=== PATIENT | female | born 1955 | race Caucasian/White ===

== ENCOUNTER 2017-01-24 05:42 | Outpatient (CLI) | payer MEDICARE ==
[~2017-01-24] VITALS: Ht 165.1 cm; Wt 94.8 kg
[~2017-01-24 05:42] MED LIST: ADAL40PE INJ; ALPR1TAB7 PO; ALPR2TAB2 PO; AMOX500C2 PO; AMOX500T2 PO; AMPH30TA2 PO; ATOR20TA66 PO; Acetaminophen PO; BUPR150T7 PO; BUPR150T9 PO; CANA100T PO; CEPH500C PO; DEXT30TA12 PO; DICL75TA2 PO; HCT25T PO; HYDR-3812 PO; HYDR-3874 PO; HYDR1CAP2 PO; INSU100I14 SQ; INSU100I16 SQ; INSU100I29 SQ; LISI10TA2 PO; LISINOPRIL; MELO-195 PO; MULT-974 PO; NEOM10DR20 EACH EAR; NOVLOG; NS.65NA45; OXYC-197 PO; POTA99TA15 PO; SULF1TAB38 PO; TRAM50TA2 PO; TRM50T PO; VENL75TA6 PO; [UNRECOGNIZED DRUG - OTHER]
[2017-01-24] MEDS ORDERED: AMPH20TA2 PO (12:55)
[2017-01-24] MEDS ORDERED: ASCO1CAP4 PO (13:02)
[2017-01-24] MEDS ORDERED: GLUC-144 PO (13:02)
[2017-01-24] MEDS ORDERED: ESCI10TA PO (13:02)
[2017-01-24] MEDS ORDERED: LACT1CAP62 PO (13:02)
[2017-01-24] MEDS ORDERED: VIT1CAPS44 PO (13:02)
== END 2017-01-24 13:04 ==
LOC: PREOP 05:42
PROVIDERS: ATTEND Surgery Pediatric Surgery
DX: Z01.818 Encounter for other preprocedural examination (principal); K21.9 Gastro-esophageal reflux disease without esophagitis; R19.5 Other fecal abnormalities

== ENCOUNTER 2017-01-26 10:28 | Day surgery (SDC) | payer MEDICARE ==
[~2017-01-26] VITALS: Ht 165.1 cm; Wt 94.8 kg
[~2017-01-26 10:28] MED LIST changes: +AMPH20TA2 PO; +ASCO1CAP4 PO; +ESCI10TA PO; +GLUC-144 PO; +LACT1CAP62 PO; +VIT1CAPS44 PO
[2017-01-26 10:35] VITALS: BP 135/68
[2017-01-26] MEDS ORDERED: FLUMAZENIL (ROMAZICON) 0.1 MG/ML 5 ML VIAL INJ PRN (10:45)
[2017-01-26] MEDS ORDERED: HURRICAINE EXT TUBE (BENZOCAINE) XX PRN (10:45)
[2017-01-26] MEDS ORDERED: LIDOCAINE JELLY 2% (XYLOCAINE) 5 ML TUBE MM PRN (10:45)
[2017-01-26] MEDS ORDERED: NALOXONE 0.4 MG/ML 1 ML (NARCAN) VIAL IVP PRN (10:45)
[2017-01-26] MEDS ORDERED: NS IV 500 ML 500 ML IV PRN (10:50)
--- NOTE | 2017-01-26 11:18 | Conscious Sedation/ASA ---
Conscious Sedation Pre-Proced Time Reviewed: 11:00 ASA Class: 3 Airway Mallampati Classification: (big sandy appropriate class) I. II. III, IV Lungs Heart ASA score ASA 1: a normal healthy patient ASA 2: a patient with a mild systemic disease (mid diabetes, controlled hypertension, obesity ASA 3: a patient with a severe systemic disease that limits activity (angina , COPD, prior Myocardial infarction) ASA 4: a patient with an incapacitating disease that is a constant threat to life (CHF, renal failure) ASA 5: a moribund patient not expected to survive 24 hrs. (ruptured aneurysm) ASA 6: a declared brain patient whose organs are being harvested. For emergent operations, add the letter E after the classification Grade 3 Sedation Plan: Analgesia, Amnesia, Plan communicated to team members, Discussed options with patient/fam, Discussed risks with patient/fam Note The patient is an appropriate candidate to undergo the planned procedure, sedation, and anesthesia. The patient immediately re-assessed prior to indication. PATRICA LARSON MD Jan 26, 2017 11:18 am
--- NOTE | 2017-01-26 11:18 | Progress Note-Pre Operative ---
Pre-Operative Progress Note H&P Reviewed The H&P was reviewed, patient examined and no changes noted. Date H&P Reviewed: Jan 26, 2017 Time H&P Reviewed: 11:00 Pre-Operative Diagnosis: dysphagia, dark tarry stools PATRICA LARSON MD Jan 26, 2017 11:18 am
[2017-01-26] MEDS ORDERED: fentaNYL INJECTION 100 MCG/2 ML AMP ONE ×2 (11:28→11:29)
[2017-01-26] MEDS ORDERED: LIDOCAINE JELLY 2% (XYLOCAINE) 5 ML TUBE ONE (11:28)
[2017-01-26] MEDS ORDERED: MIDAZOLAM 2 MG/2 ML (VERSED) VIAL ONE ×5 (11:29)
[2017-01-26] MEDS ORDERED: HURRICAINE EXT TUBE (BENZOCAINE) ONE (11:29)
[2017-01-26] MEDS ORDERED: HYDROcodone/APAP 5 MG/325 MG (LORTAB) TAB PO PRN (11:30)
[2017-01-26] MEDS ORDERED: ONDANSETRON 4 MG/2 ML (SDV) Z0FRAN IV PRN (11:30)
[2017-01-26] MEDS ORDERED: ACETAMINOPHEN 325 MG TABLET/CAPLET (TYLENOL) PO PRN (11:30)
[2017-01-26] MEDS ORDERED: morphine INJ 10 MG/ML 1ML (SYR OR VIAL) IV PRN (11:30)
[2017-01-26] MEDS: MIDAZOLAM 2 MG/2 ML (VERSED) VIAL IVP PRN ×5 (12:16→12:40)
[2017-01-26] MEDS: fentaNYL INJECTION 100 MCG/2 ML AMP IVP PRN ×4 (12:17→12:39)
--- NOTE | 2017-01-26 13:16 | Progress Note-Post Operative ---
Post-Operative Progess Note Surgeon (s)/Promotions Intern (s) Surgeon PATRICA LARSON MD Promotions Intern: none Pre-Operative Diagnosis dysphagia, dark tarry stools Post-Operative Diagnosis reflux esophagitis(class B-C), normal gastrogastric anastomosis, moderate gastritis. chronic stage 2 ext and int hemorrhoids. Post-Op Procedure Note Date of Procedure: Jan 26, 2017 Name of Procedure Performed: EGD with bx. Colonoscopy. Description of the Procedure: EGD with bx. Colonoscopy. Findings of the Procedure . Anesthesia Type CS Estimated blood loss (mL): minimal Specimen(s) collected/removed GE jxn, antrum PATRICA LARSON MD Jan 26, 2017 1:16 pm
[2017-01-26] MEDS ORDERED: PANT40TA2 PO (13:17)
--- NOTE | 2017-01-26 13:17 | Discharge Inst-Surgical ---
D/C Lap Instructions-KIDO New, Converted, or Re-Newed RX: RX on Chart Follow Up PRN Activity as tolerated High Fiber Diet 25g or more per day Avoid Alcohol, Caffeine, Spicy [place] and Acid foods. Drink 64 fluid oz or more of fluids per day. Symptoms to Report: Fever over 101 degree F, Nausea/Vomiting If any problems/questions: Contact your physician or go to Emergency Room PATRICA LARSON MD Jan 26, 2017 1:17 pm
[2017-01-26 13:25] VITALS: BP 125/73
[2017-01-26 13:55] VITALS: BP 139/79
[2017-01-26 13:57] VITALS: BP 139/79
--- NOTE | 2017-01-27 06:47 | OPERATIVE REPORT ---
PROCEDURE PHYSICIAN: PATRICA LARSON DATE OF PROCEDURE: 01/26/2017 ATTENDING PRIMARY CARE PHYSICIAN: Dr. Bruce Carcamo. PREOPERATIVE DIAGNOSES: 1. Gastroesophageal reflux disease. 2. Dysphagia. 3. Dark tarry stools. POSTOPERATIVE DIAGNOSES: EGD: 1. Chronic between class B and C reflux esophagitis. 2. Normal-appearing gastrogastric anastomosis with no marginal ulcers. 3. Moderate severity gastritis at the antrum of the stomach, no active bleeding. COLONOSCOPY: 1. Chronic, stage II external and internal hemorrhoids. 2. The remainder of the rectum and colon were normal. PROCEDURES: 1. EGD with biopsy. 2. Colonoscopy. SURGEON: Dr. Larson. ANESTHESIA: Conscious sedation. ESTIMATED BLOOD LOSS: Minimal. FINDINGS: EGD: 1. Reflux esophagitis, between class B and C. 2. Normal gastrogastric anastomosis with no marginal ulcerations, as well as no active bleeding. 3. There was a moderate severity gastritis at the antrum. 4. No formal ulcers or any active bleeding. 5. Biopsy was taken of the stomach antrum, with forceps with visualization of good hemostasis. EGD: The endoscope was then advanced through the pylorus and first and second portions of duodenum which appeared normal with no distal obstructions. The endoscope was then slowly withdrawn while taking second look and suctioning residual air with no additional findings. The patient tolerated this portion the procedure well. The EGD did not show any marginal ulcerations or any strictures and we feel that her dysphagia and symptoms are likely secondary to lifestyle and she needs to proceed with the necessary changes including smaller, more frequent meals, avoidance of eating at night, as well as head elevation while laying supine. Also weight management strategies would also help her symptoms. We will also start her on Protonix 40 mg daily. COLONOSCOPY: Under the same conscious sedation anesthesia, we then proceeded with the colonoscopy portion the procedure. A digital rectal examination was performed, which revealed chronic, stage II external and internal hemorrhoids, not actively edematous or inflamed and no bleeding. Normal sphincter tone was felt and there were no palpable masses. The endoscope was then intubated into the anus and the rectum gently insufflated. The endoscope was then advanced through the valves of Cordero the rectum with no polyps or any neoplasms identified. We then proceeded through the sigmoid colon where no diverticulosis identified. The endoscope was advanced through the remainder of the descending, transverse, and ascending colon to the cecum. These segments were normal as well. There were no polyps or any neoplasms identified, as well as no bleeding sources or any inflammation. The endoscope was then slowly withdrawn while taking a second look and suctioning residual air with no additional findings. The patient tolerated this portion the procedure well. We will have her continue with medical management with a high fiber diet with at least 25 to 30 grams of fiber per day, as well as a minimum was 64 fluid ounces of water daily to promote soft stools on a daily basis. Job ID: [id number] Dictated Date: 01/26/2017 13:09:07 Machine Stone Polisher Date: 01/27/2017 06:39:27 / darien
--- OUTSIDE RECORDS SUMMARY | 2017-02-20 04:18 | XMS REPORT ---
Author CAROLINA Berumen [facility] eClinicalWorks Address Unknown Phone Unavailable Care Team Providers Care Hydro Excavation Operator Name Role Phone CAROLINA BEAVER CP Unavailable Allergies, Adverse Reactions, Alerts Substance Reaction Event Type Methylphenidate twitching Drug Allergy Byetta 5 MCG Pen stomach upset Drug Allergy Bactrim hallucinations Drug Allergy Problems Problem Type Condition ICD-9 Code Onset Dates Condition Status Problem Ulcer of other part of foot 707.15 Active Problem Need for prophylactic vaccination and inoculation, Influenza V04.81 Active Problem Essential hypertension, benign 401.1 Active Problem DM w/o complication type II 250.00 Active Problem Encounter for long-term (current) use of other medications V58.69 Active Problem PAD (peripheral artery disease) 443.9 Active Problem Acute sinusitis, unspecified 461.9 Active Problem Adjustment disorder with depressed mood 309.0 Active Problem DTAP TEST V06.1 Active Problem Impacted cerumen 380.4 Active Assessment PAD (peripheral artery disease) 443.9 Active Assessment Dyspepsia 536.8 Active Problem Unspecified conductive hearing loss 389.00 Active Problem Pain in or around eye 379.91 Active Assessment DM w/o complication type II 250.00 Active Problem Major depressive disorder, recurrent episode, in partial or unspecified remission 296.35 Active Problem Other psoriasis 696.1 Active Problem Major depressive disorder, recurrent episode, severe, without mention of psychotic behavior 296.33 Active Medications Medication Code System Code Instructions Start Date End Date Status Dosage Sklice [facility] [address]-44 0.5 % Externally May 13, 2015 as directed Invokana [facility] [address]-99 100 mg December 30, 2014 1 Tablet by Oral route 1 time per day Wellbutrin XL [facility] [address]-39 150 MG Orally Once a day take one tab daily X one week, then 2 tabs daily May 13, 2015 2 tablet in the morning NovoLog Flexpen [facility] [address]-52 100 unit/mL Oct 29, 2014 inject 10 Units by Subcutaneous route before meals 3 times per day Adderall [facility] [address]-28 30 MG Orally 2 times a day for ADHD January 13, 2015 1 tablet Lipitor [facility] [address]-82 20 mg March 14, 2014 1 tablet by Oral route 1 time per day Metformin HCl [facility] 73520613182 500 MG TAKE ONE TABLET BY MOUTH TWICE DAILY WITH FOOD Levsin/SL [facility] [address]-27 0.125 MG Sublingual 3 times a day March 17, 2015 1 tablet under the tongue and allow to dissolve before meals as needed Zantac 150 Maximum Strength [facility] [address]-47 150 MG Orally Twice a day Jun 23, 2015 1 tablet Levemir Flexpen [facility] 0 100 unit/mL (3 mL) Oct 29, 2014 33 Unit by Subcutaneous route 1 time per day Xanax [facility] [address]-28 1 MG Orally Twice a day March 17, 2015 1 tablet Tramadol HCl [facility] [address]-56 50 MG Orally every 6 hrs TAKE ONE TABLET BY MOUTH EVERY 6 HOURS NEEDED FOR PAIN Lisinopril [facility] 42383640317 10 MG TAKE ONE TABLET BY MOUTH ONCE DAILY (MUST HAVE APPOINTMENT FOR ADDITIONAL REFILLS) Procedures Procedure Coding System Code Date [facility] VISIT ESTABLISHED PATIENT CPT-4 G0467 Jun 23, 2015 Office Visit, Est Pt., Level 4 CPT-4 87661 Jun 23, 2015 GLYCATED HEMOGLOBIN TEST CPT-4 88109 Jun 23, 2015 Vital Signs Date/Time: Jun 23, 2015 Temperature 97.9 F Weight 226.8 lbs Height 65 in BMI 37.74 Index Blood Pressure Diastolic 76 mmHg Blood Pressure Systolic 124 mmHg Cardiac Monitoring Heart Rate 100 bpm Results Name Result Date Reference Range Unit Abnormality Flag A1C (IN HOUSE) Summary Purpose eClinicalWorks Submission
--- OUTSIDE RECORDS SUMMARY | 2017-02-20 04:19 | XMS REPORT ---
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
--- OUTSIDE RECORDS SUMMARY | 2017-02-20 04:19 | XMS REPORT ---
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
--- OUTSIDE RECORDS SUMMARY | 2017-02-20 04:19 | XMS REPORT ---
Author Author WELLINGTON CLINE Organization eClinicalWorks Address Unknown Phone Unavailable Care Team Providers Care Power Distributor Name Role Phone WELLINGTON CLINE Unavailable Allergies No Known Allergies Problems Problem Type Condition Code Onset Dates Condition Status Problem Impacted cerumen 380.4 Active Problem Encounter for long-term (current) use of other medications V58.69 Active Problem DTAP TEST V06.1 Active Problem Tobacco abuse Z72.0 Active Problem Major depressive disorder, recurrent episode, unspecified severity F33.9 Active Problem Psoriasis L40.9 Active Problem PAD (peripheral artery disease) 443.9 Active Problem DM w/o complication type II 250.00 Active Problem Generalized anxiety disorder F41.1 Active Problem Diabetes E11.9 Active Problem Other psoriasis 696.1 Active Problem Unspecified conductive hearing loss 389.00 Active Problem Essential hypertension, benign 401.1 Active Problem Need for prophylactic vaccination and inoculation, Influenza V04.81 Active Problem Pain in or around eye 379.91 Active Problem Adjustment disorder with depressed mood 309.0 Active Problem Ulcer of other part of foot 707.15 Active Problem Acute sinusitis, unspecified 461.9 Active Medications Medication Code System Code Instructions Start Date End Date Status Dosage Adderall [facility] [address]-13 30 MG Orally 2 times a day for ADHD 1 tablet Xanax [facility] [address]-48 1 MG Orally Twice a day 1 tablet Results No Known Results Summary Purpose eClinicalWorks Submission
--- OUTSIDE RECORDS SUMMARY | 2017-02-20 04:19 | XMS REPORT ---
Author Author LAURA MOSHER Organization eClinicalWorks Address Unknown Phone Unavailable Care Team Providers Care Machinist 2Nd Shift Name Role Phone LAURA MOSHER CP Unavailable Allergies No Known Allergies Problems Problem Type Condition Code Onset Dates Condition Status Problem Diabetes E11.9 Active Problem Major depressive disorder, recurrent episode, unspecified severity F33.9 Active Problem Generalized anxiety disorder F41.1 Active Problem long-term 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 Active Problem Arthritis M19.90 Active Problem Type 2 diabetes mellitus with hyperglycemia E11.65 Active Problem Psoriasis L40.9 Active Problem Tobacco abuse Z72.0 Active Problem Back pain M54.9 Active Problem 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 I10 Active Medications Medication Code System Code Instructions Start Date End Date Status Dosage Alprazolam [facility] [address]-55 1 MG Orally 4 times daily as needed March 11, 2016 1 tablet Results No Known Results Summary Purpose eClinicalWorks Submission
--- OUTSIDE RECORDS SUMMARY | 2017-02-20 04:19 | XMS REPORT ---
Author Author LAURA MOSHER [facility] eClinicalWorks Address Unknown Phone Unavailable Care Team Providers Care Plastic Welding Machine Operator Name Role Phone LAURA MOSHER CP Unavailable Allergies No Known Allergies Problems Problem Type Condition Code Onset Dates Condition Status Problem Diabetes E11.9 Active Problem Major depressive disorder, recurrent episode, unspecified severity F33.9 Active Problem Generalized anxiety disorder F41.1 Active Problem [facility] 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 Active Problem Arthritis M19.90 Active Problem Type 2 diabetes mellitus with hyperglycemia E11.65 Active Problem Psoriasis L40.9 Active Problem Tobacco abuse Z72.0 Active Problem Back pain M54.9 Active Problem 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 I10 Active Medications Medication Code System Code Instructions Start Date End Date Status Dosage Adderall [facility] 82463764554 30 MG Orally Once a day 1 tablet Results No Known Results Summary Purpose eClinicalWorks Submission
--- OUTSIDE RECORDS SUMMARY | 2017-02-20 04:19 | XMS REPORT ---
Author Author LAURA MOSHER [facility] Address [address] [place] [address] Care Team Providers Care Supply Requirements Officer Name Role Phone LAURA MOSHER Unavailable PROBLEMS Type Condition ICD9-CM Code TLT61-MI Code Onset Dates Condition Status SNOMED Code Problem Diabetes E11.9 Active 40422535 Problem Major depressive disorder, recurrent episode, unspecified severity F33.9 Active 80610931 Problem Generalized anxiety disorder F41.1 Active 22708531 Problem termite control representative 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 Active 880259572 Problem Arthritis M19.90 Active 4472136 Problem Psoriasis L40.9 Active 2146719 Problem Tobacco abuse Z72.0 Active 13305178 Problem Back pain M54.9 Active 232739943 Problem 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 I10 Active 84305145 ALLERGIES Unknown Allergies SOCIAL HISTORY No smoking Hx information available PLAN OF CARE VITAL SIGNS MEDICATIONS Medication Instructions Dosage Frequency Start Date End Date Duration Status Adderall 30 MG Orally. will refill after appt 07/22/2016 Once a day 1 tablet 24h Active RESULTS No Results PROCEDURES No Known procedures IMMUNIZATIONS No Known Immunizations
--- OUTSIDE RECORDS SUMMARY | 2017-02-20 04:19 | XMS REPORT ---
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 Active Problem Arthritis M19.90 Active Problem Type 2 diabetes mellitus with hyperglycemia E11.65 Active Problem Psoriasis L40.9 Active Problem Tobacco abuse Z72.0 Active Problem Back pain M54.9 Active Problem 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 I10 Active Medications Medication Code System Code Instructions Start Date End Date Status Dosage Alprazolam [facility] [address]-25 1 MG Orally 4 times daily as needed March 11, 2016 1 tablet Tramadol HCl [facility] [address]-93 50 mg Orally, bubble pack for long term every 6 hrs 1 tablet Percocet [facility] [address]-25 5-325 MG Orally, long term pt every 4 April 1 tablet Results No Known Results Summary Purpose eClinicalWorks Submission
--- OUTSIDE RECORDS SUMMARY | 2017-02-20 04:19 | XMS REPORT ---
Author Author WELLINGTON CLINE [facility] eClinicalWorks Address Unknown Phone Unavailable Care Team Providers Care Helicopter Dispatcher Name Role Phone WELLINGTON CLINE CP Unavailable Allergies, Adverse Reactions, Alerts Substance Reaction Event Type Methylphenidate twitching Drug Allergy Byetta 5 MCG Pen stomach upset Drug Allergy Bactrim hallucinations Drug Allergy Problems Problem Type Condition Code Onset Dates Condition Status Problem Adjustment disorder with depressed mood 309.0 Active Problem Impacted cerumen 380.4 Active Problem Acute sinusitis, unspecified 461.9 Active Problem Generalized anxiety disorder F41.1 Active Problem Diabetes E11.9 Active Problem Major depressive disorder, recurrent episode, unspecified severity F33.9 Active Problem Encounter for long-term (current) use of other medications V58.69 Active Problem DTAP TEST V06.1 Active Problem PAD (peripheral artery disease) 443.9 Active Problem DM w/o complication type II 250.00 Active Assessment Generalized anxiety disorder F41.1 Active Assessment Major depressive disorder, recurrent, moderate F33.1 Active Assessment Attention-deficit hyperactivity disorder, combined type F90.2 Active Problem Pain in or around eye 379.91 Active Problem Ulcer of other part of foot 707.15 Active Problem Other psoriasis 696.1 Active Problem Essential hypertension, benign 401.1 Active Problem Unspecified conductive hearing loss 389.00 Active Problem Need for prophylactic vaccination and inoculation, Influenza V04.81 Active Medications Medication Code System Code Instructions Start Date End Date Status Dosage Xanax [facility] [address]-63 1 MG Orally 4 times a day 1 tablet Rexulti [facility] [address]-84 0.5 MG Orally Once a day Oct 14, 2015 1 tablet Lisinopril [facility] 01729669038 10 MG TAKE ONE TABLET BY MOUTH ONCE DAILY (MUST HAVE APPOINTMENT FOR ADDITIONAL REFILLS) Levsin/SL [facility] 79265356486 0.125 MG Sublingual 3 times a day 1 tablet under the tongue and allow to dissolve before meals as needed Zantac 150 Maximum Strength [facility] [address]-92 150 MG Orally Twice a day Jun 23, 2015 1 tablet Adderall [facility] [address]-45 30 MG Orally 2 times a day for ADHD Dr Carcamo to sign for Samantha 1 tablet Wellbutrin XL [facility] [address]-29 150 MG Orally Once a day take one tab daily X one week, then 2 tabs daily 2 tablet in the morning Tramadol HCl [facility] [address]-66 50 MG Orally every 6 hrs TAKE ONE TABLET BY MOUTH EVERY 6 HOURS NEEDED FOR PAIN NovoLog Flexpen [facility] [address]-78 100 UNIT/ML Oct 29, 2014 inject 10 Units by Subcutaneous route before meals 3 times per day Procedures Procedure Coding System Code Date Psych diagnostic evaluation w/medical services, established patient CPT-4 69690 Oct 14, 2015 [facility] VISIT MENTAL HEALTH ESTAB PT CPT-4 G0470 Oct 14, 2015 Vital Signs Date/Time: Oct 14, 2015 Cardiac Monitoring Heart Rate 80 bpm Weight 226.0 lbs Height 65 in BMI 37.60 Index Blood Pressure Diastolic 74 mmHg Blood Pressure Systolic 126 mmHg Results No Known Results Summary Purpose eClinicalWorks Submission
--- OUTSIDE RECORDS SUMMARY | 2017-02-20 04:19 | XMS REPORT ---
Author Author LAURA MOSHER Organization eClinicalWorks Address Unknown Phone Unavailable Care Team Providers Care Resin Painter Name Role Phone LAURA MOSHER Unavailable Allergies No Known Allergies Problems Problem Type Condition Code Onset Dates Condition Status Problem Diabetes E11.9 Active Problem Major depressive disorder, recurrent episode, unspecified severity F33.9 Active Problem Generalized anxiety disorder F41.1 Active Problem occupational health manager 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 Active Problem Arthritis M19.90 Active Problem Type 2 diabetes mellitus with hyperglycemia E11.65 Active Problem Psoriasis L40.9 Active Problem Tobacco abuse Z72.0 Active Problem Back pain M54.9 Active Problem 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 I10 Active Medications Medication Code System Code Instructions Start Date End Date Status Dosage Adderall [facility] [address]-38 20 mg Orally Once a day Aug 26, 2016 1 tablet in the morning Results No Known Results Summary Purpose eClinicalWorks Submission
--- OUTSIDE RECORDS SUMMARY | 2017-02-20 04:19 | XMS REPORT ---
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 Active 920178643 Problem Arthritis M19.90 Active 9019838 Problem Psoriasis L40.9 Active 8769966 Problem Tobacco abuse Z72.0 Active 56463348 Problem Back pain M54.9 Active 185052487 Problem 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 I10 Active 60763235 ALLERGIES Substance Reaction Event Type Date Status Methylphenidate twitching Drug Allergy Jul, Active Byetta 5 MCG Pen stomach upset Drug Allergy Jul, Active SOCIAL HISTORY No smoking Hx information available PLAN OF CARE VITAL SIGNS Height 65 in 2016-07-12 Weight 223.4 lbs 2016-07-12 Heart Rate 84 bpm 2016-07-12 Respiratory Rate 20 2016-07-12 BMI 37.17 kg/m2 2016-07-12 Blood pressure systolic 131 mmHg 2016-07-12 Blood pressure diastolic 80 mmHg 2016-07-12 MEDICATIONS Medication Instructions Dosage Frequency Start Date End Date Duration Status Adderall 30 MG Orally Once a day 1 tablet 24h Active Alprazolam 1 MG Orally 4 times daily as needed 1 tablet February, Active Escitalopram Oxalate 10 MG Orally Once a day 1 tablet 24h May, 30 day(s) Active Wellbutrin XL 150 MG Orally, bubble pack for residential Once a day 2 tablets in the morning and 1 tablet early afternoon 24h 30 days Active Nystatin 738539 UNIT/ML Mouth/Throat 4 times a day 5 ml 6h Dec, Active BD Insulin Syringe 30G X 1/2 subcutaneously 4 times a day use with insulin 6h May, Active NovoLog 100 UNIT/ML Subcutaneous 3 times a day 8 units 8h Apr, Active Levemir 100 UNIT/ML Subcutaneous Once a day 38 units 24h Apr, Active Invokana 100 MG Orally, bubble pack for residential Once a day 1 tablet 24h Active Lisinopril 10 MG TAKE ONE TABLET BY MOUTH ONCE DAILY (MUST HAVE APPOINTMENT FOR ADDITIONAL REFILLS) 30 Active Multivitamin Adult - Orally, bubble pack for residential Once a day 1 tablet 24h Active Tramadol HCl 50 mg Orally every 6 hrs 1 tablet as needed 6h Jul, Active RESULTS Name Result Date Reference Range A1C (IN HOUSE) 2016-07-12 A1C IN HOUSE 8.3 4.3 - 5.6 % Previous A1c 9.1 Lot 0620 Exp date PROCEDURES Procedure Date Ordered Related Diagnosis Body Site GLYCATED HEMOGLOBIN TEST Jul 12, 2016 [facility] VISIT ESTABLISHED PATIENT Jul 12, 2016 Office Visit, Est Pt., Level 3 Jul 12, 2016 IMMUNIZATIONS No Known Immunizations
--- OUTSIDE RECORDS SUMMARY | 2017-02-20 04:20 | XMS REPORT ---
Author CAROLINA Berumen [facility] eClinicalWorks Address Unknown Phone Unavailable Care Team Providers Care Geek Squad Agent Name Role Phone CAROLINA BEAVER Unavailable Allergies No Known Allergies Problems Problem Type Condition Code Onset Dates Condition Status Problem Diabetes E11.9 Active Problem Major depressive disorder, recurrent episode, unspecified severity F33.9 Active Problem Generalized anxiety disorder F41.1 Active Problem intermission coordinator 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 Active Problem Arthritis M19.90 Active Problem Type 2 diabetes mellitus with hyperglycemia E11.65 Active Problem Psoriasis L40.9 Active Problem Tobacco abuse Z72.0 Active Problem Back pain M54.9 Active Problem 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 I10 Active Assessment Nausea R11.0 Active Assessment Generalized anxiety disorder F41.1 Active Assessment Diabetes E11.9 Active Medications Medication Code System Code Instructions Start Date End Date Status Dosage NovoLog [facility][NOTE 3] [address]-52 100 UNIT/ML Subcutaneous 3 times a day May 28, 2016 8 units Invokana [facility][NOTE 3] 62413228615 100 MG Orally, bubble pack for senior care Once a day 1 tablet Nystatin [facility][NOTE 3] [address]-28 490393 UNIT/ML Mouth/Throat 4 times a day Dec 5 ml Alprazolam [facility][NOTE 3] [address]-40 1 MG Orally 4 times daily as needed March 11, 2016 1 tablet Wellbutrin XL [facility][NOTE 3] [address]-81 150 MG Orally, bubble pack for senior care Once a day 2 tablets in the morning and 1 tablet early afternoon Levemir [facility][NOTE 3] [address]-92 100 UNIT/ML Subcutaneous Once a day May 28, 2016 33 units Multivitamin Adult [facility][NOTE 3] [address] - Orally, bubble pack for senior care Once a day 1 tablet Diflucan [facility][NOTE 3] [address]-94 150 MG Orally Once a day, repeat in 4-5 days if sx persist Jun 08, 2016 Jun 10, 2016 1 tablet Promethazine HCl [facility][NOTE 3] [address]-31 25 MG Orally every 4-6 hours as needed Jun 10, 2016 1 tablet as needed Percocet [facility][NOTE 3] [address]-62 5-325 MG Orally, senior care pt every 4 April 1 tablet Lisinopril [facility][NOTE 3] [address]-34 20 mg Orally, bubble pack for senior care Once a day 1 tablet Procedures Procedure Coding System Code Date Minor complication (15 mins) CPT-4 75961 Jun 10, 2016 Results No Known Results Summary Purpose eClinicalWorks Submission
--- OUTSIDE RECORDS SUMMARY | 2017-02-20 04:20 | XMS REPORT ---
Author Author VASILE PORTILLO [facility] eClinicalWorks Address Unknown Phone Unavailable Care Team Providers Care Tubular Riveter Name Role Phone VASILE PORTILLO CP Unavailable Allergies No Known Allergies Problems Problem Type Condition ICD-9 Code Onset Dates Condition Status Problem Major depressive disorder, recurrent episode, severe, without mention of psychotic behavior 296.33 Active Problem Essential hypertension, benign 401.1 Active Problem Ulcer of other part of foot 707.15 Active Problem Encounter for long-term (current) use of other medications V58.69 Active Problem DTAP TEST V06.1 Active Problem DM w/o complication type II 250.00 Active Problem Adjustment disorder with depressed mood 309.0 Active Problem Need for prophylactic vaccination and inoculation, Influenza V04.81 Active Problem Impacted cerumen 380.4 Active Problem Acute sinusitis, unspecified 461.9 Active Problem Other psoriasis 696.1 Active Problem Unspecified conductive hearing loss 389.00 Active Assessment Generalized anxiety disorder 300.02 Active Problem Pain in or around eye 379.91 Active Assessment Major depressive disorder, recurrent episode, moderate 296.32 Active Problem Major depressive disorder, recurrent episode, in partial or unspecified remission 296.35 Active Medications No Known Medications Procedures Procedure Coding System Code Date Psychotherapy, patient &/family, 45 minutes, established patient CPT-4 22961 Jun 19, 2015 Results No Known Results Summary Purpose eClinicalWorks Submission
--- OUTSIDE RECORDS SUMMARY | 2017-02-20 04:20 | XMS REPORT ---
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 Active Problem Arthritis M19.90 Active Problem Type 2 diabetes mellitus with hyperglycemia E11.65 Active Problem Psoriasis L40.9 Active Problem Tobacco abuse Z72.0 Active Problem Back pain M54.9 Active Problem 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 I10 Active Medications Medication Code System Code Instructions Start Date End Date Status Dosage Tramadol HCl [facility] [address]-90 50 MG Orally every 6 hrs 1 tablet as needed Percocet [facility] [address]-02 5-325 MG Orally every 4 hrs (#60) May 22, 2016 1 tablet as needed Levemir Flexpen [facility] 69254100403 100 UNIT/ML INJECT 33 UNITS SUBCUTANEOUSLY DAILY Wellbutrin XL [facility] [address]-19 150 MG Orally Once a day 2 tablets in the morning and 1 tablet early afternoon Alprazolam [facility] [address]-28 1 MG Orally 4 times daily as needed March 11, 2016 1 tablet Adderall [facility] 86873567346 30 MG Orally Once a day 1 tablet Multivitamin Adult [facility] [address] - Orally Once a day 1 tablet Humira Pen [facility] [address]-16 40 MG/0.8ML Subcutaneous every 2 weeks February 25, 2016 Nov 21, 2016 0.8 ml NovoLog [facility] [address]-01 100 UNIT/ML Subcutaneous 3 times a day 8 units Lipitor [facility] 13858359896 20 MG TAKE ONE TABLET BY MOUTH ONCE DAILY Invokana [facility] 98858893382 100 MG TAKE ONE TABLET BY MOUTH DAILY Results No Known Results Summary Purpose eClinicalWorks Submission
--- OUTSIDE RECORDS SUMMARY | 2017-02-20 04:20 | XMS REPORT ---
Author Author LARISA JAVED Organization eClinicalWorks Address Unknown Phone Unavailable Care Team Providers Care Powerhouse Mechanic Name Role Phone LARISA JAVED CP Unavailable Allergies, Adverse Reactions, Alerts Substance Reaction Event Type Methylphenidate twitching Drug Allergy Byetta 5 MCG Pen stomach upset Drug Allergy Bactrim hallucinations Drug Allergy Problems Problem Type Condition Code Onset Dates Condition Status Problem Diabetes E11.9 Active Assessment Right otitis externa H60.91 Active Problem Back pain M54.9 Active Problem 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 I10 Active Problem Arthritis M19.90 Active Problem Major depressive disorder, recurrent episode, unspecified severity F33.9 Active Problem Generalized anxiety disorder F41.1 Active Problem Psoriasis L40.9 Active Problem Tobacco abuse Z72.0 Active Medications Medication Code System Code Instructions Start Date End Date Status Dosage ALPRAZolam ER [facility] [address]-81 3 MG Orally at 8PM every lencho. February 19, 2016 1 tablet Invokana [facility] [address]-41 100 MG Orally Once a day 1 tablet Amoxicillin [facility] [address]-52 500 MG Orally every 12 hrs 1 tablet Wellbutrin XL [facility] [address]-92 150 MG Orally Once a day 2 tablets in the morning and 1 tablet early afternoon Lipitor [facility] 25761793021 20 MG TAKE ONE TABLET BY MOUTH ONCE DAILY Levemir Flexpen [facility] 37059145220 100 UNIT/ML INJECT 33 UNITS SUBCUTANEOUSLY DAILY NovoLog [facility] [address]-02 100 UNIT/ML Subcutaneous 3 times a day 8 -10 units Percocet [facility] [address]-30 5-325 MG Orally every 6 hrs 1 tablet as needed Cortisporin-TC [facility] [address]-46 3.3-3-10-0.5 MG/ML Otic Three times a day March 02, 2016 5 drops into affected ear Adderall [facility] [address]-88 30 MG Orally 2 times a day for ADHD 1 tablet Procedures Procedure Coding System Code Date Office Visit, Est Pt., Level 3 CPT-4 70467 March 02, 2016 Vital Signs Date/Time: March 02, 2016 Temperature 99.4 F Weight 226.6 lbs Height 65 in BMI 37.70 Index Blood Pressure Diastolic 90 mmHg Blood Pressure Systolic 128 mmHg Cardiac Monitoring Heart Rate 96 bpm Results No Known Results Summary Purpose eClinicalWorks Submission
--- OUTSIDE RECORDS SUMMARY | 2017-02-20 04:20 | XMS REPORT ---
Author Author CAROLINA BEAVER [facility] eClinicalWorks Address Unknown Phone Unavailable Care Team Providers Care Master Carpenter Name Role Phone CAROLINA BEAVER CP Unavailable Allergies No Known Allergies Problems [...] V06.1 Active Problem Impacted cerumen 380.4 Active Problem Unspecified conductive hearing loss 389.00 Active Problem Pain in or around eye 379.91 Active Problem Major depressive disorder, recurrent episode, in partial or unspecified remission 296.35 Active Problem Other psoriasis 696.1 Active Problem Major depressive disorder, recurrent episode, severe, without mention of psychotic behavior 296.33 Active Medications Medication Code System Code Instructions Start Date End Date Status Dosage NovoLog Flexpen NDC [address]-29 100 UNIT/ML Oct 29, 2014 inject 10 Units by Subcutaneous route before meals 3 times per day Levemir Flexpen NDC 0 100 unit/mL (3 mL) Oct 29, 2014 33 Unit by Subcutaneous route 1 time per day Results No Known Results Summary Purpose eClinicalWorks Submission
--- OUTSIDE RECORDS SUMMARY | 2017-02-20 04:20 | XMS REPORT ---
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 Active Problem Arthritis M19.90 Active Problem Type 2 diabetes mellitus with hyperglycemia E11.65 Active Problem Psoriasis L40.9 Active Problem Tobacco abuse Z72.0 Active Problem Back pain M54.9 Active Problem 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 I10 Active Assessment Generalized anxiety disorder F41.1 Active Assessment Attention-deficit hyperactivity disorder, predominantly hyperactive type F90.1 Active Assessment Major depressive disorder, recurrent episode, unspecified severity F33.9 Active Medications Medication Code System Code Instructions Start Date End Date Status Dosage Multivitamin Adult [facility] [address] - Orally, bubble pack for FDC Once a day 1 tablet NovoLog [facility] [address]-23 100 UNIT/ML Subcutaneous 3 times a day May 28, 2016 8 units Escitalopram Oxalate [facility] [address]-46 10 MG Orally Once a day Jun 24, 2016 1 tablet BD Insulin Syringe [facility] 8290-880778 30G X 1/2 subcutaneously 4 times a day Jun 21, 2016 use with insulin Alprazolam [facility] [address]-16 1 MG Orally 4 times daily as needed March 11, 2016 1 tablet Invokana [facility] 67413343315 100 MG Orally, bubble pack for FDC Once a day 1 tablet Adderall [facility] [address]-86 20 MG Orally Once a day Aug 26, 2016 1 tablet in the morning Lisinopril [facility] 30457265990 10 MG TAKE ONE TABLET BY MOUTH ONCE DAILY (MUST HAVE APPOINTMENT FOR ADDITIONAL REFILLS) Tramadol HCl [facility] [address]-99 50 mg Orally every 6 hrs Jul 12, 2016 1 tablet as needed Wellbutrin XL [facility] [address]-70 150 MG Orally 2 tabs every morning Levemir [facility] [address]-15 100 UNIT/ML Subcutaneous Once a day May 28, 2016 38 units Nystatin [facility] [address]-12 181844 UNIT/ML Mouth/Throat 4 times a day Dec 5 ml Procedures Procedure Coding System Code Date Office Visit, Est Pt., Level 3 CPT-4 79580 Aug 26, 2016 [facility] VISIT ESTABLISHED PATIENT CPT-4 G0467 Aug 26, 2016 Vital Signs Date/Time: Aug 26, 2016 Cardiac Monitoring Heart Rate 88 bpm Weight 234.8 lbs Height 65 in BMI 39.07 Index Blood Pressure Diastolic 80 mmHg Blood Pressure Systolic 138 mmHg Results No Known Results Summary Purpose eClinicalWorks Submission
--- OUTSIDE RECORDS SUMMARY | 2017-02-20 04:20 | XMS REPORT ---
Author Author CAROLINA BEAVER [facility] eClinicalWorks Address Unknown Phone Unavailable Care Team Providers Care Florist Name Role Phone CAROLINA BEAVER Unavailable Allergies No Known Allergies Problems Problem Type Condition Code Onset Dates Condition Status Problem Diabetes E11.9 Active Problem Major depressive disorder, recurrent episode, unspecified severity F33.9 Active Problem Generalized anxiety disorder F41.1 Active Problem assistant terminal manager 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 Active Problem Arthritis M19.90 Active Problem Type 2 diabetes mellitus with hyperglycemia E11.65 Active Problem Psoriasis L40.9 Active Problem Tobacco abuse Z72.0 Active Problem Back pain M54.9 Active Problem 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 I10 Active Medications No Known Medications Results No Known Results Summary Purpose eClinicalWorks Submission
--- OUTSIDE RECORDS SUMMARY | 2017-02-20 04:20 | XMS REPORT ---
Author Author VASILE PORITLLO [facility] eClinicalWorks Address Unknown Phone Unavailable Care Team Providers Care Poured Wall Foreman Name Role Phone VASILE PORTILLO CP Unavailable Allergies No Known Allergies Problems Problem Type Condition Code Onset Dates Condition Status Problem Encounter for long-term (current) use of other medications V58.69 Active Problem PAD (peripheral artery disease) 443.9 Active Problem DM w/o complication type II 250.00 Active Problem Tobacco abuse Z72.0 Active Assessment Major depressive disorder, recurrent episode, in partial or unspecified remission 296.35 Active Problem Major depressive disorder, recurrent episode, in partial or unspecified remission 296.35 Active Assessment Major depressive disorder, recurrent episode, unspecified severity F33.9 Active Assessment Generalized anxiety disorder 300.02 Active Problem Psoriasis L40.9 Active Problem Generalized anxiety disorder F41.1 Active Problem Diabetes E11.9 Active Problem Generalized anxiety disorder 300.02 Active Problem Major depressive disorder, recurrent episode, unspecified severity F33.9 Active Problem Pain in or around eye 379.91 Active Problem Ulcer of other part of foot 707.15 Active Problem Other psoriasis 696.1 Active Problem Unspecified conductive hearing loss 389.00 Active Problem Adjustment disorder with depressed mood 309.0 Active Problem Acute sinusitis, unspecified 461.9 Active Problem Essential hypertension, benign 401.1 Active Problem Impacted cerumen 380.4 Active Problem Need for prophylactic vaccination and inoculation, Influenza V04.81 Active Problem DTAP TEST V06.1 Active Medications Medication Code System Code Instructions Start Date End Date Status Dosage Wellbutrin XL [facility] [address]-55 150 MG Orally Once a day take one tab daily X one week, then 2 tabs daily 2 tablet in the morning Xanax [facility] [address]-58 1 MG Orally Twice a day 1 tablet Procedures Procedure Coding System Code Date Psychotherapy, patient &/family, 45 minutes, established patient CPT-4 16954 Dec 04, 2015 [facility] VISIT MENTAL HEALTH ESTAB PT CPT-4 G0470 Dec 04, 2015 Results No Known Results Summary Purpose eClinicalWorks Submission
--- OUTSIDE RECORDS SUMMARY | 2017-02-20 04:20 | XMS REPORT ---
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
--- OUTSIDE RECORDS SUMMARY | 2017-02-20 04:20 | XMS REPORT ---
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 [address]-40 30 MG Orally 2 times a day for ADHD [address] [facility] [address]-47 1 MG Orally Twice a day 1 tablet Wellbutrin XL [facility] [address]-65 150 MG Orally Once a day take one tab daily X one week, then 2 tabs daily 2 tablet in the morning Procedures Procedure Coding System Code Date Psychotherapy, patient &/family, 45 minutes, established patient CPT-4 65023 Oct 17, 2015 [facility] M[facility] HE[facility] ESTAB PT CPT-4 G0470 Oct 17, 2015 Results No Known Results Summary Purpose eClinicalWorks Submission
--- OUTSIDE RECORDS SUMMARY | 2017-02-20 04:20 | XMS REPORT ---
Author Author CAROLINA BEAVER [facility] eClinicalWorks Address Unknown Phone Unavailable Care Team Providers Care An/Sqq 89([id number] Sonar System Journeyman Name Role Phone CAROLINA BEAVER CP Unavailable Allergies No Known Allergies Problems Problem Type Condition Code Onset Dates Condition Status Problem Ulcer [...] Date End Date Status Dosage Tramadol HCl [facility] [address]-66 50 MG Orally every 6 hrs TAKE ONE TABLET BY MOUTH EVERY 6 HOURS NEEDED FOR PAIN Results No Known Results Summary Purpose eClinicalWorks Submission
--- OUTSIDE RECORDS SUMMARY | 2017-02-20 04:20 | XMS REPORT ---
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
--- OUTSIDE RECORDS SUMMARY | 2017-02-20 04:21 | XMS REPORT ---
Author Author KAYLA MCLEOD Organization [employer] Address Unknown Phone Unavailable Care Team Providers Care Tool Lapper Hand Name Role Phone KAYLA MCLEOD Unavailable Allergies No Known Allergies Problems Problem Type Condition Code Onset Dates Condition Status Problem Diabetes E11.9 Active Problem Back pain M54.9 Active Problem 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 I10 Active Problem Arthritis M19.90 Active Problem Major depressive disorder, recurrent episode, unspecified severity F33.9 Active Problem Generalized anxiety disorder F41.1 Active Problem Psoriasis L40.9 Active Problem Tobacco abuse Z72.0 Active Medications No Known Medications Results No Known Results Summary Purpose [employer] Submission
--- OUTSIDE RECORDS SUMMARY | 2017-02-20 04:21 | XMS REPORT ---
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 Active Problem Arthritis M19.90 Active Problem Type 2 diabetes mellitus with hyperglycemia E11.65 Active Problem Psoriasis L40.9 Active Problem Tobacco abuse Z72.0 Active Problem Back pain M54.9 Active Problem 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 I10 Active Assessment Attention-deficit hyperactivity disorder, predominantly hyperactive type F90.1 Active Assessment Major depressive disorder, recurrent episode, unspecified severity F33.9 Active Assessment Generalized anxiety disorder F41.1 Active Medications Medication Code System Code Instructions Start Date End Date Status Dosage Invokana [facility] 49663737322 100 MG Orally, bubble pack for intermediate Once a day 1 tablet Lisinopril [facility] [address]-15 20 mg Orally, bubble pack for intermediate Once a day 1 tablet Tramadol HCl [facility] [address]-98 50 mg Orally, bubble pack for intermediate every 6 hrs 1 tablet Lipitor [facility] [address]-17 20 mg Orally, bubble pack for intermediate Once a day 1 tablet Multivitamin Adult [facility] [address]-83183 - Orally, bubble pack for intermediate Once a day 1 tablet NovoLog [facility] [address]-84 100 UNIT/ML Subcutaneous 3 times a day May 28, 2016 8 units Levemir [facility] [address]-99 100 UNIT/ML Subcutaneous Once a day May 28, 2016 33 units Wellbutrin XL [facility] [address]-92 150 MG Orally, bubble pack for intermediate Once a day 2 tablets in the morning and 1 tablet early afternoon Results No Known Results Summary Purpose [employer]ClinicalWorks Submission
--- OUTSIDE RECORDS SUMMARY | 2017-02-20 04:21 | XMS REPORT ---
Author Author ARUNA COFFEY [employer] Address Unknown Phone Unavailable Care Team Providers Care Dispersion Mixer Name Role Phone ARUNA COFFEY CP Unavailable Allergies, Adverse Reactions, Alerts Substance Reaction Event Type Methylphenidate twitching Drug Allergy Byetta 5 MCG Pen stomach upset Drug Allergy Bactrim hallucinations Drug Allergy Problems Problem Type Condition Code Onset Dates Condition Status Problem Impacted cerumen 380.4 Active Problem Encounter for long-term (current) use of other medications V58.69 Active Problem DTAP TEST V06.1 Active Problem Tobacco abuse Z72.0 Active Assessment Cough R05 Active Problem Major depressive disorder, recurrent episode, unspecified severity F33.9 Active Assessment Tobacco abuse Z72.0 Active Problem Psoriasis L40.9 Active Problem PAD (peripheral artery disease) 443.9 Active Problem DM w/o complication type II 250.00 Active Problem Generalized anxiety disorder F41.1 Active Problem Diabetes E11.9 Active Problem Other psoriasis 696.1 Active Problem Unspecified conductive hearing loss 389.00 Active Assessment Psoriasis L40.9 Active Assessment URI (upper respiratory infection) J06.9 Active Problem Essential hypertension, benign 401.1 Active Problem Need for prophylactic vaccination and inoculation, Influenza V04.81 Active Problem Pain in or around eye 379.91 Active Problem Adjustment disorder with depressed mood 309.0 Active Problem Ulcer of other part of foot 707.15 Active Problem Acute sinusitis, unspecified 461.9 Active Medications Medication Code System Code Instructions Start Date End Date Status Dosage Azithromycin [facility] [address]-61 250 MG Orally Once a day Oct 22, 2015 Oct 27, 2015 2 tablets on the first day, then 1 tablet daily for 4 days Xanax [facility] [address]-93 1 MG Orally Twice a day 1 tablet Adderall [facility] [address]-30 30 MG Orally 2 times a day for ADHD 1 tablet Tessalon Perles [facility] [address]-30 100 MG Orally 2 times a day Oct 22, 2015 Nov 05, 2015 1 capsule as needed Wellbutrin XL [facility] [address]-92 150 MG Orally Once a day take one tab daily X one week, then 2 tabs daily 2 tablet in the morning Triamcinolone Acetonide [facility] [address]-18 0.025 % Externally Twice a day Oct 22, 2015 1 application to affected area Flonase ND 0 not defined Procedures Procedure Coding System Code Date Office Visit, Est Pt., Level 3 CPT-4 20567 Oct 22, 2015 DEPO MEDROL 40 MG/ML CPT-4 J1030 Oct 22, 2015 [facility] VISIT ESTABLISHED PATIENT CPT-4 G0467 Oct 22, 2015 DEXAMETHASONE 4MG/ML (PER 1 MG) CPT-4 J1100 Oct 22, 2015 THER/PROPH/DIAG INJ, SC/IM CPT-4 71035 Oct 22, 2015 Vital Signs Date/Time: Oct 22, 2015 Temperature 97.6 F Weight 229.2 lbs Height 65 in BMI 38.14 Index Blood Pressure Diastolic 70 mmHg Blood Pressure Systolic 122 mmHg Cardiac Monitoring Heart Rate 86 bpm Results No Known Results Summary Purpose [employer]ClinicalWorks Submission
--- OUTSIDE RECORDS SUMMARY | 2017-02-20 04:21 | XMS REPORT ---
Author ALBERTINA Quintero Organization [employer] Address Unknown Phone Unavailable Care Team Providers Care Csr Technician Name Role Phone ALBERTINA MOSHER CP Unavailable Allergies No Known Allergies [...] disorder F41.1 Active Assessment Major depressive disorder, recurrent episode, unspecified severity F33.9 Active Problem Pain in or around eye 379.91 Active Problem Ulcer of other part of foot 707.15 Active Problem Other psoriasis 696.1 Active Problem Essential hypertension, benign 401.1 Active Problem Unspecified conductive hearing loss 389.00 Active Problem Need for prophylactic vaccination and inoculation, Influenza V04.81 Active Medications No Known Medications Procedures Procedure Coding System Code Date Psychotherapy, patient &/family, 30 minutes, established patient CPT-4 50657 Sep 19, 2015 [facility] VISIT MENTAL HEALTH ESTAB PT CPT-4 G0470 Sep 19, 2015 Results No Known Results Summary Purpose [employer]ClinicalWorks Submission
--- OUTSIDE RECORDS SUMMARY | 2017-02-20 04:21 | XMS REPORT ---
Author Author WELLINGTON CLINE Organization [employer] Address Unknown Phone Unavailable Care Team Providers Care Echocardiograph Technician Name Role Phone WELLINGTON CLINE Unavailable Allergies [...] Problem Acute sinusitis, unspecified 461.9 Active Medications No Known Medications Results No Known Results Summary Purpose [employer]ClinicalWorks Submission
--- OUTSIDE RECORDS SUMMARY | 2017-02-20 04:24 | XMS REPORT | Continuity of Care Document ---
Author Author [facility]tr [facility] Address Unknown Phone Unavailable Allergies Active Description Code Type Severity Reaction Onset Reported/Identified Relationship to Patient Clinical Status Yes Byetta Prefilled Pen Drug Allergy 10/09/2010 Yes methylphenidate 20 mg tablet Drug Allergy 09/08/2012 Yes methylphenidate 20 mg tablet Drug Allergy N/A N/A 09/08/2012 Yes Sulfa (Sulfonamide Antibiotics) [id number] Drug Allergy Unknown N/A 08/26/2014 Yes morphine [id number] Drug Allergy Unknown NAUSEA 05/13/2016 Yes morphine [id number] Drug Allergy Mild NAUSEA 05/19/2016 Medications Problems Date Dx Coded Attending Type Code Diagnosis Diagnosed By 10/09/2010 CAROLINA BEAVER MD 250.02 DIABETES II UNCONTROLLED 10/09/2010 CAROLINA BEAVER MD 782.3 EDEMA 10/09/2010 EVERARDO CROWELL APRN 250.02 DIABETES II UNCONTROLLED 10/09/2010 EVERARDO CROWELL APRN 782.3 EDEMA 10/09/2010 250.02 DIABETES II UNCONTROLLED 10/09/2010 782.3 EDEMA 10/09/2010 CAROLINA BEAVER MD 250.02 DIABETES II UNCONTROLLED 10/09/2010 CAROLINA BEAVER MD 782.3 EDEMA 10/09/2010 CAROLINA BEAVER MD 250.02 DIABETES II UNCONTROLLED 10/09/2010 CAROLINA BEAVER MD 782.3 EDEMA 10/09/2010 250.02 DIABETES II UNCONTROLLED 10/09/2010 782.3 EDEMA 10/09/2010 250.02 DIABETES II UNCONTROLLED 10/09/2010 782.3 EDEMA 10/09/2010 EVERARDO CROWELL APRN 250.02 DIABETES II UNCONTROLLED 10/09/2010 EVERARDO CROWELL APRN 782.3 EDEMA 10/09/2010 CAROLINA BEAVER MD 250.02 DIABETES II UNCONTROLLED 10/09/2010 CAROLINA BEAVER MD 782.3 EDEMA 10/09/2010 SOCRATES CHRISTOPHER, EVERARDO KENNEDY 250.02 DIABETES II UNCONTROLLED 10/09/2010 CROWELL FIELD REVIEWER, EVERARDO KENNEDY 782.3 EDEMA 10/09/2010 REINA FIELD REVIEWER, DILAN R 250.02 DIABETES II UNCONTROLLED 10/09/2010 LATOSHA CHRISTOPHER, DILAN R 782.3 EDEMA 10/09/2010 CROWELL APRN, EVERARDO KENNEDY 250.02 DIABETES II UNCONTROLLED 10/09/2010 CROWELL APRN, EVERARDO KENNEDY 782.3 EDEMA 10/09/2010 CAROLINA BEAVER MD 250.02 DIABETES II UNCONTROLLED 10/09/2010 CAROLINA BEAVER MD 782.3 EDEMA 10/09/2010 LINDSEY BENOIT, KASI L 250.02 DIABETES II UNCONTROLLED 10/09/2010 LINDSEY BENOIT, KASI L 782.3 EDEMA 10/09/2010 LINDSEY BENOIT, KASI L 250.02 DIABETES II UNCONTROLLED 10/09/2010 LINDSEY BENOIT, KASI L 782.3 EDEMA 10/09/2010 LINDSEY BENOIT, KASI L 250.02 DIABETES II UNCONTROLLED 10/09/2010 LINDSEY BENOIT, KASI L 782.3 EDEMA 10/09/2010 LINDSEY BENOIT, KASI L 250.02 DIABETES II UNCONTROLLED 10/09/2010 LINDSEY BENOIT, KASI L 782.3 EDEMA 10/09/2010 CAROLINA BEAVER MD 250.02 DIABETES II UNCONTROLLED 10/09/2010 CAROLINA BEAVER MD 782.3 EDEMA 10/09/2010 CAROLINA BEAVER MD 250.02 DIABETES II UNCONTROLLED 10/09/2010 CAROLINA BEAVER MD 782.3 EDEMA 10/09/2010 LINDSEY BENOIT KASI L 250.02 DIABETES II UNCONTROLLED 10/09/2010 LINDSEY BENOIT KASI L 782.3 EDEMA 10/09/2010 SOCRATES CHRISTOPHER, EVERARDO LUCIOH 250.02 DIABETES II UNCONTROLLED 10/09/2010 SOCRATES CHRISTOPHER, EVERARDO KENNEDY 782.3 EDEMA 10/09/2010 SOCRATES CHRISTOPHER, EVERARDO KENNEDY 250.02 DIABETES II UNCONTROLLED 10/09/2010 SOCRATES CHRISTOPHER, EVERARDO KENNEDY 782.3 EDEMA 10/09/2010 CAROLINA BEAVER MD 250.02 DIABETES II UNCONTROLLED 10/09/2010 CAROLINA BEAVER MD 782.3 EDEMA 10/09/2010 LINDSEY BENOIT, KASI L 250.02 DIABETES II UNCONTROLLED 10/09/2010 LINDSEY BENOIT, KASI L 782.3 EDEMA 10/09/2010 LINDSEY BENOIT, KASI L 250.02 DIABETES II UNCONTROLLED 10/09/2010 LINDSEY BENOIT, KASI L 782.3 EDEMA 10/09/2010 CROWELL FIELD REVIEWER, EVERARDO KENNEDY 250.02 DIABETES II UNCONTROLLED 10/09/2010 CROWELL FIELD REVIEWER, EVERARDO KENNEDY 782.3 EDEMA 10/09/2010 LINDSEY BENOIT, KASI L 250.02 DIABETES II UNCONTROLLED 10/09/2010 LINDSEY BENOIT, KASI L 782.3 EDEMA 10/09/2010 CAROLINA BEAVER MD 250.02 DIABETES II UNCONTROLLED 10/09/2010 CAROLINA BEAVER MD 782.3 EDEMA 10/09/2010 VASILE PORTILLO PSYD ANN L 250.02 DIABETES II UNCONTROLLED 10/09/2010 LINDSEY BENOIT, KASI L 782.3 EDEMA 10/09/2010 LINDSEY BENOIT, KASI L 250.02 DIABETES II UNCONTROLLED 10/09/2010 VASILE PORTILLO PSYD ANN L 782.3 EDEMA 10/09/2010 CAROLINA BEAVER MD 250.02 DIABETES II UNCONTROLLED 10/09/2010 CAROLINA BEAVER MD 782.3 EDEMA 10/09/2010 BALWINDER DPM, MATTY 250.02 DIABETES II UNCONTROLLED 10/09/2010 BALWINDER DPM, MATTY 782.3 EDEMA 10/09/2010 SANDY FIELD REVIEWER, MELISSA 250.02 DIABETES II UNCONTROLLED 10/09/2010 SANDY FIELD REVIEWER, MELISSA 782.3 EDEMA 10/09/2010 LINDSEY BENOIT, KASI L 250.02 DIABETES II UNCONTROLLED 10/09/2010 LINDSEY BENOIT KASI L 782.3 EDEMA 10/09/2010 LINDSEY BENOIT, KASI L 250.02 DIABETES II UNCONTROLLED 10/09/2010 LINDSEY BENOIT KASI L 782.3 EDEMA 10/09/2010 CAROLINA BEAVER MD 250.02 DIABETES II UNCONTROLLED 10/09/2010 CAROLINA BEAVER MD 782.3 EDEMA 10/09/2010 VASILE PORTILLO PSYD L 250.02 DIABETES II UNCONTROLLED 10/09/2010 VASILE PORTILLO PSYD L 782.3 EDEMA 10/09/2010 SANDY FIELD REVIEWER, MELISSA 250.02 DIABETES II UNCONTROLLED 10/09/2010 SANDY FIELD REVIEWER, MELISSA 782.3 EDEMA 10/09/2010 CAROLINA BEAVER MD 250.02 DIABETES II UNCONTROLLED 10/09/2010 CAROLINA BEAVER MD 782.3 EDEMA 10/09/2010 SANDY FIELD REVIEWER, MELISSA 250.02 DIABETES II UNCONTROLLED 10/09/2010 SANDY FIELD REVIEWER, MELISSA 782.3 EDEMA 10/09/2010 CAROLINA BEAVER MD 250.02 DIABETES II UNCONTROLLED 10/09/2010 CAROLINA BEAVER MD 782.3 EDEMA 10/09/2010 SANDY FIELD REVIEWER, MELISSA 250.02 DIABETES II UNCONTROLLED 10/09/2010 SANDY FIELD REVIEWER, MELISSA 782.3 EDEMA 10/09/2010 VASILE PORTILLO PSYD ANN L 250.02 DIABETES II UNCONTROLLED 10/09/2010 VASILE PORTILLO PSYD L 782.3 EDEMA 11/19/2010 CAROLINA BEAVER MD 300.01 PANIC DISORDER WITHOUT AGORAPHOBIA 11/19/2010 CAROLINA BEAVER MD 847.0 SPRAIN OF NECK 11/19/2010 SOCRATES CHRISTOPHER EVERARDO KENNEDY 300.01 PANIC DISORDER WITHOUT AGORAPHOBIA 11/19/2010 SOCRATES CHRISTOPHER EVERARDO BRENT 847.0 SPRAIN OF NECK 11/19/2010 300.01 PANIC DISORDER WITHOUT AGORAPHOBIA 11/19/2010 847.0 SPRAIN OF NECK 11/19/2010 CAROLINA BEAVER MD 300.01 PANIC DISORDER WITHOUT AGORAPHOBIA 11/19/2010 CAROLINA BEAVER MD 847.0 SPRAIN OF NECK 11/19/2010 CAROLINA BEAVER MD 300.01 PANIC DISORDER WITHOUT AGORAPHOBIA 11/19/2010 CAROLINA BEAVER MD 847.0 SPRAIN OF NECK 11/19/2010 300.01 PANIC DISORDER WITHOUT AGORAPHOBIA 11/19/2010 847.0 SPRAIN OF NECK 11/19/2010 300.01 PANIC DISORDER WITHOUT AGORAPHOBIA 11/19/2010 847.0 SPRAIN OF NECK 11/19/2010 CROWELLDELANEY BECKHAMNEVERARDOH 300.01 PANIC DISORDER WITHOUT AGORAPHOBIA 11/19/2010 CROWELLDELANEY BECKHAMNEVERARDO 847.0 SPRAIN OF NECK 11/19/2010 CAROLINA BEAVER MD 300.01 PANIC DISORDER WITHOUT AGORAPHOBIA 11/19/2010 CAROLINA BEAVER MD 847.0 SPRAIN OF NECK 11/19/2010 CROWELLDELANEY BECKHAMKarel EVERARDO LUCIOH 300.01 PANIC DISORDER WITHOUT AGORAPHOBIA 11/19/2010 SOCRATES BECKHAMNEVERARDO 847.0 SPRAIN OF NECK 11/19/2010 LATOSHA CHRISTOPHER DILAN R 300.01 PANIC DISORDER WITHOUT AGORAPHOBIA 11/19/2010 LUCIA REINA APRNIA R 847.0 SPRAIN OF NECK 11/19/2010 SOCRATES FIELD REVIEWER, EVERARDO LUCIOH 300.01 PANIC DISORDER WITHOUT AGORAPHOBIA 11/19/2010 SOCRATES FIELD REVIEWER, EVERARDO KENNEDY 847.0 SPRAIN OF NECK 11/19/2010 CAROLINA BEAVER MD 300.01 PANIC DISORDER WITHOUT AGORAPHOBIA 11/19/2010 CAROLINA BEAVER MD 847.0 SPRAIN OF NECK 11/19/2010 VASILE PORTILLO PSYD ANN L 300.01 PANIC DISORDER WITHOUT AGORAPHOBIA 11/19/2010 VASILE PORTILLO PSYD ANN L 847.0 SPRAIN OF NECK 11/19/2010 VASILE PORTILLO PSYD ANN L 300.01 PANIC DISORDER WITHOUT AGORAPHOBIA 11/19/2010 VASILE PORTILLO PSYD ANN L 847.0 SPRAIN OF NECK 11/19/2010 VASILE PORTILLO PSYD ANN L 300.01 PANIC DISORDER WITHOUT AGORAPHOBIA 11/19/2010 VASILE PORTILLO PSYD ANN L 847.0 SPRAIN OF NECK 11/19/2010 VASILE PORTILLO PSYD ANN L 300.01 PANIC DISORDER WITHOUT AGORAPHOBIA 11/19/2010 VASILE PORTILLO PSYD ANN L 847.0 SPRAIN OF NECK 11/19/2010 CAROLINA BEAVER MD 300.01 PANIC DISORDER WITHOUT AGORAPHOBIA 11/19/2010 CAROLINA BEAVER MD 847.0 SPRAIN OF NECK 11/19/2010 CAROLINA BEAVER MD 300.01 PANIC DISORDER WITHOUT AGORAPHOBIA 11/19/2010 CAROLINA BEAVER MD 847.0 SPRAIN OF NECK 11/19/2010 VASILE PORTILLO PSYD ANN L 300.01 PANIC DISORDER WITHOUT AGORAPHOBIA 11/19/2010 VASILE PORTILLO PSYD ANN L 847.0 SPRAIN OF NECK 11/19/2010 CROWELL FIELD REVIEWER, EVERARDO KENNEDY 300.01 PANIC DISORDER WITHOUT AGORAPHOBIA 11/19/2010 CROWELL FIELD REVIEWER, EVERARDO LUCIOH 847.0 SPRAIN OF NECK 11/19/2010 CROWELL FIELD REVIEWER, EVERARDO LUCIOH 300.01 PANIC DISORDER WITHOUT AGORAPHOBIA 11/19/2010 CROWELL FIELD REVIEWER, EVERARDO LUCIOH 847.0 SPRAIN OF NECK 11/19/2010 CAROLINA BEAVER MD 300.01 PANIC DISORDER WITHOUT AGORAPHOBIA 11/19/2010 CAROLINA BAEVER MD 847.0 SPRAIN OF NECK 11/19/2010 VASILE PORTILLO PSYD ANN L 300.01 PANIC DISORDER WITHOUT AGORAPHOBIA 11/19/2010 LINDSEY BENOIT KASI L 847.0 SPRAIN OF NECK 11/19/2010 LINDSEY BENOIT, KASI L 300.01 PANIC DISORDER WITHOUT AGORAPHOBIA 11/19/2010 LINDSEY BENOIT KASI L 847.0 SPRAIN OF NECK 11/19/2010 CROWELL FIELD REVIEWER, EVERARDO BRENT 300.01 PANIC DISORDER WITHOUT AGORAPHOBIA 11/19/2010 CROWELL FIELD REVIEWER, EVERARDO LUCIOH 847.0 SPRAIN OF NECK 11/19/2010 LINDSEY BENOIT, KASI L 300.01 PANIC DISORDER WITHOUT AGORAPHOBIA 11/19/2010 LINDSEY BENOIT KASI L 847.0 SPRAIN OF NECK 11/19/2010 CAROLINA BEAVER MD 300.01 PANIC DISORDER WITHOUT AGORAPHOBIA 11/19/2010 CAROLINA BEAVER MD 847.0 SPRAIN OF NECK 11/19/2010 LINDSEY BENOIT KASI L 300.01 PANIC DISORDER WITHOUT AGORAPHOBIA 11/19/2010 VASILE PORTILLO PSYD ANN L 847.0 SPRAIN OF NECK 11/19/2010 VASILE PORTILLO PSYD ANN L 300.01 PANIC DISORDER WITHOUT AGORAPHOBIA 11/19/2010 VASILE PORTILLO PSYD ANN L 847.0 SPRAIN OF NECK 11/19/2010 CAROLINA BEAVER MD 300.01 PANIC DISORDER WITHOUT AGORAPHOBIA 11/19/2010 CAROLINA BEAVER MD 847.0 SPRAIN OF NECK 11/19/2010 BALWINDER DPM, MATTY 300.01 PANIC DISORDER WITHOUT AGORAPHOBIA 11/19/2010 BALWINDER DPM, MATTY 847.0 SPRAIN OF NECK 11/19/2010 SANDY FIELD REVIEWER, MELISSA 300.01 PANIC DISORDER WITHOUT AGORAPHOBIA 11/19/2010 SANDY FIELD REVIEWER, MELISSA 847.0 SPRAIN OF NECK 11/19/2010 VASILE PORTILLO PSYD ANN L 300.01 PANIC DISORDER WITHOUT AGORAPHOBIA 11/19/2010 VASILE PORTILLO PSYD ANN L 847.0 SPRAIN OF NECK 11/19/2010 VASILE PORTILLO PSYD ANN L 300.01 PANIC DISORDER WITHOUT AGORAPHOBIA 11/19/2010 VASILE PORTILLO PSYD ANN L 847.0 SPRAIN OF NECK 11/19/2010 CAROLINA BEAVER MD 300.01 PANIC DISORDER WITHOUT AGORAPHOBIA 11/19/2010 CAROLINA BEAVER MD 847.0 SPRAIN OF NECK 11/19/2010 VASILE PORTILLO PSYD ANN L 300.01 PANIC DISORDER WITHOUT AGORAPHOBIA 11/19/2010 VASILE PORTILLO PSYD ANN L 847.0 SPRAIN OF NECK 11/19/2010 SANDY FIELD REVIEWER, MELISSA 300.01 PANIC DISORDER WITHOUT AGORAPHOBIA 11/19/2010 SANDY FIELD REVIEWER, MELISSA 847.0 SPRAIN OF NECK 11/19/2010 CAROLINA BEAVER MD 300.01 PANIC DISORDER WITHOUT AGORAPHOBIA 11/19/2010 CAROLINA BEAVER MD 847.0 SPRAIN OF NECK 11/19/2010 SANDY FIELD REVIEWER, MELISSA 300.01 PANIC DISORDER WITHOUT AGORAPHOBIA 11/19/2010 SANDY FIELD REVIEWER, MELISSA 847.0 SPRAIN OF NECK 11/19/2010 CAROLINA BEAVER MD 300.01 PANIC DISORDER WITHOUT AGORAPHOBIA 11/19/2010 CAROLINA BEAVER MD 847.0 SPRAIN OF NECK 11/19/2010 MELISSA DELGADO APRN 300.01 PANIC DISORDER WITHOUT AGORAPHOBIA 11/19/2010 MELISSA DELGADO APRN 847.0 SPRAIN OF NECK 11/19/2010 VASILE PORTILLO PSYD L 300.01 PANIC DISORDER WITHOUT AGORAPHOBIA 11/19/2010 VASILE PORTILLO PSYD L 847.0 SPRAIN OF NECK 12/19/2010 SARANYA SWAN, CAR[place] 535.50 Gastritis Unspec 12/19/2010 EVERARDO CROWELL APRN 535.50 Gastritis Unspec 12/19/2010 535.50 Gastritis Unspec 12/19/2010 CAROLINA BEAVER MD 535.50 Gastritis Unspec 12/19/2010 CAROLINA BEAVER MD 535.50 Gastritis Unspec 12/19/2010 535.50 Gastritis Unspec 12/19/2010 535.50 Gastritis Unspec 12/19/2010 EVERARDO CROWELL APRN 535.50 Gastritis Unspec 12/19/2010 CAROLINA BEAVER MD 535.50 Gastritis Unspec 12/19/2010 EVERARDO CROWELL APRN 535.50 Gastritis Unspec 12/19/2010 DILAN REINA APRN 535.50 Gastritis Unspec 12/19/2010 SOCRATES CHRISTOPHER EVERARDO BRENT 535.50 Gastritis Unspec 12/19/2010 CAROLINA BEAVER MD 535.50 Gastritis Unspec 12/19/2010 VASILE PORTILLO PSYD L 535.50 Gastritis Unspec 12/19/2010 VASILE PORTILLO PSYD ANN L 535.50 Gastritis Unspec 12/19/2010 VASILE PORTILLO PSYD L 535.50 Gastritis Unspec 12/19/2010 VAISLE PORTILLO PSYD L 535.50 Gastritis Unspec 12/19/2010 CAROLINA BEAVER MD 535.50 Gastritis Unspec 12/19/2010 CAROLINA BEAVER MD 535.50 Gastritis Unspec 12/19/2010 VASILE PORTILLO PSYD L 535.50 Gastritis Unspec 12/19/2010 EVERARDO CROWELL APRN 535.50 Gastritis Unspec 12/19/2010 EVERARDO CROWELL APRN 535.50 GASTRITIS UNSPEC 12/19/2010 CAROLINA BEAVER MD 535.50 Gastritis Unspec 12/19/2010 VASILE PORTILLO PSYD L 535.50 Gastritis Unspec 12/19/2010 VASILE PORTILLO PSYD L 535.50 Gastritis Unspec 12/19/2010 SOCRATES CHRISTOPHER EVERARDO LUCIOH 535.50 Gastritis Unspec 12/19/2010 VASILE PORTILLO PSYD L 535.50 Gastritis Unspec 12/19/2010 CAROLINA BEAVER MD 535.50 Gastritis Unspec 12/19/2010 VASILE PORTILLO PSYD L 535.50 Gastritis Unspec 12/19/2010 VASILE PORTILLO PSYD L 535.50 Gastritis Unspec 12/19/2010 CAROLINA BEAVER MD 535.50 Gastritis Unspec 12/19/2010 BALWINDER HOBSON, MATTY 535.50 Gastritis Unspec 12/19/2010 MELISSA DELGADO APRN 535.50 Gastritis Unspec 12/19/2010 VASILE PORTILLO PSYD L 535.50 Gastritis Unspec 12/19/2010 VASILE PORTILLO PSYD L 535.50 Gastritis Unspec 12/19/2010 CAROLINA BEAVER MD 535.50 Gastritis Unspec 12/19/2010 VASILE PORTILLO PSYD L 535.50 Gastritis Unspec 12/19/2010 SANDY CHRISTOPHER, MELISSA 535.50 Gastritis Unspec 12/19/2010 CAROLINA BEAVER MD 535.50 Gastritis Unspec 12/19/2010 TED DELGADO APRNETTE 535.50 Gastritis Unspec 12/19/2010 CAROLINA BEAVER MD 535.50 Gastritis Unspec 12/19/2010 TED DELGADO APRNETTE 535.50 Gastritis Unspec 12/19/2010 VASILE PORTILLO PSYD ANN L 535.50 Gastritis Unspec 12/25/2010 CAROLINA BEAVER MD 296.32 MO DEPRESSIVE RECURRENT MODERATE 12/25/2010 CAROLINA BEAVER MD 300.02 AN GEN ANXIETY 12/25/2010 CAROLINA BEAVER MD 314.00 ADHD INATTENTIVE 12/25/2010 EVERARDO CROWELL APRN 296.32 MO DEPRESSIVE RECURRENT MODERATE 12/25/2010 EVERARDO CROWELL APRN 300.02 AN GEN ANXIETY 12/25/2010 EVERARDO CROWELL APRN 314.00 ADHD INATTENTIVE 12/25/2010 296.32 MO DEPRESSIVE RECURRENT MODERATE 12/25/2010 300.02 AN GEN ANXIETY 12/25/2010 314.00 ADHD INATTENTIVE 12/25/2010 CAROLINA BEAVER MD 296.32 MO DEPRESSIVE RECURRENT MODERATE 12/25/2010 CAROLINA BEAVER MD 300.02 AN GEN ANXIETY 12/25/2010 CAROLINA BEAVER MD 314.00 ADHD INATTENTIVE 12/25/2010 CAROLINA BEAVER MD 296.32 MO DEPRESSIVE RECURRENT MODERATE 12/25/2010 CAROLINA BEAVER MD 300.02 AN GEN ANXIETY 12/25/2010 CAROLINA BEAVER MD 314.00 ADHD INATTENTIVE 12/25/2010 296.32 MO DEPRESSIVE RECURRENT MODERATE 12/25/2010 300.02 AN GEN ANXIETY 12/25/2010 314.00 ADHD INATTENTIVE 12/25/2010 296.32 MO DEPRESSIVE RECURRENT MODERATE 12/25/2010 300.02 AN GEN ANXIETY 12/25/2010 314.00 ADHD INATTENTIVE 12/25/2010 EVERARDO CROWELL APRN 296.32 MO DEPRESSIVE RECURRENT MODERATE 12/25/2010 EVERARDO CROWELL APRN 300.02 AN GEN ANXIETY 12/25/2010 SOCRATES CHRSITOPHER EVERARDO BRENT 314.00 ADHD INATTENTIVE 12/25/2010 CAROLINA BEAVER MD 296.32 MO DEPRESSIVE RECURRENT MODERATE 12/25/2010 CAROLINA BEAVER MD 300.02 AN GEN ANXIETY 12/25/2010 CAROLINA BEAVER MD 314.00 ADHD INATTENTIVE 12/25/2010 SOCRATES CHRISTOPHER EVERARDO BRENT 296.32 MO DEPRESSIVE RECURRENT MODERATE 12/25/2010 EVERARDO CROWELL APRN 300.02 AN GEN ANXIETY 12/25/2010 SOCRATES CHRISTOPHER EVERARDO BRENT 314.00 ADHD INATTENTIVE 12/25/2010 JUAN REINA APRNRICIA R 296.32 MO DEPRESSIVE RECURRENT MODERATE 12/25/2010 LATOSHA CHRISTOPHER DILAN R 300.02 AN GEN ANXIETY 12/25/2010 LATOSHA CHRISTOPHER DILAN R 314.00 ADHD INATTENTIVE 12/25/2010 SOCRATES CHRISTOPHER EVERARDO BRENT 296.32 MO DEPRESSIVE RECURRENT MODERATE 12/25/2010 EVERARDO CROWELL APRN 300.02 AN GEN ANXIETY 12/25/2010 SOCRATES CHRISTOPHER EVERARDO BRENT 314.00 ADHD INATTENTIVE 12/25/2010 CAROLINA BEAVER MD 296.32 MO DEPRESSIVE RECURRENT MODERATE 12/25/2010 CAROLINA BEAVER MD 300.02 AN GEN ANXIETY 12/25/2010 CAROLINA BEAVER MD 314.00 ADHD INATTENTIVE 12/25/2010 VASILE PORTILLO PSYD ANN L 296.32 MO DEPRESSIVE RECURRENT MODERATE 12/25/2010 VASILE PORTILLO PSYD ANN L 300.02 AN GEN ANXIETY 12/25/2010 VASILE PORTILLO PSYD ANN L 314.00 ADHD INATTENTIVE 12/25/2010 LINDSEY BENOIT, KASI L 296.32 MO DEPRESSIVE RECURRENT MODERATE 12/25/2010 VASILE PORTILLO PSYD ANN L 300.02 AN GEN ANXIETY 12/25/2010 VASILE PORTILLO PSYD ANN L 314.00 ADHD INATTENTIVE 12/25/2010 VASILE PORTILLO PSYD ANN L 296.32 MO DEPRESSIVE RECURRENT MODERATE 12/25/2010 VASILE PORTILLO PSYD ANN L 300.02 AN GEN ANXIETY 12/25/2010 VASILE PORTILLO PSYD ANN L 314.00 ADHD INATTENTIVE 12/25/2010 VASILE PORTILLO PSYD ANN L 296.32 MO DEPRESSIVE RECURRENT MODERATE 12/25/2010 VASILE PORTILLO PSYD ANN L 300.02 AN GEN ANXIETY 12/25/2010 VASILE PORTILLO PSYD ANN L 314.00 ADHD INATTENTIVE 12/25/2010 CAROLINA BEAVER MD 296.32 MO DEPRESSIVE RECURRENT MODERATE 12/25/2010 CAROLINA BEAVER MD 300.02 AN GEN ANXIETY 12/25/2010 CAROLINA BEAVER MD 314.00 ADHD INATTENTIVE 12/25/2010 CAROLINA BEAVER MD 296.32 MO DEPRESSIVE RECURRENT MODERATE 12/25/2010 CAROLINA BEAVER MD 300.02 AN GEN ANXIETY 12/25/2010 CAROLINA BEAVER MD 314.00 ADHD INATTENTIVE 12/25/2010 VASILE PORTILLO PSYD ANN L 296.32 MO DEPRESSIVE RECURRENT MODERATE 12/25/2010 VASILE PORTILLO PSYD ANN L 300.02 AN GEN ANXIETY 12/25/2010 VASILE PORTILLO PSYD ANN L 314.00 ADHD INATTENTIVE 12/25/2010 EVERARDO CROWELL APRN 296.32 MO DEPRESSIVE RECURRENT MODERATE 12/25/2010 EVERARDO CROWELL APRN 300.02 AN GEN ANXIETY 12/25/2010 EVERARDO CROWELL APRN 314.00 ADHD INATTENTIVE 12/25/2010 EVERARDO CROWELL APRN 296.32 MO DEPRESSIVE RECURRENT MODERATE 12/25/2010 EVERARDO CROWELL APRN 300.02 AN GEN ANXIETY 12/25/2010 EVERARDO CROWELL APRN 314.00 ADHD INATTENTIVE 12/25/2010 CAROL[place] BEAVER MD 296.32 MO DEPRESSIVE RECURRENT MODERATE 12/25/2010 CAROL[place] BEAVER MD 300.02 AN GEN ANXIETY 12/25/2010 CAR[place] BEAVER MD 314.00 ADHD INATTENTIVE 12/25/2010 VASILE PORTILLO PSYD ANN L 296.32 MO DEPRESSIVE RECURRENT MODERATE 12/25/2010 VASILE PORTILLO PSYD ANN L 300.02 AN GEN ANXIETY 12/25/2010 VASILE PORTILLO PSYD ANN L 314.00 ADHD INATTENTIVE 12/25/2010 VASILE PORTILLO PSYD ANN L 296.32 MO DEPRESSIVE RECURRENT MODERATE 12/25/2010 LINDSEY BENOIT KASI L 300.02 AN GEN ANXIETY 12/25/2010 LINDSEY BENOIT KASI L 314.00 ADHD INATTENTIVE 12/25/2010 EVERARDO CROWELL APRN 296.32 MO DEPRESSIVE RECURRENT MODERATE 12/25/2010 EVERARDO CROWELL APRN 300.02 AN GEN ANXIETY 12/25/2010 EVERARDO CROWELL APRN 314.00 ADHD INATTENTIVE 12/25/2010 VASILE PORTILLO PSYD ANN L 296.32 MO DEPRESSIVE RECURRENT MODERATE 12/25/2010 VASILE PORTILLO PSYD ANN L 300.02 AN GEN ANXIETY 12/25/2010 VASILE PORTILLO PSYD ANN L 314.00 ADHD INATTENTIVE 12/25/2010 CAROLINA BEAVER MD 296.32 MO DEPRESSIVE RECURRENT MODERATE 12/25/2010 CAR[place] BEAVER MD 300.02 AN GEN ANXIETY 12/25/2010 CAR[place] BEAVER MD 314.00 ADHD INATTENTIVE 12/25/2010 LINDSEY BENOIT KASI L 296.32 MO DEPRESSIVE RECURRENT MODERATE 12/25/2010 VASILE PORTILLO PSYD ANN L 300.02 AN GEN ANXIETY 12/25/2010 VASILE PORTILLO PSYD L 314.00 ADHD INATTENTIVE 12/25/2010 VASILE PORTILLO PSYD ANN L 296.32 MO DEPRESSIVE RECURRENT MODERATE 12/25/2010 VASILE PORTILLO PSYD ANN L 300.02 AN GEN ANXIETY 12/25/2010 VASILE PORTILLO PSYD L 314.00 ADHD INATTENTIVE 12/25/2010 CAROLINA BEAVER MD 296.32 MO DEPRESSIVE RECURRENT MODERATE 12/25/2010 CAR[place] BEAVER MD 300.02 AN GEN ANXIETY 12/25/2010 CAROLINA BEAVER MD 314.00 ADHD INATTENTIVE 12/25/2010 BALWINDER DPM, MATTY 296.32 MO DEPRESSIVE RECURRENT MODERATE 12/25/2010 BALWINDER DPM, MATTY 300.02 AN GEN ANXIETY 12/25/2010 BALWINDER DPM, MATTY 314.00 ADHD INATTENTIVE 12/25/2010 SANDY FIELD REVIEWER, MELISSA 296.32 MO DEPRESSIVE RECURRENT MODERATE 12/25/2010 SANDY FIELD REVIEWER, MELISSA 300.02 AN GEN ANXIETY 12/25/2010 SANDY FIELD REVIEWER, MELISSA 314.00 ADHD INATTENTIVE 12/25/2010 VASILE PORTILLO PSYD ANN L 296.32 MO DEPRESSIVE RECURRENT MODERATE 12/25/2010 VASILE PORTILLO PSYD L 300.02 AN GEN ANXIETY 12/25/2010 VASILE PORTILLO PSYD L 314.00 ADHD INATTENTIVE 12/25/2010 VASILE PORTILLO PSYD ANN L 296.32 MO DEPRESSIVE RECURRENT MODERATE 12/25/2010 VASILE PORTILLO PSYD L 300.02 AN GEN ANXIETY 12/25/2010 VASILE PORTILLO PSYD ANN L 314.00 ADHD INATTENTIVE 12/25/2010 CAROLINA BEAVER MD 296.32 MO DEPRESSIVE RECURRENT MODERATE 12/25/2010 CAROLINA BEAVER MD 300.02 AN GEN ANXIETY 12/25/2010 CAROLINA BEAVER MD 314.00 ADHD INATTENTIVE 12/25/2010 VASILE PORTILLO PSYD ANN L 296.32 MO DEPRESSIVE RECURRENT MODERATE 12/25/2010 VASILE PORTILLO PSYD ANN L 300.02 AN GEN ANXIETY 12/25/2010 VASILE PORTILLO PSYD ANN L 314.00 ADHD INATTENTIVE 12/25/2010 SANDY FIELD REVIEWER, MELISSA 296.32 MO DEPRESSIVE RECURRENT MODERATE 12/25/2010 SANDY FIELD REVIEWER, MELISSA 300.02 AN GEN ANXIETY 12/25/2010 SANDY FIELD REVIEWER, MELISSA 314.00 ADHD INATTENTIVE 12/25/2010 CAROLINA BEAVER MD 296.32 MO DEPRESSIVE RECURRENT MODERATE 12/25/2010 CAROLINA BEAVER MD 300.02 AN GEN ANXIETY 12/25/2010 CAROLINA BEAVER MD 314.00 ADHD INATTENTIVE 12/25/2010 SANDY FIELD REVIEWER, MELISSA 296.32 MO DEPRESSIVE RECURRENT MODERATE 12/25/2010 SANDY FIELD REVIEWER, MELISSA 300.02 AN GEN ANXIETY 12/25/2010 SANDY FIELD REVIEWER, MELISSA 314.00 ADHD INATTENTIVE 12/25/2010 CAROLINA BEAVER MD 296.32 MO DEPRESSIVE RECURRENT MODERATE 12/25/2010 CAROLINA BEAVER MD 300.02 AN GEN ANXIETY 12/25/2010 CAROLINA BEAVER MD 314.00 ADHD INATTENTIVE 12/25/2010 SANDY FIELD REVIEWER, MELISSA 296.32 MO DEPRESSIVE RECURRENT MODERATE 12/25/2010 SANDY FIELD REVIEWER, MELISSA 300.02 AN GEN ANXIETY 12/25/2010 SANDY FIELD REVIEWER, MELISSA 314.00 ADHD INATTENTIVE 12/25/2010 VASILE PORTILLO PSYD ANN L 296.32 MO DEPRESSIVE RECURRENT MODERATE 12/25/2010 VASILE PORTILLO PSYD L 300.02 AN GEN ANXIETY 12/25/2010 VASILE PORTILLO PSYD L 314.00 ADHD INATTENTIVE 02/01/2011 CAROLINA BEAVER MD 278.02 OVERWEIGHT 02/01/2011 CAROLINA BEAVER MD 787.01 Nausea With Vomiting 02/01/2011 CAROLINA BEAVER MD 790.29 OTHER ABNORMAL GLUCOSE 02/01/2011 CAROLINA BEAVER MD 924.10 CONTUSION OF LOWER LEG 02/01/2011 EVERARDO CROWELL APRN 278.02 OVERWEIGHT 02/01/2011 EVERARDO CROWELL APRN 787.01 Nausea With Vomiting 02/01/2011 EVERARDO CROWELL APRN 790.29 OTHER ABNORMAL GLUCOSE 02/01/2011 EVERARDO CROWELL APRN 924.10 CONTUSION OF LOWER LEG 02/01/2011 278.02 OVERWEIGHT 02/01/2011 787.01 Nausea With Vomiting 02/01/2011 790.29 OTHER ABNORMAL GLUCOSE 02/01/2011 924.10 CONTUSION OF LOWER LEG 02/01/2011 CAROLINA BEAVER MD 278.02 OVERWEIGHT 02/01/2011 CAROLINA BEAVER MD 787.01 Nausea With Vomiting 02/01/2011 CAROLINA BEAVER MD 790.29 OTHER ABNORMAL GLUCOSE 02/01/2011 CAROLINA BEAVER MD 924.10 CONTUSION OF LOWER LEG 02/01/2011 CAROLINA BEAVER MD 278.02 OVERWEIGHT 02/01/2011 CAROLINA BEAVER MD 787.01 Nausea With Vomiting 02/01/2011 CAROLINA BEAVER MD 790.29 OTHER ABNORMAL GLUCOSE 02/01/2011 CAROLINA BEAVER MD 924.10 CONTUSION OF LOWER LEG 02/01/2011 278.02 OVERWEIGHT 02/01/2011 787.01 Nausea With Vomiting 02/01/2011 790.29 OTHER ABNORMAL GLUCOSE 02/01/2011 924.10 CONTUSION OF LOWER LEG 02/01/2011 278.02 OVERWEIGHT 02/01/2011 787.01 Nausea With Vomiting 02/01/2011 790.29 OTHER ABNORMAL GLUCOSE 02/01/2011 924.10 CONTUSION OF LOWER LEG 02/01/2011 SOCRATES CHRISTOPHER EVERARDO BRENT 278.02 OVERWEIGHT 02/01/2011 EVERARDO CROWELL APRNH 787.01 Nausea With Vomiting 02/01/2011 EVERARDO CROWELL APRNH 790.29 OTHER ABNORMAL GLUCOSE 02/01/2011 EVERARDO CROWELL APRNH 924.10 CONTUSION OF LOWER LEG 02/01/2011 CAROLINA BEAVER MD 278.02 OVERWEIGHT 02/01/2011 CAROLINA BEAVER MD 787.01 Nausea With Vomiting 02/01/2011 CAROLINA BEAVER MD 790.29 OTHER ABNORMAL GLUCOSE 02/01/2011 CAROLINA BEAVER MD 924.10 CONTUSION OF LOWER LEG 02/01/2011 EVERARDO CROWELL APRN 278.02 OVERWEIGHT 02/01/2011 EVERARDO CROWELL APRNH 787.01 Nausea With Vomiting 02/01/2011 EVERARDO CROWELL APRN 790.29 OTHER ABNORMAL GLUCOSE 02/01/2011 EVERARDO CROWELL APRNH 924.10 CONTUSION OF LOWER LEG 02/01/2011 DILAN REINA APRN 278.02 OVERWEIGHT 02/01/2011 DILAN REINA APRN R 787.01 Nausea With Vomiting 02/01/2011 DILAN REINA APRN R 790.29 OTHER ABNORMAL GLUCOSE 02/01/2011 DILAN REINA APRN R 924.10 CONTUSION OF LOWER LEG 02/01/2011 EVERARDO CROWELL APRN 278.02 OVERWEIGHT 02/01/2011 EVERARDO CROWELL APRN 787.01 Nausea With Vomiting 02/01/2011 SOCRATES CHRISTOPHER, EVERARDO KENNEDY 790.29 OTHER ABNORMAL GLUCOSE 02/01/2011 EVERARDO CROWELL APRN 924.10 CONTUSION OF LOWER LEG 02/01/2011 CAROLINA BEAVER MD 278.02 OVERWEIGHT 02/01/2011 CAROLINA BEAVER MD 787.01 Nausea With Vomiting 02/01/2011 CAROLINA BEAVER MD 790.29 OTHER ABNORMAL GLUCOSE 02/01/2011 CAROLINA BEAVER MD 924.10 CONTUSION OF LOWER LEG 02/01/2011 VASILE PORTILLO PSYD ANN L 278.02 OVERWEIGHT 02/01/2011 VASILE PORTILLO PSYD ANN L 787.01 Nausea With Vomiting 02/01/2011 VASILE PORTILLO PSYD ANN L 790.29 OTHER ABNORMAL GLUCOSE 02/01/2011 VASILE PORTILLO PSYD ANN L 924.10 CONTUSION OF LOWER LEG 02/01/2011 VASILE PORTILLO PSYD ANN L 278.02 OVERWEIGHT 02/01/2011 VASILE PORTILLO PSYD ANN L 787.01 Nausea With Vomiting 02/01/2011 VASILE PORTILLO PSYD ANN L 790.29 OTHER ABNORMAL GLUCOSE 02/01/2011 VASILE PORTILLO PSYD ANN L 924.10 CONTUSION OF LOWER LEG 02/01/2011 VASILE PORTILLO PSYD ANN L 278.02 OVERWEIGHT 02/01/2011 VASILE PORTILLO PSYD ANN L 787.01 Nausea With Vomiting 02/01/2011 VASILE PORTILLO PSYD ANN L 790.29 OTHER ABNORMAL GLUCOSE 02/01/2011 VASILE PORTILLO PSYD ANN L 924.10 CONTUSION OF LOWER LEG 02/01/2011 VASILE PORTILLO PSYD ANN L 278.02 OVERWEIGHT 02/01/2011 VASILE PORTILLO PSYD L 787.01 Nausea With Vomiting 02/01/2011 VASILE PORTILLO PSYD L 790.29 OTHER ABNORMAL GLUCOSE 02/01/2011 VASILE PORTILLO PSYD L 924.10 CONTUSION OF LOWER LEG 02/01/2011 CAROLINA BEAVER MD 278.02 OVERWEIGHT 02/01/2011 CAROLINA BEAVER MD 787.01 Nausea With Vomiting 02/01/2011 CAROLINA BEAVER MD 790.29 OTHER ABNORMAL GLUCOSE 02/01/2011 CAROLINA BEAVER MD 924.10 CONTUSION OF LOWER LEG 02/01/2011 CAROLINA BEAVER MD 278.02 OVERWEIGHT 02/01/2011 CAROLINA BEAVER MD 787.01 Nausea With Vomiting 02/01/2011 CAROLINA BEAVER MD 790.29 OTHER ABNORMAL GLUCOSE 02/01/2011 CAROLINA BEAVER MD 924.10 CONTUSION OF LOWER LEG 02/01/2011 VASILE PORTILLO PSYD L 278.02 OVERWEIGHT 02/01/2011 VASILE PORTILLO PSYD L 787.01 Nausea With Vomiting 02/01/2011 VASILE PORTILLO PSYD ANN L 790.29 OTHER ABNORMAL GLUCOSE 02/01/2011 VASILE PORTILLO PSYD L 924.10 CONTUSION OF LOWER LEG 02/01/2011 CROWELL FIELD REVIEWER, EVERARDO KENNEDY 278.02 OVERWEIGHT 02/01/2011 CROWELL FIELD REVIEWER, EVERARDO KENNEDY 787.01 Nausea With Vomiting 02/01/2011 CROWELL ASHWIN EVERARDO LUCIOH 790.29 OTHER ABNORMAL GLUCOSE 02/01/2011 CROWELL FIELD REVIEWER, EVERARDO BRENT 924.10 CONTUSION OF LOWER LEG 02/01/2011 CROWELL FIELD REVIEWER, EVERARDO LUCIOH 278.02 OVERWEIGHT 02/01/2011 CROWELL FIELD REVIEWER, EVERARDO LUCIOH 787.01 NAUSEA WITH VOMITING 02/01/2011 CROWELL FIELD REVIEWER, EVERARDO LUCIOH 790.29 OTHER ABNORMAL GLUCOSE 02/01/2011 CROWELL FIELD REVIEWER, EVERARDO LUCIOH 924.10 CONTUSION OF LOWER LEG 02/01/2011 CAROLINA BEAVER MD 278.02 OVERWEIGHT 02/01/2011 CAROLINA BEAVER MD 787.01 Nausea With Vomiting 02/01/2011 CAROLINA BEAVER MD 790.29 OTHER ABNORMAL GLUCOSE 02/01/2011 CAROLINA BEAVER MD 924.10 CONTUSION OF LOWER LEG 02/01/2011 VASILE PORTILLO PSYD ANN L 278.02 OVERWEIGHT 02/01/2011 VASILE PORTILLO PSYD ANN L 787.01 Nausea With Vomiting 02/01/2011 VASILE PORTILLO PSYD ANN L 790.29 OTHER ABNORMAL GLUCOSE 02/01/2011 LINDSEY PSBARRINGTON KASI L 924.10 CONTUSION OF LOWER LEG 02/01/2011 LINDSEY PSYD KASI L 278.02 OVERWEIGHT 02/01/2011 VASILE PORTILLO PSYD ANN L 787.01 Nausea With Vomiting 02/01/2011 VASILE PORTILLO PSYD ANN L 790.29 OTHER ABNORMAL GLUCOSE 02/01/2011 VASILE PORTILLO PSYD ANN L 924.10 CONTUSION OF LOWER LEG 02/01/2011 EVERARDO CROWELL APRN 278.02 OVERWEIGHT 02/01/2011 CROWELL FIELD REVIEWEREVERARDO 787.01 Nausea With Vomiting 02/01/2011 CROWELL FIELD REVIEWEREVERARDO 790.29 OTHER ABNORMAL GLUCOSE 02/01/2011 EVERARDO CROWELL APRN 924.10 CONTUSION OF LOWER LEG 02/01/2011 VASILE PORTILLO PSYD ANN L 278.02 OVERWEIGHT 02/01/2011 VASILE PORTILLO PSYD ANN L 787.01 Nausea With Vomiting 02/01/2011 VASILE PORTILLO PSYD ANN L 790.29 OTHER ABNORMAL GLUCOSE 02/01/2011 VASILE PORTILLO PSYD ANN L 924.10 CONTUSION OF LOWER LEG 02/01/2011 CAROLINA BEAVER MD 278.02 OVERWEIGHT 02/01/2011 CAROLINA BEAVER MD 787.01 Nausea With Vomiting 02/01/2011 CAROLINA BEAVER MD 790.29 OTHER ABNORMAL GLUCOSE 02/01/2011 CAROLINA BEAVER MD 924.10 CONTUSION OF LOWER LEG 02/01/2011 VASILE PORTILLO PSYD ANN L 278.02 OVERWEIGHT 02/01/2011 VASILE PORTILLO PSYD ANN L 787.01 Nausea With Vomiting 02/01/2011 VASILE PORTILLO PSYD ANN L 790.29 OTHER ABNORMAL GLUCOSE 02/01/2011 VASILE PORTILLO PSYD ANN L 924.10 CONTUSION OF LOWER LEG 02/01/2011 VASILE PORTILLO PSYD ANN L 278.02 OVERWEIGHT 02/01/2011 VASILE PORTILLO PSYD ANN L 787.01 Nausea With Vomiting 02/01/2011 VASILE PORTILLO PSYD ANN L 790.29 OTHER ABNORMAL GLUCOSE 02/01/2011 VASILE PORTILLO PSYD ANN L 924.10 CONTUSION OF LOWER LEG 02/01/2011 CAROLINA BEAVER MD 278.02 OVERWEIGHT 02/01/2011 CAROLINA BEAVER MD 787.01 Nausea With Vomiting 02/01/2011 CAROLINA BEAVER MD 790.29 OTHER ABNORMAL GLUCOSE 02/01/2011 CAROLINA BEAVER MD 924.10 CONTUSION OF LOWER LEG 02/01/2011 BALWINDER DPM, MATTY 278.02 OVERWEIGHT 02/01/2011 BALWINDER DPM, MATTY 787.01 Nausea With Vomiting 02/01/2011 BALWINDER DPM, MATTY 790.29 OTHER ABNORMAL GLUCOSE 02/01/2011 BALWINDER DPM, MATTY 924.10 CONTUSION OF LOWER LEG 02/01/2011 SANDY FIELD REVIEWER, MELISSA 278.02 OVERWEIGHT 02/01/2011 SANDY FIELD REVIEWER, MELISSA 787.01 Nausea With Vomiting 02/01/2011 SANDY FIELD REVIEWER, MELISSA 790.29 OTHER ABNORMAL GLUCOSE 02/01/2011 SANDY FIELD REVIEWER, MELISSA 924.10 CONTUSION OF LOWER LEG 02/01/2011 VASILE PORTILLO PSYD ANN L 278.02 OVERWEIGHT 02/01/2011 VASILE PORTILLO PSYD ANN L 787.01 Nausea With Vomiting 02/01/2011 VASILE PORTILLO PSYD ANN L 790.29 OTHER ABNORMAL GLUCOSE 02/01/2011 VASILE PORTILLO PSYD ANN L 924.10 CONTUSION OF LOWER LEG 02/01/2011 VASILE PORTILLO PSYD ANN L 278.02 OVERWEIGHT 02/01/2011 VASILE PORTILLO PSYD ANN L 787.01 Nausea With Vomiting 02/01/2011 VASILE PORTILLO PSYD ANN L 790.29 OTHER ABNORMAL GLUCOSE 02/01/2011 VASILE PORTILLO PSYD ANN L 924.10 CONTUSION OF LOWER LEG 02/01/2011 CAROLINA BEAVER MD 278.02 OVERWEIGHT 02/01/2011 CAROLINA BEAVER MD 787.01 Nausea With Vomiting 02/01/2011 CAROLINA BEAVER MD 790.29 OTHER ABNORMAL GLUCOSE 02/01/2011 CAROLINA BEAVER MD 924.10 CONTUSION OF LOWER LEG 02/01/2011 VASILE PORTILLO PSYD ANN L 278.02 OVERWEIGHT 02/01/2011 VASILE PORTILLO PSYD ANN L 787.01 Nausea With Vomiting 02/01/2011 VASILE PORTILLO PSYD ANN L 790.29 OTHER ABNORMAL GLUCOSE 02/01/2011 VASILE PORTILLO PSYD ANN L 924.10 CONTUSION OF LOWER LEG 02/01/2011 SANDY FIELD REVIEWER, MELISSA 278.02 OVERWEIGHT 02/01/2011 SANDY FIELD REVIEWER, MELISSA 787.01 Nausea With Vomiting 02/01/2011 SANDY CHRISTOPHER MELISSA 790.29 OTHER ABNORMAL GLUCOSE 02/01/2011 SANYD FIELD REVIEWER, MELISSA 924.10 CONTUSION OF LOWER LEG 02/01/2011 CAROLINA BEAVER MD 278.02 OVERWEIGHT 02/01/2011 CAROLINA BEAVER MD 787.01 Nausea With Vomiting 02/01/2011 CAROLINA BEAVER MD 790.29 OTHER ABNORMAL GLUCOSE 02/01/2011 CAROLINA BEAVER MD 924.10 CONTUSION OF LOWER LEG 02/01/2011 SANDY FIELD REVIEWER, MELISSA 278.02 OVERWEIGHT 02/01/2011 SANDY FIELD REVIEWER, MELISSA 787.01 Nausea With Vomiting 02/01/2011 SANDY FIELD REVIEWER, MELISSA 790.29 OTHER ABNORMAL GLUCOSE 02/01/2011 SANDY FIELD REVIEWER, MELISSA 924.10 CONTUSION OF LOWER LEG 02/01/2011 CAROLINA BEAVER MD 278.02 OVERWEIGHT 02/01/2011 CAROLINA BEAVRE MD 787.01 Nausea With Vomiting 02/01/2011 CAROLINA BEAVER MD 790.29 OTHER ABNORMAL GLUCOSE 02/01/2011 CAROLINA BEAVER MD 924.10 CONTUSION OF LOWER LEG 02/01/2011 SANDY FIELD REVIEWER, MELISSA 278.02 OVERWEIGHT 02/01/2011 SANDY FIELD REVIEWER, MELISSA 787.01 Nausea With Vomiting 02/01/2011 SANDY FIELD REVIEWER, MELISSA 790.29 OTHER ABNORMAL GLUCOSE 02/01/2011 SANDY FIELD REVIEWER, MELISSA 924.10 CONTUSION OF LOWER LEG 02/01/2011 VASILE PORTILLO PSYD ANN L 278.02 OVERWEIGHT 02/01/2011 VASILE PORTILLO PSYD ANN L 787.01 Nausea With Vomiting 02/01/2011 VASILE PORTILLO PSYD ANN L 790.29 OTHER ABNORMAL GLUCOSE 02/01/2011 VASILE PORTILLO PSYD ANN L 924.10 CONTUSION OF LOWER LEG 05/27/2011 CAROLINA BEAVER MD 314.01 ADHD COMBINED 05/27/2011 EVERARDO CROWELL APRN 314.01 ADHD COMBINED 05/27/2011 314.01 ADHD COMBINED 05/27/2011 CAROLINA BEAVER MD 314.01 ADHD COMBINED 05/27/2011 CAROLINA BEAVER MD 314.01 ADHD COMBINED 05/27/2011 314.01 ADHD COMBINED 05/27/2011 314.01 ADHD COMBINED 05/27/2011 EVERARDO CROWELL APRN 314.01 ADHD COMBINED 05/27/2011 CAROLINA BEAVER MD 314.01 ADHD COMBINED 05/27/2011 EVERARDO CROWELL APRN 314.01 ADHD COMBINED 05/27/2011 DILAN REINA APRN 314.01 ADHD COMBINED 05/27/2011 EVERARDO CROWELL APRN 314.01 ADHD COMBINED 05/27/2011 CAROLINA BEAVER MD 314.01 ADHD COMBINED 05/27/2011 VASILE PORTILLO PSYD ANN L 314.01 ADHD COMBINED 05/27/2011 VASILE PORTILLO PSYD ANN L 314.01 ADHD COMBINED 05/27/2011 VASILE PORTILLO PSYD ANN L 314.01 ADHD COMBINED 05/27/2011 VASILE PORTILLO PSYD ANN L 314.01 ADHD COMBINED 05/27/2011 CAROLINA BEAVER MD 314.01 ADHD COMBINED 05/27/2011 CAROLINA BEAVER MD 314.01 ADHD COMBINED 05/27/2011 VASILE PORTILLO PSYD ANN L 314.01 ADHD COMBINED 05/27/2011 EVERARDO CROWELL APRN 314.01 ADHD COMBINED 05/27/2011 EVERARDO CROWELL APRN 314.01 ADHD COMBINED 05/27/2011 SARANYA SWAN, [place] 314.01 ADHD COMBINED 05/27/2011 LINDSEY BENOIT, KASI L 314.01 ADHD COMBINED 05/27/2011 LINDSEY BENOIT, KASI L 314.01 ADHD COMBINED 05/27/2011 SOCRATES CHRISTOPHER, EVERARDO KENNEDY 314.01 ADHD COMBINED 05/27/2011 LINDSEY BENOIT, KASI L 314.01 ADHD COMBINED 05/27/2011 SARANYA SWAN, [place] 314.01 ADHD COMBINED 05/27/2011 LINDSEY BENOIT, KASI L 314.01 ADHD COMBINED 05/27/2011 LINDSEY BENOIT, KASI L 314.01 ADHD COMBINED 05/27/2011 SARANYA SWAN, [place] 314.01 ADHD COMBINED 05/27/2011 BALWINDER DPM, MATTY 314.01 ADHD COMBINED 05/27/2011 SANDY FIELD REVIEWER, MELISSA 314.01 ADHD COMBINED 05/27/2011 LINDSEY BENOIT, KASI L 314.01 ADHD COMBINED 05/27/2011 LINDSEY BENOIT, KASI L 314.01 ADHD COMBINED 05/27/2011 SARANYA SWAN, [place] 314.01 ADHD COMBINED 05/27/2011 LINDSEY BENOIT, KASI L 314.01 ADHD COMBINED 05/27/2011 SANDY FIELD REVIEWER, MELISSA 314.01 ADHD COMBINED 05/27/2011 SARANYA SWAN, [place] 314.01 ADHD COMBINED 05/27/2011 SANDY FIELD REVIEWER, MELISSA 314.01 ADHD COMBINED 05/27/2011 SARANYA SWAN, [place] 314.01 ADHD COMBINED 05/27/2011 SANDY FIELD REVIEWER, MELISSA 314.01 ADHD COMBINED 05/27/2011 LINDSEY BENOIT, KASI L 314.01 ADHD COMBINED 06/25/2011 CAROLINA BEAVER MD 716.90 UNSPECIFIED ARTHROPATHY SITE UNSPECIFIED 06/25/2011 SOCRATES CHRISTOPHER, EVERARDO KENNEDY 716.90 UNSPECIFIED ARTHROPATHY SITE UNSPECIFIED 06/25/2011 716.90 UNSPECIFIED ARTHROPATHY SITE UNSPECIFIED 06/25/2011 CAROLINA BEAVER MD 716.90 UNSPECIFIED ARTHROPATHY SITE UNSPECIFIED 06/25/2011 CAROLINA BEAVER MD 716.90 UNSPECIFIED ARTHROPATHY SITE UNSPECIFIED 06/25/2011 716.90 UNSPECIFIED ARTHROPATHY SITE UNSPECIFIED 06/25/2011 716.90 UNSPECIFIED ARTHROPATHY SITE UNSPECIFIED 06/25/2011 SOCRATES BECKHAMNEVERARDO 716.90 UNSPECIFIED ARTHROPATHY SITE UNSPECIFIED 06/25/2011 CAROLINA BEAVER MD 716.90 UNSPECIFIED ARTHROPATHY SITE UNSPECIFIED 06/25/2011 EVERARDO CROWELL APRN 716.90 UNSPECIFIED ARTHROPATHY SITE UNSPECIFIED 06/25/2011 LATOSHA CHRISTOPHERJUANDILAN R 716.90 UNSPECIFIED ARTHROPATHY SITE UNSPECIFIED 06/25/2011 CROWELL FIELD REVIEWEREVERARDO 716.90 UNSPECIFIED ARTHROPATHY SITE UNSPECIFIED 06/25/2011 CAROLINA BEAVER MD 716.90 UNSPECIFIED ARTHROPATHY SITE UNSPECIFIED 06/25/2011 VASILE PORTILLO PSYD ANN L 716.90 UNSPECIFIED ARTHROPATHY SITE UNSPECIFIED 06/25/2011 VASILE PORTILLO PSYD ANN L 716.90 UNSPECIFIED ARTHROPATHY SITE UNSPECIFIED 06/25/2011 VASILE PORTILLO PSYD ANN L 716.90 UNSPECIFIED ARTHROPATHY SITE UNSPECIFIED 06/25/2011 VASILE PORTILLO PSYD ANN L 716.90 UNSPECIFIED ARTHROPATHY SITE UNSPECIFIED 06/25/2011 CAROLINA BEAVER MD 716. UNSPECIFIED ARTHROPATHY SITE UNSPECIFIED 06/25/2011 CAROLINA BEAVER MD 716. UNSPECIFIED ARTHROPATHY SITE UNSPECIFIED 06/25/2011 VASILE PORTILLO PSYD ANN L 716.90 UNSPECIFIED ARTHROPATHY SITE UNSPECIFIED 06/25/2011 SOCRATES ASHWIN EVERARDO KENNEDY 716.90 UNSPECIFIED ARTHROPATHY SITE UNSPECIFIED 06/25/2011 CROWELL ASHWIN EVERARDO KENNEDY 716.90 UNSPECIFIED ARTHROPATHY SITE UNSPECIFIED 06/25/2011 CAROLINA BEAVER MD 716.90 UNSPECIFIED ARTHROPATHY SITE UNSPECIFIED 06/25/2011 VASILE PORTILLO PSYD ANN L 716.90 UNSPECIFIED ARTHROPATHY SITE UNSPECIFIED 06/25/2011 VASILE PORTILLO PSYD ANN L 716.90 UNSPECIFIED ARTHROPATHY SITE UNSPECIFIED 06/25/2011 CROWELL FIELD REVIEWER, EVERARDO KENNEDY 716.90 UNSPECIFIED ARTHROPATHY SITE UNSPECIFIED 06/25/2011 VASILE PORTILLO PSYD ANN L 716.90 UNSPECIFIED ARTHROPATHY SITE UNSPECIFIED 06/25/2011 CAROLINA BEAVER MD 716.90 UNSPECIFIED ARTHROPATHY SITE UNSPECIFIED 06/25/2011 VASILE PORTILLO PSYD ANN L 716.90 UNSPECIFIED ARTHROPATHY SITE UNSPECIFIED 06/25/2011 VASILE PORTILLO PSYD ANN L 716.90 UNSPECIFIED ARTHROPATHY SITE UNSPECIFIED 06/25/2011 CAROLINA BEAVER MD 716.90 UNSPECIFIED ARTHROPATHY SITE UNSPECIFIED 06/25/2011 BALWINDER HOBSON, MATTY 716.90 UNSPECIFIED ARTHROPATHY SITE UNSPECIFIED 06/25/2011 SANDY FIELD REVIEWER, MELISSA 716.90 UNSPECIFIED ARTHROPATHY SITE UNSPECIFIED 06/25/2011 VASILE PORTILLO PSYD ANN L 716.90 UNSPECIFIED ARTHROPATHY SITE UNSPECIFIED 06/25/2011 VASILE PORTILLO PSYD ANN L 716.90 UNSPECIFIED ARTHROPATHY SITE UNSPECIFIED 06/25/2011 CAROLINA BEAVER MD 716.90 UNSPECIFIED ARTHROPATHY SITE UNSPECIFIED 06/25/2011 VASILE PORTILLO PSYD ANN L 716.90 UNSPECIFIED ARTHROPATHY SITE UNSPECIFIED 06/25/2011 SANDY FIELD REVIEWER, MELISSA 716.90 UNSPECIFIED ARTHROPATHY SITE UNSPECIFIED 06/25/2011 CAROLINA BEAVER MD 716.90 UNSPECIFIED ARTHROPATHY SITE UNSPECIFIED 06/25/2011 SANDY FIELD REVIEWER, MELISSA 716.90 UNSPECIFIED ARTHROPATHY SITE UNSPECIFIED 06/25/2011 CAROLINA BEAVER MD 716.90 UNSPECIFIED ARTHROPATHY SITE UNSPECIFIED 06/25/2011 SANDY FIELD REVIEWER, MELISSA 716.90 UNSPECIFIED ARTHROPATHY SITE UNSPECIFIED 06/25/2011 VASILE PORTILLO PSYD ANN L 716.90 UNSPECIFIED ARTHROPATHY SITE UNSPECIFIED 07/13/2011 CAROLINA BEAVER MD 300.00 AN ANXIETY UNSPEC 07/13/2011 EVERARDO CROWELL APRN 300.00 AN ANXIETY UNSPEC 07/13/2011 300.00 AN ANXIETY UNSPEC 07/13/2011 CAROLINA BEAVER MD 300.00 AN ANXIETY UNSPEC 07/13/2011 CAROLINA BEAVER MD 300.00 AN ANXIETY UNSPEC 07/13/2011 300.00 AN ANXIETY UNSPEC 07/13/2011 300.00 AN ANXIETY UNSPEC 07/13/2011 EVERARDO CROWELL APRN 300.00 AN ANXIETY UNSPEC 07/13/2011 CAROLINA BEAVER MD 300.00 AN ANXIETY UNSPEC 07/13/2011 EVERARDO CROWELL APRN 300.00 AN ANXIETY UNSPEC 07/13/2011 DILAN REINA APRN 300.00 AN ANXIETY UNSPEC 07/13/2011 EVERARDO CROWELL APRN 300.00 AN ANXIETY UNSPEC 07/13/2011 CAROL[place] BEAVER MD 300.00 AN ANXIETY UNSPEC 07/13/2011 VASILE PORTILLO PSYD ANN L 300.00 AN ANXIETY UNSPEC 07/13/2011 VASILE PORTILLO PSYD ANN L 300.00 AN ANXIETY UNSPEC 07/13/2011 VASILE PORTILLO PSYD ANN L 300.00 AN ANXIETY UNSPEC 07/13/2011 VASILE PORTILLO PSYD L 300.00 AN ANXIETY UNSPEC 07/13/2011 CAROLINA BEAVER MD 300.00 AN ANXIETY UNSPEC 07/13/2011 CAROLINA BEAVER MD 300.00 AN ANXIETY UNSPEC 07/13/2011 VASILE PORTILLO PSYD ANN L 300.00 AN ANXIETY UNSPEC 07/13/2011 EVERARDO CROWELL APRN 300.00 AN ANXIETY UNSPEC 07/13/2011 EVERARDO CROWELL APRN 300.00 AN ANXIETY UNSPEC 07/13/2011 CAROLINA BEAVER MD 300.00 AN ANXIETY UNSPEC 07/13/2011 VASILE PORTILLO PSYD ANN L 300.00 AN ANXIETY UNSPEC 07/13/2011 VASILE PORTILLO PSYD L 300.00 AN ANXIETY UNSPEC 07/13/2011 EVERARDO CROWELL APRN 300.00 AN ANXIETY UNSPEC 07/13/2011 VASILE PORTILLO PSYD ANN L 300.00 AN ANXIETY UNSPEC 07/13/2011 CAROLINA BEAVER MD 300.00 AN ANXIETY UNSPEC 07/13/2011 VASILE PORTILLO PSYD L 300.00 AN ANXIETY UNSPEC 07/13/2011 VASILE PORTILLO PSYD ANN L 300.00 AN ANXIETY UNSPEC 07/13/2011 CAROL[place] BEAVER MD 300.00 AN ANXIETY UNSPEC 07/13/2011 MATTY BRITT DPM 300.00 AN ANXIETY UNSPEC 07/13/2011 SANDY FIELD REVIEWER, MELISSA 300.00 AN ANXIETY UNSPEC 07/13/2011 VASILE PORTILLO PSYD ANN L 300.00 AN ANXIETY UNSPEC 07/13/2011 VASILE PORTILLO PSYD ANN L 300.00 AN ANXIETY UNSPEC 07/13/2011 CAROL[place] BEAVER MD 300.00 AN ANXIETY UNSPEC 07/13/2011 VASILE PORTILLO PSYD ANN L 300.00 AN ANXIETY UNSPEC 07/13/2011 TED DELGADO APRNETTE 300.00 AN ANXIETY UNSPEC 07/13/2011 CAR[place] BEAVER MD 300.00 AN ANXIETY UNSPEC 07/13/2011 MELISSA DELGADO APRN 300.00 AN ANXIETY UNSPEC 07/13/2011 [place] BEAVER MD 300.00 AN ANXIETY UNSPEC 07/13/2011 TED DELGADO APRNETTE 300.00 AN ANXIETY UNSPEC 07/13/2011 VASILE PORTILLO PSYD ANN L 300.00 AN ANXIETY UNSPEC 09/24/2011 [place] BEAVER MD 380.10 Infective Otitis Externa Unspecified 09/24/2011 EVERARDO CROWELL APRN 380.10 Infective Otitis Externa Unspecified 09/24/2011 380.10 Infective Otitis Externa Unspecified 09/24/2011 CAROL[place] BEAVER MD 380.10 Infective Otitis Externa Unspecified 09/24/2011 CAROL[place] BEAVER MD 380.10 Infective Otitis Externa Unspecified 09/24/2011 380.10 Infective Otitis Externa Unspecified 09/24/2011 380.10 Infective Otitis Externa Unspecified 09/24/2011 EVERARDO CROWELL APRN 380.10 Infective Otitis Externa Unspecified 09/24/2011 CAR[place] BEAVER MD 380.10 Infective Otitis Externa Unspecified 09/24/2011 EVERARDO CROWELL APRN 380.10 Infective Otitis Externa Unspecified 09/24/2011 DILAN REINA APRN 380.10 Infective Otitis Externa Unspecified 09/24/2011 EVERARDO CROWELL APRN 380.10 Infective Otitis Externa Unspecified 09/24/2011 [place] BEAVER MD 380.10 Infective Otitis Externa Unspecified 09/24/2011 VASILE PORTILLO PSYD ANN L 380.10 Infective Otitis Externa Unspecified 09/24/2011 VASILE PORTILLO PSYD ANN L 380.10 Infective Otitis Externa Unspecified 09/24/2011 VASILE PORTILLO PSYD ANN L 380.10 Infective Otitis Externa Unspecified 09/24/2011 VASILE PORTILLO PSYD ANN L 380.10 Infective Otitis Externa Unspecified 09/24/2011 CAROLINA BEAVER MD 380.10 Infective Otitis Externa Unspecified 09/24/2011 CAR[place] BEAVER MD 380.10 Infective Otitis Externa Unspecified 09/24/2011 VASILE PORTILLO PSYD ANN L 380.10 Infective Otitis Externa Unspecified 09/24/2011 CROWELL FIELD REVIEWER EVERARDO LUCIOH 380.10 Infective Otitis Externa Unspecified 09/24/2011 CROWELL FIELD REVIEWER, EVERARDO BRENT 380.10 Infective Otitis Externa Unspecified 09/24/2011 CAROL[place] BEAVER MD 380.10 Infective Otitis Externa Unspecified 09/24/2011 VASILE PORTILLO PSYD ANN L 380.10 Infective Otitis Externa Unspecified 09/24/2011 VASILE PORTILLO PSYD ANN L 380.10 Infective Otitis Externa Unspecified 09/24/2011 CROWELL FIELD REVIEWER EVERARDO BRENT 380.10 Infective Otitis Externa Unspecified 09/24/2011 VASILE PORTILLO PSYD ANN L 380.10 Infective Otitis Externa Unspecified 09/24/2011 CAROL[place] BEAVER MD 380.10 Infective Otitis Externa Unspecified 09/24/2011 VASILE PORTILLO PSYD ANN L 380.10 Infective Otitis Externa Unspecified 09/24/2011 VASILE PORTILLO PSYD ANN L 380.10 Infective Otitis Externa Unspecified 09/24/2011 CAROLINA BEAVER MD 380.10 Infective Otitis Externa Unspecified 09/24/2011 BALWINDER HOBSON, MATTY 380.10 Infective Otitis Externa Unspecified 09/24/2011 SANDY FIELD REVIEWER, MELISSA 380.10 Infective Otitis Externa Unspecified 09/24/2011 VASILE PORTILLO PSYD ANN L 380.10 Infective Otitis Externa Unspecified 09/24/2011 VASILE PORTILLO PSYD ANN L 380.10 Infective Otitis Externa Unspecified 09/24/2011 CAROLINA BEAVER MD 380.10 Infective Otitis Externa Unspecified 09/24/2011 VASILE PORTILLO PSYD ANN L 380.10 Infective Otitis Externa Unspecified 09/24/2011 MELISSA DELGADO APRN 380.10 Infective Otitis Externa Unspecified 09/24/2011 [place]OL[place] BEAVER MD 380.10 Infective Otitis Externa Unspecified 09/24/2011 MELISSA DELGADO APRN 380.10 Infective Otitis Externa Unspecified 09/24/2011 [place] BEAVER MD 380.10 Infective Otitis Externa Unspecified 09/24/2011 MELISSA DELGADO APRN 380.10 Infective Otitis Externa Unspecified 09/24/2011 VASILE PORTILLO PSYD 380.10 Infective Otitis Externa Unspecified 12/07/2011 [place] BEAVER MD 380.4 Impacted Cerumen 12/07/2011 [place] BEAVER MD 461.9 Sinusitis Acute 12/07/2011 EVERARDO CROWELL APRN 380.4 Impacted Cerumen 12/07/2011 EVERARDO CROWELL APRN 461.9 Sinusitis Acute 12/07/2011 380.4 Impacted Cerumen 12/07/2011 461.9 Sinusitis Acute 12/07/2011 CAROL[place] BEAVER MD 380.4 Impacted Cerumen 12/07/2011 CAROLINA BEAVER MD 461.9 Sinusitis Acute 12/07/2011 CAROLINA BEAVER MD 380.4 Impacted Cerumen 12/07/2011 CAROLINA BEAVER MD 461.9 Sinusitis Acute 12/07/2011 380.4 Impacted Cerumen 12/07/2011 461.9 Sinusitis Acute 12/07/2011 380.4 Impacted Cerumen 12/07/2011 461.9 Sinusitis Acute 12/07/2011 EVERARDO CROWELL APRN 380.4 Impacted Cerumen 12/07/2011 EVERARDO CROWELL APRN 461.9 Sinusitis Acute 12/07/2011 CAROLINA BEAVER MD 380.4 Impacted Cerumen 12/07/2011 CAROLINA BEAVER MD 461.9 Sinusitis Acute 12/07/2011 EVERARDO CROWELL APRN 380.4 Impacted Cerumen 12/07/2011 EVERARDO CROWELL APRN 461.9 Sinusitis Acute 12/07/2011 LUCIA REINA APRNIA R 380.4 Impacted Cerumen 12/07/2011 REINA FIELD REVIEWER, DILAN R 461.9 Sinusitis Acute 12/07/2011 CROWELL FIELD REVIEWER, EVERARDO LUCIOH 380.4 Impacted Cerumen 12/07/2011 CROWELL FIELD REVIEWER, EVERARDO BRENT 461.9 Sinusitis Acute 12/07/2011 CAROLINA BEAVER MD 380.4 Impacted Cerumen 12/07/2011 CAROLINA BEAVER MD 461.9 Sinusitis Acute 12/07/2011 VASILE PORTILLO PSYD ANN L 380.4 Impacted Cerumen 12/07/2011 MCCLEADRIENNE BENOIT, KASI L 461.9 Sinusitis Acute 12/07/2011 MCCLEEARY PSYD, KASI L 380.4 Impacted Cerumen 12/07/2011 LINDSEY BENOIT, KASI L 461.9 Sinusitis Acute 12/07/2011 LINDSEY BENOIT, KASI L 380.4 Impacted Cerumen 12/07/2011 LINDSEY BENOIT, KASI L 461.9 Sinusitis Acute 12/07/2011 VASILE PORTILLO PSYD ANN L 380.4 Impacted Cerumen 12/07/2011 LINDSEY BENOIT, KASI L 461.9 Sinusitis Acute 12/07/2011 SARANYA SWAN, CAR[place] 380.4 Impacted Cerumen 12/07/2011 CAROLINA BEAVER MD 461.9 Sinusitis Acute 12/07/2011 CAROLINA BEAVER MD 380.4 Impacted Cerumen 12/07/2011 CAROLINA BEAVER MD 461.9 Sinusitis Acute 12/07/2011 VASILE PORTILLO PSYD ANN L 380.4 Impacted Cerumen 12/07/2011 VASILE PORTILLO PSYD ANN L 461.9 Sinusitis Acute 12/07/2011 CROWELL FIELD REVIEWER, EVERARDO LUCIOH 380.4 Impacted Cerumen 12/07/2011 CROWELL FIELD REVIEWER, EVERARDO BRENT 461.9 Sinusitis Acute 12/07/2011 CROWELL FIELD REVIEWER, EVERARDO BRENT 380.4 Impacted Cerumen 12/07/2011 CROWELL FIELD REVIEWER, EVERARDO LUCIOH 461.9 Sinusitis Acute 12/07/2011 CAROLINA BEAVER MD 380.4 Impacted Cerumen 12/07/2011 CAROLINA BEAVER MD 461.9 Sinusitis Acute 12/07/2011 VASILE PORTILLO PSYD ANN L 380.4 Impacted Cerumen 12/07/2011 VASILE PORTILLO PSYD ANN L 461.9 Sinusitis Acute 12/07/2011 VASILE PORTILLO PSYD ANN L 380.4 Impacted Cerumen 12/07/2011 VASILE PORTILLO PSYD ANN L 461.9 Sinusitis Acute 12/07/2011 CROWELL FIELD REVIEWEREVERARDO 380.4 Impacted Cerumen 12/07/2011 CROWELL FIELD REVIEWER, EVERARDO KENNEDY 461.9 Sinusitis Acute 12/07/2011 VASILE PORTILLO PSYD ANN L 380.4 Impacted Cerumen 12/07/2011 VASILE PORTILLO PSYD ANN L 461.9 Sinusitis Acute 12/07/2011 CAROLINA BEAVER MD 380.4 Impacted Cerumen 12/07/2011 CAROLINA BEAVER MD 461.9 Sinusitis Acute 12/07/2011 VASILE PORTILLO PSYD ANN L 380.4 Impacted Cerumen 12/07/2011 VASILE PORTILLO PSYD ANN L 461.9 Sinusitis Acute 12/07/2011 VASILE PORTILLO PSYD ANN L 380.4 Impacted Cerumen 12/07/2011 VASILE PORTILLO PSYD ANN L 461.9 Sinusitis Acute 12/07/2011 CAROLINA BEAVER MD 380.4 Impacted Cerumen 12/07/2011 CAROLINA BEAVER MD 461.9 Sinusitis Acute 12/07/2011 BALWINDER DPM, MATTY 380.4 Impacted Cerumen 12/07/2011 BALWINDER DPM, MATTY 461.9 Sinusitis Acute 12/07/2011 SANDY FIELD REVIEWER, MELISSA 380.4 Impacted Cerumen 12/07/2011 SNADY FIELD REVIEWER, MELISSA 461.9 Sinusitis Acute 12/07/2011 VASILE PORTILLO PSYD ANN L 380.4 Impacted Cerumen 12/07/2011 VASILE PORTILLO PSYD ANN L 461.9 Sinusitis Acute 12/07/2011 VASILE PORTILLO PSYD ANN L 380.4 Impacted Cerumen 12/07/2011 VASILE PORTILLO PSYD ANN L 461.9 Sinusitis Acute 12/07/2011 CAROLINA BEAVER MD 380.4 Impacted Cerumen 12/07/2011 CAROLINA BEAVER MD 461.9 Sinusitis Acute 12/07/2011 VASILE PORTILLO PSYD L 380.4 Impacted Cerumen 12/07/2011 VASILE PORTILLO PSYD 461.9 Sinusitis Acute 12/07/2011 SANDY FIELD REVIEWER, MELISSA 380.4 Impacted Cerumen 12/07/2011 SANDY FIELD REVIEWER, MELISSA 461.9 Sinusitis Acute 12/07/2011 CAROLINA BEAVER MD 380.4 Impacted Cerumen 12/07/2011 CAROLINA BEAVER MD 461.9 Sinusitis Acute 12/07/2011 SANDY FIELD REVIEWER, MELISSA 380.4 Impacted Cerumen 12/07/2011 SANDY FIELD REVIEWER, MELISSA 461.9 Sinusitis Acute 12/07/2011 CAROLINA BEAVER MD 380.4 Impacted Cerumen 12/07/2011 CAROLINA BEAVER MD 461.9 Sinusitis Acute 12/07/2011 SANDY FIELD REVIEWER, MELISSA 380.4 Impacted Cerumen 12/07/2011 SANDY FIELD REVIEWER, MELISSA 461.9 Sinusitis Acute 12/07/2011 VASILE PORTILLO PSYD 380.4 Impacted Cerumen 12/07/2011 VASILE PORTILLO PSYD 461.9 Sinusitis Acute 12/27/2011 CAROLINA BEAVER MD 696.1 Other Psoriasis And Similar Disorders 12/27/2011 EVERARDO CROWELL APRN 696.1 Other Psoriasis And Similar Disorders 12/27/2011 696.1 Other Psoriasis And Similar Disorders 12/27/2011 CAROLINA BEAVER MD 696.1 Other Psoriasis And Similar Disorders 12/27/2011 CAROLINA BEAVER MD 696.1 Other Psoriasis And Similar Disorders 12/27/2011 696.1 Other Psoriasis And Similar Disorders 12/27/2011 696.1 Other Psoriasis And Similar Disorders 12/27/2011 EVERARDO CROWELL APRN 696.1 Other Psoriasis And Similar Disorders 12/27/2011 CAROLINA BEAVER MD 696.1 Other Psoriasis And Similar Disorders 12/27/2011 EVERARDO CROWELL APRN 696.1 Other Psoriasis And Similar Disorders 12/27/2011 DILAN REINA APRN 696.1 Other Psoriasis And Similar Disorders 12/27/2011 SOCRATES CHRISTOPHER EVERARDO BRENT 696.1 Other Psoriasis And Similar Disorders 12/27/2011 CAROLINA BEAVER MD 696.1 Other Psoriasis And Similar Disorders 12/27/2011 VASILE PORTILLO PSYD ANN L 696.1 Other Psoriasis And Similar Disorders 12/27/2011 VASILE PORTILLO PSYD ANN L 696.1 Other Psoriasis And Similar Disorders 12/27/2011 VASILE PORTILLO PSYD ANN L 696.1 Other Psoriasis And Similar Disorders 12/27/2011 VASILE PORTILLO PSYD ANN L 696.1 Other Psoriasis And Similar Disorders 12/27/2011 CAROLINA BEAVER MD 696.1 Other Psoriasis And Similar Disorders 12/27/2011 CAROLINA BEAVER MD 696.1 Other Psoriasis And Similar Disorders 12/27/2011 VASILE PORTILLO PSYD ANN L 696.1 Other Psoriasis And Similar Disorders 12/27/2011 SOCRATES CHRISTOPHER EVERARDO BRENT 696.1 Other Psoriasis And Similar Disorders 12/27/2011 SOCRATES CHRISTOPHER EVERARDO BRENT 696.1 Other Psoriasis And Similar Disorders 12/27/2011 CAROLINA BEAVER MD 696.1 Other Psoriasis And Similar Disorders 12/27/2011 VASILE PORTILLO PSYD ANN L 696.1 Other Psoriasis And Similar Disorders 12/27/2011 VASILE PORTILLO PSYD ANN L 696.1 Other Psoriasis And Similar Disorders 12/27/2011 SOCRATES CHRISTOPHER EVERARDO BRENT 696.1 Other Psoriasis And Similar Disorders 12/27/2011 VASILE PORTILLO PSYD ANN L 696.1 Other Psoriasis And Similar Disorders 12/27/2011 CAROLINA BEAVER MD 696.1 Other Psoriasis And Similar Disorders 12/27/2011 VASILE PORTILLO PSYD ANN L 696.1 Other Psoriasis And Similar Disorders 12/27/2011 VASLIE PORTILLO PSYD ANN L 696.1 Other Psoriasis And Similar Disorders 12/27/2011 CAROLINA BEAVER MD 696.1 Other Psoriasis And Similar Disorders 12/27/2011 MATTY BRITT DPM 696.1 Other Psoriasis And Similar Disorders 12/27/2011 MELISSA DELGADO APRN 696.1 Other Psoriasis And Similar Disorders 12/27/2011 VASILE PORTILLO PSYD ANN L 696.1 Other Psoriasis And Similar Disorders 12/27/2011 VASILE PORTILLO PSYD ANN L 696.1 Other Psoriasis And Similar Disorders 12/27/2011 CAROLINA BEAVER MD 696.1 Other Psoriasis And Similar Disorders 12/27/2011 VASILE PORTILLO PSYD ANN L 696.1 Other Psoriasis And Similar Disorders 12/27/2011 MELISSA DELGADO APRN 696.1 Other Psoriasis And Similar Disorders 12/27/2011 CAROLINA BEAVER MD 696.1 Other Psoriasis And Similar Disorders 12/27/2011 MELISSA DELGADO APRN 696.1 Other Psoriasis And Similar Disorders 12/27/2011 CAROLINA BEAVER MD 696.1 Other Psoriasis And Similar Disorders 12/27/2011 MELISSA DELGADO APRN 696.1 Other Psoriasis And Similar Disorders 12/27/2011 VASILE PORTILLO PSYD L 696.1 Other Psoriasis And Similar Disorders 07/01/2012 CAROLINA BEAVER MD 528.2 Oral Aphthae 07/01/2012 CAROLINA BEAVER MD 599.0 Urinary Tract Infection 07/01/2012 CAROLINA BEAVER MD V58.69 LONG-TERM (CURRENT) USE OF OTHER MEDICATIONS 07/01/2012 SOCRATES CHRISTOPHER EVERARDO BRENT 528.2 Oral Aphthae 07/01/2012 EVERARDO CROWELL APRN 599.0 Urinary Tract Infection 07/01/2012 EVERARDO CROWELL APRN V58.69 LONG-TERM (CURRENT) USE OF OTHER MEDICATIONS 07/01/2012 528.2 Oral Aphthae 07/01/2012 599.0 Urinary Tract Infection 07/01/2012 V58.69 LONG-TERM (CURRENT) USE OF OTHER MEDICATIONS 07/01/2012 CAROLINA BEAVER MD 528.2 Oral Aphthae 07/01/2012 CAROLINA BEAVER MD 599.0 Urinary Tract Infection 07/01/2012 CAROLINA BEAVER MD V58.69 LONG-TERM (CURRENT) USE OF OTHER MEDICATIONS 07/01/2012 CAROLINA BEAVER MD 528.2 Oral Aphthae 07/01/2012 CAROLINA BEAVER MD 599.0 Urinary Tract Infection 07/01/2012 CAROLINA BEAVER MD V58.69 LONG-TERM (CURRENT) USE OF OTHER MEDICATIONS 07/01/2012 528.2 Oral Aphthae 07/01/2012 599.0 Urinary Tract Infection 07/01/2012 V58.69 LONG-TERM (CURRENT) USE OF OTHER MEDICATIONS 07/01/2012 528.2 Oral Aphthae 07/01/2012 599.0 Urinary Tract Infection 07/01/2012 V58.69 LONG-TERM (CURRENT) USE OF OTHER MEDICATIONS 07/01/2012 EVERARDO CROWELL APRN 528.2 Oral Aphthae 07/01/2012 EVERARDO CROWELL APRN 599.0 Urinary Tract Infection 07/01/2012 EVERARDO CROWELL APRN V58.69 LONG-TERM (CURRENT) USE OF OTHER MEDICATIONS 07/01/2012 CAROLINA BEAVER MD 528.2 Oral Aphthae 07/01/2012 CAROLINA BEAVER MD 599.0 Urinary Tract Infection 07/01/2012 CAROLINA BEAVER MD V58.69 LONG-TERM (CURRENT) USE OF OTHER MEDICATIONS 07/01/2012 SOCRATES CHRISTOPHER EVERARDO BRENT 528.2 Oral Aphthae 07/01/2012 EVERARDO CROWELL APRN 599.0 Urinary Tract Infection 07/01/2012 SOCRATES CHRISTOPHER EVERARDO BRENT V58.69 LONG-TERM (CURRENT) USE OF OTHER MEDICATIONS 07/01/2012 DILAN REINA APRN R 528.2 Oral Aphthae 07/01/2012 DILAN REINA APRN R 599.0 Urinary Tract Infection 07/01/2012 DILAN REINA APRN R V58.69 LONG-TERM (CURRENT) USE OF OTHER MEDICATIONS 07/01/2012 SOCRATES CHRISTOPHER EVERARDO BRENT 528.2 Oral Aphthae 07/01/2012 EVERARDO CROWELL APRN 599.0 Urinary Tract Infection 07/01/2012 SOCRATES CHRISTOPHER EVERARDO BRENT V58.69 LONG-TERM (CURRENT) USE OF OTHER MEDICATIONS 07/01/2012 CAROLINA BEAVER MD 528.2 Oral Aphthae 07/01/2012 CAROLINA BEAVER MD 599.0 Urinary Tract Infection 07/01/2012 CAROLINA BEAVER MD V58.69 LONG-TERM (CURRENT) USE OF OTHER MEDICATIONS 07/01/2012 VASILE PORTILLO PSYD L 528.2 Oral Aphthae 07/01/2012 MCCJUSTYNA BENOIT, KASI L 599.0 Urinary Tract Infection 07/01/2012 VASILE PORTILLO PSYD ANN L V58.69 LONG-TERM (CURRENT) USE OF OTHER MEDICATIONS 07/01/2012 VASILE PORTILLO PSYD ANN L 528.2 Oral Aphthae 07/01/2012 MCCJUSTYNA BENOIT, KASI L 599.0 Urinary Tract Infection 07/01/2012 VASILE PORTILLO PSYD ANN L V58.69 LONG-TERM (CURRENT) USE OF OTHER MEDICATIONS 07/01/2012 VASILE PORTILLO PSYD ANN L 528.2 Oral Aphthae 07/01/2012 VASILE PORTILLO PSYD ANN L 599.0 Urinary Tract Infection 07/01/2012 VASILE PORTILLO PSYD ANN L V58.69 LONG-TERM (CURRENT) USE OF OTHER MEDICATIONS 07/01/2012 VASILE PORTILLO PSYD ANN L 528.2 Oral Aphthae 07/01/2012 VASILE PORTILLO PSYD ANN L 599.0 Urinary Tract Infection 07/01/2012 VASILE PORTILLO PSYD ANN L V58.69 LONG-TERM (CURRENT) USE OF OTHER MEDICATIONS 07/01/2012 CAROLINA BEAVER MD 528.2 Oral Aphthae 07/01/2012 CAROLINA BEAVER MD 599.0 Urinary Tract Infection 07/01/2012 CAROLINA BEAVER MD V58.69 LONG-TERM (CURRENT) USE OF OTHER MEDICATIONS 07/01/2012 CAROLINA BEAVER MD.2 Oral Aphthae 07/01/2012 CAROLINA BEAVER MD9.0 Urinary Tract Infection 07/01/2012 CAROLINA BEAVER MD V58.69 LONG-TERM (CURRENT) USE OF OTHER MEDICATIONS 07/01/2012 VASILE PORTILLO PSYD L 528.2 Oral Aphthae 07/01/2012 VASILE PORTILLO PSYD ANN L 599.0 Urinary Tract Infection 07/01/2012 VASILE PORTILLO PSYD ANN L V58.69 LONG-TERM (CURRENT) USE OF OTHER MEDICATIONS 07/01/2012 EVERARDO CROWELL APRN 528.2 Oral Aphthae 07/01/2012 EVERARDO CROWELL APRN 599.0 Urinary Tract Infection 07/01/2012 EVERARDO CROWELL APRN V58.69 LONG-TERM (CURRENT) USE OF OTHER MEDICATIONS 07/01/2012 SOCRATES FIELD REVIEWEREVERARDO Vinson 528.2 Oral Aphthae 07/01/2012 CROWELL FIELD REVIEWER, EVERARDO KENNEDY 599.0 URINARY TRACT INFECTION 07/01/2012 CROWELL FIELD REVIEWEREVERARDO Vinson V58.69 LONG-TERM (CURRENT) USE OF OTHER MEDICATIONS 07/01/2012 CAROLINA BEAVER MD 528.2 Oral Aphthae 07/01/2012 CAROLINA BEAVER MD 599.0 Urinary Tract Infection 07/01/2012 CAROLINA BEAVER MD V58.69 LONG-TERM (CURRENT) USE OF OTHER MEDICATIONS 07/01/2012 VASILE PORTILLO PSYD L 528.2 Oral Aphthae 07/01/2012 VASILE PORTILLO PSYD ANN L 599.0 Urinary Tract Infection 07/01/2012 VASILE PORTILLO PSYD ANN L V58.69 LONG-TERM (CURRENT) USE OF OTHER MEDICATIONS 07/01/2012 VASILE PORTILLO PSYD ANN L 528.2 Oral Aphthae 07/01/2012 VASILE PORTILLO PSYD ANN L 599.0 Urinary Tract Infection 07/01/2012 VASILE PORTILLO PSYD ANN L V58.69 LONG-TERM (CURRENT) USE OF OTHER MEDICATIONS 07/01/2012 CROWELL FIELD REVIEWEREVERARDO 528.2 Oral Aphthae 07/01/2012 CROWELL FIELD REVIEWEREVERARDO Vinson 599.0 Urinary Tract Infection 07/01/2012 CROWELL EVERARDO CHRISTOPHER V58.69 LONG-TERM (CURRENT) USE OF OTHER MEDICATIONS 07/01/2012 VASILE PORTILLO PSYD ANN L 528.2 Oral Aphthae 07/01/2012 VASILE PORTILLO PSYD ANN L 599.0 Urinary Tract Infection 07/01/2012 VASILE PORTILLO PSYD ANN L V58.69 LONG-TERM (CURRENT) USE OF OTHER MEDICATIONS 07/01/2012 CAROLINA BEAVER MD 528.2 Oral Aphthae 07/01/2012 CAROLINA BEAVER MD 599.0 Urinary Tract Infection 07/01/2012 CAROLINA BEAVER MD V58.69 LONG-TERM (CURRENT) USE OF OTHER MEDICATIONS 07/01/2012 VASILE PORTILLO PSYD L 528.2 Oral Aphthae 07/01/2012 VASILE PORTILLO PSYD L 599.0 Urinary Tract Infection 07/01/2012 VASILE PORTILLO PSYD L V58.69 LONG-TERM (CURRENT) USE OF OTHER MEDICATIONS 07/01/2012 VASILE PORTILLO PSYD L 528.2 Oral Aphthae 07/01/2012 VASILE PORTILLO PSYD L 599.0 Urinary Tract Infection 07/01/2012 VASILE PORTILLO PSYD V58.69 LONG-TERM (CURRENT) USE OF OTHER MEDICATIONS 07/01/2012 CAROLINA BEAVER MD 528.2 Oral Aphthae 07/01/2012 CAROLINA BEAVER MD 599.0 Urinary Tract Infection 07/01/2012 CAROLINA BEAVER MD V58.69 LONG-TERM (CURRENT) USE OF OTHER MEDICATIONS 07/01/2012 BALWINDER DPM, MATTY 528.2 Oral Aphthae 07/01/2012 BALWINDER DPM, MATTY 599.0 Urinary Tract Infection 07/01/2012 BALWINDER DPM, MATTY V58.69 LONG-TERM (CURRENT) USE OF OTHER MEDICATIONS 07/01/2012 SANDY FIELD REVIEWER MELISSA 528.2 Oral Aphthae 07/01/2012 SANDY FIELD REVIEWER, MELISSA 599.0 Urinary Tract Infection 07/01/2012 SANDY FIELD REVIEWER, MELISSA V58.69 LONG-TERM (CURRENT) USE OF OTHER MEDICATIONS 07/01/2012 VASILE PORTILLO PSYD L 528.2 Oral Aphthae 07/01/2012 VASILE PORTILLO PSYD L 599.0 Urinary Tract Infection 07/01/2012 VASILE PORTILLO PSYD V58.69 LONG-TERM (CURRENT) USE OF OTHER MEDICATIONS 07/01/2012 VASILE PORTILLO PSYD L 528.2 Oral Aphthae 07/01/2012 VASILE PORTILLO PSYD L 599.0 Urinary Tract Infection 07/01/2012 VASILE PORTILLO PSYD L V58.69 LONG-TERM (CURRENT) USE OF OTHER MEDICATIONS 07/01/2012 CAROLINA BEAVER MD 528.2 Oral Aphthae 07/01/2012 CAROLINA BEAVER MD 599.0 Urinary Tract Infection 07/01/2012 CAROLINA BEAVER MD V58.69 LONG-TERM (CURRENT) USE OF OTHER MEDICATIONS 07/01/2012 VASILE PORTILLO PSYD L 528.2 Oral Aphthae 07/01/2012 VASILE PORTILLO PSYD 599.0 Urinary Tract Infection 07/01/2012 VASILE PORTILLO PSYD V58.69 LONG-TERM (CURRENT) USE OF OTHER MEDICATIONS 07/01/2012 MELISSA DELGADO APRN 528.2 Oral Aphthae 07/01/2012 MELISSA DELGADO APRN 599.0 Urinary Tract Infection 07/01/2012 MELISSA DELGADO APRN V58.69 LONG-TERM (CURRENT) USE OF OTHER MEDICATIONS 07/01/2012 CAROLINA BEAVER MD 528.2 Oral Aphthae 07/01/2012 CAROLINA BEAVER MD 599.0 Urinary Tract Infection 07/01/2012 CAROLINA BEAVER MD V58.69 LONG-TERM (CURRENT) USE OF OTHER MEDICATIONS 07/01/2012 SANDY FIELD REVIEWERMELISSA Vinson 528.2 Oral Aphthae 07/01/2012 SANDY FIELD REVIEWERMELISSA Vinson 599.0 Urinary Tract Infection 07/01/2012 MELISSA DELGADO APRN V58.69 LONG-TERM (CURRENT) USE OF OTHER MEDICATIONS 07/01/2012 CAROLINA BEAVER MD.2 Oral Aphthae 07/01/2012 CAROLINA BEAVER MD 599.0 Urinary Tract Infection 07/01/2012 CAROLINA BEAVER MD V58.69 LONG-TERM (CURRENT) USE OF OTHER MEDICATIONS 07/01/2012 SANDY FIELD REVIEWER, MELISSA 528.2 Oral Aphthae 07/01/2012 SANDY FIELD REVIEWERMELISSA Vinson 599.0 Urinary Tract Infection 07/01/2012 MELISSA DELGADO APRN V58.69 LONG-TERM (CURRENT) USE OF OTHER MEDICATIONS 07/01/2012 VASILE PORTILLO PSYD L 528.2 Oral Aphthae 07/01/2012 VASILE PORTILLO PSYD L 599.0 Urinary Tract Infection 07/01/2012 VASILE PORTILLO PSYD V58.69 LONG-TERM (CURRENT) USE OF OTHER MEDICATIONS 07/11/2012 CAROLINA BEAVER MD V04.81 Flu Dx (3 Yrs And Above, Im) 07/11/2012 SOCRATES CHRISTOPHER EVREARDO BRENT V04.81 Flu Dx (3 Yrs And Above, Im) 07/11/2012 V04.81 Flu Dx (3 Yrs And Above, Im) 07/11/2012 CAROLINA BEAVER MD V04.81 Flu Dx (3 Yrs And Above, Im) 07/11/2012 CAROLINA BEAVER MD V04.81 Flu Dx (3 Yrs And Above, Im) 07/11/2012 V04.81 Flu Dx (3 Yrs And Above, Im) 07/11/2012 V04.81 Flu Dx (3 Yrs And Above, Im) 07/11/2012 SOCRATES CHRISTOPHER EVERARDO BRENT V04.81 Flu Dx (3 Yrs And Above, Im) 07/11/2012 CAROLINA BEAVER MD V04.81 Flu Dx (3 Yrs And Above, Im) 07/11/2012 SOCRATES CHRISTOPHER EVERARDO BRENT V04.81 Flu Dx (3 Yrs And Above, Im) 07/11/2012 DILAN REINA APRN V04.81 Flu Dx (3 Yrs And Above, Im) 07/11/2012 SOCRATES CHRISTOPHER EVERARDO BRENT V04.81 Flu Dx (3 Yrs And Above, Im) 07/11/2012 CAROLINA BEAVER MD V04.81 Flu Dx (3 Yrs And Above, Im) 07/11/2012 VASILE PORTILLO PSYD L V04.81 Flu Dx (3 Yrs And Above, Im) 07/11/2012 VASILE PORTILLO PSYD L V04.81 Flu Dx (3 Yrs And Above, Im) 07/11/2012 VASILE PORTILLO PSYD L V04.81 Flu Dx (3 Yrs And Above, Im) 07/11/2012 VASILE PORTILLO PSYD L V04.81 Flu Dx (3 Yrs And Above, Im) 07/11/2012 CAROLINA BEAVER MD V04.81 Flu Dx (3 Yrs And Above, Im) 07/11/2012 CAROLINA BEAVER MD V04.81 Flu Dx (3 Yrs And Above, Im) 07/11/2012 VASILE PORTILLO PSYD V04.81 Flu Dx (3 Yrs And Above, Im) 07/11/2012 SOCRATES CHRISTOPHER EVERARDO BRENT V04.81 Flu Dx (3 Yrs And Above, Im) 07/11/2012 SOCRATES CHRISTOPHER EVERRADO BRENT V04.81 FLU DX (3 YRS AND ABOVE, IM) 07/11/2012 CAROLINA BEAVER MD V04.81 Flu Dx (3 Yrs And Above, Im) 07/11/2012 VASILE PORTILLO PSYD L V04.81 Flu Dx (3 Yrs And Above, Im) 07/11/2012 VASILE PORTILLO PSYD L V04.81 Flu Dx (3 Yrs And Above, Im) 07/11/2012 SOCRATES CHRISTOPHER EVERARDO BRENT V04.81 Flu Dx (3 Yrs And Above, Im) 07/11/2012 VASILE PORTILLO PSYD L V04.81 Flu Dx (3 Yrs And Above, Im) 07/11/2012 CAROLINA BEAVER MD V04.81 Flu Dx (3 Yrs And Above, Im) 07/11/2012 VASILE PORTILLO PSYD L V04.81 Flu Dx (3 Yrs And Above, Im) 07/11/2012 VASILE PORTILLO PSYD V04.81 Flu Dx (3 Yrs And Above, Im) 07/11/2012 CAROLINA BEAVER MD V04.81 Flu Dx (3 Yrs And Above, Im) 07/11/2012 MATTY BRITT DPM V04.81 Flu Dx (3 Yrs And Above, Im) 07/11/2012 MELISSA DELGADO APRN V04.81 Flu Dx (3 Yrs And Above, Im) 07/11/2012 VASILE PORTILLO PSYD V04.81 Flu Dx (3 Yrs And Above, Im) 07/11/2012 VASILE PORTILLO PSYD L V04.81 Flu Dx (3 Yrs And Above, Im) 07/11/2012 CAROLINA BEAVER MD V04.81 Flu Dx (3 Yrs And Above, Im) 07/11/2012 VASILE PORTILLO PSYD L V04.81 Flu Dx (3 Yrs And Above, Im) 07/11/2012 SANDY CHRISTOPHER MELISSA V04.81 Flu Dx (3 Yrs And Above, Im) 07/11/2012 CAROLINA BEAVER MD V04.81 Flu Dx (3 Yrs And Above, Im) 07/11/2012 SANDY CHRISTOPHER MELISSA V04.81 Flu Dx (3 Yrs And Above, Im) 07/11/2012 CAROLINA BEAVER MD V04.81 Flu Dx (3 Yrs And Above, Im) 07/11/2012 SANDY CHRISTOPHER, MELISSA V04.81 Flu Dx (3 Yrs And Above, Im) 07/11/2012 VASILE PORTILLO PSYD L V04.81 Flu Dx (3 Yrs And Above, Im) 12/26/2012 379.91 PAIN IN OR AROUND EYE 12/26/2012 CAROLINA BEAVER MD 379.91 Pain In Or Around Eye 12/26/2012 CAROLINA BEAVER MD 379.91 Pain In Or Around Eye 12/26/2012 379.91 Pain In Or Around Eye 12/26/2012 379.91 Pain In Or Around Eye 12/26/2012 EVERARDO CROWELL APRN 379.91 Pain In Or Around Eye 12/26/2012 CAROLINA BEAVER MD 379.91 Pain In Or Around Eye 12/26/2012 EVERARDO CROWELL APRN 379.91 Pain In Or Around Eye 12/26/2012 DILAN REINA APRN 379.91 Pain In Or Around Eye 12/26/2012 EVERARDO CROWELL APRN 379.91 Pain In Or Around Eye 12/26/2012 CAROLINA BEAVER MD 379.91 Pain In Or Around Eye 12/26/2012 VASILE PORTILLO PSYD 379.91 Pain In Or Around Eye 12/26/2012 VASILE PORTILLO PSYD L 379.91 Pain In Or Around Eye 12/26/2012 MCCLEEARY PSYD, KASI L 379.91 Pain In Or Around Eye 12/26/2012 VASILE PORTILLO PSYD ANN L 379.91 Pain In Or Around Eye 12/26/2012 CAROLINA BEAVER MD 379.91 Pain In Or Around Eye 12/26/2012 CAROLINA BEAVER MD 379.91 Pain In Or Around Eye 12/26/2012 VASILE PORTILLO PSYD ANN L 379.91 Pain In Or Around Eye 12/26/2012 SOCRATES CHRISTOPHEREVERARDO 379.91 Pain In Or Around Eye 12/26/2012 CAROLINA BEAVER MD 379.91 Pain In Or Around Eye 12/26/2012 VASILE PORTILLO PSYD ANN L 379.91 Pain In Or Around Eye 12/26/2012 VASILE PORTILLO PSYD ANN L 379.91 Pain In Or Around Eye 12/26/2012 SOCRATES CHRISTOPHER EVERARDO KENNEDY 379.91 Pain In Or Around Eye 12/26/2012 VASILE PORTILLO PSYD ANN L 379.91 Pain In Or Around Eye 12/26/2012 CAROLINA BEAVER MD 379.91 Pain In Or Around Eye 12/26/2012 VASILE PORTILLO PSYD ANN L 379.91 Pain In Or Around Eye 12/26/2012 VASILE PORTILLO PSYD ANN L 379.91 Pain In Or Around Eye 12/26/2012 CAROLINA BEAVER MD 379.91 Pain In Or Around Eye 12/26/2012 MATTY BRITT DPM 379.91 Pain In Or Around Eye 12/26/2012 MELISSA DELGADO APRN 379.91 Pain In Or Around Eye 12/26/2012 VASILE PORTILLO PSYD ANN L 379.91 Pain In Or Around Eye 12/26/2012 VASILE PORTILLO PSYD ANN L 379.91 Pain In Or Around Eye 12/26/2012 CAROLINA BEAVER MD 379.91 Pain In Or Around Eye 12/26/2012 VASILE PORTILLO PSYD ANN L 379.91 Pain In Or Around Eye 12/26/2012 TED DELGADO APRNETTE 379.91 Pain In Or Around Eye 12/26/2012 CAROLINA BEAVER MD 379.91 Pain In Or Around Eye 12/26/2012 MELISSA DELGADO APRN 379.91 Pain In Or Around Eye 12/26/2012 CAROLINA BEAVER MD 379.91 Pain In Or Around Eye 12/26/2012 MELISSA DELGADO APRN 379.91 Pain In Or Around Eye 12/26/2012 VASILE PORTILLO PSYD ANN L 379.91 Pain In Or Around Eye 07/06/2013 SOCRATES CHRISTOPHER EVERARDO KENNEDY 788.1 DYSURIA 08/07/2013 CAROLINA BEAVER MD 309.0 ADJUSTMENT DISORDER WITH DEPRESSED MOOD 08/07/2013 SOCRATES CHRISTOPHER EVERARDO BRENT 309.0 ADJUSTMENT DISORDER WITH DEPRESSED MOOD 08/07/2013 LATOSHA CHRISTOPHER, DILAN R 309.0 ADJUSTMENT DISORDER WITH DEPRESSED MOOD 08/07/2013 SOCRATES CHRISTOPHER EVERARDO BRENT 309.0 ADJUSTMENT DISORDER WITH DEPRESSED MOOD 08/07/2013 CAROLINA BEAVER MD 309.0 ADJUSTMENT DISORDER WITH DEPRESSED MOOD 08/07/2013 VASILE PORTILLO PSYD ANN L 309.0 ADJUSTMENT DISORDER WITH DEPRESSED MOOD 08/07/2013 VASILE PORTILLO PSYD ANN L 309.0 ADJUSTMENT DISORDER WITH DEPRESSED MOOD 08/07/2013 VASILE PORTILLO PSYD ANN L 309.0 ADJUSTMENT DISORDER WITH DEPRESSED MOOD 08/07/2013 LINDSEY BENOIT KASI L 309.0 ADJUSTMENT DISORDER WITH DEPRESSED MOOD 08/07/2013 CAROLINA BEAVER MD 309.0 ADJUSTMENT DISORDER WITH DEPRESSED MOOD 08/07/2013 CAROL[place] BEAVER MD 309.0 ADJUSTMENT DISORDER WITH DEPRESSED MOOD 08/07/2013 VASILE PORTILLO PSYD ANN L 309.0 ADJUSTMENT DISORDER WITH DEPRESSED MOOD 08/07/2013 SOCRATES CHRISTOPHER EVERARDO BRENT 309.0 ADJUSTMENT DISORDER WITH DEPRESSED MOOD 08/07/2013 CAROL[place] BEAVER MD 309.0 ADJUSTMENT DISORDER WITH DEPRESSED MOOD 08/07/2013 VASILE PORTILLO PSYD ANN L 309.0 ADJUSTMENT DISORDER WITH DEPRESSED MOOD 08/07/2013 VASILE PORTILLO PSYD ANN L 309.0 ADJUSTMENT DISORDER WITH DEPRESSED MOOD 08/07/2013 EVERARDO CROWELL APRN 309.0 ADJUSTMENT DISORDER WITH DEPRESSED MOOD 08/07/2013 VASILE PORTLILO PSYD ANN L 309.0 ADJUSTMENT DISORDER WITH DEPRESSED MOOD 08/07/2013 CAROLINA BEAVER MD 309.0 ADJUSTMENT DISORDER WITH DEPRESSED MOOD 08/07/2013 VASILE PORTILLO PSYD ANN L 309.0 ADJUSTMENT DISORDER WITH DEPRESSED MOOD 08/07/2013 VASILE PORTILLO PSYD ANN L 309.0 ADJUSTMENT DISORDER WITH DEPRESSED MOOD 08/07/2013 CAROLINA BEVAER MD 309.0 ADJUSTMENT DISORDER WITH DEPRESSED MOOD 08/07/2013 BALWINDER JASPREETPaola, MATTY 309.0 ADJUSTMENT DISORDER WITH DEPRESSED MOOD 08/07/2013 SANDY FIELD REVIEWER, MELISSA 309.0 ADJUSTMENT DISORDER WITH DEPRESSED MOOD 08/07/2013 VASILE PORTILLO PSYD ANN L 309.0 ADJUSTMENT DISORDER WITH DEPRESSED MOOD 08/07/2013 VASILE PORTILLO PSYD ANN L 309.0 ADJUSTMENT DISORDER WITH DEPRESSED MOOD 08/07/2013 CAROLINA BEAVER MD 309.0 ADJUSTMENT DISORDER WITH DEPRESSED MOOD 08/07/2013 VASILE PORTILLO PSYD ANN L 309.0 ADJUSTMENT DISORDER WITH DEPRESSED MOOD 08/07/2013 SANDY FIELD REVIEWER, MELISSA 309.0 ADJUSTMENT DISORDER WITH DEPRESSED MOOD 08/07/2013 CAROLINA BEAVER MD 309.0 ADJUSTMENT DISORDER WITH DEPRESSED MOOD 08/07/2013 SANDY FIELD REVIEWER, MELISSA 309.0 ADJUSTMENT DISORDER WITH DEPRESSED MOOD 08/07/2013 CAROLINA BEAVER MD 309.0 ADJUSTMENT DISORDER WITH DEPRESSED MOOD 08/07/2013 SANDY FIELD REVIEWER, MELISSA 309.0 ADJUSTMENT DISORDER WITH DEPRESSED MOOD 08/07/2013 VASILE PORTILLO PSYD ANN L 309.0 ADJUSTMENT DISORDER WITH DEPRESSED MOOD 10/26/2013 DILAN REINA APRN 389.00 CONDUCTIVE HEARING LOSS UNSPECIFIED 10/26/2013 SOCRATES CHRISTOPHER EVERARDO KENNEDY 389.00 CONDUCTIVE HEARING LOSS UNSPECIFIED 10/26/2013 CAROLINA BEAVER MD 389.00 CONDUCTIVE HEARING LOSS UNSPECIFIED 10/26/2013 VASILE PORTILLO PSYD ANN L 389.00 CONDUCTIVE HEARING LOSS UNSPECIFIED 10/26/2013 VASIEL PORTILLO PSYD ANN L 389.00 CONDUCTIVE HEARING LOSS UNSPECIFIED 10/26/2013 VASILE PORTILLO PSYD ANN L 389.00 CONDUCTIVE HEARING LOSS UNSPECIFIED 10/26/2013 VASILE PORTILLO PSYD ANN L 389.00 CONDUCTIVE HEARING LOSS UNSPECIFIED 10/26/2013 CAROLINA BEAVER MD 389.00 CONDUCTIVE HEARING LOSS UNSPECIFIED 10/26/2013 CAROLINA BEAVER MD 389.00 CONDUCTIVE HEARING LOSS UNSPECIFIED 10/26/2013 VASILE PORTILLO PSYD ANN L 389.00 CONDUCTIVE HEARING LOSS UNSPECIFIED 10/26/2013 SOCRATES CHRISTOPHER EVERARDO KENNEDY 389.00 CONDUCTIVE HEARING LOSS UNSPECIFIED 10/26/2013 CAROLINA BEAVER MD 389.00 CONDUCTIVE HEARING LOSS UNSPECIFIED 10/26/2013 VASILE PORTILLO PSYD ANN L 389.00 CONDUCTIVE HEARING LOSS UNSPECIFIED 10/26/2013 VASILE PORTILLO PSYD ANN L 389.00 CONDUCTIVE HEARING LOSS UNSPECIFIED 10/26/2013 SOCRATES CHRISTOPHER EVERARDO KENNEDY 389.00 CONDUCTIVE HEARING LOSS UNSPECIFIED 10/26/2013 VASILE PORTILLO PSYD ANN L 389.00 CONDUCTIVE HEARING LOSS UNSPECIFIED 10/26/2013 CAROLINA BEAVER MD 389.00 CONDUCTIVE HEARING LOSS UNSPECIFIED 10/26/2013 VASILE PORTILLO PSYD ANN L 389.00 CONDUCTIVE HEARING LOSS UNSPECIFIED 10/26/2013 VASILE PORTILLO PSYD ANN L 389.00 CONDUCTIVE HEARING LOSS UNSPECIFIED 10/26/2013 CAROLINA BEAVER MD 389.00 CONDUCTIVE HEARING LOSS UNSPECIFIED 10/26/2013 BALWINDER VOGELM, MATTY 389.00 CONDUCTIVE HEARING LOSS UNSPECIFIED 10/26/2013 SANDY FIELD REVIEWER, MELISSA 389.00 CONDUCTIVE HEARING LOSS UNSPECIFIED 10/26/2013 VASILE PORTILLO PSYD ANN L 389.00 CONDUCTIVE HEARING LOSS UNSPECIFIED 10/26/2013 VASILE PORTILLO PSYD ANN L 389.00 CONDUCTIVE HEARING LOSS UNSPECIFIED 10/26/2013 CAROLINA BEAVER MD 389.00 CONDUCTIVE HEARING LOSS UNSPECIFIED 10/26/2013 VASILE PORTILLO PSYD ANN L 389.00 CONDUCTIVE HEARING LOSS UNSPECIFIED 10/26/2013 SANDY FIELD REVIEWER, MELISSA 389.00 CONDUCTIVE HEARING LOSS UNSPECIFIED 10/26/2013 CAROLINA BEAVER MD 389.00 CONDUCTIVE HEARING LOSS UNSPECIFIED 10/26/2013 SANDY FIELD REVIEWER, MELISSA 389.00 CONDUCTIVE HEARING LOSS UNSPECIFIED 10/26/2013 CAROLINA BEAVER MD 389.00 CONDUCTIVE HEARING LOSS UNSPECIFIED 10/26/2013 SANDY FIELD REVIEWER, MELISSA 389.00 CONDUCTIVE HEARING LOSS UNSPECIFIED 10/26/2013 VASILE PORTILLO PSYD ANN L 389.00 CONDUCTIVE HEARING LOSS UNSPECIFIED 01/22/2014 VASILE PORTILLO PSYD ANN L 296.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/O PSYCHOTIC BEHAVIOR 01/22/2014 VASILE PORTILLO PSYD L 296.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/O PSYCHOTIC BEHAVIOR 01/22/2014 CAROLINA BEAVER MD 296.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/O PSYCHOTIC BEHAVIOR 01/22/2014 CAROLINA BEAVER MD 296.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/O PSYCHOTIC BEHAVIOR 01/22/2014 VASILE PORTILLO PSYD ANN L 296.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/O PSYCHOTIC BEHAVIOR 01/22/2014 SOCRATES CHRISTPOHER EVERARDO KENNEDY 296.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/O PSYCHOTIC BEHAVIOR 01/22/2014 CAROLINA BEAVER MD 296.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/O PSYCHOTIC BEHAVIOR 01/22/2014 VASILE PORTILLO PSYD ANN L 296.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/O PSYCHOTIC BEHAVIOR 01/22/2014 VASILE PORTILLO PSYD ANN L 296.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/O PSYCHOTIC BEHAVIOR 01/22/2014 SOCRATES CHRISTOPHER EVERARDO KENNEDY 296.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/O PSYCHOTIC BEHAVIOR 01/22/2014 VASILE PORTILLO PSYD ANN L 296.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/O PSYCHOTIC BEHAVIOR 01/22/2014 CAROLINA BEAVER MD 296.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/O PSYCHOTIC BEHAVIOR 01/22/2014 VASILE PORTILLO PSYD ANN L 296.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/O PSYCHOTIC BEHAVIOR 01/22/2014 VASILE PORTILLO PSYD ANN L 296.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/O PSYCHOTIC BEHAVIOR 01/22/2014 CAROLINA BEAVER MD 296.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/O PSYCHOTIC BEHAVIOR 01/22/2014 BALWINDER HOBSON, MATTY 296.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/O PSYCHOTIC BEHAVIOR 01/22/2014 MELISSA DELGADO APRN 296.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/O PSYCHOTIC BEHAVIOR 01/22/2014 VASILE PORTILLO PSYD ANN L 296.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/O PSYCHOTIC BEHAVIOR 01/22/2014 VASILE PORTILLO PSYD ANN L 296.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/O PSYCHOTIC BEHAVIOR 01/22/2014 CAROLINA BEAVER MD 296.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/O PSYCHOTIC BEHAVIOR 01/22/2014 VASILE PORTILLO PSYD ANN L 296.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/O PSYCHOTIC BEHAVIOR 01/22/2014 TED DELGADO APRNETTE 296.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/O PSYCHOTIC BEHAVIOR 01/22/2014 CAROLINA BEAVER MD 296.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/O PSYCHOTIC BEHAVIOR 01/22/2014 TED DELGADO APRNETTE 296.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/O PSYCHOTIC BEHAVIOR 01/22/2014 CAROLINA BEAVER MD 296.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/O PSYCHOTIC BEHAVIOR 01/22/2014 TED DELGADO APRNETTE 296.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/O PSYCHOTIC BEHAVIOR 01/22/2014 VASILE PORTILLO PSYD ANN L 296.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/O PSYCHOTIC BEHAVIOR 01/23/2014 VASILE PORTILLO PSYD ANN L 296.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/O PSYCHOTIC BEHAVIOR 01/23/2014 VASILE PORTILLO PSYD ANN L 296.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/O PSYCHOTIC BEHAVIOR 01/23/2014 CAROLINA BEAVER MD 296.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/O PSYCHOTIC BEHAVIOR 01/23/2014 CAROLINA BEAVER MD 296.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/O PSYCHOTIC BEHAVIOR 01/23/2014 VASILE PORTILLO PSYD ANN L 296.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/O PSYCHOTIC BEHAVIOR 01/23/2014 SOCRATES CHRISTOPHER EVERARDO BRENT 296.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/O PSYCHOTIC BEHAVIOR 01/23/2014 CAROLINA BEAVER MD 296.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/O PSYCHOTIC BEHAVIOR 01/23/2014 VASILE PORTILLO PSYD ANN L 296.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/O PSYCHOTIC BEHAVIOR 01/23/2014 VASILE PORTILLO PSYD ANN L 296.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/O PSYCHOTIC BEHAVIOR 01/23/2014 SOCRATES CHRISTOPHER EVERARDO BRENT 296.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/O PSYCHOTIC BEHAVIOR 01/23/2014 VASILE PORTILLO PSYD ANN L 296.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/O PSYCHOTIC BEHAVIOR 01/23/2014 CAROLINA BEAVER MD 296.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/O PSYCHOTIC BEHAVIOR 01/23/2014 VASILE PORTILLO PSYD ANN L 296.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/O PSYCHOTIC BEHAVIOR 01/23/2014 VASILE PORTILLO PSYD ANN L 296.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/O PSYCHOTIC BEHAVIOR 01/23/2014 CAROLINA BEAVER MD 296.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/O PSYCHOTIC BEHAVIOR 01/23/2014 BALWINDER HOBSON, MATTY 296.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/O PSYCHOTIC BEHAVIOR 01/23/2014 SANDY FIELD REVIEWER, MELISSA 296.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/O PSYCHOTIC BEHAVIOR 01/23/2014 VASILE PORTILLO PSYD ANN L 296.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/O PSYCHOTIC BEHAVIOR 01/23/2014 VASILE PORTILLO PSYD ANN L 296.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/O PSYCHOTIC BEHAVIOR 01/23/2014 CAROLINA BEAVER MD 296.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/O PSYCHOTIC BEHAVIOR 01/23/2014 VASILE PORTILLO PSYD ANN L 296.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/O PSYCHOTIC BEHAVIOR 01/23/2014 SANDY FIELD REVIEWER, MELISSA 296.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/O PSYCHOTIC BEHAVIOR 01/23/2014 CAROLINA BEAVER MD 296.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/O PSYCHOTIC BEHAVIOR 01/23/2014 SANDY FIELD REVIEWER, MLEISSA 296.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/O PSYCHOTIC BEHAVIOR 01/23/2014 CAROLINA BEAVER MD 296.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/O PSYCHOTIC BEHAVIOR 01/23/2014 SANDY CHRISTOPHER, MELISSA 296.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/O PSYCHOTIC BEHAVIOR 01/23/2014 VASILE PORTILLO PSYD ANN L 296.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/O PSYCHOTIC BEHAVIOR 04/04/2014 CAROLINA BEAVER MD 892.0 OPEN WOUND OF FOOT EXCEPT TOE(S) ALONE WITHOUT COMPLICATION 04/04/2014 CAROLINA BEAVER MD V06.1 TDAP DX 04/04/2014 VASILE PORTILLO PSYD L 892.0 OPEN WOUND OF FOOT EXCEPT TOE(S) ALONE WITHOUT COMPLICATION 04/04/2014 VASILE PORTILLO PSYD L V06.1 TDAP DX 04/04/2014 VASILE PORTILLO PSYD L 892.0 OPEN WOUND OF FOOT EXCEPT TOE(S) ALONE WITHOUT COMPLICATION 04/04/2014 VASILE PORTILLO PSYD V06.1 TDAP DX 04/04/2014 EVERARDO CROWELL APRN 892.0 OPEN WOUND OF FOOT EXCEPT TOE(S) ALONE WITHOUT COMPLICATION 04/04/2014 EVERARDO CROWELL APRN V06.1 TDAP DX 04/04/2014 LINDSEY BENOIT, VASILE JEAN L 892.0 OPEN WOUND OF FOOT EXCEPT TOE(S) ALONE WITHOUT COMPLICATION 04/04/2014 LINDSEY BENOIT, VASILE JEAN L V06.1 TDAP DX 04/04/2014 CAROLINA BEAVER MD 892.0 OPEN WOUND OF FOOT EXCEPT TOE(S) ALONE WITHOUT COMPLICATION 04/04/2014 CAROLINA BEAVER MD V06.1 TDAP DX 04/04/2014 LINDSEY BENOIT, VASILE JEAN L 892.0 OPEN WOUND OF FOOT EXCEPT TOE(S) ALONE WITHOUT COMPLICATION 04/04/2014 VASILE PORTILLO PSYD L V06.1 TDAP DX 04/04/2014 LINDSEY BENOIT, KASI L 892.0 OPEN WOUND OF FOOT EXCEPT TOE(S) ALONE WITHOUT COMPLICATION 04/04/2014 LINDSEY BENOIT, VASILE JEAN L V06.1 TDAP DX 04/04/2014 CAROLINA BEAVER MD 892.0 OPEN WOUND OF FOOT EXCEPT TOE(S) ALONE WITHOUT COMPLICATION 04/04/2014 CAROLINA BEAVER MD V06.1 TDAP DX 04/04/2014 MATTY BRITT DPM 892.0 OPEN WOUND OF FOOT EXCEPT TOE(S) ALONE WITHOUT COMPLICATION 04/04/2014 BALWINDER HOBSON MATTY V06.1 TDAP DX 04/04/2014 SANDYMELISSA QUACH APRN 892.0 OPEN WOUND OF FOOT EXCEPT TOE(S) ALONE WITHOUT COMPLICATION 04/04/2014 SANYD CHRISTOPHER MELISSA V06.1 TDAP DX 04/04/2014 LINDSEY BNEOIT, KASI L 892.0 OPEN WOUND OF FOOT EXCEPT TOE(S) ALONE WITHOUT COMPLICATION 04/04/2014 VASILE PORTILLO PSYD L V06.1 TDAP DX 04/04/2014 LINDSEY BENOIT, KASI L 892.0 OPEN WOUND OF FOOT EXCEPT TOE(S) ALONE WITHOUT COMPLICATION 04/04/2014 VASILE PORTILLO PSYD L V06.1 TDAP DX 04/04/2014 CAROLINA BEAVER MD 892.0 OPEN WOUND OF FOOT EXCEPT TOE(S) ALONE WITHOUT COMPLICATION 04/04/2014 CAROLINA BEAVER MD V06.1 TDAP DX 04/04/2014 VASILE PORTILLO PSYD 892.0 OPEN WOUND OF FOOT EXCEPT TOE(S) ALONE WITHOUT COMPLICATION 04/04/2014 VASILE PORTILLO PSYD V06.1 TDAP DX 04/04/2014 SANDY FIELD REVIEWER, MELISSA 892.0 OPEN WOUND OF FOOT EXCEPT TOE(S) ALONE WITHOUT COMPLICATION 04/04/2014 SANDY FIELD REVIEWER, MELISSA V06.1 TDAP DX 04/04/2014 CAROLINA BEAVER MD 892.0 OPEN WOUND OF FOOT EXCEPT TOE(S) ALONE WITHOUT COMPLICATION 04/04/2014 CAROLINA BEAVER MD V06.1 TDAP DX 04/04/2014 SANDY FIELD REVIEWER, MELISSA 892.0 OPEN WOUND OF FOOT EXCEPT TOE(S) ALONE WITHOUT COMPLICATION 04/04/2014 SANDY FIELD REVIEWER, MELISSA V06.1 TDAP DX 04/04/2014 CAROLINA BEAVER MD 892.0 OPEN WOUND OF FOOT EXCEPT TOE(S) ALONE WITHOUT COMPLICATION 04/04/2014 CAROLINA BEAVER MD V06.1 TDAP DX 04/04/2014 SANDY FIELD REVIEWER, MELISSA 892.0 OPEN WOUND OF FOOT EXCEPT TOE(S) ALONE WITHOUT COMPLICATION 04/04/2014 SANDY FIELD REVIEWER, MELISSA V06.1 TDAP DX 04/04/2014 VASILE PORTILLO PSYD 892.0 OPEN WOUND OF FOOT EXCEPT TOE(S) ALONE WITHOUT COMPLICATION 04/04/2014 VASILE PORTILLO PSYD V06.1 TDAP DX 08/28/2014 JUAN CARLOS NAGY DO Ot 205.00 ACUTE MYELOID LEUKEMIA, W/O MENTION ACHI 08/28/2014 JUAN CARLOS NAGY DO Ot 272.4 HYPERLIPIDEMIA NEC/NOS 08/28/2014 JUAN CARLOS NAGY DO Ot 300.00 ANXIETY STATE NOS 08/28/2014 JUAN CARLOS NAGY DO Ot 305.00 ALCOHOL ABUSE-UNSPEC 08/28/2014 JUAN CARLOS NAGY DO Ot 305.1 TOBACCO USE DISORDER 08/28/2014 JUAN CARLOS NAGY DO Ot 311 DEPRESSIVE DISORDER NEC 08/28/2014 JUAN CARLOS NAGY DO Ot 401.9 HYPERTENSION NOS 08/28/2014 JUAN CARLOS NAGY DO Ot 850.0 CONCUSSION W/O COMA 08/28/2014 JUAN CARLOS NAGY DO Ot 920 CONTUSION FACE/SCALP/NCK 08/28/2014 JUAN CARLOS NAGY DO Ot E816.0 LOSS CONTROL MV ACC-DRIV 08/28/2014 JUAN CARLOS NAGY DO Ot V03.82 PROPHYLACTIC VACC AGAINST STREPTOCOCCUS 08/28/2014 JUAN CARLOS NAGY DO Ot V58.67 LONG-TERM (CURRENT) USE OF INSULIN 09/20/2014 MATTY BRITT DPM 401.1 BENIGN ESSENTIAL HYPERTENSION 09/20/2014 MATTY RBITT DPM 707.15 ULCER-FOOT/TOES 09/20/2014 MELISSA DELGADO APRN 401.1 BENIGN ESSENTIAL HYPERTENSION 09/20/2014 MELISSA DELGADO APRN 707.15 ULCER-FOOT/TOES 09/20/2014 VASILE PORTILLO PSYD L 401.1 BENIGN ESSENTIAL HYPERTENSION 09/20/2014 VASILE PORTILLO PSYD L 707.15 ULCER-FOOT/TOES 09/20/2014 VASILE PORTILLO PSYD L 401.1 BENIGN ESSENTIAL HYPERTENSION 09/20/2014 VASILE PORTILLO PSYD L 707.15 ULCER-FOOT/TOES 09/20/2014 CAROLINA BEAVER MD 401.1 BENIGN ESSENTIAL HYPERTENSION 09/20/2014 CAROLINA BEAVER MD 707.15 ULCER-FOOT/TOES 09/20/2014 VASILE PORTILLO PSYD L 401.1 BENIGN ESSENTIAL HYPERTENSION 09/20/2014 VASILE PORTILLO PSYD 707.15 ULCER-FOOT/TOES 09/20/2014 MELISSA DELGADO APRN 401.1 BENIGN ESSENTIAL HYPERTENSION 09/20/2014 MELISSA DELGADO APRN 707.15 ULCER-FOOT/TOES 09/20/2014 CAROLINA BEAVER MD 401.1 BENIGN ESSENTIAL HYPERTENSION 09/20/2014 CAROLINA BEAVER MD7.15 ULCER-FOOT/TOES 09/20/2014 MELISSA DELGADO APRN 401.1 BENIGN ESSENTIAL HYPERTENSION 09/20/2014 MELISSA DELGADO APRN 707.15 ULCER-FOOT/TOES 09/20/2014 CAROLINA BEAVER MD 401.1 BENIGN ESSENTIAL HYPERTENSION 09/20/2014 CAROLINA BEAVER MD 707.15 ULCER-FOOT/TOES 09/20/2014 MELISSA DELGADO APRN 401.1 BENIGN ESSENTIAL HYPERTENSION 09/20/2014 TED DELGADO APRNETTE 707.15 ULCER-FOOT/TOES 09/20/2014 VASILE PORTILLO PSYD 401.1 BENIGN ESSENTIAL HYPERTENSION 09/20/2014 VASILE PORTILLO PSYD L 707.15 ULCER-FOOT/TOES 09/24/2014 MELISSA DELGADO APRN 296.35 MO DEPRESSIVE RECURRENT IN PART OR UNSPECIFIED REMISSION 09/24/2014 VASILE PORTILLO PSYD 296.35 MO DEPRESSIVE RECURRENT IN PART OR UNSPECIFIED REMISSION 09/24/2014 VASILE PORTILLO PSYD L 296.35 MO DEPRESSIVE RECURRENT IN PART OR UNSPECIFIED REMISSION 09/24/2014 CAROLINA BEAVER MD 296.35 MO DEPRESSIVE RECURRENT IN PART OR UNSPECIFIED REMISSION 09/24/2014 VASILE PORTILLO PSYD 296.35 MO DEPRESSIVE RECURRENT IN PART OR UNSPECIFIED REMISSION 09/24/2014 MELISSA DELGADO APRN 296.35 MO DEPRESSIVE RECURRENT IN PART OR UNSPECIFIED REMISSION 09/24/2014 CAROLINA BEAVER MD 296.35 MO DEPRESSIVE RECURRENT IN PART OR UNSPECIFIED REMISSION 09/24/2014 MELISSA DELGADO APRN 296.35 MO DEPRESSIVE RECURRENT IN PART OR UNSPECIFIED REMISSION 09/24/2014 CAROLINA BEAVER MD 296.35 MO DEPRESSIVE RECURRENT IN PART OR UNSPECIFIED REMISSION 09/24/2014 MELISSA DELGADO APRN 296.35 MO DEPRESSIVE RECURRENT IN PART OR UNSPECIFIED REMISSION 09/24/2014 VASILE PORTILLO PSYD 296.35 MO DEPRESSIVE RECURRENT IN PART OR UNSPECIFIED REMISSION 10/08/2014 BALWINDER DPM, MATTY Q Ot 681.10 07/09/2015 CLARISSA MOORE Ot 250.00 DIAB VINICIO WO COMPL, TYPE II OR UNSPEC TY 07/09/2015 CLARISSA MOORE Ot 719.46 JOINT PAIN-L/LEG 07/09/2015 CLARISSA MOORE Ot 919.0 ABRASION NEC 07/09/2015 CLARISSA MOORE Ot 924.11 CONTUSION OF KNEE 07/09/2015 CLARISSA MOORE Ot E000.8 OTHER EXTERNAL CAUSE STATUS 07/09/2015 CLARISSA MOORE Ot E888.9 FALL NOS 07/09/2015 CLARISSA MOORE Ot V58.67 LONG-TERM (CURRENT) USE OF INSULIN 02/29/2016 SUKUMAR SWAN, MICHELLE A Ot F17.210 NICOTINE DEPENDENCE, CIGARETTES, UNCOMPL 02/29/2016 SUKUMAR WSAN, MICHELLE A Ot H66.91 OTITIS MEDIA, UNSPECIFIED, RIGHT EAR 03/02/2016 MICHELLE PATINO MD A Ot F17.210 NICOTINE DEPENDENCE, CIGARETTES, UNCOMPL 03/02/2016 MICHELLE PATINO MD A Ot H66.91 OTITIS MEDIA, UNSPECIFIED, RIGHT EAR 03/06/2016 SUKUMAR SWAN, MICHELLE A Ot F17.210 NICOTINE DEPENDENCE, CIGARETTES, UNCOMPL 03/06/2016 JAROD PATINO MDNT A Ot H66.91 OTITIS MEDIA, UNSPECIFIED, RIGHT EAR 03/22/2016 JORDANA MEADE CABLE MOCK UP ASSEMBLER Ot M17.12 UNILATERAL PRIMARY OSTEOARTHRITIS, LEFT 04/05/2016 BALWINDER DPM, MATTY Q Ot 681.10 CELLULITIS, TOE NOS 04/05/2016 JORDANA MEADE CABLE MOCK UP ASSEMBLER Ot M17.12 UNILATERAL PRIMARY OSTEOARTHRITIS, LEFT 04/05/2016 RAN SWAN FACC, LINDSEY FACP CCDS Ot E11.9 TYPE 2 DIABETES MELLITUS WITHOUT COMPLIC 04/06/2016 RAN SWAN FACC, LINDSEY FACP CCDS Ot E11.9 TYPE 2 DIABETES MELLITUS WITHOUT COMPLIC 04/06/2016 RAN SWAN FACC, LINDSEY FACP CCDS Ot E11.9 TYPE 2 DIABETES MELLITUS WITHOUT COMPLIC 04/06/2016 RAN SWAN FACC, LINDSEY FACP CCDS Ot E66.09 OTHER OBESITY DUE TO EXCESS CALORIES 04/06/2016 RAN SWAN FACC, LINDSEY FACP CCDS Ot E78.0 PURE HYPERCHOLESTEROLEMIA 04/06/2016 RAN SWAN FACC, LINDSEY FACP CCDS Ot I10 ESSENTIAL (PRIMARY) HYPERTENSION 04/06/2016 RAN SWAN FACC, LINDSEY FACP CCDS Ot R06.02 SHORTNESS OF BREATH 04/07/2016 RAN SWAN FACC, LINDSEY FACP CCDS Ot E11.9 TYPE 2 DIABETES MELLITUS WITHOUT COMPLIC 04/07/2016 RAN MONSALVE, ALI FACP CCDS Ot E66.09 OTHER OBESITY DUE TO EXCESS CALORIES 04/07/2016 RAN SWAN FACC, ALI FACP CCDS Ot E78.0 PURE HYPERCHOLESTEROLEMIA 04/07/2016 RAN SWAN FAC, ALI FACP CCDS Ot I10 ESSENTIAL (PRIMARY) HYPERTENSION 04/07/2016 RAN SWAN FACC, ALI FACP CCDS Ot R06.02 SHORTNESS OF BREATH 04/27/2016 RAN SWAN FAC, ALI FACP CCDS Ot E11.9 TYPE 2 DIABETES MELLITUS WITHOUT COMPLIC 04/27/2016 RAN SWAN [facility], ALI FACP CCDS Ot E66.09 OTHER OBESITY DUE TO EXCESS CALORIES 04/27/2016 RAN SWAN FACC, ALI FACP CCDS Ot E78.0 PURE HYPERCHOLESTEROLEMIA 04/27/2016 RAN SWAN FAC, ALI FACP CCDS Ot I10 ESSENTIAL (PRIMARY) HYPERTENSION 04/27/2016 RAN SWAN [facility], ALI FACP CCDS Ot R06.02 SHORTNESS OF BREATH 04/27/2016 RAN SWAN [facility], ALI FACP CCDS Ot E11.9 TYPE 2 DIABETES MELLITUS WITHOUT COMPLIC 04/27/2016 RAN SWAN [facility], ALI FACP CCDS Ot E66.09 OTHER OBESITY DUE TO EXCESS CALORIES 04/27/2016 RAN SWAN [facility], ALI FACP CCDS Ot E78.0 PURE HYPERCHOLESTEROLEMIA 04/27/2016 RAN SWAN [facility], ALI FACP CCDS Ot I10 ESSENTIAL (PRIMARY) HYPERTENSION 04/27/2016 RAN SWAN [facility], ALI FACP CCDS Ot R06.02 SHORTNESS OF BREATH 04/28/2016 JORDANA MEADE Ot M17.12 UNILATERAL PRIMARY OSTEOARTHRITIS, LEFT 05/13/2016 NHUNG ISABEL MD, Ot M17.12 UNILATERAL PRIMARY OSTEOARTHRITIS, LEFT 05/13/2016 NHUNG ISABEL MD Ot R53.83 OTHER FATIGUE 05/13/2016 NHUNG ISABEL MD Ot Z01.812 ENCOUNTER FOR PREPROCEDURAL LABORATORY E 05/13/2016 NHUNG ISABEL MD, Ot Z01.818 ENCOUNTER FOR OTHER PREPROCEDURAL EXAMIN 05/13/2016 NHUNG ISABEL MD Ot Z11.2 ENCOUNTER FOR SCREENING FOR OTHER BACTER 05/14/2016 NHUNG ISABEL MD Ot M17.12 UNILATERAL PRIMARY OSTEOARTHRITIS, LEFT 05/14/2016 NHUNG ISABEL MD Ot Z01.812 ENCOUNTER FOR PREPROCEDURAL LABORATORY E 05/14/2016 NHUNG ISABEL MD Ot Z01.818 ENCOUNTER FOR OTHER PREPROCEDURAL EXAMIN 05/14/2016 NHUNG ISABEL MD Ot Z11.2 ENCOUNTER FOR SCREENING FOR OTHER BACTER 05/21/2016 NHUNG ISABEL MD Ot E11.9 TYPE 2 DIABETES MELLITUS WITHOUT COMPLIC 05/21/2016 NHUNG ISABEL MD Ot I10 ESSENTIAL (PRIMARY) HYPERTENSION 05/21/2016 NHUNG ISABEL MD Ot M17.12 UNILATERAL PRIMARY OSTEOARTHRITIS, LEFT 05/22/2016 NHUNG ISABEL MD Ot E11.9 TYPE 2 DIABETES MELLITUS WITHOUT COMPLIC 05/22/2016 NHUNG ISABEL MD Ot F32.9 MAJOR DEPRESSIVE DISORDER, SINGLE EPISOD 05/22/2016 NHUNG ISABEL MD Ot F41.9 ANXIETY DISORDER, UNSPECIFIED 05/22/2016 NHUNG ISABEL MD Ot F43.10 POST-TRAUMATIC STRESS DISORDER, UNSPECIF 05/22/2016 NHUNG ISABEL MD Ot F50.9 EATING DISORDER, UNSPECIFIED 05/22/2016 NHUNG ISABEL MD Ot F90.9 ATTENTION-DEFICIT HYPERACTIVITY DISORDER 05/22/2016 NHUNG ISABEL MD Ot I10 ESSENTIAL (PRIMARY) HYPERTENSION 05/22/2016 NHUNG ISABEL MD Ot L40.50 ARTHROPATHIC PSORIASIS, UNSPECIFIED 05/22/2016 NHUNG ISABEL MD Ot M17.12 UNILATERAL PRIMARY OSTEOARTHRITIS, LEFT 05/22/2016 NHUNG ISABEL MD Ot Z87.891 PERSONAL HISTORY OF NICOTINE DEPENDENCE 01/24/2017 PATRICA LARSON MD, Ot K21.9 GASTRO-ESOPHAGEAL REFLUX DISEASE WITHOUT 01/24/2017 PATRICA LARSON MD, Ot R19.5 OTHER FECAL ABNORMALITIES 01/24/2017 PATRICA LARSON MD, Ot Z01.818 ENCOUNTER FOR OTHER PREPROCEDURAL EXAMIN 01/25/2017 PATRICA LARSON MD, Ot K21.9 GASTRO-ESOPHAGEAL REFLUX DISEASE WITHOUT 01/25/2017 PATRICA LARSON MD, Ot R19.5 OTHER FECAL ABNORMALITIES 01/25/2017 PATRICA LARSON MD, Ot Z01.818 ENCOUNTER FOR OTHER PREPROCEDURAL EXAMIN 01/26/2017 BALWINDER DPM, MATTY Q Ot 681.10 CELLULITIS, TOE NOS 01/26/2017 RAN SWAN FAC, ALI FACP CCDS Ot E11.9 TYPE 2 DIABETES MELLITUS WITHOUT COMPLIC 01/26/2017 RAN SWAN FACC, ALI FACP CCDS Ot E66.09 OTHER OBESITY DUE TO EXCESS CALORIES 01/26/2017 RAN SWAN FACC, ALI FACP CCDS Ot E78.0 PURE HYPERCHOLESTEROLEMIA 01/26/2017 RAN SWAN FACC, ALI FACP CCDS Ot I10 ESSENTIAL (PRIMARY) HYPERTENSION 01/26/2017 RAN SWAN FACC, ALI FACP CCDS Ot R06.02 SHORTNESS OF BREATH 01/26/2017 RAN SWAN FACC, ALI FACP CCDS Ot E11.9 TYPE 2 DIABETES MELLITUS WITHOUT COMPLIC 01/26/2017 RAN SWAN FACC, ALI FACP CCDS Ot E66.09 OTHER OBESITY DUE TO EXCESS CALORIES 01/26/2017 RAN SWAN FACC, ALI FACP CCDS Ot E78.0 PURE HYPERCHOLESTEROLEMIA 01/26/2017 RAN SWAN FACC, ALI FACP CCDS Ot I10 ESSENTIAL (PRIMARY) HYPERTENSION 01/26/2017 RAN SWAN FAC, ALI FACP CCDS Ot R06.02 SHORTNESS OF BREATH 01/27/2017 PATRICA LARSON MD Ot K21.0 GASTRO-ESOPHAGEAL REFLUX DISEASE WITH ES 01/27/2017 PATRICA LARSON MD Ot K29.70 GASTRITIS, UNSPECIFIED, WITHOUT BLEEDING 01/27/2017 PATRICA LARSON MD Ot K64.1 SECOND DEGREE HEMORRHOIDS 01/27/2017 PATRICA LARSON MD, Ot Z79.899 OTHER EMBROIDERY OPERATOR (CURRENT) DRUG THERAPY 02/02/2017 PATRICA LARSON MD, Ot K21.0 GASTRO-ESOPHAGEAL REFLUX DISEASE WITH ES 02/02/2017 PATRICA LARSON MD, Ot K29.70 GASTRITIS, UNSPECIFIED, WITHOUT BLEEDING 02/02/2017 PATRICA LARSON MD, Ot K64.1 SECOND DEGREE HEMORRHOIDS 02/02/2017 PATRICA LARSON MD, Ot Z79.899 OTHER JAIL (CURRENT) DRUG THERAPY 02/05/2017 PATRICA LARSON MD Ot K21.0 GASTRO-ESOPHAGEAL REFLUX DISEASE WITH ES 02/05/2017 NEO SWAN, PATRICA Rojas K29.70 GASTRITIS, UNSPECIFIED, WITHOUT BLEEDING 02/05/2017 PATRICA LARSON MD, Ot K64.1 SECOND DEGREE HEMORRHOIDS 02/05/2017 PATRICA LARSON MD, Ot Z79.899 OTHER EMBROIDERY OPERATOR (CURRENT) DRUG THERAPY Procedures Code [place] [address] A1C (IN-HOUSE) 33963 URINE DRUG SCREEN (IN-HOUSE) 01/23/2013 22601 A1C (IN-HOUSE) 81136 ROUTINE VENIPUNCTURE 07/06/2013 39495 UA W/ CULTURE IF INDICATED 07/06/2013 71739 MICRO ALBUMIN-IN HOUSE 07/06/2013 07255 MICROALBUMIN 03/2013 06648 CULTURE URINE 05/2013 66863 A1C (IN-HOUSE) Nhung Castano 10/14/2013 25904 ROUTINE VENIPUNCTURE 11/20/2013 00318 A1C (IN-HOUSE) [id number] GFR CALC (RESULT ONLY) 11/20/2013 21163 CMP 11/20/2013 88513 PSYCH DIAGNOSTIC EVALUATION 12/06/2013 36025 PSYTX PT&/FAMILY 45 MINUTES 01/10/2014 77716 PSYTX PT&/FAMILY 45 MINUTES 01/23/2014 56922 PSYTX PT&/FAMILY 45 MINUTES 02/18/2014 66927 A1C (IN-HOUSE) 36475 UA LONG DIP 03/12 22557 ROUTINE VENIPUNCTURE 03/13/2014 79318 LIPID PANEL 03/13 35794 PSYTX PT&/FAMILY 45 MINUTES 03/18/2014 38090 PSYTX PT&/FAMILY 45 MINUTES 03/27/2014 78106 XRAY FOOT RIGHT 2 VIEWS 04/04/2014 95209 PSYTX PT&/FAMILY 45 MINUTES 05/23/2014 00227 PSYTX PT&/FAMILY 45 MINUTES 06/06/2014 51238 PSYTX PT&/FAMILY 45 MINUTES 06/24/2014 96411 A1C (IN-HOUSE) 34363 PSYTX PT&/FAMILY 45 MINUTES 07/23/2014 51713 PSYTX PT&/FAMILY 30 MINUTES 08/06/2014 26651 PSYTX PT&/FAMILY 45 MINUTES 10/02/2014 90907 PSYTX PT&/FAMILY 45 MINUTES 10/18/2014 07628 A1C (IN-HOUSE) 87917 PSYTX PT&/FAMILY 45 MINUTES 11/05/2014 31927 PSYTX PT&/FAMILY 45 MINUTES 01/28/2015 23344 A1C (IN-HOUSE) 20993 PSYTX PT&/FAMILY 45 MINUTES 02/26/2015 [id number] REPLACE OF L KNEE JT WITH SYNTH SUB, MAKI 05/19/2016 Results Encounters ACCT No. Visit Date/Time Discharge Status Pt. Type Provider Facility Loc./Unit Complaint [id number] 02/26/2015 13:53:00 02/26/2015 23: 59:59 CLS Outpatient VASILE PORTILLO PSYD [id number] 01/28/2015 10:46:00 01/28/2015 23: 59:59 CLS Outpatient CAROLINA BEAVER MD [id number] 2015 10:57:00 2015 23: 59:59 CLS Outpatient MELISSA DELGADO APRN [id number] 12/02/2014 12:49:00 12/02/2014 23: 59:59 CLS Outpatient VASILE PORTILLO PSYD [id number] 11/12/2014 09:29:00 11/12/2014 23: 59:59 CLS Outpatient MELISSA DELGADO APRN [id number] 11/12/2014 09:29:00 11/12/2014 23: 59:59 CLS Outpatient MELISSA DELGADO APRN [id number] 11/05/2014 08:10:00 11/05/2014 23: 59:59 CLS Outpatient VASILE PORTILLO PSYD [id number] 10/29/2014 13:02:00 10/29/2014 23: 59:59 CLS Outpatient CAROLINA BEAVER MD [id number] 10/29/2014 13:02:00 10/29/2014 23: 59:59 CLS Outpatient CAROLINA BEAVER MD [id number] 10/18/2014 10:11:00 10/18/2014 23: 59:59 CLS Outpatient VASILE PORTILLO PSYD [id number] 10/02/2014 10:26:00 10/02/2014 23: 59:59 CLS Outpatient VASILE PORTILLO PSYD [id number] 09/24/2014 10:25:00 09/24/2014 23: 59:59 CLS Outpatient SANDY ASHWINTEDMELISSA [id number] 09/20/2014 10:29:00 09/20/2014 23: 59:59 CLS Outpatient MATTY BRITT DPM [id number] 08/06/2014 11:36:00 08/06/2014 23: 59:59 CLS Outpatient VASILE PORTILLO PSYD [id number] 07/23/2014 10:12:00 07/23/2014 23: 59:59 CLS Outpatient VASILE PORTILLO PSYD [id number] 07/22/2014 10:40:00 07/22/2014 23: 59:59 CLS Outpatient CAROLINA BEAVER MD [id number] 07/22/2014 10:40:00 07/22/2014 23: 59:59 CLS Outpatient CAROLINA BEAVER MD [id number] 06/24/2014 10:06:00 06/24/2014 23: 59:59 CLS Outpatient VASILE PORTILLO PSYD [id number] 06/17/2014 12:45:00 06/17/2014 23: 59:59 CLS Outpatient SOCRATES FIELD REVIEWEREVERARDO Vinson [id number] 06/06/2014 09:55:00 06/06/2014 23: 59:59 CLS Outpatient VASILE PORTILLO PSYD [id number] 05/23/2014 13:04:00 05/23/2014 23: 59:59 CLS Outpatient VASILE PORTILLO PSYD [id number] 04/04/2014 15:04:00 04/04/2014 23: 59:59 CLS Outpatient ACROLINA BEAVER MD [id number] 03/26/2014 12:44:00 03/26/2014 23: 59:59 CLS Outpatient SOCRATES FIELD REVIEWEREVERARDO Vinson [id number] 03/18/2014 13:04:00 03/18/2014 23: 59:59 CLS Outpatient VASILE PORTILLO PSYD [id number] 03/13/2014 10:08:00 03/13/2014 23: 59:59 CLS Outpatient CAROLINA BEAVER MD [id number] 02/25/2014 11:12:00 02/25/2014 23: 59:59 CLS Outpatient CAROLINA BEAVER MD [id number] 02/18/2014 13:10:00 02/18/2014 23: 59:59 CLS Outpatient LINDSEY SANDERSBARRINGTONVASILE [id number] 01/23/2014 10:54:00 01/23/2014 23: 59:59 CLS Outpatient VASILE PORTILLO PSYD L [id number] 01/09/2014 08:09:00 01/09/2014 23: 59:59 CLS Outpatient MICAHArlene BENOITVASILE L [id number] 12/06/2013 10:00:00 12/06/2013 23: 59:59 CLS Outpatient VASILE PORTILLO PSYD [id number] 11/12/2013 16:35:00 11/12/2013 23: 59:59 CLS Outpatient SOCRATES CHRISTOPHER EVERARDO LUCIOH [id number] 10/26/2013 15:16:00 10/26/2013 23: 59:59 CLS Outpatient DILAN REINA APRN [id number] 10/15/2013 14:07:00 10/15/2013 23: 59:59 CLS Outpatient SOCRATES CHRISTOPHER EVERARDO LUCIOH [id number] 10/14/2013 00:00:00 10/14/2013 23: 59:59 CLS Outpatient CAROLINA BEAVER MD [id number] 08/07/2013 16:22:00 08/07/2013 23: 59:59 CLS Outpatient CAROLINA BEAVER MD [id number] 07/06/2013 13:01:00 07/06/2013 23: 59:59 CLS Outpatient SOCRATES CHRISTOPHER EVERARDO BRENT [id number] 01/23/2013 17:27:00 01/23/2013 23: 59:59 CLS Outpatient CAROLINA BEAVER MD [id number] 01/02/2013 14:36:00 01/02/2013 23: 59:59 CLS Outpatient CAROLINA BEAVER MD [id number] 12/26/2012 15:27:00 12/26/2012 23: 59:59 CLS Outpatient [id number] 11/30/2012 14:45:00 11/30/2012 23: 59:59 CLS Outpatient SOCRATES CHRISTOPHER EVERARDO BRENT [id number] 10/02/2012 14:00:00 10/02/2012 23: 59:59 CLS [place] [id number] 08/15/2012 13:19:00 08/15/2012 23: 59:59 CLS Outpatient EVERARDO CROWELL APRN [id number] 05/08/2013 10:58:00 Document Registration [id number] 03/16/2013 11:44:00 Document Registration
--- OUTSIDE RECORDS SUMMARY | 2017-02-20 04:25 | XMS REPORT ---
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 Assessment Generalized anxiety disorder 300.02 Active Problem Unspecified conductive hearing loss 389.00 [...] Date End Date Status Dosage Wellbutrin XL [facility] [address]-34 150 MG Orally Once a day take one tab daily X one week, then 2 tabs daily May 13, 2015 2 tablet in the morning NovoLog Flexpen [facility] [address]-29 100 UNIT/ML Oct 29, 2014 inject 10 Units by Subcutaneous route before meals 3 times per day Adderall [facility] [address]-53 30 MG Orally 2 times a day for ADHD January 13, 2015 1 tablet Hydrocodone-Acetaminophen [facility] [address]-94 5-325 MG Orally every 6 hrs 1 tablet as needed Levemir Flexpen [facility] 0 100 unit/mL (3 mL) Oct 29, 2014 33 Unit by Subcutaneous route 1 time per day Metformin HCl [facility] 47810973305 500 MG TAKE ONE TABLET BY MOUTH TWICE DAILY WITH FOOD Lisinopril [facility] 81877935346 10 MG TAKE ONE TABLET BY MOUTH ONCE DAILY (MUST HAVE APPOINTMENT FOR ADDITIONAL REFILLS) Xanax [facility] [address]-97 1 MG Orally Twice a day March 17, 2015 1 tablet Tramadol HCl [facility] [address]-76 50 MG Orally every 6 hrs TAKE ONE TABLET BY MOUTH EVERY 6 HOURS NEEDED FOR PAIN Lipitor [facility] [address]-03 20 mg March 14, 2014 1 tablet by Oral route 1 time per day Invokana [facility] 68359822599 100 MG TAKE ONE TABLET BY MOUTH DAILY Zantac 150 Maximum Strength [facility] [address]-72 150 MG Orally Twice a day Jun 23, 2015 1 tablet Levsin/SL [facility] [address]-87 0.125 MG Sublingual 3 times a day March 17, 2015 1 tablet under the tongue and allow to dissolve before meals as needed Procedures Procedure Coding System Code Date Office Visit, Est Pt., Level 3 CPT-4 42321 Jul 10, 2015 [facility] VISIT ESTABLISHED PATIENT CPT-4 G0467 Jul 10, 2015 Vital Signs Date/Time: Jul 10, 2015 Temperature 98.0 F Weight 226.0 lbs Height 65 in BMI 37.60 Index Blood Pressure Diastolic 80 mmHg Blood Pressure Systolic 140 mmHg Cardiac Monitoring Heart Rate 124 bpm Results No Known Results Summary Purpose eClinicalWorks Submission
--- OUTSIDE RECORDS SUMMARY | 2017-02-20 04:25 | XMS REPORT ---
Author Author WELLINGTON CLINE Organization eClinicalWorks Address Unknown Phone Unavailable Care Team Providers Care Glove Turner Name Role Phone WELLINGTON CLINE Unavailable Allergies [...]
--- OUTSIDE RECORDS SUMMARY | 2017-02-20 04:25 | XMS REPORT ---
Author Author MELISSA DELGADO [facility] eClinicalWorks Address Unknown Phone Unavailable Care Team Providers Care Nutrition Consultant Name Role Phone MELISSA DELGADO Unavailable Allergies No Known Allergies Problems Problem [...] w/o complication type II 250.00 Active Problem Pain in or around eye 379.91 Active Problem Ulcer of other part of foot 707.15 Active Problem Other psoriasis 696.1 Active Problem Essential hypertension, benign 401.1 Active Problem Unspecified conductive hearing loss 389.00 Active Problem Need for prophylactic vaccination and inoculation, Influenza V04.81 Active Medications Medication Code System Code Instructions Start Date End Date Status Dosage [facility] [address]-22 30 MG Orally 2 times a day for ADHD Dr Carcamo to sign for Samantha 1 tablet Results No Known Results Summary Purpose eClinicalWorks Submission
--- OUTSIDE RECORDS SUMMARY | 2017-02-20 04:25 | XMS REPORT ---
Author CAROLINA Berumen [facility] eClinicalWorks Address Unknown Phone Unavailable Care Team Providers Care Mail Handlers Supervisor Name Role Phone CAROLINA BEAVER CP Unavailable [...] w/o complication type II 250.00 Active Assessment Anxiety F41.9 Active Assessment Diabetes E11.9 Active Problem Pain in or around eye 379.91 Active Problem Ulcer of other part of foot 707.15 Active Problem Other psoriasis 696.1 Active Problem Essential hypertension, benign 401.1 Active Problem Unspecified conductive hearing loss 389.00 Active Problem Need for prophylactic vaccination and inoculation, Influenza V04.81 Active Medications Medication Code System Code Instructions Start Date End Date Status Dosage Lisinopril [facility] 43539847058 10 MG TAKE ONE TABLET BY MOUTH ONCE DAILY (MUST HAVE APPOINTMENT FOR ADDITIONAL REFILLS) Adderall [facility] [address]-90 30 MG Orally 2 times a day for ADHD Trev to sign for Samantha 1 tablet Xanax [facility] [address]-49 1 MG Orally Once a day 1 tablet Wellbutrin XL [facility] [address]-73 150 MG Orally Once a day take one tab daily X one week, then 2 tabs daily 2 tablet in the morning Tramadol HCl [facility] [address]-74 50 MG Orally every 6 hrs TAKE ONE TABLET BY MOUTH EVERY 6 HOURS NEEDED FOR PAIN NovoLog Flexpen [facility] [address]-61 100 UNIT/ML Oct 29, 2014 inject 10 Units by Subcutaneous route before meals 3 times per day Procedures Procedure Coding System Code Date Office Visit, Diane Pt., Level 3 CPT-4 99681 Sep 19, 2015 [facility] VISIT ESTABLISHED PATIENT CPT-4 G0467 Sep 19, 2015 Vital Signs Date/Time: Sep 19, 2015 Temperature 98.1 F Weight 226.1 lbs Height 65 in BMI 37.62 Index Blood Pressure Diastolic 88 mmHg Blood Pressure Systolic 158 mmHg Cardiac Monitoring Heart Rate 88 bpm Results No Known Results Summary Purpose eClinicalWorks Submission
--- OUTSIDE RECORDS SUMMARY | 2017-02-20 04:25 | XMS REPORT ---
Author Author VASILE PORTILLO [facility] eClinicalWorks Address Unknown Phone Unavailable Care Team Providers Care Briar Cutter Name Role Phone VASILE PORTILLO CP Unavailable Allergies No Known Allergies Problems Problem Type Condition Code Onset Dates Condition Status Assessment Generalized anxiety disorder F41.1 Active Problem Diabetes E11.9 Active Assessment Major depressive disorder, recurrent episode, unspecified severity F33.9 Active Problem Back pain M54.9 Active Problem 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 I10 Active Problem Arthritis M19.90 Active Problem Major depressive disorder, recurrent episode, unspecified severity F33.9 Active Problem Generalized anxiety disorder F41.1 Active Problem Psoriasis L40.9 Active Problem Tobacco abuse Z72.0 Active Medications No Known Medications Procedures Procedure Coding System Code Date Psychotherapy, patient &/family, 45 minutes, established patient CPT-4 54067 February 06, 2016 [facility] VISIT MENTAL HEALTH ESTAB PT CPT-4 G0470 February 06, 2016 Results No Known Results Summary Purpose eClinicalWorks Submission
--- OUTSIDE RECORDS SUMMARY | 2017-02-20 04:25 | XMS REPORT ---
Author Author WELLINGTON CLINE Organization eClinicalWorks Address Unknown Phone Unavailable Care Team Providers Care Lamp Replacer Name Role Phone WELLINGTON CLINE Unavailable Allergies [...]
--- OUTSIDE RECORDS SUMMARY | 2017-02-20 04:25 | XMS REPORT ---
Author Author WELLINGTON CLINE Organization eClinicalWorks Address Unknown Phone Unavailable Care Team Providers Care Marina Dry Dock Manager Name Role Phone WELLINGTON CLINE Unavailable Allergies [...] Instructions Start Date End Date Status Dosage Rexulti [facility] [address]-86 0.5 MG Orally Once a day Oct 20, 2015 1 tablet Results No Known Results Summary Purpose eClinicalWorks Submission
--- OUTSIDE RECORDS SUMMARY | 2017-02-20 04:25 | XMS REPORT ---
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
--- OUTSIDE RECORDS SUMMARY | 2017-02-20 04:25 | XMS REPORT ---
Author Author CAROLINA BEAVER [facility] eClinicalWorks Address Unknown Phone Unavailable Care Team Providers Care Quality Improvement Analyst Name Role Phone CAROLINA BEAVER Unavailable Allergies [...] Start Date End Date Status Dosage Xanax [facility] [address]-10 1 MG Orally. 4 times a day 1 tablet Results No Known Results Summary Purpose eClinicalWorks Submission
--- OUTSIDE RECORDS SUMMARY | 2017-02-20 04:25 | XMS REPORT ---
Author Author CAROLINA BEAVER [facility] eClinicalWorks Address Unknown Phone Unavailable Care Team Providers Care Sanitation Engineer Name Role Phone CAROLINA BEAVER Unavailable Allergies No Known Allergies Problems Problem Type Condition Code Onset Dates Condition Status Problem Diabetes E11.9 Active Problem Major depressive disorder, recurrent episode, unspecified severity F33.9 Active Problem Generalized anxiety disorder F41.1 Active Problem technician terminal and repeater 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 Active Problem Arthritis M19.90 Active Problem Type 2 diabetes mellitus with hyperglycemia E11.65 Active Problem Psoriasis L40.9 Active Problem Tobacco abuse Z72.0 Active Problem Back pain M54.9 Active Problem 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 I10 Active Medications No Known Medications Results No Known Results Summary Purpose eClinicalWorks Submission
--- OUTSIDE RECORDS SUMMARY | 2017-02-20 04:25 | XMS REPORT ---
Author Author WELLINGTON CLINE Organization eClinicalWorks Address Unknown Phone Unavailable Care Team Providers Care Mold Stripper Name Role Phone WELLINGTON CLINE Unavailable Allergies [...] Instructions Start Date End Date Status Dosage Abilify [facility] [address]-00 5 MG Orally Once a day Nov 06, 2015 1 tablet Results No Known Results Summary Purpose eClinicalWorks Submission
--- OUTSIDE RECORDS SUMMARY | 2017-02-20 04:26 | XMS REPORT ---
Author Author VASILE PORTILLO Organization eClinicalWorks Address Unknown Phone Unavailable Care Team Providers Care Social Media Job Titles Name Role Phone VASILE PORTILLO CP Unavailable [...] Start Date End Date Status Dosage Xanax [facility] [address]-61 1 MG Orally Twice a day 1 tablet Wellbutrin XL [facility] [address]-83 150 MG Orally Once a day take one tab daily X one week, then 2 tabs daily 2 tablet in the morning Adderall [facility] [address]-03 30 MG Orally 2 times a day for ADHD 1 tablet Procedures Procedure Coding System Code Date Psychotherapy, patient &/family, 45 minutes, established patient CPT-4 49191 Jul 21, 2015 [facility] VISIT MENTAL HEALTH ESTAB PT CPT-4 G0470 Jul 21, 2015 Results No Known Results Summary Purpose eClinicalWorks Submission
--- OUTSIDE RECORDS SUMMARY | 2017-02-20 04:26 | XMS REPORT ---
Author Author CAROLINA BEAVER [facility] eClinicalWorks Address Unknown Phone Unavailable Care Team Providers Care Meat Cutter Apprentice Name Role Phone CAROLINA BEAVER Unavailable Allergies No Known Allergies Problems Problem Type Condition Code Onset Dates Condition Status Problem Diabetes E11.9 Active Problem Major depressive disorder, recurrent episode, unspecified severity F33.9 Active Problem Generalized anxiety disorder F41.1 Active Problem computer 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 Active Problem Arthritis M19.90 Active Problem Type 2 diabetes mellitus with hyperglycemia E11.65 Active Problem Psoriasis L40.9 Active Problem Tobacco abuse Z72.0 Active Problem Back pain M54.9 Active Problem 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 I10 Active Medications No Known Medications Results No Known Results Summary Purpose eClinicalWorks Submission
--- OUTSIDE RECORDS SUMMARY | 2017-02-20 04:26 | XMS REPORT ---
Author LARISA Dent [facility] eClinicalWorks Address Unknown Phone Unavailable Care Team Providers Care Rod Welder Name Role Phone LARISA JAVED CP Unavailable [...] w/o complication type II 250.00 Active Assessment Acute sinusitis, unspecified J01.90 Active Problem Pain in or around eye 379.91 Active Problem Ulcer of other part of foot 707.15 Active Problem Other psoriasis 696.1 Active Problem Essential hypertension, benign 401.1 Active Problem Unspecified conductive hearing loss 389.00 Active Problem Need for prophylactic vaccination and inoculation, Influenza V04.81 Active Medications Medication Code System Code Instructions Start Date End Date Status Dosage Wellbutrin XL [facility] [address]-80 150 MG Orally Once a day take one tab daily X one week, then 2 tabs daily 2 tablet in the morning Ibuprofen [facility] [address]-36 800 MG Orally BID PRN 1 tablet Levsin/SL [facility] 14997374051 0.125 MG Sublingual 3 times a day 1 tablet under the tongue and allow to dissolve before meals as needed Amoxicillin [facility] [address]-59 500 MG Orally every 12 hrs Oct 14, 2015 Oct 24, 2015 2 tablets Rexulti [facility] [address]-43 0.5 MG Orally Once a day Oct 14, 2015 1 tablet Fluticasone Propionate [facility] [address]-55 50 MCG/ACT Nasally 2 times a day Oct 14, 2015 1 spray in each nostril Robitussin Cough+Chest Liu DM [facility] [address]-39 10-200 MG Orally every 4 hrs 1 capsule as needed NovoLog Flexpen [facility] [address]-34 100 UNIT/ML Oct 29, 2014 inject 10 Units by Subcutaneous route before meals 3 times per day Adderall [facility] [address]-77 30 MG Orally 2 times a day for ADHD Dr Carcamo to sign for Samantha 1 tablet Zantac 150 Maximum Strength [facility] [address]-31 150 MG Orally Twice a day Jun 23, 2015 1 tablet Tramadol HCl [facility] [address]-25 50 MG Orally every 6 hrs TAKE ONE TABLET BY MOUTH EVERY 6 HOURS NEEDED FOR PAIN Xanax [facility] [address]-92 1 MG Orally 4 times a day 1 tablet Lisinopril [facility] 01724156743 10 MG TAKE ONE TABLET BY MOUTH ONCE DAILY (MUST HAVE APPOINTMENT FOR ADDITIONAL REFILLS) Procedures Procedure Coding System Code Date Office Visit, Est Pt., Level 3 CPT-4 97920 Oct 14, 2015 Vital Signs Date/Time: Oct 14, 2015 Temperature 97.9 F Weight 229.0 lbs Height 65 in BMI 38.10 Index Blood Pressure Diastolic 64 mmHg Blood Pressure Systolic 132 mmHg Cardiac Monitoring Heart Rate 72 bpm Results No Known Results Summary Purpose eClinicalWorks Submission
--- OUTSIDE RECORDS SUMMARY | 2017-02-20 04:26 | XMS REPORT ---
Author Author CAROLINA BEAVER [facility] Address [address] [place] [address] Care Team Providers Care Purchasing Internship Name Role Phone CAROLINA BEAVER Unavailable PROBLEMS Type Condition ICD9-CM Code [id number] Code Onset Dates Condition Status SNOMED Code Problem Diabetes E11.9 Active 32119238 Problem Major depressive disorder, recurrent episode, unspecified severity F33.9 Active 63085971 Problem Generalized anxiety disorder F41.1 Active 38723924 Assessment Encounter for immunization Z23 Sep, Active 821825076 Assessment Diabetes E11.9 Sep, Active 355957068 Problem termite control technician 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 Active 576662872 Problem Arthritis M19.90 Active 2331967 Problem Psoriasis L40.9 Active 5096149 Problem Tobacco abuse Z72.0 Active 91132506 Problem Back pain M54.9 Active 969341323 Problem 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 I10 Active 39369653 ALLERGIES Substance Reaction Event Type Date Status Methylphenidate twitching Drug Allergy Sep, Active Byetta 5 MCG Pen stomach upset Drug Allergy Sep, Active SOCIAL HISTORY No smoking Hx information available PLAN OF CARE VITAL SIGNS Height 65 in 2016-10-01 Weight 229.5 lbs 2016-10-01 Heart Rate 88 bpm 2016-10-01 Respiratory Rate 22 2016-10-01 BMI 38.19 kg/m2 2016-10-01 Blood pressure systolic 140 mmHg 2016-10-01 Blood pressure diastolic 78 mmHg 2016-10-01 MEDICATIONS Medication Instructions Dosage Frequency Start Date End Date Duration Status Nystatin 851402 UNIT/ML Mouth/Throat 4 times a day 5 ml 6h Dec, Active BD Insulin Syringe 30G X 1/2 subcutaneously 4 times a day use with insulin 6h May, Active Multivitamin Adult - Orally, bubble pack for USP Once a day 1 tablet 24h Active NovoLog Flexpen 100 UNIT/ML Subcutaneous 3 times a day 12 u 8h Sep, Active Adderall 20 mg Orally Once a day 1 tablet in the morning 24h Jul, Active Humira Pen 40 MG/0.8ML Subcutaneous every 2 weeks 0.8 ml Jan, 90 days Active Insulin Detemir 100 UNIT/ML Subcutaneous Once a day 38 u 24h Sep, Active Alprazolam 1 MG Orally 4 times daily as needed 1 tablet February, Active Escitalopram Oxalate 10 MG Orally Once a day 1 tablet 24h May, Active Tramadol HCl 50 mg Orally every 6 hrs 1 tablet as needed 6h Jul, Active Lisinopril 10 MG TAKE ONE TABLET BY MOUTH ONCE DAILY (MUST HAVE APPOINTMENT FOR ADDITIONAL REFILLS) 30 Active Wellbutrin XL 150 MG 2 tabs every morning Active Invokana 100 MG TAKE ONE TABLET BY MOUTH DAILY 30 Active RESULTS No Results PROCEDURES Procedure Date Ordered Related Diagnosis Body Site [facility] VISIT ESTABLISHED PATIENT Oct 01, 2016 Office Visit, Est Pt., Level 3 Oct 01, 2016 IMMUNIZATION ADMIN, EACH ADD (please include units) Oct 01, 2016 FLUARIX QUAD P-FREE 3 AND UP .50 2015Oct 01, 2016 PCV 13 Oct 01, 2016 SINGLE IMMUNIZATION ADMIN Oct 01, 2016 ZOSTER (ZOSTAVAX) Oct 01, 2016 IMMUNIZATIONS Vaccine Route Administration Date Status FLUARIX QUAD P-FREE 3 AND UP .50 2015 IM Intramuscular Oct 01, 2016 Administered ZOSTER (ZOSTAVAX) SC Subcutaneous Oct 01, 2016 Administered PCV 13 IM Intramuscular Oct 01, 2016 Administered
--- OUTSIDE RECORDS SUMMARY | 2017-02-20 04:26 | XMS REPORT ---
Author Author LAURA MOSHER Organization eClinicalWorks Address Unknown Phone Unavailable Care Team Providers Care Rollout Manager Name Role Phone LAURA MOSHER CP Unavailable Allergies No Known Allergies Problems Problem Type Condition Code Onset Dates Condition Status Problem Diabetes E11.9 Active Problem Major depressive disorder, recurrent episode, unspecified severity F33.9 Active Problem Generalized anxiety disorder F41.1 Active Problem care home 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 Active Problem Arthritis M19.90 Active Problem Type 2 diabetes mellitus with hyperglycemia E11.65 Active Problem Psoriasis L40.9 Active Problem Tobacco abuse Z72.0 Active Problem Back pain M54.9 Active Problem 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 I10 Active Medications No Known Medications Results No Known Results Summary Purpose eClinicalWorks Submission
--- OUTSIDE RECORDS SUMMARY | 2017-02-20 04:26 | XMS REPORT ---
Author KAYLA Yun Organization eClinicalWorks Address Unknown Phone Unavailable Care Team Providers Care Second Language Tutor Name Role Phone KAYLA GUTIERREZ Unavailable Allergies No Known Allergies Problems Problem Type Condition Code Onset Dates Condition Status Problem Diabetes E11.9 Active Problem Major depressive disorder, recurrent episode, unspecified severity F33.9 Active Problem Generalized anxiety disorder F41.1 Active Problem meterman 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 Active Problem Arthritis M19.90 Active Problem Type 2 diabetes mellitus with hyperglycemia E11.65 Active Problem Psoriasis L40.9 Active Problem Tobacco abuse Z72.0 Active Problem Back pain M54.9 Active Problem 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 I10 Active Medications Medication Code System Code Instructions Start Date End Date Status Dosage Humira Pen [facility] [address]-27 40 MG/0.8ML Subcutaneous every 2 weeks February 25, 2016 0.8 ml Results No Known Results Summary Purpose eClinicalWorks Submission
--- OUTSIDE RECORDS SUMMARY | 2017-02-20 04:26 | XMS REPORT ---
Author Author LAURA MOSHER Organization eClinicalWorks Address Unknown Phone Unavailable Care Team Providers Care Hazard Waste Handler Name Role Phone LAURA MOSHER CP Unavailable Allergies No Known Allergies Problems Problem Type Condition Code Onset Dates Condition Status Problem Diabetes E11.9 Active Problem Major depressive disorder, recurrent episode, unspecified severity F33.9 Active Problem Generalized anxiety disorder F41.1 Active Problem custodial 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 Active Problem Arthritis M19.90 Active Problem Type 2 diabetes mellitus with hyperglycemia E11.65 Active Problem Psoriasis L40.9 Active Problem Tobacco abuse Z72.0 Active Problem Back pain M54.9 Active Problem 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 I10 Active Medications Medication Code System Code Instructions Start Date End Date Status Dosage Alprazolam [facility] [address]-89 1 MG Orally 4 times daily as needed March 11, 2016 1 tablet Results No Known Results Summary Purpose eClinicalWorks Submission
--- OUTSIDE RECORDS SUMMARY | 2017-02-20 04:26 | XMS REPORT ---
Author Author KAYLA GUTIERREZ [facility] eClinicalWorks Address Unknown Phone Unavailable Care Team Providers Care Polymerization Helper Name Role Phone KAYLA GUTIERREZ CP Unavailable Allergies, Adverse Reactions, Alerts Substance Reaction Event Type Methylphenidate twitching Drug Allergy Byetta 5 MCG Pen stomach upset Drug Allergy Problems Problem Type Condition Code Onset Dates Condition Status Problem Diabetes E11.9 Active Problem Major depressive disorder, recurrent episode, unspecified severity F33.9 Active Problem Generalized anxiety disorder F41.1 Active Assessment Candidiasis of female genitalia B37.3 Active Assessment Psoriatic arthritis L40.50 Active Problem penitentiary 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 Active Problem Arthritis M19.90 Active Problem Type 2 diabetes mellitus with hyperglycemia E11.65 Active Problem Psoriasis L40.9 Active Problem Tobacco abuse Z72.0 Active Problem Back pain M54.9 Active Problem 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 I10 Active Medications Medication Code System Code Instructions Start Date End Date Status Dosage Invokana [facility] 65333414981 100 MG Orally, bubble pack for alf Once a day 1 tablet Multivitamin Adult [facility] [address]64-[address]26 - Orally, bubble pack for alf Once a day 1 tablet Percocet [facility] [address]-31 5-325 MG Orally, alf pt every 4 April 1 tablet Alprazolam [facility] [address]-06 1 MG Orally 4 times daily as needed March 11, 2016 1 tablet Wellbutrin XL [facility] [address]-01 150 MG Orally, bubble pack for alf Once a day 2 tablets in the morning and 1 tablet early afternoon Levemir [facility] [address]-09 100 UNIT/ML Subcutaneous Once a day May 28, 2016 33 units NovoLog [facility] [address]-34 100 UNIT/ML Subcutaneous 3 times a day May 28, 2016 8 units Lisinopril [facility] [address]-63 20 mg Orally, bubble pack for alf Once a day 1 tablet Diflucan [facility] [address]-77 150 MG Orally Once a day, repeat in 4-5 days if sx persist Jun 08, 2016 Jun 10, 2016 1 tablet Nystatin [facility] [address]-57 323364 UNIT/ML Mouth/Throat 4 times a day Dec 5 ml Procedures Procedure Coding System Code Date [facility] VISIT ESTABLISHED PATIENT CPT-4 G0467 Jun 08, 2016 Office Visit, Est Pt., Level 4 CPT-4 88608 Jun 08, 2016 [facility] NOBLL Jun 08, 2016 VENIPUNCT, ROUTINE* CPT-4 90272 Jun 08, 2016 Vital Signs Date/Time: Jun 08, 2016 Cardiac Monitoring Heart Rate 88 bpm Weight 227.5 lbs Height 65 in BMI 37.85 Index Blood Pressure Diastolic 60 mmHg Blood Pressure Systolic 118 mmHg Results No Known Results Summary Purpose eClinicalWorks Submission
--- OUTSIDE RECORDS SUMMARY | 2017-02-20 04:26 | XMS REPORT ---
Author Author MELISSA DELGADO [facility] eClinicalWorks Address Unknown Phone Unavailable Care Team Providers Care Leather Coater Name Role Phone MELISSA DELGADO Unavailable Allergies [...] Status Dosage Adderall [facility] [address]-83 30 MG Orally 2 times a day for ADHD Dr Carcamo to sign for Samantha 1 tablet Results No Known Results Summary Purpose eClinicalWorks Submission
--- OUTSIDE RECORDS SUMMARY | 2017-02-20 04:26 | XMS REPORT ---
Author Author CAROLINA BEAVER [facility] eClinicalWorks Address Unknown Phone Unavailable Care Team Providers Care Manager Provider Relations Name Role Phone CAROLINA BEAVER CP Unavailable [...] Unspecified conductive hearing loss 389.00 Active Assessment [facility] (current) use of opiate analgesic Z79.891 Active Problem Essential hypertension, benign 401.1 Active Problem Need for prophylactic vaccination and inoculation, Influenza V04.81 Active Problem Pain in or around eye 379.91 Active Problem Adjustment disorder with depressed mood 309.0 Active Problem Ulcer of other part of foot 707.15 Active Problem Acute sinusitis, unspecified 461.9 Active Medications Medication Code System Code Instructions Start Date End Date Status Dosage Tramadol HCl [facility] [address]-05 50 MG Orally every 6 hrs TAKE ONE TABLET BY MOUTH EVERY 6 HOURS NEEDED FOR PAIN Results No Known Results Summary Purpose eClinicalWorks Submission
--- OUTSIDE RECORDS SUMMARY | 2017-02-20 04:26 | XMS REPORT ---
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
--- OUTSIDE RECORDS SUMMARY | 2017-02-20 04:27 | XMS REPORT ---
Author Author CAROLINA BEAVER [facility] eClinicalWorks Address Unknown Phone Unavailable Care Team Providers Care Legal Activity Adjudicator Name Role Phone CAROLINA BEAVER CP Unavailable [...] Instructions Start Date End Date Status Dosage Zantac 150 Maximum Strength [facility] [address]-63 150 MG Orally Twice a day Jun 23, 2015 1 tablet Results No Known Results Summary Purpose eClinicalWorks Submission
--- OUTSIDE RECORDS SUMMARY | 2017-02-20 04:27 | XMS REPORT ---
Author Author LAURA MOSHER Organization [facility] Address [address] [place] [address] Care Team Providers Care Administrative And Program Specialist Name Role Phone LAURA MOSHER Unavailable PROBLEMS Type Condition ICD9-CM Code NFR19-OU Code Onset Dates Condition Status SNOMED Code Problem Diabetes E11.9 Active 27525431 Problem Major depressive disorder, recurrent episode, unspecified severity F33.9 Active 65287454 Problem Generalized anxiety disorder F41.1 Active 05495069 Assessment Major depressive disorder, recurrent, in partial remission F33.41 Jul, Active 91066718 Problem retirement 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 Active 738401998 Problem Arthritis M19.90 Active 1633643 Problem Psoriasis L40.9 Active 6397409 Problem Tobacco abuse Z72.0 Active 08766188 Problem Back pain M54.9 Active 884942556 Problem 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 I10 Active 42213168 ALLERGIES Unknown Allergies SOCIAL HISTORY No smoking Hx information available PLAN OF CARE VITAL SIGNS Height 65 in 2016-07-22 Weight 224.1 lbs 2016-07-22 Heart Rate 80 bpm 2016-07-22 Respiratory Rate 20 2016-07-22 BMI 37.29 kg/m2 2016-07-22 Blood pressure systolic 132 mmHg 2016-07-22 Blood pressure diastolic 78 mmHg 2016-07-22 MEDICATIONS Medication Instructions Dosage Frequency Start Date End Date Duration Status Escitalopram Oxalate 10 MG Orally Once a day 1 tablet 24h May, Active Nystatin 762628 UNIT/ML Mouth/Throat 4 times a day 5 ml 6h Dec, Active NovoLog 100 UNIT/ML Subcutaneous 3 times a day 8 units 8h Apr, Active Multivitamin Adult - Orally, bubble pack for assisted Once a day 1 tablet 24h Active Wellbutrin XL 150 MG 2 tabs every morning 30 days Active Tramadol HCl 50 mg Orally every 6 hrs 1 tablet as needed 6h Jul, Active BD Insulin Syringe 30G X 1/2 subcutaneously 4 times a day use with insulin 6h May, Active Levemir 100 UNIT/ML Subcutaneous Once a day 38 units 24h Apr, Active Adderall XR 15 MG Orally Once a day 1 capsule in the morning 24h Jul, 28 days Active Lisinopril 10 MG TAKE ONE TABLET BY MOUTH ONCE DAILY (MUST HAVE APPOINTMENT FOR ADDITIONAL REFILLS) 30 Active Invokana 100 MG Orally, bubble pack for assisted Once a day 1 tablet 24h Active Alprazolam 1 MG Orally 4 times daily as needed 1 tablet February, Active RESULTS No Results PROCEDURES Procedure Date Ordered Related Diagnosis Body Site [facility] VISIT ESTABLISHED PATIENT Jul 22, 2016 Office Visit, Est Pt., Level 3 Jul 22, 2016 IMMUNIZATIONS No Known Immunizations
--- OUTSIDE RECORDS SUMMARY | 2017-02-20 04:27 | XMS REPORT ---
Author Author WELLINGTON CLINE Organization eClinicalWorks Address Unknown Phone Unavailable Care Team Providers Care Headlight Assembler Name Role Phone WELLINGTON CLINE Unavailable Allergies [...] Start Date End Date Status Dosage Xanax [facility] [address]-25 1 MG Orally 4 times a day 1 tablet Results No Known Results Summary Purpose eClinicalWorks Submission
--- OUTSIDE RECORDS SUMMARY | 2017-02-20 04:27 | XMS REPORT ---
Author Author WELLINGTON CLINE [facility] eClinicalWorks Address Unknown Phone Unavailable Care Team Providers Care Batch Tank Controller Name Role Phone WELLINGTON CLINE CP Unavailable [...] Unspecified conductive hearing loss 389.00 Active Assessment Attention-deficit hyperactivity disorder, unspecified type F90.9 Active Assessment Major depressive disorder, recurrent, moderate F33.1 Active Problem Essential hypertension, benign 401.1 Active Problem Need for prophylactic vaccination and inoculation, Influenza V04.81 Active Problem Pain in or around eye 379.91 Active Problem Adjustment disorder with depressed mood 309.0 Active Problem Ulcer of other part of foot 707.15 Active Problem Acute sinusitis, unspecified 461.9 Active Medications Medication Code System Code Instructions Start Date End Date Status Dosage Rexulti [facility] [address]-52 1 MG Orally Once a day Nov 17, 2015 1 tablet Invokana [facility] 88833573053 100 MG TAKE ONE TABLET BY MOUTH DAILY Tramadol HCl [facility] [address]-75 50 MG Orally every 6 hrs TAKE ONE TABLET BY MOUTH EVERY 6 HOURS NEEDED FOR PAIN Adderall [facility] [address]-35 30 MG Orally 2 times a day for ADHD 1 tablet Wellbutrin XL [facility] [address]-11 150 MG Orally Once a day take one tab daily X one week, then 2 tabs daily 2 tablet in the morning Xanax [facility] [address]-48 1 MG Orally Twice a day 1 tablet Triamcinolone Acetonide [facility] [address]-05 0.025 % Externally Twice a day Oct 22, 2015 1 application to affected area Lisinopril [facility] 86337579488 10 MG TAKE ONE TABLET BY MOUTH ONCE DAILY (MUST HAVE APPOINTMENT FOR ADDITIONAL REFILLS) Flonase [facility] 0 not defined Procedures Procedure Coding System Code Date Office Visit, Est Pt., Level 5 CPT-4 90713 Nov 17, 2015 [facility] VISIT ESTABLISHED PATIENT CPT-4 G0467 Nov 17, 2015 Vital Signs Date/Time: Nov 17, 2015 Cardiac Monitoring Heart Rate 80 bpm Weight 225 lbs Height 65 in BMI 37.44 Index Blood Pressure Diastolic 80 mmHg Blood Pressure Systolic 140 mmHg Results No Known Results Summary Purpose eClinicalWorks Submission
--- OUTSIDE RECORDS SUMMARY | 2017-02-20 04:27 | XMS REPORT ---
Author Author LAURA MOSHER [facility] eClinicalWorks Address Unknown Phone Unavailable Care Team Providers Care Disease Intervention Specialist Name Role Phone LAURA MOSHER CP Unavailable Allergies No Known Allergies Problems Problem Type Condition Code Onset Dates Condition Status Assessment Generalized anxiety disorder F41.1 Active Problem Diabetes E11.9 Active Assessment Major depressive disorder, recurrent episode, unspecified severity F33.9 Active Assessment Attention-deficit hyperactivity disorder, unspecified type F90.9 Active Problem Back pain M54.9 Active Problem 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 I10 Active Problem Arthritis M19.90 Active Problem Major depressive disorder, recurrent episode, unspecified severity F33.9 Active Problem Generalized anxiety disorder F41.1 Active Problem Psoriasis L40.9 Active Problem Tobacco abuse Z72.0 Active Medications Medication Code System Code Instructions Start Date End Date Status Dosage Wellbutrin XL [facility] [address]-74 150 MG Orally Once a day 2 tablets in the morning and 1 tablet early afternoon Invokana [facility] [address]-63 100 MG Orally Once a day 1 tablet Nystatin [facility] [address]-96 706719 UNIT/ML Mouth/Throat 4 times a day Dec 5 ml Lisinopril [facility] [address]-26 20 MG Orally Once a day 1 tablet Lipitor [facility] 13561972341 20 MG TAKE ONE TABLET BY MOUTH ONCE DAILY Adderall [facility] [address]-54 30 MG Orally 2 times a day for ADHD 1 tablet ALPRAZolam ER [facility] [address]-20 3 MG Orally at 8PM every lencho. February 19, 2016 1 tablet NovoLog [facility] [address]-17 100 UNIT/ML Subcutaneous 3 times a day 8 -10 units Tramadol HCl [facility] [address]-46 50 MG Orally every 6 hrs 1 tablet as needed Levemir Flexpen [facility] 89019193794 100 UNIT/ML INJECT 33 UNITS SUBCUTANEOUSLY DAILY Procedures Procedure Coding System Code Date Office Visit, Est Pt., Level 5 CPT-4 87642 February 19, 2016 [facility] VISIT ESTABLISHED PATIENT CPT-4 G0467 February 19, 2016 Vital Signs Date/Time: February 19, 2016 Cardiac Monitoring Heart Rate 84 bpm Weight 228.8 lbs Height 65 in BMI 38.07 Index Blood Pressure Diastolic 76 mmHg Blood Pressure Systolic 138 mmHg Results No Known Results Summary Purpose eClinicalWorks Submission
--- OUTSIDE RECORDS SUMMARY | 2017-02-20 04:27 | XMS REPORT ---
Author Author MELISSA DELGADO [facility] eClinicalWorks Address Unknown Phone Unavailable Care Team Providers Care Crib Pad Maker Name Role Phone MELISSA DELGADO Unavailable Allergies [...] Start Date End Date Status Dosage Adderall [facility] [address]-97 30 MG Orally 2 times a day for ADHD Dr Carcamo to sign for Samantha 1 tablet Results No Known Results Summary Purpose eClinicalWorks Submission
--- OUTSIDE RECORDS SUMMARY | 2017-02-20 04:27 | XMS REPORT ---
Author Author MELISSA DELGADO [facility] eClinicalWorks Address Unknown Phone Unavailable Care Team Providers Care Wood Car Builder Name Role Phone MELISSA DELGADO Unavailable Allergies [...] Start Date End Date Status Dosage Xanax [facility] [address]-06 1 MG Orally Twice a day March 17, 2015 1 tablet Results No Known Results Summary Purpose eClinicalWorks Submission
--- OUTSIDE RECORDS SUMMARY | 2017-02-20 04:27 | XMS REPORT ---
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 will refill after appt 07/22/2016 Once a day 1 tablet 24h Active RESULTS No Results PROCEDURES No Known procedures IMMUNIZATIONS No Known Immunizations
--- OUTSIDE RECORDS SUMMARY | 2017-02-20 04:28 | XMS REPORT ---
Author Author MELISSA DELGADO [facility] eClinicalWorks Address Unknown Phone Unavailable Care Team Providers Care Clinical Quality Assurance Specialist Name Role Phone MELISSA DELGADO Unavailable Allergies [...] Start Date End Date Status Dosage Adderall [facility] [address]-85 30 MG Orally 2 times a day for ADHD [place]v to sign for Samantha 1 tablet Results No Known Results Summary Purpose eClinicalWorks Submission
--- OUTSIDE RECORDS SUMMARY | 2017-02-20 04:28 | XMS REPORT ---
Author Author MELISSA DELGADO [facility] eClinicalWorks Address Unknown Phone Unavailable Care Team Providers Care Ticket Worker Name Role Phone MELISSA DELGADO Unavailable Allergies [...] Dosage Adderall [facility] [address]-54 30 MG Orally 2 times a day for ADHD [place] to sign for Samantha 1 tablet Results No Known Results Summary Purpose eClinicalWorks Submission
--- OUTSIDE RECORDS SUMMARY | 2017-02-20 04:28 | XMS REPORT ---
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
--- OUTSIDE RECORDS SUMMARY | 2017-02-20 04:28 | XMS REPORT ---
Author KAYLA Archer [facility] eClinicalWorks Address Unknown Phone Unavailable Care Team Providers Care Test Engineering Technician Name Role Phone KAYLA MCLEOD CP Unavailable Allergies, Adverse Reactions, Alerts Substance Reaction Event Type Methylphenidate twitching Drug Allergy Byetta 5 MCG Pen stomach upset Drug Allergy Bactrim hallucinations Drug Allergy Problems Problem Type Condition Code Onset Dates Condition Status Assessment Arthralgia, unspecified joint M25.50 Active Problem Diabetes E11.9 Active Assessment Psoriatic arthritis L40.50 Active Problem Back pain M54.9 Active Problem 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 I10 Active Problem Arthritis M19.90 Active Problem Major depressive disorder, recurrent episode, unspecified severity F33.9 Active Problem Generalized anxiety disorder F41.1 Active Problem Psoriasis L40.9 Active Problem Tobacco abuse Z72.0 Active Medications Medication Code System Code Instructions Start Date End Date Status Dosage ALPRAZolam ER [facility] [address]-65 3 MG Orally at 8PM every lencho. February 19, 2016 1 tablet Tramadol HCl [facility] [address]-47 50 MG Orally every 6 hrs 1 tablet as needed Invokana [facility] [address]-66 100 MG Orally Once a day 1 tablet Levemir Flexpen [facility] 67612283084 100 UNIT/ML INJECT 33 UNITS SUBCUTANEOUSLY DAILY Lipitor [facility] 14601630223 20 MG TAKE ONE TABLET BY MOUTH ONCE DAILY Wellbutrin XL [facility] [address]-80 150 MG Orally Once a day 2 tablets in the morning and 1 tablet early afternoon Lisinopril [facility] [address]-20 20 MG Orally Once a day 1 tablet NovoLog [facility] [address]-94 100 UNIT/ML Subcutaneous 3 times a day 8 -10 units Humira Pen [facility] [address]-58 40 MG/0.8ML Subcutaneous every 2 weeks February 25, 2016 Nov 21, 2016 0.8 ml Adderall [facility] [address]-68 30 MG Orally 2 times a day for ADHD 1 tablet Procedures Procedure Coding System Code Date ON LICENSE OF [facility] VISIT ESTABLISHED PATIENT CPT-4 G0467 February 25, 2016 Office Visit, Est Pt., Level 4 CPT-4 18872 February 25, 2016 [facility] NOBLL February 25, 2016 VENIPUNCT, ROUTINE* CPT-4 69978 February 25, 2016 Vital Signs Date/Time: February 25, 2016 Temperature 98.1 F Weight 230.1 lbs Height 65 in BMI 38.29 Index Blood Pressure Diastolic 88 mmHg Blood Pressure Systolic 144 mmHg Cardiac Monitoring Heart Rate 84 bpm Results No Known Results Summary Purpose eClinicalWorks Submission
--- OUTSIDE RECORDS SUMMARY | 2017-02-20 04:28 | XMS REPORT ---
Author Author CAROLINA BEAVER [facility] eClinicalWorks Address Unknown Phone Unavailable Care Team Providers Care Hardwood Finisher Name Role Phone CAROLINA BEAVER CP Unavailable [...] Date End Date Status Dosage NovoLog Flexpen [facility] [address]-18 100 UNIT/ML Oct 29, 2014 inject 10 Units by Subcutaneous route before meals 3 times per day Tramadol HCl [facility] [address]-71 50 MG Orally every 6 hrs TAKE ONE TABLET BY MOUTH EVERY 6 HOURS NEEDED FOR PAIN Results No Known Results Summary Purpose eClinicalWorks Submission
--- OUTSIDE RECORDS SUMMARY | 2017-02-20 04:28 | XMS REPORT ---
Author Author LAURA MOSHER [facility] eClinicalWorks Address Unknown Phone Unavailable Care Team Providers Care Medical Detail Representative Name Role Phone LAURA MOSHER CP Unavailable Allergies, Adverse Reactions, Alerts Substance Reaction Event Type Methylphenidate twitching Drug Allergy Byetta 5 MCG Pen stomach upset Drug Allergy Problems Problem Type Condition Code Onset Dates Condition Status Problem Diabetes E11.9 Active Problem Major depressive disorder, recurrent episode, unspecified severity F33.9 Active Problem Generalized anxiety disorder F41.1 Active Problem alf 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 Active Problem Arthritis M19.90 Active Problem Type 2 diabetes mellitus with hyperglycemia E11.65 Active Problem Psoriasis L40.9 Active Problem Tobacco abuse Z72.0 Active Problem Back pain M54.9 Active Problem 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 I10 Active Assessment Attention-deficit hyperactivity disorder, predominantly hyperactive type F90.1 Active Assessment Generalized anxiety disorder F41.1 Active Assessment Major depressive disorder, recurrent episode, unspecified severity F33.9 Active Medications Medication Code System Code Instructions Start Date End Date Status Dosage Alprazolam [facility] [address]-24 1 MG Orally 4 times daily as needed March 11, 2016 1 tablet Escitalopram Oxalate [facility] [address]-30 10 MG Orally Once a day Jun 24, 2016 1 tablet Nystatin [facility] [address]-10 891833 UNIT/ML Mouth/Throat 4 times a day Dec 5 ml BD Insulin Syringe [facility] 8290-739805 30G X 1/2 subcutaneously 4 times a day Jun 21, 2016 use with insulin Adderall [facility] 50420099826 30 MG Orally Once a day 1 tablet Multivitamin Adult [facility] 39653-[address]45 - Orally, bubble pack for penitentiary Once a day 1 tablet Levemir [facility] [address]-72 100 UNIT/ML Subcutaneous Once a day May 28, 2016 33 units Lisinopril [facility] 13993189120 10 MG TAKE ONE TABLET BY MOUTH ONCE DAILY (MUST HAVE APPOINTMENT FOR ADDITIONAL REFILLS) Wellbutrin XL [facility] [address]-47 150 MG Orally, bubble pack for penitentiary Once a day 2 tablets in the morning and 1 tablet early afternoon NovoLog [facility] [address]-41 100 UNIT/ML Subcutaneous 3 times a day May 28, 2016 8 units Invokana [facility] 00727982770 100 MG Orally, bubble pack for penitentiary Once a day 1 tablet Procedures Procedure Coding System Code Date Office Visit, Est Pt., Level 4 CPT-4 29826 Jun 24, 2016 [facility] VISIT ESTABLISHED PATIENT CPT-4 G0467 Jun 24, 2016 Vital Signs Date/Time: Jun 24, 2016 Cardiac Monitoring Heart Rate 88 bpm Weight 224.0 lbs Height 65 in BMI 37.27 Index Blood Pressure Diastolic 86 mmHg Blood Pressure Systolic 145 mmHg Results No Known Results Summary Purpose eClinicalWorks Submission
== END 2017-01-26 13:58 | disposition home or self-care (01) ==
LOC: DELPENDDIS → ENDO 10:28
PROVIDERS: ATTEND Surgery Pediatric Surgery
DX: K21.0 Gastro-esophageal reflux disease with esophagitis (principal); K64.1 Second degree hemorrhoids; K29.70 Gastritis, unspecified, without bleeding; Z79.899 Other long term (current) drug therapy; R19.5 Other fecal abnormalities
CPT/HCPCS: 82962; 88305; 88342

== ENCOUNTER → 2017-02-22 | Outpatient (CLI) | payer MEDICARE ==
[~2017-02-22] MED LIST changes: +PANT40TA2 PO
--- NOTE | 2017-02-25 08:34 | Diagnostic Imaging Report ---
EXAMINATION: Bilateral screening mammogram with a Computer Aided Detection (CAD) system. INDICATION: Screening. PERSONAL HISTORY: No current complaints stated on the questionnaire. COMPARISON: 01/23/2001. FINDINGS: The breasts are composed of scattered fibroglandular densities. There are asymmetries seen in the upper and outer aspect of the right breast, both less than 1 cm in size, which were not clearly present on the 2000 exam. The left breast demonstrates no suspicious mass or cluster of calcifications. Benign-appearing calcifications are seen. IMPRESSION: Focal compression views and an ultrasound evaluation for upper and outer right breast asymmetries would be recommended. ACR BI-RADS Category 0: Incomplete. (Needs additional imaging evaluation). Result letter will be mailed to the patient. Note: At least 10% of breast cancer is not imaged by mammography. Dictated by: Dictated on workstation # [id number]
== END ==
LOC: RAD 10:23
PROVIDERS: ATTEND Obstetrics & Gynecology
DX: Z12.31 Encounter for screening mammogram for malignant neoplasm of breast (principal)
CPT/HCPCS: 77067

== ENCOUNTER → 2017-04-05 | Outpatient (CLI) | payer MEDICARE ==
--- NOTE | 2017-04-05 11:56 | Diagnostic Imaging Report ---
EXAMINATION: Right breast diagnostic mammogram with a Computer Aided Detection (CAD) system. COMPARISON: 02/22/2017 screening. INDICATION: Outer and upper right breast asymmetries. FINDINGS: Focal compression in the CC projection demonstrates no definite underlying lesion. The true lateral view and focal compression in the lateral projection, however, demonstrate a persistent lobulated nodule measuring 6 mm in size. It has circumscribed margins, in favor of a benign etiology. IMPRESSION: There is a central slightly superior right breast persistent asymmetry with circumscribed margins measuring 6 mm in size, suggestive of an underlying nodule. An ultrasound evaluation is pending. ACR BI-RADS Category 0: Incomplete. (Needs additional imaging evaluation). Result letter will be mailed to the patient. Note: At least 10% of breast cancer is not imaged by mammography. Dictated by: Dictated on workstation # [id number]
--- NOTE | 2017-04-05 11:59 | Diagnostic Imaging Report ---
EXAMINATION: Right breast ultrasound. INDICATION: Asymmetry along the central superior aspect of the right breast. FINDINGS: The upper aspect of the right breast was scanned in the retroareolar region with no underlying lesion seen. IMPRESSION: Negative study. The asymmetry seen on mammography has features suggestive of a benign nodule. A 6 month followup mammogram to ensure stability is recommended. ACR BI-RADS Category 3: Probably benign findings. Result letter will be mailed to the patient. Note: At least 10% of breast cancer is not imaged by mammography. Dictated by: Dictated on workstation # [id number]
== END ==
LOC: RAD 08:22
PROVIDERS: ATTEND Obstetrics & Gynecology
DX: R92.8 Other abnormal and inconclusive findings on diagnostic imaging of breast (principal)

== ENCOUNTER 2017-07-27 18:44 | Inpatient (IN) | payer MEDICARE ==
[~2017-07-27] VITALS: Ht 165.1 cm; Wt 120.7 kg
--- OUTSIDE RECORDS SUMMARY | 2017-07-27 18:49 | XMS REPORT ---
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 Active 358679418 Problem Attention-deficit hyperactivity disorder, predominantly hyperactive type F90.1 Active 282858868 Problem PTSD (post-traumatic stress disorder) F43.10 Active 12707393 Problem Major depressive disorder, recurrent, moderate F33.1 Active 41627406 Problem Other specified 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 Active 305271888 Problem Eating disorder F50.9 Active 14925290 Problem Attention-deficit hyperactivity disorder, combined type F90.2 Active 56990076 Problem Diabetes E11.9 Active 85868051 Problem Psoriasis L40.9 Active 8933138 Problem Tobacco abuse Z72.0 Active 10277686 Problem Generalized anxiety disorder F41.1 Active 45812868 Problem 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 I10 Active 95618973 Problem Major depressive disorder, recurrent episode, unspecified severity F33.9 Active 59930921 Problem Back pain M54.9 Active 472040975 ALLERGIES Unknown Allergies SOCIAL HISTORY No smoking Hx information available PLAN OF CARE VITAL SIGNS MEDICATIONS Medication Instructions Dosage Frequency Start Date End Date Duration Status Adderall 20 mg Orally Once a day 1 tablet in the morning 24h Oct, 28 days Active RESULTS No Results PROCEDURES No Known procedures IMMUNIZATIONS No Known Immunizations
--- OUTSIDE RECORDS SUMMARY | 2017-07-27 18:51 | XMS REPORT ---
Author Author Janina LAURA Organization [facility] Address [address] [place] [address] Care Team Providers Care Collection Systems Worker Name Role Phone carmencitaLAURA Hollingsworth Unavailable PROBLEMS Type Condition ICD9-CM Code [id number] Code Onset Dates Condition Status SNOMED Code Problem Arthritis M19.90 Active 4479866 Problem Psoriatic arthritis L40.50 Active 631873162 Problem bed bug exterminator 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 Active 216922989 Problem PTSD (post-traumatic stress disorder) F43.10 Active 75835281 Problem Eating disorder F50.9 Active 14436016 Problem Attention-deficit hyperactivity disorder, combined type F90.2 Active 82692711 Problem Other specified 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 Active 535168998 Problem Attention-deficit hyperactivity disorder, predominantly hyperactive type F90.1 Active 661879646 Problem Major depressive disorder, recurrent, moderate F33.1 Active 31110363 Problem Diabetes E11.9 Active 20238294 Problem Tobacco abuse Z72.0 Active 97779299 Problem Psoriasis L40.9 Active 0321888 Problem Generalized anxiety disorder F41.1 Active 28425116 Problem 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 I10 Active 19030730 Problem Major depressive disorder, recurrent episode, unspecified severity F33.9 Active 05981999 Problem Back pain M54.9 Active 533972700 ALLERGIES Unknown Allergies SOCIAL HISTORY No smoking Hx information available PLAN OF CARE VITAL SIGNS MEDICATIONS Medication Instructions Dosage Frequency Start Date End Date Duration Status Alprazolam 1 MG Orally 4 times daily as needed 1 tablet February, Active RESULTS No Results PROCEDURES No Known procedures IMMUNIZATIONS No Known Immunizations
--- OUTSIDE RECORDS SUMMARY | 2017-07-27 18:51 | XMS REPORT ---
Author Author KAYLA GUTIERREZ [facility] Address [address] [place] [address] Care Team Providers Care Stone Lathe Operator Name Role Phone KAYLA GUTIERREZ Unavailable PROBLEMS Type Condition ICD9-CM Code [id number] Code Onset Dates Condition Status SNOMED Code Problem Arthritis M19.90 Active 9140965 Problem Psoriatic arthritis L40.50 Active 496455188 Problem long-term 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 Active 430367516 Problem Attention-deficit hyperactivity disorder, predominantly hyperactive type F90.1 Active 650802630 Problem PTSD (post-traumatic stress disorder) F43.10 Active 23389205 Problem Major depressive disorder, recurrent, moderate F33.1 Active 68568812 Problem Other specified 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 Active 458964921 Problem Eating disorder F50.9 Active 31325360 Problem Attention-deficit hyperactivity disorder, combined type F90.2 Active 95223721 Problem Diabetes E11.9 Active 48355795 Problem Psoriasis L40.9 Active 8195845 Problem Tobacco abuse Z72.0 Active 65262769 Problem Generalized anxiety disorder F41.1 Active 51957331 Problem 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 I10 Active 75157816 Problem Major depressive disorder, recurrent episode, unspecified severity F33.9 Active 68691284 Problem Back pain M54.9 Active 148440254 ALLERGIES Substance Reaction Event Type Date Status Methylphenidate twitching Drug Allergy Sep, Active Byetta 5 MCG Pen stomach upset Drug Allergy Sep, Active SOCIAL HISTORY No smoking Hx information available PLAN OF CARE Activity Details Follow Up 4 Weeks Reason: VITAL SIGNS Height 65 in 2016-10-06 Weight 227 lbs 2016-10-06 Temperature 98.4 degrees Fahrenheit 2016-10-06 Heart Rate 82 bpm 2016-10-06 Respiratory Rate 20 2016-10-06 BMI 37.77 kg/m2 2016-10-06 Blood pressure systolic 140 mmHg 2016-10-06 Blood pressure diastolic 70 mmHg 2016-10-06 MEDICATIONS Medication Instructions Dosage Frequency Start Date End Date Duration Status Invokana 100 MG TAKE ONE TABLET BY MOUTH DAILY 30 Active Humira Pen 40 MG/0.8ML Subcutaneous every 2 weeks 0.8 ml Jan, 90 days Active Escitalopram Oxalate 10 MG Orally Once a day 1 tablet 24h May, Active Wellbutrin XL 150 MG 2 tabs every morning Active NovoLog Flexpen 100 UNIT/ML Subcutaneous 3 times a day 12 u 8h Sep, Active Multivitamin Adult - Orally, bubble pack for [facility] Once a day 1 tablet 24h Active Promethazine HCl 25 MG Orally every 4-6 hours as needed 1 tablet as needed May, Active Tramadol HCl 50 mg Orally every 6 hrs 1 tablet as needed 6h Jul, Active Insulin Detemir 100 UNIT/ML Subcutaneous Once a day 38 u 24h Sep, Active Adderall 20 mg Orally Once a day 1 tablet in the morning 24h Jul, Active Lisinopril 10 MG TAKE ONE TABLET BY MOUTH ONCE DAILY (MUST HAVE APPOINTMENT FOR ADDITIONAL REFILLS) 30 Active Nystatin 099554 UNIT/ML Mouth/Throat 4 times a day 5 ml 6h Dec, Active Alprazolam 1 MG Orally 4 times daily as needed 1 tablet February, Active Triamcinolone Acetonide 0.1 % Externally to ears Twice a day 1 application to affected area 12h Sep, Active BD Insulin Syringe 30G X 1/2 subcutaneously 4 times a day use with insulin 6h May, Active RESULTS Name Result Date Reference Range ESR/SED RATE 2016-10-06 Sedimentation Rate-Westergren 3 0-40 CRP 2016-10-06 C-Reactive Protein, Quant 15.4 0.0-4.9 PROCEDURES Procedure Date Ordered Related Diagnosis [facility] VENIPUNCT, ROUTINE* Oct 06, 2016 Office Visit, Est Pt., Level 4 Oct 06, 2016 [facility] VISIT ESTABLISHED PATIENT Oct 06, 2016 IMMUNIZATIONS No Known Immunizations
--- OUTSIDE RECORDS SUMMARY | 2017-07-27 18:52 | XMS REPORT ---
Author Author LAURA Roa Organization [facility] Address [address] [place] [address] Care Team Providers Care Family And Consumer Sciences Professor Name Role Phone JaninaMARCINY Unavailable PROBLEMS Type Condition ICD9-CM Code [id number] Code Onset Dates Condition Status SNOMED Code Problem Arthritis M19.90 Active 0035452 Problem Psoriatic arthritis L40.50 Active 881377072 Problem extermination inspector 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 Active 592385266 Problem Attention-deficit hyperactivity disorder, predominantly hyperactive type F90.1 Active 598835653 Problem PTSD (post-traumatic stress disorder) F43.10 Active 90962257 Problem Major depressive disorder, recurrent, moderate F33.1 Active 42926258 Problem Other specified 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 Active 151707076 Problem Eating disorder F50.9 Active 28084769 Problem Attention-deficit hyperactivity disorder, combined type F90.2 Active 71679446 Problem Diabetes E11.9 Active 49515237 Problem Psoriasis L40.9 Active 1483062 Problem Tobacco abuse Z72.0 Active 90526132 Problem Generalized anxiety disorder F41.1 Active 70251069 Problem 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 I10 Active 97884157 Problem Major depressive disorder, recurrent episode, unspecified severity F33.9 Active 58724880 Problem Back pain M54.9 Active 602223028 ALLERGIES No Information SOCIAL HISTORY Never Assessed PLAN OF CARE VITAL SIGNS MEDICATIONS Unknown Medications RESULTS No Results PROCEDURES No Known procedures IMMUNIZATIONS No Known Immunizations MEDICAL (GENERAL) HISTORY Type Description Date Medical History type II diabetes Medical History hernia (incisional and abdominal) Medical History psoriatic arthritis Medical History eating disorder (food addiction) Medical History depression Medical History hypertension Medical History anxiety w/ panic disorder Medical History attention deficit hyperactivity disorder Surgical History gastroplasty-vertical banded Surgical History hysterectomy Surgical History section Surgical History veinous reflux Surgical History Left Knee SOA-Dr. Melendrez-[facility] 05/19/16 Hospitalization History surgeries Hospitalization History Left Knee BALAJIA--[facility]. Melendrez--[facility]
--- OUTSIDE RECORDS SUMMARY | 2017-07-27 18:52 | XMS REPORT ---
Author Author LAURA Roa Organization [facility] Address [address] [place] [address] Care Team Providers Care Vice President Of Talent Acquisition Name Role Phone carmencitaMARCIN HollingsworthY Unavailable PROBLEMS Type Condition ICD9-CM Code [id number] Code Onset Dates Condition Status SNOMED Code Problem Arthritis M19.90 Active 2633514 Problem Psoriatic arthritis L40.50 Active 140597946 Problem intermodal dispatcher 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 Active 243263386 Problem Attention-deficit hyperactivity disorder, predominantly hyperactive type F90.1 Active 638399539 Problem PTSD (post-traumatic stress disorder) F43.10 Active 92510034 Problem Major depressive disorder, recurrent, moderate F33.1 Active 59879586 Problem Other specified 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 Active 979563593 Problem Eating disorder F50.9 Active 03700598 Problem Attention-deficit hyperactivity disorder, combined type F90.2 Active 17646853 Problem Diabetes E11.9 Active 58734668 Problem Psoriasis L40.9 Active 3381310 Problem Tobacco abuse Z72.0 Active 46682139 Problem Generalized anxiety disorder F41.1 Active 47876655 Problem 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 I10 Active 71784627 Problem Major depressive disorder, recurrent episode, unspecified severity F33.9 Active 77524719 Problem Back pain M54.9 Active 731639114 ALLERGIES Unknown Allergies SOCIAL HISTORY No smoking Hx information available PLAN OF CARE VITAL SIGNS MEDICATIONS Medication Instructions Dosage Frequency Start Date End Date Duration Status Alprazolam 1 MG Orally Three times a day as needed 1 tablet February, 30 days Active RESULTS No Results PROCEDURES No Known procedures IMMUNIZATIONS No Known Immunizations
--- OUTSIDE RECORDS SUMMARY | 2017-07-27 18:53 | XMS REPORT ---
Author Author VASILE PORTILLO Organization [facility] Address [address] [place] [address] Care Team Providers Care Combatant Diver Officer Name Role Phone VASILE PORTILLO Unavailable PROBLEMS Type Condition ICD9-CM Code MWM78-SE Code Onset Dates Condition Status SNOMED Code Problem Arthritis M19.90 Active 3104555 Problem Psoriatic arthritis L40.50 Active 867536018 Problem intermodal dispatcher 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 Active 302141010 Problem Attention-deficit hyperactivity disorder, predominantly hyperactive type F90.1 Active 241058284 Problem PTSD (post-traumatic stress disorder) F43.10 Active 07590851 Problem Major depressive disorder, recurrent, moderate F33.1 Active 57935268 Problem Other specified 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 Active 405335163 Problem Eating disorder F50.9 Active 05400973 Problem Attention-deficit hyperactivity disorder, combined type F90.2 Active 73825223 Problem Diabetes E11.9 Active 68807289 Problem Psoriasis L40.9 Active 5106370 Problem Tobacco abuse Z72.0 Active 70551756 Problem Generalized anxiety disorder F41.1 Active 99367874 Problem 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 I10 Active 15230956 Problem Major depressive disorder, recurrent episode, unspecified severity F33.9 Active 92372143 Problem Back pain M54.9 Active 966422639 ALLERGIES Unknown Allergies SOCIAL HISTORY No smoking Hx information available PLAN OF CARE Activity Details Follow Up 2 Weeks Reason: VITAL SIGNS MEDICATIONS Unknown Medications RESULTS No Results PROCEDURES Procedure Date Ordered Related Diagnosis Body Site [facility] VISIT MENTAL HEALTH ESTAB PT Nov 04, 2016 Psychotherapy, patient &/family, 45 minutes, established patient Nov 04, 2016 IMMUNIZATIONS No Known Immunizations
--- OUTSIDE RECORDS SUMMARY | 2017-07-27 18:53 | XMS REPORT ---
Author Author LAURA Roa Organization [facility] Address [address] [place] [address] Care Team Providers Care Registered Diet Technician Name Role Phone carmencitaLAURA Hollingsworth Unavailable PROBLEMS Type Condition ICD9-CM Code [id number] Code Onset Dates Condition Status SNOMED Code Problem Arthritis M19.90 Active 0727412 Problem Psoriatic arthritis L40.50 Active 844382108 Problem termite control technician 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 Active 545823733 Problem PTSD (post-traumatic stress disorder) F43.10 Active 22745731 Problem Eating disorder F50.9 Active 56250588 Problem Attention-deficit hyperactivity disorder, combined type F90.2 Active 40906087 Problem Other specified 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 Active 343729197 Problem Attention-deficit hyperactivity disorder, predominantly hyperactive type F90.1 Active 478046735 Problem Major depressive disorder, recurrent, moderate F33.1 Active 11406669 Problem Diabetes E11.9 Active 08408344 Problem Tobacco abuse Z72.0 Active 01436203 Problem Psoriasis L40.9 Active 9945050 Problem Generalized anxiety disorder F41.1 Active 00822733 Problem 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 I10 Active 60032742 Problem Major depressive disorder, recurrent episode, unspecified severity F33.9 Active 47943857 Problem Back pain M54.9 Active 654956492 ALLERGIES Unknown Allergies SOCIAL HISTORY No smoking Hx information available PLAN OF CARE VITAL SIGNS MEDICATIONS Medication Instructions Dosage Frequency Start Date End Date Duration Status Adderall 20 mg Orally Once a day 1 tablet in the morning 24h Sep, Active RESULTS No Results PROCEDURES No Known procedures IMMUNIZATIONS No Known Immunizations
--- OUTSIDE RECORDS SUMMARY | 2017-07-27 18:53 | XMS REPORT ---
Author Author Janina LAURA Organization [facility] Address [address] [place] [address] Care Team Providers Care Blender / Cook Name Role Phone carmencitaLAURA Hollingsworth Unavailable PROBLEMS Type Condition ICD9-CM Code [id number] Code Onset Dates Condition Status SNOMED Code Problem Arthritis M19.90 Active 7031969 Problem Psoriatic arthritis L40.50 Active 730209832 Problem regional intermodal truck driver 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 Active 878871951 Problem PTSD (post-traumatic stress disorder) F43.10 Active 23065635 Problem Eating disorder F50.9 Active 87059476 Problem Attention-deficit hyperactivity disorder, combined type F90.2 Active 92783045 Problem Other specified 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 Active 083532754 Problem Attention-deficit hyperactivity disorder, predominantly hyperactive type F90.1 Active 394031019 Problem Major depressive disorder, recurrent, moderate F33.1 Active 86333897 Problem Diabetes E11.9 Active 79745825 Problem Tobacco abuse Z72.0 Active 40224014 Problem Psoriasis L40.9 Active 8096129 Problem Generalized anxiety disorder F41.1 Active 58827114 Problem 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 I10 Active 97538123 Problem Major depressive disorder, recurrent episode, unspecified severity F33.9 Active 92143110 Problem Back pain M54.9 Active 317363165 ALLERGIES Unknown Allergies SOCIAL HISTORY No smoking Hx information available PLAN OF CARE VITAL SIGNS MEDICATIONS Medication Instructions Dosage Frequency Start Date End Date Duration Status Alprazolam 1 MG Orally 4 times daily as needed 1 tablet February, Active RESULTS No Results PROCEDURES No Known procedures IMMUNIZATIONS No Known Immunizations
--- OUTSIDE RECORDS SUMMARY | 2017-07-27 18:54 | XMS REPORT ---
Author Author Janina LAURA Organization [facility] Address [address] [place] [address] Care Team Providers Care Paint Spray Tender Name Role Phone carmencitaLAURA Hollingsworth Unavailable PROBLEMS Type Condition ICD9-CM Code [id number] Code Onset Dates Condition Status SNOMED Code Problem Arthritis M19.90 Active 6185531 Problem Psoriatic arthritis L40.50 Active 871890603 Problem penitentiary 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 Active 829317229 Problem PTSD (post-traumatic stress disorder) F43.10 Active 17130601 Problem Eating disorder F50.9 Active 37177322 Problem Attention-deficit hyperactivity disorder, combined type F90.2 Active 09269827 Problem Other specified 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 Active 807531293 Problem Attention-deficit hyperactivity disorder, predominantly hyperactive type F90.1 Active 583964687 Problem Major depressive disorder, recurrent, moderate F33.1 Active 44712031 Problem Diabetes E11.9 Active 27574029 Problem Tobacco abuse Z72.0 Active 43951599 Problem Psoriasis L40.9 Active 4699022 Problem Generalized anxiety disorder F41.1 Active 42748577 Problem 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 I10 Active 46061864 Problem Major depressive disorder, recurrent episode, unspecified severity F33.9 Active 36997914 Problem Back pain M54.9 Active 731381392 ALLERGIES Substance Reaction Event Type Date Status Methylphenidate twitching Drug Allergy Sep, Active Byetta 5 MCG Pen stomach upset Drug Allergy Sep, Active SOCIAL HISTORY No smoking Hx information available PLAN OF CARE Activity Details Follow Up 3 Months Reason: VITAL SIGNS Height 65 in 2016-10-14 Weight 234.4 lbs 2016-10-14 Heart Rate 96 bpm 2016-10-14 Respiratory Rate 20 2016-10-14 BMI 39.00 kg/m2 2016-10-14 Blood pressure systolic 140 mmHg 2016-10-14 Blood pressure diastolic 81 mmHg 2016-10-14 MEDICATIONS Medication Instructions Dosage Frequency Start Date End Date Duration Status Promethazine HCl 25 MG Orally every 4-6 hours as needed 1 tablet as needed 5 Active BD Insulin Syringe 30G X 1/2 subcutaneously 4 times a day use with insulin 6h May, Active Escitalopram Oxalate 10 MG Orally Once a day 1 tablet 24h May, Active Triamcinolone Acetonide 0.1 % Externally to ears Twice a day 1 application to affected area 12h Sep, Active Lisinopril 10 MG TAKE ONE TABLET BY MOUTH ONCE DAILY (MUST HAVE APPOINTMENT FOR ADDITIONAL REFILLS) 30 Active NovoLog Flexpen 100 UNIT/ML Subcutaneous 3 times a day 12 u 8h Sep, Active Adderall 20 mg Orally Once a day 1 tablet in the morning 24h Jul, Active Alprazolam 1 MG Orally 4 times daily as needed 1 tablet February, Active Invokana 100 MG TAKE ONE TABLET BY MOUTH DAILY 30 Active Nystatin 933225 UNIT/ML Mouth/Throat 4 times a day 5 ml 6h Dec, Active Humira Pen 40 MG/0.8ML Subcutaneous every 2 weeks 0.8 ml Jan, 90 days Active Wellbutrin XL 150 MG 2 tabs every morning Active Multivitamin Adult - Orally, bubble pack for skilled nursing Once a day 1 tablet 24h Active Tramadol HCl 50 mg Orally every 6 hrs 1 tablet as needed 6h Jul, Active Insulin Detemir 100 UNIT/ML Subcutaneous Once a day 38 u 24h Sep, Active RESULTS Name Result Date Reference Range URINE DRUG SCREEN (IN HOUSE) 2016-10-14 Lot # [id number] Exp date 04/2018 Control + COCAINE NEGATIVE AMPH POSITIVE MTD NEGATIVE THC NEGATIVE OPIATE NEGATIVE BENZO POSITIVE PCP NEGATIVE BAR NEGATIVE OXY NEGATIVE MAMP NEGATIVE TCA BUP NEGATIVE MDMA NEGATIVE PROCEDURES Procedure Date Ordered Related Diagnosis Body Site DRUG SCREEN NON TLC DEVICES Oct 14, 2016 [facility] VISIT ESTABLISHED PATIENT Oct 14, 2016 Office Visit, Est Pt., Level 3 Oct 14, 2016 IMMUNIZATIONS No Known Immunizations
--- OUTSIDE RECORDS SUMMARY | 2017-07-27 18:54 | XMS REPORT ---
Author Author VASILE PORTILLO Organization [facility] Address [address] [place] [address] Care Team Providers Care Electromechanical Equipment Assembler Name Role Phone VASILE PORTILLO Unavailable PROBLEMS Type Condition ICD9-CM Code [id number] Code Onset Dates Condition Status SNOMED Code Problem Arthritis M19.90 Active 2536867 Problem Psoriatic arthritis L40.50 Active 236715587 Problem termite renewal inspector 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 Active 169377663 Problem PTSD (post-traumatic stress disorder) F43.10 Active 32208052 Problem Eating disorder F50.9 Active 43198517 Problem Attention-deficit hyperactivity disorder, combined type F90.2 Active 05810490 Problem Other specified 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 Active 505761802 Problem Attention-deficit hyperactivity disorder, predominantly hyperactive type F90.1 Active 137870271 Problem Major depressive disorder, recurrent, moderate F33.1 Active 92451038 Problem Diabetes E11.9 Active 86823495 Problem Tobacco abuse Z72.0 Active 80259384 Problem Psoriasis L40.9 Active 0183996 Problem Generalized anxiety disorder F41.1 Active 57011040 Problem 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 I10 Active 34772738 Problem Major depressive disorder, recurrent episode, unspecified severity F33.9 Active 54824077 Problem Back pain M54.9 Active 580383247 ALLERGIES Unknown Allergies SOCIAL HISTORY No smoking Hx information available PLAN OF CARE Activity Details Follow Up 2 Weeks Reason: VITAL SIGNS MEDICATIONS Unknown Medications RESULTS No Results PROCEDURES Procedure Date Ordered Related Diagnosis Body Site [facility] VISIT MENTAL HEALTH ESTAB PT Oct 07, 2016 Psychotherapy, patient &/family, 30 minutes, established patient Oct 07, 2016 IMMUNIZATIONS No Known Immunizations
--- OUTSIDE RECORDS SUMMARY | 2017-07-27 18:54 | XMS REPORT ---
Author Author LAURA Roa Organization [facility] Address [address] [place] [address] Care Team Providers Care Cathode Washer Name Role Phone carmencitaMARCIN HollingsworthY Unavailable PROBLEMS Type Condition ICD9-CM Code [id number] Code Onset Dates Condition Status SNOMED Code Problem Arthritis M19.90 Active 2560443 Problem Psoriatic arthritis L40.50 Active 567834778 Problem host coordinator 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 Active 993359633 Problem Attention-deficit hyperactivity disorder, predominantly hyperactive type F90.1 Active 165466652 Problem PTSD (post-traumatic stress disorder) F43.10 Active 78490623 Problem Major depressive disorder, recurrent, moderate F33.1 Active 38407253 Problem Other specified 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 Active 684830963 Problem Eating disorder F50.9 Active 57307356 Problem Attention-deficit hyperactivity disorder, combined type F90.2 Active 92629496 Problem Diabetes E11.9 Active 51848576 Problem Psoriasis L40.9 Active 8103136 Problem Tobacco abuse Z72.0 Active 62773269 Problem Generalized anxiety disorder F41.1 Active 98939782 Problem 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 I10 Active 58276505 Problem Major depressive disorder, recurrent episode, unspecified severity F33.9 Active 62052299 Problem Back pain M54.9 Active 306752360 ALLERGIES Unknown Allergies SOCIAL HISTORY No smoking Hx information available PLAN OF CARE VITAL SIGNS MEDICATIONS Medication Instructions Dosage Frequency Start Date End Date Duration Status Alprazolam 1 MG Orally Three times a day as needed 1 tablet February, 30 days Active RESULTS No Results PROCEDURES No Known procedures IMMUNIZATIONS No Known Immunizations
--- OUTSIDE RECORDS SUMMARY | 2017-07-27 18:55 | XMS REPORT ---
Author Author Janina LAURA Organization [facility] Address [address] [place] [address] Care Team Providers Care Assistant Restaurant General Manager Name Role Phone carmencitaLAURA Hollingsworth Unavailable PROBLEMS Type Condition ICD9-CM Code [id number] Code Onset Dates Condition Status SNOMED Code Problem Arthritis M19.90 Active 4121821 Problem Psoriatic arthritis L40.50 Active 699284931 Problem rat exterminator 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 Active 280843408 Problem Attention-deficit hyperactivity disorder, predominantly hyperactive type F90.1 Active 844441667 Problem PTSD (post-traumatic stress disorder) F43.10 Active 73923238 Problem Major depressive disorder, recurrent, moderate F33.1 Active 35530118 Problem Other specified 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 Active 674576437 Problem Eating disorder F50.9 Active 80096329 Problem Attention-deficit hyperactivity disorder, combined type F90.2 Active 55105822 Problem Diabetes E11.9 Active 49442259 Problem Psoriasis L40.9 Active 7505144 Problem Tobacco abuse Z72.0 Active 73732075 Problem Generalized anxiety disorder F41.1 Active 42662197 Problem 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 I10 Active 88392792 Problem Major depressive disorder, recurrent episode, unspecified severity F33.9 Active 93408237 Problem Back pain M54.9 Active 439270686 ALLERGIES No Information SOCIAL HISTORY Never Assessed PLAN OF CARE VITAL SIGNS MEDICATIONS Medication [...] veinous reflux Surgical History Left Knee SOA-Dr. Melendrez-[facility] 05/19/16 Hospitalization History surgeries Hospitalization History Left Knee DAX--Dr. Melendrez--[facility]
[2017-07-27] MEDS ORDERED: NS IV 1000 ML 1,000 ML IV ONE (18:58)
--- OUTSIDE RECORDS SUMMARY | 2017-07-27 18:59 | XMS REPORT | Continuity of Care Document ---
Author Author [facility] Address Unknown Phone Unavailable Allergies Active Description Code Type Severity Reaction Onset Reported/Identified Relationship to Patient Clinical Status Yes Byetta Prefilled Pen Drug Allergy 10/09/2010 Yes methylphenidate 20 mg tablet Drug Allergy 09/08/2012 Yes methylphenidate 20 mg tablet Drug Allergy N/A N/A 09/08/2012 Yes Sulfa (Sulfonamide Antibiotics) [id number] Drug Allergy Unknown N/A 08/26/2014 Yes morphine [id number] Drug Allergy Unknown NAUSEA 05/13/2016 Yes morphine [id number] Drug Allergy Mild NAUSEA 05/19/2016 Medications Problems [...] KENNEDY 250.02 DIABETES II UNCONTROLLED 10/09/2010 CROWELL SUPERVISOR CEREAL, EVERARDO KENNEDY 782.3 EDEMA 10/09/2010 LATOSHA CHRISTOPHER, DILAN R 250.02 DIABETES II UNCONTROLLED 10/09/2010 LATOSHA CHRISTOPHER, DILAN R 782.3 EDEMA 10/09/2010 SOCRATES CHRISTOPHER, EVERARDO KENNEDY [...] PORTILLO PSYD ANN L 782.3 EDEMA 10/09/2010 SOCRATES CHRISTOPHER, EVERARDO [...] BENOIT, KASI L 782.3 EDEMA 10/09/2010 CROWELL SUPERVISOR CEREAL, EVERARDO KENNEDY 250.02 DIABETES II UNCONTROLLED 10/09/2010 CROWELL SUPERVISOR CEREAL, EVERARDO KENNEDY 782.3 EDEMA 10/09/2010 LINDSEY BENOIT, [...] BALWINDER DPM, MATTY 782.3 EDEMA 10/09/2010 SANDY SUPERVISOR CEREAL, MELISSA 250.02 DIABETES II UNCONTROLLED 10/09/2010 SANDY SUPERVISOR CEREAL, MELISSA 782.3 EDEMA 10/09/2010 LINDSEY BENOIT, KASI L 250.02 DIABETES II UNCONTROLLED 10/09/2010 LINDSEY BENOIT, KASI L 782.3 EDEMA 10/09/2010 LINDSEY BENOIT, KASI L 250.02 DIABETES II UNCONTROLLED 10/09/2010 LINDSEY BENOIT KASI L 782.3 EDEMA 10/09/2010 HUERTER MD, CAROLINA 250.02 DIABETES II UNCONTROLLED 10/09/2010 CAROLINA BEAVER MD 782.3 EDEMA 10/09/2010 VASILE PORTILLO PSYD L 250.02 DIABETES II UNCONTROLLED 10/09/2010 VASILE PORTILLO PSYD L 782.3 EDEMA 10/09/2010 SANDY SUPERVISOR CEREAL, MELISSA 250.02 DIABETES II UNCONTROLLED 10/09/2010 SANDY SUPERVISOR CEREAL, MELISSA 782.3 EDEMA 10/09/2010 CAROLINA BEAVER MD 250.02 DIABETES II UNCONTROLLED 10/09/2010 CAROLINA BEAVER MD 782.3 EDEMA 10/09/2010 SANDY SUPERVISOR CEREAL, MELISSA 250.02 DIABETES II UNCONTROLLED 10/09/2010 SANDY SUPERVISOR CEREAL, MELISSA 782.3 EDEMA 10/09/2010 CAROLINA BEAVER MD 250.02 DIABETES II UNCONTROLLED 10/09/2010 CAROLINA BEAVER MD 782.3 EDEMA 10/09/2010 SANDY SUPERVISOR CEREAL, MELISSA 250.02 DIABETES II UNCONTROLLED 10/09/2010 SANDY SUPERVISOR CEREAL, MELISSA 782.3 EDEMA 10/09/2010 VASILE PORTILLO PSYD L 250.02 DIABETES II UNCONTROLLED 10/09/2010 VASILE PORTILLO PSYD L 782.3 EDEMA 11/19/2010 CAROLINA BEAVER MD 300.01 PANIC DISORDER WITHOUT AGORAPHOBIA 11/19/2010 CAROLINA BEAVER MD 847.0 SPRAIN OF NECK 11/19/2010 SOCRATES CHRISTOPHER EVERARDO BRENT 300.01 PANIC DISORDER WITHOUT AGORAPHOBIA 11/19/2010 EVERARDO CROWELL APRN 847.0 SPRAIN OF NECK 11/19/2010 300.01 PANIC [...] AGORAPHOBIA 11/19/2010 847.0 SPRAIN OF NECK 11/19/2010 SOCRATES SUPERVISOR CEREAL, EVERARDO LUCIOH 300.01 PANIC DISORDER WITHOUT AGORAPHOBIA 11/19/2010 SOCRATES SUPERVISOR CEREALEVERARDO 847.0 SPRAIN OF NECK 11/19/2010 CAROLINA BEAVER MD 300.01 PANIC DISORDER WITHOUT AGORAPHOBIA 11/19/2010 CAROLINA BEAVER MD 847.0 SPRAIN OF NECK 11/19/2010 CROWELL SUPERVISOR CEREAL, EVERARDO LUCIOH 300.01 PANIC DISORDER WITHOUT AGORAPHOBIA 11/19/2010 CROWELL SUPERVISOR CEREAL, EVERARDO KENNEDY 847.0 SPRAIN OF NECK 11/19/2010 LATOSHA CHRISTOPHER DILAN R 300.01 PANIC DISORDER WITHOUT AGORAPHOBIA 11/19/2010 DILAN REINA APRN R 847.0 SPRAIN OF NECK 11/19/2010 SOCRATES SUPERVISOR CEREAL, EVERARDO LUCIOH 300.01 PANIC DISORDER WITHOUT AGORAPHOBIA 11/19/2010 SOCRATES SUPERVISOR CEREAL, EVERARDO KENNEDY 847.0 SPRAIN OF NECK 11/19/2010 [...] 300.01 PANIC DISORDER WITHOUT AGORAPHOBIA 11/19/2010 LINDSEY BENOIT, KASI L 847.0 SPRAIN OF NECK 11/19/2010 CROWELL SUPERVISOR CEREAL, EVERARDO KENNEDY 300.01 PANIC DISORDER WITHOUT AGORAPHOBIA 11/19/2010 CROWELL SUPERVISOR CEREAL, EVERARDO LUCIOH 847.0 SPRAIN OF NECK 11/19/2010 CROWELL SUPERVISOR CEREAL, EVERARDO LUCIOH 300.01 PANIC DISORDER WITHOUT AGORAPHOBIA 11/19/2010 CROWELL SUPERVISOR CEREAL, EVERARDO LUCIOH 847.0 SPRAIN OF NECK 11/19/2010 CAROLINA BEAVER MD 300.01 PANIC DISORDER WITHOUT AGORAPHOBIA 11/19/2010 CAROLINA BEAVER MD 847.0 SPRAIN OF NECK 11/19/2010 LINDSEY BENOIT KASI L 300.01 PANIC DISORDER WITHOUT AGORAPHOBIA 11/19/2010 LINDSEY BENOIT, KASI L 847.0 SPRAIN OF NECK 11/19/2010 LINDSEY BENOIT, KASI L 300.01 PANIC DISORDER WITHOUT AGORAPHOBIA 11/19/2010 LINDSEY BENOIT, KASI L 847.0 SPRAIN OF NECK 11/19/2010 CROWELL SUPERVISOR CEREAL, EVERARDO BRENT 300.01 PANIC DISORDER WITHOUT AGORAPHOBIA 11/19/2010 CROWELL SUPERVISOR CEREAL, EVERARDO LUCIOH 847.0 SPRAIN OF NECK 11/19/2010 LINDSEY BENOIT, KASI L 300.01 PANIC DISORDER WITHOUT AGORAPHOBIA 11/19/2010 LINDSEY BENOIT, KASI L 847.0 SPRAIN OF NECK 11/19/2010 [...] MATTY 847.0 SPRAIN OF NECK 11/19/2010 SANDY SUPERVISOR CEREAL, MELISSA 300.01 PANIC DISORDER WITHOUT AGORAPHOBIA 11/19/2010 SANDY SUPERVISOR CEREAL, MELISSA 847.0 SPRAIN OF NECK 11/19/2010 VASILE [...] L 847.0 SPRAIN OF NECK 11/19/2010 SANDY SUPERVISOR CEREAL, MELISSA 300.01 PANIC DISORDER WITHOUT AGORAPHOBIA 11/19/2010 SANDY SUPERVISOR CEREAL, MELISSA 847.0 SPRAIN OF NECK 11/19/2010 CAROLINA BEAVER MD 300.01 PANIC DISORDER WITHOUT AGORAPHOBIA 11/19/2010 CAROLINA BEAVER MD 847.0 SPRAIN OF NECK 11/19/2010 SANDY SUPERVISOR CEREAL, MELISSA 300.01 PANIC DISORDER WITHOUT AGORAPHOBIA 11/19/2010 SANDY SUPERVISOR CEREAL, MELISSA 847.0 SPRAIN OF NECK 11/19/2010 CAROLINA BEAVER MD 300.01 PANIC DISORDER WITHOUT AGORAPHOBIA 11/19/2010 CAROLINA BEAVER MD 847.0 SPRAIN OF NECK 11/19/2010 MELISSA DELGADO APRN 300.01 PANIC DISORDER WITHOUT AGORAPHOBIA 11/19/2010 MELISSA DELGADO APRN 847.0 SPRAIN OF NECK 11/19/2010 VASILE PORTILLO PSYD L 300.01 PANIC DISORDER WITHOUT AGORAPHOBIA 11/19/2010 VASILE PORTILLO PSYD L 847.0 SPRAIN OF NECK 12/19/2010 CAROLINA BEAVER MD 535.50 Gastritis Unspec [...] EVERARDO CROWELL APRN 535.50 Gastritis Unspec 12/19/2010 VASILE PORTILLO PSYD L 535.50 Gastritis Unspec 12/19/2010 CAROLINA BEAVER MD 535.50 Gastritis Unspec 12/19/2010 VASILE PORTILLO PSYD L 535.50 Gastritis Unspec 12/19/2010 VASILE PORTILLO PSYD L 535.50 Gastritis Unspec 12/19/2010 CAROLINA BEAVER MD 535.50 Gastritis Unspec 12/19/2010 BALWINDER HOBSON, MATTY 535.50 Gastritis Unspec 12/19/2010 TED DELGADO APRNETTE 535.50 Gastritis Unspec 12/19/2010 VASILE PORTILLO PSYD L 535.50 Gastritis Unspec 12/19/2010 VASILE PORTILLO PSYD ANN L 535.50 Gastritis Unspec 12/19/2010 CAROLINA BEAVER MD 535.50 Gastritis Unspec 12/19/2010 VASILE PORTILLO PSYD L 535.50 Gastritis Unspec 12/19/2010 SANDY CHRISTOPHER, MELISSA 535.50 Gastritis Unspec 12/19/2010 CAROLINA BEAVER MD 535.50 Gastritis Unspec 12/19/2010 SANDY CHRISTOPHER, MELISSA 535.50 Gastritis Unspec 12/19/2010 CAROLINA BEAVER MD 535.50 Gastritis Unspec 12/19/2010 TED DELGADO APRNETTE 535.50 Gastritis Unspec 12/19/2010 VASILE PORTILLO PSYD L 535.50 Gastritis Unspec 12/25/2010 CAROLINA BEAVER [...] CHRISTOPHER EVERARDO BRENT 314.00 ADHD INATTENTIVE 12/25/2010 LUCIA REINA APRNIA R 296.32 MO DEPRESSIVE RECURRENT MODERATE 12/25/2010 JUAN REINA APRNRICIA R 300.02 AN GEN ANXIETY 12/25/2010 LATOSHA CHRISTOPHER DILAN R 314.00 ADHD INATTENTIVE 12/25/2010 EVERARDO CROWELL APRN [...] ANN L 314.00 ADHD INATTENTIVE 12/25/2010 LINDSEY BENOIT KASI [...] DPM, MATTY 314.00 ADHD INATTENTIVE 12/25/2010 SANDY SUPERVISOR CEREAL, MELISSA 296.32 MO DEPRESSIVE RECURRENT MODERATE 12/25/2010 SANDY SUPERVISOR CEREAL, MELISSA 300.02 AN GEN ANXIETY 12/25/2010 SANDY SUPERVISOR CEREAL, MELISSA 314.00 ADHD INATTENTIVE 12/25/2010 VASILE PORTILLO [...] ANN L 314.00 ADHD INATTENTIVE 12/25/2010 SANDY SUPERVISOR CEREAL, MELISSA 296.32 MO DEPRESSIVE RECURRENT MODERATE 12/25/2010 SANDY SUPERVISOR CEREAL, MELISSA 300.02 AN GEN ANXIETY 12/25/2010 SANDY SUPERVISOR CEREAL, MELISSA 314.00 ADHD INATTENTIVE 12/25/2010 CAROLINA EBAVER MD 296.32 MO DEPRESSIVE RECURRENT MODERATE 12/25/2010 CAROLINA BEAVER MD 300.02 AN GEN ANXIETY 12/25/2010 CAROLINA BEAVER MD 314.00 ADHD INATTENTIVE 12/25/2010 SANDY SUPERVISOR CEREAL, MELISSA 296.32 MO DEPRESSIVE RECURRENT MODERATE 12/25/2010 SANDY SUPERVISOR CEREAL, MELISSA 300.02 AN GEN ANXIETY 12/25/2010 SANDY SUPERVISOR CEREAL, MELISSA 314.00 ADHD INATTENTIVE 12/25/2010 CAROLINA BEAVER MD 296.32 MO DEPRESSIVE RECURRENT MODERATE 12/25/2010 CAROLINA BEAVER MD 300.02 AN GEN ANXIETY 12/25/2010 CAROLINA BEAVER MD 314.00 ADHD INATTENTIVE 12/25/2010 SANDY SUPERVISOR CEREAL, MELISSA 296.32 MO DEPRESSIVE RECURRENT MODERATE 12/25/2010 SANDY SUPERVISOR CEREAL, MELISSA 300.02 AN GEN ANXIETY 12/25/2010 SANDY SUPERVISOR CEREAL, MELISSA 314.00 ADHD INATTENTIVE 12/25/2010 VASILE PORTILLO PSYD L 296.32 MO DEPRESSIVE RECURRENT MODERATE 12/25/2010 VASILE PORTILLO PSYD L 300.02 AN GEN ANXIETY 12/25/2010 VASILE PORTILLO PSYD 314.00 ADHD INATTENTIVE 02/01/2011 CAROLINA BEAVER MD [...] 02/01/2011 DILAN REINA APRN 278.02 OVERWEIGHT 02/01/2011 LUCIA REINA APRNIA R 787.01 Nausea With Vomiting 02/01/2011 LUCIA REINA APRNIA R 790.29 OTHER ABNORMAL GLUCOSE 02/01/2011 LUCIA REINA APRNIA R 924.10 CONTUSION OF LOWER LEG 02/01/2011 EVERARDO CROWELL APRN 278.02 OVERWEIGHT 02/01/2011 EVERARDO CROWELL APRN 787.01 Nausea With Vomiting 02/01/2011 SOCRATES CHRISTOPHER, EVERARDO KENNEDY 790.29 OTHER ABNORMAL GLUCOSE 02/01/2011 SOCRATES CHRISTOPHER, EVERARDO KENNEDY 924.10 CONTUSION OF LOWER LEG 02/01/2011 CAROLINA BEAVER MD 278.02 OVERWEIGHT 02/01/2011 CAROLINA BEAVER MD 787.01 Nausea With Vomiting 02/01/2011 CAROLINA BEAVER MD 790.29 OTHER ABNORMAL GLUCOSE 02/01/2011 CAROLINA BEAVER MD 924.10 CONTUSION OF LOWER LEG 02/01/2011 VASILE POTRILLO PSYD ANN L 278.02 OVERWEIGHT 02/01/2011 VASILE [...] 924.10 CONTUSION OF LOWER LEG 02/01/2011 CROWELL SUPERVISOR CEREAL, EVERARDO KENNEDY 278.02 OVERWEIGHT 02/01/2011 CROWELL ASHWIN EVERARDO LUCIOH 787.01 Nausea With Vomiting 02/01/2011 CROWELL SUPERVISOR CEREAL, EVERARDO LUCIOH 790.29 OTHER ABNORMAL GLUCOSE 02/01/2011 CROWELL SUPERVISOR CEREAL, EVERARDO BRENT 924.10 CONTUSION OF LOWER LEG 02/01/2011 CROWELL SUPERVISOR CEREAL, EVERARDO LUCIOH 278.02 OVERWEIGHT 02/01/2011 CROWELL SUPERVISOR CEREAL, EVERARDO LUCIOH 787.01 NAUSEA WITH VOMITING 02/01/2011 CROWELL SUPERVISOR CEREAL, EVERARDO LUCIOH 790.29 OTHER ABNORMAL GLUCOSE 02/01/2011 CROWELL SUPERVISOR CEREAL, EVERARDO LUCIOH 924.10 CONTUSION OF LOWER LEG [...] EVERARDO CROWELL APRN 278.02 OVERWEIGHT 02/01/2011 CROWELL SUPERVISOR CEREALEVERARDO 787.01 Nausea With Vomiting 02/01/2011 EVERARDO CROWELL [...] DPM, MATTY 278.02 OVERWEIGHT 02/01/2011 BALWINDER DPM, MTATY 787.01 Nausea With Vomiting 02/01/2011 BALWINDER DPM, MATTY 790.29 OTHER ABNORMAL GLUCOSE 02/01/2011 BALWINDER DPM, MATTY 924.10 CONTUSION OF LOWER LEG 02/01/2011 SANDY SUPERVISOR CEREAL, MELISSA 278.02 OVERWEIGHT 02/01/2011 SANDY SUPERVISOR CEREAL, MELISSA 787.01 Nausea With Vomiting 02/01/2011 SANDY SUPERVISOR CEREAL, MELISSA 790.29 OTHER ABNORMAL GLUCOSE 02/01/2011 SANDY SUPERVISOR CEREAL MELISSA 924.10 CONTUSION OF LOWER LEG 02/01/2011 [...] 924.10 CONTUSION OF LOWER LEG 02/01/2011 SANDY SUPERVISOR CEREAL, MELISSA 278.02 OVERWEIGHT 02/01/2011 SANDY SUPERVISOR CEREAL, MELISSA 787.01 Nausea With Vomiting 02/01/2011 SANDY SUPERVISOR CEREAL, MELISSA 790.29 OTHER ABNORMAL GLUCOSE 02/01/2011 SANDY SUPERVISOR CEREAL, MELISSA 924.10 CONTUSION OF LOWER LEG 02/01/2011 CAROLINA BEAVER MD 278.02 OVERWEIGHT 02/01/2011 CAROLINA BEAVER MD 787.01 Nausea With Vomiting 02/01/2011 CAROLINA BEAVER MD 790.29 OTHER ABNORMAL GLUCOSE 02/01/2011 CAROLINA BEAVER MD 924.10 CONTUSION OF LOWER LEG 02/01/2011 SANDY SUPERVISOR CEREAL, MELISSA 278.02 OVERWEIGHT 02/01/2011 SANDY SUPERVISOR CEREAL, MELISSA 787.01 Nausea With Vomiting 02/01/2011 SANDY SUPERVISOR CEREAL, MELISSA 790.29 OTHER ABNORMAL GLUCOSE 02/01/2011 SANDY SUPERVISOR CEREAL, MELISSA 924.10 CONTUSION OF LOWER LEG 02/01/2011 CAROLINA BEAVER MD 278.02 OVERWEIGHT 02/01/2011 CAROLINA BEAVER MD 787.01 Nausea With Vomiting 02/01/2011 CAROLINA BEAVER MD 790.29 OTHER ABNORMAL GLUCOSE 02/01/2011 CAROLINA BEAVER MD 924.10 CONTUSION OF LOWER LEG 02/01/2011 SANDY SUPERVISOR CEREAL, MELISSA 278.02 OVERWEIGHT 02/01/2011 SANDY SUPERVISOR CEREAL, MELISSA 787.01 Nausea With Vomiting 02/01/2011 SANDY SUPERVISOR CEREAL, MELISSA 790.29 OTHER ABNORMAL GLUCOSE 02/01/2011 SANDY SUPERVISOR CEREAL, MELISSA 924.10 CONTUSION OF LOWER LEG 02/01/2011 [...] DPM, MATTY 314.01 ADHD COMBINED 05/27/2011 SANDY SUPERVISOR CEREAL, MELISSA 314.01 ADHD COMBINED 05/27/2011 LINDSEY BENOIT, KASI L 314.01 ADHD COMBINED 05/27/2011 LINDSEY BENOIT, KASI L 314.01 ADHD COMBINED 05/27/2011 SARANYA SWAN, CAROLINA 314.01 ADHD COMBINED 05/27/2011 LINDSEY BENOIT, KASI L 314.01 ADHD COMBINED 05/27/2011 SANDY SUPERVISOR CEREAL, MELISSA 314.01 ADHD COMBINED 05/27/2011 SARANYA SWAN, [place] 314.01 ADHD COMBINED 05/27/2011 SANDY SUPERVISOR CEREAL, MELISSA 314.01 ADHD COMBINED 05/27/2011 SARANYA SWAN, [place] 314.01 ADHD COMBINED 05/27/2011 SANDY SUPERVISOR CEREAL, MELISSA 314.01 ADHD COMBINED 05/27/2011 LINDSEY BENOIT, KASI L 314.01 ADHD COMBINED 06/25/2011 CAROLINA BEAVER MD 716.90 UNSPECIFIED ARTHROPATHY SITE UNSPECIFIED 06/25/2011 SOCRATES CHRISTOPHER, EVERARDO BRENT 716.90 UNSPECIFIED ARTHROPATHY SITE UNSPECIFIED 06/25/2011 716.90 [...] R 716.90 UNSPECIFIED ARTHROPATHY SITE UNSPECIFIED 06/25/2011 SOCRATES [...] ARTHROPATHY SITE UNSPECIFIED 06/25/2011 CAROLINA BEAVER MD 6.90 UNSPECIFIED ARTHROPATHY SITE UNSPECIFIED 06/25/2011 VASILE PORTILLO [...] 716.90 UNSPECIFIED ARTHROPATHY SITE UNSPECIFIED 06/25/2011 CROWELL APRN, EVERARDO KENNEDY 716.90 UNSPECIFIED ARTHROPATHY SITE UNSPECIFIED [...] 716.90 UNSPECIFIED ARTHROPATHY SITE UNSPECIFIED 06/25/2011 SANDY SUPERVISOR CEREAL, MELISSA 716.90 UNSPECIFIED ARTHROPATHY SITE UNSPECIFIED 06/25/2011 VASILE PORTILLO PSYD ANN L 716.90 UNSPECIFIED ARTHROPATHY SITE UNSPECIFIED 06/25/2011 VASILE PORTILLO PSYD ANN L 716.90 UNSPECIFIED ARTHROPATHY SITE UNSPECIFIED 06/25/2011 CAROLINA BEAVER MD 716.90 UNSPECIFIED ARTHROPATHY SITE UNSPECIFIED 06/25/2011 VASILE PORTILLO PSYD ANN L 716.90 UNSPECIFIED ARTHROPATHY SITE UNSPECIFIED 06/25/2011 SANDY SUPERVISOR CEREAL, MELISSA 716.90 UNSPECIFIED ARTHROPATHY SITE UNSPECIFIED 06/25/2011 CAROLINA BEAVER MD 716.90 UNSPECIFIED ARTHROPATHY SITE UNSPECIFIED 06/25/2011 SANDY SUPERVISOR CEREAL, MELISSA 716.90 UNSPECIFIED ARTHROPATHY SITE UNSPECIFIED 06/25/2011 CAROLINA BEAVER MD 716.90 UNSPECIFIED ARTHROPATHY SITE UNSPECIFIED 06/25/2011 SANDY SUPERVISOR CEREAL, MELISSA 716.90 UNSPECIFIED ARTHROPATHY SITE UNSPECIFIED 06/25/2011 [...] DPM 300.00 AN ANXIETY UNSPEC 07/13/2011 SANDY SUPERVISOR CEREAL, MELISSA 300.00 AN ANXIETY UNSPEC 07/13/2011 VASILE PORTILLO PSYD ANN L 300.00 AN ANXIETY UNSPEC 07/13/2011 VASILE PORTILLO PSYD ANN L 300.00 AN ANXIETY UNSPEC 07/13/2011 CAROLINA BEAVER MD 300.00 AN ANXIETY UNSPEC 07/13/2011 VASILE PORTILLO PSYD ANN L 300.00 AN ANXIETY UNSPEC 07/13/2011 SANDY SUPERVISOR CEREAL, MELISSA 300.00 AN ANXIETY UNSPEC 07/13/2011 CAROLINA BEAVER MD 300.00 AN ANXIETY UNSPEC 07/13/2011 TED DELGADO APRNETTE 300.00 AN ANXIETY UNSPEC 07/13/2011 CAROLINA BEAVER MD 300.00 AN ANXIETY UNSPEC 07/13/2011 SANDY CHRISTOPHER, MELISSA 300.00 AN ANXIETY UNSPEC 07/13/2011 VASILE [...] 380.10 Infective Otitis Externa Unspecified 09/24/2011 CROWELL SUPERVISOR CEREAL, EVERARDO LUCIOH 380.10 Infective Otitis Externa Unspecified 09/24/2011 CROWELL SUPERVISOR CEREAL EVERARDO BRENT 380.10 Infective Otitis Externa Unspecified 09/24/2011 CAROLINA BEAVER MD 380.10 Infective Otitis Externa Unspecified 09/24/2011 VASILE PORTILLO PSYD ANN L 380.10 Infective Otitis Externa Unspecified 09/24/2011 VASILE PORTILLO PSYD ANN L 380.10 Infective Otitis Externa Unspecified 09/24/2011 CROWELL SUPERVISOR CEREAL, EVERARDO BRENT 380.10 Infective Otitis Externa Unspecified [...] 380.10 Infective Otitis Externa Unspecified 09/24/2011 SANDY SUPERVISOR CEREAL, MELISSA 380.10 Infective Otitis Externa Unspecified 09/24/2011 [...] REINA APRNIA R 380.4 Impacted Cerumen 12/07/2011 LUCIA REINA APRNIA R 461.9 Sinusitis Acute 12/07/2011 CROWELL SUPERVISOR CEREAL, EVERARDO LUCIOH 380.4 Impacted Cerumen 12/07/2011 CROWELL SUPERVISOR CEREAL, EVERARDO BRENT 461.9 Sinusitis Acute 12/07/2011 CAROLINA BEAVER MD 380.4 Impacted Cerumen 12/07/2011 SARANYA SWAN, CAR[place] 461.9 Sinusitis Acute 12/07/2011 VASILE PORTILLO PSYD [...] ANN L 461.9 Sinusitis Acute 12/07/2011 CROWELL SUPERVISOR CEREAL, EVERARDO LUCIOH 380.4 Impacted Cerumen 12/07/2011 CROWELL SUPERVISOR CEREAL, EVERARDO BRENT 461.9 Sinusitis Acute 12/07/2011 CROWELL SUPERVISOR CEREAL, EVERARDO BRENT 380.4 Impacted Cerumen 12/07/2011 CROWELL SUPERVISOR CEREAL, EVERARDO BRENT 461.9 Sinusitis Acute 12/07/2011 CAROLINA BEAVER MD 380.4 Impacted Cerumen 12/07/2011 CAROLINA BEAVER MD 461.9 Sinusitis Acute 12/07/2011 VASILE PORTILLO PSYD ANN L 380.4 Impacted Cerumen 12/07/2011 VASILE PORTILLO PSYD ANN L 461.9 Sinusitis Acute 12/07/2011 VASILE PORTILLO PSYD ANN L 380.4 Impacted Cerumen 12/07/2011 VASILE PORTILLO PSYD ANN L 461.9 Sinusitis Acute 12/07/2011 CROWELL SUPERVISOR CEREAL, EVERARDO KENNEDY 380.4 Impacted Cerumen 12/07/2011 CROWELL SUPERVISOR CEREAL, EVERARDO KENNEDY 461.9 Sinusitis Acute 12/07/2011 VASILE [...] DPM, MATTY 461.9 Sinusitis Acute 12/07/2011 SANDY SUPERVISOR CEREAL, MELISSA 380.4 Impacted Cerumen 12/07/2011 SANDY SUPERVISOR CEREAL, MELISSA 461.9 Sinusitis Acute 12/07/2011 VASILE PORTILLO [...] PORTILLO PSYD 461.9 Sinusitis Acute 12/07/2011 SANDY SUPERVISOR CEREAL, MELISSA 380.4 Impacted Cerumen 12/07/2011 SANDY SUPERVISOR CEREAL, MELISSA 461.9 Sinusitis Acute 12/07/2011 CAROLINA BEAVER MD 380.4 Impacted Cerumen 12/07/2011 CAROLINA BEAVER MD 461.9 Sinusitis Acute 12/07/2011 SANDY SUPERVISOR CEREAL, MELISSA 380.4 Impacted Cerumen 12/07/2011 SANDY SUPERVISOR CEREAL, MELISSA 461.9 Sinusitis Acute 12/07/2011 CAROLINA BEAVER MD 380.4 Impacted Cerumen 12/07/2011 CAROLINA BEAVER MD 461.9 Sinusitis Acute 12/07/2011 SANDY SUPERVISOR CEREAL, MELISSA 380.4 Impacted Cerumen 12/07/2011 SANDY SUPERVISOR CEREAL, MELISSA 461.9 Sinusitis Acute 12/07/2011 VASILE PORTILLO [...] CHRISTOPHER EVERARDO BRENT 528.2 Oral Aphthae 07/01/2012 SOCRATES CHRISTOPHER EVERARDO BRENT 599.0 Urinary Tract Infection 07/01/2012 SOCRATES CHRISTOPHER [...] R 599.0 Urinary Tract Infection 07/01/2012 DILAN RIENA APRN R V58.69 LONG-TERM (CURRENT) USE OF [...] KASI L 599.0 Urinary Tract Infection 07/01/2012 MCCJUSTYNA BENOIT, KASI L V58.69 LONG-TERM (CURRENT) USE OF OTHER MEDICATIONS 07/01/2012 LINDSEY BENOIT, KASI L 528.2 Oral Aphthae 07/01/2012 MCCLEEARY PSBARRINGTON, KASI L 599.0 Urinary Tract Infection 07/01/2012 [...] OF OTHER MEDICATIONS 07/01/2012 CAROLINA BEAVER MD 52Ok.2 Oral Aphthae 07/01/2012 CAROLINA BEAVER MD 599.0 [...] (CURRENT) USE OF OTHER MEDICATIONS 07/01/2012 CROWELL SUPERVISOR CEREALEVERARDO Vinson 528.2 Oral Aphthae 07/01/2012 CROWELL SUPERVISOR CEREAL, EVERARDO KENNEDY 599.0 URINARY TRACT INFECTION 07/01/2012 CROWELL EVERARDO CHRISTOPHER V58.69 LONG-TERM (CURRENT) [...] (CURRENT) USE OF OTHER MEDICATIONS 07/01/2012 CROWELL SUPERVISOR CEREALEVERARDO 528.2 Oral Aphthae 07/01/2012 CROWELL SUPERVISOR CEREAL, EVERARDO KENNEDY 599.0 Urinary Tract Infection 07/01/2012 CROWELL SUPERVISOR CEREALEVERARDO Vinson V58.69 LONG-TERM (CURRENT) USE OF OTHER [...] (CURRENT) USE OF OTHER MEDICATIONS 07/01/2012 SANDY SUPERVISOR CEREAL MELISSA 528.2 Oral Aphthae 07/01/2012 SANDY SUPERVISOR CEREAL, MELISSA 599.0 Urinary Tract Infection 07/01/2012 SANDY SUPERVISOR CEREAL, MELISSA V58.69 LONG-TERM (CURRENT) USE OF OTHER [...] (CURRENT) USE OF OTHER MEDICATIONS 07/01/2012 SANDY SUPERVISOR CEREALMELISSA Vinson 528.2 Oral Aphthae 07/01/2012 MELISSA DELGADO APRN 599.0 Urinary Tract Infection 07/01/2012 SANDY CHRISTOPHER MELISSA V58.69 LONG-TERM (CURRENT) USE OF OTHER MEDICATIONS 07/01/2012 CAROL[place] BEAVER MD8.2 Oral Aphthae 07/01/2012 CAROLINA BEAVER MD 599.0 Urinary Tract Infection 07/01/2012 CAR[place] BEAVER MD V58.69 LONG-TERM (CURRENT) USE OF OTHER MEDICATIONS 07/01/2012 SANDY SUPERVISOR CEREALTED VinsonMELISSA 528.2 Oral Aphthae 07/01/2012 SANDY SUPERVISOR CEREALMELISSA Vinson 599.0 Urinary Tract Infection 07/01/2012 SANDY CHRISTOPHER MELISSA V58.69 LONG-TERM (CURRENT) USE OF OTHER MEDICATIONS 07/01/2012 CAR[place] BEAVER MD.2 Oral Aphthae 07/01/2012 [place] BEAVER MD 599.0 Urinary Tract Infection 07/01/2012 [place] BEAVER MD V58.69 LONG-TERM (CURRENT) USE OF OTHER MEDICATIONS 07/01/2012 SANDY SUPERVISOR CEREAL, MELISSA 528.2 Oral Aphthae 07/01/2012 SANDY SUPERVISOR CEREAL, MELISSA 599.0 Urinary Tract Infection 07/01/2012 MELISSA DELGADO [...] Dx (3 Yrs And Above, Im) 07/11/2012 EVERARDO CROWELL APRN V04.81 Flu Dx (3 Yrs And Above, Im) 07/11/2012 DILAN REINA APRN V04.81 Flu Dx (3 Yrs And Above, Im) 07/11/2012 EVERARDO CROWELL APRN V04.81 Flu Dx (3 Yrs And [...] Im) 07/11/2012 SOCRATES CHRISTOPHER EVERARDO BRENT V04.81 FLU DX (3 YRS AND [...] (3 Yrs And Above, Im) 07/11/2012 SANDY SUPERVISOR CEREAL, MELISSA V04.81 Flu Dx (3 Yrs And Above, Im) 07/11/2012 CAROLINA BEAVER MD V04.81 Flu Dx (3 Yrs And Above, Im) 07/11/2012 SANDY SUPERVISOR CEREAL, MELISSA V04.81 Flu Dx (3 Yrs And [...] Or Around Eye 07/06/2013 SOCRATES CHRISTOPHER EVERARDO BRENT 788.1 DYSURIA 08/07/2013 CAROLINA BEAVER MD 309.0 ADJUSTMENT DISORDER WITH DEPRESSED MOOD 08/07/2013 SOCRATES CHRISTOPHER EVERARDO BRENT 309.0 ADJUSTMENT DISORDER WITH DEPRESSED MOOD 08/07/2013 DILAN REINA APRN R 309.0 ADJUSTMENT DISORDER WITH DEPRESSED MOOD [...] ADJUSTMENT DISORDER WITH DEPRESSED MOOD 08/07/2013 BALWINDER VOGELPaola, MATTY 309.0 ADJUSTMENT DISORDER WITH DEPRESSED MOOD 08/07/2013 SANDY SUPERVISOR CEREAL, MELISSA 309.0 ADJUSTMENT DISORDER WITH DEPRESSED MOOD 08/07/2013 VASILE PORTILLO PSYD ANN L 309.0 ADJUSTMENT DISORDER WITH DEPRESSED MOOD 08/07/2013 VASILE PORTILLO PSYD ANN L 309.0 ADJUSTMENT DISORDER WITH DEPRESSED MOOD 08/07/2013 CAROLINA BEAVER MD 309.0 ADJUSTMENT DISORDER WITH DEPRESSED MOOD 08/07/2013 VASILE PORTILLO PSYD ANN L 309.0 ADJUSTMENT DISORDER WITH DEPRESSED MOOD 08/07/2013 SANDY SUPERVISOR CEREAL, MELISSA 309.0 ADJUSTMENT DISORDER WITH DEPRESSED MOOD 08/07/2013 CAROLINA BEAVER MD 309.0 ADJUSTMENT DISORDER WITH DEPRESSED MOOD 08/07/2013 SANDY SUPERVISOR CEREAL, MELISSA 309.0 ADJUSTMENT DISORDER WITH DEPRESSED MOOD 08/07/2013 CAROLINA BEAVER MD 309.0 ADJUSTMENT DISORDER WITH DEPRESSED MOOD 08/07/2013 SANDY SUPERVISOR CEREAL, MELISSA 309.0 ADJUSTMENT DISORDER WITH DEPRESSED MOOD [...] 389.00 CONDUCTIVE HEARING LOSS UNSPECIFIED 10/26/2013 BALWINDER DPM, MATTY 389.00 CONDUCTIVE HEARING LOSS UNSPECIFIED 10/26/2013 SANDY SUPERVISOR CEREAL, MELISSA 389.00 CONDUCTIVE HEARING LOSS UNSPECIFIED 10/26/2013 VASILE PORTILLO PSYD ANN L 389.00 CONDUCTIVE HEARING LOSS UNSPECIFIED 10/26/2013 VASILE PORTILLO PSYD ANN L 389.00 CONDUCTIVE HEARING LOSS UNSPECIFIED 10/26/2013 CAROLINA BEAVER MD 389.00 CONDUCTIVE HEARING LOSS UNSPECIFIED 10/26/2013 VASILE PORTILLO PSYD ANN L 389.00 CONDUCTIVE HEARING LOSS UNSPECIFIED 10/26/2013 SANDY SUPERVISOR CEREAL, MELISSA 389.00 CONDUCTIVE HEARING LOSS UNSPECIFIED 10/26/2013 CAROLINA BEAVER MD 389.00 CONDUCTIVE HEARING LOSS UNSPECIFIED 10/26/2013 SANDY SUPERVISOR CEREAL, MELISSA 389.00 CONDUCTIVE HEARING LOSS UNSPECIFIED 10/26/2013 CAROLINA BEAVER MD 389.00 CONDUCTIVE HEARING LOSS UNSPECIFIED 10/26/2013 SANDY SUPERVISOR CEREAL, MELISSA 389.00 CONDUCTIVE HEARING LOSS UNSPECIFIED 10/26/2013 [...] W/O PSYCHOTIC BEHAVIOR 01/23/2014 SOCRATES CHRISTOPHER EVERARDO LUCIOH 296.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/O PSYCHOTIC [...] RECURRENT SEVERE W/O PSYCHOTIC BEHAVIOR 01/23/2014 SANDY SUPERVISOR CEREAL, MELISSA 296.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/O [...] RECURRENT SEVERE W/O PSYCHOTIC BEHAVIOR 01/23/2014 SANDY SUPERVISOR CEREAL, MELISSA 296.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/O PSYCHOTIC BEHAVIOR 01/23/2014 CAROLINA BEAVER MD 296.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/O PSYCHOTIC BEHAVIOR 01/23/2014 SANDY SUPERVISOR CEREAL, MELISSA 296.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/O PSYCHOTIC BEHAVIOR 01/23/2014 CAROLINA BEAVER MD 296.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/O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
--- NOTE | 2017-07-27 19:10 | ED General ---
General Stated Complaint: FALL;HEAD INJ Source of Information: Patient Exam Limitations: No Limitations History of Present Illness Time Seen by Provider: 18:45 Initial Comments Here with family who reports that she hasn't fallen was found on the floor. The story is very confusing the patient is a very poor historian. She may have been seen at [facility] today but the story is not clear. Apparently she has had several episodes of falling and confusion. Arrives confused and needing assistance to get out of the truck and her family member. Patient is weak with confusing story. She denies any significant pain but does admit to falling. She is unsure of when that occurred. This is apparently living going on over the last couple of days. Timing/Duration: 2-3 Days, Changing Over Time, Getting Worse Severity: Moderate Associated Systoms: No Chest Pain, No Cough, No Fever/Chills, No Headaches, No Nausea/Vomiting, No Shortness of Air, Weakness Allergies and Home Medications Allergies Coded Allergies: Sulfa (Sulfonamide Antibiotics) (Verified Allergy, Unknown, 08/26/14) morphine (Verified Adverse Reaction, Mild, NAUSEA, 05/19/16) Home Medications Alprazolam 1 Mg Tablet, 1 MG PO BID PRN for ANXIETY, (Reported) Ascorbic Acid/Collagen Hydr 1 Each Capsule, 1 EACH PO DAILY, (Reported) Bupropion HCl 150 Mg Tab.er.24h, 300 MG PO DAILY, (Reported) take 2 (150mg) tabs Canagliflozin 100 Mg Tablet, 100 MG PO DAILY, (Reported) Dextroamphetamine/Amphetamine 20 Mg Tablet, 20 MG PO DAILY, (Reported) Escitalopram Oxalate 10 Mg Tablet, 10 MG PO DAILY@1200, (Reported) Glucosamine HCl/Chondr Bentley A Na 1 Each Tablet, 1 EACH PO BID, (Reported) Insulin Aspart 300 Units/3 Ml Solution, 10 UNITS SQ AC, (Reported) Insulin Detemir 100 Unit/1 Ml Insuln.pen, 38 UNITS SQ HS, (Reported) Lactobacillus Acidophilus 1 Each Capsule, 1 EACH PO DAILY, (Reported) Lisinopril 10 Mg Tablet, 10 MG PO DAILY, (Reported) Multivitamin 1 Each Tablet, 1 TAB PO DAILY, (Reported) Pantoprazole Sodium 40 Mg Tablet.dr, 40 MG PO DAILY, #90 Prescribed by: PATRICA LARSON on 01/26/17 1317 Vit C/E/Zn/Coppr/Lutein/Zeaxan 1 Each Capsule, 1 TAB PO BID, (Reported) Constitutional: see HPI, No chills, No fever EENTM: no symptoms reported Respiratory: no symptoms reported, No short of breath, No wheezing Cardiovascular: no symptoms reported, No chest pain, No edema Gastrointestinal: No abdominal pain, No nausea, No vomiting Genitourinary: No dysuria, No pain (Bonde As Directed K and a 88 7TIA the Day and a She's July 2016 of That She Is Just.) Musculoskeletal: no symptoms reported Skin: no symptoms reported All Other Systems Reviewed Negative Unless Noted: Yes Past Kbczuyb-Pdjcqm-Notjed Hx Patient Social History Alcohol Use: Denies Use Recreational Drug Use: No (Stability right.) Smoking Status: Current Everyday Smoker Type Used: Cigarettes Former Smoker, Quit: Feb 18, 2016 Recent Hopitalizations: No Immunizations Up To Date Tetanus Booster (TDap): Less than 5yrs PED Vaccines UTD: No Date of Pneumonia Vaccine: Aug 13, 2015 Date of Influenza Vaccine: Jul 31, 2016 Seasonal Allergies Seasonal Allergies: Yes Surgeries Surgeries: Abdominal, Section, Hysterectomy Respiratory History of Respiratory Disorde: No Cardiovascular History of Cardiac Disorders: Yes Cardiac Disorders: 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 Neurological History of Neurological Disord: No 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 System Hx 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 Disorders: No Sexually Transmitted Disease: No Genitourinary History of Genitourinary Disor: No Gastrointestinal History of Gastrointestinal Di: Yes Gastrointestinal Disorders: Gastroesophageal Reflux Musculoskeletal History of Musculoskeletal Dis: Yes Musculoskeletal Disorders: Arthritis Endocrine History of Endocrine Disorders: Yes Endocrine Disorders: Diabetes, Insulin dep HEENT History of HEENT Disorders: Yes HEENT Disorders: Cataract Cancer History of Cancer: No Psychosocial History of Psychiatric Problem: Yes Behavioral Health Disorders: Anxiety Integumentary Skin/Integumentary Disorders: Psoriasis Reviewed Nursing Assessment Reviewed/Agree w Nursing PMH: Yes Family Medical History Significant Family History: No Pertinent Family Hx Family Medial History: AIDS Alcoholism Arthritis Asthma Cataracts Coronary thrombosis Diabetes mellitus Drug abuse Glaucoma Psychosocial problem Respiratory disorder No Family History of: [place]'s disease Alzheimer's disease Aphasia Cancer of mouth Cardiovascular disease Colon cancer Completed stroke Congenital disease Congenital heart disease Cystic fibrosis Deafness or hearing loss Dementia Dysphasia Fibrocystic disease of breast Gastroenteritis Headache disorder Hypercholesterolemia 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 Infertility Kidney disease Myocardial infarction Neoplasm Not obtainable due to adoption Osteoporosis Parkinson's disease Prostate cancer Seizure disorder Severe allergy Thyroid disease Tuberculosis Visual disorder Physical Exam-Suspected Sepsis Physical Exam Vital Signs Vital Sign - Last 12Hours 07/27/17 18:45 Temp 96.9 Pulse 95 Resp 21 B/P (MAP) 106/64 Pulse Ox 95 O2 Delivery Room Air Capillary Refill : General Appearance: Mild Distress, Other (ill appearing her) HEENT: PERRL/EOMI, Pharynx Normal Neck: Non Tender, Supple Respiratory: Lungs Clear, Normal Breath Sounds Cardiovascular: Regular Rate, Rhythm, No Murmur Gastrointestinal: Non Tender, Soft Back: Normal Inspection, No CVA Tenderness, No Vertebral Tenderness Extremity: Pedal Edema (bilateral lower extremities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: tenter feeder II-XII Norm as Tested, Other (awake and confused) Skin: normal color, cool, No rash, No ulcerations Focused Exam Evaluation Lactate Level Laboratory Tests 07/27/17 19:05: Lactic Acid Level 4.08*H 07/27/17 21:05: Lactic Acid Level 1.51 Lactic Acid Level Laboratory Tests Test 07/27/17 19:05 07/27/17 21:05 Lactic Acid Level 4.08 MMOL/L (0.50-2.00) *H 1.51 MMOL/L (0.50-2.00) Lumen: triple Central Line Procedure: betadine prep, sterile drapes applied, sterile dressing applied Position: internal jugular (R) Anesthesia: Lidocaine Volume Anesthetic (ccs): 3 Complications: none Post Position: sutured, good blood return, position confirmed w/ CXR Progress Placed via ultrasound guidance due to persistent hypotension and the requirement potentially for blood pressure agents. Consents signed and on chart. One stick. Tolerated procedure well. occasions. Verified by chest x- ray after. Progress/Results/Core Measures Suspected Sepsis SIRS Temperature: Pulse: Respiratory Rate: Laboratory Tests 07/27/17 19:05: White Blood Count 11.2H Blood Pressure / Mean: Laboratory Tests 07/27/17 19:05: Lactic Acid Level 4.08*H 07/27/17 21:05: Lactic Acid Level 1.51 Laboratory Tests 07/27/17 19:05: Creatinine 1.95H, INR Comment 1.0, Platelet Count 235, Total Bilirubin 0.4 Results/Orders Lab Results Laboratory Tests Test 07/27/17 18:50 07/27/17 19:05 07/27/17 21:05 Range/Units Glucometer 243 H 70-110 MG/DL White Blood Count 11.2 H 4.3-11.0 10^3/uL Red Blood Count 5.03 4.35-5.85 10^6/uL Hemoglobin 15.1 11.5-16.0 G/DL Hematocrit 44 35-52 % Mean Corpuscular Volume 87 80-99 FL Mean Corpuscular Hemoglobin 30 25-34 PG Mean Corpuscular Hemoglobin Concent 35 32-36 G/DL Red Cell Distribution Width 13.6 10.0-14.5 % Platelet Count 235 130-400 10^3/uL Mean Platelet Volume 9.7 7.4-10.4 FL Neutrophils (%) (Auto) 82 H 42-75 % Lymphocytes (%) (Auto) 11 L 12-44 % Monocytes (%) (Auto) 6 0-12 % Eosinophils (%) (Auto) 1 0-10 % Basophils (%) (Auto) 0 0-10 % Neutrophils # (Auto) 9.2 H 1.8-7.8 X 10^3 Lymphocytes # (Auto) 1.2 1.0-4.0 X 10^3 Monocytes # (Auto) 0.7 0.0-1.0 X 10^3 Eosinophils # (Auto) 0.1 0.0-0.3 10^3/uL Basophils # (Auto) 0.0 0.0-0.1 10^3/uL Prothrombin Time 12.9 12.2-14.7 SEC INR Comment 1.0 0.8-1.4 Activated Partial Thromboplast Time 24 24-35 SEC Urine Color DAISY H Urine Clarity CLEAR Urine pH 5 5-9 Urine Specific [place] 1.015 L 1.016-1.022 Urine Protein 1+ H NEGATIVE Urine Glucose (UA) 4+ H NEGATIVE Urine Ketones NEGATIVE NEGATIVE Urine Nitrite POSITIVE H NEGATIVE Urine Bilirubin NEGATIVE NEGATIVE Urine Urobilinogen NORMAL NORMAL MG/DL Urine Leukocyte Esterase NEGATIVE NEGATIVE Urine RBC (Auto) NEGATIVE NEGATIVE Urine RBC NONE /HPF Urine WBC NONE /HPF Urine Squamous Epithelial Cells 0-2 /HPF Urine Crystals NONE /LPF Urine Bacteria TRACE /HPF Urine Casts NONE /LPF Urine Mucus NEGATIVE /LPF Urine Culture Indicated YES Sodium Level 132 L 135-145 MMOL/L Potassium Level 3.9 3.6-5.0 MMOL/L Chloride Level 99 98-107 MMOL/L Carbon Dioxide Level 20 L 21-32 MMOL/L Anion Gap 13 5-14 MMOL/L Blood Urea Nitrogen 33 H 7-18 MG/DL Creatinine 1.95 H 0.60-1.30 MG/DL Estimat Glomerular Filtration Rate 26 BUN/Creatinine Ratio 17 Glucose Level 244 H 70-105 MG/DL Lactic Acid Level 4.08 *H 1.51 0.50-2.00 MMOL/L Calcium Level 9.2 8.5-10.1 MG/DL Total Bilirubin 0.4 0.1-1.0 MG/DL Aspartate Amino Transf (AST/SGOT) 27 5-34 U/L Alanine Aminotransferase (ALT/SGPT) 18 0-55 U/L Alkaline Phosphatase 143 H 40-136 U/L Troponin I < 0.30 <0.30 NG/ML Total Protein 7.0 6.4-8.2 GM/DL Albumin 3.9 3.2-4.5 GM/DL My Orders Orders - PAUL LIRA MD Cbc With Automated Diff (07/27/17 18:58) Comprehensive Metabolic Panel (07/27/17 18:58) Lactic Acid Analyzer (07/27/17 18:58) Blood Culture (07/27/17 18:58) Sputum Culture (07/27/17 18:58) Ua Culture If Indicated (07/27/17 18:58) Protime With Inr (07/27/17 18:58) Partial Thromboplastin Time (07/27/17 18:58) Chest 1 View, Ap/Pa Only (07/27/17 18:58) O2 (07/27/17 18:58) Saline Lock/Iv-Start (07/27/17 18:58) Saline Lock/Iv-Start (07/27/17 18:58) Ekg Tracing (07/27/17 18:58) Troponin I (07/27/17 18:58) Vital Signs Adult Sepsis Patie Q1HR (07/27/17 18:58) Remove Rings In Anticipation O (07/27/17 18:58) Ct Head Wo (07/27/17 18:58) Ns Iv 1000 Ml (Sodium Chloride 0.9%) (07/27/17 18:58) Catheter(Urinary) Insert & Ass 03,15 (07/27/17 18:59) Ns Iv 1000 Ml (Sodium Chloride 0.9%) (07/27/17 19:30) Urine Culture (07/27/17 19:05) Accucheck Stat ONCE (07/27/17 19:55) Ceftriaxone Injection (Rocephin Injectio (07/27/17 20:30) Chest 1 View, Ap/Pa Only (07/27/17 21:01) Medications Given in ED Current Medications Medications Dose Ordered Sig/Minal Route Start Time Stop Time Status Last Admin Dose Admin Ceftriaxone Sodium 1000 mg/ Sodium Chloride 50 ml @ 100 mls/hr ONCE ONCE IV 07/27/17 20:30 07/27/17 20:59 DC 07/27/17 21:00 100 MLS/HR Sodium Chloride 3,000 ml @ 1,500 mls/hr PRN PRN IV 07/27/17 19:30 07/27/17 19:34 1,500 MLS/HR Vital Signs/I&O Vital Sign - Last 12Hours 07/27/17 18:45 Temp 96.9 Pulse 95 Resp 21 B/P (MAP) 106/64 Pulse Ox 95 O2 Delivery Room Air Capillary Refill : Progress Note : Progress Note Seen and evaluated on arrival. Patient had to be assisted from car onto a cot and brought directly to her room. Challenging exam due to confused history. Essentially workup will follow along sepsis and/or stroke. Last known well time appears to be 1 week ago. The ex- arrived and reports that she's been stumbling and confused over the last week. Patient is not a candidate for TPA due to unknown last known well time and certainly greater than 3 hours. Stroke scale is 1 and that is only for confusion. Patient's blood pressure is labile and she is hypotensive. Initiated normal saline at 30 mL/kg IV due to to concerns of about possibility of sepsis. Ex- reports that she had vomiting and diarrheal illness 3 days ago and was unsure when that cleared. She is diabetic. She reports taking her insulin today but being unable to eat. Fingerstick blood sugar was in the mid 200s. Labs, chest x-ray, EKG, blood cultures, UA, Hopper catheter and CT head ordered. Monitor patient. Blood pressure remains but improving with fluids. Central line placed due to concerns for possible need for pressor agents. I did discuss the case with Dr. Awad at 2028. She accepts patient for admission, inpatient status to the ICU. 2054: Central line placed via ultrasound guidance due to persistent lower blood pressures although improving. 2145: Pending ICU placement awaiting staffing. Current blood pressure 112/97 with heart rate of 83. I attest a focused exam at this time. Diagnostic Imaging Diagonstic Imaging: CT Plain Films/CT/US/NM/MRI: head Comments VIA [facility]. [place], [place] NAME: JANEEN [facility] REC#: [id number] PT STATUS: REG ER : 1955 PHYSICIAN: PAUL LIRA MD ADMIT DATE: 07/27/17/ER Draft Date of Exam:07/27/17 CT HEAD WO PROCEDURE: CT head without contrast. TECHNIQUE: Multiple contiguous axial images were obtained through the brain without the use of intravenous contrast. INDICATION: Confusion. COMPARISON: 08/26/2014. FINDINGS: No acute intracranial hemorrhage, mass effect or edema is seen. The cedeno-white junction is preserved and the ventricles appear normal. There are a few scattered areas of hypodensity in the periventricular white matter which are nonspecific but likely related to chronic microvascular ischemic change. No acute focal lesion is suspected. Paranasal sinuses appear clear. There is some opacification of the right mastoid air cells. IMPRESSION: No evidence of an acute intracranial abnormality. Incidental right mastoiditis is noted. Dictated on workstation # [id number] Dict: 07/27/171954 Trans: 07/27/172002 [id number] Interpreted by: ARUN PATINO DO Electronically signed by: Diagonstic Imaging: Xray Plain Films/CT/US/NM/MRI: chest Comments NAME: JANEEN [facility] REC#: [id number] PT STATUS: REG ER : 1955 PHYSICIAN: PAUL LIRA MD ADMIT DATE: 07/27/17/ER Signed Date of Exam: 07/27/17 CHEST 1 VIEW, AP/PA ONLY EXAMINATION: Chest radiograph, portable AP view. DATE: July 27, 2017 at 1940 hours. INDICATION: 62-year-old female, fall. COMPARISON: May 13, 2016. FINDINGS: Stable overall appearance of the cardiomediastinal silhouette. There is no identified pneumothorax. There is no large pleural effusion. Lung volumes are somewhat low with associated central bronchovascular crowding. There is no identified focal airspace consolidation. There are left upper quadrant surgical clips. There is no visualized significantly displaced rib fracture. IMPRESSION: Low lung volumes without identified acute cardiopulmonary abnormality. Dictated by: Dictated on workstation # [id number] Dict: 07/27/171954 Trans: 07/27/172005 Interpreted by: PEPPER LOONEY MD Electronically signed by: PEPPER LOONEY MD 07/27/172005 Diagonstic Imaging: Xray Plain Films/CT/US/NM/MRI: chest Comments Central line in good position. No obvious pneumothorax. Reviewed: Reviewed by Me Departure Communication (Admissions) Time/Spoke to Admitting Phy: 20:28 Impression Impression: Primary Impression: Septic shock Disposition: ADMITTED INPATIENT Condition: Critical Admissions Decision to Admit Reason: Admit from ER (General) Decision to Admit/Date: Jul 27, 2017 Time/Decision to Admit Time: 21:49 Departure-Patient Inst. Referrals: REJI ROY MD (PCP/Family) Primary Care Physician PAUL LIRA MD Jul 27, 2017 19:10
[2017-07-27 19:19] LABS: BASOPHILS % (AUTO) 0 % (0-10); BILIRUBIN,URINE NEGATIVE (NEGATIVE); EOSINOPHILS # (AUTO) 0.1 10^3/uL (0.0-0.3); EOSINOPHILS % (AUTO) 1 % (0-10); KETONES,URINE NEGATIVE (NEGATIVE); LEUKOCYTE ESTERASE ,URINE NEGATIVE (NEGATIVE); LYMPHOCYTES # (AUTO) 1.2 X 10^3 (1.0-4.0); LYMPHOCYTES % (AUTO) 11 % (12-44); MEAN CORPUSCULAR HEMOGLOBIN 30 PG (25-34); MEAN CORPUSCULAR HGB CONC 35 G/DL (32-36); MEAN CORPUSCULAR VOLUME 87 FL (80-99); MEAN PLATELET VOLUME 9.7 FL (7.4-10.4); MONOCYTES # (AUTO) 0.7 X 10^3 (0.0-1.0); MONOCYTES % (AUTO) 6 % (0-12); NEUTROPHILS # (AUTO) 9.2 X 10^3 (1.8-7.8); NEUTROPHILS % (AUTO) 82 % (42-75); NITRITE,URINE POSITIVE (NEGATIVE); PH,URINE 5 (5-9); PLATELET COUNT 235 10^3/uL (130-400); PROTEIN,URINE 1+ (NEGATIVE); RED BLOOD COUNT 5.03 10^6/uL (4.35-5.85); RED CELL DISTRIBUTION WIDTH 13.6 % (10.0-14.5); UROBILINOGEN,URINE NORMAL (NORMAL); WHITE BLOOD COUNT 11.2 10^3/uL (4.3-11.0)
[2017-07-27 19:28] LABS: PROTHROMBIN TIME PATIENT 12.9 SEC (12.2-14.7)
[2017-07-27 19:29] LABS: SQUAMOUS EPITHELIAL CELL,UR 0-2 /HPF
[2017-07-27] MEDS ORDERED: NS IV 1000 ML 3,000 ML IV PRN (19:30)
[2017-07-27 19:37] LABS: ALANINE AMINOTRANSFERASE 18 U/L (0-55); ALBUMIN 3.9 GM/DL (3.2-4.5); ANION GAP 13 MMOL/L (5-14); ASPARTATE AMINO TRANSFERASE 27 U/L (5-34); BILIRUBIN,TOTAL 0.4 MG/DL (0.1-1.0); BLOOD UREA NITROGEN 33 MG/DL (7-18); CALCIUM 9.2 MG/DL (8.5-10.1); CARBON DIOXIDE 20 MMOL/L (21-32); CHLORIDE 99 MMOL/L (98-107); GLUCOSE 244 MG/DL (70-105); POTASSIUM 3.9 MMOL/L (3.6-5.0); SODIUM 132 MMOL/L (135-145)
[2017-07-27 19:43] LABS: TROPONIN I < 0.30 NG/ML (<0.30)
[2017-07-27 19:57] LABS: BUN/CREATININE RATIO 17; CREATININE SERUM 1.95 MG/DL (0.60-1.30); GFR ESTIMATED 26
--- NOTE | 2017-07-27 20:01 | Diagnostic Imaging Report ---
EXAMINATION: Chest radiograph, portable AP view. DATE: July 27, 2017 at 1940 hours. INDICATION: 62-year-old female, fall. COMPARISON: May 13, 2016. FINDINGS: Stable overall appearance of the cardiomediastinal silhouette. There is no identified pneumothorax. There is no large pleural effusion. Lung volumes are somewhat low with associated central bronchovascular crowding. There is no identified focal airspace consolidation. There are left upper quadrant surgical clips. There is no visualized significantly displaced rib fracture. IMPRESSION: Low lung volumes without identified acute cardiopulmonary abnormality. Dictated by: Dictated on workstation # [id number]
--- NOTE | 2017-07-27 20:04 | Diagnostic Imaging Report ---
PROCEDURE: CT head without contrast. TECHNIQUE: Multiple contiguous axial images were obtained through the brain without the use of intravenous contrast. INDICATION: Confusion. COMPARISON: 08/26/2014. FINDINGS: No acute intracranial hemorrhage, mass effect or edema is seen. The cedeno-white junction is preserved and the ventricles appear normal. There are a few scattered areas of hypodensity in the periventricular white matter which are nonspecific but likely related to chronic microvascular ischemic change. No acute focal lesion is suspected. Paranasal sinuses appear clear. There is some opacification of the right mastoid air cells. IMPRESSION: No evidence of an acute intracranial abnormality. Incidental right mastoiditis is noted. Dictated by: Dictated on workstation # [id number]
[2017-07-27] MEDS ORDERED: cefTRIAXone INJECTION 1,000 MG in NS (IVPB) 50 ML IV ONE (20:30)
--- NOTE | 2017-07-27 21:51 | Diagnostic Imaging Report ---
EXAMINATION: Chest radiograph, portable AP view. DATE: July 27, 2017 at 2105 hours. INDICATION: 62-year-old female, central line placement. COMPARISON: July 27, 2017 at 1940 hrs. FINDINGS: The right internal jugular central venous line overlies the mid SVC. Stable overall appearance of the cardiomediastinal silhouette. There is no identified pneumothorax. There is no identified large pleural effusion. There are very low lung volumes with associated central bronchovascular crowding. There are technical limitations of the exam relating to exposure and patient body habitus. There is no definite interval focal airspace consolidation. IMPRESSION: 1. Newly placed right internal jugular central venous line overlying the mid SVC. 2. Very low lung volumes without definite interval acute cardiopulmonary abnormality. Dictated by: Dictated on workstation # [id number]
--- OUTSIDE RECORDS SUMMARY | 2017-07-27 22:29 | XMS REPORT | Continuity of Care Document ---
Author Author [facility] Address Unknown Phone Unavailable Allergies Active Description Code Type Severity Reaction Onset Reported/Identified Relationship to Patient Clinical Status Yes Byetta Prefilled Pen Drug Allergy 10/09/2010 Yes methylphenidate 20 mg tablet Drug Allergy 09/08/2012 Yes methylphenidate 20 mg tablet Drug Allergy N/A N/A 09/08/2012 Yes Sulfa (Sulfonamide Antibiotics) [id number] Drug Allergy Unknown N/A 08/26/2014 Yes morphine [id number] Drug Allergy Unknown NAUSEA 05/13/2016 Yes morphine [id number] Drug Allergy Mild NAUSEA 05/19/2016 Medications Problems [...] KENNEDY 250.02 DIABETES II UNCONTROLLED 10/09/2010 CROWELL CIRCUIT RECORDER, EVERARDO KENNEDY 782.3 EDEMA 10/09/2010 LATOSHA CHRISTOPHER, [...] BENOIT, KASI L 782.3 EDEMA 10/09/2010 CROWELL CIRCUIT RECORDER, EVERARDO KENNEDY 250.02 DIABETES II UNCONTROLLED 10/09/2010 CROWELL CIRCUIT RECORDER, EVERARDO KENNEDY 782.3 EDEMA 10/09/2010 LINDSEY BENOIT, [...] BALWINDER DPM, MATTY 782.3 EDEMA 10/09/2010 SANDY CIRCUIT RECORDER, MELISSA 250.02 DIABETES II UNCONTROLLED 10/09/2010 SANDY CIRCUIT RECORDER, MELISSA 782.3 EDEMA 10/09/2010 LINDSEY BENOIT, KASI [...] PORTILLO PSYD L 782.3 EDEMA 10/09/2010 SANDY CIRCUIT RECORDER, MELISSA 250.02 DIABETES II UNCONTROLLED 10/09/2010 SANDY CIRCUIT RECORDER, MELISSA 782.3 EDEMA 10/09/2010 [place] BEAVER MD 250.02 DIABETES II UNCONTROLLED 10/09/2010 [place] BEAVER MD 782.3 EDEMA 10/09/2010 SANDY CIRCUIT RECORDER, MELISSA 250.02 DIABETES II UNCONTROLLED 10/09/2010 SANDY CIRCUIT RECORDER, MELISSA 782.3 EDEMA 10/09/2010 [place] BEAVER MD 250.02 DIABETES II UNCONTROLLED 10/09/2010 [place] BEAVER MD 782.3 EDEMA 10/09/2010 SANDY CIRCUIT RECORDER, MELISSA 250.02 DIABETES II UNCONTROLLED 10/09/2010 SANDY CIRCUIT RECORDER, MELISSA 782.3 EDEMA 10/09/2010 VASILE PORTILLO PSYD [...] MD 847.0 SPRAIN OF NECK 11/19/2010 [place] BEVAER MD 300.01 PANIC DISORDER WITHOUT AGORAPHOBIA 11/19/2010 [place] BEAVER MD 847.0 SPRAIN OF NECK 11/19/2010 300.01 PANIC DISORDER WITHOUT AGORAPHOBIA 11/19/2010 847.0 SPRAIN OF NECK 11/19/2010 300.01 PANIC DISORDER WITHOUT AGORAPHOBIA 11/19/2010 847.0 SPRAIN OF NECK 11/19/2010 SOCRATES CIRCUIT RECORDER, EVERARDO LUCIOH 300.01 PANIC DISORDER WITHOUT AGORAPHOBIA 11/19/2010 SOCRATES CIRCUIT RECORDEREVERARDO 847.0 SPRAIN OF NECK 11/19/2010 [place] BEAVER MD 300.01 PANIC DISORDER WITHOUT AGORAPHOBIA 11/19/2010 [place] BEAVER MD 847.0 SPRAIN OF NECK 11/19/2010 CROWELL CIRCUIT RECORDER, EVERARDO LUCIOH 300.01 PANIC DISORDER WITHOUT AGORAPHOBIA 11/19/2010 CROWELL CIRCUIT RECORDER, EVERARDO KENNEDY 847.0 SPRAIN OF NECK 11/19/2010 LATOSHA CHRISTOPHER DILAN R 300.01 PANIC DISORDER WITHOUT AGORAPHOBIA 11/19/2010 DILAN REINA APRN R 847.0 SPRAIN OF NECK 11/19/2010 SOCRATES CIRCUIT RECORDER, EVERARDO LUCIOH 300.01 PANIC DISORDER WITHOUT AGORAPHOBIA 11/19/2010 SOCRATES CIRCUIT RECORDER, EVERARDO KENNEDY 847.0 SPRAIN OF NECK 11/19/2010 [...] L 847.0 SPRAIN OF NECK 11/19/2010 CROWELL CIRCUIT RECORDER, EVERARDO KENNEDY 300.01 PANIC DISORDER WITHOUT AGORAPHOBIA 11/19/2010 CROWELL CIRCUIT RECORDER, EVERARDO LUCIOH 847.0 SPRAIN OF NECK 11/19/2010 CROWELL CIRCUIT RECORDER, EVERARDO LUCIOH 300.01 PANIC DISORDER WITHOUT AGORAPHOBIA 11/19/2010 CROWELL CIRCUIT RECORDER, EVERARDO LUCIOH 847.0 SPRAIN OF NECK 11/19/2010 CAR[place] BEAVER MD 300.01 PANIC DISORDER WITHOUT AGORAPHOBIA 11/19/2010 [place] BEAVER MD 847.0 SPRAIN OF NECK 11/19/2010 LINDSEY BENOIT KASI L 300.01 PANIC DISORDER WITHOUT AGORAPHOBIA 11/19/2010 LINDSEY BENOIT, KASI L 847.0 SPRAIN OF NECK 11/19/2010 LINDSEY BENOIT, KASI L 300.01 PANIC DISORDER WITHOUT AGORAPHOBIA 11/19/2010 LINDSEY BENOIT, KASI L 847.0 SPRAIN OF NECK 11/19/2010 CROWELL CIRCUIT RECORDER, EVERARDO BRENT 300.01 PANIC DISORDER WITHOUT AGORAPHOBIA 11/19/2010 CROWELL CIRCUIT RECORDER, EVERARDO LUCIOH 847.0 SPRAIN OF NECK 11/19/2010 [...] MATTY 847.0 SPRAIN OF NECK 11/19/2010 SANDY CIRCUIT RECORDER, MELISSA 300.01 PANIC DISORDER WITHOUT AGORAPHOBIA 11/19/2010 SANDY CIRCUIT RECORDER, MELISSA 847.0 SPRAIN OF NECK 11/19/2010 VASILE [...] L 847.0 SPRAIN OF NECK 11/19/2010 SANDY CIRCUIT RECORDER, MELISSA 300.01 PANIC DISORDER WITHOUT AGORAPHOBIA 11/19/2010 SANDY CIRCUIT RECORDER, MELISSA 847.0 SPRAIN OF NECK 11/19/2010 CAR[place] BEAVER MD 300.01 PANIC DISORDER WITHOUT AGORAPHOBIA 11/19/2010 [place] BEAVER MD 847.0 SPRAIN OF NECK 11/19/2010 SANDY CIRCUIT RECORDER, MELISSA 300.01 PANIC DISORDER WITHOUT AGORAPHOBIA 11/19/2010 SANDY CIRCUIT RECORDER, MELISSA 847.0 SPRAIN OF NECK 11/19/2010 [place]INA [...] ANN L 314.00 ADHD INATTENTIVE 12/25/2010 [place] BEVAER MD 296.32 MO DEPRESSIVE RECURRENT MODERATE 12/25/2010 [...] DPM, MATTY 314.00 ADHD INATTENTIVE 12/25/2010 SANDY CIRCUIT RECORDER, MELISSA 296.32 MO DEPRESSIVE RECURRENT MODERATE 12/25/2010 SANDY CIRCUIT RECORDER, MELISSA 300.02 AN GEN ANXIETY 12/25/2010 SANDY CIRCUIT RECORDER, MELISSA 314.00 ADHD INATTENTIVE 12/25/2010 VASILE PORTILLO PSYD ANN L 296.32 MO DEPRESSIVE RECURRENT MODERATE 12/25/2010 VASIEL PORTILLO PSYD L 300.02 AN GEN ANXIETY 12/25/2010 VASILE PORTILLO PSYD L 314.00 ADHD INATTENTIVE 12/25/2010 VASILE PORTILLO PSYD ANN L 296.32 MO DEPRESSIVE RECURRENT MODERATE 12/25/2010 VASILE PORTILLO PSYD L 300.02 AN GEN ANXIETY 12/25/2010 VASILE PORTILLO PSYD ANN L 314.00 ADHD INATTENTIVE 12/25/2010 CAROL[place] BEAVER MD 296.32 MO DEPRESSIVE RECURRENT MODERATE 12/25/2010 CRAOLINA BEAVER MD 300.02 AN GEN ANXIETY 12/25/2010 [place] BEAVER MD 314.00 ADHD INATTENTIVE 12/25/2010 VASILE PORTILLO PSYD ANN L 296.32 MO DEPRESSIVE RECURRENT MODERATE 12/25/2010 VASILE PORTILLO PSYD ANN L 300.02 AN GEN ANXIETY 12/25/2010 VASILE PORTILLO PSYD ANN L 314.00 ADHD INATTENTIVE 12/25/2010 SANDY CIRCUIT RECORDER, MELISSA 296.32 MO DEPRESSIVE RECURRENT MODERATE 12/25/2010 SANDY CIRCUIT RECORDER, MELISSA 300.02 AN GEN ANXIETY 12/25/2010 SANDY CIRCUIT RECORDER, MELISSA 314.00 ADHD INATTENTIVE 12/25/2010 [place] BEAVER MD 296.32 MO DEPRESSIVE RECURRENT MODERATE 12/25/2010 [place] BEAVER MD 300.02 AN GEN ANXIETY 12/25/2010 [place] BEAVER MD 314.00 ADHD INATTENTIVE 12/25/2010 SANDY CIRCUIT RECORDER, MELISSA 296.32 MO DEPRESSIVE RECURRENT MODERATE 12/25/2010 SANDY CIRCUIT RECORDER, MELISSA 300.02 AN GEN ANXIETY 12/25/2010 SANDY CIRCUIT RECORDER, MELISSA 314.00 ADHD INATTENTIVE 12/25/2010 [place] BEVAER MD 296.32 MO DEPRESSIVE RECURRENT MODERATE 12/25/2010 CAR[place] BEAVER MD 300.02 AN GEN ANXIETY 12/25/2010 CAR[place] BEAVER MD 314.00 ADHD INATTENTIVE 12/25/2010 SANDY CIRCUIT RECORDER, MELISSA 296.32 MO DEPRESSIVE RECURRENT MODERATE 12/25/2010 SANDY CIRCUIT RECORDER, MELISSA 300.02 AN GEN ANXIETY 12/25/2010 SANDY CIRCUIT RECORDER, MELISSA 314.00 ADHD INATTENTIVE 12/25/2010 VASILE PORTILLO [...] 924.10 CONTUSION OF LOWER LEG 02/01/2011 CAROLINA EBAVER MD 278.02 OVERWEIGHT 02/01/2011 CAR[place]INA BEAVER MD [...] 924.10 CONTUSION OF LOWER LEG 02/01/2011 CROWELL CIRCUIT RECORDER, EVERARDO KENNEDY 278.02 OVERWEIGHT 02/01/2011 CROWELL ASHWIN EVERARDO LUCIOH 787.01 Nausea With Vomiting 02/01/2011 CROWELL CIRCUIT RECORDER, EVERARDO LUCIOH 790.29 OTHER ABNORMAL GLUCOSE 02/01/2011 CROWELL CIRCUIT RECORDER, EVERARDO BRENT 924.10 CONTUSION OF LOWER LEG 02/01/2011 CROWELL CIRCUIT RECORDER, EVERARDO LUCIOH 278.02 OVERWEIGHT 02/01/2011 CROWELL CIRCUIT RECORDER, EVERARDO LUCIOH 787.01 NAUSEA WITH VOMITING 02/01/2011 CROWELL CIRCUIT RECORDER, EVERARDO LUCIOH 790.29 OTHER ABNORMAL GLUCOSE 02/01/2011 CROWELL CIRCUIT RECORDER, EVERARDO LUCIOH 924.10 CONTUSION OF LOWER LEG [...] EVERARDO CROWELL APRN 278.02 OVERWEIGHT 02/01/2011 CROWELL CIRCUIT RECORDEREVERARDO 787.01 Nausea With Vomiting 02/01/2011 EVERARDO CROWELL [...] 924.10 CONTUSION OF LOWER LEG 02/01/2011 SANDY CIRCUIT RECORDER, MELISSA 278.02 OVERWEIGHT 02/01/2011 SANDY CIRCUIT RECORDER, MELISSA 787.01 Nausea With Vomiting 02/01/2011 SANDY CIRCUIT RECORDER, MELISSA 790.29 OTHER ABNORMAL GLUCOSE 02/01/2011 SANDY CIRCUIT RECORDER MELISSA 924.10 CONTUSION OF LOWER LEG 02/01/2011 [...] 924.10 CONTUSION OF LOWER LEG 02/01/2011 SANDY CIRCUIT RECORDER, MELISSA 278.02 OVERWEIGHT 02/01/2011 SANDY CIRCUIT RECORDER, MELISSA 787.01 Nausea With Vomiting 02/01/2011 SANDY CIRCUIT RECORDER, MELISSA 790.29 OTHER ABNORMAL GLUCOSE 02/01/2011 SANDY CIRCUIT RECORDER, MELISSA 924.10 CONTUSION OF LOWER LEG 02/01/2011 CAR[place] BEAVER MD 278.02 OVERWEIGHT 02/01/2011 [place] BEAVER MD 787.01 Nausea With Vomiting 02/01/2011 [place] BEAVER MD 790.29 OTHER ABNORMAL GLUCOSE 02/01/2011 [place] BEAVER MD 924.10 CONTUSION OF LOWER LEG 02/01/2011 SANDY CIRCUIT RECORDER, MELISSA 278.02 OVERWEIGHT 02/01/2011 SANDY CIRCUIT RECORDER, MELISSA 787.01 Nausea With Vomiting 02/01/2011 SANDY CIRCUIT RECORDER, MELISSA 790.29 OTHER ABNORMAL GLUCOSE 02/01/2011 SANDY CIRCUIT RECORDER, MELISSA 924.10 CONTUSION OF LOWER LEG 02/01/2011 CAR[place] BEAVER MD 278.02 OVERWEIGHT 02/01/2011 [place] BEAVER MD 787.01 Nausea With Vomiting 02/01/2011 [place] BEAVER MD 790.29 OTHER ABNORMAL GLUCOSE 02/01/2011 [place] BEAVER MD 924.10 CONTUSION OF LOWER LEG 02/01/2011 SANDY CIRCUIT RECORDER, MELISSA 278.02 OVERWEIGHT 02/01/2011 SANDY CIRCUIT RECORDER, MELISSA 787.01 Nausea With Vomiting 02/01/2011 SANDY CIRCUIT RECORDER, MELISSA 790.29 OTHER ABNORMAL GLUCOSE 02/01/2011 SANDY CIRCUIT RECORDER, MELISSA 924.10 CONTUSION OF LOWER LEG 02/01/2011 [...] SARANYA SWAN, [place] 314.01 ADHD COMBINED 05/27/2011 BALWINDRE DPM, MATTY 314.01 ADHD COMBINED 05/27/2011 SANDY CIRCUIT RECORDER, MELISSA 314.01 ADHD COMBINED 05/27/2011 LINDSEY BENOIT, KSAI L 314.01 ADHD COMBINED 05/27/2011 LINDSEY BENOIT, KASI L 314.01 ADHD COMBINED 05/27/2011 SARANYA SWAN, [place] 314.01 ADHD COMBINED 05/27/2011 LINDSEY BENOIT, KASI L 314.01 ADHD COMBINED 05/27/2011 SANDY CIRCUIT RECORDER, MELISSA 314.01 ADHD COMBINED 05/27/2011 SARANYA SWAN, [place] 314.01 ADHD COMBINED 05/27/2011 SANDY CIRCUIT RECORDER, MELISSA 314.01 ADHD COMBINED 05/27/2011 SARANYA SWAN, [place] 314.01 ADHD COMBINED 05/27/2011 SANDY CIRCUIT RECORDER, MELISSA 314.01 ADHD COMBINED 05/27/2011 LINDSEY BENOIT, [...] UNSPECIFIED ARTHROPATHY SITE UNSPECIFIED 06/25/2011 CROWELL APRN, VEERARDO KENNEDY 716.90 UNSPECIFIED ARTHROPATHY SITE UNSPECIFIED 06/25/2011 [...] 716.90 UNSPECIFIED ARTHROPATHY SITE UNSPECIFIED 06/25/2011 SANDY CIRCUIT RECORDER, MELISSA 716.90 UNSPECIFIED ARTHROPATHY SITE UNSPECIFIED 06/25/2011 VASILE PORTILLO PSYD ANN L 716.90 UNSPECIFIED ARTHROPATHY SITE UNSPECIFIED 06/25/2011 VASILE PORTILLO PSYD ANN L 716.90 UNSPECIFIED ARTHROPATHY SITE UNSPECIFIED 06/25/2011 CAROLINA BEAVER MD 716.90 UNSPECIFIED ARTHROPATHY SITE UNSPECIFIED 06/25/2011 VASILE PORTILLO PSYD ANN L 716.90 UNSPECIFIED ARTHROPATHY SITE UNSPECIFIED 06/25/2011 SANDY CIRCUIT RECORDER, MELISSA 716.90 UNSPECIFIED ARTHROPATHY SITE UNSPECIFIED 06/25/2011 CAR[place] BEAVER MD 716.90 UNSPECIFIED ARTHROPATHY SITE UNSPECIFIED 06/25/2011 SANDY CIRCUIT RECORDER, MELISSA 716.90 UNSPECIFIED ARTHROPATHY SITE UNSPECIFIED 06/25/2011 CAROL[place] BEAVER MD 716.90 UNSPECIFIED ARTHROPATHY SITE UNSPECIFIED 06/25/2011 SANDY CIRCUIT RECORDER, MELISSA 716.90 UNSPECIFIED ARTHROPATHY SITE UNSPECIFIED 06/25/2011 VASILE PORTILLO PSYD ANN L 716.90 UNSPECIFIED ARTHROPATHY SITE UNSPECIFIED 07/13/2011 [place] BEAVER MD 300.00 AN ANXIETY UNSPEC 07/13/2011 VEERARDO CROWELL APRN 300.00 AN ANXIETY UNSPEC 07/13/2011 [...] DPM 300.00 AN ANXIETY UNSPEC 07/13/2011 SANDY CIRCUIT RECORDER, MELISSA 300.00 AN ANXIETY UNSPEC 07/13/2011 VASILE PORTILLO PSYD ANN L 300.00 AN ANXIETY UNSPEC 07/13/2011 VASILE PORTILLO PSYD ANN L 300.00 AN ANXIETY UNSPEC 07/13/2011 [place] BEAVER MD 300.00 AN ANXIETY UNSPEC 07/13/2011 VASILE PORTILLO PSYD ANN L 300.00 AN ANXIETY UNSPEC 07/13/2011 SANDY CIRCUIT RECORDER, MELISSA 300.00 AN ANXIETY UNSPEC 07/13/2011 [place]INA [...] 380.10 Infective Otitis Externa Unspecified 09/24/2011 CROWELL CIRCUIT RECORDER, EVERARDO LUCIOH 380.10 Infective Otitis Externa Unspecified 09/24/2011 CROWELL CIRCUIT RECORDER EVERARDO BRENT 380.10 Infective Otitis Externa Unspecified 09/24/2011 [place] BEAVER MD 380.10 Infective Otitis Externa Unspecified 09/24/2011 VASILE PORTILLO PSYD ANN L 380.10 Infective Otitis Externa Unspecified 09/24/2011 VASILE PORTILLO PSYD ANN L 380.10 Infective Otitis Externa Unspecified 09/24/2011 CROWELL CIRCUIT RECORDER, EVERARDO BRENT 380.10 Infective Otitis Externa Unspecified 09/24/2011 VASILE PORTILLO PSYD ANN L 380.10 Infective Otitis Externa Unspecified 09/24/2011 [place] BEAVER MD 380.10 Infective Otitis Externa Unspecified 09/24/2011 VASILE PORTILLO PSYD ANN L 380.10 Infective Otitis Externa Unspecified 09/24/2011 VASILE PORTILLO PSYD ANN L 380.10 Infective Otitis Externa Unspecified 09/24/2011 [place] BEAVER MD 380.10 Infective Otitis Externa Unspecified 09/24/2011 BALWINDER HOBSON, MTATY 380.10 Infective Otitis Externa Unspecified 09/24/2011 SANDY CIRCUIT RECORDER, MELISSA 380.10 Infective Otitis Externa Unspecified 09/24/2011 [...] APRNIA R 461.9 Sinusitis Acute 12/07/2011 CROWELL CIRCUIT RECORDER, EVERARDO LUCIOH 380.4 Impacted Cerumen 12/07/2011 CROWELL CIRCUIT RECORDER, EVERARDO BRENT 461.9 Sinusitis Acute 12/07/2011 [place]INA [...] ANN L 461.9 Sinusitis Acute 12/07/2011 CROWELL CIRCUIT RECORDER, EVERARDO LUCIOH 380.4 Impacted Cerumen 12/07/2011 CROWELL CIRCUIT RECORDER, EVERARDO BRENT 461.9 Sinusitis Acute 12/07/2011 CROWELL CIRCUIT RECORDER, EVERARDO BRENT 380.4 Impacted Cerumen 12/07/2011 CROWELL CIRCUIT RECORDER, EVERARDO BRENT 461.9 Sinusitis Acute 12/07/2011 CAR[place] BEAVER MD 380.4 Impacted Cerumen 12/07/2011 [place] BEAVER MD 461.9 Sinusitis Acute 12/07/2011 VASILE PORTILLO PSYD ANN L 380.4 Impacted Cerumen 12/07/2011 VASILE PORTILLO PSYD ANN L 461.9 Sinusitis Acute 12/07/2011 VASILE PORTILLO PSYD ANN L 380.4 Impacted Cerumen 12/07/2011 VASILE PORTILLO PSYD ANN L 461.9 Sinusitis Acute 12/07/2011 CROWELL CIRCUIT RECORDER, EVERARDO KENNEDY 380.4 Impacted Cerumen 12/07/2011 CROWELL CIRCUIT RECORDER, EVERARDO KENNEDY 461.9 Sinusitis Acute 12/07/2011 VASILE [...] DPM, MATTY 461.9 Sinusitis Acute 12/07/2011 SANDY CIRCUIT RECORDER, MELISSA 380.4 Impacted Cerumen 12/07/2011 SANDY CIRCUIT RECORDER, MELISSA 461.9 Sinusitis Acute 12/07/2011 VASILE PORTILLO [...] PORTILLO PSYD 461.9 Sinusitis Acute 12/07/2011 SANDY CIRCUIT RECORDER, MELISSA 380.4 Impacted Cerumen 12/07/2011 SANDY CIRCUIT RECORDER, MELISSA 461.9 Sinusitis Acute 12/07/2011 [place] BEAVER MD 380.4 Impacted Cerumen 12/07/2011 [place] BEAVER MD 461.9 Sinusitis Acute 12/07/2011 SANDY CIRCUIT RECORDER, MELISSA 380.4 Impacted Cerumen 12/07/2011 SANDY CIRCUIT RECORDER, MELISSA 461.9 Sinusitis Acute 12/07/2011 [place] BEAVER MD 380.4 Impacted Cerumen 12/07/2011 [place] BEAVER MD 461.9 Sinusitis Acute 12/07/2011 SANDY CIRCUIT RECORDER, MELISSA 380.4 Impacted Cerumen 12/07/2011 SANDY CIRCUIT RECORDER, MELISSA 461.9 Sinusitis Acute 12/07/2011 VASILE PORTILLO [...] 696.1 Other Psoriasis And Similar Disorders 12/27/2011 ACROLINA BEAVER MD 696.1 Other Psoriasis And Similar [...] (CURRENT) USE OF OTHER MEDICATIONS 07/01/2012 CROWELL CIRCUIT RECORDEREVERARDO Vinson 528.2 Oral Aphthae 07/01/2012 CROWELL CIRCUIT RECORDER, EVERARDO KENNEDY 599.0 URINARY TRACT INFECTION 07/01/2012 CROWELL EVERARDO CHRISTOPHER V58.69 LONG-TERM (CURRENT) USE OF OTHER MEDICATIONS 07/01/2012 [place] BEAVER MD 528.2 Oral Aphthae 07/01/2012 [place] BEAVER MD 599.0 Urinary Tract Infection 07/01/2012 [place] BEAVER MD V58.69 LONG-TERM (CURRENT) USE OF OTHER MEDICATIONS 07/01/2012 VASILE PORTILLO PSYD L 528.2 Oral Aphthae 07/01/2012 VASILE PORTILLO PSYD ANN L 599.0 Urinary Tract Infection 07/01/2012 VASILE POTRILLO PSYD ANN L V58.69 LONG-TERM (CURRENT) USE OF OTHER MEDICATIONS 07/01/2012 VASILE PORTILLO PSYD ANN L 528.2 Oral Aphthae 07/01/2012 VASILE PORTILLO PSYD ANN L 599.0 Urinary Tract Infection 07/01/2012 VASILE PORTILLO PSYD ANN L V58.69 LONG-TERM (CURRENT) USE OF OTHER MEDICATIONS 07/01/2012 CROWELL CIRCUIT RECORDEREVERARDO 528.2 Oral Aphthae 07/01/2012 CROWELL CIRCUIT RECORDER, EVERARDO KENNEDY 599.0 Urinary Tract Infection 07/01/2012 CROWELL CIRCUIT RECORDEREVERARDO Vinson V58.69 LONG-TERM (CURRENT) USE OF OTHER [...] (CURRENT) USE OF OTHER MEDICATIONS 07/01/2012 SANDY CIRCUIT RECORDER MELISSA 528.2 Oral Aphthae 07/01/2012 SANDY CIRCUIT RECORDER, MELISSA 599.0 Urinary Tract Infection 07/01/2012 SANDY CIRCUIT RECORDER, MELISSA V58.69 LONG-TERM (CURRENT) USE OF OTHER [...] (CURRENT) USE OF OTHER MEDICATIONS 07/01/2012 SANDY CIRCUIT RECORDERMELISSA Vinson 528.2 Oral Aphthae 07/01/2012 MELISSA DELGADO APRN 599.0 Urinary Tract Infection 07/01/2012 SANDY CHRISTOPHER MELISSA V58.69 LONG-TERM (CURRENT) USE OF OTHER MEDICATIONS 07/01/2012 [place] BEAVER MD8.2 Oral Aphthae 07/01/2012 [place] BEAVER MD 599.0 Urinary Tract Infection 07/01/2012 [place] BEAVER MD V58.69 LONG-TERM (CURRENT) USE OF OTHER MEDICATIONS 07/01/2012 SANDY CIRCUIT RECORDERTED VinsonMELISSA 528.2 Oral Aphthae 07/01/2012 SANDY CIRCUIT RECORDERMELISSA Vinson 599.0 Urinary Tract Infection 07/01/2012 SANDY CHRISTOPHER MELISSA V58.69 LONG-TERM (CURRENT) USE OF OTHER MEDICATIONS 07/01/2012 [place] BEAVER MD.2 Oral Aphthae 07/01/2012 [place] BEAVER MD 599.0 Urinary Tract Infection 07/01/2012 [place] BEAVER MD V58.69 LONG-TERM (CURRENT) USE OF OTHER MEDICATIONS 07/01/2012 SANDY CIRCUIT RECORDER, MELISSA 528.2 Oral Aphthae 07/01/2012 SANDY CIRCUIT RECORDER, MELISSA 599.0 Urinary Tract Infection 07/01/2012 MELISSA [...] (3 Yrs And Above, Im) 07/11/2012 SANDY CIRCUIT RECORDER, MELISSA V04.81 Flu Dx (3 Yrs And Above, Im) 07/11/2012 [place] BEAVER MD V04.81 Flu Dx (3 Yrs And Above, Im) 07/11/2012 SANDY CIRCUIT RECORDER, MELISSA V04.81 Flu Dx (3 Yrs And [...] ADJUSTMENT DISORDER WITH DEPRESSED MOOD 08/07/2013 SANDY CIRCUIT RECORDER, MELISSA 309.0 ADJUSTMENT DISORDER WITH DEPRESSED MOOD 08/07/2013 VASILE PORTILLO PSYD ANN L 309.0 ADJUSTMENT DISORDER WITH DEPRESSED MOOD 08/07/2013 VASILE PORTILLO PSYD ANN L 309.0 ADJUSTMENT DISORDER WITH DEPRESSED MOOD 08/07/2013 [place] BEAVER MD 309.0 ADJUSTMENT DISORDER WITH DEPRESSED MOOD 08/07/2013 VASILE PORTILLO PSYD ANN L 309.0 ADJUSTMENT DISORDER WITH DEPRESSED MOOD 08/07/2013 SANDY CIRCUIT RECORDER, MELISSA 309.0 ADJUSTMENT DISORDER WITH DEPRESSED MOOD 08/07/2013 [place] BEAVER MD 309.0 ADJUSTMENT DISORDER WITH DEPRESSED MOOD 08/07/2013 SANDY CIRCUIT RECORDER, MELISSA 309.0 ADJUSTMENT DISORDER WITH DEPRESSED MOOD 08/07/2013 [place] BEAVER MD 309.0 ADJUSTMENT DISORDER WITH DEPRESSED MOOD 08/07/2013 SANDY CIRCUIT RECORDER, MELISSA 309.0 ADJUSTMENT DISORDER WITH DEPRESSED MOOD [...] 389.00 CONDUCTIVE HEARING LOSS UNSPECIFIED 10/26/2013 SANDY CIRCUIT RECORDER, MELISSA 389.00 CONDUCTIVE HEARING LOSS UNSPECIFIED 10/26/2013 VASILE PORTILLO PSYD ANN L 389.00 CONDUCTIVE HEARING LOSS UNSPECIFIED 10/26/2013 VASILE PORTILLO PSYD ANN L 389.00 CONDUCTIVE HEARING LOSS UNSPECIFIED 10/26/2013 [place] BEAVER MD 389.00 CONDUCTIVE HEARING LOSS UNSPECIFIED 10/26/2013 VASILE PORTILLO PSYD ANN L 389.00 CONDUCTIVE HEARING LOSS UNSPECIFIED 10/26/2013 SANDY CIRCUIT RECORDER, MELISSA 389.00 CONDUCTIVE HEARING LOSS UNSPECIFIED 10/26/2013 [place] BEAVER MD 389.00 CONDUCTIVE HEARING LOSS UNSPECIFIED 10/26/2013 SANDY CIRCUIT RECORDER, MELISSA 389.00 CONDUCTIVE HEARING LOSS UNSPECIFIED 10/26/2013 [place] BEAVER MD 389.00 CONDUCTIVE HEARING LOSS UNSPECIFIED 10/26/2013 SANDY CIRCUIT RECORDER, MELISSA 389.00 CONDUCTIVE HEARING LOSS UNSPECIFIED 10/26/2013 [...] RECURRENT SEVERE W/O PSYCHOTIC BEHAVIOR 01/23/2014 SANDY CIRCUIT RECORDER, MLEISSA 296.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/O [...] RECURRENT SEVERE W/O PSYCHOTIC BEHAVIOR 01/23/2014 SANDY CIRCUIT RECORDER, MELISSA 296.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/O PSYCHOTIC BEHAVIOR 01/23/2014 [place] BEAVER MD 296.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/O PSYCHOTIC BEHAVIOR 01/23/2014 SANDY CIRCUIT RECORDER, MELISSA 296.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/O PSYCHOTIC BEHAVIOR 01/23/2014 [place] BEAVER MD 296.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/O PSYCHOTIC BEHAVIOR 01/23/2014 SANDY CIRCUIT RECORDER, MELISSA 296.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/O [...] BEAVER MD V06.1 TDAP DX 04/04/2014 MATTY BIRTT DPM 892.0 OPEN WOUND OF FOOT EXCEPT [...] PORTILLO PSYD V06.1 TDAP DX 04/04/2014 SANDY CIRCUIT RECORDER, MELISSA 892.0 OPEN WOUND OF FOOT EXCEPT TOE(S) ALONE WITHOUT COMPLICATION 04/04/2014 SANDY CIRCUIT RECORDER, MELISSA V06.1 TDAP DX 04/04/2014 [place] BEAVER MD 892.0 OPEN WOUND OF FOOT EXCEPT TOE(S) ALONE WITHOUT COMPLICATION 04/04/2014 [place] BEAVER MD V06.1 TDAP DX 04/04/2014 SANDY CIRCUIT RECORDER, MELISSA 892.0 OPEN WOUND OF FOOT EXCEPT TOE(S) ALONE WITHOUT COMPLICATION 04/04/2014 SANDY CIRCUIT RECORDER, MELISSA V06.1 TDAP DX 04/04/2014 [place] BEAVER MD 892.0 OPEN WOUND OF FOOT EXCEPT TOE(S) ALONE WITHOUT COMPLICATION 04/04/2014 [place] BEAVER MD V06.1 TDAP DX 04/04/2014 SANDY CIRCUIT RECORDER, MELISSA 892.0 OPEN WOUND OF FOOT EXCEPT TOE(S) ALONE WITHOUT COMPLICATION 04/04/2014 SANDY CIRCUIT RECORDER, MELISSA V06.1 TDAP DX 04/04/2014 VASILE PORTILLO [...] L 401.1 BENIGN ESSENTIAL HYPERTENSION 09/20/2014 VASILE OPRTILLO PSYD 707.15 ULCER-FOOT/TOES 09/20/2014 MELISSA DELGADO APRN 401.1 BENIGN ESSENTIAL HYPERTENSION 09/20/2014 MELISSA DELGDAO APRN 707.15 ULCER-FOOT/TOES 09/20/2014 [place] BEAVER MD [...] MEDIA, UNSPECIFIED, RIGHT EAR 03/22/2016 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 Ot M17.12 UNILATERAL PRIMARY OSTEOARTHRITIS, LEFT 04/05/2016 BALWINDER DPM, MATTY Q Ot 681.10 CELLULITIS, TOE NOS 04/05/2016 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 Ot M17.12 UNILATERAL PRIMARY OSTEOARTHRITIS, LEFT 04/05/2016 [...] R06.02 SHORTNESS OF BREATH 04/27/2016 RAN SWAN [facility], ALI FACP CCDS Ot E11.9 TYPE 2 DIABETES MELLITUS WITHOUT COMPLIC 04/27/2016 RAN SWAN [facility], ALI FACP CCDS Ot E66.09 OTHER OBESITY DUE TO EXCESS CALORIES 04/27/2016 RAN SWAN FAC, ALI FACP CCDS Ot E78.0 PURE HYPERCHOLESTEROLEMIA 04/27/2016 RAN SWAN FAC, ALI FACP CCDS Ot I10 ESSENTIAL (PRIMARY) HYPERTENSION 04/27/2016 RAN SWAN [facility], ALI FACP CCDS Ot R06.02 SHORTNESS OF BREATH 04/27/2016 RAN SWAN [facility], ALI FACP CCDS Ot E11.9 TYPE 2 DIABETES MELLITUS WITHOUT COMPLIC 04/27/2016 RAN SWAN [facility], ALI FACP CCDS Ot E66.09 OTHER OBESITY DUE TO EXCESS CALORIES 04/27/2016 RAN SWAN [facility], ALI FACP CCDS Ot E78.0 PURE HYPERCHOLESTEROLEMIA 04/27/2016 RAN SWAN [facility], ALI FACP CCDS Ot I10 ESSENTIAL (PRIMARY) HYPERTENSION 04/27/2016 RAN SWAN [facility], ALI FACP CCDS Ot R06.02 SHORTNESS OF [...] ENCOUNTER FOR OTHER PREPROCEDURAL EXAMIN 01/25/2017 PATRICA LARSNO MD, Ot K21.9 GASTRO-ESOPHAGEAL REFLUX DISEASE WITHOUT [...] 01/26/2017 PATRICA LARSON MD, Ot Z79.899 OTHER HELPER ELECTRICAL (CURRENT) DRUG THERAPY 01/27/2017 PATRICA LARSON MD Ot K21.0 GASTRO-ESOPHAGEAL REFLUX DISEASE WITH ES 01/27/2017 PATRICA LARSON MD, Ot K29.70 GASTRITIS, UNSPECIFIED, WITHOUT BLEEDING 01/27/2017 PATRICA LARSON MD Ot K64.1 SECOND DEGREE HEMORRHOIDS 01/27/2017 PATRICA LARSON MD, Ot Z79.899 OTHER HELPER ELECTRICAL (CURRENT) DRUG THERAPY 02/02/2017 PATRICA LARSON MD Ot K21.0 GASTRO-ESOPHAGEAL REFLUX DISEASE WITH ES 02/02/2017 PATRICA LARSON MD, Ot K29.70 GASTRITIS, UNSPECIFIED, WITHOUT BLEEDING 02/02/2017 PATRICA LARSON MD, Ot K64.1 SECOND DEGREE HEMORRHOIDS 02/02/2017 PATRICA LARSON MD, Ot Z79.899 OTHER HELPER ELECTRICAL (CURRENT) DRUG THERAPY 02/05/2017 PATRICA LARSON MD, Ot K21.0 GASTRO-ESOPHAGEAL REFLUX DISEASE WITH ES 02/05/2017 PATRICA LARSON MD, Ot K29.70 GASTRITIS, UNSPECIFIED, WITHOUT BLEEDING 02/05/2017 PATRICA LARSON MD, Ot K64.1 SECOND DEGREE HEMORRHOIDS 02/05/2017 PATRICA LARSON MD, Ot Z79.899 OTHER LONGTERM (CURRENT) DRUG THERAPY 02/22/2017 FENECH DO NHUNG [...] 02/24/2017 PATRICA LARSON MD, Ot Z79.899 OTHER HELPER ELECTRICAL (CURRENT) DRUG THERAPY 03/16/2017 FENECH DO, NHUNG [...] Procedures Code Description [place] [address] A1C (IN-HOUSE) 85907 URINE DRUG SCREEN (IN-HOUSE) 01/23/2013 96721 A1C (IN-HOUSE) 17127 ROUTINE VENIPUNCTURE 07/06/2013 03850 UA W/ CULTURE IF INDICATED 07/06/2013 08913 MICRO ALBUMIN-IN HOUSE 07/06/2013 82502 MICROALBUMIN 03/2013 95125 CULTURE URINE 05/2013 66653 A1C (IN-HOUSE) Nhung Castano 10/14/2013 09777 ROUTINE VENIPUNCTURE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
[2017-07-27 23:45] VITALS: BP 115/74
[2017-07-27] MEDS ORDERED: ONDANSETRON 4 MG/2 ML (SDV) Z0FRAN IV PRN (23:45)
[2017-07-27] MEDS ORDERED: NOREPINEPHRINE 4 MG in D5W 250 ML (IVPB) 250 ML IV SCH (23:50)
[2017-07-27] MEDS ORDERED: VASOPRESSIN INJECTION 20 UNIT in NS (IVPB) 100 ML IV SCH (23:50)
[2017-07-28] VITALS (16 sets, daily range): BP systolic 94–175; BP diastolic 61–119
[2017-07-28] MEDS ORDERED: NS IV 1000 ML 1,000 ML IV SCH
[2017-07-28] MEDS ORDERED: NS IV 1000 ML 3,000 ML IV PRN
[2017-07-28] MEDS: NS IV 1000 ML 1,000 ML IV SCH ×5 (00:03→23:30)
[2017-07-28] MEDS ORDERED: RT-ALBUTEROL/IPRATROPIUM 3 ML (DUONEB) VIAL INH PRN (00:30)
[2017-07-28 05:01] LABS: BASOPHILS % (AUTO) 0 % (0-10); EOSINOPHILS # (AUTO) 0.2 10^3/uL (0.0-0.3); EOSINOPHILS % (AUTO) 3 % (0-10); LYMPHOCYTES # (AUTO) 1.7 X 10^3 (1.0-4.0); LYMPHOCYTES % (AUTO) 21 % (12-44); MEAN CORPUSCULAR HEMOGLOBIN 30 PG (25-34); MEAN CORPUSCULAR HGB CONC 34 G/DL (32-36); MEAN CORPUSCULAR VOLUME 88 FL (80-99); MEAN PLATELET VOLUME 9.5 FL (7.4-10.4); MONOCYTES # (AUTO) 0.7 X 10^3 (0.0-1.0); MONOCYTES % (AUTO) 8 % (0-12); NEUTROPHILS # (AUTO) 5.5 X 10^3 (1.8-7.8); NEUTROPHILS % (AUTO) 68 % (42-75); PLATELET COUNT 178 10^3/uL (130-400); RED BLOOD COUNT 4.47 10^6/uL (4.35-5.85); RED CELL DISTRIBUTION WIDTH 13.6 % (10.0-14.5); WHITE BLOOD COUNT 8.1 10^3/uL (4.3-11.0)
[2017-07-28 05:20] LABS: ALBUMIN 3.2 GM/DL (3.2-4.5); BILIRUBIN,TOTAL 0.3 MG/DL (0.1-1.0); CALCIUM 7.8 MG/DL (8.5-10.1); CREATININE SERUM 1.03 MG/DL (0.60-1.30); MAGNESIUM 2.4 MG/DL (1.8-2.4); PHOSPHORUS 3.6 MG/DL (2.3-4.7); POTASSIUM 3.8 MMOL/L (3.6-5.0); TOTAL PROTEIN 5.7 GM/DL (6.4-8.2)
[2017-07-28] MEDS ORDERED: MAGNESIUM 1 GM/100 ML IVPB 100 ML IV SCH (06:00)
[2017-07-28] MEDS ORDERED: POTASSIUM CL 10MEQ/50ML IVPB 50 ML IV SCH (06:00)
[2017-07-28] MEDS ORDERED: KCL 20 MEQ TAB (K-DUR) PO SCH (06:00)
[2017-07-28] MEDS: inSUlin (REGULAR) HUMAN 1 UNIT/0.01 ML (CHARGE PER UNIT) SC SCH ×4 (06:10→20:59)
[2017-07-28] MEDS ORDERED: NOREPINEPHRINE 4 MG in D5W IV SOLUTION (EXCEL) 250 ML IV SCH (07:00)
[2017-07-28] MEDS ORDERED: RT-ALBUTEROL/IPRATROPIUM 3 ML (DUONEB) VIAL INH SCH (08:00)
--- NOTE | 2017-07-28 08:59 | History & Physicial (CHS) ---
HPI History of Present Illness: Last night in the ed, per their report: Here with family who reports that she had fallen and was found on the floor. The story is very confusing the patient is a very poor historian. She may have been seen at [facility] today but the story is not clear. Apparently she has had several episodes of falling and confusion. Arrives confused and needing assistance to get out of the truck and her family member. Patient is weak with confusing story. She denies any significant pain but does admit to falling. She is unsure of when that occurred. This is apparently living going on over the last couple of days. When spoken to in the morning, the patient reports that she has no idea what happened and that she doesn't remember feeling that badly prior to coming to the ED. She reports that she had knee surgery in March, but has been recovering from that. This morning she reports that she feels well and is very hungry and wanting to eat. Source: patient, RN/MD, RN notes reviewed, old records Exam Limitations: no limitations Date seen by provider: Jul 28, 2017 Time Seen by Provider: 08:45 Attending Physician Blanca Epps Holly R MD Consult Date of Admission Jul 27, 2017 at 21:08 Home Medications Home Medications Reviewed patient Home Medication Reconciliation Form Allergies Coded Allergies: Sulfa (Sulfonamide Antibiotics) (Verified Allergy, Unknown, 08/26/14) morphine (Verified Adverse Reaction, Mild, NAUSEA, 05/19/16) VES-Debuxa-Eyrxvh Hx Patient Social History Marrital Status: Living Status: lives at home Employed/Student: retired Alcohol Use: Denies Use Recreational Drug Use: No Smoking Status: Former Smoker Type Used: Cigarettes 2nd Hand Smoke Exposure: Yes Recent Foreign Travel: No Contact w/other who traveled: No Recent Hopitalizations: No Recent Infectious Disease Expo: No Physical Abuse Screen: No Sexual Abuse: No Immunizations Up To Date Tetanus Booster (TDap): Less than 5yrs Date of Pneumonia Vaccine: Aug 13, 2015 Date of Influenza Vaccine: Jul 31, 2016 Past Medical History PSORIATIC ARTHRITIS ON IMMUNOSUPPRESSANT THERAPY DIABETES MELLITUS TYPE 2 MAJOR DEPRESSIVE DISORDER 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 Arthritis Obesity, BMI 44 Family Medical History Family History: AIDS Alcoholism Arthritis Asthma Cataracts Coronary thrombosis Diabetes mellitus Drug abuse Glaucoma Psychosocial problem Respiratory disorder No Family History of: Sadiq's disease Alzheimer's disease Aphasia Cancer of mouth Cardiovascular disease Colon cancer Completed stroke Congenital disease Congenital heart disease Cystic fibrosis Deafness or hearing loss Dementia Dysphasia Fibrocystic disease of breast Gastroenteritis Headache disorder Hypercholesterolemia 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 Infertility Kidney disease Myocardial infarction Neoplasm Not obtainable due to adoption Osteoporosis Parkinson's disease Prostate cancer Seizure disorder Severe allergy Thyroid disease Tuberculosis Visual disorder Review of Systems (CHC) Constitutional: chills, malaise, weakness EENTM: No ear pain, No eye pain, No mouth pain, No epistaxis Respiratory: cough, No dyspnea on exertion, No short of breath Gastrointestinal: no symptoms reported Genitourinary: see HPI : No Musculoskeletal: back pain, joint pain Skin: no symptoms reported Psychiatric/Neurological: Anxiety Reviewed Test Results Reviewed Test Results Lab Laboratory Tests 07/27/17 19:05: Lactic Acid Level 4.08*H 07/27/17 21:05: Lactic Acid Level 1.51 Laboratory Tests Test 07/27/17 18:50 07/27/17 19:05 07/27/17 21:05 07/27/17 23:59 Range/Units Glucometer 243 H 114 H 70-110 MG/DL White Blood Count 11.2 H 4.3-11.0 10^3/uL Red Blood Count 5.03 4.35-5.85 10^6/uL Hemoglobin 15.1 11.5-16.0 G/DL Hematocrit 44 35-52 % Mean Corpuscular Volume 87 80-99 FL Mean Corpuscular Hemoglobin 30 25-34 PG Mean Corpuscular Hemoglobin Concent 35 32-36 G/DL Red Cell Distribution Width 13.6 10.0-14.5 % Platelet Count 235 130-400 10^3/uL Mean Platelet Volume 9.7 7.4-10.4 FL Neutrophils (%) (Auto) 82 H 42-75 % Lymphocytes (%) (Auto) 11 L 12-44 % Monocytes (%) (Auto) 6 0-12 % Eosinophils (%) (Auto) 1 0-10 % Basophils (%) (Auto) 0 0-10 % Neutrophils # (Auto) 9.2 H 1.8-7.8 X 10^3 Lymphocytes # (Auto) 1.2 1.0-4.0 X 10^3 Monocytes # (Auto) 0.7 0.0-1.0 X 10^3 Eosinophils # (Auto) 0.1 0.0-0.3 10^3/uL Basophils # (Auto) 0.0 0.0-0.1 10^3/uL Prothrombin Time 12.9 12.2-14.7 SEC INR Comment 1.0 0.8-1.4 Activated Partial Thromboplast Time 24 24-35 SEC Urine Color DAISY H Urine Clarity CLEAR Urine pH 5 5-9 Urine Specific Calera 1.015 L 1.016-1.022 Urine Protein 1+ H NEGATIVE Urine Glucose (UA) 4+ H NEGATIVE Urine Ketones NEGATIVE NEGATIVE Urine Nitrite POSITIVE H NEGATIVE Urine Bilirubin NEGATIVE NEGATIVE Urine Urobilinogen NORMAL NORMAL MG/DL Urine Leukocyte Esterase NEGATIVE NEGATIVE Urine RBC (Auto) NEGATIVE NEGATIVE Urine RBC NONE /HPF Urine WBC NONE /HPF Urine Squamous Epithelial Cells 0-2 /HPF Urine Crystals NONE /LPF Urine Bacteria TRACE /HPF Urine Casts NONE /LPF Urine Mucus NEGATIVE /LPF Urine Culture Indicated YES Sodium Level 132 L 135-145 MMOL/L Potassium Level 3.9 3.6-5.0 MMOL/L Chloride Level 99 98-107 MMOL/L Carbon Dioxide Level 20 L 21-32 MMOL/L Anion Gap 13 5-14 MMOL/L Blood Urea Nitrogen 33 H 7-18 MG/DL Creatinine 1.95 H 0.60-1.30 MG/DL Estimat Glomerular Filtration Rate 26 BUN/Creatinine Ratio 17 Glucose Level 244 H 70-105 MG/DL Lactic Acid Level 4.08 *H 1.51 0.50-2.00 MMOL/L Calcium Level 9.2 8.5-10.1 MG/DL Total Bilirubin 0.4 0.1-1.0 MG/DL Aspartate Amino Transf (AST/SGOT) 27 5-34 U/L Alanine Aminotransferase (ALT/SGPT) 18 0-55 U/L Alkaline Phosphatase 143 H 40-136 U/L Troponin I < 0.30 <0.30 NG/ML Total Protein 7.0 6.4-8.2 GM/DL Albumin 3.9 3.2-4.5 GM/DL Test 07/28/17 04:25 07/28/17 10:20 07/28/17 16:28 07/28/17 20:39 Range/Units White Blood Count 8.1 4.3-11.0 10^3/uL Red Blood Count 4.47 4.35-5.85 10^6/uL Hemoglobin 13.5 11.5-16.0 G/DL Hematocrit 40 35-52 % Mean Corpuscular Volume 88 80-99 FL Mean Corpuscular Hemoglobin 30 25-34 PG Mean Corpuscular Hemoglobin Concent 34 32-36 G/DL Red Cell Distribution Width 13.6 10.0-14.5 % Platelet Count 178 130-400 10^3/uL Mean Platelet Volume 9.5 7.4-10.4 FL Neutrophils (%) (Auto) 68 42-75 % Lymphocytes (%) (Auto) 21 12-44 % Monocytes (%) (Auto) 8 0-12 % Eosinophils (%) (Auto) 3 0-10 % Basophils (%) (Auto) 0 0-10 % Neutrophils # (Auto) 5.5 1.8-7.8 X 10^3 Lymphocytes # (Auto) 1.7 1.0-4.0 X 10^3 Monocytes # (Auto) 0.7 0.0-1.0 X 10^3 Eosinophils # (Auto) 0.2 0.0-0.3 10^3/uL Basophils # (Auto) 0.0 0.0-0.1 10^3/uL Sodium Level 137 135-145 MMOL/L Potassium Level 3.8 3.6-5.0 MMOL/L Chloride Level 109 H 98-107 MMOL/L Carbon Dioxide Level 18 L 21-32 MMOL/L Anion Gap 10 5-14 MMOL/L Blood Urea Nitrogen 23 H 7-18 MG/DL Creatinine 1.03 0.60-1.30 MG/DL Estimat Glomerular Filtration Rate 54 BUN/Creatinine Ratio 22 Glucose Level 202 H 70-105 MG/DL Calcium Level 7.8 L 8.5-10.1 MG/DL Phosphorus Level 3.6 2.3-4.7 MG/DL Magnesium Level 2.4 1.8-2.4 MG/DL Total Bilirubin 0.3 0.1-1.0 MG/DL Aspartate Amino Transf (AST/SGOT) 24 5-34 U/L Alanine Aminotransferase (ALT/SGPT) 16 0-55 U/L Alkaline Phosphatase 116 40-136 U/L Total Protein 5.7 L 6.4-8.2 GM/DL Albumin 3.2 3.2-4.5 GM/DL Glucometer 208 H 284 H 147 H 70-110 MG/DL Test 07/29/17 04:40 07/29/17 04:51 07/29/17 10:45 Range/Units White Blood Count 6.9 4.3-11.0 10^3/uL Red Blood Count 4.21 L 4.35-5.85 10^6/uL Hemoglobin 12.8 11.5-16.0 G/DL Hematocrit 38 35-52 % Mean Corpuscular Volume 90 80-99 FL Mean Corpuscular Hemoglobin 30 25-34 PG Mean Corpuscular Hemoglobin Concent 34 32-36 G/DL Red Cell Distribution Width 13.7 10.0-14.5 % Platelet Count 161 130-400 10^3/uL Mean Platelet Volume 9.2 7.4-10.4 FL Neutrophils (%) (Auto) 65 42-75 % Lymphocytes (%) (Auto) 23 12-44 % Monocytes (%) (Auto) 8 0-12 % Eosinophils (%) (Auto) 4 0-10 % Basophils (%) (Auto) 0 0-10 % Neutrophils # (Auto) 4.5 1.8-7.8 X 10^3 Lymphocytes # (Auto) 1.6 1.0-4.0 X 10^3 Monocytes # (Auto) 0.6 0.0-1.0 X 10^3 Eosinophils # (Auto) 0.3 0.0-0.3 10^3/uL Basophils # (Auto) 0.0 0.0-0.1 10^3/uL Prothrombin Time 13.0 12.2-14.7 SEC INR Comment 1.0 0.8-1.4 Activated Partial Thromboplast Time 27 24-35 SEC Sodium Level 137 135-145 MMOL/L Potassium Level 3.9 3.6-5.0 MMOL/L Chloride Level 109 H 98-107 MMOL/L Carbon Dioxide Level 21 21-32 MMOL/L Anion Gap 7 5-14 MMOL/L Blood Urea Nitrogen 10 7-18 MG/DL Creatinine 0.90 0.60-1.30 MG/DL Estimat Glomerular Filtration Rate > 60 BUN/Creatinine Ratio 11 Glucose Level 259 H 70-105 MG/DL Calcium Level 8.0 L 8.5-10.1 MG/DL Phosphorus Level 2.8 2.3-4.7 MG/DL Magnesium Level 2.0 1.8-2.4 MG/DL Total Bilirubin 0.3 0.1-1.0 MG/DL Aspartate Amino Transf (AST/SGOT) 20 5-34 U/L Alanine Aminotransferase (ALT/SGPT) 15 0-55 U/L Alkaline Phosphatase 135 40-136 U/L Total Protein 5.4 L 6.4-8.2 GM/DL Albumin 3.0 L 3.2-4.5 GM/DL Glucometer 255 H 218 H 70-110 MG/DL Physical Exam-(CHC) Physical Exam Vital Signs VS - Last 72 Hours, by Label 07/27/17 07/27/17 07/27/17 07/27/17 11:29 18:45 23:25 23:45 Temp 96.9 97.7 Pulse 82 95 88 84 Resp 21 23 B/P (MAP) 106/64 115/74 Pulse Ox 95 95 97 O2 Delivery Room Air Room Air 07/28/17 07/28/17 07/28/17 07/28/17 00:00 00:00 00:30 01:00 Pulse 82 85 Resp 37 26 B/P (MAP) 117/73 124/68 Pulse Ox 96 97 97 94 O2 Delivery Room Air Room Air Room Air Room Air 07/28/17 07/28/17 07/28/17 07/28/17 01:00 02:00 03:00 04:00 Temp 96.9 Pulse 85 87 86 Resp 14 13 B/P (MAP) 94/61 130/68 Pulse Ox 91 93 O2 Delivery Room Air Room Air 07/28/17 07/28/17 07/28/17 07/28/17 04:00 04:00 05:00 06:00 Pulse 83 75 72 Resp 13 19 13 B/P (MAP) 119/71 141/80 157/88 Pulse Ox 97 94 96 97 O2 Delivery Room Air Room Air Room Air Room Air 07/28/17 07/28/17 07/28/17 07/28/17 07:00 07:33 07:50 07:59 Pulse 74 74 77 Resp 16 B/P (MAP) 175/119 Pulse Ox 98 96 95 O2 Delivery Room Air Room Air 07/28/17 07/28/17 07/28/17 07/28/17 08:00 08:00 09:00 10:00 Pulse 79 80 78 Resp 15 17 14 B/P (MAP) 144/64 147/97 140/78 Pulse Ox 97 96 97 98 O2 Delivery Room Air Room Air Room Air Room Air 07/28/17 07/28/17 07/28/17 07/28/17 11:00 12:00 12:00 12:00 Temp 97.9 98.0 Pulse 82 93 Resp 16 18 B/P (MAP) 140/78 143/98 Pulse Ox 98 96 98 O2 Delivery Room Air Room Air Room Air Room Air 07/28/17 07/28/17 07/28/17 07/28/17 12:00 13:00 16:00 19:00 Temp 98.6 98.0 98.7 Pulse 93 93 82 85 Resp 18 18 17 B/P (MAP) 143/98 143/98 153/65 Pulse Ox 96 96 95 O2 Delivery Room Air Room Air Room Air 07/28/17 07/28/17 07/28/17 07/29/17 19:05 19:55 21:00 00:28 Temp 97.3 97.8 Pulse 81 87 Resp 20 20 B/P (MAP) 147/81 132/82 Pulse Ox 96 97 O2 Delivery Room Air Room Air Room Air Room Air 07/29/17 07/29/17 07/29/17 07/29/17 01:00 04:22 07:02 08:31 Temp 97.9 98.5 Pulse 86 89 93 84 Resp 18 20 B/P (MAP) 143/87 138/64 Pulse Ox 96 95 O2 Delivery Room Air Room Air Capillary Refill : Less Than 3 Seconds General Appearance: no apparent distress Eyes: Bilateral Eye Normal Inspection HEENT: PERRL/EOMI, normal ENT inspection, pharynx normal, No scleral icterus (R ), No scleral icterus (L), No photophobia Neck: non-tender, full range of motion, supple, normal inspection Respiratory: chest non-tender, lungs clear, normal breath sounds, no respiratory distress, no accessory muscle use, No crackles, No rales, No rhonchi , No wheezing Cardiovascular: normal peripheral pulses, regular rate, rhythm, no gallop, no JVD, no murmur Gastrointestinal: normal bowel sounds, non tender, soft, no organomegaly, no pulsatile mass Back: normal inspection, no CVA tenderness, no vertebral tenderness Extremities: non-tender, normal inspection, normal capillary refill, pedal edema Neurologic/Psychiatric: weight yardage checker II-XII nml as tested, alert, normal mood/affect, oriented x 3, No abnormal gait Skin: normal color, warm/dry Lymphatic: no adenopathy Assessment/Plan Assessment/Plan Admission Dx Septic Shock, manifested by low blood pressure and acute renal failure Acute Kindey Injury UTI Type II DM, 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 The patient responded well to fluid boluses and did not need any pressors for support. This morning she is awake and alert and asking to eat. She improved much more rapidly than expected with fluid resuscitation. Her renal function is improved as well and she has had good output from her esteban catheter. We will advance her diet from clears to a full diabetic diet and have her ambulate with PT to assess her gait and overall strength. We will transfer her down to the fourth floor with telemetry this afternoon. With her much improved condition, we expect that her total hospital stay will likely be 3-4 days. CONDITION: STABLE CODE STATUS: FULL CODE PROGNOSIS: GOOD Diagnosis/Problems: Clinical Quality Measures DVT/VTE Risk/Contraindication: Risk Factor Score Per Nursin RFS Level Per Nursing on Admit: 3=High BLANCA EPPS DO Jul 28, 2017 08:59
--- NOTE | 2017-07-28 09:31 | Diagnostic Imaging Report ---
INDICATION: Septic shock. 0433 hours Portable upright view of the chest is obtained. FINDINGS: Since examination one day earlier, there has been increase in basilar atelectasis. There is elevation of both hemidiaphragms. No pneumothorax is seen. Pulmonary vascularity is at the upper limits of normal with no change in right jugular venous catheter. IMPRESSION: Further volume loss with increasing basilar atelectasis. No other definite acute abnormality is appreciated. Dictated by: Dictated on workstation # [id number]
[2017-07-28] MEDS ORDERED: NS IV 500 ML 500 ML ONE (09:39)
[2017-07-28] MEDS ORDERED: NOREPINEPHRINE 4 MG in D5W 250 ML (IVPB) 250 ML IV SCH (09:45)
[2017-07-28] MEDS ORDERED: VASOPRESSIN INJECTION 20 UNIT in NS (IVPB) 100 ML IV SCH (09:45)
[2017-07-28] MEDS ORDERED: TRAM50TA2 PO (10:18)
[2017-07-28] MEDS ORDERED: GABA-486 PO (10:18)
[2017-07-28] MEDS ORDERED: ALPR0.5T7 PO (10:18)
[2017-07-28] MEDS ORDERED: DEXT30TA12 PO (10:18)
[2017-07-28] MEDS ORDERED: IBUP-30 PO (10:18)
[2017-07-28] MEDS ORDERED: ESCI20TA45 PO (10:18)
[2017-07-28] MEDS ORDERED: MULT-35 PO (10:18)
[2017-07-28] MEDS ORDERED: PANT40TA3 PO (10:18)
[2017-07-28] MEDS ORDERED: ESTR0.5T PO (10:18)
[2017-07-28] MEDS ORDERED: PROM25TA14 PO (10:18)
[2017-07-28] MEDS ORDERED: IBUPROFEN TABLET 200 MG TAB PO PRN (11:30)
[2017-07-28] MEDS ORDERED: ALPRAZolam 0.5 MG (XANAX) TAB PO PRN (11:30)
[2017-07-28] MEDS ORDERED: PROMETHAZINE 25 MG (PHENERGAN) TAB PO PRN (11:30)
[2017-07-28] MEDS: inSUlin ASPART (NovoLOG) 1 UNIT/0.01 ML (CHARGE PER UNIT) SC SCH ×2 (13:02→17:11)
[2017-07-28] MEDS: LACTOBACILLUS Acidoph/Bulgar (LACTINEX/FLORANEX) TAB PO SCH (13:02)
--- NOTE | 2017-07-28 13:36 | Physical Therapy Evaluation ---
PT Evaluation-General Medical Diagnosis Admission Date Jul 27, 2017 at 21:08 Medical Diagnosis: septic shock Onset Date: Jul 27, 2017 Therapy Diagnosis Therapy Diagnosis: weakness/debility Height/Weight Height (Feet): 5 Height (Inches): 5.00 Weight (Pounds): 266 Weight (Ounces): 0.0 Precautions Precautions/Isolations: Fall Prevention, Standard Precautions Referral Physician: Delmi Reason for Referral: Evaluation/Treatment Medical History Pertinent Medical History: DM, HTN, Smoking Additional Medical History left TKR 2016 Current History family to ED secondary patient increase in confusion, fall with head injury Reviewed History: Yes Social History Home: Single Level Current Living Status: Alone Prior/Core FIM Prior Level of Function Functional [place] Measure 0=Not Assessed/NA 4=Minimal Assistance 1=Total Assistance 5=Supervision or Setup 2=Maximal Assistance 6=Modified [place] 3=Moderate Assistance 7=Complete [place] Bed Mobility: 7 Transfers (B,C,W/C) (FIM): 7 Gait: 7 PT Evaluation-Current Subjective Patient agrees to PT. She states, "I remember you from my knee surgery." Pain Numeric Pain Scale: 0-No Pain Location: No Pain Reported Objective Patient Orientation: Normal For Age Problem Solving: Fair Attachments: Hopper Catheter, IV ROM/Strength ROM Lower Extremities bilateral LE WNL Strenght Lower Extremities right knee flexion/extension 4/5; hip flexion 4/5; ankle dorsi/plantarflexion 4/ 5 left knee flexion/extension 4/5; hip flexion 4/5; ankle dorsi/plantarflexion 4/5 Integumentary/Posture Integumentary refer to nursing notes Bowel Incontinence: No Bladder Incontinence: Hopper Cath Posture WNL Neuromuscular (Tone, Coordination, Reflexes) grossly intact Sensory Vision: Functional Hearing: Functional Sensation Right Lower Extremit: Impaired Sensation Left Lower Extremity: Impaired Transfers Functional [place] Measure 0=Not Assessed/NA 4=Minimal Assistance 1=Total Assistance 5=Supervision or Setup 2=Maximal Assistance 6=Modified [place] 3=Moderate Assistance 7=Complete [place] Transfers (B, C, W/C) (FIM): 5 Scootin Rollin Supine to/from Sit: 5 Sit to/from Stand: 5 Gait Mode of Locomotion: Walk Anticipated Mode of Locomotion: Walk Gait (FIM): 5 Distance (FIM): 3=150 ft Distance: 150' Gait Level of Assist: 5 Gait Persons Needed: 1 Gait Assistive Device: FWW Comments/Gait Description steady gait sequence with FWW; diminished safety awareness Balance Sitting Static: Normal Sitting Dynamic: Normal Standing Static: Normal Standing Dynamic: Normal Assessment/Needs 62 y.o. female, will benefit from skilled PT to address functional strength and mobility to improve current LOF and to safely return to home at independent PLOF. 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 [employer] Director Goals [employer] Director Goals PT High [employer] Director Goals Time Frame: Aug 05, 2017 Transfers (B,C,W/C) (FIM): 7 Gait (FIM): 7 Gait distance (FIM): 3=150 ft Gait Level of Assist: 7 Gait Assistive Device: None PT Plan Problem List Problem List: Activity Tolerance, Gait Treatment/Plan Treatment Plan: Continue Plan of Care Treatment Plan: Bed Mobility, Education, Functional Activity [place], Functional Strength, Gait, Safety, Therapeutic Exercise, Transfers Treatment Duration: Aug 05, 2017 Frequency: 6 times per week Estimated Hrs Per Day: .25 hour per day Patient and/or Family Agrees t: Yes Safety Risks/Education Patient Education: Safety Issues Teaching Recipient: Patient Teaching Methods: Discussion Response to Teaching: Verbalize Understanding Discharge Recommendations Therapy D/C Recommendations: Home w/ Family Support, Home Independently Time/GCodes Time In: 1300 Time Out: 1325 Total Billed Treatment Time: 25 Total Billed Treatment 1 visit EVMod 25 min G Codes Necessary: CAILIN Younger PT Jul 28, 2017 13:36
[2017-07-28] MEDS: buPROPion SR 150 MG (WELLBUTRIN SR) TAB PO SCH ×2 (14:06→19:49)
[2017-07-28] MEDS: GABAPENTIN 100 MG (NEURONTIN) CAP PO SCH (19:48)
[2017-07-28] MEDS ORDERED: cefTRIAXone INJECTION 1,000 MG in NS (IVPB) 50 ML IV SCH (20:30)
[2017-07-28] MEDS: inSUlin DETERMIR 1 UNIT/0.01 ML (LEVEMIR) CHARGE PER UNIT SQ SCH (20:59)
[2017-07-28] MEDS ORDERED: NON-FORMULARY MEDICATION 1 EA EA (Vit C/E/Zn/Coppr/Lutein/Zeaxan (Preservision Areds 2 Sof PO SCH (21:00)
[2017-07-29 00:28] VITALS: BP 132/82
[2017-07-29 04:22] VITALS: BP 143/87
[2017-07-29 04:47] LABS: BASOPHILS % (AUTO) 0 % (0-10); EOSINOPHILS # (AUTO) 0.3 10^3/uL (0.0-0.3); EOSINOPHILS % (AUTO) 4 % (0-10); LYMPHOCYTES # (AUTO) 1.6 X 10^3 (1.0-4.0); LYMPHOCYTES % (AUTO) 23 % (12-44); MEAN CORPUSCULAR HEMOGLOBIN 30 PG (25-34); MEAN CORPUSCULAR HGB CONC 34 G/DL (32-36); MEAN CORPUSCULAR VOLUME 90 FL (80-99); MEAN PLATELET VOLUME 9.2 FL (7.4-10.4); MONOCYTES # (AUTO) 0.6 X 10^3 (0.0-1.0); MONOCYTES % (AUTO) 8 % (0-12); NEUTROPHILS # (AUTO) 4.5 X 10^3 (1.8-7.8); NEUTROPHILS % (AUTO) 65 % (42-75); PLATELET COUNT 161 10^3/uL (130-400); RED BLOOD COUNT 4.21 10^6/uL (4.35-5.85); RED CELL DISTRIBUTION WIDTH 13.7 % (10.0-14.5); WHITE BLOOD COUNT 6.9 10^3/uL (4.3-11.0)
[2017-07-29 05:07] LABS: ALANINE AMINOTRANSFERASE 15 U/L (0-55); ANION GAP 7 MMOL/L (5-14); ASPARTATE AMINO TRANSFERASE 20 U/L (5-34); BILIRUBIN,TOTAL 0.3 MG/DL (0.1-1.0); BLOOD UREA NITROGEN 10 MG/DL (7-18); BUN/CREATININE RATIO 11; CARBON DIOXIDE 21 MMOL/L (21-32); CHLORIDE 109 MMOL/L (98-107); GFR ESTIMATED > 60; GLUCOSE 259 MG/DL (70-105); PHOSPHORUS 2.8 MG/DL (2.3-4.7); POTASSIUM 3.9 MMOL/L (3.6-5.0); SODIUM 137 MMOL/L (135-145); TOTAL PROTEIN 5.4 GM/DL (6.4-8.2)
[2017-07-29] MEDS: inSUlin (REGULAR) HUMAN 1 UNIT/0.01 ML (CHARGE PER UNIT) SC SCH ×2 (05:57→11:53)
[2017-07-29] MEDS: inSUlin ASPART (NovoLOG) 1 UNIT/0.01 ML (CHARGE PER UNIT) SC SCH ×2 (05:57→11:54)
[2017-07-29] MEDS ORDERED: MULTIVIT W/MINERALS TAB (THERAGRAN M) PO SCH (07:00)
[2017-07-29] MEDS ORDERED: PANTOPRAZOLE 40 MG (PROTONIX) TAB PO SCH (07:00)
[2017-07-29] MEDS: LACTOBACILLUS Acidoph/Bulgar (LACTINEX/FLORANEX) TAB PO SCH (08:09)
[2017-07-29] MEDS: GABAPENTIN 100 MG (NEURONTIN) CAP PO SCH (08:09)
[2017-07-29] MEDS: buPROPion SR 150 MG (WELLBUTRIN SR) TAB PO SCH (08:09)
[2017-07-29] MEDS: NS IV 1000 ML 1,000 ML IV SCH (08:09)
[2017-07-29] MEDS: inSUlin DETERMIR 1 UNIT/0.01 ML (LEVEMIR) CHARGE PER UNIT SQ SCH (08:11)
[2017-07-29 08:31] VITALS: BP 138/64
[2017-07-29] MEDS ORDERED: AMPHETAMINE PO SCH (09:00)
[2017-07-29] MEDS ORDERED: DEXTROAMPHETAMINE PO SCH (09:00)
[2017-07-29] MEDS ORDERED: ESTRADIOL 1 MG TAB (ESTRACE) PO SCH (09:00)
[2017-07-29] MEDS ORDERED: [UNRECOGNIZED DRUG - OTHER] PO SCH (09:00)
--- NOTE | 2017-07-29 10:15 | Physical Therapy Daily Note ---
PT Daily Note-Current Subjective Patient is very agreeable for OOB activity. Pain Numeric Pain Scale: 0-No Pain Location: No Pain Reported Mental Status Patient Orientation: Person, Time, Situation Attachments: Hopper Catheter, IV Transfers Functional [place] Measure 0=Not Assessed/NA 4=Minimal Assistance 1=Total Assistance 5=Supervision or Setup 2=Maximal Assistance 6=Modified [place] 3=Moderate Assistance 7=Complete IndependenceIRFPAI Quality Coding Scale 6 Independent with activity with or without an assistive device 5 Patient requires set up or clean up by helper. Patient completes activity by themselves 4 Supervision or touching assist (CGA). [place] provide cues , steadying assist 3 The helper provides less than half the effort to complete the activity 2 The helper provides more than half the effort to complete the activity 1 Dependent. The helper does all the effort to complete an activity 7 Patient refused to complete or attempt activity 9 The patient did not perform the activity before the current illness or injury 88 Not attempted due to Medical conditions or safety concerns Transfers (B, C, W/C) (FIM): 5 Scootin Rollin Supine to/from Sit: 5 Sit to/from Stand: 5 Gait Training Gait (FIM): 5 Distance (FIM): 3=150 ft Distance: 350' Gait Level of Assist: 5 Gait Assistive Device: FWW safe and functional with FWW Exercises Seated Therapy Exercises: Ankle pumps, Long arc quads Seated Reps: 25 Assessment Patient returned to room and up in recliner with needs met. Patient voices she desires to return to home on this date. PT Correction Goals Window Glazier Goals PT Window Glazier Goals Time Frame: Aug 05, 2017 Transfers (B,C,W/C) (FIM): 7 Gait (FIM): 7 Gait distance (FIM): 3=150 ft Gait Level of Assist: 7 Gait Assistive Device: None PT Plan Treatment/Plan Treatment Plan: Continue Plan of Care Treatment Plan: Bed Mobility, Education, Functional Activity [place]rick, Functional Strength, Gait, Safety, Therapeutic Exercise, Transfers Treatment Duration: Aug 05, 2017 Frequency: 6 times per week Estimated Hrs Per Day: .25 hour per day Patient and/or Family Agrees t: Yes Time/GCodes Time In: 930 Time Out: 940 Total Billed Treatment Time: 10 Total Billed Treatment 1 visit FA 10 min CAILIN COLYE PT Jul 29, 2017 10:15
[2017-07-29] MEDS ORDERED: FLUC150T PO (10:59)
[2017-07-29] MEDS ORDERED: CEPH500C PO (10:59)
--- NOTE | 2017-07-29 11:02 | Discharge Instructions ---
Discharge [facility] Discharge Medications New, Converted or Re-Newed RX: Transmitted to Pharmacy New Medications: Cephalexin (Cephalexin) 500 Mg Capsule 500 MG PO TID for 7 Days, #30 CAP 0 Refills Fluconazole (Diflucan) 150 Mg Tablet 150 MG PO Q72H for 7 Days, #3 TAB Continued Medications: Alprazolam (Alprazolam) 0.5 Mg Tablet 0.5 MG PO DAILY PRN for ANXIETY, TAB Bupropion HCl (Bupropion Xl) 150 Mg Tab.er.24h 450 MG PO DAILY, TAB TAKES 3 (150MG) TABLETS Canagliflozin (Invokana) 100 Mg Tablet 100 MG PO DAILY, TAB Dextroamphetamine/Amphetamine (Amphetamine Salts 30 mg Tablet) 30 Mg Tablet 30 MG PO DAILY, TAB Escitalopram Oxalate (Escitalopram Oxalate) 20 Mg Tablet 20 MG PO DAILY, TAB Estradiol (Estradiol Tablet) 0.5 Mg Tablet 0.5 MG PO DAILY, TAB Gabapentin (Gabapentin) 100 Mg Capsule 100 MG PO BID, CAP Glucosamine HCl/Chondr Bentley A Na (Osteo Bi-Flex Caplet) 1 Each Tablet 1 TAB PO DAILY, TAB Ibuprofen (Advil) 200 Mg Tablet 400 MG PO TID PRN for PAIN-MILD, TAB TAKES 2 (200MG) TABLETS Insulin Aspart (Novolog Flexpen) 300 Units/3 Ml Solution 10-12 UNITS SQ TIDAC, EA Insulin Detemir (Levemir Flextouch) 100 Unit/1 Ml Insuln.pen 30 UNITS SQ BID, EA Lactobacillus Acidophilus (Probiotic) 1 Each Capsule 1 CAP PO DAILY, CAP Lisinopril (Lisinopril) 10 Mg Tablet 10 MG PO DAILY, TAB Multivitamin (Daily Multiple Vitamin) 1 Each Tablet 1 TAB PO DAILY, TAB Pantoprazole Sodium (Pantoprazole Sodium) 40 Mg Tablet.dr 40 MG PO DAILY, TAB Promethazine HCl (Promethazine Tablet) 25 Mg Tablet 25 MG PO Q4H PRN for NAUSEA/VOMITING-2ND LINE, TAB Tramadol HCl (Tramadol HCl) 50 Mg Tablet 50 MG PO Q6H PRN for PAIN-MODERATE, TAB Vit C/E/Zn/Coppr/Lutein/Zeaxan (Preservision Areds 2 Softgel) 1 Each Capsule 1 TAB PO BID, CAP Patient Instructions Patient Instructions Keep follow up appts as scheduled Goal/Follow Up Appt: Dr. Mendes, 08/02/17 at 10:40 am Return to The Hospital For: Fever >101 that does not decrease with tylenol, inability to void, severe pain not controlled by current medications, or contact employee relations representative provider with any questions or concerns Activity & Diet Discharge Diet: ADA Diet Activity as Tolerated: Yes Orders-Post D/C & Referrals Refer to outpatient PT for strength building PHUONG EPPS DO Jul 29, 2017 11:02
--- NOTE | 2017-07-29 11:05 | Discharge Summary ---
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 Anxiety Depression Obesity Discharge Summary-Simple/Stand Consultations Discharge Physical Examination Allergies: Coded Allergies: Sulfa (Sulfonamide Antibiotics) (Verified Allergy, Unknown, 08/26/14) morphine (Verified Adverse Reaction, Mild, NAUSEA, 05/19/16) Vitals & I&Os Vital Sign - Last 12Hours Date Time Temp Pulse Resp B/P (MAP) Pulse Ox O2 Delivery O2 Flow Rate FiO2 07/29/17 08:31 98.5 84 20 138/64 95 Room Air General Appearance: Alert, Oriented X3, Cooperative, No Acute Distress HEENT: Atraumatic, PERRLA, EOMI, Mucous Memb Moist/[place] Respiratory: Clear to Auscultation, Normal Air Movement Cardiovascular: Regular Rate, Normal S1, Normal S2, No Murmurs Abdominal: Normal Bowel Sounds, Soft, No Tenderness, No Hepatosplenomegaly, No Masses Extremities: No Clubbing, No Cyanosis, Normal Pulses Skin: No Rashes, No Significant Lesion Neuro: Normal Speech, Normal Tone, Cranial Nerves 3-12 NL Psych/Mental Status: Mental Status NL, Mood NL Hospital Course See final discharge diagnosis. Labs Microbiology 07/27/17 Blood Culture - Preliminary, Resulted No growth 07/27/17 Blood Culture - Preliminary, Resulted No growth 07/27/17 Urine Culture - Preliminary, Resulted NO GROWTH Laboratory Tests Test 07/27/17 18:50 07/27/17 19:05 07/27/17 21:05 07/27/17 23:59 Range/Units Glucometer 243 H 114 H 70-110 MG/DL White Blood Count 11.2 H 4.3-11.0 10^3/uL Red Blood Count 5.03 4.35-5.85 10^6/uL Hemoglobin 15.1 11.5-16.0 G/DL Hematocrit 44 35-52 % Mean Corpuscular Volume 87 80-99 FL Mean Corpuscular Hemoglobin 30 25-34 PG Mean Corpuscular Hemoglobin Concent 35 32-36 G/DL Red Cell Distribution Width 13.6 10.0-14.5 % Platelet Count 235 130-400 10^3/uL Mean Platelet Volume 9.7 7.4-10.4 FL Neutrophils (%) (Auto) 82 H 42-75 % Lymphocytes (%) (Auto) 11 L 12-44 % Monocytes (%) (Auto) 6 0-12 % Eosinophils (%) (Auto) 1 0-10 % Basophils (%) (Auto) 0 0-10 % Neutrophils # (Auto) 9.2 H 1.8-7.8 X 10^3 Lymphocytes # (Auto) 1.2 1.0-4.0 X 10^3 Monocytes # (Auto) 0.7 0.0-1.0 X 10^3 Eosinophils # (Auto) 0.1 0.0-0.3 10^3/uL Basophils # (Auto) 0.0 0.0-0.1 10^3/uL Prothrombin Time 12.9 12.2-14.7 SEC INR Comment 1.0 0.8-1.4 Activated Partial Thromboplast Time 24 24-35 SEC Urine Color DAISY H Urine Clarity CLEAR Urine pH 5 5-9 Urine Specific [place] 1.015 L 1.016-1.022 Urine Protein 1+ H NEGATIVE Urine Glucose (UA) 4+ H NEGATIVE Urine Ketones NEGATIVE NEGATIVE Urine Nitrite POSITIVE H NEGATIVE Urine Bilirubin NEGATIVE NEGATIVE Urine Urobilinogen NORMAL NORMAL MG/DL Urine Leukocyte Esterase NEGATIVE NEGATIVE Urine RBC (Auto) NEGATIVE NEGATIVE Urine RBC NONE /HPF Urine WBC NONE /HPF Urine Squamous Epithelial Cells 0-2 /HPF Urine Crystals NONE /LPF Urine Bacteria TRACE /HPF Urine Casts NONE /LPF Urine Mucus NEGATIVE /LPF Urine Culture Indicated YES Sodium Level 132 L 135-145 MMOL/L Potassium Level 3.9 3.6-5.0 MMOL/L Chloride Level 99 98-107 MMOL/L Carbon Dioxide Level 20 L 21-32 MMOL/L Anion Gap 13 5-14 MMOL/L Blood Urea Nitrogen 33 H 7-18 MG/DL Creatinine 1.95 H 0.60-1.30 MG/DL Estimat Glomerular Filtration Rate 26 BUN/Creatinine Ratio 17 Glucose Level 244 H 70-105 MG/DL Lactic Acid Level 4.08 *H 1.51 0.50-2.00 MMOL/L Calcium Level 9.2 8.5-10.1 MG/DL Total Bilirubin 0.4 0.1-1.0 MG/DL Aspartate Amino Transf (AST/SGOT) 27 5-34 U/L Alanine Aminotransferase (ALT/SGPT) 18 0-55 U/L Alkaline Phosphatase 143 H 40-136 U/L Troponin I < 0.30 <0.30 NG/ML Total Protein 7.0 6.4-8.2 GM/DL Albumin 3.9 3.2-4.5 GM/DL Test 07/28/17 04:25 07/28/17 10:20 07/28/17 16:28 07/28/17 20:39 Range/Units White Blood Count 8.1 4.3-11.0 10^3/uL Red Blood Count 4.47 4.35-5.85 10^6/uL Hemoglobin 13.5 11.5-16.0 G/DL Hematocrit 40 35-52 % Mean Corpuscular Volume 88 80-99 FL Mean Corpuscular Hemoglobin 30 25-34 PG Mean Corpuscular Hemoglobin Concent 34 32-36 G/DL Red Cell Distribution Width 13.6 10.0-14.5 % Platelet Count 178 130-400 10^3/uL Mean Platelet Volume 9.5 7.4-10.4 FL Neutrophils (%) (Auto) 68 42-75 % Lymphocytes (%) (Auto) 21 12-44 % Monocytes (%) (Auto) 8 0-12 % Eosinophils (%) (Auto) 3 0-10 % Basophils (%) (Auto) 0 0-10 % Neutrophils # (Auto) 5.5 1.8-7.8 X 10^3 Lymphocytes # (Auto) 1.7 1.0-4.0 X 10^3 Monocytes # (Auto) 0.7 0.0-1.0 X 10^3 Eosinophils # (Auto) 0.2 0.0-0.3 10^3/uL Basophils # (Auto) 0.0 0.0-0.1 10^3/uL Sodium Level 137 135-145 MMOL/L Potassium Level 3.8 3.6-5.0 MMOL/L Chloride Level 109 H 98-107 MMOL/L Carbon Dioxide Level 18 L 21-32 MMOL/L Anion Gap 10 5-14 MMOL/L Blood Urea Nitrogen 23 H 7-18 MG/DL Creatinine 1.03 0.60-1.30 MG/DL Estimat Glomerular Filtration Rate 54 BUN/Creatinine Ratio 22 Glucose Level 202 H 70-105 MG/DL Calcium Level 7.8 L 8.5-10.1 MG/DL Phosphorus Level 3.6 2.3-4.7 MG/DL Magnesium Level 2.4 1.8-2.4 MG/DL Total Bilirubin 0.3 0.1-1.0 MG/DL Aspartate Amino Transf (AST/SGOT) 24 5-34 U/L Alanine Aminotransferase (ALT/SGPT) 16 0-55 U/L Alkaline Phosphatase 116 40-136 U/L Total Protein 5.7 L 6.4-8.2 GM/DL Albumin 3.2 3.2-4.5 GM/DL Glucometer 208 H 284 H 147 H 70-110 MG/DL Test 07/29/17 04:40 07/29/17 04:51 07/29/17 10:45 Range/Units White Blood Count 6.9 4.3-11.0 10^3/uL Red Blood Count 4.21 L 4.35-5.85 10^6/uL Hemoglobin 12.8 11.5-16.0 G/DL Hematocrit 38 35-52 % Mean Corpuscular Volume 90 80-99 FL Mean Corpuscular Hemoglobin 30 25-34 PG Mean Corpuscular Hemoglobin Concent 34 32-36 G/DL Red Cell Distribution Width 13.7 10.0-14.5 % Platelet Count 161 130-400 10^3/uL Mean Platelet Volume 9.2 7.4-10.4 FL Neutrophils (%) (Auto) 65 42-75 % Lymphocytes (%) (Auto) 23 12-44 % Monocytes (%) (Auto) 8 0-12 % Eosinophils (%) (Auto) 4 0-10 % Basophils (%) (Auto) 0 0-10 % Neutrophils # (Auto) 4.5 1.8-7.8 X 10^3 Lymphocytes # (Auto) 1.6 1.0-4.0 X 10^3 Monocytes # (Auto) 0.6 0.0-1.0 X 10^3 Eosinophils # (Auto) 0.3 0.0-0.3 10^3/uL Basophils # (Auto) 0.0 0.0-0.1 10^3/uL Prothrombin Time 13.0 12.2-14.7 SEC INR Comment 1.0 0.8-1.4 Activated Partial Thromboplast Time 27 24-35 SEC Sodium Level 137 135-145 MMOL/L Potassium Level 3.9 3.6-5.0 MMOL/L Chloride Level 109 H 98-107 MMOL/L Carbon Dioxide Level 21 21-32 MMOL/L Anion Gap 7 5-14 MMOL/L Blood Urea Nitrogen 10 7-18 MG/DL Creatinine 0.90 0.60-1.30 MG/DL Estimat Glomerular Filtration Rate > 60 BUN/Creatinine Ratio 11 Glucose Level 259 H 70-105 MG/DL Calcium Level 8.0 L 8.5-10.1 MG/DL Phosphorus Level 2.8 2.3-4.7 MG/DL Magnesium Level 2.0 1.8-2.4 MG/DL Total Bilirubin 0.3 0.1-1.0 MG/DL Aspartate Amino Transf (AST/SGOT) 20 5-34 U/L Alanine Aminotransferase (ALT/SGPT) 15 0-55 U/L Alkaline Phosphatase 135 40-136 U/L Total Protein 5.4 L 6.4-8.2 GM/DL Albumin 3.0 L 3.2-4.5 GM/DL Glucometer 255 H 218 H 70-110 MG/DL Discharge Instructions to patient/family Please see electronic discharge instructions given to patient. Discharge Medications Reviewed and agree with Discharge Medication list on patient's Discharge Instruction sheet Clinical Quality Measures DVT/VTE Risk/Contraindication: Risk Factor Score Per Nursin RFS Level Per Nursing on Admit: 3=High PHUONG EPPS DO Jul 29, 2017 11:05
[2017-07-29 13:00] VITALS: BP 138/64
[2017-07-31] MEDS ORDERED: INFLUENZA TRIvalent 2017-2018 0.5 ML/45 MCG SYR IM ONE (07:15)
== END 2017-07-29 13:50 | disposition home or self-care (01) | DRG 871 ==
LOC: EDUNIT# 18:44 → ER 18:45 → ICU 21:08 → 4TH 07-28 12:00
PROVIDERS: ADMIT Family Medicine; ATTEND Family Medicine
PROC: 02HV33Z Insertion of Infusion Device into Superior Vena Cava, Percutaneous Approach (ICD-10-PCS; principal; 2017-07-27)
DX: A41.9 Sepsis, unspecified organism (principal); R65.21 Severe sepsis with septic shock; N39.0 Urinary tract infection, site not specified; N17.9 Acute kidney failure, unspecified; E86.0 Dehydration; E11.9 Type 2 diabetes mellitus without complications; I10 Essential (primary) hypertension; E66.9 Obesity, unspecified; Z68.41 Body mass index [BMI] 40.0-44.9, adult; L40.50 Arthropathic psoriasis, unspecified; F32.9 Major depressive disorder, single episode, unspecified; F41.9 Anxiety disorder, unspecified; K21.9 Gastro-esophageal reflux disease without esophagitis; J30.2 Other seasonal allergic rhinitis; H26.9 Unspecified cataract; Z79.4 Long term (current) use of insulin; Z79.899 Other long term (current) drug therapy; Z87.891 Personal history of nicotine dependence; Z91.81 History of falling
CPT/HCPCS: 36415; 51702; 70450; 71010; 80053; 81000; 82962; 83605; 83735; 84100; 84484; 85025; 85610; 85730; 87040; 87088; 93005; 96361; 96365

== ENCOUNTER 2017-08-15 18:15 | Emergency (ER) | payer MEDICARE ==
[~2017-08-15] VITALS: Ht 165.1 cm; Wt 120.7 kg
[~2017-08-15 18:15] MED LIST changes: +ALPR0.5T7 PO; +ESCI20TA45 PO; +ESTR0.5T PO; +FLUC150T PO; +GABA-486 PO; +IBUP-30 PO; +MULT-35 PO; +PANT40TA3 PO; +PROM25TA14 PO
[2017-08-15] MEDS ORDERED: NS IV 1000 ML 1,000 ML IV ONE (19:12)
--- NOTE | 2017-08-15 19:19 | ED Fall/Injury ---
General Chief Complaint: Trauma-Non Activation Stated Complaint: FALL Nursing Triage Note: TO ED PER W/C WITH WHO REPORTS HAS BEEN FALLING MORE. ABRASION TO R KNEE AND R ELBOW. VALENTINO REPORTS FELL AROUND 230PM TODAY. Source: patient, family (ex-) Exam Limitations: no limitations History of Present Illness Time seen by provider: 19:05 Initial Comments Patient is brought to the ER by Hitesh conveyance with her ex- by chief complaint of having 2 falls today. She was in the hospital approximately week ago for septic UTI. She says she was feeling better until about 2 days ago which progressively started feeling weak again specially on standing. She says she feels dizzy and lightheaded and then doesn't quite fall unconscious but does fall to her knees like a sack of potatoes she says. Denies striking her head nor being on blood thinners. She does take blood pressure medicine lisinopril. She says she's been taking her medications as prescribed. She also is on insulin for her diabetes. She says her blood sugars been pretty good last week. She does not check her blood pressure. She denies any chest pain shortness of breath cough dysuria, nausea, vomiting, diarrhea. She was discharged home on Keflex. Urine culture shows mixed gram-positive beatriz and yeast. Allergies and Home Medications Allergies Coded Allergies: Sulfa (Sulfonamide Antibiotics) (Verified Allergy, Unknown, 08/26/14) morphine (Verified Adverse Reaction, Mild, NAUSEA, 05/19/16) Home Medications Alprazolam 0.5 Mg Tablet, 0.5 MG PO DAILY PRN for ANXIETY, (Reported) Bupropion HCl 150 Mg Tab.er.24h, 450 MG PO DAILY, (Reported) TAKES 3 (150MG) TABLETS Canagliflozin 100 Mg Tablet, 100 MG PO DAILY, (Reported) Dextroamphetamine/Amphetamine 30 Mg Tablet, 30 MG PO DAILY, (Reported) Escitalopram Oxalate 20 Mg Tablet, 20 MG PO DAILY, (Reported) Estradiol 0.5 Mg Tablet, 0.5 MG PO DAILY, (Reported) Fluconazole 150 Mg Tablet, 150 MG PO Q72H for 7 Days, #3 Prescribed by: PHUONG EPPS on 07/29/17 1059 Gabapentin 100 Mg Capsule, 100 MG PO BID, (Reported) Glucosamine HCl/Chondr Bentley A Na 1 Each Tablet, 1 TAB PO DAILY, (Reported) Ibuprofen 200 Mg Tablet, 400 MG PO TID PRN for PAIN-MILD, (Reported) TAKES 2 (200MG) TABLETS Insulin Aspart 300 Units/3 Ml Solution, 10-12 UNITS SQ TIDAC, (Reported) Insulin Detemir 100 Unit/1 Ml Insuln.pen, 30 UNITS SQ BID, (Reported) Lactobacillus Acidophilus 1 Each Capsule, 1 CAP PO DAILY, (Reported) Lisinopril 10 Mg Tablet, 10 MG PO DAILY, (Reported) Multivitamin 1 Each Tablet, 1 TAB PO DAILY, (Reported) Pantoprazole Sodium 40 Mg Tablet.dr, 40 MG PO DAILY, (Reported) Promethazine HCl 25 Mg Tablet, 25 MG PO Q4H PRN for NAUSEA/VOMITING-2ND LINE, ( Reported) Tramadol HCl 50 Mg Tablet, 50 MG PO Q6H PRN for PAIN-MODERATE, (Reported) Vit C/E/Zn/Coppr/Lutein/Zeaxan 1 Each Capsule, 1 TAB PO BID, (Reported) Constitutional: No chills, No diaphoresis, No fever, No malaise Eyes: Denies Blindness, Denies Blurred Vision Ears, Nose, Mouth, Throat: denies ear pain, denies ear discharge Respiratory: No cough, No short of breath Cardiovascular: No chest pain, No palpitations Gastrointestinal: No abdominal pain, No constipation, No diarrhea Genitourinary: No see HPI, No discharge, No dysuria Musculoskeletal: No back pain, No joint pain Skin: No pruritus, No rash Past [id number]-[id number]-[id number] Hx Patient Social History Alcohol Use: Denies Use Recreational Drug Use: No Smoking Status: Current Someday Smoker Type Used: Cigarettes Former Smoker, Quit: Feb 18, 2016 2nd Hand Smoke Exposure: Yes Recent Foreign Travel: No Contact w/Someone Who Travel: No Recent Infectious Disease Expo: No Recent Hopitalizations: No Immunizations Up To Date Tetanus Booster (TDap): Less than 5yrs PED Vaccines UTD: No Date of Pneumonia Vaccine: Aug 13, 2015 Date of Influenza Vaccine: Jul 31, 2016 Seasonal Allergies Seasonal Allergies: Yes Surgeries History of Surgeries: Yes (incisional hernia repair x2, gastric bypass then reversed, bilat knee scope) Surgeries: Abdominal, Section, Hysterectomy Respiratory History of Respiratory Disorde: No Cardiovascular History of Cardiac Disorders: Yes Cardiac Disorders: 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 Neurological History of Neurological Disord: No 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 System Hx 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 Disorders: No Sexually Transmitted Disease: No Genitourinary History of Genitourinary Disor: No Gastrointestinal History of Gastrointestinal Di: Yes Gastrointestinal Disorders: Gastroesophageal Reflux Musculoskeletal History of Musculoskeletal Dis: Yes Musculoskeletal Disorders: Arthritis Endocrine History of Endocrine Disorders: Yes Endocrine Disorders: Diabetes, Insulin dep HEENT History of HEENT Disorders: Yes HEENT Disorders: Cataract Cancer History of Cancer: No Psychosocial History of Psychiatric Problem: Yes Behavioral Health Disorders: Anxiety Integumentary History of Skin or Integumenta: Yes Skin/Integumentary Disorders: Psoriasis Blood Transfusions History of Blood Disorders: No Family Medical History Family Medial History: AIDS Alcoholism Arthritis Asthma Cataracts Coronary thrombosis Diabetes mellitus Drug abuse Glaucoma Psychosocial problem Respiratory disorder No Family History of: Trinity's disease Alzheimer's disease Aphasia Cancer of mouth Cardiovascular disease Colon cancer Completed stroke Congenital disease Congenital heart disease Cystic fibrosis Deafness or hearing loss Dementia Dysphasia Fibrocystic disease of breast Gastroenteritis Headache disorder Hypercholesterolemia 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 Infertility Kidney disease Myocardial infarction Neoplasm Not obtainable due to adoption Osteoporosis Parkinson's disease Prostate cancer Seizure disorder Severe allergy Thyroid disease Tuberculosis Visual disorder Physical Exam Vital Signs Vital Sign - Last 12Hours 08/15/17 18:26 Temp 98.3 Pulse 99 Resp 18 B/P (MAP) 133/74 Capillary Refill : Less Than 3 Seconds General Appearance: WD/WN, mild distress HEENT: PERRL/EOMI, pharynx normal Neck: non-tender, normal inspection Cardiovascular: normal peripheral pulses, regular rate, rhythm, no edema Respiratory: chest non-tender, lungs clear, normal breath sounds Peripheral Pulses: 2+ Dorsalis Pedis (R), 2+ Left Dors-Pedis (L) Gastrointestinal: normal bowel sounds, non tender, soft Extremities: normal range of motion, non-tender, no pedal edema, no calf tenderness, normal capillary refill, other (abrasion and tenderness over right knee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: alert, normal mood/affect, oriented x 3 Skin: normal color, warm/dry, other (abrasion right elbow and right knee) Amanda Coma Score Best Eye Response: (4) Open Spontaneously Best Verbal Response: (5) Oriented Best Motor Response: (6) Obeys Commands Amanda Total: 15 Progress/Results/Core Measures Results/Orders Lab Results Laboratory Tests Test 08/15/17 19:25 08/15/17 20:00 08/15/17 20:50 Range/Units White Blood Count 10.7 4.3-11.0 10^3/uL Red Blood Count 4.80 4.35-5.85 10^6/uL Hemoglobin 14.4 11.5-16.0 G/DL Hematocrit 42 35-52 % Mean Corpuscular Volume 88 80-99 FL Mean Corpuscular Hemoglobin 30 25-34 PG Mean Corpuscular Hemoglobin Concent 34 32-36 G/DL Red Cell Distribution Width 13.9 10.0-14.5 % Platelet Count 192 130-400 10^3/uL Mean Platelet Volume 8.8 7.4-10.4 FL Neutrophils (%) (Auto) 83 H 42-75 % Lymphocytes (%) (Auto) 9 L 12-44 % Monocytes (%) (Auto) 6 0-12 % Eosinophils (%) (Auto) 1 0-10 % Basophils (%) (Auto) 0 0-10 % Neutrophils # (Auto) 8.9 H 1.8-7.8 X 10^3 Lymphocytes # (Auto) 0.9 L 1.0-4.0 X 10^3 Monocytes # (Auto) 0.7 0.0-1.0 X 10^3 Eosinophils # (Auto) 0.2 0.0-0.3 10^3/uL Basophils # (Auto) 0.0 0.0-0.1 10^3/uL Prothrombin Time 13.0 12.2-14.7 SEC INR Comment 1.0 0.8-1.4 Activated Partial Thromboplast Time 25 24-35 SEC Sodium Level 127 L 135-145 MMOL/L Potassium Level 4.2 3.6-5.0 MMOL/L Chloride Level 93 L 98-107 MMOL/L Carbon Dioxide Level 23 21-32 MMOL/L Anion Gap 11 5-14 MMOL/L Blood Urea Nitrogen 20 H 7-18 MG/DL Creatinine 0.99 0.60-1.30 MG/DL Estimat Glomerular Filtration Rate 56 BUN/Creatinine Ratio 20 Glucose Level 419 *H 70-105 MG/DL Calcium Level 9.5 8.5-10.1 MG/DL Magnesium Level 1.7 L 1.8-2.4 MG/DL Total Bilirubin 0.4 0.1-1.0 MG/DL Aspartate Amino Transf (AST/SGOT) 14 5-34 U/L Alanine Aminotransferase (ALT/SGPT) 16 0-55 U/L Alkaline Phosphatase 131 40-136 U/L Troponin I < 0.30 <0.30 NG/ML Total Protein 6.7 6.4-8.2 GM/DL Albumin 3.7 3.2-4.5 GM/DL Lactic Acid Level 1.66 0.50-2.00 MMOL/L Urine Color YELLOW Urine Clarity CLEAR Urine pH 5 5-9 Urine Specific Norton 1.010 L 1.016-1.022 Urine Protein NEGATIVE NEGATIVE Urine Glucose (UA) 4+ H NEGATIVE Urine Ketones 1+ H NEGATIVE Urine Nitrite NEGATIVE NEGATIVE Urine Bilirubin NEGATIVE NEGATIVE Urine Urobilinogen NORMAL NORMAL MG/DL Urine Leukocyte Esterase NEGATIVE NEGATIVE Urine RBC (Auto) NEGATIVE NEGATIVE Urine RBC NONE /HPF Urine WBC 0-2 /HPF Urine Squamous Epithelial Cells 10-25 H /HPF Urine Crystals NONE /LPF Urine Bacteria TRACE /HPF Urine Casts NONE /LPF Urine Mucus NEGATIVE /LPF Urine Culture Indicated NO My Orders Orders - MARIO GARCIA Cbc With Automated Diff (08/15/17 19:12) Comprehensive Metabolic Panel (08/15/17 19:12) Magnesium (08/15/17 19:12) Protime With Inr (08/15/17 19:12) Partial Thromboplastin Time (08/15/17 19:12) Troponin I (08/15/17 19:12) Ua Culture If Indicated (08/15/17 19:12) Chest Pa/Lat (2 View) (08/15/17 19:12) Knee, Right, 3 Views (08/15/17 19:12) Saline Lock/Iv-Start (08/15/17 19:12) Ns Iv 1000 Ml (Sodium Chloride 0.9%) (08/15/17 19:12) Orthostatic Vital Signs (08/15/17 19:12) Ekg Tracing (08/15/17 19:12) Continuous Ekg Monitoring (08/15/17 19:12) Lactic Acid Analyzer (08/15/17 19:19) Insulin (Regular) Human (Humulin R (Per (08/15/17 20:15) Magnesium Oxide Tablet (Mag Ox Tablet) (08/15/17 20:15) Medications Given in ED Current Medications Medications Dose Ordered Sig/Minal Route Start Time Stop Time Status Last Admin Dose Admin Insulin Human Regular 10 unit ONCE ONCE SC 10/16/17 20:15 08/15/17 20:16 DC 08/15/17 21:05 10 UNIT Magnesium Oxide 400 mg ONCE ONCE PO 08/15/17 20:15 08/15/17 20:16 DC 08/15/17 21:05 400 MG Sodium Chloride 1,000 ml @ 0 mls/hr Q0M ONCE IV 08/15/17 19:12 08/15/17 19:16 DC 08/15/17 20:07 1,000 MLS/HR Vital Signs/I&O Vital Sign - Last 12Hours 08/15/17 08/15/17 18:26 19:50 Temp 98.3 Pulse 99 97 99 101 Resp 18 B/P (MAP) 133/74 Intake and Output 08/16/17 00:00 Intake Total 1000 ml Balance 1000 ml Blood Pressure Mean: 93 ECG Initial ECG Impression Date: Aug 15, 2017 Initial ECG Impression Time: 19:19 Initial ECG Rate: 91 Initial ECG Rhythm: Normal Sinus Initial ECG Impression: Normal, Nonspecific Changes Initial ECG Comparisson: No Previous ECG Available Comment No T-wave elevation or depression. Diagnostic Imaging Diagonstic Imaging: Xray Plain Films/CT/US/NM/MRI: chest Comments VIA [facility]. [place], [place] NAME: JANEEN MAC [facility] REC#: [id number] PT STATUS: REG ER : 1955 PHYSICIAN: MARIO GARCIA MD ADMIT DATE: 08/15/17/ER Draft Date of Exam:08/15/17 CHEST PA/LAT (2 VIEW) Clinical indication: Patient with shortness of breath for a couple of days. Exam: Chest x-ray PA and lateral views. Comparison: Portable chest x-ray dated 07/28/2017. Findings: Again seen low lung volumes with slight improved aeration of both lungs. There is right discoid basilar atelectasis. There is minimal atelectasis left lung base. There is no interval lung infiltrate seen. There is no pleural effusion or pneumothorax. Stable slight elevation of the right hemidiaphragm. Pulmonary vasculature and cardiac silhouettes within normal limits. Again seen surgical clips overlying left upper quadrant. There are hypertrophic spurs involving the thoracic spine. Impression: 1: There is slight improved aeration of both lungs with continued mild bibasilar atelectasis (right side more than the left). 2: Otherwise, there is no definite radiographic evidence of acute cardiopulmonary process. Dictated on workstation # [id number] Dict: 08/15/172017 Trans: 08/15/172021 [facility] [id number] Interpreted by: BALTA BARBOSA MD Electronically signed by: Reviewed: Reviewed by Me Diagonstic Imaging: Xray Plain Films/CT/US/NM/MRI: knee (r) Comments No acute osseous abnormalities. VIA [facility], [facility]. [place], [place] NAME: JANEEN MAC [facility] REC#: [id number] PT STATUS: REG ER : 1955 PHYSICIAN: MARIO GARCIA MD ADMIT DATE: 08/15/17/ER Draft Date of Exam:08/15/17 KNEE, RIGHT, 3 VIEWS Clinical indication: Patient status post fall. Exam: X-ray of the right knee, 3 views. Comparison: None. Findings: There is no evidence of acute fracture or dislocation. There is no knee effusion. There is moderately hypertrophic spurs involving the medial compartment and minimal spurring of the patellofemoral compartment. There is moderate medial compartment narrowing on these nonweightbearing views. Impression: 1: There is no acute fracture or dislocation. 2: Degenerative disease of the right knee. Dictated on workstation # [id number] Dict: 08/15/172036 Trans: 08/15/172040 [facility] [id number] Interpreted by: BALTA BARBOSA MD Electronically signed by: Reviewed: Reviewed by Me Departure Impression Impression: Primary Impression: Fall Qualified Codes: W19.XXXA - Unspecified fall, initial encounter Disposition: 01 HOME, SELF-CARE Condition: Stable Departure-Patient Inst. Decision time for Depature: 22:47 Referrals: REJI ROY MD (PCP/Family) Primary Care Physician Patient Instructions: Preventing Falls in the Older Adult Add. Discharge Instructions: Take your time when changing positions from sitting to standing. Standstill for 5-10 seconds before starting walking first thing in the morning. Follow up with your primary care physician within the next 2 weeks. Return to the ER. Have nausea, weakness fever or chills. All discharge instructions reviewed with patient and/or family. Voiced understanding. Copy Copies To 1: AHMET CHRIS TITUS J Aug 15, 2017 19:19
[2017-08-15 19:35] LABS: BASOPHILS % (AUTO) 0 % (0-10); EOSINOPHILS # (AUTO) 0.2 10^3/uL (0.0-0.3); EOSINOPHILS % (AUTO) 1 % (0-10); LYMPHOCYTES # (AUTO) 0.9 X 10^3 (1.0-4.0); LYMPHOCYTES % (AUTO) 9 % (12-44); MEAN CORPUSCULAR HEMOGLOBIN 30 PG (25-34); MEAN CORPUSCULAR HGB CONC 34 G/DL (32-36); MEAN CORPUSCULAR VOLUME 88 FL (80-99); MEAN PLATELET VOLUME 8.8 FL (7.4-10.4); MONOCYTES # (AUTO) 0.7 X 10^3 (0.0-1.0); MONOCYTES % (AUTO) 6 % (0-12); NEUTROPHILS # (AUTO) 8.9 X 10^3 (1.8-7.8); NEUTROPHILS % (AUTO) 83 % (42-75); PLATELET COUNT 192 10^3/uL (130-400); RED CELL DISTRIBUTION WIDTH 13.9 % (10.0-14.5); WHITE BLOOD COUNT 10.7 10^3/uL (4.3-11.0)
[2017-08-15 19:55] LABS: ALANINE AMINOTRANSFERASE 16 U/L (0-55); ALBUMIN 3.7 GM/DL (3.2-4.5); ANION GAP 11 MMOL/L (5-14); ASPARTATE AMINO TRANSFERASE 14 U/L (5-34); BILIRUBIN,TOTAL 0.4 MG/DL (0.1-1.0); BLOOD UREA NITROGEN 20 MG/DL (7-18); BUN/CREATININE RATIO 20; CALCIUM 9.5 MG/DL (8.5-10.1); CARBON DIOXIDE 23 MMOL/L (21-32); CHLORIDE 93 MMOL/L (98-107); CREATININE SERUM 0.99 MG/DL (0.60-1.30); GFR ESTIMATED 56; MAGNESIUM 1.7 MG/DL (1.8-2.4); POTASSIUM 4.2 MMOL/L (3.6-5.0); SODIUM 127 MMOL/L (135-145); TOTAL PROTEIN 6.7 GM/DL (6.4-8.2)
[2017-08-15 19:56] LABS: GLUCOSE 419 MG/DL (70-105)
[2017-08-15 20:01] LABS: TROPONIN I < 0.30 NG/ML (<0.30)
[2017-08-15] MEDS ORDERED: inSUlin (REGULAR) HUMAN 1 UNIT/0.01 ML (CHARGE PER UNIT) SC ONE (20:15)
[2017-08-15] MEDS ORDERED: MAGNESIUM OXIDE (MAG-OX)400 MG TAB PO ONE (20:15)
--- NOTE | 2017-08-15 20:22 | Diagnostic Imaging Report ---
Clinical indication: Patient with shortness of breath for a couple of days. Exam: Chest x-ray PA and lateral views. Comparison: Portable chest x-ray dated 07/28/2017. Findings: Again seen low lung volumes with slight improved aeration of both lungs. There is right discoid basilar atelectasis. There is minimal atelectasis left lung base. There is no interval lung infiltrate seen. There is no pleural effusion or pneumothorax. Stable slight elevation of the right hemidiaphragm. Pulmonary vasculature and cardiac silhouettes within normal limits. Again seen surgical clips overlying left upper quadrant. There are hypertrophic spurs involving the thoracic spine. Impression: 1: There is slight improved aeration of both lungs with continued mild bibasilar atelectasis (right side more than the left). 2: Otherwise, there is no definite radiographic evidence of acute cardiopulmonary process. Dictated by: Dictated on workstation # [id number]
--- NOTE | 2017-08-15 20:41 | Diagnostic Imaging Report ---
Clinical indication: Patient status post fall. Exam: X-ray of the right knee, 3 views. Comparison: None. Findings: There is no evidence of acute fracture or dislocation. There is no knee effusion. There is moderately hypertrophic spurs involving the medial compartment and minimal spurring of the patellofemoral compartment. There is moderate medial compartment narrowing on these nonweightbearing views. Impression: 1: There is no acute fracture or dislocation. 2: Degenerative disease of the right knee. Dictated by: Dictated on workstation # [id number]
[2017-08-15 20:58] LABS: BILIRUBIN,URINE NEGATIVE (NEGATIVE); KETONES,URINE 1+ (NEGATIVE); LEUKOCYTE ESTERASE ,URINE NEGATIVE (NEGATIVE); NITRITE,URINE NEGATIVE (NEGATIVE); PH,URINE 5 (5-9); PROTEIN,URINE NEGATIVE (NEGATIVE); UROBILINOGEN,URINE NORMAL (NORMAL)
[2017-08-15 21:04] LABS: WBC,URINE 0-2 /HPF
[2017-08-15 22:57] VITALS: BP 126/76
--- OUTSIDE RECORDS SUMMARY | 2017-08-16 06:21 | XMS REPORT ---
Author Author VASILE PORTILLO Organization [facility] Address [address] [place] [address] Care Team Providers Care Facsimile Operator Name Role Phone VASILE PORTILLO Unavailable PROBLEMS Type Condition ICD9-CM Code [id number] Code Onset Dates Condition Status SNOMED Code Problem Arthritis M19.90 Active 4599768 Problem Psoriatic arthritis L40.50 Active 473389294 Problem terminal manager 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 Active 098245130 Problem Attention-deficit hyperactivity disorder, predominantly hyperactive type F90.1 Active 475315449 Problem PTSD (post-traumatic stress disorder) F43.10 Active 80991871 Problem Major depressive disorder, recurrent, moderate F33.1 Active 59494768 Problem Other specified 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 Active 968956705 Problem Eating disorder F50.9 Active 76599670 Problem Attention-deficit hyperactivity disorder, combined type F90.2 Active 26951390 Problem Diabetes E11.9 Active 04256912 Problem Psoriasis L40.9 Active 9481023 Problem Tobacco abuse Z72.0 Active 72665119 Problem Generalized anxiety disorder F41.1 Active 62749617 Problem 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 I10 Active 64143803 Problem Major depressive disorder, recurrent episode, unspecified severity F33.9 Active 57660675 Problem Back pain M54.9 Active 045728940 ALLERGIES No Information SOCIAL HISTORY Never Assessed PLAN OF CARE Activity Details Follow Up 2 Weeks Reason: VITAL SIGNS MEDICATIONS Unknown Medications RESULTS No Results PROCEDURES Procedure Date Ordered Result Body Site [facility] VISIT MENTAL HEALTH ESTAB PT January 04, 2017 Psychotherapy, patient &/family, 30 minutes, established patient January 04, 2017 IMMUNIZATIONS No Known Immunizations MEDICAL (GENERAL) HISTORY [...] veinous reflux Surgical History Left Knee SOA-Dr. Melendrez-[facility] 05/19/16 Hospitalization History surgeries Hospitalization History Left Knee DAX--Dr. Melendrez--[facility] Hospitalization History Septic shock, UTI-[facility] 07/27/17
--- OUTSIDE RECORDS SUMMARY | 2017-08-16 06:22 | XMS REPORT ---
Author Author LAURA Roa Organization [facility] Address [address] [place] [address] Care Team Providers Care Merchandise Executive Name Role Phone Janina LAURA Unavailable PROBLEMS Type Condition ICD9-CM Code PFL22-GD Code Onset Dates Condition Status SNOMED Code Problem Psoriatic arthritis L40.50 Active 742119636 Problem Major depressive disorder, recurrent, moderate F33.1 Active 53860388 Problem Other specified 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 Active 439537982 Problem Type 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 Active 20787115 Problem Essential hypertension I10 Active 54345238 Problem Attention-deficit hyperactivity disorder, predominantly hyperactive type F90.1 Active 063584618 Problem Attention-deficit hyperactivity disorder, combined type F90.2 Active 25432029 Problem PTSD (post-traumatic stress disorder) F43.10 Active 01537458 Problem Eating disorder F50.9 Active 99887461 Problem Generalized anxiety disorder F41.1 Active 16618012 Problem Major depressive disorder, recurrent episode, unspecified severity F33.9 Active 21816731 Problem Diabetes E11.9 Active 30925698 Problem 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 I10 Active 95277221 Problem Back pain M54.9 Active 526920115 Problem Psoriasis L40.9 Active 0641709 Problem Arthritis M19.90 Active 4963127 Problem Tobacco abuse Z72.0 Active 54614239 Problem intermediate 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 Active 406495893 ALLERGIES No Information SOCIAL HISTORY Never Assessed [...] veinous reflux Surgical History Left Knee SOA-Dr. Melendrez-[facility] 05/19/16 Hospitalization History surgeries Hospitalization History Left Knee BALAJIA--Dr. Melendrez--[facility] Hospitalization History Septic shock, UTI-[facility] 07/27/17
--- OUTSIDE RECORDS SUMMARY | 2017-08-16 06:23 | XMS REPORT ---
Author Author Janina LAURA Organization [facility] Address [address] [place] [address] Care Team Providers Care Immigration Guard Name Role Phone carmencitaLAURA [place] Unavailable PROBLEMS Type Condition ICD9-CM Code [id number] Code Onset Dates Condition Status SNOMED Code Problem Psoriatic arthritis L40.50 Active 428946904 Problem Major depressive disorder, recurrent, moderate F33.1 Active 06673070 Problem Other specified 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 Active 033033710 Problem Type 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 Active 16403580 Problem Essential hypertension I10 Active 19878787 Problem Attention-deficit hyperactivity disorder, predominantly hyperactive type F90.1 Active 789511298 Problem Attention-deficit hyperactivity disorder, combined type F90.2 Active 08728142 Problem PTSD (post-traumatic stress disorder) F43.10 Active 08068067 Problem Eating disorder F50.9 Active 03480136 Problem Generalized anxiety disorder F41.1 Active 43476394 Problem Major depressive disorder, recurrent episode, unspecified severity F33.9 Active 29195919 Problem Diabetes E11.9 Active 79383019 Problem 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 I10 Active 20326470 Problem Back pain M54.9 Active 770223074 Problem Psoriasis L40.9 Active 5006159 Problem Arthritis M19.90 Active 9652510 Problem Tobacco abuse Z72.0 Active 18083012 Problem [facility] 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 Active 375028250 ALLERGIES No Information SOCIAL HISTORY Never Assessed [...] reflux Surgical History Left Knee SOA-Dr. Melendrez-[facility] 05/19/16 Hospitalization History surgeries Hospitalization History Left Knee SOA--Dr. Melendrez--[facility] Hospitalization History Septic shock, UTI-[facility] 07/27/17
--- OUTSIDE RECORDS SUMMARY | 2017-08-16 06:24 | XMS REPORT ---
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 Active 964456253 Problem Attention-deficit hyperactivity disorder, predominantly hyperactive type F90.1 Active 165720184 Problem PTSD (post-traumatic stress disorder) F43.10 Active 94845873 Problem Major depressive disorder, recurrent, moderate F33.1 Active 57310848 Problem Other specified 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 Active 078914099 Problem Eating disorder F50.9 Active 68419666 Problem Attention-deficit hyperactivity disorder, combined type F90.2 Active 40407959 Problem Diabetes E11.9 Active 19296936 Problem Psoriasis L40.9 Active 9140100 Problem Tobacco abuse Z72.0 Active 83015518 Problem Generalized anxiety disorder F41.1 Active 02032003 Problem 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 I10 Active 26742590 Problem Major depressive disorder, recurrent episode, unspecified severity F33.9 Active 81223011 Problem Back pain M54.9 Active 419332878 ALLERGIES No Information SOCIAL HISTORY Never Assessed PLAN OF CARE VITAL SIGNS MEDICATIONS Medication Instructions Dosage Frequency Start Date End Date Duration Status Promethazine HCl 25 MG Orally every 4-6 hours as needed 1 tablet as needed 5 Active Tramadol HCl 50 mg Orally every 6 hrs 1 tablet as needed 6h 12 Jul, 2016 Active RESULTS No Results PROCEDURES No Known [...] veinous reflux Surgical History Left Knee SOA-Dr. Melendrez-[facility] 05/19/16 Hospitalization History surgeries Hospitalization History Left Knee SOA--Dr. Melendrez--[facility] Hospitalization History Septic shock, UTI-[facility] 07/27/17
--- OUTSIDE RECORDS SUMMARY | 2017-08-16 06:25 | XMS REPORT ---
Author Author CAROLINA BEAVER [facility] Address [address] [place] [address] Care Team Providers Care Information Technology Technician Name Role Phone CAROLINA BEAVER Unavailable PROBLEMS Type Condition ICD9-CM Code XMX46-LY Code Onset Dates Condition Status SNOMED Code Problem Arthritis M19.90 Active 5931701 Problem Psoriatic arthritis L40.50 Active 171669391 Problem FDC 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 Active 734809133 Problem Attention-deficit hyperactivity disorder, predominantly hyperactive type F90.1 Active 031760096 Problem PTSD (post-traumatic stress disorder) F43.10 Active 88782574 Problem Major depressive disorder, recurrent, moderate F33.1 Active 74376929 Problem Other specified 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 Active 764967840 Problem Eating disorder F50.9 Active 80406831 Problem Attention-deficit hyperactivity disorder, combined type F90.2 Active 16603687 Problem Diabetes E11.9 Active 17556220 Problem Psoriasis L40.9 Active 8957975 Problem Tobacco abuse Z72.0 Active 76147303 Problem Generalized anxiety disorder F41.1 Active 13356798 Problem 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 I10 Active 37318677 Problem Major depressive disorder, recurrent episode, unspecified severity F33.9 Active 22274023 Problem Back pain M54.9 Active 847622156 ALLERGIES Substance Reaction Event Type Date Status Methylphenidate twitching Drug Allergy Dec, Active Byetta 5 MCG Pen stomach upset Drug Allergy Dec, Active SOCIAL HISTORY Never Assessed PLAN OF CARE Activity Details Follow Up 4 Weeks Reason: VITAL SIGNS Height 65 in 2016-12-17 Weight 241.9 lbs 2016-12-17 Temperature 98.0 degrees Fahrenheit 2016-12-17 Heart Rate 82 bpm 2016-12-17 Respiratory Rate 20 2016-12-17 BMI 40.25 kg/m2 2016-12-17 Blood pressure systolic 120 mmHg 2016-12-17 Blood pressure diastolic 68 mmHg 2016-12-17 MEDICATIONS Medication Instructions Dosage Frequency Start Date End Date Duration Status BD Insulin Syringe 30G X 1/2 subcutaneously 4 times a day use with insulin 6h May, Active Insulin Detemir 100 UNIT/ML Subcutaneous Once a day 38 u 24h Sep, Active Adderall 20 mg Orally Once a day 1 tablet in the morning 24h Oct, 28 days Active Multivitamin Adult - Orally, bubble pack for detention Once a day 1 tablet 24h Active Invokana 100 MG TAKE ONE TABLET BY MOUTH DAILY 30 Active Diflucan 150 MG Orally Once a day 1 tablet 24h Sep, 1 dose Active Escitalopram Oxalate 10 MG Orally Once a day 1 tablet 24h 30 Active Humira Pen 40 MG/0.8ML Subcutaneous every 2 weeks 0.8 ml Jan, 90 days Active NovoLog Flexpen 100 UNIT/ML Subcutaneous 3 times a day 12 u 8h Sep, Active Tramadol HCl 50 mg Orally every 6 hrs 1 tablet as needed 6h Jul, Active Lisinopril 10 MG TAKE ONE TABLET BY MOUTH ONCE DAILY (MUST HAVE APPOINTMENT FOR ADDITIONAL REFILLS) 30 Active Triamcinolone Acetonide 0.1 % Externally to ears Twice a day 1 application to affected area 12h Sep, Active Alprazolam 1 MG Orally Three times a day as needed 1 tablet February, 30 days Active Pseudoephedrine HCl 60 mg Orally every 6 hrs 1 tablet as needed 6h Dec, 05 days Active Wellbutrin XL 150 MG TAKE TWO TABLETS BY MOUTH IN THE MORNING AND ONE TABLET EARLY AFTERNOON 30 Active Promethazine HCl 25 MG Orally every 4-6 hours as needed 1 tablet as needed 5 Active Nystatin 317657 UNIT/ML Mouth/Throat 4 times a day 5 ml 6h Dec, Active RESULTS No Results PROCEDURES Procedure Date Ordered Result Body Site [facility] VISIT ESTABLISHED PATIENT Dec 17, 2016 IMMUNIZATIONS No Known Immunizations MEDICAL (GENERAL) HISTORY [...] veinous reflux Surgical History Left Knee SOA-Dr. Melendrez-[facility] 05/19/16 Hospitalization History surgeries Hospitalization History Left Knee SOA--Dr. Melendrez--[facility]
== END 2017-08-15 22:52 | disposition home or self-care (01) ==
LOC: EDUNIT# 18:15 → ER 18:18
DX: I10 Essential (primary) hypertension (principal); K21.9 Gastro-esophageal reflux disease without esophagitis; S80.211A Abrasion, right knee, initial encounter; S50.311A Abrasion of right elbow, initial encounter; E11.9 Type 2 diabetes mellitus without complications; F41.9 Anxiety disorder, unspecified; F17.210 Nicotine dependence, cigarettes, uncomplicated; Z90.710 Acquired absence of both cervix and uterus; Z87.59 Personal history of other complications of pregnancy, childbirth and the puerperium; Z82.49 Family history of ischemic heart disease and other diseases of the circulatory system; Z79.4 Long term (current) use of insulin; Z91.81 History of falling; W19.XXXA Unspecified fall, initial encounter
CPT/HCPCS: 36415; 71020; 73562; 80053; 81000; 83605; 83735; 84484; 85025; 85610; 85730; 93005

== ENCOUNTER 2017-08-17 20:26 | Observation (INO) | payer MEDICARE ==
[~2017-08-17] VITALS: Ht 165.1 cm; Wt 116.6 kg
[2017-08-17] MEDS ORDERED: NS IV 1000 ML 1,000 ML IV ONE ×2 (20:54→21:28)
[2017-08-17] MEDS ORDERED: ONDANSETRON 4 MG/2 ML (SDV) Z0FRAN IVP ONE (21:00)
[2017-08-17 21:01] LABS: BASOPHILS % (AUTO) 0 % (0-10); EOSINOPHILS # (AUTO) 0.3 10^3/uL (0.0-0.3); EOSINOPHILS % (AUTO) 3 % (0-10); LYMPHOCYTES # (AUTO) 1.3 X 10^3 (1.0-4.0); LYMPHOCYTES % (AUTO) 14 % (12-44); MEAN CORPUSCULAR HEMOGLOBIN 30 PG (25-34); MEAN CORPUSCULAR HGB CONC 35 G/DL (32-36); MEAN CORPUSCULAR VOLUME 88 FL (80-99); MEAN PLATELET VOLUME 9.3 FL (7.4-10.4); MONOCYTES # (AUTO) 0.7 X 10^3 (0.0-1.0); MONOCYTES % (AUTO) 8 % (0-12); NEUTROPHILS % (AUTO) 75 % (42-75); PLATELET COUNT 198 10^3/uL (130-400); RED BLOOD COUNT 4.73 10^6/uL (4.35-5.85); RED CELL DISTRIBUTION WIDTH 13.7 % (10.0-14.5); WHITE BLOOD COUNT 9.2 10^3/uL (4.3-11.0)
--- NOTE | 2017-08-17 21:04 | ED Fall/Injury ---
General Chief Complaint: Trauma-Non Activation Stated Complaint: FALL Nursing Triage Note: patient slide out of bed. Source: patient Exam Limitations: other (poor historian) History of Present Illness Time seen by provider: 20:35 Initial Comments 62-year-old female patient presents to the emergency Department with reports of sliding out of bed at 1600 today. States her ex called EMS because "he must have thought I was acting funny." Patient reports hitting her right knee Tuesday and today. Patient was seen on 08/15/17 in the emergency department by Jose Jane after falling 2 times. Patient denies having loss of consciousness , confusion, headache, neck pain, back pain. Denies using blood thinners or aspirin. Patient states she has had numerous falls recently. States her blood sugars have been "through the roof." Location Injury Occurred: home Occurred: this afternoon (1600 today) Injuries/Pain Location: lower extremity (right knee) Context: slipped Loss of Consciousness: no loss of consciousness Modifying Factors: Worse With Other (worse with palpation of the right knee.) Allergies and Home Medications Allergies Coded Allergies: Sulfa (Sulfonamide Antibiotics) (Verified Allergy, Unknown, 08/26/14) morphine (Verified Adverse Reaction, Mild, NAUSEA, 05/19/16) Home Medications Alprazolam 0.5 Mg Tablet, 0.5 MG PO DAILY PRN for ANXIETY, (Reported) Bupropion HCl 150 Mg Tab.er.24h, 450 MG PO DAILY, (Reported) TAKES 3 (150MG) TABLETS Canagliflozin 100 Mg Tablet, 100 MG PO DAILY, (Reported) Dextroamphetamine/Amphetamine 30 Mg Tablet, 30 MG PO DAILY, (Reported) Escitalopram Oxalate 20 Mg Tablet, 20 MG PO DAILY, (Reported) Estradiol 0.5 Mg Tablet, 0.5 MG PO DAILY, (Reported) Fluconazole 150 Mg Tablet, 150 MG PO Q72H for 7 Days, #3 Prescribed by: PHUONG EPPS on 07/29/17 1059 Gabapentin 100 Mg Capsule, 100 MG PO BID, (Reported) Glucosamine HCl/Chondr Bentley A Na 1 Each Tablet, 1 TAB PO DAILY, (Reported) Ibuprofen 200 Mg Tablet, 400 MG PO TID PRN for PAIN-MILD, (Reported) TAKES 2 (200MG) TABLETS Insulin Aspart 300 Units/3 Ml Solution, 10-12 UNITS SQ TIDAC, (Reported) Insulin Detemir 100 Unit/1 Ml Insuln.pen, 30 UNITS SQ BID, (Reported) Lactobacillus Acidophilus 1 Each Capsule, 1 CAP PO DAILY, (Reported) Lisinopril 10 Mg Tablet, 10 MG PO DAILY, (Reported) Multivitamin 1 Each Tablet, 1 TAB PO DAILY, (Reported) Pantoprazole Sodium 40 Mg Tablet.dr, 40 MG PO DAILY, (Reported) Promethazine HCl 25 Mg Tablet, 25 MG PO Q4H PRN for NAUSEA/VOMITING-2ND LINE, ( Reported) Tramadol HCl 50 Mg Tablet, 50 MG PO Q6H PRN for PAIN-MODERATE, (Reported) Vit C/E/Zn/Coppr/Lutein/Zeaxan 1 Each Capsule, 1 TAB PO BID, (Reported) Constitutional: No chills, No diaphoresis, No dizziness, No fever, No malaise, other (fatigue) Eyes: No Symptoms Reported Ears, Nose, Mouth, Throat: no symptoms reported Respiratory: No cough, No phlegm, No short of breath Cardiovascular: No chest pain, No palpitations, No syncope Gastrointestinal: No abdominal pain, No constipation, No diarrhea, loss of appetite, nausea, No vomiting Genitourinary: No decreased output, No dysuria, No frequency, No hematuria Musculoskeletal: No back pain, joint pain (rt knee), No joint swelling, No neck pain Skin: change in color (abrasion to the rt knee on Tuesday.) Psychiatric/Neurological: Denies Headache, Denies Numbness, Denies Paresthesia , Denies Seizure, Denies Tingling, Denies Weakness All Other Systems Reviewed Negative Unless Noted: Yes (Negative excepted noted.) Past Orkypok-Rypvel-Efuagu Hx Patient Social History Alcohol Use: Denies Use Recreational Drug Use: No Smoking Status: Former Smoker Type Used: Cigarettes Former Smoker, Quit: Feb 18, 2016 2nd Hand Smoke Exposure: Yes Recent Foreign Travel: No Contact w/Someone Who Travel: No Recent Infectious Disease Expo: No Recent Hopitalizations: No Immunizations Up To Date Tetanus Booster (TDap): Less than 5yrs PED Vaccines UTD: No Date of Pneumonia Vaccine: Aug 13, 2015 Date of Influenza Vaccine: Jul 31, 2016 Seasonal Allergies Seasonal Allergies: Yes Surgeries History of Surgeries: Yes (incisional hernia repair x2, gastric bypass then reversed, bilat knee scope) Surgeries: Abdominal, Section, Hysterectomy Respiratory History of Respiratory Disorde: No Cardiovascular History of Cardiac Disorders: Yes Cardiac Disorders: 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 Neurological History of Neurological Disord: No 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 System Hx 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 Disorders: No Sexually Transmitted Disease: No Genitourinary History of Genitourinary Disor: No Gastrointestinal History of Gastrointestinal Di: Yes Gastrointestinal Disorders: Gastroesophageal Reflux Musculoskeletal History of Musculoskeletal Dis: Yes Musculoskeletal Disorders: Arthritis Endocrine History of Endocrine Disorders: Yes Endocrine Disorders: Diabetes, Insulin dep HEENT History of HEENT Disorders: Yes HEENT Disorders: Cataract Cancer History of Cancer: No Psychosocial History of Psychiatric Problem: Yes Behavioral Health Disorders: Anxiety Integumentary History of Skin or Integumenta: Yes Skin/Integumentary Disorders: Psoriasis Blood Transfusions History of Blood Disorders: No Reviewed Nursing Assessment Reviewed/Agree w Nursing PMH: Yes Family Medical History Significant Family History: No Pertinent Family Hx Family Medial History: AIDS Alcoholism Arthritis Asthma Cataracts Coronary thrombosis Diabetes mellitus Drug abuse Glaucoma Psychosocial problem Respiratory disorder No Family History of: Davie's disease Alzheimer's disease Aphasia Cancer of mouth Cardiovascular disease Colon cancer Completed stroke Congenital disease Congenital heart disease Cystic fibrosis Deafness or hearing loss Dementia Dysphasia Fibrocystic disease of breast Gastroenteritis Headache disorder Hypercholesterolemia 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 Infertility Kidney disease Myocardial infarction Neoplasm Not obtainable due to adoption Osteoporosis Parkinson's disease Prostate cancer Seizure disorder Severe allergy Thyroid disease Tuberculosis Visual disorder Physical Exam Vital Signs Vital Sign - Last 12Hours 08/17/17 20:33 Temp 98.7 Pulse 106 Resp 18 B/P (MAP) 134/79 Pulse Ox 90 O2 Delivery Room Air Capillary Refill : Less Than 3 Seconds General Appearance: WD/WN, no apparent distress HEENT: PERRL/EOMI, normal ENT inspection, TMs normal, pharynx normal Neck: non-tender, full range of motion, supple, normal inspection Cardiovascular: normal peripheral pulses, regular rate, rhythm, no murmur Respiratory: chest non-tender, no respiratory distress, no accessory muscle use , decreased breath sounds (bilateral bases.), crackles (bilaterally.), No rales , No rhonchi, No stridor, No wheezing Peripheral Pulses: 2+ Dorsalis Pedis (R), 2+ Left Dors-Pedis (L), 2+ Radial Pulses (R), 2+ Radial Pulses (L) Gastrointestinal: normal bowel sounds, non tender, soft, no organomegaly Back: normal inspection, no vertebral tenderness Extremities: normal range of motion, no calf tenderness, normal capillary refill, pelvis stable, pedal edema (2+ bilat pedal edema.), other (scabbed abrasion, swelling, and tenderness to the right anterior knee. full ROM noted. 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, no motor/sensory deficits, alert, oriented x 3, depressed affect (flat, depressed affect.) Skin: normal color, warm/dry, other (scabbed abrasion noted to the right anterior knee) Progress/Results/Core Measures Results/Orders Lab Results Laboratory Tests Test 08/17/17 20:50 08/17/17 22:55 08/17/17 23:22 Range/Units White Blood Count 9.2 4.3-11.0 10^3/uL Red Blood Count 4.73 4.35-5.85 10^6/uL Hemoglobin 14.3 11.5-16.0 G/DL Hematocrit 41 35-52 % Mean Corpuscular Volume 88 80-99 FL Mean Corpuscular Hemoglobin 30 25-34 PG Mean Corpuscular Hemoglobin Concent 35 32-36 G/DL Red Cell Distribution Width 13.7 10.0-14.5 % Platelet Count 198 130-400 10^3/uL Mean Platelet Volume 9.3 7.4-10.4 FL Neutrophils (%) (Auto) 75 42-75 % Lymphocytes (%) (Auto) 14 12-44 % Monocytes (%) (Auto) 8 0-12 % Eosinophils (%) (Auto) 3 0-10 % Basophils (%) (Auto) 0 0-10 % Neutrophils # (Auto) 7.0 1.8-7.8 X 10^3 Lymphocytes # (Auto) 1.3 1.0-4.0 X 10^3 Monocytes # (Auto) 0.7 0.0-1.0 X 10^3 Eosinophils # (Auto) 0.3 0.0-0.3 10^3/uL Basophils # (Auto) 0.0 0.0-0.1 10^3/uL D-Dimer 0.71 H 0.00-0.49 UG/ML Sodium Level 129 L 135-145 MMOL/L Potassium Level 3.8 3.6-5.0 MMOL/L Chloride Level 96 L 98-107 MMOL/L Carbon Dioxide Level 17 L 21-32 MMOL/L Anion Gap 16 H 5-14 MMOL/L Blood Urea Nitrogen 14 7-18 MG/DL Creatinine 0.91 0.60-1.30 MG/DL Estimat Glomerular Filtration Rate > 60 BUN/Creatinine Ratio 15 Glucose Level 460 *H 70-105 MG/DL Lactic Acid Level 3.85 *H 1.65 0.50-2.00 MMOL/L Calcium Level 8.7 8.5-10.1 MG/DL Magnesium Level 1.9 1.8-2.4 MG/DL Total Bilirubin 0.3 0.1-1.0 MG/DL Aspartate Amino Transf (AST/SGOT) 11 5-34 U/L Alanine Aminotransferase (ALT/SGPT) 13 0-55 U/L Alkaline Phosphatase 139 H 40-136 U/L Troponin I < 0.30 <0.30 NG/ML Total Protein 6.8 6.4-8.2 GM/DL Albumin 3.7 3.2-4.5 GM/DL TSH Destrehan Testing 2.72 0.35-4.94 UIU/ML Serum Alcohol 24 H <10 MG/DL Glucometer 261 H 70-110 MG/DL My Orders Orders - CLARISSA SCHROEDER Ct Head/Cervical Spine Wo (08/17/17 20:54) Alcohol (08/17/17 20:54) Cbc With Automated Diff (08/17/17 20:54) Comprehensive Metabolic Panel (08/17/17 20:54) Fibrin Degradation Products (08/17/17 20:54) Drug Screen Stat (Urine) (08/17/17 20:54) Lactic Acid Analyzer (08/17/17 20:54) Magnesium (08/17/17 20:54) Thyroid Analyzer (08/17/17 20:54) Troponin I (08/17/17 20:54) Ua Culture If Indicated (08/17/17 20:54) Chest 1 View, Ap/Pa Only (08/17/17 20:54) Knee, Right, 3 Views (08/17/17 20:54) Ns Iv 1000 Ml (Sodium Chloride 0.9%) (08/17/17 20:54) Ondansetron Injection (Zofran Injectio (08/17/17 21:00) Blood Culture (08/17/17 21:23) Ns Iv 500 Ml (Sodium Chloride 0.9%) (08/17/17 21:23) Ns Iv 1000 Ml (Sodium Chloride 0.9%) (08/17/17 21:23) Insulin (Regular) Human (Humulin R (Per (08/17/17 21:23) Ceftriaxone Injection (Rocephin Injectio (08/17/17 21:30) Ns Iv 1000 Ml (Sodium Chloride 0.9%) (08/17/17 21:28) Ct Angio Chest W (08/17/17 21:44) Ns Iv 1000 Ml (Sodium Chloride 0.9%) (08/17/17 22:15) Iohexol Injection (Omnipaque 350 Mg/Ml 1 (08/17/17 22:45) Ns (Ivpb) (Sodium Chloride 0.9% Ivpb Bag (08/17/17 22:45) Medications Given in ED Current Medications Medications Dose Ordered Sig/Minal Route Start Time Stop Time Status Last Admin Dose Admin Ceftriaxone Sodium 1000 mg/ Sodium Chloride 50 ml @ 100 mls/hr ONCE ONCE IV 08/17/17 21:30 08/17/17 21:59 DC 08/17/17 21:42 100 MLS/HR Iohexol 150 ml ONCE ONCE IV 08/17/17 22:45 08/17/17 22:46 DC 08/17/17 22:46 125 ML Ondansetron HCl 4 mg ONCE ONCE IVP 08/17/17 21:00 08/17/17 21:01 DC 08/17/17 21:42 4 MG Sodium Chloride 100 ml ONCE ONCE IV 08/17/17 22:45 08/17/17 22:46 DC 08/17/17 22:46 80 ML Sodium Chloride 500 ml @ 0 mls/hr Q0M ONCE IV 08/17/17 21:23 08/17/17 21:26 DC 08/17/17 22:11 0 MLS/HR Sodium Chloride 1,000 ml @ 0 mls/hr Q0M ONCE IV 08/17/17 21:28 08/17/17 21:29 DC 08/17/17 21:42 0 MLS/HR Vital Signs/I&O Vital Sign - Last 12Hours 08/17/17 20:33 Temp 98.7 Pulse 106 Resp 18 B/P (MAP) 134/79 Pulse Ox 90 O2 Delivery Room Air Intake and Output 08/18/17 00:00 Intake Total 50 ml Balance 50 ml Blood Pressure Mean: 97 Diagnostic Imaging Diagonstic Imaging: CT Plain Films/CT/US/NM/MRI: c-spine, head Comments Findings: Head CT: There is no evidence of acute cerebral infarct, intracranial hemorrhage, or gross mass effect. There are subtle focal and patchy areas of low -attenuation white matter changes in both cerebral hemispheres likely representing chronic small vessel ischemic disease. There is normal cedeno-white matter distinction. The brain parenchymal volume appears appropriate for patient 's age. There is no significant midline shift or herniation. There is no evidence of hydrocephalus. The basal cisterns are unremarkable. The skull, extracranial soft tissue, and orbits are unremarkable. The paranasal sinuses are unremarkable. There is consolidation of the right mastoid air cells and sclerosis likely from chronic mastoiditis changes. Cervical spine CT: There is no acute cervical spine fracture or dislocation. There is straightening of the cervical spine posture. There is cervical spine degenerative disease with vertebral body spurs and facet arthropathy. There is no significant bony central spinal canal and bony neural foraminal narrowing. There is no significant neck soft tissue abnormality. Visualized lung apices are clear. Impression: 1: Age-related brain parenchymal changes with no evidence of acute intracranial process. There is no intracranial hemorrhage. 2: Cervical spine degenerative disease with no acute fracture or dislocation. Dictated on workstation # [id number] Reviewed: Reviewed by Me (radiology report reviewed by me) Diagonstic Imaging: Xray Plain Films/CT/US/NM/MRI: chest Comments FINDINGS: There is interval progression of low lung volume seen (right side more than the left), with development of right lung base atelectasis. Otherwise , lungs are clear. There is no pleural effusion or pneumothorax. Pulmonary vasculature and cardiac silhouette is within normal limits. Wide appearing upper mediastinum is seen likely from portable projection. There are hypertrophic spurs seen throughout the spine. There is no gross acute bony fracture seen on this exam. Multiple surgical clips overlying the upper abdomen and sutures are again seen. IMPRESSION: 1: Interval development of bibasilar atelectasis (right side more than the left). 2: Otherwise stable chest x-ray exam with no interval acute process. Dictated on workstation # [id number] Reviewed: Reviewed by Me (radiology report reviewed by me) Diagonstic Imaging: Xray Plain Films/CT/US/NM/MRI: knee Comments FINDINGS: There is no evidence of acute fracture or dislocation. There are stable moderately hypertrophic spurs involving the patellofemoral compartment and medial compartment. There is minimal spurring involving the lateral compartment. There is no significant knee effusion. IMPRESSION: Stable degenerative disease to the right knee with no acute fracture or dislocation. Dictated on workstation # [id number] Reviewed: Reviewed by Me (radiology report reviewed by me) Diagonstic Imaging: CT Plain Films/CT/US/NM/MRI: chest (angio chest) Reviewed: Other ([employer] report reviewed by me) Departure Communication (Admissions) Time/Spoke to Admitting Phy: 22:[address] Roy graciously accepts patient to her medical service for IVF, IV antibiotics, and further management. Progress Notes Laboratory findings discussed with the patient, daughter is present in the room , and ex- who is also present in the room with the patient. Patient now states she drinks approximately 2 to 3 shooters/jiggers every other day. States she has done this for years., but states "I can quit! I swear I can, its not a problem!" Family reports patient is not able to care for herself at home. Daughter states she does not want the patient to go to a skilled nursing because she gets paid to take care of her mother and is trained to do so. I have discussed plan for admission, all verbalize understanding and agree with the treatment plan. 2320 Patient states she thinks she can give a urine specimen, but is demanding a esteban. Patient states she is able to tell when she has to go and can get to the toilet at home without difficulty to pee. States she is "not in a good mood and will not sit on the camode." demands a esteban be placed for UA. I have advised the patient that we will get her up to the camode and being in a bad mood does not affect her being able to give a urine sample. Patient states "BRINA! Whatever you say! Apparently I don't have a choice!" Impression Impression: Primary Impression: Sepsis Qualified Codes: A41.9 - Sepsis, unspecified organism Additional Impressions: Hyperglycemia due to type 2 diabetes mellitus Qualified Codes: E11.65 - Type 2 diabetes mellitus with hyperglycemia; Z79.4 - senior care (current) use of insulin Hyponatremia EtOH dependence Qualified Codes: F10.29 - Alcohol dependence with unspecified alcohol-induced disorder Debility, unspecified Disposition: 09 ADMITTED INPATIENT Condition: Stable Admissions Decision to Admit Reason: Admit from ER (General) Decision to Admit/Date: Aug 17, 2017 Time/Decision to Admit Time: 22:00 Departure-Patient Inst. Referrals: REJI ROY MD (PCP/Family) Primary Care Physician CLARISSA SCHROEDER Aug 17, 2017 21:04
[2017-08-17 21:19] LABS: ALANINE AMINOTRANSFERASE 13 U/L (0-55); ALBUMIN 3.7 GM/DL (3.2-4.5); ALCOHOL 24 MG/DL (<10); ANION GAP 16 MMOL/L (5-14); ASPARTATE AMINO TRANSFERASE 11 U/L (5-34); BILIRUBIN,TOTAL 0.3 MG/DL (0.1-1.0); BLOOD UREA NITROGEN 14 MG/DL (7-18); BUN/CREATININE RATIO 15; CALCIUM 8.7 MG/DL (8.5-10.1); CARBON DIOXIDE 17 MMOL/L (21-32); CHLORIDE 96 MMOL/L (98-107); CREATININE SERUM 0.91 MG/DL (0.60-1.30); GFR ESTIMATED > 60; MAGNESIUM 1.9 MG/DL (1.8-2.4); POTASSIUM 3.8 MMOL/L (3.6-5.0); SODIUM 129 MMOL/L (135-145); TOTAL PROTEIN 6.8 GM/DL (6.4-8.2)
[2017-08-17 21:20] LABS: GLUCOSE 460 MG/DL (70-105)
[2017-08-17] MEDS ORDERED: NS IV 500 ML 500 ML IV ONE (21:23)
[2017-08-17] MEDS ORDERED: inSUlin (REGULAR) HUMAN 1 UNIT/0.01 ML (CHARGE PER UNIT) IV STA (21:23)
[2017-08-17] MEDS ORDERED: NS IV 1000 ML 2,000 ML IV ONE (21:23)
[2017-08-17] MEDS ORDERED: cefTRIAXone INJECTION 1,000 MG in NS (IVPB) 50 ML IV ONE (21:30)
--- NOTE | 2017-08-17 21:31 | Diagnostic Imaging Report ---
CLINICAL INDICATION: Patient fell out of bed having pain in knee. Patient has history of fall on Tuesday. EXAM: X-ray of the right knee, 3 views. COMPARISON: X-ray of the right knee dated 08/15/2017. FINDINGS: There is no evidence of acute fracture or dislocation. There are stable moderately hypertrophic spurs involving the patellofemoral compartment and medial compartment. There is minimal spurring involving the lateral compartment. There is no significant knee effusion. IMPRESSION: Stable degenerative disease to the right knee with no acute fracture or dislocation. Dictated by: Dictated on workstation # [id number]
--- NOTE | 2017-08-17 21:34 | Diagnostic Imaging Report ---
CLINICAL INDICATION: Patient fell out of bed now having pain in knee. Patient has history of fall on Tuesday. EXAM: Portable chest x-ray supine view. COMPARISON: Chest x-ray dated 08/15/2017. FINDINGS: There is interval progression of low lung volume seen (right side more than the left), with development of right lung base atelectasis. Otherwise, lungs are clear. There is no pleural effusion or pneumothorax. Pulmonary vasculature and cardiac silhouette is within normal limits. Wide appearing upper mediastinum is seen likely from portable projection. There are hypertrophic spurs seen throughout the spine. There is no gross acute bony fracture seen on this exam. Multiple surgical clips overlying the upper abdomen and sutures are again seen. IMPRESSION: 1: Interval development of bibasilar atelectasis (right side more than the left). 2: Otherwise stable chest x-ray exam with no interval acute process. Dictated by: Dictated on workstation # [id number]
[2017-08-17 21:39] LABS: TROPONIN I < 0.30 NG/ML (<0.30)
--- NOTE | 2017-08-17 21:56 | Diagnostic Imaging Report ---
Clinical indication: Patient status post fall. Exam: Head CT without IV contrast. Axial CT scan of the cervical spine with sagittal and coronal reformations. Comparison: Head CT without contrast dated 07/27/2017. Findings: Head CT: There is no evidence of acute cerebral infarct, intracranial hemorrhage, or gross mass effect. There are subtle focal and patchy areas of low-attenuation white matter changes in both cerebral hemispheres likely representing chronic small vessel ischemic disease. There is normal cedeno-white matter distinction. The brain parenchymal volume appears appropriate for patient's age. There is no significant midline shift or herniation. There is no evidence of hydrocephalus. The basal cisterns are unremarkable. The skull, extracranial soft tissue, and orbits are unremarkable. The paranasal sinuses are unremarkable. There is consolidation of the right mastoid air cells and sclerosis likely from chronic mastoiditis changes. Cervical spine CT: There is no acute cervical spine fracture or dislocation. There is straightening of the cervical spine posture. There is cervical spine degenerative disease with vertebral body spurs and facet arthropathy. There is no significant bony central spinal canal and bony neural foraminal narrowing. There is no significant neck soft tissue abnormality. Visualized lung apices are clear. Impression: 1: Age-related brain parenchymal changes with no evidence of acute intracranial process. There is no intracranial hemorrhage. 2: Cervical spine degenerative disease with no acute fracture or dislocation. Dictated by: Dictated on workstation # [id number]
[2017-08-17] MEDS ORDERED: NS IV 1000 ML 1,000 ML IV SCH (22:15)
[2017-08-17] MEDS ORDERED: IOHEXOL 350 MG/ML 150 ML (OMNIPAQUE 350) VIAL IV ONE (22:45)
[2017-08-17] MEDS ORDERED: NS 100 ML (IVPB) BAG IV ONE (22:45)
[2017-08-18 00:01] LABS: BILIRUBIN,URINE NEGATIVE (NEGATIVE); KETONES,URINE NEGATIVE (NEGATIVE); LEUKOCYTE ESTERASE ,URINE NEGATIVE (NEGATIVE); NITRITE,URINE NEGATIVE (NEGATIVE); PH,URINE 5 (5-9); PROTEIN,URINE 1+ (NEGATIVE); UROBILINOGEN,URINE NORMAL (NORMAL)
[2017-08-18 01:16] VITALS: BP 105/81
[2017-08-18] MEDS: NS IV 1000 ML 1,000 ML IV SCH ×3 (01:50→09:00)
[2017-08-18] MEDS ORDERED: ACETAMINOPHEN 500 MG TAB (TYLENOL) PO PRN (02:00)
[2017-08-18] MEDS ORDERED: ONDANSETRON 4 MG/2 ML (SDV) Z0FRAN IV PRN (02:00)
[2017-08-18] MEDS ORDERED: CATHETER FLUSH 10 ML SYR IV PRN (02:00)
[2017-08-18] MEDS ORDERED: VANCOMYCIN 1 GM/NS 250 ML IVPB IV SCH ×2 (03:15)
[2017-08-18 04:00] VITALS: BP 141/77
[2017-08-18 04:43] LABS: BASOPHILS % (AUTO) 0 % (0-10); EOSINOPHILS # (AUTO) 0.2 10^3/uL (0.0-0.3); EOSINOPHILS % (AUTO) 3 % (0-10); LYMPHOCYTES # (AUTO) 1.7 X 10^3 (1.0-4.0); LYMPHOCYTES % (AUTO) 24 % (12-44); MEAN CORPUSCULAR HEMOGLOBIN 30 PG (25-34); MEAN CORPUSCULAR HGB CONC 34 G/DL (32-36); MEAN CORPUSCULAR VOLUME 89 FL (80-99); MEAN PLATELET VOLUME 9.2 FL (7.4-10.4); MONOCYTES # (AUTO) 0.4 X 10^3 (0.0-1.0); MONOCYTES % (AUTO) 6 % (0-12); NEUTROPHILS % (AUTO) 67 % (42-75); PLATELET COUNT 162 10^3/uL (130-400); RED CELL DISTRIBUTION WIDTH 13.9 % (10.0-14.5); WHITE BLOOD COUNT 7.4 10^3/uL (4.3-11.0)
[2017-08-18] MEDS ORDERED: metroNIDAZOLE 500 MG/100 ML IVPB (PRE-MIX) IV SCH (05:00)
[2017-08-18 05:15] LABS: ALANINE AMINOTRANSFERASE 13 U/L (0-55); ALBUMIN 3.2 GM/DL (3.2-4.5); ANION GAP 9 MMOL/L (5-14); ASPARTATE AMINO TRANSFERASE 13 U/L (5-34); BILIRUBIN,TOTAL 0.3 MG/DL (0.1-1.0); BLOOD UREA NITROGEN 10 MG/DL (7-18); BUN/CREATININE RATIO 14; CALCIUM 7.7 MG/DL (8.5-10.1); CARBON DIOXIDE 20 MMOL/L (21-32); CHLORIDE 105 MMOL/L (98-107); CREATININE SERUM 0.74 MG/DL (0.60-1.30); GFR ESTIMATED > 60; GLUCOSE 339 MG/DL (70-105); POTASSIUM 4.4 MMOL/L (3.6-5.0); SODIUM 134 MMOL/L (135-145); TOTAL PROTEIN 5.8 GM/DL (6.4-8.2)
[2017-08-18] MEDS: CATHETER FLUSH 10 ML SYR IV SCH ×3 (06:03→21:30)
[2017-08-18] MEDS: inSUlin (REGULAR) HUMAN 1 UNIT/0.01 ML (CHARGE PER UNIT) SC SCH ×4 (06:06→21:30)
[2017-08-18] MEDS ORDERED: INFLUENZA TRIvalent 2017-2018 0.5 ML/45 MCG SYR IM ONE (07:00)
--- NOTE | 2017-08-18 07:23 | Diagnostic Imaging Report ---
PROCEDURE: CT angiography of the chest with contrast. TECHNIQUE: Multiple contiguous axial images were obtained through the chest after uneventful bolus administration of intravenous contrast. Reconstructed CTA MIP acquisitions were also performed. INDICATION: Multiple recent falls. Chest pain. COMPARISON: 08/26/2014. FINDINGS: There is no evidence of acute pulmonary embolus to the first subsegmental division of the pulmonary arteries. Heart size is within normal limits. There is no large pericardial effusion. No pathologically enlarged or morphologically abnormal adenopathy is seen within the mediastinum, laxmi, nor axilla. There is calcified aortic and coronary atherosclerosis. Evaluation lung windows demonstrates mild atelectasis in the right base. There is juxtapleural nodular density involving the lateral margins of the right lower lobe that measures 1.4 cm (image 71, series 4). Rounded atelectasis is favored. There is also punctate micronodule within the base to the right upper lobe that measures approximately 2 mm (image 59, series 4). There is no pleural effusion or pneumothorax. Osseous structures show age-related degenerative changes. No acute abnormalities are seen. Included portions of the upper abdomen show no additional acute abnormalities. IMPRESSION: 1. No evidence of acute pulmonary embolus. 2. Nodular opacity in the right lower lobe. Appearance is suggestive of rounded atelectasis. However, a short interval three-month followup is recommended. 3. Additional punctate 2 mm micronodule within the base of the right upper lobe. Dictated by: Dictated on workstation # [id number]
[2017-08-18] MEDS ORDERED: VANCOMYCIN 1 GM/NS 250 ML IVPB IV NR ×2 (08:00)
[2017-08-18] MEDS: FAMOTIDINE 20 MG (PEPCID) TABLET PO SCH ×2 (08:25→21:29)
[2017-08-18 08:26] VITALS: BP 142/67
--- NOTE | 2017-08-18 10:06 | Diagnostic Imaging Report ---
INDICATION: Sepsis EXAMINATION: PA and lateral chest. Heart size and pulmonary vascularity are normal. Lungs are clear. There are no effusions or pneumothoraces. IMPRESSION: Negative chest. Dictated by: Dictated on workstation # [id number]
--- NOTE | 2017-08-18 10:56 | History & Physicial ([facility]) ---
TANIA ROSE MED STUDENT 08/18/17 1056: HPI History of Present Illness: Patient presented to the ER via EMS. Around 1600 yesterday she slid out of bed and fell and her ex- called EMS. She states for the past week she has been falling more and doesn't know why. States that she has hit her head and her knee a couple of times but has never lost consciousness. Patient says that she feel just generally weak and her legs feel especially weak. Denies any motor or sensory loss. She thinks that she feels more unsteady when she is walking and thinks that is when she falls. She states that occasionally when she stands up she gets light headed. Denies fever, denies SOB, denies dizziness, denies any change in vision. She says that she feels a lot better today and would like to go home. Source: patient Exam Limitations: no limitations Date seen by provider: Aug 18, 2017 Time Seen by Provider: 10:00 Attending Physician Reji Mendes MD PCP Reji Mendes MD Consult Date of Admission Aug 17, 2017 at 22:00 Home Medications Home Medications Reviewed patient Home Medication Reconciliation Form Allergies Coded Allergies: Sulfa (Sulfonamide Antibiotics) (Verified Allergy, Unknown, 08/26/14) morphine (Verified Adverse Reaction, Mild, NAUSEA, 05/19/16) NXS-Bsmbrz-Abninn Hx Patient Social History Marrital Status: Alcohol Use: Occasionally Uses Recreational Drug Use: No Smoking Status: Former Smoker Type Used: Cigarettes 2nd Hand Smoke Exposure: Yes Recent Foreign Travel: No Contact w/other who traveled: No Recent Hopitalizations: No Recent Infectious Disease Expo: No Physical Abuse Screen: No Sexual Abuse: No Immunizations Up To Date Tetanus Booster (TDap): Less than 5yrs Date of Pneumonia Vaccine: Aug 13, 2015 Date of Influenza Vaccine: Jul 31, 2016 Past Medical History PSORIATIC ARTHRITIS ON IMMUNOSUPPRESSANT THERAPY DIABETES MELLITUS TYPE 2 MAJOR DEPRESSIVE DISORDER 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 Arthritis Obesity, BMI 44 Family Medical History Significant Family History: No Pertinent Family Hx Family History: AIDS Alcoholism Arthritis Asthma Cataracts Coronary thrombosis Diabetes mellitus Drug abuse Glaucoma Psychosocial problem Respiratory disorder No Family History of: [place]'s disease Alzheimer's disease Aphasia Cancer of mouth Cardiovascular disease Colon cancer Completed stroke Congenital disease Congenital heart disease Cystic fibrosis Deafness or hearing loss Dementia Dysphasia Fibrocystic disease of breast Gastroenteritis Headache disorder Hypercholesterolemia 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 Infertility Kidney disease Myocardial infarction Neoplasm Not obtainable due to adoption Osteoporosis Parkinson's disease Prostate cancer Seizure disorder Severe allergy Thyroid disease Tuberculosis Visual disorder Review of Systems ([facility]) Constitutional: No chills, No dizziness, No fever, malaise, weakness EENTM: No blurred vision, No double vision, No vision loss Respiratory: No short of breath Cardiovascular: No chest pain, No syncope Gastrointestinal: no symptoms reported Genitourinary: No dysuria, No incontinence : No Musculoskeletal: muscle weakness Skin: no symptoms reported Psychiatric/Neurological: Denies Headache, Denies Numbness, Denies Tingling, Weakness Physical Exam-([facility]) Physical Exam Vital Signs VS - Last 72 Hours, by Label 08/17/17 08/18/17 08/18/17 08/18/17 20:33 00:45 01:16 01:16 Temp 98.7 98.9 Pulse 106 84 91 85 Resp 18 19 B/P (MAP) 134/79 105/81 Pulse Ox 90 99 93 O2 Delivery Room Air Nasal Cannula O2 Flow Rate 2.00 08/18/17 08/18/17 08/18/17 08/18/17 01:30 04:00 07:00 08:26 Temp 97.3 97.6 96.0 Pulse 81 81 96 Resp 18 B/P (MAP) 141/77 142/67 Pulse Ox 98 95 O2 Delivery Room Air Capillary Refill : Less Than 3 Seconds General Appearance: no apparent distress HEENT: normal ENT inspection Neck: non-tender, supple Respiratory: normal breath sounds, no respiratory distress, no accessory muscle use Cardiovascular: regular rate, rhythm, no JVD, no murmur Gastrointestinal: normal bowel sounds, non tender, soft Rectal: deferred Extremities: normal inspection Neurologic/Psychiatric: no motor/sensory deficits, alert, No sensory deficit Skin: normal color, warm/dry Lymphatic: no adenopathy Clinical Quality Measures DVT/VTE Risk/Contraindication: Risk Factor Score Per Nursin RFS Level Per Nursing on Admit: 4+=Very High Copy Copies To 1: REJI MENDES MD Assessment/Plan Assessment/Plan Admission Dx Sepsis, hyperglycemia, Hypernatremia, Debility Plan Sepsis vs. DKA Increased Falls Debility Diabetes 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 EtOH dependence Physical therapy will see patient. Wait on fall risk assessment before further action. REJI MENDES MD 08/21/17 2239: HPI History of Present Illness: Reviewed student's HPI with patient Home Medications Allergies Coded Allergies: Sulfa (Sulfonamide Antibiotics) (Verified Allergy, Unknown, 08/26/14) morphine (Verified Adverse Reaction, Mild, NAUSEA, 05/19/16) HGK-Qgplys-Pdgjrv Hx Patient Social History Living Status: Lives home alone Past Medical History IDDM HTN Tobacco USE Family Medical History Family History: AIDS Alcoholism Arthritis Asthma Cataracts Coronary thrombosis Diabetes mellitus Drug abuse Glaucoma Psychosocial problem Respiratory disorder No Family History of: Sadiq's disease Alzheimer's disease Aphasia Cancer of mouth Cardiovascular disease Colon cancer Completed stroke Congenital disease Congenital heart disease Cystic fibrosis Deafness or hearing loss Dementia Dysphasia Fibrocystic disease of breast Gastroenteritis Headache disorder Hypercholesterolemia 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 Infertility Kidney disease Myocardial infarction Neoplasm Not obtainable due to adoption Osteoporosis Parkinson's disease Prostate cancer Seizure disorder Severe allergy Thyroid disease Tuberculosis Visual disorder Review of Systems ([facility]) Respiratory: no symptoms reported, No cough, No dyspnea on exertion Cardiovascular: no symptoms reported, No edema, No palpitations Gastrointestinal: no symptoms reported, No constipation, No diarrhea, No nausea , No vomiting Genitourinary: frequency : No Reviewed Test Results Reviewed Test Results Lab Laboratory Tests Test 08/19/17 05:09 08/19/17 07:14 08/19/17 10:57 Range/Units Glucometer 209 H 329 H 70-110 MG/DL White Blood Count 6.3 4.3-11.0 10^3/uL Red Blood Count 4.25 L 4.35-5.85 10^6/uL Hemoglobin 12.8 11.5-16.0 G/DL Hematocrit 38 35-52 % Mean Corpuscular Volume 90 80-99 FL Mean Corpuscular Hemoglobin 30 25-34 PG Mean Corpuscular Hemoglobin Concent 34 32-36 G/DL Red Cell Distribution Width 14.0 10.0-14.5 % Platelet Count 178 130-400 10^3/uL Mean Platelet Volume 9.0 7.4-10.4 FL Neutrophils (%) (Auto) 61 42-75 % Lymphocytes (%) (Auto) 24 12-44 % Monocytes (%) (Auto) 9 0-12 % Eosinophils (%) (Auto) 6 0-10 % Basophils (%) (Auto) 1 0-10 % Neutrophils # (Auto) 3.8 1.8-7.8 X 10^3 Lymphocytes # (Auto) 1.5 1.0-4.0 X 10^3 Monocytes # (Auto) 0.5 0.0-1.0 X 10^3 Eosinophils # (Auto) 0.4 H 0.0-0.3 10^3/uL Basophils # (Auto) 0.0 0.0-0.1 10^3/uL Phosphorus Level 2.9 2.3-4.7 MG/DL Magnesium Level 2.0 1.8-2.4 MG/DL Vancomycin Level Trough 5.0 L 10.0-20.0 UG/ML Radiology Date of Exam: 08/17/17 CT HEAD/CERVICAL SPINE WO Clinical indication: Patient status post fall. Exam: Head CT without IV contrast. Axial CT scan of the cervical spine with sagittal and coronal reformations. Comparison: Head CT without contrast dated 07/27/2017. Findings: Head CT: There is no evidence of acute cerebral infarct, intracranial hemorrhage, or gross mass effect. There are subtle focal and patchy areas of low-attenuation white matter changes in both cerebral hemispheres likely representing chronic small vessel ischemic disease. There is normal cedeno-white matter distinction. The brain parenchymal volume appears appropriate for patient's age. There is no significant midline shift or herniation. There is no evidence of hydrocephalus. The basal cisterns are unremarkable. The skull, extracranial soft tissue, and orbits are unremarkable. The paranasal sinuses are unremarkable. There is consolidation of the right mastoid air cells and sclerosis likely from chronic mastoiditis changes. Cervical spine CT: There is no acute cervical spine fracture or dislocation. There is straightening of the cervical spine posture. There is cervical spine degenerative disease with vertebral body spurs and facet arthropathy. There is no significant bony central spinal canal and bony neural foraminal narrowing. There is no significant neck soft tissue abnormality. Visualized lung apices are clear. Impression: 1: Age-related brain parenchymal changes with no evidence of acute intracranial process. There is no intracranial hemorrhage. 2: Cervical spine degenerative disease with no acute fracture or dislocation. of Exam: 08/17/17 CT ANGIO CHEST W PROCEDURE: CT angiography of the chest with contrast. TECHNIQUE: Multiple contiguous axial images were obtained through the chest after uneventful bolus administration of intravenous contrast. Reconstructed CTA MIP acquisitions were also performed. INDICATION: Multiple recent falls. Chest pain. COMPARISON: 08/26/2014. FINDINGS: There is no evidence of acute pulmonary embolus to the first subsegmental division of the pulmonary arteries. Heart size is within normal limits. There is no large pericardial effusion. No pathologically enlarged or morphologically abnormal adenopathy is seen within the mediastinum, laxmi, nor axilla. There is calcified aortic and coronary atherosclerosis. Evaluation lung windows demonstrates mild atelectasis in the right base. There is juxtapleural nodular density involving the lateral margins of the right lower lobe that measures 1.4 cm (image 71, series 4). Rounded atelectasis is favored. There is also punctate micronodule within the base to the right upper lobe that measures approximately 2 mm (image 59, series 4). There is no pleural effusion or pneumothorax. Osseous structures show age-related degenerative changes. No acute abnormalities are seen. Included portions of the upper abdomen show no additional acute abnormalities. IMPRESSION: 1. No evidence of acute pulmonary embolus. 2. Nodular opacity in the right lower lobe. Appearance is suggestive of rounded atelectasis. However, a short interval three-month followup is recommended. 3. Additional punctate 2 mm micronodule within the base of the right upper lobe. Physical Exam-([facility]) Physical Exam Vital Signs VS - Last 72 Hours, by Label 08/19/17 08/19/17 08/19/17 08/19/17 00:58 01:00 04:00 07:34 Temp 98.5 97.9 Pulse 96 90 96 88 Resp 18 18 B/P (MAP) 141/70 145/80 Pulse Ox 90 95 O2 Delivery Room Air Room Air 08/19/17 08/19/17 08:00 12:00 Temp 99.1 98.7 Pulse 87 89 Resp 18 20 B/P (MAP) 133/61 142/72 Pulse Ox 92 96 O2 Delivery Room Air Room Air General Appearance: WD/WN, no apparent distress HEENT: PERRL/EOMI Neck: non-tender, supple Respiratory: chest non-tender, lungs clear, normal breath sounds, no respiratory distress, no accessory muscle use Cardiovascular: normal peripheral pulses, regular rate, rhythm, no JVD, no murmur Gastrointestinal: normal bowel sounds, non tender, soft, no organomegaly Extremities: normal range of motion, non-tender, normal inspection, no pedal edema, no calf tenderness Neurologic/Psychiatric: vrt mechanic II-XII nml as tested, no motor/sensory deficits, alert, normal mood/affect, oriented x 3 Skin: normal color, warm/dry Lymphatic: no adenopathy Copy Copies To 1: REJI MENDES MD Assessment/Plan Assessment/Plan Plan 62 yo F admitted for Sepsis vs DKA Plan Elevated Lactic Acid: Sepsis vs DKA - Treated as Sepsis: fluids, antibiotics, and cultures in ED - Bolus of insulin to treat blood sugars 400s - Repeat lactic pending Fall - CT head and neck neg - At baseline - PT to evaluate patient - Discussed alcohol cessation due to increasing falls - Discussed with patient the possible need for SNF vs NH if patient continues to have falls at home IDDM - A1c pending - Restart home insulin, also has SSI HTN -Holding BP meds due to possible sepsis FEN: Diabetic Diet DVT PPX: Lovenox Dispo: Admit to Med/Surg TANIA ROSE MED STUDENT Aug 18, 2017 10:56 REJI MENDES MD Aug 21, 2017 22:39
[2017-08-18] MEDS ORDERED: ALPRAZolam 0.5 MG (XANAX) TAB PO PRN (11:45)
[2017-08-18] MEDS ORDERED: RX-TRAMADOL 50 MG (ULTRAM) TAB PPK#4 PO PRN (11:45)
[2017-08-18] MEDS ORDERED: inSUlin ASPART (NovoLOG) 1 UNIT/0.01 ML (CHARGE PER UNIT) SC SCH (12:00)
[2017-08-18] MEDS: lisINopril 10 MG (PRINIVIL) TAB PO SCH (14:13)
--- NOTE | 2017-08-18 14:50 | Physical Therapy Evaluation ---
PT Evaluation-General Medical Diagnosis Admission Date Aug 17, 2017 at 22:00 Medical Diagnosis: sepsis/hyperglycemia Onset Date: Aug 17, 2017 Therapy Diagnosis Therapy Diagnosis: generalized weakness/debility Height/Weight Height (Feet): 5 Height (Inches): 5.00 Weight (Pounds): 257 Weight (Ounces): 0.0 Precautions Precautions/Isolations: Fall Prevention, Standard Precautions Weight Bear Status Right Lower Extremity: Right Weight Bearing/Tolerated Left Lower Extremity: Left Weight Bearing/Tolerated Referral Physician: Vaughn Reason for Referral: Evaluation/Treatment Medical History Pertinent Medical History: Alcoholism, DM, GERD, HTN, Smoking Additional Medical History multiple hospital admits the past year Current History slid OOB at home and her ex called EMS; elevated blood sugars; (+) alcohol Reviewed History: Yes Social History Home: Single Level Current Living Status: Other Family Prior/[facility] Prior Level of Function Functional [place] Measure 0=Not Assessed/NA 4=Minimal Assistance 1=Total Assistance 5=Supervision or Setup 2=Maximal Assistance 6=Modified [place] 3=Moderate Assistance 7=Complete [place] Bed Mobility: 6 Transfers (B,C,W/C) (FIM): 6 Gait: 6 PT Evaluation-Current Subjective Patient states she is very tired but agrees to PT. Pain Numeric Pain Scale: 0-No Pain Location: No Pain Reported Objective Patient Orientation: Normal For Age Problem Solving: Fair ROM/Strength ROM Lower Extremities bilateral LE WNL Strength Lower Extremities left knee flexion/extension 4/5; hip flexion 4/5; DF/PF 4/5 right knee flexion/extension 4/5; hip flexion 4/5; DF/PF 4/5 Integumentary/Posture Integumentary refer to nursing notes Bowel Incontinence: No Bladder Incontinence: No Posture trunk flexed posture Neuromuscular (Tone, Coordination, Reflexes) slightly diminished coordination due to inactivity Sensory Vision: Functional Hearing: Functional Sensation Right Lower Extremit: Intact Sensation Left Lower Extremity: Intact Transfers Functional [place] Measure 0=Not Assessed/NA 4=Minimal Assistance 1=Total Assistance 5=Supervision or Setup 2=Maximal Assistance 6=Modified [place] 3=Moderate Assistance 7=Complete [place] Transfers (B, C, W/C) (FIM): 5 Scootin Rollin Supine to/from Sit: 5 Sit to/from Stand: 5 Gait Mode of Locomotion: Walk Anticipated Mode of Locomotion: Walk Gait (FIM): 5 Distance (FIM): 3=150 ft Distance: 225' Gait Level of Assist: 5 Gait Persons Needed: 1 Gait Assistive Device: FWW Comments/Gait Description functional gait sequence Balance Sitting Static: Normal Sitting Dynamic: Normal Standing Static: Normal Standing Dynamic: Normal Assessment/Needs 62 y.o. female, will benefit from short term skilled PT to address functional mobility to improve current LOF and to safely return to home with family at maximum LOF. Rehab Potential: Good PT Shelter Goals Resp Therapist Goals PT Resp Therapist Goals Time Frame: Aug 22, 2017 Transfers (B,C,W/C) (FIM): 6 Gait (FIM): 6 Gait distance (FIM): 3=150 ft Gait Level of Assist: 6 Gait Assistive Device: FWW PT Plan Problem List Problem List: Safety Treatment/Plan Treatment Plan: Continue Plan of Care Treatment Plan: Bed Mobility, Education, Functional Activity [place], Functional Strength, Gait, Safety, Therapeutic Exercise, Transfers Treatment Duration: Aug 22, 2017 Frequency: 4 times per week Estimated Hrs Per Day: .25 hour per day Patient and/or Family Agrees t: Yes Safety Risks/Education Patient Education: Safety Issues Teaching Recipient: Patient Teaching Methods: Discussion Response to Teaching: Reinforcement Needed Discharge Recommendations Therapy D/C Recommendations: Home w/ Family Support Time/GCodes Time In: 1337 Time Out: 1355 Total Billed Treatment Time: 18 Total Billed Treatment 1 visit EVModC 18 min G Codes Necessary: Yes PT/OT Therapy GCodes Therapy Functional Limitation: Physical Therapy Test(s)/Tool used to determine: Level of Assistance Scale Functional Limitation-Current Charge Code: MOBCUR Modifier: CK Functional Limitation-Goal Charge Code: MOBGOAL Modifier: CAILIN RODAS PT Aug 18, 2017 14:50
[2017-08-18] MEDS ORDERED: NON-FORMULARY MEDICATION 1 EA EA (Insulin Aspart (Novolog Flexpen) 10 UNITS) SQ SCH (16:00)
[2017-08-18 16:18] VITALS: BP 153/63
[2017-08-18] MEDS: inSUlin ASPART (NovoLOG) 1 UNIT/0.01 ML (CHARGE PER UNIT) SC SCH (16:40)
[2017-08-18 20:00] VITALS: BP 138/65
[2017-08-18] MEDS ORDERED: VANCOMYCIN 1250 MG/NS 250 ML IVPB IV SCH ×2 (20:00)
[2017-08-18] MEDS ORDERED: VANCOMYCIN 1500 MG/NS 500 ML IVPB IV SCH ×2 (20:00)
[2017-08-18] MEDS ORDERED: cefTRIAXone INJECTION 1,000 MG in NS (IVPB) 50 ML IV SCH (21:00)
[2017-08-18] MEDS ORDERED: NON-FORMULARY MEDICATION 1 EA EA (Insulin Detemir (Levemir Flextouch) 30 UNITS) SQ SCH (21:00)
[2017-08-18] MEDS: GABAPENTIN 100 MG (NEURONTIN) CAP PO SCH (21:29)
[2017-08-18] MEDS: inSUlin DETERMIR 1 UNIT/0.01 ML (LEVEMIR) CHARGE PER UNIT SQ SCH (21:30)
[2017-08-19 00:58] VITALS: BP 141/70
[2017-08-19 04:00] VITALS: BP 145/80
[2017-08-19] MEDS ORDERED: INFLUENZA TRIvalent 2017-2018 0.5 ML/45 MCG SYR IM ONE ×2 (05:14→10:56)
[2017-08-19] MEDS ORDERED: POTASSIUM CL 10MEQ/50ML IVPB 50 ML IV SCH (06:00)
[2017-08-19] MEDS ORDERED: KCL 20 MEQ TAB (K-DUR) PO SCH (06:00)
[2017-08-19] MEDS ORDERED: MAGNESIUM 1 GM/100 ML IVPB 100 ML IV SCH (06:00)
[2017-08-19] MEDS: inSUlin (REGULAR) HUMAN 1 UNIT/0.01 ML (CHARGE PER UNIT) SC SCH ×2 (06:13→11:09)
[2017-08-19] MEDS: CATHETER FLUSH 10 ML SYR IV SCH ×2 (06:13→14:30)
[2017-08-19] MEDS ORDERED: PANTOPRAZOLE 40 MG (PROTONIX) TAB PO SCH (07:00)
[2017-08-19] MEDS ORDERED: MULTIVIT W/MINERALS TAB (THERAGRAN M) PO SCH (07:00)
[2017-08-19] MEDS ORDERED: TROUGH ORDER-PHARMACY XX NR (07:00)
[2017-08-19] MEDS ORDERED: buPROPion SR 150 MG (WELLBUTRIN SR) TAB PO SCH (07:00)
[2017-08-19 07:23] LABS: BASOPHILS % (AUTO) 1 % (0-10); EOSINOPHILS # (AUTO) 0.4 10^3/uL (0.0-0.3); EOSINOPHILS % (AUTO) 6 % (0-10); LYMPHOCYTES # (AUTO) 1.5 X 10^3 (1.0-4.0); LYMPHOCYTES % (AUTO) 24 % (12-44); MEAN CORPUSCULAR HEMOGLOBIN 30 PG (25-34); MEAN CORPUSCULAR HGB CONC 34 G/DL (32-36); MEAN CORPUSCULAR VOLUME 90 FL (80-99); MONOCYTES # (AUTO) 0.5 X 10^3 (0.0-1.0); MONOCYTES % (AUTO) 9 % (0-12); NEUTROPHILS # (AUTO) 3.8 X 10^3 (1.8-7.8); NEUTROPHILS % (AUTO) 61 % (42-75); PLATELET COUNT 178 10^3/uL (130-400); RED BLOOD COUNT 4.25 10^6/uL (4.35-5.85); WHITE BLOOD COUNT 6.3 10^3/uL (4.3-11.0)
--- NOTE | 2017-08-19 07:38 | Diagnostic Imaging Report ---
INDICATION: Shortness of breath. EXAM: Portable chest at 4:53 AM FINDINGS: Heart size and pulmonary vascularity are normal. The lungs are clear. There are no effusions or pneumothoraces. IMPRESSION: Negative chest. Dictated by: Dictated on workstation # [id number]
[2017-08-19 07:39] LABS: PHOSPHORUS 2.9 MG/DL (2.3-4.7)
[2017-08-19 08:00] VITALS: BP 133/61
[2017-08-19] MEDS ORDERED: NON-FORMULARY MEDICATION 1 EA EA (Multivitamin (Daily Multiple Vitamin) 1 TAB) PO SCH (09:00)
[2017-08-19] MEDS ORDERED: NON-FORMULARY MEDICATION 1 EA EA (Escitalopram Oxalate 20 MG) PO SCH (09:00)
[2017-08-19] MEDS ORDERED: buPROPion XL 150 MG (WELLBUTRIN XL) NON-FORM PO SCH (09:00)
[2017-08-19] MEDS: inSUlin DETERMIR 1 UNIT/0.01 ML (LEVEMIR) CHARGE PER UNIT SQ SCH (09:33)
[2017-08-19] MEDS: inSUlin ASPART (NovoLOG) 1 UNIT/0.01 ML (CHARGE PER UNIT) SC SCH ×2 (09:33→14:30)
[2017-08-19] MEDS: lisINopril 10 MG (PRINIVIL) TAB PO SCH (09:34)
[2017-08-19] MEDS: GABAPENTIN 100 MG (NEURONTIN) CAP PO SCH (09:34)
[2017-08-19] MEDS: FAMOTIDINE 20 MG (PEPCID) TABLET PO SCH (09:35)
--- NOTE | 2017-08-19 10:39 | Discharge Summary ---
Diagnosis/Chief Complaint Date of Admission Aug 17, 2017 at 22:00 Date of Discharge 08/19/17 Admission Diagnosis Admission Diagnosis Elevated Lactic Acid Hyperglycemia in IDDM Fall HTN Discharge Diagnosis See Above Chief Complaint/HPI Chief Complaint/HPI Patient presented to the ER via EMS. Around 1600 yesterday she slid out of bed and fell and her ex- called EMS. She states for the past week she has been falling more and doesn't know why. States that she has hit her head and her knee a couple of times but has never lost consciousness. Patient says that she feel just generally weak and her legs feel especially weak. Denies any motor or sensory loss. She thinks that she feels more unsteady when she is walking and thinks that is when she falls. She states that occasionally when she stands up she gets light headed. Denies fever, denies SOB, denies dizziness, denies any change in vision. She says that she feels a lot better today and would like to go home. Discharge Summary-Simple/Stand Consultations Discharge Physical Examination Allergies: Coded Allergies: Sulfa (Sulfonamide Antibiotics) (Verified Allergy, Unknown, 08/26/14) morphine (Verified Adverse Reaction, Mild, NAUSEA, 05/19/16) Vitals & I&Os Vital Sign - Last 12Hours Date Time Temp Pulse Resp B/P (MAP) Pulse Ox O2 Delivery O2 Flow Rate FiO2 08/19/17 08:00 99.1 87 18 133/61 92 Room Air 08/18/17 00:45 2.00 General Appearance: Alert, Oriented X3, Cooperative, No Acute Distress HEENT: Mucous Memb Moist/[place] Respiratory: Clear to Auscultation, Normal Air Movement Cardiovascular: Regular Rate, No Murmurs Abdominal: Normal Bowel Sounds, Soft, No Tenderness, No Hepatosplenomegaly Extremities: No Edema, No Tenderness/Swelling Skin: No Rashes Neuro: Strength at 5/5 X4 Ext, Sensation Intact, Cranial Nerves 3-12 NL Psych/Mental Status: Mental Status NL, Mood NL Hospital Course See final discharge diagnosis. Discussion & Recommendations 62 yo F that presented to ER with increasing falls and elevated lactate. Patient started on treatment for sepsis but no sources of infection where found. Antibiotics were d/kim and patient was monitor for 24 hr without problems with vitals or fevers. Patient received aggressive fluid hydration which improved blood glucose and lactate. Patient did well with PT, will likely get patient into outpatient PT, She was d/kim home with close followup with myself Discharge Condition at discharge STable Instructions to patient/family Please see electronic discharge instructions given to patient. Discharge Medications Reviewed and agree with Discharge Medication list on patient's Discharge Instruction sheet Clinical Quality Measures DVT/VTE Risk/Contraindication: Risk Factor Score Per Nursin RFS Level Per Nursing on Admit: 4+=Very High Copy Copies To 1: REJI ROY MD, HOLLY R MD Aug 19, 2017 10:39
[2017-08-19] MEDS ORDERED: ACET-77 PO (10:41)
--- NOTE | 2017-08-19 10:43 | Discharge Instructions ---
Discharge [facility] Discharge Medications New Medications: Acetaminophen (Acetaminophen) 500 Mg Tablet 1000 MG PO Q6H PRN for PAIN-MILD/FEVER for 30 Days, TAB Continued Medications: Alprazolam (Alprazolam) 0.5 Mg Tablet 0.5 MG PO DAILY PRN for ANXIETY, TAB Bupropion HCl (Bupropion Xl) 150 Mg Tab.er.24h 450 MG PO DAILY, TAB LAST FILLED #90 07-06-17 TAKES 3 (150MG) TABLETS Dextroamphetamine/Amphetamine (Amphetamine Salts 30 mg Tablet) 30 Mg Tablet 30 MG PO DAILY, TAB Escitalopram Oxalate (Escitalopram Oxalate) 20 Mg Tablet 20 MG PO DAILY, TAB Estradiol (Estradiol Tablet) 0.5 Mg Tablet 0.5 MG PO DAILY, TAB LAST FILLED #90 05-10-17 Gabapentin (Gabapentin) 100 Mg Capsule 200 MG PO BID, CAP TAKES 2 (100MG) CAPSULES Glucosamine HCl/Chondr Bentley A Na (Osteo Bi-Flex Caplet) 1 Each Tablet 1 TAB PO DAILY, TAB Insulin Aspart (Novolog Flexpen) 300 Units/3 Ml Solution 10-12 UNITS SQ TIDAC, EA Insulin Detemir (Levemir Flextouch) 100 Unit/1 Ml Insuln.pen 30 UNITS SQ BID, EA LAST FILLED 06-15-17 Lactobacillus Acidophilus (Probiotic) 1 Each Capsule 1 CAP PO DAILY, CAP Lisinopril (Lisinopril) 10 Mg Tablet 10 MG PO DAILY, TAB Multivitamin (Daily Multiple Vitamin) 1 Each Tablet 1 TAB PO DAILY, TAB Pantoprazole Sodium (Pantoprazole Sodium) 40 Mg Tablet.dr 40 MG PO DAILY, TAB Tramadol HCl (Tramadol HCl) 50 Mg Tablet 50 MG PO TID PRN for PAIN-MODERATE, TAB Vit C/E/Zn/Coppr/Lutein/Zeaxan (Preservision Areds 2 Softgel) 1 Each Capsule 1 TAB PO BID, CAP Discontinued Medications: Ibuprofen (Advil) 200 Mg Tablet 400 MG PO TID PRN for PAIN-MILD, TAB TAKES 2 (200MG) TABLETS Patient Instructions Goal/Follow Up Appt: Keep your appt with Dr Mendes on Sep 01 Return to The Hospital For: Chest pain Shortness of breath Dizziness Falling Activity & Diet Discharge Diet: No Restrictions Activity as Tolerated: Yes Copy Copies To 1: REJI MENDES MD, HOLLY R MD Aug 19, 2017 10:43
[2017-08-19 12:00] VITALS: BP 142/72
--- NOTE | 2017-08-19 13:34 | Physical Therapy Daily Note ---
PT Daily Note-Current Subjective After treatment initiated, pt reports sarah is going home today. Transfers Functional [place] Measure 0=Not Assessed/NA 4=Minimal Assistance 1=Total Assistance 5=Supervision or Setup 2=Maximal Assistance 6=Modified [place] 3=Moderate Assistance 7=Complete IndependenceIRFPAI Quality Coding Scale 6 Independent with activity with or without an assistive device 5 Patient requires set up or clean up by helper. Patient completes activity by themselves 4 Supervision or touching assist (CGA). [place] provide cues , steadying assist 3 The helper provides less than half the effort to complete the activity 2 The helper provides more than half the effort to complete the activity 1 Dependent. The helper does all the effort to complete an activity 7 Patient refused to complete or attempt activity 9 The patient did not perform the activity before the current illness or injury 88 Not attempted due to Medical conditions or safety concerns Weight Bearing Right Lower Extremity: Right Weight Bearing/Tolerated Left Lower Extremity: Left Weight Bearing/Tolerated Treatments Supine to from sit withj effort but without assist. Sit to stand with SBA. Pt able to scoot and move in bed withjout assist but withj difficulty. Educated pt on importance of participation wit continued therapy services as well as safety education, pt verbalized understanding. Assessment Current Status: Good Progress Pt able to mobilize without assist. PT Mcfp Goals Statistical Developer Goals PT Mcfp Goals Time Frame: Aug 22, 2017 Transfers (B,C,W/C) (FIM): 6 Gait (FIM): 6 Gait distance (FIM): 3=150 ft Gait Level of Assist: 6 Gait Assistive Device: FWW PT Plan Problem List Problem List: Activity Tolerance Treatment/Plan Treatment Plan: Discontinue PT Treatment Plan: Bed Mobility, Education, Functional Activity [place], Functional Strength, Gait, Safety, Therapeutic Exercise, Transfers Treatment Duration: Aug 22, 2017 Frequency: 4 times per week Estimated Hrs Per Day: .25 hour per day Patient and/or Family Agrees t: Yes Safety Risks/Education Patient Education: Reviewed Precautions, Safety Issues Teaching Recipient: Patient Teaching Methods: Discussion Response to Teaching: Verbalize Understanding Discharge Recommendations Plan Pt to dc today. Time/GCodes Time In: 1140 Time Out: 1150 Total Billed Treatment Time: 10 Total Billed Treatment visit FA 10 PT/OT Therapy GCodes Therapy Functional Limitation: Physical Therapy Test(s)/Tool used to determine: Level of Assistance Scale Functional Limitation-Current Charge Code: MOBCUR Modifier: CK Functional Limitation-Goal Charge Code: MOBVALE Modifier: JAMEEL SOUZA PT Aug 19, 2017 13:34
== END 2017-08-19 15:00 | disposition home or self-care (01) ==
LOC: EDUNIT# 20:26 → ER 20:28 → INTOOBSV 22:00 → ICU 22:00 → 4TH 08-18 12:15
PROVIDERS: ADMIT Family Medicine; ATTEND Family Medicine
DX: R74.0 Nonspecific elevation of levels of transaminase and lactic acid dehydrogenase [LDH] (principal); E87.1 Hypo-osmolality and hyponatremia; E11.65 Type 2 diabetes mellitus with hyperglycemia; I10 Essential (primary) hypertension; R91.8 Other nonspecific abnormal finding of lung field; S80.211A Abrasion, right knee, initial encounter; M17.11 Unilateral primary osteoarthritis, right knee; Z23 Encounter for immunization; F10.29 Alcohol dependence with unspecified alcohol-induced disorder; L40.50 Arthropathic psoriasis, unspecified; F33.9 Major depressive disorder, recurrent, unspecified; E66.9 Obesity, unspecified; Z68.41 Body mass index [BMI] 40.0-44.9, adult; R29.6 Repeated falls; Z79.4 Long term (current) use of insulin; Z79.899 Other long term (current) drug therapy; Z87.891 Personal history of nicotine dependence; W06.XXXA Fall from bed, initial encounter; Y92.013 Bedroom of single-family (private) house as the place of occurrence of the external cause; Y93.84 Activity, sleeping; Y99.8 Other external cause status
CPT/HCPCS: 36415; 70450; 71010; 71020; 71275; 72125; 73562; 80053; 80202; 80306; 80320; 81000; 82962; 83605; 83735; 84100; 84443; 84484; 85025; 85379; 87040; 90471; 96361; 96365; 96375; 99211; 99284; G0378

== ENCOUNTER 2017-08-22 16:12 | Emergency (ER) | payer MEDICARE ==
[~2017-08-22] VITALS: Ht 165.1 cm; Wt 116.6 kg
[~2017-08-22 16:12] MED LIST changes: +ACET-77 PO
[2017-08-22 16:31] LABS: BILIRUBIN,URINE NEGATIVE (NEGATIVE); KETONES,URINE NEGATIVE (NEGATIVE); LEUKOCYTE ESTERASE ,URINE NEGATIVE (NEGATIVE); NITRITE,URINE NEGATIVE (NEGATIVE); PH,URINE 6 (5-9); PROTEIN,URINE 1+ (NEGATIVE); UROBILINOGEN,URINE NORMAL (NORMAL)
--- NOTE | 2017-08-22 16:31 | ED General ---
General Chief Complaint: Neurological Problems Stated Complaint: FALL Source of Information: Patient, EMS Exam Limitations: No Limitations History of Present Illness Time Seen by Provider: 16:28 Initial Comments TO ER per EMS from home with reports of increased weakness, frequent falls, confusion. SHe has fallen and hit her head at some point according to family. She was discharged from here 3 days ago following an admission for the same. Timing/Duration: 1-2 Days Severity: Moderate Allergies and Home Medications Allergies Coded Allergies: Sulfa (Sulfonamide Antibiotics) (Verified Allergy, Unknown, 08/26/14) morphine (Verified Adverse Reaction, Mild, NAUSEA, 05/19/16) Home Medications Acetaminophen 500 Mg Tablet, 1,000 MG PO Q6H PRN for PAIN-MILD/FEVER for 30 Days Prescribed by: REJI ROY on 08/19/17 1041 Alprazolam 0.5 Mg Tablet, 0.5 MG PO DAILY PRN for ANXIETY, (Reported) Bupropion HCl 150 Mg Tab.er.24h, 450 MG PO DAILY, (Reported) LAST FILLED #90 07-06-17 TAKES 3 (150MG) TABLETS Dextroamphetamine/Amphetamine 30 Mg Tablet, 30 MG PO DAILY, (Reported) Escitalopram Oxalate 20 Mg Tablet, 20 MG PO DAILY, (Reported) Estradiol 0.5 Mg Tablet, 0.5 MG PO DAILY, (Reported) LAST FILLED #90 05-10-17 Gabapentin 100 Mg Capsule, 200 MG PO BID, (Reported) TAKES 2 (100MG) CAPSULES Glucosamine HCl/Chondr Bentley A Na 1 Each Tablet, 1 TAB PO DAILY, (Reported) Insulin Aspart 300 Units/3 Ml Solution, 10-12 UNITS SQ TIDAC, (Reported) Insulin Detemir 100 Unit/1 Ml Insuln.pen, 30 UNITS SQ BID, (Reported) LAST FILLED 06-15-17 Lactobacillus Acidophilus 1 Each Capsule, 1 CAP PO DAILY, (Reported) Lisinopril 10 Mg Tablet, 10 MG PO DAILY, (Reported) Multivitamin 1 Each Tablet, 1 TAB PO DAILY, (Reported) Pantoprazole Sodium 40 Mg Tablet.dr, 40 MG PO DAILY, (Reported) Tramadol HCl 50 Mg Tablet, 50 MG PO TID PRN for PAIN-MODERATE, (Reported) Vit C/E/Zn/Coppr/Lutein/Zeaxan 1 Each Capsule, 1 TAB PO BID, (Reported) Constitutional: see HPI EENTM: see HPI Respiratory: no symptoms reported Cardiovascular: no symptoms reported Genitourinary: no symptoms reported Musculoskeletal: no symptoms reported Skin: no symptoms reported Psychiatric/Neurological: No Symptoms Reported Hematologic/Lymphatic: No Symptoms Reported Immunological/Allergic: no symptoms reported Past Wijrwsv-Ejydgh-Zdrklt Hx Patient Social History Alcohol Use: Denies Use Number of Drinks Today: GG Alcohol Beverage of Choice: Whiskey Recreational Drug Use: No Smoking Status: Current Everyday Smoker Type Used: Cigarettes Former Smoker, Quit: Feb 18, 2016 2nd Hand Smoke Exposure: Yes Recent Hopitalizations: No Immunizations Up To Date Tetanus Booster (TDap): Less than 5yrs PED Vaccines UTD: No Date of Pneumonia Vaccine: Aug 13, 2015 Date of Influenza Vaccine: Jul 31, 2016 Seasonal Allergies Seasonal Allergies: Yes Surgeries History of Surgeries: Yes (incis hernia rpr x2, gastric bypass/reversed, BL knee scope, L total knee) Surgeries: Abdominal, Section, Hysterectomy Respiratory History of Respiratory Disorde: No Cardiovascular History of Cardiac Disorders: Yes Cardiac Disorders: 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 Neurological History of Neurological Disord: No 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 System Hx 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 Disorders: No Sexually Transmitted Disease: No Genitourinary History of Genitourinary Disor: No Gastrointestinal History of Gastrointestinal Di: Yes Gastrointestinal Disorders: Gastroesophageal Reflux Musculoskeletal History of Musculoskeletal Dis: Yes Musculoskeletal Disorders: Arthritis Endocrine History of Endocrine Disorders: Yes Endocrine Disorders: Diabetes, Insulin dep HEENT History of HEENT Disorders: Yes HEENT Disorders: Cataract Cancer History of Cancer: No Psychosocial History of Psychiatric Problem: Yes Behavioral Health Disorders: Anxiety Integumentary History of Skin or Integumenta: Yes Skin/Integumentary Disorders: Psoriasis Blood Transfusions History of Blood Disorders: No Family Medical History Significant Family History: No Pertinent Family Hx Family Medial History: AIDS Alcoholism Arthritis Asthma Cataracts Coronary thrombosis Diabetes mellitus Drug abuse Glaucoma Psychosocial problem Respiratory disorder No Family History of: Iliff's disease Alzheimer's disease Aphasia Cancer of mouth Cardiovascular disease Colon cancer Completed stroke Congenital disease Congenital heart disease Cystic fibrosis Deafness or hearing loss Dementia Dysphasia Fibrocystic disease of breast Gastroenteritis Headache disorder Hypercholesterolemia 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 Infertility Kidney disease Myocardial infarction Neoplasm Not obtainable due to adoption Osteoporosis Parkinson's disease Prostate cancer Seizure disorder Severe allergy Thyroid disease Tuberculosis Visual disorder Physical Exam Vital Signs Vital Sign - Last 12Hours 08/22/17 16:12 Temp 98.4 Pulse 78 Resp 18 B/P (MAP) 116/86 Pulse Ox 92 O2 Delivery Room Air Capillary Refill : General Appearance: No Apparent Distress, WD/WN, Other (moves all extremities, GCS 15) Eyes: Bilateral Eye Normal Inspection, Bilateral Eye PERRL, Bilateral Eye EOMI HEENT: PERRL/EOMI, TMs Normal, Normal ENT Inspection Neck: Full Range of Motion, Normal Inspection Respiratory: No Accessory Muscle Use, No Respiratory Distress Cardiovascular: Regular Rate, Rhythm, Normal Peripheral Pulses Gastrointestinal: Non Tender, Soft Neurologic/Psychiatric: Alert, Oriented x3, No Motor/Sensory Deficits Skin: Normal Color, Warm/Dry Progress/Results/Core Measures Results/Orders Lab Results Laboratory Tests Test 08/22/17 16:18 08/22/17 16:43 Range/Units Urine Color YELLOW Urine Clarity CLEAR Urine pH 6 5-9 Urine Specific [place] 1.010 L 1.016-1.022 Urine Protein 1+ H NEGATIVE Urine Glucose (UA) 4+ H NEGATIVE Urine Ketones NEGATIVE NEGATIVE Urine Nitrite NEGATIVE NEGATIVE Urine Bilirubin NEGATIVE NEGATIVE Urine Urobilinogen NORMAL NORMAL MG/DL Urine Leukocyte Esterase NEGATIVE NEGATIVE Urine RBC (Auto) NEGATIVE NEGATIVE Urine RBC NONE /HPF Urine WBC 0-2 /HPF Urine Squamous Epithelial Cells RARE /HPF Urine Crystals NONE /LPF Urine Bacteria NONE /HPF Urine Casts NONE /LPF Urine Mucus NEGATIVE /LPF Urine Culture Indicated NO Urine Opiates Screen NEGATIVE NEGATIVE Urine Oxycodone Screen NEGATIVE NEGATIVE Urine Methadone Screen NEGATIVE NEGATIVE Urine Propoxyphene Screen NEGATIVE NEGATIVE Urine Barbiturates Screen NEGATIVE NEGATIVE Ur Tricyclic Antidepressants Screen POSITIVE H NEGATIVE Urine Phencyclidine Screen NEGATIVE NEGATIVE Urine Amphetamines Screen POSITIVE H NEGATIVE Urine Methamphetamines Screen NEGATIVE NEGATIVE Urine Benzodiazepines Screen POSITIVE H NEGATIVE Urine Cocaine Screen NEGATIVE NEGATIVE Urine Cannabinoids Screen NEGATIVE NEGATIVE White Blood Count 7.9 4.3-11.0 10^3/uL Red Blood Count 4.73 4.35-5.85 10^6/uL Hemoglobin 14.2 11.5-16.0 G/DL Hematocrit 41 35-52 % Mean Corpuscular Volume 87 80-99 FL Mean Corpuscular Hemoglobin 30 25-34 PG Mean Corpuscular Hemoglobin Concent 34 32-36 G/DL Red Cell Distribution Width 13.6 10.0-14.5 % Platelet Count 210 130-400 10^3/uL Mean Platelet Volume 9.1 7.4-10.4 FL Neutrophils (%) (Auto) 78 H 42-75 % Lymphocytes (%) (Auto) 13 12-44 % Monocytes (%) (Auto) 7 0-12 % Eosinophils (%) (Auto) 2 0-10 % Basophils (%) (Auto) 0 0-10 % Neutrophils # (Auto) 6.2 1.8-7.8 X 10^3 Lymphocytes # (Auto) 1.0 1.0-4.0 X 10^3 Monocytes # (Auto) 0.6 0.0-1.0 X 10^3 Eosinophils # (Auto) 0.2 0.0-0.3 10^3/uL Basophils # (Auto) 0.0 0.0-0.1 10^3/uL Prothrombin Time 12.5 12.2-14.7 SEC INR Comment 0.9 0.8-1.4 Sodium Level 133 L 135-145 MMOL/L Potassium Level 4.2 3.6-5.0 MMOL/L Chloride Level 95 L 98-107 MMOL/L Carbon Dioxide Level 30 21-32 MMOL/L Anion Gap 8 5-14 MMOL/L Blood Urea Nitrogen 11 7-18 MG/DL Creatinine 0.85 0.60-1.30 MG/DL Estimat Glomerular Filtration Rate > 60 BUN/Creatinine Ratio 13 Glucose Level 265 H 70-105 MG/DL Calcium Level 9.6 8.5-10.1 MG/DL Total Bilirubin 0.4 0.1-1.0 MG/DL Aspartate Amino Transf (AST/SGOT) 21 5-34 U/L Alanine Aminotransferase (ALT/SGPT) 18 0-55 U/L Alkaline Phosphatase 136 40-136 U/L Troponin I < 0.30 <0.30 NG/ML Total Protein 6.9 6.4-8.2 GM/DL Albumin 3.6 3.2-4.5 GM/DL Serum Alcohol < 10 <10 MG/DL My Orders Orders - ANATOLY OBRIEN APRN Cbc With Automated Diff (08/22/17 16:24) Comprehensive Metabolic Panel (08/22/17 16:24) Ua Culture If Indicated (08/22/17 16:24) Protime With Inr (08/22/17 16:24) Chest 1 View, Ap/Pa Only (08/22/17 16:24) Ekg Tracing (08/22/17 16:24) Troponin I (08/22/17 16:24) Ct Head Wo (08/22/17 16:24) Alcohol (08/22/17 16:24) Drug Screen Stat (Urine) (08/22/17 16:24) Knee, Right, 3 Views (08/22/17 16:48) Vital Signs/I&O Vital Sign - Last 12Hours 08/22/17 16:12 Temp 98.4 Pulse 78 Resp 18 B/P (MAP) 116/86 Pulse Ox 92 O2 Delivery Room Air Diagnostic Imaging Diagonstic Imaging: CT Comments NAME: JANEEN MAC [facility] REC#: [id number] PT STATUS: REG ER : 1955 PHYSICIAN: ANATOLY OBRIEN APRN ADMIT DATE: 08/22/17/ER Draft Date of Exam:08/22/17 CT HEAD WO PROCEDURE: CT head without contrast. TECHNIQUE: Multiple contiguous axial images were obtained through the brain without the use of intravenous contrast. INDICATION: Fall. FINDINGS: There is no intracranial hemorrhage, edema or mass effect. The brain parenchyma and cedeno-white matter differentiation is preserved. No hydrocephalus. No extra-axial fluid collection seen. The calvarium and orbits appear grossly unremarkable. The right mastoid air cells and the middle ear cavity appear partially opacified. This is slightly more prominent compared to 08/17/2017 exam. IMPRESSION: No intracranial hemorrhage. Partially opacified right mastoid air cells and middle ear cavity could relate to mastoiditis and otitis media. If there is focal tenderness at this location, then dedicated temporal bone CT scan to rule out a fracture could be considered. Dictated on workstation # [id number] Dict: 08/22/171709 Trans: 08/22/17 1716 KB [id number] Interpreted by: HEIDE DAY MD Electronically signed by: Departure Communication (Admissions) Progress Notes I did discuss the case with Dr. Awad. There would be no indication to admit this patient. She should follow up with primary care tomorrow. 1753-daughter and ex- at the bedside. Upset that the patient cannot be admitted to the hospital or to assisted living at this time. They state that she was only able to get to the EMS cot with the help of 6 people today. She can't possibly go home and ambulate. However, I demonstrated to them that I'm able to get her up and walk her around the room by myself and even for a brief period she lets go and walks on her own accord without assistive device.. Impression Impression: Primary Impression: Frequent falls Disposition: HOME, SELF-CARE Condition: Stable Departure-Patient Inst. Decision time for Depature: 17:42 Referrals: REJI ROY MD (PCP/Family) Primary Care Physician Patient Instructions: NO INSTRUCTIONS GIVEN Add. Discharge Instructions: 1. Call an assisted living facility your choosing tomorrow to request an evaluation for intake 2. Return to ER for any concerns Copy Copies To 1: REJI ROY MD, PETER J APRN Aug 22, 2017 16:31
[2017-08-22 16:38] LABS: SQUAMOUS EPITHELIAL CELL,UR RARE /HPF; WBC,URINE 0-2 /HPF
[2017-08-22 16:51] LABS: BASOPHILS % (AUTO) 0 % (0-10); EOSINOPHILS # (AUTO) 0.2 10^3/uL (0.0-0.3); EOSINOPHILS % (AUTO) 2 % (0-10); LYMPHOCYTES % (AUTO) 13 % (12-44); MEAN CORPUSCULAR HEMOGLOBIN 30 PG (25-34); MEAN CORPUSCULAR HGB CONC 34 G/DL (32-36); MEAN CORPUSCULAR VOLUME 87 FL (80-99); MEAN PLATELET VOLUME 9.1 FL (7.4-10.4); MONOCYTES # (AUTO) 0.6 X 10^3 (0.0-1.0); MONOCYTES % (AUTO) 7 % (0-12); NEUTROPHILS # (AUTO) 6.2 X 10^3 (1.8-7.8); NEUTROPHILS % (AUTO) 78 % (42-75); PLATELET COUNT 210 10^3/uL (130-400); RED BLOOD COUNT 4.73 10^6/uL (4.35-5.85); RED CELL DISTRIBUTION WIDTH 13.6 % (10.0-14.5); WHITE BLOOD COUNT 7.9 10^3/uL (4.3-11.0)
[2017-08-22 16:59] LABS: INR 0.9 (0.8-1.4); PROTHROMBIN TIME PATIENT 12.5 SEC (12.2-14.7)
[2017-08-22 17:06] LABS: ANION GAP 8 MMOL/L (5-14); BLOOD UREA NITROGEN 11 MG/DL (7-18); BUN/CREATININE RATIO 13; CARBON DIOXIDE 30 MMOL/L (21-32); CHLORIDE 95 MMOL/L (98-107); CREATININE SERUM 0.85 MG/DL (0.60-1.30); POTASSIUM 4.2 MMOL/L (3.6-5.0); SODIUM 133 MMOL/L (135-145)
[2017-08-22 17:07] LABS: ALANINE AMINOTRANSFERASE 18 U/L (0-55); ALBUMIN 3.6 GM/DL (3.2-4.5); ALCOHOL < 10 MG/DL (<10); ASPARTATE AMINO TRANSFERASE 21 U/L (5-34); BILIRUBIN,TOTAL 0.4 MG/DL (0.1-1.0); CALCIUM 9.6 MG/DL (8.5-10.1); GFR ESTIMATED > 60; GLUCOSE 265 MG/DL (70-105); TOTAL PROTEIN 6.9 GM/DL (6.4-8.2)
[2017-08-22 17:12] LABS: TROPONIN I < 0.30 NG/ML (<0.30)
--- NOTE | 2017-08-22 17:16 | Diagnostic Imaging Report ---
PROCEDURE: CT head without contrast. TECHNIQUE: Multiple contiguous axial images were obtained through the brain without the use of intravenous contrast. INDICATION: Fall. FINDINGS: There is no intracranial hemorrhage, edema or mass effect. The brain parenchyma and cedeno-white matter differentiation is preserved. No hydrocephalus. No extra-axial fluid collection seen. The calvarium and orbits appear grossly unremarkable. The right mastoid air cells and the middle ear cavity appear partially opacified. This is slightly more prominent compared to 08/17/2017 exam. IMPRESSION: 1. No intracranial hemorrhage. 2. Partially opacified right mastoid air cells and middle ear cavity could relate to mastoiditis and otitis media. If there is focal tenderness at this location from the fall, then dedicated temporal bone CT scan to rule out a fracture could be considered. Dictated by: Dictated on workstation # [id number]
--- NOTE | 2017-08-22 17:27 | Diagnostic Imaging Report ---
INDICATION: Fall. EXAMINATION: Right knee dated 08/22/2017. FINDINGS: Medial compartment narrowing and spurring are noted. There is mild patellofemoral narrowing, as well. There is no evidence of fracture or dislocation. IMPRESSION: 1. Chronic degenerative findings. No acute osseous abnormality. Dictated by: Dictated on workstation # [id number]
--- NOTE | 2017-08-22 17:34 | Diagnostic Imaging Report ---
INDICATION: Recurring falls. EXAMINATION: Chest 08/22/2017. COMPARISONS: 08/19/2017. FINDINGS: Right hemidiaphragm is slightly elevated. There is atelectasis at the right lung base. Remaining lungs are clear. Low lung volume is noted. No effusions. Heart is slightly prominent. Pulmonary vasculature mildly congested. IMPRESSION: 1. Mild prominence of the heart and pulmonary vasculature. 2. Right base atelectasis. Dictated by: Dictated on workstation # [id number]
[2017-08-22 18:20] VITALS: BP 146/90
== END 2017-08-22 18:20 | disposition home or self-care (01) ==
LOC: EDUNIT# 16:12 → ER 16:13
DX: R29.6 Repeated falls (principal); I10 Essential (primary) hypertension; K21.9 Gastro-esophageal reflux disease without esophagitis; E11.9 Type 2 diabetes mellitus without complications; F41.9 Anxiety disorder, unspecified; F17.210 Nicotine dependence, cigarettes, uncomplicated; Z87.19 Personal history of other diseases of the digestive system; Z98.84 Bariatric surgery status; Z90.710 Acquired absence of both cervix and uterus; Z79.4 Long term (current) use of insulin
CPT/HCPCS: 36415; 70450; 71010; 73562; 80053; 80306; 80320; 81000; 84484; 85025; 85610; 93005

== ENCOUNTER 2017-08-23 17:11 | Inpatient (IN) | payer MEDICARE ==
[~2017-08-23] VITALS: Ht 165.1 cm; Wt 120.7 kg
[2017-08-23 18:36] LABS: BILIRUBIN,URINE NEGATIVE (NEGATIVE); KETONES,URINE NEGATIVE (NEGATIVE); LEUKOCYTE ESTERASE ,URINE NEGATIVE (NEGATIVE); NITRITE,URINE NEGATIVE (NEGATIVE); PH,URINE 6 (5-9); PROTEIN,URINE NEGATIVE (NEGATIVE); UROBILINOGEN,URINE 1 MG/DL (NORMAL)
[2017-08-23 18:40] LABS: ALBUMIN 3.6 GM/DL (3.2-4.5); BASOPHILS % (AUTO) 0 % (0-10); BILIRUBIN,TOTAL 0.5 MG/DL (0.1-1.0); CALCIUM 9.3 MG/DL (8.5-10.1); EOSINOPHILS # (AUTO) 0.4 10^3/uL (0.0-0.3); EOSINOPHILS % (AUTO) 5 % (0-10); LYMPHOCYTES # (AUTO) 1.4 X 10^3 (1.0-4.0); LYMPHOCYTES % (AUTO) 19 % (12-44); MEAN CORPUSCULAR HEMOGLOBIN 31 PG (25-34); MEAN CORPUSCULAR HGB CONC 35 G/DL (32-36); MEAN CORPUSCULAR VOLUME 89 FL (80-99); MEAN PLATELET VOLUME 9.2 FL (7.4-10.4); MONOCYTES # (AUTO) 0.5 X 10^3 (0.0-1.0); MONOCYTES % (AUTO) 8 % (0-12); NEUTROPHILS # (AUTO) 4.8 X 10^3 (1.8-7.8); NEUTROPHILS % (AUTO) 68 % (42-75); PLATELET COUNT 206 10^3/uL (130-400); POTASSIUM 4.1 MMOL/L (3.6-5.0); RED BLOOD COUNT 4.62 10^6/uL (4.35-5.85); RED CELL DISTRIBUTION WIDTH 14.1 % (10.0-14.5); TOTAL PROTEIN 6.5 GM/DL (6.4-8.2); WHITE BLOOD COUNT 7.1 10^3/uL (4.3-11.0)
[2017-08-23 18:57] LABS: SQUAMOUS EPITHELIAL CELL,UR 0-2 /HPF; WBC,URINE RARE /HPF; YEAST,URINE LARGE /HPF
--- NOTE | 2017-08-23 19:23 | ED General ---
General Chief Complaint: Trauma-Non Activation Stated Complaint: UNSTEADY GAIT,DIZZINESS,CONFUSION Source of Information: Patient Exam Limitations: No Limitations History of Present Illness Time Seen by Provider: 19:18 Initial Comments The patient is a 62-year-old white female on her fifth ER contacts since 07/27. She was here yesterday. She had to contacts for what were said to be sepsis. The hospital stays were both 2 days. Subsequently she is been here 3 times for unsteady gait dizziness and falling. She was here yesterday. Nothing was discerned in her workup. Apparently she fell shortly after arriving home from her visit here suffering a bruise along the left jaw line. The 2 daughters states that there have been several other falls as well. They have been attempting to get her admitted to the assisted living. The apparently works. One daughter is up here from [place] and the other is a high school student. The patient is also a diabetic. She reports that she took only 1 dose of insulin today which was her 30 units of Levemir and 10 units of NovoLog just prior to coming here. Timing/Duration: Other Allergies and Home Medications Allergies Coded Allergies: Sulfa (Sulfonamide Antibiotics) (Verified Allergy, Unknown, 08/26/14) morphine (Verified Adverse Reaction, Mild, NAUSEA, 05/19/16) Home Medications Acetaminophen 500 Mg Tablet, 1,000 MG PO Q6H PRN for PAIN-MILD/FEVER for 30 Days Prescribed by: REJI ROY on 08/19/17 1041 Alprazolam 0.5 Mg Tablet, 0.5 MG PO DAILY PRN for ANXIETY, (Reported) Bupropion HCl 150 Mg Tab.er.24h, 450 MG PO DAILY, (Reported) LAST FILLED #90 07-06-17 TAKES 3 (150MG) TABLETS Dextroamphetamine/Amphetamine 30 Mg Tablet, 30 MG PO DAILY, (Reported) Escitalopram Oxalate 20 Mg Tablet, 20 MG PO DAILY, (Reported) Estradiol 0.5 Mg Tablet, 0.5 MG PO DAILY, (Reported) LAST FILLED #90 05-10-17 Gabapentin 100 Mg Capsule, 200 MG PO BID, (Reported) TAKES 2 (100MG) CAPSULES Glucosamine HCl/Chondr Bentley A Na 1 Each Tablet, 1 TAB PO DAILY, (Reported) Insulin Aspart 300 Units/3 Ml Solution, 10-12 UNITS SQ TIDAC, (Reported) Insulin Detemir 100 Unit/1 Ml Insuln.pen, 30 UNITS SQ BID, (Reported) LAST FILLED 06-15-17 Lactobacillus Acidophilus 1 Each Capsule, 1 CAP PO DAILY, (Reported) Lisinopril 10 Mg Tablet, 10 MG PO DAILY, (Reported) Multivitamin 1 Each Tablet, 1 TAB PO DAILY, (Reported) Pantoprazole Sodium 40 Mg Tablet.dr, 40 MG PO DAILY, (Reported) Tramadol HCl 50 Mg Tablet, 50 MG PO TID PRN for PAIN-MODERATE, (Reported) Vit C/E/Zn/Coppr/Lutein/Zeaxan 1 Each Capsule, 1 TAB PO BID, (Reported) Constitutional: see HPI EENTM: no symptoms reported Respiratory: no symptoms reported Cardiovascular: no symptoms reported Gastrointestinal: no symptoms reported Genitourinary: no symptoms reported Musculoskeletal: muscle weakness Skin: other (bruising from falls) Psychiatric/Neurological: Weakness, Other (gait disturbance) Hematologic/Lymphatic: No Symptoms Reported Past Xdzevfi-Pgcnyg-Znexks Hx Patient Social History Alcohol Beverage of Choice: Whiskey Type Used: Cigarettes Former Smoker, Quit: Feb 18, 2016 2nd Hand Smoke Exposure: Yes Recent Hopitalizations: No Immunizations Up To Date Tetanus Booster (TDap): Less than 5yrs PED Vaccines UTD: No Date of Pneumonia Vaccine: Aug 13, 2015 Date of Influenza Vaccine: Jul 31, 2016 Seasonal Allergies Seasonal Allergies: Yes Surgeries History of Surgeries: Yes (incis hernia rpr x2, gastric bypass/reversed, BL knee scope, L total knee) Surgeries: Abdominal, Section, Hysterectomy Respiratory History of Respiratory Disorde: No Cardiovascular History of Cardiac Disorders: Yes Cardiac Disorders: 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 Neurological History of Neurological Disord: No 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 System Hx 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 Disorders: No Sexually Transmitted Disease: No Genitourinary History of Genitourinary Disor: No Gastrointestinal History of Gastrointestinal Di: Yes Gastrointestinal Disorders: Gastroesophageal Reflux Musculoskeletal History of Musculoskeletal Dis: Yes Musculoskeletal Disorders: Arthritis Endocrine History of Endocrine Disorders: Yes Endocrine Disorders: Diabetes, Insulin dep HEENT History of HEENT Disorders: Yes HEENT Disorders: Cataract Cancer History of Cancer: No Psychosocial History of Psychiatric Problem: Yes Behavioral Health Disorders: Anxiety Integumentary History of Skin or Integumenta: Yes Skin/Integumentary Disorders: Psoriasis Blood Transfusions History of Blood Disorders: No Family Medical History Significant Family History: No Pertinent Family Hx Family Medial History: AIDS Alcoholism Arthritis Asthma Cataracts Coronary thrombosis Diabetes mellitus Drug abuse Glaucoma Psychosocial problem Respiratory disorder No Family History of: Dale's disease Alzheimer's disease Aphasia Cancer of mouth Cardiovascular disease Colon cancer Completed stroke Congenital disease Congenital heart disease Cystic fibrosis Deafness or hearing loss Dementia Dysphasia Fibrocystic disease of breast Gastroenteritis Headache disorder Hypercholesterolemia 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 Infertility Kidney disease Myocardial infarction Neoplasm Not obtainable due to adoption Osteoporosis Parkinson's disease Prostate cancer Seizure disorder Severe allergy Thyroid disease Tuberculosis Visual disorder Physical Exam Vital Signs Vital Sign - Last 12Hours 08/23/17 17:45 Temp 97.9 Pulse 100 Resp 18 B/P (MAP) 141/74 Pulse Ox 95 Capillary Refill : General Appearance: Anxious, Mild Distress Eyes: Bilateral Eye Abnormal Pupil (bilateral dilatation) HEENT: Normal ENT Inspection Neck: Full Range of Motion, Normal Inspection, Non Tender, Supple, Carotid Bruit Respiratory: Chest Non Tender, Lungs Clear, Normal Breath Sounds, No Accessory Muscle Use, No Respiratory Distress Cardiovascular: Regular Rate, Rhythm, No Edema, No Gallop, No JVD, No Murmur, Normal Peripheral Pulses Gastrointestinal: Normal Bowel Sounds, No Organomegaly, No Pulsatile Mass, Non Tender, Soft Neurologic/Psychiatric: Alert, Oriented x3, No Motor/Sensory Deficits, 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 There is a fresh ecchymosis along the left jawline. There are older-appearing ecchymoses on the anterior abdomen. Also noted is an ecchymosis on the left right flank area and multiple shallow abrasions and ecchymoses over the lower legs. Progress/Results/Core Measures Results/Orders Lab Results Laboratory Tests Test 08/23/17 18:05 08/23/17 18:25 08/23/17 18:28 Range/Units White Blood Count 7.1 4.3-11.0 10^3/uL Red Blood Count 4.62 4.35-5.85 10^6/uL Hemoglobin 14.3 11.5-16.0 G/DL Hematocrit 41 35-52 % Mean Corpuscular Volume 89 80-99 FL Mean Corpuscular Hemoglobin 31 25-34 PG Mean Corpuscular Hemoglobin Concent 35 32-36 G/DL Red Cell Distribution Width 14.1 10.0-14.5 % Platelet Count 206 130-400 10^3/uL Mean Platelet Volume 9.2 7.4-10.4 FL Neutrophils (%) (Auto) 68 42-75 % Lymphocytes (%) (Auto) 19 12-44 % Monocytes (%) (Auto) 8 0-12 % Eosinophils (%) (Auto) 5 0-10 % Basophils (%) (Auto) 0 0-10 % Neutrophils # (Auto) 4.8 1.8-7.8 X 10^3 Lymphocytes # (Auto) 1.4 1.0-4.0 X 10^3 Monocytes # (Auto) 0.5 0.0-1.0 X 10^3 Eosinophils # (Auto) 0.4 H 0.0-0.3 10^3/uL Basophils # (Auto) 0.0 0.0-0.1 10^3/uL Sodium Level 131 L 135-145 MMOL/L Potassium Level 4.1 3.6-5.0 MMOL/L Chloride Level 95 L 98-107 MMOL/L Carbon Dioxide Level 25 21-32 MMOL/L Anion Gap 11 5-14 MMOL/L Blood Urea Nitrogen 12 7-18 MG/DL Creatinine 1.00 0.60-1.30 MG/DL Estimat Glomerular Filtration Rate 56 BUN/Creatinine Ratio 12 Glucose Level 469 *H 70-105 MG/DL Calcium Level 9.3 8.5-10.1 MG/DL Total Bilirubin 0.5 0.1-1.0 MG/DL Aspartate Amino Transf (AST/SGOT) 16 5-34 U/L Alanine Aminotransferase (ALT/SGPT) 19 0-55 U/L Alkaline Phosphatase 139 H 40-136 U/L Total Protein 6.5 6.4-8.2 GM/DL Albumin 3.6 3.2-4.5 GM/DL Serum Alcohol < 10 <10 MG/DL Urine Opiates Screen NEGATIVE NEGATIVE Urine Oxycodone Screen NEGATIVE NEGATIVE Urine Methadone Screen NEGATIVE NEGATIVE Urine Propoxyphene Screen NEGATIVE NEGATIVE Urine Barbiturates Screen NEGATIVE NEGATIVE Ur Tricyclic Antidepressants Screen POSITIVE H NEGATIVE Urine Phencyclidine Screen NEGATIVE NEGATIVE Urine Amphetamines Screen POSITIVE H NEGATIVE Urine Methamphetamines Screen NEGATIVE NEGATIVE Urine Benzodiazepines Screen POSITIVE H NEGATIVE Urine Cocaine Screen NEGATIVE NEGATIVE Urine Cannabinoids Screen NEGATIVE NEGATIVE Urine Color YELLOW Urine Clarity CLEAR Urine pH 6 5-9 Urine Specific [place] 1.010 L 1.016-1.022 Urine Protein NEGATIVE NEGATIVE Urine Glucose (UA) 4+ H NEGATIVE Urine Ketones NEGATIVE NEGATIVE Urine Nitrite NEGATIVE NEGATIVE Urine Bilirubin NEGATIVE NEGATIVE Urine Urobilinogen 1 NORMAL MG/DL Urine Leukocyte Esterase NEGATIVE NEGATIVE Urine RBC (Auto) NEGATIVE NEGATIVE Urine RBC NONE /HPF Urine WBC RARE /HPF Urine Squamous Epithelial Cells 0-2 /HPF Urine Crystals NONE /LPF Urine Bacteria NEGATIVE /HPF Urine Casts NONE /LPF Urine Mucus NEGATIVE /LPF Urine Yeast LARGE H /HPF Urine Culture Indicated NO My Orders Orders - MARK MCCOY MD Cbc With Automated Diff (08/23/17 18:17) Comprehensive Metabolic Panel (08/23/17 18:17) Ua Culture If Indicated (08/23/17 18:17) Alcohol (08/23/17 18:41) Drug Screen Stat (Urine) (08/23/17 18:41) Vital Signs/I&O Vital Sign - Last 12Hours 08/23/17 17:45 Temp 97.9 Pulse 100 Resp 18 B/P (MAP) 141/74 Pulse Ox 95 Departure Communication (Admissions) Progress Notes [address] EPPS. The patient will be admitted. Impression Impression: Primary Impression: diabetes poorly controlled. Additional Impression: gait disturbance with multiple falls Disposition: ADMITTED INPATIENT Condition: Stable/Unchanged Admissions Decision to Admit Reason: Admit from ER (General) Decision to Admit/Date: Aug 23, 2017 Time/Decision to Admit Time: 19:34 Departure-Patient Inst. Referrals: REJI ROY MD (PCP/Family) Primary Care Physician MARK MCCOY MD Aug 23, 2017 19:23
[2017-08-23] MEDS ORDERED: inSUlin ASPART (NovoLOG) 1 UNIT/0.01 ML (CHARGE PER UNIT) SC ONE (19:45)
[2017-08-23 20:00] VITALS: BP 133/73
[2017-08-23] MEDS ORDERED: NS IV 1000 ML 1,000 ML ONE (21:03)
[2017-08-23] MEDS: inSUlin DETERMIR 1 UNIT/0.01 ML (LEVEMIR) CHARGE PER UNIT SQ SCH (21:59)
[2017-08-23] MEDS: NS IV 1000 ML 1,000 ML IV SCH (22:00)
[2017-08-24 00:33] VITALS: BP 113/51
[2017-08-24 04:14] VITALS: BP 124/56
[2017-08-24] MEDS: inSUlin (REGULAR) HUMAN 1 UNIT/0.01 ML (CHARGE PER UNIT) SC SCH ×2 (06:23→10:54)
[2017-08-24] MEDS ORDERED: INFLUENZA TRIvalent 2017-2018 0.5 ML/45 MCG SYR IM ONE (07:15)
[2017-08-24 08:00] VITALS: BP 113/51
[2017-08-24] MEDS: NS IV 1000 ML 1,000 ML IV SCH ×2 (08:23→16:23)
[2017-08-24] MEDS: inSUlin DETERMIR 1 UNIT/0.01 ML (LEVEMIR) CHARGE PER UNIT SQ SCH ×2 (08:23→21:10)
[2017-08-24 12:00] VITALS: BP 133/77
--- NOTE | 2017-08-24 13:14 | History & Physicial ([facility]) ---
HPI History of Present Illness: Patient was admitted after presenting to the ED with multiple complaints, including being found with a TV on top of her after falling on the floor. The patient reports that she has been having increasing falls over the last 5 months , but has increased significantly over the last three weeks or so. The patient states that she doesn't need to be here and she wants to go home. Nursing reports that this morning the patient was found drinking whiskey and taking Xanax from her purse. The patient currently lives with her daughter, she has another daughter who is visiting from out of town that brought her to the hospital. When the patient was asked about her drinking, the patient initially reported that she had 2-3 drinks of whisky or bourbon daily, but then quickly started to change her story on how much she drank when her family came in, and stated that she would have 1 or 2 drinks, "but not every day" and that she only did it because she had a lot of pain from her arthritis. Source: patient, family, RN/MD, RN notes reviewed Exam Limitations: clinical condition Date seen by provider: Aug 24, 2017 Time Seen by Provider: 10:00 Attending Physician Courtney Mendes MD PCP Courtney Mendes MD Consult Date of Admission Aug 23, 2017 at 19:42 Home Medications Home Medications Reviewed patient Home Medication Reconciliation Form Allergies Coded Allergies: Sulfa (Sulfonamide Antibiotics) (Verified Allergy, Unknown, 08/26/14) morphine (Verified Adverse Reaction, Mild, NAUSEA, 05/19/16) SBV-Pybjhz-Bkrmfz Hx Patient Social History Marrital Status: Number of Children: 2 Living Status: lives with daughter Employed/Student: unemployed Alcohol Use: Regular Use (difficult to discern how much the patient actually drinks, but she initially admitted to having 2-3 drinks per day) Recreational Drug Use: No Smoking Status: Former Smoker Type Used: Cigarettes 2nd Hand Smoke Exposure: Yes Recent Foreign Travel: No Contact w/other who traveled: No Recent Hopitalizations: Yes Recent Infectious Disease Expo: No Physical Abuse Screen: No Sexual Abuse: No Immunizations Up To Date Tetanus Booster (TDap): Less than 5yrs Date of Pneumonia Vaccine: Aug 13, 2015 Date of Influenza Vaccine: Jul 31, 2016 Past Medical History IDDM HTN Tobacco USE Arthritis Alcohol Abuse Medical Noncompliance Frequent Falls Family Medical History Significant Family History: No Pertinent Family Hx Family History: AIDS Alcoholism Arthritis Asthma Cataracts Coronary thrombosis Diabetes mellitus Drug abuse Glaucoma Psychosocial problem Respiratory disorder No Family History of: Woodford's disease Alzheimer's disease Aphasia Cancer of mouth Cardiovascular disease Colon cancer Completed stroke Congenital disease Congenital heart disease Cystic fibrosis Deafness or hearing loss Dementia Dysphasia Fibrocystic disease of breast Gastroenteritis Headache disorder Hypercholesterolemia 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 Infertility Kidney disease Myocardial infarction Neoplasm Not obtainable due to adoption Osteoporosis Parkinson's disease Prostate cancer Seizure disorder Severe allergy Thyroid disease Tuberculosis Visual disorder Review of Systems ([facility]) Constitutional: see HPI, No chills, No diaphoresis, No dizziness, malaise, weakness EENTM: no symptoms reported Respiratory: cough, No hemoptysis Cardiovascular: No chest pain, No palpitations, syncope Gastrointestinal: no symptoms reported, No abdominal pain, No diarrhea, No jaundice, No nausea, No vomiting Genitourinary: No dysuria, No hematuria, No pain Musculoskeletal: back pain, joint pain Skin: no symptoms reported Psychiatric/Neurological: Anxiety, Depressed, Weakness Reviewed Test Results Reviewed Test Results Lab Laboratory Tests Test 08/23/17 18:05 08/23/17 18:25 08/23/17 18:28 08/24/17 05:53 Range/Units White Blood Count 7.1 4.3-11.0 10^3/uL Red Blood Count 4.62 4.35-5.85 10^6/uL Hemoglobin 14.3 11.5-16.0 G/DL Hematocrit 41 35-52 % Mean Corpuscular Volume 89 80-99 FL Mean Corpuscular Hemoglobin 31 25-34 PG Mean Corpuscular Hemoglobin Concent 35 32-36 G/DL Red Cell Distribution Width 14.1 10.0-14.5 % Platelet Count 206 130-400 10^3/uL Mean Platelet Volume 9.2 7.4-10.4 FL Neutrophils (%) (Auto) 68 42-75 % Lymphocytes (%) (Auto) 19 12-44 % Monocytes (%) (Auto) 8 0-12 % Eosinophils (%) (Auto) 5 0-10 % Basophils (%) (Auto) 0 0-10 % Neutrophils # (Auto) 4.8 1.8-7.8 X 10^3 Lymphocytes # (Auto) 1.4 1.0-4.0 X 10^3 Monocytes # (Auto) 0.5 0.0-1.0 X 10^3 Eosinophils # (Auto) 0.4 H 0.0-0.3 10^3/uL Basophils # (Auto) 0.0 0.0-0.1 10^3/uL Sodium Level 131 L 135-145 MMOL/L Potassium Level 4.1 3.6-5.0 MMOL/L Chloride Level 95 L 98-107 MMOL/L Carbon Dioxide Level 25 21-32 MMOL/L Anion Gap 11 5-14 MMOL/L Blood Urea Nitrogen 12 7-18 MG/DL Creatinine 1.00 0.60-1.30 MG/DL Estimat Glomerular Filtration Rate 56 BUN/Creatinine Ratio 12 Glucose Level 469 *H 70-105 MG/DL Calcium Level 9.3 8.5-10.1 MG/DL Total Bilirubin 0.5 0.1-1.0 MG/DL Aspartate Amino Transf (AST/SGOT) 16 5-34 U/L Alanine Aminotransferase (ALT/SGPT) 19 0-55 U/L Alkaline Phosphatase 139 H 40-136 U/L Total Protein 6.5 6.4-8.2 GM/DL Albumin 3.6 3.2-4.5 GM/DL Serum Alcohol < 10 <10 MG/DL Urine Opiates Screen NEGATIVE NEGATIVE Urine Oxycodone Screen NEGATIVE NEGATIVE Urine Methadone Screen NEGATIVE NEGATIVE Urine Propoxyphene Screen NEGATIVE NEGATIVE Urine Barbiturates Screen NEGATIVE NEGATIVE Ur Tricyclic Antidepressants Screen POSITIVE H NEGATIVE Urine Phencyclidine Screen NEGATIVE NEGATIVE Urine Amphetamines Screen POSITIVE H NEGATIVE Urine Methamphetamines Screen NEGATIVE NEGATIVE Urine Benzodiazepines Screen POSITIVE H NEGATIVE Urine Cocaine Screen NEGATIVE NEGATIVE Urine Cannabinoids Screen NEGATIVE NEGATIVE Urine Color YELLOW Urine Clarity CLEAR Urine pH 6 5-9 Urine Specific [place] 1.010 L 1.016-1.022 Urine Protein NEGATIVE NEGATIVE Urine Glucose (UA) 4+ H NEGATIVE Urine Ketones NEGATIVE NEGATIVE Urine Nitrite NEGATIVE NEGATIVE Urine Bilirubin NEGATIVE NEGATIVE Urine Urobilinogen 1 NORMAL MG/DL Urine Leukocyte Esterase NEGATIVE NEGATIVE Urine RBC (Auto) NEGATIVE NEGATIVE Urine RBC NONE /HPF Urine WBC RARE /HPF Urine Squamous Epithelial Cells 0-2 /HPF Urine Crystals NONE /LPF Urine Bacteria NEGATIVE /HPF Urine Casts NONE /LPF Urine Mucus NEGATIVE /LPF Urine Yeast LARGE H /HPF Urine Culture Indicated NO Glucometer 324 H 70-110 MG/DL Test 08/24/17 10:43 08/24/17 15:25 08/24/17 20:32 Range/Units Glucometer 369 H 215 H 141 H 70-110 MG/DL Physical Exam-([facility]) Physical Exam Vital Signs VS - Last 72 Hours, by Label 08/23/17 08/23/17 08/23/17 08/23/17 17:45 20:00 20:02 20:15 Temp 97.9 97.7 98.0 Pulse 100 81 91 Resp 18 18 14 B/P (MAP) 141/74 133/73 Pulse Ox 95 96 95 96 O2 Delivery Room Air Room Air Room Air 08/24/17 08/24/17 08/24/17 08/24/17 00:33 04:14 08:00 09:00 Temp 98.3 98.1 98.3 Pulse 88 82 88 Resp 18 18 18 B/P (MAP) 113/51 124/56 113/51 Pulse Ox 94 93 94 O2 Delivery Room Air Room Air Room Air Room Air 08/24/17 08/24/17 08/24/17 08/24/17 12:00 16:00 17:44 19:47 Temp 98.6 99.3 99.1 Pulse 84 80 81 88 Resp 20 16 22 B/P (MAP) 133/77 136/61 149/79 Pulse Ox 94 95 94 O2 Delivery Room Air Room Air Room Air Capillary Refill : Less Than 3 Seconds General Appearance: WD/WN, mild distress Eyes: Bilateral Eye Normal Inspection HEENT: PERRL/EOMI, normal ENT inspection, No scleral icterus (R), No scleral icterus (L), No photophobia Neck: non-tender, full range of motion, supple, normal inspection Respiratory: chest non-tender, normal breath sounds, no respiratory distress, no accessory muscle use, No crackles, No rales, No rhonchi Cardiovascular: regular rate, rhythm, no gallop, no murmur Peripheral Pulses: 2+ Radial Pulses (R), 2+ Radial Pulses (L) Gastrointestinal: normal bowel sounds, non tender, soft, no organomegaly, no pulsatile mass, No distended, No guarding, No rebound Back: No CVA tenderness (R), No CVA tenderness (L) Extremities: normal range of motion, normal capillary refill, No calf tenderness 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/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: 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, no motor/sensory deficits, alert, oriented x 3, depressed affect Skin: warm/dry, ecchymosis (left facial bruising) Lymphatic: no adenopathy Clinical Quality Measures DVT/VTE Risk/Contraindication: Risk Factor Score Per Nursin RFS Level Per Nursing on Admit: 4+=Very High Assessment/Plan Assessment/Plan Admission Dx Frequent Falls Uncontrolled Diabetes Mellitus, Type II Anxiety Depression ETOH Abuse Recent Hospitalization for Sepsis Plan Frequent Falls -the patient has had multiple trips to the ED in the last 2 weeks for falls, as well as multiple visits to the clinic -the patient has obvious bruising on her face and left arm -pt unable to be clear about why she falls, states she doesn't use her walker at home because there is not room Uncontrolled Diabetes Mellitus, Type II -significant hyperglycemia in ED -suspect dietary and medication noncompliance -sliding scale insulin with accucheck AC and HS -hold home insulin for now Anxiety -continue home medication Depression -continue home medication ETOH Abuse -pt's initial admission was that she drinks significant amounts on a daily basis ; she quickly withdrew this statement when other family members were present, stating she "doesn't have a problem" and 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 -family expresses concern that due to pt's experience working in this field that she knows what to say to minimize her drinking --pt had recent hospitalization for sepsis and it was not disclosed during this hospitalization that the patient drinks frequently; suspect that patient experienced some alcohol withdrawal, and that this was the cause of at least some of the patient's falls when she was discharged home -CIWA protocol with ativan for s/s of withdrawal Due to the patient's frequent falling, her uncontrolled diabetes, her labile emotional state and her apparent alcohol abuse, she requires an inpatient level of care for stabilization and further evaluation. It is anticipated that she will require 3-4 days in the hospital. PHUONG EPPS DO Aug 24, 2017 13:14
[2017-08-24] MEDS ORDERED: 1/2 NS IV SOLUTION 1,000 ML IV PRN (13:57)
[2017-08-24] MEDS ORDERED: ACETAMINOPHEN 500 MG TAB (TYLENOL) PO PRN (14:00)
[2017-08-24] MEDS ORDERED: LORazepam INJ 2 MG/ML (ATIVAN) VIAL IV PRN (14:00)
[2017-08-24] MEDS ORDERED: LORazepam INJ 2 MG/ML (ATIVAN) VIAL IM/IV PRN (14:00)
[2017-08-24] MEDS ORDERED: RX-TRAMADOL 50 MG (ULTRAM) TAB PPK#4 PO PRN (14:00)
[2017-08-24] MEDS ORDERED: D5 1/2 NS 1000 ML IV SOLUTION 1,000 ML IV PRN (14:00)
[2017-08-24] MEDS ORDERED: SENNA W/DOCUSATE (SENOKOT S) TABLET PO PRN (14:00)
[2017-08-24] MEDS ORDERED: ANTACID SUSP 30 ML UDC (MYLANTA) PO PRN (14:00)
[2017-08-24] MEDS ORDERED: ONDANSETRON 4 MG/2 ML (SDV) Z0FRAN IV PRN (14:00)
[2017-08-24 16:00] VITALS: BP 136/61
[2017-08-24] MEDS: inSUlin ASPART (NovoLOG) 1 UNIT/0.01 ML (CHARGE PER UNIT) SC SCH ×2 (16:19→20:41)
[2017-08-24 19:47] VITALS: BP 149/79
[2017-08-24] MEDS ORDERED: inSUlin DETERMIR 1 UNIT/0.01 ML (LEVEMIR) CHARGE PER UNIT SQ SCH (21:00)
[2017-08-24] MEDS ORDERED: NON-FORMULARY MEDICATION 1 EA EA (Vit C/E/Zn/Coppr/Lutein/Zeaxan (Preservision Areds 2 Sof PO SCH (21:00)
[2017-08-24] MEDS ORDERED: NON-FORMULARY MEDICATION 1 EA EA (Insulin Detemir (Levemir Flextouch) 30 UNITS) SQ SCH (21:00)
[2017-08-24] MEDS: GABAPENTIN 100 MG (NEURONTIN) CAP PO SCH (21:09)
[2017-08-25] VITALS: BP 163/68
[2017-08-25 04:00] VITALS: BP 142/67
[2017-08-25] MEDS: NS IV 1000 ML 1,000 ML IV SCH ×3 (06:00→23:57)
[2017-08-25] MEDS: LACTOBACILLUS Acidoph/Bulgar (LACTINEX/FLORANEX) TAB PO SCH (06:01)
[2017-08-25] MEDS: PANTOPRAZOLE 40 MG (PROTONIX) TAB PO SCH (06:01)
[2017-08-25] MEDS: MULTIVIT W/MINERALS TAB (THERAGRAN M) PO SCH (06:01)
[2017-08-25] MEDS: buPROPion SR 150 MG (WELLBUTRIN SR) TAB PO SCH ×2 (06:01→16:51)
[2017-08-25] MEDS: THIAMINE 100 MG (VITAMIN B-1) TAB PO SCH (06:01)
[2017-08-25] MEDS: inSUlin ASPART (NovoLOG) 1 UNIT/0.01 ML (CHARGE PER UNIT) SC SCH ×4 (06:02→20:48)
[2017-08-25] MEDS: ESTRADIOL 1 MG TAB (ESTRACE) PO SCH (08:06)
[2017-08-25] MEDS: lisINopril 10 MG (PRINIVIL) TAB PO SCH (08:07)
[2017-08-25] MEDS: inSUlin DETERMIR 1 UNIT/0.01 ML (LEVEMIR) CHARGE PER UNIT SQ SCH ×2 (08:07→20:48)
[2017-08-25] MEDS: GABAPENTIN 100 MG (NEURONTIN) CAP PO SCH ×2 (08:07→20:48)
[2017-08-25 08:14] VITALS: BP 143/84
[2017-08-25] MEDS ORDERED: NON-FORMULARY MEDICATION 1 EA EA (Multivitamin (Daily Multiple Vitamin) 1 TAB) PO SCH (09:00)
[2017-08-25] MEDS ORDERED: buPROPion XL 150 MG (WELLBUTRIN XL) NON-FORM PO SCH (09:00)
[2017-08-25] MEDS ORDERED: NON-FORMULARY MEDICATION 1 EA EA (Estradiol (Estradiol Tablet) 0.5 MG) PO SCH (09:00)
[2017-08-25] MEDS ORDERED: NON-FORMULARY MEDICATION 1 EA EA (Escitalopram Oxalate 20 MG) PO SCH (09:00)
[2017-08-25] MEDS ORDERED: NON-FORMULARY MEDICATION 1 EA EA (Lactobacillus Acidophilus (Probiotic) 1 CAP) PO SCH (09:00)
--- NOTE | 2017-08-25 10:05 | Progress Note (SOAP) ---
Subjective Subjective/Events-last exam This morning the patient is seen while transferring back to bed after showering. She reports that she rested well last night and that she is feeling pretty good today. States that she doesn't remember seeing or being examined by this provider yesterday. Denies having any alcohol since yesterday morning. No concerns from nursing staff, no acute events overnight. Review of Systems Date Seen by Provider: Aug 25, 2017 Time Seen by Provider: 11:11 General: No Chills, No Night Sweats, No Fatigue, No Malaise HEENT: No Head Aches, No Visual Changes, No Eye Pain, No Ear Pain, No Dysphasia , No Sore Throat Pulmonary: No Dyspnea, No Cough Cardiovascular: No: Chest Pain, Palpitations, Orthopnea Gastrointestinal: No: Nausea, Vomiting, Abdominal Pain Genitourinary: No Dysuria, No Frequency Musculoskeletal: other (chronic arthritis pain) Neurological: No: Weakness, Numbness, Change in speech, Seizures Objective Exam Last Set of Vital Signs Vital Signs Date Time Temp Pulse Resp B/P (MAP) Pulse Ox O2 Delivery O2 Flow Rate FiO2 08/25/17 08:14 97.7 72 20 143/84 92 Room Air Capillary Refill : Less Than 3 Seconds I&O Intake and Output 08/26/17 00:00 Intake Total 2000 ml Output Total 500 ml Balance 1500 ml Intake Oral 1000 ml IV Total 1000 ml Output Urine Total 500 ml # Voids 2 General: Alert, Oriented X3, Cooperative, No Acute Distress HEENT: Atraumatic, EOMI, Mucous Memb Moist/Cosmos, Other (healing facial bruises) Neck: Supple, No Thyromegaly Lungs: Clear to Auscultation, Normal Air Movement Heart: Regular Rate, Normal S1, Normal S2 Abdomen: Normal Bowel Sounds, Soft, No Tenderness, No Hepatosplenomegaly Extremities: No Clubbing, No Cyanosis, Normal Pulses Skin: No Rashes, No Breakdown, Other (scattered scrapes and bruises in various stages of healing) Neuro: Normal Gait, Normal Speech, Normal Tone Psych/Mental Status: Mental Status NL, Mood NL Results/Procedures Lab Laboratory Tests 08/24/17 10:43: Glucometer 369H 08/24/17 15:25: Glucometer 215H 08/24/17 20:32: Glucometer 141H 08/25/17 05:29: Glucometer 223H Assessment/Plan Assessment/Plan Admission Dx Frequent Falls Uncontrolled Diabetes Mellitus, Type II Anxiety Depression ETOH Abuse Recent Hospitalization for Sepsis Plan Frequent Falls -the patient has had multiple trips to the ED in the last 2 weeks for falls, as well as multiple visits to the clinic -the patient has obvious bruising on her face and left arm -pt unable to be clear about why she falls, states she doesn't use her walker at home because there is not room Uncontrolled Diabetes Mellitus, Type II -significant hyperglycemia in ED -suspect dietary and medication noncompliance -sliding scale insulin with accucheck AC and HS -hold home insulin for now Anxiety -continue home medication Depression -continue home medication ETOH Abuse -pt's initial admission was that she drinks significant amounts on a daily basis ; she quickly withdrew this statement when other family members were present, stating she "doesn't have a problem" and 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 She has been given sliding scale insulin although her blood sugars remain high. There is a meeting scheduled later today with therapy and her family to determine where the patient should go after discharge - her states she can't go home the way she is now, and her daughter that she lives with agrees that she is falling too much to go home from the hospital right now. We will continue to treat the patient's blood sugars and recheck her labs in the AM. We will have OT and PT evaluate her and work with her today. Anticipate that the patient will be ready for discharge tomorrow pending placement. Clinical Quality Measures DVT/VTE Risk/Contraindication: Risk Factor Score Per Nursin RFS Level Per Nursing on Admit: 4+=Very High PHUONG EPPS DO Aug 25, 2017 10:05
[2017-08-25 12:00] VITALS: BP 145/83
--- NOTE | 2017-08-25 14:57 | Behavioral Health Consult ---
Consult- Consult Date Seen by Provider: Aug 25, 2017 Time Seen by Provider: 13:00 CPT Code: 96404 Psychodiagnostic Examination, 27991 +Interactive Complexity, 1 unit(s) Start Time: 1:00 pm Stop Time: 2:00 pm Chief Complaint: depression Referral: Loida Jeff is a 62-year-old, , female referred by Dr. Fair for a clinical diagnostic assessment. Information for this evaluation was gathered from self-report and medical records. Presenting Problem: The presenting clinical problem is depression. She reported she has been in the emergency five times in the last month. She stated she had a UTI leading to sepsis and did not know. She reported she spends most of her time in bed. She stated she has been falling frequently and does not know why. She reported her wellbutrin and lexapro have not been helping, but admitted that may be due to her drinking alcohol. She stated she continues having a hard time dealing with the murder of her son four years ago. She reported his killer has not been caught. She reported she feels like she when her son . She stated she has likely had depression all her life, but first sought treatment at 28 years old. She reported medication and psychotherapy helped her greatly at that time in her life. She admitted she has not gone to psychotherapy in six weeks and it is likely out of avoidance. She reported her daughter that was living with her has mental illness and just got out of senior living. She stated she was caring for her grandchild, but they were taken from her. She reported significant difficulty sleeping and use to take Xanax to help with sleep. She stated she spends much of her time at home and will only go to the store when she has to. She reported she has to have a plan to go home in case she feels too anxious. She reported she had a hematoma three years and she noticed memory issues after that. She reported she thinks the alcohol is affecting her health issues. She stated she thinks she will stop drinking. However, she does not have a plan for how she will do this. She admitted she is just in the thinking stage right now with not drinking and going to [facility] [place]. Overall symptoms observed or reported requiring current level of care include alcohol abuse/dependence, anergia, anhedonia, anger, anxiety, depressed mood, familial stress/strain, grief, medical problems, sleep disturbance (onset delay/easily awakened), weight gain, and worry. Buck daughters, a friend, and a grandson were in the room when therapist arrived. The daughter from [place] expressed concerns about her mother being suicidal (when her mother was not around). Therapist explained the process for voluntary and involuntary hospitalization in case she needs it. The daughter stated that she plans to stay here for a while, until she can get her mother and father stable. She reported she is very concerned about her mothers drinking alcohol. Observations/Mental Status: Loida was sitting in the chair when therapist arrived. Overall appearance was overweight and wearing a hospital gown. Loida appeared to be an adequate historian. Observed gait and gross motor movements indicated: not observed due to her remaining sitting. Buck general approach to the evaluation was cooperative, but possibly evasive. Orientation was intact for person, place, time, and situation. Loida evidenced good understanding of the reason for the appointment. Buck in-session behavior was cooperative. The predominant mood was depressed with affect appropriate to expressed concerns and presenting problem. Immediate attention and concentration was grossly intact. Memory functioning appeared to be intact. Level of intellectual functioning compared to same age peers was estimated to be in the average range. Thought processes were found to be appropriate and focused during the appointment. Thought content appeared normal. There was no report or evidence of hallucinations or delusions. Psychomotor functioning was within normal limits. Tone of voice was normal and controlled. Expressive speech was marked by some word-finding difficulties. Eye contact was fair. Insight was fair. Overall, style of interacting during the appointment was appropriate and motivated. Current/Previous Mental Health Treatment: Past psychiatric history was reported as currently sees Dr. Floyd for psychotherapy and a doctor at [facility] for medication management. History of self or other harm: she denied any current thoughts of suicide. She reported after her son she was suicidal, but had her grandkids to care for so she did not. Current destructive behavior patterns: alcohol abuse. Abuse history: she was vague about this topic, but indicated there was possibly some. Medical History: Medical conditions were reported as arthritis and Type II Diabetes. Drug allergies: Sulfa and morphine. Current physician is Dr. Courtney Mendes. Recreational Drug Usage: She was inconsistent in her report of alcohol abuse history. At times she denied problems with alcohol, but then would say she did. She was inconsistent in her report of how frequently she has been drinking in the past month. She reported at one point, she drank three to four shooters of whiskey and there would be three days in between her drinking. 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 Family and Social Histories: Loida had been living with her ex- and one daughter. However, her ex- told her she cannot come back to living there at this time. She stated her ex- cannot stand to seeing her in the condition she is in. She reported she has a daughter in [place]. She stated she has supportive friends. Strengths/Weaknesses: Strengths/Resources: supportive family Liabilities/Barriers: health problems, unstable living environment, and multiple life stressors Summary of Assessment Information/Recommendations: Loida is a 62-year-old female with a history of depression and alcohol abuse. It appears her recent increase in drinking alcohol was likely triggered by the four year anniversary of her sons murder on July 25. It was difficult during the assessment to determine if she was being truthful or just saying what she knows she should say. She appeared hesitant about going to [facility], but also seemed to realize that may be her only option. She appeared to be somewhat in shock about the situation she is in with her housing. She reported a history of PTSD, but did not or would not give enough information for that to be diagnosed at this time. Following current assessment, presenting problem and symptoms appear consistent with a preliminary diagnosis of F33.2 Major Depressive Disorder, Recurrent, Severe. Current emotional symptoms are of severe intensity. Overall, prognosis is estimated to be guarded. 1. It is recommended that she continue with psychotherapy and psychiatry services. She indicated at one point that she would like to seek services from someone else, but then later did not seem to want too. She was provided with information about psychotherapy and psychiatry services in [place]. 2. It is recommended that she have and alcohol and drug evaluation. 3. She reported some memory issues and had some word finding difficulties. If she continues to have these difficulties she may need further assessment to determine cause and level of impairment. ICD-10 Diagnostic Impressions: F33.2 Major Depressive Disorder, Recurrent, Severe F10.10 Alcohol Abuse Rule Out: PTSD DANIELLE RUBIO Aug 25, 2017 14:57
--- NOTE | 2017-08-25 15:21 | Occ Therapy Progress Note ---
Therapy Progress Note 9875 Pt said she was visiting with a friend and did not want to do OT evaluation at this time. will follow up tomorrow. REBECA CASANOVA OT Aug 25, 2017 15:21
--- NOTE | 2017-08-25 15:57 | Physical Therapy Evaluation ---
PT Evaluation-General Medical Diagnosis Admission Date Aug 23, 2017 at 19:42 Medical Diagnosis: uncontrolled DM Onset Date: Aug 23, 2017 Therapy Diagnosis Therapy Diagnosis: generalized weakness/debility Height/Weight Height (Feet): 5 Height (Inches): 5.00 Weight (Pounds): 266 Weight (Ounces): 1.0 Precautions Precautions/Isolations: Fall Prevention, Standard Precautions Weight Bear Status Right Lower Extremity: Right Full Weight Bearing Left Lower Extremity: Left Full Weight Bearing Referral Physician: Delmi Reason for Referral: Evaluation/Treatment Medical History Pertinent Medical History: Alcoholism, DM, GERD, HTN, Smoking Additional Medical History multiple ER and hospital admits Current History unsteady gait, dizziness, 5 ER visits since 07/27/17 Reviewed History: Yes Social History Home: Single Level Current Living Status: Other Family Prior/[facility] Prior Level of Function Functional [place] Measure 0=Not Assessed/NA 4=Minimal Assistance 1=Total Assistance 5=Supervision or Setup 2=Maximal Assistance 6=Modified [place] 3=Moderate Assistance 7=Complete [place] Bed Mobility: 7 Transfers (B,C,W/C) (FIM): 7 Gait: 7 PT Evaluation-Current Subjective Patient agrees to PT. No c/o at this time. Pain Numeric Pain Scale: 0-No Pain Location: No Pain Reported Objective Patient Orientation: Normal For Age Problem Solving: Fair Attachments: IV ROM/Strength ROM Lower Extremities bilateral LE WNL Strength Lower Extremities right knee flexion/extension 4/5; hip flexion 4/5; DF/PF 4/5 left knee flexion/extension 4/5; hip flexion 4/5; DF/PF 4/5 Integumentary/Posture Integumentary refer to nursing notes Bowel Incontinence: No Bladder Incontinence: No Posture WNL Neuromuscular (Tone, Coordination, Reflexes) grossly intact Sensory Vision: Functional Hearing: Functional Sensation Right Lower Extremit: Impaired Sensation Left Lower Extremity: Impaired Transfers Functional [place] Measure 0=Not Assessed/NA 4=Minimal Assistance 1=Total Assistance 5=Supervision or Setup 2=Maximal Assistance 6=Modified [place] 3=Moderate Assistance 7=Complete [place] Transfers (B, C, W/C) (FIM): 4 Scootin Sit to/from Stand: 4 CGA for safety with use of gait belt Gait Mode of Locomotion: Walk Anticipated Mode of Locomotion: Walk Gait (FIM): 4 Distance (FIM): 3=150 ft Distance: 300' Gait Level of Assist: 4 Gait Persons Needed: 1 Gait Assistive Device: FWW Comments/Gait Description steady, functional gait sequence Balance Sitting Static: Normal Sitting Dynamic: Normal Standing Static: Normal Standing Dynamic: Normal Assessment/Needs 62 y.o. female, will benefit from skilled PT to address functional strength and mobility to improve current LOF. Patient will dismiss to NH for continued care. Rehab Potential: Fair Post Rehab Potential-Barriers: medical compliance PT Short Term Goals Short Term Goals Time Frame: Aug 29, 2017 Transfers (B,C,W/C) (FIM): 6 Gait (FIM): 6 Distance (FIM): 3=150 ft Gait Level of Assist: 6 Gait Assistive Device: FWW PT Plan Problem List Problem List: Balance, Gait Treatment/Plan Treatment Plan: Continue Plan of Care Treatment Plan: Education, Functional Activity [place], Functional Strength, Gait , Safety, Therapeutic Exercise Treatment Duration: Aug 29, 2017 Frequency: 5 times per week Estimated Hrs Per Day: .25 hour per day Patient and/or Family Agrees t: Yes Safety Risks/Education Patient Education: Safety Issues Teaching Recipient: Patient Teaching Methods: Discussion Response to Teaching: Reinforcement Needed Discharge Recommendations Therapy D/C Recommendations: Assisted (TCU/NH) Time/GCodes Time In: 1520 Time Out: 1533 Total Billed Treatment Time: 13 Total Billed Treatment 1 visit EVMod 13 min CAILIN COLEY PT Aug 25, 2017 15:57
[2017-08-25 16:40] VITALS: BP 133/82
[2017-08-25 20:53] VITALS: BP 163/86
[2017-08-25] MEDS: ALPRAZolam 0.5 MG (XANAX) TAB PO PRN (23:57)
[2017-08-26 00:02] VITALS: BP 150/95
[2017-08-26] MEDS: LORazepam 1 MG (ATIVAN) TAB PO PRN (00:10)
[2017-08-26 04:00] VITALS: BP 155/96
[2017-08-26] MEDS: THIAMINE 100 MG (VITAMIN B-1) TAB PO SCH (05:36)
[2017-08-26] MEDS: buPROPion SR 150 MG (WELLBUTRIN SR) TAB PO SCH ×2 (05:36→16:12)
[2017-08-26] MEDS: inSUlin ASPART (NovoLOG) 1 UNIT/0.01 ML (CHARGE PER UNIT) SC SCH ×4 (05:36→20:19)
[2017-08-26] MEDS: LACTOBACILLUS Acidoph/Bulgar (LACTINEX/FLORANEX) TAB PO SCH (05:37)
[2017-08-26] MEDS: MULTIVIT W/MINERALS TAB (THERAGRAN M) PO SCH (05:37)
[2017-08-26] MEDS: PANTOPRAZOLE 40 MG (PROTONIX) TAB PO SCH (05:37)
[2017-08-26 06:15] LABS: BASOPHILS % (AUTO) 0 % (0-10); EOSINOPHILS # (AUTO) 0.5 10^3/uL (0.0-0.3); EOSINOPHILS % (AUTO) 6 % (0-10); LYMPHOCYTES # (AUTO) 1.7 X 10^3 (1.0-4.0); LYMPHOCYTES % (AUTO) 21 % (12-44); MEAN CORPUSCULAR HEMOGLOBIN 31 PG (25-34); MEAN CORPUSCULAR HGB CONC 33 G/DL (32-36); MEAN CORPUSCULAR VOLUME 91 FL (80-99); MEAN PLATELET VOLUME 8.9 FL (7.4-10.4); MONOCYTES # (AUTO) 0.5 X 10^3 (0.0-1.0); MONOCYTES % (AUTO) 6 % (0-12); NEUTROPHILS # (AUTO) 5.5 X 10^3 (1.8-7.8); NEUTROPHILS % (AUTO) 67 % (42-75); PLATELET COUNT 203 10^3/uL (130-400); RED CELL DISTRIBUTION WIDTH 14.1 % (10.0-14.5); WHITE BLOOD COUNT 8.2 10^3/uL (4.3-11.0)
[2017-08-26 06:51] LABS: ALANINE AMINOTRANSFERASE 14 U/L (0-55); ALBUMIN 3.3 GM/DL (3.2-4.5); ANION GAP 8 MMOL/L (5-14); ASPARTATE AMINO TRANSFERASE 17 U/L (5-34); BILIRUBIN,TOTAL 0.5 MG/DL (0.1-1.0); BLOOD UREA NITROGEN 9 MG/DL (7-18); BUN/CREATININE RATIO 12; CALCIUM 8.7 MG/DL (8.5-10.1); CARBON DIOXIDE 24 MMOL/L (21-32); CHLORIDE 104 MMOL/L (98-107); CREATININE SERUM 0.73 MG/DL (0.60-1.30); GFR ESTIMATED > 60; GLUCOSE 152 MG/DL (70-105); SODIUM 136 MMOL/L (135-145); TOTAL PROTEIN 5.9 GM/DL (6.4-8.2)
[2017-08-26 08:00] VITALS: BP 161/81
[2017-08-26] MEDS: inSUlin DETERMIR 1 UNIT/0.01 ML (LEVEMIR) CHARGE PER UNIT SQ SCH ×2 (08:47→20:19)
[2017-08-26] MEDS: ESTRADIOL 1 MG TAB (ESTRACE) PO SCH (08:47)
[2017-08-26] MEDS: lisINopril 10 MG (PRINIVIL) TAB PO SCH (08:47)
[2017-08-26] MEDS: GABAPENTIN 100 MG (NEURONTIN) CAP PO SCH ×2 (08:50→20:11)
[2017-08-26] MEDS: NS IV 1000 ML 1,000 ML IV SCH ×2 (10:13→20:11)
--- NOTE | 2017-08-26 11:20 | Physical Therapy Daily Note ---
PT Daily Note-Current Subjective Patient is awake and in her recliner upon PT entering the room. She agrees to PT. Pain Numeric Pain Scale: 0-No Pain Location: No Pain Reported Appearance Patient appears healthy. Mental Status Patient Orientation: Normal For Age Attachments: IV Transfers Functional [place] Measure 0=Not Assessed/NA 4=Minimal Assistance 1=Total Assistance 5=Supervision or Setup 2=Maximal Assistance 6=Modified [place] 3=Moderate Assistance 7=Complete IndependenceIRFPAI Quality Coding Scale 6 Independent with activity with or without an assistive device 5 Patient requires set up or clean up by helper. Patient completes activity by themselves 4 Supervision or touching assist (CGA). [place] provide cues , steadying assist 3 The helper provides less than half the effort to complete the activity 2 The helper provides more than half the effort to complete the activity 1 Dependent. The helper does all the effort to complete an activity 7 Patient refused to complete or attempt activity 9 The patient did not perform the activity before the current illness or injury 88 Not attempted due to Medical conditions or safety concerns Transfers (B, C, W/C) (FIM): 5 Sit to/from Stand: 5 Patient performs sit to stand from her recliner with SBA from PT. Weight Bearing Right Lower Extremity: Right Full Weight Bearing Left Lower Extremity: Left Full Weight Bearing Gait Training Gait (FIM): 5 Distance (FIM): 3=150 ft Distance: 200' Gait Level of Assist: 5 Gait Persons Needed: 1 Gait Assistive Device: FWW PT is CGA with this patient due to patient's concerns with balance on outdoor and uneven surfaces. Assessment Current Status: Good Progress Patient has good tolerance for walking with PT. PT will progress interventions as patient tolerates. PT Short Term Goals Short Term Goals Time Frame: Aug 29, 2017 Transfers (B,C,W/C) (FIM): 6 Gait (FIM): 6 Distance (FIM): 3=150 ft Gait Level of Assist: 6 Gait Assistive Device: FWW PT Plan Treatment/Plan Treatment Plan: Continue Plan of Care Treatment Plan: Education, Functional Activity Garrick, Functional Strength, Gait , Safety, Therapeutic Exercise Treatment Duration: Aug 29, 2017 Frequency: 5 times per week Estimated Hrs Per Day: .25 hour per day Patient and/or Family Agrees t: Yes Time/GCodes Time In: 1045 Time Out: 1055 Total Billed Treatment Time: 10 Total Billed Treatment 1 visit GT 10 min CAILIN COLEY PT Aug 26, 2017 11:20
[2017-08-26 12:05] VITALS: BP 154/63
--- NOTE | 2017-08-26 13:27 | Occupational Therapy Eval ---
OT Evaluation-General/PLF Medical Diagnosis Admission Date Aug 23, 2017 at 19:42 Medical Diagnosis: uncontrolled DM Onset Date: Aug 23, 2017 Therapy Diagnosis Therapy Diagnosis: decr self care, decr funct mobility, weakness Height/Weight Height (Feet): 5 Height (Inches): 5.00 Weight (Pounds): 266 Weight (Ounces): 1.0 Precautions Precautions/Isolations: Fall Prevention, Standard Precautions Safety Interventions: Bed Exit Alarm, Reorient-PRN Referral Physician: Delmi Referral Reason: Evaluation/Treatment Medical History Pertinent Medical History: Alcoholism, Arthritis, DM, GERD, HTN, Smoking Additional Medical History L TKA April 2016. Hx gastric bypass. Cataracts. Anxiety, depression. Psoriasis Current History Admitted with unsteady gait, dizziness, confusion. Hx multiple falls in recent months. Recent hospitalization with sepsis. Pt reported, "I'm detoxing now." Reviewed History: Yes Social History Home: Single Level Current Living Status: Other Family ADL-Prior Level of Function ADL PLOF Comments Pt and daughter reported that she has declined in her ability to care for herself in the past 6 months. She has been incontinent and had difficulty getting on and off toilet and managing clothing and hygiene. She could put a top on but had trouble with pants, shoes and socks. She also reported difficulty getting in and out of shower. Daughter said that recently family has been feeding her because she chokes and she has observable tremors in UEs. DME/Equipment Comments Unknown bathroom equipment OT Current Status Subjective Pt seen in room, up in recliner, agreeable to OT. No pain mentioned. Pt reported that she was "in withdrawal" Appearance Alert, cooperative Current Glasses/Contacts: Yes Hand Dominance: Right Upper Extremity ROM Grossly WFL bilat Upper Extremity Strength Grossly 4/5 bilat Tremors observed bilat UEs ADL-Treatment ADL-Current pt reported that she has been walking to the bathroom with help from nursing. PT note reported walking with FWW, CGA due to unsteadiness. She was able to get a drink of water Functional [place] Measure 0=Not Assessed/NA 4=Minimal Assistance 1=Total Assistance 5=Supervision or Setup 2=Maximal Assistance 6=Modified [place] 3=Moderate Assistance 7=Complete IndependenceIRFPAI Quality Coding Scale 6 Independent with activity with or without an assistive device 5 Patient requires set up or clean up by helper. Patient completes activity by themselves 4 Supervision or touching assist (CGA). [place] provide cues , steadying assist 3 The helper provides less than half the effort to complete the activity 2 The helper provides more than half the effort to complete the activity 1 Dependent. The helper does all the effort to complete an activity 7 Patient refused to complete or attempt activity 9 The patient did not perform the activity before the current illness or injury 88 Not attempted due to Medical conditions or safety concerns OT Snf Goals Molder Apprentice Goals Time Frame: Sep 02, 2017 Eating (FIM): 5 Grooming(FIM): 5 Bathing(FIM): 5 Upper Body Dressing(FIM): 5 Lower Body Dressing(FIM): 5 Toileting(FIM): 5 Toilet/Commode Transfer(FIM): 5 Shower Transfer(FIM): 5 Additional Goals: 1-Demonstrate ADL Tasks, 2-Verbalize Understanding, 3- ImproveStrength/[place]rick 1=Demonstrate adherence to instructed precautions during ADL tasks. 2=Patient will verbalize/demonstrate understanding of assistive devices/ modifications for ADL. 3=Patient will improve strength/tolerance for activity to enable patient to perform ADL's. OT Education/Plan Problem List/Assessment Assessment: Decreased Safety Aware, Decreased UE Strength, Dependent Transfers , Impaired Funct Balance, Impaired Self-Care Skills Pt would benefit from skilled OT to increase her independence in basic self care and decrease caregiver burden. Discharge Recommendations Plan/Recommendations: Continue POC Therapy D/C Recommendations: Correction (TCU/NH) (OT) Treatment Plan/Plan of Care Treatment,Training & Education: Yes Patient would benefit from OT for education, treatment and training to promote independence in ADL's, mobility, safety and/or upper extremity function for ADL' s. Plan of Care: ADL Retraining, Functional Mobility, UE Funct Exercise/Act, UE Neuromus Re-Ed/Coord Treatment Duration: Sep 02, 2017 Frequency: 5 times per week Estimated Hrs Per Day: .5 hour per day Agreement: Yes Rehab Potential: Fair Time/GCodes Start Time: 12:40 Stop Time: 12:55 Total Time Billed (hr/min): 15 Billed Treatment Time visit, evaluation moderate intensity REBECA CASANOVA OT Aug 26, 2017 13:27
[2017-08-26] MEDS: LORazepam 1 MG (ATIVAN) TAB PO SCH ×3 (14:40→21:50)
[2017-08-26] MEDS: BACLOFEN 10 MG (LIORESAL) TAB PO SCH ×2 (14:41→20:11)
[2017-08-26 15:43] VITALS: BP 163/83
[2017-08-26 20:07] VITALS: BP 150/71
[2017-08-26] MEDS: MIRTAZAPINE 15 MG (REMERON) TAB PO SCH (20:11)
--- NOTE | 2017-08-26 21:56 | Progress Note (SOAP) ---
Subjective Subjective/Events-last exam Overnight the patient started to have some higher CIWA scoring and displaying some signs of withdrawal, which is consistent with her last drink being Tuesday morning when she was caught with a small bottle of whiskey in the hospital. She received PRN ativan. She has started to have some incontinence, has become more unsteady on her feet, is tremulous, and had some visual hallucinations last night. She also complains of feeling "shocks and twitches" in her extremities. She openly admits that she is an alcoholic and that she needs help. She reports that she will stop drinking sometimes until she gets to feeling some symptoms, and then starts again. The patient states that she doesn't want to start drinking again, and that she doesn't want to . She would like to detox before going to rehab. She is worried that other providers will be disappointed in her that she was drinking, Pt reassured that no one is disappointed in her and that everyone is very proud of her for being willing to admit that she has a problem with alcohol and that she wants to do something about it. Review of Systems Date Seen by Provider: Aug 26, 2017 Time Seen by Provider: 13:00 General: No Chills, No Night Sweats, No Fatigue HEENT: No Head Aches, Visual Changes (overnight visual hallucinations), No Dysphasia Pulmonary: No Dyspnea, No Cough Cardiovascular: Edema, No: Palpitations Gastrointestinal: Nausea, No: Vomiting, Abdominal Pain, Constipation Genitourinary: No Dysuria, Incontinence Neurological: Weakness, Incoordination, Confusion, Other (tremors), No: Seizures Objective Exam Last Set of Vital Signs Vital Signs Date Time Temp Pulse Resp B/P (MAP) Pulse Ox O2 Delivery O2 Flow Rate FiO2 08/26/17 20:07 99.1 82 20 150/71 93 Room Air Capillary Refill : Less Than 3 Seconds I&O Intake and Output 08/27/17 00:00 Intake Total 2760 ml Output Total 900 ml Balance 1860 ml Intake Oral 1960 ml IV Total 800 ml Output Urine Total 900 ml # Voids 10 # Bowel Movements 1 General: Alert, Oriented X3, Cooperative, No Acute Distress HEENT: Atraumatic, EOMI, Mucous Memb Moist/[place] Neck: Supple, No Thyromegaly Lungs: Clear to Auscultation, Other (mildly diminished in bases) Heart: Regular Rate, Normal S1, Normal S2 Abdomen: Normal Bowel Sounds, Soft, No Tenderness Extremities: No Clubbing, No Cyanosis Skin: No Rashes, No Significant Lesion, Other (various bruises and scrapes in various stages of healing) Neuro: Normal Speech, Normal Tone, Other (moderate tremor) Psych/Mental Status: Mental Status NL, Mood NL Results/Procedures Lab Laboratory Tests 08/26/17 05:32: Glucometer 152H 08/26/17 05:50: White Blood Count 8.2, Red Blood Count 4.20L, Hemoglobin 12.8, Hematocrit 38, Mean Corpuscular Volume 91, Mean Corpuscular Hemoglobin 31, Mean Corpuscular Hemoglobin Concent 33, Red Cell Distribution Width 14.1, Platelet Count 203, Mean Platelet Volume 8.9, Neutrophils (%) (Auto) 67, Lymphocytes (%) (Auto) 21, Monocytes (%) (Auto) 6, Eosinophils (%) (Auto) 6, Basophils (%) (Auto) 0, Neutrophils # (Auto) 5.5, Lymphocytes # (Auto) 1.7, Monocytes # (Auto) 0.5, Eosinophils # (Auto) 0.5H, Basophils # (Auto) 0.0, Sodium Level 136, Potassium Level 4.0, Chloride Level 104, Carbon Dioxide Level 24, Anion Gap 8, Blood Urea Nitrogen 9, Creatinine 0.73, Estimat Glomerular Filtration Rate > 60, BUN/ Creatinine Ratio 12, Glucose Level 152H, Calcium Level 8.7, Total Bilirubin 0.5 , Aspartate Amino Transf (AST/SGOT) 17, Alanine Aminotransferase (ALT/SGPT) 14, Alkaline Phosphatase 119, Total Protein 5.9L, Albumin 3.3 08/26/17 10:38: Glucometer 254H 08/26/17 15:47: Glucometer 195H 08/26/17 20:13: Glucometer 198H Assessment/Plan Assessment/Plan Plan Uncontrolled Diabetes Mellitus, Type II -significant hyperglycemia in ED -suspect dietary and medication noncompliance -sliding scale insulin with accucheck AC and HS -hold home insulin for now Anxiety -continue home medication Depression -continue home medication ETOH Abuse -pt openly admits that she is an alcoholic and would like to detox -showing signs of withdrawal, shaking, incontinence, unsteady gait, hallucinations last night -patient admits that her daughter Bettie is the one who provides her with alcohol; she is the daughter that the patient lives with -the patient got several small bottles of whiskey from the bottom of her purse and gave them to the nurse to dispose of -continue CIWA scoring with PRN ativan -scheduled ativan, 1 mg PO q4H -scheduled baclofen 10 mg PO TID -scheduled mirtazipine 15 mg at HS -if pt needs closer monitoring, will have low threshold for moving her to the ICU for a higher level of care The patient is actively withdrawing from alcohol and would like to detox. Given her active withdrawal, she requires inpatient care at this time, for close monitoring and treatment. She will potentially be ready for discharge to rehab facility on Tuesday or Tuesday. Clinical Quality Measures DVT/VTE Risk/Contraindication: Risk Factor Score Per Nursin RFS Level Per Nursing on Admit: 4+=Very High PHUONG EPPS DO Aug 26, 2017 21:56
[2017-08-27 00:15] VITALS: BP 161/75
[2017-08-27] MEDS: LORazepam 1 MG (ATIVAN) TAB PO SCH ×3 (01:44→09:46)
[2017-08-27 04:56] VITALS: BP 137/65
[2017-08-27] MEDS: MULTIVIT W/MINERALS TAB (THERAGRAN M) PO SCH (05:52)
[2017-08-27] MEDS: PANTOPRAZOLE 40 MG (PROTONIX) TAB PO SCH (05:52)
[2017-08-27] MEDS: inSUlin ASPART (NovoLOG) 1 UNIT/0.01 ML (CHARGE PER UNIT) SC SCH ×4 (05:52→20:43)
[2017-08-27] MEDS: NS IV 1000 ML 1,000 ML IV SCH ×2 (05:52→16:56)
[2017-08-27] MEDS: THIAMINE 100 MG (VITAMIN B-1) TAB PO SCH (05:52)
[2017-08-27] MEDS: LACTOBACILLUS Acidoph/Bulgar (LACTINEX/FLORANEX) TAB PO SCH (05:52)
[2017-08-27] MEDS: buPROPion SR 150 MG (WELLBUTRIN SR) TAB PO SCH ×2 (05:54→18:38)
[2017-08-27 06:52] LABS: BASOPHILS % (AUTO) 0 % (0-10); EOSINOPHILS # (AUTO) 0.4 10^3/uL (0.0-0.3); EOSINOPHILS % (AUTO) 5 % (0-10); LYMPHOCYTES # (AUTO) 1.4 X 10^3 (1.0-4.0); LYMPHOCYTES % (AUTO) 18 % (12-44); MEAN CORPUSCULAR HEMOGLOBIN 31 PG (25-34); MEAN CORPUSCULAR HGB CONC 33 G/DL (32-36); MEAN CORPUSCULAR VOLUME 92 FL (80-99); MONOCYTES # (AUTO) 0.6 X 10^3 (0.0-1.0); MONOCYTES % (AUTO) 7 % (0-12); NEUTROPHILS # (AUTO) 5.5 X 10^3 (1.8-7.8); NEUTROPHILS % (AUTO) 70 % (42-75); PLATELET COUNT 195 10^3/uL (130-400); RED BLOOD COUNT 4.05 10^6/uL (4.35-5.85); RED CELL DISTRIBUTION WIDTH 14.3 % (10.0-14.5); WHITE BLOOD COUNT 7.9 10^3/uL (4.3-11.0)
[2017-08-27 07:10] LABS: ALANINE AMINOTRANSFERASE 14 U/L (0-55); ALBUMIN 3.1 GM/DL (3.2-4.5); ANION GAP 7 MMOL/L (5-14); ASPARTATE AMINO TRANSFERASE 14 U/L (5-34); BILIRUBIN,TOTAL 0.4 MG/DL (0.1-1.0); BLOOD UREA NITROGEN 10 MG/DL (7-18); BUN/CREATININE RATIO 13; CALCIUM 8.7 MG/DL (8.5-10.1); CARBON DIOXIDE 26 MMOL/L (21-32); CHLORIDE 101 MMOL/L (98-107); CREATININE SERUM 0.79 MG/DL (0.60-1.30); GFR ESTIMATED > 60; GLUCOSE 242 MG/DL (70-105); MAGNESIUM 1.7 MG/DL (1.8-2.4); POTASSIUM 4.1 MMOL/L (3.6-5.0); SODIUM 134 MMOL/L (135-145); TOTAL PROTEIN 5.7 GM/DL (6.4-8.2)
[2017-08-27 08:41] VITALS: BP 137/68
[2017-08-27] MEDS: BACLOFEN 10 MG (LIORESAL) TAB PO SCH ×3 (09:46→20:43)
[2017-08-27] MEDS: lisINopril 10 MG (PRINIVIL) TAB PO SCH (09:46)
[2017-08-27] MEDS: ESTRADIOL 1 MG TAB (ESTRACE) PO SCH (09:46)
[2017-08-27] MEDS: GABAPENTIN 100 MG (NEURONTIN) CAP PO SCH ×2 (09:46→20:42)
[2017-08-27] MEDS: inSUlin DETERMIR 1 UNIT/0.01 ML (LEVEMIR) CHARGE PER UNIT SQ SCH ×2 (09:47→20:43)
--- NOTE | 2017-08-27 10:34 | Physical Therapy Daily Note ---
PT Daily Note-Current Subjective Pt is awake and agreeable to treatment. No issues voiced prior to or during treatment. Appearance Pt is alert and mildly confused. Mental Status Patient Orientation: Person, Place Attachments: Oxygen, IV Transfers Functional [place] Measure 0=Not Assessed/NA 4=Minimal Assistance 1=Total Assistance 5=Supervision or Setup 2=Maximal Assistance 6=Modified [place] 3=Moderate Assistance 7=Complete IndependenceIRFPAI Quality Coding Scale 6 Independent with activity with or without an assistive device 5 Patient requires set up or clean up by helper. Patient completes activity by themselves 4 Supervision or touching assist (CGA). [place] provide cues , steadying assist 3 The helper provides less than half the effort to complete the activity 2 The helper provides more than half the effort to complete the activity 1 Dependent. The helper does all the effort to complete an activity 7 Patient refused to complete or attempt activity 9 The patient did not perform the activity before the current illness or injury 88 Not attempted due to Medical conditions or safety concerns Transfers (B, C, W/C) (FIM): 6 Supine to/from Sit: 6 Sit to/from Stand: 6 Bed to/from Chair: 6 Weight Bearing Right Lower Extremity: Right Full Weight Bearing Left Lower Extremity: Left Full Weight Bearing Gait Training Gait (FIM): 5 Distance (FIM): 3=150 ft Distance: 300ft Gait Level of Assist: 5 Gait Persons Needed: 1 Gait Assistive Device: FWW Pt required SBA throughout gait training. No instability or LOB. Assessment Good performance and stability during transfers and ambulation. PT Short Term Goals Short Term Goals Time Frame: Aug 29, 2017 Gait (FIM): 6 Distance (FIM): 3=150 ft Gait Level of Assist: 6 Gait Assistive Device: FWW PT Plan Treatment/Plan Treatment Plan: Continue Plan of Care Treatment Plan: Education, Functional Activity [place], Functional Strength, Gait , Safety, Therapeutic Exercise Treatment Duration: Aug 29, 2017 Frequency: 5 times per week Estimated Hrs Per Day: .25 hour per day Patient and/or Family Agrees t: Yes Time/GCodes Time In: 1000 Time Out: 1015 Total Billed Treatment Time: 15 Total Billed Treatment 1, gt 15 KEN SOLIS PT Aug 27, 2017 10:34
[2017-08-27 12:50] VITALS: BP 184/83
[2017-08-27 16:26] VITALS: BP 140/72
[2017-08-27 19:38] VITALS: BP 162/75
[2017-08-27] MEDS: MIRTAZAPINE 15 MG (REMERON) TAB PO SCH (20:42)
[2017-08-28 00:32] VITALS: BP 172/76
[2017-08-28] MEDS: LORazepam 1 MG (ATIVAN) TAB PO PRN (03:46)
[2017-08-28 04:00] VITALS: BP 180/84
[2017-08-28] MEDS: MULTIVIT W/MINERALS TAB (THERAGRAN M) PO SCH (05:25)
[2017-08-28] MEDS: buPROPion SR 150 MG (WELLBUTRIN SR) TAB PO SCH ×2 (05:25→18:03)
[2017-08-28] MEDS: LACTOBACILLUS Acidoph/Bulgar (LACTINEX/FLORANEX) TAB PO SCH (05:25)
[2017-08-28] MEDS: inSUlin ASPART (NovoLOG) 1 UNIT/0.01 ML (CHARGE PER UNIT) SC SCH ×4 (05:25→21:23)
[2017-08-28] MEDS: ALPRAZolam 0.5 MG (XANAX) TAB PO PRN (05:25)
[2017-08-28] MEDS: PANTOPRAZOLE 40 MG (PROTONIX) TAB PO SCH (05:25)
[2017-08-28 05:55] LABS: BASOPHILS % (AUTO) 0 % (0-10); EOSINOPHILS # (AUTO) 0.4 10^3/uL (0.0-0.3); EOSINOPHILS % (AUTO) 5 % (0-10); LYMPHOCYTES # (AUTO) 1.4 X 10^3 (1.0-4.0); LYMPHOCYTES % (AUTO) 17 % (12-44); MEAN CORPUSCULAR HEMOGLOBIN 31 PG (25-34); MEAN CORPUSCULAR HGB CONC 34 G/DL (32-36); MEAN CORPUSCULAR VOLUME 91 FL (80-99); MEAN PLATELET VOLUME 8.6 FL (7.4-10.4); MONOCYTES # (AUTO) 0.6 X 10^3 (0.0-1.0); MONOCYTES % (AUTO) 7 % (0-12); NEUTROPHILS # (AUTO) 6.1 X 10^3 (1.8-7.8); NEUTROPHILS % (AUTO) 72 % (42-75); PLATELET COUNT 219 10^3/uL (130-400); RED BLOOD COUNT 4.15 10^6/uL (4.35-5.85); RED CELL DISTRIBUTION WIDTH 14.4 % (10.0-14.5); WHITE BLOOD COUNT 8.5 10^3/uL (4.3-11.0)
[2017-08-28 06:12] LABS: ALANINE AMINOTRANSFERASE 13 U/L (0-55); ALBUMIN 3.3 GM/DL (3.2-4.5); ANION GAP 8 MMOL/L (5-14); ASPARTATE AMINO TRANSFERASE 15 U/L (5-34); BILIRUBIN,TOTAL 0.4 MG/DL (0.1-1.0); BLOOD UREA NITROGEN 12 MG/DL (7-18); BUN/CREATININE RATIO 15; CARBON DIOXIDE 26 MMOL/L (21-32); CHLORIDE 100 MMOL/L (98-107); CREATININE SERUM 0.81 MG/DL (0.60-1.30); GFR ESTIMATED > 60; GLUCOSE 228 MG/DL (70-105); MAGNESIUM 1.7 MG/DL (1.8-2.4); POTASSIUM 4.3 MMOL/L (3.6-5.0); SODIUM 134 MMOL/L (135-145)
[2017-08-28 08:00] VITALS: BP 165/72
[2017-08-28] MEDS: BACLOFEN 10 MG (LIORESAL) TAB PO SCH (08:37)
[2017-08-28] MEDS: ESTRADIOL 1 MG TAB (ESTRACE) PO SCH (08:37)
[2017-08-28] MEDS: GABAPENTIN 100 MG (NEURONTIN) CAP PO SCH ×2 (08:37→21:23)
[2017-08-28] MEDS: lisINopril 10 MG (PRINIVIL) TAB PO SCH (08:37)
[2017-08-28] MEDS: inSUlin DETERMIR 1 UNIT/0.01 ML (LEVEMIR) CHARGE PER UNIT SQ SCH ×2 (08:38→21:23)
[2017-08-28 12:00] VITALS: BP 183/81
[2017-08-28 15:35] VITALS: BP 153/72
--- NOTE | 2017-08-28 16:01 | Progress Note (SOAP) ---
Subjective Subjective/Events-last exam Patient states that she is upset at herself this AM. She is somewhat confused this AM. Tolerating PO diet. Ambulating without concerns. Review of Systems Date Seen by Provider: Aug 27, 2017 Time Seen by Provider: 15:30 Pulmonary: No Dyspnea, No Cough Cardiovascular: No: Chest Pain, Palpitations Gastrointestinal: Nausea Genitourinary: No Dysuria Neurological: Confusion Objective Exam Last Set of Vital Signs Vital Signs Date Time Temp Pulse Resp B/P (MAP) Pulse Ox O2 Delivery O2 Flow Rate FiO2 08/28/17 15:35 98.4 73 18 153/72 93 Room Air Capillary Refill : Less Than 3 Seconds I&O Intake and Output 08/28/17 23:59 Intake Total 1300 ml Output Total 500 ml Balance 800 ml Intake Oral 800 ml IV Total 500 ml Output Urine Total 500 ml General: Alert, Cooperative, No Acute Distress Lungs: Clear to Auscultation, Normal Air Movement Heart: Regular Rate, No Murmurs Abdomen: Normal Bowel Sounds, Soft, No Tenderness Extremities: No Edema, No Tenderness/Swelling Skin: No Rashes Neuro: Normal Speech (confused on day of the week) Results/Procedures Lab Laboratory Tests 08/27/17 16:29: Glucometer 212H 08/27/17 20:35: Glucometer 189H 08/28/17 04:38: Glucometer 203H 08/28/17 05:40: White Blood Count 8.5, Red Blood Count 4.15L, Hemoglobin 12.7, Hematocrit 38, Mean Corpuscular Volume 91, Mean Corpuscular Hemoglobin 31, Mean Corpuscular Hemoglobin Concent 34, Red Cell Distribution Width 14.4, Platelet Count 219, Mean Platelet Volume 8.6, Neutrophils (%) (Auto) 72, Lymphocytes (%) (Auto) 17, Monocytes (%) (Auto) 7, Eosinophils (%) (Auto) 5, Basophils (%) (Auto) 0, Neutrophils # (Auto) 6.1, Lymphocytes # (Auto) 1.4, Monocytes # (Auto) 0.6, Eosinophils # (Auto) 0.4H, Basophils # (Auto) 0.0, Sodium Level 134L, Potassium Level 4.3, Chloride Level 100, Carbon Dioxide Level 26, Anion Gap 8, Blood Urea Nitrogen 12, Creatinine 0.81, Estimat Glomerular Filtration Rate > 60, BUN/ Creatinine Ratio 15, Glucose Level 228H, Calcium Level 9.0, Magnesium Level 1.7L , Total Bilirubin 0.4, Aspartate Amino Transf (AST/SGOT) 15, Alanine Aminotransferase (ALT/SGPT) 13, Alkaline Phosphatase 115, Total Protein 6.0L, Albumin 3.3 08/28/17 11:16: Glucometer 274H Assessment/Plan Assessment/Plan Plan Uncontrolled Diabetes Mellitus, Type II, non compliance with medications -Restart home insulin, will continue to monitor blood sugars Anxiety -continue home medication Depression -continue home medication ETOH Abuse in Withdraw -pt openly admits that she is an alcoholic and would like to detox - CIWS scores have been stable, patient having some confusion - PO Ativan as needed - Stopped Baclofen due to sedating effects FEN: DM diet DVT PPX: SCDs Dispo: Continue admission for acute withdraw, still requiring PRN ativan for symptoms Clinical Quality Measures DVT/VTE Risk/Contraindication: Risk Factor Score Per Nursin RFS Level Per Nursing on Admit: 4+=Very High REJI ROY MD Aug 28, 2017 16:01
--- NOTE | 2017-08-28 16:02 | Progress Note (SOAP) ---
Subjective Subjective/Events-last exam Patient more alert today, sitting on commode this AM. Denies any pain. Tolerating PO diet. Review of Systems Date Seen by Provider: Aug 28, 2017 Time Seen by Provider: 09:35 Pulmonary: No Dyspnea, No Cough Cardiovascular: No: Chest Pain, Palpitations Gastrointestinal: Nausea, Diarrhea, No: Vomiting Genitourinary: No Dysuria, Frequency Neurological: Confusion, No: Seizures Objective Exam Last Set of Vital Signs Vital Signs Date Time Temp Pulse Resp B/P (MAP) Pulse Ox O2 Delivery O2 Flow Rate FiO2 08/28/17 15:35 98.4 73 18 153/72 93 Room Air Capillary Refill : Less Than 3 Seconds I&O Intake and Output 08/28/17 23:59 Intake Total 1300 ml Output Total 500 ml Balance 800 ml Intake Oral 800 ml IV Total 500 ml Output Urine Total 500 ml General: Alert (Ox2, no sure what day it was), Cooperative Lungs: Clear to Auscultation, Normal Air Movement Heart: Regular Rate, No Murmurs Abdomen: Normal Bowel Sounds, Soft, No Tenderness Extremities: No Edema, No Tenderness/Swelling Neuro: Normal Speech, Cranial Nerves 3-12 NL Psych/Mental Status: Mental Status NL Results/Procedures Lab Laboratory Tests 08/27/17 16:29: Glucometer 212H 08/27/17 20:35: Glucometer 189H 08/28/17 04:38: Glucometer 203H 08/28/17 05:40: White Blood Count 8.5, Red Blood Count 4.15L, Hemoglobin 12.7, Hematocrit 38, Mean Corpuscular Volume 91, Mean Corpuscular Hemoglobin 31, Mean Corpuscular Hemoglobin Concent 34, Red Cell Distribution Width 14.4, Platelet Count 219, Mean Platelet Volume 8.6, Neutrophils (%) (Auto) 72, Lymphocytes (%) (Auto) 17, Monocytes (%) (Auto) 7, Eosinophils (%) (Auto) 5, Basophils (%) (Auto) 0, Neutrophils # (Auto) 6.1, Lymphocytes # (Auto) 1.4, Monocytes # (Auto) 0.6, Eosinophils # (Auto) 0.4H, Basophils # (Auto) 0.0, Sodium Level 134L, Potassium Level 4.3, Chloride Level 100, Carbon Dioxide Level 26, Anion Gap 8, Blood Urea Nitrogen 12, Creatinine 0.81, Estimat Glomerular Filtration Rate > 60, BUN/ Creatinine Ratio 15, Glucose Level 228H, Calcium Level 9.0, Magnesium Level 1.7L , Total Bilirubin 0.4, Aspartate Amino Transf (AST/SGOT) 15, Alanine Aminotransferase (ALT/SGPT) 13, Alkaline Phosphatase 115, Total Protein 6.0L, Albumin 3.3 08/28/17 11:16: Glucometer 274H Assessment/Plan Assessment/Plan Plan Uncontrolled Diabetes Mellitus, Type II -Continue home Insulin, A1c pending Anxiety -continue home medication Depression -continue home medication ETOH Abuse -pt openly admits that she is an alcoholic and would like to detox -CIWS scores improving, needing less ativan -Patient is interested in rehab Suicidal Ideation likely 2/2 detox and substance abuse - Patient placed on 1:1 for thoughts she told to nurse about wanting to harm herself Dispo: Patient would benefit from outpatient rehab for her alcohol abuse Clinical Quality Measures DVT/VTE Risk/Contraindication: Risk Factor Score Per Nursin RFS Level Per Nursing on Admit: 4+=Very High REJI ROY MD Aug 28, 2017 16:02
[2017-08-28 19:58] VITALS: BP 169/84
[2017-08-28] MEDS: MIRTAZAPINE 15 MG (REMERON) TAB PO SCH (21:23)
[2017-08-29] VITALS: BP 168/79
[2017-08-29 04:00] VITALS: BP 152/83
[2017-08-29] MEDS: PANTOPRAZOLE 40 MG (PROTONIX) TAB PO SCH (06:13)
[2017-08-29] MEDS: MULTIVIT W/MINERALS TAB (THERAGRAN M) PO SCH (06:13)
[2017-08-29] MEDS: buPROPion SR 150 MG (WELLBUTRIN SR) TAB PO SCH (06:13)
[2017-08-29] MEDS: inSUlin ASPART (NovoLOG) 1 UNIT/0.01 ML (CHARGE PER UNIT) SC SCH ×2 (06:13→12:28)
[2017-08-29] MEDS: LACTOBACILLUS Acidoph/Bulgar (LACTINEX/FLORANEX) TAB PO SCH (06:13)
[2017-08-29 06:31] LABS: BASOPHILS % (AUTO) 0 % (0-10); EOSINOPHILS # (AUTO) 0.4 10^3/uL (0.0-0.3); EOSINOPHILS % (AUTO) 4 % (0-10); LYMPHOCYTES # (AUTO) 1.4 X 10^3 (1.0-4.0); LYMPHOCYTES % (AUTO) 16 % (12-44); MEAN CORPUSCULAR HEMOGLOBIN 31 PG (25-34); MEAN CORPUSCULAR HGB CONC 34 G/DL (32-36); MEAN CORPUSCULAR VOLUME 90 FL (80-99); MEAN PLATELET VOLUME 8.8 FL (7.4-10.4); MONOCYTES # (AUTO) 0.7 X 10^3 (0.0-1.0); MONOCYTES % (AUTO) 8 % (0-12); NEUTROPHILS % (AUTO) 71 % (42-75); PLATELET COUNT 218 10^3/uL (130-400); RED BLOOD COUNT 4.27 10^6/uL (4.35-5.85); RED CELL DISTRIBUTION WIDTH 14.3 % (10.0-14.5); WHITE BLOOD COUNT 8.4 10^3/uL (4.3-11.0)
[2017-08-29 07:10] LABS: ALANINE AMINOTRANSFERASE 14 U/L (0-55); ALBUMIN 3.3 GM/DL (3.2-4.5); ANION GAP 10 MMOL/L (5-14); ASPARTATE AMINO TRANSFERASE 15 U/L (5-34); BILIRUBIN,TOTAL 0.4 MG/DL (0.1-1.0); BLOOD UREA NITROGEN 14 MG/DL (7-18); BUN/CREATININE RATIO 17; CALCIUM 9.1 MG/DL (8.5-10.1); CARBON DIOXIDE 24 MMOL/L (21-32); CHLORIDE 100 MMOL/L (98-107); CREATININE SERUM 0.82 MG/DL (0.60-1.30); GFR ESTIMATED > 60; GLUCOSE 259 MG/DL (70-105); MAGNESIUM 1.7 MG/DL (1.8-2.4); SODIUM 134 MMOL/L (135-145); TOTAL PROTEIN 6.2 GM/DL (6.4-8.2)
[2017-08-29 08:37] VITALS: BP 154/69
[2017-08-29] MEDS: ESTRADIOL 1 MG TAB (ESTRACE) PO SCH (09:37)
[2017-08-29] MEDS: lisINopril 10 MG (PRINIVIL) TAB PO SCH (09:38)
[2017-08-29] MEDS: GABAPENTIN 100 MG (NEURONTIN) CAP PO SCH (09:38)
[2017-08-29] MEDS: inSUlin DETERMIR 1 UNIT/0.01 ML (LEVEMIR) CHARGE PER UNIT SQ SCH (09:39)
[2017-08-29] MEDS ORDERED: MIRT15TA8 PO (11:42)
--- NOTE | 2017-08-29 11:47 | Discharge Inst-Skilled Nursing ---
Discharge Inst-Skilled NF Patient Instructions Patient Problems: 1. ALCOHOLISM 2. DEPRESSION, MODERATE, RECURRENT 3. DIABETES TYPE 2 4. FREQUENT FALLS Goal: -IMPROVED ABILITY TO PERFORM ADLS -ALCOHOL CESSATION Patient Instructions: PLEASE FOLLOW UP WITH THE ADDICTIONS TREATMENT TEAM AT [facility]. Consult/Follow Up/Orders Follow up appt.: ABEL MELENDEZ APRN WILL SEE YOU DURING SNF ROUNDS NEXT WEEK. Skilled NF Admit to: [facility] I certify that SNF services are required to be given on an inpatient basis because of the above named patient's need for retirement care on a continuing basis for the conditions(s) for which he/she was receiving inpatient hospital services prior to his/her transfer to the SNF. Shelter Facility Order: Nursing Services, Home Worker-Evaluate & Treat, Physical Therapy-Evaluate & Treat Discharge Diet: ADA Diet Daily Activity as Tolerated: Yes Discharge Medications New, Converted or Re-Newed RX: Transmitted to Pharmacy New Medications: Mirtazapine (Mirtazapine) 15 Mg Tab.rapdis 15 MG PO HS, #30 TAB 0 Refills Continued Medications: Acetaminophen (Acetaminophen) 500 Mg Tablet 1000 MG PO Q6H PRN for PAIN-MILD/FEVER for 30 Days, TAB Bupropion HCl (Bupropion Xl) 150 Mg Tab.er.24h 450 MG PO DAILY, TAB LAST FILLED #90 07-06-17 TAKES 3 (150MG) TABLETS Escitalopram Oxalate (Escitalopram Oxalate) 20 Mg Tablet 20 MG PO DAILY, TAB Estradiol (Estradiol Tablet) 0.5 Mg Tablet 0.5 MG PO DAILY, TAB LAST FILLED #90 05-10-17 Gabapentin (Gabapentin) 100 Mg Capsule 200 MG PO BID, CAP TAKES 2 (100MG) CAPSULES Glucosamine HCl/Chondr Bentley A Na (Osteo Bi-Flex Caplet) 1 Each Tablet 1 TAB PO DAILY, TAB Insulin Aspart (Novolog Flexpen) 300 Units/3 Ml Solution 10-12 UNITS SQ TIDAC, EA Insulin Detemir (Levemir Flextouch) 100 Unit/1 Ml Insuln.pen 30 UNITS SQ BID, EA LAST FILLED 06-15-17 Lactobacillus Acidophilus (Probiotic) 1 Each Capsule 1 CAP PO DAILY, CAP Lisinopril (Lisinopril) 10 Mg Tablet 10 MG PO DAILY, TAB Multivitamin (Daily Multiple Vitamin) 1 Each Tablet 1 TAB PO DAILY, TAB Pantoprazole Sodium (Pantoprazole Sodium) 40 Mg Tablet.dr 40 MG PO DAILY, TAB Tramadol HCl (Tramadol HCl) 50 Mg Tablet 50 MG PO TID PRN for PAIN-MODERATE, TAB Vit C/E/Zn/Coppr/Lutein/Zeaxan (Preservision Areds 2 Softgel) 1 Each Capsule 1 TAB PO BID, CAP Discontinued Medications: Alprazolam (Alprazolam) 0.5 Mg Tablet 0.5 MG PO DAILY PRN for ANXIETY, TAB Dextroamphetamine/Amphetamine (Amphetamine Salts 30 mg Tablet) 30 Mg Tablet 30 MG PO DAILY, TAB Kayla Hubbard Aug 29, 2017 11:42 Copy Copies To 1: KAYLA DOAN APRN, MD Aug 29, 2017 11:47 am
[2017-08-29 12:00] VITALS: BP 140/69
== END 2017-08-29 14:30 | DRG 638 ==
LOC: EDUNIT# 17:11 → ER 17:14 → 4TH 19:42
PROVIDERS: ADMIT Family Medicine; ATTEND Family Medicine
DX: E11.65 Type 2 diabetes mellitus with hyperglycemia (principal); F33.2 Major depressive disorder, recurrent severe without psychotic features; F10.239 Alcohol dependence with withdrawal, unspecified; R26.81 Unsteadiness on feet; R42 Dizziness and giddiness; R41.0 Disorientation, unspecified; S00.83XA Contusion of other part of head, initial encounter; I10 Essential (primary) hypertension; K21.9 Gastro-esophageal reflux disease without esophagitis; M19.91 Primary osteoarthritis, unspecified site; L40.9 Psoriasis, unspecified; F41.9 Anxiety disorder, unspecified; J30.2 Other seasonal allergic rhinitis; Z79.4 Long term (current) use of insulin; Z87.891 Personal history of nicotine dependence; Z96.652 Presence of left artificial knee joint; W19.XXXA Unspecified fall, initial encounter; Y92.099 Unspecified place in other non-institutional residence as the place of occurrence of the external cause; Z91.19 Patient's noncompliance with other medical treatment and regimen
CPT/HCPCS: 36415; 80053; 80306; 80320; 81000; 82962; 83735; 85025; 96372; 99284

== ENCOUNTER 2017-10-15 04:57 | Observation (INO) | payer MEDICARE ==
[~2017-10-15] VITALS: Ht 170.2 cm; Wt 117.3 kg
[~2017-10-15 04:57] MED LIST changes: +MIRT15TA8 PO
--- OUTSIDE RECORDS SUMMARY | 2017-10-15 05:09 | XMS REPORT ---
Author Author Janina LAURA Organization [facility] Address [address] [place] [address] Care Team Providers Care Clerk To Justice Name Role Phone carmencitaLAURA Hollingsworth Unavailable PROBLEMS Type Condition ICD9-CM Code [id number] Code Onset Dates Condition Status SNOMED Code Problem Psoriatic arthritis L40.50 Active 374283865 Problem Major depressive disorder, recurrent, moderate F33.1 Active 78395896 Problem Other specified 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 Active 786378289 Problem Type 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 Active 72218012 Problem Essential hypertension I10 Active 84965717 Problem Attention-deficit hyperactivity disorder, predominantly hyperactive type F90.1 Active 956611598 Problem Attention-deficit hyperactivity disorder, combined type F90.2 Active 77290534 Problem PTSD (post-traumatic stress disorder) F43.10 Active 32851454 Problem Eating disorder F50.9 Active 55422637 Problem Generalized anxiety disorder F41.1 Active 82436607 Problem Major depressive disorder, recurrent episode, unspecified severity F33.9 Active 98449326 Problem Diabetes E11.9 Active 37396444 Problem 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 I10 Active 25033387 Problem Back pain M54.9 Active 165669832 Problem Psoriasis L40.9 Active 4382216 Problem Arthritis M19.90 Active 5189906 Problem Tobacco abuse Z72.0 Active 05348736 Problem intermediate 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 Active 351264329 ALLERGIES No Information SOCIAL HISTORY Never Assessed PLAN OF CARE VITAL SIGNS MEDICATIONS Medication Instructions Dosage Frequency Start Date End Date Duration Status Adderall 30 MG Orally Once a day 1 tablet in the morning 24h February, 28 days Active RESULTS No Results PROCEDURES [...] reflux Surgical History Left Knee SOA-Dr. Melendrez-[facility] 05/19/16 Hospitalization History surgeries Hospitalization History Left Knee SOA--Dr. Melendrez--[facility] Hospitalization History Septic shock, UTI-[facility] 07/27/17 Hospitalization History Multiple falls, hyperglycemia, sepsis 07/2017 Hospitalization History Alcoholism, depression, DM, Falls-[facility] 08/23/17
--- OUTSIDE RECORDS SUMMARY | 2017-10-15 05:10 | XMS REPORT ---
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 Active 33454796 Problem Essential hypertension I10 Active 72504620 Problem Attention-deficit hyperactivity disorder, predominantly hyperactive type F90.1 Active 888654796 Problem Attention-deficit hyperactivity disorder, combined type F90.2 Active 77489689 Problem PTSD (post-traumatic stress disorder) F43.10 Active 76678640 Problem Eating disorder F50.9 Active 04217725 Problem Generalized anxiety disorder F41.1 Active 14627403 Problem Major depressive disorder, recurrent episode, unspecified severity F33.9 Active 15053013 Problem Diabetes E11.9 Active 33656420 Problem 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 I10 Active 27399613 Problem Back pain M54.9 Active 826342094 Problem Psoriasis L40.9 Active 2485207 Problem Arthritis M19.90 Active 5872639 Problem Tobacco abuse Z72.0 Active 42196401 Problem watermaster 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 Active 985537312 ALLERGIES No Information SOCIAL HISTORY Never Assessed PLAN OF CARE Activity Details Follow Up 2 weeks, 1 hour only. Reason: VITAL SIGNS MEDICATIONS Unknown Medications RESULTS No Results PROCEDURES Procedure Date Ordered Result Body Site [facility] VISIT MENTAL HEALTH ESTAB PT March 09, 2017 Psychotherapy, patient &/family, 45 minutes, established patient March 09, 2017 IMMUNIZATIONS No Known Immunizations MEDICAL (GENERAL) [...] reflux Surgical History Left Knee SOA-Dr. Melendrez-[facility] 05/19/16 Hospitalization History surgeries Hospitalization History Left Knee DAX--Dr. Melendrez--[facility] Hospitalization History Septic shock, UTI-[facility] 07/27/17
--- OUTSIDE RECORDS SUMMARY | 2017-10-15 05:10 | XMS REPORT ---
Author Author CAROLINA BEAVER [facility] Address [address] [place] [address] Care Team Providers Care Guide Changer Name Role Phone CAROLINA BEAVER Unavailable PROBLEMS Type Condition ICD9-CM Code [id number] Code Onset Dates Condition Status SNOMED Code Problem Psoriatic arthritis L40.50 Active 666062433 Problem Major depressive disorder, recurrent, moderate F33.1 Active 68909528 Problem Other specified 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 Active 576583666 Problem Type 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 Active 67612316 Problem Essential hypertension I10 Active 39631877 Problem Attention-deficit hyperactivity disorder, predominantly hyperactive type F90.1 Active 999926127 Problem Attention-deficit hyperactivity disorder, combined type F90.2 Active 10505263 Problem PTSD (post-traumatic stress disorder) F43.10 Active 37162096 Problem Eating disorder F50.9 Active 05478125 Problem Generalized anxiety disorder F41.1 Active 91648090 Problem Major depressive disorder, recurrent episode, unspecified severity F33.9 Active 74094630 Problem Diabetes E11.9 Active 53211429 Problem 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 I10 Active 13536851 Problem Back pain M54.9 Active 941140774 Problem Psoriasis L40.9 Active 2975137 Problem Arthritis M19.90 Active 4405125 Problem Tobacco abuse Z72.0 Active 81175738 Problem intermediate 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 Active 241846089 ALLERGIES No Information SOCIAL HISTORY Never Assessed PLAN OF CARE VITAL SIGNS MEDICATIONS Medication Instructions Dosage Frequency Start Date End Date Duration Status Tramadol HCl 50 mg Orally every 6 [...] veinous reflux Surgical History Left Knee SOA-Dr. Melendrez-[facility] 05/19/16 Hospitalization History surgeries Hospitalization History Left Knee SOA--Dr. Melendrez--[facility] Hospitalization History Septic shock, UTI-[facility] 07/27/17 Hospitalization History Multiple falls, hyperglycemia, sepsis 07/2017 Hospitalization History Alcoholism, depression, DM, Falls-[facility] 08/23/17
--- OUTSIDE RECORDS SUMMARY | 2017-10-15 05:10 | XMS REPORT ---
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 Name Role Phone RICHARD THOMAS Unavailable PROBLEMS Type Condition ICD9-CM Code VTL05-WR Code Onset Dates Condition Status SNOMED Code Problem Psoriatic arthritis L40.50 Active 456165208 Problem Major depressive disorder, recurrent, moderate F33.1 Active 05719777 Problem Other specified 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 Active 946071989 Problem Type 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 Active 19657648 Problem Essential hypertension I10 Active 09284229 Problem Attention-deficit hyperactivity disorder, predominantly hyperactive type F90.1 Active 339724164 Problem Attention-deficit hyperactivity disorder, combined type F90.2 Active 17303145 Problem PTSD (post-traumatic stress disorder) F43.10 Active 64159068 Problem Eating disorder F50.9 Active 18059684 Problem Generalized anxiety disorder F41.1 Active 06962758 Problem Major depressive disorder, recurrent episode, unspecified severity F33.9 Active 74378443 Problem Diabetes E11.9 Active 73462699 Problem 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 I10 Active 80272466 Problem Back pain M54.9 Active 788220264 Problem Psoriasis L40.9 Active 6803637 Problem Arthritis M19.90 Active 9822772 Problem Tobacco abuse Z72.0 Active 55266126 Problem long-term 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 Active 073398815 ALLERGIES Substance Reaction Event Type Date Status Methylphenidate twitching Drug Allergy Sep, Active Byetta 5 MCG Pen stomach upset Drug Allergy Sep, Active SOCIAL HISTORY Never Assessed PLAN OF CARE VITAL SIGNS Height 65 in 2016-10-17 Weight 232.4 lbs 2016-10-17 Temperature 97.5 degrees Fahrenheit 2016-10-17 Heart Rate 88 bpm 2016-10-17 Respiratory Rate 22 2016-10-17 BMI 38.67 kg/m2 2016-10-17 Blood pressure systolic 122 mmHg 2016-10-17 Blood pressure diastolic 70 mmHg 2016-10-17 MEDICATIONS Medication Instructions Dosage Frequency Start Date End Date Duration Status BD Insulin Syringe 30G X 1/2 subcutaneously 4 times a day use with insulin 6h May, Active Humira Pen 40 MG/0.8ML Subcutaneous every 2 weeks 0.8 ml Jan, 90 days Active Multivitamin Adult - Orally, bubble pack for intermediate Once a day 1 tablet 24h Active Diflucan 150 MG Orally Once a day 1 tablet 24h Sep, 1 dose Active Tramadol HCl 50 mg Orally every 6 hrs 1 tablet as needed 6h Jul, Active Wellbutrin XL 150 MG 2 tabs every morning Active Alprazolam 1 MG Orally 4 times daily as needed 1 tablet February, Active Adderall 20 mg Orally Once a day 1 tablet in the morning 24h Jul, Active NovoLog Flexpen 100 UNIT/ML Subcutaneous 3 times a day 12 u 8h Sep, Active Insulin Detemir 100 UNIT/ML Subcutaneous Once a day 38 u 24h Sep, Active Nystatin 476291 UNIT/ML Mouth/Throat 4 times a day 5 ml 6h Dec, Active Triamcinolone Acetonide 0.1 % Externally to ears Twice a day 1 application to affected area 12h Sep, Active Lisinopril 10 MG TAKE ONE TABLET BY MOUTH ONCE DAILY (MUST HAVE APPOINTMENT FOR ADDITIONAL REFILLS) 30 Active Invokana 100 MG TAKE ONE TABLET BY MOUTH DAILY 30 Active Escitalopram Oxalate 10 MG Orally Once a day 1 tablet 24h May, Active PredniSONE 20 mg Orally Once a day 1 tablet 24h Sep, Sep, 05 days Active Promethazine HCl 25 MG Orally every 4-6 hours as needed 1 tablet as needed 5 Active RESULTS Name Result Date Reference Range STREP A (IN HOUSE) 2016-10-17 STREP A negative Control + Lot # [id number] Exp date PROCEDURES Procedure Date Ordered Result Body Site STREP A ASSAY W/OPTIC Oct 17, 2016 [facility] VISIT ESTABLISHED PATIENT Oct 17, 2016 SOLUMEDROL (UP TO 125 MG) Oct 17, 2016 THER/PROPH/DIAG INJ, SC/IM Oct 17, 2016 IMMUNIZATIONS Vaccine Route Administration Date Status SOLUMEDROL (UP TO 125 MG) IM Intramuscular Oct 17, 2016 Administered MEDICAL (GENERAL) HISTORY Type Description Date Medical [...] reflux Surgical History Left Knee SOA-Dr. Melendrez[facility] 05/19/16 Hospitalization History surgeries Hospitalization History Left Knee SOA--Dr. Melendrez--[facility] Hospitalization History Septic shock, UTI-[facility] [place] 07/27/17
[2017-10-15 05:13] LABS: BASOPHILS % (AUTO) 1 % (0-10); EOSINOPHILS # (AUTO) 0.2 10^3/uL (0.0-0.3); EOSINOPHILS % (AUTO) 3 % (0-10); LYMPHOCYTES # (AUTO) 1.4 X 10^3 (1.0-4.0); LYMPHOCYTES % (AUTO) 24 % (12-44); MEAN CORPUSCULAR HEMOGLOBIN 30 PG (25-34); MEAN CORPUSCULAR HGB CONC 33 G/DL (32-36); MEAN CORPUSCULAR VOLUME 89 FL (80-99); MEAN PLATELET VOLUME 9.2 FL (7.4-10.4); MONOCYTES # (AUTO) 0.3 X 10^3 (0.0-1.0); MONOCYTES % (AUTO) 6 % (0-12); NEUTROPHILS # (AUTO) 3.9 X 10^3 (1.8-7.8); NEUTROPHILS % (AUTO) 67 % (42-75); PLATELET COUNT 182 10^3/uL (130-400); RED BLOOD COUNT 5.11 10^6/uL (4.35-5.85); RED CELL DISTRIBUTION WIDTH 13.3 % (10.0-14.5); WHITE BLOOD COUNT 5.8 10^3/uL (4.3-11.0)
[2017-10-15] MEDS ORDERED: NS IV 1000 ML 1,000 ML IV ONE ×2 (05:17→05:43)
--- NOTE | 2017-10-15 05:24 | ED Fall/Injury ---
General Chief Complaint: General Problems/Pain Stated Complaint: WEAK,FELL & HIT HEAD YESTERDAY Nursing Triage Note: EMS advised that the patient has been experiencing weakness for several days that has become progressively worse. The patients family member on scene advise that the patient has had several falls in the past few days. The patient was also recently dismissed from the hospital secondary to dx. of UTI with sepsis. Source: patient, EMS, old records Exam Limitations: no limitations (MARIO GARCIA) History of Present Illness Time seen by provider: 05:13 Initial Comments Patient presents to ER by EMS with chief complaint that she had a fall while sitting on the toilet this evening just prior to arrival. She says she struck her head on the right occiput. Patient was recently in the hospital with UTI sepsis. She has not drank any alcohol since that admission. She smokes one or 2 cigarettes occasionally. She does not use any recreational drugs. She is not having any fevers, chills, nausea, vomiting, weakness, numbness. EMS reports she's had multiple falls in the last few weeks since discharging home. Patient says she had falls in sometimes there will she is on the toilet and times when standing up from sitting. (MARIO GARCIA) Allergies and Home Medications Allergies Coded Allergies: Sulfa (Sulfonamide Antibiotics) (Verified Allergy, Unknown, 08/26/14) morphine (Verified Adverse Reaction, Mild, NAUSEA, 05/19/16) Home Medications Acetaminophen 500 Mg Tablet, 1,000 MG PO Q6H PRN for PAIN-MILD/FEVER for 30 Days Prescribed by: REJI ROY on 08/19/17 1041 Bupropion HCl 150 Mg Tab.er.24h, 450 MG PO DAILY, (Reported) LAST FILLED #90 07-06-17 TAKES 3 (150MG) TABLETS Escitalopram Oxalate 20 Mg Tablet, 20 MG PO DAILY, (Reported) Estradiol 0.5 Mg Tablet, 0.5 MG PO DAILY, (Reported) LAST FILLED #90 05-10-17 Gabapentin 100 Mg Capsule, 200 MG PO BID, (Reported) TAKES 2 (100MG) CAPSULES Glucosamine HCl/Chondr Bentley A Na 1 Each Tablet, 1 TAB PO DAILY, (Reported) Insulin Aspart 300 Units/3 Ml Solution, 10-12 UNITS SQ TIDAC, (Reported) Insulin Detemir 100 Unit/1 Ml Insuln.pen, 30 UNITS SQ BID, (Reported) LAST FILLED 06-15-17 Lactobacillus Acidophilus 1 Each Capsule, 1 CAP PO DAILY, (Reported) Lisinopril 10 Mg Tablet, 10 MG PO DAILY, (Reported) Mirtazapine 15 Mg Tab.rapdis, 15 MG PO HS, #30 Ref 0 Prescribed by: KAYLA GUTIERREZ on 08/29/17 1142 Multivitamin 1 Each Tablet, 1 TAB PO DAILY, (Reported) Pantoprazole Sodium 40 Mg Tablet.dr, 40 MG PO DAILY, (Reported) Vit C/E/Zn/Coppr/Lutein/Zeaxan 1 Each Capsule, 1 TAB PO BID, (Reported) Constitutional: No chills, No fever Eyes: Denies Blindness, Denies Blurred Vision Ears, Nose, Mouth, Throat: denies ear pain, denies nose pain, denies epistaxis Respiratory: No cough, No short of breath Cardiovascular: No chest pain, No palpitations Gastrointestinal: No abdominal pain, No constipation, No diarrhea, No nausea, No vomiting Genitourinary: No discharge, No dysuria (MARIO GARCIA) Past Ageeekh-Srseeb-Dqndmp Hx Patient Social History Alcohol Use: Denies Use Number of Drinks Today: GG Alcohol Beverage of Choice: Whiskey Recreational Drug Use: Yes (ALCOHOL) Type Used: Cigarettes Former Smoker, Quit: Feb 18, 2016 2nd Hand Smoke Exposure: Yes Recent Foreign Travel: No Contact w/Someone Who Travel: No Recent Infectious Disease Expo: No Recent Hopitalizations: Yes Physical Abuse: No Sexual Abuse: No (MARIO GARCIA) Immunizations Up To Date Tetanus Booster (TDap): Less than 5yrs PED Vaccines UTD: No Date of Pneumonia Vaccine: Aug 13, 2015 Date of Influenza Vaccine: Jul 31, 2016 (MARIO GARCIA) Seasonal Allergies Seasonal Allergies: Yes (MARIO GARCIA) Surgeries History of Surgeries: Yes Surgeries: Abdominal, Section, Hysterectomy (MARIO GARCIA) Respiratory History of Respiratory Disorde: No (MARIO GARCIA) Cardiovascular History of Cardiac Disorders: Yes Cardiac Disorders: 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 (MARIO GARCIA) Neurological History of Neurological Disord: No (MARIO GARCIA) 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 System Hx 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 Disorders: No Sexually Transmitted Disease: No (MARIO GARCIA) Genitourinary History of Genitourinary Disor: No (MARIO GARCIA) Gastrointestinal History of Gastrointestinal Di: Yes Gastrointestinal Disorders: Gastroesophageal Reflux, Hiatal Hernia (MARIO GARCIA) Musculoskeletal History of Musculoskeletal Dis: Yes Musculoskeletal Disorders: Arthritis (MARIO GARCIA) Endocrine History of Endocrine Disorders: Yes Endocrine Disorders: Diabetes, Insulin dep (MARIO GARCIA) HEENT History of HEENT Disorders: Yes HEENT Disorders: Cataract (MARIO GARCIA) Cancer History of Cancer: No (MARIO GARCIA) Psychosocial History of Psychiatric Problem: Yes Behavioral Health Disorders: Anxiety Suicide Risk Score: 0 (MARIO GARCIA) Integumentary History of Skin or Integumenta: No Skin/Integumentary Disorders: Psoriasis (MARIO GARCIA) Blood Transfusions History of Blood Disorders: No Adverse Reaction to a Blood Tr: No (MARIO GARCIA) Family Medical History Significant Family History: No Pertinent Family Hx Family Medial History: AIDS Alcoholism Arthritis Asthma Cataracts Coronary thrombosis Diabetes mellitus Drug abuse Glaucoma Psychosocial problem Respiratory disorder No Family History of: Sadiq's disease Alzheimer's disease Aphasia Cancer of mouth Cardiovascular disease Colon cancer Completed stroke Congenital disease Congenital heart disease Cystic fibrosis Deafness or hearing loss Dementia Dysphasia Fibrocystic disease of breast Gastroenteritis Headache disorder Hypercholesterolemia 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 Infertility Kidney disease Myocardial infarction Neoplasm Not obtainable due to adoption Osteoporosis Parkinson's disease Prostate cancer Seizure disorder Severe allergy Thyroid disease Tuberculosis Visual disorder (MARIO GARCIA) Family Medial History: AIDS Alcoholism Arthritis Asthma Cataracts Coronary thrombosis Diabetes mellitus Drug abuse Glaucoma Psychosocial problem Respiratory disorder No Family History of: [place]ov[place]'s disease Alzheimer's disease Aphasia Cancer of mouth Cardiovascular disease Colon cancer Completed stroke Congenital disease Congenital heart disease Cystic fibrosis Deafness or hearing loss Dementia Dysphasia Fibrocystic disease of breast Gastroenteritis Headache disorder Hypercholesterolemia 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 Infertility Kidney disease Myocardial infarction Neoplasm Not obtainable due to adoption Osteoporosis Parkinson's disease Prostate cancer Seizure disorder Severe allergy Thyroid disease Tuberculosis Visual disorder (FARHAN LIRA MD) Physical Exam Vital Signs Vital Sign - Last 12Hours 10/15/17 05:10 Temp 97.8 Pulse 93 Resp 14 B/P (MAP) 142/79 (100) Pulse Ox 98 O2 Delivery Room Air (FARHAN LIRA MD) Vital Signs Capillary Refill : Less Than 3 Seconds (MARIO GARCIA) General Appearance: mild distress (mildly somnolent), obese HEENT: PERRL/EOMI, TMs normal, pharynx normal, other (negative for taylor sign or raccoon eyes.) Neck: non-tender, supple, normal inspection Cardiovascular: normal peripheral pulses, regular rate, rhythm, no edema Respiratory: chest non-tender, lungs clear, normal breath sounds, no respiratory distress Peripheral Pulses: 2+ Radial Pulses (R), 2+ Radial Pulses (L) Gastrointestinal: normal bowel sounds, non tender, soft Extremities: normal range of motion, non-tender, normal inspection, no pedal edema, normal capillary refill 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, no motor/sensory deficits, alert, normal mood/affect, oriented x 3 Skin: normal color, warm/dry (MARIO GARCIA) [place] Coma Score Best Eye Response: (4) Open Spontaneously Best Verbal Response: (5) Oriented Best Motor Response: (6) Obeys Commands Amanda Total: 15 (MARIO GARCIA) Progress/Results/Core Measures Results/Orders Lab Results Laboratory Tests Test 10/15/17 05:02 10/15/17 05:07 10/15/17 07:10 10/15/17 07:15 Range/Units White Blood Count 5.8 4.3-11.0 10^3/uL Red Blood Count 5.11 4.35-5.85 10^6/uL Hemoglobin 15.2 11.5-16.0 G/DL Hematocrit 46 35-52 % Mean Corpuscular Volume 89 80-99 FL Mean Corpuscular Hemoglobin 30 25-34 PG Mean Corpuscular Hemoglobin Concent 33 32-36 G/DL Red Cell Distribution Width 13.3 10.0-14.5 % Platelet Count 182 130-400 10^3/uL Mean Platelet Volume 9.2 7.4-10.4 FL Neutrophils (%) (Auto) 67 42-75 % Lymphocytes (%) (Auto) 24 12-44 % Monocytes (%) (Auto) 6 0-12 % Eosinophils (%) (Auto) 3 0-10 % Basophils (%) (Auto) 1 0-10 % Neutrophils # (Auto) 3.9 1.8-7.8 X 10^3 Lymphocytes # (Auto) 1.4 1.0-4.0 X 10^3 Monocytes # (Auto) 0.3 0.0-1.0 X 10^3 Eosinophils # (Auto) 0.2 0.0-0.3 10^3/uL Basophils # (Auto) 0.0 0.0-0.1 10^3/uL Sodium Level 141 135-145 MMOL/L Potassium Level 3.9 3.6-5.0 MMOL/L Chloride Level 100 98-107 MMOL/L Carbon Dioxide Level 26 21-32 MMOL/L Anion Gap 15 H 5-14 MMOL/L Blood Urea Nitrogen 14 7-18 MG/DL Creatinine 1.00 0.60-1.30 MG/DL Estimat Glomerular Filtration Rate 56 BUN/Creatinine Ratio 14 Glucose Level 286 H 70-105 MG/DL Lactic Acid Level 2.54 *H 0.50-2.00 MMOL/L Calcium Level 9.6 8.5-10.1 MG/DL Total Bilirubin 0.2 0.1-1.0 MG/DL Aspartate Amino Transf (AST/SGOT) 14 5-34 U/L Alanine Aminotransferase (ALT/SGPT) 17 0-55 U/L Alkaline Phosphatase 130 40-136 U/L Total Protein 7.4 6.4-8.2 GM/DL Albumin 3.9 3.2-4.5 GM/DL Prothrombin Time 12.4 12.2-14.7 SEC INR Comment 0.9 0.8-1.4 Activated Partial Thromboplast Time 27 24-35 SEC (FARHAN LIRA MD) Medications Given in ED Current Medications Medications Dose Ordered Sig/Minal Route Start Time Stop Time Status Last Admin Dose Admin Sodium Chloride 1,000 ml @ 0 mls/hr Q0M ONCE IV 10/15/17 05:17 10/15/17 05:21 DC 10/15/17 06:12 0 MLS/HR (FARHAN LIRA MD) Vital Signs/I&O Vital Sign - Last 12Hours 10/15/17 05:10 Temp 97.8 Pulse 93 Resp 14 B/P (MAP) 142/79 (100) Pulse Ox 98 O2 Delivery Room Air (FARHAN LIRA MD) Blood Pressure Mean: 100 Progress Note : Time: 05:25 Progress Note Struck her head and has a small hematoma on the right occipital scalp as well as she is practically 63 years old. We'll go ahead and scan her. Her somnolence is likely due to the fact that its 5 in the morning. We'll get some blood and urine and a lactic acid taking about possible causes for her falls. Certainly vasovagal is high on the differential so we'll get a set of orthostatic vitals. If she does not meet inpatient criteria she may meet an acute rehabilitation stay for her history of recent falls. (MARIO GARCIA) Progress Note : Progress Note [address] filled and she has evidence of acute pathology. The patient was unable to weight bear without the assistance of 2 nurses in the emergency department. was kind enough to admit the patient to observation for further evaluation of her progressive falls. (FARHAN LIRA MD) Diagnostic Imaging Diagonstic Imaging: Xray Plain Films/CT/US/NM/MRI: chest Comments Poor respiratory effort on a 1 view film. No acute cardiopulmonary process noted. Reviewed: Reviewed by Me Diagonstic Imaging: CT Plain Films/CT/US/NM/MRI: c-spine, head Comments No acute intracranial findings. Partial OPACIFICATION of the right mastoids. C- spine with no acute fractures. Reviewed: Reviewed by Me (MARIO GARCIA) Departure Communication (Admissions) Time/Spoke to Admitting Phy: 07:[address] Stacy (FARHAN LIRA MD) Impression Impression: Primary Impression: Fall Qualified Codes: W19.XXXA - Unspecified fall, initial encounter Additional Impressions: Scalp contusion Qualified Codes: S00.03XA - Contusion of scalp, initial encounter Debility Disposition: ADMITTED INPATIENT Condition: Unchanged Admissions Decision to Admit Reason: Admit from ER (General) Decision to Admit/Date: Oct 15, 2017 Time/Decision to Admit Time: 07:25 (FARHAN LIRA MD) Departure-Patient Inst. Referrals: REJI ROY MD (PCP/Family) Primary Care Physician Copy Copies To 1: AHMET CHRIS TITUS J Oct 15, 2017 05:24 FARHAN LIRA MD Oct 15, 2017 07:26
[2017-10-15 05:32] LABS: ALBUMIN 3.9 GM/DL (3.2-4.5); BILIRUBIN,TOTAL 0.2 MG/DL (0.1-1.0); CALCIUM 9.6 MG/DL (8.5-10.1); POTASSIUM 3.9 MMOL/L (3.6-5.0); TOTAL PROTEIN 7.4 GM/DL (6.4-8.2)
[2017-10-15] MEDS ORDERED: NS IV 500 ML 500 ML IV ONE (05:43)
[2017-10-15 05:59] LABS: INR 0.9 (0.8-1.4); PROTHROMBIN TIME PATIENT 12.4 SEC (12.2-14.7)
--- NOTE | 2017-10-15 06:56 | Diagnostic Imaging Report ---
PROCEDURE: CT head and neck without contrast. TECHNIQUE: Contiguous axial images were obtained from the skull base through the vertex. Noncontrast axial images were then obtained of the soft tissue of the neck. INDICATION: Weakness, status post fall hitting head. CORRELATION STUDY: CT head 08/22/2017 FINDINGS: CT HEAD: Ventricles and sulci are age-appropriate. No abnormal areas of decreased attenuation to suggest edema. No midline shift or mass effect. No intracranial hemorrhage. Bony calvarium intact. There is partial opacification of the right mastoid air cells. Visualized paranasal sinuses are clear. CT CERVICAL SPINE: Cervical spine alignment is straightened but otherwise relatively anatomic. No acute fracture or traumatic subluxation. There is rather advanced multilevel cervical spondylosis with disc space narrowing. Endplate osteophytes result in osseous encroachment on the foramina. Hypertrophic changes of the facet joints. Odontoid appearing to be intact. IMPRESSION: CT HEAD: 1. Negative for acute intracranial abnormality. CT CERVICAL SPINE: 1. Negative for acute fracture or traumatic subluxation. Multilevel degenerative changes present. A preliminary report was provided by [employer]. Dictated by: Dictated on workstation # [id number]
[2017-10-15 07:22] LABS: BILIRUBIN,URINE NEGATIVE (NEGATIVE); KETONES,URINE NEGATIVE (NEGATIVE); LEUKOCYTE ESTERASE ,URINE NEGATIVE (NEGATIVE); NITRITE,URINE NEGATIVE (NEGATIVE); PH,URINE 6 (5-9); PROTEIN,URINE NEGATIVE (NEGATIVE); UROBILINOGEN,URINE NORMAL (NORMAL)
--- NOTE | 2017-10-15 07:32 | Diagnostic Imaging Report ---
INDICATION: Status post fall, hitting head. Weakness. TECHNIQUE: Single-view chest 5:45 AM. CORRELATION STUDY: 08/22/2017. FINDINGS: Very limited depth of inspiration. Given this, heart size, mediastinum, vasculature overall are prominent. Vasculature may be slightly increased from prior study. Likely atelectasis at the lung bases. Mildly prominent interstitial markings. IMPRESSION: Limited, suboptimal depth of inspiration. Given this, there does appear to be some degree of vascular congestion. Very short-term followup imaging when patient is clinically able. Dictated by: Dictated on workstation # [id number]
[2017-10-15 07:53] LABS: YEAST,URINE FEW /HPF
[2017-10-15 08:16] VITALS: BP 138/93
--- NOTE | 2017-10-15 09:14 | History & Physicial (CHS) ---
HPI History of Present Illness: 62-year-old female presented to emergency department by EMS this morning after apparently suffering from a fall after sitting on the toilet. She apparently struck her head on the right side posteriorly. She was dismissed after having urosepsis 2 weeks ago. She does report having a follow-up with her primary care physician and apparently had a good report. She has been taking her medications for depression as well as diabetes regularly. Patient is admitted for further evaluation of her dizziness that resulted in her fall. Source: patient Exam Limitations: clinical condition Date seen by provider: Oct 15, 2017 Time Seen by Provider: 09:25 Attending Physician Basilio Queen MD PCP Courtney Mendes MD Consult Date of Admission Oct 15, 2017 at 07:41 Home Medications Home Medications Reviewed patient Home Medication Reconciliation Form Allergies Coded Allergies: Sulfa (Sulfonamide Antibiotics) (Verified Allergy, Unknown, 08/26/14) morphine (Verified Adverse Reaction, Mild, NAUSEA, 05/19/16) [id number] Hx Patient Social History Alcohol Use: Past History Recreational Drug Use: Yes (ALCOHOL) Type Used: Cigarettes 2nd Hand Smoke Exposure: Yes Recent Foreign Travel: No Contact w/other who traveled: No Recent Hopitalizations: Yes Recent Infectious Disease Expo: No Physical Abuse Screen: No Sexual Abuse: No Immunizations Up To Date Tetanus Booster (TDap): Less than 5yrs Date of Pneumonia Vaccine: Aug 13, 2015 Date of Influenza Vaccine: Jul 31, 2016 Past Medical History IDDM HTN Tobacco USE Arthritis Alcohol Abuse Medical Noncompliance Frequent Falls Family Medical History Significant Family History: No Pertinent Family Hx Family History: AIDS Alcoholism Arthritis Asthma Cataracts Coronary thrombosis Diabetes mellitus Drug abuse Glaucoma Psychosocial problem Respiratory disorder No Family History of: Freestone's disease Alzheimer's disease Aphasia Cancer of mouth Cardiovascular disease Colon cancer Completed stroke Congenital disease Congenital heart disease Cystic fibrosis Deafness or hearing loss Dementia Dysphasia Fibrocystic disease of breast Gastroenteritis Headache disorder Hypercholesterolemia 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 Infertility Kidney disease Myocardial infarction Neoplasm Not obtainable due to adoption Osteoporosis Parkinson's disease Prostate cancer Seizure disorder Severe allergy Thyroid disease Tuberculosis Visual disorder Review of Systems ([facility]) Constitutional: see HPI Reviewed Test Results Reviewed Test Results Lab Laboratory Tests Test 10/15/17 05:02 10/15/17 05:07 10/15/17 07:10 10/15/17 07:15 Range/Units White Blood Count 5.8 4.3-11.0 10^3/uL Red Blood Count 5.11 4.35-5.85 10^6/uL Hemoglobin 15.2 11.5-16.0 G/DL Hematocrit 46 35-52 % Mean Corpuscular Volume 89 80-99 FL Mean Corpuscular Hemoglobin 30 25-34 PG Mean Corpuscular Hemoglobin Concent 33 32-36 G/DL Red Cell Distribution Width 13.3 10.0-14.5 % Platelet Count 182 130-400 10^3/uL Mean Platelet Volume 9.2 7.4-10.4 FL Neutrophils (%) (Auto) 67 42-75 % Lymphocytes (%) (Auto) 24 12-44 % Monocytes (%) (Auto) 6 0-12 % Eosinophils (%) (Auto) 3 0-10 % Basophils (%) (Auto) 1 0-10 % Neutrophils # (Auto) 3.9 1.8-7.8 X 10^3 Lymphocytes # (Auto) 1.4 1.0-4.0 X 10^3 Monocytes # (Auto) 0.3 0.0-1.0 X 10^3 Eosinophils # (Auto) 0.2 0.0-0.3 10^3/uL Basophils # (Auto) 0.0 0.0-0.1 10^3/uL Sodium Level 141 135-145 MMOL/L Potassium Level 3.9 3.6-5.0 MMOL/L Chloride Level 100 98-107 MMOL/L Carbon Dioxide Level 26 21-32 MMOL/L Anion Gap 15 H 5-14 MMOL/L Blood Urea Nitrogen 14 7-18 MG/DL Creatinine 1.00 0.60-1.30 MG/DL Estimat Glomerular Filtration Rate 56 BUN/Creatinine Ratio 14 Glucose Level 286 H 70-105 MG/DL Lactic Acid Level 2.54 *H 1.68 0.50-2.00 MMOL/L Calcium Level 9.6 8.5-10.1 MG/DL Total Bilirubin 0.2 0.1-1.0 MG/DL Aspartate Amino Transf (AST/SGOT) 14 5-34 U/L Alanine Aminotransferase (ALT/SGPT) 17 0-55 U/L Alkaline Phosphatase 130 40-136 U/L Total Protein 7.4 6.4-8.2 GM/DL Albumin 3.9 3.2-4.5 GM/DL Serum Alcohol 15 H <10 MG/DL Prothrombin Time 12.4 12.2-14.7 SEC INR Comment 0.9 0.8-1.4 Activated Partial Thromboplast Time 27 24-35 SEC Urine Color YELLOW Urine Clarity CLEAR Urine pH 6 5-9 Urine Specific [place] 1.010 L 1.016-1.022 Urine Protein NEGATIVE NEGATIVE Urine Glucose (UA) 4+ H NEGATIVE Urine Ketones NEGATIVE NEGATIVE Urine Nitrite NEGATIVE NEGATIVE Urine Bilirubin NEGATIVE NEGATIVE Urine Urobilinogen NORMAL NORMAL MG/DL Urine Leukocyte Esterase NEGATIVE NEGATIVE Urine RBC (Auto) NEGATIVE NEGATIVE Urine RBC NONE /HPF Urine WBC NONE /HPF Urine Squamous Epithelial Cells 2-5 /HPF Urine Crystals NONE /LPF Urine Bacteria NEGATIVE /HPF Urine Casts NONE /LPF Urine Mucus NEGATIVE /LPF Urine Yeast FEW H /HPF Urine Culture Indicated NO Urine Opiates Screen NEGATIVE NEGATIVE Urine Oxycodone Screen NEGATIVE NEGATIVE Urine Methadone Screen NEGATIVE NEGATIVE Urine Propoxyphene Screen NEGATIVE NEGATIVE Urine Barbiturates Screen NEGATIVE NEGATIVE Ur Tricyclic Antidepressants Screen POSITIVE H NEGATIVE Urine Phencyclidine Screen NEGATIVE NEGATIVE Urine Amphetamines Screen NEGATIVE NEGATIVE Urine Methamphetamines Screen NEGATIVE NEGATIVE Urine Benzodiazepines Screen POSITIVE H NEGATIVE Urine Cocaine Screen NEGATIVE NEGATIVE Urine Cannabinoids Screen NEGATIVE NEGATIVE Radiology NAME: JANEEN MAC [facility] REC#: [id number] PT STATUS: REG ER : 1955 PHYSICIAN: MARIO GARCIA MD ADMIT DATE: 10/15/17/ER Draft Date of Exam:10/15/17 CT HEAD/NECK WO PROCEDURE: CT head and neck without contrast. TECHNIQUE: Contiguous axial images were obtained from the skull base through the vertex. Noncontrast axial images were then obtained of the soft tissue of the neck. INDICATION: Weakness, status post fall hitting head. CORRELATION STUDY: CT head 08/22/2017 FINDINGS: CT HEAD: Ventricles and sulci are age-appropriate. No abnormal areas of decreased attenuation to suggest edema. No midline shift or mass effect. No intracranial hemorrhage. Bony calvarium intact. There is partial opacification of the right mastoid air cells. Visualized paranasal sinuses are clear. CT CERVICAL SPINE: Cervical spine alignment is straightened but otherwise relatively anatomic. No acute fracture or traumatic subluxation. There is rather advanced multilevel cervical spondylosis with disc space narrowing. Endplate osteophytes result in osseous encroachment on the foramina. Hypertrophic changes of the facet joints. Odontoid appearing to be intact. IMPRESSION: CT HEAD: 1. Negative for acute intracranial abnormality. CT CERVICAL SPINE: 1. Negative for acute fracture or traumatic subluxation. Multilevel degenerative changes present. A preliminary report was provided by [facility]. Dictated on workstation # [id number] Dict: 10/15/17 0559 Trans: 10/15/17 0656 [facility] [id number] Interpreted by: VIRGINIE CRANE DO Electronically signed by: Physical Exam-([facility]) Physical Exam Vital Signs VS - Last 72 Hours, by Label 10/15/17 10/15/17 10/15/17 10/15/17 05:10 08:13 08:16 12:00 Temp 97.8 96.8 98.2 Pulse 93 97 100 87 Resp 14 18 18 18 B/P (MAP) 142/79 (100) 138/93 (108) 176/86 (116) Pulse Ox 98 97 94 92 O2 Delivery Room Air Room Air Room Air Capillary Refill : Less Than 3 Seconds General Appearance: no apparent distress Eyes: Bilateral Eye Normal Inspection HEENT: normal ENT inspection Neck: normal inspection Respiratory: lungs clear Cardiovascular: regular rate, rhythm Gastrointestinal: soft Rectal: deferred Neurologic/Psychiatric: no motor/sensory deficits, alert, oriented x 3 Skin: normal color Clinical Quality Measures DVT/VTE Risk/Contraindication: Risk Factor Score Per Nursin RFS Level Per Nursing on Admit: 4+=Very High Assessment/Plan Assessment/Plan Admission Dx 1. Traumatic fall with multiple falls in the last 2 weeks 2. Dizziness 3. Diabetes mellitus--history of and on insulin 4. 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--history of 5. Depression--history of Plan 1. Traumatic fall with head injury -patient admitted for observation due to the fall -Physical therapy consultation 2. Dizziness -Monitor as above 3. Diabetes mellitus--history of and on insulin -she will be started back on her Farxiga as well as insulin -Monitor glucose by Accu-Cheks 4 times a day 4. 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--history of -monitor blood pressure as she is currently not taking blood pressure medications at home 5. Depression--history of -she will be maintained on her Wellbutrin and generic Lexapro BASILIO QUEEN MD Oct 15, 2017 09:14
[2017-10-15] MEDS ORDERED: ACETAMINOPHEN 500 MG TAB (TYLENOL) PO PRN (10:15)
[2017-10-15] MEDS ORDERED: NON-FORMULARY MEDICATION 1 EA EA (Insulin Aspart (Novolog Flexpen) 12 UNITS) SQ SCH (11:00)
[2017-10-15 12:00] VITALS: BP 176/86
[2017-10-15] MEDS: inSUlin ASPART (NovoLOG) 1 UNIT/0.01 ML (CHARGE PER UNIT) SC SCH ×2 (12:45→20:04)
--- NOTE | 2017-10-15 14:15 | Physical Therapy Evaluation ---
PT Evaluation-General Medical Diagnosis Admission Date Oct 15, 2017 at 07:41 Medical Diagnosis: frequent falls Onset Date: Oct 15, 2017 Therapy Diagnosis Therapy Diagnosis: weakness Height/Weight Height (Feet): 5 Height (Inches): 7.00 Weight (Pounds): 258 Weight (Ounces): 8.0 Precautions Precautions/Isolations: Fall Prevention, Standard Precautions Weight Bear Status Right Lower Extremity: Right Weight Bearing/Tolerated Left Lower Extremity: Left Weight Bearing/Tolerated as tolerated Referral Physician: Regis Reason for Referral: Evaluation/Treatment Medical History Pertinent Medical History: Alcoholism, Arthritis, DM, GERD, HTN, Smoking Social History Home: Single Level Current Living Status: Other Family Prior/[facility] Prior Level of Function Functional Kuna Measure 0=Not Assessed/NA 4=Minimal Assistance 1=Total Assistance 5=Supervision or Setup 2=Maximal Assistance 6=Modified Kuna 3=Moderate Assistance 7=Complete Kuna Bed Mobility: 7 Transfers (B,C,W/C) (FIM): 7 Gait: 7 PT Evaluation-Current Subjective States that she is ready to go home. Pain Numeric Pain Scale: 2 Location: Left Location Body Site: Hip Objective Patient Orientation: Person, Place, Time ROM/Strength Strength Upper Extremities 3+/5 throughout hip Strength Lower Extremities 3+/5 throughout hip Transfers Functional Kuna Measure 0=Not Assessed/NA 4=Minimal Assistance 1=Total Assistance 5=Supervision or Setup 2=Maximal Assistance 6=Modified Kuna 3=Moderate Assistance 7=Complete Kuna Transfers (B, C, W/C) (FIM): 5 Scootin Rollin Supine to/from Sit: 5 Sit to/from Stand: 5 Gait Mode of Locomotion: Walk Anticipated Mode of Locomotion: Walk Gait (FIM): 1 Distance (FIM): 1=up to 49 ft Distance: 20' Gait Level of Assist: 5 Gait Persons Needed: 1 Gait Assistive Device: FWW Balance Sitting Static: Normal Sitting Dynamic: Good Standing Static: Fair Standing Dynamic: Fair Assessment/Needs The patient sustained a fall during the middle of the night. She has weakness and balance limitations which require skilled therapy. Rehab Potential: Good PT Short Term Goals Short Term Goals Time Frame: Oct 22, 2017 Transfers (B,C,W/C) (FIM): 6 Gait (FIM): 5 Distance (FIM): 3=150 ft Gait Distance Comment: 200' Gait Level of Assist: 6 Gait Assistive Device: FWW PT Retirement Goals Retirement Goals PT Retirement Goals Time Frame: Oct 29, 2017 Transfers (B,C,W/C) (FIM): 7 Gait (FIM): 7 Gait distance (FIM): 3=150 ft Distance: 300' Gait Level of Assist: 7 Gait Assistive Device: None PT Plan Problem List Problem List: Activity Tolerance, Functional Strength, Balance, Gait, Transfer , Bed Mobility Treatment/Plan Treatment Plan: Continue Plan of Care Treatment Plan: Bed Mobility, Functional Activity Garrick, Functional Strength, Gait, Safety, Therapeutic Exercise, Transfers Treatment Duration: Oct 29, 2017 Frequency: 11 times per week Estimated Hrs Per Day: .5 hour per day Patient and/or Family Agrees t: Yes Discharge Recommendations Therapy D/C Recommendations: Physical Therapy Outpatient Time/GCodes Time In: 1330 Time Out: 1345 Total Billed Treatment Time: 15 Total Billed Treatment 1, EV NATHALIE Cummings Codes Necessary: KEN Larkin PT Oct 15, 2017 14:15
[2017-10-15] MEDS ORDERED: IBUPROFEN TABLET 200 MG TAB PO PRN (16:00)
[2017-10-15 16:14] VITALS: BP 155/70
[2017-10-15 19:20] VITALS: BP 151/71
[2017-10-15] MEDS ORDERED: NON-FORMULARY MEDICATION 1 EA EA (Vit C/E/Zn/Coppr/Lutein/Zeaxan (Preservision Areds 2 Sof PO SCH (21:00)
[2017-10-15] MEDS: inSUlin (REGULAR) HUMAN 1 UNIT/0.01 ML (CHARGE PER UNIT) SC SCH (21:40)
[2017-10-16] VITALS: BP 119/58
[2017-10-16 04:00] VITALS: BP 141/80
[2017-10-16] MEDS: inSUlin (REGULAR) HUMAN 1 UNIT/0.01 ML (CHARGE PER UNIT) SC SCH ×2 (05:42→11:38)
[2017-10-16 06:15] LABS: BASOPHILS % (AUTO) 0 % (0-10); EOSINOPHILS # (AUTO) 0.3 10^3/uL (0.0-0.3); EOSINOPHILS % (AUTO) 3 % (0-10); LYMPHOCYTES # (AUTO) 1.9 X 10^3 (1.0-4.0); LYMPHOCYTES % (AUTO) 25 % (12-44); MEAN CORPUSCULAR HEMOGLOBIN 30 PG (25-34); MEAN CORPUSCULAR HGB CONC 33 G/DL (32-36); MEAN CORPUSCULAR VOLUME 90 FL (80-99); MEAN PLATELET VOLUME 9.3 FL (7.4-10.4); MONOCYTES # (AUTO) 0.6 X 10^3 (0.0-1.0); MONOCYTES % (AUTO) 8 % (0-12); NEUTROPHILS # (AUTO) 4.8 X 10^3 (1.8-7.8); NEUTROPHILS % (AUTO) 63 % (42-75); PLATELET COUNT 158 10^3/uL (130-400); RED CELL DISTRIBUTION WIDTH 13.2 % (10.0-14.5); WHITE BLOOD COUNT 7.6 10^3/uL (4.3-11.0)
[2017-10-16 06:42] LABS: ALANINE AMINOTRANSFERASE 15 U/L (0-55); ALBUMIN 3.3 GM/DL (3.2-4.5); ANION GAP 10 MMOL/L (5-14); ASPARTATE AMINO TRANSFERASE 14 U/L (5-34); BILIRUBIN,TOTAL 0.2 MG/DL (0.1-1.0); BLOOD UREA NITROGEN 15 MG/DL (7-18); BUN/CREATININE RATIO 19; CALCIUM 8.9 MG/DL (8.5-10.1); CARBON DIOXIDE 25 MMOL/L (21-32); CHLORIDE 102 MMOL/L (98-107); GFR ESTIMATED > 60; GLUCOSE 186 MG/DL (70-105); SODIUM 137 MMOL/L (135-145)
[2017-10-16] MEDS ORDERED: MULTIVIT W/MINERALS TAB (THERAGRAN M) PO SCH (07:00)
[2017-10-16] MEDS ORDERED: PANTOPRAZOLE 40 MG (PROTONIX) TAB PO SCH (07:00)
[2017-10-16] MEDS ORDERED: buPROPion SR 150 MG (WELLBUTRIN SR) TAB PO SCH (07:00)
[2017-10-16 07:35] VITALS: BP 148/81
--- NOTE | 2017-10-16 08:37 | Discharge Summary ---
Diagnosis/Chief Complaint Date of Admission Oct 15, 2017 at 07:41 Date of Discharge October 16, 2017 Admission Diagnosis Admission Diagnosis 1. Traumatic fall with head contusion October 14 2. Dizziness 3. Diabetes mellitus--history of and on insulin 4. 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--history of 5. Depression--history of Discharge Diagnosis 1. Traumatic fall with head contusion October 14 2. Dizziness--improved 3. Diabetes mellitus--history of and on insulin 4. 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--history of 5. Depression--history of Chief Complaint/HPI Chief Complaint/HPI 62-year-old female presented to emergency department by EMS this morning after apparently suffering from a fall after sitting on the toilet. She apparently struck her head on the right side posteriorly. She was dismissed after having urosepsis 2 weeks ago. She does report having a follow-up with her primary care physician and apparently had a good report. She has been taking her medications for depression as well as diabetes regularly. Patient is admitted for further evaluation of her dizziness that resulted in her fall. Discharge Summary-Simple/Stand Consultations Physical therapy October 15, 2017 Discharge Physical Examination Allergies: Coded Allergies: Sulfa (Sulfonamide Antibiotics) (Verified Allergy, Unknown, 08/26/14) morphine (Verified Adverse Reaction, Mild, NAUSEA, 05/19/16) Vitals & I&Os Vital Sign - Last 12Hours Date Time Temp Pulse Resp B/P (MAP) Pulse Ox O2 Delivery O2 Flow Rate FiO2 10/16/17 04:00 97.9 86 16 141/80 (100) 94 Room Air Intake and Output 10/16/17 00:00 Intake Total 1834 ml Output Total 2050 ml Balance -216 ml General Appearance: Oriented X3, No Acute Distress HEENT: Mucous Memb Moist/[place] Respiratory: Clear to Auscultation Cardiovascular: Regular Rate Abdominal: Soft Extremities: No Edema, No Tenderness/Swelling Skin: No Rashes Psych/Mental Status: Mental Status NL Hospital Course Patient was admitted October 15, 2017 after having fall at home. She was admitted for further monitoring and observation after head contusion. She remained stable regarding neurological findings. Physical therapy was performed due to the unsteady gait on October 15, 2017. Recommendations were for outpatient physical therapy. In the morning of October 16, 2017 patient reports she feels fine and does live at home. She does plan on staying at home and does not want to be placed at this time. She reports she does live with her who does primarily all of the driving. She will follow-up with her primary care physician at [facility] within the week. Radiology Reviewed NAME: JANEEN MAC [facility] REC#: [id number] PT STATUS: REG ER : 1955 PHYSICIAN: MARIO GARCIA MD ADMIT DATE: 10/15/17/ER Draft Date of Exam:10/15/17 CT HEAD/NECK WO PROCEDURE: CT head and neck without contrast. TECHNIQUE: Contiguous axial images were obtained from the skull base through the vertex. Noncontrast axial images were then obtained of the soft tissue of the neck. INDICATION: Weakness, status post fall hitting head. CORRELATION STUDY: CT head 08/22/2017 FINDINGS: CT HEAD: Ventricles and sulci are age-appropriate. No abnormal areas of decreased attenuation to suggest edema. No midline shift or mass effect. No intracranial hemorrhage. Bony calvarium intact. There is partial opacification of the right mastoid air cells. Visualized paranasal sinuses are clear. CT CERVICAL SPINE: Cervical spine alignment is straightened but otherwise relatively anatomic. No acute fracture or traumatic subluxation. There is rather advanced multilevel cervical spondylosis with disc space narrowing. Endplate osteophytes result in osseous encroachment on the foramina. Hypertrophic changes of the facet joints. Odontoid appearing to be intact. IMPRESSION: CT HEAD: 1. Negative for acute intracranial abnormality. CT CERVICAL SPINE: 1. Negative for acute fracture or traumatic subluxation. Multilevel degenerative changes present. A preliminary report was provided by [employer]. Dictated on workstation # [id number] Dict: 10/15/17 0559 Trans: 10/15/17 0656 [facility] [id number] Interpreted by: VIRGINIE CRANE DO Electronically signed by: Discharge Instructions to patient/family Please see electronic discharge instructions given to patient. Discharge Medications Reviewed and agree with Discharge Medication list on patient's Discharge Instruction sheet Clinical Quality Measures DVT/VTE Risk/Contraindication: Risk Factor Score Per Nursin RFS Level Per Nursing on Admit: 4+=Very High FRANCOISE QUEEN MD Oct 16, 2017 08:37
--- NOTE | 2017-10-16 08:39 | Discharge Inst-Simple/Standard ---
Discharge Inst-Standard Discharge Medications New, Converted or Re-Newed RX: Other (No new scripts) Patient Instructions/Follow Up Plan of Care/Instructions/FU: Follow blood with Dr. Mendes within the week Activity as Tolerated: Yes Discharge Diet: Low Sodium Diet Return to The Hospital For: Worsening symptoms such as return of significant dizziness or persistent unsteadiness on feet. FRANCOISE QUEEN MD Oct 16, 2017 08:39
[2017-10-16] MEDS ORDERED: ESTRADIOL 1 MG TAB (ESTRACE) PO SCH (09:00)
[2017-10-16] MEDS ORDERED: NON-FORMULARY MEDICATION 1 EA EA (Multivitamin (Daily Multiple Vitamin) 1 TAB) PO SCH (09:00)
[2017-10-16] MEDS ORDERED: NON-FORMULARY MEDICATION 1 EA EA (Estradiol (Estradiol Tablet) 0.5 MG) PO SCH (09:00)
[2017-10-16] MEDS ORDERED: LACTOBACILLUS Acidoph/Bulgar (LACTINEX/FLORANEX) TAB PO SCH (09:00)
[2017-10-16] MEDS ORDERED: NON-FORMULARY MEDICATION 1 EA EA (Escitalopram Oxalate 20 MG) PO SCH (09:00)
[2017-10-16] MEDS ORDERED: NON-FORMULARY MEDICATION 1 EA EA (Lactobacillus Acidophilus (Probiotic) 1 CAP) PO SCH (09:00)
[2017-10-16] MEDS ORDERED: buPROPion XL 150 MG (WELLBUTRIN XL) NON-FORM PO SCH (09:00)
[2017-10-16] MEDS: inSUlin ASPART (NovoLOG) 1 UNIT/0.01 ML (CHARGE PER UNIT) SC SCH (09:11)
[2017-10-16 11:40] VITALS: BP 159/79
== END 2017-10-16 08:38 | disposition home or self-care (01) ==
LOC: EDUNIT# 04:57 → ER 05:00 → 4TH 07:41 → UNDOADMOB 07:41 → 4TH 08:16 → UNDODISOB 10-16 12:40
PROVIDERS: ADMIT Family Medicine; ATTEND Family Medicine
DX: S00.03XA Contusion of scalp, initial encounter (principal); R42 Dizziness and giddiness; E11.9 Type 2 diabetes mellitus without complications; I10 Essential (primary) hypertension; F32.9 Major depressive disorder, single episode, unspecified; R26.81 Unsteadiness on feet; K21.9 Gastro-esophageal reflux disease without esophagitis; K44.9 Diaphragmatic hernia without obstruction or gangrene; W18.12XA Fall from or off toilet with subsequent striking against object, initial encounter; Y92.012 Bathroom of single-family (private) house as the place of occurrence of the external cause; Z79.4 Long term (current) use of insulin; Z79.899 Other long term (current) drug therapy
CPT/HCPCS: 36415; 70450; 70490; 71010; 80053; 80306; 80320; 81000; 82962; 83605; 85025; 85610; 85730; 87040; 96360; 96361; G0378

== ENCOUNTER 2017-11-10 15:27 | Emergency (ER) | payer MEDICARE ==
[~2017-11-10] VITALS: Ht 170.2 cm; Wt 124.7 kg
[~2017-11-10 15:27] MED LIST changes: +ACHD5005 PO; -HYDR-3812 PO
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
[2017-11-10 16:03] LABS: BILIRUBIN,URINE NEGATIVE (NEGATIVE); CLARITY,URINE CLEAR; COLOR,URINE YELLOW; GLUCOSE, URINE (UA) 4+ (NEGATIVE); KETONES,URINE NEGATIVE (NEGATIVE); LEUKOCYTE ESTERASE ,URINE 3+ (NEGATIVE); NITRITE,URINE NEGATIVE (NEGATIVE); PH,URINE 6.5 (5-9); PROTEIN,URINE NEGATIVE (NEGATIVE); UROBILINOGEN,URINE NORMAL (NORMAL)
[2017-11-10 16:11] LABS: BACTERIA,URINE FEW /HPF; SQUAMOUS EPITHELIAL CELL,UR 0-2 /HPF; WBC,URINE 25-50 /HPF
[2017-11-10] MEDS ORDERED: IOHEXOL 350 MG/ML 100 ML (OMNIPAQUE 350) VIAL IV ONE (16:30)
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
[2017-11-10 17:55] LABS: HEMOGLOBIN 14.4 G/DL (11.5-16.0); MEAN PLATELET VOLUME 9.8 FL (7.4-10.4); RED BLOOD COUNT 4.8 10^6/uL (4.35-5.85); RED CELL DISTRIBUTION WIDTH 13.6 % (10.0-14.5); WHITE BLOOD COUNT 8.7 10^3/uL (4.3-11.0)
[2017-11-10 18:49] LABS: ALANINE AMINOTRANSFERASE 18 U/L (0-55); ALBUMIN 3.5 GM/DL (3.2-4.5); ALKALINE PHOSPHATASE 107 U/L (40-136); BILIRUBIN,DIRECT < 0.1 MG/DL (0.0-0.3); BILIRUBIN,INDIRECT 0.2 MG/DL; BILIRUBIN,TOTAL 0.3 MG/DL (0.1-1.0); BUN/CREATININE RATIO 16; CALCIUM 8.3 MG/DL (8.5-10.1); CARBON DIOXIDE 25 MMOL/L (21-32); CHLORIDE 93 MMOL/L (98-107); CREATININE SERUM 0.76 MG/DL (0.60-1.30); GFR ESTIMATED > 60; GLUCOSE 100 MG/DL (70-105); TOTAL PROTEIN 7.6 GM/DL (6.4-8.2)
[2017-11-10] MEDS ORDERED: fentaNYL INJECTION 100 MCG/2 ML AMP IVP STA (19:18)
[2017-11-10] MEDS ORDERED: NS IV 500 ML 500 ML IV ONE (19:18)
[2017-11-10 19:36] LABS: POTASSIUM 4.1 MMOL/L (3.6-5.0); SODIUM 138 MMOL/L (135-145)
[2017-11-10] MEDS ORDERED: CEFDINIR 300 MG (OMNICEF) CAP PO ONE (19:45)
[2017-11-10] MEDS ORDERED: RX-HYDROCODONE/APAP 5/325 MG #4 TAB PK PO PRN (19:45)
[2017-11-10] MEDS ORDERED: CEFD300C3 PO (19:50)
[2017-11-10] MEDS ORDERED: TRAM50TA2 PO (19:50)
[2017-11-10 20:20] VITALS: BP 140/90
== END 2017-11-10 20:20 | disposition home or self-care (01) ==
LOC: EDUNIT# 15:27 → ER 15:28
DX: S40.022A Contusion of left upper arm, initial encounter (principal); N39.0 Urinary tract infection, site not specified; I10 Essential (primary) hypertension; K21.9 Gastro-esophageal reflux disease without esophagitis; E11.9 Type 2 diabetes mellitus without complications; F41.9 Anxiety disorder, unspecified; Z87.19 Personal history of other diseases of the digestive system; Z79.4 Long term (current) use of insulin; Z87.891 Personal history of nicotine dependence; Z87.59 Personal history of other complications of pregnancy, childbirth and the puerperium; Z90.710 Acquired absence of both cervix and uterus; V47.5XXA Car driver injured in collision with fixed or stationary object in traffic accident, initial encounter
CPT/HCPCS: 36415; 70450; 71045; 71260; 72125; 74177; 80048; 80076; 80320; 81000; 84703; 85027; 87077; 87088; 87186; 96361; 96374

== ENCOUNTER 2017-11-25 19:42 | Observation (INO) | payer MEDICARE ==
[~2017-11-25] VITALS: Ht 165.1 cm; Wt 123.4 kg
[~2017-11-25 19:42] MED LIST changes: +CEFD300C3 PO
[2017-11-25] MEDS ORDERED: cefTRIAXone 1 GM (ROCEPHIN) VIAL IV STA (19:52)
[2017-11-25] MEDS ORDERED: LACTATED RINGERS 1,000 ML IV ONE (19:52)
[2017-11-25] MEDS ORDERED: RT-ALBUTEROL/IPRATROPIUM 3 ML (DUONEB) VIAL INH ONE (20:00)
--- NOTE | 2017-11-25 20:17 | ED Respiratory ---
General Stated Complaint: POSS PNEUMONIA Source: patient, spouse Exam Limitations: no limitations History of Present Illness Date Seen by Provider: Nov 25, 2017 Time Seen by Provider: 19:46 Initial Comments Patient presents to ER by private conveyance with chief complaint that she was at urgent care because the past couple days she's had increasing chills, fevers , cough, productive sputum. She's never had pneumonia does not have any lung disease and does not smoke. She denies any cardiac syndromes but does have some chest pain she said started after yesterday when she was a home and she tripped and fell and broke the door to her bedroom in half hit her chest against the door. She says it hurts to take deep breaths. No coronary history. She's not been on antibiotics or steroids recently. Her cough is productive she has no rashes nausea or vomiting or diarrhea. She says her is just getting over pneumonia a week or 2 ago. When she fell she didn't strike her head on the top and still has some pain there as well as loss consciousness she thinks for about a minute or so. She has not had any nausea or vomiting after the fall. Allergies and Home Medications Allergies Coded Allergies: Sulfa (Sulfonamide Antibiotics) (Verified Allergy, Unknown, 08/26/14) morphine (Verified Adverse Reaction, Mild, NAUSEA, 05/19/16) Home Medications Acetaminophen 500 Mg Tablet, 1,000 MG PO Q6H PRN for PAIN-MILD/FEVER for 30 Days Prescribed by: REJI ROY on 08/19/17 1041 Bupropion HCl 150 Mg Tab.er.24h, 450 MG PO DAILY, (Reported) LAST FILLED #90 07-06-17 TAKES 3 (150MG) TABLETS Cefdinir 300 Mg Capsule, 300 MG PO BID, #14 Ref 0 Prescribed by: PAUL LIRA on 11/10/17 1950 Escitalopram Oxalate 20 Mg Tablet, 20 MG PO DAILY, (Reported) Estradiol 0.5 Mg Tablet, 0.5 MG PO DAILY, (Reported) LAST FILLED #90 05-10-17 Glucosamine HCl/Chondr Bentley A Na 1 Each Tablet, 1 TAB PO DAILY, (Reported) Insulin Aspart 300 Units/3 Ml Solution, 12 UNITS SQ TIDAC for 60 Days, (Reported ) Lactobacillus Acidophilus 1 Each Capsule, 1 CAP PO DAILY, (Reported) Multivitamin 1 Each Tablet, 1 TAB PO DAILY, (Reported) Pantoprazole Sodium 40 Mg Tablet.dr, 40 MG PO DAILY, (Reported) Tramadol HCl 50 Mg Tablet, 50 MG PO Q6H PRN for PAIN, #20 Ref 0 Prescribed by: PAUL LIRA on 11/10/171949 Vit C/E/Zn/Coppr/Lutein/Zeaxan 1 Each Capsule, 1 TAB PO BID, (Reported) Constitutional: chills, diaphoresis, fever, malaise EENTM: No ear discharge, No ear pain Respiratory: cough, phlegm, short of breath, wheezing Cardiovascular: see HPI, chest pain, No edema, No Hx of Intervention, syncope, No vascular heart diseas Gastrointestinal: No abdominal pain, No constipation, No diarrhea, No nausea, No vomiting Genitourinary: No discharge, No dysuria Musculoskeletal: No back pain, No joint pain Skin: No pruritus, No rash Past Ztkofmn-Ezmoxh-Vkmrok Hx Patient Social History Alcohol Beverage of Choice: Whiskey Type Used: Cigarettes Former Smoker, Quit: Feb 18, 2016 2nd Hand Smoke Exposure: Yes Recent Foreign Travel: No Contact w/Someone Who Travel: No Recent Hopitalizations: Yes Immunizations Up To Date Tetanus Booster (TDap): Less than 5yrs PED Vaccines UTD: No Date of Pneumonia Vaccine: Aug 13, 2015 Date of Influenza Vaccine: Jul 31, 2017 Seasonal Allergies Seasonal Allergies: Yes Surgeries History of Surgeries: Yes Surgeries: Abdominal, Section, Hysterectomy Respiratory History of Respiratory Disorde: No Cardiovascular History of Cardiac Disorders: Yes Cardiac Disorders: 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 Neurological History of Neurological Disord: No 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 System Hx 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 Disorders: No Sexually Transmitted Disease: No Genitourinary History of Genitourinary Disor: No Gastrointestinal History of Gastrointestinal Di: Yes Gastrointestinal Disorders: Gastroesophageal Reflux, Hiatal Hernia Musculoskeletal History of Musculoskeletal Dis: Yes Musculoskeletal Disorders: Arthritis Endocrine History of Endocrine Disorders: Yes Endocrine Disorders: Diabetes, Insulin dep HEENT History of HEENT Disorders: Yes HEENT Disorders: Cataract Cancer History of Cancer: No Psychosocial History of Psychiatric Problem: Yes Behavioral Health Disorders: Anxiety Integumentary History of Skin or Integumenta: No Skin/Integumentary Disorders: Psoriasis Blood Transfusions History of Blood Disorders: No Adverse Reaction to a Blood Tr: No Family Medical History Significant Family History: No Pertinent Family Hx Family Medial History: AIDS Alcoholism Arthritis Asthma Cataracts Coronary thrombosis Diabetes mellitus Drug abuse Glaucoma Psychosocial problem Respiratory disorder No Family History of: Picayune's disease Alzheimer's disease Aphasia Cancer of mouth Cardiovascular disease Colon cancer Completed stroke Congenital disease Congenital heart disease Cystic fibrosis Deafness or hearing loss Dementia Dysphasia Fibrocystic disease of breast Gastroenteritis Headache disorder Hypercholesterolemia 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 Infertility Kidney disease Myocardial infarction Neoplasm Not obtainable due to adoption Osteoporosis Parkinson's disease Prostate cancer Seizure disorder Severe allergy Thyroid disease Tuberculosis Visual disorder Physical Exam Vital Signs Vital Sign - Last 12Hours 11/25/17 20:21 Pulse Ox 94 O2 Delivery Nasal Cannula O2 Flow Rate 4.00 Capillary Refill : General Appearance: WD/WN, moderate distress Eyes: Bilateral Eye Normal Inspection, Bilateral Eye PERRL, Bilateral Eye EOMI HEENT: PERRL/EOMI, TMs normal, pharynx normal Neck: non-tender, full range of motion, supple, normal inspection Respiratory: accessory muscle use, rales, rhonchi, other (chest is tenderness to palpation along the midline and left of the sternum) Cardiovascular: normal peripheral pulses, regular rate, rhythm, no edema Gastrointestinal: normal bowel sounds, non tender, soft Extremities: no pedal edema, normal capillary refill Neurologic/Psychiatric: alert, oriented x 3 Skin: normal color, warm/dry Focused Exam Evaluation Lactate Level Laboratory Tests 11/25/17 20:36: Lactic Acid Level 1.20 Lactic Acid Level Laboratory Tests Test 11/25/17 20:36 Lactic Acid Level 1.20 MMOL/L (0.50-2.00) Progress/Results/Core Measures Suspected Sepsis SIRS Temperature: Pulse: Respiratory Rate: Laboratory Tests 11/25/17 20:10: White Blood Count 6.0 Blood Pressure / Mean: Laboratory Tests 11/25/17 20:36: Lactic Acid Level 1.20 Laboratory Tests 11/25/17 20:10: Creatinine 1.03, INR Comment 1.0, Platelet Count 157, Total Bilirubin 0.3 Results/Orders Lab Results Laboratory Tests Test 11/25/17 20:10 11/25/17 20:34 11/25/17 20:36 11/25/17 21:02 Range/Units White Blood Count 6.0 4.3-11.0 10^3/uL Red Blood Count 4.71 4.35-5.85 10^6/uL Hemoglobin 14.0 11.5-16.0 G/DL Hematocrit 41 35-52 % Mean Corpuscular Volume 88 80-99 FL Mean Corpuscular Hemoglobin 30 25-34 PG Mean Corpuscular Hemoglobin Concent 34 32-36 G/DL Red Cell Distribution Width 14.0 10.0-14.5 % Platelet Count 157 130-400 10^3/uL Mean Platelet Volume 9.0 7.4-10.4 FL Neutrophils (%) (Auto) 60 42-75 % Lymphocytes (%) (Auto) 19 12-44 % Monocytes (%) (Auto) 13 H 0-12 % Eosinophils (%) (Auto) 8 0-10 % Basophils (%) (Auto) 1 0-10 % Neutrophils # (Auto) 3.6 1.8-7.8 X 10^3 Lymphocytes # (Auto) 1.1 1.0-4.0 X 10^3 Monocytes # (Auto) 0.8 0.0-1.0 X 10^3 Eosinophils # (Auto) 0.5 H 0.0-0.3 10^3/uL Basophils # (Auto) 0.0 0.0-0.1 10^3/uL Prothrombin Time 12.8 12.2-14.7 SEC INR Comment 1.0 0.8-1.4 Activated Partial Thromboplast Time 23 L 24-35 SEC Sodium Level 135 135-145 MMOL/L Potassium Level 4.4 3.6-5.0 MMOL/L Chloride Level 99 98-107 MMOL/L Carbon Dioxide Level 23 21-32 MMOL/L Anion Gap 13 5-14 MMOL/L Blood Urea Nitrogen 14 7-18 MG/DL Creatinine 1.03 0.60-1.30 MG/DL Estimat Glomerular Filtration Rate 54 BUN/Creatinine Ratio 14 Glucose Level 239 H 70-105 MG/DL Calcium Level 9.0 8.5-10.1 MG/DL Total Bilirubin 0.3 0.1-1.0 MG/DL Aspartate Amino Transf (AST/SGOT) 33 5-34 U/L Alanine Aminotransferase (ALT/SGPT) 21 0-55 U/L Alkaline Phosphatase 117 40-136 U/L B-Type Natriuretic Peptide 39.7 <100.0 PG/ML Total Protein 6.9 6.4-8.2 GM/DL Albumin 3.7 3.2-4.5 GM/DL Glucometer 200 H 70-110 MG/DL Lactic Acid Level 1.20 0.50-2.00 MMOL/L Urine Color YELLOW Urine Clarity CLEAR Urine pH 5 5-9 Urine Specific Hammond 1.010 L 1.016-1.022 Urine Protein NEGATIVE NEGATIVE Urine Glucose (UA) 4+ H NEGATIVE Urine Ketones NEGATIVE NEGATIVE Urine Nitrite NEGATIVE NEGATIVE Urine Bilirubin NEGATIVE NEGATIVE Urine Urobilinogen NORMAL NORMAL MG/DL Urine Leukocyte Esterase NEGATIVE NEGATIVE Urine RBC (Auto) NEGATIVE NEGATIVE Urine RBC NONE /HPF Urine WBC RARE /HPF Urine Squamous Epithelial Cells 2-5 /HPF Urine Crystals NONE /LPF Urine Bacteria TRACE /HPF Urine Casts NONE /LPF Urine Mucus NEGATIVE /LPF Urine Culture Indicated NO Test 11/25/17 21:21 Range/Units Blood Gas Puncture Site RIGHT RADIAL Blood Gas Patient Temperature 99.9 Arterial Blood pH 7.40 7.37-7.43 Arterial Blood Partial Pressure CO2 47 H 35-45 MMHG Arterial Blood Partial Pressure O2 95 H 79-93 MMHG Arterial Blood HCO3 28 H 23-27 MMOL/L Arterial Blood Total CO2 29.2 21.0-31.0 MMOL/L Arterial Blood Oxygen Saturation 98 94-100 % Arterial Blood Base Excess 3.4 H -2.5-2.5 MMOL/L Pavan Test YES-POS Blood Gas Ventilator Setting NO Blood Gas Inspired Oxygen 3L Micro Results Microbiology 11/25/17 Influenza Types A,B Antigen (LAXMI) - Final, Complete My Orders Orders - MARIO GARCIA Cbc With Automated Diff (11/25/17 19:52) Comprehensive Metabolic Panel (11/25/17 19:52) Lactic Acid Analyzer (11/25/17 19:52) Blood Culture (11/25/17 19:52) Sputum Culture (11/25/17 19:52) Ua Culture If Indicated (11/25/17 19:52) Protime With Inr (11/25/17 19:52) Partial Thromboplastin Time (11/25/17 19:52) Chest 1 View, Ap/Pa Only (11/25/17 19:52) O2 (11/25/17 19:52) Saline Lock/Iv-Start (11/25/17 19:52) Saline Lock/Iv-Start (11/25/17 19:52) Vital Signs Adult Sepsis Patie Q1H (11/25/17 19:52) Ceftriaxone Injection (Rocephin Injectio (11/25/17 19:52) Remove Rings In Anticipation O (11/25/17 19:52) Influenza A And B Antigens (11/25/17 19:52) Saline Lock/Iv-Start (11/25/17 19:52) Lactated Ringers (Lr 1000 Ml Iv Solution (11/25/17 19:52) Albuterol/Ipra Inhalation Soln (Duoneb I (11/25/17 20:00) Svn Sm Volume Nebulizer Rt-Rfs (11/25/17 19:52) Arterial Blood Gas (11/25/17 19:52) Ct Head/Cervical Spine Wo (11/25/17 20:21) BNP (11/25/17 20:28) Ns (Ivpb) (Sodium Chloride 0.9% Ivpb Bag (11/25/17 20:35) Medications Given in ED Current Medications Medications Dose Ordered Sig/Minal Route Start Time Stop Time Status Last Admin Dose Admin Albuterol/ Ipratropium 3 ml ONCE ONCE INH 11/25/17 20:00 11/25/17 20:01 DC 11/25/17 20:21 3 ML Lactated Ringer's 1,000 ml @ 0 mls/hr Q0M ONCE IV 11/25/17 19:52 11/25/17 19:54 DC 11/25/17 20:40 999 MLS/HR Sodium Chloride 50 ml @ ud STK-MED ONCE .ROUTE 11/25/17 20:35 11/25/17 20:36 DC 11/25/17 20:40 100 MLS/HR Vital Signs/I&O Vital Sign - Last 12Hours 11/25/17 20:21 Pulse Ox 94 O2 Delivery Nasal Cannula O2 Flow Rate 4.00 Capillary Refill : Progress Note #1: Time: 20:17 Progress Note Pneumonia possible flu sepsis with tachycardia and her hypoxia at 86% on room air. She is improved on oxygenation. She does not wear oxygen at home. Progress Note #2: Time: 21:54 Progress Note Wheezing is gone after her breathing treatment. She still having a lot of rhonchus rails. Chest x-ray is not demonstrating any definite infiltrates. Influenza is negative. White count is not there. She is having a productive cough and chest pain which is probably related to her fall however a pneumonia would possibly explain her fall. Diagnostic Imaging Diagonstic Imaging: Xray Plain Films/CT/US/NM/MRI: chest Comments NAME: JANEEN MAC [facility] REC#: [id number] PHYSICIAN: MARIO GARCIA MD CC: PAUL MANNING MD; MARIO GARCIA Page 1 of 1 RADIOLOGY REPORT VIA [facility], [facility]. [place], [place] CC: PAUL MANNING MD; MARIO GARCIA Page 1 of 1 RADIOLOGY REPORT NAME: JANEEN MAC [facility] REC#: [id number] PT STATUS: REG ER : 1955 PHYSICIAN: MARIO GARCIA MD ADMIT DATE: 11/25/17/ER Signed Date of Exam: 11/25/17 CHEST 1 VIEW, AP/PA ONLY INDICATION: Lower respiratory infection Portable chest 9:19 PM Heart size and pulmonary vascularity are normal. Lungs are clear. There are no effusions or pneumothoraces. IMPRESSION: Negative chest Dictated by: Dictated on workstation # [id number] Dict: 11/25/172118 Trans: 11/25/172123 Interpreted by: PAUL MANNING MD Electronically signed by: PAUL MANNING MD 11/25/172123 Reviewed: Reviewed by Me Diagonstic Imaging: CT Plain Films/CT/US/NM/MRI: c-spine, head Comments NAME: JANEEN MAC [facility] REC#: [id number] PHYSICIAN: MARIO GARCIA MD CC: PAUL MANNING MD; MARIO GARCIA Page 1 of 1 RADIOLOGY REPORT VIA [facility], [place], [place] CC: PAUL MANNING MD; MARIO GARCIA Page 1 of 1 RADIOLOGY REPORT NAME: JANEEN MAC [facility] REC#: [id number] PT STATUS: REG ER : 1955 PHYSICIAN: MARIO GARCIA MD ADMIT DATE: 11/25/17/ER Signed Date of Exam: 11/25/17 CT HEAD/CERVICAL SPINE WO PROCEDURE: CT head and CT cervical spine without contrast. TECHNIQUE: Multiple contiguous axial images were obtained through the brain and cervical spine without the use of intravenous contrast. Sagittal and coronal reformations through the cervical spine were then performed. INDICATION: Head injury from a fall CT head: The ventricles are normal in size, shape and position. There are no masses or hemorrhages. There are no extra-axial fluid collections. IMPRESSION: Negative CT head CT cervical spine: Vertebral body height and alignment appear normal. Disc spaces well maintained. There are no fractures. IMPRESSION: Negative CT cervical spine Dictated by: Dictated on workstation # [id number] Dict: 11/25/172112 Trans: 11/25/172123 Interpreted by: PAUL MANNING MD Electronically signed by: PAUL MANNING MD 11/25/172123 Reviewed: Reviewed by Me Departure Communication (Admissions) Time/Spoke to Admitting Phy: 22:[address] Galvez discussed the case and likelihood COPD exacerbation with possible pneumonia and because of her hypoxia we would put her in observation status. Impression Impression: Primary Impression: Pneumonia Qualified Codes: J18.9 - Pneumonia, unspecified organism Additional Impression: COPD with exacerbation Disposition: ADMITTED INPATIENT Condition: Stable (ERASED) Admissions Decision to Admit Reason: Admit from ER (General) Decision to Admit/Date: Nov 25, 2017 Time/Decision to Admit Time: 22:05 Departure-Patient Inst. Referrals: REJI ROY MD (PCP/Family) Primary Care Physician Copy Copies To 1: AHMET CHRIS TITUS J Nov 25, 2017 20:16
[2017-11-25 20:23] LABS: BASOPHILS % (AUTO) 1 % (0-10); EOSINOPHILS # (AUTO) 0.5 10^3/uL (0.0-0.3); EOSINOPHILS % (AUTO) 8 % (0-10); HEMATOCRIT 41 % (35-52); LYMPHOCYTES # (AUTO) 1.1 X 10^3 (1.0-4.0); LYMPHOCYTES % (AUTO) 19 % (12-44); MEAN CORPUSCULAR HEMOGLOBIN 30 PG (25-34); MEAN CORPUSCULAR HGB CONC 34 G/DL (32-36); MEAN CORPUSCULAR VOLUME 88 FL (80-99); MONOCYTES # (AUTO) 0.8 X 10^3 (0.0-1.0); MONOCYTES % (AUTO) 13 % (0-12); NEUTROPHILS # (AUTO) 3.6 X 10^3 (1.8-7.8); NEUTROPHILS % (AUTO) 60 % (42-75); PLATELET COUNT 157 10^3/uL (130-400); RED BLOOD COUNT 4.71 10^6/uL (4.35-5.85)
[2017-11-25 20:35] LABS: PROTHROMBIN TIME PATIENT 12.8 SEC (12.2-14.7)
[2017-11-25] MEDS ORDERED: NS (IVPB) 50 ML ONE (20:35)
[2017-11-25 20:42] LABS: ALBUMIN 3.7 GM/DL (3.2-4.5); BILIRUBIN,TOTAL 0.3 MG/DL (0.1-1.0); CREATININE SERUM 1.03 MG/DL (0.60-1.30); POTASSIUM 4.4 MMOL/L (3.6-5.0); TOTAL PROTEIN 6.9 GM/DL (6.4-8.2)
[2017-11-25 21:18] LABS: BILIRUBIN,URINE NEGATIVE (NEGATIVE); CLARITY,URINE CLEAR; COLOR,URINE YELLOW; GLUCOSE, URINE (UA) 4+ (NEGATIVE); KETONES,URINE NEGATIVE (NEGATIVE); LEUKOCYTE ESTERASE ,URINE NEGATIVE (NEGATIVE); NITRITE,URINE NEGATIVE (NEGATIVE); PH,URINE 5 (5-9); PROTEIN,URINE NEGATIVE (NEGATIVE); UROBILINOGEN,URINE NORMAL (NORMAL)
--- NOTE | 2017-11-25 21:20 | Diagnostic Imaging Report ---
PROCEDURE: CT head and CT cervical spine without contrast. TECHNIQUE: Multiple contiguous axial images were obtained through the brain and cervical spine without the use of intravenous contrast. Sagittal and coronal reformations through the cervical spine were then performed. INDICATION: Head injury from a fall CT head: The ventricles are normal in size, shape and position. There are no masses or hemorrhages. There are no extra-axial fluid collections. IMPRESSION: Negative CT head CT cervical spine: Vertebral body height and alignment appear normal. Disc spaces well maintained. There are no fractures. IMPRESSION: Negative CT cervical spine Dictated by: Dictated on workstation # [id number]
--- NOTE | 2017-11-25 21:23 | Diagnostic Imaging Report ---
INDICATION: Lower respiratory infection Portable chest 9:19 PM Heart size and pulmonary vascularity are normal. Lungs are clear. There are no effusions or pneumothoraces. IMPRESSION: Negative chest Dictated by: Dictated on workstation # [id number]
[2017-11-25 21:27] LABS: ABG BASE EXCESS 3.4 MMOL/L (-2.5-2.5); ABG OXYGEN SATURATION 98 % (94-100); ABG PCO2 47 MMHG (35-45); ABG PO2 95 MMHG (79-93); ABG TCO2 29.2 MMOL/L (21.0-31.0)
[2017-11-25 21:28] LABS: BACTERIA,URINE TRACE /HPF; WBC,URINE RARE /HPF
[2017-11-25 21:28] LABS: ALLENS TEST YES-POS; INSPIRED O2 3L; PATIENT TEMP 99.9; VENTILATOR NO
[2017-11-25] MEDS ORDERED: PROMETHAZINE 25 MG (PHENERGAN) TAB PO ONE (22:15)
[2017-11-25] MEDS ORDERED: methylPREDNISolone 125 MG (Solu-MEDROL) VIAL IVP ONE (22:15)
[2017-11-25 23:00] VITALS: BP 175/71
[2017-11-25] MEDS ORDERED: NS (IVPB) 250 ML ONE (23:17)
[2017-11-25] MEDS ORDERED: AZITHROMYCIN 500 MG (ZITHROMAX) VIAL ONE (23:17)
[2017-11-26] MEDS ORDERED: SERT50TA2 PO (00:03)
[2017-11-26] MEDS ORDERED: ALPR0.5T PO (00:03)
[2017-11-26] MEDS ORDERED: LOSA25TA21 PO (00:03)
[2017-11-26] MEDS ORDERED: inSUlin DETERMIR 1 UNIT/0.01 ML (LEVEMIR) CHARGE PER UNIT SQ ONE (00:20)
[2017-11-26] MEDS: NS IV 1000 ML 1,000 ML IV SCH ×2 (00:25→08:07)
[2017-11-26] MEDS: ACETAMINOPHEN 500 MG TAB (TYLENOL) PO PRN ×2 (00:26→08:26)
[2017-11-26 00:29] VITALS: BP 175/71
[2017-11-26] MEDS ORDERED: AZITHROMYCIN INJECTION 500 MG in NS (IVPB) 250 ML IV ONE (00:30)
[2017-11-26] MEDS ORDERED: RT-ALBUTEROL/IPRATROPIUM 3 ML (DUONEB) VIAL INH PRN (00:45)
[2017-11-26] MEDS: RT-ALBUTEROL/IPRATROPIUM 3 ML (DUONEB) VIAL INH SCH ×3 (02:05→11:17)
[2017-11-26] MEDS ORDERED: BENZONATATE 100 MG (TESSALON) CAPSULE PO ONE (02:18)
[2017-11-26] MEDS: BENZONATATE 100 MG (TESSALON) CAPSULE PO SCH ×2 (02:24→08:07)
[2017-11-26 04:00] VITALS: BP 148/76
[2017-11-26] MEDS: inSUlin (REGULAR) HUMAN 1 UNIT/0.01 ML (CHARGE PER UNIT) SC SCH ×2 (06:15→11:52)
[2017-11-26 08:00] VITALS: BP 162/84
[2017-11-26] MEDS ORDERED: AZITHROMYCIN 250 MG/NS 250 ML IVPB IV SCH ×2 (09:00)
[2017-11-26] MEDS ORDERED: AZITHROMYCIN 250 MG TAB (ZITHROMAX) PO SCH (09:00)
[2017-11-26] MEDS ORDERED: methylPREDNISolone 125 MG (Solu-MEDROL) VIAL IVP SCH (10:00)
--- NOTE | 2017-11-26 11:35 | Short Stay Summary ---
History of Present Illness History of Present Illness Reason for visit/HPI 62yo woman presented to ER after being evaluated at [facility] [place] [facility] [place] for shortness of breath. Patient states she was treated for pneumonia a few weeks ago and has steadily declined. She was admitted for observation and to receive IV steorids and antibiotics. The pateint has a long history of alcoholism, but she tells me today she has not drank since her last hospitalization. She also has a history of falls at home but has repeatedly and adamantly refused to go to a usp facility. Date of Admission Nov 25, 2017 at 10:15 pm Date of Discharge November 26, 2017 Time Seen by Provider: 10:00 Attending Physician Reji Mendes MD Admitting Physician Reji Mendes MD Consult Allergies and Home Medications Allergies Coded Allergies: Sulfa (Sulfonamide Antibiotics) (Verified Allergy, Unknown, 08/26/14) morphine (Verified Adverse Reaction, Mild, NAUSEA, 05/19/16) Home Medications Acetaminophen 500 Mg Tablet, 1,000 MG PO Q6H PRN for PAIN-MILD/FEVER for 30 Days Prescribed by: REJI MENDES on 08/19/17 1041 Albuterol Sulfate 18 Gm Hfa.aer.ad, 2 PUFF IH Q4H PRN for SHORTNESS OF BREATH, # 1 Ref 0 Prescribed by: SHANE GALVAN on 12/01/17 1105 Bupropion HCl 150 Mg Tab.er.24h, 450 MG PO DAILY, (Reported) TAKES 3 (150MG) TABLETS Chlorhexidine Gluconate 473 Ml Mouthwash, MM UD PRN for MOUTH SORES, (Reported) Dapagliflozin Propanediol 10 Mg Tablet, 10 MG PO DAILY, (Reported) Glucosamine HCl/Chondr Bentley A Na 1 Each Tablet, 1 TAB PO DAILY, (Reported) Hydroxyzine Pamoate 25 Mg Capsule, 25 MG PO BID PRN for anxiety, #14 Ref 0 Prescribed by: SHANE GALVAN on 12/01/17 1058 Insulin Aspart 300 Units/3 Ml Solution, 12 UNITS SQ TIDAC, (Reported) Insulin Degludec 100 Unit/1 Ml Insuln.pen, 60 UNITS SC HS, (Reported) Lactobacillus Acidophilus 1 Each Capsule, 1 CAP PO BID, (Reported) Losartan Potassium 50 Mg Tablet, 50 MG PO DAILY, #30 Ref 0 Prescribed by: SHANE GALVAN on 12/01/17 1058 Multivitamin 1 Each Tablet, 1 TAB PO DAILY, (Reported) Pantoprazole Sodium 40 Mg Tablet.dr, 40 MG PO DAILY, (Reported) LAST FILLED #90 07-22-17 Prednisone 10 Mg Tab, 0 PO UD, #10 Ref 0 Take 4 tabs (40mg) daily, decrease by 1 tab (10mg) daily. Prescribed by: SHANE GALVAN on 12/01/17 1058 Vit C/E/Zn/Coppr/Lutein/Zeaxan 1 Each Capsule, 1 TAB PO BID, (Reported) Past Nocfowy-Blrgag-Yfzqyy Hx Patient Social History Alcohol Use: Denies Use Alcohol Beverage of Choice: Whiskey Recreational Drug Use: No (denies) Smoking Status: Former Smoker Former Smoker, Quit: Feb 18, 2016 Type Used: Cigarettes 2nd Hand Smoke Exposure: Yes Physical Abuse Screen: No Sexual Abuse: No Recent Foreign Travel: No Contact w/other who traveled: No Recent Hopitalizations: Yes Recent Infectious Disease Expo: No Immunizations Up To Date Tetanus Booster (TDap): Less than 5yrs Pediatric: No Date of Pneumonia Vaccine: Aug 31, 2017 Date of Influenza Vaccine: Jul 31, 2017 Seasonal Allergies Seasonal Allergies: Yes Surgeries Yes Abdominal, Section, Hysterectomy Respiratory No Cardiovascular Yes 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 Neurological No 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 System Hx 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 Disorders: No Sexually Transmitted Disease: No Genitourinary No Gastrointestinal Yes Gastroesophageal Reflux, Hiatal Hernia Musculoskeletal Yes Arthritis Endocrine History of Endocrine Disorders: Yes Endocrine Disorders: Diabetes, Insulin dep HEENT History of HEENT Disorders: Yes HEENT Disorders: Cataract Cancer No Psychosocial History of Psychiatric Problem: Yes Behavioral Health Disorders: Anxiety Integumentary History of Skin or Integumenta: No Skin/Integumentary Disorders: Psoriasis Blood Transfusions History of Blood Disorders: No Adverse Reaction to a Blood Tr: No Family Medical History Significant Family History: No Pertinent Family Hx Family Hx: AIDS Alcoholism Arthritis Asthma Cataracts Coronary thrombosis Diabetes mellitus Drug abuse Glaucoma Psychosocial problem Respiratory disorder No Family History of: [place]'s disease Alzheimer's disease Aphasia Cancer of mouth Cardiovascular disease Colon cancer Completed stroke Congenital disease Congenital heart disease Cystic fibrosis Deafness or hearing loss Dementia Dysphasia Fibrocystic disease of breast Gastroenteritis Headache disorder Hypercholesterolemia 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 Infertility Kidney disease Myocardial infarction Neoplasm Not obtainable due to adoption Osteoporosis Parkinson's disease Prostate cancer Seizure disorder Severe allergy Thyroid disease Tuberculosis Visual disorder Constitutional: see HPI All Other Systems Reviewed Negative Unless Noted: Yes Physical Exam Vital Signs Vital Sign - Last 12Hours 11/25/17 19:55 Temp 99.9 Pulse 81 Resp 25 B/P (MAP) 167/91 (116) Pulse Ox 94 O2 Delivery Nasal Cannula O2 Flow Rate 4.00 FiO2 94 Capillary Refill : Less Than 3 Seconds General Appearance: No Apparent Distress, WD/WN, Obese HEENT: PERRL/EOMI, Normal ENT Inspection, Pharynx Normal Neck: Full Range of Motion, Normal Inspection, Non Tender, Supple, Carotid Bruit Respiratory: Chest Non Tender, Lungs Clear, Normal Breath Sounds, No Accessory Muscle Use, No Respiratory Distress Cardiovascular: Regular Rate, Rhythm, No Edema, No Gallop, No JVD, No Murmur, Normal Peripheral Pulses Gastrointestinal: Normal Bowel Sounds, No Organomegaly, No Pulsatile Mass, Non Tender, Soft Extremity: Normal Capillary Refill, Normal Inspection, Normal Range of Motion, Non Tender, No Calf Tenderness, No Pedal Edema Neurologic/Psychiatric: Alert, Oriented x3, No Motor/Sensory Deficits, Normal Mood/Affect Skin: Normal Color, Warm/Dry Clinical Quality Measures DVT/VTE Risk/Contraindication: Risk Factor Score Per Nursin RFS Level Per Nursing on Admit: 4+=Very High Short Stay Diagnosis Discharge Diagnosis-Short Stay Admission Diagnosis: ACUTE BACTERIAL EXACERBATION OF CHRONIC BRONCHITIS OBESITY FREQUENT FALLS Final Discharge Diagnosis: ACUTE BACTERIAL EXACERBATION OF CHRONIC BRONCHITIS OBESITY FREQUENT FALLS Conclusion Labs Laboratory Tests 11/25/17 20:10: White Blood Count 6.0, Red Blood Count 4.71, Hemoglobin 14.0, Hematocrit 41, Mean Corpuscular Volume 88, Mean Corpuscular Hemoglobin 30, Mean Corpuscular Hemoglobin Concent 34, Red Cell Distribution Width 14.0, Platelet Count 157, Mean Platelet Volume 9.0, Neutrophils (%) (Auto) 60, Lymphocytes (%) (Auto) 19, Monocytes (%) (Auto) 13H, Eosinophils (%) (Auto) 8, Basophils (%) (Auto) 1, Neutrophils # (Auto) 3.6, Lymphocytes # (Auto) 1.1, Monocytes # (Auto) 0.8, Eosinophils # (Auto) 0.5H, Basophils # (Auto) 0.0, Prothrombin Time 12.8, INR Comment 1.0, Activated Partial Thromboplast Time 23L, Sodium Level 135, Potassium Level 4.4, Chloride Level 99, Carbon Dioxide Level 23, Anion Gap 13, Blood Urea Nitrogen 14, Creatinine 1.03, Estimat Glomerular Filtration Rate 54, BUN/Creatinine Ratio 14, Glucose Level 239H, Calcium Level 9.0, Total Bilirubin 0.3, Aspartate Amino Transf (AST/SGOT) 33, Alanine Aminotransferase (ALT/SGPT) 21, Alkaline Phosphatase 117, B-Type Natriuretic Peptide 39.7, Total Protein 6.9 , Albumin 3.7 11/25/17 20:34: Glucometer 200H 11/25/17 20:36: Lactic Acid Level 1.20 11/25/17 21:02: Urine Color YELLOW, Urine Clarity CLEAR, Urine pH 5, Urine Specific Kohler 1.010L, Urine Protein NEGATIVE, Urine Glucose (UA) 4+H, Urine Ketones NEGATIVE, Urine Nitrite NEGATIVE, Urine Bilirubin NEGATIVE, Urine Urobilinogen NORMAL, Urine Leukocyte Esterase NEGATIVE, Urine RBC (Auto) NEGATIVE, Urine RBC NONE, Urine WBC RARE, Urine Squamous Epithelial Cells 2-5, Urine Crystals NONE, Urine Bacteria TRACE, Urine Casts NONE, Urine Mucus NEGATIVE, Urine Culture Indicated NO 11/25/17 21:21: Blood Gas Puncture Site RIGHT RADIAL, Blood Gas Patient Temperature 99.9, Arterial Blood pH 7.40, Arterial Blood Partial Pressure CO2 47H, Arterial Blood Partial Pressure O2 95H, Arterial Blood HCO3 28H, Arterial Blood Total CO2 29.2 , Arterial Blood Oxygen Saturation 98, Arterial Blood Base Excess 3.4H, Pavan Test YES-POS, Blood Gas Ventilator Setting NO, Blood Gas Inspired Oxygen 3L 11/25/17 23:52: Glucometer 203H 11/26/17 05:42: Glucometer 310H Microbiology 11/25/17 Influenza Types A,B Antigen (LAXMI) - Final, Complete Conclusion/Plan [facility] was observed overnight and initially required oxygen. She had improved substantially with administration of the IV steroids and no longer had an oxygen requirement. THere was concern voiced by her regarding her repeated falls, but there was nothing we could do regarding this as [facility] has declined our attempts to arrange for usp placement. We arranged for close follow up and made sure that she had her antibiotics and steroids to take at home. We will see her the week after discharge, certainly sooner if she needs us. Copy Copies To 1: REJI MENDES MD, JULIE A MD Nov 26, 2017 11:35
[2017-11-26] MEDS ORDERED: PRD20T PO (11:39)
[2017-11-26] MEDS ORDERED: CEFP200T2 PO (11:39)
[2017-11-26] MEDS ORDERED: AZIT250T12 PO (11:39)
--- NOTE | 2017-11-26 11:43 | Discharge Instructions ---
Discharge [facility] Discharge Medications New, Converted or Re-Newed RX: Transmitted to Pharmacy New Medications: Cefpodoxime Proxetil (Cefpodoxime Proxetil) 200 Mg Tablet 200 MG PO BID for 10 Days, #20 TAB 0 Refills Prednisone (Prednisone) 20 Mg Tab 20 MG PO DAILY, #11 TAB 0 Refills Take 3 tabs(60mg)daily, decrease by 1/2 tab(10mg)daily. Azithromycin (Azithromycin) 250 Mg Tablet 250 MG PO DAILY for 4 Days, #4 TAB 0 Refills Continued Medications: Acetaminophen (Acetaminophen) 500 Mg Tablet 1000 MG PO Q6H PRN for PAIN-MILD/FEVER for 30 Days, TAB Alprazolam (Xanax) 0.5 Mg Tablet 0.5 MG PO HS Bupropion HCl (Bupropion Xl) 150 Mg Tab.er.24h 450 MG PO DAILY, TAB LAST FILLED #90 07-06-17 TAKES 3 (150MG) TABLETS Escitalopram Oxalate (Escitalopram Oxalate) 20 Mg Tablet 20 MG PO DAILY, TAB Glucosamine HCl/Chondr Bentley A Na (Osteo Bi-Flex Caplet) 1 Each Tablet 1 TAB PO DAILY, TAB Insulin Aspart (Novolog Flexpen) 300 Units/3 Ml Solution 12 UNITS SQ TIDAC for 60 Days, EA Lactobacillus Acidophilus (Probiotic) 1 Each Capsule 1 CAP PO DAILY, CAP Losartan Potassium (Losartan Potassium) 25 Mg Tablet 25 MG PO DAILY Multivitamin (Daily Multiple Vitamin) 1 Each Tablet 1 TAB PO DAILY, TAB Pantoprazole Sodium (Pantoprazole Sodium) 40 Mg Tablet.dr 40 MG PO DAILY, TAB Sertraline HCl (Zoloft) 50 Mg Tablet 50 MG PO HS Tramadol HCl (Tramadol HCl) 50 Mg Tablet 50 MG PO Q6H PRN for PAIN, #20 TAB 0 Refills Vit C/E/Zn/Coppr/Lutein/Zeaxan (Preservision Areds 2 Softgel) 1 Each Capsule 1 TAB PO BID, CAP Discontinued Medications: Cefdinir (Cefdinir) 300 Mg Capsule 300 MG PO BID, #14 CAP 0 Refills Patient Instructions Goal/Follow Up Appt: we will call you on Tuesday with an appointment with Dr Mendes Patient Instructions: Please stop the cefidinir (if you still have it) and take the Cefpodoxime and Azithromycin Please follow the instructions for the steroid taper You Home health nurse should see you on Tuesday Return to The Hospital For: increasing shortness of breath or fever Activity & Diet Discharge Diet: ADA Diet Activity as Tolerated: Yes Copy Copies To 1: REJI MENDES MD, JULIE A MD Nov 26, 2017 11:43 am
[2017-11-26 12:00] VITALS: BP 145/62
[2017-11-26] MEDS ORDERED: inSUlin ASPART (NovoLOG) 1 UNIT/0.01 ML (CHARGE PER UNIT) SC NR (12:09)
[2017-11-26] MEDS ORDERED: cefTRIAXone 1,000 MG/D5W 50 ML IVPB IV SCH ×2 (20:00)
[2017-11-26] MEDS ORDERED: inSUlin DETERMIR 1 UNIT/0.01 ML (LEVEMIR) CHARGE PER UNIT SQ SCH (21:00)
--- NOTE | 2017-11-28 15:16 | Physician Query-Final Dx ---
DALE SPENCER 11/28/17 1516: Final Diagnosis Give Final Diagnosis Please give Final Diagnosis KAYLA GUTIERREZ MD 12/08/17 1212: Final Diagnosis Give Final Diagnosis ACUTE BACTERIAL EXACERBATION OF CHRONIC BRONCHITIS OBESITY FREQUENT FALLS DALE SPENCER Nov 28, 2017 15:16 KAYLA GUTIERREZ MD Dec 08, 2017 12:12
[2017-12-01] MEDS ORDERED: LOSA50TA36 PO (10:58)
[2017-12-01] MEDS ORDERED: PRD10T PO (10:58)
[2017-12-01] MEDS ORDERED: HYDR-3781 PO (10:58)
[2017-12-01] MEDS ORDERED: ALBU18HF2 IH (11:05)
== END 2017-11-26 11:39 | disposition home health service (06) ==
LOC: EDUNIT# 19:42 → ER 19:43 → UNDOADMOB 22:15 → 4TH 22:15 → UNDODISOB 11-26 13:52
PROVIDERS: ADMIT Family Medicine; ATTEND Family Medicine
DX: J44.0 Chronic obstructive pulmonary disease with (acute) lower respiratory infection (principal); J44.1 Chronic obstructive pulmonary disease with (acute) exacerbation; E11.9 Type 2 diabetes mellitus without complications; F41.9 Anxiety disorder, unspecified; Z79.4 Long term (current) use of insulin; K21.9 Gastro-esophageal reflux disease without esophagitis; K44.9 Diaphragmatic hernia without obstruction or gangrene; I10 Essential (primary) hypertension; Z87.891 Personal history of nicotine dependence; E66.9 Obesity, unspecified; Z91.81 History of falling; Z68.42 Body mass index [BMI] 45.0-49.9, adult
CPT/HCPCS: 36415; 70450; 71045; 72125; 80053; 81000; 82805; 82962; 83605; 83880; 85025; 85610; 85730; 87040; 87070; 87077; 87186; 87205; 87804; 94640; 94664; 94760; 96374; G0378

== ENCOUNTER 2017-11-28 13:49 | Inpatient (IN) | payer MEDICARE ==
[2017-11-28] VITALS (17 sets, daily range): BP systolic 123–154; BP diastolic 40–82
[~2017-11-28] VITALS: Ht 165.1 cm; Wt 114.9 kg
[~2017-11-28 13:49] MED LIST changes: +ALPR0.5T PO; +AZIT250T12 PO; +CEFP200T2 PO; +LOSA25TA21 PO; +PRD20T PO; +SERT50TA2 PO
[2017-11-28] MEDS ORDERED: RT-ALBUTEROL/IPRATROPIUM 3 ML (DUONEB) VIAL ONE ×2 (14:05→18:13)
[2017-11-28] MEDS ORDERED: RT-ALBUTEROL SULF 2.5 MG/3 ML PRE-MIX VIAL ONE (14:06)
[2017-11-28] MEDS ORDERED: RT-IPRATROPIUM (ATROVENT) 0.5MG/2.5ML AMP IH ONE ×2 (14:06→14:15)
[2017-11-28] MEDS ORDERED: RT-ALBUTEROL SULF 2.5 MG/3 ML PRE-MIX VIAL INH STA (14:07)
[2017-11-28] MEDS ORDERED: NS IV 1000 ML 1,000 ML IV ONE (14:08)
[2017-11-28 14:41] LABS: BASOPHILS % (AUTO) 0 % (0-10); EOSINOPHILS % (AUTO) 0 % (0-10); HEMATOCRIT 41 % (35-52); HEMOGLOBIN 13.8 G/DL (11.5-16.0); LYMPHOCYTES # (AUTO) 0.9 X 10^3 (1.0-4.0); LYMPHOCYTES % (AUTO) 11 % (12-44); MEAN CORPUSCULAR HEMOGLOBIN 30 PG (25-34); MEAN CORPUSCULAR HGB CONC 34 G/DL (32-36); MEAN CORPUSCULAR VOLUME 88 FL (80-99); MEAN PLATELET VOLUME 8.8 FL (7.4-10.4); MONOCYTES # (AUTO) 0.7 X 10^3 (0.0-1.0); MONOCYTES % (AUTO) 8 % (0-12); NEUTROPHILS # (AUTO) 6.5 X 10^3 (1.8-7.8); NEUTROPHILS % (AUTO) 81 % (42-75); PLATELET COUNT 170 10^3/uL (130-400); RED BLOOD COUNT 4.66 10^6/uL (4.35-5.85)
[2017-11-28 14:45] LABS: ABG BASE EXCESS 2.9 MMOL/L (-2.5-2.5); ABG OXYGEN SATURATION 100 % (94-100); ABG PCO2 58 MMHG (35-45); ABG PO2 182 MMHG (79-93); ABG TCO2 30.4 MMOL/L (21.0-31.0)
[2017-11-28 14:48] LABS: ABG PH 7.31 (7.37-7.43); ALLENS TEST YES-POS; INSPIRED O2 6; PATIENT TEMP 98.5; VENTILATOR NO
[2017-11-28 14:58] LABS: PROTHROMBIN TIME PATIENT 13.5 SEC (12.2-14.7)
--- NOTE | 2017-11-28 15:00 | Diagnostic Imaging Report ---
INDICATION: Hypoxia. TIME OF EXAM: 2:45 PM. COMPARISON: 11/25/2017. FINDINGS: The heart is enlarged. There are central congestive changes identified. There appears to be some infiltrate or atelectasis at the right base. No effusion is seen. There is no pneumothorax. IMPRESSION: Congestive changes with cardiomegaly and right basilar infiltrate or atelectasis. Dictated by: Dictated on workstation # [id number]
[2017-11-28 15:08] LABS: ALANINE AMINOTRANSFERASE 27 U/L (0-55); ALBUMIN 3.6 GM/DL (3.2-4.5); ALKALINE PHOSPHATASE 111 U/L (40-136); BILIRUBIN,TOTAL 0.3 MG/DL (0.1-1.0); BUN/CREATININE RATIO 29; CALCIUM 8.6 MG/DL (8.5-10.1); CARBON DIOXIDE 28 MMOL/L (21-32); CHLORIDE 98 MMOL/L (98-107); CREATININE SERUM 0.76 MG/DL (0.60-1.30); GFR ESTIMATED > 60; GLUCOSE 158 MG/DL (70-105); POTASSIUM 4.1 MMOL/L (3.6-5.0); SODIUM 137 MMOL/L (135-145); TOTAL PROTEIN 6.8 GM/DL (6.4-8.2)
[2017-11-28] MEDS ORDERED: ONDANSETRON 4 MG/2 ML (SDV) Z0FRAN IVP ONE (15:15)
[2017-11-28] MEDS ORDERED: methylPREDNISolone 125 MG (Solu-MEDROL) VIAL IVP ONE (15:15)
[2017-11-28 15:29] LABS: BILIRUBIN,URINE NEGATIVE (NEGATIVE); CLARITY,URINE CLEAR; COLOR,URINE YELLOW; GLUCOSE, URINE (UA) 4+ (NEGATIVE); KETONES,URINE 3+ (NEGATIVE); LEUKOCYTE ESTERASE ,URINE NEGATIVE (NEGATIVE); NITRITE,URINE NEGATIVE (NEGATIVE); PH,URINE 6 (5-9); PROTEIN,URINE 2+ (NEGATIVE); UROBILINOGEN,URINE NORMAL (NORMAL)
[2017-11-28 15:48] LABS: BACTERIA,URINE NEGATIVE /HPF; RBC,URINE RARE /HPF
[2017-11-28 15:56] LABS: AMPHETAMINE SCREEN, URINE NEGATIVE (NEGATIVE); BARBITURATE SCREEN URINE NEGATIVE (NEGATIVE); BENZODIAZEPINES SCREEN URINE POSITIVE (NEGATIVE); CANNABINOID SCREEN, URINE NEGATIVE (NEGATIVE); COCAINE SCREEN URINE NEGATIVE (NEGATIVE); METHADONE STAT NEGATIVE (NEGATIVE); METHAMPHETAMINE SCREEN URINE S NEGATIVE (NEGATIVE); OPIATE SCREEN URINE NEGATIVE (NEGATIVE); OXYCODONE STAT NEGATIVE (NEGATIVE); PROPOXYPHENE STAT NEGATIVE (NEGATIVE); TRICYCLIC ANTIDEPRESSANTS SCRE POSITIVE (NEGATIVE)
[2017-11-28] MEDS ORDERED: PIPERACILLIN SODIUM/TAZOBACTAM 4.5 GM in D5W 100 ML IVPB 100 ML IV ONE (16:00)
--- NOTE | 2017-11-28 16:00 | Diagnostic Imaging Report ---
PROCEDURE: CT head and CT cervical spine without contrast. TECHNIQUE: Multiple contiguous axial images were obtained through the brain and cervical spine without the use of intravenous contrast. Sagittal and coronal reformations through the cervical spine were then performed. INDICATION: Found down with hypoxemia. CT head: Comparison is made to study of 11/25/2017. FINDINGS: Ventricles and sulci remain prominent; however, there is no evidence of hemorrhage or evolving infarct in the brain. There is no abnormal mass effect or shift of midline structures. There has been development of fluid within the maxillary and sphenoid sinuses. There is no evidence of calvarial fracture. IMPRESSION: 1. Acute maxillary and sphenoid sinusitis which is a new development since 11/25/2017. 2. Otherwise, there is no CT evidence of acute intracranial abnormality. CT cervical spine: Study is limited by motion. Comparison is made to study of 11/25/2017. FINDINGS: Straightening of cervical lordosis is similar to previous study. Vertebral body heights and disc spaces are maintained. There is moderate narrowing of the C5-C6 disc space with associated endplate spurring. Degenerative facet arthropathy is also similar to previous exam. IMPRESSION: 1. Loss of cervical lordosis may represent muscle spasm or positioning. This is stable when compared to previous exam. There is no CT evidence of acute cervical spinal abnormality noted on the limited study. 2. Enlargement of left lobe of the thyroid gland is again noted. Dictated by: Dictated on workstation # [id number]
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
[2017-11-28 18:48] LABS: ABG BASE EXCESS 0.5 MMOL/L (-2.5-2.5); ABG OXYGEN SATURATION 96 % (94-100); ABG PCO2 59 MMHG (35-45); ABG PO2 86 MMHG (79-93); ABG TCO2 28.4 MMOL/L (21.0-31.0)
[2017-11-28 18:54] LABS: ABG PH 7.27 (7.37-7.43)
[2017-11-28 18:55] LABS: ALLENS TEST YES-POS; INSPIRED O2 40%; PATIENT TEMP 98.4; VENTILATOR NO
[2017-11-28] MEDS ORDERED: RT-ALBUTEROL SULF 2.5 MG/3 ML PRE-MIX VIAL INH PRN (20:15)
[2017-11-28 20:43] LABS: ABG BASE EXCESS 0.6 MMOL/L (-2.5-2.5); ABG OXYGEN SATURATION 97 % (94-100); ABG PCO2 51 MMHG (35-45); ABG PO2 83 MMHG (79-93)
[2017-11-28 20:44] LABS: ABG PH 7.32 (7.37-7.43); ALLENS TEST YES-POS; INSPIRED O2 40%; VENTILATOR NO
[2017-11-28] MEDS ORDERED: AZITHROMYCIN INJECTION 500 MG in NS (IVPB) 250 ML IV SCH ×2 (21:45→22:00)
[2017-11-28] MEDS ORDERED: ONDANSETRON 4 MG/2 ML (SDV) Z0FRAN IVP PRN (21:45)
[2017-11-28] MEDS ORDERED: PIPERACILLIN/TAZO 4.5 GM VIAL (ZOSYN) IV ONE (21:45)
[2017-11-28] MEDS ORDERED: D5W 100 ML IVPB 100 ML IV ONE (21:46)
[2017-11-28] MEDS ORDERED: NS (IVPB) 250 ML ONE (21:47)
[2017-11-28] MEDS ORDERED: AZITHROMYCIN 500 MG (ZITHROMAX) VIAL ONE (21:47)
[2017-11-28] MEDS: NS IV 1000 ML 1,000 ML IV SCH (21:54)
[2017-11-28] MEDS: methylPREDNISolone 40 MG/ML (Solu-MEDROL) VIAL IV SCH ×2 (21:58→23:44)
[2017-11-28] MEDS: RT-ALBUTEROL/IPRATROPIUM 3 ML (DUONEB) VIAL INH SCH (22:47)
[2017-11-28] MEDS: PIPERACILLIN SODIUM/TAZOBACTAM 4.5 GM in D5W 100 ML IVPB 100 ML IV SCH (23:44)
[2017-11-29] VITALS (15 sets, daily range): BP systolic 133–190; BP diastolic 69–100
[2017-11-29] MEDS: inSUlin (REGULAR) HUMAN 1 UNIT/0.01 ML (CHARGE PER UNIT) SC SCH ×5 (00:03→21:20)
[2017-11-29] MEDS: RT-ALBUTEROL/IPRATROPIUM 3 ML (DUONEB) VIAL INH SCH ×6 (02:21→23:43)
[2017-11-29 05:04] LABS: BASOPHILS % (AUTO) 0 % (0-10); EOSINOPHILS % (AUTO) 0 % (0-10); HEMATOCRIT 39 % (35-52); HEMOGLOBIN 13.2 G/DL (11.5-16.0); LYMPHOCYTES # (AUTO) 0.7 X 10^3 (1.0-4.0); LYMPHOCYTES % (AUTO) 9 % (12-44); MEAN CORPUSCULAR HEMOGLOBIN 30 PG (25-34); MEAN CORPUSCULAR HGB CONC 34 G/DL (32-36); MEAN CORPUSCULAR VOLUME 88 FL (80-99); MEAN PLATELET VOLUME 8.5 FL (7.4-10.4); MONOCYTES # (AUTO) 0.2 X 10^3 (0.0-1.0); MONOCYTES % (AUTO) 2 % (0-12); NEUTROPHILS # (AUTO) 6.3 X 10^3 (1.8-7.8); NEUTROPHILS % (AUTO) 88 % (42-75); PLATELET COUNT 174 10^3/uL (130-400); RED BLOOD COUNT 4.45 10^6/uL (4.35-5.85); RED CELL DISTRIBUTION WIDTH 13.6 % (10.0-14.5); WHITE BLOOD COUNT 7.1 10^3/uL (4.3-11.0)
[2017-11-29 05:26] LABS: ALANINE AMINOTRANSFERASE 25 U/L (0-55); ALBUMIN 3.4 GM/DL (3.2-4.5); ALKALINE PHOSPHATASE 97 U/L (40-136); BILIRUBIN,TOTAL 0.3 MG/DL (0.1-1.0); BUN/CREATININE RATIO 29; CALCIUM 8.2 MG/DL (8.5-10.1); CARBON DIOXIDE 21 MMOL/L (21-32); CHLORIDE 102 MMOL/L (98-107); CREATININE SERUM 0.75 MG/DL (0.60-1.30); GFR ESTIMATED > 60; GLUCOSE 167 MG/DL (70-105); MAGNESIUM 2.3 MG/DL (1.8-2.4); PHOSPHORUS 4.3 MG/DL (2.3-4.7); POTASSIUM 4.5 MMOL/L (3.6-5.0); SODIUM 135 MMOL/L (135-145); TOTAL PROTEIN 6.2 GM/DL (6.4-8.2)
[2017-11-29] MEDS: NS IV 1000 ML 1,000 ML IV SCH (05:46)
[2017-11-29] MEDS ORDERED: POTASSIUM CL 10MEQ/50ML IVPB 50 ML IV SCH (06:00)
[2017-11-29] MEDS ORDERED: inSUlin (REGULAR) HUMAN 1 UNIT/0.01 ML (CHARGE PER UNIT) SC SCH (06:00)
[2017-11-29] MEDS ORDERED: MAGNESIUM 1 GM/100 ML IVPB 100 ML IV SCH (06:00)
[2017-11-29] MEDS ORDERED: KCL 20 MEQ TAB (K-DUR) PO SCH (06:00)
--- NOTE | 2017-11-29 06:04 | Pulmonary Consultation ---
History of Present Illness History of Present Illness Date of Consultation 11/29/17 05:59 Time Seen by Provider: 05:59 Date of Admission History of Present Illness 62yo with hx of COPD and quit smoking 1 yr ago presented secondary to worsening SOB and productive cough of yellow sputum. Pt was found to be hypoxic with So02 of 80%. She was also very lethargic and wheezy upon admission. She did receive a DuoNeb in ED which improved her SOB. UDS was positive for Benzo's and TCA. PT denies taking any of these meds. SHe does not have oxygen at home. SHe required noninvasive ventilation upon admission. Allergies and Home Medications Allergies Coded Allergies: Sulfa (Sulfonamide Antibiotics) (Verified Allergy, Unknown, 08/26/14) morphine (Verified Adverse Reaction, Mild, NAUSEA, 05/19/16) Home Medications Acetaminophen 500 Mg Tablet, 1,000 MG PO Q6H PRN for PAIN-MILD/FEVER for 30 Days Prescribed by: REJI ROY on 08/19/17 1041 Alprazolam 0.5 Mg Tablet, 0.5 MG PO HS, (Reported) Azithromycin 250 Mg Tablet, 250 MG PO DAILY for 4 Days, #4 Ref 0 Prescribed by: KAYLA GUTIERREZ on 11/26/17 1139 Bupropion HCl 150 Mg Tab.er.24h, 450 MG PO DAILY, (Reported) LAST FILLED #90 07-06-17 TAKES 3 (150MG) TABLETS Cefpodoxime Proxetil 200 Mg Tablet, 200 MG PO BID for 10 Days, #20 Ref 0 Prescribed by: KAYLA GUTIERREZ on 11/26/17 1139 Escitalopram Oxalate 20 Mg Tablet, 20 MG PO DAILY, (Reported) Glucosamine HCl/Chondr Bentley A Na 1 Each Tablet, 1 TAB PO DAILY, (Reported) Insulin Aspart 300 Units/3 Ml Solution, 12 UNITS SQ TIDAC for 60 Days, (Reported ) Lactobacillus Acidophilus 1 Each Capsule, 1 CAP PO DAILY, (Reported) Losartan Potassium 25 Mg Tablet, 25 MG PO DAILY, (Reported) Multivitamin 1 Each Tablet, 1 TAB PO DAILY, (Reported) Pantoprazole Sodium 40 Mg Tablet.dr, 40 MG PO DAILY, (Reported) Prednisone 20 Mg Tab, 20 MG PO DAILY, #11 Ref 0 Take 3 tabs(60mg)daily, decrease by 1/2 tab(10mg)daily. Prescribed by: KAYLA GUTIERREZ on 11/26/17 1139 Sertraline HCl 50 Mg Tablet, 50 MG PO HS, (Reported) Tramadol HCl 50 Mg Tablet, 50 MG PO Q6H PRN for PAIN, #20 Ref 0 Prescribed by: PAUL LIRA on 11/10/17 1950 Vit C/E/Zn/Coppr/Lutein/Zeaxan 1 Each Capsule, 1 TAB PO BID, (Reported) Past Kyjvkqh-Bntjbm-Sbwwen Hx Patient Social History Alcohol Use: Denies Use Number of Drinks Today: GG Alcohol Beverage of Choice: Whiskey Recreational Drug Use: No Smoking Status: Former Smoker Type Used: Cigarettes Former Smoker, Quit: Feb 18, 2016 2nd Hand Smoke Exposure: Yes Recent Foreign Travel: No Contact w/Someone Who Travel: No Recent Infectious Disease Expo: No Recent Hopitalizations: Yes Immunizations Up To Date Tetanus Booster (TDap): Less than 5yrs PED Vaccines UTD: No Date of Pneumonia Vaccine: Aug 31, 2017 Date of Influenza Vaccine: Jul 31, 2017 Seasonal Allergies Seasonal Allergies: Yes Surgeries History of Surgeries: Yes Surgeries: Abdominal, Section, Hysterectomy Respiratory History of Respiratory Disorde: Yes Respiratory Disorders: Pneumonia, COPD Cardiovascular History of Cardiac Disorders: Yes Cardiac Disorders: 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 Neurological History of Neurological Disord: No 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 System : No Hx 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 Disorders: No Sexually Transmitted Disease: No Genitourinary History of Genitourinary Disor: No Gastrointestinal History of Gastrointestinal Di: Yes Gastrointestinal Disorders: Gastroesophageal Reflux, Hiatal Hernia Musculoskeletal History of Musculoskeletal Dis: Yes Musculoskeletal Disorders: Arthritis Endocrine History of Endocrine Disorders: Yes Endocrine Disorders: Diabetes, Insulin dep HEENT History of HEENT Disorders: Yes HEENT Disorders: Cataract Cancer History of Cancer: No Psychosocial History of Psychiatric Problem: Yes Behavioral Health Disorders: Anxiety Integumentary History of Skin or Integumenta: No Skin/Integumentary Disorders: Psoriasis Blood Transfusions History of Blood Disorders: No Adverse Reaction to a Blood Tr: No Family Medical History Significant Family History: No Pertinent Family Hx Family Medial History: AIDS Alcoholism Arthritis Asthma Cataracts Coronary thrombosis Diabetes mellitus Drug abuse Glaucoma Psychosocial problem Respiratory disorder No Family History of: [place]'s disease Alzheimer's disease Aphasia Cancer of mouth Cardiovascular disease Colon cancer Completed stroke Congenital disease Congenital heart disease Cystic fibrosis Deafness or hearing loss Dementia Dysphasia Fibrocystic disease of breast Gastroenteritis Headache disorder Hypercholesterolemia 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 Infertility Kidney disease Myocardial infarction Neoplasm Not obtainable due to adoption Osteoporosis Parkinson's disease Prostate cancer Seizure disorder Severe allergy Thyroid disease Tuberculosis Visual disorder Review of Systems Time Seen by Provider: 06:30 Constitutional: Fever, Sweats, Weakness, Malaise Eyes: No: Pain, Vision change, Conjunctivae inflammation, Eyelid inflammation, Other, Redness ENT: No: Ear pain, Ear discharge, Nose pain, Nose discharge, Nose congestion, Mouth pain, Mouth swelling, Throat pain, Throat swelling, Other Respiratory: Cough, Shortness of breath, Wheezing, Sputum Exam Exam Vital Signs Date Time Temp Pulse Resp B/P (MAP) Pulse Ox O2 Delivery O2 Flow Rate FiO2 11/29/17 05:00 74 17 150/75 (100) 94 Nasal Cannula 4.00 11/29/17 04:00 93 Nasal Cannula 4.00 11/29/17 04:00 78 31 138/80 (99) 94 Nasal Cannula 4.00 11/29/17 03:05 Nasal Cannula 4.00 11/29/17 03:00 78 24 139/69 (92) 93 NIV Bilevel 35.00 11/29/17 02:21 93 Nasal Cannula 4.00 11/29/17 02:00 80 19 133/69 (90) 93 NIV Bilevel 35.00 11/29/17 01:00 81 17 150/71 (97) 94 NIV Bilevel 35.00 11/29/17 01:00 81 11/29/17 00:04 85 25 94 35.00 11/29/17 00:00 98.4 11/29/17 00:00 84 13 147/74 (98) 95 NIV Bilevel 35.00 11/29/17 00:00 94 NIV Bilevel 35 11/28/17 23:30 84 15 141/73 (95) 95 NIV Bilevel 35.00 11/28/17 23:00 84 25 135/71 (92) 95 NIV Bilevel 35.00 11/28/17 22:47 81 24 96 35.00 11/28/17 22:30 82 19 142/73 (96) 96 NIV Bilevel 40.00 11/28/17 22:00 84 14 146/77 (100) 95 NIV Bilevel 40.00 11/28/17 21:30 81 33 143/79 (100) 96 NIV Bilevel 40.00 11/28/17 21:00 81 21 140/65 (90) 96 NIV Bilevel 40.00 11/28/17 20:38 80 27 96 40.00 11/28/17 20:30 81 16 123/42 (69) 96 NIV Bilevel 40.00 11/28/17 20:00 82 20 123/41 (68) 94 NIV Bilevel 40.00 11/28/17 19:45 80 15 126/40 (68) 95 NIV Bilevel 40.00 11/28/17 19:45 95 NIV Bilevel 40 11/28/17 19:39 96.4 80 14 126/40 (68) 95 NIV Bilevel 40.00 11/28/17 19:15 80 16 139/42 (74) 95 NIV Bilevel 40.00 11/28/17 19:00 82 22 139/43 (75) 95 NIV Bilevel 40.00 11/28/17 19:00 82 11/28/17 18:38 78 18 96 40.00 11/28/17 18:00 80 16 126/54 (78) 97 NIV Bilevel 40.00 11/28/17 17:52 81 11/28/17 17:38 83 16 130/69 (89) 99 NIV Bilevel 40.00 11/28/17 17:30 97 NIV Bilevel 40.00 11/28/17 17:20 98.4 86 18 98 NIV Bilevel 11/28/17 16:23 93 21 94 40.00 11/28/17 14:25 99 Nasal Cannula 5.00 11/28/17 13:49 98.5 90 16 150/90 (110) 95 Nasal Cannula 6.00 I & O 11/29/17 07:00 Intake Total 0 ml Output Total 1600 ml Balance -1600 ml General Appearance: No Apparent Distress, WD/WN HEENT: PERRL/EOMI, TMs Normal, Normal ENT Inspection, Other (oropharynx very dry) Neck: Normal Inspection, Non Tender Respiratory: No Accessory Muscle Use, No Respiratory Distress, No Crackles, Decreased Breath Sounds Cardiovascular: Regular Rate, Rhythm, No Edema, No Murmur Capillary Refill: Less Than 3 Seconds Extremity: Normal Inspection, No Pedal Edema Neurologic/Psychiatric: No Motor/Sensory Deficits, Other (confused with waxing and waning levels of alertness, improving somewhat with time. Moves all 4 extremities equally. Responds to voice and answer some questions. Has some spontaneous speech and movement.) Skin: Normal Color, Warm/Dry Results Lab Laboratory Tests 11/28/17 14:25 11/29/17 04:52 Assessment/Plan Assessment/Plan Acute on chronic respiratory failure - Doubt pneumonia - No fever, No leukocytosis. Pt was on 7 days of Omnicef prior to discharge. -Pt improved with noninvasive ventilation -I suspect pt took too many sedating medications. - is going to bring her medications in. She is not sure what she takes at home -80mg of IV lasix x 1 then D/C -I'll give 80meq of Kdur x 1 today with lasix. COPDAE -SVNs Morbid obesity with probable OHS -Pt will benefit from noninvasive ventilation. Will order if repeat ABG still shows high C02. Pt is doing much better. I am going to transfer her to 4th floor. She is awake and alert. She states SOB is much improved. 255 Clinical Quality Measures DVT/VTE Risk/Contraindication: Risk Factor Score Per Nursin RFS Level Per Nursing on Admit: 4+=Very High GANGA JEAN DO Nov 29, 2017 06:04
[2017-11-29 06:25] LABS: ABG BASE EXCESS -0.1 MMOL/L (-2.5-2.5); ABG OXYGEN SATURATION 91 % (94-100); ABG PCO2 45 MMHG (35-45); ABG PH 7.36 (7.37-7.43); ABG PO2 61 MMHG (79-93); ABG TCO2 26.2 MMOL/L (21.0-31.0)
[2017-11-29 06:26] LABS: ALLENS TEST YES-POS; INSPIRED O2 ROOM AIR; PATIENT TEMP 97.6; VENTILATOR NO
[2017-11-29] MEDS: PIPERACILLIN SODIUM/TAZOBACTAM 4.5 GM in D5W 100 ML IVPB 100 ML IV SCH (06:30)
[2017-11-29] MEDS ORDERED: FUROSEMIDE 40 MG/4 ML INJ (LASIX) IVP NR (06:30)
[2017-11-29] MEDS: methylPREDNISolone 40 MG/ML (Solu-MEDROL) VIAL IV SCH (06:30)
--- NOTE | 2017-11-29 08:12 | Diagnostic Imaging Report ---
INDICATION: Dyspnea. Time of exam: 4:43 AM Correlation is made with prior study from one day earlier. The heart size is stable. Congestive changes have improved since yesterday. No effusion or pneumothorax is seen. There has been improved aeration to the right base. IMPRESSION: Improving congestive changes when compared with examination one day earlier. Dictated by: Dictated on workstation # [id number]
[2017-11-29] MEDS: KCL 20 MEQ TAB (K-DUR) PO SCH ×2 (08:20→18:17)
[2017-11-29] MEDS ORDERED: INSU100I32 SC (08:37)
[2017-11-29] MEDS ORDERED: ALPR0.5T7 PO (08:37)
[2017-11-29] MEDS ORDERED: DAPA10TA PO (08:37)
[2017-11-29] MEDS ORDERED: PSEU120T75 PO (08:37)
[2017-11-29] MEDS ORDERED: CHLO473M MM (08:37)
--- NOTE | 2017-11-29 09:29 | Occupational Therapy Eval ---
OT Evaluation-General/PLF Medical Diagnosis Admission Date Nov 28, 2017 at 16:25 Medical Diagnosis: resp failure with hypoxia, COPD exac, AMS Onset Date: Nov 28, 2017 Therapy Diagnosis Therapy Diagnosis: decr self care, decr funct mobility Height/Weight Height (Feet): 5 Height (Inches): 5.00 Weight (Pounds): 250 Weight (Ounces): 2.0 Precautions Precautions/Isolations: Contact Isolation, Fall Prevention, Standard Precautions Safety Interventions: None Referral Physician: Gustavo Referral Reason: Evaluation/Treatment Referral Comments Protocol order for new onset total care, difficulty using arms, changes in vision Medical History Pertinent Medical History: Alcoholism, Arthritis, COPD, DM, GERD, HTN, Smoking Additional Medical History Pneumonia. Hiatal hernia. cataract. Anxiety. Psoriasis. Morbid obesity Current History Pt admitted with SOA and AMS. Found on floor by home health. May be related to meds. Reviewed History: Yes ADL-Prior Level of Function ADL PLOF Comments Pt reported that she has been able to care for her basic self care needs. 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 OT Current Status Subjective Pt seen in room in ICU, up in bed, agreeable to talk to OT but not to get up to EOB. Pt reported she was not in any specific pain. Appearance Alert, cooperative Mental Status/Objective Attachments: Central Line, Hopper Catheter, Oxygen, Telemetry Current Upper Extremity ROM Grossly WFL bilat Upper Extremity Strength Grossly WFL bilat ADL-Treatment ADL-Current Pt was getting ready to be transferred to medical floor. She declined to get up to EOB and said she just wanted to rest. She has been NPO Functional [place] Measure 0=Not Assessed/NA 4=Minimal Assistance 1=Total Assistance 5=Supervision or Setup 2=Maximal Assistance 6=Modified [place] 3=Moderate Assistance 7=Complete IndependenceIRFPAI Quality Coding Scale 6 Independent with activity with or without an assistive device 5 Patient requires set up or clean up by helper. Patient completes activity by themselves 4 Supervision or touching assist (CGA). [place] provide cues , steadying assist 3 The helper provides less than half the effort to complete the activity 2 The helper provides more than half the effort to complete the activity 1 Dependent. The helper does all the effort to complete an activity 7 Patient refused to complete or attempt activity 9 The patient did not perform the activity before the current illness or injury 88 Not attempted due to Medical conditions or safety concerns Will identify specific ADL needs once she is more willing to be up and mobile. She said she was hoping to go home today. Education OT Patient Education: Purpose of tx/functional activities, Rehab process Teaching Recipient: Patient Teaching Methods: Discussion Response to Teaching: Verbalize Understanding OT Electronic Equipment Set Up Operator Goals Long-Term Goals Time Frame: Dec 02, 2017 Eating (FIM): 6 Grooming(FIM): 6 Bathing(FIM): 5 Upper Body Dressing(FIM): 6 Lower Body Dressing(FIM): 6 Toileting(FIM): 6 Toilet/Commode Transfer(FIM): 6 Shower Transfer(FIM): 6 Additional Goals: 2-Verbalize Understanding, 3-ImproveStrength/[place] 1=Demonstrate adherence to instructed precautions during ADL tasks. 2=Patient will verbalize/demonstrate understanding of assistive devices/ modifications for ADL. 3=Patient will improve strength/tolerance for activity to enable patient to perform ADL's. OT Education/Plan Problem List/Assessment Assessment: Dependent Transfers, Impaired Self-Care Skills Pt would benefit from skilled OT to increase hr independence in basic self care and to decrease caregiver burden Discharge Recommendations Plan/Recommendations: Continue POC Treatment Plan/Plan of Care Treatment,Training & Education: Yes Patient would benefit from OT for education, treatment and training to promote independence in ADL's, mobility, safety and/or upper extremity function for ADL' s. Plan of Care: ADL Retraining, Functional Mobility Treatment Duration: Dec 02, 2017 Frequency: 5 times per week Estimated Hrs Per Day: .25 hour per day Agreement: Yes Rehab Potential: Good Time/GCodes Start Time: 08:55 Stop Time: 09:05 Total Time Billed (hr/min): 10 Billed Treatment Time visit, 10 minutes evaluation low intensity REBECA CASANOVA OT Nov 29, 2017 09:29
[2017-11-29] MEDS ORDERED: LOSARTAN 25 MG (COZAAR) TAB PO SCH (10:00)
[2017-11-29] MEDS: predniSONE 10 MG TAB PO SCH (11:19)
[2017-11-29] MEDS ORDERED: ACETAMINOPHEN 500 MG TAB (TYLENOL) PO PRN ×2 (11:45→12:00)
[2017-11-29] MEDS ORDERED: ALPRAZolam 0.5 MG (XANAX) TAB PO PRN (12:00)
[2017-11-29] MEDS ORDERED: PSEUDOEPHEDRINE HCL PO PRN (12:00)
[2017-11-29] MEDS ORDERED: CHLORHEXIDINE 0.12% SOLN 15 ML (PERIDEX) UDC MM PRN (12:00)
--- NOTE | 2017-11-29 12:08 | History & Physicial ([facility]) ---
HPI History of Present Illness: 62 yo female admitted through ER after being brought in by EMS due to being found down and minimally responsive with hypoxia and wheezing. She does not recall much of what happened, but believes it may have been due to taking alprazolam. She was in the hospital this weekend and treated for COPD exacerbation (although she reports no diagnosis of COPD), and she was taking her prednisone. The prednisone made her shaky so she took alprazolam which she has not taken in a month or more. She does have a history of excess alcohol use but reports her last drink was about 4 weeks ago. She has had falls in the past and been to SNF for strengthening, but states she is doing fine currently. She required bipap last night and was acidotic, but is much improved this am. Date seen by provider: Nov 29, 2017 Time Seen by Provider: 09:39 Attending Physician Courtney Mendes MD PCP Courtney Mendes MD Consult Date of Admission Nov 28, 2017 at 4:25 pm Home Medications Home Medications Reviewed patient Home Medication Reconciliation Form Allergies Coded Allergies: Sulfa (Sulfonamide Antibiotics) (Verified Allergy, Unknown, 08/26/14) morphine (Verified Adverse Reaction, Mild, NAUSEA, 05/19/16) CDQ-Obmhlm-Etavgu Hx Patient Social History Alcohol Use: Denies Use Recreational Drug Use: No Smoking Status: Former Smoker Type Used: Cigarettes 2nd Hand Smoke Exposure: Yes Recent Foreign Travel: No Contact w/other who traveled: No Recent Hopitalizations: Yes Recent Infectious Disease Expo: No Physical Abuse Screen: No Sexual Abuse: No Immunizations Up To Date Tetanus Booster (TDap): Less than 5yrs Date of Pneumonia Vaccine: Aug 31, 2017 Date of Influenza Vaccine: Jul 31, 2017 Past Medical History IDDM HTN Tobacco USE Arthritis Alcohol Abuse Medical Noncompliance Frequent Falls Family Medical History Significant Family History: No Pertinent Family Hx Family History: AIDS Alcoholism Arthritis Asthma Cataracts Coronary thrombosis Diabetes mellitus Drug abuse Glaucoma Psychosocial problem Respiratory disorder No Family History of: Sadiq's disease Alzheimer's disease Aphasia Cancer of mouth Cardiovascular disease Colon cancer Completed stroke Congenital disease Congenital heart disease Cystic fibrosis Deafness or hearing loss Dementia Dysphasia Fibrocystic disease of breast Gastroenteritis Headache disorder Hypercholesterolemia 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 Infertility Kidney disease Myocardial infarction Neoplasm Not obtainable due to adoption Osteoporosis Parkinson's disease Prostate cancer Seizure disorder Severe allergy Thyroid disease Tuberculosis Visual disorder Review of Systems ([facility]) Constitutional: No fever EENTM: no symptoms reported Respiratory: cough, short of breath Cardiovascular: no symptoms reported Gastrointestinal: no symptoms reported Genitourinary: no symptoms reported Musculoskeletal: muscle pain Skin: no symptoms reported Psychiatric/Neurological: Anxiety Reviewed Test Results Reviewed Test Results Lab Laboratory Tests Test 11/28/17 14:25 11/28/17 14:36 11/28/17 15:20 11/28/17 18:41 Range/Units White Blood Count 8.0 4.3-11.0 10^3/uL Red Blood Count 4.66 4.35-5.85 10^6/uL Hemoglobin 13.8 11.5-16.0 G/DL Hematocrit 41 35-52 % Mean Corpuscular Volume 88 80-99 FL Mean Corpuscular Hemoglobin 30 25-34 PG Mean Corpuscular Hemoglobin Concent 34 32-36 G/DL Red Cell Distribution Width 14.0 10.0-14.5 % Platelet Count 170 130-400 10^3/uL Mean Platelet Volume 8.8 7.4-10.4 FL Neutrophils (%) (Auto) 81 H 42-75 % Lymphocytes (%) (Auto) 11 L 12-44 % Monocytes (%) (Auto) 8 0-12 % Eosinophils (%) (Auto) 0 0-10 % Basophils (%) (Auto) 0 0-10 % Neutrophils # (Auto) 6.5 1.8-7.8 X 10^3 Lymphocytes # (Auto) 0.9 L 1.0-4.0 X 10^3 Monocytes # (Auto) 0.7 0.0-1.0 X 10^3 Eosinophils # (Auto) 0.0 0.0-0.3 10^3/uL Basophils # (Auto) 0.0 0.0-0.1 10^3/uL Prothrombin Time 13.5 12.2-14.7 SEC INR Comment 1.0 0.8-1.4 Activated Partial Thromboplast Time 28 24-35 SEC Sodium Level 137 135-145 MMOL/L Potassium Level 4.1 3.6-5.0 MMOL/L Chloride Level 98 98-107 MMOL/L Carbon Dioxide Level 28 21-32 MMOL/L Anion Gap 11 5-14 MMOL/L Blood Urea Nitrogen 22 H 7-18 MG/DL Creatinine 0.76 0.60-1.30 MG/DL Estimat Glomerular Filtration Rate > 60 BUN/Creatinine Ratio 29 Glucose Level 158 H 70-105 MG/DL Lactic Acid Level 0.81 0.50-2.00 MMOL/L Calcium Level 8.6 8.5-10.1 MG/DL Total Bilirubin 0.3 0.1-1.0 MG/DL Aspartate Amino Transf (AST/SGOT) 32 5-34 U/L Alanine Aminotransferase (ALT/SGPT) 27 0-55 U/L Alkaline Phosphatase 111 40-136 U/L C-Reactive Protein High Sensitivity 5.79 H 0.00-0.50 MG/DL B-Type Natriuretic Peptide 179.5 H <100.0 PG/ML Total Protein 6.8 6.4-8.2 GM/DL Albumin 3.6 3.2-4.5 GM/DL Serum Alcohol < 10 <10 MG/DL Blood Gas Puncture Site L BRACH LEFT RADIAL Blood Gas Patient Temperature 98.5 98.4 Arterial Blood pH 7.31 *L 7.27 *L 7.37-7.43 Arterial Blood Partial Pressure CO2 58 H 59 H 35-45 MMHG Arterial Blood Partial Pressure O2 182 H 86 79-93 MMHG Arterial Blood HCO3 29 H 27 23-27 MMOL/L Arterial Blood Total CO2 30.4 28.4 21.0-31.0 MMOL/L Arterial Blood Oxygen Saturation 100 96 94-100 % Arterial Blood Base Excess 2.9 H 0.5 -2.5-2.5 MMOL/L Pavan Test YES-POS YES-POS Blood Gas Ventilator Setting NO NO Blood Gas Inspired Oxygen 6 40% Urine Color YELLOW Urine Clarity CLEAR Urine pH 6 5-9 Urine Specific [place] 1.020 1.016-1.022 Urine Protein 2+ H NEGATIVE Urine Glucose (UA) 4+ H NEGATIVE Urine Ketones 3+ H NEGATIVE Urine Nitrite NEGATIVE NEGATIVE Urine Bilirubin NEGATIVE NEGATIVE Urine Urobilinogen NORMAL NORMAL MG/DL Urine Leukocyte Esterase NEGATIVE NEGATIVE Urine RBC (Auto) NEGATIVE NEGATIVE Urine RBC RARE /HPF Urine WBC NONE /HPF Urine Squamous Epithelial Cells 2-5 /HPF Urine Crystals NONE /LPF Urine Bacteria NEGATIVE /HPF Urine Casts NONE /LPF Urine Mucus NEGATIVE /LPF Urine Culture Indicated NO Urine Opiates Screen NEGATIVE NEGATIVE Urine Oxycodone Screen NEGATIVE NEGATIVE Urine Methadone Screen NEGATIVE NEGATIVE Urine Propoxyphene Screen NEGATIVE NEGATIVE Urine Barbiturates Screen NEGATIVE NEGATIVE Ur Tricyclic Antidepressants Screen POSITIVE H NEGATIVE Urine Phencyclidine Screen NEGATIVE NEGATIVE Urine Amphetamines Screen NEGATIVE NEGATIVE Urine Methamphetamines Screen NEGATIVE NEGATIVE Urine Benzodiazepines Screen POSITIVE H NEGATIVE Urine Cocaine Screen NEGATIVE NEGATIVE Urine Cannabinoids Screen NEGATIVE NEGATIVE Test 11/28/17 20:20 11/28/17 23:59 11/29/17 04:52 11/29/17 06:22 Range/Units Blood Gas Puncture Site RIGHT RADIAL RIGHT RADIAL Blood Gas Patient Temperature 96.0 97.6 Arterial Blood pH 7.32 *L 7.36 L 7.37-7.43 Arterial Blood Partial Pressure CO2 51 H 45 35-45 MMHG Arterial Blood Partial Pressure O2 83 61 L 79-93 MMHG Arterial Blood HCO3 26 25 23-27 MMOL/L Arterial Blood Total CO2 28.0 26.2 21.0-31.0 MMOL/L Arterial Blood Oxygen Saturation 97 91 L 94-100 % Arterial Blood Base Excess 0.6 -0.1 -2.5-2.5 MMOL/L [place]avan Test YES-POS YES-POS Blood Gas Ventilator Setting NO NO Blood Gas Inspired Oxygen 40% ROOM AIR Glucometer 159 H 70-110 MG/DL White Blood Count 7.1 4.3-11.0 10^3/uL Red Blood Count 4.45 4.35-5.85 10^6/uL Hemoglobin 13.2 11.5-16.0 G/DL Hematocrit 39 35-52 % Mean Corpuscular Volume 88 80-99 FL Mean Corpuscular Hemoglobin 30 25-34 PG Mean Corpuscular Hemoglobin Concent 34 32-36 G/DL Red Cell Distribution Width 13.6 10.0-14.5 % Platelet Count 174 130-400 10^3/uL Mean Platelet Volume 8.5 7.4-10.4 FL Neutrophils (%) (Auto) 88 H 42-75 % Lymphocytes (%) (Auto) 9 L 12-44 % Monocytes (%) (Auto) 2 0-12 % Eosinophils (%) (Auto) 0 0-10 % Basophils (%) (Auto) 0 0-10 % Neutrophils # (Auto) 6.3 1.8-7.8 X 10^3 Lymphocytes # (Auto) 0.7 L 1.0-4.0 X 10^3 Monocytes # (Auto) 0.2 0.0-1.0 X 10^3 Eosinophils # (Auto) 0.0 0.0-0.3 10^3/uL Basophils # (Auto) 0.0 0.0-0.1 10^3/uL Sodium Level 135 135-145 MMOL/L Potassium Level 4.5 3.6-5.0 MMOL/L Chloride Level 102 98-107 MMOL/L Carbon Dioxide Level 21 21-32 MMOL/L Anion Gap 12 5-14 MMOL/L Blood Urea Nitrogen 22 H 7-18 MG/DL Creatinine 0.75 0.60-1.30 MG/DL Estimat Glomerular Filtration Rate > 60 BUN/Creatinine Ratio 29 Glucose Level 167 H 70-105 MG/DL Calcium Level 8.2 L 8.5-10.1 MG/DL Phosphorus Level 4.3 2.3-4.7 MG/DL Magnesium Level 2.3 1.8-2.4 MG/DL Total Bilirubin 0.3 0.1-1.0 MG/DL Aspartate Amino Transf (AST/SGOT) 22 5-34 U/L Alanine Aminotransferase (ALT/SGPT) 25 0-55 U/L Alkaline Phosphatase 97 40-136 U/L Total Protein 6.2 L 6.4-8.2 GM/DL Albumin 3.4 3.2-4.5 GM/DL Test 11/29/17 08:21 11/29/17 11:23 Range/Units Glucometer 271 H 379 H 70-110 MG/DL Radiology CXR 11/28: IMPRESSION: Congestive changes with cardiomegaly and right basilar infiltrate or atelectasis. CT head/neck 11/28: IMPRESSION: 1. Acute maxillary and sphenoid sinusitis which is a new development since . 2. Otherwise, there is no CT evidence of acute intracranial abnormality. IMPRESSION: 1. Loss of cervical lordosis may represent muscle spasm or positioning. This is stable when compared to previous exam. There is no CT evidence of acute cervical spinal abnormality noted on the limited study. 2. Enlargement of left lobe of the thyroid gland is again noted. Physical Exam-([facility]) Physical Exam Vital Signs VS - Last 72 Hours, by Label 11/28/17 11/28/17 11/28/17 11/28/17 13:49 14:25 16:23 17:20 Temp 98.5 98.4 Pulse 90 93 86 Resp 16 21 18 B/P (MAP) 150/90 (110) Pulse Ox 95 99 94 98 O2 Delivery Nasal Cannula Nasal Cannula NIV Bilevel O2 Flow Rate 6.00 5.00 40.00 11/28/17 11/28/17 11/28/17 11/28/17 17:30 17:38 17:52 18:00 Pulse 83 81 80 Resp 16 16 B/P (MAP) 130/69 (89) 126/54 (78) Pulse Ox 97 99 97 O2 Delivery NIV Bilevel NIV Bilevel NIV Bilevel O2 Flow Rate 40.00 40.00 40.00 11/28/17 11/28/17 11/28/17 11/28/17 18:38 19:00 19:00 19:15 Pulse 78 82 82 80 Resp 18 22 16 B/P (MAP) 139/43 (75) 139/42 (74) Pulse Ox 96 95 95 O2 Delivery NIV Bilevel NIV Bilevel O2 Flow Rate 40.00 40.00 40.00 11/28/17 11/28/17 11/28/17 11/28/17 19:39 19:45 19:45 20:00 Temp 96.4 Pulse 80 80 82 Resp 14 15 20 B/P (MAP) 126/40 (68) 126/40 (68) 123/41 (68) Pulse Ox 95 95 95 94 O2 Delivery NIV Bilevel NIV Bilevel NIV Bilevel NIV Bilevel O2 Flow Rate 40.00 40.00 40.00 FiO2 40 11/28/17 11/28/17 11/28/17 11/28/17 20:30 20:38 21:00 21:30 Pulse 81 80 81 81 Resp 16 27 21 33 B/P (MAP) 123/42 (69) 140/65 (90) 143/79 (100) Pulse Ox 96 96 96 96 O2 Delivery NIV Bilevel NIV Bilevel NIV Bilevel O2 Flow Rate 40.00 40.00 40.00 40.00 11/28/17 11/28/17 11/28/17 11/28/17 22:00 22:30 22:47 23:00 Pulse 84 82 81 84 Resp 14 19 24 25 B/P (MAP) 146/77 (100) 142/73 (96) 135/71 (92) Pulse Ox 95 96 96 95 O2 Delivery NIV Bilevel NIV Bilevel NIV Bilevel O2 Flow Rate 40.00 40.00 35.00 35.00 11/28/17 11/29/17 11/29/17 11/29/17 23:30 00:00 00:00 00:00 Temp 98.4 Pulse 84 84 Resp 15 13 B/P (MAP) 141/73 (95) 147/74 (98) Pulse Ox 95 94 95 O2 Delivery NIV Bilevel NIV Bilevel NIV Bilevel O2 Flow Rate 35.00 35.00 FiO2 35 11/29/17 11/29/17 11/29/17 11/29/17 00:04 01:00 01:00 02:00 Pulse 85 81 81 80 Resp 25 17 19 B/P (MAP) 150/71 (97) 133/69 (90) Pulse Ox 94 94 93 O2 Delivery NIV Bilevel NIV Bilevel O2 Flow Rate 35.00 35.00 35.00 11/29/17 11/29/17 11/29/17 11/29/17 02:21 03:00 03:05 04:00 Pulse 78 78 Resp 24 31 B/P (MAP) 139/69 (92) 138/80 (99) Pulse Ox 93 93 94 O2 Delivery Nasal Cannula NIV Bilevel Nasal Cannula Nasal Cannula O2 Flow Rate 4.00 35.00 4.00 4.00 11/29/17 11/29/17 11/29/17 11/29/17 04:00 04:00 05:00 06:00 Temp 97.6 Pulse 74 71 Resp 17 16 B/P (MAP) 150/75 (100) 153/72 (99) Pulse Ox 93 94 95 O2 Delivery Nasal Cannula Nasal Cannula Nasal Cannula O2 Flow Rate 4.00 4.00 4.00 11/29/17 11/29/17 11/29/17 11/29/17 06:23 06:32 06:39 07:00 Pulse 65 75 75 Resp 16 22 B/P (MAP) 162/87 (112) Pulse Ox 94 95 96 O2 Delivery Nasal Cannula Nasal Cannula Nasal Cannula O2 Flow Rate 2.00 2.00 2.00 11/29/17 11/29/17 11/29/17 11/29/17 08:00 08:00 08:00 09:00 Temp 97.0 Pulse 86 81 Resp 19 13 B/P (MAP) 165/78 (107) 175/92 (119) Pulse Ox 94 92 O2 Delivery Nasal Cannula Nasal Cannula Nasal Cannula Nasal Cannula O2 Flow Rate 2.00 2.00 2.00 2.00 11/29/17 11/29/17 10:05 10:51 Temp 98.2 Pulse 82 Resp 20 B/P (MAP) 183/88 (119) Pulse Ox 94 90 O2 Delivery Nasal Cannula Nasal Cannula O2 Flow Rate 2.00 2.00 Capillary Refill : Less Than 3 Seconds General Appearance: no apparent distress Respiratory: lungs clear, no respiratory distress Cardiovascular: regular rate, rhythm, no murmur Gastrointestinal: normal bowel sounds, non tender, soft Extremities: no pedal edema Neurologic/Psychiatric: alert, oriented x 3 (oriented to month/year but not date, otherwise oriented x 4), other (tearful) Skin: normal color, warm/dry Clinical Quality Measures DVT/VTE Risk/Contraindication: Risk Factor Score Per Nursin RFS Level Per Nursing on Admit: 4+=Very High Assessment/Plan Assessment/Plan (1) COPD exacerbation Status: Acute Assessment & Plan: With acute respiratory acidosis on admission requiring bipap , improved this am Appreciate Pulmonology recommendations, continue prednisone. No clear evidence of infection. (2) Altered mental status Status: Resolved Assessment & Plan: Suspect due to medications, she states she will not take alprazolam again. 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
[2017-11-29] MEDS ORDERED: hydrOXYzine (VISTARIL) 25 MG CAP PO NR (12:30)
[2017-11-29] MEDS ORDERED: NON-FORMULARY MEDICATION 1 EA EA (Insulin Aspart (Novolog Flexpen) 12 UNITS) SQ SCH (16:00)
[2017-11-29] MEDS ORDERED: LOSARTAN 25 MG (COZAAR) TAB PO NR (16:15)
[2017-11-29] MEDS: inSUlin ASPART (NovoLOG) 1 UNIT/0.01 ML (CHARGE PER UNIT) SC SCH (18:20)
[2017-11-29] MEDS ORDERED: NON-FORMULARY MEDICATION 1 EA EA (Vit C/E/Zn/Coppr/Lutein/Zeaxan (Preservision Areds 2 Sof PO SCH (21:00)
[2017-11-29] MEDS ORDERED: INSULIN DEGLUDEC 60 UNIT SC SCH (21:00)
[2017-11-29] MEDS ORDERED: NON-FORMULARY MEDICATION 1 EA EA (Lactobacillus Acidophilus (Probiotic) 1 CAP) PO SCH (21:00)
[2017-11-29] MEDS ORDERED: SERTRALINE 50 MG (ZOLOFT) TABLET PO SCH (21:00)
[2017-11-29] MEDS ORDERED: AZITHROMYCIN 250 MG TAB (ZITHROMAX) PO SCH (21:00)
[2017-11-29] MEDS ORDERED: CEFPODOXIME PROXETIL 200 MG PO SCH (21:00)
[2017-11-29] MEDS: LACTOBACILLUS Acidoph/Bulgar (LACTINEX/FLORANEX) TAB PO SCH (21:03)
[2017-11-29] MEDS: inSUlin DETERMIR 1 UNIT/0.01 ML (LEVEMIR) CHARGE PER UNIT SQ SCH (21:20)
[2017-11-30] VITALS: BP 178/86
[2017-11-30] MEDS: RT-ALBUTEROL/IPRATROPIUM 3 ML (DUONEB) VIAL INH SCH ×6 (03:08→20:59)
[2017-11-30 04:00] VITALS: BP 169/79
[2017-11-30 05:07] LABS: BASOPHILS % (AUTO) 0 % (0-10); EOSINOPHILS % (AUTO) 0 % (0-10); HEMATOCRIT 40 % (35-52); HEMOGLOBIN 13.5 G/DL (11.5-16.0); LYMPHOCYTES # (AUTO) 2.6 X 10^3 (1.0-4.0); LYMPHOCYTES % (AUTO) 25 % (12-44); MEAN CORPUSCULAR HEMOGLOBIN 30 PG (25-34); MEAN CORPUSCULAR HGB CONC 34 G/DL (32-36); MEAN CORPUSCULAR VOLUME 88 FL (80-99); MEAN PLATELET VOLUME 8.8 FL (7.4-10.4); MONOCYTES # (AUTO) 1.1 X 10^3 (0.0-1.0); MONOCYTES % (AUTO) 11 % (0-12); NEUTROPHILS # (AUTO) 6.5 X 10^3 (1.8-7.8); NEUTROPHILS % (AUTO) 64 % (42-75); PLATELET COUNT 222 10^3/uL (130-400); RED BLOOD COUNT 4.55 10^6/uL (4.35-5.85); RED CELL DISTRIBUTION WIDTH 13.6 % (10.0-14.5); WHITE BLOOD COUNT 10.3 10^3/uL (4.3-11.0)
[2017-11-30 05:26] LABS: BUN/CREATININE RATIO 25; CALCIUM 8.7 MG/DL (8.5-10.1); CARBON DIOXIDE 30 MMOL/L (21-32); CHLORIDE 98 MMOL/L (98-107); CREATININE SERUM 0.76 MG/DL (0.60-1.30); GFR ESTIMATED > 60; GLUCOSE 75 MG/DL (70-105); MAGNESIUM 2.3 MG/DL (1.8-2.4); POTASSIUM 3.6 MMOL/L (3.6-5.0); SODIUM 138 MMOL/L (135-145)
[2017-11-30] MEDS: inSUlin (REGULAR) HUMAN 1 UNIT/0.01 ML (CHARGE PER UNIT) SC SCH ×4 (06:19→21:19)
[2017-11-30] MEDS: buPROPion SR 150 MG (WELLBUTRIN SR) TAB PO SCH ×2 (06:23→18:14)
[2017-11-30] MEDS: PANTOPRAZOLE 40 MG (PROTONIX) TAB PO SCH (06:24)
[2017-11-30] MEDS: inSUlin ASPART (NovoLOG) 1 UNIT/0.01 ML (CHARGE PER UNIT) SC SCH ×3 (07:11→18:14)
--- NOTE | 2017-11-30 07:41 | Physician Query Clarification ---
PQ-Uncertain Diagnosis Admission/Discharge Admission Date: Nov 28, 2017 at 16:25 Discharge Date: The medical record reflects the following clinical scenario: History/Risk Factors: COPD with acute exacerbation Respiratory acidosis Clinical Findings: Blood gases ABG ph 7.31, pCO2 58, pO2 182, HCO3 29, 02 sats 100, Base excess 2.9, mild distress(respiratory) wheezing and hypercarbia. Treatment: An hour-long nebulizer treatment, BiPAP Question: Is Acute respiratory failure with hypoxia and hypercapnia or acute on chronic respiratory failure a clinically valid diagnosis? Acute respiratory failure with hypoxia and hypercapnia was documented in the ED record by Dr. Kaur and Acute on chronic respiratory failure was documented on the consult by Dr. Archuleta. Please document a response below. PHYSICIAN RESPONSE Diagnosis clinically valid: Yes, Conditon resolved Explanation of clincal finding Acute on chronic hypercapneic respiratory failure In responding to this query, please exercise your independent professional judgment. The purpose of this communication is to more accurately reflect the complexity of your patients condition. The fact that a question is asked does not imply that any particular answer is desired or expected. Thank you for your timely response to this clarification. Requestors name: Mirta Vallecillo [facility] THIS PHYSICIAN QUERY FORM IS A PERMANENT PART OF THE MEDICAL RECORD MIRTA VALLECILLO Nov 30, 2017 07:41 SHANE GALVAN MD Nov 30, 2017 10:54
[2017-11-30 08:00] VITALS: BP 146/71
--- NOTE | 2017-11-30 08:02 | Physician Query Clarification ---
PQ-Further Specificity Admission/Discharge Admission Date: Nov 28, 2017 at 16:25 Discharge Date: The medical record reflects the following clinical scenario: History/Risk Factors: Altered Mental Status Respiratory acidosis Clinical Findings: Blood gases-pH 7.31,pCO2 58, pO2 182, HCO3 29, Base Excess 2.9, wheezing, hypercarbia. Treatment: Taken off of Alprazolam. Hold on Escitalopram and Sertraline. BiPAP Question: Can you further specify Etiology of altered mental status and respiratory acidosis per the clinical indicators above? Please document below. 1. Altered mental status and respiratory acidosis due to taking (too much) sedating medication (Alprazolam). 2. Adverse reaction to Alprazolam and or other sedating medications (properly administered). 3. Other, with explanation of the clinical findings. 4. Clinically undetermined, no explanation for the clinical findings. PHYSICIAN RESPONSE Can you specify per above: 2 In responding to this query, please exercise your independent professional judgment. The purpose of this communication is to more accurately reflect the complexity of your patients condition. The fact that a question is asked does not imply that any particular answer is desired or expected. Thank you for your timely response to this clarification. Requestors name: Mirta Vallecillo [facility] Phone # ext [phone] or [phone] THIS PHYSICIAN QUERY FORM IS A PERMANENT PART OF THE MEDICAL RECORD MIRTA VALLECILLO Nov 30, 2017 08:02 SHANE GALVAN MD Nov 30, 2017 10:55
--- NOTE | 2017-11-30 08:09 | Diagnostic Imaging Report ---
INDICATION: Dyspnea. Comparison with 11/29/2017. FINDINGS: Cardiomegaly with pulmonary venous congestion is again noted. Poor respiratory effort with bibasilar atelectasis consistent with Pickwickian state. No consolidated infiltrates have developed. No pleural effusion. IMPRESSION: 1. Findings are consistent with congestive failure without significant improvement since previous exam. 2. Pickwickian appearance with chronic basilar atelectasis more severe on the right. Dictated by: Dictated on workstation # [id number]
--- NOTE | 2017-11-30 08:39 | Pulmonary Progress Note ---
Subjective Time Seen by Provider: 08:42 Subjective/Events-last exam PT still c/o SOB and wheezing. Exam Exam Vital Signs Date Time Temp Pulse Resp B/P (MAP) Pulse Ox O2 Delivery O2 Flow Rate FiO2 11/30/17 07:50 Nasal Cannula 2.00 11/30/17 06:40 95 Nasal Cannula 3.00 11/30/17 04:00 97.4 58 18 169/79 (109) 91 Nasal Cannula 4.00 11/30/17 03:08 94 Nasal Cannula 3.00 11/30/17 00:00 97.7 59 20 178/86 (116) 96 Nasal Cannula 2.00 11/29/17 21:00 Nasal Cannula 2.00 11/29/17 20:15 97.5 90 20 186/87 (120) 95 Nasal Cannula 2.00 11/29/17 18:33 90 Nasal Cannula 3.00 11/29/17 16:00 97.7 98 22 190/90 (123) 94 Nasal Cannula 2.00 11/29/17 15:05 91 Nasal Cannula 2.00 11/29/17 12:10 190/100 (130) 11/29/17 10:51 90 Nasal Cannula 2.00 11/29/17 10:05 98.2 82 20 183/88 (119) 94 Nasal Cannula 2.00 11/29/17 09:00 81 13 175/92 (119) 92 Nasal Cannula 2.00 I & O 11/30/17 07:00 Intake Total 5197 ml Output Total 5650 ml Balance -453 ml General Appearance: WD/WN, Mild Distress HEENT: PERRL/EOMI, TMs Normal, Normal ENT Inspection, Other (oropharynx very dry) Neck: Normal Inspection, Non Tender Respiratory: No Accessory Muscle Use, No Respiratory Distress, No Crackles, Decreased Breath Sounds, Wheezing Cardiovascular: Regular Rate, Rhythm, No Edema, No Murmur Capillary Refill: Less Than 3 Seconds Gastrointestinal: normal bowel sounds, non tender, soft Extremity: Normal Inspection, No Pedal Edema Neurologic/Psychiatric: No Motor/Sensory Deficits, Other (confused with waxing and waning levels of alertness, improving somewhat with time. Moves all 4 extremities equally. Responds to voice and answer some questions. Has some spontaneous speech and movement.) Skin: Normal Color, Warm/Dry Results Lab Laboratory Tests 11/28/17 14:25 11/29/17 04:52 11/30/17 05:00 Assessment/Plan Assessment/Plan Acute on chronic respiratory failure - Doubt pneumonia - No fever, No leukocytosis. Pt was on 7 days of Omnicef prior to discharge. -Pt improved with noninvasive ventilation COPDAE -SVNs, add advair -continue prednisone Pulmonary edema per CXR -Will repeat LAsix x 1 Morbid obesity with probable OHS -Pt will benefit from noninvasive ventilation. Will order if repeat ABG still shows high C02. 233 Clinical Quality Measures DVT/VTE Risk/Contraindication: Risk Factor Score Per Nursin RFS Level Per Nursing on Admit: 4+=Very High GANGA JEAN DO Nov 30, 2017 08:39
--- NOTE | 2017-11-30 08:43 | Occ Therapy Progress Note ---
Therapy Progress Note 840 Pt declined OT at this time, stating that she didn't get much sleep last night and needed to rest. REBECA CASANOVA OT Nov 30, 2017 08:43
[2017-11-30] MEDS: LOSARTAN 25 MG (COZAAR) TAB PO SCH (08:57)
[2017-11-30] MEDS: LACTOBACILLUS Acidoph/Bulgar (LACTINEX/FLORANEX) TAB PO SCH ×2 (08:57→21:19)
[2017-11-30] MEDS ORDERED: PANTOPRAZOLE 40 MG (PROTONIX) TAB PO SCH (09:00)
[2017-11-30] MEDS ORDERED: NON-FORMULARY MEDICATION 1 EA EA (Multivitamin (Daily Multiple Vitamin) 1 TAB) PO SCH (09:00)
[2017-11-30] MEDS ORDERED: LOSARTAN 25 MG (COZAAR) TAB PO SCH (09:00)
[2017-11-30] MEDS ORDERED: NON-FORMULARY MEDICATION 1 EA EA (Escitalopram Oxalate 20 MG) PO SCH (09:00)
[2017-11-30] MEDS ORDERED: NON-FORMULARY MEDICATION 1 EA EA (Dapagliflozin Propanediol (Farxiga) 10 MG) PO SCH (09:00)
[2017-11-30] MEDS ORDERED: predniSONE 20 MG TAB PO SCH (09:00)
[2017-11-30] MEDS ORDERED: buPROPion XL 150 MG (WELLBUTRIN XL) NON-FORM PO SCH ×2 (09:00)
[2017-11-30] MEDS ORDERED: FUROSEMIDE 40 MG/4 ML INJ (LASIX) IVP NR (09:21)
[2017-11-30] MEDS ORDERED: KCL 20 MEQ TAB (K-DUR) PO NR (09:26)
[2017-11-30 12:00] VITALS: BP 145/76
[2017-11-30] MEDS: predniSONE 10 MG TAB PO SCH (12:41)
--- NOTE | 2017-11-30 13:47 | Physical Therapy Evaluation ---
PT Evaluation-General Medical Diagnosis Admission Date Nov 28, 2017 at 16:25 Medical Diagnosis: resp failure with hypoxia, COPD exac, AMS Onset Date: Nov 28, 2017 Therapy Diagnosis Therapy Diagnosis: Poor activity tolerance, weakness Height/Weight Height (Feet): 5 Height (Inches): 5.00 Weight (Pounds): 249 Weight (Ounces): 5.2 Precautions Precautions/Isolations: Contact Isolation, Fall Prevention, Standard Precautions Weight Bear Status Right Lower Extremity: Right Full Weight Bearing Left Lower Extremity: Left Full Weight Bearing Referral Physician: Sanjana Chen MD Reason for Referral: Evaluation/Treatment Medical History Pertinent Medical History: Alcoholism, Arthritis, COPD, DM, GERD, HTN, Smoking Additional Medical History History of medical noncompliance and falls Current History Pt arrived to ER through EMS. She was found down and was hypoxic and wheezing. Pt is being treated for COPD exacerbation. Reviewed History: Yes Social History Home: Single Level Current Living Status: Entry Into Home: Stairs With Railing PT Steps Into Home: 4 PT Steps Inside Home: 0 Pt lives with ex- and is alone for most of the day. Prior/Core FIM Prior Level of Function Functional Union Measure 0=Not Assessed/NA 4=Minimal Assistance 1=Total Assistance 5=Supervision or Setup 2=Maximal Assistance 6=Modified Union 3=Moderate Assistance 7=Complete Union Bed Mobility: 7 Transfers (B,C,W/C) (FIM): 7 Gait: 7 Locomotion: 7 PT Evaluation-Current Subjective Pt is sitting in bed in room pre eval and c/o pain in R hip possibly due to fall. Pt speaks a few words, then needs to take a breath before speaking more. Pt agrees to PT. Pain Numeric Pain Scale: 5-Moderate Pain Location: Right Location Body Site: Hip Pt/Family Goals Union at home Objective Patient Orientation: Normal For Age Attachments: Oxygen (3 L) ROM/Strength ROM Lower Extremities Grossly WNL Strength Lower Extremities Grossly 4/5 amalia 5/5 amalia ankle DF Neuromuscular (Tone, Coordination, Reflexes) NT Sensory Vision: Functional Hearing: Functional Sensation Right Lower Extremit: Intact Sensation Left Lower Extremity: Intact Transfers Functional Union Measure 0=Not Assessed/NA 4=Minimal Assistance 1=Total Assistance 5=Supervision or Setup 2=Maximal Assistance 6=Modified Union 3=Moderate Assistance 7=Complete Union Transfers (B, C, W/C) (FIM): 5 Scootin Rollin Supine to/from Sit: 6 Sit to/from Stand: 5 Pt requires bed rails during supine to sit at edge of bed transfer. Gait Mode of Locomotion: Walk Anticipated Mode of Locomotion: Walk Gait (FIM): 1 Distance: 25 feet Gait Level of Assist: 4 Gait Assistive Device: FWW Comments/Gait Description Patient ambulated back and forth in her room. Balance Sitting Static: Normal Sitting Dynamic: Normal Standing Static: Normal Standing Dynamic: Normal Treatment Pt performed bed mobility, functional activity, strength and sensation testing, and gait training. Assessment/Needs Pt demonstrates SOB after speaking a few words and needs to take a breath before talking again. Pt requires supervision for most transfers and is able to perform bed mobility with mod I using the bed rails. Pt demonstrates some weakness in the LE. Rehab Potential: Fair PT Short Term Goals Short Term Goals Time Frame: Dec 07, 2017 Transfers (B,C,W/C) (FIM): 6 Gait (FIM): 6 Gait Distance Comment: 150 feet Gait Level of Assist: 6 Gait Assistive Device: FWW PT Plan Problem List Problem List: Activity Tolerance, Functional Strength, Safety, Balance, Gait, Transfer, Bed Mobility, ROM Treatment/Plan Treatment Plan: Continue Plan of Care Treatment Plan: Bed Mobility, Education, Functional Activity Garrick, Functional Strength, Gait, Safety, Therapeutic Exercise, Transfers Treatment Duration: Dec 07, 2017 Frequency: 6 times per week Estimated Hrs Per Day: .25 hour per day (15-30') Patient and/or Family Agrees t: Yes Safety Risks/Education Patient Education: Gait Training, Transfer Techniques, Correct Positioning, Safety Issues Teaching Recipient: Patient Teaching Methods: Demonstration, Discussion Response to Teaching: Reinforcement Needed Discharge Recommendations Plan Pt will perform bed mobility, functional activity, and gait training in order to improve activity tolerance to become independent at home. Therapy D/C Recommendations: Home w/ Family Support Equpiment Recommendations-D/C: None Barriers to Progress SOB with activity Time/GCodes Time In: 1305 Time Out: 1325 Total Billed Treatment Time: 20 Total Billed Treatment 1 visit 20 min SUAD FRANCIS PT Nov 30, 2017 13:47
--- NOTE | 2017-11-30 14:16 | Occ Therapy Progress Note ---
Therapy Progress Note 1410 Pt refused occupational therapy, stating, "I just finished up with PT and I'm too tired." PT reported that she toileted with supervision. REBECA CASANOVA OT Nov 30, 2017 14:16
[2017-11-30] MEDS ORDERED: ENOXAPARIN 40 MG/0.4 ML (LOVENOX) SYR SC SCH (14:45)
--- NOTE | 2017-11-30 14:45 | Progress Note (SOAP) ---
Subjective Subjective/Events-last exam Afebrile, feeling a little better but still requiring supplemental oxygen. Review of Systems Date Seen by Provider: Nov 30, 2017 Time Seen by Provider: 11:21 Objective Exam Last Set of Vital Signs Vital Signs Date Time Temp Pulse Resp B/P (MAP) Pulse Ox O2 Delivery O2 Flow Rate FiO2 11/30/17 12:00 97.0 81 20 145/76 (99) 94 Nasal Cannula 3.00 11/29/17 00:00 35 Capillary Refill : Less Than 3 Seconds I&O Intake and Output 11/29/17 23:59 Intake Total 5247 ml Output Total 5500 ml Balance -253 ml Intake Oral 2797 ml IV Total 2450 ml Output Urine Total 5500 ml # Voids 5 General: Alert, No Acute Distress Lungs: Normal Air Movement, Other (expiratory wheeze) Heart: Regular Rate, No Murmurs Neuro: Normal Speech Psych/Mental Status: Mental Status NL Results/Procedures Lab Laboratory Tests 11/29/17 16:04: Glucometer 295H 11/29/17 20:59: Glucometer 209H 11/30/17 05:00: White Blood Count 10.3, Red Blood Count 4.55, Hemoglobin 13.5, Hematocrit 40, Mean Corpuscular Volume 88, Mean Corpuscular Hemoglobin 30, Mean Corpuscular Hemoglobin Concent 34, Red Cell Distribution Width 13.6, Platelet Count 222, Mean Platelet Volume 8.8, Neutrophils (%) (Auto) 64, Lymphocytes (%) (Auto) 25, Monocytes (%) (Auto) 11, Eosinophils (%) (Auto) 0, Basophils (%) (Auto) 0, Neutrophils # (Auto) 6.5, Lymphocytes # (Auto) 2.6, Monocytes # (Auto) 1.1H, Eosinophils # (Auto) 0.0, Basophils # (Auto) 0.0, Sodium Level 138, Potassium Level 3.6, Chloride Level 98, Carbon Dioxide Level 30, Anion Gap 10, Blood Urea Nitrogen 19H, Creatinine 0.76, Estimat Glomerular Filtration Rate > 60, BUN/ Creatinine Ratio 25, Glucose Level 75, Calcium Level 8.7, Phosphorus Level 3.0, Magnesium Level 2.3 11/30/17 11:07: Glucometer 167H Microbiology 11/28/17 Blood Culture - Preliminary, Resulted No growth 11/28/17 MRSA Screen - Final, Complete Radiology CXR 11/28: IMPRESSION: Congestive changes with cardiomegaly and right basilar infiltrate or atelectasis. CT head/neck 11/28: IMPRESSION: 1. Acute maxillary and sphenoid sinusitis which is a new development since . 2. Otherwise, there is no CT evidence of acute intracranial abnormality. IMPRESSION: 1. Loss of cervical lordosis may represent muscle spasm or positioning. This is stable when compared to previous exam. There is no CT evidence of acute cervical spinal abnormality noted on the limited study. 2. Enlargement of left lobe of the thyroid gland is again noted. Assessment/Plan Assessment/Plan (1) COPD exacerbation Status: Acute Assessment & Plan: With acute respiratory acidosis on admission requiring bipap , improved this am Appreciate Pulmonology recommendations, continue prednisone. No clear evidence of infection. 11/30 possible fluid overload as well, lasix ordered today per Dr. Archuleta (2) Altered mental status Status: Resolved Assessment & Plan: Suspect due to medications, she states she will not take alprazolam again. 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 Discussed risks still exist with H2 rosie, although probably less than with benzodiazepine. (5) 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 Status: Chronic Assessment & Plan: Resume home medications- increased dose of losartan with hypertension since admission Qualifiers: Qualified Codes: I10 - Essential (primary) hypertension (6) DVT prophylaxis Status: Acute Assessment & Plan: Enoxaparin Clinical Quality Measures DVT/VTE Risk/Contraindication: Risk Factor Score Per Nursin RFS Level Per Nursing on Admit: 4+=Very High SHANE GALVAN MD Nov 30, 2017 2:45 pm
[2017-11-30] MEDS: hydrOXYzine (VISTARIL) 25 MG CAP PO PRN ×2 (15:20→23:39)
[2017-11-30 16:00] VITALS: BP 165/76
[2017-11-30] MEDS: RT-ADVAIR HFA 115/21 MCG PER PUFF IH SCH (20:00)
[2017-11-30 20:11] VITALS: BP 168/71
[2017-11-30] MEDS: inSUlin DETERMIR 1 UNIT/0.01 ML (LEVEMIR) CHARGE PER UNIT SQ SCH (21:20)
[2017-12-01] VITALS: BP 122/81
[2017-12-01] MEDS: RT-ALBUTEROL/IPRATROPIUM 3 ML (DUONEB) VIAL INH SCH ×3 (02:17→10:58)
[2017-12-01] MEDS: inSUlin (REGULAR) HUMAN 1 UNIT/0.01 ML (CHARGE PER UNIT) SC SCH ×2 (05:14→11:05)
[2017-12-01] MEDS: PANTOPRAZOLE 40 MG (PROTONIX) TAB PO SCH (05:54)
[2017-12-01] MEDS: buPROPion SR 150 MG (WELLBUTRIN SR) TAB PO SCH (05:55)
[2017-12-01] MEDS: inSUlin ASPART (NovoLOG) 1 UNIT/0.01 ML (CHARGE PER UNIT) SC SCH ×2 (05:55→11:16)
[2017-12-01 06:55] LABS: BASOPHILS % (AUTO) 0 % (0-10); EOSINOPHILS % (AUTO) 0 % (0-10); HEMATOCRIT 46 % (35-52); HEMOGLOBIN 15.6 G/DL (11.5-16.0); LYMPHOCYTES # (AUTO) 2.1 X 10^3 (1.0-4.0); LYMPHOCYTES % (AUTO) 20 % (12-44); MEAN CORPUSCULAR HEMOGLOBIN 30 PG (25-34); MEAN CORPUSCULAR HGB CONC 34 G/DL (32-36); MEAN CORPUSCULAR VOLUME 87 FL (80-99); MEAN PLATELET VOLUME 8.8 FL (7.4-10.4); MONOCYTES # (AUTO) 0.7 X 10^3 (0.0-1.0); MONOCYTES % (AUTO) 7 % (0-12); NEUTROPHILS # (AUTO) 7.5 X 10^3 (1.8-7.8); NEUTROPHILS % (AUTO) 73 % (42-75); PLATELET COUNT 286 10^3/uL (130-400); RED BLOOD COUNT 5.27 10^6/uL (4.35-5.85); RED CELL DISTRIBUTION WIDTH 13.5 % (10.0-14.5); WHITE BLOOD COUNT 10.3 10^3/uL (4.3-11.0)
[2017-12-01 07:14] LABS: BUN/CREATININE RATIO 27; CALCIUM 9.5 MG/DL (8.5-10.1); CARBON DIOXIDE 29 MMOL/L (21-32); CHLORIDE 94 MMOL/L (98-107); CREATININE SERUM 0.78 MG/DL (0.60-1.30); GFR ESTIMATED > 60; GLUCOSE 138 MG/DL (70-105); MAGNESIUM 2.3 MG/DL (1.8-2.4); PHOSPHORUS 4.3 MG/DL (2.3-4.7); POTASSIUM 3.9 MMOL/L (3.6-5.0); SODIUM 136 MMOL/L (135-145)
--- NOTE | 2017-12-01 07:26 | Diagnostic Imaging Report ---
INDICATION: Dyspnea. COMPARISON: 11/30/2017 FINDINGS: Single frontal radiographic view of the chest was obtained and continue to show low inspiratory volumes with asymmetric elevation of right hemidiaphragm. Pulmonary interstitium and pulmonary vasculature remain slightly prominent. There is no new alveolar consolidation. Small effusions cannot be excluded. There is no pneumothorax. Cardiac silhouette is stable. Bony structures show no gross acute abnormalities. IMPRESSION: 1. Stable exam of the chest showing probable mild pulmonary vascular congestion and interstitial pulmonary edema. 2. Persistent low lung volumes with asymmetric elevation of the right hemidiaphragm. Dictated by: Dictated on workstation # [id number]
--- NOTE | 2017-12-01 07:27 | Pulmonary Progress Note ---
Exam Exam Vital Signs Date Time Temp Pulse Resp B/P (MAP) Pulse Ox O2 Delivery O2 Flow Rate FiO2 12/01/17 06:54 96 Nasal Cannula 3.00 12/01/17 02:17 96 Nasal Cannula 3.00 12/01/17 00:00 96.0 66 18 122/81 (95) 94 Nasal Cannula 3.00 11/30/17 20:59 95 Nasal Cannula 3.00 11/30/17 20:55 Nasal Cannula 2.00 11/30/17 20:11 97.8 72 18 168/71 (103) 96 Nasal Cannula 3.00 11/30/17 16:00 97.2 71 18 165/76 (105) 93 Nasal Cannula 3.00 11/30/17 15:20 Nasal Cannula 3.00 11/30/17 12:00 97.0 81 20 145/76 (99) 94 Nasal Cannula 3.00 11/30/17 08:00 97.5 74 24 146/71 (96) 93 Nasal Cannula 3.00 11/30/17 07:50 Nasal Cannula 2.00 I & O 12/01/17 07:00 Intake Total 2470 ml Output Total 5000 ml Balance -2530 ml General Appearance: WD/WN, Mild Distress HEENT: PERRL/EOMI, TMs Normal, Normal ENT Inspection, Other (oropharynx very dry) Neck: Normal Inspection, Non Tender Respiratory: No Accessory Muscle Use, No Respiratory Distress, No Crackles, Decreased Breath Sounds, Wheezing Cardiovascular: Regular Rate, Rhythm, No Edema, No Murmur Capillary Refill: Less Than 3 Seconds Gastrointestinal: normal bowel sounds, non tender, soft Extremity: Normal Inspection, No Pedal Edema Neurologic/Psychiatric: No Motor/Sensory Deficits, Other (confused with waxing and waning levels of alertness, improving somewhat with time. Moves all 4 extremities equally. Responds to voice and answer some questions. Has some spontaneous speech and movement.) Skin: Normal Color, Warm/Dry Results Lab Laboratory Tests 11/30/17 05:00 12/01/17 05:26 Assessment/Plan Assessment/Plan Acute on chronic respiratory failure - Doubt pneumonia - No fever, No leukocytosis. Pt was on 7 days of Omnicef prior to discharge. -Pt improved with noninvasive ventilation COPDAE -SVNs, advair -continue prednisone Pulmonary edema per CXR -Will repeat LAsix x 1 Morbid obesity with probable OHS 232 Clinical Quality Measures DVT/VTE Risk/Contraindication: Risk Factor Score Per Nursin RFS Level Per Nursing on Admit: 4+=Very High GANGA JEAN DO Dec 01, 2017 07:26
[2017-12-01 08:00] VITALS: BP 146/71
[2017-12-01] MEDS: LACTOBACILLUS Acidoph/Bulgar (LACTINEX/FLORANEX) TAB PO SCH (08:22)
[2017-12-01] MEDS: LOSARTAN 25 MG (COZAAR) TAB PO SCH (08:24)
[2017-12-01] MEDS: hydrOXYzine (VISTARIL) 25 MG CAP PO PRN (10:36)
[2017-12-01] MEDS ORDERED: LOSA50TA36 PO (10:58)
[2017-12-01] MEDS ORDERED: PRD10T PO (10:58)
[2017-12-01] MEDS ORDERED: HYDR-3781 PO (10:58)
[2017-12-01] MEDS: RT-ADVAIR HFA 115/21 MCG PER PUFF IH SCH (10:58)
--- NOTE | 2017-12-01 10:59 | Discharge Instructions ---
Discharge [facility] Discharge Medications New, Converted or Re-Newed RX: Transmitted to Pharmacy New Medications: Hydroxyzine Pamoate (Hydroxyzine Pamoate) 25 Mg Capsule 25 MG PO BID PRN for anxiety, #14 CAP 0 Refills Changed Medications: Losartan Potassium (Losartan Potassium) 50 Mg Tablet 50 MG PO DAILY, #30 TAB 0 Refills (Changed from: Losartan Potassium 25 Mg Tablet 25 Mg PO DAILY) Prednisone (Prednisone) 10 Mg Tab 0 PO UD, #10 TAB 0 Refills (Changed from: Prednisone 20 Mg Tab 20 Mg PO DAILY # 11 TAB Ref 0) Take 4 tabs (40mg) daily, decrease by 1 tab (10mg) daily. Continued Medications: Acetaminophen (Acetaminophen) 500 Mg Tablet 1000 MG PO Q6H PRN for PAIN-MILD/FEVER for 30 Days, TAB Bupropion HCl (Bupropion Xl) 150 Mg Tab.er.24h 450 MG PO DAILY, TAB TAKES 3 (150MG) TABLETS Chlorhexidine Gluconate (Chlorhexidine Gluconate) 473 Ml Mouthwash MM UD PRN for MOUTH SORES, EA Dapagliflozin Propanediol (Farxiga) 10 Mg Tablet 10 MG PO DAILY, TAB Glucosamine HCl/Chondr Bentley A Na (Osteo Bi-Flex Caplet) 1 Each Tablet 1 TAB PO DAILY, TAB Insulin Aspart (Novolog Flexpen) 300 Units/3 Ml Solution 12 UNITS SQ TIDAC, EA Insulin Degludec (Tresiba Flextouch U-100) 100 Unit/1 Ml Insuln.pen 60 UNITS SC HS, EA Lactobacillus Acidophilus (Probiotic) 1 Each Capsule 1 CAP PO BID, CAP Multivitamin (Daily Multiple Vitamin) 1 Each Tablet 1 TAB PO DAILY, TAB Pantoprazole Sodium (Pantoprazole Sodium) 40 Mg Tablet.dr 40 MG PO DAILY, TAB LAST FILLED #90 07-22-17 Vit C/E/Zn/Coppr/Lutein/Zeaxan (Preservision Areds 2 Softgel) 1 Each Capsule 1 TAB PO BID, CAP Discontinued Medications: Alprazolam (Alprazolam) 0.5 Mg Tablet 0.5 MG PO DAILY PRN for ANXIETY, TAB Azithromycin (Azithromycin) 250 Mg Tablet 250 MG PO DAILY for 4 Days, #4 TAB 0 Refills Cefpodoxime Proxetil (Cefpodoxime Proxetil) 200 Mg Tablet 200 MG PO BID for 10 Days, #20 TAB 0 Refills Escitalopram Oxalate (Escitalopram Oxalate) 20 Mg Tablet 20 MG PO DAILY, TAB Pseudoephedrine HCl (Pseudoephedrine ER) 120 Mg Tablet.er 60 MG PO Q12H PRN for CONGESTION, TAB Sertraline HCl (Zoloft) 50 Mg Tablet 50 MG PO HS, TAB Patient Instructions Goal/Follow Up Appt: Follow up with Dr. Mendes on Dec 08 at 1:40 pm. Transportation will be at your house to pick you up at 1:15 pm. Return to [facility] For: Fever, worsening shortness of breath, difficulty walking Activity & Diet Discharge Diet: ADA Diet Activity as Tolerated: Yes Copy Copies To 1: REJI MENDES MD, BETHANY N MD Dec 01, 2017 10:59 am
[2017-12-01] MEDS ORDERED: ALBU18HF2 IH (11:05)
--- NOTE | 2017-12-01 11:06 | Discharge Summary ---
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 No clear evidence of infection. 11/30 possible fluid overload as well, lasix ordered today per Dr. Archuleta 12/01 down to requiring oxygen only with exertion, home O2 ordered, will need PFTs done as she has no formal diagnosis of COPD. Given script for albuterol inhaler. (2) Altered mental status Status: Resolved Assessment & Plan: Suspect due to medications, she states she will not take alprazolam again. Also note that on home meds, reported escitalopram, sertraline and bupropion, will hold escitalopram and sertraline and continue bupropion for now 12/01 Stopped escitalopram and sertraline and alprazolam on d/c, continued bupropion and added hydroxyzine as noted below (3) Type 2 diabetes mellitus, with long-term current use of insulin Assessment & Plan: Resume home insulin and Farxiga, diabetic diet, sliding scale insulin (4) Generalized anxiety disorder Assessment & Plan: Med changes as noted under AMS 11/30- trial of one dose of hydroxyzine yesterday she reported beneficial and would like to continue. Discussed risks still exist with H2 rosie, although probably less than with benzodiazepine. 12/01 due to severe anxiety and medication changes, did agree to give small amount of hydroxyzine, but discussed this can still increase her risk for falls and she should use sparingly (5) 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 Assessment & Plan: increased dose of losartan with hypertension since admission , sent with script for increased dose Chief Complaint/HPI Chief Complaint/HPI 62 yo female admitted through ER after being brought in by EMS due to being found down and minimally responsive with hypoxia and wheezing. She does not recall much of what happened, but believes it may have been due to taking alprazolam. She was in the hospital this weekend and treated for COPD exacerbation (although she reports no diagnosis of COPD), and she was taking her prednisone. The prednisone made her shaky so she took alprazolam which she has not taken in a month or more. She does have a history of excess alcohol use but reports her last drink was about 4 weeks ago. She has had falls in the past and been to SNF for strengthening, but states she is doing fine currently. She required bipap last night and was acidotic, but is much improved this am. Discharge Summary-Simple/Stand Consultations Discharge Physical Examination Allergies: Coded Allergies: Sulfa (Sulfonamide Antibiotics) (Verified Allergy, Unknown, 08/26/14) morphine (Verified Adverse Reaction, Mild, NAUSEA, 05/19/16) Vitals & I&Os Vital Sign - Last 12Hours Date Time Temp Pulse Resp B/P (MAP) Pulse Ox O2 Delivery O2 Flow Rate FiO2 12/01/17 10:59 92 Nasal Cannula 2.00 12/01/17 08:00 98.4 81 20 146/71 (96) 11/29/17 00:00 35 Intake and Output 11/30/17 23:59 Intake Total 2070 ml Output Total 3600 ml Balance -1530 ml General Appearance: Alert, No Acute Distress Respiratory: Clear to Auscultation, Normal Air Movement Cardiovascular: Regular Rate, No Murmurs Neuro: Normal Speech Psych/Mental Status: Mental Status NL Hospital Course See final discharge diagnosis. Labs Laboratory Tests Test 11/29/17 16:04 11/29/17 20:59 11/30/17 05:00 11/30/17 11:07 Range/Units Glucometer 295 H 209 H 167 H 70-110 MG/DL White Blood Count 10.3 4.3-11.0 10^3/uL Red Blood Count 4.55 4.35-5.85 10^6/uL Hemoglobin 13.5 11.5-16.0 G/DL Hematocrit 40 35-52 % Mean Corpuscular Volume 88 80-99 FL Mean Corpuscular Hemoglobin 30 25-34 PG Mean Corpuscular Hemoglobin Concent 34 32-36 G/DL Red Cell Distribution Width 13.6 10.0-14.5 % Platelet Count 222 130-400 10^3/uL Mean Platelet Volume 8.8 7.4-10.4 FL Neutrophils (%) (Auto) 64 42-75 % Lymphocytes (%) (Auto) 25 12-44 % Monocytes (%) (Auto) 11 0-12 % Eosinophils (%) (Auto) 0 0-10 % Basophils (%) (Auto) 0 0-10 % Neutrophils # (Auto) 6.5 1.8-7.8 X 10^3 Lymphocytes # (Auto) 2.6 1.0-4.0 X 10^3 Monocytes # (Auto) 1.1 H 0.0-1.0 X 10^3 Eosinophils # (Auto) 0.0 0.0-0.3 10^3/uL Basophils # (Auto) 0.0 0.0-0.1 10^3/uL Sodium Level 138 135-145 MMOL/L Potassium Level 3.6 3.6-5.0 MMOL/L Chloride Level 98 98-107 MMOL/L Carbon Dioxide Level 30 21-32 MMOL/L Anion Gap 10 5-14 MMOL/L Blood Urea Nitrogen 19 H 7-18 MG/DL Creatinine 0.76 0.60-1.30 MG/DL Estimat Glomerular Filtration Rate > 60 BUN/Creatinine Ratio 25 Glucose Level 75 70-105 MG/DL Calcium Level 8.7 8.5-10.1 MG/DL Phosphorus Level 3.0 2.3-4.7 MG/DL Magnesium Level 2.3 1.8-2.4 MG/DL Test 11/30/17 16:30 11/30/17 21:12 12/01/17 05:14 12/01/17 05:26 Range/Units Glucometer 163 H 268 H 150 H 70-110 MG/DL White Blood Count 10.3 4.3-11.0 10^3/uL Red Blood Count 5.27 4.35-5.85 10^6/uL Hemoglobin 15.6 11.5-16.0 G/DL Hematocrit 46 35-52 % Mean Corpuscular Volume 87 80-99 FL Mean Corpuscular Hemoglobin 30 25-34 PG Mean Corpuscular Hemoglobin Concent 34 32-36 G/DL Red Cell Distribution Width 13.5 10.0-14.5 % Platelet Count 286 130-400 10^3/uL Mean Platelet Volume 8.8 7.4-10.4 FL Neutrophils (%) (Auto) 73 42-75 % Lymphocytes (%) (Auto) 20 12-44 % Monocytes (%) (Auto) 7 0-12 % Eosinophils (%) (Auto) 0 0-10 % Basophils (%) (Auto) 0 0-10 % Neutrophils # (Auto) 7.5 1.8-7.8 X 10^3 Lymphocytes # (Auto) 2.1 1.0-4.0 X 10^3 Monocytes # (Auto) 0.7 0.0-1.0 X 10^3 Eosinophils # (Auto) 0.0 0.0-0.3 10^3/uL Basophils # (Auto) 0.0 0.0-0.1 10^3/uL Sodium Level 136 135-145 MMOL/L Potassium Level 3.9 3.6-5.0 MMOL/L Chloride Level 94 L 98-107 MMOL/L Carbon Dioxide Level 29 21-32 MMOL/L Anion Gap 13 5-14 MMOL/L Blood Urea Nitrogen 21 H 7-18 MG/DL Creatinine 0.78 0.60-1.30 MG/DL Estimat Glomerular Filtration Rate > 60 BUN/Creatinine Ratio 27 Glucose Level 138 H 70-105 MG/DL Calcium Level 9.5 8.5-10.1 MG/DL Phosphorus Level 4.3 2.3-4.7 MG/DL Magnesium Level 2.3 1.8-2.4 MG/DL Test 12/01/17 11:02 Range/Units Glucometer 189 H 70-110 MG/DL Radiology Reviewed CXR 11/28: IMPRESSION: Congestive changes with cardiomegaly and right basilar infiltrate or atelectasis. CT head/neck 11/28: IMPRESSION: 1. Acute maxillary and sphenoid sinusitis which is a new development since . 2. Otherwise, there is no CT evidence of acute intracranial abnormality. IMPRESSION: 1. Loss of cervical lordosis may represent muscle spasm or positioning. This is stable when compared to previous exam. There is no CT evidence of acute cervical spinal abnormality noted on the limited study. 2. Enlargement of left lobe of the thyroid gland is again noted. Discharge Instructions to patient/family Please see electronic discharge instructions given to patient. Discharge Medications Reviewed and agree with Discharge Medication list on patient's Discharge Instruction sheet Clinical Quality Measures DVT/VTE Risk/Contraindication: Risk Factor Score Per Nursin RFS Level Per Nursing on Admit: 4+=Very High Copy Copies To 1: REJI ROY MD,SHANE Vinson MD Dec 01, 2017 11:06 am
--- NOTE | 2017-12-01 11:08 | Physical Therapy Daily Note ---
PT Daily Note-Current Subjective Patient reports she is going home today. Pain Numeric Pain Scale: 0-No Pain Location: No Pain Reported Mental Status Patient Orientation: Normal For Age Attachments: Oxygen (2L) Transfers Functional [place] Measure 0=Not Assessed/NA 4=Minimal Assistance 1=Total Assistance 5=Supervision or Setup 2=Maximal Assistance 6=Modified [place] 3=Moderate Assistance 7=Complete IndependenceIRFPAI Quality Coding Scale 6 Independent with activity with or without an assistive device 5 Patient requires set up or clean up by helper. Patient completes activity by themselves 4 Supervision or touching assist (CGA). [place] provide cues , steadying assist 3 The helper provides less than half the effort to complete the activity 2 The helper provides more than half the effort to complete the activity 1 Dependent. The helper does all the effort to complete an activity 7 Patient refused to complete or attempt activity 9 The patient did not perform the activity before the current illness or injury 88 Not attempted due to Medical conditions or safety concerns Transfers (B, C, W/C) (FIM): 6 Scootin Rollin Supine to/from Sit: 6 Sit to/from Stand: 6 Weight Bearing Right Lower Extremity: Right Full Weight Bearing Left Lower Extremity: Left Full Weight Bearing Gait Training Gait (FIM): 6 Distance (FIM): 3=150 ft Distance: 400' Gait Level of Assist: 6 Gait Assistive Device: FWW safe and functional with use of FWW Assessment Patient much improved with gross motor skills and will dismiss to home on this date. PT Short Term Goals Short Term Goals Time Frame: Dec 07, 2017 Transfers (B,C,W/C) (FIM): 6 Gait (FIM): 6 Gait Distance Comment: 150 feet Gait Level of Assist: 6 Gait Assistive Device: FWW PT Plan Treatment/Plan Treatment Plan: Discontinue PT, goals met Treatment Plan: Bed Mobility, Education, Functional Activity [place], Functional Strength, Gait, Safety, Therapeutic Exercise, Transfers Treatment Duration: Dec 07, 2017 Frequency: 6 times per week Estimated Hrs Per Day: .25 hour per day (15-30') Patient and/or Family Agrees t: Yes Time/GCodes Time In: 1035 Time Out: 1044 Total Billed Treatment Time: 9 Total Billed Treatment 1 visit FA 9 min CAILIN COLEY PT Dec 01, 2017 11:08
[2017-12-01] MEDS: predniSONE 10 MG TAB PO SCH (11:16)
== END 2017-12-01 13:10 | disposition home or self-care (01) | DRG 189 ==
LOC: EDUNIT# 13:49 → ER 13:51 → ICU 16:25 → UNDOADMIN 16:25 → 4TH 11-29 10:00
PROVIDERS: ADMIT Family Medicine; ATTEND Family Medicine
DX: J96.22 Acute and chronic respiratory failure with hypercapnia (principal); E87.2 Acidosis; R41.82 Altered mental status, unspecified; R53.83 Other fatigue; T42.4X5A Adverse effect of benzodiazepines, initial encounter; J44.1 Chronic obstructive pulmonary disease with (acute) exacerbation; E66.2 Morbid (severe) obesity with alveolar hypoventilation; Z68.41 Body mass index [BMI] 40.0-44.9, adult; J81.1 Chronic pulmonary edema; I10 Essential (primary) hypertension; E11.65 Type 2 diabetes mellitus with hyperglycemia; F41.1 Generalized anxiety disorder; K21.9 Gastro-esophageal reflux disease without esophagitis; K44.9 Diaphragmatic hernia without obstruction or gangrene; J30.2 Other seasonal allergic rhinitis; M19.91 Primary osteoarthritis, unspecified site; L40.9 Psoriasis, unspecified; R29.6 Repeated falls; Z79.4 Long term (current) use of insulin; Z87.891 Personal history of nicotine dependence; Z91.19 Patient's noncompliance with other medical treatment and regimen; Z79.52 Long term (current) use of systemic steroids; Z72.89 Other problems related to lifestyle
CPT/HCPCS: 36415; 51702; 70450; 71045; 72125; 80048; 80053; 80306; 80320; 81000; 82805; 82962; 83605; 83735; 83880; 84100; 84145; 85025; 85610; 85730; 86141; 87040; 87070; 87077; 87081; 87186; 87205; 87804; 94640; 94644; 94660; 94664; 94760; 94761; 96361; 96365; 96374; 96375; G0378

== ENCOUNTER 2018-01-19 17:08 | Observation (INO) | payer MEDICARE ==
[~2018-01-19] VITALS: Ht 175.3 cm; Wt 120.8 kg
[~2018-01-19 17:08] MED LIST changes: +ALBU18HF2 IH; +CHLO473M MM; +DAPA10TA PO; +HYDR-3781 PO; +HYDR-3870 PO; -HYDR-3874 PO; +INSU100I32 SC; +LOSA50TA36 PO; +PRD10T PO; +PSEU120T75 PO
[2018-01-19] MEDS ORDERED: NALOXONE 2 MG/2 ML (NARCAN) SYR ONE (17:10)
[2018-01-19] MEDS ORDERED: NS IV 1000 ML 1,000 ML IV SCH ×2 (17:30→21:30)
[2018-01-19] MEDS ORDERED: NALOXONE 2 MG/2 ML (NARCAN) SYR IV ONE (17:30)
[2018-01-19 17:36] LABS: BILIRUBIN,URINE NEGATIVE (NEGATIVE); CLARITY,URINE CLEAR; COLOR,URINE YELLOW; GLUCOSE, URINE (UA) 4+ (NEGATIVE); KETONES,URINE NEGATIVE (NEGATIVE); LEUKOCYTE ESTERASE ,URINE NEGATIVE (NEGATIVE); NITRITE,URINE NEGATIVE (NEGATIVE); PH,URINE 5 (5-9); PROTEIN,URINE NEGATIVE (NEGATIVE); UROBILINOGEN,URINE NORMAL (NORMAL)
[2018-01-19 17:48] LABS: BENZODIAZEPINES SCREEN URINE POSITIVE (NEGATIVE); TRICYCLIC ANTIDEPRESSANTS SCRE POSITIVE (NEGATIVE)
[2018-01-19 17:49] LABS: AMPHETAMINE SCREEN, URINE NEGATIVE (NEGATIVE); BARBITURATE SCREEN URINE NEGATIVE (NEGATIVE); CANNABINOID SCREEN, URINE NEGATIVE (NEGATIVE); COCAINE SCREEN URINE NEGATIVE (NEGATIVE); METHADONE STAT NEGATIVE (NEGATIVE); METHAMPHETAMINE SCREEN URINE S NEGATIVE (NEGATIVE); OPIATE SCREEN URINE NEGATIVE (NEGATIVE); OXYCODONE STAT NEGATIVE (NEGATIVE); PROPOXYPHENE STAT NEGATIVE (NEGATIVE)
[2018-01-19 17:54] LABS: SQUAMOUS EPITHELIAL CELL,UR RARE /HPF
--- NOTE | 2018-01-19 17:54 | ED General ---
General Chief Complaint: Altered Mental Status Stated Complaint: FALL History of Present Illness Date Seen by Provider: Jan 19, 2018 Time Seen by Provider: 17:15 Initial Comments Patient is a 63-year-old female who is brought in by [facility]. EMS was dispatched for unresponsive person covered in blood. On arrival patient appears sedated, patient is oriented to place and name. Narcan was given on arrival to the emergency room without improvement of symptoms. The blood that is on the patient is from a small abrasion to the right index finger and is controlled at this time. Timing/Duration: 1 Hour Allergies and Home Medications Allergies Coded Allergies: Sulfa (Sulfonamide Antibiotics) (Verified Allergy, Unknown, 08/26/14) morphine (Verified Adverse Reaction, Mild, NAUSEA, 05/19/16) Home Medications Acetaminophen 500 Mg Tablet, 1,000 MG PO Q6H PRN for PAIN-MILD/FEVER Prescribed by: REJI ROY on 08/19/17 1041 Albuterol Sulfate 18 Gm Hfa.aer.ad, 2 PUFF IH Q4H PRN for SHORTNESS OF BREATH Prescribed by: SHANE GALVAN on 12/01/17 1105 Bupropion HCl 150 Mg Tab.er.24h, 450 MG PO DAILY, (Reported) TAKES 3 (150MG) TABLETS Chlorhexidine Gluconate 473 Ml Mouthwash, MM UD PRN for MOUTH SORES, (Reported) Dapagliflozin Propanediol 10 Mg Tablet, 10 MG PO DAILY, (Reported) Glucosamine HCl/Chondr Bentley A Na 1 Each Tablet, 1 TAB PO DAILY, (Reported) Hydroxyzine Pamoate 25 Mg Capsule, 25 MG PO BID PRN for anxiety Prescribed by: SHANE GALVAN on 12/01/17 1058 Insulin Aspart 300 Units/3 Ml Solution, 12 UNITS SQ TIDAC, (Reported) Insulin Degludec 100 Unit/1 Ml Insuln.pen, 60 UNITS SC HS, (Reported) Lactobacillus Acidophilus 1 Each Capsule, 1 CAP PO BID, (Reported) Losartan Potassium 50 Mg Tablet, 50 MG PO DAILY Prescribed by: SHANE GALVAN on 12/01/17 1058 Multivitamin 1 Each Tablet, 1 TAB PO DAILY, (Reported) Pantoprazole Sodium 40 Mg Tablet.dr, 40 MG PO DAILY, (Reported) LAST FILLED #90 07-22-17 Prednisone 10 Mg Tab, 0 PO UD Take 4 tabs (40mg) daily, decrease by 1 tab (10mg) daily. Prescribed by: SHANE GALVAN on 12/01/17 1058 Vit C/E/Zn/Coppr/Lutein/Zeaxan 1 Each Capsule, 1 TAB PO BID, (Reported) Patient Home Medication List Home Medication List Reviewed: Yes Constitutional: no symptoms reported, see HPI EENTM: see HPI, no symptoms reported Respiratory: no symptoms reported, see HPI Cardiovascular: no symptoms reported, see HPI Gastrointestinal: no symptoms reported, see HPI Genitourinary: no symptoms reported, see HPI Musculoskeletal: no symptoms reported, see HPI Skin: no symptoms reported Psychiatric/Neurological: No Symptoms Reported, See HPI Hematologic/Lymphatic: No Symptoms Reported, See HPI Immunological/Allergic: no symptoms reported, see HPI Past Csmurmf-Neuqka-Yldrbx Hx Patient Social History Alcohol Use: Regular Use Number of Drinks Today: GG Alcohol Beverage of Choice: Whiskey Recreational Drug Use: Yes (ALCOHOL) Smoking Status: Former Smoker Type Used: Cigarettes Former Smoker, Quit: Feb 18, 2016 2nd Hand Smoke Exposure: Yes Recent Hopitalizations: Yes Physical Abuse: No Sexual Abuse: No Immunizations Up To Date Tetanus Booster (TDap): Less than 5yrs PED Vaccines UTD: No Date of Pneumonia Vaccine: Aug 31, 2017 Date of Influenza Vaccine: Jul 31, 2017 Seasonal Allergies Seasonal Allergies: Yes Surgeries History of Surgeries: Yes Surgeries: Abdominal, Section, Hysterectomy Respiratory History of Respiratory Disorde: Yes Respiratory Disorders: Pneumonia, COPD Cardiovascular History of Cardiac Disorders: Yes Cardiac Disorders: 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 Neurological History of Neurological Disord: No 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 System Hx 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 Disorders: No Sexually Transmitted Disease: No Genitourinary History of Genitourinary Disor: No Gastrointestinal History of Gastrointestinal Di: Yes Gastrointestinal Disorders: Gastroesophageal Reflux, Hiatal Hernia Musculoskeletal History of Musculoskeletal Dis: Yes Musculoskeletal Disorders: Arthritis Endocrine History of Endocrine Disorders: Yes Endocrine Disorders: Diabetes, Insulin dep HEENT History of HEENT Disorders: Yes HEENT Disorders: Cataract Cancer History of Cancer: No Psychosocial History of Psychiatric Problem: Yes Behavioral Health Disorders: Anxiety Suicide Risk Score: 0 Integumentary History of Skin or Integumenta: No Skin/Integumentary Disorders: Psoriasis Blood Transfusions History of Blood Disorders: No Adverse Reaction to a Blood Tr: No Family Medical History Significant Family History: No Pertinent Family Hx Family Medial History: AIDS Alcoholism Arthritis Asthma Cataracts Coronary thrombosis Diabetes mellitus Drug abuse Glaucoma Psychosocial problem Respiratory disorder No Family History of: Sadiq's disease Alzheimer's disease Aphasia Cancer of mouth Cardiovascular disease Colon cancer Completed stroke Congenital disease Congenital heart disease Cystic fibrosis Deafness or hearing loss Dementia Dysphasia Fibrocystic disease of breast Gastroenteritis Headache disorder Hypercholesterolemia 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 Infertility Kidney disease Myocardial infarction Neoplasm Not obtainable due to adoption Osteoporosis Parkinson's disease Prostate cancer Seizure disorder Severe allergy Thyroid disease Tuberculosis Visual disorder Physical Exam Vital Signs Vital Signs - First Documented 01/19/18 17:10 Temp 97.2 Pulse 100 Resp 16 B/P (MAP) 129/92 (104) Pulse Ox 92 O2 Delivery Nasal Cannula O2 Flow Rate 2.00 Capillary Refill : General Appearance: Obese, Other (sedated) HEENT: PERRL/EOMI, TMs Normal, Normal ENT Inspection, Pharynx Normal Neck: Full Range of Motion, Normal Inspection Respiratory: Chest Non Tender, Lungs Clear, Normal Breath Sounds, No Accessory Muscle Use, No Respiratory Distress Cardiovascular: Regular Rate, Rhythm Gastrointestinal: Normal Bowel Sounds Rectal: Normal Exam, Normal Rectal Tone Genital/Rectal: Normal Genital Exam, Normal Rectal Exam Back: Normal Inspection, No CVA Tenderness Extremity: Normal Capillary Refill, Normal Inspection Neurologic/Psychiatric: No Alert (patient wakes to name.), Oriented x3 (to person and place) Skin: Normal Color, Warm/Dry Comments She does intermittently wake up and will move all extremities Progress/Results/Core Measures Suspected Sepsis SIRS Temperature: Pulse: Respiratory Rate: Laboratory Tests 01/19/18 17:20: White Blood Count 7.5 Blood Pressure / Mean: Laboratory Tests 01/19/18 17:20: Creatinine 0.94, Platelet Count 65L, Total Bilirubin 0.4 Results/Orders Lab Results Laboratory Tests Test 01/19/18 17:20 01/19/18 17:30 Range/Units White Blood Count 7.5 4.3-11.0 10^3/uL Red Blood Count 4.92 4.35-5.85 10^6/uL Hemoglobin 14.4 11.5-16.0 G/DL Hematocrit 41 35-52 % Mean Corpuscular Volume 84 80-99 FL Mean Corpuscular Hemoglobin 29 25-34 PG Mean Corpuscular Hemoglobin Concent 35 32-36 G/DL Red Cell Distribution Width 14.1 10.0-14.5 % Platelet Count 65 L 130-400 10^3/uL Mean Platelet Volume 13.2 H 7.4-10.4 FL Neutrophils (%) (Auto) 71 42-75 % Lymphocytes (%) (Auto) 19 12-44 % Monocytes (%) (Auto) 6 0-12 % Eosinophils (%) (Auto) 4 0-10 % Basophils (%) (Auto) 1 0-10 % Neutrophils # (Auto) 5.4 1.8-7.8 X 10^3 Lymphocytes # (Auto) 1.4 1.0-4.0 X 10^3 Monocytes # (Auto) 0.5 0.0-1.0 X 10^3 Eosinophils # (Auto) 0.3 0.0-0.3 10^3/uL Basophils # (Auto) 0.0 0.0-0.1 10^3/uL Sodium Level 130 L 135-145 MMOL/L Potassium Level 4.0 3.6-5.0 MMOL/L Chloride Level 95 L 98-107 MMOL/L Carbon Dioxide Level 27 21-32 MMOL/L Anion Gap 8 5-14 MMOL/L Blood Urea Nitrogen 15 7-18 MG/DL Creatinine 0.94 0.60-1.30 MG/DL Estimat Glomerular Filtration Rate 60 BUN/Creatinine Ratio 16 Glucose Level 387 H 70-105 MG/DL Calcium Level 9.0 8.5-10.1 MG/DL Total Bilirubin 0.4 0.1-1.0 MG/DL Aspartate Amino Transf (AST/SGOT) 13 5-34 U/L Alanine Aminotransferase (ALT/SGPT) 12 0-55 U/L Alkaline Phosphatase 136 40-136 U/L Total Protein 6.4 6.4-8.2 GM/DL Albumin 3.7 3.2-4.5 GM/DL Serum Alcohol < 10 <10 MG/DL Urine Color YELLOW Urine Clarity CLEAR Urine pH 5 5-9 Urine Specific [place] 1.010 L 1.016-1.022 Urine Protein NEGATIVE NEGATIVE Urine Glucose (UA) 4+ H NEGATIVE Urine Ketones NEGATIVE NEGATIVE Urine Nitrite NEGATIVE NEGATIVE Urine Bilirubin NEGATIVE NEGATIVE Urine Urobilinogen NORMAL NORMAL MG/DL Urine Leukocyte Esterase NEGATIVE NEGATIVE Urine RBC (Auto) NEGATIVE NEGATIVE Urine RBC NONE /HPF Urine WBC NONE /HPF Urine Squamous Epithelial Cells RARE /HPF Urine Crystals NONE /LPF Urine Bacteria NONE /HPF Urine Casts NONE /LPF Urine Mucus NEGATIVE /LPF Urine Culture Indicated NO Urine Opiates Screen NEGATIVE NEGATIVE Urine Oxycodone Screen NEGATIVE NEGATIVE Urine Methadone Screen NEGATIVE NEGATIVE Urine Propoxyphene Screen NEGATIVE NEGATIVE Urine Barbiturates Screen NEGATIVE NEGATIVE Ur Tricyclic Antidepressants Screen POSITIVE H NEGATIVE Urine Phencyclidine Screen NEGATIVE NEGATIVE Urine Amphetamines Screen NEGATIVE NEGATIVE Urine Methamphetamines Screen NEGATIVE NEGATIVE Urine Benzodiazepines Screen POSITIVE H NEGATIVE Urine Cocaine Screen NEGATIVE NEGATIVE Urine Cannabinoids Screen NEGATIVE NEGATIVE My Orders Orders - ANATOLY OBRIEN [employer] Cbc With Automated Diff (01/19/18 17:20) Comprehensive Metabolic Panel (01/19/18 17:20) Ua Culture If Indicated (01/19/18 17:20) Drug Screen Stat (Urine) (01/19/18 17:20) Ct Head/Cervical Spine Wo (01/19/18 17:20) Hopper Cath Insertion (01/19/18 17:20) Knee, Right, 3 Views (01/19/18 17:20) Naloxone Injection (Narcan Injection) (01/19/18 17:30) Ns Iv 1000 Ml (Sodium Chloride 0.9%) (01/19/18 17:30) Saline Lock/Iv-Start (01/19/18 17:22) Chest 1 View, Ap/Pa Only (01/19/18 17:22) Accucheck Stat ONCE (01/19/18 17:22) Alcohol (01/19/18 17:38) Albuterol/Ipra Inhalation Soln (Duoneb I (01/19/18 18:00) Svn Sm Volume Nebulizer Rt-Rfs (01/19/18 17:55) Medications Given in ED Current Medications Medications Dose Ordered Sig/Minal Route Start Time Stop Time Status Last Admin Dose Admin Naloxone HCl 1 mg ONCE ONCE IV 01/19/18 17:30 01/19/18 17:31 DC 01/19/18 17:14 1 MG Vital Signs/I&O Vital Sign - Last 12Hours 01/19/18 17:10 Temp 97.2 Pulse 100 Resp 16 B/P (MAP) 129/92 (104) Pulse Ox 92 O2 Delivery Nasal Cannula O2 Flow Rate 2.00 Capillary Refill : Departure Communication (Admissions) Time/Spoke to Admitting Phy: 18:31 Communication I spoke with Dr. Daniella shane formerly [facility], [facility], agrees to admit the patient, observation. Progress Notes 1830- remains excessively sedated. There was no improvement after the administration of Narcan. She does awaken to pain has confused words and withdraws from pain which gives her GCS of 10. Impression Impression: Primary Impression: Type 2 diabetes mellitus, with long-term current use of insulin Additional Impression: Altered mental status Disposition: ADMITTED INPATIENT Condition: Stable Admissions Decision to Admit Reason: Admit from ER (General) Decision to Admit/Date: Jan 19, 2018 Time/Decision to Admit Time: 18:31 Departure-Patient Inst. Referrals: REJI ROY MD (PCP/Family) Primary Care Physician ANATOLY OBRIEN APRN Jan 19, 2018 17:54
[2018-01-19] MEDS ORDERED: RT-ALBUTEROL/IPRATROPIUM 3 ML (DUONEB) VIAL INH ONE (18:00)
[2018-01-19 18:02] LABS: BASOPHILS % (AUTO) 1 % (0-10); EOSINOPHILS # (AUTO) 0.3 10^3/uL (0.0-0.3); EOSINOPHILS % (AUTO) 4 % (0-10); HEMATOCRIT 41 % (35-52); HEMOGLOBIN 14.4 G/DL (11.5-16.0); LYMPHOCYTES # (AUTO) 1.4 X 10^3 (1.0-4.0); LYMPHOCYTES % (AUTO) 19 % (12-44); MEAN CORPUSCULAR HEMOGLOBIN 29 PG (25-34); MEAN CORPUSCULAR HGB CONC 35 G/DL (32-36); MEAN CORPUSCULAR VOLUME 84 FL (80-99); MEAN PLATELET VOLUME 13.2 FL (7.4-10.4); MONOCYTES # (AUTO) 0.5 X 10^3 (0.0-1.0); MONOCYTES % (AUTO) 6 % (0-12); NEUTROPHILS # (AUTO) 5.4 X 10^3 (1.8-7.8); NEUTROPHILS % (AUTO) 71 % (42-75); PLATELET COUNT 65 10^3/uL (130-400); RED BLOOD COUNT 4.92 10^6/uL (4.35-5.85); RED CELL DISTRIBUTION WIDTH 14.1 % (10.0-14.5); WHITE BLOOD COUNT 7.5 10^3/uL (4.3-11.0)
--- NOTE | 2018-01-19 18:08 | Diagnostic Imaging Report ---
EXAMINATION: Chest radiograph, portable AP view. DATE: 01/19/2018 at 1751 hours. INDICATION: 63-year-old female, fall. Lethargy. COMPARISON: 12/01/2017. FINDINGS: There are low lung volumes with associated central bronchovascular crowding. Heart size and mediastinal contours appear grossly unchanged. There is no identified pneumothorax. There is no large pleural effusion. There do appear to be bilateral interstitial opacities. There are surgical clips overlying the left upper quadrant. IMPRESSION: 1. Low lung volumes with associated central bronchovascular crowding. 2. Bilateral interstitial opacities which may potentially reflect pulmonary interstitial edema. Atypical infection is the primary differential diagnostic consideration. Dictated by: Dictated on workstation # [id number]
--- NOTE | 2018-01-19 18:10 | Diagnostic Imaging Report ---
PROCEDURE: CT head and CT cervical spine without contrast. TECHNIQUE: Multiple contiguous axial images were obtained through the brain and cervical spine without the use of intravenous contrast. Sagittal and coronal reformations through the cervical spine were then performed. INDICATION: Fall, head and neck pain. COMPARISON: 11/28/2017 FINDINGS: CT HEAD: The ventricles and cortical sulci are diffusely prominent. There is no midline shift or mass effect. No acute intracranial hemorrhage is seen. There is no CT evidence of acute territorial ischemia. There are focal areas of white matter hypoattenuation likely from chronic microvascular disease. Multiple calcifications are seen along the dura. There is calcific atherosclerosis. Small mucous retention cyst is seen in the left maxillary sinus with mild mucosal thickening in the left sphenoid sinus, otherwise the paranasal sinuses appear clear. CT CERVICAL SPINE: No acute fracture or malalignment is seen in the cervical spine. There are mild multilevel degenerative changes throughout the cervical spine, most pronounced at C5-6. No bony fragments or hyperdense fluid collections are seen in the spinal canal. The vertebral body heights are preserved. The prevertebral soft tissues are unremarkable. There is mild enlargement in a calcified nodule in the left thyroid lobe, which appear stable since the prior study. The soft tissues of the neck are otherwise unremarkable. IMPRESSION: 1. No acute intracranial hemorrhage or calvarium fracture seen. No CT evidence of acute territorial ischemia. 2. No acute osseous abnormality seen in the cervical spine. Dictated by: Dictated on workstation # [id number]
--- NOTE | 2018-01-19 18:11 | Diagnostic Imaging Report ---
PATIENT HISTORY: Fall, right knee pain. TECHNIQUE: Three views of the right knee. COMPARISON: 08/22/2017. FINDINGS: No acute fracture or dislocation is seen in the right knee. Alignment appears normal. There is moderate joint space loss with osteophytes at the medial compartment. Mild degenerative change is seen at the patellofemoral compartment as well. No large right knee joint effusion is seen, although the knee is in full extension. IMPRESSION: Degenerative changes in the right knee with no acute osseous abnormality seen. Dictated by: Dictated on workstation # [id number]
[2018-01-19 18:19] LABS: ALANINE AMINOTRANSFERASE 12 U/L (0-55); ALBUMIN 3.7 GM/DL (3.2-4.5); ALKALINE PHOSPHATASE 136 U/L (40-136); BILIRUBIN,TOTAL 0.4 MG/DL (0.1-1.0); BUN/CREATININE RATIO 16; CARBON DIOXIDE 27 MMOL/L (21-32); CHLORIDE 95 MMOL/L (98-107); CREATININE SERUM 0.94 MG/DL (0.60-1.30); GFR ESTIMATED 60; GLUCOSE 387 MG/DL (70-105); SODIUM 130 MMOL/L (135-145); TOTAL PROTEIN 6.4 GM/DL (6.4-8.2)
[2018-01-19] MEDS ORDERED: inSUlin (REGULAR) HUMAN 1 UNIT/0.01 ML (CHARGE PER UNIT) SC ONE ×2 (18:45)
[2018-01-19 20:33] VITALS: BP 145/81
[2018-01-19] MEDS ORDERED: NS IV 1000 ML 1,000 ML ONE (21:17)
[2018-01-19] MEDS: NS IV 1000 ML 1,000 ML IV SCH (21:32)
[2018-01-20] VITALS: BP 168/83
[2018-01-20 04:00] VITALS: BP 163/75
[2018-01-20 04:19] LABS: BASOPHILS % (AUTO) 0 % (0-10); EOSINOPHILS # (AUTO) 0.3 10^3/uL (0.0-0.3); EOSINOPHILS % (AUTO) 5 % (0-10); HEMATOCRIT 43 % (35-52); HEMOGLOBIN 14.9 G/DL (11.5-16.0); LYMPHOCYTES # (AUTO) 1.6 X 10^3 (1.0-4.0); LYMPHOCYTES % (AUTO) 24 % (12-44); MEAN CORPUSCULAR HEMOGLOBIN 29 PG (25-34); MEAN CORPUSCULAR HGB CONC 35 G/DL (32-36); MEAN CORPUSCULAR VOLUME 85 FL (80-99); MEAN PLATELET VOLUME 12.7 FL (7.4-10.4); MONOCYTES # (AUTO) 0.5 X 10^3 (0.0-1.0); MONOCYTES % (AUTO) 7 % (0-12); NEUTROPHILS # (AUTO) 4.5 X 10^3 (1.8-7.8); NEUTROPHILS % (AUTO) 65 % (42-75); PLATELET COUNT 60 10^3/uL (130-400); RED BLOOD COUNT 5.06 10^6/uL (4.35-5.85); RED CELL DISTRIBUTION WIDTH 14.1 % (10.0-14.5); WHITE BLOOD COUNT 6.9 10^3/uL (4.3-11.0)
[2018-01-20 04:36] LABS: ALANINE AMINOTRANSFERASE 12 U/L (0-55); ALBUMIN 3.5 GM/DL (3.2-4.5); ALKALINE PHOSPHATASE 137 U/L (40-136); BILIRUBIN,TOTAL 0.4 MG/DL (0.1-1.0); BUN/CREATININE RATIO 16; CALCIUM 8.7 MG/DL (8.5-10.1); CARBON DIOXIDE 24 MMOL/L (21-32); CHLORIDE 104 MMOL/L (98-107); GFR ESTIMATED > 60; GLUCOSE 231 MG/DL (70-105); POTASSIUM 3.8 MMOL/L (3.6-5.0); SODIUM 137 MMOL/L (135-145); TOTAL PROTEIN 6.2 GM/DL (6.4-8.2)
[2018-01-20] MEDS: inSUlin (REGULAR) HUMAN 1 UNIT/0.01 ML (CHARGE PER UNIT) SC SCH ×2 (05:01→13:07)
[2018-01-20 08:00] VITALS: BP 165/86
--- NOTE | 2018-01-20 08:05 | Diagnostic Imaging Report ---
INDICATION: Altered mental status 0425 hours Portable upright AP view of the chest is obtained with comparison made to the study of 01/19/2018. There is suboptimal inspiration similar to previous examination. There is no evidence of pneumothorax, consolidation or other adverse change. IMPRESSION: Hypoventilation which limits evaluation. Otherwise, no new abnormality or adverse change is seen. Dictated by: Dictated on workstation # [id number]
[2018-01-20] MEDS: NS IV 1000 ML 1,000 ML IV SCH (10:04)
[2018-01-20] MEDS ORDERED: LOSA50TA36 PO (10:16)
[2018-01-20] MEDS ORDERED: RT-ALBUINH IH (10:16)
[2018-01-20] MEDS ORDERED: AMIT25TA9 PO (10:28)
[2018-01-20 12:00] VITALS: BP 121/89
[2018-01-20] MEDS ORDERED: ACETAMINOPHEN 500 MG TAB (TYLENOL) PO PRN (14:45)
--- NOTE | 2018-01-20 15:37 | Short Stay Summary ---
History of Present Illness History of Present Illness Reason for visit/HPI Patient is a 63-year-old female who is brought in by [facility]. EMS was dispatched for unresponsive person covered in blood. On arrival patient appears sedated, patient is oriented to place and name. Narcan was given on arrival to the emergency room without improvement of symptoms. The blood that is on the patient is from a small abrasion to the right index finger and is controlled at this time. Patient was evaluated in the ED and had negative workup for any acute abnormalities, other than urine tox screen positive for benzodiazepines, which patient does not have a prescription for. After her extensive workup in the ED , the patient was still somewhat somnolent with a GCS of 10, and was placed in observation overnight for monitoring and while she wakes up from what is currently a presumed benzodiazepine overdose. Per records review, it appears that patient has previously been admitted to the facility with similar symptoms and similar cause - benzodiazepine overdose - has been found. Date of Admission Jan 19, 2018 at 19:27 Date of Discharge 01/20/18 Time Seen by Provider: 15:24 Attending Physician Blanca Awad DO Admitting Physician Reji Mendes MD Consult Allergies and Home Medications Allergies Coded Allergies: Sulfa (Sulfonamide Antibiotics) (Verified Allergy, Unknown, 08/26/14) morphine (Verified Adverse Reaction, Mild, NAUSEA, 05/19/16) Home Medications Acetaminophen 500 Mg Tablet, 1,000 MG PO Q6H PRN for PAIN-MILD/FEVER Prescribed by: REJI MENDES on 08/19/17 1041 Albuterol Sulfate 1 Puff Puff, 2 PUFF IH Q4H PRN for SHORTNESS OF BREATH, ( Reported) 1 PUFF = 90 MCG Amitriptyline HCl 25 Mg Tablet, 25 MG PO DAILY, (Reported) LAST FILLED #30 12-09-17 Bupropion HCl 150 Mg Tab.er.24h, 450 MG PO DAILY, (Reported) LAST FILLED 90 TABLETS (30 DAYS) 11-23-17 TAKES 3 (150MG) TABLETS Chlorhexidine Gluconate 473 Ml Mouthwash, MM QID PRN for MOUTH SORES, (Reported) LAST FILLED 473ML 09-26-17 Dapagliflozin Propanediol 10 Mg Tablet, 10 MG PO DAILY, (Reported) LAST FILLED #90 10-06-17 Glucosamine HCl/Chondr Bentley A Na 1 Each Tablet, 1 TAB PO DAILY, (Reported) Insulin Aspart 300 Units/3 Ml Solution, 12 UNITS SQ TIDAC, (Reported) Insulin Degludec 100 Unit/1 Ml Insuln.pen, 60 UNITS SC HS, (Reported) Lactobacillus Acidophilus 1 Each Capsule, 1 CAP PO BID, (Reported) Losartan Potassium 50 Mg Tablet, 50 MG PO DAILY, (Reported) LAST FILLED #30 12-01-17 Multivitamin 1 Each Tablet, 1 TAB PO DAILY, (Reported) Pantoprazole Sodium 40 Mg Tablet.dr, 40 MG PO DAILY, (Reported) LAST FILLED #90 07-22-17 Vit C/E/Zn/Coppr/Lutein/Zeaxan 1 Each Capsule, 1 TAB PO BID, (Reported) Patient Home Medication List Home Medication List Reviewed: Yes Past Miatkhk-Rqwmwx-Oitoiz Hx Patient Social History Marrital Status: single Living Status: lives with daughter Employed/Student: unemployed (lives with daughter) Alcohol Use: Occasionally Uses Number of Drinks Today: 0 Alcohol Beverage of Choice: Whiskey Recreational Drug Use: Yes (alcohol, unprescribed benzodiazepines) Drug of Choice: PT DENIES Smoking Status: Current Everyday Smoker Former Smoker, Quit: Feb 18, 2016 Type Used: Cigarettes 2nd Hand Smoke Exposure: Yes Physical Abuse Screen: No Sexual Abuse: No Recent Foreign Travel: No Contact w/other who traveled: No Recent Hopitalizations: Yes Recent Infectious Disease Expo: No Immunizations Up To Date Tetanus Booster (TDap): Less than 5yrs Pediatric: No Date of Pneumonia Vaccine: Aug 31, 2017 Date of Influenza Vaccine: Jul 31, 2017 Seasonal Allergies Seasonal Allergies: Yes Surgeries Yes Abdominal (vertical gastroplasty), Section, Hysterectomy, Orthopedic Respiratory Yes COPD, Pneumonia Currently Using CPAP: No Currently Using BIPAP: No Cardiovascular Yes 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 Neurological No 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 System : No Hx 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 Disorders: No Sexually Transmitted Disease: No HIV/AIDS: No Female 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 Disorders: Denies QUIRK SANDER History: Hysterectomy, Menopausal Genitourinary No Gastrointestinal Yes Gastroesophageal Reflux, Hiatal Hernia Musculoskeletal Yes Arthritis Endocrine History of Endocrine Disorders: Yes Endocrine Disorders: Diabetes, Insulin dep Are Your Blood Sugars Over 250: Yes HEENT History of HEENT Disorders: Yes HEENT Disorders: Cataract Hearing Impairment: Denies Cancer No Psychosocial History of Psychiatric Problem: Yes Behavioral Health Disorders: ADD/ADHD, Eating Disorder, Anxiety, Depression Integumentary History of Skin or Integumenta: Yes Skin/Integumentary Disorders: Psoriasis Blood Transfusions History of Blood Disorders: No Adverse Reaction to a Blood Tr: No Reviewed Nursing Assessment Reviewed/Agree w Nursing PMH: Yes Family Medical History Family Hx: AIDS Alcoholism Arthritis Asthma Cataracts Coronary thrombosis Diabetes mellitus Drug abuse Glaucoma Psychosocial problem Respiratory disorder No Family History of: Sadiq's disease Alzheimer's disease Aphasia Cancer of mouth Cardiovascular disease Colon cancer Completed stroke Congenital disease Congenital heart disease Cystic fibrosis Deafness or hearing loss Dementia Dysphasia Fibrocystic disease of breast Gastroenteritis Headache disorder Hypercholesterolemia 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 Infertility Kidney disease Myocardial infarction Neoplasm Not obtainable due to adoption Osteoporosis Parkinson's disease Prostate cancer Seizure disorder Severe allergy Thyroid disease Tuberculosis Visual disorder ROS-Unable to Obtain: unable to obtain on admission due to unresponsiveness Constitutional: see HPI Physical Exam Vital Signs Vital Signs - First Documented 01/19/18 17:10 Temp 97.2 Pulse 100 Resp 16 B/P (MAP) 129/92 (104) Pulse Ox 92 O2 Delivery Nasal Cannula O2 Flow Rate 2.00 Capillary Refill : Less Than 3 Seconds General Appearance: No Apparent Distress, WD/WN, Anxious, Chronically ill, Obese Eyes: Bilateral Eye Normal Inspection, Bilateral Eye PERRL, Bilateral Eye EOMI HEENT: PERRL/EOMI, Normal ENT Inspection, Moist Mucous Membranes, Photophobia Neck: Full Range of Motion, Normal Inspection, Non Tender, Supple Respiratory: Chest Non Tender, Normal Breath Sounds, No Accessory Muscle Use, No Respiratory Distress Cardiovascular: Regular Rate, Rhythm, No Gallop, No JVD Gastrointestinal: Normal Bowel Sounds, No Organomegaly, No Pulsatile Mass, Non Tender, Soft Rectal: Deferred Extremity: Normal Capillary Refill, Normal Inspection, Normal Range of Motion, Non Tender, No Calf Tenderness Neurologic/Psychiatric: Alert, Oriented x3, No Motor/Sensory Deficits, Normal Mood/Affect, local telephone operator II-XII Norm as Tested Skin: Normal Color, Warm/Dry Lymphatic: No Adenopathy Clinical Quality Measures DVT/VTE Risk/Contraindication: Risk Factor Score Per Nursin RFS Level Per Nursing on Admit: 4+=Very High Short Stay Diagnosis Discharge Diagnosis-Short Stay Admission Diagnosis: Altered Mental Status Final Discharge Diagnosis: Altered Mental Status Benzodiazepine Abuse Medical Noncompliance Anxiety Depression Type II Diabetes, Insulin Dependent Alcohol Abuse Obesity Conclusion Labs Laboratory Tests 01/19/18 17:20: White Blood Count 7.5, Red Blood Count 4.92, Hemoglobin 14.4, Hematocrit 41, Mean Corpuscular Volume 84, Mean Corpuscular Hemoglobin 29, Mean Corpuscular Hemoglobin Concent 35, Red Cell Distribution Width 14.1, Platelet Count 65L, Mean Platelet Volume 13.2H, Neutrophils (%) (Auto) 71, Lymphocytes (%) (Auto) 19 , Monocytes (%) (Auto) 6, Eosinophils (%) (Auto) 4, Basophils (%) (Auto) 1, Neutrophils # (Auto) 5.4, Lymphocytes # (Auto) 1.4, Monocytes # (Auto) 0.5, Eosinophils # (Auto) 0.3, Basophils # (Auto) 0.0, Sodium Level 130L, Potassium Level 4.0, Chloride Level 95L, Carbon Dioxide Level 27, Anion Gap 8, Blood Urea Nitrogen 15, Creatinine 0.94, Estimat Glomerular Filtration Rate 60, BUN/ Creatinine Ratio 16, Glucose Level 387H, Calcium Level 9.0, Total Bilirubin 0.4 , Aspartate Amino Transf (AST/SGOT) 13, Alanine Aminotransferase (ALT/SGPT) 12, Alkaline Phosphatase 136, Total Protein 6.4, Albumin 3.7, Serum Alcohol < 10 01/19/18 17:30: Urine Color YELLOW, Urine Clarity CLEAR, Urine pH 5, Urine Specific [place] 1.010L, Urine Protein NEGATIVE, Urine Glucose (UA) 4+H, Urine Ketones NEGATIVE, Urine Nitrite NEGATIVE, Urine Bilirubin NEGATIVE, Urine Urobilinogen NORMAL, Urine Leukocyte Esterase NEGATIVE, Urine RBC (Auto) NEGATIVE, Urine RBC NONE, Urine WBC NONE, Urine Squamous Epithelial Cells RARE, Urine Crystals NONE, Urine Bacteria NONE, Urine Casts NONE, Urine Mucus NEGATIVE, Urine Culture Indicated NO, Urine Opiates Screen NEGATIVE, Urine Oxycodone Screen NEGATIVE, Urine Methadone Screen NEGATIVE, Urine Propoxyphene Screen NEGATIVE, Urine Barbiturates Screen NEGATIVE, Ur Tricyclic Antidepressants Screen POSITIVEH, Urine Phencyclidine Screen NEGATIVE, Urine Amphetamines Screen NEGATIVE, Urine Methamphetamines Screen NEGATIVE, Urine Benzodiazepines Screen POSITIVEH, Urine Cocaine Screen NEGATIVE, Urine Cannabinoids Screen NEGATIVE 01/19/18 18:42: Glucometer 300H 01/20/18 03:35: White Blood Count 6.9, Red Blood Count 5.06, Hemoglobin 14.9, Hematocrit 43, Mean Corpuscular Volume 85, Mean Corpuscular Hemoglobin 29, Mean Corpuscular Hemoglobin Concent 35, Red Cell Distribution Width 14.1, Platelet Count 60L, Mean Platelet Volume 12.7H, Neutrophils (%) (Auto) 65, Lymphocytes (%) (Auto) 24 , Monocytes (%) (Auto) 7, Eosinophils (%) (Auto) 5, Basophils (%) (Auto) 0, Neutrophils # (Auto) 4.5, Lymphocytes # (Auto) 1.6, Monocytes # (Auto) 0.5, Eosinophils # (Auto) 0.3, Basophils # (Auto) 0.0, Sodium Level 137, Potassium Level 3.8, Chloride Level 104, Carbon Dioxide Level 24, Anion Gap 9, Blood Urea Nitrogen 13, Creatinine 0.80, Estimat Glomerular Filtration Rate > 60, BUN/ Creatinine Ratio 16, Glucose Level 231H, Calcium Level 8.7, Total Bilirubin 0.4 , Aspartate Amino Transf (AST/SGOT) 12, Alanine Aminotransferase (ALT/SGPT) 12, Alkaline Phosphatase 137H, Total Protein 6.2L, Albumin 3.5 01/20/18 13:00: Glucometer 217H Conclusion/Plan Patient was placed in the observation in the ICU due to her altered mental status; based on review of nursing notes, approximately one hour after arrival to unit, patient was pulling at her nasal trumpet and demanding food. She was given food and her nasal trumpet was removed. She continued to remain awake and alert overnight and throughout the morning. When seen this afternoon, and asked what she took, the patient reports that she had some old valium 5 mg tablets at home and she was feeling anxious and took one. But she reports that she "takes those all the time' and so she doesn't know why this happened currently. The patient reports that she and her family both thing that she was doing much better when she was on Xanax 1 mg TID, with 2 mg at HS and she would like to restart that. Discussed with patient that we would most definitely not be prescribing her any benzodiazepines on discharge today, as she was taking them inappropriately at home and it landed her in the ICU for monitoring. 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 Explained that while I was quite sympathetic to that, I still was not willing to discharge her on benzodiazepines, and would recommend that she not be prescribed short acting xanax. Patient denied any thoughts of harm to self or others. Discussed that patient had an appt scheduled for Tuesday with Dr. Mendes, her PCP, and she could discuss her options with her at that time, although I expected that Dr. Mendes would be in agreement that the patient was not a good candidate for short acting benzodiazepine therapy (or really any benzos at all), but she should express her concerns about her anxiety and depression to Dr. Mendes and they could come up with a plan. There are also behavioral health services available at the clinic, and the patient would likely benefit from these as well , which will be addressed by Dr. Mendes on Tuesday. Patient is awake and alert and has been since ~2130 last night She denies thoughts of harming self or others, and I will discharge her to home She was sternly reminded that she should not be taking any medications that are not on her discharge paperwork. She is to keep her follow up appt as scheduled, at [address] Mendes. Copy Copies To 1: REJI MENDES MD, MARGARET E DO Jan 20, 2018 15:37
--- NOTE | 2018-01-20 15:45 | Discharge Instructions ---
Discharge [facility] Discharge Medications New, Converted or Re-Newed RX: Other (no medication changes) Continued Medications: Acetaminophen (Acetaminophen) 500 Mg Tablet 1000 MG PO Q6H PRN for PAIN-MILD/FEVER for 30 Days, TAB Albuterol Sulfate (Ventolin Hfa) 1 Puff Puff 2 PUFF IH Q4H PRN for SHORTNESS OF BREATH, PUFF 1 PUFF = 90 MCG Amitriptyline HCl (Amitriptyline HCl) 25 Mg Tablet 25 MG PO DAILY, TAB LAST FILLED #30 12-09-17 Bupropion HCl (Bupropion Xl) 150 Mg Tab.er.24h 450 MG PO DAILY, TAB LAST FILLED 90 TABLETS (30 DAYS) 11-23-17 TAKES 3 (150MG) TABLETS Chlorhexidine Gluconate (Chlorhexidine Gluconate) 473 Ml Mouthwash MM QID PRN for MOUTH SORES, EA LAST FILLED 473ML 09-26-17 Dapagliflozin Propanediol (Farxiga) 10 Mg Tablet 10 MG PO DAILY, TAB LAST FILLED #90 10-06-17 Glucosamine HCl/Chondr Bentley A Na (Osteo Bi-Flex Caplet) 1 Each Tablet 1 TAB PO DAILY, TAB Insulin Aspart (Novolog Flexpen) 300 Units/3 Ml Solution 12 UNITS SQ TIDAC, EA Insulin Degludec (Tresiba Flextouch U-100) 100 Unit/1 Ml Insuln.pen 60 UNITS SC HS, EA Lactobacillus Acidophilus (Probiotic) 1 Each Capsule 1 CAP PO BID, CAP Losartan Potassium (Losartan Potassium) 50 Mg Tablet 50 MG PO DAILY, TAB LAST FILLED #30 12-01-17 Multivitamin (Daily Multiple Vitamin) 1 Each Tablet 1 TAB PO DAILY, TAB Pantoprazole Sodium (Pantoprazole Sodium) 40 Mg Tablet.dr 40 MG PO DAILY, TAB LAST FILLED #90 07-22-17 Vit C/E/Zn/Coppr/Lutein/Zeaxan (Preservision Areds 2 Softgel) 1 Each Capsule 1 TAB PO BID, CAP Patient Instructions Patient Instructions -DO NOT TAKE MEDICATIONS NOT LISTED ON THIS FORM -DO NOT TAKE OLD MEDICATIONS -DO NOT TAKE MEDICATIONS NOT PRESCRIBED TO YOU -keep follow up appts Goal/Follow Up Appt: Dr. Mendes 01/23/18 at 10 AM Return to The Hospital For: chest pain or pressure, shortness of breath out of normal for patient, nausea or vomiting that makes you unable to keep down clear liquids for more than 12 hours, temp >101 not improved with tylenol or motrin, if directed by money laundering investigator provider, or any other emergent complaints or concerns Activity & Diet Discharge Diet: ADA Diet Activity as Tolerated: Yes Copy Copies To 1: REJI MENDES MD, MARGARET E DO Jan 20, 2018 15:45
[2018-01-20 17:25] VITALS: BP 121/89
== END 2018-01-20 17:25 | disposition home or self-care (01) ==
LOC: EDUNIT# 17:08 → ER 17:08 → ICU 19:27
PROVIDERS: ADMIT Family Medicine; ATTEND Family Medicine
DX: T42.4X1A Poisoning by benzodiazepines, accidental (unintentional), initial encounter (principal); E11.9 Type 2 diabetes mellitus without complications; J44.9 Chronic obstructive pulmonary disease, unspecified; K21.9 Gastro-esophageal reflux disease without esophagitis; Z88.2 Allergy status to sulfonamides; Z88.5 Allergy status to narcotic agent; Z87.891 Personal history of nicotine dependence; Z79.4 Long term (current) use of insulin; Z79.899 Other long term (current) drug therapy; F41.9 Anxiety disorder, unspecified; F32.9 Major depressive disorder, single episode, unspecified; F90.9 Attention-deficit hyperactivity disorder, unspecified type; Z91.19 Patient's noncompliance with other medical treatment and regimen; E66.9 Obesity, unspecified
CPT/HCPCS: 36415; 70450; 71045; 72125; 73562; 80053; 80306; 80320; 81000; 82962; 85025; 96361; 96372; 96374

== ENCOUNTER 2018-05-10 03:09 | Emergency (ER) | payer MEDICARE ==
[~2018-05-10] VITALS: Ht 165.1 cm; Wt 108.9 kg
[~2018-05-10 03:09] MED LIST changes: +AMIT25TA9 PO; +RT-ALBUINH IH
[2018-05-10 03:15] VITALS: BP 187/98
--- OUTSIDE RECORDS SUMMARY | 2018-05-10 03:19 | XMS REPORT ---
Author Author VASILE PORTILLO 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 201726259 Problem Psoriatic arthritis L40.50 Active 563341089 Problem Psychophysiological insomnia F51.04 Active 24820415 Problem Other specified 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 Active 932846267 Problem Obesity (BMI 30-39.9) E66.9 Active 840648282 Problem Major depressive disorder, recurrent, moderate F33.1 Active 96875214 Problem Essential hypertension I10 Active 12148948 Problem Type 2 diabetes mellitus with hyperglycemia E11.65 Active 983555706949065 Problem Alcoholism F10.20 Active 5451869 Problem Frequent falls R29.6 Active 298873107 Problem Benzodiazepine abuse F13.10 Active 584057248 Problem PTSD (post-traumatic stress disorder) F43.10 Active 26632016 Problem Eating disorder F50.9 Active 30201928 Problem Attention-deficit hyperactivity disorder, combined type F90.2 Active 86914105 Problem COPD exacerbation J44.1 Active 591135306 Problem Anxiety F41.9 Active 85904328 Problem Decubitus ulcer of left buttock, stage 2 L89.322 Active 042354873 Problem BMI 40.0-44.9, adult Z68.41 Active 352726716 Problem Alcohol abuse F10.10 Active 42245346 Problem Pneumonia due to methicillin resistant Staphylococcus aureus, unspecified laterality, unspecified part of lung J15.212 Active 717475583425316 Problem Type 2 diabetes mellitus with unspecified complications E11.8 Active 04386951 Problem Attention-deficit hyperactivity disorder, predominantly hyperactive type F90.1 Active 099780810 Problem Type 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 Active 23930978 Problem Ulcer of right foot, unspecified ulcer stage L97.519 Active 01805617 Problem Attention deficit R41.840 Active 67215552 Problem Mental disorder, not otherwise specified F99 Active 03898360 Problem Insomnia due to other mental disorder F51.05 Active 24373322 ALLERGIES No Information ENCOUNTERS Encounter Location Date Diagnosis [facility] [address] [address] Mar, [facility] [id number] [place] [address] 74064- 0550 Mar, [facility] [id number] [place] [address] 77402- 5262 February, Yeast infection B37.9 [facility] [id number] [place] [address] 17358- 0839 February, [facility] [id number] [place] [address] 52551- 7929 Jan, [facility] [id number] [place] [address] 93363- 1081 Dec, Major depressive disorder, recurrent episode, unspecified severity F33.9 ; Generalized anxiety disorder F41.1 and Eating disorder F50.9 [facility] [address] [address]71 Dec, [facility] [id number] [place] [address] 51748- 6260 Dec, [facility] [id number] [place] [address] 82374- 5818 Dec, [facility] [id number] [place] [address] 37544- 2695 Dec, Increased urinary frequency R35.0 ; Frequent falls R29.6 ; Decubitus ulcer of left buttock, stage 2 L89.322 ; Benzodiazepine abuse F13.10 ; BMI 40.0-44.9, adult Z68.41 and Yeast infection B37.9 [facility] [address] [address] Dec, [facility] [id number] [place] [address] 78166- 6496 Dec, [facility] [id number] [place] [address] 10649- 3152 Dec, Increased urinary frequency R35.0 [facility] [id number] [place] [address] 66364- 8626 Dec, Increased urinary frequency R35.0 [facility] [id number] [place] [address] 51347- 2987 Dec, Generalized anxiety disorder F41.1 ; Major depressive disorder, recurrent, moderate F33.1 and Psychophysiological insomnia F51.04 [facility] [address] [place] [address] 07186- 3537 Dec, BMI 40.0-44.9, adult Z68.41 ; Type 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 ; Pneumonia due to methicillin resistant Staphylococcus aureus, unspecified laterality, unspecified part of lung J15.212 and COPD exacerbation J44.1 [facility] [address] [address] Dec, [facility] [id number] [place] [address] [id number] Dec, [facility] [id number] [place] [address] [id number] Oct, [facility] [address] [address] Oct, Frequency of urination R35.0 ; Bronchitis J40 and BMI 40.0- 44.9, adult Z68.41 [facility] [id number] [address] Oct, [facility] [id number] [place] [address] 39257- 8576 Oct, [facility] [id number] [place] [address] 79679- 9407 Oct, BMI 40.0-44.9, adult Z68.41 ; Type 2 diabetes mellitus with hyperglycemia E11.65 ; Essential hypertension I10 ; Vaginal yeast infection B37.3 ; Anxiety F41.9 and Alcoholism F10.20 [facility] [id number] [place] [address] 51362- 6410 Oct, [facility] [id number] [place] [address] 02466- 4384 Oct, [facility] [id number] [place] [address] 42822- 5855 Sep, [facility] [id number] [place] [address] 78642- 2853 Sep, Major depressive disorder, recurrent episode, unspecified severity F33.9 ; Generalized anxiety disorder F41.1 and Eating disorder F50.9 [facility] [address] [address] 74[address] Sep, Major depressive disorder, recurrent, moderate F33.1 ; Type 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 ; Alcohol abuse F10.10 ; Obesity (BMI 30-39.9) E66.9 and Psychophysiological insomnia F51.04 [facility] [address] [place] [address] 33111- 9343 06 Sep, 2017 Diabetes E11.9 and Generalized anxiety disorder F41.1 [facility] [address] [place] [address] 50218- 4079 05 Sep, 2017 Major depressive disorder, recurrent episode, unspecified severity F33.9 ; Generalized anxiety disorder F41.1 and Eating disorder F50.9 [id number] [address] 97[address] Sep, [facility] [id number] [place] [address] 04561- 5061 Aug, [facility] [id number] [place] [address] 35616- 5933 Aug, Insomnia due to other mental disorder F51.05 ; Mental disorder, not otherwise specified F99 ; Attention deficit R41.840 ; Ulcer of right foot, unspecified ulcer stage L97.519 ; Cough R05 ; Diabetes E11.9 ; Sore in mouth K13.79 ; Generalized anxiety disorder F41.1 ; Major depressive disorder , recurrent episode, unspecified severity F33.9 and BMI 40.0-44.9, adult Z68.41 [facility] [id number] [place] [address] 81191- 3386 Aug, [facility] [id number] [place] [address] 96945- 6945 Aug, [facility] [id number] [place] [address] 88664- 6536 Aug, [facility] [id number] [place] [address] 40897- 1892 Aug, [facility] [address] [place] [address] 22793- 4778 Aug, Diabetes E11.9 [facility] [address] [place] [id number] Aug, Falling R29.6 ; Alcohol abuse F10.10 ; Major depressive disorder, recurrent episode, unspecified severity F33.9 ; 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 I10 ; Type 2 diabetes mellitus with unspecified complications E11.8 and 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 [facility] [id number] [place] [address] [id number] 13 Aug, 2017 [address] [employer] [address] [place] [id number] Aug, Alcohol abuse F10.10 ; Major depressive disorder, recurrent episode, unspecified severity F33.9 ; Generalized anxiety disorder F41.1 ; MCFP 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 ; Psoriatic arthritis L40.50 and Diabetes E11.9 [facility] [id number] [place] [address] [id number] Aug, [facility] [id number] [id number] Jul, [facility] [address] [place] [address] 42636- 9792 Jul, [facility] [address] [place] [address] 95312- 5823 Jul, Generalized anxiety disorder F41.1 [facility] [address] [place] [address] 28643- 3402 Jul, [facility] [address] [place] [address] 04502- 0169 Jul, [facility] [id number] [place] [address] 45189- 8246 Jul, Generalized anxiety disorder F41.1 ; Major depressive disorder, recurrent episode, unspecified severity F33.9 ; PTSD (post-traumatic stress disorder) F43.10 ; Eating disorder F50.9 and Attention-deficit hyperactivity disorder, predominantly hyperactive type F90.1 [facility] [address] [address] 5097 Jul, [facility] [address] [address]- 9422 Jul, [facility] [address] [address]- 4886 Jul, [facility] 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 ; Type 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 ; Urinary tract infection, site not specified N39.0 ; Sepsis, unspecified organism A41.9 and Essential hypertension I10 [facility] [id number] [id number] Jul, [facility] [address] [address] 27 Jul, 2017 [facility] [id number] [place] [address] 08803- 2620 Jul, Generalized anxiety disorder F41.1 [facility] [id number] [place] [address] 74761- 4588 15 Jul, 2017 [facility] [id number] [place] [address] 28234- 7274 Jul, Generalized anxiety disorder F41.1 [facility] [id number] [place] [address] 33304- 3675 May, Generalized anxiety disorder F41.1 ; Major depressive disorder, recurrent episode, unspecified severity F33.9 ; PTSD (post-traumatic stress disorder) F43.10 ; Eating disorder F50.9 and Attention-deficit hyperactivity disorder, predominantly hyperactive type F90.1 [facility] [id number] [place] [address] 10888- 3720 May, Diabetes E11.9 [facility] [address] [place] [address] 18481 -7077 May, Acute non-recurrent maxillary sinusitis J01.00 and Diabetes E11.9 [facility] [address] [address]- 7519 May, [facility] [id number] [place] [address] 78233- 7855 May, [facility] [address] [place] [address] 16163- 4569 May, Generalized anxiety disorder F41.1 [facility] [id number] [place] [address] 48465- 8383 Apr, [facility] [address] [address]- 6440 Apr, [facility] [id number] [place] [address] 66819- 6418 Apr, [facility] [address] [place] [address] 92732- 0832 Apr, Generalized anxiety disorder F41.1 ; Major depressive disorder, recurrent episode, unspecified severity F33.9 ; PTSD (post-traumatic stress disorder) F43.10 ; Eating disorder F50.9 and Attention-deficit hyperactivity disorder, predominantly hyperactive type F90.1 [id number] [place] [address] 45470- 7413 Apr, Major depressive disorder, recurrent, moderate F33.1 [id number] [place] [address] 15898- 5706 Mar, Diabetes E11.9 [id number] [place] [address] 55378- 1003 Mar, Attention-deficit hyperactivity disorder, combined type F90.2 [id number] [place] [address] 12297- 5224 Mar, [id number] [place] [address] 54960- 3629 Mar, Diabetes E11.9 [id number] [place] [address] 40097- 2681 Mar, 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 ; Psoriatic arthritis L40.50 ; Other specified 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 and 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 I10 [id number] [place] [address] 96621- 9271 February, Back pain M54.9 [id number] [place] [address] 17518- 4003 February, Attention-deficit hyperactivity disorder, combined type F90.2 [id number] [place] [address] 79434- 3855 February, Major depressive disorder, recurrent episode, unspecified severity F33.9 and Generalized anxiety disorder F41.1 [id number] [place] [address] 55437- 1041 Jan, Attention-deficit hyperactivity disorder, combined type F90.2 [facility] [id number] [place] [address] 76337- 5248 Jan, Major depressive disorder, recurrent, moderate F33.1 ; Generalized anxiety disorder F41.1 and Attention-deficit hyperactivity disorder , combined type F90.2 [facility] [id number] [place] [address] 37620- 1477 Dec, Major depressive disorder, recurrent episode, unspecified severity F33.9 ; Generalized anxiety disorder F41.1 and Attention-deficit hyperactivity disorder, predominantly hyperactive type F90.1 [facility] [id number] [place] [address] 80682- 8809 Dec, Major depressive disorder, recurrent episode, unspecified severity F33.9 and Generalized anxiety disorder F41.1 [facility] [id number] [place] [address] 36150- 0532 Dec, [facility] [id number] [place] [address] 20723- 1196 Dec, [facility] [id number] [place] [address] 94757- 4047 Dec, Major depressive disorder, recurrent episode, unspecified severity F33.9 and Generalized anxiety disorder F41.1 [facility] [id number] [place] [address] 31207- 4276 Dec, Back pain M54.9 [facility] [id number] [place] [address] 79748- 2700 Dec, Eustachian tube dysfunction, right H69.81 and Arthritis M19.90 [facility] [id number] [place] [address] 88101- 6195 Dec, [facility] [id number] [place] [address] 86984- 0844 Dec, [facility] [place] [address] [place] [address]- 1617 07 Dec, 2016 Major depressive disorder, recurrent episode, unspecified severity F33.9 [facility] [id number] [place] [address] 99473- 6624 Oct, [facility] [id number] [place] [address] 15992 -9985 Oct, Acute non-recurrent pansinusitis J01.40 and Sore throat J02.9 [facility] [id number] [place] [address] 47027- 1717 Oct, Major depressive disorder, recurrent episode, unspecified severity F33.9 [facility] [id number] [place] [address] 41543- 9893 Oct, Major depressive disorder, recurrent episode, unspecified severity F33.9 and Generalized anxiety disorder F41.1 [facility] [id number] [place] [address] 46231- 7999 Sep, [facility] [id number] [place] [address] 13378- 5662 Sep, Major depressive disorder, recurrent episode, unspecified severity F33.9 [facility] [id number] [place] [address] 80120- 7495 Sep, Major depressive disorder, recurrent episode, unspecified severity F33.9 [facility] [address] [place] [address] 70355 -5938 Sep, Sore throat J02.9 [facility] [address] [place] [address] 46252- 1915 15 Sep, 2016 Generalized anxiety disorder F41.1 ; Major depressive disorder, recurrent episode, unspecified severity F33.9 and Attention-deficit hyperactivity disorder, predominantly hyperactive type F90.1 [facility] [address] [place] [address] 04567- 5443 08 Sep, 2016 Major depressive disorder, recurrent episode, unspecified severity F33.9 and Generalized anxiety disorder F41.1 [facility] [id number] [place] [address] 03176- 9369 07 Sep, 2016 Psoriatic arthritis L40.50 [facility] [id number] [place] [address] 96810- 5506 02 Sep, 2016 Diabetes E11.9 ; 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 ; Back pain M54.9 and Encounter for immunization Z23 [facility] [id number] [place] [address] 40899- 0435 Aug, [facility] [id number] [place] [address] 73363- 2033 Aug, [facility] [id number] [place] [address] 15404- 7523 Jul, Major depressive disorder, recurrent episode, unspecified severity F33.9 ; Attention-deficit hyperactivity disorder, predominantly hyperactive type F90.1 and Generalized anxiety disorder F41.1 [facility] [id number] [place] [address] 24771- 3067 Jul, [facility] [id number] [place] [address] 93136- 5158 22 Jul, 2016 Major depressive disorder, recurrent, in partial remission F33.41 and Generalized anxiety disorder F41.1 [facility] [id number] [place] [address] 01489- 6190 Jul, [facility] [id number] [place] [address] 49791- 3151 19 Jul, 2016 [facility] [id number] [place] [address] 46465- 0674 13 Jul, 2016 [facility] [id number] [place] [address] 76023- 0894 Jul, [facility] [id number] [place] [address] 31103- 0824 12 Jul, 2016 Diabetes E11.9 [facility] [id number] [place] [address] 46792- 6274 May, [facility] [address] [address]- 5374 May, [facility] [id number] [place] [address] 67271- 3847 May, [facility] [id number] [place] [address] 00984- 1213 May, Major depressive disorder, recurrent episode, unspecified severity F33.9 ; Generalized anxiety disorder F41.1 and Attention-deficit hyperactivity disorder, predominantly hyperactive type F90.1 [facility] [id number] [place] [address] 98403- 4153 May, [facility] [id number] [place] [address] 33349- 5033 May, Diabetes E11.9 [facility] [id number] [place] [address] 17984- 1673 May, [facility] [id number] [place] [address] 93921- 4409 May, [facility] [address] [place] [id number] May, Diabetes E11.9 ; Generalized anxiety disorder F41.1 and Nausea R11.0 [facility] [address] [place] [address] 73296- 6079 May, Psoriatic arthritis L40.50 and Candidiasis of female genitalia B37.3 [facility] [address] [address]- 5958 May, [facility] [address] [place] [address] 94622- 1931 Apr, [facility] [address] [place] [address] 75820- 7107 Apr, [facility] [address] [place] [address] 22047- 6059 Apr, [facility] [address] [address]- 8939 Apr, Generalized anxiety disorder F41.1 ; Major depressive disorder, recurrent episode, unspecified severity F33.9 and Attention-deficit hyperactivity disorder, predominantly hyperactive type F90.1 [facility] [address] [address]- 2297 Apr, [facility] [id number] [place] [address] 91912- 1874 Apr, [facility] [id number] [place] [address] 01380- 5024 Apr, [facility] [id number] [place] [address] 47027- 6546 Apr, [facility] [id number] [place] [address] 77727- 5682 Apr, [facility] [id number] [place] [address] 74893- 8739 Mar, Attention-deficit hyperactivity disorder, predominantly hyperactive type F90.1 [facility] [id number] [place] [address] 45533- 8586 Mar, [facility] [id number] [place] [address] 96230- 4566 Mar, [facility] [address] [address]- 8260 Mar, Major depressive disorder, recurrent episode, unspecified severity F33.9 and Generalized anxiety disorder F41.1 [facility] [address] [place] [address] 47152- 0436 February, Diabetes E11.9 [facility] [address] [address] February, OME (otitis media with effusion), bilateral H65.93 [facility] [address] [place] [address] 42831- 6152 February, Back pain M54.9 [facility] [address] [address]- 7205 February, [facility] [id number] [place] [address] 66368- 0266 February, Nausea R11.0 [facility] [id number] [place] [address] 62565- 3309 February, [facility] [id number] [place] [address] 16281- 7357 February, Pre-op evaluation Z01.818 ; Type 2 diabetes mellitus with hyperglycemia E11.65 and 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 [facility] [id number] [place] [address] 55840- 9367 February, [facility] [id number] [place] [address] 52087 -6239 February, Right otitis externa H60.91 [facility] [id number] [place] [address] 91076- [phone] Jan, [facility] [id number] [place] [phone] Jan, Psoriatic arthritis L40.50 and Arthralgia, unspecified joint M25.50 [address] [place] [id number] [address] Jan, Major depressive disorder, recurrent episode, unspecified severity F33.9 ; Generalized anxiety disorder F41.1 and Attention-deficit hyperactivity disorder, unspecified type F90.9 [facility] [id number] [address]- [address] Jan, [facility] [id number] [place] [address] 88375- 4886 Jan, [facility] [id number] [place] [address] 69554- 1547 Jan, Major depressive disorder, recurrent episode, unspecified severity F33.9 and Generalized anxiety disorder F41.1 [facility] [address] [address] 98[address] Jan, [facility] [id number] [place] [address] 62878- 9602 Dec, 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 I10 and Arthritis M19.90 [facility] [id number] [place] [address] 10706- 3636 Dec, [facility] [id number] [place] [address] 36370- 3065 Dec, [facility] [id number] [place] [address] 62459- 1485 Dec, [facility] [id number] [place] [address] 77428- 8799 Dec, [facility] [id number] [place] [address] 18150- 2384 Dec, [facility] [id number] [place] [address] 09347- 8434 Dec, Major depressive disorder, recurrent episode, unspecified severity F33.9 and Generalized anxiety disorder F41.1 [facility] [id number] [place] [address] 05471- 0210 Dec, Diabetes E11.9 ; Back pain M54.9 ; Thrush B37.0 and 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 I10 [facility] [id number] [place] [address] 40227- 4557 18 Dec, 2015 Major depressive disorder, recurrent episode, unspecified severity F33.9 and Generalized anxiety disorder F41.1 [facility] [id number] [place] [address] 54969- 2585 04 Dec, 2015 Major depressive disorder, recurrent episode, in partial or unspecified remission 296.35 ; Major depressive disorder, recurrent episode, unspecified severity F33.9 and Generalized anxiety disorder 300.02 [facility] [id number] [place] [address] 29300- 0980 Dec, [facility] [id number] [place] [address] 90587- 9253 Oct, [facility] [id number] [place] [address] 99122- 3402 Oct, [facility] [id number] [place] [address] 02514- 7190 Oct, [facility] [id number] [place] [address] 08382- 0794 Oct, [facility] [id number] [place] [address] 72093- 7800 Oct, Major depressive disorder, recurrent, moderate F33.1 and Attention-deficit hyperactivity disorder, unspecified type F90.9 [facility] [id number] [place] [address] 86811- 3910 Oct, 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 [facility] [id number] [place] [address] 09372- 3432 Oct, [facility] [id number] [place] [address] 33530- 1898 Oct, [facility] [id number] [place] [address] 07627 -5728 Sep, URI (upper respiratory infection) J06.9 ; Psoriasis L40.9 ; Cough R05 and Tobacco abuse Z72.0 [facility] [id number] [place] [address] 26943- 4693 Sep, Major depressive disorder, recurrent episode, in partial or unspecified remission 296.35 ; Generalized anxiety disorder 300.02 and ADHD, 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 [facility] [id number] [place] [address] 95207 -2519 Sep, Acute sinusitis, unspecified J01.90 [facility] [id number] [place] [address] 08485- 4352 Sep, [facility] [address] [address]- 0080 Sep, Major depressive disorder, recurrent, moderate F33.1 ; Generalized anxiety disorder F41.1 and Attention-deficit hyperactivity disorder , combined type F90.2 [facility] [id number] [place] [address] 97870- 7056 Sep, [facility] [id number] [place] [address] 32410- 4725 Aug, [facility] [id number] [place] [address] 81476- 8020 Aug, [facility] [id number] [place] [address] 92749- 8400 Aug, Diabetes E11.9 and Anxiety F41.9 [facility] [id number] [place] [address] 42800- 3857 Aug, Major depressive disorder, recurrent episode, unspecified severity F33.9 and Generalized anxiety disorder F41.1 [facility] [id number] [place] [address] 39625- 6528 Aug, [facility] [id number] [place] [address] 41873- 3934 Jul, [facility] [id number] [place] [address] 95400- 7621 Jul, [facility] [id number] [place] [address] 75695- 7363 Jul, [facility] [id number] [place] [address] 16118- 8961 Jul, [facility] [id number] [place] [address] 42330- 2660 Jul, Major depressive disorder, recurrent episode, in partial or unspecified remission 296.35 ; Generalized anxiety disorder 300.02 and ADHD, 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 [facility] [id number] [address]- 5606 Jul, Major depressive disorder, recurrent episode, in partial or unspecified remission 296.35 ; Generalized anxiety disorder 300.02 and ADHD, 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 [facility] [id number] [place] [address] 76732- 3692 Jul, [facility] [id number] [place] [address] 20874- 4300 May, [facility] [id number] [place] [address] 02682- 8408 May, [facility] [id number] [place] [address] 30252- 7986 May, DM w/o complication type II 250.00 ; Dyspepsia 536.8 and PAD (peripheral artery disease) 443.9 [facility] [id number] [place] [address] 29553- 1503 May, Major depressive disorder, recurrent episode, moderate 296.32 and Generalized anxiety disorder 300.02 [facility] [id number] [place] [address] 40803- 7350 May, [facility] [id number] [place] [address] 85875- 3185 May, Major depressive disorder, recurrent episode, moderate 296.32 and Generalized anxiety disorder 300.02 [facility] [id number] [place] [address] 79741- 6725 May, [facility] [id number] [place] [address] 08562- 5417 Apr, [facility] [id number] [place] [address] 80691- 0728 Apr, Major depressive disorder, recurrent episode, moderate 296.32 and Generalized anxiety disorder 300.02 [facility] [id number] [place] [address] 50823- 8837 Apr, [facility] [id number] [address]- 3945 Apr, [facility] [id number] [place] [address] 72083- 4310 Apr, Generalized anxiety disorder 300.02 ; ADHD, 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 and Depression, major, recurrent, moderate 296.32 [facility] [address] [address]- 4792 Apr, Major depressive disorder, recurrent episode, moderate 296.32 and Generalized anxiety disorder 300.02 [facility] [address] [address]- 2795 Apr, [facility] [id number] [place] [address] 11112- 5419 Apr, [facility] [id number] [place] [address] 47382- 5363 Mar, [facility] [id number] [place] [address] 59890- 5469 Mar, Major depressive disorder, recurrent episode, moderate 296.32 and Generalized anxiety disorder 300.02 [facility] [id number] [place] [address] 73517- 1952 Mar, ADHD, 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 ; Major depressive disorder, recurrent episode, severe, without mention of psychotic behavior 296.33 and Generalized anxiety disorder 300.02 [facility] [address] [address]- 4695 February, Major depressive disorder, recurrent episode, moderate 296.32 and Generalized anxiety disorder 300.02 [facility] [address] [address]- 6684 February, [facility] [id number] [place] [address] 63128- 5108 February, [facility] [address] [address]- 1236 February, [facility] [id number] [address]- 4472 February, [facility] [address] 0833 February, DM w/o complication type II 250.00 ; Impacted cerumen 380.4 ; Essential hypertension, benign 401.1 and Irritable colon 564.1 [facility] [id number] [place] [address] 00394- 2165 February, [facility] [address] [facility] [id number] [place] [address], [place] [address]- 3144 February, [facility] [id number] [place] [address], [place]- 8536 Jan, [facility] [id number] [place] [address]- 0739 Dec, [facility] [id number] [place] [address], [place] [address]- 8999 Dec, [facility] [address] [address]- 3644 Dec, [facility] [id number] [place] [address]- 0692 Dec, [facility] [address] [address]- 4936 Dec, [facility] [id number] [place] [address]- 2291 Dec, [facility] [id number] [address]- 9226 Dec, [facility] [id number] [place] [address]- 3094 Dec, [facility] [id number] [place] [address]- 8036 Dec, [facility] [address] [address]- 0292 Dec, [facility] [place] [facility] [address] [id number] [place] [address]- 2579 Dec, [facility] [place] [facility] [address] [id number] [place] [address]- 7846 Dec, [facility] [place] [facility] [address] [id number] [place] [address]- 3601 Dec, [facility] [place] [facility] [address] [id number] [place] [address]- 0696 Dec, [facility] [place] [facility] [address] [id number] [place] [address]- 9302 Dec, [facility] [place] [facility] [address] [id number] [place] [address]- 5136 Dec, [facility] [place] [facility] [address] [id number] [place] [address]- 8750 Oct, [facility] [place] [facility] [address] [id number] [address]- 5969 Oct, [facility] [place] [facility] [address] [id number] [place] [address]- 9100 Oct, [facility] [place] [facility] [address] [id number] [place] [address]- 4971 Oct, [facility] [place] [facility] [address] [id number] [address]- 8640 Oct, [facility] [place] [facility] [address] [id number] [address]- 9034 Oct, [facility] [place] [facility] [address] [id number] [place] [address]- 2773 Oct, [facility] [place] [facility] [address] [id number] [address]- 7336 Oct, [facility] [place] [facility] [address] [id number] [place] [address]- 2836 Oct, [facility] [place] [facility] [address] [id number] [place] [address]- 0189 Oct, [facility] [place] [facility] [address] [id number] [place] 6694 Oct, [facility] [place] [facility] [address] [id number] [place] [address]- 4605 Sep, [facility] [place] [facility] [address] [id number] [place] [address]- 3099 Sep, [facility] [place] [facility] [address] [id number] [place] [address]- 9742 Sep, [facility] [place] [facility] [address] [id number] [place] [address]- 2698 Sep, [facility] [place] [facility] [address] [id number] [place] [address]- 0466 Sep, [facility] [place] [facility] [address] [id number] [place] [address]- 4345 Sep, [facility] [place] [facility] [address] [id number] [place] [address]- 5778 Sep, [facility] [place] [facility] [address] [id number] [place] [address]- 2970 Sep, [facility] [place] [facility] [address] [id number] [place] [address]- 7938 Aug, [facility] [place] [facility] [address] [id number] [place] [address]- 9620 Aug, [facility] [place] [facility] [address] [id number] [place] [address]- 8105 Aug, [facility] [place] [facility] [address] [id number] [place] [address]- 7483 Aug, [facility] [place] [facility] [address] [id number] [place] [address]- 1409 Aug, [facility] [place] [facility] [address] [id number] [place] [address]- 0114 Aug, [facility] [place] [facility] [address] [id number] [place] [address]- 0719 Aug, [facility] [place] [facility] [address] [id number] [place] [address]- 8180 Aug, [facility] [place] [facility] [address] [id number] [place] [address]- 4061 Aug, [facility] [place] [facility] [address] [id number] [place] [address]- 9611 Aug, [facility] [place] [facility] [address] [id number] [place] [address]- 7363 Aug, [facility] [place] [facility] [address] [id number] [place] [address]- 6791 Aug, [facility] [place] [facility] [address] [id number] [place] [address]- 7000 Aug, [facility] [place] [facility] [address] [id number] [place] [address]- 2929 Aug, [facility] [place] [facility] [address] [id number] [place] [address]- 8498 Jul, [facility] [place] [facility] [address] [id number] [place] [address]- 9452 Jul, [facility] [place] [facility] [address] [id number] [place] [address]- 3346 Jul, [facility] [place] [facility] [address] [id number] [address]- 7033 Jul, [facility] [place] [facility] [address] [id number] [place] [address]- 8891 Jul, [facility] [place] [facility] [address] [id number] [place] [address]- 6808 Jul, [facility] [place] [facility] [address] [id number] [place] [address]- 6957 Jul, [facility] [place] [facility] [address] [id number], [place] [address]- 4629 Jul, [facility] [place] [facility] [address] [id number] [place] [address]- 4162 Jul, [facility] [place] [facility] [address] [id number] [place] [address]- 4910 Jul, [facility] [place] [facility] [address] [id number] [place] [address]- 5822 Jul, [facility] [place] [facility] [address] [id number] [place] [address]- 9681 Jul, [facility] [place] [facility] [address] [id number] [place] [address]- 5966 Jul, [facility] [place] [facility] [address] [id number] [place] [address]- 2103 Jul, [facility] [place] [facility] [address] [id number] [place] [address]- 9787 May, [facility] [place] [facility] [address] [id number] [place] [address]- 5211 May, [facility] [place] [facility] [address] [id number] [place] [address]- 8910 May, [facility] [place] [facility] [address] [id number] [place] [address]- 6185 May, [facility] [place] [facility] [address] [id number] [place] [address]- 3077 May, [facility] [place] [facility] [address] [id number] [place] [address]- 0614 May, [facility] [place] [facility] [address] [id number] [place] [address]- 5380 May, [facility] [place] [facility] [address] [id number] [place] [address]- 4682 May, [facility] [place] [facility] [address] [id number] [place] [address]- 3371 May, [facility] [place] [facility] [address] [id number] [place] [address]- 6939 May, [facility] [place] [facility] [address] [id number] [place] [address]- 7908 May, [facility] [place] [facility] [address] [id number] [place] [address]- 7776 May, [facility] [place] [facility] [address] [id number] [place] [address]- 2821 Apr, [facility] [place] [facility] [address] [id number] [place] [address]- 1268 Apr, [facility] [place] [facility] [address] [id number] [place] [address]- 4407 Apr, [facility] [place] [facility] [address] [id number] [place] [address]- 5986 Apr, [facility] [place] [facility] [address] [id number] [place] [address]- 9735 Apr, [facility] [place] [facility] [address] [id number] [place] [address]- 3888 Apr, [facility] [place] [facility] [address] [id number] [place] [address]- 6615 Mar, [facility] [place] [facility] [address] [id number] [place] [address]- 1767 Mar, [facility] [place] [facility] [address] [id number] [place] [address]- 5483 Mar, [facility] [place] [facility] [address] [id number] [place] [address]- 4165 Mar, [facility] [place] [facility] [address] [id number] [place] [address]- 3700 Mar, [facility] [place] [facility] [address] [id number] [place] [address]- 3921 Mar, [facility] [place] [facility] [address] [id number] [place] [address]- 5387 Mar, [facility] [place] [facility] [address] [id number] [place] [address]- 1794 Mar, [facility] [place] [facility] [address] [id number] [place] [address]- 7805 Mar, [facility] [place] [facility] [address] [id number] [place] [address]- 7605 Mar, [facility] [place] [facility] [address] [id number] [place] [address]- 7158 Mar, [facility] [place] [facility] [address] [id number] [place] [address]- 1956 Mar, [facility] [place] [facility] [address] [id number] [place] [address]- 5823 Mar, [facility] [place] [facility] [address] [id number] [place] [address]- 6126 February, [facility] [place] [facility] [address] [id number] [place] [address]- 9979 February, [facility] [place] [facility] [address] [id number] [place] [address]- 6479 February, [facility] [place] [facility] [address] [id number] [place] [address]- 5028 February, [facility] [place] [facility] [address] [id number] [place] [address]- 7996 February, [facility] [place] [facility] [address] [id number] [place] [address]- 1014 February, [facility] [place] [facility] [address] [id number] [place] [address]- 5088 February, [facility] [place] [facility] [address] [id number] [place] [address]- 3721 February, [facility] [place] [facility] [address] [id number] [place] [address]- 5331 February, [facility] [place] [facility] [address] [id number] [place] [address]- 4446 February, [facility] [address] [id number] [place] [address]- 5566 February, [facility] [place] [facility] [address] [id number] [place] [address]- 3720 February, [facility] [place] [facility] [address] [id number] [place] [address]- 1025 February, [facility] [place] [facility] [address] [id number] [place] [address]- 1012 February, [facility] [place] [facility] [address] [id number] [place] [address]- 6839 Jan, [facility] [place] [facility] [address] [id number] [place] [address]- 9195 Jan, [facility] [place] [facility] [address] [id number] [place] [address]- 4703 Jan, [facility] [place] [facility] [address] [id number] [place] [address]- 5147 Jan, [facility] [place] [facility] [address] [id number] [place] [address]- 4924 Jan, [facility] [place] [facility] [address] [id number] [place] [address] Jan, [facility] [place] [facility] [address] [id number] [place] [address] Jan, [facility] [place] [facility] [address] [id number] [place] [address] Jan, [facility] [place] [facility] [address] [id number] [place] [address] Jan, [facility] [place] [facility] [address] [id number] [place] [address] Dec, [facility] [place] [facility] [address] [id number] [place] [address] Dec, [facility] [place] [facility] [address] [id number] [place] [address] Dec, [facility] [place] [facility] [address] [id number] [place] [address]- [address] Dec, [facility] [place] [facility] [address] [id number] [place] [address]- [address] Dec, [facility] [place] [facility] [address] [id number] [place] [address]- [address] Dec, [facility] [place] [facility] [address] [id number] [place] [address]- [address] Dec, [facility] [place] [facility] [address] [id number] [place] [address]- [address]97 Dec, [facility] [place] [facility] [address] [facility] [id number] [place] [address]- [address] Dec, [facility] [place] [facility] [address] [id number] [place] [address]- [address] Dec, [facility] [place] [facility] [address] [id number] [place] [address]- [address] 14 Dec, 2013 [facility] [place] [facility] [address] [id number] [place] [address]- [address] Dec, [facility] [place] [facility] [address] [facility] [id number] [place] [address]- [address] Dec, [facility] [place] [facility] [address] [id number], [place] [address] 10 Dec, 2013 [facility] [place] [facility] [address] [id number] [place] [address]- [address]68 Dec, [facility] [place] [facility] [address] [id number] [place] [address]- [address] 06 Dec, 2013 [facility] [place] [facility] [address] [id number] [place] [address]- [address] 06 Dec, 2013 [facility] [place] [facility] [address] [id number], [place] [address] Oct, [facility] [address] [id number] [place] [address]- [address] Oct, [facility] [place] [facility] [address] [id number] [place] [address]- 9076 Oct, [facility] [place] [facility] [address] [id number] [place] [address]- 6048 Oct, [facility] [place] [facility] [address] [id number] [place] [address]- [address]143 Oct, [facility] [place] [facility] [address] [id number] [place] [address]- [address]78 Oct, [facility] [place] [facility] [address] [id number] [place] [address]- 7734 Oct, [facility] [address] [id number] [place] [address]- [address] Oct, [facility] [place] [facility] [address] [id number] [place] [address]- 135[address] Oct, [facility] [place] [facility] [address] [id number] [place] [address]- [address] Oct, [facility] [place] [facility] [address] [id number] [place] [address]- 1629 Oct, [facility] [place] [facility] [address] [id number] [place] [address]- 9939 Oct, [facility] [place] [facility] [address] [id number][place] [address]- [address] Oct, [facility] [place] [facility] [address] [id number] [place] [address]- 6009 Oct, [facility] [place] [facility] [address] [id number] [place] [address]- [address] Sep, [facility] [place] [facility] [address] [id number] [place] [address]- [address]36 Sep, [facility] [place] [facility] [address] [id number] [place] [address]- [address] 30 Sep, 2013 [facility] [place] [facility] [address] [id number] [place] [address]- [address] 30 Sep, 2013 [facility] [place] [facility] [address] [id number] [place] [address]- 49[address] Sep, [facility] [place] [facility] [address] [id number] [place] [address]- [address] Sep, [facility] [place] [facility] [address] [id number] [place] [address]- [address] Sep, [facility] [place] [facility] [address] [id number] [place] [address]- 1716 Sep, [facility] [place] [facility] [address] [id number] [place] [address]- [address]400 Sep, [facility] [place] [facility] [address] [id number] [place] [address]- 79[address] Sep, [facility] [place] [facility] [address] [id number] [place] [address]- [address]66 16 Sep, 2013 [facility] [place] [facility] [address] [id number] [place] [address]- [address] 16 Sep, 2013 [facility] [place] [facility] [address] [id number] [place] [address]- 2013 13 Sep, 2013 [facility] [place] [facility] [address] [address] [id number] [place] [address] 13 Sep, 2013 [facility] [place] [facility] [address] [id number] [place] [address] 2546 10 Sep, 2013 [facility] [place] [facility] [address] [id number] [place] [address]- 7346 10 Sep, 2013 [facility] [place] [facility] [address] [id number] [place] [address]- 3786 02 Sep, 2013 [facility] [place] [facility] [address] [id number] [place] [address] 02 Sep, 2013 [facility] [place] [facility] [address] [id number] [place] [address]- 8921 15 Aug, 2013 [facility] [place] [facility] [address] [id number] [place] [address]- 1327 15 Aug, 2013 [facility] [place] [facility] [address] [id number] [place] [address] 16 Jul, 2013 [facility] [place] [facility] [address] [id number] [place] [address]- 2182 16 Jul, 2013 [facility] [place] [facility] [address] [id number] [place] [address]- 5688 14 Jul, 2013 [facility] [place] [facility] [address] [id number] [place] [address]- 7114 14 Jul, 2013 [facility] [place] [facility] [address] [id number] [place] [address]- 2177 08 Jul, 2013 [facility] [place] [facility] [address] [id number][place] [address] 20 Sep, 2012 [facility] [place] [facility] [address] [id number], [place] [address]- 8085 19 Sep, 2012 [facility] [place] [facility] [address] [id number] [address]- 9151 13 Sep, 2012 [facility] [place] [facility] [address] [id number][place] [address] 3930 08 Sep, 2012 [facility] [place] [facility] [address] [id number] [address] 9[address] 06 Sep, 2012 [facility] [place] [facility] [address] [id number] [address]- 3553 06 Sep, 2012 [facility] [place] [facility] [address] [id number][place] [address]- 2925 06 Sep, 2012 [facility] [place] [facility] [address] [id number][place] [address]- 6[address] 03 Sep, 2012 [facility] [place] [facility] [address] [id number] [place] [address]- 2167 May, [facility] [address] [id number] [place] [address]- 8591 May, [facility] [place] [facility] [address] [id number] [place] [address]- 2480 May, [facility] [address] [id number] [place] [address]- 8982 May, [facility] [place] [facility] [address] [id number] [place] [address]- 6537 Apr, [facility] [address] [id number] [place] [address]- 4043 Apr, [facility] [place] [facility] [address] [id number] [place] [address]- 1160 Apr, [facility] [address] [id number] [place] [address]- 6336 Mar, [facility] [place] [facility] [address] [id number] [place] [address]- 8744 Mar, [facility] [place] [facility] [address] [id number] [place] [address]- 7140 Mar, [facility] [address] [id number] [place] [address]- 9777 Mar, [facility] [place] [facility] [address] [id number] [place] [address]- 1699 February, [facility] [place] [facility] [address] [id number] [place] [address]- 6874 February, [facility] [place] [facility] [address] [id number] [place] [address]- 4908 Jan, [facility] [place] [facility] [address] [id number] [place] [address] Dec, [facility] [place] [facility] [address] [id number] [place] [address] Dec, [facility] [place] [facility] [address] [id number] [place] [address]- 2018 05 Dec, 2012 [facility] [address] [id number] [place] [address]- 0386 05 Dec, 2012 [facility] [address] [id number] [place] [address]- 5439 28 Dec, 2012 [facility] [place] [facility] [address] [id number] [place] [address]- 5744 27 Dec, 2012 [facility] [address] [id number] [place] [address]- 0358 Dec, [facility] [address] [id number] [place] [address]- 4873 25 Dec, 2012 [facility] [address] [id number] [place] [address]- 2065 22 Dec, 2012 [facility] [address] [id number] [place] [address]- 9435 15 Dec, 2012 [facility] [address] [id number] [place] [address]- 9069 14 Dec, 2012 [facility] [address] [id number] [place] [address]- 7724 Oct, [facility] [address] [id number] [place] [address]- 9805 Oct, [facility] [place] [facility] [address] [id number] [place] [address]- 2617 09 Oct, 2012 [facility] [place] [facility] [address] [id number] [place] [address]- 5968 Oct, [facility] [place] [facility] [address] [id number] [place] [address]- 4004 13 Sep, 2012 [facility] [place] [facility] [address] [id number] [place] [address]- 2727 Sep, [facility] [address] [id number] [place] [address]- 5547 Sep, [facility] [place] [facility] [address] [id number] [place] [address]- 1404 Sep, [facility] [place] [facility] [address] [id number] [place] [address]- 0627 Sep, [facility] [place] [facility] [address] [id number] [place] [address]- 5200 Sep, [facility] [place] [facility] [address] [id number] [place] [address]- 0812 Aug, [facility] [place] [facility] [address] [id number] [place] [address]- 2922 Aug, [facility] [place] [facility] [address] [id number] [place] [address]- 9218 Aug, [facility] [place] [facility] [address] [facility] [id number] [place] [address]- 4856 Aug, [facility] [place] [facility] [address] [id number] [place] [address]- 0201 Aug, [facility] [place] [facility] [address] [id number] [place] [address]- 4189 Aug, [facility] [place] [facility] [address] [facility] [id number] [place] [address]- 4823 Jul, [facility] [place] [facility] [address] [id number] [place] [address]- 2958 Jul, [facility] [place] [facility] [address] [id number] [address]- 4624 Jul, [facility] [place] [facility] [address] [id number] [place] [address]- 9242 Jul, [facility] [place] [facility] [address] [facility] [id number] [place] [address]- 5829 Jul, [facility] [place] [facility] [address] [facility] [id number][place] [address]- 6746 Jul, [facility] [place] [facility] [address] [id number] [place] [address]- 3390 27 Jul, 2012 [facility] [place] [facility] [address] [id number] [place] [address]- 9106 21 Jul, 2012 [facility] [place] [facility] [address] [id number] [place] [address]- 3866 20 Jul, 2012 [facility] [place] [facility] [address] [id number] [place] [address]- 8776 11 Jul, 2012 [facility] [place] [facility] [address] [id number] [place] [address]- 0749 Jul, [facility] [place] [facility] [address] [id number] [place] [address]- 6136 May, [facility] [place] [facility] [address] [id number] [place] [address]- 8647 May, [facility] [place] [facility] [address] [id number] [place] [address]- 2926 May, [facility] [place] [facility] [address] [id number] [place] [address]- 3855 May, [facility] [place] [facility] [address] [id number] [place] [address]- 3189 Apr, [facility] [place] [facility] [address] [id number] [place] [address]- 4567 Apr, [facility] [place] [facility] [address] [id number] [place] [address]- 0069 Apr, [facility] [place] [facility] [address] [id number] [place] [address]- 1094 Apr, [facility] [place] [facility] [address] [id number] [place] [address]- 2549 Apr, [facility] [place] [facility] [address] [id number] [place] [address]- 0210 Apr, [facility] [place] [facility] [address] [id number] [place] [address]- 6129 13 Apr, 2012 [facility] [place] [facility] [address] [id number] [place] [address]- 1567 09 Apr, 2012 [facility] [place] [facility] [address] [id number] [place] [address]- 7655 28 Mar, 2012 [facility] [place] [facility] [address] [id number] [place] [address]- 5938 27 Mar, 2012 [facility] [place] [facility] [address] [id number] [place] [address]- 1287 20 Mar, 2012 [facility] [place] [facility] [address] [id number] [place] [address]- 4187 15 Mar, 2012 [facility] [place] [facility] [address] [id number] [place] [address]- 4353 14 Mar, 2012 [facility] [place] [facility] [address] [id number] [place] [address]- 5342 Mar, [facility] [place] [facility] [address] [id number] [place] [address]- 1899 Mar, [facility] [place] [facility] [address] [id number] [place] [address]- 9041 Mar, [facility] [place] [facility] [address] [id number] [place] [address]- 8983 08 Mar, 2012 [facility] [place] [facility] [address] [id number] [place] [address]- 8867 February, [facility] [place] [facility] [address] [id number] [place] [address]- 8806 February, [facility] [place] [facility] [address] [id number] [place] [address]- 7881 February, [facility] [place] [facility] [address] [id number] [place] [address]- 9911 February, [facility] [place] [facility] [address] [id number] [place] [address]- 4097 13 Jan, 2012 [facility] [place] [facility] [address] [id number] [place] [address]- 5709 03 Jan, 2012 [facility] [place] [facility] [address] [id number] [place] [address]- 4297 28 Dec, 2011 [facility] [place] [facility] [address] [id number] [place] [address]- 2216 15 Dec, 2011 [facility] [place] [facility] [address] [id number] [place] [address]- 3916 14 Dec, 2011 [facility] [place] [facility] [address] [id number] [place] [address]- 8413 07 Dec, 2011 [facility] [place] [facility] [address] [id number] [place] [address]- 3109 28 Dec, 2011 [facility] [place] [facility] [address] [id number] [place] [address]- 9086 27 Dec, 2011 [facility] [place] [facility] [address] [id number] [place] [address]- 1437 Dec, [facility] [place] [facility] [address] [id number] [place] [address]- 2167 Dec, [facility] [place] [facility] [address] [id number] [place] [address]- 8786 Dec, [facility] [place] [facility] [address] [facility] [id number] [place] [address]- 6545 Dec, [facility] [place] [facility] [address] [facility] [id number] [place] [address]- 6151 Dec, [facility] [place] [facility] [address] [id number] [place] [address]- 7459 Dec, [facility] [place] [facility] [address] [id number] [place] [address]- 7898 Oct, [facility] [place] [facility] [address] [id number] [place] [address]- 5485 Oct, [facility] [place] [facility] [address] [id number][place] [address]- 9646 Oct, [facility] [place] [facility] [address] [id number] [place] [address]- 8212 Oct, [facility] [place] [facility] [address] [id number] [place] [address]- 9590 Oct, [facility] [place] [facility] [address] [id number] [place] [address]- 7992 Oct, [facility] [place] [facility] [address] [id number] [address]- 2052 16 Oct, 2011 [facility] [place] [facility] [address] [id number] [place] [address]- 6082 Oct, [facility] [place] [facility] [address] [id number] [place] [address]- 1162 Sep, [facility] [place] [facility] [address] [id number] [address]- 1885 Sep, [facility] [place] [facility] [address] [id number][place] [address]- 4792 Sep, [facility] [place] [facility] [address] [id number][place] [address]- 4931 Aug, [facility] [place] [facility] [address] [id number][place] [address]- 9947 Aug, [facility] [place] [facility] [address] [id number][place] [address]- 1380 16 Aug, 2011 [facility] [place] [facility] [address] [id number][place] [address]- 8477 14 Aug, 2011 [facility] [place] [facility] [address] [id number], [place] [address]- 6868 Aug, [facility] [place] [facility] [address] [id number][place] [address]- 1698 19 Jul, 2011 [facility] [place] [facility] [address] [id number][place] [address]- 2338 13 Jul, 2011 [facility] [place] [facility] [address] [facility] [id number], [place] [address]- 7606 May, [facility] [address] [facility] [id number], [place] [address]- 4437 Dec, [facility] [address] [id number], [place] [address]- 4246 Oct, [facility] [address] [id number], [place] [address]- 6686 Sep, [facility] [address] [id number], [place] [address]- 4699 Sep, [facility] [address] [id number], [place] [address]- 2214 Sep, IMMUNIZATIONS No Known Immunizations SOCIAL HISTORY Never Assessed REASON FOR VISIT f/u PLAN OF CARE Activity Details Follow Up 1 week, 1 hour only. Reason: VITAL SIGNS MEDICATIONS Unknown Medications RESULTS No Results PROCEDURES Procedure Date Ordered Result Body Site [facility] VISIT MENTAL HEALTH ESTAB PT Oct 13, 2017 Psychotherapy, patient &/family, 45 minutes, established patient Oct 13, 2017 visit needs to be added to the same day medical Oct 13, 2017 INSTRUCTIONS MEDICATIONS ADMINISTERED No Known Medications MEDICAL (GENERAL) HISTORY Type Description Date Medical [...] reflux Surgical History Left Knee SOA-Dr. Melendrez-[facility] 05/19/16 Surgical History Colonoscopy- Dr Castanon 01/26/2017 Hospitalization History surgeries Hospitalization History Left Knee SOA--Dr. Melendrez--[facility] Hospitalization History Septic shock, UTI-[facility] 07/27/17 Hospitalization History Multiple falls, hyperglycemia, sepsis 07/2017 Hospitalization History Alcoholism, depression, DM, Falls-[facility] 08/23/17 Hospitalization History COPD exacerbation-[facility] 11/25/17 Hospitalization History COPD exacerbation-[facility] 11/28/17
--- OUTSIDE RECORDS SUMMARY | 2018-05-10 03:21 | XMS REPORT ---
Author Author ABEL MELENDEZ [facility] Address [address] [place] [address] Care Team Providers Care Teacher Visually Impaired Name Role Phone ABEL MELENDEZ Unavailable PROBLEMS Type Condition ICD9-CM Code [id number] Code Onset Dates Condition Status SNOMED Code Problem Generalized anxiety disorder F41.1 Active 12098274 Problem Diabetes E11.9 Active 81769621 Problem Psoriasis L40.9 Active 9361172 Problem Tobacco abuse Z72.0 Active 61813294 Problem 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 I10 Active 60420398 Problem Back pain M54.9 Active 148656180 Problem Arthritis M19.90 Active 1016414 Problem FCI 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 Active 998727856 Problem Psoriatic arthritis L40.50 Active 187287584 Problem Psychophysiological insomnia F51.04 Active 28858036 Problem Other specified 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 Active 659891344 Problem Obesity (BMI 30-39.9) E66.9 Active 072313564 Problem Major depressive disorder, recurrent, moderate F33.1 Active 05345339 Problem Essential hypertension I10 Active 31334315 Problem Type 2 diabetes mellitus with hyperglycemia E11.65 Active 730704970006673 Problem Alcoholism F10.20 Active 6605159 Problem Frequent falls R29.6 Active 757587370 Problem Benzodiazepine abuse F13.10 Active 248945558 Problem PTSD (post-traumatic stress disorder) F43.10 Active 97670014 Problem Eating disorder F50.9 Active 22011595 Problem Attention-deficit hyperactivity disorder, combined type F90.2 Active 33371131 Problem COPD exacerbation J44.1 Active 847821643 Problem Anxiety F41.9 Active 24272162 Problem Decubitus ulcer of left buttock, stage 2 L89.322 Active 756176020 Problem BMI 40.0-44.9, adult Z68.41 Active 681394190 Problem Alcohol abuse F10.10 Active 77702200 Problem Pneumonia due to methicillin resistant Staphylococcus aureus, unspecified laterality, unspecified part of lung J15.212 Active 400149106358855 Problem Type 2 diabetes mellitus with unspecified complications E11.8 Active 61847661 Problem Attention-deficit hyperactivity disorder, predominantly hyperactive type F90.1 Active 252660285 Problem Type 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 Active 60716490 Problem Ulcer of right foot, unspecified ulcer stage L97.519 Active 15204062 Problem Attention deficit R41.840 Active 91113789 Problem Mental disorder, not otherwise specified F99 Active 75931752 Problem Insomnia due to other mental disorder F51.05 Active 19304308 ALLERGIES No Information ENCOUNTERS Encounter Location Date Diagnosis [facility] [address] [address] Mar, [facility] [id number] [place] [address] 21943- 5432 Mar, [facility] [id number] [place] [address] 92838- 6051 February, Yeast infection B37.9 [facility] [id number] [place] [address] 86191- 8542 February, [facility] [id number] [place] [address] 50448- 7833 Jan, [facility] [id number] [place] [address] 91539- 8849 Dec, Major depressive disorder, recurrent episode, unspecified severity F33.9 ; Generalized anxiety disorder F41.1 and Eating disorder F50.9 [facility] [address], [place] [address] 115[address] Dec, [facility] [id number] [place] [address] 71534- 7658 Dec, [facility] [id number] [place] [address] 10359- 2180 Dec, [facility] [id number] [place] [address] 83754- 7346 Dec, Increased urinary frequency R35.0 ; Frequent falls R29.6 ; Decubitus ulcer of left buttock, stage 2 L89.322 ; Benzodiazepine abuse F13.10 ; BMI 40.0-44.9, adult Z68.41 and Yeast infection B37.9 [facility] [address], [place] [address] Dec, [facility] [id number] [place] [address] 76270- 3190 Dec, [facility] [id number] [place] [address] 79272- 8882 Dec, Increased urinary frequency R35.0 [facility] [id number] [place] [address] 35230- 0349 Dec, Increased urinary frequency R35.0 [facility] [id number] [place] [address] 45964- 3059 Dec, Generalized anxiety disorder F41.1 ; Major depressive disorder, recurrent, moderate F33.1 and Psychophysiological insomnia F51.04 [facility] [address] [place] [address] 82902- 7637 Dec, BMI 40.0-44.9, adult Z68.41 ; Type 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 ; Pneumonia due to methicillin resistant Staphylococcus aureus, unspecified laterality, unspecified part of lung J15.212 and COPD exacerbation J44.1 [facility] [address], [place] [address] Dec, [facility] [id number] [place] [address] [id number] Dec, [facility] [id number] [place] [address] [id number] Oct, [facility] [address], [place] [address] Oct, Frequency of urination R35.0 ; Bronchitis J40 and BMI 40.0- 44.9, adult Z68.41 [facility] [id number] [id number] Oct, [facility] [id number] [place] [address] 79959- 5230 Oct, [facility] [id number] [place] [address] 40503- 5445 Oct, BMI 40.0-44.9, adult Z68.41 ; Type 2 diabetes mellitus with hyperglycemia E11.65 ; Essential hypertension I10 ; Vaginal yeast infection B37.3 ; Anxiety F41.9 and Alcoholism F10.20 [facility] [id number] [place] [address] 47471- 1526 Oct, [facility] [id number] [place] [address] 21791- 0430 Oct, [facility] [id number] [place] [address] 43561- 0300 Sep, [facility] [id number] [place] [address] 44292- 8537 Sep, Major depressive disorder, recurrent episode, unspecified severity F33.9 ; Generalized anxiety disorder F41.1 and Eating disorder F50.9 [facility] [address], [place] [address] 9191 Sep, Major depressive disorder, recurrent, moderate F33.1 ; Type 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 ; Alcohol abuse F10.10 ; Obesity (BMI 30-39.9) E66.9 and Psychophysiological insomnia F51.04 [facility] [id number] [place] [address] 48312- 2120 06 Sep, 2017 Diabetes E11.9 and Generalized anxiety disorder F41.1 [facility] [address] [place] [address] 10806- 4934 05 Sep, 2017 Major depressive disorder, recurrent episode, unspecified severity F33.9 ; Generalized anxiety disorder F41.1 and Eating disorder F50.9 [facility] [id number] [address] 7326 Sep, [facility] [id number] [place] [address] 19837- 4956 Aug, [facility] [id number] [place] [address] 30049- 4192 Aug, Insomnia due to other mental disorder F51.05 ; Mental disorder, not otherwise specified F99 ; Attention deficit R41.840 ; Ulcer of right foot, unspecified ulcer stage L97.519 ; Cough R05 ; Diabetes E11.9 ; Sore in mouth K13.79 ; Generalized anxiety disorder F41.1 ; Major depressive disorder , recurrent episode, unspecified severity F33.9 and BMI 40.0-44.9, adult Z68.41 [facility] [id number] [place] [address] 42003- 2214 Aug, [facility] [id number] [place] [address] 18714- 2906 Aug, [facility] [id number] [place] [address] 25173- 6075 Aug, [facility] [id number] [place] [address] 04060- 1646 Aug, [facility] [id number] [place] [address] 23039- 0584 Aug, Diabetes E11.9 [facility] [address] [place] [id number] Aug, Falling R29.6 ; Alcohol abuse F10.10 ; Major depressive disorder, recurrent episode, unspecified severity F33.9 ; 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 I10 ; Type 2 diabetes mellitus with unspecified complications E11.8 and 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 [address] [place] [id number] Aug, Alcohol abuse F10.10 ; Major depressive disorder, recurrent episode, unspecified severity F33.9 ; Generalized anxiety disorder F41.1 ; FCI 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 ; Psoriatic arthritis L40.50 and Diabetes E11.9 [facility] [id number] [place] [address] [id number] Aug, [facility] [id number] [id number] Jul, [facility] [id number] [place] [address] 25811- 7604 Jul, [facility] [id number] [place] [address] 21192- 3759 Jul, Generalized anxiety disorder F41.1 [facility] [id number] [place] [address] 46992- 7900 Jul, [facility] [id number] [place] [address] 27164- 8570 Jul, [facility] [id number] [place] [address] 18156- 1474 Jul, Generalized anxiety disorder F41.1 ; Major depressive disorder, recurrent episode, unspecified severity F33.9 ; PTSD (post-traumatic stress disorder) F43.10 ; Eating disorder F50.9 and Attention-deficit hyperactivity disorder, predominantly hyperactive type F90.1 [facility] [address], [place] [address]- 1220 Jul, [facility] [address], [place] [address]- 9429 Jul, [facility] [address], [place] [address]- 9025 Jul, FCI 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 ; Type 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 ; Urinary tract infection, site not specified N39.0 ; Sepsis, unspecified organism A41.9 and Essential hypertension I10 [facility] [id number] [id number] Jul, [facility] [address], [place] [address] 27 Jul, 2017 [facility] [id number] [place] [address] 70759- 7891 Jul, Generalized anxiety disorder F41.1 [facility] [id number] [place] [address] 78623- 3291 15 Jul, 2017 [facility] [id number] [place] [address] 46784- 5489 Jul, Generalized anxiety disorder F41.1 [facility] [id number] [place] [address] 11371- 7103 May, Generalized anxiety disorder F41.1 ; Major depressive disorder, recurrent episode, unspecified severity F33.9 ; PTSD (post-traumatic stress disorder) F43.10 ; Eating disorder F50.9 and Attention-deficit hyperactivity disorder, predominantly hyperactive type F90.1 [facility] [id number] [place] [address] 92429- 8503 May, Diabetes E11.9 [facility] [id number] [place] [address] 18632 -7297 May, Acute non-recurrent maxillary sinusitis J01.00 and Diabetes E11.9 [facility] [address], [place] [address]- 7400 May, [facility] [id number] [place] [address] 45737- 8271 May, [facility] [id number] [place] [address] 09142- 3552 May, Generalized anxiety disorder F41.1 [facility] [id number] [place] [address] 53962- 4495 Apr, [facility] [address], [place] [address]- 4299 Apr, [facility] [id number] [place] [address] 33121- 0011 Apr, [facility] [id number] [place] [address] 00336- 2420 Apr, Generalized anxiety disorder F41.1 ; Major depressive disorder, recurrent episode, unspecified severity F33.9 ; PTSD (post-traumatic stress disorder) F43.10 ; Eating disorder F50.9 and Attention-deficit hyperactivity disorder, predominantly hyperactive type F90.1 [address] [id number] [place] [address] 11398- 4487 Apr, Major depressive disorder, recurrent, moderate F33.1 [place] [id number] [place] [address] 23999- 6698 Mar, Diabetes E11.9 [place] [id number] [place] [address] 97803- 3126 Mar, Attention-deficit hyperactivity disorder, combined type F90.2 [place] [id number] [place] [address] 02150- 8550 Mar, [place] [id number] [place] [address] 74136- 5761 Mar, Diabetes E11.9 [place] [id number] [place] [address] 01487- 3692 Mar, FCI 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 ; Psoriatic arthritis L40.50 ; Other specified 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 and 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 I10 [address] [id number] [place] [address] 05665- 3228 February, Back pain M54.9 [id number] [place] [address] 69609- 6012 February, Attention-deficit hyperactivity disorder, combined type F90.2 [place] [id number] [place] [address] 62531- 7380 February, Major depressive disorder, recurrent episode, unspecified severity F33.9 and Generalized anxiety disorder F41.1 [place] [id number] [place] [address] 90745- 0202 Jan, Attention-deficit hyperactivity disorder, combined type F90.2 [facility] [id number] [place] [address] 29729- 8622 Jan, Major depressive disorder, recurrent, moderate F33.1 ; Generalized anxiety disorder F41.1 and Attention-deficit hyperactivity disorder , combined type F90.2 [facility] [id number] [place] [address] 77140- 7024 Dec, Major depressive disorder, recurrent episode, unspecified severity F33.9 ; Generalized anxiety disorder F41.1 and Attention-deficit hyperactivity disorder, predominantly hyperactive type F90.1 [facility] [id number] [place] [address] 57069- 8112 Dec, Major depressive disorder, recurrent episode, unspecified severity F33.9 and Generalized anxiety disorder F41.1 [facility] [id number] [place] [address] 14111- 8385 Dec, [facility] [id number] [place] [address] 81099- 9662 Dec, [facility] [id number] [place] [address] 69511- 8437 Dec, Major depressive disorder, recurrent episode, unspecified severity F33.9 and Generalized anxiety disorder F41.1 [facility] [id number] [place] [address] 61837- 5167 Dec, Back pain M54.9 [facility] [id number] [place] [address] 15980- 0651 Dec, Eustachian tube dysfunction, right H69.81 and Arthritis M19.90 [facility] [id number] [place] [address] 60211- 0163 Dec, [facility] [id number] [place] [address] 39652- 4382 Dec, [facility] [address] [place] [address]- 6818 07 Dec, 2016 Major depressive disorder, recurrent episode, unspecified severity F33.9 [facility] [id number] [place] [address] 39781- 9622 Oct, [facility] [id number] [place] [address] 68488 -3162 Oct, Acute non-recurrent pansinusitis J01.40 and Sore throat J02.9 [facility] [id number] [place] [address] 13339- 0249 Oct, Major depressive disorder, recurrent episode, unspecified severity F33.9 [facility] [id number] [place] [address] 49792- 5069 Oct, Major depressive disorder, recurrent episode, unspecified severity F33.9 and Generalized anxiety disorder F41.1 [facility] [id number] [place] [address] 24006- 5957 Sep, [facility] [id number] [place] [address] 99784- 6049 Sep, Major depressive disorder, recurrent episode, unspecified severity F33.9 [facility] [id number] [place] [address] 55169- 2527 Sep, Major depressive disorder, recurrent episode, unspecified severity F33.9 [facility] [id number] [place] [address] 78339 -1934 Sep, Sore throat J02.9 [facility] [id number] [place] [address] 11840- 7157 15 Sep, 2016 Generalized anxiety disorder F41.1 ; Major depressive disorder, recurrent episode, unspecified severity F33.9 and Attention-deficit hyperactivity disorder, predominantly hyperactive type F90.1 [facility] [address] [place] [address] 53998- 9886 08 Sep, 2016 Major depressive disorder, recurrent episode, unspecified severity F33.9 and Generalized anxiety disorder F41.1 [facility] [id number] [place] [address] 60468- 0065 07 Sep, 2016 Psoriatic arthritis L40.50 [facility] [id number] [place] [address] 76344- 8379 02 Sep, 2016 Diabetes E11.9 ; FCI 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 ; Back pain M54.9 and Encounter for immunization Z23 [facility] [id number] [place] [address] 51898- 1478 Aug, [facility] [id number] [place] [address] 04748- 8603 Aug, [facility] [id number] [place] [address] 89122- 8153 Jul, Major depressive disorder, recurrent episode, unspecified severity F33.9 ; Attention-deficit hyperactivity disorder, predominantly hyperactive type F90.1 and Generalized anxiety disorder F41.1 [facility] [id number] [place] [address] 56941- 4106 Jul, [facility] [id number] [place] [address] 57253- 7824 22 Jul, 2016 Major depressive disorder, recurrent, in partial remission F33.41 and Generalized anxiety disorder F41.1 [facility] [id number] [place] [address] 13523- 0967 Jul, [facility] [id number] [place] [address] 60669- 5936 19 Jul, 2016 [facility] [id number] [place] [address] 77947- 3019 13 Jul, 2016 [facility] [id number] [place] [address] 84773- 9840 Jul, [facility] [id number] [place] [address] 83333- 8306 12 Jul, 2016 Diabetes E11.9 [facility] [id number] [place] [address] 47298- 5395 May, [facility] [address], [place] [address]- 4251 May, [facility] [id number] [place] [address] 35634- 0220 May, [facility] [id number] [place] [address] 58289- 4460 May, Major depressive disorder, recurrent episode, unspecified severity F33.9 ; Generalized anxiety disorder F41.1 and Attention-deficit hyperactivity disorder, predominantly hyperactive type F90.1 [facility] [id number] [place] [address] 26320- 3919 May, [facility] [id number] [place] [address] 10011- 2792 May, Diabetes E11.9 [facility] [id number] [place] [address] 01806- 0359 May, [facility] [id number] [place] [address] 69386- 9514 May, [facility] [address] [place] [id number] May, Diabetes E11.9 ; Generalized anxiety disorder F41.1 and Nausea R11.0 [facility] [address] [place] [address] 23960- 2438 May, Psoriatic arthritis L40.50 and Candidiasis of female genitalia B37.3 [facility] [address] [address]- 6830 May, [facility] [id number] [place] [address] 32266- 7971 Apr, [facility] [id number] [place] [address] 10104- 8103 Apr, [facility] [id number] [place] [address] 88010- 7493 Apr, [facility] [address], [place] [address]- 6492 Apr, Generalized anxiety disorder F41.1 ; Major depressive disorder, recurrent episode, unspecified severity F33.9 and Attention-deficit hyperactivity disorder, predominantly hyperactive type F90.1 [facility] [address], [place] [address]- 8837 Apr, [facility] [id number] [place] [address] 98169- 9172 Apr, [facility] [id number] [place] [address] 07917- 6027 Apr, [facility] [id number] [place] [address] 10467- 3371 Apr, [facility] [id number] [place] [address] 28393- 0117 Apr, [facility] [id number] [place] [address] 12778- 4384 Mar, Attention-deficit hyperactivity disorder, predominantly hyperactive type F90.1 [facility] [id number] [place] [address] 23122- 0840 Mar, [facility] [id number] [place] [address] 64011- 3632 Mar, [facility] [address], [place] [address]- 0327 Mar, Major depressive disorder, recurrent episode, unspecified severity F33.9 and Generalized anxiety disorder F41.1 [facility] [id number] [place] [address] 36602- 5602 February, Diabetes E11.9 [facility] [address], [place] [address] February, OME (otitis media with effusion), bilateral H65.93 [facility] [id number] [place] [address] 08651- 7102 February, Back pain M54.9 [facility] [address], [place] [address]- 2664 February, [facility] [id number] [place] [phone] February, Nausea R11.0 [facility] [id number] [place] [address] February, [facility] [id number] [place] [address] February, Pre-op evaluation Z01.818 ; Type 2 diabetes mellitus with hyperglycemia E11.65 and [facility] 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 [facility] [id number] [place] [address] February, [facility] [id number] [place] [address] February, Right otitis externa H60.91 [facility] [id number] [place] [address] Jan, [facility] [id number] [place] [address] Jan, Psoriatic arthritis L40.50 and Arthralgia, unspecified joint M25.50 [facility] [id number], [place] [address] Jan, Major depressive disorder, recurrent episode, unspecified severity F33.9 ; Generalized anxiety disorder F41.1 and Attention-deficit hyperactivity disorder, unspecified type F90.9 [facility] [id number] [address] Jan, [place] [id number] [place] [address] 40896- 8602 Jan, [facility] [id number] [place] [address] 66860- 0518 Jan, Major depressive disorder, recurrent episode, unspecified severity F33.9 and Generalized anxiety disorder F41.1 [facility] [address], [place] [address]- 1073 Jan, [facility] [id number] [place] [address] 81667- 2140 Dec, 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 I10 and Arthritis M19.90 [facility] [id number] [place] [address] 79836- 6598 Dec, [facility] [id number] [place] [address] 11751- 2823 Dec, [facility] [id number] [place] [address] 55623- 0768 Dec, [facility] [id number] [place] [address] 44035- 6605 Dec, [facility] [id number] [place] [address] 37316- 5960 Dec, [facility] [id number] [place] [address] 69214- 0938 Dec, Major depressive disorder, recurrent episode, unspecified severity F33.9 and Generalized anxiety disorder F41.1 [facility] [id number] [place] [address] 43313- 2432 Dec, Diabetes E11.9 ; Back pain M54.9 ; Thrush B37.0 and 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 I10 [facility] [id number] [place] [address] 35220- 0568 18 Dec, 2015 Major depressive disorder, recurrent episode, unspecified severity F33.9 and Generalized anxiety disorder F41.1 [facility] [id number] [place] [address] 16523- 5014 04 Dec, 2015 Major depressive disorder, recurrent episode, in partial or unspecified remission 296.35 ; Major depressive disorder, recurrent episode, unspecified severity F33.9 and Generalized anxiety disorder 300.02 [facility] [id number] [place] [address] 83754- 0450 Dec, [facility] [id number] [place] [address] 02941- 3713 Oct, [facility] [id number] [place] [address] 96587- 2585 Oct, [facility] [id number] [place] [address] 36617- 7034 Oct, [facility] [id number] [place] [address] 52453- 3234 Oct, [facility] [id number] [place] [address] 40640- 2293 Oct, Major depressive disorder, recurrent, moderate F33.1 and Attention-deficit hyperactivity disorder, unspecified type F90.9 [facility] [id number] [place] [address] 86163- 7643 Oct, [facility] (current) use of opiate analgesic Z79.891 [facility] [id number] [place] [address] 64406- 8044 Oct, [facility] [facility] [id number] [place] [address] 31772- 5185 Oct, [facility] [id number] [place] [address] 64944 -7769 Sep, URI (upper respiratory infection) J06.9 ; Psoriasis L40.9 ; Cough R05 and Tobacco abuse Z72.0 [facility] [id number] [place] [address] 82365- 2652 Sep, Major depressive disorder, recurrent episode, in partial or unspecified remission 296.35 ; Generalized anxiety disorder 300.02 and ADHD, 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 [facility] [id number] [place] [address] 40458 -0668 Sep, Acute sinusitis, unspecified J01.90 [facility] [id number] [place] [address] 48964- 3268 Sep, [facility] [address], [place] [address]- 2166 Sep, Major depressive disorder, recurrent, moderate F33.1 ; Generalized anxiety disorder F41.1 and Attention-deficit hyperactivity disorder , combined type F90.2 [facility] [id number] [place] [address] 27201- 7680 Sep, [facility] [id number] [place] [address] 05218- 2587 Aug, [facility] [id number] [place] [address] 07215- 4747 Aug, [facility] [id number] [place] [address] 74044- 8708 Aug, Diabetes E11.9 and Anxiety F41.9 [facility] [id number] [place] [address] 02320- 8299 Aug, Major depressive disorder, recurrent episode, unspecified severity F33.9 and Generalized anxiety disorder F41.1 [facility] [id number] [place] [address] 69341- 3707 Aug, [facility] [id number] [place] [address] 98782- 9639 Jul, [facility] [id number] [place] [address] 45524- 3305 Jul, [facility] [id number] [place] [address] 27784- 3316 Jul, [facility] [id number] [place] [address] 78248- 4597 Jul, [facility] [id number] [place] [address] 60920- 7309 Jul, Major depressive disorder, recurrent episode, in partial or unspecified remission 296.35 ; Generalized anxiety disorder 300.02 and ADHD, 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 [facility] [id number], [place] [address]- 7834 Jul, Major depressive disorder, recurrent episode, in partial or unspecified remission 296.35 ; Generalized anxiety disorder 300.02 and ADHD, 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 [facility] [id number] [place] [address] 46354- 9527 Jul, [facility] [id number] [place] [address] 89891- 6475 May, [facility] [id number] [place] [address] 37601- 0248 May, [facility] [id number] [place] [address] 35710- 2662 May, DM w/o complication type II 250.00 ; Dyspepsia 536.8 and PAD (peripheral artery disease) 443.9 [facility] [id number] [place] [address] 50986- 4576 May, Major depressive disorder, recurrent episode, moderate 296.32 and Generalized anxiety disorder 300.02 [facility] [id number] [place] [address] 51119- 4581 May, [facility] [id number] [place] [address] 91302- 0924 May, Major depressive disorder, recurrent episode, moderate 296.32 and Generalized anxiety disorder 300.02 [facility] [id number] [place] [address] 38819- 5923 May, [facility] [id number] [place] [address] 38322- 0907 Apr, [facility] [id number] [place] [address] 53037- 8342 Apr, Major depressive disorder, recurrent episode, moderate 296.32 and Generalized anxiety disorder 300.02 [facility] [id number] [place] [address] 50154- 3928 Apr, [facility] [id number], [place] [address]- 1880 Apr, [facility] [id number] [place] [address] 19889- 9677 Apr, Generalized anxiety disorder 300.02 ; ADHD, 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 and Depression, major, recurrent, moderate 296.32 [facility] [address], [place] [address]- 3732 Apr, Major depressive disorder, recurrent episode, moderate 296.32 and Generalized anxiety disorder 300.02 [facility] [address], [place] [address]- 2681 Apr, [facility] [id number] [place] [address] 12107- 0797 Apr, [facility] [id number] [place] [address] 54649- 2061 Mar, [facility] [id number] [place] [address] 67655- 8181 Mar, Major depressive disorder, recurrent episode, moderate 296.32 and Generalized anxiety disorder 300.02 [facility] [id number] [place] [address] 93446- 9396 Mar, ADHD, 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 ; Major depressive disorder, recurrent episode, severe, without mention of psychotic behavior 296.33 and Generalized anxiety disorder 300.02 [facility] [address], [place] [address]- 5342 February, Major depressive disorder, recurrent episode, moderate 296.32 and Generalized anxiety disorder 300.02 [facility] [address], [place] [address]- 5903 February, [facility] [id number] [place] [address] 99900- 0508 February, [facility] [address], [place] [address]- 4626 February, [facility] [id number], [place] [address]- 1438 February, [facility] [address] 0539 February, DM w/o complication type II 250.00 ; Impacted cerumen 380.4 ; Essential hypertension, benign 401.1 and Irritable colon 564.1 [facility] [id number] [place] [address] 01580- 0616 February, [facility] [address] [facility] [id number] [place] [address], [place] [address]- 5252 February, [facility] [id number] [place] [address], [place]- 5700 Jan, [facility] [id number] [place] [address]- 7608 Dec, [facility] [id number] [place] [address], [place] [address]- 4422 Dec, [facility] [id number], [place] [address]- 2307 Dec, [facility] [id number] [place] [address]- 5757 Dec, [facility] [id number], [place] [address]- 2085 Dec, [facility] [id number] [place] [address]- 2811 Dec, [facility] [id number], [place] [address]- 2975 Dec, [facility] [id number] [place] [address]- 3247 Dec, [facility] [id number] [place] [address]- 0296 Dec, [facility] [id number], [place] [address]- 8936 Dec, [facility] [place] [facility] [address] [id number] [place] [address]- 7333 Dec, [facility] [place] [facility] [address] [id number] [place] [address]- 4946 Dec, [facility] [place] [facility] [address] [id number] [place] [address]- 3632 Dec, [facility] [place] [facility] [address] [id number] [place] [address]- 8446 Dec, [facility] [place] [facility] [address] [id number] [place] [address]- 9905 Dec, [facility] [place] [facility] [address] [id number] [place] [address]- 3626 Dec, [facility] [place] [facility] [address] [id number] [place] [address]- 6619 Oct, [facility] [place] [facility] [address] [id number] [address]- 6888 Oct, [facility] [place] [facility] [address] [id number] [place] [address]- 6570 Oct, [facility] [place] [facility] [address] [id number] [place] [address]- 7925 Oct, [facility] [place] [facility] [address] [id number] [address]- 2645 Oct, [facility] [place] [facility] [address] [id number], [place] [address]- 3741 Oct, [facility] [place] [facility] [address] [id number] [place] [address]- 0102 Oct, [facility] [place] [facility] [address] [id number], [place] [address]- 8086 Oct, [facility] [place] [facility] [address] [id number] [place] [address]- 8646 Oct, [facility] [place] [facility] [address] [id number] [place] [address]- 2881 Oct, [facility] [place] [facility] [address] [id number] [place] 1697 Oct, [facility] [place] [facility] [address] [id number] [place] [address]- 1168 Sep, [facility] [place] [facility] [address] [id number] [place] [address]- 0184 Sep, [facility] [place] [facility] [address] [id number] [place] [address]- 2372 Sep, [facility] [place] [facility] [address] [id number] [place] [address]- 9708 Sep, [facility] [place] [facility] [address] [id number] [place] [address]- 4462 Sep, [facility] [place] [facility] [address] [id number] [place] [address]- 2513 Sep, [facility] [place] [facility] [address] [id number] [place] [address]- 2139 Sep, [facility] [place] [facility] [address] [id number] [place] [address]- 9837 Sep, [facility] [place] [facility] [address] [id number] [place] [address]- 4460 Aug, [facility] [place] [facility] [address] [id number] [place] [address]- 2586 Aug, [facility] [place] [facility] [address] [id number] [place] [address]- 2698 Aug, [facility] [place] [facility] [address] [id number] [place] [address]- 3513 Aug, [facility] [place] [facility] [address] [id number] [place] [address]- 1576 Aug, [facility] [place] [facility] [address] [id number] [place] [address]- 2420 Aug, [facility] [place] [facility] [address] [id number] [place] [address]- 5446 Aug, [facility] [place] [facility] [address] [id number] [place] [address]- 2202 Aug, [facility] [place] [facility] [address] [id number] [place] [address]- 6999 Aug, [facility] [place] [facility] [address] [id number] [place] [address]- 6078 Aug, [facility] [place] [facility] [address] [id number] [place] [address]- 9365 Aug, [facility] [place] [facility] [address] [id number] [place] [address]- 8193 Aug, [facility] [place] [facility] [address] [id number] [place] [address]- 6825 Aug, [facility] [place] [facility] [address] [id number] [place] [address]- 3774 Aug, [facility] [place] [facility] [address] [id number] [place] [address]- 3691 Jul, [facility] [place] [facility] [address] [id number] [place] [address]- 8770 Jul, [facility] [place] [facility] [address] [id number] [place] [address]- 0697 Jul, [facility] [place] [facility] [address] [id number] [address]- 1366 Jul, [facility] [place] [facility] [address] [id number] [place] [address]- 1869 Jul, [facility] [place] [facility] [address] [id number] [place] [address]- 1469 Jul, [facility] [place] [facility] [address] [id number] [place] [address]- 4488 Jul, [facility] [place] [facility] [address] [id number], [place] [address]- 9741 Jul, [facility] [place] [facility] [address] [id number] [place] [address]- 7631 Jul, [facility] [place] [facility] [address] [id number] [place] [address]- 8000 Jul, [facility] [place] [facility] [address] [id number] [place] [address]- 8836 Jul, [facility] [place] [facility] [address] [id number] [place] [address]- 6728 Jul, [facility] [place] [facility] [address] [id number] [place] [address]- 5805 Jul, [facility] [place] [facility] [address] [id number] [place] [address]- 7418 Jul, [facility] [place] [facility] [address] [id number] [place] [address]- 0426 May, [facility] [place] [facility] [address] [id number] [place] [address]- 8524 May, [facility] [place] [facility] [address] [id number] [place] [address]- 6743 May, [facility] [place] [facility] [address] [id number] [place] [address]- 9849 May, [facility] [place] [facility] [address] [id number] [place] [address]- 6371 May, [facility] [place] [facility] [address] [id number] [place] [address]- 0543 May, [facility] [place] [facility] [address] [id number] [place] [address]- 3032 May, [facility] [place] [facility] [address] [id number] [place] [address]- 7415 May, [facility] [place] [facility] [address] [id number] [place] [address]- 1452 May, [facility] [place] [facility] [address] [id number] [place] [address]- 6904 May, [facility] [place] [facility] [address] [id number] [place] [address]- 6978 May, [facility] [place] [facility] [address] [id number] [place] [address]- 8636 May, [facility] [place] [facility] [address] [id number] [place] [address]- 6998 Apr, [facility] [place] [facility] [address] [id number] [place] [address]- 2078 Apr, [facility] [place] [facility] [address] [id number] [place] [address]- 1721 Apr, [facility] [place] [facility] [address] [id number] [place] [address]- 8029 Apr, [facility] [place] [facility] [address] [id number] [place] [address]- 5281 Apr, [facility] [place] [facility] [address] [id number] [place] [address]- 1699 Apr, [facility] [place] [facility] [address] [id number] [place] [address]- 0774 Mar, [facility] [place] [facility] [address] [id number] [place] [address]- 0620 Mar, [facility] [place] [facility] [address] [id number] [place] [address]- 9055 Mar, [facility] [place] [facility] [address] [id number] [place] [address]- 1776 Mar, [facility] [place] [facility] [address] [id number] [place] [address]- 3715 Mar, [facility] [place] [facility] [address] [id number] [place] [address]- 1590 Mar, [facility] [place] [facility] [address] [id number] [place] [address]- 0948 Mar, [facility] [place] [facility] [address] [id number] [place] [address]- 9439 Mar, [facility] [place] [facility] [address] [id number] [place] [address]- 9330 Mar, [facility] [place] [facility] [address] [id number] [place] [address]- 6498 Mar, [facility] [place] [facility] [address] [id number] [place] [address]- 0166 Mar, [facility] [place] [facility] [address] [id number] [place] [address]- 9988 Mar, [facility] [place] [facility] [address] [id number] [place] [address]- 6573 Mar, [facility] [place] [facility] [address] [id number] [place] [address]- 1773 February, [facility] [place] [facility] [address] [id number] [place] [address]- 4050 February, [facility] [place] [facility] [address] [id number] [place] [address]- 4517 February, [facility] [place] [facility] [address] [id number] [place] [address]- 5763 February, [facility] [place] [facility] [address] [id number] [place] [address]- 3104 February, [facility] [place] [facility] [address] [id number] [place] [address]- 4084 February, [facility] [place] [facility] [address] [id number] [place] [address]- 7448 February, [facility] [place] [facility] [address] [id number] [place] [address]- 6151 February, [facility] [place] [facility] [address] [id number] [place] [address] February, [facility] [place] [facility] [address] [id number] [place] [address] February, [facility] [address] [id number] [place] [address] February, [facility] [place] [facility] [address] [id number] [place] [address] February, [facility] [place] [facility] [address] [id number] [place] [address] February, [facility] [place] [facility] [address] [id number] [place] [address] February, [facility] [place] [facility] [address] [id number] [place] [address] Jan, [facility] [place] [facility] [address] [id number] [place] [address] Jan, [facility] [place] [facility] [address] [id number] [place] [address] Jan, [facility] [place] [facility] [address] [id number] [place] [address] Jan, [facility] [place] [facility] [address] [id number] [place] [address] Jan, [facility] [place] [facility] [address] [id number] [place] [address] Jan, [facility] [place] [facility] [address] [id number] [place] [address] Jan, [facility] [place] [facility] [address] [id number] [place] [address] Jan, [facility] [place] [facility] [address] [id number] [place] [address] Jan, [facility] [place] [facility] [address] [id number] [place] [address] Dec, [facility] [place] [facility] [address] [id number] [place] [address] Dec, [facility] [place] [facility] [address] [id number] [place] [address] Dec, [facility] [place] [facility] [address] [id number] [place] [address] Dec, [facility] [place] [facility] [address] [id number] [place] [address] Dec, [facility] [place] [facility] [address] [id number] [place] [address] Dec, [facility] [place] [facility] [address] [id number] [place] [address] Dec, [facility] [place] [facility] [address] [id number] [place] [address] Dec, [facility] [place] [facility] [address] [facility] [id number] [place] [address] Dec, [facility] [place] [facility] [address] [id number] [place] [address] Dec, [facility] [place] [facility] [address] [id number] [place] [address] 14 Dec, 2013 [facility] [place] [facility] [address] [id number] [place] [address] Dec, [facility] [place] [facility] [address] [facility] [id number] [place] [address] Dec, [facility] [place] [facility] [address] [id number] [address] 10 Dec, 2013 [facility] [place] [facility] [address] [id number] [place] [address] Dec, [facility] [place] [facility] [address] [id number] [place] [address] 06 Dec, 2013 [facility] [place] [facility] [address] [id number] [place] [address] 06 Dec, 2013 [facility] [place] [facility] [address] [id number], [place] [address] Oct, [facility] [address] [id number] [place] [address] Oct, [facility] [place] [facility] [address] [id number] [place] [address] Oct, [facility] [place] [facility] [address] [id number] [place] [address] Oct, [facility] [place] [facility] [address] [id number] [place] [address] Oct, [facility] [place] [facility] [address] [id number] [place] [address] Oct, [facility] [place] [facility] [address] [id number] [place] [address] Oct, [facility] [address] [id number] [place] [address] Oct, [facility] [place] [facility] [address] [id number] [place] [address] Oct, [facility] [place] [facility] [address] [id number] [place] [address] Oct, [facility] [place] [facility] [address] [id number] [place] [address] Oct, [facility] [place] [facility] [address] [id number] [place] [address] Oct, [facility] [place] [facility] [address] [id number], [place] [address] Oct, [facility] [place] [facility] [address] [id number] [place] [address] Oct, [facility] [place] [facility] [address] [id number] [place] [address] Sep, [facility] [place] [facility] [address] [id number] [place] [address] Sep, [facility] [place] [facility] [address] [id number] [place] [address] 30 Sep, 2013 [facility] [place] [facility] [address] [id number] [place] [address] 30 Sep, 2013 [facility] [place] [facility] [address] [id number] [place] [address] Sep, [facility] [place] [facility] [address] [id number] [place] [address] Sep, [facility] [place] [facility] [address] [id number] [place] [address] Sep, [facility] [place] [facility] [address] [id number] [place] [address] Sep, [facility] [place] [facility] [address] [id number] [place] [address] Sep, [facility] [place] [facility] [address] [id number] [place] [address] Sep, [facility] [place] [facility] [address] [id number] [place] [address] 2381 16 Sep, 2013 [facility] [place] [facility] [address] [id number] [place] [address] 4368 16 Sep, 2013 [facility] [place] [facility] [address] [id number] [place] [address] 4395 13 Sep, 2013 [facility] [place] [facility] [address] [id number] [place] [address] 7886 13 Sep, 2013 [facility] [place] [facility] [address] [id number] [place] [address] 2546 10 Sep, 2013 [facility] [place] [facility] [address] [id number] [place] [address]- 3146 10 Sep, 2013 [facility] [place] [facility] [address] [id number] [place] [address] 6796 02 Sep, 2013 [facility] [place] [facility] [address] [id number] [place] [address]82 02 Sep, 2013 [facility] [place] [facility] [address] [id number] [place] [address] 7309 15 Aug, 2013 [facility] [place] [facility] [address] [id number] [place] [address]- 0415 15 Aug, 2013 [facility] [place] [facility] [address] [id number] [place] [address] 16 Jul, 2013 [facility] [place] [facility] [address] [id number] [place] [address]- 4306 16 Jul, 2013 [facility] [place] [facility] [address] [id number] [place] [address]- 5329 14 Jul, 2013 [facility] [place] [facility] [address] [id number] [place] [address]- 3390 14 Jul, 2013 [facility] [place] [facility] [address] [id number] [place] [address]- 8540 08 Jul, 2013 [facility] [place] [facility] [address] [id number], [place] [address] 3[address] 20 Sep, 2012 [facility] [place] [facility] [address] [id number], [place] [address]88 19 Sep, 2012 [facility] [place] [facility] [address] [id number], [place] [address] 7951 13 Sep, 2012 [facility] [place] [facility] [address] [id number], [place] [address] 1327 08 Sep, 2012 [facility] [place] [facility] [address] [id number], [place] [address] 95[address] 06 Sep, 2012 [facility] [place] [facility] [address] [id number], [place] [address] 9215 06 Sep, 2012 [facility] [place] [facility] [address] [id number], [place] [address] 5514 06 Sep, 2012 [facility] [place] [facility] [address] [id number], [place] [address]- 7[address] 03 Sep, 2012 [facility] [place] [facility] [address] [id number] [place] [address]- 1575 May, [facility] [address] [id number] [place] [address] 5409 May, [facility] [place] [facility] [address] [id number] [place] [address]- 1036 May, [facility] [address] [id number] [place] [address]- 2038 May, [facility] [place] [facility] [address] [id number] [place] [address]- 1746 Apr, [facility] [address] [id number] [place] [address]- 9537 Apr, [facility] [place] [facility] [address] [id number] [place] [address]- 6441 Apr, [facility] [address] [id number] [place] [address]- 0281 Mar, [facility] [place] [facility] [address] [id number] [place] [address]- 2645 Mar, [facility] [place] [facility] [address] [id number] [place] [address]- 5124 Mar, [facility] [address] [id number] [place] [address] 3541 Mar, [facility] [place] [facility] [address] [id number] [place] [address]- 1327 February, [facility] [place] [facility] [address] [id number] [place] [address] February, [facility] [place] [facility] [address] [id number] [place] [address] Jan, [facility] [place] [facility] [address] [id number] [place] [address] Dec, [facility] [place] [facility] [address] [id number] [place] [address] Dec, [facility] [place] [facility] [address] [id number] [place] [address]- 5435 05 Dec, 2012 [facility] [address] [id number] [place] [address]- 6711 05 Dec, 2012 [facility] [address] [id number] [place] [address]- 3598 28 Dec, 2012 [facility] [place] [facility] [address] [id number] [place] [address]- 5303 27 Dec, 2012 [facility] [address] [id number] [place] [address]- 0577 Dec, [facility] [address] [id number] [place] [address]- 7211 25 Dec, 2012 [facility] [address] [id number] [place] [address]- 3647 22 Dec, 2012 [facility] [address] [id number] [place] [address]- 1608 15 Dec, 2012 [facility] [address] [id number] [place] [address]- 9229 14 Dec, 2012 [facility] [address] [id number] [place] [address]- 4854 Oct, [facility] [address] [id number] [place] [address] 8299 Oct, [facility] [place] [facility] [address] [id number] [place] [address]- 1447 09 Oct, 2012 [facility] [place] [facility] [address] [id number] [place] [address]- 4476 Oct, [facility] [place] [facility] [address] [id number] [place] [address]- 2081 13 Sep, 2012 [facility] [place] [facility] [address] [id number] [place] [address]- 0499 Sep, [facility] [address] [id number] [place] [address]- 0154 Sep, [facility] [place] [facility] [address] [id number] [place] [address]- 4122 Sep, [facility] [place] [facility] [address] [id number] [place] [address]- 2791 Sep, [facility] [place] [facility] [address] [id number] [place] [address]- 1683 Sep, [facility] [place] [facility] [address] [id number] [place] [address]- 4517 Aug, [facility] [place] [facility] [address] [id number] [place] [address]- 9569 Aug, [facility] [place] [facility] [address] [id number] [place] [address]- 1009 Aug, [facility] [place] [facility] [address] [facility] [id number] [place] [address]- 9785 Aug, [facility] [place] [facility] [address] [id number] [place] [address]- 0029 Aug, [facility] [place] [facility] [address] [id number] [place] [address]- 6600 Aug, [facility] [place] [facility] [address] [facility] [id number] [place] [address]- 1197 Jul, [facility] [place] [facility] [address] [id number] [place] [address]- 9357 Jul, [facility] [place] [facility] [address] [id number], [place] [address]- 2282 Jul, [facility] [place] [facility] [address] [id number] [place] [address]- 5366 Jul, [facility] [place] [facility] [address] [facility] [id number] [place] [address]- 1753 Jul, [facility] [place] [facility] [address] [facility] [id number], [place] [address]- 7013 Jul, [facility] [place] [facility] [address] [id number] [place] [address]- 2066 27 Jul, 2012 [facility] [place] [facility] [address] [id number] [place] [address]- 0496 21 Jul, 2012 [facility] [place] [facility] [address] [id number] [place] [address]- 0996 20 Jul, 2012 [facility] [place] [facility] [address] [id number] [place] [address]- 9566 11 Jul, 2012 [facility] [place] [facility] [address] [id number] [place] [address]- 1437 Jul, [facility] [place] [facility] [address] [id number] [place] [address]- 3030 May, [facility] [place] [facility] [address] [id number] [place] [address]- 2498 May, [facility] [place] [facility] [address] [id number] [place] [address]- 5984 May, [facility] [place] [facility] [address] [id number] [place] [address]- 0976 May, [facility] [place] [facility] [address] [id number] [place] [address]- 2424 Apr, [facility] [place] [facility] [address] [id number] [place] [address]- 9792 Apr, [facility] [place] [facility] [address] [id number] [place] [address]- 0666 Apr, [facility] [place] [facility] [address] [id number] [place] [address]- 8350 Apr, [facility] [place] [facility] [address] [id number] [place] [address]- 254 Apr, [facility] [place] [facility] [address] [id number] [place] [address]- 4092 Apr, [facility] [place] [facility] [address] [id number] [place] [address]- 6515 13 Apr, 2012 [facility] [place] [facility] [address] [id number] [place] [address]- 4183 09 Apr, 2012 [facility] [place] [facility] [address] [id number] [place] [address]- 0415 28 Mar, 2012 [facility] [place] [facility] [address] [id number] [place] [address]- 0361 27 Mar, 2012 [facility] [place] [facility] [address] [id number] [place] [address]- 5665 20 Mar, 2012 [facility] [place] [facility] [address] [id number] [place] [address]- 2062 15 Mar, 2012 [facility] [place] [facility] [address] [id number] [place] [address]- 0496 14 Mar, 2012 [facility] [place] [facility] [address] [id number] [place] [address]- 4095 Mar, [facility] [place] [facility] [address] [id number] [place] [address]- 4737 Mar, [facility] [place] [facility] [address] [id number] [place] [address]- 1668 Mar, [facility] [place] [facility] [address] [id number] [place] [address]- 1228 08 Mar, 2012 [facility] [place] [facility] [address] [id number] [place] [address]- 0655 February, [facility] [place] [facility] [address] [id number] [place] [address]- 7040 February, [facility] [place] [facility] [address] [id number] [place] [address]- 8271 February, [facility] [place] [facility] [address] [id number] [place] [address]- 3676 February, [facility] [place] [facility] [address] [id number] [place] [address]- 4248 13 Jan, 2012 [facility] [place] [facility] [address] [id number] [place] [address]- 9474 03 Jan, 2012 [facility] [place] [facility] [address] [id number] [place] [address]- 9611 28 Dec, 2011 [facility] [place] [facility] [address] [id number] [place] [address]- 5086 15 Dec, 2011 [facility] [place] [facility] [address] [id number] [place] [address]- 0216 14 Dec, 2011 [facility] [place] [facility] [address] [id number] [place] [address]- 7896 07 Dec, 2011 [facility] [place] [facility] [address] [id number] [place] [address]- 5190 28 Dec, 2011 [facility] [place] [facility] [address] [id number] [place] [address]- 4546 27 Dec, 2011 [facility] [place] [facility] [address] [id number] [place] [address]- 4066 Dec, [facility] [place] [facility] [address] [id number] [place] [address]- 7671 Dec, [facility] [place] [facility] [address] [id number] [place] [address]- 6606 Dec, [facility] [place] [facility] [address] [facility] [id number] [place] [address]- 6424 Dec, [facility] [place] [facility] [address] [facility] [id number] [place] [address]- 4414 Dec, [facility] [place] [facility] [address] [id number] [place] [address]- 6142 Dec, [facility] [place] [facility] [address] [id number] [place] [address]- 8882 Oct, [facility] [place] [facility] [address] [id number] [place] [address]- 9944 Oct, [facility] [place] [facility] [address] [id number], [place] [address]- 1916 Oct, [facility] [place] [facility] [address] [id number] [place] [address]- 0830 Oct, [facility] [place] [facility] [address] [id number] [place] [address]- 0792 Oct, [facility] [place] [facility] [address] [id number] [place] [address]- 3547 Oct, [facility] [place] [facility] [address] [id number], [place] [address]- 5445 16 Oct, 2011 [facility] [place] [facility] [address] [id number] [place] [address]- 1043 Oct, [facility] [place] [facility] [address] [id number] [place] [address]- 8639 Sep, [facility] [place] [facility] [address] [id number], [place] [address]- 4955 Sep, [facility] [place] [facility] [address] [id number], [place] [address]- 7678 Sep, [facility] [place] [facility] [address] [id number], [place] [address]- 6167 Aug, [facility] [place] [facility] [address] [id number], [place] [address]- 0259 Aug, [facility] [place] [facility] [address] [id number], [place] [address]- 5016 16 Aug, 2011 [facility] [place] [facility] [address] [id number], [place] [address]- 8274 14 Aug, 2011 [facility] [place] [facility] [address] [id number], [place] [address]- 4403 Aug, [facility] [place] [facility] [address] [id number], [place] [address]- 2091 19 Jul, 2011 [facility] [place] [facility] [address] [id number], [place] [address]- 6888 13 Jul, 2011 [facility] [place] [facility] [address] [facility] [id number][place] [address] [address]75 May, [facility] [address] [facility] [id number], [place] [address]- 7018 Dec, [facility] [id number], [place] [address]- 1556 Oct, [facility] [id number], [place] [address]- 7222 Sep, [facility] [address] [id number], [place] [address]- 3785 Sep, [facility] [id number], [place] [address]- 6118 Sep, IMMUNIZATIONS No Known Immunizations SOCIAL HISTORY Never Assessed REASON FOR VISIT Admission follow up PLAN OF CARE Activity Details Follow Up prn Reason: VITAL SIGNS MEDICATIONS Medication Instructions Dosage Frequency Start Date End Date Duration Status Probiotic - Active PreserVision AREDS - Active Acetaminophen 500 MG Orally every 6 hrs 2 tablets as needed 6h Active Multivitamin Adult - Orally, bubble pack for senior care Once a day 1 tablet 24h Active Lisinopril 10 mg Orally Once a day 1 tablet 24h 30 Active Seroquel 50 mg Orally Once a day 1 tablet 24h Aug, 30 day(s) Active Wellbutrin XL 150 MG Orally Once a day 3 in the morning 24h 30 days Active BD Insulin Syringe 30G X 1/2 subcutaneously 4 times a day use with insulin 6h May, Active NovoLog Flexpen 100 UNIT/ML Subcutaneous 3 times a day 12 u 8h Sep, Active Estradiol 0.5 MG 1 tablet Active Tresiba FlexTouch 100 UNIT/ML 60u at bedtime Aug, Active Escitalopram Oxalate 20 MG Orally Once a day 1 tablet 24h 30 days Active Mirtazapine 15 MG Orally Once a day 1 tablet at bedtime 24h Active Osteo Bi-Flex Regular Strength 250-200 MG Orally Once a day 1 tablet with a meal 24h Active Tramadol HCl 50 mg Orally 3 times a day 1 tablet as needed 8h Active Omeprazole 20 MG Orally Once a day 1 capsule 24h Aug, 30 day(s ) Active Gabapentin 100 mg Orally twice a day as needed for anxiety 2 capsules Jul, 30 days Active RESULTS No Results PROCEDURES Procedure Date Ordered Result Body Site Minor complication (15 mins) Sep 13, 2017 INSTRUCTIONS MEDICATIONS ADMINISTERED No Known [...] veinous reflux Surgical History Left Knee SOA-Dr. Melendrez-[facility] 05/19/16 Surgical History Colonoscopy- Dr Castanon 01/26/2017 Hospitalization History surgeries Hospitalization History Left Knee SOA--Dr. Melendrez--[facility] Hospitalization History Septic shock, UTI-[facility] 07/27/17 Hospitalization History Multiple falls, hyperglycemia, sepsis 07/2017 Hospitalization History Alcoholism, depression, DM, Falls-[facility] 08/23/17 Hospitalization History COPD exacerbation-[facility] 11/25/17 Hospitalization History COPD exacerbation-[facility] 11/28/17
--- OUTSIDE RECORDS SUMMARY | 2018-05-10 03:22 | XMS REPORT ---
Author Author ABEL MELENDEZ [facility] Address [address] [place] [address] Care Team Providers Care Adoption Manager Name Role Phone ABEL MELENDEZ Unavailable PROBLEMS Type Condition ICD9-CM Code ZAT55-MG Code Onset Dates Condition Status SNOMED Code Problem Generalized anxiety disorder F41.1 Active 30481328 Problem Diabetes E11.9 Active 57207271 Problem Psoriasis L40.9 Active 6846651 Problem Tobacco abuse Z72.0 Active 60261569 Problem 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 I10 Active 39307807 Problem Back pain M54.9 Active 642857662 Problem Arthritis M19.90 Active 6409060 Problem prison 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 Active 015746420 Problem Psoriatic arthritis L40.50 Active 337334242 Problem Psychophysiological insomnia F51.04 Active 37613960 Problem Other specified 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 Active 444046070 Problem Obesity (BMI 30-39.9) E66.9 Active 021906756 Problem Major depressive disorder, recurrent, moderate F33.1 Active 85391358 Problem Essential hypertension I10 Active 67394042 Problem Type 2 diabetes mellitus with hyperglycemia E11.65 Active 970255338278155 Problem Alcoholism F10.20 Active 8044387 Problem Frequent falls R29.6 Active 190185442 Problem Benzodiazepine abuse F13.10 Active 394796487 Problem PTSD (post-traumatic stress disorder) F43.10 Active 97321351 Problem Eating disorder F50.9 Active 93364395 Problem Attention-deficit hyperactivity disorder, combined type F90.2 Active 88910902 Problem COPD exacerbation J44.1 Active 490757406 Problem Anxiety F41.9 Active 95982034 Problem Decubitus ulcer of left buttock, stage 2 L89.322 Active 157095784 Problem BMI 40.0-44.9, adult Z68.41 Active 862903606 Problem Alcohol abuse F10.10 Active 86458053 Problem Pneumonia due to methicillin resistant Staphylococcus aureus, unspecified laterality, unspecified part of lung J15.212 Active 713754754796674 Problem Type 2 diabetes mellitus with unspecified complications E11.8 Active 14752642 Problem Attention-deficit hyperactivity disorder, predominantly hyperactive type F90.1 Active 361272184 Problem Type 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 Active 39042325 Problem Ulcer of right foot, unspecified ulcer stage L97.519 Active 17433647 Problem Attention deficit R41.840 Active 06339509 Problem Mental disorder, not otherwise specified F99 Active 65081149 Problem Insomnia due to other mental disorder F51.05 Active 88285206 ALLERGIES No Information ENCOUNTERS Encounter Location Date Diagnosis [facility] [address], [place] [address] Mar, [facility] [id number] [place] [address] 28505- 0475 Mar, [facility] [id number] [place] [address] 72801- 0136 February, Yeast infection B37.9 [facility] [id number] [place] [address] 46893- 5245 February, [facility] [id number] [place] [address] 83003- 6509 Jan, [facility] [id number] [place] [address] 96490- 7410 Dec, Major depressive disorder, recurrent episode, unspecified severity F33.9 ; Generalized anxiety disorder F41.1 and Eating disorder F50.9 [facility] [address], [place] [address] 0[address] Dec, [facility] [id number] [place] [address] 38551- 0150 Dec, [facility] [id number] [place] [address] 18852- 3091 Dec, [facility] [id number] [place] [address] 93820- 9628 Dec, Increased urinary frequency R35.0 ; Frequent falls R29.6 ; Decubitus ulcer of left buttock, stage 2 L89.322 ; Benzodiazepine abuse F13.10 ; BMI 40.0-44.9, adult Z68.41 and Yeast infection B37.9 [facility] [address], [place] [address] Dec, [facility] [id number] [place] [address] 72284- 1477 Dec, [facility] [id number] [place] [address] 22877- 8397 Dec, Increased urinary frequency R35.0 [facility] [id number] [place] [address] 85686- 5641 Dec, Increased urinary frequency R35.0 [facility] [id number] [place] [address] 00845- 9825 Dec, Generalized anxiety disorder F41.1 ; Major depressive disorder, recurrent, moderate F33.1 and Psychophysiological insomnia F51.04 [facility] [id number] [place] [address] 05308- 1450 Dec, BMI 40.0-44.9, adult Z68.41 ; Type 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 ; Pneumonia due to methicillin resistant Staphylococcus aureus, unspecified laterality, unspecified part of lung J15.212 and COPD exacerbation J44.1 [facility] [address], [place] [address] Dec, [facility] [place] [id number] [place] [address] [id number] Dec, [facility] [place] [id number] [place] [address] [id number] Oct, [facility] [address], [place] [address] Oct, Frequency of urination R35.0 ; Bronchitis J40 and BMI 40.0- 44.9, adult Z68.41 [facility] [place] [id number] [id number] Oct, [facility] [id number] [place] [address] 94274- 3579 Oct, [facility] [id number] [place] [address] 34266- 9308 Oct, BMI 40.0-44.9, adult Z68.41 ; Type 2 diabetes mellitus with hyperglycemia E11.65 ; Essential hypertension I10 ; Vaginal yeast infection B37.3 ; Anxiety F41.9 and Alcoholism F10.20 [facility] [id number] [place] [address] 11175- 2321 Oct, [facility] [id number] [place] [address] 69824- 5910 Oct, [facility] [id number] [place] [address] 46319- 7814 Sep, [facility] [id number] [place] [address] 92256- 0109 Sep, Major depressive disorder, recurrent episode, unspecified severity F33.9 ; Generalized anxiety disorder F41.1 and Eating disorder F50.9 [facility] [address], [place] [address] Sep, Major depressive disorder, recurrent, moderate F33.1 ; Type 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 ; Alcohol abuse F10.10 ; Obesity (BMI 30-39.9) E66.9 and Psychophysiological insomnia F51.04 [facility] [address] [place] [address] 95272- 5306 06 Sep, 2017 Diabetes E11.9 and Generalized anxiety disorder F41.1 [facility] [address] [place] [address] 58263- 6453 05 Sep, 2017 Major depressive disorder, recurrent episode, unspecified severity F33.9 ; Generalized anxiety disorder F41.1 and Eating disorder F50.9 [address] [id number] [place] [address] 0[address] Sep, [facility] [id number] [place] [address] 09545- 1356 Aug, [facility] [id number] [place] [address] 88264- 2498 Aug, Insomnia due to other mental disorder F51.05 ; Mental disorder, not otherwise specified F99 ; Attention deficit R41.840 ; Ulcer of right foot, unspecified ulcer stage L97.519 ; Cough R05 ; Diabetes E11.9 ; Sore in mouth K13.79 ; Generalized anxiety disorder F41.1 ; Major depressive disorder , recurrent episode, unspecified severity F33.9 and BMI 40.0-44.9, adult Z68.41 [facility] [id number] [place] [address] 39901- 0503 Aug, [facility] [id number] [place] [address] 39732- 6367 Aug, [facility] [id number] [place] [address] 07982- 1011 Aug, [facility] [id number] [place] [address] 30957- 6072 Aug, [facility] [id number] [place] [address] 00225- 4922 Aug, Diabetes E11.9 [facility] [address] [place] [id number] Aug, Falling R29.6 ; Alcohol abuse F10.10 ; Major depressive disorder, recurrent episode, unspecified severity F33.9 ; 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 I10 ; Type 2 diabetes mellitus with unspecified complications E11.8 and 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 [facility] [id number] [place] [address] [id number] [phone] Aug, 2017 [address] [employer] [address] [place] [id number] Aug, Alcohol abuse F10.10 ; Major depressive disorder, recurrent episode, unspecified severity F33.9 ; Generalized anxiety disorder F41.1 ; prison 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 ; Psoriatic arthritis L40.50 and Diabetes E11.9 [facility] [place] [id number] [place] [address] [id number] Aug, [facility] [place] [id number] [id number] Jul, [facility] [id number] [place] [address] 78187- 5886 Jul, [facility] [id number] [place] [address] 92407- 8247 Jul, Generalized anxiety disorder F41.1 [facility] [id number] [place] [address] 78472- 1479 Jul, [facility] [id number] [place] [address] 46602- 9654 Jul, [facility] [id number] [place] [address] 60411- 2213 Jul, Generalized anxiety disorder F41.1 ; Major depressive disorder, recurrent episode, unspecified severity F33.9 ; PTSD (post-traumatic stress disorder) F43.10 ; Eating disorder F50.9 and Attention-deficit hyperactivity disorder, predominantly hyperactive type F90.1 [facility] [address], [place] [address] 69[address] Jul, [facility] [address], [place] [address]- 3466 Jul, [facility] [address], [place] [address]- 2497 Jul, prison 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 ; Type 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 ; Urinary tract infection, site not specified N39.0 ; Sepsis, unspecified organism A41.9 and Essential hypertension I10 [facility] [place] [id number] [id number] Jul, [facility] [address], [place] [address] 27 Jul, 2017 [facility] [id number] [place] [address] 51516- 9972 Jul, Generalized anxiety disorder F41.1 [facility] [id number] [place] [address] 12167- 4820 15 Jul, 2017 [facility] [id number] [place] [address] 74985- 3145 Jul, Generalized anxiety disorder F41.1 [facility] [id number] [place] [address] 76839- 6968 May, Generalized anxiety disorder F41.1 ; Major depressive disorder, recurrent episode, unspecified severity F33.9 ; PTSD (post-traumatic stress disorder) F43.10 ; Eating disorder F50.9 and Attention-deficit hyperactivity disorder, predominantly hyperactive type F90.1 [facility] [id number] [place] [address] 95180- 8504 May, Diabetes E11.9 [facility] [id number] [place] [address] 84670 -7956 May, Acute non-recurrent maxillary sinusitis J01.00 and Diabetes E11.9 [facility] [address], [place] [address]- 7995 May, [facility] [id number] [place] [address] 09601- 6000 May, [facility] [id number] [place] [address] 28554- 7646 May, Generalized anxiety disorder F41.1 [facility] [id number] [place] [address] 37637- 1927 Apr, [facility] [address], [place] [address]- 7386 Apr, [facility] [id number] [place] [address] 38597- 9277 Apr, [facility] [id number] [place] [address] 65231- 9957 Apr, Generalized anxiety disorder F41.1 ; Major depressive disorder, recurrent episode, unspecified severity F33.9 ; PTSD (post-traumatic stress disorder) F43.10 ; Eating disorder F50.9 and Attention-deficit hyperactivity disorder, predominantly hyperactive type F90.1 [place] [id number] [place] [address] 78792- 5801 Apr, Major depressive disorder, recurrent, moderate F33.1 [place] [id number] [place] [address] 29119- 9253 Mar, Diabetes E11.9 [address] [id number] [place] [address] 05886- 6314 Mar, Attention-deficit hyperactivity disorder, combined type F90.2 [address] [id number] [place] [address] 48919- 1452 Mar, [place] [id number] [place] [address] 42499- 4721 Mar, Diabetes E11.9 [place] [id number] [place] [address] 31481- 7657 Mar, prison 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 ; Psoriatic arthritis L40.50 ; Other specified 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 and 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 I10 [id number] [place] [address] 87494- 4233 February, Back pain M54.9 [place] [id number] [place] [address] 75217- 0530 February, Attention-deficit hyperactivity disorder, combined type F90.2 [place] [address] [id number] [place] [address] 25687- 6105 February, Major depressive disorder, recurrent episode, unspecified severity F33.9 and Generalized anxiety disorder F41.1 [address] [address] [id number] [place] [address] 26226- 0265 Jan, Attention-deficit hyperactivity disorder, combined type F90.2 [facility] [id number] [place] [address] 30749- 9574 Jan, Major depressive disorder, recurrent, moderate F33.1 ; Generalized anxiety disorder F41.1 and Attention-deficit hyperactivity disorder , combined type F90.2 [facility] [id number] [place] [address] 68704- 2674 Dec, Major depressive disorder, recurrent episode, unspecified severity F33.9 ; Generalized anxiety disorder F41.1 and Attention-deficit hyperactivity disorder, predominantly hyperactive type F90.1 [facility] [id number] [place] [address] 80147- 1231 Dec, Major depressive disorder, recurrent episode, unspecified severity F33.9 and Generalized anxiety disorder F41.1 [facility] [id number] [place] [address] 36235- 3775 Dec, [facility] [id number] [place] [address] 57420- 8369 Dec, [facility] [id number] [place] [address] 34295- 1025 Dec, Major depressive disorder, recurrent episode, unspecified severity F33.9 and Generalized anxiety disorder F41.1 [facility] [id number] [place] [address] 74000- 8235 Dec, Back pain M54.9 [facility] [id number] [place] [address] 11712- 4811 Dec, Eustachian tube dysfunction, right H69.81 and Arthritis M19.90 [facility] [id number] [place] [address] 19108- 8746 Dec, [facility] [id number] [place] [address] 01841- 7306 Dec, [facility] [address] [place] [address]- 9716 07 Dec, 2016 Major depressive disorder, recurrent episode, unspecified severity F33.9 [facility] [id number] [place] [address] 10629- 0442 Oct, [facility] [id number] [place] [address] 95279 -0837 Oct, Acute non-recurrent pansinusitis J01.40 and Sore throat J02.9 [facility] [id number] [place] [address] 83578- 5597 Oct, Major depressive disorder, recurrent episode, unspecified severity F33.9 [facility] [id number] [place] [address] 56287- 1184 Oct, Major depressive disorder, recurrent episode, unspecified severity F33.9 and Generalized anxiety disorder F41.1 [facility] [id number] [place] [address] 01736- 8438 Sep, [facility] [id number] [place] [address] 37766- 5235 Sep, Major depressive disorder, recurrent episode, unspecified severity F33.9 [facility] [id number] [place] [address] 94739- 8256 Sep, Major depressive disorder, recurrent episode, unspecified severity F33.9 [facility] [id number] [place] [address] 53871 -7681 Sep, Sore throat J02.9 [facility] [id number] [place] [address] 78566- 8516 15 Sep, 2016 Generalized anxiety disorder F41.1 ; Major depressive disorder, recurrent episode, unspecified severity F33.9 and Attention-deficit hyperactivity disorder, predominantly hyperactive type F90.1 [facility] [id number] [place] [address] 39899- 2168 08 Sep, 2016 Major depressive disorder, recurrent episode, unspecified severity F33.9 and Generalized anxiety disorder F41.1 [facility] [id number] [place] [address] 30291- 4202 07 Sep, 2016 Psoriatic arthritis L40.50 [facility] [id number] [place] [address] 91386- 3736 02 Sep, 2016 Diabetes E11.9 ; prison 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 ; Back pain M54.9 and Encounter for immunization Z23 [facility] [id number] [place] [address] 58574- 9543 Aug, [facility] [id number] [place] [address] 25898- 8887 Aug, [facility] [id number] [place] [address] 54038- 1534 Jul, Major depressive disorder, recurrent episode, unspecified severity F33.9 ; Attention-deficit hyperactivity disorder, predominantly hyperactive type F90.1 and Generalized anxiety disorder F41.1 [facility] [id number] [place] [address] 19360- 8937 Jul, [facility] [id number] [place] [address] 59179- 0764 22 Jul, 2016 Major depressive disorder, recurrent, in partial remission F33.41 and Generalized anxiety disorder F41.1 [facility] [id number] [place] [address] 10181- 1988 Jul, [facility] [id number] [place] [address] 54311- 3189 19 Jul, 2016 [facility] [id number] [place] [address] 09210- 4342 13 Jul, 2016 [facility] [id number] [place] [address] 36475- 3470 Jul, [facility] [id number] [place] [address] 96869- 6459 12 Jul, 2016 Diabetes E11.9 [facility] [id number] [place] [address] 64641- 7303 May, [facility] [address], [place] [address]- 8618 May, [facility] [id number] [place] [address] 21148- 6923 May, [facility] [id number] [place] [address] 81748- 6630 May, Major depressive disorder, recurrent episode, unspecified severity F33.9 ; Generalized anxiety disorder F41.1 and Attention-deficit hyperactivity disorder, predominantly hyperactive type F90.1 [facility] [id number] [place] [address] 55075- 3831 May, [facility] [id number] [place] [address] 65272- 5296 May, Diabetes E11.9 [facility] [id number] [place] [address] 96229- 3102 May, [facility] [id number] [place] [address] 34418- 2347 May, [facility] [address] [place] [id number] May, Diabetes E11.9 ; Generalized anxiety disorder F41.1 and Nausea R11.0 [facility] [id number] [place] [address] 62893- 0689 May, Psoriatic arthritis L40.50 and Candidiasis of female genitalia B37.3 [facility] [address], [place] [address]- 8805 May, [facility] [id number] [place] [address] 23474- 3761 Apr, [facility] [id number] [place] [address] 78056- 5205 Apr, [facility] [id number] [place] [address] 82695- 7063 Apr, [facility] [address], [place] [address]- 8983 Apr, Generalized anxiety disorder F41.1 ; Major depressive disorder, recurrent episode, unspecified severity F33.9 and Attention-deficit hyperactivity disorder, predominantly hyperactive type F90.1 [facility] [address], [place] [address]- 6398 Apr, [facility] [id number] [place] [address] 31537- 1546 Apr, [facility] [id number] [place] [address] 52455- 8732 Apr, [facility] [id number] [place] [address] 78478- 3165 Apr, [facility] [id number] [place] [address] 05581- 1240 Apr, [facility] [id number] [place] [address] 98246- 6592 Mar, Attention-deficit hyperactivity disorder, predominantly hyperactive type F90.1 [facility] [id number] [place] [address] 23927- 3336 Mar, [facility] [id number] [place] [address] 05787- 4808 Mar, [facility] [address], [place] [address]- 7966 Mar, Major depressive disorder, recurrent episode, unspecified severity F33.9 and Generalized anxiety disorder F41.1 [facility] [id number] [place] [address] 02158- 1738 February, Diabetes E11.9 [facility] [address], [place] [address] February, OME (otitis media with effusion), bilateral H65.93 [facility] [id number] [place] [address] 44959- 0820 February, Back pain M54.9 [facility] [address], [place] [address]- 7707 February, [facility] [id number] [place] [address] 90236- 0439 February, Nausea R11.0 [facility] [id number] [place] [address] 68266- 0839 February, [facility] [id number] [place] [address] 77001- 9157 February, Pre-op evaluation Z01.818 ; Type 2 diabetes mellitus with hyperglycemia E11.65 and prison 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 [facility] [id number] [place] [address] 75939- 3015 February, [facility] [id number] [place] [address] 49869 -2047 February, Right otitis externa H60.91 [facility] [id number] [place] [address] 05458- 2685 Jan, [facility] [id number] [place] [address] 85283- 6794 Jan, Psoriatic arthritis L40.50 and Arthralgia, unspecified joint M25.50 [facility] [address], [place] [address]- 3820 Jan, Major depressive disorder, recurrent episode, unspecified severity F33.9 ; Generalized anxiety disorder F41.1 and Attention-deficit hyperactivity disorder, unspecified type F90.9 [facility] [address], [place] [address] Jan, [place] [id number] [place] [address] 27755- 6560 Jan, [facility] [id number] [place] [address] 86100- 8203 Jan, Major depressive disorder, recurrent episode, unspecified severity F33.9 and Generalized anxiety disorder F41.1 [facility] [address], [place] [address] 3863 Jan, [facility] [id number] [place] [address] 78298- 5001 Dec, 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 I10 and Arthritis M19.90 [facility] [id number] [place] [address] 64954- 6094 Dec, [facility] [id number] [place] [address] 99076- 4990 Dec, [facility] [id number] [place] [address] 58372- 5073 Dec, [facility] [id number] [place] [address] 87592- 6723 Dec, [facility] [id number] [place] [address] 22012- 5409 Dec, [facility] [id number] [place] [address] 57813- 7388 Dec, Major depressive disorder, recurrent episode, unspecified severity F33.9 and Generalized anxiety disorder F41.1 [facility] [id number] [place] [address] 10130- 0813 Dec, Diabetes E11.9 ; Back pain M54.9 ; Thrush B37.0 and 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 I10 [facility] [id number] [place] [address] 43426- 5382 18 Dec, 2015 Major depressive disorder, recurrent episode, unspecified severity F33.9 and Generalized anxiety disorder F41.1 [facility] [facility] [id number] [place] [address] 77459- 6517 04 Dec, 2015 Major depressive disorder, recurrent episode, in partial or unspecified remission 296.35 ; Major depressive disorder, recurrent episode, unspecified severity F33.9 and Generalized anxiety disorder 300.02 [facility] [id number] [place] [address] 38076- 3965 Dec, [facility] [id number] [place] [address] 25278- 3057 Oct, [facility] [id number] [place] [address] 09637- 8626 Oct, [facility] [id number] [place] [address] 12738- 2913 Oct, [facility] [id number] [place] [address] 01564- 8862 Oct, [facility] [id number] [place] [address] 59275- 2138 Oct, Major depressive disorder, recurrent, moderate F33.1 and Attention-deficit hyperactivity disorder, unspecified type F90.9 [facility] [id number] [place] [address] 38321- 6787 Oct, prison (current) use of opiate analgesic Z79.891 [facility] [id number] [place] [address] 39215- 4803 Oct, [facility] [id number] [place] [address] 13490- 5240 Oct, [facility] [id number] [place] [address] 73359 -1897 Sep, URI (upper respiratory infection) J06.9 ; Psoriasis L40.9 ; Cough R05 and Tobacco abuse Z72.0 [facility] [id number] [place] [address] 44553- 2327 Sep, Major depressive disorder, recurrent episode, in partial or unspecified remission 296.35 ; Generalized anxiety disorder 300.02 and ADHD, 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 [facility] [id number] [place] [address] 66737 -7086 Sep, Acute sinusitis, unspecified J01.90 [facility] [id number] [place] [address] 23127- 1716 Sep, [facility] [address], [place] [address]- 4268 Sep, Major depressive disorder, recurrent, moderate F33.1 ; Generalized anxiety disorder F41.1 and Attention-deficit hyperactivity disorder , combined type F90.2 [facility] [id number] [place] [address] 97178- 0282 Sep, [facility] [id number] [place] [address] 77825- 8722 Aug, [facility] [id number] [place] [address] 44043- 3871 Aug, [facility] [id number] [place] [address] 69356- 3529 Aug, Diabetes E11.9 and Anxiety F41.9 [facility] [id number] [place] [address] 44225- 7257 Aug, Major depressive disorder, recurrent episode, unspecified severity F33.9 and Generalized anxiety disorder F41.1 [facility] [id number] [place] [address] 56139- 9414 Aug, [facility] [id number] [place] [address] 52410- 2825 Jul, [facility] [id number] [place] [address] 88021- 0442 Jul, [facility] [id number] [place] [address] 43205- 4084 Jul, [facility] [id number] [place] [address] 87874- 8107 Jul, [facility] [id number] [place] [address] 23087- 9412 Jul, Major depressive disorder, recurrent episode, in partial or unspecified remission 296.35 ; Generalized anxiety disorder 300.02 and ADHD, 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 [facility] [id number], [place] [address]- 7435 Jul, Major depressive disorder, recurrent episode, in partial or unspecified remission 296.35 ; Generalized anxiety disorder 300.02 and ADHD, 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 [facility] [id number] [place] [address] 42865- 8795 Jul, [facility] [id number] [place] [address] 39694- 8648 May, [facility] [id number] [place] [address] 06841- 2606 May, [facility] [id number] [place] [address] 21671- 1023 May, DM w/o complication type II 250.00 ; Dyspepsia 536.8 and PAD (peripheral artery disease) 443.9 [facility] [facility] [id number] [place] [address] 83176- 7403 May, Major depressive disorder, recurrent episode, moderate 296.32 and Generalized anxiety disorder 300.02 [facility] [id number] [place] [address] 77918- 1025 May, [facility] [id number] [place] [address] 23063- 3339 May, Major depressive disorder, recurrent episode, moderate 296.32 and Generalized anxiety disorder 300.02 [facility] [id number] [place] [address] 43888- 9540 May, [facility] [id number] [place] [address] 31708- 9480 Apr, [facility] [id number] [place] [address] 96353- 9325 Apr, Major depressive disorder, recurrent episode, moderate 296.32 and Generalized anxiety disorder 300.02 [facility] [id number] [place] [address] 49280- 8524 Apr, [facility] [id number], [place] [address]- 4253 Apr, [facility] [id number] [place] [address] 06675- 7523 Apr, Generalized anxiety disorder 300.02 ; ADHD, 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 and Depression, major, recurrent, moderate 296.32 [facility] [address], [place] [address]- 1608 Apr, Major depressive disorder, recurrent episode, moderate 296.32 and Generalized anxiety disorder 300.02 [facility] [address], [place] [address]- 7164 Apr, [facility] [id number] [place] [address] 01128- 5459 Apr, [facility] [id number] [place] [address] 62072- 7440 Mar, [facility] [id number] [place] [address] 27881- 4828 Mar, Major depressive disorder, recurrent episode, moderate 296.32 and Generalized anxiety disorder 300.02 [facility] [id number] [place] [address] 58885- 7692 Mar, ADHD, 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 ; Major depressive disorder, recurrent episode, severe, without mention of psychotic behavior 296.33 and Generalized anxiety disorder 300.02 [facility] [address], [place] [address]- 2377 February, Major depressive disorder, recurrent episode, moderate 296.32 and Generalized anxiety disorder 300.02 [facility] [address], [place] [address]- 6113 February, [facility] [id number] [place] [address] 81780- 9227 February, [facility] [address], [place] [address]- 8361 February, [facility] [id number] [address]- 1148 February, [facility] [address] 0707 February, DM w/o complication type II 250.00 ; Impacted cerumen 380.4 ; Essential hypertension, benign 401.1 and Irritable colon 564.1 [facility] [id number] [place] [address] 54823- 7995 February, [facility] [address] [facility] [id number] [place] [address], [place] [address]- 2314 February, [facility] [id number] [place] [address], [place] 3180 Jan, [facility] [id number] [place] [address]- 5142 Dec, [facility] [id number] [place] [address], [place] [address]- 7505 Dec, [facility] [address], [place] [address]- 4529 Dec, [facility] [id number] [place] [address]- 0764 Dec, [facility] [address], [place] [address]- 0895 Dec, [facility] [id number] [place] [address]- 9762 Dec, [facility] [id number], [place] [address]- 6818 Dec, [facility] [id number] [place] [address]- 8414 Dec, [facility] [id number] [place] [address]- 0186 Dec, [facility] [address], [place] [address]- 7111 Dec, [facility] [place] [facility] [address] [id number] [place] [address]- 7855 Dec, [facility] [place] [facility] [address] [id number] [place] [address]- 2866 Dec, [facility] [place] [facility] [address] [id number] [place] [address]- 5128 Dec, [facility] [place] [facility] [address] [id number] [place] [address]- 5676 Dec, [facility] [place] [facility] [address] [id number] [place] [address]- 8278 Dec, [facility] [place] [facility] [address] [id number] [place] [address]- 3896 Dec, [facility] [place] [facility] [address] [id number] [place] [address]- 2059 Oct, [facility] [place] [facility] [address] [id number] [address]- 2020 Oct, [facility] [place] [facility] [address] [id number] [place] [address]- 7194 Oct, [facility] [place] [facility] [address] [id number] [place] [address]- 0791 Oct, [facility] [place] [facility] [address] [id number] [address]- 6844 Oct, [facility] [place] [facility] [address] [id number], [place] [address]- 6399 Oct, [facility] [place] [facility] [address] [id number] [place] [address]- 9554 Oct, [facility] [place] [facility] [address] [id number], [place] [address]- 5216 Oct, [facility] [place] [facility] [address] [id number] [place] [address]- 2316 Oct, [facility] [place] [facility] [address] [id number] [place] [address]- 9603 Oct, [facility] [place] [facility] [address] [id number] [place] 2784 Oct, [facility] [place] [facility] [address] [id number] [place] [address]- 9785 Sep, [facility] [place] [facility] [address] [id number] [place] [address]- 8090 Sep, [facility] [place] [facility] [address] [id number] [place] [address]- 3514 Sep, [facility] [place] [facility] [address] [id number] [place] [address]- 9447 Sep, [facility] [place] [facility] [address] [id number] [place] [address]- 0574 Sep, [facility] [place] [facility] [address] [id number] [place] [address]- 8119 Sep, [facility] [place] [facility] [address] [id number] [place] [address]- 3800 Sep, [facility] [place] [facility] [address] [id number] [place] [address]- 5512 Sep, [facility] [place] [facility] [address] [id number] [place] [address]- 9122 Aug, [facility] [place] [facility] [address] [id number] [place] [address]- 3820 Aug, [facility] [place] [facility] [address] [id number] [place] [address]- 3125 Aug, [facility] [place] [facility] [address] [id number] [place] [address]- 9110 Aug, [facility] [place] [facility] [address] [id number] [place] [address]- 8917 Aug, [facility] [place] [facility] [address] [id number] [place] [address]- 4518 Aug, [facility] [place] [facility] [address] [id number] [place] [address]- 7549 Aug, [facility] [place] [facility] [address] [id number] [place] [address]- 9293 Aug, [facility] [place] [facility] [address] [id number] [place] [address]- 7350 Aug, [facility] [place] [facility] [address] [id number] [place] [address]- 9963 Aug, [facility] [place] [facility] [address] [id number] [place] [address]- 5919 Aug, [facility] [place] [facility] [address] [id number] [place] [address]- 9822 Aug, [facility] [place] [facility] [address] [id number] [place] [address]- 1797 Aug, [facility] [place] [facility] [address] [id number] [place] [address]- 9110 Aug, [facility] [place] [facility] [address] [id number] [place] [address]- 7685 Jul, [facility] [place] [facility] [address] [id number] [place] [address]- 2130 Jul, [facility] [place] [facility] [address] [id number] [place] [address]- 2569 Jul, [facility] [place] [facility] [address] [id number], [place] [address]- 7325 Jul, [facility] [place] [facility] [address] [id number] [place] [address]- 2398 Jul, [facility] [place] [facility] [address] [id number] [place] [address]- 7450 Jul, [facility] [place] [facility] [address] [id number] [place] [address]- 6490 Jul, [facility] [place] [facility] [address] [id number], [place] [address]- 3658 Jul, [facility] [place] [facility] [address] [id number] [place] [address]- 5178 Jul, [facility] [place] [facility] [address] [id number] [place] [address]- 3909 Jul, [facility] [place] [facility] [address] [id number] [place] [address]- 0569 Jul, [facility] [place] [facility] [address] [id number] [place] [address]- 4822 Jul, [facility] [place] [facility] [address] [id number] [place] [address]- 9837 Jul, [facility] [place] [facility] [address] [id number] [place] [address]- 0105 Jul, [facility] [place] [facility] [address] [id number] [place] [address]- 2373 May, [facility] [place] [facility] [address] [id number] [place] [address]- 8036 May, [facility] [place] [facility] [address] [id number] [place] [address]- 6912 May, [facility] [place] [facility] [address] [id number] [place] [address]- 7151 May, [facility] [place] [facility] [address] [id number] [place] [address]- 5175 May, [facility] [place] [facility] [address] [id number] [place] [address]- 4182 May, [facility] [place] [facility] [address] [id number] [place] [address]- 8869 May, [facility] [place] [facility] [address] [id number] [place] [address]- 9454 May, [facility] [place] [facility] [address] [id number] [place] [address]- 3667 May, [facility] [place] [facility] [address] [id number] [place] [address]- 3213 May, [facility] [place] [facility] [address] [id number] [place] [address]- 3521 May, [facility] [place] [facility] [address] [id number] [place] [address]- 4946 May, [facility] [place] [facility] [address] [id number] [place] [address]- 2773 Apr, [facility] [place] [facility] [address] [id number] [place] [address]- 9591 Apr, [facility] [place] [facility] [address] [id number] [place] [address]- 7866 Apr, [facility] [place] [facility] [address] [id number] [place] [address]- 9953 Apr, [facility] [place] [facility] [address] [id number] [place] [address]- 9369 Apr, [facility] [place] [facility] [address] [id number] [place] [address]- 4576 Apr, [facility] [place] [facility] [address] [id number] [place] [address]- 7479 Mar, [facility] [place] [facility] [address] [id number] [place] [address]- 6559 Mar, [facility] [place] [facility] [address] [id number] [place] [address]- 3889 Mar, [facility] [place] [facility] [address] [id number] [place] [address]- 8623 Mar, [facility] [place] [facility] [address] [id number] [place] [address]- 4565 Mar, [facility] [place] [facility] [address] [id number] [place] [address]- 4919 Mar, [facility] [place] [facility] [address] [id number] [place] [address]- 8607 Mar, [facility] [place] [facility] [address] [id number] [place] [address]- 2205 Mar, [facility] [place] [facility] [address] [id number] [place] [address]- 9549 Mar, [facility] [place] [facility] [address] [id number] [place] [address]- 2843 Mar, [facility] [place] [facility] [address] [id number] [place] [address]- 1322 Mar, [facility] [place] [facility] [address] [id number] [place] [address]- 9138 Mar, [facility] [place] [facility] [address] [id number] [place] [address]- 9114 Mar, [facility] [place] [facility] [address] [id number] [place] [address]- 1494 February, [facility] [place] [facility] [address] [id number] [place] [address]- 5536 February, [facility] [place] [facility] [address] [id number] [place] [address]- 2207 February, [facility] [place] [facility] [address] [id number] [place] [address]- 2651 February, [facility] [place] [facility] [address] [id number] [place] [address]- 5756 February, [facility] [place] [facility] [address] [id number] [place] [address]- 0059 February, [facility] [place] [facility] [address] [id number] [place] [address]- 4721 February, [facility] [place] [facility] [address] [id number] [place] [address]- 7701 February, [facility] [place] [facility] [address] [id number] [place] [address]- 0647 February, [facility] [place] [facility] [address] [id number] [place] [address]- 1551 February, [facility] [address] [id number] [place] [address]- 6851 February, [facility] [place] [facility] [address] [id number] [place] [address]- 8248 February, [facility] [place] [facility] [address] [id number] [place] [address]- 0900 February, [facility] [place] [facility] [address] [id number] [place] [address]- 0084 February, [facility] [place] [facility] [address] [id number] [place] [address]- 3678 Jan, [facility] [place] [facility] [address] [id number] [place] [address]- 0470 Jan, [facility] [place] [facility] [address] [id number] [place] [address]- 2493 Jan, [facility] [place] [facility] [address] [id number] [place] [address]- 8596 Jan, [facility] [place] [facility] [address] [id number] [place] [address]- 7182 Jan, [facility] [place] [facility] [address] [id number] [place] [address]- 5083 Jan, [facility] [place] [facility] [address] [id number] [place] [address]- 7375 Jan, [facility] [place] [facility] [address] [id number] [place] [address]- 9257 Jan, [facility] [place] [facility] [address] [id number] [place] [address]- 3685 Jan, [facility] [place] [facility] [address] [id number] [place] [address]- 3712 Dec, [facility] [place] [facility] [address] [id number] [place] [address]- 3842 Dec, [facility] [place] [facility] [address] [id number] [place] [address]- 2329 Dec, [facility] [place] [facility] [address] [id number] [place] [address]- 6932 Dec, [facility] [place] [facility] [address] [id number] [place] [address]- 0243 Dec, [facility] [place] [facility] [address] [id number] [place] [address]- 6282 Dec, [facility] [place] [facility] [address] [id number] [place] [address]- 4728 Dec, [facility] [place] [facility] [address] [id number] [place] [address]- 3519 Dec, [facility] [place] [facility] [address] [facility] [id number] [place] [address] Dec, [facility] [place] [facility] [address] [id number] [place] [address] Dec, [facility] [place] [facility] [address] [id number] [place] [address] 14 Dec, 2013 [facility] [place] [facility] [address] [id number] [place] [address] Dec, [facility] [place] [facility] [address] [facility] [id number] [place] [address] Dec, [facility] [place] [facility] [address] [id number], [place] [address] 10 Dec, 2013 [facility] [place] [facility] [address] [id number] [place] [address] Dec, [facility] [place] [facility] [address] [id number] [place] [address] 06 Dec, 2013 [facility] [place] [facility] [address] [id number] [place] [address] 06 Dec, 2013 [facility] [place] [facility] [address] [id number], [place] [address] Oct, [facility] [address] [id number] [place] [address] Oct, [facility] [place] [facility] [address] [id number] [place] [address] Oct, [facility] [place] [facility] [address] [id number] [place] [address] Oct, [facility] [place] [facility] [address] [id number] [place] [address] Oct, [facility] [place] [facility] [address] [id number] [place] [address] Oct, [facility] [place] [facility] [address] [id number] [place] [address] Oct, [facility] [address] [id number] [place] [address] Oct, [facility] [place] [facility] [address] [id number] [place] [address] Oct, [facility] [place] [facility] [address] [id number] [place] [address] Oct, [facility] [place] [facility] [address] [id number] [place] [address]- [address] Oct, [facility] [place] [facility] [address] [id number] [place] [address] Oct, [facility] [place] [facility] [address] [id number], [place] [address] Oct, [facility] [place] [facility] [address] [id number] [place] [address]- 47[address] Oct, [facility] [place] [facility] [address] [id number] [place] [address]- [address] Sep, [facility] [place] [facility] [address] [id number] [place] [address] Sep, [facility] [place] [facility] [address] [id number] [place] [address]- [address] 30 Sep, 2013 [facility] [place] [facility] [address] [id number] [place] [address] 30 Sep, 2013 [facility] [place] [facility] [address] [id number] [place] [address] Sep, [facility] [place] [facility] [address] [id number] [place] [address] Sep, [facility] [place] [facility] [address] [id number] [place] [address] Sep, [facility] [place] [facility] [address] [id number] [place] [address] Sep, [facility] [place] [facility] [address] [id number] [place] [address] Sep, [facility] [place] [facility] [address] [id number] [place] [address] 150[address] Sep, [facility] [place] [facility] [address] [id number] [place] [address]- [address] 16 Sep, 2013 [facility] [place] [facility] [address] [id number] [place] [address]- [address]99 16 Sep, 2013 [facility] [place] [facility] [address] [id number] [place] [address]- [address] 13 Sep, 2013 [facility] [place] [facility] [address] [id number] [place] [address]- [address] 13 Sep, 2013 [facility] [place] [facility] [address] [id number] [place] [address] 10 Sep, 2013 [facility] [place] [facility] [address] [id number] [place] [address]- [address] 10 Sep, 2013 [facility] [place] [facility] [address] [id number] [place] [address] 02 Sep, 2013 [facility] [place] [facility] [address] [id number] [place] [address] 02 Sep, 2013 [facility] [place] [facility] [address] [id number] [place] [address] 15 Aug, 2013 [facility] [place] [facility] [address] [id number] [place] [address] 1435 15 Aug, 2013 [facility] [place] [facility] [address] [id number] [place] [address] 16 Jul, 2013 [facility] [place] [facility] [address] [id number] [place] [address] 1457 16 Jul, 2013 [facility] [place] [facility] [address] [id number] [place] [address]- 1455 14 Jul, 2013 [facility] [place] [facility] [address] [id number] [place] [address] 6803 14 Jul, 2013 [facility] [place] [facility] [address] [id number] [place] [address] 5790 08 Jul, 2013 [facility] [place] [facility] [address] [id number], [place] [address] 20 Sep, 2012 [facility] [place] [facility] [address] [id number], [place] [address] 19 Sep, 2012 [facility] [place] [facility] [address] [id number], [place] [address] 49[address] 13 Sep, 2012 [facility] [place] [facility] [address] [id number], [place] [address] 4[address] 08 Sep, 2012 [facility] [place] [facility] [address] [id number], [place] [address] 9[address] 06 Sep, 2012 [facility] [place] [facility] [address] [id number], [place] [address] 57[address] 06 Sep, 2012 [facility] [place] [facility] [address] [id number], [place] [address] 9[address] 06 Sep, 2012 [facility] [place] [facility] [address] [id number], [place] [address] 03 Sep, 2012 [facility] [place] [facility] [address] [id number] [place] [address]- 2462 May, [facility] [address] [id number] [place] [address] 1313 May, [facility] [place] [facility] [address] [id number] [place] [address]- 3516 May, [facility] [address] [id number] [place] [address]- 5380 May, [facility] [place] [facility] [address] [id number] [place] [address] 3253 Apr, [facility] [address] [id number] [place] [address]- 4885 Apr, [facility] [place] [facility] [address] [id number] [place] [address]- 5068 Apr, [facility] [address] [id number] [place] [address]- 3269 Mar, [facility] [place] [facility] [address] [id number] [place] [address]- 1556 Mar, [facility] [place] [facility] [address] [id number] [place] [address]- 4773 Mar, [facility] [address] [id number] [place] [address]- 8377 Mar, [facility] [place] [facility] [address] [id number] [place] [address]- 9664 February, [facility] [place] [facility] [address] [id number] [place] [address]- 5989 February, [facility] [place] [facility] [address] [id number] [place] [address]- 8072 Jan, [facility] [place] [facility] [address] [id number] [id number] [address] Dec, [facility] [place] [facility] [address] [id number] [place] [address] Dec, [facility] [place] [facility] [address] [id number] [place] [address]- 4956 05 Dec, 2012 [facility] [address] [id number] [place] [address]- 6165 05 Dec, 2012 [facility] [address] [id number] [place] [address]- 4951 28 Dec, 2012 [facility] [place] [facility] [address] [id number] [place] [address]- 4579 27 Dec, 2012 [facility] [address] [id number] [place] [address]- 5192 Dec, [facility] [address] [id number] [place] [address]- 1537 25 Dec, 2012 [facility] [address] [id number] [place] [address]- 3970 22 Dec, 2012 [facility] [address] [id number] [place] [address]- 5988 15 Dec, 2012 [facility] [address] [id number] [place] [address]- 8720 14 Dec, 2012 [facility] [address] [id number] [place] [address]- 3585 Oct, [facility] [address] [id number] [place] [address]- 9136 Oct, [facility] [place] [facility] [address] [id number] [place] [address]- 8242 09 Oct, 2012 [facility] [place] [facility] [address] [id number] [place] [address]- 9001 Oct, [facility] [place] [facility] [address] [id number] [place] [address]- 9100 13 Sep, 2012 [facility] [place] [facility] [address] [id number] [place] [address] 6647 Sep, [facility] [address] [id number] [place] [address]- 4128 Sep, [facility] [place] [facility] [address] [id number] [place] [address]- 9178 Sep, [facility] [place] [facility] [address] [id number] [place] [address]- 5702 Sep, [facility] [place] [facility] [address] [id number] [place] [address]- 5644 Sep, [facility] [place] [facility] [address] [id number] [place] [address]- 5574 Aug, [facility] [place] [facility] [address] [id number] [place] [address]- 7692 Aug, [facility] [place] [facility] [address] [id number] [place] [address]- 5714 Aug, [facility] [place] [facility] [address] [facility] [id number] [place] [address]- 8733 Aug, [facility] [place] [facility] [address] [id number] [place] [address]- 8401 Aug, [facility] [place] [facility] [address] [id number] [place] [address]- 9435 Aug, [facility] [place] [facility] [address] [facility] [id number] [place] [address]- 9898 Jul, [facility] [place] [facility] [address] [id number] [place] [address]- 6891 Jul, [facility] [place] [facility] [address] [id number], [place] [address] 1489 Jul, [facility] [place] [facility] [address] [id number] [place] [address] 3350 Jul, [facility] [place] [facility] [address] [facility] [id number] [place] [address]- 0725 Jul, [facility] [place] [facility] [address] [facility] [id number], [place] [address]- 4587 Jul, [facility] [place] [facility] [address] [id number] [place] [address]- 6153 27 Jul, 2012 [facility] [place] [facility] [address] [id number] [place] [address]- 4806 21 Jul, 2012 [facility] [place] [facility] [address] [id number] [place] [address]- 8576 20 Jul, 2012 [facility] [place] [facility] [address] [id number] [place] [address]- 1746 11 Jul, 2012 [facility] [place] [facility] [address] [id number] [place] [address]- 9887 Jul, [facility] [place] [facility] [address] [id number] [place] [address]- 6627 May, [facility] [place] [facility] [address] [id number] [place] [address]- 8211 May, [facility] [place] [facility] [address] [id number] [place] [address]- 6567 May, [facility] [place] [facility] [address] [id number] [place] [address]- 8372 May, [facility] [place] [facility] [address] [id number] [place] [address]- 8447 Apr, [facility] [place] [facility] [address] [id number] [place] [address]- 4029 Apr, [facility] [place] [facility] [address] [id number] [place] [address]- 2577 Apr, [facility] [place] [facility] [address] [id number] [place] [address]- 5650 Apr, [facility] [place] [facility] [address] [id number] [place] [address]- 2549 Apr, [facility] [place] [facility] [address] [id number] [place] [address]- 9658 Apr, [facility] [place] [facility] [address] [id number] [place] [address]- 4891 13 Apr, 2012 [facility] [place] [facility] [address] [id number] [place] [address]- 1554 09 Apr, 2012 [facility] [place] [facility] [address] [id number] [place] [address]- 7342 28 Mar, 2012 [facility] [place] [facility] [address] [id number] [place] [address]- 8781 27 Mar, 2012 [facility] [place] [facility] [address] [id number] [place] [address]- 4701 20 Mar, 2012 [facility] [place] [facility] [address] [id number] [place] [address]- 1535 15 Mar, 2012 [facility] [place] [facility] [address] [id number] [place] [address]- 9806 14 Mar, 2012 [facility] [place] [facility] [address] [id number] [place] [address]- 3075 Mar, [facility] [place] [facility] [address] [id number] [place] [address]- 4778 Mar, [facility] [place] [facility] [address] [id number] [place] [address]- 2188 Mar, [facility] [place] [facility] [address] [id number] [place] [address]- 4521 08 Mar, 2012 [facility] [place] [facility] [address] [id number] [place] [address]- 4557 February, [facility] [place] [facility] [address] [id number] [place] [address]- 5130 February, [facility] [place] [facility] [address] [id number] [place] [address]- 7950 February, [facility] [place] [facility] [address] [id number] [place] [address]- 7264 February, [facility] [place] [facility] [address] [id number] [place] [address]- 5913 13 Jan, 2012 [facility] [place] [facility] [address] [id number] [place] [address]- 5923 03 Jan, 2012 [facility] [place] [facility] [address] [id number] [place] [address]- 0569 28 Dec, 2011 [facility] [place] [facility] [address] [id number] [place] [address]- 3206 15 Dec, 2011 [facility] [place] [facility] [address] [id number] [place] [address]- 2356 14 Dec, 2011 [facility] [place] [facility] [address] [id number] [place] [address]- 3165 07 Dec, 2011 [facility] [place] [facility] [address] [id number] [place] [address]- 1073 28 Dec, 2011 [facility] [place] [facility] [address] [id number] [place] [address]- 3036 27 Dec, 2011 [facility] [place] [facility] [address] [id number] [place] [address]- 2346 Dec, [facility] [place] [facility] [address] [id number] [place] [address]- 1133 Dec, [facility] [place] [facility] [address] [id number] [place] [address]- 3512 Dec, [facility] [place] [facility] [address] [facility] [id number] [place] [address]- 6293 Dec, [facility] [place] [facility] [address] [facility] [id number] [place] [address]- 2558 Dec, [facility] [place] [facility] [address] [id number] [place] [address]- 2489 Dec, [facility] [place] [facility] [address] [id number] [place] [address]- 9768 Oct, [facility] [place] [facility] [address] [id number] [place] [address]- 6534 Oct, [facility] [place] [facility] [address] [id number], [place] [address]- 1676 Oct, [facility] [place] [facility] [address] [id number] [place] [address]- 8892 Oct, [facility] [place] [facility] [address] [id number] [place] [address]- 7251 Oct, [facility] [place] [facility] [address] [id number] [place] [address]- 9386 Oct, [facility] [place] [facility] [address] [id number], [place] [address]- 5741 16 Oct, 2011 [facility] [place] [facility] [address] [id number] [place] [address]- 5980 Oct, [facility] [place] [facility] [address] [id number] [place] [address]- 4347 Sep, [facility] [place] [facility] [address] [id number], [place] [address]- 3908 Sep, [facility] [place] [facility] [address] [id number], [place] [address]- 0221 Sep, [facility] [place] [facility] [address] [id number], [place] [address]- 9255 Aug, [facility] [place] [facility] [address] [id number], [place] [address]- 0208 Aug, [facility] [place] [facility] [address] [id number], [place] [address]- 0887 16 Aug, 2011 [facility] [place] [facility] [address] [id number], [place] [address]- 4651 14 Aug, 2011 [facility] [place] [facility] [address] [id number], [place] [address]- 1371 Aug, [facility] [place] [facility] [address] [id number], [place] [address]- 4519 19 Jul, 2011 [facility] [place] [facility] [address] [id number], [place] [address]- 7941 13 Jul, 2011 [facility] [place] [facility] [address] [facility] [id number], [place] [address]- 9946 May, [facility] [address] [id number], [place] [address] 2109 Dec, [facility] [address] [id number], [place] [address]- 9346 Oct, [facility] [address] [id number], [place] [address]- 2573 Sep, [facility] [address] [id number], [place] [address]- 3128 Sep, [facility] [address] [id number], [place] [address]- 7264 Sep, IMMUNIZATIONS No Known Immunizations SOCIAL HISTORY Never Assessed REASON FOR VISIT Rx requests PLAN OF CARE VITAL SIGNS MEDICATIONS Medication Instructions Dosage Frequency Start Date End Date Duration Status Tresiba FlexTouch 100 UNIT/ML Subcutaneous Once a day 60u at bedtime 24h Aug, 30 days Active Seroquel 50 mg Orally at bedtime 1 tablet Aug, 30 days Active RESULTS No Results PROCEDURES No Known procedures INSTRUCTIONS MEDICATIONS ADMINISTERED No Known Medications MEDICAL [...] reflux Surgical History Left Knee SOA-Dr. Melendrez-[facility] 05/19/16 Surgical History Colonoscopy- Dr Castanon 01/26/2017 Hospitalization History surgeries Hospitalization History Left Knee SOA--Dr. Melendrez--[facility] Hospitalization History Septic shock, UTI-[facility] 07/27/17 Hospitalization History Multiple falls, hyperglycemia, sepsis 07/2017 Hospitalization History Alcoholism, depression, DM, Falls-[facility] 08/23/17 Hospitalization History COPD exacerbation-[facility] 11/25/17 Hospitalization History COPD exacerbation-[facility] 11/28/17
--- OUTSIDE RECORDS SUMMARY | 2018-05-10 03:24 | XMS REPORT ---
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 Name Role Phone MARY LOUARELIS ELLE Unavailable PROBLEMS Type Condition ICD9-CM Code [id number] Code Onset Dates Condition Status SNOMED Code Problem Generalized anxiety disorder F41.1 Active 93395250 Problem Diabetes E11.9 Active 36478779 Problem Psoriasis L40.9 Active 3577638 Problem Tobacco abuse Z72.0 Active 76546912 Problem 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 I10 Active 69693235 Problem Back pain M54.9 Active 141918169 Problem Arthritis M19.90 Active 6563352 Problem snf 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 Active 870426360 Problem Psoriatic arthritis L40.50 Active 389380878 Problem Psychophysiological insomnia F51.04 Active 70271082 Problem Other specified 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 Active 353333658 Problem Obesity (BMI 30-39.9) E66.9 Active 563852910 Problem Major depressive disorder, recurrent, moderate F33.1 Active 11893602 Problem Essential hypertension I10 Active 20653987 Problem Type 2 diabetes mellitus with hyperglycemia E11.65 Active 885837721004163 Problem Alcoholism F10.20 Active 5354312 Problem Frequent falls R29.6 Active 212920397 Problem Benzodiazepine abuse F13.10 Active 345543816 Problem PTSD (post-traumatic stress disorder) F43.10 Active 75913828 Problem Eating disorder F50.9 Active 55541867 Problem Attention-deficit hyperactivity disorder, combined type F90.2 Active 41848161 Problem COPD exacerbation J44.1 Active 744830085 Problem Anxiety F41.9 Active 22557492 Problem Decubitus ulcer of left buttock, stage 2 L89.322 Active 832670205 Problem BMI 40.0-44.9, adult Z68.41 Active 083680414 Problem Alcohol abuse F10.10 Active 28928164 Problem Pneumonia due to methicillin resistant Staphylococcus aureus, unspecified laterality, unspecified part of lung J15.212 Active 346027998822737 Problem Type 2 diabetes mellitus with unspecified complications E11.8 Active 70458393 Problem Attention-deficit hyperactivity disorder, predominantly hyperactive type F90.1 Active 857951667 Problem Type 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 Active 77191512 Problem Ulcer of right foot, unspecified ulcer stage L97.519 Active 85554887 Problem Attention deficit R41.840 Active 08314676 Problem Mental disorder, not otherwise specified F99 Active 72398072 Problem Insomnia due to other mental disorder F51.05 Active 27949872 ALLERGIES No Information ENCOUNTERS Encounter Location Date Diagnosis [facility] [address] [address] February, [facility] [id number] [place] [address] 61497- 0433 February, [facility] [id number] [place] [address] 39805- 3011 Jan, [facility] [id number] [place] [address] 95682- 3122 Jan, [facility] [id number] [place] [address] 94338- 9548 Jan, [facility] [id number] [place] [address] 10371- 0897 Dec, Major depressive disorder, recurrent episode, unspecified severity F33.9 ; Generalized anxiety disorder F41.1 and Eating disorder F50.9 [facility] [address] [place] [address] 58423- 1641 Dec, [facility] [id number] [place] [address] 88688- 5030 Dec, [facility] [id number] [place] [address] 14925- 4907 Dec, [facility] [id number] [place] [address] 93046- 7726 Dec, Increased urinary frequency R35.0 ; Frequent falls R29.6 ; Decubitus ulcer of left buttock, stage 2 L89.322 ; Benzodiazepine abuse F13.10 ; BMI 40.0-44.9, adult Z68.41 and Yeast infection B37.9 [place] [address] [place] [address] 78579- 2166 Dec, [place] [facility] [id number] [place] [address] 19312- 2331 Dec, [facility] [facility] [id number] [place] [address] 38421- 5328 Dec, Increased urinary frequency R35.0 [facility] [facility] [id number] [place] [address] 43802- 1972 Dec, Increased urinary frequency R35.0 [facility] [id number] [place] [address] 49253- 1371 Dec, Generalized anxiety disorder F41.1 ; Major depressive disorder, recurrent, moderate F33.1 and Psychophysiological insomnia F51.04 [place] [address] [place] [address] 34793- 6913 Dec, BMI 40.0-44.9, adult Z68.41 ; Type 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 ; Pneumonia due to methicillin resistant Staphylococcus aureus, unspecified laterality, unspecified part of lung J15.212 and COPD exacerbation J44.1 [facility] [address], [place] [address] Dec, [facility] [id number] [place] [address] [id number] Dec, [place] [id number] [place] [address] [id number] Oct, [facility] [address] [place] [address] 87110 -8771 Oct, Frequency of urination R35.0 ; Bronchitis J40 and BMI 40.0- 44.9, adult Z68.41 [place] [id number] [place] [address] [id number] Oct, [place] [address] [place] [address] 66091- 2667 Oct, [place] [id number] [place] [address] 91355- 1300 Oct, BMI 40.0-44.9, adult Z68.41 ; Type 2 diabetes mellitus with hyperglycemia E11.65 ; Essential hypertension I10 ; Vaginal yeast infection B37.3 ; Anxiety F41.9 and Alcoholism F10.20 [place] [id number] [place] [address] 54143- 0729 Oct, [place] [id number] [place] [address] 49413- 7786 Oct, [place] [id number] [place] [address] 61905- 6550 Sep, [facility] [id number] [place] [address] 27913- 2762 Sep, Major depressive disorder, recurrent episode, unspecified severity F33.9 ; Generalized anxiety disorder F41.1 and Eating disorder F50.9 [address] [place] [address] 30573- 9388 Sep, Major depressive disorder, recurrent, moderate F33.1 ; Type 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 ; Alcohol abuse F10.10 ; Obesity (BMI 30-39.9) E66.9 and Psychophysiological insomnia F51.04 [place] [address] [place] [address] 35055- 8657 06 Sep, 2017 Diabetes E11.9 and Generalized anxiety disorder F41.1 [place] [id number] [place] [address] 01736- 6203 05 Sep, 2017 Major depressive disorder, recurrent episode, unspecified severity F33.9 ; Generalized anxiety disorder F41.1 and Eating disorder F50.9 [place] [id number] [place] [address] 64984- 1034 Sep, [place] [address] [place] [address] 58885- 4911 Aug, [place] [id number] [place] [address] 33991- 8103 Aug, Insomnia due to other mental disorder F51.05 ; Mental disorder, not otherwise specified F99 ; Attention deficit R41.840 ; Ulcer of right foot, unspecified ulcer stage L97.519 ; Cough R05 ; Diabetes E11.9 ; Sore in mouth K13.79 ; Generalized anxiety disorder F41.1 ; Major depressive disorder , recurrent episode, unspecified severity F33.9 and BMI 40.0-44.9, adult Z68.41 [place] [address] [place] [address] 06969- 0287 Aug, [place] [id number] [place] [address] 05157- 3409 Aug, [place] [id number] [place] [address] 96491- 9536 Aug, [place] [address] [place] [address] 33955- 1890 Aug, [place] [address] [place] [address] 52133- 7269 Aug, Diabetes E11.9 [facility] [employer] [facility] [address] 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 ; Psoriatic arthritis L40.50 and Diabetes E11.9 [facility] [id number] [place] [address] [id number] Aug, [facility] [id number] [place] [address] [id number] Jul, [facility] [address] [place] [address] 84750- 4373 Jul, [facility] [id number] [place] [address] 92867- 6361 Jul, Generalized anxiety disorder F41.1 [facility] [id number] [place] [address] 85474- 6013 Jul, [facility] [id number] [place] [address] 03227- 1394 Jul, [facility] [id number] [place] [address] 80180- 1192 Jul, Generalized anxiety disorder F41.1 ; Major depressive disorder, recurrent episode, unspecified severity F33.9 ; PTSD (post-traumatic stress disorder) F43.10 ; Eating disorder F50.9 and Attention-deficit hyperactivity disorder, predominantly hyperactive type F90.1 [facility] [address] [address] 2965 Jul, [facility] [id number] [place] [address] 88839- 2401 Jul, [facility] [address] [place] [address] 09863- 5821 Jul, snf 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 ; Type 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 ; Urinary tract infection, site not specified N39.0 ; Sepsis, unspecified organism A41.9 and Essential hypertension I10 [facility] [id number] [id number] Jul, [facility] [id number] [address] Jul, [facility] [address], [place] [address]- 8147 Jul, Generalized anxiety disorder F41.1 [facility] [id number] [place] [address] 82652- 7893 15 Jul, 2017 [facility] [id number] [place] [address] 41729- 8760 Jul, Generalized anxiety disorder F41.1 [facility] [address] [place] [address] 75856- 6425 May, Generalized anxiety disorder F41.1 ; Major depressive disorder, recurrent episode, unspecified severity F33.9 ; PTSD (post-traumatic stress disorder) F43.10 ; Eating disorder F50.9 and Attention-deficit hyperactivity disorder, predominantly hyperactive type F90.1 [facility] [id number] [place] [address] 07335- 6756 May, Diabetes E11.9 [facility] [id number] [place] [address] 98446 -6769 May, Acute non-recurrent maxillary sinusitis J01.00 and Diabetes E11.9 [facility] [address], [place] [address] 2243 May, [facility] [address], [place] [address]- 4537 May, [facility] [id number] [place] [address] 15256- 4043 May, Generalized anxiety disorder F41.1 [facility] [address], [place] [address]- 8606 Apr, [facility] [id number] [place] [address] 21945- 5622 Apr, [facility] [address], [place] [address]- 1[address] Apr, [address] [place] [address] 88546- 5556 Apr, Generalized anxiety disorder F41.1 ; Major depressive disorder, recurrent episode, unspecified severity F33.9 ; PTSD (post-traumatic stress disorder) F43.10 ; Eating disorder F50.9 and Attention-deficit hyperactivity disorder, predominantly hyperactive type F90.1 [place] [id number] [place] [address] 73338- 5651 Apr, Major depressive disorder, recurrent, moderate F33.1 [place] [id number] [place] [address] 54246- 5659 Mar, Diabetes E11.[address] 92349- 7923 Mar, Attention-deficit hyperactivity disorder, combined type F90.2 [place] [id number] [place] [address] 55023- 5173 Mar, [place] [id number] [place] [address] 02163- 6307 Mar, Diabetes E11.[address] 32642- 8031 Mar, snf 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 ; Psoriatic arthritis L40.50 ; Other specified 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 and 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 I10 [place] [id number] [place] [address] 19720- 4395 February, Back pain M54.9 [place] [id number] [place] [address] 72821- 9958 February, Attention-deficit hyperactivity disorder, combined type F90.2 [place] [id number] [place] [address] 64754- 3535 February, Major depressive disorder, recurrent episode, unspecified severity F33.9 and Generalized anxiety disorder F41.1 [place] [id number] [place] [address] 77735- 2154 Jan, Attention-deficit hyperactivity disorder, combined type F90.2 [facility] [id number] [place] [address] 11214- 9892 Jan, Major depressive disorder, recurrent, moderate F33.1 ; Generalized anxiety disorder F41.1 and Attention-deficit hyperactivity disorder , combined type F90.2 [place] [id number] [place] [address] 13259- 6896 Dec, Major depressive disorder, recurrent episode, unspecified severity F33.9 ; Generalized anxiety disorder F41.1 and Attention-deficit hyperactivity disorder, predominantly hyperactive type F90.1 [place] [address] 38572- 8877 Dec, Major depressive disorder, recurrent episode, unspecified severity F33.9 and Generalized anxiety disorder F41.1 [place] [address] 40816- 4291 Dec, [place] [address] 93967- 1674 Dec, [place] [address] 85283- 1170 Dec, Major depressive disorder, recurrent episode, unspecified severity F33.9 and Generalized anxiety disorder F41.1 [place] [id number] [place] [address] 29391- 0592 Dec, Back pain M54.9 [place] [id number] [place] [address] 69269- 9280 17 Dec, 2016 Eustachian tube dysfunction, right H69.81 and Arthritis M19.90 [place] [address] 68503- 9015 Dec, [place] [id number] [place] [address] 31795- 0913 Dec, [facility] [address] 37944- 5695 Dec, Major depressive disorder, recurrent episode, unspecified severity F33.9 [place] [id number] [place] [address] 66909- 4100 Oct, [facility] [id number] [place] [address] 87293 -8720 Oct, Acute non-recurrent pansinusitis J01.40 and Sore throat J02.9 [place] [id number] [place] [address] 64663- 3905 Oct, Major depressive disorder, recurrent episode, unspecified severity F33.9 [place] [id number] [place] [address] 10160- 2361 Oct, Major depressive disorder, recurrent episode, unspecified severity F33.9 and Generalized anxiety disorder F41.1 [place] [id number] [place] [address] 54382- 2738 Sep, [place] [id number] [place] [address] 43981- 5863 Sep, Major depressive disorder, recurrent episode, unspecified severity F33.9 [place] [id number] [place] [address] 96781- 4598 Sep, Major depressive disorder, recurrent episode, unspecified severity F33.9 [facility] [id number] [place] [address] 25198 -5293 Sep, Sore throat J02.9 [place] [id number] [place] [address] 23279- 3563 15 Sep, 2016 Generalized anxiety disorder F41.1 ; Major depressive disorder, recurrent episode, unspecified severity F33.9 and Attention-deficit hyperactivity disorder, predominantly hyperactive type F90.1 [place] [address] [place] [address] 13622- 2880 08 Sep, 2016 Major depressive disorder, recurrent episode, unspecified severity F33.9 and Generalized anxiety disorder F41.1 [place] [id number] [place] [address] 75156- 5532 Sep, Psoriatic arthritis L40.50 [place] [id number] [place] [address] 64182- 3371 Sep, Diabetes E11.9 ; 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 ; Back pain M54.9 and Encounter for immunization Z23 [place] [id number] [place] [address] 33459- 9853 Aug, [place] [id number] [place] [address] 39420- 7271 Aug, [place] [id number] [place] [address] 87772- 5343 Jul, Major depressive disorder, recurrent episode, unspecified severity F33.9 ; Attention-deficit hyperactivity disorder, predominantly hyperactive type F90.1 and Generalized anxiety disorder F41.1 [place] [id number] [place] [address] 52315- 5333 Jul, [place] [id number] [place] [address] 92934- 6005 22 Jul, 2016 Major depressive disorder, recurrent, in partial remission F33.41 and Generalized anxiety disorder F41.1 [place] [id number] [place] [address] 13583- 1575 Jul, [place] [id number] [place] [address] 08360- 2962 19 Jul, 2016 [place] [id number] [place] [address] 06814- 2562 Jul, [place] [id number] [place] [address] 70158- 0889 Jul, [place] [id number] [place] [address] 41000- 0845 Jul, Diabetes E11.9 [place] [id number] [place] [address] 85709- 7175 May, [facility] [address], [place] [address]- 5900 May, [facility] [id number] [place] [address] 25515- 8884 May, [facility] [id number] [place] [address] 77397- 2475 May, Major depressive disorder, recurrent episode, unspecified severity F33.9 ; Generalized anxiety disorder F41.1 and Attention-deficit hyperactivity disorder, predominantly hyperactive type F90.1 [facility] [id number] [place] [address] 58012- 7153 May, [facility] [id number] [place] [address] 19161- 1664 May, Diabetes E11.9 [facility] [id number] [place] [address] 32767- 4696 May, [facility] [id number] [place] [address] 57127- 3649 May, [facility] [address] [place] [id number] May, Diabetes E11.9 ; Generalized anxiety disorder F41.1 and Nausea R11.0 [facility] [address], [place] [address]- 4871 May, Psoriatic arthritis L40.50 and Candidiasis of female genitalia B37.3 [facility] [address] [place] [address] 89979- 2449 May, [facility] [address] [place] [address] 19040- 5442 Apr, [facility] [id number] [place] [address] 99627- 2051 Apr, [facility] [address], [place] [address]- 1308 Apr, [facility] [address] [place] [address]- 1864 Apr, Generalized anxiety disorder F41.1 ; Major depressive disorder, recurrent episode, unspecified severity F33.9 and Attention-deficit hyperactivity disorder, predominantly hyperactive type F90.1 [facility] [address], [place] [address]- 3732 Apr, [facility] [id number] [place] [address] 30451- 4812 Apr, [facility] [id number] [place] [address] 89881- 1581 Apr, [facility] [id number] [place] [address] 21140- 9760 Apr, [facility] [id number] [place] [address] 33406- 8243 Apr, [facility] [id number] [place] [address] 89239- 6881 Mar, Attention-deficit hyperactivity disorder, predominantly hyperactive type F90.1 [facility] [address] [place] [address] 79887- 9395 Mar, [facility] [id number] [place] [address] 59649- 1161 Mar, [facility] [address] [address]- 4523 Mar, Major depressive disorder, recurrent episode, unspecified severity F33.9 and Generalized anxiety disorder F41.1 [facility] [address] [place] [address] 94127- 9139 February, Diabetes E11.9 [facility] [address] [address] February, OME (otitis media with effusion), bilateral H65.93 [facility] [address], [place] [address]- 2075 February, Back pain M54.9 [facility] [address] [address]- 6937 February, [facility] [id number] [place] [address] 36104- 4380 February, Nausea R11.0 [facility] [address] [place] [address] 75767- 3993 February, [facility] [id number] [place] [address] 14979- 9967 February, Pre-op evaluation Z01.818 ; Type 2 diabetes mellitus with hyperglycemia E11.65 and 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 [place] [id number] [place] [address] 40664- 9962 February, [facility] [id number] [place] [id number] February, Right otitis externa H60.91 [facility] [id number] [place] [address] [phone] Jan, [facility] [id number] [place] [address] [phone] [id number] Jan, Psoriatic arthritis L40.50 and Arthralgia, unspecified joint M25.50 [place] [address] [id number], [place] [address] Jan, Major depressive disorder, recurrent episode, unspecified severity F33.9 ; Generalized anxiety disorder F41.1 and Attention-deficit hyperactivity disorder, unspecified type F90.9 [facility] [address], [place] [address] 8[address] Jan, [facility] [id number] [place] [address] 40903- 8932 Jan, [facility] [address], [place] [address] 3676 Jan, Major depressive disorder, recurrent episode, unspecified severity F33.9 and Generalized anxiety disorder F41.1 [facility] [address], [place] [address] 1642 05 Jan, 2016 [facility] [id number] [place] [address] 88205- 7637 Dec, 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 I10 and Arthritis M19.90 [facility] [id number] [place] [address] 50819- 4495 Dec, [facility] [id number] [place] [address] 98114- 8131 Dec, [facility] [id number] [place] [address] 90302- 3611 Dec, [facility] [id number] [place] [address] 36484- 1916 Dec, [facility] [id number] [place] [address] 35576- 8623 Dec, [facility] [id number] [place] [address] 14413- 4305 Dec, Major depressive disorder, recurrent episode, unspecified severity F33.9 and Generalized anxiety disorder F41.1 [facility] [id number] [place] [address] 70015- 2470 Dec, Diabetes E11.9 ; Back pain M54.9 ; Thrush B37.0 and 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 I10 [facility] [id number] [place] [address] 37642- 2488 Dec, Major depressive disorder, recurrent episode, unspecified severity F33.9 and Generalized anxiety disorder F41.1 [facility] [id number] [place] [address] 68148- 0119 04 Dec, 2015 Major depressive disorder, recurrent episode, in partial or unspecified remission 296.35 ; Major depressive disorder, recurrent episode, unspecified severity F33.9 and Generalized anxiety disorder 300.02 [facility] [id number] [place] [address] 67492- 3450 Dec, [facility] [id number] [place] [address] 94455- 7351 Oct, [facility] [id number] [place] [address] 03990- 3295 Oct, [facility] [id number] [place] [address] 48825- 8453 Oct, [facility] [address] [address]- 3983 Oct, [facility] [id number] [place] [address] 06592- 7451 Oct, Major depressive disorder, recurrent, moderate F33.1 and Attention-deficit hyperactivity disorder, unspecified type F90.9 [facility] [address] [address]- 2539 Oct, snf (current) use of opiate analgesic Z79.891 [facility] [id number] [place] [address] 53885- 1958 Oct, [facility] [id number] [place] [address] 43055- 5066 Oct, [facility] [address] [place] [address] 44710 -5387 Sep, URI (upper respiratory infection) J06.9 ; Psoriasis L40.9 ; Cough R05 and Tobacco abuse Z72.0 [facility] [id number] [place] [address] 19699- 1806 Sep, Major depressive disorder, recurrent episode, in partial or unspecified remission 296.35 ; Generalized anxiety disorder 300.02 and ADHD, 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 [facility] [id number] [place] [address] 84789 -8757 Sep, Acute sinusitis, unspecified J01.90 [facility] [id number] [place] [address] 92937- 6860 Sep, [facility] [id number] [place] [address] 98940- 1525 Sep, Major depressive disorder, recurrent, moderate F33.1 ; Generalized anxiety disorder F41.1 and Attention-deficit hyperactivity disorder , combined type F90.2 [facility] [id number] [place] [address] 72583- 9296 Sep, [facility] [id number] [place] [address] 21197- 1815 Aug, [facility] [id number] [place] [address] 14867- 5604 Aug, [facility] [id number] [place] [address] 65993- 2659 Aug, Diabetes E11.9 and Anxiety F41.9 [facility] [id number] [place] [address] 01766- 5809 Aug, Major depressive disorder, recurrent episode, unspecified severity F33.9 and Generalized anxiety disorder F41.1 [facility] [id number] [place] [address] 21605- 0946 Aug, [facility] [id number] [place] [address] 00538- 5376 Jul, [facility] [id number] [place] [address] 90077- 7464 Jul, [facility] [id number] [place] [address] 13783- 1319 Jul, [facility] [id number] [place] [address] 47343- 5896 Jul, [facility] [id number] [place] [address] 57713- 3294 Jul, Major depressive disorder, recurrent episode, in partial or unspecified remission 296.35 ; Generalized anxiety disorder 300.02 and ADHD, 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 [facility] [id number] [place] [address] 53560- 2177 Jul, Major depressive disorder, recurrent episode, in partial or unspecified remission 296.35 ; Generalized anxiety disorder 300.02 and ADHD, 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 [facility] [id number] [place] [address] 07786- 3616 Jul, [facility] [id number] [place] [address] 37596- 8669 May, [facility] [id number] [place] [address] 55957- 9335 May, [facility] [id number] [place] [address] 34911- 7537 May, DM w/o complication type II 250.00 ; Dyspepsia 536.8 and PAD (peripheral artery disease) 443.9 [facility] [id number] [place] [address] 16655- 9788 May, Major depressive disorder, recurrent episode, moderate 296.32 and Generalized anxiety disorder 300.02 [facility] [id number] [place] [address] 77489- 5550 May, [facility] [id number] [place] [address] 53325- 5450 May, Major depressive disorder, recurrent episode, moderate 296.32 and Generalized anxiety disorder 300.02 [facility] [address] [place] [address] 86932- 5821 May, [facility] [id number] [place] [address] 91000- 9684 Apr, [facility] [id number] [place] [address] 16415- 2939 Apr, Major depressive disorder, recurrent episode, moderate 296.32 and Generalized anxiety disorder 300.02 [facility] [address] [place] [address] 61131- 0396 Apr, [facility] [id number] [place] [address] 44538- 5732 Apr, [facility] [address], [place] [address]- 9818 Apr, Generalized anxiety disorder 300.02 ; ADHD, 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 and Depression, major, recurrent, moderate 296.32 [facility] [address], [place] [address]- 3805 Apr, Major depressive disorder, recurrent episode, moderate 296.32 and Generalized anxiety disorder 300.02 [facility] [address], [place] [address]- 8727 Apr, [facility] [id number] [place] [address] 09182- 5513 Apr, [facility] [id number] [place] [address] 25331- 1572 Mar, [facility] [id number] [place] [address] 33616- 2005 Mar, Major depressive disorder, recurrent episode, moderate 296.32 and Generalized anxiety disorder 300.02 [facility] [address] [place] [address] 99646- 4135 Mar, ADHD, 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 ; Major depressive disorder, recurrent episode, severe, without mention of psychotic behavior 296.33 and Generalized anxiety disorder 300.02 [facility] [address], [place] [address]- 2439 February, Major depressive disorder, recurrent episode, moderate 296.32 and Generalized anxiety disorder 300.02 [facility] [address], [place] [address]- 5508 February, [facility] [id number] [place] [address] 15710- 5276 February, [facility] [address], [place] [address]- 1654 February, [facility] [id number] [place] [address] 74045- 3855 February, [facility] [address] [facility] [id number] [address]- 9979 February, DM w/o complication type II 250.00 ; Impacted cerumen 380.4 ; Essential hypertension, benign 401.1 and Irritable colon 564.1 [facility] [address], [place] [address]- 4601 February, [facility] [address] [facility] [id number] [address]- 6421 February, [facility] [address], [place] [address]- 6893 Jan, [facility] [id number] [address]- 4868 Dec, [facility] [address], [place] [address]- 2804 Dec, [facility] [address], [place] [address]- 4054 Dec, [facility] [address], [place] [address]- 9004 Dec, [facility] [address], [place] [address]- 6237 Dec, [facility] [address], [place] [address]- 0270 Dec, [facility] [id number], [place] [address]- 0448 Dec, [facility] [id number], [place] [address]- 7497 Dec, [facility] [address] 9933 Dec, [facility] [address] 8737 Dec, [facility] [place] [facility] [address] [id number] [place] [address]- 1788 Dec, 2014 [facility] [place] [facility] [address] [id number] [place] [address]- 8765 Dec, 2014 [facility] [place] [facility] [address] [id number] [place] [address]- 7515 Dec, 2014 [facility] [place] [facility] [address] [id number] [place] [address]- 0166 Dec, 2014 [facility] [place] [facility] [address] [id number] [place] [address]- 2385 Dec, [facility] [place] [facility] [address] [id number] [place] [address]- 9628 Dec, [facility] [place] [facility] [address] [id number] [place] [address]- 7320 Oct, [facility] [place] [facility] [address] [id number] [place] [address]- 6531 Oct, [facility] [place] [facility] [address] [id number] [place] [address]- 1244 Oct, [facility] [place] [facility] [address] [id number] [place] [address]- 6261 Oct, [facility] [place] [facility] [address] [id number] [place] [address]- 5578 Oct, [facility] [place] [facility] [address] [id number] [address]- 1804 Oct, [facility] [place] [facility] [address] [id number] [place] [address]- 4193 Oct, [facility] [place] [facility] [address] [id number] [place] [address]- 8369 Oct, [facility] [place] [facility] [address] [id number] [place] [address]- 8306 Oct, [facility] [place] [facility] [address] [id number], [place] [address]- 2440 Oct, [facility] [place] [facility] [address] [id number] [place] [address]- 5079 Oct, [facility] [place] [facility] [address] [id number] [place] [address]- 6400 Sep, [facility] [place] [facility] [address] [id number] [place] [address]- 5057 Sep, [facility] [place] [facility] [address] [id number] [place] [address]- 8717 Sep, [facility] [place] [facility] [address] [id number] [place] [address]- 6910 Sep, [facility] [place] [facility] [address] [id number] [place] [address]- 7312 Sep, [facility] [place] [facility] [address] [id number] [place] [address]- 5459 Sep, [facility] [place] [facility] [address] [id number] [place] [address]- 0765 Sep, [facility] [place] [facility] [address] [id number] [place] [address]- 9207 Sep, [facility] [place] [facility] [address] [id number] [place] [address]- 2019 Aug, [facility] [place] [facility] [address] [id number] [place] [address]- 1542 Aug, [facility] [place] [facility] [address] [id number] [place] [address]- 1299 Aug, [facility] [place] [facility] [address] [id number] [place] [address]- 9781 Aug, [facility] [place] [facility] [address] [id number] [place] [address]- 2462 Aug, [facility] [place] [facility] [address] [id number] [place] [address]- 7175 Aug, [facility] [place] [facility] [address] [id number] [place] [address]- 6646 Aug, [facility] [place] [facility] [address] [id number] [place] [address]- 2826 Aug, [facility] [place] [facility] [address] [id number] [place] [address]- 7715 Aug, [facility] [place] [facility] [address] [id number] [place] [address]- 0227 Aug, [facility] [place] [facility] [address] [id number] [place] [address]- 3498 Aug, [facility] [place] [facility] [address] [id number] [place] [address]- 0203 Aug, [facility] [place] [facility] [address] [id number] [place] [address]- 6709 Aug, [facility] [place] [facility] [address] [id number] [place] [address]- 8264 Aug, [facility] [place] [facility] [address] [id number] [place] [address]- 1031 Jul, [facility] [place] [facility] [address] [id number] [place] [address]- 7626 Jul, [facility] [place] [facility] [address] [id number] [place] [address]- 9573 Jul, [facility] [place] [facility] [address] [id number] [place] [address]- 2038 Jul, [facility] [place] [facility] [address] [id number] [place] [address]- 2489 Jul, [facility] [place] [facility] [address] [id number] [place] 0711 Jul, [facility] [place] [facility] [address] [id number] [place] [address]- 8700 Jul, [facility] [place] [facility] [address] [id number] [place] [address]- 1169 Jul, [facility] [place] [facility] [address] [id number] [place] [address]- 5931 Jul, [facility] [place] [facility] [address] [id number] [place] [address]- 8341 Jul, [facility] [place] [facility] [address] [id number] [place] [address]- 5497 Jul, [facility] [place] [facility] [address] [id number] [place] [address]- 1945 Jul, [facility] [place] [facility] [address] [id number] [place] [address]- 5434 Jul, [facility] [place] [facility] [address] [id number] [place] [address]- 9989 Jul, [facility] [place] [facility] [address] [id number] [place] [address]- 1522 May, [facility] [place] [facility] [address] [id number] [place] [address]- 3913 May, [facility] [place] [facility] [address] [id number] [place] [address]- 5322 May, [facility] [place] [facility] [address] [id number] [place] [address]- 7673 May, [facility] [place] [facility] [address] [id number] [place] [address]- 9040 May, [facility] [place] [facility] [address] [id number] [place] [address]- 6181 May, [facility] [place] [facility] [address] [id number] [place] [address]- 9037 May, [facility] [place] [facility] [address] [id number] [place] [address]- 6476 May, [facility] [place] [facility] [address] [id number] [place] [address]- 5279 May, [facility] [place] [facility] [address] [id number] [place] [address]- 3282 May, [facility] [place] [facility] [address] [id number] [place] [address]- 2434 May, [facility] [place] [facility] [address] [id number] [place] [address]- 2554 May, [facility] [place] [facility] [address] [id number] [place] [address]- 3233 Apr, [facility] [place] [facility] [address] [id number] [place] [address]- 9703 Apr, [facility] [place] [facility] [address] [id number] [place] [address]- 0277 Apr, [facility] [place] [facility] [address] [id number] [place] [address]- 6707 Apr, [facility] [place] [facility] [address] [id number] [place] [address]- 6506 Apr, [facility] [place] [facility] [address] [id number] [place] [address]- 6152 Apr, [facility] [place] [facility] [address] [id number] [place] [address]- 6565 Mar, [facility] [place] [facility] [address] [id number] [place] [address]- 5413 Mar, [facility] [place] [facility] [address] [id number] [place] [address]- 0388 Mar, [facility] [place] [facility] [address] [id number] [place] [address]- 5770 Mar, [facility] [place] [facility] [address] [id number] [place] [address]- 3219 Mar, [facility] [place] [facility] [address] [id number] [place] [address]- 0842 Mar, [facility] [place] [facility] [address] [id number] [place] [address]- 8341 Mar, [facility] [place] [facility] [address] [id number] [place] [address]- 3270 Mar, [facility] [place] [facility] [address] [id number] [place] [address]- 5714 Mar, [facility] [place] [facility] [address] [id number] [place] [address]- 4287 Mar, [facility] [place] [facility] [address] [id number] [place] [address]- 7035 Mar, [facility] [place] [facility] [address] [id number] [place] [address]- 4504 Mar, [facility] [place] [facility] [address] [id number] [place] [address]- 7058 Mar, [facility] [place] [facility] [address] [id number] [place] [address]- 6015 February, [facility] [place] [facility] [address] [id number] [place] [address]- 0042 February, [facility] [place] [facility] [address] [id number] [place] [address]- 1185 February, [facility] [place] [facility] [address] [id number] [place] [address]- 5945 February, [facility] [place] [facility] [address] [id number] [place] [address]- 7459 February, [facility] [place] [facility] [address] [id number] [place] [address]- 1825 February, [facility] [place] [facility] [address] [id number] [place] [address]- 3411 February, [facility] [place] [facility] [address] [id number] [place] [address]- 3859 February, [facility] [place] [facility] [address] [id number] [place] [address]- 9497 February, [facility] [place] [facility] [address] [id number] [place] [address]- 9781 February, [facility] [place] [facility] [address] [id number] [place] [address]- 2722 February, [facility] [place] [facility] [address] [id number] [place] [address]- 0884 February, [facility] [place] [facility] [address] [id number] [place] [address]- 7895 February, [facility] [place] [facility] [address] [id number] [place] [address]- 4602 February, [facility] [place] [facility] [address] [id number] [place] [address]- 4679 Jan, [facility] [place] [facility] [address] [id number] [place] [address]- 7016 Jan, [facility] [place] [facility] [address] [id number] [place] [address]- 4381 Jan, [facility] [place] [facility] [address] [id number] [place] [address]- 5957 Jan, [facility] [place] [facility] [address] [id number] [place] [address] Jan, [facility] [place] [facility] [address] [id number] [place] [address] Jan, [facility] [place] [facility] [address] [id number] [place] [address] Jan, [facility] [place] [facility] [address] [id number] [place] [address] Jan, [facility] [place] [facility] [address] [id number] [place] [address] Jan, [facility] [place] [facility] [address] [id number] [place] [address] [address] Dec, [facility] [place] [facility] [address] [id number] [place] [address] Dec, [facility] [place] [facility] [address] [id number] [place] [address] Dec, [facility] [place] [facility] [address] [id number] [place] [address] Dec, [facility] [place] [facility] [address] [id number] [place] [address]14 Dec, [facility] [place] [facility] [address] [id number] [place] [address] Dec, [facility] [place] [facility] [address] [id number] [place] [address] Dec, [facility] [place] [facility] [address] [id number] [place] [address] 2000 Dec, [facility] [place] [facility] [address] [id number] [place] [address] Dec, [facility] [place] [facility] [address] [id number] [place] [address] Dec, [facility] [place] [facility] [address] [id number] [place] [address]- [address] 14 Dec, 2013 [facility] [place] [facility] [address] [id number] [place] [address] Dec, [facility] [place] [facility] [address] [facility] [id number] [place] [address]- [address] Dec, [facility] [place] [facility] [address] [id number] [place] [address] 10 Dec, 2013 [facility] [place] [facility] [address] [id number] [place] [address] 10 Dec, 2013 [facility] [place] [facility] [address] [id number] [place] [address] 06 Dec, 2013 [facility] [place] [facility] [address] [id number] [place] [address] 06 Dec, 2013 [facility] [place] [facility] [address] [id number] [place] [address] Oct, [facility] [place] [facility] [address] [id number] [place] [address] Oct, [facility] [place] [facility] [address] [id number] [place] [address] Oct, [facility] [place] [facility] [address] [id number] [place] [address] Oct, [facility] [place] [facility] [address] [id number] [place] [address] Oct, [facility] [place] [facility] [address] [id number] [place] [address] Oct, [facility] [place] [facility] [address] [id number] [place] [address] Oct, [facility] [place] [facility] [address] [id number] [place] [address] Oct, [facility] [place] [facility] [address] [id number] [place] [address]- [address] Oct, [facility] [place] [facility] [address] [id number] [place] [address] Oct, [facility] [place] [facility] [address] [id number] [place] [address] Oct, [facility] [place] [facility] [address] [id number], [place] [address] Oct, [facility] [place] [facility] [address] [id number], [place] [address] Oct, [facility] [place] [facility] [address] [id number] [place] [address] Oct, [facility] [place] [facility] [address] [id number] [place] [address] Sep, [facility] [place] [facility] [address] [id number] [place] [address]99 Sep, [facility] [place] [facility] [address] [id number] [place] [address] 30 Sep, 2012 [facility] [address] [id number] [place] [address]- [address] 30 Sep, 2012 [facility] [address] [address] [id number] [place] [address] 27 Sep, 2013 [facility] [address] [id number] [place] [address] 27 Sep, 2012 [facility] [place] [facility] [address] [id number] [place] [address] 27 Sep, 2013 [facility] [address] [id number] [place] [address] Sep, [facility] [address] [id number] [place] [address] 8418 Sep, [facility] [address] [id number] [place] [address] 3935 Sep, [facility] [address] [id number] [place] [address] 9507 16 Sep, 2013 [facility] [address] [id number] [place] [address] 16 Sep, 2013 [facility] [address] [id number] [place] [address] 5744 13 Sep, 2013 [facility] [place] [facility] [address] [id number] [place] [address] 8376 13 Sep, 2013 [facility] [place] [facility] [address] [id number] [place] [address] 2546 10 Sep, 2013 [facility] [place] [facility] [address] [id number] [place] [address]- 5346 10 Sep, 2013 [facility] [place] [facility] [address] [id number] [place] [address] 02 Sep, 2013 [facility] [place] [facility] [address] [id number] [place] [address] Sep, [facility] [place] [facility] [address] [id number] [place] [address] 8155 15 Aug, 2013 [facility] [place] [facility] [address] [id number] [place] [address]- 2342 15 Aug, 2013 [facility] [place] [facility] [address] [id number] [place] [address]- 2262 16 Jul, 2013 [facility] [place] [facility] [address] [id number] [place] [address]- 0898 16 Jul, 2013 [facility] [address] [id number] [place] [address]- 5320 14 Jul, 2013 [facility] [place] [facility] [address] [id number] [place] [address] 2617 14 Jul, 2013 [facility] [address] [id number] [place] [address]- 2667 08 Jul, 2013 [facility] [place] [facility] [address] [id number] [place] [address]- 2402 20 Jul, 2012 [facility] [place] [facility] [address] [id number] [place] [address] 1890 19 Sep, 2012 [facility] [place] [facility] [address] [id number] [place] [address]- 5967 13 Jul, 2012 [facility] [place] [facility] [address] [id number] [place] [address]- 1625 08 Sep, 2012 [facility] [place] [facility] [address] [id number], [place] [address] 06 Sep, 2012 [facility] [place] [facility] [address] [id number] [place] [address]- 2547 06 Sep, 2012 [facility] [place] [facility] [address] [id number] [place] [address]- 2540 06 Sep, 2012 [facility] [place] [facility] [address] [id number] [place] [address]- 2955 03 Sep, 2012 [facility] [place] [facility] [address] [id number] [place] [address]- 0254 May, [facility] [place] [facility] [address] [id number] [place] [address] 4991 May, [facility] [place] [facility] [address] [id number] [place] [address] 1330 May, [facility] [place] [facility] [address] [id number] [place] [address]- 2208 May, [facility] [place] [facility] [address] [id number] [place] [address]- 2009 Apr, [facility] [place] [facility] [address] [id number] [place] [address]- 9420 Apr, [facility] [place] [facility] [address] [id number] [place] [address] 5156 Apr, [facility] [place] [facility] [address] [id number] [place] [address] Mar, [facility] [place] [facility] [address] [id number] [place] [address]- 5326 Mar, [facility] [place] [facility] [address] [id number] [place] [address] 8101 Mar, [facility] [place] [facility] [address] [id number] [place] [address]- 2292 Mar, [facility] [place] [facility] [address] [id number] [place] [address]- 5611 February, [facility] [place] [facility] [address] [id number] [place] [address] February, [facility] [place] [facility] [address] [id number] [place] [address]- 0381 Jan, [facility] [place] [facility] [address] [id number] [place] [address]- 7410 Dec, [facility] [place] [facility] [address] [id number] [place] [address]- 4778 Dec, [facility] [place] [facility] [address] [id number] [place] [address]- 5090 05 Dec, 2012 [facility] [address] [id number] [place] [address]- 8611 05 Dec, 2012 [facility] [place] [facility] [address] [id number] [place] [address]- 4947 28 Dec, 2012 [facility] [place] [facility] [address] [id number] [place] [address]- 1642 27 Dec, 2012 [facility] [place] [facility] [address] [id number] [place] [address]- 4523 Dec, [facility] [place] [facility] [address] [id number] [place] [address]- 6630 25 Dec, 2012 [facility] [place] [facility] [address] [id number] [place] [address]- 6710 Dec, [facility] [place] [facility] [address] [id number] [place] [address]- 5789 15 Dec, 2012 [facility] [address] [id number] [place] [address]- 1414 14 Dec, 2012 [facility] [address] [facility] [id number] [place] [address] 8416 Oct, [facility] [place] [facility] [address] [id number] [place] [address] 9[address] 14 Oct, 2012 [facility] [place] [facility] [address] [id number] [place] [address]- 9181 Oct, [facility] [place] [facility] [address] [id number] [place] [address] 4339 Oct, [facility] [place] [facility] [address] [id number] [place] [address]- 6671 Sep, [facility] [place] [facility] [address] [id number] [place] [address]- 7765 Sep, [facility] [place] [facility] [address] [id number], [place] [address] 4[address] Sep, [facility] [place] [facility] [address] [id number] [place] [address]- 9395 Sep, [facility] [place] [facility] [address] [id number] [place] [address]- 2347 Sep, [facility] [place] [facility] [address] [facility] [id number] [place] [address]- 4218 Sep, [facility] [place] [facility] [address] [id number], [place] [address] Aug, [facility] [place] [facility] [address] [id number] [place] [address]- 0878 Aug, [facility] [place] [facility] [address] [facility] [id number] [place] [address]- 7333 Aug, [facility] [place] [facility] [address] [facility] [id number], [place] [address]- 9023 Aug, [facility] [place] [facility] [address] [id number], [place] [address]- 7842 Aug, [facility] [place] [facility] [address] [id number][place] [address] Aug, [facility] [place] [facility] [address] [facility] [id number], [place] [address]- 0366 Jul, [facility] [place] [facility] [address] [id number], [place] [address]- 5589 Jul, [facility] [place] [facility] [address] [id number], [place] [address]- 3989 Jul, [facility] [place] [facility] [address] [id number], [place] [address]- 8296 Jul, [facility] [place] [facility] [address] [facility] [id number], [place] [address]- 3731 Jul, [facility] [place] [facility] [address] [facility] [id number], [place] [address]- 6834 Jul, [facility] [place] [facility] [address] [id number] [place] [address] 2546 27 Jul, 2012 [facility] [address] [id number] [place] [address] 2546 21 Jul, 2012 [facility] [place] [facility] [address] [id number] [place] [address] 2546 20 Jul, 2012 [facility] [address] [id number] [place] [address] 2546 11 Jul, 2012 [facility] [place] [facility] [address] [id number] [place] [address] 2546 Jul, [facility] [place] [facility] [address] [id number] [place] [address]- 8219 29 May, 2012 [facility] [place] [facility] [address] [id number] [place] [address]- 5460 May, [facility] [place] [facility] [address] [id number] [place] [address]- 2757 May, [facility] [address] [id number] [place] [address]- 4375 May, [facility] [place] [facility] [address] [id number] [place] [address]- 9118 Apr, [facility] [address] [id number] [place] [address]- 0242 Apr, [facility] [place] [facility] [address] [id number] [place] [address] 2546 Apr, [facility] [place] [facility] [address] [id number] [place] [address]- 2542 Apr, [facility] [place] [facility] [address] [id number] [place] [address] 2541 Apr, [facility] [place] [facility] [address] [id number] [place] [address]- 2546 Apr, [facility] [place] [facility] [address] [id number] [place] [address]- 1060 13 Apr, 2012 [facility] [place] [facility] [address] [id number] [place] [address]- 5726 09 Apr, 2012 [facility] [place] [facility] [address] [id number] [place] [address]- 2370 28 Mar, 2012 [facility] [place] [facility] [address] [id number] [place] [address]- 4787 27 Mar, 2012 [facility] [place] [facility] [address] [id number] [place] [address]- 8222 20 Mar, 2012 [facility] [place] [facility] [address] [id number] [place] [address]- 5452 15 Mar, 2012 [facility] [place] [facility] [address] [id number] [place] [address]- 9439 14 Mar, 2012 [facility] [place] [facility] [address] [id number] [place] [address]- 2729 Mar, [facility] [place] [facility] [address] [id number] [place] [address]- 4919 Mar, [facility] [place] [facility] [address] [id number] [place] [address]- 8160 Mar, [facility] [place] [facility] [address] [id number] [place] [address]- 9696 Mar, [facility] [place] [facility] [address] [id number] [place] [address]- 0963 February, [facility] [place] [facility] [address] [id number] [place] [address]- 4360 February, [facility] [place] [facility] [address] [id number] [place] [address]- 6106 February, [facility] [place] [facility] [address] [id number] [place] [address]- 1727 February, [facility] [place] [facility] [address] [id number] [place] [address]- 8291 13 Jan, 2012 [facility] [place] [facility] [address] [id number] [place] [address]- 4606 03 Jan, 2012 [facility] [place] [facility] [address] [id number] [place] [address]- 6066 28 Dec, 2011 [facility] [place] [facility] [address] [id number] [place] [address]- 7166 15 Dec, 2011 [facility] [place] [facility] [address] [id number] [place] [address]- 4296 14 Dec, 2011 [facility] [place] [facility] [address] [id number] [place] [address]- 0952 07 Dec, 2011 [facility] [place] [facility] [address] [id number] [place] [address]- 1616 28 Dec, 2011 [facility] [place] [facility] [address] [id number] [place] [address]- 7956 27 Dec, 2011 [facility] [place] [facility] [address] [id number] [place] [address]- 7526 21 Dec, 2011 [facility] [place] [facility] [address] [id number] [place] [address]- 5588 Dec, [facility] [place] [facility] [address] [id number] [place] [address]- 6941 07 Dec, 2011 [facility] [place] [facility] [address] [facility] [id number] [place] [address]- 4407 07 Dec, 2011 [facility] [place] [facility] [address] [facility] [id number] [place] [address]- 9676 07 Dec, 2011 [facility] [place] [facility] [address] [id number] [place] [address]- 3818 Dec, [facility] [place] [facility] [address] [id number] [place] [address]- 1556 Oct, [facility] [place] [facility] [address] [id number] [place] [address]- 6386 Oct, [facility] [place] [facility] [address] [facility] [id number] [place] [address]- 6347 Oct, [facility] [address] [id number] [place] [address]- 1917 Oct, [facility] [place] [facility] [address] [id number] [place] [address]- 9566 Oct, [facility] [place] [facility] [address] [id number] [place] [address]- 7670 Oct, [facility] [place] [facility] [address] [id number] [place] [address]- 6611 Oct, [facility] [place] [facility] [address] [id number] [place] [address]- 9279 Oct, [facility] [place] [facility] [address] [id number] [place] [address]- 9564 Sep, [facility] [place] [facility] [address] [id number] [place] [address]- 4289 Sep, [facility] [place] [facility] [address] [id number], [place] [address]- 6371 Sep, [facility] [place] [facility] [address] [id number], [place] [address]- 7189 Aug, [facility] [place] [facility] [address] [id number], [place] [address]- 2715 Aug, [facility] [place] [facility] [address] [id number], [place] [address]- 6508 16 Aug, 2011 [facility] [place] [facility] [address] [id number], [place] [address]- 9975 14 Aug, 2011 [facility] [place] [facility] [address] [id number], [place] [address]- 1122 Aug, [facility] [place] [facility] [address] [id number], [place] [address]- 2982 19 Jul, 2011 [facility] [place] [facility] [address] [id number], [place] [address]- 6251 13 Jul, 2011 [facility] [place] [facility] [address] [id number], [place] [address]- 4006 May, [facility] [address] [facility] [id number], [place] [address]- 6316 Dec, [facility] [address] [facility] [id number], [place] [address]- 5376 Oct, [facility] [address] [id number], [place] [address]- 4776 Sep, [facility] [address] [id number], [place] [address]- 8307 Sep, [facility] [address] [facility] [id number], [place] [address]- 4791 Sep, IMMUNIZATIONS No Known Immunizations SOCIAL HISTORY Never Assessed REASON FOR VISIT 06/07 Xanax refill PLAN OF CARE VITAL SIGNS MEDICATIONS Unknown [...] veinous reflux Surgical History Left Knee SOA-Dr. Melendrez-[facility] 05/19/16 Surgical History Colonoscopy- Dr Castanon 01/26/2017 Hospitalization History surgeries Hospitalization History Left Knee SOA--Dr. Melendrez--[facility] Hospitalization History Septic shock, UTI-[facility] 07/27/17 Hospitalization History Multiple falls, hyperglycemia, sepsis 07/2017 Hospitalization History Alcoholism, depression, DM, Falls-[facility] 08/23/17 Hospitalization History COPD exacerbation-[facility] 11/25/17 Hospitalization History COPD exacerbation-[facility] 11/28/17
--- OUTSIDE RECORDS SUMMARY | 2018-05-10 03:25 | XMS REPORT ---
Author Author KAYLA GUTIERREZ [facility] Address [address] [place] [address] Care Team Providers Care Spa Supervisor Name Role Phone KAYLA GUTIERREZ Unavailable PROBLEMS Type Condition ICD9-CM Code [id number] Code Onset Dates Condition Status SNOMED Code Problem Generalized anxiety disorder F41.1 Active 63223291 Problem Diabetes E11.9 Active 76900233 Problem Psoriasis L40.9 Active 0893679 Problem Tobacco abuse Z72.0 Active 69286033 Problem 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 I10 Active 55191059 Problem Back pain M54.9 Active 278288991 Problem Arthritis M19.90 Active 3784927 Problem FDC 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 Active 260712864 Problem Psoriatic arthritis L40.50 Active 890650046 Problem Psychophysiological insomnia F51.04 Active 01917152 Problem Other specified 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 Active 566557712 Problem Obesity (BMI 30-39.9) E66.9 Active 311372382 Problem Major depressive disorder, recurrent, moderate F33.1 Active 49561563 Problem Essential hypertension I10 Active 74932536 Problem Type 2 diabetes mellitus with hyperglycemia E11.65 Active 491543960088972 Problem Alcoholism F10.20 Active 6308143 Problem Frequent falls R29.6 Active 006154986 Problem Benzodiazepine abuse F13.10 Active 057104090 Problem PTSD (post-traumatic stress disorder) F43.10 Active 68581574 Problem Eating disorder F50.9 Active 44746753 Problem Attention-deficit hyperactivity disorder, combined type F90.2 Active 04005490 Problem COPD exacerbation J44.1 Active 017314632 Problem Anxiety F41.9 Active 42998375 Problem Decubitus ulcer of left buttock, stage 2 L89.322 Active 163131910 Problem BMI 40.0-44.9, adult Z68.41 Active 291097917 Problem Alcohol abuse F10.10 Active 81013108 Problem Pneumonia due to methicillin resistant Staphylococcus aureus, unspecified laterality, unspecified part of lung J15.212 Active 571393485022807 Problem Type 2 diabetes mellitus with unspecified complications E11.8 Active 84961342 Problem Attention-deficit hyperactivity disorder, predominantly hyperactive type F90.1 Active 795009228 Problem Type 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 Active 49727879 Problem Ulcer of right foot, unspecified ulcer stage L97.519 Active 47430545 Problem Attention deficit R41.840 Active 27172756 Problem Mental disorder, not otherwise specified F99 Active 43053932 Problem Insomnia due to other mental disorder F51.05 Active 24664280 ALLERGIES No Information ENCOUNTERS Encounter Location Date Diagnosis [place] [address] [address] Mar, [place] [address] [address]195- [address] 14 Mar, 2018 [place] [address] [address]65- 2908 Jan, [place] [address] 95043- 9151 Dec, Major depressive disorder, recurrent episode, unspecified severity F33.9 ; Generalized anxiety disorder F41.1 and Eating disorder F50.9 [place] [address] 85372- 8852 Dec, [place] [address] [place] [id number] [place] [address] 97993- 9121 Dec, [place] [address] 35830- 2974 Dec, [place] [address] 98663- 9057 Dec, Increased urinary frequency R35.0 ; Frequent falls R29.6 ; Decubitus ulcer of left buttock, stage 2 L89.322 ; Benzodiazepine abuse F13.10 ; BMI 40.0-44.9, adult Z68.41 and Yeast infection B37.9 [place] [address] 52916- 9674 Dec, [facility] [address], [place] [address] Dec, [facility] [address] [place] [address] 01063- 3475 Dec, Increased urinary frequency R35.0 [facility] [address] [place] [address] 74572- 6303 Dec, Increased urinary frequency R35.0 [facility] [address] [place] [id number] [place] [address] 10256- 6665 Dec, Generalized anxiety disorder F41.1 ; Major depressive disorder, recurrent, moderate F33.1 and Psychophysiological insomnia F51.04 [facility] [address] [place] [address] 61511- 5779 Dec, BMI 40.0-44.9, adult Z68.41 ; Type 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 ; Pneumonia due to methicillin resistant Staphylococcus aureus, unspecified laterality, unspecified part of lung J15.212 and COPD exacerbation J44.1 [facility] [address] [place] [address] 96355 -8414 Dec, [facility] [address] [place] [id number] [place] [address] [id number] Dec, [facility] [address] [place] [id number] [place] [address] [id number] Oct, [facility] [address] [place] [address] 65592 -6004 Oct, Frequency of urination R35.0 ; Bronchitis J40 and BMI 40.0- 44.9, adult Z68.41 [facility] [address] [place] [id number] [place] [address] [id number] Oct, [facility] [address] [place] [address] 48991- 2678 Oct, [facility] [address] [place] [id number] [place] [address] 51028- 6786 Oct, BMI 40.0-44.9, adult Z68.41 ; Type 2 diabetes mellitus with hyperglycemia E11.65 ; Essential hypertension I10 ; Vaginal yeast infection B37.3 ; Anxiety F41.9 and Alcoholism F10.20 [place] [address] [place] [id number] [place] [address] 36226- 3231 Oct, [place] [address] 54402- 7739 Oct, [place] [address] 69691- 3694 Sep, [address] 01773- 7553 Sep, Major depressive disorder, recurrent episode, unspecified severity F33.9 ; Generalized anxiety disorder F41.1 and Eating disorder F50.[address] 94394- 9594 Sep, Major depressive disorder, recurrent, moderate F33.1 ; Type 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 ; Alcohol abuse F10.10 ; Obesity (BMI 30-39.9) E66.9 and Psychophysiological insomnia F51.04 [place] [id number] [place] [address] 73719- 9132 Sep, Diabetes E11.9 and Generalized anxiety disorder F41.1 [place] [address] [place] [id number] [place] [address] 42702- 3723 Sep, Major depressive disorder, recurrent episode, unspecified severity F33.9 ; Generalized anxiety disorder F41.1 and Eating disorder F50.[address] 06636- 7060 Sep, [place] [address] 98566- 0506 Aug, [place] [address] 29243- 1052 Aug, Insomnia due to other mental disorder F51.05 ; Mental disorder, not otherwise specified F99 ; Attention deficit R41.840 ; Ulcer of right foot, unspecified ulcer stage L97.519 ; Cough R05 ; Diabetes E11.9 ; Sore in mouth K13.79 ; Generalized anxiety disorder F41.1 ; Major depressive disorder , recurrent episode, unspecified severity F33.9 and BMI 40.0-44.9, adult Z68.41 [place] [address], [place] [address] 4958 Aug, [place] [address], [place] [address]- 0418 Aug, [place] [address] [place] [address] 07992- 1853 Aug, [place] [address], [place] [address]- 1443 Aug, [place] [address], [place] [address]- 0239 Aug, Diabetes E11.9 [facility] [employer] [facility] [address] [facility] [place] [id number] Aug, Falling R29.6 ; Alcohol abuse F10.10 ; Major depressive disorder, recurrent episode, unspecified severity F33.9 ; 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 I10 ; Type 2 diabetes mellitus with unspecified complications E11.8 and FDC 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 [place] [id number] [place] [address] [id number] Aug, [facility] [email or web address] [address] [facility] [place] [id number] Aug, Alcohol abuse F10.10 ; Major depressive disorder, recurrent episode, unspecified severity F33.9 ; Generalized anxiety disorder F41.1 ; 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 ; Psoriatic arthritis L40.50 and Diabetes E11.9 [place] [address] [id number] [id number] Aug, [place] [address] [place] [id number] [id number] Jul, [facility] [address], [place] [address]- 6174 Jul, [facility] [address] [place] [id number] [place] [address] 62734- 1447 Jul, Generalized anxiety disorder F41.1 [facility] [address] [place] [id number] [place] [address] 59023- 7360 Jul, [facility] [address] [place] [id number] [place] [address] 18997- 9322 Jul, [facility] [address] [place] [id number] [place] [address] 59963- 7077 Jul, Generalized anxiety disorder F41.1 ; Major depressive disorder, recurrent episode, unspecified severity F33.9 ; PTSD (post-traumatic stress disorder) F43.10 ; Eating disorder F50.9 and Attention-deficit hyperactivity disorder, predominantly hyperactive type F90.1 [facility] [address], [place] [address]- 2851 Jul, [facility] [address] [place] [id number] [place] [address] 71908- 3516 Jul, [facility] [address] [place] [address] 46135- 8348 Jul, FDC 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 ; Type 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 ; Urinary tract infection, site not specified N39.0 ; Sepsis, unspecified organism A41.9 and Essential hypertension I10 [facility] [id number] [id number] Jul, [facility] [address], [place] [address] Jul, [facility] [address] [place] [id number] [address]- 4415 Jul, Generalized anxiety disorder F41.1 [facility] [address] [place] [id number] [address]- 5209 15 Jul, 2017 [facility] [address], [place] [address]- 5852 Jul, Generalized anxiety disorder F41.1 [facility] [address], [place] [address]- 5717 May, Generalized anxiety disorder F41.1 ; Major depressive disorder, recurrent episode, unspecified severity F33.9 ; PTSD (post-traumatic stress disorder) F43.10 ; Eating disorder F50.9 and Attention-deficit hyperactivity disorder, predominantly hyperactive type F90.1 [facility] [address] [place] [address] 33319- 4997 May, Diabetes E11.9 [facility] [address], [place] [address] May, Acute non-recurrent maxillary sinusitis J01.00 and Diabetes E11.9 [facility] [address], [place] [address]- 4228 May, [facility] [address], [place] [address]- 4090 May, [facility] [address], [place] [address]- 8797 May, Generalized anxiety disorder F41.1 [facility] [address], [place] [address]- 2038 Apr, [facility] [address], [place] [address]- 4482 Apr, [facility] [address], [place] [address]- 8447 Apr, [facility] [address], [place] [address]- 3156 Apr, Generalized anxiety disorder F41.1 ; Major depressive disorder, recurrent episode, unspecified severity F33.9 ; PTSD (post-traumatic stress disorder) F43.10 ; Eating disorder F50.9 and Attention-deficit hyperactivity disorder, predominantly hyperactive type F90.1 [place] [address] [place] [id number] [place] [address] 51116- 4032 Apr, Major depressive disorder, recurrent, moderate F33.1 [place] [address] [place] [id number] [place] [address] 86930- 0489 Mar, Diabetes E11.9 [place] [address] 21390- 5251 Mar, Attention-deficit hyperactivity disorder, combined type F90.2 [place] [address] [place] [id number] [place] [address] 57352- 4530 Mar, [place] [address] 43444- 3691 Mar, Diabetes E11.9 [place] [address] 52771- 8934 07 Mar, 2017 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 ; Psoriatic arthritis L40.50 ; Other specified 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 and 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 I10 [place] [address] [place] [id number] [place] [address] 96042- 3861 February, Back pain M54.9 [place] [address] [place] [id number] [place] [address] 57405- 7128 February, Attention-deficit hyperactivity disorder, combined type F90.2 [place] [address] [place] [id number] [place] [address] 86403- 8936 February, Major depressive disorder, recurrent episode, unspecified severity F33.9 and Generalized anxiety disorder F41.1 [place] [address] [place] [id number] [place] [address] 60547- 4022 Jan, Attention-deficit hyperactivity disorder, combined type F90.2 [place] [address] [place] [id number] [place] [address] 19116- 6494 Jan, Major depressive disorder, recurrent, moderate F33.1 ; Generalized anxiety disorder F41.1 and Attention-deficit hyperactivity disorder , combined type F90.2 [facility] [address], [place] [address]- 3074 Dec, Major depressive disorder, recurrent episode, unspecified severity F33.9 ; Generalized anxiety disorder F41.1 and Attention-deficit hyperactivity disorder, predominantly hyperactive type F90.1 [facility] [address] [place] [address] 44599- 8553 Dec, Major depressive disorder, recurrent episode, unspecified severity F33.9 and Generalized anxiety disorder F41.1 [facility] [address] [place] [id number] [place] [address] 50069- 9854 Dec, [place] [address] [place] [id number] [place] [address] 84121- 5851 Dec, [facility] [address] [place] [id number] [place] [address] 85217- 7886 Dec, Major depressive disorder, recurrent episode, unspecified severity F33.9 and Generalized anxiety disorder F41.1 [facility] [address] [place] [id number] [place] [address] 26921- 3858 Dec, Back pain M54.9 [facility] [address] [place] [id number] [place] [address] 90465- 7056 17 Dec, 2016 Eustachian tube dysfunction, right H69.81 and Arthritis M19.90 [facility] [address] [place] [address] 60066- 3515 Dec, [facility] [address] [place] [address] 33448- 7276 Dec, [facility] [address] [place] [address] 15471- 1457 07 Dec, 2016 Major depressive disorder, recurrent episode, unspecified severity F33.9 [facility] [address], [place] [address]- 2866 Oct, [facility] [address] [place] [id number] [place] [address] 44283 -1844 Oct, Acute non-recurrent pansinusitis J01.40 and Sore throat J02.9 [facility] [address] [place] [id number] [place] [address] 90945- 5937 Oct, Major depressive disorder, recurrent episode, unspecified severity F33.9 [facility] [address] [place] [id number] [place] [address] 80955- 1699 Oct, Major depressive disorder, recurrent episode, unspecified severity F33.9 and Generalized anxiety disorder F41.1 [place] [address] [place] [id number] [place] [address] 07469- 9877 Sep, [facility] [address] [place] [id number] [place] [address] 96875- 6531 Sep, Major depressive disorder, recurrent episode, unspecified severity F33.9 [place] [address] [place] [id number] [place] [address] 03199- 9020 Sep, Major depressive disorder, recurrent episode, unspecified severity F33.9 [facility] [address] [place] [id number] [place] [address] 88920 -6318 Sep, Sore throat J02.9 [facility] [address] [place] [address] 69818- 8528 Sep, Generalized anxiety disorder F41.1 ; Major depressive disorder, recurrent episode, unspecified severity F33.9 and Attention-deficit hyperactivity disorder, predominantly hyperactive type F90.1 [place] [address] [place] [address] 46281- 4622 Sep, Major depressive disorder, recurrent episode, unspecified severity F33.9 and Generalized anxiety disorder F41.1 [place] [address] [place] [address] 44161- 4527 Sep, Psoriatic arthritis L40.50 [place] [address] [place] [id number] [place] [address] 33950- 1259 Sep, 2016 Diabetes E11.9 ; FDC 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 ; Back pain M54.9 and Encounter for immunization Z23 [facility] [address] [place] [id number] [place] [address] 76397- 4568 Aug, [facility] [address] [place] [id number] [place] [address] 93067- 4527 Aug, [facility] [address] 19356- 8864 Jul, Major depressive disorder, recurrent episode, unspecified severity F33.9 ; Attention-deficit hyperactivity disorder, predominantly hyperactive type F90.1 and Generalized anxiety disorder F41.1 [facility] [address] 95451- 0195 Jul, [facility] [address] [place] [id number] [place] [address] 10785- 1057 Jul, Major depressive disorder, recurrent, in partial remission F33.41 and Generalized anxiety disorder F41.1 [facility] [address] [place] [id number] [place] [address] 99462- 2947 Jul, [facility] [address] [place] [id number] [place] [address] 29742- 2130 Jul, [facility] [address] [place] [id number] [place] [address] 98850- 6864 Jul, [facility] [address] [place] [id number] [place] [address] 70576- 6499 Jul, [facility] [address] [place] [id number] [place] [address] 20066- 7360 Jul, Diabetes E11.9 [facility] [address] [place] [id number] [place] [address] 46435- 3746 May, [facility] [address] [place] [id number] [place] [address] 49267- 8772 May, [facility] [address] [place] [id number] [place] [address] 38782- 3440 May, [place] [address], [place] [address]- [address] May, Major depressive disorder, recurrent episode, unspecified severity F33.9 ; Generalized anxiety disorder F41.1 and Attention-deficit hyperactivity disorder, predominantly hyperactive type F90.1 [place] [address], [place] [address]- 6171 May, [place] [address] [place] [id number] [place] [address] 95535- 1515 May, Diabetes E11.9 [place] [address] [place] [id number] [place] [address] 46895- 2439 May, [place] [address] [place] [id number] [place] [address] 57756- 8058 May, Via [facility] [address] [place] [id number] May, Diabetes E11.9 ; Generalized anxiety disorder F41.1 and Nausea R11.0 [place] [address] [place] [id number] [place] [address] 65056- 7347 May, Psoriatic arthritis L40.50 and Candidiasis of female genitalia B37.3 [place] [address] [place] [address] 66571- 5338 May, [place] [address], [place] [address]- 9590 Apr, [place] [address], [place] [address]- 5037 Apr, [place] [address] [place] [address] 58148- 7438 Apr, [place] [address] [place] [id number] [place] [address] 02883- 7479 Apr, Generalized anxiety disorder F41.1 ; Major depressive disorder, recurrent episode, unspecified severity F33.9 and Attention-deficit hyperactivity disorder, predominantly hyperactive type F90.1 [place] [address] [place] [address] [address]- 5232 Apr, [facility] [address] [place] [address] 58568- 6226 Apr, [facility] [address] [id number] [place] [address] 36798- 8530 Apr, [facility] [address] [place] [id number] [place] [address] 92889- 2138 Apr, [facility] [address] [place] [id number] [place] [address] 53643- 6453 Apr, [facility] [address] [place] [id number] [place] [address] 13295- 6864 Mar, Attention-deficit hyperactivity disorder, predominantly hyperactive type F90.1 [facility] [address] [place] [id number] [place] [address] 88352- 4792 Mar, [facility] [address] [place] [id number] [place] [address] 53042- 2575 Mar, [facility] [address] [id number] [place] [address] 44875- 9440 Mar, Major depressive disorder, recurrent episode, unspecified severity F33.9 and Generalized anxiety disorder F41.1 [facility] [address], [place] [address]- 7980 February, Diabetes E11.9 [facility] [address], [place] [address] February, OME (otitis media with effusion), bilateral H65.93 [facility] [address] [place] [address] 83450- 2437 February, Back pain M54.9 [facility] [address] [id number] [place] [address] 92724- 8574 February, [facility] [address], [place] [address]- 2093 13 May, 2016 Nausea R11.0 [place] [address] [place] [id number] [place] [address] 41350- 4970 February, [place] [address] [place] [id number] [place] [address] 37448- 0577 February, Pre-op evaluation Z01.818 ; Type 2 diabetes mellitus with hyperglycemia E11.65 and 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 [place] [address] [place] [id number] [place] [address] 11848- 8185 February, [facility] [id number] [place] [address] 17615 -6788 February, Right otitis externa H60.91 [place] [address] [place] [id number] [place] [address] 78376- 0361 Jan, [place] [address] [place] [id number] [place] [address] 96626- 7172 Jan, Psoriatic arthritis L40.50 and Arthralgia, unspecified joint M25.50 [place] [address] [place] [id number] [place] [address] 98538- 3249 Jan, Major depressive disorder, recurrent episode, unspecified severity F33.9 ; Generalized anxiety disorder F41.1 and Attention-deficit hyperactivity disorder, unspecified type F90.9 [place] [address] [place] [id number] [place] [address] 90411- 9394 Jan, [place] [address] [place] [id number] [place] [address] 51337- 4093 Jan, [place] [address] [place] [id number] [place] [address] 77838- 0794 Jan, Major depressive disorder, recurrent episode, unspecified severity F33.9 and Generalized anxiety disorder F41.1 [place] [address] [place] [address] 83298- 3514 Jan, [place] [address] [place] [id number] [place] [address] 61207- 0990 Dec, 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 I10 and Arthritis M19.90 [facility] [address], [place] [address]- 2967 Dec, [facility] [id number] [place] [address] 44206- 2862 Dec, [facility] [id number] [place] [address] 32362- 6491 Dec, [facility] [id number] [place] [address] 15092- 6555 Dec, [facility] [id number] [place] [address] 54692- 3937 Dec, [facility] [facility] [id number] [place] [address] 54078- 2293 Dec, Major depressive disorder, recurrent episode, unspecified severity F33.9 and Generalized anxiety disorder F41.1 [facility] [id number] [place] [address] 37678- 6584 Dec, Diabetes E11.9 ; Back pain M54.9 ; Thrush B37.0 and 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 I10 [facility] [id number] [place] [address] 05430- 7188 Dec, Major depressive disorder, recurrent episode, unspecified severity F33.9 and Generalized anxiety disorder F41.1 [facility] [id number] [place] [address] 28390- 0284 Dec, Major depressive disorder, recurrent episode, in partial or unspecified remission 296.35 ; Major depressive disorder, recurrent episode, unspecified severity F33.9 and Generalized anxiety disorder 300.02 [facility] [id number] [place] [address] 81830- 2859 Dec, [facility] [id number] [place] [address] 01582- 5137 Oct, [facility] [id number] [place] [address] 49209- 7901 Oct, [facility] [id number] [place] [address] 88320- 7968 Oct, [facility] [id number] [place] [address] 20602- 4852 Oct, [facility] [id number] [place] [address] 12662- 0597 Oct, Major depressive disorder, recurrent, moderate F33.1 and Attention-deficit hyperactivity disorder, unspecified type F90.9 [facility] [id number] [place] [address] 54415- 8834 Oct, relief map modeler (current) use of opiate analgesic Z79.891 [place] [address] 52916- 4026 Oct, [place] [id number] [place] [address] 51984- 1801 Oct, [facility] [id number] [place] [address] 90466 -9823 Sep, URI (upper respiratory infection) J06.9 ; Psoriasis L40.9 ; Cough R05 and Tobacco abuse Z72.0 [facility] [id number] [place] [address] 77537- 2199 Sep, Major depressive disorder, recurrent episode, in partial or unspecified remission 296.35 ; Generalized anxiety disorder 300.02 and ADHD, 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 [facility] [id number] [place] [address] 97694 -0546 Sep, Acute sinusitis, unspecified J01.90 [facility] [id number] [place] [address] 73585- 2620 Sep, [facility] [id number] [place] [address] 86725- 4393 Sep, Major depressive disorder, recurrent, moderate F33.1 ; Generalized anxiety disorder F41.1 and Attention-deficit hyperactivity disorder , combined type F90.2 [place] [address] [address] 5271 Sep, [facility] [id number] [place] [address] 26113- 6075 Aug, [facility] [address] [address]- 1544 Aug, [facility] [id number] [place] [address] 53084- 2331 Aug, Diabetes E11.9 and Anxiety F41.9 [facility] [id number] [place] [address] 01324- 4318 Aug, Major depressive disorder, recurrent episode, unspecified severity F33.9 and Generalized anxiety disorder F41.1 [facility] [id number] [place] [address] 19704- 9346 Aug, [facility] [id number] [place] [address] 42492- 4364 Jul, [facility] [address] [place] [address] 51617- 5659 Jul, [facility] [id number] [place] [address] 36167- 6804 Jul, [facility] [address] [address]- 4393 Jul, [facility] [address] [place] [address] 82661- 0221 Jul, Major depressive disorder, recurrent episode, in partial or unspecified remission 296.35 ; Generalized anxiety disorder 300.02 and ADHD, 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 [facility] [address], [place] [address]- 7211 10 Jul, 2015 Major depressive disorder, recurrent episode, in partial or unspecified remission 296.35 ; Generalized anxiety disorder 300.02 and ADHD, 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 [facility] [address] [place] [address] 22978- 9525 Jul, [facility] [address], [place] [address]- 1584 May, [facility] [address] [place] [address] 43408- 9085 May, [facility] [address] [place] [address] 66986- 3097 May, DM w/o complication type II 250.00 ; Dyspepsia 536.8 and PAD (peripheral artery disease) 443.9 [facility] [address] [place] [address] 05084- 9336 May, Major depressive disorder, recurrent episode, moderate 296.32 and Generalized anxiety disorder 300.02 [facility] [id number] [place] [address] 53459- 9415 May, [facility] [id number] [place] [address] 21561- 1593 May, Major depressive disorder, recurrent episode, moderate 296.32 and Generalized anxiety disorder 300.02 [facility] [address] [place] [address] 42015- 8220 May, [facility] [address] [place] [address] 07454- 1696 Apr, [facility] [address] [place] [address] 59278- 7986 Apr, Major depressive disorder, recurrent episode, moderate 296.32 and Generalized anxiety disorder 300.02 [facility] [address] [address]- 0853 Apr, [facility] [id number] [place] [address] 13059- 9060 Apr, [facility] [address] [address]- 4724 Apr, Generalized anxiety disorder 300.02 ; ADHD, 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 and Depression, major, recurrent, moderate 296.32 [facility] [address] [place] [address] 07693- 1461 Apr, Major depressive disorder, recurrent episode, moderate 296.32 and Generalized anxiety disorder 300.02 [facility] [id number] [place] [address] 43185- 2293 Apr, [facility] [id number] [place] [address] 10638- 3642 Apr, [facility] [id number] [place] [address] 75103- 3198 Mar, [facility] [address] 32967- 3498 Mar, Major depressive disorder, recurrent episode, moderate 296.32 and Generalized anxiety disorder 300.02 [facility] [id number] [place] [address] 30706- 0951 Mar, ADHD, 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 ; Major depressive disorder, recurrent episode, severe, without mention of psychotic behavior 296.33 and Generalized anxiety disorder 300.02 [facility] [id number] [place] [address] 25627- 6099 February, Major depressive disorder, recurrent episode, moderate 296.32 and Generalized anxiety disorder 300.02 [facility] [id number] [place] [address] 02686- 3913 February, [facility] [id number] [place] [address] 39385- 7182 February, [facility] [id number] [place] [address] 72860- 6070 February, [facility] [id number] [place] [address] 54512- 8036 February, [facility] [address] [place] [address] 67560- 5772 February, DM w/o complication type II 250.00 ; Impacted cerumen 380.4 ; Essential hypertension, benign 401.1 and Irritable colon 564.1 [facility] [address] [id number] [place] [address]- 2046 February, [facility] [address] [id number] [place] [address]- 8766 February, [facility] [address] [id number] [place] [address]- 9736 Jan, [facility] [place] [facility] [address] [id number] [place] [address] 2546 Dec, [facility] [place] [facility] [address] [id number] [place] [address]- 3254 Dec, [facility] [place] [facility] [address] [id number] [place] [address]- 0758 Dec, [facility] [address] [facility] [id number] [place] [address]- 1034 Dec, [facility] [place] [facility] [address] [id number] [place] [address]- 8410 Dec, [facility] [place] [facility] [address] [id number] [place] [address]- 5185 Dec, [facility] [place] [facility] [address] [facility] [id number] [place] [address]- 0014 Dec, [facility] [address] [id number] [place] [address]- 5014 Dec, [facility] [place] [facility] [address] [id number] [place] [address]- 6171 Dec, [facility] [place] [facility] [address] [id number] [place] 9445 Dec, [facility] [place] [facility] [address] [facility] [id number] [place] 9337 Dec, [facility] [place] [facility] [address] [facility] [id number] [place] [address]- 7071 Dec, [facility] [place] [facility] [address] [id number] [place] [address]- 2600 Dec, 2014 [facility] [place] [facility] [address] [id number] [place] [address]- 7210 Dec, 2014 [facility] [place] [facility] [address] [id number] [place] [address]- 2615 Dec, [facility] [place] [facility] [address] [id number] [place] [address]- 9268 Dec, [facility] [place] [facility] [address] [id number] [place] [address]- 9019 Oct, [facility] [place] [facility] [address] [id number] [place] [address]- 6451 Oct, [facility] [place] [facility] [address] [id number] [place] [address]- 2811 Oct, [facility] [place] [facility] [address] [id number] [place] [address]- 4035 Oct, [facility] [place] [facility] [address] [id number] [place] [address]- 6743 Oct, [facility] [place] [facility] [address] [id number] [place] [address]- 4373 Oct, [facility] [place] [facility] [address] [id number] [place] [address]- 2977 Oct, [facility] [place] [facility] [address] [id number] [place] [address]- 8715 Oct, [facility] [place] [facility] [address] [id number] [place] [address]- 1015 Oct, [facility] [place] [facility] [address] [id number] [place] [address]- 9075 Oct, [facility] [place] [facility] [address] [id number] [place] [address]- 2587 Oct, [facility] [place] [facility] [address] [id number] [place] [address]- 5549 Sep, [facility] [place] [facility] [address] [id number] [place] [address]- 8830 Sep, [facility] [place] [facility] [address] [id number] [place] [address]- 8314 Sep, [facility] [place] [facility] [address] [id number] [place] 2921 Sep, [facility] [place] [facility] [address] [id number] [place] [address]- 3135 Sep, [facility] [place] [facility] [address] [id number] [place] [address]- 3251 Sep, [facility] [place] [facility] [address] [id number] [place] [address]- 5102 Sep, [facility] [place] [facility] [address] [id number] [place] [address]- 8692 Sep, [facility] [place] [facility] [address] [id number] [place] [address]- 0132 Aug, [facility] [place] [facility] [address] [id number] [place] [address]- 6510 Aug, [facility] [place] [facility] [address] [id number] [place] [address]- 6969 Aug, [facility] [place] [facility] [address] [id number] [place] [address]- 7014 Aug, [facility] [place] [facility] [address] [id number] [address]- 0758 Aug, [facility] [place] [facility] [address] [id number] [place] [address]- 3426 Aug, [facility] [place] [facility] [address] [id number] [place] [address]- 4826 Aug, [facility] [place] [facility] [address] [id number] [place] [address]- 9711 Aug, [facility] [place] [facility] [address] [id number] [place] [address]- 8478 Aug, [facility] [place] [facility] [address] [id number] [place] [address]- 0433 Aug, [facility] [place] [facility] [address] [id number] [place] [address]- 9194 Aug, [facility] [place] [facility] [address] [id number] [place] [address]- 8202 Aug, [facility] [place] [facility] [address] [id number] [place] [address]- 5644 Aug, [facility] [place] [facility] [address] [id number] [place] [address]- 6604 Aug, [facility] [place] [facility] [address] [id number] [place] [address]- 6309 Jul, [facility] [place] [facility] [address] [id number] [place] [address]- 9418 Jul, [facility] [place] [facility] [address] [id number] [place] [address]- 8719 Jul, [facility] [place] [facility] [address] [id number] [place] [address]- 5608 Jul, [facility] [place] [facility] [address] [id number] [place] [address]- 4516 Jul, [facility] [place] [facility] [address] [id number] [place] [address]- 4533 Jul, [facility] [place] [facility] [address] [id number] [place] [address]- 1558 Jul, [facility] [place] [facility] [address] [id number] [place] [address]- 3510 Jul, [facility] [place] [facility] [address] [id number] [place] [address]- 8615 Jul, [facility] [place] [facility] [address] [id number] [place] [address]- 1681 Jul, [facility] [place] [facility] [address] [id number] [place] [address]- 9904 Jul, [facility] [place] [facility] [address] [id number] [place] [address]- 1564 Jul, [facility] [place] [facility] [address] [id number] [place] [address]- 4700 Jul, [facility] [place] [facility] [address] [id number] [place] [address]- 1734 Jul, [facility] [place] [facility] [address] [id number] [place] [address]- 5721 May, [facility] [place] [facility] [address] [id number] [place] [address]- 9745 May, [facility] [place] [facility] [address] [id number] [place] [address]- 2964 May, [facility] [place] [facility] [address] [id number] [place] [address]- 9763 May, [facility] [place] [facility] [address] [id number] [place] [address]- 5694 May, [facility] [place] [facility] [address] [id number] [place] [address]- 0224 May, [facility] [place] [facility] [address] [id number] [place] [address]- 4108 May, [facility] [place] [facility] [address] [id number] [place] [address]- 7629 May, [facility] [place] [facility] [address] [id number] [place] [address]- 4949 May, [facility] [place] [facility] [address] [id number] [place] [address]- 3949 May, [facility] [place] [facility] [address] [id number] [place] [address]- 2489 May, [facility] [place] [facility] [address] [id number] [place] [address]- 7991 May, [facility] [place] [facility] [address] [id number] [place] [address]- 7117 Apr, [facility] [place] [facility] [address] [id number] [place] [address]- 9950 Apr, [facility] [place] [facility] [address] [id number] [place] [address]- 0537 Apr, [facility] [place] [facility] [address] [id number] [place] [address]- 1527 Apr, [facility] [place] [facility] [address] [id number] [place] [address]- 6224 Apr, [facility] [place] [facility] [address] [id number] [place] [address]- 1248 Apr, [facility] [place] [facility] [address] [id number] [place] [address]- 2960 Mar, [facility] [place] [facility] [address] [id number] [place] [address]- 5251 Mar, [facility] [place] [facility] [address] [id number] [place] [address]- 5504 Mar, [facility] [place] [facility] [address] [id number] [place] [address]- 7079 Mar, [facility] [place] [facility] [address] [id number] [place] [address]- 2432 Mar, [facility] [place] [facility] [address] [id number] [place] [address]- 7146 Mar, [facility] [place] [facility] [address] [id number] [place] [address]- 3780 Mar, [facility] [place] [facility] [address] [id number] [place] [address]- 9790 Mar, [facility] [place] [facility] [address] [id number] [place] [address]- 6761 Mar, [facility] [place] [facility] [address] [id number] [place] [address]- 6831 Mar, [facility] [place] [facility] [address] [id number] [place] [address]- 9691 Mar, [facility] [place] [facility] [address] [id number] [place] [address]- 3788 Mar, [facility] [place] [facility] [address] [id number] [place] [address]- 0361 Mar, [facility] [place] [facility] [address] [id number] [place] [address]- 1003 February, [facility] [place] [facility] [address] [id number] [place] [address]- 0965 February, [facility] [place] [facility] [address] [id number] [place] [address]- 1492 February, [facility] [place] [facility] [address] [id number] [place] [address]- 8260 February, [facility] [place] [facility] [address] [id number] [place] [address]- 9218 February, [facility] [place] [facility] [address] [id number] [place] [address]- 2040 February, [facility] [place] [facility] [address] [id number] [place] [address]- 9458 February, [facility] [place] [facility] [address] [id number] [place] [address]- 1293 February, [facility] [place] [facility] [address] [id number] [place] [address]- 5675 February, [facility] [place] [facility] [address] [id number] [place] [address]- 1135 February, [facility] [place] [facility] [address] [id number] [place] [address]- 8897 February, [facility] [place] [facility] [address] [id number] [place] [address]- 8161 February, [facility] [address] [id number] [place] [address]- 7738 February, [facility] [place] [facility] [address] [id number] [place] [address]- 9831 February, [facility] [place] [facility] [address] [id number] [place] [address]- 4052 Jan, [facility] [place] [facility] [address] [id number] [place] [address]- 4355 Jan, [facility] [place] [facility] [address] [id number] [place] [address]- 6267 Jan, [facility] [place] [facility] [address] [id number] [place] [address]- 0918 Jan, [facility] [place] [facility] [address] [id number] [place] [address]- 0116 Jan, [facility] [place] [facility] [address] [id number] [place] [address]- 1274 Jan, [facility] [place] [facility] [address] [id number] [place] [address]- 4573 Jan, [facility] [place] [facility] [address] [id number] [place] [address]- 5067 Jan, [facility] [place] [facility] [address] [id number] [place] [address]- 8600 Jan, [facility] [place] [facility] [address] [id number] [place] [address]- 9139 Dec, [facility] [place] [facility] [address] [id number] [place] [address] Dec, [facility] [place] [facility] [address] [id number] [place] [address] Dec, [facility] [place] [facility] [address] [id number] [place] [address] Dec, [facility] [place] [facility] [address] [id number] [place] [address] Dec, [facility] [place] [facility] [address] [id number] [place] [address] Dec, [facility] [place] [facility] [address] [id number] [place] [address] Dec, [facility] [place] [facility] [address] [id number] [place] [address] Dec, [facility] [place] [facility] [address] [id number] [place] [address] Dec, [facility] [place] [facility] [address] [id number] [place] [address] Dec, [facility] [place] [facility] [address] [id number] [place] [address] 14 Dec, 2013 [facility] [place] [facility] [address] [id number] [place] [address] Dec, [facility] [place] [facility] [address] [id number] [place] [address] Dec, [facility] [place] [facility] [address] [id number] [place] [address] 10 Dec, 2013 [facility] [place] [facility] [address] [id number] [place] [address] Dec, [facility] [place] [facility] [address] [id number] [place] [address] Dec, [facility] [place] [facility] [address] [id number] [place] [address] Dec, [facility] [place] [facility] [address] [id number] [place] [address] Oct, [facility] [place] [facility] [address] [id number] [place] [address] Oct, [facility] [place] [facility] [address] [id number] [place] [address]- [address] Oct, [facility] [place] [facility] [address] [id number] [place] [address] Oct, [facility] [place] [facility] [address] [id number] [place] [address] Oct, [facility] [place] [facility] [address] [id number] [place] [address] Oct, [facility] [place] [facility] [address] [id number] [place] [address]- [address] Oct, [facility] [place] [facility] [address] [id number] [place] [address]- [address] Oct, [facility] [place] [facility] [address] [id number] [place] [address] Oct, [facility] [place] [facility] [address] [id number] [place] [address] Oct, [facility] [place] [facility] [address] [id number] [place] [address] Oct, [facility] [place] [facility] [address] [id number] [place] [address]- [address] Oct, [facility] [place] [facility] [address] [id number] [place] [address] Oct, [facility] [place] [facility] [address] [id number] [place] [address]- 3968 Oct, [facility] [place] [facility] [address] [id number] [place] [address] Sep, [facility] [place] [facility] [address] [id number] [place] [address] Sep, [facility] [place] [facility] [address] [id number] [place] [address] Sep, [facility] [place] [facility] [address] [id number] [place] [address] Sep, [facility] [place] [facility] [address] [id number] [place] [address] 27 Sep, 2013 [facility] [address] [id number] [place] [address] 27 Sep, 2012 [facility] [address] [id number] [place] [address] 27 Sep, 2013 [facility] [address] [id number] [place] [address] 27 Sep, 2013 [facility] [address] [id number] [place] [address] 27 Sep, 2013 [facility] [address] [id number] [place] [address] 27 Sep, 2013 [facility] [address] [id number] [place] [address] 16 Sep, 2013 [facility] [address] [id number] [place] [address]- [address] 16 Sep, 2013 [facility] [address] [id number] [place] [address]- [address] 13 Sep, 2013 [facility] [address] [id number] [place] [address]- [address] 13 Sep, 2013 [facility] [address] [id number] [place] [address] 10 Sep, 2013 [facility] [address] [id number] [place] [address]- [address] 10 Sep, 2013 [facility] [place] [facility] [address] [id number] [place] [address]- [address] 02 Sep, 2013 [facility] [place] [facility] [address] [id number] [place] [address] 02 Sep, 2013 [facility] [place] [facility] [address] [id number] [place] [address] 7913 15 Aug, 2013 [facility] [place] [facility] [address] [id number] [place] [address]30 15 Aug, 2013 [facility] [place] [facility] [address] [id number] [place] [address]- [address]64 16 Jul, 2012 [facility] [place] [facility] [address] [id number] [place] [address] 8571 16 Jul, 2012 [facility] [place] [facility] [address] [id number] [place] [address]- 254 14 Jul, 2012 [facility] [place] [facility] [address] [id number] [place] [address]- 1206 14 Jul, 2012 [facility] [place] [facility] [address] [id number] [place] [address]- 8697 08 Jul, 2012 [facility] [place] [facility] [address] [id number] [place] [address] 8880 20 Jul, 2012 [facility] [place] [facility] [address] [id number] [place] [address]- 5846 19 Jul, 2012 [facility] [place] [facility] [address] [id number] [place] [address] 4601 13 Jul, 2012 [facility] [place] [facility] [address] [id number] [place] [address]- 8803 08 Jul, 2012 [facility] [place] [facility] [address] [id number] [place] [address]- 2548 06 Jul, 2012 [facility] [place] [facility] [address] [id number] [place] [address] 2542 06 Jul, 2012 [facility] [place] [facility] [address] [id number] [place] [address]- 2545 06 Jul, 2012 [facility] [place] [facility] [address] [id number] [place] [address] 2548 03 Jul, 2012 [facility] [place] [facility] [address] [id number] [place] [address] 2545 29 May, 2013 [facility] [place] [facility] [address] [id number] [place] [address]- 254 26 May, 2012 [facility] [place] [facility] [address] [id number] [place] [address] 9724 May, [facility] [address] [id number] [place] [address] 4060 May, [facility] [place] [facility] [address] [id number] [place] [address]- 3032 Apr, [facility] [place] [facility] [address] [id number] [place] [address]- 1677 Apr, [facility] [place] [facility] [address] [id number] [place] [address]- 8307 Apr, [facility] [address] [id number] [place] [address]- 8308 Mar, [facility] [place] [facility] [address] [id number] [place] [address]- 7651 Mar, [facility] [place] [facility] [address] [id number] [place] [address] 3176 Mar, [facility] [place] [facility] [address] [id number] [place] [address]- 5447 Mar, [facility] [place] [facility] [address] [id number] [place] [address] 2171 February, [facility] [place] [facility] [address] [id number] [place] [address]- 3324 February, [facility] [place] [facility] [address] [id number], [place] [address] Jan, [facility] [place] [facility] [address] [id number], [place] [address] 1534 Dec, [facility] [place] [facility] [address] [id number] [place] [address]- 8607 Dec, [facility] [place] [facility] [address] [id number], [place] [address] 06[address] Dec, [facility] [place] [facility] [address] [id number] [place] [address]- 2546 Dec, [facility] [place] [facility] [address] [id number] [place] [address] 28 Dec, 2012 [facility] [address] [id number] [place] [address] 2546 27 Dec, 2012 [facility] [place] [facility] [address] [id number] [place] [address] 2546 26 Dec, 2012 [facility] [address] [id number] [place] [address]- 0916 25 Dec, 2012 [facility] [place] [facility] [address] [id number] [place] [address] 254 22 Dec, 2012 [facility] [address] [id number] [place] [address]- 1546 15 Dec, 2012 [facility] [place] [facility] [address] [id number] [place] [address]- 0800 14 Dec, 2012 [facility] [place] [facility] [address] [id number] [place] [address]- 4620 31 Oct, 2012 [facility] [address] [id number] [place] [address]- 7683 14 Oct, 2012 [facility] [place] [facility] [address] [id number] [place] [address]- 1014 09 Oct, 2012 [facility] [address] [id number] [place] [address]- 7706 03 Oct, 2012 [facility] [place] [facility] [address] [id number] [place] [address] 6404 Sep, [facility] [place] [facility] [address] [id number] [place] [address] 2546 Sep, [facility] [place] [facility] [address] [id number] [place] [address] 2546 Sep, [facility] [place] [facility] [address] [id number] [place] [address] 2546 Sep, [facility] [place] [facility] [address] [id number] [place] [address] 287[address] Sep, [facility] [place] [facility] [address] [id number] [place] [address]- 0178 Sep, [facility] [place] [facility] [address] [id number] [place] [address]- 6576 Aug, [facility] [place] [facility] [address] [facility] [id number] [place] [address]- 7470 Aug, [facility] [place] [facility] [address] [id number] [place] [address]- 1085 Aug, [facility] [place] [facility] [address] [id number] [place] [address]- 4232 Aug, [facility] [place] [facility] [address] [id number] [place] [address], [place] [address]- [address]26 Aug, [facility] [place] [facility] [address] [facility] [id number] [place] [address]- 6784 Aug, [facility] [place] [facility] [address] [id number], [place] [address] Jul, [facility] [place] [facility] [address] [id number] [place] [address]- 5071 Jul, [facility] [place] [facility] [address] [facility] [id number], [place] [address] 5937 Jul, [facility] [place] [facility] [address] [id number], [place] [address] 5847 Jul, [facility] [place] [facility] [address] [id number], [place] [address] 8109 Jul, [facility] [place] [facility] [address] [id number], [place] [address] 7715 Jul, [facility] [place] [facility] [address] [facility] [id number], [place] [address]- 7312 Jul, [facility] [place] [facility] [address] [facility] [id number], [place] [address]- 8124 Jul, [facility] [place] [facility] [address] [id number] [place] [address]- 3817 20 Jul, 2012 [facility] [place] [facility] [address] [id number] [place] [address]- 5736 Jul, [facility] [place] [facility] [address] [id number] [place] [address] 2546 Jul, [facility] [place] [facility] [address] [id number] [place] [address] 2546 May, [facility] [place] [facility] [address] [id number] [place] [address] 2546 May, [facility] [place] [facility] [address] [id number] [place] [address]- 0327 May, [facility] [place] [facility] [address] [id number] [place] [address]- 9477 May, [facility] [place] [facility] [address] [id number] [place] [address]- 9308 Apr, [facility] [place] [facility] [address] [id number] [place] [address]- 9070 Apr, [facility] [place] [facility] [address] [id number] [place] [address]- 7809 Apr, [facility] [place] [facility] [address] [id number] [place] [address]- 1697 Apr, [facility] [place] [facility] [address] [id number] [place] [address] 2546 Apr, [facility] [place] [facility] [address] [id number] [place] [address]- 2542 Apr, [facility] [place] [facility] [address] [id number] [place] [address] 2546 Apr, [facility] [place] [facility] [address] [id number] [place] [address]- 2546 Apr, [facility] [place] [facility] [address] [id number] [place] [address]- 6416 Mar, [facility] [place] [facility] [address] [id number] [place] [address]- 5230 27 Mar, 2012 [facility] [place] [facility] [address] [id number] [place] [address]- 9104 20 Mar, 2012 [facility] [place] [facility] [address] [id number] [place] [address]- 5581 15 Mar, 2012 [facility] [place] [facility] [address] [id number] [place] [address]- 6120 14 Mar, 2012 [facility] [place] [facility] [address] [id number] [place] [address]- 9789 12 Mar, 2012 [facility] [place] [facility] [address] [id number] [place] [address]- 5716 Mar, [facility] [place] [facility] [address] [id number] [place] [address]- 3622 Mar, [facility] [place] [facility] [address] [id number] [place] [address]- 9639 Mar, [facility] [place] [facility] [address] [id number] [place] [address]- 8532 February, [facility] [place] [facility] [address] [id number] [place] [address]- 4229 February, [facility] [place] [facility] [address] [id number] [place] [address]- 8869 February, [facility] [place] [facility] [address] [id number] [place] [address]- 0265 February, [facility] [place] [facility] [address] [id number] [place] [address]- 7486 Jan, [facility] [place] [facility] [address] [id number] [place] [address]- 3502 03 Jan, 2012 [facility] [place] [facility] [address] [id number] [place] [address]- 2009 Dec, [facility] [place] [facility] [address] [id number] [place] [address]- 8777 15 Dec, 2011 [facility] [address] [id number] [place] [address]- 1396 14 Dec, 2011 [facility] [place] [facility] [address] [id number] [place] [address]- 7766 07 Dec, 2011 [facility] [place] [facility] [address] [id number] [place] [address]- 6636 28 Dec, 2011 [facility] [place] [facility] [address] [id number] [place] [address]- 9055 27 Dec, 2011 [facility] [place] [facility] [address] [id number] [place] [address]- 5006 Dec, [facility] [place] [facility] [address] [id number] [place] [address]- 5726 Dec, [facility] [address] [facility] [id number] [place] [address]- 8364 07 Dec, 2011 [facility] [place] [facility] [address] [id number] [place] [address]- 7075 07 Dec, 2011 [facility] [place] [facility] [address] [id number] [place] [address]- 7651 07 Dec, 2011 [facility] [place] [facility] [address] [facility] [id number] [place] [address]- 4189 Dec, [facility] [place] [facility] [address] [facility] [id number] [place] [address]- 3051 Oct, [facility] [place] [facility] [address] [id number] [place] [address]- 5287 Oct, [facility] [place] [facility] [address] [id number] [place] [address]- 9460 Oct, [facility] [place] [facility] [address] [id number] [place] [address]- 6756 Oct, [facility] [place] [facility] [address] [facility] [id number] [place] [address]- 4862 Oct, [facility] [place] [facility] [address] [id number] [place] [address]- 6506 Oct, [facility] [address] [id number] [place] [address]- 6866 Oct, [facility] [place] [facility] [address] [id number] [place] [address]- 2350 Oct, [facility] [address] [id number] [place] [address]- 6933 Sep, [facility] [address] [id number] [place] [address]- 3082 Sep, [facility] [address] [id number] [place] [address]- 5120 Sep, [facility] [address] [id number] [place] [address]- 0591 Aug, [facility] [address] [id number] [place] [address]- 7050 Aug, [facility] [place] [facility] [address] [id number] [place] [address]- 8094 Aug, [facility] [address] [id number] [place] [address]- 4770 Aug, [facility] [place] [facility] [address] [id number] [place] [address]- 1441 Aug, [facility] [place] [facility] [address] [id number], [place] [address]- 1080 Jul, [facility] [place] [facility] [address] [id number] [place] [address]- 9959 Jul, [facility] [place] [facility] [address] [id number] [place] [address]- 6524 May, [facility] [place] [facility] [address] [id number], [place] [address]- 7037 Dec, [facility] [place] [facility] [address] [id number], [place] [address]- 0026 Oct, [facility] [address] [facility] [id number] [place] [address]- 5616 Sep, [facility] [address] [facility] [id number], [place] [address]- 0836 Sep, [facility] [address] [facility] [id number], [place] [address]- 4090 Sep, IMMUNIZATIONS No Known Immunizations SOCIAL HISTORY Never Assessed REASON FOR VISIT Hospital admit/DC PLAN OF CARE VITAL SIGNS MEDICATIONS Medication Instructions Dosage Frequency Start Date End Date Duration Status Gabapentin 100 mg Orally twice a day as needed for anxiety 2 capsules Jul, 30 days Active Protonix 40 mg Orally Once a day 1 tablet 24h Active Probiotic - Active Mirtazapine 15 MG Orally Once a day 1 tablet at bedtime 24h Active Estradiol 0.5 MG 1 tablet Active PreserVision AREDS - Active Insulin Detemir 100 UNIT/ML Subcutaneous twice a day 30 units 12h Sep, Active Acetaminophen 500 MG Orally every 6 hrs 2 tablets as needed 6h Active BD Insulin Syringe 30G X 1/2 subcutaneously 4 times a day use with insulin 6h May, Active NovoLog Flexpen 100 UNIT/ML Subcutaneous 3 times a day 12 u 8h Sep, Active Lisinopril 10 mg Orally Once a day 1 tablet 24h 30 Active Osteo Bi-Flex Regular Strength 250-200 MG Orally Once a day 1 tablet with a meal 24h Active Tramadol HCl 50 mg Orally 3 times a day 1 tablet as needed 8h Active Multivitamin Adult - Orally, bubble pack for detention Once a day 1 tablet 24h Active Wellbutrin XL 150 MG Orally Once a day 3 in the morning 24h 30 days Active Escitalopram Oxalate 20 MG Orally Once a day 1 tablet 24h 30 days Active RESULTS No Results PROCEDURES [...] veinous reflux [facility] Colonoscopy- Dr Castanon 01/26/2017 Hospitalization History surgeries Hospitalization History Left Knee SOA--Dr. Melendrez--[facility] Hospitalization History Septic shock, UTI-[facility] 07/27/17 Hospitalization History Multiple falls, hyperglycemia, sepsis 07/2017 Hospitalization History Alcoholism, depression, DM, Falls-[facility] 08/23/17 Hospitalization History COPD exacerbation-[facility] 11/25/17 Hospitalization History COPD exacerbation-[facility] 11/28/17
--- OUTSIDE RECORDS SUMMARY | 2018-05-10 03:26 | XMS REPORT ---
Author Author ABEL MELENDEZ [facility] Address [address] [place] [address] Care Team Providers Care Constitutional Law Professor Name Role Phone ABEL MELENDEZ Unavailable PROBLEMS Type Condition ICD9-CM Code [id number] Code Onset Dates Condition Status SNOMED Code Problem Generalized anxiety disorder F41.1 Active 90626609 Problem Diabetes E11.9 Active 95131846 Problem Psoriasis L40.9 Active 8559911 Problem Tobacco abuse Z72.0 Active 41321013 Problem 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 I10 Active 62951866 Problem Back pain M54.9 Active 340597379 Problem Arthritis M19.90 Active 4680515 Problem retirement 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 Active 612626689 Problem Psoriatic arthritis L40.50 Active 043964895 Problem Psychophysiological insomnia F51.04 Active 31034468 Problem Other specified 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 Active 984515100 Problem Obesity (BMI 30-39.9) E66.9 Active 125663555 Problem Major depressive disorder, recurrent, moderate F33.1 Active 45685415 Problem Essential hypertension I10 Active 75378504 Problem Type 2 diabetes mellitus with hyperglycemia E11.65 Active 007053334331887 Problem Alcoholism F10.20 Active 4196573 Problem Frequent falls R29.6 Active 551071583 Problem Benzodiazepine abuse F13.10 Active 637480938 Problem PTSD (post-traumatic stress disorder) F43.10 Active 70131943 Problem Eating disorder F50.9 Active 65643086 Problem Attention-deficit hyperactivity disorder, combined type F90.2 Active 30103025 Problem COPD exacerbation J44.1 Active 170989714 Problem Anxiety F41.9 Active 32307110 Problem Decubitus ulcer of left buttock, stage 2 L89.322 Active 670445745 Problem BMI 40.0-44.9, adult Z68.41 Active 590760595 Problem Alcohol abuse F10.10 Active 46196522 Problem Pneumonia due to methicillin resistant Staphylococcus aureus, unspecified laterality, unspecified part of lung J15.212 Active 058276205908538 Problem Type 2 diabetes mellitus with unspecified complications E11.8 Active 64929588 Problem Attention-deficit hyperactivity disorder, predominantly hyperactive type F90.1 Active 507343349 Problem Type 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 Active 83068446 Problem Ulcer of right foot, unspecified ulcer stage L97.519 Active 50781317 Problem Attention deficit R41.840 Active 03122959 Problem Mental disorder, not otherwise specified F99 Active 87112071 Problem Insomnia due to other mental disorder F51.05 Active 77982219 ALLERGIES No Information ENCOUNTERS Encounter Location Date Diagnosis [facility] [address] [address] Mar, [facility] [id number] [address] 16389- 3832 Mar, [facility] [id number] [address] 10449- 5559 February, Yeast infection B37.9 [facility] [id number] [address] 85836- 2292 February, [facility] [id number] [address] 67462- 5981 Jan, [facility] [id number] [address] 10123- 1650 Dec, Major depressive disorder, recurrent episode, unspecified severity F33.9 ; Generalized anxiety disorder F41.1 and Eating disorder F50.9 [facility] [address], [place] [address] Dec, [facility] [id number] [address] 34397- 3075 Dec, [facility] [id number] [address] 02441- 4847 Dec, [facility] [id number] [address] 60807- 3698 Dec, Increased urinary frequency R35.0 ; Frequent falls R29.6 ; Decubitus ulcer of left buttock, stage 2 L89.322 ; Benzodiazepine abuse F13.10 ; BMI 40.0-44.9, adult Z68.41 and Yeast infection B37.9 [facility] [address], [place] [address] Dec, [facility] [id number] [address] 95532- 3232 Dec, [facility] [id number] [address] 53466- 6550 Dec, Increased urinary frequency R35.0 [facility] [id number] [address] 54964- 1981 Dec, Increased urinary frequency R35.0 [facility] [id number] [address] 82366- 8278 Dec, Generalized anxiety disorder F41.1 ; Major depressive disorder, recurrent, moderate F33.1 and Psychophysiological insomnia F51.04 [facility] [address] [place] [address] 91809- 4711 Dec, BMI 40.0-44.9, adult Z68.41 ; Type 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 ; Pneumonia due to methicillin resistant Staphylococcus aureus, unspecified laterality, unspecified part of lung J15.212 and COPD exacerbation J44.1 [facility] [address], [place] [address] Dec, [facility] [id number] [address] [id number] Dec, [facility] [id number] [address] [id number] Oct, [facility] [address], [place] [address] Oct, Frequency of urination R35.0 ; Bronchitis J40 and BMI 40.0- 44.9, adult Z68.41 [facility] [address] [id number] Oct, [facility] [id number] [address] 88817- 0255 Oct, [facility] [id number] [address] 27530- 2841 Oct, BMI 40.0-44.9, adult Z68.41 ; Type 2 diabetes mellitus with hyperglycemia E11.65 ; Essential hypertension I10 ; Vaginal yeast infection B37.3 ; Anxiety F41.9 and Alcoholism F10.20 [facility] [id number] [place] [address] 55882- 7452 Oct, [facility] [id number] [address] 15554- 6341 Oct, [facility] [id number] [address] 11132- 2291 Sep, [facility] [id number] [address] 99811- 8998 Sep, Major depressive disorder, recurrent episode, unspecified severity F33.9 ; Generalized anxiety disorder F41.1 and Eating disorder F50.9 [facility] [address], [place] [address] 48[address] Sep, Major depressive disorder, recurrent, moderate F33.1 ; Type 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 ; Alcohol abuse F10.10 ; Obesity (BMI 30-39.9) E66.9 and Psychophysiological insomnia F51.04 [facility] [address] [place] [address] 61191- 6145 06 Sep, 2017 Diabetes E11.9 and Generalized anxiety disorder F41.1 [facility] [address] [place] [address] 24038- 5112 05 Sep, 2017 Major depressive disorder, recurrent episode, unspecified severity F33.9 ; Generalized anxiety disorder F41.1 and Eating disorder F50.9 [place] [id number] [address] 20[address] Sep, [facility] [id number] [address] 77135- 5123 Aug, [facility] [address] [address] 52461- 6920 Aug, Insomnia due to other mental disorder F51.05 ; Mental disorder, not otherwise specified F99 ; Attention deficit R41.840 ; Ulcer of right foot, unspecified ulcer stage L97.519 ; Cough R05 ; Diabetes E11.9 ; Sore in mouth K13.79 ; Generalized anxiety disorder F41.1 ; Major depressive disorder , recurrent episode, unspecified severity F33.9 and BMI 40.0-44.9, adult Z68.41 [facility] [address] [place] [address] 41515- 8941 Aug, [facility] [id number] [address] 21962- 2801 Aug, [facility] [id number] [address] 43378- 1618 Aug, [facility] [id number] [address] 76483- 6527 Aug, [facility] [address] [place] [address] 94586- 2654 Aug, Diabetes E11.9 [facility] [employer] [address] [place] [id number] Aug, Falling R29.6 ; Alcohol abuse F10.10 ; Major depressive disorder, recurrent episode, unspecified severity F33.9 ; 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 I10 ; Type 2 diabetes mellitus with unspecified complications E11.8 and [employer] 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 [facility] [id number] [address] [id number] 13 Aug, 2017 [address] [employer] [address] [place] [id number] Aug, Alcohol abuse F10.10 ; Major depressive disorder, recurrent episode, unspecified severity F33.9 ; Generalized anxiety disorder F41.1 ; retirement 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 ; Psoriatic arthritis L40.50 and Diabetes E11.9 [facility] [id number] [address] [id number] Aug, [facility] [id number] [id number] Jul, [facility] [address] [place] [address] 41622- 3668 Jul, [facility] [address] [place] [address] 74947- 0946 Jul, Generalized anxiety disorder F41.1 [facility] [address] [address] 97951- 9487 Jul, [facility] [id number] [address] 82055- 7790 Jul, [facility] [id number] [address] 07119- 1119 Jul, Generalized anxiety disorder F41.1 ; Major depressive disorder, recurrent episode, unspecified severity F33.9 ; PTSD (post-traumatic stress disorder) F43.10 ; Eating disorder F50.9 and Attention-deficit hyperactivity disorder, predominantly hyperactive type F90.1 [facility] [address], [place] [address]- 7657 Jul, [facility] [address], [place] [address]- 2281 Jul, [facility] [address], [place] [address]- 1567 Jul, retirement 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 ; Type 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 ; Urinary tract infection, site not specified N39.0 ; Sepsis, unspecified organism A41.9 and Essential hypertension I10 [facility] [id number] [id number] Jul, [facility] [address], [place] [address] 27 Jul, 2017 [facility] [id number] [address] 35906- 3543 Jul, Generalized anxiety disorder F41.1 [facility] [id number] [address] 84275- 5875 15 Jul, 2017 [facility] [id number] [place] [address] 10091- 9221 Jul, Generalized anxiety disorder F41.1 [facility] [id number] [place] [address] 14673- 6638 May, Generalized anxiety disorder F41.1 ; Major depressive disorder, recurrent episode, unspecified severity F33.9 ; PTSD (post-traumatic stress disorder) F43.10 ; Eating disorder F50.9 and Attention-deficit hyperactivity disorder, predominantly hyperactive type F90.1 [facility] [id number] [address] 50979- 8008 May, Diabetes E11.9 [facility] [id number] [place] [address] 95609 -3503 May, Acute non-recurrent maxillary sinusitis J01.00 and Diabetes E11.9 [facility] [address], [place] [address]- 2251 May, [facility] [id number] [address] 60957- 2348 May, [facility] [address] [place] [address] 39500- 4030 May, Generalized anxiety disorder F41.1 [facility] [id number] [place] [address] 41515- 2754 Apr, [facility] [address], [place] [address]- 6633 Apr, [facility] [id number] [address] 28379- 7274 Apr, [facility] [address] [place] [address] 22806- 0674 Apr, Generalized anxiety disorder F41.1 ; Major depressive disorder, recurrent episode, unspecified severity F33.9 ; PTSD (post-traumatic stress disorder) F43.10 ; Eating disorder F50.9 and Attention-deficit hyperactivity disorder, predominantly hyperactive type F90.1 [place] [id number] [place] [address] 03523- 1406 Apr, Major depressive disorder, recurrent, moderate F33.1 [place] [id number] [place] [address] 99191- 6965 Mar, Diabetes E11.9 [facility] [id number] [address] 15994- 9326 Mar, Attention-deficit hyperactivity disorder, combined type F90.2 [place] [id number] [place] [address] 07219- 1832 Mar, [facility] [id number] [place] [address] 57237- 3186 Mar, Diabetes E11.9 [place] [id number] [place] [address] 46209- 7103 Mar, retirement 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 ; Psoriatic arthritis L40.50 ; Other specified 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 and 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 I10 [facility] [place] [id number] [place] [address] 54253- 6078 February, Back pain M54.9 [place] [id number] [address] 50187- 7306 February, Attention-deficit hyperactivity disorder, combined type F90.2 [facility] [id number] [place] [address] 63041- 2726 February, Major depressive disorder, recurrent episode, unspecified severity F33.9 and Generalized anxiety disorder F41.1 [place] [id number] [place] [address] 35102- 4095 Jan, Attention-deficit hyperactivity disorder, combined type F90.2 [facility] [id number] [place] [address] 27775- 8925 Jan, Major depressive disorder, recurrent, moderate F33.1 ; Generalized anxiety disorder F41.1 and Attention-deficit hyperactivity disorder , combined type F90.2 [facility] [id number] [place] [address] 55179- 2755 Dec, Major depressive disorder, recurrent episode, unspecified severity F33.9 ; Generalized anxiety disorder F41.1 and Attention-deficit hyperactivity disorder, predominantly hyperactive type F90.1 [facility] [id number] [address] 01399- 5779 Dec, Major depressive disorder, recurrent episode, unspecified severity F33.9 and Generalized anxiety disorder F41.1 [facility] [id number] [place] [address] 61951- 0729 Dec, [facility] [id number] [place] [address] 17741- 5026 Dec, [facility] [id number] [address] 79740- 3756 Dec, Major depressive disorder, recurrent episode, unspecified severity F33.9 and Generalized anxiety disorder F41.1 [facility] [address] [address] 44345- 5810 Dec, Back pain M54.9 [facility] [address] [address] 37474- 8514 Dec, Eustachian tube dysfunction, right H69.81 and Arthritis M19.90 [facility] [address] [place] [address] 44259- 6682 Dec, [facility] [id number] [address] 00756- 9637 Dec, [facility] [address] [place] [address]- 6113 07 Dec, 2016 Major depressive disorder, recurrent episode, unspecified severity F33.9 [facility] [id number] [address] 59123- 6631 Oct, [facility] [id number] [place] [address] 70937 -0044 Oct, Acute non-recurrent pansinusitis J01.40 and Sore throat J02.9 [facility] [address] [place] [address] 56084- 1111 Oct, Major depressive disorder, recurrent episode, unspecified severity F33.9 [facility] [id number] [address] 44533- 1351 Oct, Major depressive disorder, recurrent episode, unspecified severity F33.9 and Generalized anxiety disorder F41.1 [facility] [id number] [place] [address] 81928- 8595 Sep, [facility] [id number] [address] 38088- 4551 Sep, Major depressive disorder, recurrent episode, unspecified severity F33.9 [facility] [address] [address] 45131- 4639 Sep, Major depressive disorder, recurrent episode, unspecified severity F33.9 [facility] [address] [place] [address] 44320 -4500 Sep, Sore throat J02.9 [facility] [address] [place] [address] 96753- 8500 15 Sep, 2016 Generalized anxiety disorder F41.1 ; Major depressive disorder, recurrent episode, unspecified severity F33.9 and Attention-deficit hyperactivity disorder, predominantly hyperactive type F90.1 [facility] [address] [place] [address] 47521- 0784 08 Sep, 2016 Major depressive disorder, recurrent episode, unspecified severity F33.9 and Generalized anxiety disorder F41.1 [facility] [id number] [place] [address] 64493- 0297 07 Sep, 2016 Psoriatic arthritis L40.50 [facility] [id number] [place] [address] 87947- 1164 02 Sep, 2016 Diabetes E11.9 ; retirement 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 ; Back pain M54.9 and Encounter for immunization Z23 [facility] [id number] [place] [address] 87982- 2661 Aug, [facility] [id number] [address] 78305- 3915 Aug, [facility] [address] [place] [address] 02815- 5689 Jul, Major depressive disorder, recurrent episode, unspecified severity F33.9 ; Attention-deficit hyperactivity disorder, predominantly hyperactive type F90.1 and Generalized anxiety disorder F41.1 [facility] [id number] [place] [address] 42468- 2975 Jul, [facility] [id number] [place] [address] 35545- 9396 22 Jul, 2016 Major depressive disorder, recurrent, in partial remission F33.41 and Generalized anxiety disorder F41.1 [facility] [id number] [place] [address] 02588- 7313 Jul, [facility] [id number] [address] 71801- 6492 19 Jul, 2016 [facility] [id number] [address] 56755- 4606 13 Jul, 2016 [facility] [id number] [address] 55997- 0713 Jul, [facility] [address] [address] 68209- 7221 12 Jul, 2016 Diabetes E11.9 [facility] [id number] [place] [address] 99907- 2529 May, [facility] [address], [place] [address]- 1507 May, [facility] [id number] [address] 97085- 0088 May, [facility] [id number] [place] [address] 65785- 3570 May, Major depressive disorder, recurrent episode, unspecified severity F33.9 ; Generalized anxiety disorder F41.1 and Attention-deficit hyperactivity disorder, predominantly hyperactive type F90.1 [facility] [id number] [address] 49605- 4156 May, [facility] [id number] [address] 43004- 4121 May, Diabetes E11.9 [facility] [id number] [address] 03197- 0492 May, [facility] [id number] [place] [address] 84467- 6648 May, [facility] [address] [facility] [address] [place] [id number] May, Diabetes E11.9 ; Generalized anxiety disorder F41.1 and Nausea R11.0 [facility] [address] [place] [address] 21551- 2036 May, Psoriatic arthritis L40.50 and Candidiasis of female genitalia B37.3 [facility] [address] [address]- 1172 May, [facility] [address] [address] 39667- 6904 Apr, [facility] [id number] [place] [address] 68207- 1991 Apr, [facility] [address] [place] [address] 38703- 3679 Apr, [facility] [address] [address]- 5217 Apr, Generalized anxiety disorder F41.1 ; Major depressive disorder, recurrent episode, unspecified severity F33.9 and Attention-deficit hyperactivity disorder, predominantly hyperactive type F90.1 [facility] [address], [place] [address]- 4642 Apr, [facility] [id number] [address] 40195- 9042 Apr, [facility] [id number] [address] 06109- 0136 Apr, [facility] [id number] [address] 91794- 6615 Apr, [facility] [id number] [address] 24503- 7611 Apr, [facility] [id number] [place] [address]8851- 5814 Mar, Attention-deficit hyperactivity disorder, predominantly hyperactive type F90.1 [facility] [id number] [place] [address] [phone] Mar, [facility] [id number] [place] [address] 19307- [id number] Mar, [facility] [id number] [address] Mar, Major depressive disorder, recurrent episode, unspecified severity F33.9 and Generalized anxiety disorder F41.1 [facility] [id number] [place] [address] 49506- 2974 February, Diabetes E11.9 [facility] [id number] [address] February, OME (otitis media with effusion), bilateral H65.93 [facility] [id number] [place] [address] 77465- 1125 February, Back pain M54.9 [facility] [address], [place] [address] February, [facility] [id number] [address] 26616- 6187 February, Nausea R11.0 [facility] [id number] [place] [address] 17672- 8618 February, [facility] [id number] [place] [address] 93090- 2400 February, Pre-op evaluation Z01.818 ; Type 2 diabetes mellitus with hyperglycemia E11.65 and retirement 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 [facility] [id number] [place] [address] 92997- 2107 February, [facility] [id number] [place] [address] 48326 -1814 February, Right otitis externa H60.91 [facility] [id number] [place] [address] 41544- 8029 Jan, [facility] [id number] [place] [address] 72841- 2934 Jan, Psoriatic arthritis L40.50 and Arthralgia, unspecified joint M25.50 [facility] [address] [address] Jan, Major depressive disorder, recurrent episode, unspecified severity F33.9 ; Generalized anxiety disorder F41.1 and Attention-deficit hyperactivity disorder, unspecified type F90.9 [facility] [address] [address]- 9050 Jan, [facility] [id number] [address] 41165- 6904 Jan, [facility] [id number] [address] 61245- 0013 Jan, Major depressive disorder, recurrent episode, unspecified severity F33.9 and Generalized anxiety disorder F41.1 [facility] [address], [place] [address] 8149 Jan, [facility] [id number] [address] 22801- 2129 Dec, 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 I10 and Arthritis M19.90 [facility] [id number] [address] 73924- 1437 Dec, [facility] [id number] [address] 87100- 0458 Dec, [facility] [id number] [address] 65245- 4198 Dec, [facility] [id number] [address] 62818- 7667 Dec, [facility] [id number] [address] 53873- 2879 Dec, [facility] [id number] [address] 63384- 6811 Dec, Major depressive disorder, recurrent episode, unspecified severity F33.9 and Generalized anxiety disorder F41.1 [facility] [id number] [place] [address] 10137- 7373 Dec, Diabetes E11.9 ; Back pain M54.9 ; Thrush B37.0 and 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 I10 [facility] [id number] [place] [address] 54311- 6040 18 Dec, 2015 Major depressive disorder, recurrent episode, unspecified severity F33.9 and Generalized anxiety disorder F41.1 [facility] [id number] [place] [address] 11144- 9448 04 Dec, 2015 Major depressive disorder, recurrent episode, in partial or unspecified remission 296.35 ; Major depressive disorder, recurrent episode, unspecified severity F33.9 and Generalized anxiety disorder 300.02 [facility] [id number] [place] [address] 31210- 1517 Dec, [facility] [id number] [address] 63469- 8203 Oct, [facility] [id number] [address] 94282- 5557 Oct, [facility] [id number] [address] 20619- 8672 Oct, [facility] [id number] [address] 24499- 1212 Oct, [facility] [id number] [place] [address] 79967- 4268 Oct, Major depressive disorder, recurrent, moderate F33.1 and Attention-deficit hyperactivity disorder, unspecified type F90.9 [facility] [id number] [place] [address] 38602- 0081 Oct, retirement (current) use of opiate analgesic Z79.891 [facility] [id number] [place] [address] 71103- 4622 Oct, [facility] [id number] [address] 34707- 1656 Oct, [facility] [id number] [place] [address] 40357 -9014 Sep, URI (upper respiratory infection) J06.9 ; Psoriasis L40.9 ; Cough R05 and Tobacco abuse Z72.0 [facility] [id number] [place] [address] 11773- 3519 Sep, Major depressive disorder, recurrent episode, in partial or unspecified remission 296.35 ; Generalized anxiety disorder 300.02 and ADHD, 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 [facility] [id number] [place] [address] 15017 -4261 Sep, Acute sinusitis, unspecified J01.90 [facility] [id number] [place] [address] 99416- 0643 Sep, [facility] [address], [place] [address]- 6701 Sep, Major depressive disorder, recurrent, moderate F33.1 ; Generalized anxiety disorder F41.1 and Attention-deficit hyperactivity disorder , combined type F90.2 [facility] [id number] [address] 59456- 1850 Sep, [facility] [id number] [address] 75624- 9004 Aug, [facility] [id number] [address] 41373- 0340 Aug, [facility] [id number] [place] [address] 86888- 0532 Aug, Diabetes E11.9 and Anxiety F41.9 [facility] [id number] [place] [address] 99805- 7114 Aug, Major depressive disorder, recurrent episode, unspecified severity F33.9 and Generalized anxiety disorder F41.1 [facility] [id number] [place] [address] 14975- 4014 Aug, [facility] [id number] [place] [address] 68931- 3827 Jul, [facility] [id number] [address] 77805- 4738 Jul, [facility] [id number] [address] 22643- 8896 Jul, [facility] [id number] [address] 29814- 9278 Jul, [facility] [id number] [place] [address] 80531- 7027 Jul, Major depressive disorder, recurrent episode, in partial or unspecified remission 296.35 ; Generalized anxiety disorder 300.02 and ADHD, 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 [facility] [id number], [place] [address]- 5467 Jul, Major depressive disorder, recurrent episode, in partial or unspecified remission 296.35 ; Generalized anxiety disorder 300.02 and ADHD, 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 [facility] [id number] [place] [address] 21783- 7383 Jul, [facility] [id number] [address] 89815- 0287 May, [facility] [id number] [address] 36459- 2235 May, [facility] [id number] [place] [address] 26857- 5471 May, DM w/o complication type II 250.00 ; Dyspepsia 536.8 and PAD (peripheral artery disease) 443.9 [facility] [id number] [place] [address] 48939- 8370 May, Major depressive disorder, recurrent episode, moderate 296.32 and Generalized anxiety disorder 300.02 [facility] [id number] [place] [address] 94239- 3691 May, [facility] [id number] [place] [address] 34344- 3708 May, Major depressive disorder, recurrent episode, moderate 296.32 and Generalized anxiety disorder 300.02 [facility] [id number] [place] [address] 95807- 7927 May, [facility] [id number] [address] 76789- 8353 Apr, [facility] [id number] [place] [address] 04824- 6655 Apr, Major depressive disorder, recurrent episode, moderate 296.32 and Generalized anxiety disorder 300.02 [facility] [id number] [place] [address] 89668- 5426 Apr, [facility] [id number] [address]- 7608 Apr, [facility] [id number] [place] [address] 55012- 1161 Apr, Generalized anxiety disorder 300.02 ; ADHD, 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 and Depression, major, recurrent, moderate 296.32 [facility] [address], [place] [address]- 8936 Apr, Major depressive disorder, recurrent episode, moderate 296.32 and Generalized anxiety disorder 300.02 [facility] [address], [place] [address]- 4914 Apr, [facility] [id number] [place] [address] 85897- 9123 Apr, [facility] [id number] [address] 11764- 6918 Mar, [facility] [id number] [place] [address] 15648- 7267 Mar, Major depressive disorder, recurrent episode, moderate 296.32 and Generalized anxiety disorder 300.02 [facility] [id number] [place] [address] 56900- 1655 Mar, ADHD, 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 ; Major depressive disorder, recurrent episode, severe, without mention of psychotic behavior 296.33 and Generalized anxiety disorder 300.02 [facility] [address], [place] [address]- 0531 February, Major depressive disorder, recurrent episode, moderate 296.32 and Generalized anxiety disorder 300.02 [facility] [address], [place] [address]- 3303 February, [facility] [id number] [place] [address] 06607- 4901 February, [facility] [address], [place] [address]- 5307 February, [facility] [id number] [address]- 3215 February, [facility] [address] 3761 February, DM w/o complication type II 250.00 ; Impacted cerumen 380.4 ; Essential hypertension, benign 401.1 and Irritable colon 564.1 [facility] [id number] [place] [address] 74556- 9450 February, [facility] [address] [facility] [id number] [place] [address], [place] [address]- 7828 February, [facility] [id number] [place] [address], [place]- 0984 Jan, [facility] [id number] [place] [address]- 6191 Dec, [facility] [id number] [place] [address], [place] [address]- 9921 Dec, [facility] [address], [place] [address]- 6252 Dec, [facility] [address] [place] [address]- 1982 Dec, [facility] [address], [place] [address]- 9117 Dec, [facility] [address] [place] [address]- 6440 Dec, [facility] [id number], [place] [address]- 6324 Dec, [facility] [address] [place] [address]- 9930 Dec, [facility] [address] [place] [address]- 8656 Dec, [facility] [address], [place] [address]- 2816 Dec, [facility] [place] [facility] [address] [id number] [place] [address]- 6287 Dec, [facility] [place] [facility] [address] [id number] [place] [address]- 2206 Dec, [facility] [place] [facility] [address] [id number] [place] [address]- 1726 Dec, [facility] [place] [facility] [address] [id number] [place] [address]- 3536 Dec, [facility] [place] [facility] [address] [id number] [place] [address]- 6909 Dec, [facility] [place] [facility] [address] [id number] [place] [address]- 2946 Dec, [facility] [place] [facility] [address] [id number] [place] [address]- 5267 Oct, [facility] [place] [facility] [address] [id number] [address]- 0821 Oct, [facility] [place] [facility] [address] [id number] [place] [address]- 4416 Oct, [facility] [place] [facility] [address] [id number] [place] [address]- 7791 Oct, [facility] [place] [facility] [address] [id number], [place] [address]- 4338 Oct, [facility] [place] [facility] [address] [id number], [place] [address]- 7632 Oct, [facility] [place] [facility] [address] [id number] [place] [address]- 1066 Oct, [facility] [place] [facility] [address] [id number], [place] [address]- 8446 Oct, [facility] [place] [facility] [address] [id number] [place] [address]- 0066 Oct, [facility] [place] [facility] [address] [id number] [place] [address]- 2716 Oct, [facility] [place] [facility] [address] [id number] [place] 5545 Oct, [facility] [place] [facility] [address] [id number] [place] [address]- 3710 Sep, [facility] [place] [facility] [address] [id number] [place] [address]- 5707 Sep, [facility] [place] [facility] [address] [id number] [place] [address]- 8193 Sep, [facility] [place] [facility] [address] [id number] [place] [address]- 6171 Sep, [facility] [place] [facility] [address] [id number] [place] [address]- 3533 Sep, [facility] [place] [facility] [address] [id number] [place] [address]- 1605 Sep, [facility] [place] [facility] [address] [id number] [place] [address]- 4971 Sep, [facility] [place] [facility] [address] [id number] [place] [address]- 5945 Sep, [facility] [place] [facility] [address] [id number] [place] [address]- 2343 Aug, [facility] [place] [facility] [address] [id number] [place] [address]- 0031 Aug, [facility] [place] [facility] [address] [id number] [place] [address]- 1861 Aug, [facility] [place] [facility] [address] [id number] [place] [address]- 9191 Aug, [facility] [place] [facility] [address] [id number] [place] [address]- 8943 Aug, [facility] [place] [facility] [address] [id number] [place] [address]- 8449 Aug, [facility] [place] [facility] [address] [id number] [place] [address]- 4672 Aug, [facility] [place] [facility] [address] [id number] [place] [address]- 1074 Aug, [facility] [place] [facility] [address] [id number] [place] [address]- 0944 Aug, [facility] [place] [facility] [address] [id number] [place] [address]- 4320 Aug, [facility] [place] [facility] [address] [id number] [place] [address]- 4086 Aug, [facility] [place] [facility] [address] [id number] [place] [address]- 6150 Aug, [facility] [place] [facility] [address] [id number] [place] [address]- 3643 Aug, [facility] [place] [facility] [address] [id number] [place] [address]- 3370 Aug, [facility] [place] [facility] [address] [id number] [place] [address]- 3846 Jul, [facility] [place] [facility] [address] [id number] [place] [address]- 5931 Jul, [facility] [place] [facility] [address] [id number] [place] [address]- 6571 Jul, [facility] [place] [facility] [address] [id number], [place] [address]- 4908 Jul, [facility] [place] [facility] [address] [id number] [place] [address]- 1962 Jul, [facility] [place] [facility] [address] [id number] [place] [address]- 4502 Jul, [facility] [place] [facility] [address] [id number] [place] [address]- 3182 Jul, [facility] [place] [facility] [address] [id number], [place] [address]- 8818 Jul, [facility] [place] [facility] [address] [id number] [place] [address]- 7953 Jul, [facility] [place] [facility] [address] [id number] [place] [address]- 9167 Jul, [facility] [place] [facility] [address] [id number] [place] [address]- 0086 Jul, [facility] [place] [facility] [address] [id number] [place] [address]- 2147 Jul, [facility] [place] [facility] [address] [id number] [place] [address]- 0153 Jul, [facility] [place] [facility] [address] [id number] [place] [address]- 7115 Jul, [facility] [place] [facility] [address] [id number] [place] [address]- 4996 May, [facility] [place] [facility] [address] [id number] [place] [address]- 6363 May, [facility] [place] [facility] [address] [id number] [place] [address]- 1880 May, [facility] [place] [facility] [address] [id number] [place] [address]- 2803 May, [facility] [place] [facility] [address] [id number] [place] [address]- 8374 May, [facility] [place] [facility] [address] [id number] [place] [address]- 4039 May, [facility] [place] [facility] [address] [id number] [place] [address]- 9042 May, [facility] [place] [facility] [address] [id number] [place] [address]- 6599 May, [facility] [place] [facility] [address] [id number] [place] [address]- 6104 May, [facility] [place] [facility] [address] [id number] [place] [address]- 7945 May, [facility] [place] [facility] [address] [id number] [place] [address]- 0336 May, [facility] [place] [facility] [address] [id number] [place] [address]- 6846 May, [facility] [place] [facility] [address] [id number] [place] [address]- 3059 Apr, [facility] [place] [facility] [address] [id number] [place] [address]- 7759 Apr, [facility] [place] [facility] [address] [id number] [place] [address]- 8734 Apr, [facility] [place] [facility] [address] [id number] [place] [address]- 9629 Apr, [facility] [place] [facility] [address] [id number] [place] [address]- 3162 Apr, [facility] [place] [facility] [address] [id number] [place] [address]- 1924 Apr, [facility] [place] [facility] [address] [id number] [place] [address]- 0281 Mar, [facility] [place] [facility] [address] [id number] [place] [address]- 2810 Mar, [facility] [place] [facility] [address] [id number] [place] [address]- 8204 Mar, [facility] [place] [facility] [address] [id number] [place] [address]- 9220 Mar, [facility] [place] [facility] [address] [id number] [place] [address]- 7733 Mar, [facility] [place] [facility] [address] [id number] [place] [address]- 9211 Mar, [facility] [place] [facility] [address] [id number] [place] [address]- 9780 Mar, [facility] [place] [facility] [address] [id number] [place] [address] Mar, [facility] [place] [facility] [address] [id number] [place] [address] Mar, [facility] [place] [facility] [address] [id number] [place] [address] Mar, [facility] [place] [facility] [address] [id number] [place] [address] Mar, [facility] [place] [facility] [address] [id number] [place] [address] Mar, [facility] [place] [facility] [address] [id number] [place] [address] Mar, [facility] [place] [facility] [address] [id number] [place] [address] February, [facility] [place] [facility] [address] [id number] [place] [address] February, [facility] [place] [facility] [address] [id number] [place] [address] February, [facility] [place] [facility] [address] [id number] [place] [address]- [address] February, [facility] [place] [facility] [address] [id number] [place] [address] February, [facility] [place] [facility] [address] [id number] [place] [address] February, [facility] [place] [facility] [address] [id number] [place] [address] February, [facility] [place] [facility] [address] [id number] [place] [address]- [address] February, [facility] [place] [facility] [address] [id number] [place] [address]- [address] February, [facility] [place] [facility] [address] [id number] [place] [address] February, [facility] [address] [id number] [place] [address] February, [facility] [place] [facility] [address] [id number] [place] [address] February, [facility] [place] [facility] [address] [id number] [place] [address] February, [facility] [place] [facility] [address] [id number] [place] [address] February, [facility] [place] [facility] [address] [id number] [place] [address] Jan, [facility] [place] [facility] [address] [id number] [place] [address] Jan, [facility] [place] [facility] [address] [id number] [place] [address] Jan, [facility] [place] [facility] [address] [id number] [place] [address] Jan, [facility] [place] [facility] [address] [id number] [place] [address] Jan, [facility] [place] [facility] [address] [id number] [place] [address]- [address] Jan, [facility] [place] [facility] [address] [id number] [place] [address]- [address] Jan, [facility] [place] [facility] [address] [id number] [place] [address]- [address] Jan, [facility] [place] [facility] [address] [id number] [place] [address] Jan, [facility] [place] [facility] [address] [id number] [place] [address] Dec, [facility] [place] [facility] [address] [id number] [place] [address]- [address] Dec, [facility] [place] [facility] [address] [id number] [place] [address]- [address] Dec, [facility] [place] [facility] [address] [id number] [place] [address]- [address] Dec, [facility] [place] [facility] [address] [id number] [place] [address] Dec, [facility] [place] [facility] [address] [id number] [place] [address]- [address] Dec, [facility] [place] [facility] [address] [id number] [place] [address] Dec, [facility] [place] [facility] [address] [id number] [place] [address]- [address] Dec, [facility] [place] [facility] [address] [facility] [id number] [place] [address] Dec, [facility] [place] [facility] [address] [id number] [place] [address] Dec, [facility] [place] [facility] [address] [id number] [place] [address]- [address] 14 Dec, 2013 [facility] [place] [facility] [address] [id number] [place] [address] Dec, [facility] [place] [facility] [address] [facility] [id number] [place] [address] Dec, [facility] [place] [facility] [address] [id number] [address] 10 Dec, 2013 [facility] [place] [facility] [address] [id number] [place] [address] Dec, [facility] [place] [facility] [address] [id number] [place] [address]- [address] 06 Dec, 2013 [facility] [place] [facility] [address] [id number] [place] [address]- [address] 06 Dec, 2013 [facility] [facility] [address] [id number], [place] [address] Oct, [facility] [address] [id number] [place] [address] Oct, [facility] [place] [facility] [address] [id number] [place] [address] Oct, [facility] [place] [facility] [address] [id number] [place] [address] 9730 Oct, [facility] [place] [facility] [address] [id number] [place] [address] 3771 Oct, [facility] [place] [facility] [address] [id number] [place] [address] 1747 Oct, [facility] [place] [facility] [address] [id number] [place] [address]- 9535 Oct, [facility] [address] [id number] [place] [address] 5943 Oct, [facility] [place] [facility] [address] [id number] [place] [address]- 0351 Oct, [facility] [place] [facility] [address] [id number] [place] [address]- 6095 Oct, [facility] [place] [facility] [address] [id number] [place] [address]- 6524 Oct, [facility] [place] [facility] [address] [id number] [place] [address]32 Oct, [facility] [place] [facility] [address] [id number], [place] [address] Oct, [facility] [place] [facility] [address] [id number] [place] [address]- 4247 Oct, [facility] [place] [facility] [address] [id number] [place] [address]- 8189 Sep, [facility] [place] [facility] [address] [id number] [place] [address]- 0065 Sep, [facility] [place] [facility] [address] [id number] [place] [address]- 3666 30 Sep, 2013 [facility] [place] [facility] [address] [id number] [place] [address]- 0236 30 Sep, 2013 [facility] [place] [facility] [address] [id number] [place] [address]- 5766 Sep, [facility] [place] [facility] [address] [id number] [place] [address]- 9806 Sep, [facility] [place] [facility] [address] [id number] [place] [address]- 5377 Sep, [facility] [place] [facility] [address] [id number] [place] [address]- 6636 Sep, [facility] [place] [address] [id number] [place] [address]- 6451 Sep, [facility] [place] [address] [id number] [place] [address]- 5238 Sep, [facility] [place] [facility] [address] [id number] [place] [address]- 7483 16 Sep, 2013 [facility] [place] [address] [id number] [place] [address]- 9059 16 Sep, 2013 [facility] [place] [address] [id number] [place] [address]- 5355 13 Sep, 2013 [facility] [place] [address] [id number] [place] [address]- 9156 13 Sep, 2013 [facility] [place] [address] [id number] [place] [address] 2546 10 Sep, 2013 [facility] [place] [facility] [address] [id number] [place] [address]- 8556 10 Sep, 2013 [facility] [place] [facility] [address] [id number] [place] [address]- 5046 02 Sep, 2013 [facility] [place] [address] [id number] [place] [address] 1212 02 Sep, 2013 [facility] [address] [id number] [place] [address]- 1436 15 Aug, 2013 [facility] [address] [id number] [place] [address]- 4477 15 Aug, 2013 [facility] [address] [id number] [place] [address] 16 Jul, 2013 [facility] [place] [address] [id number] [place] [address]- 2233 16 Jul, 2013 [facility] [place] [facility] [address] [id number] [place] [address]- 1777 14 Jul, 2013 [facility] [place] [address] [id number] [place] [address]- 9861 14 Jul, 2013 [facility] [place] [address] [id number] [place] [address]- 0091 08 Jul, 2013 [facility] [address] [id number], [place] [address]- 23[address] 20 Sep, 2012 [facility] [address] [id number], [place] [address]- 7082 19 Sep, 2012 [facility] [address] [id number], [place] [address]- 3875 13 Sep, 2012 [facility] [address] [id number], [place] [address]- 20[address] 08 Sep, 2012 [facility] [address] [id number], [place] [address]- 2729 06 Sep, 2012 [facility] [address] [id number], [place] [address]- 7741 06 Sep, 2012 [facility] [address] [id number], [place] [address]- 5106 06 Sep, 2012 [facility] [address] [id number], [place] [address]- 4603 03 Sep, 2012 [facility] [address] [id number] [place] [address]- 0762 May, [facility] [address] [id number] [place] [address]- 6393 May, [facility] [address] [id number] [place] [address]- 7660 May, [facility] [address] [id number] [place] [address]- 5143 May, [facility] [address] [id number] [place] [address]- 0200 Apr, [facility] [address] [id number] [place] [address]- 0808 Apr, [facility] [address] [id number] [place] [address]- 8007 Apr, [facility] [address] [id number] [place] [address]- 6827 Mar, [facility] [address] [id number] [place] [address]- 5515 Mar, [facility] [address] [id number] [place] [address]- 1016 Mar, [facility] [address] [id number] [place] [address]- 7298 Mar, [facility] [address] [id number] [place] [address]- 8707 February, [facility] [address] [id number] [place] [address]- 0830 February, [facility] [address] [id number] [place] [address]- 9670 Jan, [facility] [address] [id number] [place] [address] Dec, [facility] [address] [id number] [place] [address] Dec, [facility] [address] [id number] [place] [address]- 8627 05 Dec, 2012 [facility] [address] [id number] [place] [address]- 4031 05 Dec, 2012 [facility] [address] [id number] [place] [address]- 7639 28 Dec, 2012 [facility] [address] [id number] [place] [address]- 8900 27 Dec, 2012 [facility] [address] [id number] [place] [address]- 6227 Dec, [facility] [address] [id number] [place] [address]- 0931 25 Dec, 2012 [facility] [address] [id number] [place] [address]- 6551 22 Dec, 2012 [facility] [address] [id number] [place] [address]- 9496 15 Dec, 2012 [facility] [address] [id number] [place] [address]- 6148 14 Dec, 2012 [facility] [address] [id number] [place] [address]- 1956 Oct, [facility] [address] [id number] [place] [address]- 0818 Oct, [facility] [address] [id number] [place] [address]- 7909 09 Oct, 2012 [facility] [address] [id number] [place] [address]- 1773 Oct, [facility] [address] [id number] [place] [address]- 8500 13 Sep, 2012 [facility] [address] [id number] [place] [address]- 3427 Sep, [facility] [address] [id number] [place] [address]- 7237 Sep, [facility] [address] [id number] [place] [address]- 1982 Sep, [facility] [address] [id number] [place] [address]- 2739 Sep, [facility] [address] [id number] [place] [address]- 4822 Sep, [facility] [address] [id number] [place] [address]- 9185 Aug, [facility] [address] [id number] [place] [address]- 4253 Aug, [facility] [address] [id number] [place] [address]- 0652 Aug, [facility] [address] [facility] [id number] [place] [address]- 3275 Aug, [facility] [address] [id number] [place] [address]- 0130 Aug, [facility] [address] [id number] [place] [address]- 4951 Aug, [facility] [address] [facility] [id number] [place] [address]- 9463 Jul, [facility] [address] [id number] [place] [address]- 7201 Jul, [facility] [address] [id number], [place] [address]- 6494 Jul, [facility] [address] [id number] [place] [address]- 3052 Jul, [facility] [address] [facility] [id number] [place] [address]- 8480 Jul, [facility] [address] [facility] [id number], [place] [address]- 1044 Jul, [facility] [address] [id number] [place] [address]- 3891 27 Jul, 2012 [facility] [address] [id number] [place] [address]- 9386 21 Jul, 2012 [facility] [address] [id number] [place] [address]- 6026 20 Jul, 2012 [facility] [address] [id number] [place] [address]- 6376 11 Jul, 2012 [facility] [address] [id number] [place] [address]- 1712 Jul, [facility] [address] [id number] [place] [address]- 7798 May, [facility] [address] [id number] [place] [address]- 5187 May, [facility] [address] [id number] [place] [address]- 3972 May, [facility] [address] [id number] [place] [address]- 0439 May, [facility] [address] [id number] [place] [address]- 2020 Apr, [facility] [address] [id number] [place] [address]- 1353 Apr, [facility] [address] [id number] [place] [address]- 5024 Apr, [facility] [address] [id number] [place] [address]- 9818 Apr, [facility] [address] [id number] [place] [address]- 2549 Apr, [facility] [address] [id number] [place] [address]- 5241 Apr, [facility] [address] [id number] [place] [address]- 1470 13 Apr, 2012 [facility] [address] [id number] [place] [address]- 6584 09 Apr, 2012 [facility] [place] [address] [id number] [place] [address]- 2534 28 Mar, 2012 [facility] [address] [id number] [place] [address]- 9389 27 Mar, 2012 [facility] [address] [id number] [place] [address]- 4042 20 Mar, 2012 [facility] [address] [id number] [place] [address]- 1589 15 Mar, 2012 [facility] [address] [id number] [place] [address]- 6258 14 Mar, 2012 [facility] [address] [id number] [place] [address]- 8684 Mar, [facility] [address] [id number] [place] [address]- 7593 Mar, [facility] [address] [id number] [place] [address]- 1986 Mar, [facility] [address] [id number] [place] [address]- 1649 08 Mar, 2012 [facility] [address] [id number] [place] [address]- 6481 February, [facility] [address] [id number] [place] [address]- 1728 February, [facility] [address] [id number] [place] [address]- 8172 February, [facility] [address] [id number] [place] [address]- 2251 February, [facility] [address] [id number] [place] [address]- 5707 13 Jan, 2012 [facility] [address] [id number] [place] [address]- 1829 03 Jan, 2012 [facility] [address] [id number] [place] [address]- 9767 28 Dec, 2011 [facility] [address] [id number] [place] [address]- 9526 15 Dec, 2011 [facility] [place] [facility] [address] [id number] [place] [address]- 8936 14 Dec, 2011 [facility] [place] [facility] [address] [id number] [place] [address]- 1826 07 Dec, 2011 [facility] [place] [facility] [address] [id number] [place] [address]- 3357 28 Dec, 2011 [facility] [place] [address] [id number] [place] [address]- 8566 27 Dec, 2011 [facility] [place] [facility] [address] [id number] [place] [address]- 4867 Dec, [facility] [place] [facility] [address] [id number] [place] [address]- 6906 Dec, [facility] [place] [facility] [address] [id number] [place] [address]- 4783 Dec, [facility] [address] [facility] [id number] [place] [address]- 2832 Dec, [facility] [place] [facility] [address] [facility] [id number] [place] [address]- 6542 Dec, [facility] [place] [facility] [address] [id number] [place] [address]- 4096 Dec, [facility] [place] [facility] [address] [id number] [place] [address]- 4092 Oct, [facility] [place] [facility] [address] [id number] [place] [address]- 2895 Oct, [facility] [place] [facility] [address] [id number], [place] [address]- 9706 Oct, [facility] [place] [facility] [address] [id number] [place] [address]- 2587 Oct, [facility] [place] [facility] [address] [id number] [place] [address]- 9189 Oct, [facility] [place] [facility] [address] [id number] [place] [address]- 7066 Oct, [facility] [place] [facility] [address] [id number], [place] [address]- 8666 16 Oct, 2011 [facility] [place] [facility] [address] [id number] [place] [address]- 4356 Oct, [facility] [place] [facility] [address] [id number] [place] [address]- 4047 Sep, [facility] [place] [facility] [address] [id number], [place] [address]- 9085 Sep, [facility] [place] [facility] [address] [id number], [place] [address]- 3272 Sep, [facility] [place] [facility] [address] [id number], [place] [address]- 8424 Aug, [facility] [place] [facility] [address] [id number], [place] [address]- 2865 Aug, [facility] [place] [facility] [address] [id number], [place] [address]- 6691 16 Aug, 2011 [facility] [place] [facility] [address] [id number], [place] [address]- 8375 14 Aug, 2011 [facility] [place] [facility] [address] [id number], [place] [address]- 2298 Aug, [facility] [place] [facility] [address] [id number], [place] [address]- 9330 19 Jul, 2011 [facility] [place] [facility] [address] [id number], [place] [address]- 1612 13 Jul, 2011 [facility] [place] [facility] [address] [facility] [id number], [place] [address]- 3954 May, [facility] [address] [id number], [place] [address]- 4942 Dec, [facility] [id number], [place] [address]- 0517 Oct, [facility] [address] [id number], [place] [address]- 0261 Sep, [facility] [id number], [place] [address]- 2714 Sep, [facility] [id number], [place] [address]- 0603 Sep, IMMUNIZATIONS No Known Immunizations SOCIAL HISTORY Never Assessed REASON FOR VISIT [place] admission PLAN OF CARE Activity Details Follow Up prn Reason: VITAL SIGNS MEDICATIONS Medication Instructions Dosage Frequency Start Date End Date Duration Status BD Insulin Syringe 30G X 1/2 subcutaneously 4 times a day use with insulin 6h May, Active NovoLog Flexpen 100 UNIT/ML Subcutaneous 3 times a day 12 u 8h Sep, Active Multivitamin Adult - Orally, bubble pack for [facility] Once a day 1 tablet 24h Active Probiotic - Active PreserVision AREDS - Active Seroquel 50 mg Orally Once a day 1 tablet 24h Aug, 30 day(s) Active Escitalopram Oxalate 20 MG Orally Once a day 1 tablet 24h 30 days Active Estradiol 0.5 MG 1 tablet Active Lisinopril 10 mg Orally Once a day 1 tablet 24h 30 Active Protonix 40 mg Orally Once a day 1 tablet 24h Active Mirtazapine 15 MG Orally Once a day 1 tablet at bedtime 24h Active Gabapentin 100 mg Orally twice a day as needed for anxiety 2 capsules Jul, 30 days Active Osteo Bi-Flex Regular Strength 250-200 MG Orally Once a day 1 tablet with a meal 24h Active Acetaminophen 500 MG Orally every 6 hrs 2 tablets as needed 6h Active Tramadol HCl 50 mg Orally 3 times a day 1 tablet as needed 8h Active Tresiba FlexTouch 100 UNIT/ML 60u at bedtime Aug, Active Wellbutrin XL 150 MG Orally Once a day 3 in the morning 24h 30 days Active RESULTS No Results PROCEDURES Procedure Date Ordered Result Body Site [facility] VISIT ESTABLISHED PATIENT Sep 06, 2017 INSTRUCTIONS MEDICATIONS ADMINISTERED No Known Medications [...] reflux Surgical History Left Knee SOA-Dr. Melendrez[facility] 05/19/16 Surgical History Colonoscopy- Dr Castanno 01/26/2017 Hospitalization History surgeries Hospitalization History Left Knee SOA--Dr. Melendrez--[facility] Hospitalization History Septic shock, UTI-[facility] 07/27/17 Hospitalization History Multiple falls, hyperglycemia, sepsis 07/2017 Hospitalization History Alcoholism, depression, DM, Falls-[facility] 08/23/17 Hospitalization History COPD exacerbation-[facility] 11/25/17 Hospitalization History COPD exacerbation-[facility] 11/28/17
[2018-05-10] MEDS ORDERED: NS IV 1000 ML 1,000 ML IV ONE (03:28)
--- OUTSIDE RECORDS SUMMARY | 2018-05-10 03:28 | XMS REPORT ---
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 Active 351652492 Problem Psoriatic arthritis L40.50 Active 138508363 Problem Psychophysiological insomnia F51.04 Active 39525655 Problem Other specified 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 Active 236056671 Problem Obesity (BMI 30-39.9) E66.9 Active 499599017 Problem Major depressive disorder, recurrent, moderate F33.1 Active 08061190 Problem Essential hypertension I10 Active 76902704 Problem Type 2 diabetes mellitus with hyperglycemia E11.65 Active 425178949047660 Problem Alcoholism F10.20 Active 6385646 Problem Frequent falls R29.6 Active 579246266 Problem Benzodiazepine abuse F13.10 Active 527926845 Problem PTSD (post-traumatic stress disorder) F43.10 Active 67218439 Problem Eating disorder F50.9 Active 00852381 Problem Attention-deficit hyperactivity disorder, combined type F90.2 Active 25278916 Problem COPD exacerbation J44.1 Active 913256740 Problem Anxiety F41.9 Active 60122094 Problem Decubitus ulcer of left buttock, stage 2 L89.322 Active 064266213 Problem BMI 40.0-44.9, adult Z68.41 Active 478035477 Problem Alcohol abuse F10.10 Active 43160205 Problem Pneumonia due to methicillin resistant Staphylococcus aureus, unspecified laterality, unspecified part of lung J15.212 Active 463160611435095 Problem Type 2 diabetes mellitus with unspecified complications E11.8 Active 60023719 Problem Attention-deficit hyperactivity disorder, predominantly hyperactive type F90.1 Active 846628900 Problem Type 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 Active 19459269 Problem Ulcer of right foot, unspecified ulcer stage L97.519 Active 39905894 Problem Attention deficit R41.840 Active 03803484 Problem Mental disorder, not otherwise specified F99 Active 80803321 Problem Insomnia due to other mental disorder F51.05 Active 55261268 ALLERGIES Substance Reaction Event Type Date Status Methylphenidate twitching Drug Allergy May, Active ENCOUNTERS Encounter Location Date Diagnosis [facility] [id number] [place] [address] 23322- 7590 February, [facility] [id number] [place] [address] 06886- 5050 February, [facility] [id number] [place] [address] 97851- 7561 Jan, [facility] [id number] [place] [address] 34394- 3856 Jan, [facility] [id number] [place] [address] 02716- 1904 Dec, Major depressive disorder, recurrent episode, unspecified severity F33.9 ; Generalized anxiety disorder F41.1 and Eating disorder F50.9 [facility] [id number] [place] [address] 44496- 5641 Dec, [facility] [id number] [place] [address] 61509- 8430 Dec, [facility] [id number] [place] [address] 11482- 4907 Dec, [facility] [id number] [place] [address] 17418- 1850 Dec, Increased urinary frequency R35.0 ; Frequent falls R29.6 ; Decubitus ulcer of left buttock, stage 2 L89.322 ; Benzodiazepine abuse F13.10 ; BMI 40.0-44.9, adult Z68.41 and Yeast infection B37.9 [place] [address] [place] [address] 52981- 6258 Dec, [place] [address] [place] [address] 59111- 7042 Dec, [facility] [id number] [place] [address] 66698- 7317 Dec, Increased urinary frequency R35.0 [facility] [id number] [place] [address] 95409- 4187 Dec, Increased urinary frequency R35.0 [facility] [id number] [place] [address] 01313- 2868 Dec, Generalized anxiety disorder F41.1 ; Major depressive disorder, recurrent, moderate F33.1 and Psychophysiological insomnia F51.04 [place] [address] [place] [address] 06906- 5805 Dec, BMI 40.0-44.9, adult Z68.41 ; Type 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 ; Pneumonia due to methicillin resistant Staphylococcus aureus, unspecified laterality, unspecified part of lung J15.212 and COPD exacerbation J44.1 [facility] [address] [address] Dec, [place] [id number] [place] [address] [id number] Dec, [place] [id number] [place] [address] [id number] Oct, [facility] IN [facility] [id number] [place] [address] 96762 -1839 Oct, Frequency of urination R35.0 ; Bronchitis J40 and BMI 40.0- 44.9, adult Z68.41 [place] [id number] [place] [address] [id number] Oct, [facility] [facility] [id number] [place] [address] 84113- 4477 Oct, [place] [address] 70468- 1283 Oct, BMI 40.0-44.9, adult Z68.41 ; Type 2 diabetes mellitus with hyperglycemia E11.65 ; Essential hypertension I10 ; Vaginal yeast infection B37.3 ; Anxiety F41.9 and Alcoholism F10.20 [facility] [id number] [place] [address] 17683- 9519 Oct, [address] 18773- 7041 Oct, [address] 21640- 2261 Sep, [address] 31139- 4511 Sep, Major depressive disorder, recurrent episode, unspecified severity F33.9 ; Generalized anxiety disorder F41.1 and Eating disorder F50.9 [address] [id number] [place] [address] 88700- 6571 Sep, Major depressive disorder, recurrent, moderate F33.1 ; Type 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 ; Alcohol abuse F10.10 ; Obesity (BMI 30-39.9) E66.9 and Psychophysiological insomnia F51.04 [address] [id number] [place] [address] 00855- 4056 Sep, Diabetes E11.9 and Generalized anxiety disorder F41.[address] 80235- 6350 05 Sep, 2017 Major depressive disorder, recurrent episode, unspecified severity F33.9 ; Generalized anxiety disorder F41.1 and Eating disorder F50.9 [address] [id number] [place] [address] 88631- 1575 Sep, [place] [address] [place] [address] 01060- 5335 Aug, [facility] [facility] [id number] [place] [address] 71550- 3507 Aug, Insomnia due to other mental disorder F51.05 ; Mental disorder, not otherwise specified F99 ; Attention deficit R41.840 ; Ulcer of right foot, unspecified ulcer stage L97.519 ; Cough R05 ; Diabetes E11.9 ; Sore in mouth K13.79 ; Generalized anxiety disorder F41.1 ; Major depressive disorder , recurrent episode, unspecified severity F33.9 and BMI 40.0-44.9, adult Z68.41 [facility] [facility] [id number] [place] [address] 93065- 4543 Aug, [place] [facility] [id number] [place] [address] 62783- 8659 Aug, [place] [id number] [place] [address] 40959- 5283 Aug, [place] [id number] [place] [address] 73788- 0498 Aug, [place] [id number] [place] [address] 23413- 8093 Aug, Diabetes E11.9 [facility] [address] [place] [id number] Aug, Falling R29.6 ; Alcohol abuse F10.10 ; Major depressive disorder, recurrent episode, unspecified severity F33.9 ; 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 I10 ; Type 2 diabetes mellitus with unspecified complications E11.8 and 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 [place] [id number] [place] [address] [id number] Aug, [facility] [address] [place] [place] [id number] Aug, Alcohol abuse F10.10 ; Major depressive disorder, recurrent episode, unspecified severity F33.9 ; Generalized anxiety disorder F41.1 ; [facility] 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 ; Psoriatic arthritis L40.50 and Diabetes E11.9 [facility] [id number] [id number] Aug, [facility] [id number] [place] [address] [id number] Jul, [facility] [address] [address]- 3604 Jul, [facility] [id number] [place] [address] 24808- 0733 Jul, Generalized anxiety disorder F41.1 [facility] [address] [place] [address] 12448- 6722 Jul, [facility] [id number] [place] [address] 97250- 8865 Jul, [facility] [id number] [place] [address] 74481- 9353 Jul, Generalized anxiety disorder F41.1 ; Major depressive disorder, recurrent episode, unspecified severity F33.9 ; PTSD (post-traumatic stress disorder) F43.10 ; Eating disorder F50.9 and Attention-deficit hyperactivity disorder, predominantly hyperactive type F90.1 [facility] [address] [address]- 2609 Jul, [facility] [address] [address]- 5675 Jul, [facility] [id number] [place] [address] 70894- 3860 Jul, [facility] 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 ; Type 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 ; Urinary tract infection, site not specified N39.0 ; Sepsis, unspecified organism A41.9 and Essential hypertension I10 [facility] [id number] [id number] Jul, [facility] WALK IN [facility] [address] [address] Jul, [facility] [address] [address]- 0213 Jul, Generalized anxiety disorder F41.1 [facility] [id number] [place] [address] 25767- 1034 15 Jul, 2017 [facility] [id number] [place] [address] 67158- 4669 Jul, Generalized anxiety disorder F41.1 [facility] [id number] [place] [address] 68697- 6828 May, Generalized anxiety disorder F41.1 ; Major depressive disorder, recurrent episode, unspecified severity F33.9 ; PTSD (post-traumatic stress disorder) F43.10 ; Eating disorder F50.9 and Attention-deficit hyperactivity disorder, predominantly hyperactive type F90.1 [facility] [address] [address]- 0774 May, Diabetes E11.9 [facility] WALK IN [facility] [id number] [place] [address] 13275 -3666 May, Acute non-recurrent maxillary sinusitis J01.00 and Diabetes E11.9 [facility] [id number] [place] [address] 78200- 8787 May, [facility] [id number] [place] [address] 83349- 7550 May, [facility] [id number] [place] [address] 77402- 1270 May, Generalized anxiety disorder F41.1 [facility] [address] [address]- 7930 Apr, [facility] [id number] [place] [address] 73451- 9139 Apr, [facility] [address], [place] [address]- 4988 Apr, [facility] [id number] [place] [address] 32238- 6507 Apr, Generalized anxiety disorder F41.1 ; Major depressive disorder, recurrent episode, unspecified severity F33.9 ; PTSD (post-traumatic stress disorder) F43.10 ; Eating disorder F50.9 and Attention-deficit hyperactivity disorder, predominantly hyperactive type F90.1 [place] [id number] [place] [address] 41393- 8589 Apr, Major depressive disorder, recurrent, moderate F33.1 [place] [facility] [id number] [place] [address] 36879- 5963 Mar, Diabetes E11.9 [place] [address] 48219- 2635 Mar, Attention-deficit hyperactivity disorder, combined type F90.2 [place] [facility] [id number] [place] [address] 04980- 4090 Mar, [place] [address] 10063- 4875 Mar, Diabetes E11.9 [place] [id number] [place] [address] 36281- 3713 Mar, [facility] 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 ; Psoriatic arthritis L40.50 ; Other specified 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 and 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 I10 [place] [facility] [id number] [place] [address] 97925- 4689 February, Back pain M54.9 [place] [facility] [id number] [place] [address] 91225- 1639 February, Attention-deficit hyperactivity disorder, combined type F90.2 [place] [id number] [place] [address] 89439- 6700 February, Major depressive disorder, recurrent episode, unspecified severity F33.9 and Generalized anxiety disorder F41.1 [place] [id number] [place] [address] 59618- 1151 Jan, Attention-deficit hyperactivity disorder, combined type F90.2 [facility] [address] [address]- 5347 Jan, Major depressive disorder, recurrent, moderate F33.1 ; Generalized anxiety disorder F41.1 and Attention-deficit hyperactivity disorder , combined type F90.2 [facility] [id number] [place] [address] 22980- 5529 Dec, Major depressive disorder, recurrent episode, unspecified severity F33.9 ; Generalized anxiety disorder F41.1 and Attention-deficit hyperactivity disorder, predominantly hyperactive type F90.1 [facility] [id number] [place] [address] 20307- 2447 Dec, Major depressive disorder, recurrent episode, unspecified severity F33.9 and Generalized anxiety disorder F41.1 [place] [id number] [place] [address] 86467- 1172 Dec, [place] [id number] [place] [address] 40750- 4901 Dec, [place] [id number] [place] [address] 22309- 1733 Dec, Major depressive disorder, recurrent episode, unspecified severity F33.9 and Generalized anxiety disorder F41.1 [place] [id number] [place] [address] 84357- 5629 Dec, Back pain M54.9 [place] [id number] [place] [address] 25418- 0864 17 Dec, 2016 Eustachian tube dysfunction, right H69.81 and Arthritis M19.90 [facility] [id number] [place] [address] 80853- 9466 Dec, [facility] [id number] [place] [address] 39066- 1739 Dec, [facility] [id number] [place] [address] 10454- 1396 07 Dec, 2016 Major depressive disorder, recurrent episode, unspecified severity F33.9 [place] [id number] [place] [address] 44945- 6936 Oct, [facility] [id number] [place] [address] 87255 -1629 Oct, Acute non-recurrent pansinusitis J01.40 and Sore throat J02.9 [place] [id number] [place] [address] 53506- 3024 Oct, Major depressive disorder, recurrent episode, unspecified severity F33.9 [place] [id number] [place] [address] 30449- 4339 Oct, Major depressive disorder, recurrent episode, unspecified severity F33.9 and Generalized anxiety disorder F41.1 [place] [id number] [place] [address] 20810- 3783 Sep, [place] [facility] [id number] [place] [address] 23643- 4328 Sep, Major depressive disorder, recurrent episode, unspecified severity F33.9 [place] [id number] [place] [address] 52011- 3464 Sep, Major depressive disorder, recurrent episode, unspecified severity F33.9 [facility] WALK IN [facility] [id number] [place] [address] 73510 -6104 Sep, Sore throat J02.9 [place] [facility] [id number] [place] [address] 61456- 2906 Sep, Generalized anxiety disorder F41.1 ; Major depressive disorder, recurrent episode, unspecified severity F33.9 and Attention-deficit hyperactivity disorder, predominantly hyperactive type F90.1 [place] [address] [place] [address] 54028- 0273 Sep, Major depressive disorder, recurrent episode, unspecified severity F33.9 and Generalized anxiety disorder F41.1 [place] [id number] [place] [address] 95939- 4920 Sep, Psoriatic arthritis L40.50 [facility] [address] [place] [address] 64240- 4482 Sep, Diabetes E11.9 ; [facility] 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 ; Back pain M54.9 and Encounter for immunization Z23 [facility] [address] [place] [address] 62680- 7690 Aug, [facility] [address] 28119- 7605 Aug, [facility] [id number] [place] [address] 91855- 2742 Jul, Major depressive disorder, recurrent episode, unspecified severity F33.9 ; Attention-deficit hyperactivity disorder, predominantly hyperactive type F90.1 and Generalized anxiety disorder F41.1 [place] [id number] [place] [address] 53871- 8473 Jul, [facility] [id number] [place] [address] 43991- 2152 Jul, Major depressive disorder, recurrent, in partial remission F33.41 and Generalized anxiety disorder F41.1 [place] [facility] [id number] [place] [address] 82694- 0595 Jul, [place] [address] [place] [address] 05906- 2186 Jul, [facility] [id number] [place] [address] 30149- 2252 Jul, [facility] [id number] [place] [address] 11775- 7516 Jul, [place] [facility] [id number] [place] [address] 78517- 9658 12 Jul, 2016 Diabetes E11.9 [facility] [address] [place] [address] 85753- 2625 May, [place] [id number] [address]- 2115 May, [facility] [id number] [place] [address] 54080- 7228 May, [facility] [id number] [place] [address] 15873- 4315 May, Major depressive disorder, recurrent episode, unspecified severity F33.9 ; Generalized anxiety disorder F41.1 and Attention-deficit hyperactivity disorder, predominantly hyperactive type F90.1 [facility] [id number] [place] [address] 42634- 7303 May, [facility] [id number] [place] [address] 50177- 5512 May, Diabetes E11.9 [facility] [id number] [place] [address] 03902- 2598 May, [facility] [id number] [place] [address] 03242- 7032 May, [facility] [address] [facility] [place] [id number] May, Diabetes E11.9 ; Generalized anxiety disorder F41.1 and Nausea R11.0 [facility] [address] [place] [address] 09594- 0208 May, Psoriatic arthritis L40.50 and Candidiasis of female genitalia B37.3 [place] [address] [place] [address] 27570- 3263 May, [facility] [address] [place] [address] 42027- 1443 Apr, [facility] [id number] [place] [address] 95416- 6507 Apr, [facility] [address] [place] [address] 61582- 0866 Apr, [facility] [address] [place] [address] 64127- 2707 Apr, Generalized anxiety disorder F41.1 ; Major depressive disorder, recurrent episode, unspecified severity F33.9 and Attention-deficit hyperactivity disorder, predominantly hyperactive type F90.1 [facility] [id number] [place] [address] 33686- 5992 Apr, [facility] [id number] [place] [address] 41181- 0568 Apr, [facility] [id number] [place] [address] 96640- 3872 Apr, [facility] [id number] [place] [address] 10974- 4679 Apr, [facility] [id number] [place] [address] 58754- 5718 Apr, [facility] [id number] [place] [address] 59514- 3165 Mar, Attention-deficit hyperactivity disorder, predominantly hyperactive type F90.1 [facility] [id number] [place] [address] 01817- 6663 Mar, [facility] [id number] [place] [address] 04499- 0878 Mar, [facility] [id number] [place] [address] 23125- 3156 Mar, Major depressive disorder, recurrent episode, unspecified severity F33.9 and Generalized anxiety disorder F41.1 [facility] [id number] [place] [address] 75057- 6079 February, Diabetes E11.9 [facility] [id number] [place] [address] 21456 -6238 February, OME (otitis media with effusion), bilateral H65.93 [facility] [id number] [place] [address] 76198- [phone] February, Back pain M54.9 [facility] [id number] [address] February, [facility] [id number] [place] [address] [phone] February, Nausea R11.0 [facility] [id number] [place] [address] 055[address]- 6084 February, [facility] [id number] [place] [address] 46[address]- [address]796 February, Pre-op evaluation Z01.818 ; Type 2 diabetes mellitus with hyperglycemia E11.65 and 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 [facility] [id number] [place] [address] 579[address]- [phone] February, [facility] [id number] [place] [phone] February, Right otitis externa H60.91 [facility] [id number] [place] [phone]- [phone] Jan, [facility] [id number] [place] [address] 86161- 4753 Jan, Psoriatic arthritis L40.50 and Arthralgia, unspecified joint M25.50 [facility] [id number] [place] [address] 25352- 0057 Jan, Major depressive disorder, recurrent episode, unspecified severity F33.9 ; Generalized anxiety disorder F41.1 and Attention-deficit hyperactivity disorder, unspecified type F90.9 [facility] [address] [address] Jan, [facility] [id number] [place] [address] 22829- 6288 Jan, [facility] [id number] [place] [address] 40593- 6336 Jan, Major depressive disorder, recurrent episode, unspecified severity F33.9 and Generalized anxiety disorder F41.1 [facility] [address] [place] [address] 7499 05 Jan, 2016 [facility] [address], [place] [address] 7763 Dec, 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 I10 and Arthritis M19.90 [facility] [address] [address] 8723 Dec, [facility] [id number] [place] [address] 23766- 7755 Dec, [facility] [id number] [place] [address] 65928- 1740 Dec, [facility] [id number] [place] [address] 95372- 6147 Dec, [facility] [address], [place] [address]- 9914 Dec, [facility] [id number] [place] [address] 27207- 3629 Dec, Major depressive disorder, recurrent episode, unspecified severity F33.9 and Generalized anxiety disorder F41.1 [facility] [id number] [place] [address] 57391- 8162 Dec, Diabetes E11.9 ; Back pain M54.9 ; Thrush B37.0 and 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 I10 [facility] [address] [address] 1305 Dec, Major depressive disorder, recurrent episode, unspecified severity F33.9 and Generalized anxiety disorder F41.1 [facility] [address], [place] [address]- 1387 Dec, Major depressive disorder, recurrent episode, in partial or unspecified remission 296.35 ; Major depressive disorder, recurrent episode, unspecified severity F33.9 and Generalized anxiety disorder 300.02 [facility] [address] [address] 4823 Dec, [facility] [id number] [place] [address] 95799- 3089 Oct, [facility] [id number] [place] [address] 07387- 2550 Oct, [facility] [id number] [place] [address] 98960- 0604 Oct, [facility] [address] 6[address]23- 6283 Oct, [facility] [address] 97002- 0581 Oct, Major depressive disorder, recurrent, moderate F33.1 and Attention-deficit hyperactivity disorder, unspecified type F90.9 [facility] [address] 97978- 6535 Oct, [facility] (current) use of opiate analgesic Z79.891 [facility] [address] 30972- 6700 Oct, [facility] [address] 11774- 1379 Oct, [facility] [id number] [place] [address] 65369 -5936 Sep, URI (upper respiratory infection) J06.9 ; Psoriasis L40.9 ; Cough R05 and Tobacco abuse Z72.0 [facility] [id number] [place] [address] 19769- 5474 Sep, Major depressive disorder, recurrent episode, in partial or unspecified remission 296.35 ; Generalized anxiety disorder 300.02 and ADHD, 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 [facility] [id number] [place] [address] 47236 -0902 Sep, Acute sinusitis, unspecified J01.90 [facility] [id number] [place] [address] 74056- 4662 Sep, [facility] [address] [place] [address]- 2349 Sep, Major depressive disorder, recurrent, moderate F33.1 ; Generalized anxiety disorder F41.1 and Attention-deficit hyperactivity disorder , combined type F90.2 [facility] [id number] [place] [address] 74112- 9026 Sep, [facility] [id number] [place] [address] 10623- 4515 Aug, [facility] [id number] [place] [address] 93087- 2204 Aug, [facility] [id number] [place] [address] 07562- 1084 Aug, Diabetes E11.9 and Anxiety F41.9 [facility] [id number] [place] [address] 04966- 6452 Aug, Major depressive disorder, recurrent episode, unspecified severity F33.9 and Generalized anxiety disorder F41.1 [facility] [id number] [place] [address] 24250- 7598 Aug, [facility] [id number] [place] [address] 38991- 9796 Jul, [facility] [id number] [place] [address] 31157- 1749 Jul, [facility] [id number] [place] [address] 68643- 7111 Jul, [facility] [id number] [place] [address] 90813- 6234 Jul, [facility] [id number] [place] [address] 10083- 4575 Jul, Major depressive disorder, recurrent episode, in partial or unspecified remission 296.35 ; Generalized anxiety disorder 300.02 and ADHD, 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 [facility] [id number] [place] [address] 15349- 8963 Jul, Major depressive disorder, recurrent episode, in partial or unspecified remission 296.35 ; Generalized anxiety disorder 300.02 and ADHD, 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 [facility] [id number] [place] [address] 27756- 4298 Jul, [facility] [id number] [place] [address] 09529- 6843 May, [facility] [id number] [place] [address] 19823- 9152 May, [facility] [id number] [place] [address] 38903- 6524 May, DM w/o complication type II 250.00 ; Dyspepsia 536.8 and PAD (peripheral artery disease) 443.9 [facility] [id number] [place] [address] 41436- 0646 May, Major depressive disorder, recurrent episode, moderate 296.32 and Generalized anxiety disorder 300.02 [facility] [id number] [place] [address] 38938- 6003 May, [facility] [id number] [place] [address] 01174- 6185 May, Major depressive disorder, recurrent episode, moderate 296.32 and Generalized anxiety disorder 300.02 [facility] [address] [address]- 7755 May, [facility] [id number] [place] [address] 63679- 1823 Apr, [facility] [id number] [place] [address] 96985- 5951 Apr, Major depressive disorder, recurrent episode, moderate 296.32 and Generalized anxiety disorder 300.02 [facility] [id number] [place] [address] 08848- 6486 Apr, [facility] [id number] [place] [address] 36118- 4756 Apr, [facility] [address] [address]- 2920 Apr, Generalized anxiety disorder 300.02 ; ADHD, 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 and Depression, major, recurrent, moderate 296.32 [facility] [address], [place] [address]- 6845 Apr, Major depressive disorder, recurrent episode, moderate 296.32 and Generalized anxiety disorder 300.02 [facility] [id number] [place] [address] 51967- 0086 Apr, [facility] [address] [address]- 3214 Apr, [facility] [address], [place] [address]- 0126 Mar, [facility] [id number] [place] [address] 84661- 9032 Mar, Major depressive disorder, recurrent episode, moderate 296.32 and Generalized anxiety disorder 300.02 [facility] [address] [address]- 9436 Mar, ADHD, 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 ; Major depressive disorder, recurrent episode, severe, without mention of psychotic behavior 296.33 and Generalized anxiety disorder 300.02 [facility] [address] [address]- 3345 February, Major depressive disorder, recurrent episode, moderate 296.32 and Generalized anxiety disorder 300.02 [facility] [address], [place] [address]- 5999 February, [facility] [address], [place] [address]- 4967 February, [facility] [address], [place] [address]- 2365 February, [facility] [address], [place] [address]- 1909 February, [facility] [address] [facility] [id number] [address]- 3584 February, DM w/o complication type II 250.00 ; Impacted cerumen 380.4 ; Essential hypertension, benign 401.1 and Irritable colon 564.1 [facility] [address] [facility] [id number] [place] [address]- 6354 February, [facility] [id number] [place] [address], [place] [address]- 2261 February, [facility] [address] [facility] [id number] [place] [address]- 3257 Jan, [facility] [id number] [place] [address], [place] [address]- 6497 Dec, [facility] [id number] [place] [address]- 7789 Dec, [facility] [id number] [place] [address]- 0724 Dec, [facility] [id number] [place] [address]- 7728 Dec, [facility] [id number] [place] [address]- 1096 Dec, [facility] [id number] [place] [address]- 1992 Dec, [facility] [address], [place] [address]- 2373 Dec, [facility] [id number] [place] [address]- 0020 Dec, [facility] [id number] [place] [address]- 4566 Dec, [facility] [id number] [address]- 7898 Dec, [facility] [address], [place] [address]- 4034 Dec, [facility] [place] [facility] [address] [id number] [place] [address]- 5211 Dec, [facility] [place] [facility] [address] [id number] [place] [address]- 8647 Dec, [facility] [place] [facility] [address] [id number] [place] [address]- 6296 Dec, [facility] [place] [facility] [address] [id number] [place] [address]- 8117 Dec, [facility] [place] [facility] [address] [id number] [place] [address]- 7811 Dec, [facility] [place] [facility] [address] [id number] [place] [address]- 3588 Oct, [facility] [place] [facility] [address] [id number] [place] [address]- 4429 Oct, [facility] [place] [facility] [address] [id number] [place] [address]- 2488 Oct, [facility] [place] [facility] [address] [id number] [place] [address]- 4229 Oct, [facility] [place] [facility] [address] [id number] [place] [address]- 1404 Oct, [facility] [place] [facility] [address] [id number] [place] [address]- 9898 Oct, [facility] [place] [facility] [address] [id number] [address]- 1062 Oct, [facility] [place] [facility] [address] [id number] [place] [address]- 1147 Oct, [facility] [place] [facility] [address] [id number] [place] [address]- 6242 Oct, [facility] [place] [facility] [address] [id number] [address]- 0085 Oct, [facility] [place] [facility] [address] [id number] [place] [address]- 3742 Oct, [facility] [place] [facility] [address] [id number] [place] [address]- 7707 Sep, [facility] [place] [facility] [address] [id number] [place] [address]- 6315 Sep, [facility] [place] [facility] [address] [id number] [place] [address]- 6006 Sep, [facility] [place] [facility] [address] [id number] [place] [address]- 0296 Sep, [facility] [place] [facility] [address] [id number] [place] [address]- 6711 Sep, [facility] [place] [facility] [address] [id number] [place] [address]- 7925 Sep, [facility] [place] [facility] [address] [id number] [place] [address]- 8182 Sep, [facility] [place] [facility] [address] [id number] [place] [address]- 0019 Sep, [facility] [place] [facility] [address] [id number] [place] [address]- 7156 Aug, [facility] [place] [facility] [address] [id number] [place] [address]- 8270 Aug, [facility] [place] [facility] [address] [id number] [place] [address]- 9812 Aug, [facility] [place] [facility] [address] [id number] [place] [address]- 7787 Aug, [facility] [place] [facility] [address] [id number] [place] [address]- 2821 Aug, [facility] [place] [facility] [address] [id number] [place] [address]- 5668 Aug, [facility] [place] [facility] [address] [id number] [place] [address]- 2382 Aug, [facility] [place] [facility] [address] [id number] [place] [address]- 9862 Aug, [facility] [place] [facility] [address] [id number] [place] [address]- 2993 Aug, [facility] [place] [facility] [address] [id number] [place] [address]- 3771 Aug, [facility] [place] [facility] [address] [id number] [place] 1000 Aug, [facility] [place] [facility] [address] [id number] [place] [address]- 0790 Aug, [facility] [place] [facility] [address] [id number] [place] [address]- 6685 Aug, [facility] [place] [facility] [address] [id number] [place] [address]- 6545 Aug, [facility] [place] [facility] [address] [id number] [address]- 8699 Jul, [facility] [place] [facility] [address] [id number] [place] [address]- 6961 Jul, [facility] [place] [facility] [address] [id number], [place] [address]- 3280 Jul, [facility] [place] [facility] [address] [id number], [place] [address]- 0982 Jul, [facility] [place] [facility] [address] [id number], [place] [address]- 4628 Jul, [facility] [place] [facility] [address] [id number], [place] [address]- 7705 Jul, [facility] [place] [facility] [address] [id number], [place] [address]- 4123 Jul, [facility] [place] [facility] [address] [id number], [place] [address]- 1602 Jul, [facility] [place] [facility] [address] [id number] [place] [address]- 8714 Jul, [facility] [place] [facility] [address] [id number] [place] [address]- 5217 Jul, [facility] [place] [facility] [address] [id number] [place] [address]- 4370 Jul, [facility] [place] [facility] [address] [id number] [place] [address]- 0323 Jul, [facility] [place] [facility] [address] [id number] [place] [address]- 5329 Jul, [facility] [place] [facility] [address] [id number] [place] [address]- 1625 Jul, [facility] [place] [facility] [address] [id number] [place] [address]- 6606 May, [facility] [place] [facility] [address] [id number] [place] [address]- 5855 May, [facility] [place] [facility] [address] [id number] [place] [address]- 5670 May, [facility] [place] [facility] [address] [id number] [place] [address]- 0448 May, [facility] [place] [facility] [address] [id number] [place] [address]- 7916 May, [facility] [place] [facility] [address] [id number] [place] [address]- 5610 May, [facility] [place] [facility] [address] [id number] [place] [address]- 9875 May, [facility] [place] [facility] [address] [id number] [place] [address]- 6233 May, [facility] [place] [facility] [address] [id number] [place] [address]- 7945 May, [facility] [place] [facility] [address] [id number] [place] [address]- 9821 May, [facility] [place] [facility] [address] [id number] [place] [address]- 7422 May, [facility] [place] [facility] [address] [id number] [place] [address]- 7344 May, [facility] [place] [facility] [address] [id number] [place] [address]- 4777 Apr, [facility] [place] [facility] [address] [id number] [place] [address]- 0449 Apr, [facility] [place] [facility] [address] [id number] [place] [address]- 9581 Apr, [facility] [place] [facility] [address] [id number] [place] [address]- 9275 Apr, [facility] [place] [facility] [address] [id number] [place] [address]- 9644 Apr, [facility] [place] [facility] [address] [id number] [place] [address]- 6980 Apr, [facility] [place] [facility] [address] [id number] [place] [address]- 5976 Mar, [facility] [place] [facility] [address] [id number] [place] [address]- 7719 Mar, [facility] [place] [facility] [address] [id number] [place] [address]- 0140 Mar, [facility] [place] [facility] [address] [id number] [place] [address]- 1254 Mar, [facility] [place] [facility] [address] [id number] [place] [address]- 8515 Mar, [facility] [place] [facility] [address] [id number] [place] [address]- 6254 Mar, [facility] [place] [facility] [address] [id number] [place] [address]- 6044 Mar, [facility] [place] [facility] [address] [id number] [place] [address]- 3934 Mar, [facility] [place] [facility] [address] [id number] [place] [address]- 3592 Mar, [facility] [place] [facility] [address] [id number] [place] [address]- 0612 Mar, [facility] [place] [facility] [address] [id number] [place] [address]- 7878 Mar, [facility] [place] [facility] [address] [id number] [place] [address]- 1173 Mar, [facility] [place] [facility] [address] [id number] [place] [address]- 4845 Mar, [facility] [place] [facility] [address] [id number] [place] [address]- 4754 February, [facility] [place] [facility] [address] [id number] [place] [address]- 7245 February, [facility] [place] [facility] [address] [id number] [place] [address]- 2553 February, [facility] [place] [facility] [address] [id number] [place] [address]- 8807 February, [facility] [place] [facility] [address] [id number] [place] [address]- 2235 February, [facility] [place] [facility] [address] [id number] [place] [address]- 1682 February, [facility] [place] [facility] [address] [id number] [place] [address] February, [facility] [place] [facility] [address] [id number] [place] [address] February, [facility] [place] [facility] [address] [id number] [place] [address] February, [facility] [place] [facility] [address] [id number] [place] [address] February, [facility] [place] [facility] [address] [id number] [place] [address] 14 Feb, 2014 [facility] [address] [id number] [place] [address] February, [facility] [place] [facility] [address] [id number] [place] [address] February, [facility] [place] [facility] [address] [id number] [place] [address] February, [facility] [place] [facility] [address] [id number] [place] [address] Jan, [facility] [place] [facility] [address] [id number] [place] [address] Jan, [facility] [place] [facility] [address] [id number] [place] [address] Jan, [facility] [place] [facility] [address] [id number] [place] [address] Jan, [facility] [address] [id number] [place] [address] Jan, [facility] [place] [facility] [address] [id number] [place] [address] Jan, [facility] [place] [facility] [address] [id number] [place] [address] Jan, [facility] [place] [facility] [address] [id number] [place] [address] Jan, [facility] [place] [facility] [address] [id number] [place] [address] Jan, [facility] [place] [facility] [address] [id number] [place] [address]- [address] Dec, [facility] [place] [facility] [address] [id number] [place] [address] Dec, [facility] [place] [facility] [address] [id number] [place] [address] Dec, [facility] [place] [facility] [address] [id number] [place] [address] Dec, [facility] [place] [facility] [address] [id number] [place] [address]- [address] Dec, [facility] [place] [facility] [address] [id number] [place] [address] Dec, [facility] [place] [facility] [address] [id number] [place] [address] Dec, [facility] [place] [facility] [address] [id number] [place] [address] Dec, [facility] [place] [facility] [address] [id number] [place] [address] Dec, [facility] [place] [facility] [address] [id number] [place] [address] Dec, [facility] [place] [facility] [address] [id number] [place] [address] Dec, [facility] [place] [facility] [address] [id number] [place] [address] Dec, [facility] [place] [facility] [address] [id number] [place] [address] Dec, [facility] [place] [facility] [address] [id number] [place] [address] Dec, [facility] [place] [facility] [address] [id number] [place] [address] Dec, [facility] [place] [facility] [address] [id number] [place] [address] Dec, [facility] [place] [facility] [address] [id number] [place] [address] Dec, [facility] [place] [facility] [address] [id number] [place] [address] Oct, [facility] [place] [facility] [address] [id number] [place] [address] 30 Oct, 2013 [facility] [address] [id number] [place] [address] Oct, [facility] [address] [id number] [place] [address] Oct, [facility] [address] [id number] [place] [address] Oct, [facility] [address] [id number] [place] [address] Oct, [facility] [address] [id number] [place] [address] Oct, [facility] [address] [id number] [place] [address] Oct, [facility] [address] [id number] [place] [address] Oct, [facility] [address] [id number] [place] [address] Oct, [facility] [address] [id number] [place] [address] Oct, [facility] [address] [id number] [place] [address] Oct, [facility] [address] [id number] [place] [address] Oct, [facility] [address] [id number] [place] [address] Oct, [facility] [place] [facility] [address] [id number] [place] [address] Sep, [facility] [place] [facility] [address] [id number] [place] [address] 5[address] Sep, [facility] [address] [id number] [place] [address] 45[address] Sep, [facility] [address] [id number] [place] [address] 7658 30 Sep, 2013 [facility] [place] [facility] [address] [id number] [place] [address] Sep, [facility] [place] [facility] [address] [id number] [place] [address] 3942 Sep, [facility] [place] [facility] [address] [id number] [place] [address] 9475 Sep, [facility] [place] [facility] [address] [id number] [place] [address] 47[address] Sep, [facility] [place] [facility] [address] [id number] [place] [address] 1184 Sep, [facility] [place] [facility] [address] [id number] [place] [address] 7[address] Sep, [facility] [place] [facility] [address] [id number] [place] [address]- 1236 16 Sep, 2013 [facility] [place] [facility] [address] [id number] [place] [address]- 6927 16 Sep, 2013 [facility] [place] [facility] [address] [id number] [place] [address] 1257 Sep, [facility] [place] [facility] [address] [id number] [place] [address]- 6687 13 Sep, 2013 [facility] [place] [facility] [address] [id number] [place] [address]- 0513 10 Sep, 2013 [facility] [place] [facility] [address] [id number] [place] [address]- 2196 10 Sep, 2013 [facility] [place] [facility] [address] [id number] [place] [address]- 2913 02 Sep, 2013 [facility] [place] [facility] [address] [id number] [place] [address]- 9314 02 Sep, 2013 [facility] [place] [facility] [address] [id number] [place] [address]- 8532 15 Aug, 2013 [facility] [address] [id number] [place] [address]- 1503 15 Aug, 2013 [facility] [place] [facility] [address] [id number] [place] [address]- 1562 16 Jul, 2013 [facility] [place] [facility] [address] [id number] [place] [address]- 3245 16 Jul, 2013 [facility] [place] [facility] [address] [id number] [place] [address]- 9410 14 Jul, 2013 [facility] [place] [facility] [address] [id number] [place] [address]- 2012 14 Jul, 2013 [facility] [place] [facility] [address] [id number] [place] [address]- 9573 08 Jul, 2013 [facility] [place] [facility] [address] [id number] [address] 20 Jul, 2012 [facility] [place] [facility] [address] [id number] [place] [address]- 7290 19 Sep, 2012 [facility] [place] [facility] [address] [id number] [place] [address]- 0398 13 Jul, 2012 [facility] [place] [facility] [address] [id number] [place] [address]- 0175 08 Sep, 2012 [facility] [place] [facility] [address] [id number] [place] [address]- 8468 06 Sep, 2012 [facility] [place] [facility] [address] [id number], [place] [address] 25[address] 06 Sep, 2012 [facility] [place] [facility] [address] [id number], [place] [address] 7[address] 06 Sep, 2012 [facility] [place] [facility] [address] [id number], [place] [address] 8815 03 Jul, 2012 [facility] [place] [facility] [address] [id number], [place] [address]- 5675 29 May, 2013 [facility] [place] [facility] [address] [id number] [place] [address]- 1711 May, [facility] [place] [facility] [address] [id number] [place] [address]- 3532 May, [facility] [place] [facility] [address] [id number] [place] [address]- 7273 May, [facility] [place] [facility] [address] [id number] [place] [address]- 5014 Apr, [facility] [place] [facility] [address] [id number] [place] [address]- 0260 Apr, [facility] [place] [facility] [address] [id number] [place] [address]- 8765 Apr, [facility] [place] [facility] [address] [id number] [place] [address]- 1379 Mar, [facility] [place] [facility] [address] [id number] [place] [address]- 7802 Mar, [facility] [place] [facility] [address] [id number] [place] [address]- 7507 Mar, [facility] [place] [facility] [address] [id number] [place] [address]- 2838 Mar, [facility] [place] [facility] [address] [id number] [place] [address] 5910 February, [facility] [place] [facility] [address] [id number] [place] [address]- 2831 February, [facility] [place] [facility] [address] [id number] [place] [address]- 9210 Jan, [facility] [place] [facility] [address] [id number] [place] [address]- 9530 Dec, [facility] [place] [facility] [address] [id number] [place] [address]- 9563 Dec, [facility] [place] [facility] [address] [id number] [place] [address]- 5928 05 Dec, 2012 [facility] [address] [id number] [place] [address]- 5738 05 Dec, 2012 [facility] [address] [id number] [place] [address]- 2332 28 Dec, 2012 [facility] [address] [facility] [id number] [place] [address]- 3645 27 Dec, 2012 [facility] [address] [id number] [place] [address]- 5801 Dec, [facility] [address] [id number] [place] [address]- 6923 Dec, [facility] [address] [facility] [id number] [place] [address]- 3738 22 Dec, 2012 [facility] [address] [facility] [id number] [place] [address]- 7443 15 Dec, 2012 [facility] [address] [facility] [id number] [place] [address]- 5208 14 Dec, 2012 [facility] [address] [facility] [id number] [place] [address]- 2887 Oct, [facility] [address] [facility] [id number] [place] [address]- 8026 14 Oct, 2012 [facility] [address] [facility] [id number] [place] [address]- 0344 09 Oct, 2012 [facility] [place] [facility] [address] [facility] [id number], [place] [address] Oct, [facility] [place] [facility] [address] [id number] [place] [address]- 4165 13 Sep, 2012 [facility] [place] [facility] [address] [facility] [id number] [place] [address]- 9967 13 Sep, 2012 [facility] [place] [facility] [address] [facility] [id number] [place] [address]- 9939 12 Sep, 2012 [facility] [place] [facility] [address] [id number] [place] [address]- 5387 Sep, [facility] [place] [facility] [address] [id number] [place] [address]- 5946 Sep, [facility] [place] [facility] [address] [id number] [place] [address]- 2546 Sep, [facility] [place] [facility] [address] [id number] [place] [address]- 2776 Aug, [facility] [place] [facility] [address] [id number] [place] [address]- 1542 Aug, [facility] [place] [facility] [address] [id number] [place] [address]- 5288 Aug, [facility] [place] [facility] [address] [id number] [place] [address]- 3694 Aug, [facility] [place] [facility] [address] [id number] [place] [address]- 0208 Aug, [facility] [place] [facility] [address] [id number] [place] [address]- 7653 Aug, [facility] [place] [facility] [address] [id number] [place] [address]- 6228 Jul, [facility] [place] [facility] [address] [facility] [id number] [place] [address]- 1089 Jul, [facility] [place] [facility] [address] [id number] [place] [address]- 0121 Jul, [facility] [place] [facility] [address] [id number] [place] [address]- 2543 Jul, [facility] [place] [facility] [address] [id number] [place] [address]- 8168 Jul, [facility] [place] [facility] [address] [id number] [place] [address]- 6816 Jul, [facility] [place] [facility] [address] [id number] [place] [address]- 0497 27 Jul, 2012 [facility] [place] [facility] [address] [id number] [place] [address]- 7551 21 Jul, 2012 [facility] [place] [facility] [address] [id number] [place] [address]- 2116 20 Jul, 2012 [facility] [place] [facility] [address] [id number] [place] [address]- 9916 Jul, [facility] [place] [facility] [address] [id number] [place] [address]- 6295 Jul, [facility] [place] [facility] [address] [id number] [place] [address]- 4761 May, [facility] [place] [facility] [address] [id number] [place] [address]- 9983 May, [facility] [place] [facility] [address] [id number] [place] [address]- 2920 May, [facility] [place] [facility] [address] [id number] [place] [address]- 2813 May, [facility] [place] [facility] [address] [id number] [place] [address]- 4622 Apr, [facility] [place] [facility] [address] [id number] [place] [address]- 4243 Apr, [facility] [place] [facility] [address] [id number] [place] [address]- 5079 Apr, [facility] [place] [facility] [address] [id number] [place] [address]- 1253 Apr, [facility] [place] [facility] [address] [id number] [place] [address]- 0713 Apr, [facility] [place] [facility] [address] [id number] [place] [address]- 0199 Apr, [facility] [place] [facility] [address] [id number] [place] [address]- 1687 Apr, [facility] [place] [facility] [address] [id number] [place] [address]- 2295 09 Apr, 2012 [facility] [place] [facility] [address] [id number] [place] [address]- 1082 28 Mar, 2012 [facility] [place] [facility] [address] [id number] [place] [address]- 8576 27 Mar, 2012 [facility] [place] [facility] [address] [id number] [place] [address]- 6150 20 Mar, 2012 [facility] [place] [facility] [address] [id number] [place] [address]- 4556 15 Mar, 2012 [facility] [place] [facility] [address] [id number] [place] [address]- 9656 14 Mar, 2012 [facility] [place] [facility] [address] [id number] [place] [address]- 6492 12 Mar, 2012 [facility] [place] [facility] [address] [id number] [place] [address]- 4002 12 Mar, 2012 [facility] [place] [facility] [address] [id number] [place] [address]- 0206 Mar, [facility] [place] [facility] [address] [id number] [place] [address]- 7022 Mar, [facility] [place] [facility] [address] [id number] [place] [address]- 7757 February, [facility] [place] [facility] [address] [id number] [place] [address]- 5506 February, [facility] [place] [facility] [address] [id number] [place] [address]- 0092 February, [facility] [place] [facility] [address] [id number] [place] [address]- 1646 February, [facility] [place] [facility] [address] [id number] [place] [address]- 7498 13 Jan, 2012 [facility] [place] [facility] [address] [id number] [place] [address]- 7156 Jan, [facility] [place] [facility] [address] [id number] [place] [address]- 4165 28 Dec, 2011 [facility] [place] [facility] [address] [id number] [place] [address]- 2826 15 Dec, 2011 [facility] [place] [facility] [address] [id number] [place] [address]- 9936 14 Dec, 2011 [facility] [place] [facility] [address] [id number] [place] [address]- 3066 07 Dec, 2011 [facility] [place] [facility] [address] [id number] [place] [address]- 2310 28 Dec, 2011 [facility] [place] [facility] [address] [id number] [place] [address]- 3696 27 Dec, 2011 [facility] [place] [facility] [address] [id number] [place] [address]- 5316 Dec, [facility] [place] [facility] [address] [id number] [place] [address]- 8678 Dec, [facility] [place] [facility] [address] [id number] [place] [address]- 9620 Dec, [facility] [place] [facility] [address] [id number] [place] [address]- 4672 Dec, [facility] [place] [facility] [address] [id number] [place] [address]- 2674 Dec, [facility] [place] [facility] [address] [id number] [place] [address]- 6236 Dec, [facility] [place] [facility] [address] [id number] [place] [address]- 0826 Oct, [facility] [place] [facility] [address] [id number] [place] [address] Oct, [facility] [place] [facility] [address] [id number] [place] [address]- 9397 Oct, [facility] [place] [facility] [address] [id number] [place] [address]- 2503 Oct, [facility] [address] [id number] [place] [address]- 8088 Oct, [facility] [place] [facility] [address] [id number] [place] [address]- 7280 Oct, [facility] [address] [id number] [place] [address]- 8967 16 Oct, 2011 [facility] [place] [facility] [address] [id number] [place] [address]- 9465 Oct, [facility] [address] [id number] [place] [address]- 1704 Sep, [facility] [place] [facility] [address] [id number] [place] [address]- 3876 Sep, [facility] [address] [id number] [place] [address]- 9336 Sep, [facility] [place] [facility] [address] [id number] [place] [address]- 1182 Aug, [facility] [place] [facility] [address] [id number] [place] [address]- 1105 Aug, [facility] [place] [facility] [address] [facility] [id number] [place] [address]- 5471 16 Aug, 2011 [facility] [place] [facility] [address] [id number] [place] [address]- 0654 14 Aug, 2011 [facility] [place] [facility] [address] [id number], [place] [address]- 0996 Aug, [facility] [place] [facility] [address] [id number] [place] [address]- 1278 19 Jul, 2011 [facility] [place] [facility] [address] [id number] [place] [address]- 1747 13 Jul, 2011 [facility] [place] [facility] [address] [id number], [place] [address]- 3013 May, [facility] [address] [facility] [id number], [place] [address]- 3283 Dec, [facility] [address] [facility] [id number], [place] [address]- 3872 Oct, [facility] [address] [facility] [id number], [place] [address]- 5221 Sep, [facility] [address] [facility] [id number], [place] [address]- 8840 Sep, [facility] [address] [facility] [id number], [place] [address]- 1770 Sep, IMMUNIZATIONS No Known Immunizations SOCIAL HISTORY Never Assessed REASON FOR VISIT intake- Mildred REGALADO PLAN OF CARE Activity Details Follow Up 4 Weeks Reason: f/u VITAL SIGNS Height 65 in 2017-06-20 Weight 246.2 lbs 2017-06-20 Heart Rate 78 bpm 2017-06-20 Respiratory Rate 20 2017-06-20 BMI 40.97 kg/m2 2017-06-20 Blood pressure systolic 122 mmHg 2017-06-20 Blood pressure diastolic 76 mmHg 2017-06-20 MEDICATIONS Medication Instructions Dosage Frequency Start Date End Date Duration Status Escitalopram Oxalate 20 MG Orally Once a day 1 tablet 24h 30 days Active Triamcinolone Acetonide 0.1 % Externally to ears Twice a day 1 application to affected area 12h Sep, Active NovoLog Flexpen 100 UNIT/ML Subcutaneous 3 times a day 12 u 8h Sep, Active Gabapentin 100 mg Orally 2 times a day as needed for anxiety 1 capsule May, 30 days Active Protonix 40 mg Orally Once a day 1 tablet 24h Active Lisinopril 10 MG TAKE ONE TABLET BY MOUTH ONCE DAILY (MUST HAVE APPOINTMENT FOR ADDITIONAL REFILLS) 30 Active Insulin Detemir 100 UNIT/ML Subcutaneous twice a day 30 units 12h Sep, Active Multivitamin Adult - Orally, bubble pack for [facility] Once a day 1 tablet 24h Active Invokana 100 MG TAKE ONE TABLET BY MOUTH DAILY 30 Active Estradiol 0.5 MG 1 tablet Active Adderall 30 MG Orally Once a day in the morning 1 tablet May, 28 days Active Tramadol HCl 50 mg Orally every 6 hrs 1 tablet as needed 6h Jul, Active BD Insulin Syringe 30G X 1/2 subcutaneously 4 times a day use with insulin 6h May, Active Alprazolam 0.5 MG Orally once a day as needed 1 tablet 30 days Active Promethazine HCl 25 MG Orally every 4-6 hours as needed 1 tablet as needed 5 Active Wellbutrin XL 150 MG Orally Once a day 3 in the morning 24h 30 days Active Augmentin 875-125 MG Orally every 12 hrs 1 tablet 12h May,May 10 day(s) Active RESULTS No Results PROCEDURES Procedure Date Ordered Result Body Site ON LICENSE OF [facility] VISIT ESTABLISHED PATIENT Jun 20, 2017 INSTRUCTIONS MEDICATIONS ADMINISTERED No Known Medications [...] veinous reflux Surgical History Left Knee SOA-Dr. Melendrez-[facility] 05/19/16 Surgical History Colonoscopy- Dr Castanon 01/26/2017 Hospitalization History surgeries Hospitalization History Left Knee SOA--Dr. Melendrez--[facility] Hospitalization History Septic shock, UTI-[facility] 07/27/17 Hospitalization History Multiple falls, hyperglycemia, sepsis 07/2017 Hospitalization History Alcoholism, depression, DM, Falls-[facility] 08/23/17 Hospitalization History COPD exacerbation-[facility] 11/25/17 Hospitalization History COPD exacerbation-[facility] 11/28/17
--- OUTSIDE RECORDS SUMMARY | 2018-05-10 03:29 | XMS REPORT ---
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 Active 327226273 Problem Psoriatic arthritis L40.50 Active 544415595 Problem Psychophysiological insomnia F51.04 Active 32774132 Problem Other specified 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 Active 632082561 Problem Obesity (BMI 30-39.9) E66.9 Active 964237024 Problem Major depressive disorder, recurrent, moderate F33.1 Active 64398513 Problem Essential hypertension I10 Active 83441717 Problem Type 2 diabetes mellitus with hyperglycemia E11.65 Active [id number] Problem Alcoholism F10.20 Active 6323794 Problem Frequent falls R29.6 Active 292149260 Problem Benzodiazepine abuse F13.10 Active 081823339 Problem PTSD (post-traumatic stress disorder) F43.10 Active 82653421 Problem Eating disorder F50.9 Active 62737989 Problem Attention-deficit hyperactivity disorder, combined type F90.2 Active 16960594 Problem COPD exacerbation J44.1 Active 697271721 Problem Anxiety F41.9 Active 57529932 Problem Decubitus ulcer of left buttock, stage 2 L89.322 Active 607683138 Problem BMI 40.0-44.9, adult Z68.41 Active 018662888 Problem Alcohol abuse F10.10 Active 02616987 Problem Pneumonia due to methicillin resistant Staphylococcus aureus, unspecified laterality, unspecified part of lung J15.212 Active 547203788381767 Problem Type 2 diabetes mellitus with unspecified complications E11.8 Active 92190621 Problem Attention-deficit hyperactivity disorder, predominantly hyperactive type F90.1 Active 338689139 Problem Type 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 Active 83153494 Problem Ulcer of right foot, unspecified ulcer stage L97.519 Active 39366455 Problem Attention deficit R41.840 Active 09193165 Problem Mental disorder, not otherwise specified F99 Active 91414822 Problem Insomnia due to other mental disorder F51.05 Active 79820390 ALLERGIES No Information ENCOUNTERS Encounter Location Date Diagnosis [facility] [id number], [place] [address] Mar, [facility] [id number] [place] [address] 32885- 0095 Mar, [facility] [id number] [place] [address] 12745- 6979 February, Yeast infection B37.9 [facility] [id number] [place] [address] 23084- 0548 February, [facility] [id number] [place] [address] 38556- 8306 Jan, [facility] [id number] [place] [address] 73152- 8188 Dec, Major depressive disorder, recurrent episode, unspecified severity F33.9 ; Generalized anxiety disorder F41.1 and Eating disorder F50.9 [facility] [address] [address] Dec, [facility] [id number] [place] [address] 25190- 5588 Dec, [facility] [id number] [place] [address] 03235- 8109 Dec, [facility] [id number] [place] [address] 81440- 3247 Dec, Increased urinary frequency R35.0 ; Frequent falls R29.6 ; Decubitus ulcer of left buttock, stage 2 L89.322 ; Benzodiazepine abuse F13.10 ; BMI 40.0-44.9, adult Z68.41 and Yeast infection B37.9 [facility] [address] [address] Dec, [facility] [id number] [place] [address] 90398- 8972 Dec, [facility] [id number] [place] [address] 49152- 1356 Dec, Increased urinary frequency R35.0 [facility] [id number] [place] [address] 75029- 8016 Dec, Increased urinary frequency R35.0 [facility] [id number] [place] [address] 94805- 7587 Dec, Generalized anxiety disorder F41.1 ; Major depressive disorder, recurrent, moderate F33.1 and Psychophysiological insomnia F51.04 [facility] [id number] [place] [address] 36580- 2262 Dec, BMI 40.0-44.9, adult Z68.41 ; Type 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 ; Pneumonia due to methicillin resistant Staphylococcus aureus, unspecified laterality, unspecified part of lung J15.212 and COPD exacerbation J44.1 [facility] [address] [address] Dec, [facility] [id number] [place] [address] [id number] Dec, [facility] [id number] [place] [address] [id number] Oct, [facility] [id number], [place] [address] Oct, Frequency of urination R35.0 ; Bronchitis J40 and BMI 40.0- 44.9, adult Z68.41 [facility] [id number] [id number] Oct, [facility] [id number] [place] [address] 40457- 6624 Oct, [facility] [id number] [place] [address] 01269- 5469 Oct, BMI 40.0-44.9, adult Z68.41 ; Type 2 diabetes mellitus with hyperglycemia E11.65 ; Essential hypertension I10 ; Vaginal yeast infection B37.3 ; Anxiety F41.9 and Alcoholism F10.20 [facility] [id number] [place] [address] 19471- 3331 Oct, [facility] [id number] [place] [address] 15265- 7766 Oct, [facility] [id number] [place] [address] 18978- 3244 Sep, [facility] [id number] [place] [address] 22466- 7809 Sep, Major depressive disorder, recurrent episode, unspecified severity F33.9 ; Generalized anxiety disorder F41.1 and Eating disorder F50.9 [facility] [address], [place] [address] Sep, Major depressive disorder, recurrent, moderate F33.1 ; Type 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 ; Alcohol abuse F10.10 ; Obesity (BMI 30-39.9) E66.9 and Psychophysiological insomnia F51.04 [facility] [id number] [place] [address] 50552- 5661 06 Sep, 2017 Diabetes E11.9 and Generalized anxiety disorder F41.1 [facility] [id number] [place] [address] 82625- 0178 05 Sep, 2017 Major depressive disorder, recurrent episode, unspecified severity F33.9 ; Generalized anxiety disorder F41.1 and Eating disorder F50.9 [id number] [address] 4[address] Sep, [facility] [id number] [place] [address] 43089- 4275 Aug, [facility] [id number] [place] [address] 28520- 4073 Aug, Insomnia due to other mental disorder F51.05 ; Mental disorder, not otherwise specified F99 ; Attention deficit R41.840 ; Ulcer of right foot, unspecified ulcer stage L97.519 ; Cough R05 ; Diabetes E11.9 ; Sore in mouth K13.79 ; Generalized anxiety disorder F41.1 ; Major depressive disorder , recurrent episode, unspecified severity F33.9 and BMI 40.0-44.9, adult Z68.41 [facility] [id number] [place] [address] 05325- 6725 Aug, [facility] [id number] [place] [address] 28153- 2230 Aug, [facility] [id number] [place] [address] 29097- 0620 Aug, [facility] [id number] [place] [address] 66863- 6711 Aug, [facility] [id number] [place] [address] 53542- 5774 Aug, Diabetes E11.9 [facility] [address] [place] [id number] Aug, Falling R29.6 ; Alcohol abuse F10.10 ; Major depressive disorder, recurrent episode, unspecified severity F33.9 ; 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 I10 ; Type 2 diabetes mellitus with unspecified complications E11.8 and 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 [facility] [id number] [place] [address] [id number] Aug, 2017 [address] [facility] [employer] [facility] [address] [place] [id number] Aug, Alcohol abuse F10.10 ; Major depressive disorder, recurrent episode, unspecified severity F33.9 ; Generalized anxiety disorder F41.1 ; retirement 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 ; Psoriatic arthritis L40.50 and Diabetes E11.9 [facility] [id number] [place] [address] [id number] Aug, [facility] [id number] [id number] Jul, [facility] [id number] [place] [address] 82279- 0587 Jul, [facility] [id number] [place] [address] 79539- 6743 Jul, Generalized anxiety disorder F41.1 [facility] [id number] [place] [address] 75002- 1174 Jul, [facility] [id number] [place] [address] 17315- 1217 Jul, [facility] [id number] [place] [address] 91704- 2853 Jul, Generalized anxiety disorder F41.1 ; Major depressive disorder, recurrent episode, unspecified severity F33.9 ; PTSD (post-traumatic stress disorder) F43.10 ; Eating disorder F50.9 and Attention-deficit hyperactivity disorder, predominantly hyperactive type F90.1 [facility] [address], [place] [address] 26[address] Jul, [facility] [id number], [place] [address] 9387 Jul, [facility] [id number], [place] [address] 62[address] Jul, retirement 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 ; Type 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 ; Urinary tract infection, site not specified N39.0 ; Sepsis, unspecified organism A41.9 and Essential hypertension I10 [facility] [id number] [id number] Jul, [facility] [id number], [place] [address] 27 Jul, 2017 [facility] [id number] [place] [address] 49794- 6475 Jul, Generalized anxiety disorder F41.1 [facility] [id number] [place] [address] 79412- 1948 15 Jul, 2017 [facility] [id number] [place] [address] 38273- 5824 Jul, Generalized anxiety disorder F41.1 [facility] [id number] [place] [address] 45747- 0993 May, Generalized anxiety disorder F41.1 ; Major depressive disorder, recurrent episode, unspecified severity F33.9 ; PTSD (post-traumatic stress disorder) F43.10 ; Eating disorder F50.9 and Attention-deficit hyperactivity disorder, predominantly hyperactive type F90.1 [facility] [id number] [place] [address] 58835- 5528 May, Diabetes E11.9 [facility] [id number] [place] [address] 31507 -4255 May, Acute non-recurrent maxillary sinusitis J01.00 and Diabetes E11.9 [facility] [address] [address]- 5513 May, [facility] [id number] [place] [address] 81039- 9085 May, [facility] [id number] [place] [address] 78846- 9100 May, Generalized anxiety disorder F41.1 [facility] [id number] [place] [address] 89767- 7074 Apr, [facility] [address], [place] [address]- 3549 Apr, [facility] [id number] [place] [address] 60982- 1972 Apr, [facility] [id number] [place] [address] 41858- 8957 Apr, Generalized anxiety disorder F41.1 ; Major depressive disorder, recurrent episode, unspecified severity F33.9 ; PTSD (post-traumatic stress disorder) F43.10 ; Eating disorder F50.9 and Attention-deficit hyperactivity disorder, predominantly hyperactive type F90.1 [id number] [place] [address] 73175- 4075 Apr, Major depressive disorder, recurrent, moderate F33.1 [id number] [place] [address] 30553- 1055 Mar, Diabetes E11.9 [id number] [place] [address] 12401- 5369 Mar, Attention-deficit hyperactivity disorder, combined type F90.2 [id number] [place] [address] 75773- 8453 Mar, [id number] [place] [address] 34951- 7116 Mar, Diabetes E11.9 [id number] [place] [address] 78759- 9986 Mar, 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 ; Psoriatic arthritis L40.50 ; Other specified 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 and 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 I10 [id number] [place] [address] 00357- 9385 February, Back pain M54.9 [id number] [place] [address] 18286- 0300 February, Attention-deficit hyperactivity disorder, combined type F90.2 [id number] [place] [address] 37292- 4066 February, Major depressive disorder, recurrent episode, unspecified severity F33.9 and Generalized anxiety disorder F41.1 [id number] [place] [address] 06903- 2138 Jan, Attention-deficit hyperactivity disorder, combined type F90.2 [facility] [id number] [place] [address] 33473- 0802 Jan, Major depressive disorder, recurrent, moderate F33.1 ; Generalized anxiety disorder F41.1 and Attention-deficit hyperactivity disorder , combined type F90.2 [facility] [id number] [place] [address] 61185- 6834 Dec, Major depressive disorder, recurrent episode, unspecified severity F33.9 ; Generalized anxiety disorder F41.1 and Attention-deficit hyperactivity disorder, predominantly hyperactive type F90.1 [facility] [id number] [place] [address] 12463- 2520 Dec, Major depressive disorder, recurrent episode, unspecified severity F33.9 and Generalized anxiety disorder F41.1 [facility] [id number] [place] [address] 14777- 1726 Dec, [facility] [id number] [place] [address] 36499- 5062 Dec, [facility] [id number] [place] [address] 28049- 6981 Dec, Major depressive disorder, recurrent episode, unspecified severity F33.9 and Generalized anxiety disorder F41.1 [facility] [id number] [place] [address] 63550- 6049 Dec, Back pain M54.9 [facility] [id number] [place] [address] 46191- 0093 Dec, Eustachian tube dysfunction, right H69.81 and Arthritis M19.90 [facility] [id number] [place] [address] 56839- 9845 Dec, [facility] [id number] [place] [address] 94205- 3537 Dec, [facility] [address] [place] [address]- 9033 07 Dec, 2016 Major depressive disorder, recurrent episode, unspecified severity F33.9 [facility] [id number] [place] [address] 08193- 7926 Oct, [facility] [id number] [place] [address] 97112 -0436 Oct, Acute non-recurrent pansinusitis J01.40 and Sore throat J02.9 [facility] [id number] [place] [address] 59426- 6553 Oct, Major depressive disorder, recurrent episode, unspecified severity F33.9 [facility] [id number] [place] [address] 74225- 7058 Oct, Major depressive disorder, recurrent episode, unspecified severity F33.9 and Generalized anxiety disorder F41.1 [facility] [id number] [place] [address] 64526- 1132 Sep, [facility] [id number] [place] [address] 35271- 8405 Sep, Major depressive disorder, recurrent episode, unspecified severity F33.9 [facility] [id number] [place] [address] 17988- 7404 Sep, Major depressive disorder, recurrent episode, unspecified severity F33.9 [facility] [id number] [place] [address] 31882 -3197 Sep, Sore throat J02.9 [facility] [id number] [place] [address] 36140- 1781 15 Sep, 2016 Generalized anxiety disorder F41.1 ; Major depressive disorder, recurrent episode, unspecified severity F33.9 and Attention-deficit hyperactivity disorder, predominantly hyperactive type F90.1 [facility] [address] [place] [address] 16170- 7393 08 Sep, 2016 Major depressive disorder, recurrent episode, unspecified severity F33.9 and Generalized anxiety disorder F41.1 [facility] [id number] [place] [address] 79984- 6464 07 Sep, 2016 Psoriatic arthritis L40.50 [facility] [id number] [place] [address] 03814- 2733 02 Sep, 2016 Diabetes E11.9 ; 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 ; Back pain M54.9 and Encounter for immunization Z23 [facility] [id number] [place] [address] 33388- 1685 Aug, [facility] [id number] [place] [address] 79731- 9675 Aug, [facility] [id number] [place] [address] 19711- 3975 Jul, Major depressive disorder, recurrent episode, unspecified severity F33.9 ; Attention-deficit hyperactivity disorder, predominantly hyperactive type F90.1 and Generalized anxiety disorder F41.1 [facility] [id number] [place] [address] 84712- 1742 Jul, [facility] [id number] [place] [address] 16007- 1019 22 Jul, 2016 Major depressive disorder, recurrent, in partial remission F33.41 and Generalized anxiety disorder F41.1 [facility] [id number] [place] [address] 65103- 5199 Jul, [facility] [id number] [place] [address] 77698- 6889 19 Jul, 2016 [facility] [id number] [place] [address] 91679- 5908 13 Jul, 2016 [facility] [id number] [place] [address] 12327- 1337 Jul, [facility] [id number] [place] [address] 97306- 1407 12 Jul, 2016 Diabetes E11.9 [facility] [id number] [place] [address] 74812- 7883 May, [facility] [address], [place] [address]- 0470 May, [facility] [id number] [place] [address] 32815- 3857 May, [facility] [id number] [place] [address] 48239- 9745 May, Major depressive disorder, recurrent episode, unspecified severity F33.9 ; Generalized anxiety disorder F41.1 and Attention-deficit hyperactivity disorder, predominantly hyperactive type F90.1 [facility] [id number] [place] [address] 98264- 4475 May, [facility] [id number] [place] [address] 21075- 5488 May, Diabetes E11.9 [facility] [id number] [place] [address] 14659- 7552 May, [facility] [id number] [place] [address] 15780- 2737 May, [facility] [address] [place] [id number] May, Diabetes E11.9 ; Generalized anxiety disorder F41.1 and Nausea R11.0 [facility] [id number] [place] [address] 22103- 0054 May, Psoriatic arthritis L40.50 and Candidiasis of female genitalia B37.3 [facility] [address] [address]- 3208 May, [facility] [id number] [place] [address] 93465- 3286 Apr, [facility] [id number] [place] [address] 77139- 7979 Apr, [facility] [id number] [place] [address] 02746- 8587 Apr, [facility] [address] [address]- 0556 Apr, Generalized anxiety disorder F41.1 ; Major depressive disorder, recurrent episode, unspecified severity F33.9 and Attention-deficit hyperactivity disorder, predominantly hyperactive type F90.1 [facility] [address] [address]- 5030 Apr, [facility] [id number] [place] [address] 49583- 9441 Apr, [facility] [id number] [place] [address] 71561- 2742 Apr, [facility] [id number] [place] [address] 00554- 8038 Apr, [facility] [id number] [place] [address] 98483- 0493 Apr, [facility] [id number] [place] [address] 11487- 8153 Mar, Attention-deficit hyperactivity disorder, predominantly hyperactive type F90.1 [facility] [id number] [place] [address] 45958- 4366 Mar, [facility] [id number] [place] [address] 79139- 2803 Mar, [facility] [address] [address]- 0263 Mar, Major depressive disorder, recurrent episode, unspecified severity F33.9 and Generalized anxiety disorder F41.1 [facility] [id number] [place] [address] 11638- 7342 February, Diabetes E11.9 [facility] [address] [address] February, OME (otitis media with effusion), bilateral H65.93 [facility] [address] [place] [address] 87728- 4601 February, Back pain M54.9 [facility] [address] [address]- 7143 February, [facility] [id number] [place] [address] 89897- 6383 February, Nausea R11.0 [facility] [id number] [place] [address] 19740- 5705 February, [facility] [id number] [place] [address] 73634- 5499 February, Pre-op evaluation Z01.818 ; Type 2 diabetes mellitus with hyperglycemia E11.65 and 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 [facility] [id number] [place] [phone] February, [facility] [id number] [place] [phone] February, Right otitis externa H60.91 [facility] [id number] [place] [address] [phone] Jan, [facility] [facility] [id number] [place] [address] 77383- 5089 Jan, Psoriatic arthritis L40.50 and Arthralgia, unspecified joint M25.50 [place] [address], [place] [address] Jan, Major depressive disorder, recurrent episode, unspecified severity F33.9 ; Generalized anxiety disorder F41.1 and Attention-deficit hyperactivity disorder, unspecified type F90.9 [facility] [address], [place] [address] Jan, [place] [id number] [place] [address] 32084- 9178 Jan, [facility] [id number] [place] [address] 39494- 7727 Jan, Major depressive disorder, recurrent episode, unspecified severity F33.9 and Generalized anxiety disorder F41.1 [facility] [address], [place] [address] 30[address] Jan, [facility] [id number] [place] [address] 43537- 5513 Dec, 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 I10 and Arthritis M19.90 [facility] [id number] [place] [address] 00718- 9542 Dec, [facility] [id number] [place] [address] 74884- 0199 Dec, [facility] [id number] [place] [address] 08269- 1797 Dec, [facility] [id number] [place] [address] 48478- 3331 Dec, [facility] [id number] [place] [address] 95000- 6816 Dec, [facility] [id number] [place] [address] 92560- 2748 Dec, Major depressive disorder, recurrent episode, unspecified severity F33.9 and Generalized anxiety disorder F41.1 [facility] [id number] [place] [address] 22906- 3877 Dec, Diabetes E11.9 ; Back pain M54.9 ; Thrush B37.0 and 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 I10 [facility] [id number] [place] [address] 65522- 0455 18 Dec, 2015 Major depressive disorder, recurrent episode, unspecified severity F33.9 and Generalized anxiety disorder F41.1 [facility] [id number] [place] [address] 70846- 4376 04 Dec, 2015 Major depressive disorder, recurrent episode, in partial or unspecified remission 296.35 ; Major depressive disorder, recurrent episode, unspecified severity F33.9 and Generalized anxiety disorder 300.02 [facility] [id number] [place] [address] 98799- 0202 Dec, [facility] [id number] [place] [address] 51171- 6931 Oct, [facility] [id number] [place] [address] 19083- 4204 Oct, [facility] [id number] [place] [address] 76054- 9208 Oct, [facility] [id number] [place] [address] 87575- 2231 Oct, [facility] [id number] [place] [address] 45130- 8474 Oct, Major depressive disorder, recurrent, moderate F33.1 and Attention-deficit hyperactivity disorder, unspecified type F90.9 [place] [id number] [place] [address] 36850- 7508 Oct, 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 [place] [id number] [place] [address] 75457- 0634 Oct, [place] [id number] [place] [address] 69453- 9433 Oct, [facility] [id number] [place] [address] 94380 -2817 Sep, URI (upper respiratory infection) J06.9 ; Psoriasis L40.9 ; Cough R05 and Tobacco abuse Z72.0 [facility] [id number] [place] [address] 59523- 5173 Sep, Major depressive disorder, recurrent episode, in partial or unspecified remission 296.35 ; Generalized anxiety disorder 300.02 and ADHD, 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 [facility] [id number] [place] [address] 86808 -9980 Sep, Acute sinusitis, unspecified J01.90 [facility] [id number] [place] [address] 41694- 0627 Sep, [facility] [address], [place] [address]- 9717 Sep, Major depressive disorder, recurrent, moderate F33.1 ; Generalized anxiety disorder F41.1 and Attention-deficit hyperactivity disorder , combined type F90.2 [facility] [id number] [place] [address] 68446- 9433 Sep, [facility] [id number] [place] [address] 29103- 2677 Aug, [facility] [id number] [place] [address] 98542- 0211 Aug, [facility] [id number] [place] [address] 04047- 0757 Aug, Diabetes E11.9 and Anxiety F41.9 [facility] [id number] [place] [address] 20632- 8381 Aug, Major depressive disorder, recurrent episode, unspecified severity F33.9 and Generalized anxiety disorder F41.1 [facility] [id number] [place] [address] 66642- 8620 Aug, [facility] [id number] [place] [address] 03656- 8673 Jul, [facility] [id number] [place] [address] 75713- 0047 Jul, [facility] [id number] [place] [address] 54430- 0977 Jul, [facility] [id number] [place] [address] 57064- 3687 Jul, [facility] [id number] [place] [address] 25298- 4399 Jul, Major depressive disorder, recurrent episode, in partial or unspecified remission 296.35 ; Generalized anxiety disorder 300.02 and ADHD, 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 [facility] [id number] [address]- 6101 Jul, Major depressive disorder, recurrent episode, in partial or unspecified remission 296.35 ; Generalized anxiety disorder 300.02 and ADHD, 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 [facility] [id number] [place] [address] 99871- 4227 Jul, [facility] [id number] [place] [address] 42042- 1934 May, [facility] [id number] [place] [address] 84845- 5814 May, [facility] [id number] [place] [address] 49627- 2826 May, DM w/o complication type II 250.00 ; Dyspepsia 536.8 and PAD (peripheral artery disease) 443.9 [place] [id number] [place] [address] 74259- 7680 May, Major depressive disorder, recurrent episode, moderate 296.32 and Generalized anxiety disorder 300.02 [facility] [id number] [place] [address] 51568- 5223 May, [facility] [id number] [place] [address] 64933- 1599 May, Major depressive disorder, recurrent episode, moderate 296.32 and Generalized anxiety disorder 300.02 [facility] [id number] [place] [address] 38656- 7460 May, [facility] [id number] [place] [address] 99010- 0955 Apr, [facility] [id number] [place] [address] 75682- 7013 Apr, Major depressive disorder, recurrent episode, moderate 296.32 and Generalized anxiety disorder 300.02 [facility] [id number] [place] [address] 07329- 2855 Apr, [facility] [id number] [address]- 5702 Apr, [facility] [id number] [place] [address] 32733- 2128 Apr, Generalized anxiety disorder 300.02 ; ADHD, 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 and Depression, major, recurrent, moderate 296.32 [facility] [address], [place] [address]- 5286 Apr, Major depressive disorder, recurrent episode, moderate 296.32 and Generalized anxiety disorder 300.02 [facility] [address], [place] [address]- 3456 Apr, [facility] [id number] [place] [address] 00670- 5726 Apr, [facility] [id number] [place] [address] 88097- 7339 Mar, [facility] [id number] [place] [address] 15677- 6095 Mar, Major depressive disorder, recurrent episode, moderate 296.32 and Generalized anxiety disorder 300.02 [facility] [id number] [place] [address] 04057- 8725 Mar, ADHD, 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 ; Major depressive disorder, recurrent episode, severe, without mention of psychotic behavior 296.33 and Generalized anxiety disorder 300.02 [facility] [address], [place] [address]- 1014 February, Major depressive disorder, recurrent episode, moderate 296.32 and Generalized anxiety disorder 300.02 [facility] [address] [address]- 3345 February, [facility] [id number] [place] [address] 94168- 6858 February, [facility] [address], [place] [address]- 1730 February, [facility] [id number] [address]- 9273 February, [facility] [id number] 2052 February, DM w/o complication type II 250.00 ; Impacted cerumen 380.4 ; Essential hypertension, benign 401.1 and Irritable colon 564.1 [facility] [id number] [place] [address] 43081- 1078 February, [facility] [address] [facility] [id number] [place] [address], [place] [address]- 5914 February, [facility] [id number] [place] [address], [place] 5413 Jan, [facility] [id number] [place] [address]- 8652 Dec, [facility] [id number] [place] [address], [place] [address]- 4590 Dec, [facility] [address], [place] [address]- 6402 Dec, [facility] [address] [place] [address]- 7238 Dec, [facility] [address], [place] [address]- 9785 Dec, [facility] [address] [place] [address]- 1374 Dec, [facility] [id number] [address]- 9093 Dec, [facility] [address] [place] [address]- 2020 Dec, [facility] [address] [place] [address]- 8486 Dec, [facility] [address], [place] [address]- 0841 Dec, [facility] [place] [facility] [address] [id number] [place] [address]- 2243 Dec, [facility] [place] [facility] [address] [id number] [place] [address]- 6756 Dec, [facility] [place] [facility] [address] [id number] [place] [address]- 5980 Dec, [facility] [place] [facility] [address] [id number] [place] [address]- 9726 Dec, [facility] [place] [facility] [address] [id number] [place] [address]- 2425 Dec, [facility] [place] [facility] [address] [id number] [place] [address]- 5296 Dec, [facility] [place] [facility] [address] [id number] [place] [address]- 0115 Oct, [facility] [place] [facility] [address] [id number], [place] [address]- 9143 Oct, [facility] [place] [facility] [address] [id number] [place] [address]- 0786 Oct, [facility] [place] [facility] [address] [id number] [place] [address]- 8846 Oct, [facility] [place] [facility] [address] [id number] [address]- 4490 Oct, [facility] [place] [facility] [address] [id number], [place] [address]- 1277 Oct, [facility] [place] [facility] [address] [id number] [place] [address]- 0704 Oct, [facility] [place] [facility] [address] [id number] [address]- 5656 Oct, [facility] [place] [facility] [address] [id number] [place] [address]- 7516 Oct, [facility] [place] [facility] [address] [id number] [place] [address]- 7944 Oct, [facility] [place] [facility] [address] [id number] [place] 5958 Oct, [facility] [place] [facility] [address] [id number] [place] [address]- 7466 Sep, [facility] [place] [facility] [address] [id number] [place] [address]- 3643 Sep, [facility] [place] [facility] [address] [id number] [place] [address]- 1229 Sep, [facility] [place] [facility] [address] [id number] [place] [address]- 3612 Sep, [facility] [place] [facility] [address] [id number] [place] [address]- 7246 Sep, [facility] [place] [facility] [address] [id number] [place] [address]- 0913 Sep, [facility] [place] [facility] [address] [id number] [place] [address]- 9096 Sep, [facility] [place] [facility] [address] [id number] [place] [address]- 9677 Sep, [facility] [place] [facility] [address] [id number] [place] [address]- 8460 Aug, [facility] [place] [facility] [address] [id number] [place] [address]- 6251 Aug, [facility] [place] [facility] [address] [id number] [place] [address]- 6232 Aug, [facility] [place] [facility] [address] [id number] [place] [address]- 4755 Aug, [facility] [place] [facility] [address] [id number] [place] [address]- 1515 Aug, [facility] [place] [facility] [address] [id number] [place] [address]- 3903 Aug, [facility] [place] [facility] [address] [id number] [place] [address]- 8765 Aug, [facility] [place] [facility] [address] [id number] [place] [address]- 3254 Aug, [facility] [place] [facility] [address] [id number] [place] [address]- 4180 Aug, [facility] [place] [facility] [address] [id number] [place] [address]- 9474 Aug, [facility] [place] [facility] [address] [id number] [place] [address]- 4122 Aug, [facility] [place] [facility] [address] [id number] [place] [address]- 2419 Aug, [facility] [place] [facility] [address] [id number] [place] [address]- 6249 Aug, [facility] [place] [facility] [address] [id number] [place] [address]- 7813 Aug, [facility] [place] [facility] [address] [id number] [place] [address]- 7922 Jul, [facility] [place] [facility] [address] [id number] [place] [address]- 3353 Jul, [facility] [place] [facility] [address] [id number] [place] [address]- 7268 Jul, [facility] [place] [facility] [address] [id number], [place] [address]- 8248 Jul, [facility] [place] [facility] [address] [id number] [place] [address]- 8585 Jul, [facility] [place] [facility] [address] [id number] [place] [address]- 7395 Jul, [facility] [place] [facility] [address] [id number] [place] [address]- 8987 Jul, [facility] [place] [facility] [address] [id number], [place] [address]- 9948 Jul, [facility] [place] [facility] [address] [id number] [place] [address]- 7543 Jul, [facility] [place] [facility] [address] [id number] [place] [address]- 1993 Jul, [facility] [place] [facility] [address] [id number] [place] [address]- 5810 Jul, [facility] [place] [facility] [address] [id number] [place] [address]- 9649 Jul, [facility] [place] [facility] [address] [id number] [place] [address]- 3404 Jul, [facility] [place] [facility] [address] [id number] [place] [address]- 9698 Jul, [facility] [place] [facility] [address] [id number] [place] [address]- 0426 May, [facility] [place] [facility] [address] [id number] [place] [address]- 7830 May, [facility] [place] [facility] [address] [id number] [place] [address]- 1253 May, [facility] [place] [facility] [address] [id number] [place] [address]- 7535 May, [facility] [place] [facility] [address] [id number] [place] [address]- 5372 May, [facility] [place] [facility] [address] [id number] [place] [address]- 5138 May, [facility] [place] [facility] [address] [id number] [place] [address]- 1737 May, [facility] [place] [facility] [address] [id number] [place] [address]- 5457 May, [facility] [place] [facility] [address] [id number] [place] [address]- 0517 May, [facility] [place] [facility] [address] [id number] [place] [address]- 8395 May, [facility] [place] [facility] [address] [id number] [place] [address]- 9680 May, [facility] [place] [facility] [address] [id number] [place] [address]- 5616 May, [facility] [place] [facility] [address] [id number] [place] [address]- 1342 Apr, [facility] [place] [facility] [address] [id number] [place] [address]- 4091 Apr, [facility] [place] [facility] [address] [id number] [place] [address]- 1952 Apr, [facility] [place] [facility] [address] [id number] [place] [address]- 9170 Apr, [facility] [place] [facility] [address] [id number] [place] [address]- 5321 Apr, [facility] [place] [facility] [address] [id number] [place] [address]- 4000 Apr, [facility] [place] [facility] [address] [id number] [place] [address]- 0709 Mar, [facility] [place] [facility] [address] [id number] [place] [address]- 1365 Mar, [facility] [place] [facility] [address] [id number] [place] [address]- 7945 Mar, [facility] [place] [facility] [address] [id number] [place] [address]- 9650 Mar, [facility] [place] [facility] [address] [id number] [place] [address]- 0235 Mar, [facility] [place] [facility] [address] [id number] [place] [address]- 3090 Mar, [facility] [place] [facility] [address] [id number] [place] [address]- 3026 Mar, [facility] [place] [facility] [address] [id number] [place] [address]- 3229 Mar, [facility] [place] [facility] [address] [id number] [place] [address]- 7928 Mar, [facility] [place] [facility] [address] [id number] [place] [address]- 2544 Mar, [facility] [place] [facility] [address] [id number] [place] [address]- 8029 Mar, [facility] [place] [facility] [address] [id number] [place] [address]- 5804 Mar, [facility] [place] [facility] [address] [id number] [place] [address]- 6761 Mar, [facility] [place] [facility] [address] [id number] [place] [address]- 7054 February, [facility] [place] [facility] [address] [id number] [place] [address]- 0834 February, [facility] [place] [facility] [address] [id number] [place] [address]- 3913 February, [facility] [place] [facility] [address] [id number] [place] [address]- 1169 February, [facility] [place] [facility] [address] [id number] [place] [address]- 3596 February, [facility] [place] [facility] [address] [id number] [place] [address]- 8694 February, [facility] [place] [facility] [address] [id number] [place] [address]- 9965 February, [facility] [place] [facility] [address] [id number] [place] [address]- 2135 February, [facility] [place] [facility] [address] [id number] [place] [address]- 0091 February, [facility] [place] [facility] [address] [id number] [place] [address] February, [facility] [address] [id number] [place] [address] February, [facility] [place] [facility] [address] [id number] [place] [address] February, [facility] [place] [facility] [address] [id number] [place] [address] February, [facility] [place] [facility] [address] [id number] [place] [address] February, [facility] [place] [facility] [address] [id number] [place] [address] Jan, [facility] [place] [facility] [address] [id number] [place] [address] Jan, [facility] [place] [facility] [address] [id number] [place] [address] Jan, [facility] [place] [facility] [address] [id number] [place] [address] Jan, [facility] [place] [facility] [address] [id number] [place] [address] Jan, [facility] [place] [facility] [address] [id number] [place] [address] Jan, [facility] [place] [facility] [address] [id number] [place] [address] Jan, [facility] [place] [facility] [address] [id number] [place] [address] Jan, [facility] [place] [facility] [address] [id number] [place] [address] Jan, [facility] [place] [facility] [address] [id number] [place] [address] Dec, [facility] [place] [facility] [address] [id number] [place] [address] Dec, [facility] [place] [facility] [address] [id number] [place] [address] Dec, [facility] [place] [facility] [address] [id number] [place] [address] Dec, [facility] [place] [facility] [address] [id number] [place] [address] Dec, [facility] [place] [facility] [address] [id number] [place] [address] Dec, [facility] [place] [facility] [address] [id number] [place] [address] Dec, [facility] [place] [facility] [address] [id number] [place] [address] Dec, [facility] [place] [facility] [address] [facility] [id number] [place] [address] Dec, [facility] [place] [facility] [address] [id number] [place] [address] Dec, [facility] [place] [facility] [address] [id number] [place] [address] 14 Dec, 2013 [facility] [place] [facility] [address] [id number] [place] [address] Dec, [facility] [place] [facility] [address] [facility] [id number] [place] [address] Dec, [facility] [place] [facility] [address] [id number], [place] [address] 10 Dec, 2013 [facility] [place] [facility] [address] [id number] [place] [address] Dec, [facility] [place] [facility] [address] [id number] [place] [address] 06 Dec, 2013 [facility] [place] [facility] [address] [id number] [place] [address] 06 Dec, 2013 [facility] [place] [facility] [address] [id number], [place] [address] Oct, [facility] [address] [id number] [place] [address] Oct, [facility] [place] [facility] [address] [id number] [place] [address] Oct, [facility] [place] [facility] [address] [id number] [place] [address] Oct, [facility] [place] [facility] [address] [id number] [place] [address] Oct, [facility] [place] [facility] [address] [id number] [place] [address] Oct, [facility] [place] [facility] [address] [id number] [place] [address] Oct, [facility] [address] [id number] [place] [place] [address] Oct, [facility] [place] [facility] [address] [id number] [place] [address] Oct, [facility] [place] [facility] [address] [id number] [place] [address] 8749 Oct, [facility] [place] [facility] [address] [id number] [place] [address] 1854 Oct, [facility] [place] [facility] [address] [id number] [place] [address] 6102 Oct, [facility] [place] [facility] [address] [id number], [place] [address] Oct, [facility] [place] [facility] [address] [id number] [place] [address] 1798 Oct, [facility] [place] [facility] [address] [id number] [place] [address] 8734 Sep, [facility] [place] [facility] [address] [id number] [place] [address]- 9949 Sep, [facility] [place] [facility] [address] [id number] [place] [address]- 3556 30 Sep, 2013 [facility] [place] [facility] [address] [id number] [place] [address]- 8846 30 Sep, 2013 [facility] [place] [facility] [address] [id number] [place] [address]- 0906 Sep, [facility] [place] [facility] [address] [id number] [place] [address]- 9046 Sep, [facility] [place] [facility] [address] [id number] [place] [address]- 8043 Sep, [facility] [place] [facility] [address] [id number] [place] [address]- 1856 Sep, [facility] [place] [facility] [address] [id number] [place] [address]- 9795 Sep, [facility] [place] [facility] [address] [id number] [place] [address]- 2832 Sep, [facility] [place] [facility] [address] [id number] [place] [address]- 0520 16 Sep, 2013 [facility] [place] [facility] [address] [id number] [place] [address]- 7894 16 Sep, 2013 [facility] [place] [facility] [address] [id number] [place] [address]- 7967 13 Sep, 2013 [facility] [place] [facility] [address] [id number] [place] [address]- 3096 13 Sep, 2013 [facility] [place] [facility] [address] [id number] [place] [address] 2546 10 Sep, 2013 [facility] [place] [facility] [address] [id number] [place] [address]- 5556 10 Sep, 2013 [facility] [place] [facility] [address] [id number] [place] [address]- 2186 02 Sep, 2013 [facility] [place] [facility] [address] [id number] [place] [address] 8998 02 Sep, 2013 [facility] [place] [facility] [address] [id number] [place] [address]- 0132 15 Aug, 2013 [facility] [place] [facility] [address] [id number] [place] [address]- 9399 15 Aug, 2013 [facility] [place] [facility] [address] [id number] [place] [address] 16 Jul, 2013 [facility] [place] [facility] [address] [id number] [place] [address]- 4833 16 Jul, 2013 [facility] [place] [facility] [address] [id number] [place] [address]- 1056 14 Jul, 2013 [facility] [place] [facility] [address] [id number] [place] [address]- 2016 14 Jul, 2013 [facility] [place] [facility] [address] [id number] [place] [address]- 1806 08 Jul, 2013 [facility] [place] [facility] [address] [id number], [place] [address]- 7[address] 20 Sep, 2012 [facility] [place] [facility] [address] [id number][place] [address]- 6851 19 Sep, 2012 [facility] [place] [facility] [address] [id number], [place] [address] 8544 13 Sep, 2012 [facility] [place] [facility] [address] [id number][place] [address]- 7933 08 Sep, 2012 [facility] [place] [facility] [address] [id number], [place] [address]- 6042 06 Sep, 2012 [facility] [place] [facility] [address] [id number], [place] [address]- 2827 06 Sep, 2012 [facility] [place] [facility] [address] [id number], [place] [address]- 6542 06 Sep, 2012 [facility] [place] [facility] [address] [id number][place] [address]- 1347 03 Sep, 2012 [facility] [place] [facility] [address] [id number] [place] [address]- 7466 May, [facility] [address] [id number] [place] [address]- 3019 May, [facility] [place] [facility] [address] [id number] [place] [address]- 0813 May, [facility] [address] [id number] [place] [address]- 8878 May, [facility] [place] [facility] [address] [id number] [place] [address]- 2887 Apr, [facility] [address] [id number] [place] [address]- 7186 Apr, [facility] [place] [facility] [address] [id number] [place] [address]- 7098 Apr, [facility] [address] [id number] [place] [address]- 0775 Mar, [facility] [place] [facility] [address] [id number] [place] [address]- 2929 Mar, [facility] [place] [facility] [address] [id number] [place] [address]- 9901 Mar, [facility] [address] [id number] [place] [address]- 3156 Mar, [facility] [place] [facility] [address] [id number] [place] [address]- 2437 February, [facility] [place] [facility] [address] [id number] [place] [address]- 9713 February, [facility] [place] [facility] [address] [id number] [place] [address]- 7385 Jan, [facility] [place] [facility] [address] [id number] [id number] [address] Dec, [facility] [place] [facility] [address] [id number] [place] [address] Dec, [facility] [place] [facility] [address] [id number] [place] [address]- 1819 05 Dec, 2012 [facility] [address] [id number] [place] [address]- 7324 05 Dec, 2012 [facility] [address] [id number] [place] [address]- 9792 28 Dec, 2012 [facility] [place] [facility] [address] [id number] [place] [address]- 0834 27 Dec, 2012 [facility] [address] [id number] [place] [address]- 6251 Dec, [facility] [address] [id number] [place] [address]- 9003 25 Dec, 2012 [facility] [address] [id number] [place] [address]- 6792 22 Dec, 2012 [facility] [address] [id number] [place] [address]- 8873 15 Dec, 2012 [facility] [address] [id number] [place] [address]- 6773 14 Dec, 2012 [facility] [address] [id number] [place] [address]- 7353 Oct, [facility] [address] [id number] [place] [address]- 9781 Oct, [facility] [place] [facility] [address] [id number] [place] [address]- 2248 09 Oct, 2012 [facility] [place] [facility] [address] [id number] [place] [address]- 2677 Oct, [facility] [place] [facility] [address] [id number] [place] [address]- 8572 13 Sep, 2012 [facility] [place] [facility] [address] [id number] [place] [address]- 6158 Sep, [facility] [address] [id number] [place] [address]- 2795 Sep, [facility] [place] [facility] [address] [id number] [place] [address]- 1071 Sep, [facility] [place] [facility] [address] [id number] [place] [address]- 7978 Sep, [facility] [place] [facility] [address] [id number] [place] [address]- 3428 Sep, [facility] [place] [facility] [address] [id number] [place] [address]- 4359 Aug, [facility] [place] [facility] [address] [id number] [place] [address]- 5518 Aug, [facility] [place] [facility] [address] [id number] [place] [address]- 7297 Aug, [facility] [place] [facility] [address] [facility] [id number] [place] [address]- 5643 Aug, [facility] [place] [facility] [address] [id number] [place] [address]- 4240 Aug, [facility] [place] [facility] [address] [id number] [place] [address]- 1733 Aug, [facility] [place] [facility] [address] [facility] [id number] [place] [address]- 5565 Jul, [facility] [place] [facility] [address] [id number] [place] [address]- 4148 Jul, [facility] [place] [facility] [address] [id number], [place] [address]- 8721 Jul, [facility] [place] [facility] [address] [id number] [place] [address]- 2817 Jul, [facility] [place] [facility] [address] [facility] [id number] [place] [address]- 2991 Jul, [facility] [place] [facility] [address] [facility] [id number], [place] [address]- 1056 Jul, [facility] [place] [facility] [address] [id number] [place] [address]- 5889 27 Jul, 2012 [facility] [place] [facility] [address] [id number] [place] [address]- 9866 21 Jul, 2012 [facility] [place] [facility] [address] [id number] [place] [address]- 9366 20 Jul, 2012 [facility] [place] [facility] [address] [id number] [place] [address]- 6306 11 Jul, 2012 [facility] [place] [facility] [address] [id number] [place] [address]- 3743 Jul, [facility] [place] [facility] [address] [id number] [place] [address]- 9549 May, [facility] [place] [facility] [address] [id number] [place] [address]- 2291 May, [facility] [place] [facility] [address] [id number] [place] [address]- 9272 May, [facility] [place] [facility] [address] [id number] [place] [address]- 9936 May, [facility] [place] [facility] [address] [id number] [place] [address]- 3697 Apr, [facility] [place] [facility] [address] [id number] [place] [address]- 5749 Apr, [facility] [place] [facility] [address] [id number] [place] [address]- 4182 Apr, [facility] [place] [facility] [address] [id number] [place] [address]- 7135 Apr, [facility] [place] [facility] [address] [id number] [place] [address]- 2544 Apr, [facility] [place] [facility] [address] [id number] [place] [address]- 6878 Apr, [facility] [place] [facility] [address] [id number] [place] [address]- 2755 13 Apr, 2012 [facility] [place] [facility] [address] [id number] [place] [address]- 6009 09 Apr, 2012 [facility] [place] [facility] [address] [id number] [place] [address]- 8929 28 Mar, 2012 [facility] [place] [facility] [address] [id number] [place] [address]- 0646 27 Mar, 2012 [facility] [place] [facility] [address] [id number] [place] [address]- 3609 20 Mar, 2012 [facility] [place] [facility] [address] [id number] [place] [address]- 2006 15 Mar, 2012 [facility] [place] [facility] [address] [id number] [place] [address]- 4419 14 Mar, 2012 [facility] [place] [facility] [address] [id number] [place] [address]- 7873 Mar, [facility] [place] [facility] [address] [id number] [place] [address]- 8715 Mar, [facility] [place] [facility] [address] [id number] [place] [address]- 4026 Mar, [facility] [place] [facility] [address] [id number] [place] [address]- 8068 08 Mar, 2012 [facility] [place] [facility] [address] [id number] [place] [address]- 1850 February, [facility] [place] [facility] [address] [id number] [place] [address]- 0214 February, [facility] [place] [facility] [address] [id number] [place] [address]- 1060 February, [facility] [place] [facility] [address] [id number] [place] [address]- 2434 February, [facility] [place] [facility] [address] [id number] [place] [address]- 2593 13 Jan, 2012 [facility] [place] [facility] [address] [id number] [place] [address]- 9144 03 Jan, 2012 [facility] [place] [facility] [address] [id number] [place] [address]- 6127 28 Dec, 2011 [facility] [place] [facility] [address] [id number] [place] [address]- 8126 15 Dec, 2011 [facility] [place] [facility] [address] [id number] [place] [address]- 8906 14 Dec, 2011 [facility] [place] [facility] [address] [id number] [place] [address]- 3966 07 Dec, 2011 [facility] [place] [facility] [address] [id number] [place] [address]- 1841 28 Dec, 2011 [facility] [place] [facility] [address] [id number] [place] [address]- 5576 27 Dec, 2011 [facility] [place] [facility] [address] [id number] [place] [address]- 5081 Dec, [facility] [place] [facility] [address] [id number] [place] [address]- 2554 Dec, [facility] [place] [facility] [address] [id number] [place] [address]- 4776 Dec, [facility] [place] [facility] [address] [facility] [id number] [place] [address]- 3691 Dec, [facility] [place] [facility] [address] [facility] [id number] [place] [address]- 3624 Dec, [facility] [place] [facility] [address] [id number] [place] [address]- 7821 Dec, [facility] [place] [facility] [address] [id number] [place] [address]- 2698 Oct, [facility] [place] [facility] [address] [id number] [place] [address]- 0403 Oct, [facility] [place] [facility] [address] [id number], [place] [address]- 6626 Oct, [facility] [place] [facility] [address] [id number] [place] [address]- 2827 Oct, [facility] [place] [facility] [address] [id number] [place] [address]- 9549 Oct, [facility] [place] [facility] [address] [id number] [place] [address]- 4113 Oct, [facility] [place] [facility] [address] [id number], [place] [address]- 8156 16 Oct, 2011 [facility] [place] [facility] [address] [id number] [place] [address]- 9228 Oct, [facility] [place] [facility] [address] [id number] [place] [address]- 3667 Sep, [facility] [place] [facility] [address] [id number], [place] [address]- 3874 Sep, [facility] [place] [facility] [address] [id number], [place] [address]- 9520 Sep, [facility] [place] [facility] [address] [id number], [place] [address]- 9741 Aug, [facility] [place] [facility] [address] [id number], [place] [address]- 4880 Aug, [facility] [place] [facility] [address] [id number], [place] [address]- 0256 16 Aug, 2011 [facility] [place] [facility] [address] [id number], [place] [address]- 0794 14 Aug, 2011 [facility] [place] [facility] [address] [id number], [place] [address]- 2710 Aug, [facility] [place] [facility] [address] [id number], [place] [address]- 3501 19 Jul, 2011 [facility] [place] [facility] [address] [id number], [place] [address]- 8060 13 Jul, 2011 [facility] [place] [facility] [address] [facility] [id number], [place] [address]- 2546 May, [facility] [address] [facility] [id number][place] [address]- 4950 Dec, [facility] [address] [id number], [place] [address]- 0556 Oct, [facility] [address] [id number], [place] [address]- 7151 Sep, [facility] [address] [id number], [place] [address]- [address] Sep, [facility] [address] [id number], [place] [address]- 9456 Sep, IMMUNIZATIONS No Known Immunizations SOCIAL HISTORY Never Assessed REASON FOR VISIT BH f/u PLAN OF CARE Activity Details Follow Up 1 week, 1 hour only. Reason: VITAL SIGNS MEDICATIONS Unknown Medications RESULTS No Results PROCEDURES Procedure Date Ordered Result Body Site [facility] VISIT MENTAL HEALTH ESTAB PT Oct 04, 2017 Psychotherapy, patient &/family, 30 minutes, established patient Oct 04, 2017 INSTRUCTIONS MEDICATIONS ADMINISTERED No Known Medications [...] reflux Surgical History Left Knee SOA-Dr. Melendrez-[facility] 05/19/16 Surgical History Colonoscopy- Dr Castanon 01/26/2017 Hospitalization History surgeries Hospitalization History Left Knee SOA--Dr. Melendrez--[facility] Hospitalization History Septic shock, UTI-[facility] 07/27/17 Hospitalization History Multiple falls, hyperglycemia, sepsis 07/2017 Hospitalization History Alcoholism, depression, DM, Falls-[facility] 08/23/17 Hospitalization History COPD exacerbation-[facility] 11/25/17 Hospitalization History COPD exacerbation-[facility] 11/28/17
[2018-05-10 03:30] VITALS: BP 166/100
--- OUTSIDE RECORDS SUMMARY | 2018-05-10 03:30 | XMS REPORT ---
Author Author ABEL MELENDEZ [facility] Address [address] [place] [address] Care Team Providers Care Cover Operator Name Role Phone ABEL MELENDEZ Unavailable PROBLEMS Type Condition ICD9-CM Code BOQ75-BC Code Onset Dates Condition Status SNOMED Code Problem Generalized anxiety disorder F41.1 Active 57947918 Problem Diabetes E11.9 Active 76866917 Problem Psoriasis L40.9 Active 2141685 Problem Tobacco abuse Z72.0 Active 43124039 Problem 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 I10 Active 65898075 Problem Back pain M54.9 Active 665318073 Problem Arthritis M19.90 Active 4733704 Problem correction 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 Active 012757140 Problem Psoriatic arthritis L40.50 Active 432770810 Problem Psychophysiological insomnia F51.04 Active 05178565 Problem Other specified 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 Active 151596279 Problem Obesity (BMI 30-39.9) E66.9 Active 933800295 Problem Major depressive disorder, recurrent, moderate F33.1 Active 49404824 Problem Essential hypertension I10 Active 86258118 Problem Type 2 diabetes mellitus with hyperglycemia E11.65 Active 929467522462643 Problem Alcoholism F10.20 Active 7795895 Problem Frequent falls R29.6 Active 998522487 Problem Benzodiazepine abuse F13.10 Active 370675942 Problem PTSD (post-traumatic stress disorder) F43.10 Active 12700020 Problem Eating disorder F50.9 Active 94581251 Problem Attention-deficit hyperactivity disorder, combined type F90.2 Active 32428612 Problem COPD exacerbation J44.1 Active 299052600 Problem Anxiety F41.9 Active 74452542 Problem Decubitus ulcer of left buttock, stage 2 L89.322 Active 415546731 Problem BMI 40.0-44.9, adult Z68.41 Active 042911754 Problem Alcohol abuse F10.10 Active 64760788 Problem Pneumonia due to methicillin resistant Staphylococcus aureus, unspecified laterality, unspecified part of lung J15.212 Active 269925750857711 Problem Type 2 diabetes mellitus with unspecified complications E11.8 Active 43813325 Problem Attention-deficit hyperactivity disorder, predominantly hyperactive type F90.1 Active 295909484 Problem Type 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 Active 48042578 Problem Ulcer of right foot, unspecified ulcer stage L97.519 Active 38140254 Problem Attention deficit R41.840 Active 08572643 Problem Mental disorder, not otherwise specified F99 Active 28892830 Problem Insomnia due to other mental disorder F51.05 Active 08924455 ALLERGIES No Information ENCOUNTERS Encounter Location Date Diagnosis [facility] [address] [address] Mar, [facility] [id number] [place] [address] 66406- 5246 Mar, [facility] [id number] [place] [address] 50035- 1674 February, Yeast infection B37.9 [facility] [id number] [place] [address] 37799- 2856 February, [facility] [id number] [place] [address] 86036- 6281 Jan, [facility] [id number] [place] [address] 42224- 9422 Dec, Major depressive disorder, recurrent episode, unspecified severity F33.9 ; Generalized anxiety disorder F41.1 and Eating disorder F50.9 [facility] [address] [address] Dec, [facility] [id number] [place] [address] 02339- 1918 Dec, [facility] [id number] [place] [address] 36771- 0314 Dec, [facility] [id number] [place] [address] 57733- 0592 Dec, Increased urinary frequency R35.0 ; Frequent falls R29.6 ; Decubitus ulcer of left buttock, stage 2 L89.322 ; Benzodiazepine abuse F13.10 ; BMI 40.0-44.9, adult Z68.41 and Yeast infection B37.9 [facility] [address] [address] Dec, [facility] [id number] [place] [address] 94877- 4228 Dec, [facility] [id number] [place] [address] 66846- 6379 Dec, Increased urinary frequency R35.0 [facility] [id number] [place] [address] 25799- 7785 Dec, Increased urinary frequency R35.0 [facility] [id number] [place] [address] 81294- 1988 Dec, Generalized anxiety disorder F41.1 ; Major depressive disorder, recurrent, moderate F33.1 and Psychophysiological insomnia F51.04 [facility] [id number] [place] [address] 52049- 5457 Dec, BMI 40.0-44.9, adult Z68.41 ; Type 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 ; Pneumonia due to methicillin resistant Staphylococcus aureus, unspecified laterality, unspecified part of lung J15.212 and COPD exacerbation J44.1 [facility] [address] [address] Dec, [facility] [id number] [place] [address] [id number] Dec, [facility] [id number] [place] [address] [id number] Oct, [facility] [address] [address] Oct, Frequency of urination R35.0 ; Bronchitis J40 and BMI 40.0- 44.9, adult Z68.41 [facility] [id number] [place] [id number] Oct, [facility] [id number] [place] [address] 46892- 0404 Oct, [facility] [id number] [place] [address] 87336- 0231 Oct, BMI 40.0-44.9, adult Z68.41 ; Type 2 diabetes mellitus with hyperglycemia E11.65 ; Essential hypertension I10 ; Vaginal yeast infection B37.3 ; Anxiety F41.9 and Alcoholism F10.20 [facility] [id number] [place] [address] 24941- 0411 Oct, [facility] [id number] [place] [address] 48436- 7845 Oct, [facility] [id number] [place] [address] 85560- 9631 Sep, [facility] [id number] [place] [address] 04111- 1072 Sep, Major depressive disorder, recurrent episode, unspecified severity F33.9 ; Generalized anxiety disorder F41.1 and Eating disorder F50.9 [facility] [address] [address] Sep, Major depressive disorder, recurrent, moderate F33.1 ; Type 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 ; Alcohol abuse F10.10 ; Obesity (BMI 30-39.9) E66.9 and Psychophysiological insomnia F51.04 [facility] [id number] [place] [address] 21067- 3090 06 Sep, 2017 Diabetes E11.9 and Generalized anxiety disorder F41.1 [facility] [id number] [place] [address] 81267- 5468 05 Sep, 2017 Major depressive disorder, recurrent episode, unspecified severity F33.9 ; Generalized anxiety disorder F41.1 and Eating disorder F50.9 [id number] [address] Sep, [facility] [id number] [place] [address] 45071- 6514 Aug, [facility] [id number] [place] [address] 90267- 6063 Aug, Insomnia due to other mental disorder F51.05 ; Mental disorder, not otherwise specified F99 ; Attention deficit R41.840 ; Ulcer of right foot, unspecified ulcer stage L97.519 ; Cough R05 ; Diabetes E11.9 ; Sore in mouth K13.79 ; Generalized anxiety disorder F41.1 ; Major depressive disorder , recurrent episode, unspecified severity F33.9 and BMI 40.0-44.9, adult Z68.41 [facility] [id number] [place] [address] 75889- 1071 Aug, [facility] [id number] [place] [address] 03626- 1505 Aug, [facility] [id number] [place] [address] 00612- 2762 Aug, [facility] [id number] [place] [address] 99336- 7551 Aug, [facility] [id number] [place] [address] 54268- 5064 Aug, Diabetes E11.9 [facility] [employer] [address] [place] [id number] Aug, Falling R29.6 ; Alcohol abuse F10.10 ; Major depressive disorder, recurrent episode, unspecified severity F33.9 ; 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 I10 ; Type 2 diabetes mellitus with unspecified complications E11.8 and atg architect 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 [facility] [id number] [place] [address] [id number] Aug, 2017 [employer] [address] [place] [id number] Aug, Alcohol abuse F10.10 ; Major depressive disorder, recurrent episode, unspecified severity F33.9 ; Generalized anxiety disorder F41.1 ; correction 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 ; Psoriatic arthritis L40.50 and Diabetes E11.9 [facility] [id number] [place] [address] [id number] Aug, [facility] [id number] [id number] Jul, [facility] [id number] [place] [address] 11290- 6372 Jul, [facility] [id number] [place] [address] 06182- 9465 Jul, Generalized anxiety disorder F41.1 [facility] [id number] [place] [address] 96130- 9694 Jul, [facility] [id number] [place] [address] 50408- 2415 Jul, [facility] [id number] [place] [address] 10807- 5305 Jul, Generalized anxiety disorder F41.1 ; Major depressive disorder, recurrent episode, unspecified severity F33.9 ; PTSD (post-traumatic stress disorder) F43.10 ; Eating disorder F50.9 and Attention-deficit hyperactivity disorder, predominantly hyperactive type F90.1 [facility] [address] [address]- 6681 Jul, [facility] [address] [address]- 2847 Jul, [facility] [address] [address]- 7812 Jul, correction 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 ; Type 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 ; Urinary tract infection, site not specified N39.0 ; Sepsis, unspecified organism A41.9 and Essential hypertension I10 [facility] [id number] [place] [id number] Jul, [facility] [address] [address] 27 Jul, 2017 [facility] [id number] [place] [address] 78538- 9812 Jul, Generalized anxiety disorder F41.1 [facility] [id number] [place] [address] 79585- 5144 15 Jul, 2017 [facility] [id number] [place] [address] 42216- 4306 Jul, Generalized anxiety disorder F41.1 [facility] [id number] [place] [address] 89425- 4098 May, Generalized anxiety disorder F41.1 ; Major depressive disorder, recurrent episode, unspecified severity F33.9 ; PTSD (post-traumatic stress disorder) F43.10 ; Eating disorder F50.9 and Attention-deficit hyperactivity disorder, predominantly hyperactive type F90.1 [facility] [id number] [place] [address] 81986- 1358 May, Diabetes E11.9 [facility] [id number] [place] [address] 85866 -8188 May, Acute non-recurrent maxillary sinusitis J01.00 and Diabetes E11.9 [facility] [address] [address]- 1607 May, [facility] [id number] [place] [address] 47612- 4888 May, [facility] [id number] [place] [address] 28318- 8216 May, Generalized anxiety disorder F41.1 [facility] [id number] [place] [address] 15060- 2292 Apr, [facility] [address] [address]- 2492 Apr, [facility] [id number] [place] [address] 71327- 7252 Apr, [facility] [id number] [place] [address] 27938- 9354 Apr, Generalized anxiety disorder F41.1 ; Major depressive disorder, recurrent episode, unspecified severity F33.9 ; PTSD (post-traumatic stress disorder) F43.10 ; Eating disorder F50.9 and Attention-deficit hyperactivity disorder, predominantly hyperactive type F90.1 [address] [id number] [place] [address] 85544- 3659 Apr, Major depressive disorder, recurrent, moderate F33.1 [place] [address] [id number] [place] [address] 95695- 1627 Mar, Diabetes E11.9 [place] [id number] [place] [address] 96023- 4262 Mar, Attention-deficit hyperactivity disorder, combined type F90.2 [place] [id number] [place] [address] 31011- 4489 Mar, [place] [id number] [place] [address] 62565- 7490 Mar, Diabetes E11.9 [place] [id number] [place] [address] 27992- 1825 Mar, correction 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 ; Psoriatic arthritis L40.50 ; Other specified 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 and 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 I10 [place] [id number] [place] [address] 74010- 6562 February, Back pain M54.9 [place] [id number] [place] [address] 07534- 6529 February, Attention-deficit hyperactivity disorder, combined type F90.2 [place] [id number] [place] [address] 96903- 0655 February, Major depressive disorder, recurrent episode, unspecified severity F33.9 and Generalized anxiety disorder F41.1 [place] [id number] [place] [address] 52192- 1929 Jan, Attention-deficit hyperactivity disorder, combined type F90.2 [facility] [id number] [place] [address] 10010- 2393 Jan, Major depressive disorder, recurrent, moderate F33.1 ; Generalized anxiety disorder F41.1 and Attention-deficit hyperactivity disorder , combined type F90.2 [facility] [id number] [place] [address] 91725- 6725 Dec, Major depressive disorder, recurrent episode, unspecified severity F33.9 ; Generalized anxiety disorder F41.1 and Attention-deficit hyperactivity disorder, predominantly hyperactive type F90.1 [facility] [id number] [place] [address] 50117- 8336 Dec, Major depressive disorder, recurrent episode, unspecified severity F33.9 and Generalized anxiety disorder F41.1 [facility] [id number] [place] [address] 43707- 0145 Dec, [facility] [id number] [place] [address] 51778- 2563 Dec, [facility] [id number] [place] [address] 70348- 2688 Dec, Major depressive disorder, recurrent episode, unspecified severity F33.9 and Generalized anxiety disorder F41.1 [facility] [id number] [place] [address] 15527- 6037 Dec, Back pain M54.9 [facility] [id number] [place] [address] 43881- 3612 Dec, Eustachian tube dysfunction, right H69.81 and Arthritis M19.90 [facility] [id number] [place] [address] 65357- 1316 Dec, [facility] [id number] [place] [address] 21270- 5319 Dec, [facility] [address] [place] [address]- 7717 07 Dec, 2016 Major depressive disorder, recurrent episode, unspecified severity F33.9 [facility] [id number] [place] [address] 46308- 0166 Oct, [facility] [id number] [place] [address] 39962 -0430 Oct, Acute non-recurrent pansinusitis J01.40 and Sore throat J02.9 [facility] [id number] [place] [address] 54146- 1287 Oct, Major depressive disorder, recurrent episode, unspecified severity F33.9 [facility] [id number] [place] [address] 87643- 6248 Oct, Major depressive disorder, recurrent episode, unspecified severity F33.9 and Generalized anxiety disorder F41.1 [facility] [id number] [place] [address] 16946- 0699 Sep, [facility] [id number] [place] [address] 42307- 9837 Sep, Major depressive disorder, recurrent episode, unspecified severity F33.9 [facility] [id number] [place] [address] 66061- 6939 Sep, Major depressive disorder, recurrent episode, unspecified severity F33.9 [facility] [id number] [place] [address] 79635 -6050 Sep, Sore throat J02.9 [facility] [id number] [place] [address] 73731- 3375 15 Sep, 2016 Generalized anxiety disorder F41.1 ; Major depressive disorder, recurrent episode, unspecified severity F33.9 and Attention-deficit hyperactivity disorder, predominantly hyperactive type F90.1 [facility] [id number] [place] [address] 19759- 2789 08 Sep, 2016 Major depressive disorder, recurrent episode, unspecified severity F33.9 and Generalized anxiety disorder F41.1 [facility] [id number] [place] [address] 71474- 2092 07 Sep, 2016 Psoriatic arthritis L40.50 [facility] [id number] [place] [address] 45563- 2740 02 Sep, 2016 Diabetes E11.9 ; correction 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 ; Back pain M54.9 and Encounter for immunization Z23 [facility] [id number] [place] [address] 30690- 9366 Aug, [facility] [id number] [place] [address] 75187- 2892 Aug, [facility] [id number] [place] [address] 82710- 5458 Jul, Major depressive disorder, recurrent episode, unspecified severity F33.9 ; Attention-deficit hyperactivity disorder, predominantly hyperactive type F90.1 and Generalized anxiety disorder F41.1 [facility] [id number] [place] [address] 70169- 4051 Jul, [facility] [id number] [place] [address] 37070- 8605 22 Jul, 2016 Major depressive disorder, recurrent, in partial remission F33.41 and Generalized anxiety disorder F41.1 [facility] [id number] [place] [address] 95039- 9887 Jul, [facility] [id number] [place] [address] 84576- 5242 19 Jul, 2016 [facility] [id number] [place] [address] 57050- 1883 13 Jul, 2016 [facility] [id number] [place] [address] 64327- 0032 Jul, [facility] [id number] [place] [address] 95938- 6151 12 Jul, 2016 Diabetes E11.9 [facility] [id number] [place] [address] 64513- 4826 May, [facility] [address] [address]- 2022 May, [facility] [id number] [place] [address] 88213- 7487 May, [facility] [id number] [place] [address] 62573- 8345 May, Major depressive disorder, recurrent episode, unspecified severity F33.9 ; Generalized anxiety disorder F41.1 and Attention-deficit hyperactivity disorder, predominantly hyperactive type F90.1 [facility] [id number] [place] [address] 98681- 0176 May, [facility] [id number] [place] [address] 84825- 0037 May, Diabetes E11.9 [facility] [id number] [place] [address] 84493- 1078 May, [facility] [id number] [place] [address] 91405- 8042 May, [facility] [address] [place] [id number] May, Diabetes E11.9 ; Generalized anxiety disorder F41.1 and Nausea R11.0 [facility] [id number] [place] [address] 22479- 9306 May, Psoriatic arthritis L40.50 and Candidiasis of female genitalia B37.3 [facility] [address] [address]- 0801 May, [facility] [id number] [place] [address] 02858- 8262 Apr, [facility] [id number] [place] [address] 65241- 1355 Apr, [facility] [id number] [place] [address] 96138- 5660 Apr, [place] [place] [address] [address]- 0692 Apr, Generalized anxiety disorder F41.1 ; Major depressive disorder, recurrent episode, unspecified severity F33.9 and Attention-deficit hyperactivity disorder, predominantly hyperactive type F90.1 [facility] [address] [address]- 4277 Apr, [facility] [id number] [place] [address] 18848- 1359 Apr, [facility] [id number] [place] [address] 22074- 4577 Apr, [facility] [id number] [place] [address] 60876- 9556 Apr, [facility] [id number] [place] [address] [phone] Apr, [facility] [id number] [place] [address] [phone] Mar, Attention-deficit hyperactivity disorder, predominantly hyperactive type F90.1 [facility] [id number] [place] [address] [phone] Mar, [facility] [id number] [place] [address] 21047- 2860 Mar, [facility] [address] [address] Mar, Major depressive disorder, recurrent episode, unspecified severity F33.9 and Generalized anxiety disorder F41.1 [facility] [id number] [place] [address] 42717- 7379 February, Diabetes E11.9 [facility] [address] [address] February, OME (otitis media with effusion), bilateral H65.93 [facility] [id number] [place] [address] 38920- 9988 February, Back pain M54.9 [facility] [address] [address] 9[address] February, [facility] [id number] [place] [address] 15886- 3427 February, Nausea R11.0 [facility] [id number] [place] [address] 97901- 2441 February, [facility] [id number] [place] [address] 26799- 4283 February, Pre-op evaluation Z01.818 ; Type 2 diabetes mellitus with hyperglycemia E11.65 and correction 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 [facility] [id number] [place] [address] 23416- 6537 February, [facility] [id number] [place] [address] 43765 -9053 February, Right otitis externa H60.91 [facility] [id number] [place] [address] 96207- 0349 Jan, [facility] [id number] [place] [address] 81385- 5418 Jan, Psoriatic arthritis L40.50 and Arthralgia, unspecified joint M25.50 [facility] [address] [address] Jan, Major depressive disorder, recurrent episode, unspecified severity F33.9 ; Generalized anxiety disorder F41.1 and Attention-deficit hyperactivity disorder, unspecified type F90.9 [facility] [address] [address] 0755 Jan, [facility] [id number] [place] [address] 06955- 0898 Jan, [facility] [id number] [place] [address] 15200- 2028 Jan, Major depressive disorder, recurrent episode, unspecified severity F33.9 and Generalized anxiety disorder F41.1 [facility] [address] [address]- 4569 Jan, [facility] [id number] [place] [address] 73073- 1964 Dec, 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 I10 and Arthritis M19.90 [facility] [id number] [place] [address] 20056- 1654 Dec, [facility] [id number] [place] [address] 73949- 7623 Dec, [facility] [id number] [place] [address] 57250- 4127 Dec, [facility] [id number] [place] [address] 89073- 6328 Dec, [facility] [id number] [place] [address] 16785- 8512 Dec, [facility] [id number] [place] [address] 65901- 8489 Dec, Major depressive disorder, recurrent episode, unspecified severity F33.9 and Generalized anxiety disorder F41.1 [facility] [id number] [place] [address] 45406- 1392 Dec, Diabetes E11.9 ; Back pain M54.9 ; Thrush B37.0 and 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 I10 [facility] [id number] [place] [address] 45973- 2769 18 Dec, 2015 Major depressive disorder, recurrent episode, unspecified severity F33.9 and Generalized anxiety disorder F41.1 [facility] [id number] [place] [address] 39004- 3370 04 Dec, 2015 Major depressive disorder, recurrent episode, in partial or unspecified remission 296.35 ; Major depressive disorder, recurrent episode, unspecified severity F33.9 and Generalized anxiety disorder 300.02 [facility] [id number] [place] [address] 41941- 5455 Dec, [facility] [id number] [place] [address] 61716- 2447 Oct, [facility] [id number] [place] [address] 85999- 6968 Oct, [facility] [id number] [place] [address] 05150- 1423 Oct, [facility] [id number] [place] [address] 92555- 1024 Oct, [facility] [id number] [place] [address] 32826- 7762 Oct, Major depressive disorder, recurrent, moderate F33.1 and Attention-deficit hyperactivity disorder, unspecified type F90.9 [facility] [id number] [place] [address] 72259- 0035 Oct, correction (current) use of opiate analgesic Z79.891 [facility] [id number] [place] [address] 52496- 6204 Oct, [facility] [id number] [place] [address] 59271- 1792 Oct, [facility] [id number] [place] [address] 99918 -7584 Sep, URI (upper respiratory infection) J06.9 ; Psoriasis L40.9 ; Cough R05 and Tobacco abuse Z72.0 [facility] [id number] [place] [address] 78475- 4841 Sep, Major depressive disorder, recurrent episode, in partial or unspecified remission 296.35 ; Generalized anxiety disorder 300.02 and ADHD, 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 [facility] [id number] [place] [address] 30389 -7443 Sep, Acute sinusitis, unspecified J01.90 [facility] [id number] [place] [address] 55041- 9261 Sep, [facility] [address] [address]- 0628 Sep, Major depressive disorder, recurrent, moderate F33.1 ; Generalized anxiety disorder F41.1 and Attention-deficit hyperactivity disorder , combined type F90.2 [facility] [id number] [place] [address] 92288- 0012 Sep, [facility] [id number] [place] [address] 24742- 8244 Aug, [facility] [id number] [place] [address] 88228- 2071 Aug, [facility] [id number] [place] [address] 84947- 0916 Aug, Diabetes E11.9 and Anxiety F41.9 [facility] [id number] [place] [address] 40394- 6998 Aug, Major depressive disorder, recurrent episode, unspecified severity F33.9 and Generalized anxiety disorder F41.1 [facility] [id number] [place] [address] 73920- 2397 Aug, [facility] [id number] [place] [address] 70786- 1020 Jul, [facility] [id number] [place] [address] 38228- 2813 Jul, [facility] [id number] [place] [address] 17315- 1129 Jul, [facility] [id number] [place] [address] 37389- 7845 Jul, [facility] [id number] [place] [address] 28022- 4922 Jul, Major depressive disorder, recurrent episode, in partial or unspecified remission 296.35 ; Generalized anxiety disorder 300.02 and ADHD, 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 [facility] [id number] [address]- 7461 Jul, Major depressive disorder, recurrent episode, in partial or unspecified remission 296.35 ; Generalized anxiety disorder 300.02 and ADHD, 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 [facility] [id number] [place] [address] 02902- 6860 Jul, [facility] [id number] [place] [address] 75266- 8467 May, [facility] [id number] [place] [address] 15527- 7160 May, [facility] [id number] [place] [address] 26563- 5237 May, DM w/o complication type II 250.00 ; Dyspepsia 536.8 and PAD (peripheral artery disease) 443.9 [facility] [id number] [place] [address] 15764- 3640 May, Major depressive disorder, recurrent episode, moderate 296.32 and Generalized anxiety disorder 300.02 [facility] [id number] [place] [address] 96779- 0827 May, [facility] [id number] [place] [address] 52053- 8555 May, Major depressive disorder, recurrent episode, moderate 296.32 and Generalized anxiety disorder 300.02 [facility] [id number] [place] [address] 37659- 7536 May, [facility] [id number] [place] [address] 77567- 0809 Apr, [facility] [id number] [place] [address] 88417- 8153 Apr, Major depressive disorder, recurrent episode, moderate 296.32 and Generalized anxiety disorder 300.02 [facility] [id number] [place] [address] 95571- 8026 Apr, [facility] [id number] [address]- 9449 Apr, [facility] [id number] [place] [address] 37199- 7020 Apr, Generalized anxiety disorder 300.02 ; ADHD, 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 and Depression, major, recurrent, moderate 296.32 [facility] [address] [address]- 0912 Apr, Major depressive disorder, recurrent episode, moderate 296.32 and Generalized anxiety disorder 300.02 [facility] [address] [address]- 2878 Apr, [facility] [id number] [place] [address] 92153- 5860 Apr, [facility] [id number] [place] [address] 83650- 3287 Mar, [facility] [id number] [place] [address] 88046- 5512 Mar, Major depressive disorder, recurrent episode, moderate 296.32 and Generalized anxiety disorder 300.02 [facility] [id number] [place] [address] 52209- 7024 Mar, ADHD, 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 ; Major depressive disorder, recurrent episode, severe, without mention of psychotic behavior 296.33 and Generalized anxiety disorder 300.02 [facility] [address] [address]- 8038 February, Major depressive disorder, recurrent episode, moderate 296.32 and Generalized anxiety disorder 300.02 [facility] [address] [address]- 6778 February, [facility] [id number] [place] [address] 26904- 9024 February, [facility] [address] [address]- 6114 February, [facility] [id number] [address]- 4765 February, [facility] [address] 8501 February, DM w/o complication type II 250.00 ; Impacted cerumen 380.4 ; Essential hypertension, benign 401.1 and Irritable colon 564.1 [facility] [id number] [place] [address] 17049- 2484 February, [facility] [address] [facility] [id number] [place] [address], [place] [address]- 8174 February, [facility] [id number] [place] [address], [place] 6720 Jan, [facility] [id number] [place] [address]- 7354 Dec, [facility] [id number] [place] [address], [place] [address]- 7871 Dec, [facility] [address] [address]- 9797 Dec, [facility] [id number] [place] [address]- 7079 Dec, [facility] [address] [address]- 4176 Dec, [facility] [id number] [place] [address]- 0739 Dec, [facility] [id number] [address]- 7875 Dec, [facility] [id number] [place] [address]- 7219 Dec, [facility] [id number] [place] [address]- 2216 Dec, [facility] [address] [address]- 0260 Dec, [facility] [place] [facility] [address] [id number] [place] [address]- 9869 Dec, [facility] [place] [facility] [address] [id number] [place] [address]- 4766 Dec, [facility] [place] [facility] [address] [id number] [place] [address]- 1332 Dec, [facility] [place] [facility] [address] [id number] [place] [address]- 6876 Dec, [facility] [place] [facility] [address] [id number] [place] [address]- 1818 Dec, [facility] [place] [facility] [address] [id number] [place] [address]- 8936 Dec, [facility] [place] [facility] [address] [id number] [place] [address]- 2010 Oct, [facility] [place] [facility] [address] [id number] [address]- 0776 Oct, [facility] [place] [facility] [address] [id number] [place] [address]- 5579 Oct, [facility] [place] [facility] [address] [id number] [place] [address]- 9081 Oct, [facility] [place] [facility] [address] [id number] [place] [address]- 0838 Oct, [facility] [place] [facility] [address] [id number] [place] [address]- 6378 Oct, [facility] [place] [facility] [address] [id number] [place] [address]- 4719 Oct, [facility] [place] [facility] [address] [id number] [place] [address]- 1536 Oct, [facility] [place] [facility] [address] [id number] [place] [address]- 0226 Oct, [facility] [place] [facility] [address] [id number] [place] [address]- 6044 Oct, [facility] [place] [facility] [address] [id number] [place] 8697 Oct, [facility] [place] [facility] [address] [id number] [place] [address]- 0677 Sep, [facility] [place] [facility] [address] [id number] [place] [address]- 9737 Sep, [facility] [place] [facility] [address] [id number] [place] [address]- 2362 Sep, [facility] [place] [facility] [address] [id number] [place] [address]- 1231 Sep, [facility] [place] [facility] [address] [id number] [place] [address]- 1361 Sep, [facility] [place] [facility] [address] [id number] [place] [address]- 7417 Sep, [facility] [place] [facility] [address] [id number] [place] [address]- 7225 Sep, [facility] [place] [facility] [address] [id number] [place] [address]- 6726 Sep, [facility] [place] [facility] [address] [id number] [place] [address]- 6599 Aug, [facility] [place] [facility] [address] [id number] [place] [address]- 5289 Aug, [facility] [place] [facility] [address] [id number] [place] [address]- 9506 Aug, [facility] [place] [facility] [address] [id number] [place] [address]- 7067 Aug, [facility] [place] [facility] [address] [id number] [place] [address]- 3975 Aug, [facility] [place] [facility] [address] [id number] [place] [address]- 9354 Aug, [facility] [place] [facility] [address] [id number] [place] [address]- 5940 Aug, [facility] [place] [facility] [address] [id number] [place] [address]- 3921 Aug, [facility] [place] [facility] [address] [id number] [place] [address]- 5267 Aug, [facility] [place] [facility] [address] [id number] [place] [address]- 0046 Aug, [facility] [place] [facility] [address] [id number] [place] [address]- 1170 Aug, [facility] [place] [facility] [address] [id number] [place] [address]- 6621 Aug, [facility] [place] [facility] [address] [id number] [place] [address]- 2375 Aug, [facility] [place] [facility] [address] [id number] [place] [address]- 6618 Aug, [facility] [place] [facility] [address] [id number] [place] [address]- 1716 Jul, [facility] [place] [facility] [address] [id number] [place] [address]- 9505 Jul, [facility] [place] [facility] [address] [id number] [place] [address]- 0766 Jul, [facility] [place] [facility] [address] [id number] [place] [address]- 7030 Jul, [facility] [place] [facility] [address] [id number] [place] [address]- 7794 Jul, [facility] [place] [facility] [address] [id number] [place] [address]- 2100 Jul, [facility] [place] [facility] [address] [id number] [place] [address]- 4028 Jul, [facility] [place] [facility] [address] [id number] [place] [address]- 4898 Jul, [facility] [place] [facility] [address] [id number] [place] [address]- 6097 Jul, [facility] [place] [facility] [address] [id number] [place] [address]- 5039 Jul, [facility] [place] [facility] [address] [id number] [place] [address]- 7017 Jul, [facility] [place] [facility] [address] [id number] [place] [address]- 7455 Jul, [facility] [place] [facility] [address] [id number] [place] [address]- 6349 Jul, [facility] [place] [facility] [address] [id number] [place] [address]- 8848 Jul, [facility] [place] [facility] [address] [id number] [place] [address]- 3622 May, [facility] [place] [facility] [address] [id number] [place] [address]- 4211 May, [facility] [place] [facility] [address] [id number] [place] [address]- 7355 May, [facility] [place] [facility] [address] [id number] [place] [address]- 3920 May, [facility] [place] [facility] [address] [id number] [place] [address]- 2838 May, [facility] [place] [facility] [address] [id number] [place] [address]- 7821 May, [facility] [place] [facility] [address] [id number] [place] [address]- 0252 May, [facility] [place] [facility] [address] [id number] [place] [address]- 7560 May, [facility] [place] [facility] [address] [id number] [place] [address]- 5039 May, [facility] [place] [facility] [address] [id number] [place] [address]- 5280 May, [facility] [place] [facility] [address] [id number] [place] [address]- 5164 May, [facility] [place] [facility] [address] [id number] [place] [address]- 5356 May, [facility] [place] [facility] [address] [id number] [place] [address]- 7378 Apr, [facility] [place] [facility] [address] [id number] [place] [address]- 8215 Apr, [facility] [place] [facility] [address] [id number] [place] [address]- 3372 Apr, [facility] [place] [facility] [address] [id number] [place] [address] Apr, [facility] [place] [facility] [address] [id number] [place] [address] Apr, [facility] [place] [facility] [address] [id number] [place] [address] Apr, [facility] [place] [facility] [address] [id number] [place] [address] Mar, [facility] [place] [facility] [address] [id number] [place] [address] Mar, [facility] [place] [facility] [address] [id number] [place] [address] Mar, [facility] [place] [facility] [address] [id number] [place] [address] Mar, [facility] [place] [facility] [address] [id number] [place] [address] Mar, [facility] [place] [facility] [address] [id number] [place] [address] Mar, [facility] [place] [facility] [address] [id number] [place] [address] Mar, [facility] [place] [facility] [address] [id number] [place] [address] Mar, [facility] [place] [facility] [address] [id number] [place] [address] Mar, [facility] [place] [facility] [address] [id number] [place] [address] Mar, [facility] [place] [facility] [address] [id number] [place] [address] Mar, [facility] [place] [facility] [address] [id number] [place] [address] Mar, [facility] [place] [facility] [address] [id number] [place] [address] Mar, [facility] [place] [facility] [address] [id number] [place] [address] February, [facility] [place] [facility] [address] [id number] [place] [address] February, [facility] [place] [facility] [address] [id number] [place] [address] February, [facility] [place] [facility] [address] [id number] [place] [address] February, [facility] [place] [facility] [address] [id number] [place] [address] February, [facility] [place] [facility] [address] [id number] [place] [address] February, [facility] [place] [facility] [address] [id number] [place] [address] February, [facility] [place] [facility] [address] [id number] [place] [address] February, [facility] [place] [facility] [address] [id number] [place] [address]- [address] February, [facility] [place] [facility] [address] [id number] [place] [address] February, [facility] [address] [id number] [place] [address] February, [facility] [place] [facility] [address] [id number] [place] [address] February, [facility] [place] [facility] [address] [id number] [place] [address] February, [facility] [place] [facility] [address] [id number] [place] [address] February, [facility] [place] [facility] [address] [id number] [place] [address] Jan, [facility] [place] [facility] [address] [id number] [place] [address] Jan, [facility] [place] [facility] [address] [id number] [place] [address] Jan, [facility] [place] [facility] [address] [id number] [place] [address] Jan, [facility] [place] [facility] [address] [id number] [place] [address] Jan, [facility] [place] [facility] [address] [id number] [place] [address] Jan, [facility] [place] [facility] [address] [id number] [place] [address] Jan, [facility] [place] [facility] [address] [id number] [place] [address] Jan, [facility] [place] [facility] [address] [id number] [place] [address] Jan, [facility] [place] [facility] [address] [id number] [place] [address] Dec, [facility] [place] [facility] [address] [id number] [place] [address] Dec, [facility] [place] [facility] [address] [id number] [place] [address] Dec, [facility] [place] [facility] [address] [id number] [place] [address] Dec, [facility] [place] [facility] [address] [id number] [place] [address] Dec, [facility] [place] [facility] [address] [id number] [place] [address] 8152 Dec, [facility] [place] [facility] [address] [id number] [place] [address] 3294 Dec, [facility] [place] [facility] [address] [id number] [place] [address] Dec, [facility] [place] [facility] [address] [facility] [id number] [place] [address] 52[address] Dec, [facility] [place] [facility] [address] [id number] [place] [address] 4661 Dec, [facility] [place] [facility] [address] [id number] [place] [address]- 1475 14 Dec, 2013 [facility] [place] [facility] [address] [id number] [place] [address] 0889 Dec, [facility] [place] [facility] [address] [facility] [id number] [place] [address]- 7524 Dec, [facility] [place] [facility] [address] [id number] [place] [address] 5[address] 10 Dec, 2013 [facility] [place] [facility] [address] [id number] [place] [address] 9480 Dec, [facility] [place] [facility] [address] [id number] [place] [address]- 2039 06 Dec, 2013 [facility] [place] [facility] [address] [id number] [place] [address]- 7203 06 Dec, 2013 [facility] [place] [facility] [address] [id number] [place] [address] 6152 Oct, [facility] [address] [id number] [place] [address] 8283 Oct, [facility] [place] [facility] [address] [id number] [place] [address]- 0044 Oct, [facility] [place] [facility] [address] [id number] [place] [address]- 3392 Oct, [facility] [place] [facility] [address] [id number] [place] [address]- 8200 Oct, [facility] [place] [facility] [address] [id number] [place] [address]- 8087 Oct, [facility] [place] [facility] [address] [id number] [place] [address]- 8706 Oct, [facility] [address] [id number] [place] [address]- 8269 Oct, [facility] [place] [facility] [address] [id number] [place] [address]- 1297 Oct, [facility] [place] [facility] [address] [id number] [place] [address]- 6565 Oct, [facility] [place] [facility] [address] [id number] [place] [address]- 0386 Oct, [facility] [place] [facility] [address] [id number] [place] [address]- 7862 Oct, [facility] [place] [facility] [address] [id number] [place] [address] 2032 Oct, [facility] [place] [facility] [address] [id number] [place] [address]- 5386 Oct, [facility] [place] [facility] [address] [id number] [place] [address]- 5931 Sep, [facility] [place] [facility] [address] [id number] [place] [address] 2881 Sep, [facility] [place] [facility] [address] [id number] [place] [address]- 0206 30 Sep, 2013 [facility] [place] [facility] [address] [id number] [place] [address]- 9606 30 Sep, 2013 [facility] [place] [facility] [address] [id number] [place] [address]- 0186 Sep, [facility] [place] [facility] [address] [id number] [place] [address]- 2376 Sep, [facility] [place] [facility] [address] [id number] [place] [address]- 8918 Sep, [facility] [place] [facility] [address] [id number] [place] [address]- 1236 Sep, [facility] [place] [facility] [address] [id number] [place] [address]- 9874 Sep, [facility] [place] [facility] [address] [id number] [place] [address]- 9420 Sep, [facility] [place] [facility] [address] [id number] [place] [address]- 7186 16 Sep, 2013 [facility] [place] [facility] [address] [id number] [place] [address]- 3040 16 Sep, 2013 [facility] [place] [facility] [address] [id number] [place] [address]- 6656 13 Sep, 2013 [facility] [place] [facility] [address] [id number] [place] [address]- 3916 13 Sep, 2013 [facility] [place] [facility] [address] [id number] [place] [address] 2546 10 Sep, 2013 [facility] [place] [facility] [address] [id number] [place] [address]- 6816 10 Sep, 2013 [facility] [place] [facility] [address] [id number] [place] [address]- 7306 02 Sep, 2013 [facility] [place] [facility] [address] [id number] [place] [address]- 6231 02 Sep, 2013 [facility] [place] [facility] [address] [id number] [place] [address]- 6603 15 Aug, 2013 [facility] [place] [facility] [address] [id number] [place] [address]- 0331 15 Aug, 2013 [facility] [place] [facility] [address] [id number] [place]86 16 Jul, 2013 [facility] [place] [facility] [address] [id number] [place] [address]- 8495 16 Jul, 2013 [facility] [place] [facility] [address] [id number] [place] [address]- 3282 14 Jul, 2013 [facility] [place] [facility] [address] [id number] [place] [address]- 2404 14 Jul, 2013 [facility] [place] [facility] [address] [id number] [place] [address]- 7362 08 Jul, 2013 [facility] [place] [facility] [address] [id number] [place] [address]- 6770 20 Sep, 2012 [facility] [place] [facility] [address] [id number] [place] [address]- 7515 19 Sep, 2012 [facility] [place] [facility] [address] [id number] [place] [address]- 8480 13 Sep, 2012 [facility] [place] [facility] [address] [id number] [place] [address]- 5633 08 Sep, 2012 [facility] [place] [facility] [address] [id number] [place] [address]- 0542 06 Sep, 2012 [facility] [place] [facility] [address] [id number] [place] [address]- 4700 06 Sep, 2012 [facility] [place] [facility] [address] [id number] [place] [address]- 1662 06 Sep, 2012 [facility] [place] [facility] [address] [id number] [place] [address]- 4892 03 Sep, 2012 [facility] [place] [facility] [address] [id number] [place] [address]- 5415 May, [facility] [address] [id number] [place] [address]- 2848 May, [facility] [place] [facility] [address] [id number] [place] [address]- 9587 May, [facility] [address] [id number] [place] [address]- 4791 May, [facility] [place] [facility] [address] [id number] [place] [address]- 3514 Apr, [facility] [address] [id number] [place] [address]- 6383 Apr, [facility] [place] [facility] [address] [id number] [place] [address]- 4713 Apr, [facility] [address] [id number] [place] [address]- 0228 Mar, [facility] [place] [facility] [address] [id number] [place] [address]- 1120 Mar, [facility] [place] [facility] [address] [id number] [place] [address]- 4751 Mar, [facility] [address] [id number] [place] [address]- 9033 Mar, [facility] [place] [facility] [address] [id number] [place] [address]- 9690 February, [facility] [place] [facility] [address] [id number] [place] [address]- 0948 February, [facility] [place] [facility] [address] [id number] [place] [address]- 4176 Jan, [facility] [place] [facility] [address] [id number] [id number] [address]174 Dec, [facility] [place] [facility] [address] [id number] [place] [address] Dec, [facility] [place] [facility] [address] [id number] [place] [address]- 3873 05 Dec, 2012 [facility] [address] [id number] [place] [address]- 1330 05 Dec, 2012 [facility] [address] [id number] [place] [address]- 6212 28 Dec, 2012 [facility] [place] [facility] [address] [id number] [place] [address]- 4199 27 Dec, 2012 [facility] [address] [id number] [place] [address]- 0513 Dec, [facility] [address] [id number] [place] [address]- 3082 25 Dec, 2012 [facility] [address] [id number] [place] [address]- 2516 22 Dec, 2012 [facility] [address] [id number] [place] [address]- 9291 15 Dec, 2012 [facility] [address] [id number] [place] [address]- 9195 14 Dec, 2012 [facility] [address] [id number] [place] [address]- 7283 Oct, [facility] [address] [id number] [place] [address]- 3185 Oct, [facility] [place] [facility] [address] [id number] [place] [address]- 7769 09 Oct, 2012 [facility] [place] [facility] [address] [id number] [place] [address]- 5658 Oct, [facility] [place] [facility] [address] [id number] [place] [address]- 3378 13 Sep, 2012 [facility] [place] [facility] [address] [id number] [place] [address]- 5403 Sep, [facility] [address] [id number] [place] [address]- 0870 Sep, [facility] [place] [facility] [address] [id number] [place] [address]- 6670 Sep, [facility] [place] [facility] [address] [id number] [place] [address]- 4927 Sep, [facility] [place] [facility] [address] [id number] [place] [address]- 7374 Sep, [facility] [place] [facility] [address] [id number] [place] [address]- 4956 Aug, [facility] [place] [facility] [address] [id number] [place] [address]- 3791 Aug, [facility] [place] [facility] [address] [id number] [place] [address]- 5601 Aug, [facility] [place] [facility] [address] [facility] [id number] [place] [address]- 1748 Aug, [facility] [place] [facility] [address] [id number] [place] [address]- 2340 Aug, [facility] [place] [facility] [address] [id number] [place] [address]- 3203 Aug, [facility] [place] [facility] [address] [facility] [id number] [place] [address]- 6726 Jul, [facility] [place] [facility] [address] [id number] [place] [address]- 6672 Jul, [facility] [place] [facility] [address] [id number] [place] [address]- 4697 Jul, [facility] [place] [facility] [address] [id number] [place] [address]- 0280 Jul, [facility] [place] [facility] [address] [facility] [id number] [place] [address]- 4704 Jul, [facility] [place] [facility] [address] [facility] [id number] [place] [address]- 2629 Jul, [facility] [place] [facility] [address] [id number] [place] [address]- 7770 27 Jul, 2012 [facility] [place] [facility] [address] [id number] [place] [address]- 5826 21 Jul, 2012 [facility] [place] [facility] [address] [id number] [place] [address]- 4166 20 Jul, 2012 [facility] [place] [facility] [address] [id number] [place] [address]- 2086 11 Jul, 2012 [facility] [place] [facility] [address] [id number] [place] [address]- 4549 Jul, [facility] [place] [facility] [address] [id number] [place] [address]- 7035 May, [facility] [place] [facility] [address] [id number] [place] [address]- 8389 May, [facility] [place] [facility] [address] [id number] [place] [address]- 3172 May, [facility] [place] [facility] [address] [id number] [place] [address]- 5317 May, [facility] [place] [facility] [address] [id number] [place] [address]- 0042 Apr, [facility] [place] [facility] [address] [id number] [place] [address]- 4490 Apr, [facility] [place] [facility] [address] [id number] [place] [address]- 4419 Apr, [facility] [place] [facility] [address] [id number] [place] [address]- 7402 Apr, [facility] [place] [facility] [address] [id number] [place] [address]- 2540 Apr, [facility] [place] [facility] [address] [id number] [place] [address]- 3320 Apr, [facility] [place] [facility] [address] [id number] [place] [address]- 6725 13 Apr, 2012 [facility] [place] [facility] [address] [id number] [place] [address]- 1927 09 Apr, 2012 [facility] [place] [facility] [address] [id number] [place] [address]- 3496 28 Mar, 2012 [facility] [place] [facility] [address] [id number] [place] [address]- 3325 27 Mar, 2012 [facility] [place] [facility] [address] [id number] [place] [address]- 2672 20 Mar, 2012 [facility] [place] [facility] [address] [id number] [place] [address]- 4162 15 Mar, 2012 [facility] [place] [facility] [address] [id number] [place] [address]- 8511 14 Mar, 2012 [facility] [place] [facility] [address] [id number] [place] [address]- 3227 Mar, [facility] [place] [facility] [address] [id number] [place] [address]- 4570 Mar, [facility] [place] [facility] [address] [id number] [place] [address]- 6105 Mar, [facility] [place] [facility] [address] [id number] [place] [address]- 7116 08 Mar, 2012 [facility] [place] [facility] [address] [id number] [place] [address]- 7124 February, [facility] [place] [facility] [address] [id number] [place] [address]- 9885 February, [facility] [place] [facility] [address] [id number] [place] [address]- 5763 February, [facility] [place] [facility] [address] [id number] [place] [address]- 2703 February, [facility] [place] [facility] [address] [id number] [place] [address]- 1828 13 Jan, 2012 [facility] [place] [facility] [address] [id number] [place] [address]- 2189 03 Jan, 2012 [facility] [place] [facility] [address] [id number] [place] [address]- 5267 28 Dec, 2011 [facility] [place] [facility] [address] [id number] [place] [address]- 2406 15 Dec, 2011 [facility] [place] [facility] [address] [id number] [place] [address]- 5846 14 Dec, 2011 [facility] [place] [facility] [address] [id number] [place] [address]- 0593 07 Dec, 2011 [facility] [place] [facility] [address] [id number] [place] [address]- 3274 28 Dec, 2011 [facility] [place] [facility] [address] [id number] [place] [address]- 7566 27 Dec, 2011 [facility] [place] [facility] [address] [id number] [place] [address]- 2050 Dec, [facility] [place] [facility] [address] [id number] [place] [address]- 2549 Dec, [facility] [place] [facility] [address] [id number] [place] [address]- 3721 Dec, [facility] [place] [facility] [address] [facility] [id number] [place] [address]- 0860 Dec, [facility] [place] [facility] [address] [facility] [id number] [place] [address]- 9351 Dec, [facility] [place] [facility] [address] [id number] [place] [address]- 5480 Dec, [facility] [place] [facility] [address] [id number] [place] [address]- 9638 Oct, [facility] [place] [facility] [address] [id number] [place] [address]- 3234 Oct, [facility] [place] [facility] [address] [id number] [place] [address]- 3866 Oct, [facility] [place] [facility] [address] [id number] [place] [address]- 6723 Oct, [facility] [place] [facility] [address] [id number] [place] [address]- 7661 Oct, [facility] [place] [facility] [address] [id number] [place] [address]- 3590 Oct, [facility] [place] [facility] [address] [id number] [place] [address]- 3376 16 Oct, 2011 [facility] [place] [facility] [address] [id number] [place] [address]- 2383 Oct, [facility] [place] [facility] [address] [id number] [place] [address]- 4352 Sep, [facility] [place] [facility] [address] [id number] [place] [address]- 2674 Sep, [facility] [place] [facility] [address] [id number] [place] [address]- 2355 Sep, [facility] [place] [facility] [address] [id number] [place] [address]- 9263 Aug, [facility] [place] [facility] [address] [id number] [place] [address]- 5866 Aug, [facility] [place] [facility] [address] [id number] [place] [address]- 6583 16 Aug, 2011 [facility] [place] [facility] [address] [id number] [place] [address]- 1329 14 Aug, 2011 [facility] [place] [facility] [address] [id number] [place] [address]- 6917 Aug, [facility] [place] [facility] [address] [id number] [place] [address]- 1782 19 Jul, 2011 [facility] [place] [facility] [address] [id number] [place] [address]- 0269 13 Jul, 2011 [facility] [place] [facility] [address] [facility] [id number] [place] [address]- 9306 May, [facility] [address] [facility] [id number] [id number] 8530 Dec, [facility] [address] [id number] [place] 4292 Oct, [facility] [address] [id number] [place] [address]- 4137 Sep, [facility] [address] [id number] [place] [address]- 3203 Sep, [facility] [address] [id number] [place] [address]- 7287 Sep, IMMUNIZATIONS No Known Immunizations SOCIAL HISTORY Never Assessed REASON FOR VISIT Requests return call PLAN OF CARE VITAL SIGNS MEDICATIONS Unknown [...] veinous reflux Surgical History Left Knee SOA-Dr. Melendrez-[facility] 05/19/16 Surgical History Colonoscopy- Dr Castanon 01/26/2017 Hospitalization History surgeries Hospitalization History Left Knee SOA--Dr. Melendrez--[facility] Hospitalization History Septic shock, UTI-[facility] 07/27/17 Hospitalization History Multiple falls, hyperglycemia, sepsis 07/2017 Hospitalization History Alcoholism, depression, DM, Falls-[facility] 08/23/17 Hospitalization History COPD exacerbation-[facility] 11/25/17 Hospitalization History COPD exacerbation-[facility] 11/28/17
--- OUTSIDE RECORDS SUMMARY | 2018-05-10 03:32 | XMS REPORT ---
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 Active 410384789 Problem Psoriatic arthritis L40.50 Active 387851885 Problem Psychophysiological insomnia F51.04 Active 76919020 Problem Other specified 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 Active 015690881 Problem Obesity (BMI 30-39.9) E66.9 Active 016234119 Problem Major depressive disorder, recurrent, moderate F33.1 Active 10968579 Problem Essential hypertension I10 Active 10582968 Problem Type 2 diabetes mellitus with hyperglycemia E11.65 Active 682890537039077 Problem Alcoholism F10.20 Active 8566328 Problem Frequent falls R29.6 Active 305070218 Problem Benzodiazepine abuse F13.10 Active 784868397 Problem PTSD (post-traumatic stress disorder) F43.10 Active 57844147 Problem Eating disorder F50.9 Active 68257982 Problem Attention-deficit hyperactivity disorder, combined type F90.2 Active 07682077 Problem COPD exacerbation J44.1 Active 080848072 Problem Anxiety F41.9 Active 91618705 Problem Decubitus ulcer of left buttock, stage 2 L89.322 Active 480953439 Problem BMI 40.0-44.9, adult Z68.41 Active 127021348 Problem Alcohol abuse F10.10 Active 74816143 Problem Pneumonia due to methicillin resistant Staphylococcus aureus, unspecified laterality, unspecified part of lung J15.212 Active 005572014950148 Problem Type 2 diabetes mellitus with unspecified complications E11.8 Active 24080213 Problem Attention-deficit hyperactivity disorder, predominantly hyperactive type F90.1 Active 850502935 Problem Type 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 Active 68344744 Problem Ulcer of right foot, unspecified ulcer stage L97.519 Active 03723203 Problem Attention deficit R41.840 Active 04014060 Problem Mental disorder, not otherwise specified F99 Active 21968421 Problem Insomnia due to other mental disorder F51.05 Active 87105830 ALLERGIES Substance Reaction Event Type Date Status Methylphenidate twitching Drug Allergy 11 Jul, 2017 Active ENCOUNTERS Encounter Location Date Diagnosis [place] [address] [address]29 14 Mar, 2018 [place] [address] [place] [id number] [place] [address] 17360- 1403 Jan, [facility] [address] 95289- 4187 Dec, Major depressive disorder, recurrent episode, unspecified severity F33.9 ; Generalized anxiety disorder F41.1 and Eating disorder F50.9 [place] [address] [id number] [place] [address] 98456- 6826 Dec, [facility] [address] [id number] [place] [address] 35340- 7869 Dec, [facility] [address] [id number] [place] [address] 78714- 5287 Dec, [facility] [address] [id number] [place] [address] 96562- 1375 Dec, Increased urinary frequency R35.0 ; Frequent falls R29.6 ; Decubitus ulcer of left buttock, stage 2 L89.322 ; Benzodiazepine abuse F13.10 ; BMI 40.0-44.9, adult Z68.41 and Yeast infection B37.9 [place] [address] [place] [id number] [place] [address] 00340- 9120 Dec, [facility] [address], [place] [address] 4418 Dec, [facility] [id number] [place] [address] 85797- 7900 Dec, Increased urinary frequency R35.0 [facility] [id number] [place] [address] 64700- 8809 Dec, Increased urinary frequency R35.0 [facility] [address] [id number] [place] [address] 90056- 0219 Dec, Generalized anxiety disorder F41.1 ; Major depressive disorder, recurrent, moderate F33.1 and Psychophysiological insomnia F51.04 [place] [id number] [place] [address] 08218- 7610 Dec, BMI 40.0-44.9, adult Z68.41 ; Type 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 ; Pneumonia due to methicillin resistant Staphylococcus aureus, unspecified laterality, unspecified part of lung J15.212 and COPD exacerbation J44.1 [facility] [address], [place] [address] Dec, [facility] [address] [place] [id number] [place] [address] [id number] Dec, [facility] [address] [place] [id number] [place] [address] [id number] Oct, [facility] [id number] [place] [address] 81318 -0969 Oct, Frequency of urination R35.0 ; Bronchitis J40 and BMI 40.0- 44.9, adult Z68.41 [facility] [address] [place] [id number] [place] [address] [id number] Oct, [facility] [address], [place] [address] 9296 Oct, [facility] [id number] [place] [address] 96213- 6946 Oct, BMI 40.0-44.9, adult Z68.41 ; Type 2 diabetes mellitus with hyperglycemia E11.65 ; Essential hypertension I10 ; Vaginal yeast infection B37.3 ; Anxiety F41.9 and Alcoholism F10.20 [place] [address] [place] [id number] [place] [address] 24645- 7321 Oct, [address] 49910- 6666 Oct, [address] 34323- 4517 Sep, [address] 95404- 6930 Sep, Major depressive disorder, recurrent episode, unspecified severity F33.9 ; Generalized anxiety disorder F41.1 and Eating disorder F50.[address] 40447- 5063 Sep, Major depressive disorder, recurrent, moderate F33.1 ; Type 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 ; Alcohol abuse F10.10 ; Obesity (BMI 30-39.9) E66.9 and Psychophysiological insomnia F51.04 [place] [id number] [place] [address] 18240- 1045 Sep, Diabetes E11.9 and Generalized anxiety disorder F41.1 [place] [id number] [place] [address] 65744- 8002 Sep, Major depressive disorder, recurrent episode, unspecified severity F33.9 ; Generalized anxiety disorder F41.1 and Eating disorder F50.9 [place] [id number] [place] [address] 67507- 9981 Sep, [place] [id number] [place] [address] 07431- 5535 Aug, [place] [id number] [place] [address] 09665- 2557 Aug, Insomnia due to other mental disorder F51.05 ; Mental disorder, not otherwise specified F99 ; Attention deficit R41.840 ; Ulcer of right foot, unspecified ulcer stage L97.519 ; Cough R05 ; Diabetes E11.9 ; Sore in mouth K13.79 ; Generalized anxiety disorder F41.1 ; Major depressive disorder , recurrent episode, unspecified severity F33.9 and BMI 40.0-44.9, adult Z68.41 [place] [address] [place] [id number] [place] [address] 30203- 9337 Aug, [place] [address] [place] [id number] [place] [address] 10309- 4658 Aug, [place] [address] [place] [id number] [place] [address] 73545- 7824 Aug, [place] [address] [place] [id number] [place] [address] 16057- 5210 Aug, [place] [address] [place] [address] 35361- 5350 Aug, Diabetes E11.9 [facility] [employer] [address] [place] [id number] Aug, Falling R29.6 ; Alcohol abuse F10.10 ; Major depressive disorder, recurrent episode, unspecified severity F33.9 ; 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 I10 ; Type 2 diabetes mellitus with unspecified complications E11.8 and 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 [place] [id number] [place] [id number] Aug, [facility] [employer] [address] [place] [id number] Aug, Alcohol abuse F10.10 ; Major depressive disorder, recurrent episode, unspecified severity F33.9 ; Generalized anxiety disorder F41.1 ; 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 ; Psoriatic arthritis L40.50 and Diabetes E11.9 [place] [id number] [id number] Aug, [place] [address] [place] [id number] [place] [address] [id number] Jul, [facility] [address], [place] [address]- 5026 Jul, [facility] [address] [place] [id number] [place] [address] 12037- 9671 Jul, Generalized anxiety disorder F41.1 [facility] [id number] [place] [address] 97392- 2401 Jul, [facility] [address] [place] [id number] [place] [address] 87216- 1018 Jul, [facility] [id number] [place] [address] 93045- 0565 Jul, Generalized anxiety disorder F41.1 ; Major depressive disorder, recurrent episode, unspecified severity F33.9 ; PTSD (post-traumatic stress disorder) F43.10 ; Eating disorder F50.9 and Attention-deficit hyperactivity disorder, predominantly hyperactive type F90.1 [facility] [id number] [place] [address] 45388- 7191 Jul, [facility] [id number] [place] [address] 98488- 0990 Jul, [facility] [id number] [place] [address] 26904- 3931 Jul, detention 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 ; Type 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 ; Urinary tract infection, site not specified N39.0 ; Sepsis, unspecified organism A41.9 and Essential hypertension I10 [facility] [id number] [id number] Jul, [facility] [id number] [place] [address] 75545 -9214 Jul, [facility] [id number] [place] [address] 83161- 3577 Jul, Generalized anxiety disorder F41.1 [facility] [id number] [place] [address] 94125- 7486 Jul, [facility] [address], [place] [address]- 5806 Jul, Generalized anxiety disorder F41.1 [facility] [id number] [place] [address] 88083- 5836 May, Generalized anxiety disorder F41.1 ; Major depressive disorder, recurrent episode, unspecified severity F33.9 ; PTSD (post-traumatic stress disorder) F43.10 ; Eating disorder F50.9 and Attention-deficit hyperactivity disorder, predominantly hyperactive type F90.1 [facility] [address], [place] [address]- 0335 May, Diabetes E11.9 [facility] [id number] [place] [address] 73734 -8071 May, Acute non-recurrent maxillary sinusitis J01.00 and Diabetes E11.9 [facility] [address] [place] [id number] [place] [address] 79388- 3280 May, [facility] [id number] [place] [address] 49871- 9802 May, [facility] [address] [place] [id number] [place] [address] 89482- 6821 May, Generalized anxiety disorder F41.1 [facility] [address], [place] [address]- 6952 Apr, [facility] [id number] [place] [address] 42985- 2211 Apr, [facility] [address], [place] [address]- 0476 Apr, [facility] [address] [place] [id number] [place] [address] 73582- 5047 Apr, Generalized anxiety disorder F41.1 ; Major depressive disorder, recurrent episode, unspecified severity F33.9 ; PTSD (post-traumatic stress disorder) F43.10 ; Eating disorder F50.9 and Attention-deficit hyperactivity disorder, predominantly hyperactive type F90.1 [place] [address], [place] [address]- 8101 Apr, Major depressive disorder, recurrent, moderate F33.1 [place] [address] [place] [id number] [place] [address] 15199- 5178 Mar, Diabetes E11.9 [place] [address] [place] [id number] [place] [address] 52466- 9538 Mar, Attention-deficit hyperactivity disorder, combined type F90.2 [place] [address] [place] [id number] [place] [address] 52046- 4192 Mar, [place] [address] [place] [id number] [place] [address] 28814- 0179 Mar, Diabetes E11.9 [place] [address] [place] [id number] [place] [address] 41245- 0566 Mar, 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 ; Psoriatic arthritis L40.50 ; Other specified 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 and 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 I10 [place] [address] [place] [id number] [place] [address] 28713- 6172 February, Back pain M54.9 [place] [address] [place] [id number] [place] [address] 88210- 7130 February, Attention-deficit hyperactivity disorder, combined type F90.2 [place] [id number] [place] [address] 90709- 5806 February, Major depressive disorder, recurrent episode, unspecified severity F33.9 and Generalized anxiety disorder F41.1 [place] [id number] [place] [address] 52049- 8078 Jan, Attention-deficit hyperactivity disorder, combined type F90.2 [place] [id number] [place] [address] 03336- 9259 Jan, Major depressive disorder, recurrent, moderate F33.1 ; Generalized anxiety disorder F41.1 and Attention-deficit hyperactivity disorder , combined type F90.2 [facility] [address] [place] [id number] [place] [address] 30922- 4021 30 Dec, 2016 Major depressive disorder, recurrent episode, unspecified severity F33.9 ; Generalized anxiety disorder F41.1 and Attention-deficit hyperactivity disorder, predominantly hyperactive type F90.1 [facility] [address] [place] [id number] [place] [address] 50721- 6735 30 Dec, 2016 Major depressive disorder, recurrent episode, unspecified severity F33.9 and Generalized anxiety disorder F41.1 [place] [address] [place] [id number] [place] [address] 02450- 6737 Dec, [place] [address] 87829- 8471 Dec, [place] [address] [place] [id number] [place] [address] 73762- 1191 Dec, Major depressive disorder, recurrent episode, unspecified severity F33.9 and Generalized anxiety disorder F41.1 [place] [address] [place] [id number] [place] [address] 94370- 3382 Dec, Back pain M54.9 [facility] [address] [place] [id number] [place] [address] 88577- 5141 17 Dec, 2016 Eustachian tube dysfunction, right H69.81 and Arthritis M19.90 [place] [address] [place] [id number] [place] [address] 03513- 8822 14 Dec, 2016 [facility] [address] [place] [id number] [place] [address] 31103- 0451 14 Dec, 2016 [facility] [address] [place] [id number] [place] [address] 50304- 0510 07 Dec, 2016 Major depressive disorder, recurrent episode, unspecified severity F33.9 [facility] [address] [place] [id number] [place] [address] 84516- 0952 Oct, [facility] [address] [place] [id number] [place] [address] 61239 -8220 Oct, Acute non-recurrent pansinusitis J01.40 and Sore throat J02.9 [facility] [address] [place] [id number] [place] [address] 74786- 9350 Oct, Major depressive disorder, recurrent episode, unspecified severity F33.9 [facility] [address] [place] [id number] [place] [address] 04337- 8313 Oct, Major depressive disorder, recurrent episode, unspecified severity F33.9 and Generalized anxiety disorder F41.1 [place] [address] [place] [id number] [place] [address] 93999- 3617 Sep, [facility] [address] [place] [id number] [place] [address] 08077- 1692 Sep, Major depressive disorder, recurrent episode, unspecified severity F33.9 [place] [address] [place] [id number] [place] [address] 98725- 9319 Sep, Major depressive disorder, recurrent episode, unspecified severity F33.9 [facility] [address] [place] [id number] [place] [address] 24468 -2457 Sep, Sore throat J02.9 [place] [address] [place] [id number] [place] [address] 61413- 4918 Sep, Generalized anxiety disorder F41.1 ; Major depressive disorder, recurrent episode, unspecified severity F33.9 and Attention-deficit hyperactivity disorder, predominantly hyperactive type F90.1 [place] [address] [place] [id number] [place] [address] 98683- 4267 08 Sep, 2016 Major depressive disorder, recurrent episode, unspecified severity F33.9 and Generalized anxiety disorder F41.1 [place] [address] [place] [id number] [place] [address] 76043- 4730 Sep, Psoriatic arthritis L40.50 [place] [address] [place] [id number] [place] [address] 77766- 2318 Sep, 2016 Diabetes E11.9 ; detention 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 ; Back pain M54.9 and Encounter for immunization Z23 [facility] [address] [place] [id number] [address]- 1421 Aug, [facility] [address] [place] [id number] [place] [address] 10159- 6347 Aug, [facility] [address] [place] [id number] [place] [address] 51933- 6229 Jul, Major depressive disorder, recurrent episode, unspecified severity F33.9 ; Attention-deficit hyperactivity disorder, predominantly hyperactive type F90.1 and Generalized anxiety disorder F41.1 [facility] [address] [place] [id number] [place] [address] 99257- 0300 Jul, [facility] [address] [place] [id number] [place] [address] 89770- 6449 22 Jul, 2016 Major depressive disorder, recurrent, in partial remission F33.41 and Generalized anxiety disorder F41.1 [facility] [address] [place] [id number] [place] [address] 08406- 7968 Jul, [facility] [address] [place] [id number] [place] [address] 29885- 3999 Jul, [facility] [address] [place] [id number] [place] [address] 08210- 6182 Jul, [facility] [id number] [place] [address] 97619- 8666 Jul, [facility] [address] [place] [id number] [place] [address] 02080- 0575 Jul, Diabetes E11.9 [facility] [id number] [place] [address] 77520- 0474 May, [facility] [address] [place] [id number] [place] [address] 23454- 3862 May, [facility] [address], [place] [address]- 4930 May, [facility] [address] [id number] [address]- 9581 May, Major depressive disorder, recurrent episode, unspecified severity F33.9 ; Generalized anxiety disorder F41.1 and Attention-deficit hyperactivity disorder, predominantly hyperactive type F90.1 [place] [address], [place] [address]- 2795 May, [place] [address] [place] [id number] [place] [address] 23676- 7831 May, Diabetes E11.9 [place] [address] [place] [id number] [place] [address] 05387- 4544 May, [place] [address] [place] [id number] [place] [address] 86695- 7310 May, [facility] [address] [facility] [place] [id number] May, Diabetes E11.9 ; Generalized anxiety disorder F41.1 and Nausea R11.0 [place] [address] [place] [id number] [place] [address] 59826- 1534 May, Psoriatic arthritis L40.50 and Candidiasis of female genitalia B37.3 [place] [address] [place] [id number] [place] [address] 18300- 1759 May, [place] [address] [place] [id number] [place] [address] 90131- 4548 Apr, [place] [id number] [place] [address] 52005- 4545 Apr, [place] [address] [place] [id number] [place] [address] 79299- 2918 Apr, [place] [address] [place] [id number] [place] [address] 31214- 3208 Apr, Generalized anxiety disorder F41.1 ; Major depressive disorder, recurrent episode, unspecified severity F33.9 and Attention-deficit hyperactivity disorder, predominantly hyperactive type F90.1 [place] [address] [place] [id number] [place] [address] 69435- 6445 Apr, [facility] [address], [place] [address]- 2913 Apr, [facility] [address], [place] [address]- 8320 Apr, [facility] [address], [place] [address]- 4919 Apr, [facility] [address] [place] [id number] [place] [address] 77320- 1491 Apr, [facility] [id number] [place] [address] 93371- 2344 Mar, Attention-deficit hyperactivity disorder, predominantly hyperactive type F90.1 [facility] [address] [place] [address]- 7683 Mar, [facility] [id number] [place] [address] 53227- 8612 Mar, [facility] [address] [place] [id number] [place] [address] 49921- 8612 Mar, Major depressive disorder, recurrent episode, unspecified severity F33.9 and Generalized anxiety disorder F41.1 [facility] [address] [address]- 3620 February, Diabetes E11.9 [facility] [address] [place] [address]18 February, OME (otitis media with effusion), bilateral H65.93 [facility] [address], [place] [address]- 9103 February, Back pain M54.9 [facility] [address], [place] [address]- 8185 February, [facility] [address] [place] [address]- 8253 February, Nausea R11.0 [facility] [address] [id number] [place] [address] 01612- 1869 February, [facility] [address] [place] [id number] [place] [address] 50738- 5437 February, Pre-op evaluation Z01.818 ; Type 2 diabetes mellitus with hyperglycemia E11.65 and 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 [place] [address] [place] [place] [id number] [place] [address] 54109- 7817 February, [facility] [id number] [place] [address] 30250 -1303 February, Right otitis externa H60.91 [place] [place] [address] [address]16- 9945 Jan, [place] [address] [id number] [place] [address] 94987- 9040 Jan, Psoriatic arthritis L40.50 and Arthralgia, unspecified joint M25.50 [place] [address] [place] [id number] [place] [address] 66289- 7964 Jan, Major depressive disorder, recurrent episode, unspecified severity F33.9 ; Generalized anxiety disorder F41.1 and Attention-deficit hyperactivity disorder, unspecified type F90.9 [place] [id number] [place] [address] 10472- 1350 Jan, [place] [address] [place] [id number] [place] [address] 22541- 7911 Jan, [place] [address] [place] [id number] [place] [address] 65418- 6525 Jan, Major depressive disorder, recurrent episode, unspecified severity F33.9 and Generalized anxiety disorder F41.1 [place] [address] [place] [id number] [place] [address] 97319- 5174 Jan, [place] [address] [place] [id number] [place] [address] 54988- 6904 Dec, 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 I10 and Arthritis M19.90 [place] [id number] [address]14 Dec, [facility] [address], [place] [address] 3744 Dec, [facility] [address], [place] [address] 6508 Dec, [facility] [id number] [place] [address] 60776- 9485 Dec, [facility] [id number] [place] [address] 20307- 8359 Dec, [facility] [id number] [place] [address] 64953- 9508 Dec, Major depressive disorder, recurrent episode, unspecified severity F33.9 and Generalized anxiety disorder F41.1 [facility] [id number] [place] [address] 29295- 6197 Dec, Diabetes E11.9 ; Back pain M54.9 ; Thrush B37.0 and 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 I10 [facility] [id number] [place] [address] 46493- 8757 Dec, Major depressive disorder, recurrent episode, unspecified severity F33.9 and Generalized anxiety disorder F41.1 [facility] [address], [place] [address]- 7303 Dec, Major depressive disorder, recurrent episode, in partial or unspecified remission 296.35 ; Major depressive disorder, recurrent episode, unspecified severity F33.9 and Generalized anxiety disorder 300.02 [facility] [address], [place] [address]- 7791 Dec, [facility] [address], [place] [address]- 4406 Oct, [facility] [address], [place] [address]- 6750 Oct, [facility] [address] [id number] [place] [address] 06408- 2431 Oct, [facility] [address] [id number] [place] [address] 32078- 7586 Oct, [facility] [address] [id number] [place] [address] 38327- 1263 Oct, Major depressive disorder, recurrent, moderate F33.1 and Attention-deficit hyperactivity disorder, unspecified type F90.9 [place] [address] 39999- 6907 Oct, detention (current) use of opiate analgesic Z79.891 [place] [address] 02629- 0501 Oct, [place] [address] 71476- 1428 Oct, [facility] [address] 89355 -2570 Sep, URI (upper respiratory infection) J06.9 ; Psoriasis L40.9 ; Cough R05 and Tobacco abuse Z72.0 [place] [address] [place] [id number] [place] [address] 98054- 3023 Sep, Major depressive disorder, recurrent episode, in partial or unspecified remission 296.35 ; Generalized anxiety disorder 300.02 and ADHD, 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 [facility] [address] [id number] [place] [address] 27227 -3803 Sep, Acute sinusitis, unspecified J01.90 [place] [address] [place] [id number] [place] [address] 64030- 1777 Sep, [place] [address] [place] [id number] [place] [address] 93609- 5159 Sep, Major depressive disorder, recurrent, moderate F33.1 ; Generalized anxiety disorder F41.1 and Attention-deficit hyperactivity disorder , combined type F90.2 [place] [address] [place] [address]- 8620 Sep, [facility] [address], [place] [address]- 3956 Aug, [facility] [address], [place] [address]- 0491 Aug, [facility] [id number] [place] [address] 79026- 4051 Aug, Diabetes E11.9 and Anxiety F41.9 [facility] [address] [place] [id number] [place] [address] 59200- 7095 Aug, Major depressive disorder, recurrent episode, unspecified severity F33.9 and Generalized anxiety disorder F41.1 [facility] [id number] [place] [address] 71385- 1592 Aug, [facility] [address] [place] [id number] [place] [address] 19855- 7751 Jul, [facility] [id number] [place] [address] 67831- 9213 Jul, [facility] [id number] [place] [address] 36889- 5053 Jul, [facility] [address], [place] [address]- 2779 Jul, [facility] [address], [place] [address]- 6122 Jul, Major depressive disorder, recurrent episode, in partial or unspecified remission 296.35 ; Generalized anxiety disorder 300.02 and ADHD, 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 [facility] [address], [place] [address]- 5911 10 Jul, 2015 Major depressive disorder, recurrent episode, in partial or unspecified remission 296.35 ; Generalized anxiety disorder 300.02 and ADHD, 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 [facility] [address], [place] [address]- 5142 Jul, [facility] [address], [place] [address]- 5377 May, [facility] [address] [id number] [place] [address] 64208- 3511 May, [facility] [address], [place] [address]- 2507 May, DM w/o complication type II 250.00 ; Dyspepsia 536.8 and PAD (peripheral artery disease) 443.9 [facility] [id number] [place] [address] 06133- 8935 May, Major depressive disorder, recurrent episode, moderate 296.32 and Generalized anxiety disorder 300.02 [facility] [address] [place] [id number] [place] [address] 32764- 9286 May, [facility] [address] [place] [id number] [place] [address] 23189- 6712 May, Major depressive disorder, recurrent episode, moderate 296.32 and Generalized anxiety disorder 300.02 [facility] [address], [place] [address]- 4947 May, [facility] [id number] [place] [address] 55535- 8622 Apr, [facility] [address], [place] [address]- 8818 Apr, Major depressive disorder, recurrent episode, moderate 296.32 and Generalized anxiety disorder 300.02 [facility] [address], [place] [address]- 2837 Apr, [facility] [id number] [place] [address] 00271- 9017 Apr, [facility] [address], [place] [address]- 9939 Apr, Generalized anxiety disorder 300.02 ; ADHD, 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 and Depression, major, recurrent, moderate 296.32 [facility] [address] 1435 Apr, Major depressive disorder, recurrent episode, moderate 296.32 and Generalized anxiety disorder 300.02 [facility] [id number] [place] [address] 41359- 6314 Apr, [facility] [id number] [place] [address] 48729687- 6648 Apr, [facility] [address] [place] [id number] [place] [address] 57655- 1670 Mar, [facility] [id number] [place] [address] 18368- 9350 Mar, Major depressive disorder, recurrent episode, moderate 296.32 and Generalized anxiety disorder 300.02 [facility] [id number] [place] [address] 28811- 9131 Mar, ADHD, 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 ; Major depressive disorder, recurrent episode, severe, without mention of psychotic behavior 296.33 and Generalized anxiety disorder 300.02 [facility] [address], [place] [address]- 5553 February, Major depressive disorder, recurrent episode, moderate 296.32 and Generalized anxiety disorder 300.02 [facility] [address], [place] [address]- 3969 February, [facility] [id number] [place] [address] 41449- 0131 February, [facility] [address], [place] [address]- 9602 February, [facility] [address] [place] [id number] [place] [address] 07156- 8463 February, [facility] [address], [place] [address]- 1472 February, DM w/o complication type II 250.00 ; Impacted cerumen 380.4 ; Essential hypertension, benign 401.1 and Irritable colon 564.1 [facility] [place] [facility] [address] [id number] [place] [address]- 8133 February, [facility] [place] [facility] [address] [id number] [place] [address]- 3250 February, [facility] [place] [facility] [address] [id number] [place] [address]- 7816 Jan, [facility] [place] [facility] [address] [id number] [place] [address]- 2353 Dec, [facility] [place] [facility] [address] [id number] [place] [address]- 9500 30 Dec, 2014 [facility] [place] [facility] [address] [id number] [place] [address]- 7491 Dec, [facility] [place] [facility] [address] [id number] [place] [address]- 3548 Dec, [facility] [place] [facility] [address] [id number] [place] [address]- 3486 Dec, [facility] [place] [facility] [address] [id number] [place] [address]- 4482 Dec, [facility] [place] [facility] [address] [facility] [id number] [place] [address]- 8373 Dec, [facility] [place] [facility] [address] [id number] [place] [address]- 6832 Dec, [facility] [place] [facility] [address] [id number] [place] [address]- 7626 Dec, [facility] [place] [facility] [address] [id number] [place] [address]- 4456 Dec, [facility] [place] [facility] [address] [id number] [place] [address]- 1336 Dec, [facility] [place] [facility] [address] [id number] [place] [address]- 9036 Dec, [facility] [place] [facility] [address] [id number] [place] [address]- 5536 Dec, [facility] [place] [facility] [address] [id number] [place] [address]- 1085 Dec, [facility] [place] [facility] [address] [id number] [place] [address]- 0866 Dec, [facility] [place] [facility] [address] [id number] [place] [address]- 7006 Dec, [facility] [place] [facility] [address] [id number] [place] [address]- 1952 Oct, [facility] [place] [facility] [address] [id number] [place] [address]- 1200 Oct, [facility] [place] [facility] [address] [id number] [place] [address]- 6377 Oct, [facility] [place] [facility] [address] [id number] [place] [address]- 3408 Oct, [facility] [place] [facility] [address] [id number] [place] [address]- 2970 Oct, [facility] [place] [facility] [address] [id number] [place] [address]- 6938 Oct, [facility] [place] [facility] [address] [facility] [id number] [place] [address]- 8433 Oct, [facility] [place] [facility] [address] [id number] [place] [address]- 3485 Oct, [facility] [place] [facility] [address] [id number], [place] [address]- 5079 Oct, [facility] [place] [facility] [address] [id number] [place] [address]- 4796 Oct, [facility] [place] [facility] [address] [id number] [place] [address]- 8006 Oct, [facility] [place] [facility] [address] [id number] [place] [address]- 6850 Sep, [facility] [place] [facility] [address] [id number] [place] [address]- 4570 Sep, [facility] [place] [facility] [address] [id number] [place] [address]- 7886 Sep, [facility] [place] [facility] [address] [id number] [place] [address]- 3371 Sep, [facility] [place] [facility] [address] [id number] [place] [address]- 7053 Sep, [facility] [place] [facility] [address] [id number] [place] [address]- 6461 Sep, [facility] [place] [facility] [address] [id number] [place] [address]- 4301 Sep, [facility] [place] [facility] [address] [id number] [place] [address]- 4050 Sep, [facility] [place] [facility] [address] [id number] [place] [address]- 7727 Aug, [facility] [place] [facility] [address] [id number] [place] [address]- 6799 Aug, [facility] [place] [facility] [address] [id number] [place] [address]- 6597 Aug, [facility] [place] [facility] [address] [id number] [place] [address]- 0944 Aug, [facility] [place] [facility] [address] [id number] [place] [address]- 5508 Aug, [facility] [place] [facility] [address] [id number] [place] [address]- 6160 Aug, [facility] [place] [facility] [address] [id number] [place] [address]- 1263 Aug, [facility] [place] [facility] [address] [id number] [place] [address]- 3276 Aug, [facility] [place] [facility] [address] [id number] [place] [address]- 1493 Aug, [facility] [place] [facility] [address] [id number] [place] [address]- 7928 Aug, [facility] [place] [facility] [address] [id number] [place] 3496 Aug, [facility] [place] [facility] [address] [id number] [place] 1215 Aug, [facility] [place] [facility] [address] [id number] [place] [address]- 6487 Aug, [facility] [place] [facility] [address] [id number] [place] [address]- 0898 Aug, [facility] [place] [facility] [address] [id number] [place] [address]- 2531 Jul, [facility] [place] [facility] [address] [id number] [place] [address]- 9555 Jul, [facility] [place] [facility] [address] [id number], [place] [address]- 1716 Jul, [facility] [place] [facility] [address] [id number] [place] [address]- 2334 Jul, [facility] [place] [facility] [address] [id number] [place] [address]- 1748 Jul, [facility] [place] [facility] [address] [id number], [place] [address]- 1154 Jul, [facility] [place] [facility] [address] [id number], [place] [address]- 1948 Jul, [facility] [place] [facility] [address] [id number] [place] [address]- 5515 Jul, [facility] [place] [facility] [address] [id number] [place] [address]- 1112 Jul, [facility] [place] [facility] [address] [id number] [place] [address]- 1632 Jul, [facility] [place] [facility] [address] [id number] [place] [address]- 7281 Jul, [facility] [place] [facility] [address] [id number] [place] [address]- 9211 Jul, [facility] [place] [facility] [address] [id number] [place] [address]- 4890 Jul, [facility] [place] [facility] [address] [id number] [place] [address]- 0512 Jul, [facility] [place] [facility] [address] [id number] [place] [address]- 4442 May, [facility] [place] [facility] [address] [id number] [place] [address]- 3029 May, [facility] [place] [facility] [address] [id number] [place] [address]- 4437 May, [facility] [place] [facility] [address] [id number] [place] [address]- 5664 May, [facility] [place] [facility] [address] [id number] [place] [address]- 5683 May, [facility] [place] [facility] [address] [id number] [place] [address]- 2389 May, [facility] [place] [facility] [address] [id number] [place] [address]- 9377 May, [facility] [place] [facility] [address] [id number] [place] [address]- 0246 May, [facility] [place] [facility] [address] [id number] [place] [address]- 8478 May, [facility] [place] [facility] [address] [id number] [place] [address]- 2753 May, [facility] [place] [facility] [address] [id number] [place] [address]- 1615 May, [facility] [place] [facility] [address] [id number] [place] [address]- 9808 May, [facility] [place] [facility] [address] [id number] [place] [address]- 8833 Apr, [facility] [place] [facility] [address] [id number] [place] [address]- 9414 Apr, [facility] [place] [facility] [address] [id number] [place] [address]- 4241 Apr, [facility] [place] [facility] [address] [id number] [place] [address]- 5537 Apr, [facility] [place] [facility] [address] [id number] [place] [address]- 1110 Apr, [facility] [place] [facility] [address] [id number] [place] [address]- 4720 Apr, [facility] [place] [facility] [address] [id number] [place] [address]- 6055 Mar, [facility] [place] [facility] [address] [id number] [place] [address]- 0147 Mar, [facility] [place] [facility] [address] [id number] [place] [address]- 6796 Mar, [facility] [place] [facility] [address] [id number] [place] [address]- 2561 Mar, [facility] [place] [facility] [address] [id number] [place] [address]- 8468 Mar, [facility] [place] [facility] [address] [id number] [place] [address]- 9317 Mar, [facility] [place] [facility] [address] [id number] [place] [address]- 4868 Mar, [facility] [place] [facility] [address] [id number] [place] [address]- 2577 Mar, [facility] [place] [facility] [address] [id number] [place] [address]- 8195 Mar, [facility] [place] [facility] [address] [id number] [place] [address]- 7272 Mar, [facility] [place] [facility] [address] [id number] [place] [address]- 1193 Mar, [facility] [place] [facility] [address] [id number] [place] [address]- 8863 Mar, [facility] [place] [facility] [address] [id number] [place] [address]- 0056 Mar, [facility] [place] [facility] [address] [id number] [place] [address]- 7639 February, [facility] [place] [facility] [address] [id number] [place] [address]- 3433 February, [facility] [place] [facility] [address] [id number] [place] [address]- 1800 February, [facility] [place] [facility] [address] [id number] [place] [address]- 4616 February, [facility] [place] [facility] [address] [id number] [place] [address]- 2874 February, [facility] [place] [facility] [address] [id number] [place] [address]- 5371 February, [facility] [place] [facility] [address] [id number] [place] [address]- 1758 February, [facility] [place] [facility] [address] [id number] [place] [address]- 3639 February, [facility] [place] [facility] [address] [id number] [place] [address]- 8758 February, [facility] [place] [facility] [address] [id number] [place] [address]- 3385 February, [facility] [place] [facility] [address] [id number] [place] [address]- 8655 February, [facility] [place] [facility] [address] [id number] [place] [address]- 6490 February, [facility] [place] [facility] [address] [id number] [place] [address]- 3274 February, [facility] [address] [id number] [place] [address]- 7263 February, [facility] [place] [facility] [address] [id number] [place] [address]- 5308 Jan, [facility] [place] [facility] [address] [id number] [place] [address]- 9634 Jan, [facility] [place] [facility] [address] [id number] [place] [address]- 0083 Jan, [facility] [place] [facility] [address] [id number] [place] [address]- 8299 Jan, [facility] [place] [facility] [address] [id number] [place] [address]- 4519 Jan, [facility] [place] [facility] [address] [id number] [place] [address]- 8331 Jan, [facility] [address] [id number] [place] [address]- 7340 Jan, [facility] [place] [facility] [address] [id number] [place] [address]- 7886 Jan, [facility] [place] [facility] [address] [id number] [place] [address]- 7903 Jan, [facility] [place] [facility] [address] [id number] [place] [address]- 4269 Dec, [facility] [place] [facility] [address] [id number] [place] [address] Dec, [facility] [place] [facility] [address] [id number] [place] [address] Dec, [facility] [place] [facility] [address] [id number] [place] [address] Dec, [facility] [place] [facility] [address] [id number] [place] [address] Dec, [facility] [place] [facility] [address] [id number] [place] [address] Dec, [facility] [place] [facility] [address] [id number] [place] [address] Dec, [facility] [place] [facility] [address] [id number] [place] [address] Dec, [facility] [place] [facility] [address] [id number] [place] [address] Dec, [facility] [place] [facility] [address] [id number] [place] [address] Dec, [facility] [place] [facility] [address] [id number] [place] [address] Dec, [facility] [place] [facility] [address] [id number] [place] [address] Dec, [facility] [place] [facility] [address] [id number] [place] [address] Dec, [facility] [place] [facility] [address] [id number] [place] [address] Dec, [facility] [place] [facility] [address] [id number] [place] [address] Dec, [facility] [place] [facility] [address] [id number] [place] [address] Dec, [facility] [place] [facility] [address] [id number] [place] [address] Dec, [facility] [place] [facility] [address] [id number] [place] [address] Oct, [facility] [place] [facility] [address] [id number] [place] [address] Oct, [facility] [place] [facility] [address] [id number] [place] [address] Oct, [facility] [place] [facility] [address] [id number] [place] [address] Oct, [facility] [address] [id number] [place] [address] Oct, [facility] [address] [id number] [place] [address] Oct, [facility] [address] [id number] [place] [address] Oct, [facility] [address] [id number] [place] [address] Oct, [facility] [address] [id number] [place] [address] Oct, [facility] [address] [id number] [place] [address] Oct, [facility] [address] [id number] [place] [address] Oct, [facility] [address] [id number] [place] [address] Oct, [facility] [address] [id number] [place] [address] Oct, [facility] [address] [id number] [place] [address] Oct, [facility] [address] [id number] [place] [address] Sep, [facility] [address] [id number] [place] [address] Sep, [facility] [place] [facility] [address] [id number] [place] [address] Sep, [facility] [place] [facility] [address] [id number] [place] [address] Sep, [facility] [address] [id number] [place] [address] Sep, [facility] [address] [id number] [place] [address] 27 Sep, 2013 [facility] [place] [facility] [address] [id number] [place] [address]- [address] Sep, [facility] [place] [facility] [address] [id number] [place] [address] 27 Sep, 2013 [facility] [place] [facility] [address] [id number] [place] [address] Sep, [facility] [place] [facility] [address] [id number] [place] [address] 27 Sep, 2013 [facility] [place] [facility] [address] [id number] [place] [address] 16 Sep, 2013 [facility] [place] [facility] [address] [id number] [place] [address] 16 Sep, 2013 [facility] [place] [facility] [address] [id number] [place] [address] 6[address] 13 Sep, 2013 [facility] [place] [facility] [address] [id number] [place] [address] 7091 13 Sep, 2013 [facility] [place] [facility] [address] [id number] [place] [address] 0668 10 Sep, 2013 [facility] [place] [facility] [address] [id number] [place] [address] 6304 10 Sep, 2013 [facility] [place] [facility] [address] [id number] [place] [address] 02 Sep, 2013 [facility] [place] [facility] [address] [id number] [place] [address] 6766 02 Sep, 2013 [facility] [place] [facility] [address] [id number] [place] [address] 9377 15 Aug, 2013 [facility] [place] [facility] [address] [id number] [place] [address] 6544 15 Aug, 2013 [facility] [place] [facility] [address] [id number] [place] [address] 4474 16 Jul, 2012 [facility] [address] [id number] [place] [address] 6580 16 Jul, 2012 [facility] [place] [facility] [address] [id number] [place] [address]- 7388 14 Jul, 2012 [facility] [place] [facility] [address] [id number] [place] [address]- 2949 14 Jul, 2012 [facility] [place] [facility] [address] [id number] [place] [address]- 4144 08 Jul, 2012 [facility] [place] [facility] [address] [id number] [place] [address]- 0865 20 Sep, 2012 [facility] [place] [facility] [address] [id number] [place] [address]- 2906 19 Sep, 2012 [facility] [place] [facility] [address] [id number] [place] [address]- 6922 13 Sep, 2012 [facility] [place] [facility] [address] [id number] [place] [address]- 6982 08 Sep, 2012 [facility] [place] [facility] [address] [id number] [place] [address]- 8029 06 Sep, 2012 [facility] [place] [facility] [address] [id number] [place] [address]- 2808 06 Sep, 2012 [facility] [place] [facility] [address] [id number] [place] [address]- 9345 06 Sep, 2012 [facility] [place] [facility] [address] [id number], [place] [address] 03 Jul, 2012 [facility] [place] [facility] [address] [id number] [place] [address] 5138 29 May, 2012 [facility] [place] [facility] [address] [id number] [place] [address]- 4872 26 May, 2012 [facility] [place] [facility] [address] [id number] [place] [address]- 6862 22 May, 2012 [facility] [place] [facility] [address] [id number] [place] [address]- 4665 May, [facility] [place] [facility] [address] [id number] [place] [address] Apr, [facility] [place] [facility] [address] [id number] [place] [address]- 1357 Apr, [facility] [place] [facility] [address] [id number] [place] [address]- 7494 Apr, [facility] [place] [facility] [address] [id number] [place] [address] 8554 Mar, [facility] [place] [facility] [address] [id number] [place] [address] 7910 Mar, [facility] [place] [facility] [address] [id number] [place] [address]- 7592 Mar, [facility] [place] [facility] [address] [id number] [place] [address] 8639 Mar, [facility] [address] [id number] [place] [address] 1564 February, [facility] [place] [facility] [address] [id number] [place] [address] February, [facility] [place] [facility] [address] [id number] [place] [address] 7397 Jan, [facility] [place] [facility] [address] [id number] [place] [address] 4630 Dec, [facility] [place] [facility] [address] [id number] [place] [address]- 1301 Dec, [facility] [place] [facility] [address] [id number] [place] [address]- 8165 Dec, [facility] [place] [facility] [address] [id number] [place] [address]- 8028 Dec, [facility] [place] [facility] [address] [id number] [place] [address]- 4144 Dec, 2012 [facility] [address] [id number] [place] [address] 8115 Dec, [facility] [address] [id number] [place] [address] 26 Dec, 2012 [facility] [address] [facility] [id number] [place] [address]- 5356 Dec, [facility] [address] [id number] [place] [address]- 8402 Dec, [facility] [address] [id number] [place] [address]- 9271 15 Dec, 2012 [facility] [address] [facility] [id number] [place] [address]- 4804 14 Dec, 2012 [facility] [address] [facility] [id number] [place] [address]- 7581 Oct, [facility] [address] [facility] [id number] [place] [address] 4593 Oct, [facility] [address] [facility] [id number] [place] [address]- 9827 Oct, [facility] [address] [facility] [id number] [place] [address]- 5963 Oct, [facility] [address] [facility] [id number], [place] [address] 4758 Sep, [facility] [address] [id number], [place] [address] 3910 Sep, [facility] [address] [id number] [place] [address] 1965 Sep, [facility] [place] [facility] [address] [facility] [id number] [place] [address]- 8413 Sep, [facility] [address] [facility] [id number] [place] [address]- 5895 Sep, [facility] [place] [facility] [address] [id number] [place] [address]- 4471 Sep, [facility] [place] [facility] [address] [id number] [place] [address] 0051 Aug, [facility] [place] [facility] [address] [id number] [place] [address]- 1466 Aug, [facility] [place] [facility] [address] [id number] [place] [address]- 9074 Aug, [facility] [place] [facility] [address] [id number] [place] [address]- 6964 Aug, [facility] [place] [facility] [address] [id number] [place] [address]- 3749 Aug, [facility] [place] [facility] [address] [id number] [place] [address]- 1422 Aug, [facility] [place] [facility] [address] [id number] [place] [address]- 3928 Jul, [facility] [place] [facility] [address] [id number] [place] [address] Jul, [facility] [place] [facility] [address] [id number] [place] [address]- 1475 Jul, [facility] [place] [facility] [address] [id number] [place] [address]- 3285 Jul, [facility] [place] [facility] [address] [id number] [place] [address]- 5722 Jul, [facility] [place] [facility] [address] [id number] [place] [address]- 0834 Jul, [facility] [place] [facility] [address] [id number] [place] [address]- 5966 27 Jul, 2012 [facility] [place] [facility] [address] [id number] [place] [address]- 1312 Jul, [facility] [place] [facility] [address] [id number] [place] [address]- 4883 Jul, [facility] [place] [facility] [address] [id number] [place] [address]- 2217 Jul, [facility] [place] [facility] [address] [id number] [place] [address]- 6798 Jul, [facility] [place] [facility] [address] [id number] [place] [address]- 1663 May, [facility] [place] [facility] [address] [id number] [place] [address]- 5719 May, [facility] [place] [facility] [address] [id number] [place] [address]- 6695 May, [facility] [place] [facility] [address] [id number] [place] [address]- 4135 May, [facility] [place] [facility] [address] [id number] [place] [address]- 9621 Apr, [facility] [place] [facility] [address] [id number] [place] [address]- 3379 Apr, [facility] [place] [facility] [address] [id number] [place] [address]- 6025 Apr, [facility] [place] [facility] [address] [id number] [place] [address]- 9814 Apr, [facility] [place] [facility] [address] [id number] [place] [address]- 1452 Apr, [facility] [place] [facility] [address] [id number] [place] [address]- 3198 Apr, [facility] [place] [facility] [address] [id number] [place] [address]- 2647 Apr, [facility] [place] [facility] [address] [id number] [place] [address]- 2504 Apr, [facility] [place] [facility] [address] [id number] [place] [address]- 0250 Mar, [facility] [place] [facility] [address] [id number] [place] [address]- 9787 27 Mar, 2012 [facility] [place] [facility] [address] [id number] [place] [address]- 3413 20 Mar, 2012 [facility] [place] [facility] [address] [id number] [place] [address]- 7436 15 Mar, 2012 [facility] [place] [facility] [address] [id number] [place] [address]- 5226 14 Mar, 2012 [facility] [place] [facility] [address] [id number] [place] [address]- 2054 12 Mar, 2012 [facility] [place] [facility] [address] [id number] [place] [address]- 8378 12 Mar, 2012 [facility] [place] [facility] [address] [id number] [place] [address]- 5120 11 Mar, 2012 [facility] [place] [facility] [address] [id number] [place] [address]- 7494 08 Mar, 2012 [facility] [place] [facility] [address] [id number] [place] [address]- 0269 30 Feb, 2012 [facility] [place] [facility] [address] [id number] [place] [address]- 3431 29 Feb, 2012 [facility] [place] [facility] [address] [id number] [place] [address]- 3394 25 Feb, 2012 [facility] [place] [facility] [address] [id number] [place] [address]- 3491 10 Feb, 2012 [facility] [place] [facility] [address] [id number] [place] [address]- 0630 13 Jan, 2012 [facility] [place] [facility] [address] [id number] [place] [address]- 5150 03 Jan, 2012 [facility] [place] [facility] [address] [id number] [place] [address]- 8570 28 Dec, 2011 [facility] [place] [facility] [address] [id number] [place] [address]- 9617 15 Dec, 2011 [facility] [place] [facility] [address] [id number] [place] [address]- 4405 14 Dec, 2011 [facility] [place] [facility] [address] [id number] [place] [address]- 2857 07 Dec, 2011 [facility] [place] [facility] [address] [id number] [place] [address]- 9716 28 Dec, 2011 [facility] [place] [facility] [address] [id number] [place] [address]- 2153 Dec, [facility] [place] [facility] [address] [id number] [place] [address]- 7449 Dec, [facility] [place] [facility] [address] [id number] [place] [address]- 8216 Dec, [facility] [place] [facility] [address] [id number] [place] [address]- 8286 Dec, [facility] [place] [facility] [address] [id number] [place] [address]- 4078 Dec, [facility] [place] [facility] [address] [id number] [place] [address]- 7087 Dec, [facility] [place] [facility] [address] [id number] [place] [address]- 4337 Dec, [facility] [place] [facility] [address] [id number] [place] [address]- 1902 Oct, [facility] [place] [facility] [address] [id number] [place] [address]- 0220 Oct, [facility] [place] [facility] [address] [id number] [place] [address]- 7153 Oct, [facility] [place] [facility] [address] [id number] [place] [address]- 2763 Oct, [facility] [place] [facility] [address] [id number] [place] [address]- 8802 Oct, [facility] [place] [facility] [address] [id number] [place] [address]- 9937 18 Oct, 2011 [facility] [address] [id number] [place] [address]- 1969 Oct, [facility] [place] [facility] [address] [id number] [place] [address]- 4299 Oct, [facility] [address] [id number] [place] [address]- 6519 Sep, [facility] [place] [facility] [address] [id number] [place] [address]- 6454 Sep, [facility] [address] [id number] [place] 1472 Sep, [facility] [place] [facility] [address] [id number] [place] [address]- 0623 Aug, [facility] [address] [id number] [place] [address]- 3051 Aug, [facility] [place] [facility] [address] [id number] [place] [address]- 9228 Aug, [facility] [place] [facility] [address] [id number] [place] [address]- 6894 Aug, [facility] [place] [facility] [address] [facility] [id number] [place] [address]- 1461 Aug, [facility] [place] [facility] [address] [id number] [place] [address]- 0229 Jul, [facility] [place] [facility] [address] [id number], [place] [address]- 6544 Jul, [facility] [place] [facility] [address] [id number] [place] [address]- 6863 May, [facility] [place] [facility] [address] [id number] [place] [address]- 7198 Dec, [facility] [place] [facility] [address] [id number], [place] [address]- 3136 Oct, [facility] [address] [facility] [id number], [place] [address]- 8655 Sep, [facility] [address] [facility] [id number], [place] [address]- 8529 Sep, [facility] [address] [facility] [id number], [place] [address]- 2880 Sep, IMMUNIZATIONS No Known Immunizations SOCIAL HISTORY Never Assessed REASON FOR VISIT f/u-Shawna Hassan MA PLAN OF CARE Activity Details Follow Up 2 Months Reason: f/u VITAL SIGNS Height 65 in 2017-08-10 Weight 249.8 lbs 2017-08-10 Heart Rate 88 bpm 2017-08-10 Respiratory Rate 22 2017-08-10 BMI 41.56 kg/m2 2017-08-10 Blood pressure systolic 128 mmHg 2017-08-10 Blood pressure diastolic 90 mmHg 2017-08-10 MEDICATIONS Medication Instructions Dosage Frequency Start Date End Date Duration Status BD Insulin Syringe 30G X 1/2 subcutaneously 4 times a day use with insulin 6h May, Active Estradiol 0.5 MG 1 tablet Active Multivitamin Adult - Orally, bubble pack for [facility]CI Once a day 1 tablet 24h Active NovoLog Flexpen 100 UNIT/ML Subcutaneous 3 times a day 12 u 8h Sep, Active Protonix 40 mg Orally Once a day 1 tablet 24h Active Gabapentin 100 mg Orally twice a day as needed for anxiety 2 capsules Jul, 30 days Active Lisinopril 10 mg Orally Once a day 1 tablet 24h 30 Active Insulin Detemir 100 UNIT/ML Subcutaneous twice a day 30 units 12h Sep, Active Wellbutrin XL 150 MG Orally Once a day 3 in the morning 24h 30 days Active Escitalopram Oxalate 20 MG Orally Once a day 1 tablet 24h 30 days Active Tramadol HCl 50 mg Orally every 6 hrs 1 tablet as needed 6h Active Promethazine HCl 25 MG Orally every 4-6 hours as needed 1 tablet as needed 5 Active Adderall 30 MG Orally Once a day in the morning 1 tablet 28 days Active PreserVision AREDS - Active RESULTS Name Result Date Reference Range URINE DRUG SCREEN (IN HOUSE) 2017-08-10 Lot # [id number] Exp date 03/2019 Control = COCAINE NEGATIVE AMPH POSITIVE MTD NEGATIVE THC NEGATIVE OPIATE NEGATIVE BENZO POSITIVE PCP NEGATIVE BAR NEGATIVE OXY NEGATIVE MAMP NEGATIVE TCA BUP NEGATIVE MDMA NEGATIVE PROCEDURES Procedure Date Ordered Result Body Site [facility] VISIT ESTABLISHED PATIENT Aug 10, 2017 LAB [facility] Aug 10, 2017 INSTRUCTIONS MEDICATIONS ADMINISTERED No Known Medications [...] veinous reflux Surgical History Left Knee SOA-Dr. Melendrez-[facility] 05/19/16 Surgical History Colonoscopy- Dr Castanon 01/26/2017 Hospitalization History surgeries Hospitalization History Left Knee SOA--Dr. Melendrez--[facility] Hospitalization History Septic shock, UTI-[facility] 07/27/17 Hospitalization History Multiple falls, hyperglycemia, sepsis 07/2017 Hospitalization History Alcoholism, depression, DM, Falls-[facility] 08/23/17 Hospitalization History COPD exacerbation-[facility] 11/25/17 Hospitalization History COPD exacerbation-[facility] 11/28/17
--- OUTSIDE RECORDS SUMMARY | 2018-05-10 03:33 | XMS REPORT ---
Author Author ABEL MELENDEZ [facility] Address [address] [place] [address] Care Team Providers Care Security Systems Manager Name Role Phone ABEL MELENDEZ Unavailable PROBLEMS Type Condition ICD9-CM Code [id number] Code Onset Dates Condition Status SNOMED Code Problem Generalized anxiety disorder F41.1 Active 37742960 Problem Diabetes E11.9 Active 23079878 Problem Psoriasis L40.9 Active 2860625 Problem Tobacco abuse Z72.0 Active 54633954 Problem 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 I10 Active 47402939 Problem Back pain M54.9 Active 465662239 Problem Arthritis M19.90 Active 9020772 Problem penitentiary 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 Active 590167279 Problem Psoriatic arthritis L40.50 Active 686113653 Problem Psychophysiological insomnia F51.04 Active 06468065 Problem Other specified 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 Active 173048293 Problem Obesity (BMI 30-39.9) E66.9 Active 242935152 Problem Major depressive disorder, recurrent, moderate F33.1 Active 52479642 Problem Essential hypertension I10 Active 84530582 Problem Type 2 diabetes mellitus with hyperglycemia E11.65 Active 373635569325382 Problem Alcoholism F10.20 Active 9084655 Problem Frequent falls R29.6 Active 429103604 Problem Benzodiazepine abuse F13.10 Active 782273122 Problem PTSD (post-traumatic stress disorder) F43.10 Active 49972262 Problem Eating disorder F50.9 Active 93545713 Problem Attention-deficit hyperactivity disorder, combined type F90.2 Active 72787957 Problem COPD exacerbation J44.1 Active 141856463 Problem Anxiety F41.9 Active 84318315 Problem Decubitus ulcer of left buttock, stage 2 L89.322 Active 680535250 Problem BMI 40.0-44.9, adult Z68.41 Active 630817732 Problem Alcohol abuse F10.10 Active 13041563 Problem Pneumonia due to methicillin resistant Staphylococcus aureus, unspecified laterality, unspecified part of lung J15.212 Active 790900256666941 Problem Type 2 diabetes mellitus with unspecified complications E11.8 Active 08151428 Problem Attention-deficit hyperactivity disorder, predominantly hyperactive type F90.1 Active 355892155 Problem Type 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 Active 84802733 Problem Ulcer of right foot, unspecified ulcer stage L97.519 Active 72181888 Problem Attention deficit R41.840 Active 38596323 Problem Mental disorder, not otherwise specified F99 Active 48358797 Problem Insomnia due to other mental disorder F51.05 Active 40072095 ALLERGIES No Information ENCOUNTERS Encounter Location Date Diagnosis [facility] [address], [place] [address] Mar, [facility] [id number] [place] [address] 91909- 8351 Mar, [facility] [id number] [place] [address] 23021- 9645 February, Yeast infection B37.9 [facility] [id number] [place] [address] 11500- 0466 February, [facility] [id number] [place] [address] 90482- 9397 Jan, [facility] [id number] [place] [address] 96188- 1696 Dec, Major depressive disorder, recurrent episode, unspecified severity F33.9 ; Generalized anxiety disorder F41.1 [address] Eating [address]9 [facility] [address], [place] [address] Dec, [facility] [id number] [place] [address] 47804- 4936 Dec, [facility] [id number] [place] [address] 69716- 6943 Dec, [facility] [id number] [place] [address] 64703- 0907 Dec, Increased urinary frequency R35.0 ; Frequent falls R29.6 ; Decubitus ulcer of left buttock, stage 2 L89.322 ; Benzodiazepine abuse F13.10 ; BMI 40.0-44.9, adult Z68.41 [address] Ye[address] infection B37.9 [facility] [address], [place] [address] Dec, [facility] [id number] [place] [address] 02758- 5555 Dec, [facility] [id number] [place] [address] 86158- 6577 Dec, Increased urinary frequency R35.0 [facility] [id number] [place] [address] 72554- 2773 Dec, Increased urinary frequency R35.0 [facility] [id number] [place] [address] 04158- 2001 Dec, Generalized anxiety disorder F41.1 ; Major depressive disorder, recurrent, moderate F33.1 and Psychophysiological insomnia F51.04 [facility] [id number] [place] [address] 84416- 5071 Dec, BMI 40.0-44.9, adult Z68.41 ; Type 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 ; Pneumonia due to methicillin resistant Staphylococcus aureus, unspecified laterality, unspecified part of lung J15.212 and COPD exacerbation J44.1 [facility] [address], [place] [address] Dec, [facility] [id number] [place] [address] [phone] Dec, [facility] [id number] [place] [address] [phone] Oct, [facility] [address], [place] [address] Oct, Frequency of urination R35.0 ; Bronchitis J40 and BMI 40.0- 44.9, adult Z68.41 [facility] [id number] [id number] Oct, [facility] [id number] [place] [address] 06626- 7945 Oct, [facility] [id number] [place] [address] 92977- 7569 Oct, BMI 40.0-44.9, adult Z68.41 ; Type 2 diabetes mellitus with hyperglycemia E11.65 ; Essential hypertension I10 ; Vaginal yeast infection B37.3 ; Anxiety F41.9 and Alcoholism F10.20 [facility] [id number] [place] [address] 61663- 4488 Oct, [facility] [id number] [place] [address] 58263- 8506 Oct, [facility] [id number] [place] [address] 43835- 6199 Sep, [facility] [id number] [place] [address] 68015- 6697 Sep, Major depressive disorder, recurrent episode, unspecified severity F33.9 ; Generalized anxiety disorder F41.1 and Eating disorder F50.9 [facility] [address], [place] [address] Sep, Major depressive disorder, recurrent, moderate F33.1 ; Type 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 ; Alcohol abuse F10.10 ; Obesity (BMI 30-39.9) E66.9 and Psychophysiological insomnia F51.04 [facility] [address] [place] [address] 18840- 3817 06 Sep, 2017 Diabetes E11.9 and Generalized anxiety disorder F41.1 [facility] [address] [place] [address] 72372- 2954 05 Sep, 2017 Major depressive disorder, recurrent episode, unspecified severity F33.9 ; Generalized anxiety disorder F41.1 and Eating disorder F50.9 [id number] [address] Sep, [facility] [id number] [place] [address] 59723- 0870 Aug, [facility] [id number] [place] [address] 62561- 8006 Aug, Insomnia due to other mental disorder F51.05 ; Mental disorder, not otherwise specified F99 ; Attention deficit R41.840 ; Ulcer of right foot, unspecified ulcer stage L97.519 ; Cough R05 ; Diabetes E11.9 ; Sore in mouth K13.79 ; Generalized anxiety disorder F41.1 ; Major depressive disorder , recurrent episode, unspecified severity F33.9 and BMI 40.0-44.9, adult Z68.41 [facility] [id number] [place] [address] 27556- 6651 Aug, [facility] [id number] [place] [address] 31072- 6342 Aug, [facility] [id number] [place] [address] 06355- 5439 Aug, [facility] [id number] [place] [address] 07506- 7033 Aug, [place] [address] [place] [address] 90805- 9799 Aug, Diabetes E11.9 [facility] [employer] [address] [place] [id number] Aug, Falling R29.6 ; Alcohol abuse F10.10 ; Major depressive disorder, recurrent episode, unspecified severity F33.9 ; 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 I10 ; Type 2 diabetes mellitus with unspecified complications E11.8 and 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 [id number] [place] [address] 43888- 8208 Jul, [facility] [address] [place] [address] 31095- 1608 Jul, Generalized anxiety disorder F41.1 [facility] [id number] [place] [address] 76391- 0430 Jul, [facility] [address] [place] [address] 62167- 7600 Jul, [facility] [id number] [place] [address] 33151- 9302 Jul, Generalized anxiety disorder F41.1 ; Major depressive disorder, recurrent episode, unspecified severity F33.9 ; PTSD (post-traumatic stress disorder) F43.10 ; Eating disorder F50.9 and Attention-deficit hyperactivity disorder, predominantly hyperactive type F90.1 [facility] [address], [place] [address] Jul, [facility] [address], [place] [address]- 1177 Jul, [facility] [address], [place] [address]- 1025 Jul, penitentiary 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 ; Type 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 ; Urinary tract infection, site not specified N39.0 ; Sepsis, unspecified organism A41.9 and Essential hypertension I10 [facility] [id number] [id number] Jul, [facility] [address], [place] [address] 27 Jul, 2017 [facility] [id number] [place] [address] 05378- 1091 Jul, Generalized anxiety disorder F41.1 [facility] [id number] [place] [address] 94875- 8664 15 Jul, 2017 [facility] [id number] [place] [address] 44392- 3743 Jul, Generalized anxiety disorder F41.1 [facility] [id number] [place] [address] 88072- 6884 May, Generalized anxiety disorder F41.1 ; Major depressive disorder, recurrent episode, unspecified severity F33.9 ; PTSD (post-traumatic stress disorder) F43.10 ; Eating disorder F50.9 and Attention-deficit hyperactivity disorder, predominantly hyperactive type F90.1 [facility] [id number] [place] [address] 65189- 3379 May, Diabetes E11.9 [facility] [id number] [place] [address] 50826 -2878 May, Acute non-recurrent maxillary sinusitis J01.[address] [facility] [address], [place] [address]- [address]162 May, [facility] [id number] [place] [address] 83801- 7817 May, [facility] [id number] [place] [address] 50894- 2448 May, Generalized anxiety disorder F41.1 [facility] [id number] [place] [address] 23756- 7620 Apr, [facility] [address], [place] [address]55 Apr, [facility] [id number] [place] [address] 17040- 9555 Apr, [place] [address] [place] [address] 08967- 9739 Apr, Generalized anxiety disorder F41.1 ; Major depressive disorder, recurrent episode, unspecified severity F33.9 ; PTSD (post-traumatic stress disorder) F43.10 ; Eating disorder F50.9 and Attention-deficit hyperactivity disorder, predominantly hyperactive type F90.1 [id number] [place] [address] 24618- 7847 Apr, Major depressive disorder, recurrent, moderate F33.1 [address] [id number] [place] [address] 73028- 8031 Mar, Diabetes E11.9 [id number] [place] [address] 97100- 3130 Mar, Attention-deficit hyperactivity disorder, combined type F90.2 [id number] [place] [address] 11755- 2968 Mar, [id number] [place] [address] 88457- 0218 Mar, Diabetes E11.9 [id number] [place] [address] 22542- 9055 Mar, penitentiary 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 ; Psoriatic arthritis L40.50 ; Other specified 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 and 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 I10 [id number] [place] [address] 88807- 9419 February, Back pain M54.9 [address] [id number] [place] [address] 66857- 8822 February, Attention-deficit hyperactivity disorder, combined type F90.2 [id number] [place] [address] 03715- 8947 February, Major depressive disorder, recurrent episode, unspecified severity F33.9 and Generalized anxiety disorder F41.1 [id number] [place] [address] 23790- 9952 Jan, Attention-deficit hyperactivity disorder, combined type F90.2 [facility] [id number] [place] [address] 87293- 2643 Jan, Major depressive disorder, recurrent, moderate F33.1 ; Generalized anxiety disorder F41.1 and Attention-deficit hyperactivity disorder , combined type F90.2 [facility] [id number] [place] [address] 43452- 4377 Dec, Major depressive disorder, recurrent episode, unspecified severity F33.9 ; Generalized anxiety disorder F41.1 and Attention-deficit hyperactivity disorder, predominantly hyperactive type F90.1 [facility] [id number] [place] [address] 27445- 2923 Dec, Major depressive disorder, recurrent episode, unspecified severity F33.9 and Generalized anxiety disorder F41.1 [place] [facility] [id number] [place] [address] 77495- 2421 Dec, [place] [id number] [place] [address] 22274- 8172 Dec, [place] [id number] [place] [address] 32625- 7470 Dec, Major depressive disorder, recurrent episode, unspecified severity F33.9 and Generalized anxiety disorder F41.1 [facility] [id number] [place] [address] 18481- 6214 Dec, Back pain M54.9 [facility] [id number] [place] [address] 93342- 8611 Dec, Eustachian tube dysfunction, right H69.81 and Arthritis M19.90 [facility] [id number] [place] [address] 11597- 9425 Dec, [place] [id number] [place] [address] 50438- 7186 Dec, [facility] [address] [place] [address]- 2586 07 Dec, 2016 Major depressive disorder, recurrent episode, unspecified severity F33.9 [place] [id number] [place] [address] 60825- 8964 Oct, [facility] [id number] [place] [address] 00854 -4909 Oct, Acute non-recurrent pansinusitis J01.40 and Sore throat J02.9 [facility] [id number] [place] [address] 02456- 0994 Oct, Major depressive disorder, recurrent episode, unspecified severity F33.9 [facility] [id number] [place] [address] 99811- 8035 Oct, Major depressive disorder, recurrent episode, unspecified severity F33.9 and Generalized anxiety disorder F41.1 [facility] [id number] [place] [address] 98588- 8082 Sep, [facility] [id number] [place] [address] 74431- 2136 Sep, Major depressive disorder, recurrent episode, unspecified severity F33.9 [facility] [id number] [place] [address] 58975- 8679 Sep, Major depressive disorder, recurrent episode, unspecified severity F33.9 [facility] [address] [place] [address] 53597 -2480 Sep, Sore throat J02.9 [place] [address] [place] [address] 33449- 9961 15 Sep, 2016 Generalized anxiety disorder F41.1 ; Major depressive disorder, recurrent episode, unspecified severity F33.9 and Attention-deficit hyperactivity disorder, predominantly hyperactive type F90.1 [place] [address] [place] [address] 05581- 7929 08 Sep, 2016 Major depressive disorder, recurrent episode, unspecified severity F33.9 and Generalized anxiety disorder F41.1 [facility] [id number] [place] [address] 45916- 3076 07 Sep, [address] [facility] [id number] [place] [address] 68255- 0134 02 Sep, 2016 Diabetes E11.9 ; penitentiary 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 ; Back pain M54.9 and Encounter for immunization Z23 [facility] [id number] [place] [address] 88648- 0757 Aug, [place] [id number] [place] [address] 10982- 8247 Aug, [place] [place] [id number] [place] [address] 54395- 0376 Jul, Major depressive disorder, recurrent episode, unspecified severity F33.9 ; Attention-deficit hyperactivity disorder, predominantly hyperactive type F90.1 and Generalized anxiety disorder F41.1 [place] [id number] [place] [address] 86801- 4458 Jul, [facility] [id number] [place] [address] 71489- 4356 22 Jul, 2016 Major depressive disorder, recurrent, in partial remission F33.41 and Generalized anxiety disorder F41.1 [place] [id number] [place] [address] 63958- 1044 Jul, [facility] [id number] [place] [address] 21443- 7657 19 Jul, 2016 [facility] [id number] [place] [address] 63906- 3805 13 Jul, 2016 [facility] [id number] [place] [address] 27192- 4723 Jul, [facility] [id number] [place] [address] 12045- 7099 12 Jul, [address] [facility] [id number] [place] [address] 57367- 0735 May, [facility] [address], [place] [address]- 9771 May, [facility] [id number] [place] [address] 97908- 4718 May, [facility] [id number] [place] [address] 46795- 9832 May, Major depressive disorder, recurrent episode, unspecified severity F33.9 ; Generalized anxiety disorder F41.1 and Attention-deficit hyperactivity disorder, predominantly hyperactive type F90.1 [facility] [id number] [place] [address] 57255- 8239 May, [facility] [id number] [place] [address] 41942- 1683 May, Diabetes E11.9 [facility] [id number] [place] [address] 08287- 2025 May, [facility] [id number] [place] [address] 37795- 7580 May, [facility] [address] [place] [id number] May, Diabetes E11.9 ; Generalized anxiety disorder F41.[address] [facility] [address] [place] [address] 61747- 8582 May, Psoriatic arthritis L40.50 and Candidiasis of female genitalia B37.3 [facility] [address], [place] [address]- 5243 May, [facility] [address] [place] [address] 02230- 8964 Apr, [facility] [address] [place] [address] 90730- 6820 Apr, [facility] [address] [place] [address] 66131- 1753 Apr, [place] [address], [place] [address]- 2411 Apr, Generalized anxiety disorder F41.1 ; Major depressive disorder, recurrent episode, unspecified severity F33.9 and Attention-deficit hyperactivity disorder, predominantly hyperactive type F90.1 [facility] [address], [place] [address]- 7239 Apr, [facility] [id number] [place] [address] 59873- 0074 Apr, [facility] [id number] [place] [address] 10656- 8174 Apr, [facility] [id number] [place] [address] 26743- 0182 Apr, [facility] [id number] [place] [address] 35811- 3787 Apr, [facility] [id number] [place] [address] 88641- 5933 Mar, Attention-deficit hyperactivity disorder, predominantly hyperactive type F90.1 [facility] [id number] [place] [address] 07719- 8847 Mar, [facility] [id number] [place] [address] 38873- 2154 Mar, [facility] [id number], [place] [address] Mar, Major depressive disorder, recurrent episode, unspecified severity F33.9 and Generalized anxiety disorder F41.1 [facility] [id number] [place] [phone] February, Diabetes E11.9 [facility] [id number], [place] [address] February, OME (otitis media with effusion), bilateral H65.93 [facility] [id number] [place] [address] February, Back pain M54.9 [facility] [id number], [place] [address] February, [facility] [id number] [place] [address] 92486- 0869 February, Nausea R11.0 [facility] [id number] [place] [address] 84763- 1996 February, [facility] [id number] [place] [address] 69082- 8646 February, Pre-op evaluation Z01.818 ; Type 2 diabetes mellitus with hyperglycemia E11.65 and penitentiary 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 [facility] [id number] [place] [address] 18618- 2213 February, [facility] [id number] [place] [address] 33306 -9095 February, Right otitis externa H60.91 [facility] [id number] [place] [address] 87151- 7252 Jan, [facility] [id number] [place] [address] 27848- 9397 Jan, Psoriatic arthritis L40.50 and Arthralgia, unspecified joint M25.50 [address] [id number], [place] [address] Jan, Major depressive disorder, recurrent episode, unspecified severity F33.9 ; Generalized anxiety disorder F41.1 and Attention-deficit hyperactivity disorder, unspecified type F90.9 [facility] [id number], [place] [address] 2748 Jan, [facility] [id number] [place] [address] 79185- 1640 Jan, [facility] [id number] [place] [address] 10269- 2860 Jan, Major depressive disorder, recurrent episode, unspecified severity F33.9 and Generalized anxiety disorder F41.1 [facility] [address], [place] [address] 4[address] Jan, [facility] [id number] [place] [address] 69710- 9747 Dec, 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 I10 [address]90 [facility] [id number] [place] [address] 26301- 0321 Dec, [facility] [id number] [place] [address] 02689- 3545 Dec, [facility] [id number] [place] [address] 31444- 2875 Dec, [facility] [id number] [place] [address] 03146- 6339 Dec, [facility] [id number] [place] [address] 44096- 6767 Dec, [facility] [id number] [place] [address] 15595- 1557 Dec, Major depressive disorder, recurrent episode, unspecified severity F33.9 and Generalized anxiety disorder F41.1 [facility] [id number] [place] [address] 92825- 1479 Dec, Diabetes E11.9 ; Back pain M54.9 ; Thrush B37.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 [facility] [id number] [place] [address] 11751- 1262 18 Dec, 2015 Major depressive disorder, recurrent episode, unspecified severity F33.9 and Generalized anxiety disorder F41.1 [facility] [id number] [place] [address] 59924- 2053 04 Dec, 2015 Major depressive disorder, recurrent episode, in partial or unspecified remission 296.35 ; Major depressive disorder, recurrent episode, unspecified severity F33.9 and Generalized anxiety disorder 300.02 [facility] [id number] [place] [address] 93024- 5942 Dec, [facility] [id number] [place] [address] 34469- 4469 Oct, [facility] [id number] [place] [address] 22483- 9125 Oct, [facility] [id number] [place] [address] 02919- 7169 Oct, [facility] [id number] [place] [address] 52428- 1955 Oct, [facility] [id number] [place] [address] 69923- 6539 Oct, Major depressive disorder, recurrent, moderate F33.1 and Attention-deficit hyperactivity disorder, unspecified type F90.9 [facility] [id number] [place] [address] 75838- 5445 Oct, penitentiary (current) use of opiate analgesic Z79.891 [facility] [id number] [place] [address] 42305- 5682 Oct, [facility] [id number] [place] [address] 70571- 0209 Oct, [facility] [id number] [place] [address] 25978 -0246 Sep, URI (upper respiratory infection) J06.9 ; Psoriasis L40.9 ; Cough R05 and Tobacco abuse Z72.0 [facility] [id number] [place] [address] 40808- 1372 Sep, Major depressive disorder, recurrent episode, in partial or unspecified remission 296.35 ; Generalized anxiety disorder 300.02 and ADHD, 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 [facility] [id number] [place] [address] 09155 -8322 Sep, Acute sinusitis, unspecified J01.90 [facility] [id number] [place] [address] 40412- 5590 Sep, [facility] [address], [place] [address]- 3604 Sep, Major depressive disorder, recurrent, moderate F33.1 ; Generalized anxiety disorder F41.1 and Attention-deficit hyperactivity disorder , combined type F90.2 [facility] [id number] [place] [address] 34303- 1313 Sep, [facility] [id number] [place] [address] 51770- 6989 Aug, [facility] [id number] [place] [address] 86199- 0788 Aug, [facility] [id number] [place] [address] 49780- 9474 Aug, Diabetes E11.[address] [facility] [id number] [place] [address] 31074- 5155 Aug, Major depressive disorder, recurrent episode, unspecified severity F33.9 and Generalized anxiety disorder F41.1 [facility] [id number] [place] [address] 06933- 3991 Aug, [facility] [id number] [place] [address] 30368- 9536 Jul, [facility] [id number] [place] [address] 33497- 9615 Jul, [facility] [id number] [place] [address] 03499- 8448 Jul, [facility] [id number] [place] [address] 82356- 2119 Jul, [facility] [id number] [place] [address] 14742- 0524 Jul, Major depressive disorder, recurrent episode, in partial or unspecified remission 296.35 ; Generalized anxiety disorder 300.02 and ADHD, 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 [facility] [id number] [address]- 1918 Jul, Major depressive disorder, recurrent episode, in partial or unspecified remission 296.35 ; Generalized anxiety disorder 300.02 and ADHD, 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 [facility] [id number] [place] [address] 33184- 1302 Jul, [facility] [id number] [place] [address] 80713- 7073 May, [facility] [id number] [place] [address] 30225- 5747 May, [facility] [id number] [place] [address] 11939- 9861 May, DM w/o complication type II 250.00 ; Dyspepsia 536.8 and PAD (peripheral artery disease) 443.9 [facility] [id number] [place] [address] 29732- 8336 May, Major depressive disorder, recurrent episode, moderate 296.32 and Generalized anxiety disorder 300.02 [facility] [id number] [place] [address] 55992- 5743 May, [facility] [id number] [place] [address] 57660- 9979 May, Major depressive disorder, recurrent episode, moderate 296.32 and Generalized anxiety disorder 300.02 [facility] [id number] [place] [address] 33952- 8014 May, [facility] [address] [place] [address] 69140- 8541 Apr, [facility] [id number] [place] [address] 72705- 2162 Apr, Major depressive disorder, recurrent episode, moderate 296.32 and Generalized anxiety disorder 300.02 [facility] [id number] [place] [address] 10224- 4428 Apr, [facility] [id number] [address]- 9404 Apr, 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 [address], [place] [address]- 5082 Apr, Major depressive disorder, recurrent episode, moderate 296.32 and Generalized anxiety disorder 300.02 [facility] [address], [place] [address]- 9022 Apr, [facility] [id number] [place] [address] 04946- 9492 Apr, [facility] [id number] [place] [address] 11445- 2274 Mar, [facility] [id number] [place] [address] 14828- 6349 Mar, Major depressive disorder, recurrent episode, moderate 296.32 and Generalized anxiety disorder 300.02 [facility] [id number] [place] [address] 41167- 9245 Mar, ADHD, 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 ; Major depressive disorder, recurrent episode, severe, without mention of psychotic behavior 296.33 and Generalized anxiety disorder 300.02 [facility] [address], [place] [address]- 8235 February, Major depressive disorder, recurrent episode, moderate 296.32 and Generalized anxiety disorder 300.02 [facility] [address], [place] [address]- 1830 February, [facility] [id number] [place] [address] 66462- 6085 February, [facility] [address], [place] [address]- 3108 February, [facility] [id number] [address] 4218 February, [facility] [address] 8549 February, DM w/o complication type II 250.00 ; Impacted cerumen 380.4 ; Essential hypertension, benign 401.1 and Irritable colon [address].1 [facility] [id number] [place] [address] 84374- 9585 February, [facility] [address] [facility] [id number] [place] [address], [place] [address]- 7422 February, [facility] [id number] [place] [address], [place] [address] Jan, [facility] [id number] [place] [address]- 2835 Dec, [facility] [id number] [place] [address], [place] [address]- 1467 Dec, [facility] [address], [place] [address]- 1481 Dec, [facility] [id number] [place] [address]- 2063 Dec, [facility] [id number], [place] [address]- 3994 Dec, [facility] [id number] [place] [address]- 1010 Dec, [facility] [id number], [place] [address]- 7243 Dec, [facility] [id number] [place] [address]- 3850 Dec, [facility] [id number] [place] [address]- 5726 Dec, [facility] [id number], [place] [address]- 2884 Dec, [facility] [place] [facility] [address] [id number] [place] [address]- 4029 Dec, [facility] [place] [facility] [address] [id number] [place] [address]- 2566 Dec, [facility] [place] [facility] [address] [id number] [place] [address]- 3839 Dec, [facility] [place] [facility] [address] [id number] [place] [address]- 7386 Dec, [facility] [place] [facility] [address] [id number] [place] [address]- 1529 Dec, [facility] [place] [facility] [address] [id number] [place] [address]- 7486 Dec, [facility] [place] [facility] [address] [id number] [place] [address]- 6683 Oct, [facility] [place] [facility] [address] [id number], [place] [address]- 3749 Oct, [facility] [place] [facility] [address] [id number] [place] [address]- 8599 Oct, [facility] [place] [facility] [address] [id number] [place] [address]- 1034 Oct, [facility] [place] [facility] [address] [id number], [place] [address]- 0496 Oct, [facility] [place] [facility] [address] [id number], [place] [address]- 9480 Oct, [facility] [place] [facility] [address] [id number] [place] [address]- 7543 Oct, [facility] [place] [facility] [address] [id number], [place] [address]- 6046 Oct, [facility] [place] [facility] [address] [id number] [place] [address]- 1226 Oct, [facility] [place] [facility] [address] [id number] [place] [address]- 1331 Oct, [facility] [place] [facility] [address] [id number] [place] 7606 Oct, [facility] [place] [facility] [address] [id number] [place] [address]- 6113 Sep, [facility] [place] [facility] [address] [id number] [place] [address]- 2675 Sep, [facility] [place] [facility] [address] [id number] [place] [address]- 1675 Sep, [facility] [place] [facility] [address] [id number] [place] [address]- 7888 Sep, [facility] [place] [facility] [address] [id number] [place] [address]- 5435 Sep, [facility] [place] [facility] [address] [id number] [place] [address]- 6217 Sep, [facility] [place] [facility] [address] [id number] [place] [address]- 3495 Sep, [facility] [place] [facility] [address] [id number] [place] [address]- 9345 Sep, [facility] [place] [facility] [address] [id number] [place] [address]- 2759 Aug, [facility] [place] [facility] [address] [id number] [place] [address]- 3799 Aug, [facility] [place] [facility] [address] [id number] [place] [address]- 8613 Aug, [facility] [place] [facility] [address] [id number] [place] [address]- 2762 Aug, [facility] [place] [facility] [address] [id number] [place] [address]- 9489 Aug, [facility] [place] [facility] [address] [id number] [place] [address]- 1969 Aug, [facility] [place] [facility] [address] [id number] [place] [address]- 0391 Aug, [facility] [place] [facility] [address] [id number] [place] [address]- 6086 Aug, [facility] [place] [facility] [address] [id number] [place] [address]- 1827 Aug, [facility] [place] [facility] [address] [id number] [place] [address]- 6623 Aug, [facility] [place] [facility] [address] [id number] [place] [address]- 1946 Aug, [facility] [place] [facility] [address] [id number] [place] [address]- 3094 Aug, [facility] [place] [facility] [address] [id number] [place] [address]- 4936 Aug, [facility] [place] [facility] [address] [id number] [place] [address]- 9598 Aug, [facility] [place] [facility] [address] [id number] [place] [address]- 6448 Jul, [facility] [place] [facility] [address] [id number] [place] [address]- 8531 Jul, [facility] [place] [facility] [address] [id number] [place] [address]- 7136 Jul, [facility] [place] [facility] [address] [id number], [place] [address]- 7078 Jul, [facility] [place] [facility] [address] [id number] [place] [address]- 9432 Jul, [facility] [place] [facility] [address] [id number] [place] [address]- 7167 Jul, [facility] [place] [facility] [address] [id number] [place] [address]- 2737 Jul, [facility] [place] [facility] [address] [id number], [place] [address]- 5254 Jul, [facility] [place] [facility] [address] [id number] [place] [address]- 5476 Jul, [facility] [place] [facility] [address] [id number] [place] [address]- 5822 Jul, [facility] [place] [facility] [address] [id number] [place] [address]- 4638 Jul, [facility] [place] [facility] [address] [id number] [place] [address]- 9856 Jul, [facility] [place] [facility] [address] [id number] [place] [address]- 5938 Jul, [facility] [place] [facility] [address] [id number] [place] [address]- 9748 Jul, [facility] [place] [facility] [address] [id number] [place] [address]- 3011 May, [facility] [place] [facility] [address] [id number] [place] [address]- 6344 May, [facility] [place] [facility] [address] [id number] [place] [address]- 6138 May, [facility] [place] [facility] [address] [id number] [place] [address]- 3489 May, [facility] [place] [facility] [address] [id number] [place] [address]- 5390 May, [facility] [place] [facility] [address] [id number] [place] [address]- 0177 May, [facility] [place] [facility] [address] [id number] [place] [address]- 2793 May, [facility] [place] [facility] [address] [id number] [place] [address]- 2224 May, [facility] [place] [facility] [address] [id number] [place] [address]- 6669 May, [facility] [place] [facility] [address] [id number] [place] [address]- 0065 May, [facility] [place] [facility] [address] [id number] [place] [address]- 6700 May, [facility] [place] [facility] [address] [id number] [place] [address]- 6486 May, [facility] [place] [facility] [address] [id number] [place] [address]- 9591 Apr, [facility] [place] [facility] [address] [id number] [place] [address]- 4810 Apr, [facility] [place] [facility] [address] [id number] [place] [address]- 1049 Apr, [facility] [place] [facility] [address] [id number] [place] [address]- 2063 Apr, [facility] [place] [facility] [address] [id number] [place] [address]- 6061 Apr, [facility] [place] [facility] [address] [id number] [place] [address]- 0021 Apr, [facility] [place] [facility] [address] [id number] [place] [address]- 0393 Mar, [facility] [place] [facility] [address] [id number] [place] [address]- 2422 Mar, [facility] [place] [facility] [address] [id number] [place] [address] Mar, [facility] [place] [facility] [address] [id number] [place] [address] Mar, [facility] [place] [facility] [address] [id number] [place] [address] Mar, [facility] [place] [facility] [address] [id number] [place] [address] Mar, [facility] [place] [facility] [address] [id number] [place] [address] Mar, [facility] [place] [facility] [address] [id number] [place] [address] Mar, [facility] [place] [facility] [address] [id number] [place] [address] Mar, [facility] [place] [facility] [address] [id number] [place] [address] Mar, [facility] [place] [facility] [address] [id number] [place] [address] Mar, [facility] [place] [facility] [address] [id number] [place] [address] Mar, [facility] [place] [facility] [address] [id number] [place] [address] Mar, [facility] [place] [facility] [address] [id number] [place] [address] February, [facility] [place] [facility] [address] [id number] [place] [address] February, [facility] [place] [facility] [address] [id number] [place] [address] February, [facility] [place] [facility] [address] [id number] [place] [address] February, [facility] [place] [facility] [address] [id number] [place] [address] February, [facility] [place] [facility] [address] [id number] [place] [address] February, [facility] [place] [facility] [address] [id number] [place] [address] February, [facility] [place] [facility] [address] [id number] [place] [address] February, [facility] [place] [facility] [address] [id number] [place] [address] February, [facility] [place] [facility] [address] [id number] [place] [address]- [address] February, [facility] [address] [id number] [place] [address] February, [facility] [place] [facility] [address] [id number] [place] [address]- [address] February, [facility] [place] [facility] [address] [id number] [place] [address] February, [facility] [place] [facility] [address] [id number] [place] [address] February, [facility] [place] [facility] [address] [id number] [place] [address] Jan, [facility] [place] [facility] [address] [id number] [place] [address] Jan, [facility] [place] [facility] [address] [id number] [place] [address] Jan, [facility] [place] [facility] [address] [id number] [place] [address] Jan, [facility] [place] [facility] [address] [id number] [place] [address]- [address] Jan, [facility] [place] [facility] [address] [id number] [place] [address] Jan, [facility] [place] [facility] [address] [id number] [place] [address]- [address] Jan, [facility] [place] [facility] [address] [id number] [place] [address]- [address] Jan, [facility] [place] [facility] [address] [id number] [place] [address] Jan, [facility] [place] [facility] [address] [id number] [place] [address] Dec, [facility] [place] [facility] [address] [id number] [place] [address] Dec, [facility] [place] [facility] [address] [id number] [place] [address] Dec, [facility] [place] [facility] [address] [id number] [place] [address] Dec, [facility] [place] [facility] [address] [id number] [place] [address]- 39[address] Dec, [facility] [place] [facility] [address] [id number] [place] [address]- [address] Dec, [facility] [place] [facility] [address] [id number] [place] [address] Dec, [facility] [place] [facility] [address] [id number] [place] [address] Dec, [facility] [place] [facility] [address] [facility] [id number] [place] [address] Dec, [facility] [place] [facility] [address] [id number] [place] [address] Dec, [facility] [place] [facility] [address] [id number] [place] [address]- [address] 14 Dec, 2013 [facility] [place] [facility] [address] [id number] [place] [address] Dec, [facility] [place] [facility] [address] [facility] [id number] [place] [address] Dec, [facility] [place] [facility] [address] [id number], [place] [address] 10 Dec, 2013 [facility] [place] [facility] [address] [id number] [place] [address] 76[address] Dec, [facility] [place] [facility] [address] [id number] [place] [address]- 0767 06 Dec, 2013 [facility] [place] [facility] [address] [id number] [place] [address] 5367 06 Dec, 2013 [facility] [place] [facility] [address] [id number], [place] [address] Oct, [facility] [address] [id number] [place] [address] 4[address] Oct, [facility] [place] [facility] [address] [id number] [place] [address] 9088 Oct, [facility] [place] [facility] [address] [id number] [place] [address]- 5900 Oct, [facility] [place] [facility] [address] [id number] [place] [address]- 7166 Oct, [facility] [place] [facility] [address] [id number] [place] [address]- 3786 Oct, [facility] [place] [facility] [address] [id number] [place] [address]- 7218 Oct, [facility] [address] [id number] [place] [address]- 0255 Oct, [facility] [place] [facility] [address] [id number] [place] [address]- 2720 Oct, [facility] [place] [facility] [address] [id number] [place] [address]- 8466 Oct, [facility] [place] [facility] [address] [id number] [place] [address]- 5250 Oct, [facility] [place] [facility] [address] [id number] [place] [address]- 0870 Oct, [facility] [place] [facility] [address] [id number], [place] [address] 1146 Oct, [facility] [place] [facility] [address] [id number] [place] [address] 0503 Oct, [facility] [place] [facility] [address] [id number] [place] [address]- 5445 Sep, [facility] [place] [facility] [address] [id number] [place] [address]- 9522 Sep, [facility] [place] [facility] [address] [id number] [place] [address]- 7696 30 Sep, 2013 [facility] [place] [facility] [address] [id number] [place] [address]- 8916 30 Sep, 2013 [facility] [place] [facility] [address] [id number] [place] [address]- 4736 Sep, [facility] [place] [facility] [address] [id number] [place] [address]- 9966 Sep, [facility] [place] [facility] [address] [id number] [place] [address]- 7011 Sep, [facility] [place] [facility] [address] [id number] [place] [address]- 6516 Sep, [facility] [place] [facility] [address] [id number] [place] [address]- 4080 Sep, [facility] [place] [facility] [address] [id number] [place] [address]- 3200 Sep, [facility] [place] [facility] [address] [id number] [place] [address]- 5823 16 Sep, 2013 [facility] [place] [facility] [address] [id number] [place] [address]- 2200 16 Sep, 2013 [facility] [place] [facility] [address] [id number] [place] [address]- 7851 13 Sep, 2013 [facility] [place] [facility] [address] [id number] [place] [address]- 2436 13 Sep, 2013 [facility] [place] [facility] [address] [id number] [place] [address] 2546 10 Sep, 2013 [facility] [place] [facility] [address] [id number] [place] [address]- 1876 10 Sep, 2013 [facility] [place] [facility] [address] [id number] [place] [address]- 5466 02 Sep, 2013 [facility] [place] [facility] [address] [id number] [place] [address]- 2787 02 Sep, 2013 [facility] [place] [facility] [address] [id number] [place] [address]- 7257 15 Aug, 2013 [facility] [place] [facility] [address] [id number] [place] [address]- 7590 15 Aug, 2013 [facility] [place] [facility] [address] [id number] [place] [address] 16 Jul, 2013 [facility] [place] [facility] [address] [id number] [place] [address]- 8853 16 Jul, 2013 [facility] [place] [facility] [address] [id number] [place] [address]- 6968 14 Jul, 2013 [facility] [place] [facility] [address] [id number] [place] [address]- 4818 14 Jul, 2013 [facility] [place] [facility] [address] [id number] [place] [address]- 7652 08 Jul, 2013 [facility] [place] [facility] [address] [id number], [place] [address]- 4065 20 Sep, 2012 [facility] [place] [facility] [address] [id number], [place] [address]- 3809 19 Sep, 2012 [facility] [place] [facility] [address] [id number], [place] [address]- 3850 13 Sep, 2012 [facility] [place] [facility] [address] [id number], [place] [address]- 1882 08 Sep, 2012 [facility] [place] [facility] [address] [id number], [place] [address]- 7722 06 Sep, 2012 [facility] [place] [facility] [address] [id number], [place] [address]- 7976 06 Sep, 2012 [facility] [place] [facility] [address] [id number], [place] [address]- 9782 06 Sep, 2012 [facility] [place] [facility] [address] [id number], [place] [address]- 8229 03 Sep, 2012 [facility] [place] [facility] [address] [id number] [place] [address]- 6622 May, [facility] [address] [id number] [place] [address]- 1836 May, [facility] [place] [facility] [address] [id number] [place] [address]- 8139 May, [facility] [address] [id number] [place] [address]- 2845 May, [facility] [place] [facility] [address] [id number] [place] [address]- 2683 Apr, [facility] [address] [id number] [place] [address]- 4664 Apr, [facility] [place] [facility] [address] [id number] [place] [address]- 4735 Apr, [facility] [address] [id number] [place] [address]- 7809 Mar, [facility] [place] [facility] [address] [id number] [place] [address]- 7816 Mar, [facility] [place] [facility] [address] [id number] [place] [address]- 1787 Mar, [facility] [address] [id number] [place] [address]- 0187 Mar, [facility] [place] [facility] [address] [id number] [place] [address]- 6219 February, [facility] [place] [facility] [address] [id number] [place] [address]- 3204 February, [facility] [place] [facility] [address] [id number] [place] [address]- 9885 Jan, [facility] [place] [facility] [address] [id number] [id number] [address] Dec, [facility] [place] [facility] [address] [id number] [place] [address] Dec, [facility] [place] [facility] [address] [id number] [place] [address]- 4409 05 Dec, 2012 [facility] [address] [id number] [place] [address]- 4791 05 Dec, 2012 [facility] [address] [id number] [place] [address]- 8509 28 Dec, 2012 [facility] [place] [facility] [address] [id number] [place] [address]- 8376 27 Dec, 2012 [facility] [address] [id number] [place] [address]- 7779 Dec, [facility] [address] [id number] [place] [address]- 0705 25 Dec, 2012 [facility] [address] [id number] [place] [address]- 0745 22 Dec, 2012 [facility] [address] [id number] [place] [address]- 2545 15 Dec, 2012 [facility] [address] [id number] [place] [address]- 7473 14 Dec, 2012 [facility] [address] [id number] [place] [address]- 1976 Oct, [facility] [address] [id number] [place] [address]- 6716 Oct, [facility] [place] [facility] [address] [id number] [place] [address]- 7352 09 Oct, 2012 [facility] [place] [facility] [address] [id number] [place] [address]- 6656 Oct, [facility] [place] [facility] [address] [id number] [place] [address]- 0044 13 Sep, 2012 [facility] [place] [facility] [address] [id number] [place] [address]- 7742 Sep, [facility] [address] [id number] [place] [address]- 4747 Sep, [facility] [place] [facility] [address] [id number] [place] [address]- 0148 Sep, [facility] [place] [facility] [address] [id number] [place] [address]- 9435 Sep, [facility] [place] [facility] [address] [id number] [place] [address]- 7833 Sep, [facility] [place] [facility] [address] [id number] [place] [address]- 8068 Aug, [facility] [place] [facility] [address] [id number] [place] [address]- 1755 Aug, [facility] [place] [facility] [address] [id number] [place] [address]- 6072 Aug, [facility] [place] [facility] [address] [facility] [id number] [place] [address]- 5015 Aug, [facility] [place] [facility] [address] [id number] [place] [address]- 1788 Aug, [facility] [place] [facility] [address] [id number] [place] [address]- 2355 Aug, [facility] [place] [facility] [address] [facility] [id number] [place] [address]- 1524 Jul, [facility] [place] [facility] [address] [id number] [place] [address]- 7646 Jul, [facility] [place] [facility] [address] [id number], [place] [address]- 6036 Jul, [facility] [place] [facility] [address] [id number] [place] [address]- 4860 Jul, [facility] [place] [facility] [address] [facility] [id number] [place] [address]- 9996 Jul, [facility] [place] [facility] [address] [facility] [id number], [place] [address]- 8003 Jul, [facility] [place] [facility] [address] [id number] [place] [address]- 2986 27 Jul, 2012 [facility] [place] [facility] [address] [id number] [place] [address]- 2876 21 Jul, 2012 [facility] [place] [facility] [address] [id number] [place] [address]- 9746 20 Jul, 2012 [facility] [place] [facility] [address] [id number] [place] [address]- 0506 11 Jul, 2012 [facility] [place] [facility] [address] [id number] [place] [address]- 2645 Jul, [facility] [place] [facility] [address] [id number] [place] [address]- 0226 May, [facility] [place] [facility] [address] [id number] [place] [address]- 7937 May, [facility] [place] [facility] [address] [id number] [place] [address]- 7248 May, [facility] [place] [facility] [address] [id number] [place] [address]- 1853 May, [facility] [place] [facility] [address] [id number] [place] [address]- 4822 Apr, [facility] [place] [facility] [address] [id number] [place] [address]- 0476 Apr, [facility] [place] [facility] [address] [id number] [place] [address]- 5516 Apr, [facility] [place] [facility] [address] [id number] [place] [address]- 3208 Apr, [facility] [place] [facility] [address] [id number] [place] [address]- 2549 Apr, [facility] [place] [facility] [address] [id number] [place] [address]- 5057 Apr, [facility] [place] [facility] [address] [id number] [place] [address]- 9144 13 Apr, 2012 [facility] [place] [facility] [address] [id number] [place] [address]- 5312 09 Apr, 2012 [facility] [place] [facility] [address] [id number] [place] [address]- 1657 28 Mar, 2012 [facility] [place] [facility] [address] [id number] [place] [address]- 5403 27 Mar, 2012 [facility] [place] [facility] [address] [id number] [place] [address]- 6119 20 Mar, 2012 [facility] [place] [facility] [address] [id number] [place] [address]- 9847 15 Mar, 2012 [facility] [place] [facility] [address] [id number] [place] [address]- 4327 14 Mar, 2012 [facility] [place] [facility] [address] [id number] [place] [address]- 3212 Mar, [facility] [place] [facility] [address] [id number] [place] [address]- 1562 Mar, [facility] [place] [facility] [address] [id number] [place] [address]- 7674 Mar, [facility] [place] [facility] [address] [id number] [place] [address]- 7022 08 Mar, 2012 [facility] [place] [facility] [address] [id number] [place] [address]- 8907 February, [facility] [place] [facility] [address] [id number] [place] [address]- 4345 February, [facility] [place] [facility] [address] [id number] [place] [address]- 2248 February, [facility] [place] [facility] [address] [id number] [place] [address]- 2382 February, [facility] [place] [facility] [address] [id number] [place] [address]- 2354 13 Jan, 2012 [facility] [place] [facility] [address] [id number] [place] [address]- 3533 03 Jan, 2012 [facility] [place] [facility] [address] [id number] [place] [address]- 7961 28 Dec, 2011 [facility] [place] [facility] [address] [id number] [place] [address]- 2886 15 Dec, 2011 [facility] [place] [facility] [address] [id number] [place] [address]- 3256 14 Dec, 2011 [facility] [place] [facility] [address] [id number] [place] [address]- 9258 07 Dec, 2011 [facility] [place] [facility] [address] [id number] [place] [address]- 1735 28 Dec, 2011 [facility] [place] [facility] [address] [id number] [place] [address]- 4636 27 Dec, 2011 [facility] [place] [facility] [address] [id number] [place] [address]- 7121 Dec, [facility] [place] [facility] [address] [id number] [place] [address]- 3144 Dec, [facility] [place] [facility] [address] [id number] [place] [address]- 0065 Dec, [facility] [place] [facility] [address] [facility] [id number] [place] [address]- 4965 Dec, [facility] [place] [facility] [address] [facility] [id number] [place] [address]- 5212 Dec, [facility] [place] [facility] [address] [id number] [place] [address]- 0320 Dec, [facility] [place] [facility] [address] [id number] [place] [address]- 0744 Oct, [facility] [place] [facility] [address] [id number] [place] [address]- 7708 Oct, [facility] [place] [facility] [address] [id number], [place] [address]- 7646 Oct, [facility] [place] [facility] [address] [id number] [place] [address]- 1823 Oct, [facility] [place] [facility] [address] [id number] [place] [address]- 1456 Oct, [facility] [place] [facility] [address] [id number] [place] [address]- 8346 Oct, [facility] [place] [facility] [address] [id number], [place] [address]- 3167 16 Oct, 2011 [facility] [place] [facility] [address] [id number] [place] [address]- 5486 Oct, [facility] [place] [facility] [address] [id number] [place] [address]- 1896 Sep, [facility] [place] [facility] [address] [id number], [place] [address]- 1834 Sep, [facility] [place] [facility] [address] [id number], [place] [address]- 2386 Sep, [facility] [place] [facility] [address] [id number], [place] [address]- 1587 Aug, [facility] [place] [facility] [address] [id number], [place] [address]- 2837 Aug, [facility] [place] [facility] [address] [id number], [place] [address]- 9363 16 Aug, 2011 [facility] [place] [facility] [address] [id number], [place] [address]- 0871 14 Aug, 2011 [facility] [place] [facility] [address] [id number], [place] [address]- 0227 Aug, [facility] [place] [facility] [address] [id number], [place] [address]- 9247 19 Jul, 2011 [facility] [place] [facility] [address] [id number], [place] [address]- 8868 13 Jul, 2011 [facility] [place] [facility] [address] [facility] [id number], [place] [address] May, [facility] [address] [id number], [place] [address] Dec, [facility] [address] [id number], [place] [address] 2886 Oct, [facility] [address] [id number], [place] [address] Sep, [facility] [address] [id number], [place] [address]- [address]15 Sep, [facility] [address] [id number], [place] [address]- 3902 Sep, IMMUNIZATIONS No Known Immunizations SOCIAL HISTORY Never Assessed REASON FOR VISIT Medication refill request PLAN OF CARE VITAL SIGNS MEDICATIONS Medication Instructions Dosage Frequency Start Date End Date Duration Status Escitalopram Oxalate 20 MG Orally Once a day 1 tablet 24h 30 days Active Farxiga 10 mg Orally Once a day 1 tablet 24h Aug, 90 days Active RESULTS No Results PROCEDURES No [...] reflux Surgical History Left Knee SOA-Dr. Melendrez-[facility] 05/19/16 Surgical History Colonoscopy- Dr Castanon 01/26/2017 Hospitalization History surgeries Hospitalization History Left Knee SOA--Dr. Melendrez--[facility] Hospitalization History Septic shock, UTI-[facility] 07/27/17 Hospitalization History Multiple falls, hyperglycemia, sepsis 07/2017 Hospitalization History Alcoholism, depression, DM, Falls-[facility] 08/23/17 Hospitalization History COPD exacerbation-[facility] 11/25/17 Hospitalization History COPD exacerbation-[facility] 11/28/17
--- OUTSIDE RECORDS SUMMARY | 2018-05-10 03:34 | XMS REPORT ---
Author Author PHUONG EPPS Organization [facility] Address [address] [place] [address] Care Team Providers Care Bank Compliance Officer Name Role Phone PHUONG EPPS Unavailable PROBLEMS Type Condition ICD9-CM Code MRO76-YD Code Onset Dates Condition Status SNOMED Code Problem Generalized anxiety disorder F41.1 Active 15508080 Problem Diabetes E11.9 Active 90527712 Problem Psoriasis L40.9 Active 8205447 Problem Tobacco abuse Z72.0 Active 82651394 Problem 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 I10 Active 43297684 Problem Back pain M54.9 Active 720420006 Problem Arthritis M19.90 Active 5713651 Problem long term care administrator 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 Active 049745088 Problem Psoriatic arthritis L40.50 Active 384083461 Problem Psychophysiological insomnia F51.04 Active 36009906 Problem Other specified 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 Active 242849366 Problem Obesity (BMI 30-39.9) E66.9 Active 295810277 Problem Major depressive disorder, recurrent, moderate F33.1 Active 52998880 Problem Essential hypertension I10 Active 17582095 Problem Type 2 diabetes mellitus with hyperglycemia E11.65 Active 406363092233056 Problem Alcoholism F10.20 Active 3816853 Problem Frequent falls R29.6 Active 000552744 Problem Benzodiazepine abuse F13.10 Active 215058240 Problem PTSD (post-traumatic stress disorder) F43.10 Active 10964838 Problem Eating disorder F50.9 Active 09678910 Problem Attention-deficit hyperactivity disorder, combined type F90.2 Active 21823289 Problem COPD exacerbation J44.1 Active 694759198 Problem Anxiety F41.9 Active 44087988 Problem Decubitus ulcer of left buttock, stage 2 L89.322 Active 223597994 Problem BMI 40.0-44.9, adult Z68.41 Active 570271335 Problem Alcohol abuse F10.10 Active 78090007 Problem Pneumonia due to methicillin resistant Staphylococcus aureus, unspecified laterality, unspecified part of lung J15.212 Active 384537667044536 Problem Type 2 diabetes mellitus with unspecified complications E11.8 Active 08781057 Problem Attention-deficit hyperactivity disorder, predominantly hyperactive type F90.1 Active 273697536 Problem Type 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 Active 48581598 Problem Ulcer of right foot, unspecified ulcer stage L97.519 Active 58552689 Problem Attention deficit R41.840 Active 03495139 Problem Mental disorder, not otherwise specified F99 Active 82349713 Problem Insomnia due to other mental disorder F51.05 Active 62884298 ALLERGIES No Information ENCOUNTERS Encounter Location Date Diagnosis [facility] [id number] [place] [address] 08734- 4925 Mar, [facility] [id number] [place] [address] 81876- 4341 Jan, [facility] [id number] [place] [address] 99750- 6494 Dec, Major depressive disorder, recurrent episode, unspecified severity F33.9 ; Generalized anxiety disorder F41.1 and Eating disorder F50.9 [facility] [id number] [place] [address] 93901- 5232 Dec, [facility] [id number] [place] [address] 35301- 7502 Dec, [facility] [address] [place] [address] 53257- 8934 Dec, [facility] [id number] [place] [address] 42864- 2461 Dec, Increased urinary frequency R35.0 ; Frequent falls R29.6 ; Decubitus ulcer of left buttock, stage 2 L89.322 ; Benzodiazepine abuse F13.10 ; BMI 40.0-44.9, adult Z68.41 and Yeast infection B37.9 [facility] [id number] [place] [address] 42664- 3091 Dec, [facility] [address] [address] 9671 Dec, [facility] [id number] [place] [address] 11071- 2070 Dec, Increased urinary frequency R35.0 [facility] [address] [address] 9267 Dec, Increased urinary frequency R35.0 [facility] [address] [place] [address] 90517- 5877 Dec, Generalized anxiety disorder F41.1 ; Major depressive disorder, recurrent, moderate F33.1 and Psychophysiological insomnia F51.04 [facility] [address] [place] [address] 31607- 5544 08 Dec, 2017 BMI 40.0-44.9, adult Z68.41 ; Type 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 ; Pneumonia due to methicillin resistant Staphylococcus aureus, unspecified laterality, unspecified part of lung J15.212 and COPD exacerbation J44.1 [facility] [address] [address] Dec, [facility] [id number] [place] [address] [id number] Dec, [facility] [id number] [place] [address] [id number] Oct, [facility] [address] [place] [address] 87924 -8992 Oct, Frequency of urination R35.0 ; Bronchitis J40 and BMI 40.0- 44.9, adult Z68.41 [facility] [id number] [place] [address] [id number] Oct, [facility] [address] [place] [address] 03933- 5588 Oct, [facility] [address] [place] [address] 70146- 8095 23 Isai, 2018 BMI 40.0-44.9, adult Z68.41 ; Type 2 diabetes mellitus with hyperglycemia E11.65 ; Essential hypertension I10 ; Vaginal yeast infection B37.3 ; Anxiety F41.9 and Alcoholism F10.20 [facility] [id number] [place] [address] 32565- 3506 Oct, [facility] [id number] [place] [address] 55001- 2164 Oct, [facility] [address] 14775- 7377 Sep, [address] 75409- 7694 Sep, Major depressive disorder, recurrent episode, unspecified severity F33.9 ; Generalized anxiety disorder F41.1 and Eating disorder F50.[address] 39466- 9625 Sep, Major depressive disorder, recurrent, moderate F33.1 ; Type 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 ; Alcohol abuse F10.10 ; Obesity (BMI 30-39.9) E66.9 and Psychophysiological insomnia F51.04 [place] [id number] [place] [address] 36971- 6843 Sep, Diabetes E11.9 and Generalized anxiety disorder F41.1 [place] [id number] [place] [address] 23596- 9931 Sep, Major depressive disorder, recurrent episode, unspecified severity F33.9 ; Generalized anxiety disorder F41.1 and Eating disorder F50.9 [place] [id number] [place] [address] 91984- 4866 Sep, [address] 36656- 7258 Aug, [facility] [id number] [place] [address] 42862- 0464 Aug, Insomnia due to other mental disorder F51.05 ; Mental disorder, not otherwise specified F99 ; Attention deficit R41.840 ; Ulcer of right foot, unspecified ulcer stage L97.519 ; Cough R05 ; Diabetes E11.9 ; Sore in mouth K13.79 ; Generalized anxiety disorder F41.1 ; Major depressive disorder , recurrent episode, unspecified severity F33.9 and BMI 40.0-44.9, adult Z68.41 [facility] [address] [address] 9578 Aug, [facility] [id number] [place] [address] 98183- 6701 Aug, [facility] [id number] [place] [address] 09186- 3712 Aug, [facility] [id number] [place] [address] 81682- 0876 Aug, [facility] [id number] [place] [address] 54593- 3052 Aug, Diabetes E11.9 [facility] [address] [place] [id number] Aug, Falling R29.6 ; Alcohol abuse F10.10 ; Major depressive disorder, recurrent episode, unspecified severity F33.9 ; 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 I10 ; Type 2 diabetes mellitus with unspecified complications E11.8 and longterm 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 [place] [id number] [place] [address] [id number] Aug, [facility] [address] [place] [id number] Aug, Alcohol abuse F10.10 ; Major depressive disorder, recurrent episode, unspecified severity F33.9 ; Generalized anxiety disorder F41.1 ; long term care administrator 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 ; Psoriatic arthritis L40.50 and Diabetes E11.9 [place] [address] [id number] Aug, [place] [id number] [place] [address] [id number] Jul, [facility] [address] [address]- 1287 Jul, [facility] [id number] [place] [address] 39613- 6578 Jul, Generalized anxiety disorder F41.1 [facility] [address] [place] [address] 32574- 0132 Jul, [facility] [id number] [place] [address] 29252- 2164 Jul, [facility] [address] [place] [address] 14476- 2989 Jul, Generalized anxiety disorder F41.1 ; Major depressive disorder, recurrent episode, unspecified severity F33.9 ; PTSD (post-traumatic stress disorder) F43.10 ; Eating disorder F50.9 and Attention-deficit hyperactivity disorder, predominantly hyperactive type F90.1 [facility] [id number] [place] [address] 24338- 5519 Jul, [facility] [address] [place] [address] 68814- 1076 Jul, [facility] [id number] [place] [address] 89791- 2237 Jul, long term care administrator 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 ; Type 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 ; Urinary tract infection, site not specified N39.0 ; Sepsis, unspecified organism A41.9 and Essential hypertension I10 [facility] [id number] [address] 29 Jul, 2017 [facility] [id number] [place] [address] 10990 -9865 Jul, [facility] [address] [place] [address] 87468- 0756 Jul, Generalized anxiety disorder F41.1 [facility] [address] [place] [address] 36185- 6944 15 Jul, 2017 [facility] [address] [address]- 4694 Jul, Generalized anxiety disorder F41.1 [facility] [address], [place] [address]- 3441 May, Generalized anxiety disorder F41.1 ; Major depressive disorder, recurrent episode, unspecified severity F33.9 ; PTSD (post-traumatic stress disorder) F43.10 ; Eating disorder F50.9 and Attention-deficit hyperactivity disorder, predominantly hyperactive type F90.1 [facility] [address] [address]- 0665 May, Diabetes E11.9 [facility] [address], [place] [address] May, Acute non-recurrent maxillary sinusitis J01.00 and Diabetes E11.9 [facility] [address], [place] [address]- 9821 May, [facility] [address], [place] [address]- 6863 May, [facility] [id number] [place] [address] 84142- 9318 May, Generalized anxiety disorder F41.1 [facility] [address], [place] [address]- 5101 Apr, [facility] [address], [place] [address]- 5594 Apr, [facility] [address], [place] [address]- 4144 Apr, [facility] [address], [place] [address]- 6911 Apr, Generalized anxiety disorder F41.1 ; Major depressive disorder, recurrent episode, unspecified severity F33.9 ; PTSD (post-traumatic stress disorder) F43.10 ; Eating disorder F50.9 and Attention-deficit hyperactivity disorder, predominantly hyperactive type F90.1 [facility] [address], [place] [address]- 0766 Apr, Major depressive disorder, recurrent, moderate F33.1 [facility] [id number] [place] [address] 99315- 9645 Mar, Diabetes E11.9 [facility] [address] [place] [address] 88317- 2641 Mar, Attention-deficit hyperactivity disorder, combined type F90.2 [facility] [id number] [place] [address] 17044- 3741 14 Mar, 2017 [facility] [id number] [place] [address] 73446- 2852 09 Mar, 2017 Diabetes E11.9 [facility] [id number] [place] [address] 71689- 8040 07 Mar, 2017 long term care administrator 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 ; Psoriatic arthritis L40.50 ; Other specified 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 and 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 I10 [facility] [address] [place] [address] 36544- 9031 February, Back pain M54.9 [facility] [id number] [place] [address] 35921- 8078 February, Attention-deficit hyperactivity disorder, combined type F90.2 [facility] [address] [place] [address] 95558- 3322 February, Major depressive disorder, recurrent episode, unspecified severity F33.9 and Generalized anxiety disorder F41.1 [facility] [address] [place] [address] 61648- 9774 Jan, Attention-deficit hyperactivity disorder, combined type F90.2 [facility] [address] [place] [address] 70530- 8077 Jan, Major depressive disorder, recurrent, moderate F33.1 ; Generalized anxiety disorder F41.1 and Attention-deficit hyperactivity disorder , combined type F90.2 [facility] [address] [address]- 4336 Dec, Major depressive disorder, recurrent episode, unspecified severity F33.9 ; Generalized anxiety disorder F41.1 and Attention-deficit hyperactivity disorder, predominantly hyperactive type F90.1 [facility] [address] [place] [address] 30731- 0792 Dec, Major depressive disorder, recurrent episode, unspecified severity F33.9 and Generalized anxiety disorder F41.1 [facility] [id number] [place] [address] 87726- 6533 Dec, [facility] [id number] [place] [address] 35326- 9449 Dec, [facility] [id number] [place] [address] 33321- 4654 Dec, Major depressive disorder, recurrent episode, unspecified severity F33.9 and Generalized anxiety disorder F41.1 [facility] [id number] [place] [address] 44900- 3293 Dec, Back pain M54.9 [facility] [id number] [place] [address] 51936- 1408 17 Dec, 2016 Eustachian tube dysfunction, right H69.81 and Arthritis M19.90 [facility] [facility] [address], [place] [address]- 1661 Dec, [facility] [facility] [id number] [place] [address] 41677- 0536 Dec, [place] [address] [place] [address] 47330- 4890 Dec, Major depressive disorder, recurrent episode, unspecified severity F33.9 [facility] [address], [place] [address]- 1304 Oct, [facility] [address] [place] [address] 93069 -0613 Oct, Acute non-recurrent pansinusitis J01.40 and Sore throat J02.9 [facility] [address] [place] [address] 72365- 8299 Oct, Major depressive disorder, recurrent episode, unspecified severity F33.9 [facility] [id number] [place] [address] 21525- 5518 Oct, Major depressive disorder, recurrent episode, unspecified severity F33.9 and Generalized anxiety disorder F41.1 [place] [id number] [place] [address] 40605- 9441 Sep, [facility] [address] 49673- 0781 Sep, Major depressive disorder, recurrent episode, unspecified severity F33.9 [place] [id number] [place] [address] 84029- 3604 Sep, Major depressive disorder, recurrent episode, unspecified severity F33.9 [facility] [id number] [place] [address] 53080 -2929 Sep, Sore throat J02.9 [facility] [id number] [place] [address] 94616- 7607 15 Sep, 2016 Generalized anxiety disorder F41.1 ; Major depressive disorder, recurrent episode, unspecified severity F33.9 and Attention-deficit hyperactivity disorder, predominantly hyperactive type F90.1 [place] [address] [place] [address] 63440- 5095 08 Sep, 2016 Major depressive disorder, recurrent episode, unspecified severity F33.9 and Generalized anxiety disorder F41.1 [place] [address] [place] [address] 81501- 3591 07 Sep, 2016 Psoriatic arthritis L40.50 [place] [address] [place] [address] 13487- 8160 02 Sep, 2016 Diabetes E11.9 ; long term care administrator 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 ; Back pain M54.9 and Encounter for immunization Z23 [facility] [address], [place] [address]- 3505 Aug, [facility] [id number] [place] [address] 61741- 9719 Aug, [facility] [id number] [place] [address] 91743- 3369 Jul, Major depressive disorder, recurrent episode, unspecified severity F33.9 ; Attention-deficit hyperactivity disorder, predominantly hyperactive type F90.1 and Generalized anxiety disorder F41.1 [facility] [id number] [place] [address] 54885- 9743 Jul, [facility] [id number] [place] [address] 01875- 4460 22 Jul, 2016 Major depressive disorder, recurrent, in partial remission F33.41 and Generalized anxiety disorder F41.1 [facility] [id number] [place] [address] 54232- 7333 Jul, [facility] [id number] [place] [address] 68958- 2082 Jul, [facility] [id number] [place] [address] 29053- 6239 Jul, [facility] [id number] [place] [address] 97096- 8190 Jul, [facility] [id number] [place] [address] 53681- 9697 12 Jul, 2016 Diabetes E11.9 [facility] [address] [place] [address] 73384- 6660 May, [facility] [id number] [place] [address] 71542- 9570 May, [facility] [id number] [place] [address] 87372- 7154 May, [facility] [id number] [place] [address] 08599- 9691 May, Major depressive disorder, recurrent episode, unspecified severity F33.9 ; Generalized anxiety disorder F41.1 and Attention-deficit hyperactivity disorder, predominantly hyperactive type F90.1 [place] [address] [place] [address] 51914- 2152 May, [facility] [id number] [place] [address] 56456- 2900 May, Diabetes E11.9 [place] [id number] [place] [address] 24802- 2869 May, [place] [id number] [place] [address] 76324- 5271 May, [facility] [place] [address] [facility] [place] [id number] May, Diabetes E11.9 ; Generalized anxiety disorder F41.1 and Nausea R11.0 [place] [id number] [place] [address] 43309- 3178 May, Psoriatic arthritis L40.50 and Candidiasis of female genitalia B37.3 [place] [id number] [place] [address] 44366- 2217 May, [place] [id number] [place] [address] 49608- 2295 Apr, [place] [address] [place] [address] 04652- 8330 Apr, [place] [id number] [place] [address] 08754- 8480 Apr, [place] [id number] [place] [address] 86455- 7707 Apr, Generalized anxiety disorder F41.1 ; Major depressive disorder, recurrent episode, unspecified severity F33.9 and Attention-deficit hyperactivity disorder, predominantly hyperactive type F90.1 [place] [address] [place] [address] 04489- 3358 Apr, [facility] [address] [place] [address] 10594- 3791 Apr, [facility] [id number] [place] [address] 34339- 8420 Apr, [facility] [id number] [place] [address] 03965- 0672 Apr, [facility] [id number] [place] [address] 46281- 1074 Apr, [facility] [id number] [place] [address] 43467- 6145 Mar, Attention-deficit hyperactivity disorder, predominantly hyperactive type F90.1 [facility] [id number] [place] [address] 00244- 5631 Mar, [facility] [id number] [place] [address] 34304- 8400 Mar, [facility] [id number] [place] [address] [phone] Mar, Major depressive disorder, recurrent episode, unspecified severity F33.9 and Generalized anxiety disorder F41.1 [facility] [id number] [place] [address] [phone] February, Diabetes E11.9 [facility] [id number] [place] [address] [phone] February, OME (otitis media with effusion), bilateral H65.93 [facility] [id number] [place] [address] [phone] February, Back pain M54.9 [facility] [id number] [place] [address] [phone] February, [facility] [id number] [place] [address] [phone] February, Nausea R11.0 [facility] [id number] [place] [address] 15343- 9028 February, [facility] [id number] [place] [address] 68450- 7517 February, Pre-op evaluation Z01.818 ; Type 2 diabetes mellitus with hyperglycemia E11.65 and longterm 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 [facility] [id number] [place] [address] 10993- 9718 February, [facility] [id number] [place] [address] 87091 -5485 February, Right otitis externa H60.91 [facility] [id number] [place] [address] 90851- 8693 Jan, [facility] [id number] [place] [address] 14440- 0799 Jan, Psoriatic arthritis L40.50 and Arthralgia, unspecified joint M25.50 [facility] [id number] [place] [address] 68641- 5561 Jan, Major depressive disorder, recurrent episode, unspecified severity F33.9 ; Generalized anxiety disorder F41.1 and Attention-deficit hyperactivity disorder, unspecified type F90.9 [facility] [id number] [place] [address] 67559- 5303 Jan, [facility] [id number] [place] [address] 27598- 7655 Jan, [facility] [id number] [place] [address] 80530- 4216 Jan, Major depressive disorder, recurrent episode, unspecified severity F33.9 and Generalized anxiety disorder F41.1 [facility] [id number] [place] [address] 10041- 2405 Jan, [facility] [id number] [place] [address] 73526- 0653 Dec, 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 I10 and Arthritis M19.90 [facility] [address] [place] [address]- 1529 Dec, [facility] [id number] [place] [address] 92463- 2440 Dec, [facility] [address] [address]- 4115 Dec, [facility] [id number] [place] [address] 77485- 4730 Dec, [facility] [id number] [place] [address] 99733- 2731 Dec, [facility] [id number] [place] [address] 10631- 6308 Dec, Major depressive disorder, recurrent episode, unspecified severity F33.9 and Generalized anxiety disorder F41.1 [facility] [id number] [place] [address] 22547- 1142 Dec, Diabetes E11.9 ; Back pain M54.9 ; Thrush B37.0 and 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 I10 [facility] [address] [address] 3487 Dec, Major depressive disorder, recurrent episode, unspecified severity F33.9 and Generalized anxiety disorder F41.1 [facility] [id number] [place] [address] 38263- 0471 Dec, Major depressive disorder, recurrent episode, in partial or unspecified remission 296.35 ; Major depressive disorder, recurrent episode, unspecified severity F33.9 and Generalized anxiety disorder 300.02 [facility] [address] [address]- 7710 Dec, [facility] [id number] [place] [address] 79048- 8165 Oct, [facility] [id number] [place] [address] 43265- 6817 Oct, [facility] [id number] [place] [address] 72662- 4343 Oct, [facility] [id number] [place] [address] 25964- 6917 Oct, [facility] [id number] [place] [address] 38145- 1283 Oct, Major depressive disorder, recurrent, moderate F33.1 and Attention-deficit hyperactivity disorder, unspecified type F90.9 [facility] [address] 48565- 4193 Oct, longterm (current) use of opiate analgesic Z79.891 [facility] [address] 90695- 7671 Oct, [facility] [address] 87786- 5196 Oct, [facility] [address] 43410 -9428 Sep, URI (upper respiratory infection) J06.9 ; Psoriasis L40.9 ; Cough R05 and Tobacco abuse Z72.0 [facility] [id number] [place] [address] 79762- 8411 Sep, Major depressive disorder, recurrent episode, in partial or unspecified remission 296.35 ; Generalized anxiety disorder 300.02 and ADHD, 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 [facility] [id number] [place] [address] 53638 -5838 Sep, Acute sinusitis, unspecified J01.90 [facility] [id number] [place] [address] 82500- 3995 Sep, [facility] [id number] [place] [address] 41501- 4556 Sep, Major depressive disorder, recurrent, moderate F33.1 ; Generalized anxiety disorder F41.1 and Attention-deficit hyperactivity disorder , combined type F90.2 [facility] [id number] [place] [address] 97488- 8791 Sep, [facility] [address], [place] [address]- 2659 Aug, [facility] [id number] [place] [address] 71909- 2907 Aug, [facility] [address], [place] [address]- 3039 Aug, Diabetes E11.9 and Anxiety F41.9 [facility] [id number] [place] [address] 20564- 1907 Aug, Major depressive disorder, recurrent episode, unspecified severity F33.9 and Generalized anxiety disorder F41.1 [facility] [id number] [place] [address] 10875- 8403 Aug, [facility] [id number] [place] [address] 31151- 8500 Jul, [facility] [id number] [place] [address] 11452- 7299 Jul, [facility] [id number] [place] [address] 54605- 7424 Jul, [facility] [id number] [place] [address] 21306- 6283 Jul, [facility] [address] [address]- 6211 Jul, Major depressive disorder, recurrent episode, in partial or unspecified remission 296.35 ; Generalized anxiety disorder 300.02 and ADHD, 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 [facility] [address], [place] [address]- 6421 10 Jul, 2015 Major depressive disorder, recurrent episode, in partial or unspecified remission 296.35 ; Generalized anxiety disorder 300.02 and ADHD, 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 [facility] [address], [place] [address]- 6473 04 Jul, 2015 [facility] [id number], [place] [address]- 4085 May, [facility] [id number] [place] [address] 52392- 3440 May, [facility] [id number] [place] [address] 25777- 9042 May, DM w/o complication type II 250.00 ; Dyspepsia 536.8 and PAD (peripheral artery disease) 443.9 [facility] [id number] [place] [address] 82163- 9158 May, Major depressive disorder, recurrent episode, moderate 296.32 and Generalized anxiety disorder 300.02 [facility] [id number] [place] [address] 35698- 3156 May, [facility] [id number] [place] [address] 07494- 1525 May, Major depressive disorder, recurrent episode, moderate 296.32 and Generalized anxiety disorder 300.02 [facility] [id number] [place] [address] 60034- 4330 May, [facility] [id number] [place] [address] 07884- 6450 Apr, [facility] [id number] [place] [address] 28205- 9085 Apr, Major depressive disorder, recurrent episode, moderate 296.32 and Generalized anxiety disorder 300.02 [facility] [id number] [place] [address] 71954- 6299 Apr, [facility] [id number] [place] [address] 95054- 7582 Apr, [facility] [id number] [place] [address] 57747- 8368 Apr, Generalized anxiety disorder 300.02 ; ADHD, 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 and Depression, major, recurrent, moderate 296.32 [facility] [id number] [place] [address] [id number]- 1394 Apr, Major depressive disorder, recurrent episode, moderate 296.32 and Generalized anxiety disorder 300.02 [facility] [id number] [place] [address] [id number]- 8917 Apr, [facility] [id number] [place] [address] 324161- 0736 Apr, [facility] [id number] [place] [address] [id number]- 3801 Mar, [facility] [id number] [place] [address] 469206- 2652 Mar, Major depressive disorder, recurrent episode, moderate 296.32 and Generalized anxiety disorder 300.02 [facility] [id number] [place] [address] 14983- 4100 Mar, ADHD, 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 ; Major depressive disorder, recurrent episode, severe, without mention of psychotic behavior 296.33 and Generalized anxiety disorder 300.02 [facility] [id number] [place] [address] 55432- 0865 February, Major depressive disorder, recurrent episode, moderate 296.32 and Generalized anxiety disorder 300.02 [facility] [address] [address]- 7452 February, [facility] [address], [place] [address]- 3043 February, [facility] [id number] [place] [address] 24153- 9787 February, [facility] [id number] [place] [address] 60306- 0282 February, [facility] [id number] [place] [address] 17753- 1005 February, DM w/o complication type II 250.00 ; Impacted cerumen 380.4 ; Essential hypertension, benign 401.1 and Irritable colon 564.1 [facility] [id number] [place] [address]- 0226 15 Feb, 2015 [facility] [address] [id number] [place] [address]- 6096 February, [facility] [place] [facility] [address] [id number] [place] [address]- 2426 Jan, [facility] [place] [facility] [address] [id number] [place] [address]- 4886 30 Dec, 2014 [facility] [place] [facility] [address] [id number] [place] [address]- 0216 30 Dec, 2014 [facility] [place] [facility] [address] [id number] [place] [address]- 1926 Dec, [facility] [place] [facility] [address] [id number] [place] [address]- 0086 Dec, [facility] [place] [facility] [address] [id number] [place] [address]- 7819 16 Dec, 2014 [facility] [place] [facility] [address] [id number] [place] [address]- 3924 16 Dec, 2014 [facility] [place] [facility] [address] [id number] [place] [address]- 3089 10 Dec, 2014 [facility] [place] [facility] [address] [facility] [id number] [place] [address]- 0815 10 Dec, 2014 [facility] [place] [facility] [address] [id number] [place] [address]- 1346 Dec, [facility] [place] [facility] [address] [id number] [place] [address]- 2546 Dec, [facility] [place] [facility] [address] [id number] [place] [address]- 3296 Dec, [facility] [place] [facility] [address] [id number] [place] [address]- 2546 Dec, [facility] [place] [facility] [address] [id number] [place] [address]- 2789 Dec, [facility] [place] [facility] [address] [id number] [place] [address]- 0891 Dec, [facility] [place] [facility] [address] [id number] [place] [address]- 5171 Dec, [facility] [place] [facility] [address] [id number] [place] [address]- 7956 Dec, [facility] [place] [facility] [address] [id number] [place] [address]- 3085 Oct, [facility] [place] [facility] [address] [id number] [place] [address]- 9060 Oct, [facility] [place] [facility] [address] [id number] [place] [address]- 9935 Oct, [facility] [place] [facility] [address] [id number] [place] [address]- 8136 Oct, [facility] [place] [facility] [address] [id number] [place] [address]- 0923 Oct, [facility] [place] [facility] [address] [id number] [place] [address]- 7161 Oct, [facility] [place] [facility] [address] [id number] [place] [address]- 7125 Oct, [facility] [place] [facility] [address] [id number], [place] [address]- 0144 Oct, [facility] [place] [facility] [address] [id number], [place] [address]- 6658 Oct, [facility] [place] [facility] [address] [id number] [place] [address]- 8515 Oct, [facility] [place] [facility] [address] [id number], [place] [address]- 9606 Oct, [facility] [place] [facility] [address] [id number] [place] [address]- 2366 Sep, [facility] [place] [facility] [address] [id number] [place] [address]- 5014 Sep, [facility] [place] [facility] [address] [id number] [place] [address]- 9236 Sep, [facility] [place] [facility] [address] [id number] [place] [address]- 4276 Sep, [facility] [place] [facility] [address] [id number] [place] [address]- 9256 Sep, [facility] [place] [facility] [address] [id number] [place] [address]- 7266 Sep, [facility] [place] [facility] [address] [id number] [place] [address]- 4930 Sep, [facility] [place] [facility] [address] [id number] [place] [address]- 5263 Sep, [facility] [place] [facility] [address] [id number] [place] [address]- 5863 Aug, [facility] [place] [facility] [address] [id number] [place] [address]- 4533 Aug, [facility] [place] [facility] [address] [id number] [place] [address]- 2629 Aug, [facility] [place] [facility] [address] [id number] [place] [address]- 6060 Aug, [facility] [place] [facility] [address] [id number] [place] [address]- 6581 Aug, [facility] [place] [facility] [address] [id number] [place] [address]- 1959 Aug, [facility] [place] [facility] [address] [id number] [place] [address]- 1029 Aug, [facility] [place] [facility] [address] [id number] [place] [address]- 5829 Aug, [facility] [place] [facility] [address] [id number] [place] [address]- 9434 Aug, [facility] [place] [facility] [address] [id number] [place] [address]- 5631 Aug, [facility] [place] [facility] [address] [id number] [place] [address]- 8032 Aug, [facility] [place] [facility] [address] [id number] [place] 2168 Aug, [facility] [place] [facility] [address] [id number] [place] [address]- 0283 Aug, [facility] [place] [facility] [address] [id number] [place] [address]- 0165 Aug, [facility] [place] [facility] [address] [id number] [place] [address]- 3978 Jul, [facility] [place] [facility] [address] [id number] [place] [address]- 4509 Jul, [facility] [place] [facility] [address] [id number] [place] [address]- 7133 Jul, [facility] [place] [facility] [address] [id number] [place] [address]- 5689 Jul, [facility] [place] [facility] [address] [id number] [place] [address]- 0177 Jul, [facility] [place] [facility] [address] [id number] [place] [address]- 7185 Jul, [facility] [place] [facility] [address] [id number], [place] [address]- 9070 Jul, [facility] [place] [facility] [address] [id number] [place] [address]- 8804 Jul, [facility] [place] [facility] [address] [id number] [place] [address]- 9777 Jul, [facility] [place] [facility] [address] [id number] [place] [address]- 3583 Jul, [facility] [place] [facility] [address] [id number] [place] [address]- 4278 Jul, [facility] [place] [facility] [address] [id number] [place] [address]- 9733 Jul, [facility] [place] [facility] [address] [id number] [place] [address]- 5366 Jul, [facility] [place] [facility] [address] [id number] [place] [address]- 7368 Jul, [facility] [place] [facility] [address] [id number] [place] [address]- 6142 May, [facility] [place] [facility] [address] [id number] [place] [address]- 0199 May, [facility] [place] [facility] [address] [id number] [place] [address]- 4286 May, [facility] [place] [facility] [address] [id number] [place] [address]- 4202 May, [facility] [place] [facility] [address] [id number] [place] [address]- 2265 May, [facility] [place] [facility] [address] [id number] [place] [address]- 0177 May, [facility] [place] [facility] [address] [id number] [place] [address]- 0456 May, [facility] [place] [facility] [address] [id number] [place] [address]- 8981 May, [facility] [place] [facility] [address] [id number] [place] [address]- 4216 May, [facility] [place] [facility] [address] [id number] [place] [address]- 3260 May, [facility] [place] [facility] [address] [id number] [place] [address]- 7792 May, [facility] [place] [facility] [address] [id number] [place] [address]- 8308 May, [facility] [place] [facility] [address] [id number] [place] [address]- 9934 Apr, [facility] [place] [facility] [address] [id number] [place] [address]- 3053 Apr, [facility] [place] [facility] [address] [id number] [place] [address]- 5793 Apr, [facility] [place] [facility] [address] [id number] [place] [address]- 4672 Apr, [facility] [place] [facility] [address] [id number] [place] [address]- 6275 Apr, [facility] [place] [facility] [address] [id number] [place] [address]- 8829 Apr, [facility] [place] [facility] [address] [id number] [place] [address]- 7678 Mar, [facility] [place] [facility] [address] [id number] [place] [address]- 0482 Mar, [facility] [place] [facility] [address] [id number] [place] [address]- 7306 Mar, [facility] [place] [facility] [address] [id number] [place] [address]- 4871 Mar, [facility] [place] [facility] [address] [id number] [place] [address]- 2298 Mar, [facility] [place] [facility] [address] [id number] [place] [address]- 0056 Mar, [facility] [place] [facility] [address] [id number] [place] [address]- 5929 Mar, [facility] [place] [facility] [address] [id number] [place] [address]- 8951 Mar, [facility] [place] [facility] [address] [id number] [place] [address]- 9078 Mar, [facility] [place] [facility] [address] [id number] [place] [address]- 6655 Mar, [facility] [place] [facility] [address] [id number] [place] [address]- 1726 Mar, [facility] [place] [facility] [address] [id number] [place] [address]- 4709 Mar, [facility] [place] [facility] [address] [id number] [place] [address] Mar, [facility] [place] [facility] [address] [id number] [place] [address] February, [facility] [place] [facility] [address] [id number] [place] [address] February, [facility] [place] [facility] [address] [id number] [place] [address] February, [facility] [place] [facility] [address] [id number] [place] [address] February, [facility] [place] [facility] [address] [id number] [place] [address] February, [facility] [place] [facility] [address] [id number] [place] [address] February, [facility] [place] [facility] [address] [id number] [place] [address] February, [facility] [place] [facility] [address] [id number] [place] [address] February, [facility] [place] [facility] [address] [id number] [place] [address] February, [facility] [place] [facility] [address] [id number] [place] [address] February, [facility] [place] [facility] [address] [id number] [place] [address] February, [facility] [place] [facility] [address] [id number] [place] [address] February, [facility] [place] [facility] [address] [id number] [place] [address] February, [facility] [place] [facility] [address] [id number] [place] [address] February, [facility] [place] [facility] [address] [id number] [place] [address] Jan, [facility] [place] [facility] [address] [id number] [place] [address] Jan, [facility] [place] [facility] [address] [id number] [place] [address] Jan, [facility] [place] [facility] [address] [id number] [place] [address] Jan, [facility] [place] [facility] [address] [id number] [place] [address] Jan, [facility] [place] [facility] [address] [id number] [place] [address] Jan, [facility] [place] [facility] [address] [id number] [place] [address] Jan, [facility] [place] [facility] [address] [id number] [place] [address] Jan, [facility] [place] [facility] [address] [id number] [place] [address] Jan, [facility] [place] [facility] [address] [id number] [place] [address] Dec, [facility] [place] [facility] [address] [id number] [place] [address] Dec, [facility] [place] [facility] [address] [id number] [place] [address] Dec, [facility] [place] [facility] [address] [id number] [place] [address] Dec, [facility] [place] [facility] [address] [id number] [place] [address] Dec, [facility] [place] [facility] [address] [id number] [place] [address] Dec, [facility] [place] [facility] [address] [id number] [place] [address] Dec, [facility] [place] [facility] [address] [id number] [place] [address] Dec, [facility] [place] [facility] [address] [id number] [place] [address] Dec, [facility] [place] [facility] [address] [id number] [place] [address] Dec, [facility] [place] [facility] [address] [id number] [place] [address]- [address] 14 Dec, 2013 [facility] [place] [facility] [address] [id number] [place] [address] Dec, [facility] [place] [facility] [address] [id number] [place] [address] Dec, [facility] [place] [facility] [address] [id number] [place] [address] Dec, [facility] [place] [facility] [address] [id number] [place] [address] Dec, [facility] [place] [facility] [address] [facility] [id number] [place] [address] Dec, [facility] [place] [facility] [address] [id number] [place] [address] Dec, [facility] [place] [facility] [address] [id number] [place] [address] Oct, [facility] [place] [facility] [address] [id number] [place] [address] Oct, [facility] [place] [facility] [address] [id number] [place] [address] Oct, [facility] [place] [facility] [address] [id number], [place] [address] Oct, [facility] [address] [id number] [place] [address] Oct, [facility] [place] [facility] [address] [id number] [place] [address] Oct, [facility] [place] [facility] [address] [id number] [place] [address] Oct, [facility] [place] [facility] [address] [id number] [place] [address] Oct, [facility] [place] [facility] [address] [id number] [place] [address] Oct, [facility] [place] [facility] [address] [id number] [place] [address] Oct, [facility] [place] [facility] [address] [id number] [place] [address] Oct, [facility] [place] [facility] [address] [id number] [place] [address] Oct, [facility] [place] [facility] [address] [id number] [place] [address] Oct, [facility] [place] [facility] [address] [id number] [place] [address] Oct, [facility] [place] [facility] [address] [id number] [place] [address] Sep, [facility] [place] [facility] [address] [id number] [place] [address] Sep, [facility] [place] [facility] [address] [id number] [place] [address] Sep, [facility] [place] [facility] [address] [id number] [place] [address] Sep, [facility] [place] [facility] [address] [id number] [place] [address] 7105 Sep, [facility] [place] [facility] [address] [id number] [place] [address] 27 Sep, 2012 [facility] [address] [id number] [place] [address] 4[address] 27 Sep, 2013 [facility] [place] [facility] [address] [id number] [place] [address] 27 Sep, 2013 [facility] [place] [facility] [address] [id number] [place] [address]- 9586 27 Sep, 2013 [facility] [place] [facility] [address] [id number] [place] [address] 8105 27 Sep, 2013 [facility] [place] [facility] [address] [id number] [place] [address]- 5377 16 Sep, 2013 [facility] [place] [facility] [address] [id number] [place] [address] 16 Sep, 2013 [facility] [place] [facility] [address] [id number] [place] [address]- 7652 13 Sep, 2013 [facility] [place] [facility] [address] [id number] [place] [address]- 4413 13 Sep, 2013 [facility] [place] [facility] [address] [id number] [place] [address] 1948 10 Sep, 2013 [facility] [place] [facility] [address] [id number] [place] [address]- 2966 10 Sep, 2013 [facility] [place] [facility] [address] [id number] [place] [address]- 7876 02 Sep, 2013 [facility] [place] [facility] [address] [id number] [place] [address]- 2916 02 Sep, 2013 [facility] [place] [facility] [address] [id number] [place] [address]- 2946 15 Aug, 2013 [facility] [place] [facility] [address] [id number] [place] [address]- 2546 15 Aug, 2013 [facility] [place] [facility] [address] [id number] [place] [address]- 9602 16 Jul, 2013 [facility] [place] [facility] [address] [id number] [place] [address]- 6810 16 Jul, 2012 [facility] [place] [facility] [address] [id number] [place] [address]- 5767 14 Jul, 2013 [facility] [place] [facility] [address] [id number] [place] [address] 3014 14 Jul, 2013 [facility] [place] [facility] [address] [id number] [place] [address]- 2324 08 Jul, 2013 [facility] [place] [facility] [address] [id number] [place] [address]- 1302 20 Jul, 2012 [facility] [place] [facility] [address] [id number] [place] [address]- 5976 19 Jul, 2012 [facility] [place] [facility] [address] [id number] [place] [address]- 6054 13 Jul, 2012 [facility] [place] [facility] [address] [id number] [place] [address]- 1157 08 Jul, 2012 [facility] [place] [facility] [address] [id number] [place] [address]- 5444 06 Jul, 2012 [facility] [place] [facility] [address] [id number] [place] [address] 1940 06 Jul, 2012 [facility] [place] [facility] [address] [id number], [place] [address] 06 Jul, 2012 [facility] [place] [facility] [address] [id number], [place] [address]- 7[address] 03 Jul, 2012 [facility] [place] [facility] [address] [id number] [place] [address]- 2538 29 May, 2013 [facility] [place] [facility] [address] [id number] [place] [address]- 4915 26 May, 2013 [facility] [place] [facility] [address] [id number] [place] [address]- 7842 May, [facility] [place] [facility] [address] [id number] [place] [address] 6677 May, [facility] [address] [id number] [place] [address] 3314 Apr, [facility] [place] [facility] [address] [id number] [place] [address] Apr, [facility] [address] [id number] [place] [address] 4925 Apr, [facility] [place] [facility] [address] [id number] [place] [address]- 5934 Mar, [facility] [address] [id number] [place] [address]- 6545 Mar, [facility] [place] [facility] [address] [id number] [place] [address] 8830 Mar, [facility] [address] [id number] [place] [address]- 4187 Mar, [facility] [address] [id number] [place] [address]- 0203 February, [facility] [address] [id number] [place] [address]- 69[address] February, [facility] [address] [id number] [place] [address]- 0509 Jan, [facility] [place] [facility] [address] [id number] [place] [address]- 6298 Dec, [facility] [place] [facility] [address] [id number] [place] [address]- 6349 Dec, [facility] [place] [facility] [address] [id number] [place] [address]- 8779 Dec, [facility] [place] [facility] [address] [id number] [place] [address]- 6040 Dec, [facility] [place] [facility] [address] [id number] [place] [address]- 9176 Dec, [facility] [place] [facility] [address] [id number] [place] [address]- 2980 27 Dec, 2012 [facility] [address] [id number] [place] [address]- 6106 Dec, [facility] [address] [id number] [place] [address]- 3471 Dec, [facility] [place] [facility] [address] [id number] [place] [address]- 9000 Dec, [facility] [address] [id number] [place] [address]- 7080 15 Dec, 2012 [facility] [address] [id number] [place] [address]- 3620 14 Dec, 2012 [facility] [address] [id number] [place] [address]- 2914 Oct, [facility] [address] [id number] [place] [address]- 2718 Oct, [facility] [address] [id number] [place] [address]- 9083 Oct, [facility] [address] [id number] [place] [address]- 6931 Oct, [facility] [address] [id number] [place] [address]- 7695 Sep, [facility] [place] [facility] [address] [id number], [place] [address] 78[address] Sep, [facility] [place] [facility] [address] [id number] [place] [address]- 4431 Sep, [facility] [place] [facility] [address] [id number] [place] [address]- 3224 Sep, [facility] [place] [facility] [address] [id number] [place] [address]- 3733 Sep, [facility] [place] [facility] [address] [id number] [place] [address]- 1291 Sep, [facility] [place] [facility] [address] [id number] [place] [address]- 5190 Aug, [facility] [place] [facility] [address] [id number] [place] [address]- 6989 Aug, [facility] [place] [facility] [address] [facility] [id number] [place] [address]- 3925 Aug, [facility] [place] [facility] [address] [id number] [place] [address]- 6225 Aug, [facility] [place] [facility] [address] [id number] [place] [address]- 2338 Aug, [facility] [place] [facility] [address] [id number] [place] [address]- 1974 Aug, [facility] [place] [facility] [address] [facility] [id number] [place] [address]- 5561 Jul, [facility] [place] [facility] [address] [id number] [place] [address]- 5883 Jul, [facility] [place] [facility] [address] [id number] [place] [address]- 1487 Jul, [facility] [place] [facility] [address] [facility] [id number] [place] [address]- 3447 16 Jul, 2012 [facility] [place] [facility] [address] [facility] [id number] [place] [address]- 3020 05 Jul, 2012 [facility] [place] [facility] [address] [facility] [id number] [place] [address]- 1839 Jul, [facility] [place] [facility] [address] [id number] [place] [address]- 7787 27 Jul, 2012 [facility] [place] [facility] [address] [facility] [id number] [place] [address]- 0130 Jul, [facility] [place] [facility] [address] [facility] [id number] [place] [address]- 4564 20 Jul, 2012 [facility] [place] [facility] [address] [id number] [place] [address]- 7922 Jul, [facility] [place] [facility] [address] [id number] [place] [address]- 5306 Jul, [facility] [place] [facility] [address] [id number] [place] [address]- 4496 May, [facility] [place] [facility] [address] [id number] [place] [address]- 2817 May, [facility] [place] [facility] [address] [id number] [place] [address]- 4544 May, [facility] [place] [facility] [address] [id number] [place] [address]- 0003 May, [facility] [place] [facility] [address] [id number] [place] [address]- 8286 Apr, [facility] [place] [facility] [address] [id number] [place] [address]- 5742 Apr, [facility] [place] [facility] [address] [id number] [place] [address]- 0305 Apr, [facility] [place] [facility] [address] [id number] [place] [address]- 4092 Apr, [facility] [place] [facility] [address] [id number] [place] [address]- 3892 Apr, [facility] [place] [facility] [address] [id number] [place] [address]- 1541 Apr, [facility] [place] [facility] [address] [id number] [place] [address]- 2621 Apr, [facility] [place] [facility] [address] [id number] [place] [address]- 0957 Apr, [facility] [place] [facility] [address] [id number] [place] [address]- 9249 Mar, [facility] [place] [facility] [address] [id number] [place] [address]- 6687 27 Mar, 2012 [facility] [place] [facility] [address] [id number] [place] [address]- 6252 20 Mar, 2012 [facility] [place] [facility] [address] [id number] [place] [address]- 8250 15 Mar, 2012 [facility] [place] [facility] [address] [id number] [place] [address]- 1588 14 Mar, 2012 [facility] [place] [facility] [address] [id number] [place] [address]- 0752 12 Mar, 2012 [facility] [place] [facility] [address] [id number] [place] [address]- 8031 12 Mar, 2012 [facility] [place] [facility] [address] [id number] [place] [address]- 1393 11 Mar, 2012 [facility] [place] [facility] [address] [id number] [place] [address]- 2368 08 Mar, 2012 [facility] [place] [facility] [address] [id number] [place] [address]- 0529 30 Feb, 2012 [facility] [place] [facility] [address] [id number] [place] [address]- 8808 29 Feb, 2012 [facility] [place] [facility] [address] [id number] [place] [address]- 5809 25 Feb, 2012 [facility] [place] [facility] [address] [id number] [place] [address]- 6811 February, [facility] [place] [facility] [address] [id number] [place] [address]- 0156 13 Jan, 2012 [facility] [place] [facility] [address] [id number] [place] [address]- 6674 03 Jan, 2012 [facility] [place] [facility] [address] [id number] [place] [address]- 7325 28 Dec, 2011 [facility] [place] [facility] [address] [id number] [place] [address]- 1867 15 Dec, 2011 [facility] [place] [facility] [address] [id number] [place] [address]- 3198 14 Dec, 2011 [facility] [place] [facility] [address] [id number] [place] [address]- 9156 07 Dec, 2011 [facility] [place] [facility] [address] [id number] [place] [address]- 5516 28 Dec, 2011 [facility] [place] [facility] [address] [id number] [place] [address]- 2866 Dec, [facility] [place] [facility] [address] [id number] [place] [address]- 3315 Dec, [facility] [place] [facility] [address] [id number] [place] [address]- 3986 Dec, [facility] [place] [facility] [address] [id number] [place] [address]- 2324 Dec, [facility] [place] [facility] [address] [id number] [place] [address]- 8283 Dec, [facility] [place] [facility] [address] [id number] [place] [address]- 7362 Dec, [facility] [place] [facility] [address] [id number] [place] [address]- 7017 Dec, [facility] [place] [facility] [address] [id number] [place] [address]- 6594 Oct, [facility] [place] [facility] [address] [id number] [place] [address] 2546 Oct, [facility] [place] [facility] [address] [id number] [place] [address]- 3828 Oct, [facility] [place] [facility] [address] [id number] [place] [address] 2546 Oct, [facility] [place] [facility] [address] [id number] [place] [address]- 2916 Oct, [facility] [place] [facility] [address] [id number] [place] [address]- 2528 18 Oct, 2011 [facility] [place] [facility] [address] [id number] [place] [address]- 1041 16 Oct, 2011 [facility] [place] [facility] [address] [id number] [place] [address]- 9570 Oct, [facility] [place] [facility] [address] [id number] [place] [address]- 3430 Sep, [facility] [place] [facility] [address] [id number] [place] [address]- 4794 Sep, [facility] [place] [facility] [address] [id number] [place] Sep, [facility] [place] [facility] [address] [id number] [place] [address]- 2136 Aug, [facility] [place] [facility] [address] [id number] [place] [address]- 3324 Aug, [facility] [place] [facility] [address] [id number] [place] [address]- 0197 Aug, [facility] [place] [facility] [address] [id number] [place] [address]- 0600 Aug, [facility] [place] [facility] [address] [id number] [place] [address]- 0496 Aug, [facility] [place] [facility] [address] [id number], [place] [address]- 3268 Jul, [facility] [place] [facility] [address] [id number], [place] [address]- 1663 Jul, [facility] [place] [facility] [address] [id number] [place] [address]- 6642 May, [facility] [place] [facility] [address] [id number], [place] [address]- 2184 Dec, [facility] [place] [facility] [address] [id number], [place] [address]- 7181 Oct, [facility] [place] [facility] [address] [facility] [id number] [place] [address]- 2117 Sep, [facility] [address] [facility] [id number] [place] [address]- 9896 Sep, [facility] [address] [facility] [id number] [place] [address]- 0906 Sep, IMMUNIZATIONS No Known Immunizations SOCIAL HISTORY Never Assessed REASON FOR VISIT Hospital admit/DC PLAN OF CARE VITAL SIGNS MEDICATIONS Medication Instructions Dosage Frequency Start Date End Date Duration Status Lisinopril 10 MG TAKE ONE TABLET BY MOUTH ONCE DAILY (MUST HAVE APPOINTMENT FOR ADDITIONAL REFILLS) 30 Active PreserVision AREDS - Active Wellbutrin XL 150 MG Orally Once a day 3 in the morning 24h 30 days Active Adderall 30 MG Orally Once a day in the morning 1 tablet Jul, 28 days Active Gabapentin 100 mg Orally 2 times a day as needed for anxiety 1 capsule May, 30 days Active Invokana 100 MG TAKE ONE TABLET BY MOUTH DAILY 30 Active Protonix 40 mg Orally Once a day 1 tablet 24h Active Estradiol 0.5 MG 1 tablet Active Alprazolam 0.5 MG Orally once a day as needed 1 tablet 30 days Active Multivitamin Adult - Orally, bubble pack for retirement Once a day 1 tablet 24h Active Cephalexin 500 mg Orally 3 times a day 1 capsule 8h Jul, Jul, Active Insulin Detemir 100 UNIT/ML Subcutaneous twice a day 30 units 12h Sep, Active NovoLog Flexpen 100 UNIT/ML Subcutaneous 3 times a day 12 u 8h Sep, Active Tramadol HCl 50 mg Orally every 6 hrs 1 tablet as needed 6h Active Promethazine HCl 25 MG Orally every 4-6 hours as needed 1 tablet as needed 5 Active Diflucan 150 MG Orally every 3 days 1 tablet Jul, Jul, Active Escitalopram Oxalate 20 MG Orally Once a day 1 tablet 24h 30 days Active BD Insulin Syringe 30G X 1/2 subcutaneously 4 times a day use with insulin 6h May, Active RESULTS No Results PROCEDURES No Known [...] veinous reflux Surgical History Left Knee SOA-Dr. Melendrez-[facility] 05/19/16 Surgical History Colonoscopy- Dr Castanon 01/26/2017 Hospitalization History surgeries Hospitalization History Left Knee SOA--Dr. Melendrez--[facility] Hospitalization History Septic shock, UTI-[facility] [place] 07/27/17 Hospitalization History Multiple falls, hyperglycemia, sepsis 07/2017 Hospitalization History Alcoholism, depression, DM, Falls-[facility] [place] 08/23/17 Hospitalization History COPD exacerbation-[facility] [place] 11/25/17 Hospitalization History COPD exacerbation-[facility] [place] 11[facility]28/17
[2018-05-10 03:36] LABS: BILIRUBIN,URINE NEGATIVE (NEGATIVE); CLARITY,URINE SLIGHTLY CLOUDY; COLOR,URINE RED; GLUCOSE, URINE (UA) 4+ (NEGATIVE); KETONES,URINE 3+ (NEGATIVE); LEUKOCYTE ESTERASE ,URINE 2+ (NEGATIVE); NITRITE,URINE NEGATIVE (NEGATIVE); PH,URINE 6 (5-9); PROTEIN,URINE 4+ (NEGATIVE); UROBILINOGEN,URINE NORMAL (NORMAL)
--- OUTSIDE RECORDS SUMMARY | 2018-05-10 03:36 | XMS REPORT ---
Author Author REJI ROY [facility] Address [address] [place] [address] Care Team Providers Care Appraisal Technician Name Role Phone REJI ROY Unavailable PROBLEMS Type Condition ICD9-CM Code AXV04-HH Code Onset Dates Condition Status SNOMED Code Problem Generalized anxiety disorder F41.1 Active 66264369 Problem Diabetes E11.9 Active 79701156 Problem Psoriasis L40.9 Active 5472360 Problem Tobacco abuse Z72.0 Active 07958562 Problem 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 I10 Active 50025455 Problem Back pain M54.9 Active 307941572 Problem Arthritis M19.90 Active 0372978 Problem terminal carman 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 Active 886325829 Problem Psoriatic arthritis L40.50 Active 052283454 Problem Psychophysiological insomnia F51.04 Active 53757763 Problem Other specified 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 Active 275045377 Problem Obesity (BMI 30-39.9) E66.9 Active 114256490 Problem Major depressive disorder, recurrent, moderate F33.1 Active 38833934 Problem Essential hypertension I10 Active 42219759 Problem Type 2 diabetes mellitus with hyperglycemia E11.65 Active 968412222434195 Problem Alcoholism F10.20 Active 7554802 Problem Frequent falls R29.6 Active 253215595 Problem Benzodiazepine abuse F13.10 Active 870136834 Problem PTSD (post-traumatic stress disorder) F43.10 Active 84750588 Problem Eating disorder F50.9 Active 68665556 Problem Attention-deficit hyperactivity disorder, combined type F90.2 Active 21100026 Problem COPD exacerbation J44.1 Active 159801993 Problem Anxiety F41.9 Active 56273312 Problem Decubitus ulcer of left buttock, stage 2 L89.322 Active 301074631 Problem BMI 40.0-44.9, adult Z68.41 Active 988306140 Problem Alcohol abuse F10.10 Active 23330119 Problem Pneumonia due to methicillin resistant Staphylococcus aureus, unspecified laterality, unspecified part of lung J15.212 Active 591735925866107 Problem Type 2 diabetes mellitus with unspecified complications E11.8 Active 30056454 Problem Attention-deficit hyperactivity disorder, predominantly hyperactive type F90.1 Active 066616550 Problem Type 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 Active 13890704 Problem Ulcer of right foot, unspecified ulcer stage L97.519 Active 57924433 Problem Attention deficit R41.840 Active 94114014 Problem Mental disorder, not otherwise specified F99 Active 10204229 Problem Insomnia due to other mental disorder F51.05 Active 40053451 ALLERGIES No Information ENCOUNTERS Encounter Location Date Diagnosis [place] [address] [address] February, [place] [address] 24210- 1609 February, [place] [address] [address] Jan, [place] [address] 87223- 1163 Dec, Major depressive disorder, recurrent episode, unspecified severity F33.9 ; Generalized anxiety disorder F41.1 and Eating disorder F50.9 [place] [address] [place] [id number] [place] [address] 98348- 8545 Dec, [place] [address] [place] [id number] [place] [address] 29128- 3890 Dec, [place] [address] [place] [id number] [place] [address] 87000- 0603 Dec, [place] [address] 50986- 5788 Dec, Increased urinary frequency R35.0 ; Frequent falls R29.6 ; Decubitus ulcer of left buttock, stage 2 L89.322 ; Benzodiazepine abuse F13.10 ; BMI 40.0-44.9, adult Z68.41 and Yeast infection B37.9 [place] [address] 13973- 7653 Dec, [facility] [address] [address] Dec, [facility] [address] [place] [address] 75276- 8616 Dec, Increased urinary frequency R35.0 [facility] [address] [address] 2210 Dec, Increased urinary frequency R35.0 [facility] [address] [place] [address] 52961- 1936 Dec, Generalized anxiety disorder F41.1 ; Major depressive disorder, recurrent, moderate F33.1 and Psychophysiological insomnia F51.04 [facility] [address], [place] [address] 2847 Dec, BMI 40.0-44.9, adult Z68.41 ; Type 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 ; Pneumonia due to methicillin resistant Staphylococcus aureus, unspecified laterality, unspecified part of lung J15.212 and COPD exacerbation J44.1 [facility] [address] [address] Dec, [facility] [address] [place] [id number] [place] [id number] Dec, [facility] [address] [place] [id number] [place] [address] [id number] Oct, [facility] [address] [address] Oct, Frequency of urination R35.0 ; Bronchitis J40 and BMI 40.0- 44.9, adult Z68.41 [facility] [address] [place] [id number] [place] [address] [id number] Oct, [facility] [address], [place] [address] 02[address] Oct, [facility] [address] [place] [id number] [place] [address] 32227- 1582 Oct, BMI 40.0-44.9, adult Z68.41 ; Type 2 diabetes mellitus with hyperglycemia E11.65 ; Essential hypertension I10 ; Vaginal yeast infection B37.3 ; Anxiety F41.9 and Alcoholism F10.20 [place] [id number] [place] [address] 14549- 0373 Oct, [address] [address]- 2349 Oct, [address] 71227- 3903 Sep, [address] 88504- 1060 Sep, Major depressive disorder, recurrent episode, unspecified severity F33.9 ; Generalized anxiety disorder F41.1 and Eating disorder F50.[address] 10229- 6730 Sep, Major depressive disorder, recurrent, moderate F33.1 ; Type 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 ; Alcohol abuse F10.10 ; Obesity (BMI 30-39.9) E66.9 and Psychophysiological insomnia F51.04 [place] [id number] [place] [address] 27835- 8752 Sep, Diabetes E11.9 and Generalized anxiety disorder F41.1 [place] [id number] [place] [address] 37345- 4645 Sep, Major depressive disorder, recurrent episode, unspecified severity F33.9 ; Generalized anxiety disorder F41.1 and Eating disorder F50.[address] 48324- 0369 Sep, [address] 77624- 1780 Aug, [address] 31259- 5182 Aug, Insomnia due to other mental disorder F51.05 ; Mental disorder, not otherwise specified F99 ; Attention deficit R41.840 ; Ulcer of right foot, unspecified ulcer stage L97.519 ; Cough R05 ; Diabetes E11.9 ; Sore in mouth K13.79 ; Generalized anxiety disorder F41.1 ; Major depressive disorder , recurrent episode, unspecified severity F33.9 and BMI 40.0-44.9, adult Z68.41 [place] [address] [place] [address] 48409- 6814 Aug, [place] [address] [place] [address] 19419- 1755 Aug, [place] [address] [place] [address] 91228- 4160 Aug, [place] [address] [address]- 9151 Aug, [place] [address], [place] [address]- 2155 Aug, Diabetes E11.9 [facility] [address] [place] [id number] Aug, Falling R29.6 ; Alcohol abuse F10.10 ; Major depressive disorder, recurrent episode, unspecified severity F33.9 ; 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 I10 ; Type 2 diabetes mellitus with unspecified complications E11.8 and terminal carman 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 [place] [id number] [place] [id number] Aug, [facility] [employer] [address] [place] [id number] Aug, Alcohol abuse F10.10 ; Major depressive disorder, recurrent episode, unspecified severity F33.9 ; Generalized anxiety disorder F41.1 ; group home 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 ; Psoriatic arthritis L40.50 and Diabetes E11.9 [place] [id number] [id number] Aug, [place] [address] [place] [address] [id number] Jul, [facility] [address] [address]- 4274 Jul, [facility] [address] [place] [address] 86526- 6036 Jul, Generalized anxiety disorder F41.1 [facility] [address] [place] [address] 70985- 2057 Jul, [facility] [address] [address]- 5561 Jul, [facility] [address] [place] [address] 42129- 6437 Jul, Generalized anxiety disorder F41.1 ; Major depressive disorder, recurrent episode, unspecified severity F33.9 ; PTSD (post-traumatic stress disorder) F43.10 ; Eating disorder F50.9 and Attention-deficit hyperactivity disorder, predominantly hyperactive type F90.1 [facility] [address] [address]- 3582 Jul, [facility] [address] [place] [address] 72309- 1689 Jul, [facility] [address] [address]- 7[address] Jul, group home 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 ; Type 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 ; Urinary tract infection, site not specified N39.0 ; Sepsis, unspecified organism A41.9 and Essential hypertension I10 [facility] [id number] [id number] Jul, [facility] [address], [place] [address] Jul, [facility] [address] [place] [id number] [address]- 2123 Jul, Generalized anxiety disorder F41.1 [facility] [address] [address]- 5227 15 Jul, 2017 [facility] [address] [place] [address] 27251- 0933 Jul, Generalized anxiety disorder F41.1 [facility] [address], [place] [address]- 5732 May, Generalized anxiety disorder F41.1 ; Major depressive disorder, recurrent episode, unspecified severity F33.9 ; PTSD (post-traumatic stress disorder) F43.10 ; Eating disorder F50.9 and Attention-deficit hyperactivity disorder, predominantly hyperactive type F90.1 [facility] [address] [place] [address] 95093- 1287 May, Diabetes E11.9 [facility] [address], [place] [address] May, Acute non-recurrent maxillary sinusitis J01.00 and Diabetes E11.9 [facility] [address], [place] [address]- 3265 May, [facility] [address] [place] [address] 35902- 1358 May, [facility] [address] [address]- 4273 May, Generalized anxiety disorder F41.1 [facility] [address], [place] [address]- 9988 Apr, [facility] [address] [address]- 6628 Apr, [facility] [address], [place] [address]- 0474 Apr, [facility] [address], [place] [address]- 8749 Apr, Generalized anxiety disorder F41.1 ; Major depressive disorder, recurrent episode, unspecified severity F33.9 ; PTSD (post-traumatic stress disorder) F43.10 ; Eating disorder F50.9 and Attention-deficit hyperactivity disorder, predominantly hyperactive type F90.1 [place] [address] [place] [id number] [place] [address] 13528- 6862 Apr, Major depressive disorder, recurrent, moderate F33.1 [place] [address] [place] [id number] [place] [address] 73211- 5711 Mar, Diabetes E11.9 [place] [address] 36592- 3015 Mar, Attention-deficit hyperactivity disorder, combined type F90.2 [place] [address] [place] [id number] [place] [address] 82383- 9963 Mar, [place] [address] 14628- 3598 Mar, Diabetes E11.9 [place] [address] 15369- 3229 07 Mar, 2017 terminal carman 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 ; Psoriatic arthritis L40.50 ; Other specified 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 and 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 I10 [place] [address] [place] [id number] [place] [address] 49321- 5553 February, Back pain M54.9 [place] [address] [place] [id number] [place] [address] 78948- 4298 February, Attention-deficit hyperactivity disorder, combined type F90.2 [place] [address] [place] [id number] [place] [address] 51244- 5081 February, Major depressive disorder, recurrent episode, unspecified severity F33.9 and Generalized anxiety disorder F41.1 [place] [address] [place] [id number] [place] [address] 02408- 3914 Jan, Attention-deficit hyperactivity disorder, combined type F90.2 [place] [address] [place] [id number] [place] [address] 95720- 2800 Jan, Major depressive disorder, recurrent, moderate F33.1 ; Generalized anxiety disorder F41.1 and Attention-deficit hyperactivity disorder , combined type F90.2 [facility] [address] [place] [address] 37355- 4890 Dec, Major depressive disorder, recurrent episode, unspecified severity F33.9 ; Generalized anxiety disorder F41.1 and Attention-deficit hyperactivity disorder, predominantly hyperactive type F90.1 [facility] [address] [place] [id number] [place] [address] 41629- 6397 Dec, Major depressive disorder, recurrent episode, unspecified severity F33.9 and Generalized anxiety disorder F41.1 [facility] [address] [place] [id number] [place] [address] 66198- 6450 Dec, [place] [address] [place] [id number] [place] [address] 44797- 2609 Dec, [place] [address] [place] [id number] [place] [address] 81358- 1848 Dec, Major depressive disorder, recurrent episode, unspecified severity F33.9 and Generalized anxiety disorder F41.1 [facility] [address] [place] [id number] [place] [address] 44327- 3357 Dec, Back pain M54.9 [facility] [address] [place] [id number] [place] [address] 91561- 1634 17 Dec, 2016 Eustachian tube dysfunction, right H69.81 and Arthritis M19.90 [facility] [address] [place] [id number] [place] [address] 94719- 3367 14 Dec, 2016 [facility] [address] [place] [id number] [place] [address] 66687- 8796 Dec, [facility] [address] [place] [id number] [place] [address] 31542- 1895 07 Dec, 2016 Major depressive disorder, recurrent episode, unspecified severity F33.9 [facility] [address] [address]- 2276 Oct, [facility] [address] [place] [address] 55404 -7253 Oct, Acute non-recurrent pansinusitis J01.40 and Sore throat J02.9 [facility] [address] [place] [id number] [place] [address] 24150- 4511 Oct, Major depressive disorder, recurrent episode, unspecified severity F33.9 [place] [address] [place] [id number] [place] [address] 58309- 8650 Oct, Major depressive disorder, recurrent episode, unspecified severity F33.9 and Generalized anxiety disorder F41.1 [place] [address] [place] [id number] [place] [address] 56614- 7807 Sep, [facility] [address] [place] [id number] [place] [address] 39721- 7003 Sep, Major depressive disorder, recurrent episode, unspecified severity F33.9 [place] [address] [place] [id number] [place] [address] 63377- 6143 Sep, Major depressive disorder, recurrent episode, unspecified severity F33.9 [facility] [address] [place] [address] 02643 -8233 Sep, Sore throat J02.9 [facility] [address] [place] [address] 33408- 2277 Sep, Generalized anxiety disorder F41.1 ; Major depressive disorder, recurrent episode, unspecified severity F33.9 and Attention-deficit hyperactivity disorder, predominantly hyperactive type F90.1 [place] [address] [place] [address] 36845- 8844 08 Sep, 2016 Major depressive disorder, recurrent episode, unspecified severity F33.9 and Generalized anxiety disorder F41.1 [place] [address] [place] [address] 62472- 9243 Sep, Psoriatic arthritis L40.50 [place] [address] [place] [id number] [place] [address] 56276- 9720 02 Dec, 2016 Diabetes E11.9 ; group home 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 ; Back pain M54.9 and Encounter for immunization Z23 [facility] [address] [place] [id number] [place] [address] 97622- 9539 Aug, [facility] [address] [place] [id number] [place] [address] 21087- 1739 Aug, [facility] [address] [place] [id number] [place] [address] 91066- 3078 Jul, Major depressive disorder, recurrent episode, unspecified severity F33.9 ; Attention-deficit hyperactivity disorder, predominantly hyperactive type F90.1 and Generalized anxiety disorder F41.1 [facility] [address] [place] [id number] [place] [address] 83744- 8209 Jul, [facility] [address] [place] [id number] [place] [address] 50397- 7672 Jul, Major depressive disorder, recurrent, in partial remission F33.41 and Generalized anxiety disorder F41.1 [facility] [address] [place] [id number] [place] [address] 20740- 2539 Jul, [facility] [address] [place] [id number] [place] [address] 19146- 9484 Jul, [facility] [address] [place] [id number] [place] [address] 39974- 9286 Jul, [facility] [address] [place] [id number] [place] [address] 75857- 1546 Jul, [facility] [address] [place] [id number] [place] [address] 74895- 1380 12 Jul, 2016 Diabetes E11.9 [facility] [address] [place] [id number] [place] [address] 84074- 6097 May, [facility] [address] [place] [id number] [place] [address] 03994- 6226 May, [facility] [address] [place] [id number] [place] [address] 63005- 5611 May, [place] [address] [address]- 0269 May, Major depressive disorder, recurrent episode, unspecified severity F33.9 ; Generalized anxiety disorder F41.1 and Attention-deficit hyperactivity disorder, predominantly hyperactive type F90.1 [place] [address] [address]- 6414 May, [place] [address] [place] [id number] [place] [address] 93632- 4345 May, Diabetes E11.9 [place] [address] [place] [address] 81477- 2478 May, [place] [address] [place] [address] 09456- 8709 May, [facility] [address] [place] [id number] May, Diabetes E11.9 ; Generalized anxiety disorder F41.1 and Nausea R11.0 [place] [address] [place] [address] 95957- 4471 May, Psoriatic arthritis L40.50 and Candidiasis of female genitalia B37.3 [place] [address] [place] [address] 78339- 2061 May, [place] [address] [address]- 1965 Apr, [place] [address] [address]- 9015 Apr, [place] [address], [place] [address]- 5309 Apr, [place] [address] [place] [address] 90669- 6134 Apr, Generalized anxiety disorder F41.1 ; Major depressive disorder, recurrent episode, unspecified severity F33.9 and Attention-deficit hyperactivity disorder, predominantly hyperactive type F90.1 [place] [address] [place] [address] [address]- 8348 Apr, [facility] [address] [place] [id number] [place] [address] 60970- 5145 Apr, [facility] [address] [place] [id number] [place] [address] 69693- 8758 Apr, [facility] [address] [place] [id number] [place] [address] 66470- 9652 Apr, [facility] [address] [place] [id number] [place] [address] 23022- 3445 Apr, [facility] [address] [place] [address] [place] [address] 64598- 2226 Mar, Attention-deficit hyperactivity disorder, predominantly hyperactive type F90.1 [facility] [address] [place] [id number] [place] [address] 91900- 2300 Mar, [facility] [address] [place] [id number] [place] [address] 17372- 0718 Mar, [facility] [address] [place] [id number] [place] [address] 06495- 0241 Mar, Major depressive disorder, recurrent episode, unspecified severity F33.9 and Generalized anxiety disorder F41.1 [facility] [address] [place] [address] 99790- 7076 February, Diabetes E11.9 [facility] [address] [place] [address] 91689 -5720 February, OME (otitis media with effusion), bilateral H65.93 [facility] [address] [place] [id number] [place] [address] 41648- 1082 February, Back pain M54.9 [facility] [address] [place] [address] 49743- 0445 February, [facility] [address] [place] [address] 29597- 0605 February, Nausea R11.0 [place] [address] [place] [id number] [place] [address] 15165- 8910 February, [place] [address] [place] [address] [place] [address] 90382- 1229 February, Pre-op evaluation Z01.818 ; Type 2 diabetes mellitus with hyperglycemia E11.65 and terminal carman 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 [place] [address] [place] [address] [place] [address] 61418- 5925 February, [facility] [address] [place] [address] [id number] [place] [address] 52423 -9349 February, Right otitis externa H60.91 [place] [address] [place] [address] [place] [address] 22792- 0505 Jan, [place] [address] [place] [address] [place] [address] 76921- 5161 Jan, Psoriatic arthritis L40.50 and Arthralgia, unspecified joint M25.50 [place] [address] [place] [address] [place] [address] 12048- 3317 Jan, Major depressive disorder, recurrent episode, unspecified severity F33.9 ; Generalized anxiety disorder F41.1 and Attention-deficit hyperactivity disorder, unspecified type F90.9 [place] [address] [place] [address] [place] [address] 75976- 1811 Jan, [place] [address] [place] [id number] [place] [address] 69752- 6323 Jan, [place] [address] [place] [id number] [place] [address] 93948- 6319 Jan, Major depressive disorder, recurrent episode, unspecified severity F33.9 and Generalized anxiety disorder F41.1 [place] [address] [place] [id number] [place] [address] 44952- 8342 Jan, [place] [address] [place] [id number] [place] [address] 47639- 5128 Dec, 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 I10 and Arthritis M19.90 [facility] [address] [address]- 9981 Dec, [facility] [id number] [place] [address] 98797- 3284 Dec, [facility] [id number] [place] [address] 17887- 6183 Dec, [facility] [id number] [place] [address] 97197- 4389 Dec, [facility] [id number] [place] [address] 67605- 3842 Dec, [facility] [id number] [place] [address] 38657- 9812 Dec, Major depressive disorder, recurrent episode, unspecified severity F33.9 and Generalized anxiety disorder F41.1 [facility] [id number] [place] [address] 30829- 9925 Dec, Diabetes E11.9 ; Back pain M54.9 ; Thrush B37.0 and 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 I10 [facility] [id number] [place] [address] 78517- 3735 Dec, Major depressive disorder, recurrent episode, unspecified severity F33.9 and Generalized anxiety disorder F41.1 [facility] [id number] [place] [address] 71241- 9480 Dec, Major depressive disorder, recurrent episode, in partial or unspecified remission 296.35 ; Major depressive disorder, recurrent episode, unspecified severity F33.9 and Generalized anxiety disorder 300.02 [facility] [id number] [place] [address] 24452- 0647 Dec, [facility] [id number] [place] [address] 96958- 2017 Oct, [facility] [id number] [place] [address] 66920- 4327 Oct, [facility] [id number] [place] [address] 77278- 6143 Oct, [facility] [id number] [place] [address] 44856- 8904 Oct, [facility] [id number] [place] [address] 50145- 5282 Oct, Major depressive disorder, recurrent, moderate F33.1 and Attention-deficit hyperactivity disorder, unspecified type F90.9 [facility] [id number] [place] [address] 38095- 2860 Oct, terminal carman (current) use of opiate analgesic Z79.891 [facility] [id number] [place] [address] 92617- 8636 Oct, [facility] [address] 16781- 7000 Oct, [facility] [id number] [place] [address] 53276 -1925 Sep, URI (upper respiratory infection) J06.9 ; Psoriasis L40.9 ; Cough R05 and Tobacco abuse Z72.0 [facility] [id number] [place] [address] 28269- 6807 Sep, Major depressive disorder, recurrent episode, in partial or unspecified remission 296.35 ; Generalized anxiety disorder 300.02 and ADHD, 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 [facility] [id number] [place] [address] 00173 -6448 Sep, Acute sinusitis, unspecified J01.90 [facility] [id number] [place] [address] 79706- 5174 Sep, [facility] [id number] [place] [address] 84695- 6976 Sep, Major depressive disorder, recurrent, moderate F33.1 ; Generalized anxiety disorder F41.1 and Attention-deficit hyperactivity disorder , combined type F90.2 [facility] [address] [address]- 0257 Sep, [facility] [id number] [place] [address] 34099- 9467 Aug, [facility] [address] [address]- 4793 Aug, [facility] [id number] [place] [address] 90191- 1151 Aug, Diabetes E11.9 and Anxiety F41.9 [facility] [id number] [place] [address] 60381- 7416 Aug, Major depressive disorder, recurrent episode, unspecified severity F33.9 and Generalized anxiety disorder F41.1 [facility] [id number] [place] [address] 29646- 8221 Aug, [facility] [id number] [place] [address] 68256- 8024 Jul, [facility] [id number] [place] [address] 72315- 8267 Jul, [facility] [id number] [place] [address] 13007- 2629 Jul, [facility] [id number] [place] [address] 88217- 6507 Jul, [facility] [id number] [place] [address] 40583- 6101 Jul, Major depressive disorder, recurrent episode, in partial or unspecified remission 296.35 ; Generalized anxiety disorder 300.02 and ADHD, 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 [facility] [address] [address]- 3310 10 Jul, 2015 Major depressive disorder, recurrent episode, in partial or unspecified remission 296.35 ; Generalized anxiety disorder 300.02 and ADHD, 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 [facility] [address] [address]- 2766 Jul, [facility] [address] [address]- 4205 May, [facility] [id number] [place] [address] 77412- 1085 May, [facility] [id number] [place] [address] 46019- 0003 May, DM w/o complication type II 250.00 ; Dyspepsia 536.8 and PAD (peripheral artery disease) 443.9 [facility] [id number] [place] [address] 99342- 4627 May, Major depressive disorder, recurrent episode, moderate 296.32 and Generalized anxiety disorder 300.02 [facility] [id number] [place] [address] 18631- 5681 May, [facility] [id number] [place] [address] 04273- 7320 May, Major depressive disorder, recurrent episode, moderate 296.32 and Generalized anxiety disorder 300.02 [facility] [id number] [place] [address] 64140- 9264 May, [facility] [id number] [place] [address] 76264- 6135 Apr, [facility] [id number] [place] [address] 73886- 8860 Apr, Major depressive disorder, recurrent episode, moderate 296.32 and Generalized anxiety disorder 300.02 [facility] [address] [address]- 0076 Apr, [facility] [id number] [place] [address] 54866- 2910 Apr, [facility] [address] [address]- 2387 Apr, Generalized anxiety disorder 300.02 ; ADHD, 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 and Depression, major, recurrent, moderate 296.32 [facility] [id number] [place] [address] 21981- 4392 Apr, Major depressive disorder, recurrent episode, moderate 296.32 and Generalized anxiety disorder 300.02 [facility] [id number] [place] [address] 21809- 2380 Apr, [facility] [id number] [place] [address] 17266- 6517 Apr, [facility] [id number] [place] [address] 89892- 7121 Mar, [facility] [id number] [place] [address] 78587- 9707 Mar, Major depressive disorder, recurrent episode, moderate 296.32 and Generalized anxiety disorder 300.02 [facility] [id number] [place] [address] 70538- 2635 Mar, ADHD, 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 ; Major depressive disorder, recurrent episode, severe, without mention of psychotic behavior 296.33 and Generalized anxiety disorder 300.02 [facility] [id number] [place] [address] 94162- 6392 February, Major depressive disorder, recurrent episode, moderate 296.32 and Generalized anxiety disorder 300.02 [facility] [id number] [place] [address] 96553- 9969 February, [facility] [id number] [place] [address] 90264- 9412 February, [facility] [id number] [place] [address] 44145- 2711 February, [facility] [id number] [place] [address] 86857- 7124 February, [facility] [id number] [place] [address] 88904- 6738 February, DM w/o complication type II 250.00 ; Impacted cerumen 380.4 ; Essential hypertension, benign 401.1 and Irritable colon 564.1 [facility] [address] [id number] [place] [address]- 2566 February, [facility] [address] [id number] [place] [address]- 9526 February, [facility] [address] [facility] [id number] [place] [address]- 2636 Jan, [facility] [address] [id number] [place] [address] 2546 Dec, [facility] [address] [id number] [place] [address]- 4857 Dec, [facility] [address] [facility] [id number] [place] [address]- 4776 Dec, [facility] [address] [facility] [id number] [place] [address]- 5651 Dec, [facility] [address] [facility] [id number] [place] [address]- 5789 Dec, [facility] [address] [facility] [id number] [place] [address]- 4073 Dec, [facility] [address] [facility] [id number] [place] [address]- 0928 Dec, [facility] [address] [facility] [id number] [place] [address]- 8611 Dec, [facility] [address] [facility] [id number] [place] [address]- 5490 Dec, [facility] [address] [id number] [place] [address]- 6254 Dec, [facility] [address] [facility] [id number] [place]- 5784 Dec, [facility] [address] [facility] [id number] [place] 9450 Dec, [facility] [place] [facility] [address] [id number] [place] [address]- 3870 Dec, [facility] [place] [facility] [address] [id number] [place] [address]- 4853 Dec, [facility] [place] [facility] [address] [id number] [place] [address]- 7564 Dec, [facility] [place] [facility] [address] [id number] [place] [address]- 5854 Dec, [facility] [place] [facility] [address] [id number] [place] [address]- 0983 Oct, [facility] [place] [facility] [address] [id number] [place] [address]- 3062 Oct, [facility] [place] [facility] [address] [id number] [place] [address]- 9455 Oct, [facility] [place] [facility] [address] [id number] [place] [address]- 9709 Oct, [facility] [place] [facility] [address] [id number] [place] [address]- 6893 Oct, [facility] [place] [facility] [address] [id number] [place] [address]- 9534 Oct, [facility] [place] [facility] [address] [id number] [place] [address]- 9905 Oct, [facility] [place] [facility] [address] [id number] [place] [address]- 6985 Oct, [facility] [place] [facility] [address] [id number] [place] [address]- 8396 Oct, [facility] [place] [facility] [address] [id number] [place] [address]- 8887 Oct, [facility] [place] [facility] [address] [id number] [place] [address]- 8916 Oct, [facility] [place] [facility] [address] [id number] [place] [address]- 1178 Sep, [facility] [place] [facility] [address] [id number] [place] [address]- 2571 Sep, [facility] [place] [facility] [address] [id number] [place] 5423 Sep, [facility] [place] [facility] [address] [id number] [place] [address]- 9286 Sep, [facility] [place] [facility] [address] [id number] [place] [address]- 8703 Sep, [facility] [place] [facility] [address] [id number] [place] [address]- 8955 Sep, [facility] [place] [facility] [address] [id number] [place] [address]- 2106 Sep, [facility] [place] [facility] [address] [id number] [place] [address]- 5784 Sep, [facility] [place] [facility] [address] [id number] [place] [address]- 7439 Aug, [facility] [place] [facility] [address] [id number] [place] [address]- 6450 Aug, [facility] [place] [facility] [address] [id number] [place] [address]- 6748 Aug, [facility] [place] [facility] [address] [id number] [address]- 9761 Aug, [facility] [place] [facility] [address] [id number] [address]- 6946 Aug, [facility] [place] [facility] [address] [id number] [place] [address]- 3699 Aug, [facility] [place] [facility] [address] [id number] [place] [address]- 5961 Aug, [facility] [place] [facility] [address] [id number] [place] [address]- 3877 Aug, [facility] [place] [facility] [address] [id number] [place] [address]- 4730 Aug, [facility] [place] [facility] [address] [id number] [place] [address]- 4865 Aug, [facility] [place] [facility] [address] [id number] [place] [address]- 6459 Aug, [facility] [place] [facility] [address] [id number] [place] [address]- 3714 Aug, [facility] [place] [facility] [address] [id number] [place] [address]- 5691 Aug, [facility] [place] [facility] [address] [id number] [place] [address]- 1592 Aug, [facility] [place] [facility] [address] [id number] [place] [address]- 7658 Jul, [facility] [place] [facility] [address] [id number] [place] [address]- 5535 Jul, [facility] [place] [facility] [address] [id number] [place] [address]- 7839 Jul, [facility] [place] [facility] [address] [id number] [place] [address]- 8958 Jul, [facility] [place] [facility] [address] [facility] [id number] [place] [address]- 5798 Jul, [facility] [place] [facility] [address] [id number] [place] [address]- 4806 Jul, [facility] [place] [facility] [address] [id number] [place] [address]- 4865 Jul, [facility] [place] [facility] [address] [id number] [place] [address]- 5536 Jul, [facility] [place] [facility] [address] [id number] [place] [address]- 3777 Jul, [facility] [place] [facility] [address] [id number] [place] [address]- 9204 Jul, [facility] [place] [facility] [address] [id number] [place] [address]- 5371 Jul, [facility] [place] [facility] [address] [id number] [place] [address]- 3863 Jul, [facility] [place] [facility] [address] [id number] [place] [address]- 4364 Jul, [facility] [place] [facility] [address] [id number] [place] [address]- 8083 Jul, [facility] [place] [facility] [address] [id number] [place] [address]- 1637 May, [facility] [place] [facility] [address] [id number] [place] [address]- 3036 May, [facility] [place] [facility] [address] [id number] [place] [address]- 0816 May, [facility] [place] [facility] [address] [id number] [place] [address]- 1980 May, [facility] [place] [facility] [address] [id number] [place] [address]- 5844 May, [facility] [place] [facility] [address] [id number] [place] [address]- 6183 May, [facility] [place] [facility] [address] [id number] [place] [address]- 4315 May, [facility] [place] [facility] [address] [id number] [place] [address]- 8993 May, [facility] [place] [facility] [address] [id number] [place] [address]- 4987 May, [facility] [place] [facility] [address] [id number] [place] [address]- 3869 May, [facility] [place] [facility] [address] [id number] [place] [address]- 9374 May, [facility] [place] [facility] [address] [id number] [place] [address]- 8469 May, [facility] [place] [facility] [address] [id number] [place] [address]- 4345 Apr, [facility] [place] [facility] [address] [id number] [place] [address]- 6296 Apr, [facility] [place] [facility] [address] [id number] [place] [address]- 5169 Apr, [facility] [place] [facility] [address] [id number] [place] [address]- 1303 Apr, [facility] [place] [facility] [address] [id number] [place] [address]- 4057 Apr, [facility] [place] [facility] [address] [id number] [place] [address]- 8081 Apr, [facility] [place] [facility] [address] [id number] [place] [address]- 3683 Mar, [facility] [place] [facility] [address] [id number] [place] [address]- 1852 Mar, [facility] [place] [facility] [address] [id number] [place] [address]- 4569 Mar, [facility] [place] [facility] [address] [id number] [place] [address]- 1102 Mar, [facility] [place] [facility] [address] [id number] [place] [address]- 1061 Mar, [facility] [place] [facility] [address] [id number] [place] [address]- 8626 Mar, [facility] [place] [facility] [address] [id number] [place] [address]- 9967 Mar, [facility] [place] [facility] [address] [id number] [place] [address]- 0527 Mar, [facility] [place] [facility] [address] [id number] [place] [address]- 1892 Mar, [facility] [place] [facility] [address] [id number] [place] [address]- 6595 Mar, [facility] [place] [facility] [address] [id number] [place] [address]- 4265 Mar, [facility] [place] [facility] [address] [id number] [place] [address]- 2541 Mar, [facility] [place] [facility] [address] [id number] [place] [address]- 1516 Mar, [facility] [place] [facility] [address] [id number] [place] [address]- 1095 February, [facility] [place] [facility] [address] [id number] [place] [address]- 3324 February, [facility] [place] [facility] [address] [id number] [place] [address]- 1059 February, [facility] [place] [facility] [address] [id number] [place] [address]- 4230 February, [facility] [place] [facility] [address] [id number] [place] [address]- 1389 February, [facility] [place] [facility] [address] [id number] [place] [address]- 3799 February, [facility] [place] [facility] [address] [id number] [place] [address]- 5294 February, [facility] [place] [facility] [address] [id number] [place] [address]- 3720 February, [facility] [place] [facility] [address] [id number] [place] [address]- 2975 February, [facility] [place] [facility] [address] [id number] [place] [address]- 3671 February, [facility] [place] [facility] [address] [id number] [place] 6952 February, [facility] [place] [facility] [address] [id number] [place] [address]- 3477 February, [facility] [place] [facility] [address] [id number] [place] [address]- 8384 February, [facility] [place] [facility] [address] [id number] [place] [address] February, [facility] [place] [facility] [address] [id number] [place] [address] Jan, [facility] [place] [facility] [address] [id number] [place] [address] Jan, [facility] [place] [facility] [address] [id number] [place] [address] Jan, [facility] [place] [facility] [address] [id number] [place] [address] Jan, [facility] [place] [facility] [address] [id number] [place] [address] Jan, [facility] [place] [facility] [address] [id number] [place] [address] Jan, [facility] [place] [facility] [address] [id number] [place] [address] Jan, [facility] [place] [facility] [address] [id number] [place] [address] Jan, [facility] [place] [facility] [address] [id number] [place] [address] Jan, [facility] [place] [facility] [address] [id number] [place] [address] Dec, [facility] [place] [facility] [address] [id number] [place] [address] Dec, [facility] [place] [facility] [address] [id number] [place] [address] Dec, [facility] [place] [facility] [address] [id number] [place] [address]- [address] Dec, [facility] [place] [facility] [address] [id number] [place] [address]- [address]99 Dec, [facility] [place] [facility] [address] [id number] [place] [address]- [address]97 Dec, [facility] [place] [facility] [address] [id number] [place] [address] Dec, [facility] [place] [facility] [address] [id number] [place] [address]- [address] Dec, [facility] [place] [facility] [address] [id number] [place] [address]- [address] Dec, [facility] [place] [facility] [address] [id number] [place] [address]- [address] Dec, [facility] [place] [facility] [address] [id number] [place] [address]- [address] 14 Dec, 2013 [facility] [place] [facility] [address] [id number] [place] [address]- [address] 13 Dec, 2013 [facility] [place] [facility] [address] [id number] [place] [address] Dec, [facility] [place] [facility] [address] [id number] [place] [address]- [address] 10 Dec, 2013 [facility] [place] [facility] [address] [id number] [place] [address] Dec, [facility] [place] [facility] [address] [id number] [place] [address] Dec, [facility] [place] [facility] [address] [id number] [place] [address] Dec, [facility] [place] [facility] [address] [id number] [place] [address] Oct, [facility] [place] [facility] [address] [id number] [place] [address] Oct, [facility] [place] [facility] [address] [id number] [place] [address]- [address] Oct, [facility] [address] [id number] [place] [address]- [address] Oct, [facility] [place] [facility] [address] [id number] [place] [address] Oct, [facility] [place] [facility] [address] [id number] [place] [address] Oct, [facility] [place] [facility] [address] [id number] [place] [address] Oct, [facility] [place] [facility] [address] [id number] [place] [address]- [address] Oct, [facility] [place] [facility] [address] [id number] [place] [address]- 74[address] Oct, [facility] [place] [facility] [address] [id number] [place] [address] Oct, [facility] [place] [facility] [address] [id number] [place] [address] Oct, [facility] [place] [facility] [address] [id number] [place] [address] Oct, [facility] [place] [facility] [address] [id number] [place] [address] Oct, [facility] [place] [facility] [address] [id number] [place] [address] Oct, [facility] [place] [facility] [address] [id number] [address] Sep, [facility] [place] [facility] [address] [id number] [place] [address]- [address] Sep, [facility] [place] [facility] [address] [id number] [place] [address]- [address] Sep, [facility] [place] [facility] [address] [id number] [place] [address]- [address] Sep, [facility] [place] [facility] [address] [id number] [place] [address] 27 Sep, 2013 [facility] [address] [id number] [place] [address]- [address] 27 Sep, 2013 [facility] [place] [facility] [address] [id number] [place] [address]- [address] 27 Sep, 2013 [facility] [facility] [address] [id number] [place] [address] 27 Sep, 2013 [facility] [place] [facility] [address] [id number] [place] [address] 27 Sep, 2013 [facility] [address] [id number] [place] [address] 1720 27 Sep, 2013 [facility] [place] [facility] [address] [id number] [place] [address] 0558 16 Sep, 2013 [facility] [address] [id number] [place] [address]- 8785 16 Sep, 2013 [facility] [place] [facility] [address] [id number] [place] [address] 3890 13 Sep, 2013 [facility] [place] [facility] [address] [id number] [place] [address]- 7774 13 Sep, 2013 [facility] [place] [facility] [address] [facility] [id number] [place] [address] 3800 10 Sep, 2013 [facility] [place] [facility] [address] [id number] [place] [address] 8951 10 Sep, 2013 [facility] [place] [facility] [address] [id number] [place] [address]- 2743 02 Sep, 2013 [facility] [place] [facility] [address] [id number] [place] [address] 9236 02 Sep, 2013 [facility] [place] [facility] [address] [id number] [place] [address] 15 Aug, 2013 [facility] [place] [facility] [address] [id number] [place] [address]- 6329 15 Aug, 2013 [facility] [place] [facility] [address] [id number] [place] [address]- 7812 16 Jul, 2012 [facility] [place] [facility] [address] [id number] [place] [address]- 4780 16 Jul, 2012 [facility] [place] [facility] [address] [id number] [place] [address]- 1310 14 Jul, 2012 [facility] [place] [facility] [address] [id number] [place] [address]- 8169 14 Jul, 2012 [facility] [place] [facility] [address] [id number] [place] [address]- 8402 08 Jul, 2013 [facility] [place] [facility] [address] [id number] [place] [address]- 7554 20 Jul, 2012 [facility] [place] [facility] [address] [id number] [place] [address]- 3038 19 Jul, 2012 [facility] [place] [facility] [address] [id number] [place] [address]- 2548 13 Jul, 2012 [facility] [place] [facility] [address] [id number] [place] [address]- 1731 08 Jul, 2012 [facility] [place] [facility] [address] [id number] [place] [address]- 3859 06 Jul, 2012 [facility] [place] [facility] [address] [id number] [place] [address] 2543 06 Sep, 2012 [facility] [place] [facility] [address] [id number] [place] [address]- 2548 06 Jul, 2012 [facility] [place] [facility] [address] [id number] [place] [address]- 1977 03 Jul, 2012 [facility] [place] [facility] [address] [id number] [place] [address]- 6004 29 May, 2013 [facility] [place] [facility] [address] [id number] [place] [address]- 2200 26 May, 2012 [facility] [place] [facility] [address] [id number] [place] [address]- 7822 May, [facility] [place] [facility] [address] [id number] [place] [address]- 9459 May, [facility] [place] [facility] [address] [id number] [place] [address]- 7383 Apr, [facility] [place] [facility] [address] [id number] [place] [address]- 2872 Apr, [facility] [place] [facility] [address] [id number] [place] [address]- 2387 Apr, [facility] [place] [facility] [address] [id number] [place] [address]- 9824 Mar, [facility] [place] [facility] [address] [id number] [place] [address]- 9333 Mar, [facility] [place] [facility] [address] [id number] [place] [address]- 7801 Mar, [facility] [place] [facility] [address] [id number] [place] [address]- 0727 Mar, [facility] [place] [facility] [address] [id number] [place] [address]- 3736 February, [facility] [place] [facility] [address] [id number] [place] [address]- 5252 February, [facility] [place] [facility] [address] [id number] [place] [address]- 4970 Jan, [facility] [place] [facility] [address] [id number] [address]94 Dec, [facility] [place] [facility] [address] [id number] [place] [address]- 1994 Dec, [facility] [place] [facility] [address] [id number] [place] [address]- 1347 Dec, [facility] [place] [facility] [address] [id number] [place] [address]- 2545 Dec, [facility] [place] [facility] [address] [id number] [place] [address] 2549 28 Dec, 2012 [facility] [address] [id number] [place] [address] 2546 27 Dec, 2012 [facility] [place] [facility] [address] [id number] [place] [address] 2546 26 Dec, 2012 [facility] [place] [facility] [address] [id number] [place] [address] 2546 25 Dec, 2012 [facility] [place] [facility] [address] [id number] [place] [address] 2540 22 Dec, 2012 [facility] [address] [id number] [place] [address]- 6296 15 Dec, 2012 [facility] [place] [facility] [address] [id number] [place] [address]- 0571 14 Dec, 2012 [facility] [place] [facility] [address] [id number] [place] [address]- 3674 31 Oct, 2012 [facility] [address] [id number] [place] [address]- 6748 Oct, [facility] [place] [facility] [address] [id number] [place] [address]- 6442 Oct, [facility] [address] [id number] [place] [address]- 7554 Oct, [facility] [address] [id number] [place] [address]- 2542 Sep, [facility] [place] [facility] [address] [id number] [place] [address] 2546 Sep, [facility] [place] [facility] [address] [id number] [place] [address] 2546 Sep, [facility] [place] [facility] [address] [id number] [place] [address] 2542 12 Sep, 2012 [facility] [place] [facility] [address] [id number] [place] [address] 2542 Sep, [facility] [place] [facility] [address] [id number] [place] [address]- 1553 Sep, [facility] [place] [facility] [address] [id number], [place] [address] 0890 Aug, [facility] [place] [facility] [address] [facility] [id number] [place] [address] 2540 Aug, [facility] [place] [facility] [address] [id number], [place] [address] 3593 Aug, [facility] [place] [facility] [address] [id number] [place] [address]- 6997 Aug, [facility] [place] [facility] [address] [facility] [id number] [address]- 2334 Aug, [facility] [place] [facility] [address] [facility] [id number] [place] [address]- 5380 Aug, [facility] [place] [facility] [address] [id number], [place] [address]- 2741 Jul, [facility] [place] [facility] [address] [id number], [place] [address]- 2082 Jul, [facility] [place] [facility] [address] [facility] [id number], [place] [address]- 5736 Jul, [facility] [place] [facility] [address] [facility] [id number], [place] [address]- 8810 16 Jul, 2012 [facility] [place] [facility] [address] [id number], [place] [address] 2547 Jul, [facility] [place] [facility] [address] [id number], [place] [address] 2541 Jul, [facility] [place] [facility] [address] [facility] [id number], [place] [address]- 9990 Jul, [facility] [place] [facility] [address] [facility] [id number], [place] [address] 2541 Jul, [facility] [place] [facility] [address] [id number] [place] [address]- 0814 20 Jul, 2012 [facility] [place] [facility] [address] [id number] [place] [address] 2546 Jul, [facility] [place] [facility] [address] [id number] [place] [address] 2546 Jul, [facility] [place] [facility] [address] [id number] [place] [address]- 1146 May, [facility] [place] [facility] [address] [id number] [place] [address] 2544 May, [facility] [place] [facility] [address] [id number] [place] [address]- 8778 May, [facility] [place] [facility] [address] [id number] [place] [address]- 3179 May, [facility] [place] [facility] [address] [id number] [place] [address]- 5655 Apr, [facility] [place] [facility] [address] [id number] [place] [address]- 6507 Apr, [facility] [place] [facility] [address] [id number] [place] [address]- 1369 Apr, [facility] [place] [facility] [address] [id number] [place] [address]- 6137 Apr, [facility] [place] [facility] [address] [id number] [place] [address] 2546 Apr, [facility] [place] [facility] [address] [id number] [place] [address]- 2540 Apr, [facility] [place] [facility] [address] [id number] [place] [address] 2545 Apr, [facility] [place] [facility] [address] [id number] [place] [address]- 2546 Apr, [facility] [place] [facility] [address] [id number] [place] [address]- 6742 Mar, [facility] [place] [facility] [address] [id number] [place] [address]- 9777 27 Mar, 2012 [facility] [place] [facility] [address] [id number] [place] [address]- 6841 20 Mar, 2012 [facility] [place] [facility] [address] [id number] [place] [address]- 7061 15 Mar, 2012 [facility] [place] [facility] [address] [id number] [place] [address]- 2281 14 Mar, 2012 [facility] [place] [facility] [address] [id number] [place] [address]- 9501 12 Mar, 2012 [facility] [place] [facility] [address] [id number] [place] [address]- 3010 Mar, [facility] [place] [facility] [address] [id number] [place] [address]- 0105 Mar, [facility] [place] [facility] [address] [id number] [place] [address]- 2072 08 Mar, 2012 [facility] [place] [facility] [address] [id number] [place] [address]- 0080 February, [facility] [place] [facility] [address] [id number] [place] [address]- 3848 February, [facility] [place] [facility] [address] [id number] [place] [address]- 0186 February, [facility] [place] [facility] [address] [id number] [place] [address]- 0356 February, [facility] [place] [facility] [address] [id number] [place] [address]- 8863 13 Jan, 2012 [facility] [place] [facility] [address] [id number] [place] [address]- 8583 03 Jan, 2012 [facility] [place] [facility] [address] [id number] [place] [address]- 4004 28 Dec, 2011 [facility] [place] [facility] [address] [id number] [place] [address]- 1915 15 Dec, 2011 [facility] [address] [id number] [place] [address]- 3796 14 Dec, 2011 [facility] [place] [facility] [address] [id number] [place] [address]- 1116 07 Dec, 2011 [facility] [place] [facility] [address] [id number] [place] [address]- 1696 28 Dec, 2011 [facility] [place] [facility] [address] [id number] [place] [address]- 4802 27 Dec, 2011 [facility] [place] [facility] [address] [id number] [place] [address]- 6256 Dec, [facility] [place] [facility] [address] [id number] [place] [address]- 9336 Dec, [facility] [place] [facility] [address] [id number] [place] [address]- 3707 07 Dec, 2011 [facility] [place] [facility] [address] [id number] [place] [address]- 9980 Dec, [facility] [place] [facility] [address] [id number] [place] [address]- 4292 Dec, [facility] [place] [facility] [address] [id number] [place] [address]- 0522 Dec, [facility] [place] [facility] [address] [id number] [place] [address]- 1992 Oct, [facility] [place] [facility] [address] [id number] [place] [address]- 7059 Oct, [facility] [place] [facility] [address] [id number] [place] [address]- 4918 Oct, [facility] [place] [facility] [address] [id number] [place] [address]- 8805 Oct, [facility] [place] [facility] [address] [id number] [place] [address]- 9155 Oct, [facility] [place] [facility] [address] [id number] [place] [address]- 1325 Oct, [facility] [address] [id number] [place] [address]- 2750 Oct, [facility] [address] [id number] [place] [address]- 8794 Oct, [facility] [address] [id number] [place] [address]- 1117 Sep, [facility] [address] [id number] [place] [address] Sep, [facility] [place] [facility] [address] [id number] [place] [address]- 5241 Sep, [facility] [address] [id number] [place] [address]- 9354 Aug, [facility] [address] [id number] [place] [address]- 6088 Aug, [facility] [address] [id number] [place] [address]- 2905 Aug, [facility] [address] [id number], [place] [address]- 7863 Aug, [facility] [place] [facility] [address] [id number] [place] [address]- 1490 Aug, [facility] [address] [id number], [place] [address]- 0947 Jul, [facility] [place] [facility] [address] [id number] [place] [address]- 6649 Jul, [facility] [place] [facility] [address] [id number], [place] [address]- 6382 May, [facility] [place] [facility] [address] [id number], [place] [address]- 8517 Dec, [facility] [place] [facility] [address] [id number], [place] [address]- 3846 Oct, [facility] [address] [facility] [id number], [place] [address]- 2232 Sep, [facility] [address] [facility] [id number], [place] [address]- 3997 Sep, [facility] [address] [facility] [id number] [place] [address]- 3297 Sep, IMMUNIZATIONS No Known Immunizations SOCIAL HISTORY Never Assessed REASON FOR VISIT Controlled Med Refill PLAN OF CARE VITAL SIGNS MEDICATIONS Medication Instructions Dosage Frequency Start Date End Date Duration Status Tramadol HCl 50 mg Orally every 6 hrs 1 tablet as needed 6h Active RESULTS No Results PROCEDURES No Known [...] veinous reflux Surgical History Left Knee SOA-Dr. Melendrez-[facility] 05/19/16 Surgical History Colonoscopy- Dr Castanon 01/26/2017 Hospitalization History surgeries Hospitalization History Left Knee SOA--Dr. Melendrez--[facility] Hospitalization History Septic shock, UTI-[facility] 07/27/17 Hospitalization History Multiple falls, hyperglycemia, sepsis 07/2017 Hospitalization History Alcoholism, depression, DM, Falls-[facility] 08/23/17 Hospitalization History COPD exacerbation-[facility] 11/25/17 Hospitalization History COPD exacerbation-[facility] 11/28/17
--- OUTSIDE RECORDS SUMMARY | 2018-05-10 03:37 | XMS REPORT ---
Author Author ABEL MELENDEZ [facility] Address [address] [place] [address] Care Team Providers Care Retail Manager In Training Name Role Phone ABEL MELENDEZ Unavailable PROBLEMS Type Condition ICD9-CM Code PBO20-VA Code Onset Dates Condition Status SNOMED Code Problem Generalized anxiety disorder F41.1 Active 50226988 Problem Diabetes E11.9 Active 63266342 Problem Psoriasis L40.9 Active 2855000 Problem Tobacco abuse Z72.0 Active 09158055 Problem 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 I10 Active 06991440 Problem Back pain M54.9 Active 755845566 Problem Arthritis M19.90 Active 7784523 Problem alf 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 Active 804575154 Problem Psoriatic arthritis L40.50 Active 013740613 Problem Psychophysiological insomnia F51.04 Active 27930730 Problem Other specified 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 Active 072703866 Problem Obesity (BMI 30-39.9) E66.9 Active 635525020 Problem Major depressive disorder, recurrent, moderate F33.1 Active 63178412 Problem Essential hypertension I10 Active 73906811 Problem Type 2 diabetes mellitus with hyperglycemia E11.65 Active 087383779023907 Problem Alcoholism F10.20 Active 6726219 Problem Frequent falls R29.6 Active 528204423 Problem Benzodiazepine abuse F13.10 Active 555161917 Problem PTSD (post-traumatic stress disorder) F43.10 Active 45976410 Problem Eating disorder F50.9 Active 23446028 Problem Attention-deficit hyperactivity disorder, combined type F90.2 Active 67407171 Problem COPD exacerbation J44.1 Active 705185854 Problem Anxiety F41.9 Active 87562934 Problem Decubitus ulcer of left buttock, stage 2 L89.322 Active 157988444 Problem BMI 40.0-44.9, adult Z68.41 Active 366589128 Problem Alcohol abuse F10.10 Active 42649091 Problem Pneumonia due to methicillin resistant Staphylococcus aureus, unspecified laterality, unspecified part of lung J15.212 Active 481833680599988 Problem Type 2 diabetes mellitus with unspecified complications E11.8 Active 14194220 Problem Attention-deficit hyperactivity disorder, predominantly hyperactive type F90.1 Active 421924595 Problem Type 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 Active 17043787 Problem Ulcer of right foot, unspecified ulcer stage L97.519 Active 60148932 Problem Attention deficit R41.840 Active 20722294 Problem Mental disorder, not otherwise specified F99 Active 96633017 Problem Insomnia due to other mental disorder F51.05 Active 45041755 ALLERGIES Substance Reaction Event Type Date Status Methylphenidate twitching Drug Allergy Aug, Active ENCOUNTERS Encounter Location Date Diagnosis [facility], [place] [id number] [place] [address] 47402- 4070 Mar, [facility] [place] [id number] [place] [address] 42914- 8049 Mar, [facility] [place] [id number] [place] [address] 71650- 5801 February, Yeast infection B37.9 [facility] [place] [id number] [place] [address] 73942- 8353 February, [facility] [place] [id number] [place] [address] 68459- 3259 Jan, [facility] [place] [id number] [place] [address] 26811- 1978 Dec, Major depressive disorder, recurrent episode, unspecified severity F33.9 ; Generalized anxiety disorder F41.1 and Eating disorder F50.9 [facility] [place] [id number] [address] 4900 Dec, [facility] [place] [id number] [place] [address] 21532- 9470 Dec, [facility] [place] [id number] [place] [address] 76372- 5603 Dec, [facility] [place] [id number] [place] [address] 97051- 7357 Dec, Increased urinary frequency R35.0 ; Frequent falls R29.6 ; Decubitus ulcer of left buttock, stage 2 L89.322 ; Benzodiazepine abuse F13.10 ; BMI 40.0-44.9, adult Z68.41 and Yeast infection B37.9 [facility] [place] [address] [place] [address] 41301- 5244 Dec, [place] [address] 96774- 9536 Dec, [place] [id number] [place] [address] 94585- 9344 Dec, Increased urinary frequency R35.0 [place] [id number] [place] [address] 58988- 0948 Dec, Increased urinary frequency R35.0 [place] [id number] [place] [address] 61963- 1446 Dec, Generalized anxiety disorder F41.1 ; Major depressive disorder, recurrent, moderate F33.1 and Psychophysiological insomnia F51.04 [place] [id number] [place] [address] 29047- 1237 Dec, BMI 40.0-44.9, adult Z68.41 ; Type 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 ; Pneumonia due to methicillin resistant Staphylococcus aureus, unspecified laterality, unspecified part of lung J15.212 and COPD exacerbation J44.1 [facility] [address] [place] [address] 99713 -3302 Dec, [facility] [id number] [place] [address] [id number] Dec, [facility] [address] [id number] Oct, [facility] [id number] [place] [address] 86549 -5206 Oct, Frequency of urination R35.0 ; Bronchitis J40 and BMI 40.0- 44.9, adult Z68.41 [facility] [id number] [place] [address] [phone] Oct, [place] [id number] [place] [address] 25381- 6130 Oct, [place] [id number] [place] [address] 50822- 0796 Oct, BMI 40.0-44.9, adult Z68.41 ; Type 2 diabetes mellitus with hyperglycemia E11.65 ; Essential hypertension I10 ; Vaginal yeast infection B37.3 ; Anxiety F41.9 and Alcoholism F10.20 [place] [id number] [place] [address] 84542- 7148 Oct, [place] [id number] [place] [address] 13635- 9825 Oct, [place] [id number] [place] [address] 50774- 4124 Sep, [place] [id number] [place] [address] 16003- 3943 Sep, Major depressive disorder, recurrent episode, unspecified severity F33.9 ; Generalized anxiety disorder F41.1 and Eating disorder F50.9 [place] [address] [place] [address] 36452- 3110 Sep, Major depressive disorder, recurrent, moderate F33.1 ; Type 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 ; Alcohol abuse F10.10 ; Obesity (BMI 30-39.9) E66.9 and Psychophysiological insomnia F51.04 [place] [address] [place] [address] 90849- 7602 06 Sep, 2017 Diabetes E11.9 and Generalized anxiety disorder F41.1 [place] [address] [place] [address] 53238- 6294 05 Sep, 2017 Major depressive disorder, recurrent episode, unspecified severity F33.9 ; Generalized anxiety disorder F41.1 and Eating disorder F50.9 [place] [address] [place] [address] 52786- 9525 Sep, [place] [id number] [place] [address] 21637- 9604 Aug, [place] [id number] [place] [address] 86228- 4007 Aug, Insomnia due to other mental disorder F51.05 ; Mental disorder, not otherwise specified F99 ; Attention deficit R41.840 ; Ulcer of right foot, unspecified ulcer stage L97.519 ; Cough R05 ; Diabetes E11.9 ; Sore in mouth K13.79 ; Generalized anxiety disorder F41.1 ; Major depressive disorder , recurrent episode, unspecified severity F33.9 and BMI 40.0-44.9, adult Z68.41 [place] [id number] [place] [address] 09117- 0607 Aug, [place] [id number] [place] [address] 26271- 2841 Aug, [place] [id number] [place] [address] 83212- 7800 Aug, [place] [id number] [place] [address] 96181- 7579 Aug, [place] [id number] [place] [address] 99760- 1892 Aug, Diabetes E11.9 [facility] [address] [facility] [place] [id number] Aug, Falling R29.6 ; Alcohol abuse F10.10 ; Major depressive disorder, recurrent episode, unspecified severity F33.9 ; 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 I10 ; Type 2 diabetes mellitus with unspecified complications E11.8 and alf 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 [place] [id number] [place] [address] [phone] Aug, [facility] [address] [place] [id number] Nov, 2017 Alcohol abuse F10.10 ; Major depressive disorder, recurrent episode, unspecified severity F33.9 ; Generalized anxiety disorder F41.1 ; 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 ; Psoriatic arthritis L40.50 and Diabetes E11.9 [facility] [id number] [place] [address] [id number] Aug, [facility] [id number] [place] [address] [phone] Jul, [place] [id number] [place] [address] 46975- 3221 Jul, [place] [address] [place] [address] 48831- 1713 Jul, Generalized anxiety disorder F41.1 [place] [address] [place] [address] 53376- 8230 Jul, [place] [id number] [place] [address] 34111- 8156 Jul, [facility], [place] [address] [place] [address] 32580- 0788 Jul, Generalized anxiety disorder F41.1 ; Major depressive disorder, recurrent episode, unspecified severity F33.9 ; PTSD (post-traumatic stress disorder) F43.10 ; Eating disorder F50.9 and Attention-deficit hyperactivity disorder, predominantly hyperactive type F90.1 [facility], [place] [address] [address]- 6113 Jul, [facility] [place] [address] [place] [address] 27761- 7677 Jul, [facility] [place] [address] [place] [address] 10415- 1061 Jul, 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 ; Type 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 ; Urinary tract infection, site not specified N39.0 ; Sepsis, unspecified organism A41.9 and Essential hypertension I10 [facility] [id number] [place] [address] [id number] Jul, [facility] [address], [place] [address] -2410 Jul, [facility] [place] [id number] [place] [address] 76780- 8257 Jul, Generalized anxiety disorder F41.1 [facility], [place] [id number] [place] [address] 63770- 1743 15 Jul, 2017 [facility] [place] [id number] [place] [address] 33320- 3378 Jul, Generalized anxiety disorder F41.1 [facility], [place] [id number] [place] [address] 06417- 3236 May, Generalized anxiety disorder F41.1 ; Major depressive disorder, recurrent episode, unspecified severity F33.9 ; PTSD (post-traumatic stress disorder) F43.10 ; Eating disorder F50.9 and Attention-deficit hyperactivity disorder, predominantly hyperactive type F90.1 [facility] [place] [id number] [place] [address] 54087- 5735 May, Diabetes E11.9 [facility] [id number] [place] [address] 87965 -9415 May, Acute non-recurrent maxillary sinusitis J01.00 and Diabetes E11.9 [facility] [place] [address], [place] [address]- 3728 May, [facility] [place] [id number] [place] [address] 13783- 7801 May, [facility] [place] [id number] [place] [address] 45638- 3611 May, Generalized anxiety disorder F41.1 [facility] [place] [address] [place] [address] 29410- 9951 Apr, [facility] [place] [address], [place] [address]- 7430 Apr, [facility], [place] [id number] [place] [address] 22979- 4636 Apr, [place] [id number] [place] [address] 85063- 5451 Apr, Generalized anxiety disorder F41.1 ; Major depressive disorder, recurrent episode, unspecified severity F33.9 ; PTSD (post-traumatic stress disorder) F43.10 ; Eating disorder F50.9 and Attention-deficit hyperactivity disorder, predominantly hyperactive type F90.1 [place] [id number] [place] [address] 02128- 3983 Apr, Major depressive disorder, recurrent, moderate F33.1 [place] [id number] [place] [address] 99294- 7836 Mar, Diabetes E11.9 [place] [id number] [place] [address] 94224- 9077 Mar, Attention-deficit hyperactivity disorder, combined type F90.2 [place] [id number] [place] [address] 89164- 4361 Mar, [place] [id number] [place] [address] 90206- 9352 Mar, Diabetes E11.9 [address] [id number] [place] [address] 30536- 9412 Mar, 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 ; Psoriatic arthritis L40.50 ; Other specified 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 and 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 I10 [place] [id number] [place] [address] 40607- 9513 February, Back pain M54.9 [address] [address] [id number] [place] [address] 93065- 9974 February, Attention-deficit hyperactivity disorder, combined type F90.2 [place] [id number] [place] [address] 96993- 0781 February, Major depressive disorder, recurrent episode, unspecified severity F33.9 and Generalized anxiety disorder F41.1 [facility] [place] [address] [place] [address] 62146- 0410 Jan, Attention-deficit hyperactivity disorder, combined type F90.2 [place] [id number] [place] [address] 42934- 7306 Jan, Major depressive disorder, recurrent, moderate F33.1 ; Generalized anxiety disorder F41.1 and Attention-deficit hyperactivity disorder , combined type F90.2 [place] [id number] [place] [address] 32462- 5143 Dec, Major depressive disorder, recurrent episode, unspecified severity F33.9 ; Generalized anxiety disorder F41.1 and Attention-deficit hyperactivity disorder, predominantly hyperactive type F90.1 [place] [id number] [place] [address] 99089- 3569 Dec, Major depressive disorder, recurrent episode, unspecified severity F33.9 and Generalized anxiety disorder F41.1 [place] [id number] [place] [address] 92386- 6881 Dec, [place] [id number] [place] [address] 76513- 5940 Dec, [place] [id number] [place] [address] 19480- 2114 Dec, Major depressive disorder, recurrent episode, unspecified severity F33.9 and Generalized anxiety disorder F41.1 [place] [id number] [place] [address] 07374- 2938 Dec, Back pain M54.9 [place] [id number] [place] [address] 17803- 9855 17 Dec, 2016 Eustachian tube dysfunction, right H69.81 and Arthritis M19.90 [facility] [place] [id number] [place] [address] 15241- 6884 Dec, [place] [id number] [place] [address] 98762- 0989 Dec, [place] [address], [place] [address]- 2166 07 Dec, 2016 Major depressive disorder, recurrent episode, unspecified severity F33.9 [place] [address], [place] [address]- 3120 Oct, [facility] [address] [place] [address] 40931 -3054 Oct, Acute non-recurrent pansinusitis J01.40 and Sore throat J02.9 [place] [address] [place] [address] 77909- 8821 Oct, Major depressive disorder, recurrent episode, unspecified severity F33.9 [place] [address] [place] [address] 27423- 3433 Oct, Major depressive disorder, recurrent episode, unspecified severity F33.9 and Generalized anxiety disorder F41.1 [place] [address] [place] [address] 76607- 2521 Sep, [place] [id number] [place] [address] 33601- 5499 Sep, Major depressive disorder, recurrent episode, unspecified severity F33.9 [place] [address] [place] [address] 44462- 4667 Sep, Major depressive disorder, recurrent episode, unspecified severity F33.9 [facility] [address], [place] [address] -0374 Sep, Sore throat J02.9 [place] [id number] [place] [address] 79243- 1738 15 Sep, 2016 Generalized anxiety disorder F41.1 ; Major depressive disorder, recurrent episode, unspecified severity F33.9 and Attention-deficit hyperactivity disorder, predominantly hyperactive type F90.1 [place] [address], [place] [address]- 6256 Sep, Major depressive disorder, recurrent episode, unspecified severity F33.9 and Generalized anxiety disorder F41.1 [facility] [place] [address] [place] [address] 71989- 7430 Sep, Psoriatic arthritis L40.50 [facility] [place] [id number] [place] [address] 37852- 9575 02 Sep, 2016 Diabetes E11.9 ; 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 ; Back pain M54.9 and Encounter for immunization Z23 [facility] [place] [id number] [place] [address] 68549- 9157 Aug, [place] [id number] [place] [address] 89796- 9629 Aug, [place] [id number] [place] [address] 54268- 4939 Jul, Major depressive disorder, recurrent episode, unspecified severity F33.9 ; Attention-deficit hyperactivity disorder, predominantly hyperactive type F90.1 and Generalized anxiety disorder F41.1 [place] [id number] [place] [address] 79077- 5654 Jul, [facility] [place] [id number] [place] [address] 21441- 7891 22 Jul, 2016 Major depressive disorder, recurrent, in partial remission F33.41 and Generalized anxiety disorder F41.1 [place] [id number] [place] [address] 69784- 8106 Jul, [facility] [place] [id number] [place] [address] 54013- 3325 19 Jul, 2016 [place] [id number] [place] [address] 23167- 6722 13 Jul, 2016 [place] [id number] [place] [address] 16596- 0678 Jul, [place] [id number] [place] [address] 25113- 9282 12 Jul, 2016 Diabetes E11.9 [place] [id number] [place] [address] 38767- 0538 May, [facility] [place] [id number] [place] [address] 14748- 7165 May, [facility] [place] [id number] [place] [address] 62788- 9386 May, [facility] [place] [address] 49931- 3440 May, Major depressive disorder, recurrent episode, unspecified severity F33.9 ; Generalized anxiety disorder F41.1 and Attention-deficit hyperactivity disorder, predominantly hyperactive type F90.1 [facility] [place] [id number] [place] [address] 59764- 7981 May, [facility] [place] [id number] [place] [address] 91512- 0464 May, Diabetes E11.9 [facility] [place] [id number] [place] [address] 43770- 3435 May, [facility] [place] [id number] [place] [address] 41833- 4212 May, [facility] [address] [facility] [place] [id number] May, Diabetes E11.9 ; Generalized anxiety disorder F41.1 and Nausea R11.0 [facility] [place] [id number] [place] [address] 58222- 7663 May, Psoriatic arthritis L40.50 and Candidiasis of female genitalia B37.3 [facility] [place] [address] [place] [address] 72778- 4106 May, [facility] [place] [id number] [place] [address] 91979- 8337 Apr, [facility] [place] [id number] [place] [address] 25806- 7458 Apr, [facility] [place] [id number] [place] [address] 33686- 5519 Apr, [facility] [place] [address], [place] [address]- 1734 Apr, Generalized anxiety disorder F41.1 ; Major depressive disorder, recurrent episode, unspecified severity F33.9 and Attention-deficit hyperactivity disorder, predominantly hyperactive type F90.1 [facility] [place] [address], [place] [address]- 6999 Apr, [facility] [place] [id number] [place] [address] 65178- 4849 Apr, [facility] [place] [id number] [place] [address] 08025- 4513 Apr, [facility] [place] [address], [place] [address]- 6288 Apr, [facility] [place] [id number] [place] [address] 28078- 7910 Apr, [facility] [place] [address], [place] [address]- 9966 Mar, Attention-deficit hyperactivity disorder, predominantly hyperactive type F90.1 [facility] [place] [id number] [place] [address] 63790- 2984 Mar, [facility] [place] [address], [place] [address]- 9775 Mar, [facility] [place] [address], [place] [address]- 1008 Mar, Major depressive disorder, recurrent episode, unspecified severity F33.9 and Generalized anxiety disorder F41.1 [facility] [place] [id number], [place] [address] February, Diabetes E11.9 [facility] [id number], [place] [address] February, OME (otitis media with effusion), bilateral H65.93 [facility], [place] [id number] [place] [id number] February, Back pain M54.9 [facility], [place] [id number] [place] [id number] February, [facility], [place] [address] [id number] [place] [address] 33548- 7200 February, Nausea R11.0 [facility], [place] [address] 71978- 3206 February, [facility], [place] [id number] [place] [address] 16734- 7444 February, Pre-op evaluation Z01.818 ; Type 2 diabetes mellitus with hyperglycemia E11.65 and alf 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 [place] [id number] [place] [address] 61386- 2819 February, [facility] [id number] [place] [address] 62737 -2218 February, Right otitis externa H60.91 [facility], [place] [id number] [place] [address] 99737- 7701 Jan, [facility], [place] [id number] [place] [address] 81395- 9210 Jan, Psoriatic arthritis L40.50 and Arthralgia, unspecified joint M25.50 [place] [id number] [place] [address] 51090- 5827 Jan, Major depressive disorder, recurrent episode, unspecified severity F33.9 ; Generalized anxiety disorder F41.1 and Attention-deficit hyperactivity disorder, unspecified type F90.9 [facility], [place] [id number] [place] [address] 64167- 0894 Jan, [facility], [place] [id number] [place] [address] 86241- 2488 Jan, [facility], [place] [id number] [place] [address] 67564- 9778 Jan, Major depressive disorder, recurrent episode, unspecified severity F33.9 and Generalized anxiety disorder F41.1 [facility], [place] [id number] [place] [address] 02648- 3949 Jan, [facility], [place] [id number] [place] [address] 98438- 0649 Dec, 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 I10 and Arthritis M19.90 [facility], [place] [id number] [place] [address] 79844- 2302 Dec, [facility], [place] [id number] [place] [address] 47141- 0986 Dec, [facility], [place] [id number] [place] [address] 93056- 7269 Dec, [facility], [place] [id number] [place] [address] 15955- 4133 Dec, [facility], [place] [id number] [place] [address] 15597- 5690 Dec, [facility], [place] [id number] [place] [address] 52629- 6157 Dec, Major depressive disorder, recurrent episode, unspecified severity F33.9 and Generalized anxiety disorder F41.1 [place] [id number] [place] [address] 93850- 8106 Dec, Diabetes E11.9 ; Back pain M54.9 ; Thrush B37.0 and 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 I10 [facility], [place] [address], [place] [address] 3847 18 Dec, 2015 Major depressive disorder, recurrent episode, unspecified severity F33.9 and Generalized anxiety disorder F41.1 [place] [id number] [place] [address] 56824- 0896 04 Dec, 2015 Major depressive disorder, recurrent episode, in partial or unspecified remission 296.35 ; Major depressive disorder, recurrent episode, unspecified severity F33.9 and Generalized anxiety disorder 300.02 [place] [address], [place] [address]- 5747 Dec, [facility], [place] [id number] [place] [address] 40803- 8983 Oct, [facility], [place] [id number] [place] [address] 49451- 7644 Oct, [facility], [place] [id number] [place] [address] 89091- 9823 Oct, [facility], [place] [id number] [place] [address] 69877- 4812 Oct, [facility], [place] [id number] [place] [address] 21197- 0388 Oct, Major depressive disorder, recurrent, moderate F33.1 and Attention-deficit hyperactivity disorder, unspecified type F90.9 [place] [id number] [place] [address] 59107- 2455 Oct, alf (current) use of opiate analgesic Z79.891 [facility], [place] [id number] [place] [address] 61962- 5987 Oct, [place] [id number] [place] [address] 23163- 7377 Oct, [facility] [id number] [place] [address] 31178 -4663 Sep, URI (upper respiratory infection) J06.9 ; Psoriasis L40.9 ; Cough R05 and Tobacco abuse Z72.0 [facility], [place] [address], [place] [address]- 8536 Sep, Major depressive disorder, recurrent episode, in partial or unspecified remission 296.35 ; Generalized anxiety disorder 300.02 and ADHD, 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 [facility] [address], [place] [address]9197 Sep, Acute sinusitis, unspecified J01.90 [facility], [place] [id number] [place] [address] 16115- 7950 Sep, [facility], [place] [id number] [place] [address] 52243- 6783 Sep, Major depressive disorder, recurrent, moderate F33.1 ; Generalized anxiety disorder F41.1 and Attention-deficit hyperactivity disorder , combined type F90.2 [facility], [place] [id number] [place] [address] 16010- 4506 Sep, [facility], [place] [id number] [place] [address] 92975- 0609 Aug, [facility], [place] [id number] [place] [address] 35085- 7486 Aug, [facility], [place] [id number] [place] [address] 45419- 7755 Aug, Diabetes E11.9 and Anxiety F41.9 [facility], [place] [id number] [place] [address] 83704- 1017 Aug, Major depressive disorder, recurrent episode, unspecified severity F33.9 and Generalized anxiety disorder F41.1 [facility], [place] [id number] [place] [address] 56455- 8691 Aug, [facility], [place] [id number] [place] [address] 91724- 3021 Jul, [facility], [place] [id number] [place] [address] 15059- 1566 Jul, [facility], [place] [id number] [place] [address] 89336- 6101 Jul, [facility], [place] [id number] [place] [address] 90645- 3115 Jul, [facility], [place] [id number] [place] [address] 57051- 6904 Jul, Major depressive disorder, recurrent episode, in partial or unspecified remission 296.35 ; Generalized anxiety disorder 300.02 and ADHD, 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 [facility], [place] [address], [place] [address]- 5396 10 Jul, 2015 Major depressive disorder, recurrent episode, in partial or unspecified remission 296.35 ; Generalized anxiety disorder 300.02 and ADHD, 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 [facility], [place] [id number] [place] [address] 34641- 4720 Jul, [facility], [place] [address] 87387- 2114 May, [facility], [place] [id number] [place] [address] 73967- 5066 May, [place] [id number] [place] [address] 60944- 5124 May, DM w/o complication type II 250.00 ; Dyspepsia 536.8 and PAD (peripheral artery disease) 443.9 [place] [id number] [place] [address] 81373- 3865 May, Major depressive disorder, recurrent episode, moderate 296.32 and Generalized anxiety disorder 300.02 [place] [id number] [place] [address] 19882- 4753 May, [facility], [place] [id number] [place] [address] 07932- 6410 May, Major depressive disorder, recurrent episode, moderate 296.32 and Generalized anxiety disorder 300.02 [facility], [place] [id number] [place] [address] 55268- 6454 May, [facility], [place] [id number] [place] [address] 28077- 6841 Apr, [facility], [place] [id number] [place] [address] 96366- 8106 Apr, Major depressive disorder, recurrent episode, moderate 296.32 and Generalized anxiety disorder 300.02 [facility], [place] [id number] [place] [address] 45866- 6758 Apr, [facility], [place] [address], [place] [address]- 1633 Apr, [facility], [place] [id number] [place] [address] 34355- 7446 Apr, Generalized anxiety disorder 300.02 ; ADHD, 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 and Depression, major, recurrent, moderate 296.32 [facility], [place] [id number] [place] [address] 08947- 3175 Apr, Major depressive disorder, recurrent episode, moderate 296.32 and Generalized anxiety disorder 300.02 [facility], [place] [id number] [place] [address] 29365- 5143 Apr, [facility], [place] [id number] [place] [address] 50731- 3328 Apr, [facility], [place] [id number] [place] [address] 35944- 2025 Mar, [facility], [place] [id number] [place] [address] 10017- 3909 Mar, Major depressive disorder, recurrent episode, moderate 296.32 and Generalized anxiety disorder 300.02 [facility], [place] [id number] [place] [address] 21853- 2938 Mar, ADHD, 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 ; Major depressive disorder, recurrent episode, severe, without mention of psychotic behavior 296.33 and Generalized anxiety disorder 300.02 [facility], [place] [address], [place] [address]- 6059 February, Major depressive disorder, recurrent episode, moderate 296.32 and Generalized anxiety disorder 300.02 [facility], [place] [address], [place] [address]- 2900 February, [facility], [place] [id number] [place] [address] 82846- 6729 February, [facility], [place] [address], [place] [address]- 7288 February, [facility], [place] [address] [facility] [id number] [address]- 8621 February, [facility], [place] [address], [place] [address]- 4440 February, DM w/o complication type II 250.00 ; Impacted cerumen 380.4 ; Essential hypertension, benign 401.1 and Irritable colon 564.1 [facility], [place] [address] [facility] [id number], [place] [address]- 3282 February, [facility], [place] [address] [facility] [id number] [place] [address]- 1826 February, [facility], [place] [id number] [address]- 2293 Jan, [facility], [place] [address], [place] [address]- 0287 Dec, [facility], [place] [address], [place] [address]- 3294 Dec, [facility], [place] [id number], [place] [address]- 0750 Dec, [facility], [place] [address], [place] [address]- 3821 Dec, [facility], [place] [address], [place] [address]- 0871 Dec, [facility], [place] [address] [facility] [id number], [place] [address]- 3244 Dec, [facility], [place] [address] [facility] [id number], [place] [address]- 0306 Dec, [facility], [place] [address] [facility] [id number], [place] [address]- 3249 Dec, [facility], [place] [id number], [place] [address]- 3863 Dec, [facility], [place] [id number] [place] [address]- 8666 Dec, [facility] [place] [facility] [address] [id number] [place] [address]- 6026 Dec, 2014 [facility] [place] [facility] [address] [id number] [place] [address]- 0536 Dec, 2014 [facility] [place] [facility] [address] [id number] [place] [address]- 5566 Dec, 2014 [facility] [place] [facility] [address] [id number] [place] [address]- 2546 Dec, 2014 [facility] [place] [facility] [address] [id number] [place] [address]- 5999 Dec, [facility] [place] [facility] [address] [id number] [place] [address]- 4936 Dec, [facility] [place] [facility] [address] [id number] [place] [address]- 2229 Oct, [facility] [place] [facility] [address] [id number] [place] [address]- 2362 Oct, [facility] [place] [facility] [address] [id number] [place] [address]- 1891 Oct, [facility] [place] [facility] [address] [id number] [place] [address]- 3177 Oct, [facility] [place] [facility] [address] [id number] [place] [address]- 7819 Oct, [facility] [place] [facility] [address] [id number] [place] [address]- 9413 Oct, [facility] [place] [facility] [address] [id number] [place] [address]- 3184 Oct, [facility] [place] [facility] [address] [id number] [place] [address]- 2546 Oct, [facility] [place] [facility] [address] [id number] [place] [address]- 6307 Oct, [facility] [place] [facility] [address] [id number] [place] [address]- 2090 Oct, [facility] [place] [facility] [address] [id number] [place] [address]- 5257 Oct, [facility] [place] [facility] [address] [id number] [place] [address]- 3575 Sep, [facility] [place] [facility] [address] [id number] [place] [address]- 9563 Sep, [facility] [place] [facility] [address] [id number] [place] [address]- 6272 Sep, [facility] [place] [facility] [address] [id number] [place] [address]- 9351 Sep, [facility] [place] [facility] [address] [id number] [place] [address]- 2967 Sep, [facility] [place] [facility] [address] [id number] [place] [address]- 0217 Sep, [facility] [place] [facility] [address] [id number] [place] [address]- 7260 Sep, [facility] [place] [facility] [address] [id number] [place] [address]- 5395 Sep, [facility] [place] [facility] [address] [id number] [place] [address]- 5950 Aug, [facility] [place] [facility] [address] [id number] [place] [address]- 9701 Aug, [facility] [place] [facility] [address] [id number] [place] [address]- 5019 Aug, [facility] [place] [facility] [address] [id number] [place] [address]- 2629 Aug, [facility] [place] [facility] [address] [id number] [place] 8538 Aug, [facility] [place] [facility] [address] [id number], [place] [address]- 7861 Aug, [facility] [place] [facility] [address] [id number] [place] [address]- 2502 Aug, [facility] [place] [facility] [address] [id number] [place] [address]- 5796 Aug, [facility] [place] [facility] [address] [id number] [place] [address]- 0451 Aug, [facility] [place] [facility] [address] [id number] [place] [address]- 2518 Aug, [facility] [place] [facility] [address] [id number] [place] [address]- 4092 Aug, [facility] [place] [facility] [address] [id number] [place] [address]- 4324 Aug, [facility] [place] [facility] [address] [id number] [place] [address]- 8736 Aug, [facility] [place] [facility] [address] [id number], [place] [address]- 9915 Aug, [facility] [place] [facility] [address] [id number] [place] [address]- 1789 Jul, [facility] [place] [facility] [address] [id number], [place] [address]- 4874 Jul, [facility] [place] [facility] [address] [id number], [place] [address]- 8143 Jul, [facility] [place] [facility] [address] [id number], [place] [address]- 6833 Jul, [facility] [place] [facility] [address] [id number], [place] [address]- 0082 Jul, [facility] [place] [facility] [address] [id number], [place] [address]- 1428 Jul, [facility] [place] [facility] [address] [id number], [place] [address]- 8183 Jul, [facility] [place] [facility] [address] [id number] [place] [address]- 6811 Jul, 2013 [facility] [place] [facility] [address] [id number] [place] [address]- 7906 Jul, 2013 [facility] [place] [facility] [address] [id number] [place] [address] 2546 Jul, 2013 [facility] [place] [facility] [address] [id number] [place] [address]- 8776 Jul, 2013 [facility] [place] [facility] [address] [id number] [place] [address] 2542 Jul, [facility] [place] [facility] [address] [id number] [place] [address]- 5335 Jul, [facility] [place] [facility] [address] [id number] [place] [address]- 9882 Jul, [facility] [place] [facility] [address] [id number] [place] [address]- 7021 May, [facility] [place] [facility] [address] [id number] [place] [address]- 2514 May, [facility] [place] [facility] [address] [id number] [place] [address]- 0973 May, [facility] [place] [facility] [address] [id number] [place] [address]- 6833 May, [facility] [place] [facility] [address] [id number] [place] [address]- 5110 May, [facility] [place] [facility] [address] [id number] [place] [address]- 6784 May, [facility] [place] [facility] [address] [id number] [place] [address]- 1199 May, [facility] [place] [facility] [address] [id number] [place] [address]- 0840 May, [facility] [place] [facility] [address] [id number] [place] [address]- 6138 May, [facility] [place] [facility] [address] [id number] [place] [address]- 6527 May, [facility] [place] [facility] [address] [id number] [place] [address]- 2057 May, [facility] [place] [facility] [address] [id number] [place] [address]- 0251 May, [facility] [place] [facility] [address] [id number] [place] [address]- 7419 Apr, [facility] [place] [facility] [address] [id number] [place] [address]- 4142 Apr, [facility] [place] [facility] [address] [id number] [place] [address]- 7676 Apr, [facility] [place] [facility] [address] [id number] [place] [address]- 3709 Apr, [facility] [place] [facility] [address] [id number] [place] [address]- 4053 Apr, [facility] [place] [facility] [address] [id number] [place] [address]- 1672 Apr, [facility] [place] [facility] [address] [id number] [place] [address]- 6939 Mar, [facility] [place] [facility] [address] [id number] [place] [address]- 1238 Mar, [facility] [place] [facility] [address] [id number], [place] [address]- 6750 Mar, [facility] [place] [facility] [address] [id number] [place] [address]- 6226 Mar, [facility] [place] [facility] [address] [id number] [place] [address]- 6536 Mar, [facility] [place] [facility] [address] [id number] [place] [address]- 4658 Mar, [facility] [place] [facility] [address] [id number] [place] [address]- 9415 Mar, [facility] [place] [facility] [address] [id number] [place] [address]- 1520 Mar, [facility] [place] [facility] [address] [id number] [place] [address] Mar, [facility] [place] [facility] [address] [id number] [place] [address] Mar, [facility] [place] [facility] [address] [id number] [place] [address] Mar, [facility] [place] [facility] [address] [id number] [place] [address] Mar, [facility] [place] [facility] [address] [id number] [place] [address] Mar, [facility] [place] [facility] [address] [id number] [place] [address] February, [facility] [place] [facility] [address] [id number] [place] [address] February, [facility] [place] [facility] [address] [id number] [place] [address] February, [facility] [place] [facility] [address] [id number] [place] [address] February, [facility] [place] [facility] [address] [id number] [place] [address] February, [facility] [place] [facility] [address] [id number] [place] [address] February, [facility] [place] [facility] [address] [id number] [place] [address] February, [facility] [place] [facility] [address] [id number] [place] [address] February, [facility] [place] [facility] [address] [id number] [place] [address] February, [facility] [place] [facility] [address] [id number] [place] [address] February, [facility] [address] [id number] [place] [address] February, [facility] [address] [id number] [place] [address] February, [facility] [place] [facility] [address] [id number] [place] [address] February, [facility] [address] [id number] [place] [address] February, [facility] [place] [facility] [address] [id number] [place] [address] Jan, [facility] [place] [facility] [address] [id number] [place] [address] Jan, [facility] [address] [id number] [place] [address] Jan, [facility] [facility] [address] [id number] [place] [address] Jan, [facility] [place] [facility] [address] [id number] [place] [address] Jan, [facility] [place] [facility] [address] [id number] [place] [address] Jan, [facility] [place] [facility] [address] [id number] [place] [address] Jan, [facility] [place] [facility] [address] [id number] [place] [address] Jan, [facility] [place] [facility] [address] [id number] [place] [address] Jan, [facility] [place] [facility] [address] [id number] [place] [address] Dec, [facility] [place] [facility] [address] [id number], [place] [address] Dec, [facility] [place] [facility] [address] [id number] [place] [address] Dec, [facility] [place] [facility] [address] [id number] [place] [address] Dec, [facility] [place] [facility] [address] [id number] [place] [address] Dec, [facility] [place] [facility] [address] [id number] [place] [address] Dec, [facility] [place] [facility] [address] [id number] [place] [address] Dec, [facility] [place] [facility] [address] [id number] [place] [address] Dec, [facility] [place] [facility] [address] [facility] [id number] [place] [address] Dec, [facility] [place] [facility] [address] [id number] [place] [address] Dec, [facility] [place] [facility] [address] [id number] [place] [address]- [address] 14 Dec, 2013 [facility] [place] [facility] [address] [facility] [id number] [place] [address]- [address] Dec, [facility] [place] [facility] [address] [id number] [place] [address] Dec, [facility] [place] [facility] [address] [id number], [place] [address] 10 Dec, 2013 [facility] [place] [facility] [address] [id number] [place] [address] Dec, [facility] [place] [facility] [address] [id number] [place] [address]- [address] 06 Dec, 2013 [facility] [place] [facility] [address] [address] [id number], [place] [address] Dec, [facility] [place] [facility] [address] [id number] [place] [address] Oct, [facility] [place] [facility] [address] [id number] [place] [address] Oct, [facility] [place] [facility] [address] [id number] [place] [address] Oct, [facility] [place] [facility] [address] [id number] [place] [address] 2895 Oct, [facility] [address] [id number] [place] [address] Oct, [facility] [place] [facility] [address] [id number] [place] [address] 8[address] Oct, [facility] [place] [facility] [address] [id number] [place] [address] 6[address] Oct, [facility] [address] [id number] [place] [address] 8720 Oct, [facility] [place] [facility] [address] [id number] [place] [address] 3080 Oct, [facility] [place] [facility] [address] [id number] [place] [address] 9895 Oct, [facility] [place] [facility] [address] [id number] [place] [address] 1877 Oct, [facility] [place] [facility] [address] [id number] [place] [address] 456[address] Oct, [facility] [place] [facility] [address] [id number] [place] [address]- 1796 Oct, [facility] [place] [facility] [address] [id number] [place] [address] 3935 Oct, [facility] [place] [facility] [address] [id number] [place] [address] 6[address] Sep, [facility] [place] [facility] [address] [id number] [place] [address]- 2546 31 Sep, 2013 [facility] [place] [facility] [address] [id number] [place] [address]- 5826 30 Sep, 2013 [facility] [place] [facility] [address] [id number] [place] [address]- 4096 30 Sep, 2013 [facility] [place] [facility] [address] [id number] [place] [address]- 6546 27 Sep, 2013 [facility] [place] [facility] [address] [id number] [place] [address] 7148 Sep, [facility] [place] [facility] [address] [id number] [place] [address]- 7091 Sep, [facility] [place] [facility] [address] [id number] [place] [address]- 6386 Sep, [facility] [place] [facility] [address] [id number] [place] [address]- 3079 Sep, [facility] [place] [facility] [address] [id number] [place] [address]- 5053 27 Sep, 2013 [facility] [place] [facility] [address] [id number] [place] [address]- 6280 16 Sep, 2013 [facility] [place] [facility] [address] [id number] [place] [address]- 8265 16 Sep, 2013 [facility] [place] [facility] [address] [id number] [place] [address]- 6405 13 Sep, 2013 [facility] [place] [facility] [address] [id number] [place] [address]- 9166 13 Sep, 2013 [facility] [place] [facility] [address] [id number] [place] [address] 2546 10 Sep, 2013 [facility] [place] [facility] [address] [id number] [place] [address]- 8883 10 Sep, 2013 [facility] [place] [facility] [address] [id number] [place] [address]- 3468 02 Sep, 2013 [facility] [place] [facility] [address] [id number] [place] [address]- 8294 02 Sep, 2013 [facility] [address] [id number] [place] [address]- 2393 15 Aug, 2013 [facility] [place] [facility] [address] [id number] [place] [address]- 2250 15 Aug, 2013 [facility] [address] [id number] [place] [address]- 0865 16 Jul, 2013 [facility] [place] [facility] [address] [id number] [place] [address]- 2211 16 Jul, 2013 [facility] [address] [id number] [place] [address]- 2473 14 Jul, 2013 [facility] [address] [id number] [place] [address]- 4448 14 Jul, 2013 [facility] [address] [id number] [place] [address]- 1447 08 Jul, 2013 [facility] [address] [id number] [place] [address]- 8697 20 Sep, 2012 [facility] [place] [facility] [address] [id number] [place] [address]- 6911 19 Sep, 2012 [facility] [address] [id number] [place] [address]- 3430 13 Sep, 2012 [facility] [place] [facility] [address] [id number] [place] [address]- 2541 08 Sep, 2012 [facility] [place] [facility] [address] [id number] [place] [address]- 254 06 Sep, 2012 [facility] [place] [facility] [address] [id number] [place] [address]- 0486 06 Sep, 2012 [facility] [place] [facility] [address] [id number] [place] [address]- 2548 06 Sep, 2012 [facility] [place] [facility] [address] [id number] [place] [address]- 7663 Jul, [facility] [address] [id number] [place] [address]- 3254 May, [facility] [place] [facility] [address] [id number] [place] [address]- 6506 May, [facility] [place] [facility] [address] [id number] [place] [address]- 0071 May, [facility] [place] [facility] [address] [id number] [place] [address]- 3661 May, [facility] [place] [facility] [address] [id number] [place] [address]- 3932 Apr, [facility] [place] [facility] [address] [id number] [place] [address]- 4011 Apr, [facility] [place] [facility] [address] [id number] [place] [address]- 2471 Apr, [facility] [place] [facility] [address] [id number] [place] [address]- 5021 Mar, [facility] [place] [facility] [address] [id number] [place] [address]- 4470 Mar, [facility] [place] [facility] [address] [id number] [place] [address]- 5048 Mar, [facility] [place] [facility] [address] [id number] [place] [address]- 3297 Mar, [facility] [place] [facility] [address] [id number], [place] [address] February, [facility] [place] [facility] [address] [id number] [place] [address] 2050 February, [facility] [place] [facility] [address] [id number] [place] [address]- 6812 Jan, [facility] [place] [facility] [address] [id number] [place] [address]- 7708 Dec, [facility] [place] [facility] [address] [id number], [place] [address] 1186 18 Dec, 2012 [facility] [address] [id number] [place] [address]- 5863 05 Dec, 2012 [facility] [address] [id number] [place] [address]- 9931 05 Dec, 2012 [facility] [address] [id number] [place] [address]- 8687 28 Dec, 2012 [facility] [address] [id number] [place] [address]- 0503 27 Dec, 2012 [facility] [address] [id number] [place] [address]- 3112 26 Dec, 2012 [facility] [address] [id number] [place] [address]- 0652 25 Dec, 2012 [facility] [address] [id number] [place] [address]- 0909 22 Dec, 2012 [facility] [address] [id number] [place] [address]- 0706 15 Dec, 2012 [facility] [address] [id number] [place] [address]- 6361 14 Dec, 2012 [facility] [address] [facility] [id number] [place] [address]- 3642 31 Oct, 2012 [facility] [address] [id number] [place] [address]- 1899 Oct, [facility] [address] [id number] [place] [address]- 4717 Oct, [facility] [place] [facility] [address] [id number] [place] [address] Oct, [facility] [address] [facility] [id number] [place] [address]- 5551 Sep, [facility] [address] [facility] [id number] [place] [address]- 8832 Sep, [facility] [place] [facility] [address] [id number] [place] [address]- 5743 Sep, [facility] [place] [facility] [address] [id number] [place] [address]- 4751 Sep, [facility] [place] [facility] [address] [id number] [place] [address]- 8109 Sep, [facility] [place] [facility] [address] [id number] [place] [address]- 4107 Sep, [facility] [place] [facility] [address] [id number] [place] [address]- 7235 Aug, [facility] [place] [facility] [address] [id number] [place] [address]- 0397 Aug, [facility] [place] [facility] [address] [facility] [id number] [place] [address]- 0238 Aug, [facility] [place] [facility] [address] [id number], [place] [address]- 5402 Aug, [facility] [place] [facility] [address] [facility] [id number] [place] [address]- 3978 Aug, [facility] [place] [facility] [address] [facility] [id number], [place] [address]- 6742 Aug, [facility] [place] [facility] [address] [facility] [id number], [place] [address]- 4813 Jul, [facility] [place] [facility] [address] [id number], [place] [address]- 9618 Jul, [facility] [place] [facility] [address] [id number], [place] [address]- 3268 Jul, [facility] [place] [facility] [address] [id number], [place] [address]- 2316 Jul, [facility] [place] [facility] [address] [facility] [id number], [place] [address]- 5083 Jul, [facility] [place] [facility] [address] [id number], [place] [address]- 5508 Jul, [facility] [place] [facility] [address] [id number] [place] [address]- 1656 27 Jul, 2012 [facility] [place] [facility] [address] [id number] [place] [address] 2546 Jul, [facility] [place] [facility] [address] [id number] [place] [address]- 8446 20 Jul, 2012 [facility] [place] [facility] [address] [id number] [place] [address]- 2332 11 Jul, 2012 [facility] [place] [facility] [address] [id number] [place] [address]- 0507 Jul, [facility] [place] [facility] [address] [id number] [place] [address]- 9747 May, [facility] [place] [facility] [address] [id number] [place] [address]- 2312 May, [facility] [place] [facility] [address] [id number] [place] [address]- 0650 May, [facility] [place] [facility] [address] [id number] [place] [address]- 4410 May, [facility] [place] [facility] [address] [id number] [place] [address]- 6978 Apr, [facility] [place] [facility] [address] [id number] [place] [address]- 4289 Apr, [facility] [place] [facility] [address] [id number] [place] [address]- 1720 Apr, [facility] [place] [facility] [address] [id number] [place] [address]- 4609 Apr, [facility] [place] [facility] [address] [id number] [place] [address]- 4888 Apr, [facility] [place] [facility] [address] [id number] [place] [address]- 6167 Apr, [facility] [place] [facility] [address] [id number] [place] [address]- 0462 13 Apr, 2012 [facility] [place] [facility] [address] [id number] [place] [address]- 4895 09 Apr, 2012 [facility] [place] [facility] [address] [id number] [place] [address]- 5329 28 Mar, 2012 [facility] [place] [facility] [address] [id number] [place] [address]- 2156 27 Mar, 2012 [facility] [place] [facility] [address] [id number] [place] [address]- 0495 20 Mar, 2012 [facility] [place] [facility] [address] [id number] [place] [address]- 3553 15 Mar, 2012 [facility] [place] [facility] [address] [id number] [place] [address]- 9564 14 Mar, 2012 [facility] [place] [facility] [address] [id number] [place] [address]- 1603 Mar, [facility] [place] [facility] [address] [id number] [place] [address]- 8390 Mar, [facility] [place] [facility] [address] [id number] [place] [address]- 9112 Mar, [facility] [place] [facility] [address] [id number] [place] [address]- 3206 08 Mar, 2012 [facility] [place] [facility] [address] [id number] [place] [address]- 4205 February, [facility] [place] [facility] [address] [id number] [place] [address]- 0010 February, [facility] [place] [facility] [address] [id number] [place] [address]- 7636 February, [facility] [place] [facility] [address] [id number] [place] [address]- 0096 February, [facility] [place] [facility] [address] [id number] [place] [address]- 9218 13 Jan, 2012 [facility] [place] [facility] [address] [id number] [place] [address]- 1316 03 Jan, 2012 [facility] [place] [facility] [address] [id number] [place] [address]- 2036 28 Dec, 2011 [facility] [place] [facility] [address] [id number] [place] [address]- 8146 15 Dec, 2011 [facility] [place] [facility] [address] [id number] [place] [address]- 3455 14 Dec, 2011 [facility] [place] [facility] [address] [id number] [place] [address]- 5506 07 Dec, 2011 [facility] [place] [facility] [address] [id number] [place] [address]- 2598 28 Dec, 2011 [facility] [place] [facility] [address] [facility] [id number] [place] [address]- 3286 Dec, [facility] [place] [facility] [address] [id number] [place] [address]- 7882 Dec, [facility] [place] [facility] [address] [id number] [place] [address]- 3424 Dec, [facility] [place] [facility] [address] [facility] [id number] [place] [address]- 3336 Dec, [facility] [place] [facility] [address] [facility] [id number] [place] [address]- 0476 Dec, [facility] [place] [facility] [address] [id number] [place] [address]- 2138 Dec, [facility] [place] [facility] [address] [id number] [place] [address]- 2986 Dec, [facility] [place] [facility] [address] [id number] [place] [address]- 8724 Oct, [facility] [place] [facility] [address] [facility] [id number] [place] [address]- 6940 Oct, [facility] [place] [facility] [address] [id number] [place] [address]- 6707 31 Oct, 2011 [facility] [address] [id number] [place] [address]- 4756 Oct, [facility] [place] [facility] [address] [id number] [place] [address]- 0088 Oct, [facility] [place] [facility] [address] [id number] [place] [address]- 2255 Oct, [facility] [place] [facility] [address] [id number] [place] [address]- 5490 16 Oct, 2011 [facility] [place] [facility] [address] [id number] [place] [address]- 5965 Oct, [facility] [place] [facility] [address] [id number] [place] [address]- 8752 Sep, [facility] [place] [facility] [address] [id number] [place] [address]- 7960 Sep, [facility] [place] [facility] [address] [id number] [place] [address]- 9722 Sep, [facility] [place] [facility] [address] [id number] [place] [address]- 3255 Aug, [facility] [place] [facility] [address] [id number] [place] [address]- 1650 Aug, [facility] [place] [facility] [address] [id number] [place] [address]- 0878 16 Aug, 2011 [facility] [place] [facility] [address] [id number] [place] [address]- 4902 14 Aug, 2011 [facility] [place] [facility] [address] [id number] [place] [address]- 3996 Aug, [facility] [place] [facility] [address] [id number] [place] [address]- 9906 19 Jul, 2011 [facility] [place] [facility] [address] [id number] [place] [address]- 5925 Jul, [facility] [place] [address] [facility] [id number], [place] [address]- 9169 May, [facility] [place] [address] [id number], [place] [address]- 1296 Dec, [facility] [place] [address] [facility] [id number], [place] [address]- 9858 Oct, [facility] [place] [address] [facility] [id number], [place] [address]- 8720 Sep, [facility] [place] [address] [facility] [id number], [place] [address]- 5485 Sep, [facility] [place] [address] [facility] [id number], [place] [address]- 2408 Sep, IMMUNIZATIONS No Known Immunizations SOCIAL HISTORY Never Assessed REASON FOR VISIT Cold symptoms, sore on right heel--oTyin Hassan MA PLAN OF CARE Activity Details Follow Up prn Reason: VITAL SIGNS Height 65 in 2017-09-26 Weight 256.3 lbs 2017-09-26 Temperature 98.4 degrees Fahrenheit 2017-09-26 Heart Rate 96 bpm 2017-09-26 Respiratory Rate 22 2017-09-26 BMI 42.65 kg/m2 2017-09-26 Blood pressure systolic 132 mmHg 2017-09-26 Blood pressure diastolic 88 mmHg 2017-09-26 MEDICATIONS Medication Instructions Dosage Frequency Start Date End Date Duration Status Estradiol 0.5 MG 1 tablet Active Gabapentin 100 mg Orally 3 times a day 3 - capsules 8h Jul, Active Tramadol HCl 50 mg Orally 3 times a day 1 tablet as needed 8h Not- Taking Multivitamin Adult - Orally, bubble pack for detention Once a day 1 tablet 24h Active BD Insulin Syringe 30G X 1/2 subcutaneously 4 times a day use with insulin 6h May, Active Escitalopram Oxalate 20 MG Orally Once a day 1 tablet 24h 30 days Active Osteo Bi-Flex Regular Strength 250-200 MG Orally Once a day 1 tablet with a meal 24h Active NovoLog Flexpen 100 UNIT/ML Subcutaneous 3 times a day 12 u 8h 41 Active Seroquel 50 mg Orally at bedtime 1 tablet Aug, 30 days Not- Taking PreserVision AREDS - Active Omeprazole 20 MG Orally Once a day 1 capsule 24h 13 Aug, 2017 30 day(s ) Active Tresiba FlexTouch 100 UNIT/ML Subcutaneous Once a day 60u at bedtime 24h 07 Aug, 2017 30 days Active Acetaminophen 500 MG Orally every 6 hrs 2 tablets as needed 6h Active Wellbutrin XL 150 MG Orally Once a day 3 in the morning 24h 30 Active Probiotic - Active Peridex 0.12 % Mouth/Throat swish and spit 4 times a day as directed Aug, Sep, 10 days Active Farxiga 10 mg Orally Once a day 1 tablet 24h Aug, 14 days Active Mirtazapine 15 MG Orally Once a day 1 tablet at bedtime 24h Not- Taking Sudafed 12 Hour 120 MG Orally every 12 hrs 1 tablet as needed 12h Aug, 10 days Active RESULTS No Results PROCEDURES Procedure Date Ordered Result Body Site LAB [facility] Sep 26, 2017 URINALYSIS, AUTO, W/O SCOPE Sep 26, 2017 FQ VISIT ESTABLISHED PATIENT Sep 26, 2017 VENIPUNCT, ROUTINE* Sep 26, 2017 INSTRUCTIONS MEDICATIONS ADMINISTERED No Known Medications [...] veinous reflux Surgical History Left Knee SOA-Dr. Melendrez-[facility] 05/19/16 Surgical History Colonoscopy- Dr Castanon 01/26/2017 Hospitalization History surgeries Hospitalization History Left Knee SOA--Dr. Melendrez--[facility] Hospitalization History Septic shock, UTI-[facility] 07/27/17 Hospitalization History Multiple falls, hyperglycemia, sepsis 07/2017 Hospitalization History Alcoholism, depression, DM, Falls-[facility] 08/23/17 Hospitalization History COPD exacerbation-[facility] 11/25/17 Hospitalization History COPD exacerbation-[facility] 11/28/17
--- OUTSIDE RECORDS SUMMARY | 2018-05-10 03:39 | XMS REPORT ---
Author Author KRISTINA MCGUIRE Organization [facility] Address [address] [place] [address] Care Team Providers Care Button Sewer Name Role Phone KRISTINA MCGUIRE Unavailable PROBLEMS Type Condition ICD9-CM Code [id number] Code Onset Dates Condition Status SNOMED Code Problem Generalized anxiety disorder F41.1 Active 26976150 Problem Diabetes E11.9 Active 57557135 Problem Psoriasis L40.9 Active 7326583 Problem Tobacco abuse Z72.0 Active 59729145 Problem 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 I10 Active 36065960 Problem Back pain M54.9 Active 188416056 Problem Arthritis M19.90 Active 9776517 Problem emt intermediate 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 Active 023279653 Problem Psoriatic arthritis L40.50 Active 588635190 Problem Psychophysiological insomnia F51.04 Active 77400323 Problem Other specified 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 Active 020100649 Problem Obesity (BMI 30-39.9) E66.9 Active 962421195 Problem Major depressive disorder, recurrent, moderate F33.1 Active 53438874 Problem Essential hypertension I10 Active 16565371 Problem Type 2 diabetes mellitus with hyperglycemia E11.65 Active 320683323203415 Problem Alcoholism F10.20 Active 7186839 Problem Frequent falls R29.6 Active 002529161 Problem Benzodiazepine abuse F13.10 Active 159602026 Problem PTSD (post-traumatic stress disorder) F43.10 Active 68908899 Problem Eating disorder F50.9 Active 11443221 Problem Attention-deficit hyperactivity disorder, combined type F90.2 Active 25196583 Problem COPD exacerbation J44.1 Active 468970647 Problem Anxiety F41.9 Active 14073220 Problem Decubitus ulcer of left buttock, stage 2 L89.322 Active 058213099 Problem BMI 40.0-44.9, adult Z68.41 Active 322535899 Problem Alcohol abuse F10.10 Active 60893873 Problem Pneumonia due to methicillin resistant Staphylococcus aureus, unspecified laterality, unspecified part of lung J15.212 Active 985142291412686 Problem Type 2 diabetes mellitus with unspecified complications E11.8 Active 64646235 Problem Attention-deficit hyperactivity disorder, predominantly hyperactive type F90.1 Active 433675991 Problem Type 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 Active 56962746 Problem Ulcer of right foot, unspecified ulcer stage L97.519 Active 71936266 Problem Attention deficit R41.840 Active 40604957 Problem Mental disorder, not otherwise specified F99 Active 40293522 Problem Insomnia due to other mental disorder F51.05 Active 95862565 ALLERGIES No Information ENCOUNTERS Encounter Location Date Diagnosis [facility] [id number] [place] [address] 68105- 1429 February, [facility] [id number] [place] [address] 11042- 7124 February, [facility] [address] [address]351- 9376 Jan, [facility] [address] 39270- 0344 Dec, Major depressive disorder, recurrent episode, unspecified severity F33.9 ; Generalized anxiety disorder F41.1 and Eating disorder F50.9 [facility] [id number] [place] [address] 28581- 2613 Dec, [facility] [id number] [place] [address] 17733- 6710 Dec, [facility] [id number] [place] [address] 51279- 3345 Dec, [facility] [id number] [place] [address] 27463- 5449 Dec, Increased urinary frequency R35.0 ; Frequent falls R29.6 ; Decubitus ulcer of left buttock, stage 2 L89.322 ; Benzodiazepine abuse F13.10 ; BMI 40.0-44.9, adult Z68.41 and Yeast infection B37.9 [facility] [id number] [place] [address] 91741- 3815 Dec, [facility] [address], [place] [address] 9498 Dec, [facility] [address] [place] [address] 42355- 2064 Dec, Increased urinary frequency R35.0 [facility] [address] [place] [address] 25150- 8101 Dec, Increased urinary frequency R35.0 [facility] [address] [place] [address] 99077- 5658 Dec, Generalized anxiety disorder F41.1 ; Major depressive disorder, recurrent, moderate F33.1 and Psychophysiological insomnia F51.04 [facility] [address], [place] [address] 7219 Dec, BMI 40.0-44.9, adult Z68.41 ; Type 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 ; Pneumonia due to methicillin resistant Staphylococcus aureus, unspecified laterality, unspecified part of lung J15.212 and COPD exacerbation J44.1 [facility] [address], [place] [address] Dec, [facility] [id number] [id number] Dec, [facility] [id number] [place] [address] [id number] Oct, [facility] [address] [place] [address] 62805 -6986 Oct, Frequency of urination R35.0 ; Bronchitis J40 and BMI 40.0- 44.9, adult Z68.41 [facility] [id number] [place] [address] [id number] Oct, [facility] [id number], [place] [address]- 6377 Oct, [facility] [id number] [place] [address] 85419- 2006 Oct, BMI 40.0-44.9, adult Z68.41 ; Type 2 diabetes mellitus with hyperglycemia E11.65 ; Essential hypertension I10 ; Vaginal yeast infection B37.3 ; Anxiety F41.9 and Alcoholism F10.20 [place] [id number] [place] [address] 37779- 5382 Oct, [address] 86337- 3510 Oct, [address] 83208- 5965 Sep, [address] 81015- 4999 Sep, Major depressive disorder, recurrent episode, unspecified severity F33.9 ; Generalized anxiety disorder F41.1 and Eating disorder F50.[address] 46775- 3462 Sep, Major depressive disorder, recurrent, moderate F33.1 ; Type 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 ; Alcohol abuse F10.10 ; Obesity (BMI 30-39.9) E66.9 and Psychophysiological insomnia F51.04 [place] [id number] [place] [address] 40818- 5347 Sep, Diabetes E11.9 and Generalized anxiety disorder F41.1 [place] [id number] [place] [address] 55639- 4161 Sep, Major depressive disorder, recurrent episode, unspecified severity F33.9 ; Generalized anxiety disorder F41.1 and Eating disorder F50.9 [place] [id number] [place] [address] 76362- 7063 Sep, [place] [id number] [place] [address] 70234- 9915 Aug, [address] 36404- 3650 Aug, Insomnia due to other mental disorder F51.05 ; Mental disorder, not otherwise specified F99 ; Attention deficit R41.840 ; Ulcer of right foot, unspecified ulcer stage L97.519 ; Cough R05 ; Diabetes E11.9 ; Sore in mouth K13.79 ; Generalized anxiety disorder F41.1 ; Major depressive disorder , recurrent episode, unspecified severity F33.9 and BMI 40.0-44.9, adult Z68.41 [facility] [address], [place] [address]- 9643 Aug, [facility] [address] [place] [address] 95804- 6366 Aug, [facility] [address] [place] [address] 69946- 6270 Aug, [facility] [address], [place] [address]- 1755 Aug, [facility] [id number], [place] [address]- 3052 Aug, Diabetes E11.9 [facility] [address] [facility] [place] [id number] Aug, Falling R29.6 ; Alcohol abuse F10.10 ; Major depressive disorder, recurrent episode, unspecified severity F33.9 ; 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 I10 ; Type 2 diabetes mellitus with unspecified complications E11.8 and half-way 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 [place] [id number] [place] [address] [id number] Aug, [facility] [employer] [address] [place] [id number] Aug, Alcohol abuse F10.10 ; Major depressive disorder, recurrent episode, unspecified severity F33.9 ; Generalized anxiety disorder F41.1 ; emt intermediate 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 ; Psoriatic arthritis L40.50 and Diabetes E11.9 [place] [address] [id number] [id number] Aug, [place] [id number] [id number] Jul, [facility] [address], [place] [address]- 4581 Jul, [facility] [address], [place] [address]- 0446 Jul, Generalized anxiety disorder F41.1 [facility] [address] [place] [address] 54397- 9355 Jul, [facility] [address], [place] [address]- 0399 Jul, [facility] [address] [place] [address] 54054- 6946 Jul, Generalized anxiety disorder F41.1 ; Major depressive disorder, recurrent episode, unspecified severity F33.9 ; PTSD (post-traumatic stress disorder) F43.10 ; Eating disorder F50.9 and Attention-deficit hyperactivity disorder, predominantly hyperactive type F90.1 [facility] [address], [place] [address]- 0521 Jul, [facility] [address] [place] [address] 02326- 7832 Jul, [facility] [address], [place] [address]- 6689 Jul, emt intermediate 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 ; Type 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 ; Urinary tract infection, site not specified N39.0 ; Sepsis, unspecified organism A41.9 and Essential hypertension I10 [facility] [id number] [id number] Jul, [facility] [address], [place] [address] Jul, [facility] [id number], [place] [address]- 0367 Jul, Generalized anxiety disorder F41.1 [facility] [address], [place] [address]- 1497 15 Jul, 2017 [facility] [id number] [place] [address] 61034- 2626 Jul, Generalized anxiety disorder F41.1 [facility] [address], [place] [address]- 9993 May, Generalized anxiety disorder F41.1 ; Major depressive disorder, recurrent episode, unspecified severity F33.9 ; PTSD (post-traumatic stress disorder) F43.10 ; Eating disorder F50.9 and Attention-deficit hyperactivity disorder, predominantly hyperactive type F90.1 [facility] [id number] [place] [address] 90643- 8638 May, Diabetes E11.9 [facility] [address], [place] [address] May, Acute non-recurrent maxillary sinusitis J01.00 and Diabetes E11.9 [facility] [address], [place] [address]- 4732 May, [facility] [id number] [place] [address] 75475- 5684 May, [facility] [address] [place] [address] 92599- 4745 May, Generalized anxiety disorder F41.1 [facility] [address], [place] [address]- 6281 Apr, [facility] [address], [place] [address]- 6068 Apr, [facility] [address] [place] [address] 41505- 5349 Apr, [facility] [address], [place] [address]- 2065 Apr, Generalized anxiety disorder F41.1 ; Major depressive disorder, recurrent episode, unspecified severity F33.9 ; PTSD (post-traumatic stress disorder) F43.10 ; Eating disorder F50.9 and Attention-deficit hyperactivity disorder, predominantly hyperactive type F90.1 [facility] [address] [place] [address] 60093- 1528 Apr, Major depressive disorder, recurrent, moderate F33.1 [facility] [id number] [place] [address] 95201- 1745 Mar, Diabetes E11.9 [facility] [id number] [place] [address] 80977- 5707 Mar, Attention-deficit hyperactivity disorder, combined type F90.2 [facility] [id number] [place] [address] 98468- 6839 Mar, [facility] [id number] [place] [address] 55710- 8591 Mar, Diabetes E11.9 [facility] [id number] [place] [address] 65367- 3012 Mar, half-way 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 ; Psoriatic arthritis L40.50 ; Other specified 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 and 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 I10 [facility] [id number] [place] [address] 92815- 5444 February, Back pain M54.9 [facility] [id number] [place] [address] 91097- 3426 February, Attention-deficit hyperactivity disorder, combined type F90.2 [facility] [id number] [place] [address] 07625- 3412 February, Major depressive disorder, recurrent episode, unspecified severity F33.9 and Generalized anxiety disorder F41.1 [facility] [id number] [place] [address] 25559- 8256 Jan, Attention-deficit hyperactivity disorder, combined type F90.2 [facility] [id number] [place] [address] 62432- 7645 Jan, Major depressive disorder, recurrent, moderate F33.1 ; Generalized anxiety disorder F41.1 and Attention-deficit hyperactivity disorder , combined type F90.2 [facility] [id number] [place] [address] 34404- 0815 Dec, Major depressive disorder, recurrent episode, unspecified severity F33.9 ; Generalized anxiety disorder F41.1 and Attention-deficit hyperactivity disorder, predominantly hyperactive type F90.1 [facility] [id number] [place] [address] 00821- 4586 Dec, Major depressive disorder, recurrent episode, unspecified severity F33.9 and Generalized anxiety disorder F41.1 [facility] [id number] [place] [address] 72125- 7898 Dec, [facility] [id number] [place] [address] 34601- 7164 Dec, [facility] [id number] [place] [address] 31349- 8637 Dec, Major depressive disorder, recurrent episode, unspecified severity F33.9 and Generalized anxiety disorder F41.1 [facility] [id number] [place] [address] 17999- 1413 Dec, Back pain M54.9 [facility] [id number] [place] [address] 99101- 2034 17 Dec, 2016 Eustachian tube dysfunction, right H69.81 and Arthritis M19.90 [facility] [id number] [place] [address] 21286- 5242 Dec, [place] [id number] [place] [address] 26961- 8129 Dec, [place] [id number] [place] [address] 94496- 7044 07 Dec, 2016 Major depressive disorder, recurrent episode, unspecified severity F33.9 [facility] [id number] [place] [address] 28837- 9574 Oct, [facility] [address], [place] [address] Oct, Acute non-recurrent pansinusitis J01.40 and Sore throat J02.9 [facility] [address] [place] [address] 85393- 8389 Oct, Major depressive disorder, recurrent episode, unspecified severity F33.9 [place] [facility] [id number] [place] [address] 02685- 8413 Oct, Major depressive disorder, recurrent episode, unspecified severity F33.9 and Generalized anxiety disorder F41.1 [place] [id number] [place] [address] 29606- 3601 Sep, [place] [id number] [place] [address] 90849- 6291 Sep, Major depressive disorder, recurrent episode, unspecified severity F33.9 [place] [id number] [place] [address] 88401- 6211 Sep, Major depressive disorder, recurrent episode, unspecified severity F33.9 [facility] [id number] [place] [address] 42734 -4686 Sep, Sore throat J02.9 [place] [address] [place] [address] 22549- 9313 Sep, Generalized anxiety disorder F41.1 ; Major depressive disorder, recurrent episode, unspecified severity F33.9 and Attention-deficit hyperactivity disorder, predominantly hyperactive type F90.1 [place] [address] [place] [address] 62602- 9409 08 Sep, 2016 Major depressive disorder, recurrent episode, unspecified severity F33.9 and Generalized anxiety disorder F41.1 [place] [id number] [place] [address] 05063- 9610 07 Sep, 2016 Psoriatic arthritis L40.50 [place] [address] [place] [address] 03979- 1979 02 Dec, 2016 Diabetes E11.9 ; half-way 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 ; Back pain M54.9 and Encounter for immunization Z23 [facility] [id number] [place] [address] 86968- 8316 Aug, [facility] [id number] [place] [address] 22646- 0204 Aug, [facility] [address] 87246- 2259 Jul, Major depressive disorder, recurrent episode, unspecified severity F33.9 ; Attention-deficit hyperactivity disorder, predominantly hyperactive type F90.1 and Generalized anxiety disorder F41.1 [facility] [id number] [place] [address] 85451- 5969 Jul, [facility] [id number] [place] [address] 06237- 5802 Jul, Major depressive disorder, recurrent, in partial remission F33.41 and Generalized anxiety disorder F41.1 [facility] [id number] [place] [address] 25524- 0403 Jul, [facility] [id number] [place] [address] 22682- 4586 Jul, [facility] [id number] [place] [address] 16770- 5383 Jul, [facility] [id number] [place] [address] 81484- 5366 Jul, [facility] [id number] [place] [address] 06411- 2362 Jul, Diabetes E11.9 [facility] [id number] [place] [address] 60806- 2886 May, [facility] [id number] [place] [address] 68064- 5454 May, [facility] [id number] [place] [address] 42502- 2854 May, [facility] [address], [place] [address]- 5032 May, Major depressive disorder, recurrent episode, unspecified severity F33.9 ; Generalized anxiety disorder F41.1 and Attention-deficit hyperactivity disorder, predominantly hyperactive type F90.1 [place] [address], [place] [address]- 4502 May, [place] [address] [place] [address] 60603- 5420 May, Diabetes E11.9 [place] [id number] [place] [address] 85643- 5734 May, [place] [id number] [place] [address] 71213- 6159 May, [facility] [address] [place] [id number] May, Diabetes E11.9 ; Generalized anxiety disorder F41.1 and Nausea R11.0 [place] [address], [place] [address]- 1799 May, Psoriatic arthritis L40.50 and Candidiasis of female genitalia B37.3 [place] [address], [place] [address]- 8888 May, [place] [address], [place] [address]- 0271 Apr, [facility] [address], [place] [address]- 4052 Apr, [facility] [address], [place] [address]- 4856 Apr, [place] [address] [place] [address] 71932- 3064 Apr, Generalized anxiety disorder F41.1 ; Major depressive disorder, recurrent episode, unspecified severity F33.9 and Attention-deficit hyperactivity disorder, predominantly hyperactive type F90.1 [place] [address], [place] [address]- 0635 Apr, [facility] [id number] [place] [address] 42028- 5575 Apr, [facility] [id number] [place] [address] 98585- 4970 Apr, [facility] [id number] [place] [address] 77154- 3300 Apr, [facility] [id number] [place] [address] 56705- 7815 Apr, [facility] [id number] [place] [address] 75594- 6283 Mar, Attention-deficit hyperactivity disorder, predominantly hyperactive type F90.1 [facility] [id number] [place] [address] 94289- 3178 Mar, [facility] [id number] [place] [address] 28294- 7196 Mar, [facility] [id number] [place] [address] 11634- 7600 Mar, Major depressive disorder, recurrent episode, unspecified severity F33.9 and Generalized anxiety disorder F41.1 [facility] [address] [place] [address] 19385- 2433 February, Diabetes E11.9 [facility] [id number] [place] [address] 11036 -9007 February, OME (otitis media with effusion), bilateral H65.93 [facility] [id number] [place] [address] 10336- 1395 February, Back pain M54.9 [facility] [id number] [place] [address] 46296- 9965 February, [facility] [id number] [place] [address] 52047- 3164 February, Nausea R11.0 [facility] [address], [place] [address]- 2663 February, [facility] [id number] [place] [address] 77043- 6460 February, Pre-op evaluation Z01.818 ; Type 2 diabetes mellitus with hyperglycemia E11.65 and emt intermediate 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 [place] [address] [place] [address] 97912- 8658 February, [facility] [address] [place] [address] 67838 -5554 February, Right otitis externa H60.91 [place] [address] [id number] [place] [address] [phone] Jan, [place] [address] [id number] [place] [address] [phone] Jan, Psoriatic arthritis L40.50 and Arthralgia, unspecified joint M25.50 [place] [address] [place] [id number] [place] [address] [phone] Jan, Major depressive disorder, recurrent episode, unspecified severity F33.9 ; Generalized anxiety disorder F41.1 and Attention-deficit hyperactivity disorder, unspecified type F90.9 [facility] [id number] [phone] Jan, [facility] [address] [place] [id number] [place] [address] [phone] Jan, [place] [id number] [place] [address] [phone] Jan, Major depressive disorder, recurrent episode, unspecified severity F33.9 and Generalized anxiety disorder F41.1 [place] [address], [place] [address] Jan, [place] [address] [place] [id number] [place] [address] 72466- 5804 Dec, 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 I10 and Arthritis M19.90 [facility] [address], [place] [address] 1686 Dec, [facility] [id number] [place] [address] 82829- 9793 Dec, [facility] [id number] [place] [address] 12208- 5695 Dec, [facility] [id number] [place] [address] 88071- 9890 Dec, [facility] [id number] [place] [address] 43462- 4037 Dec, [facility] [id number] [place] [address] 63628- 7868 Dec, Major depressive disorder, recurrent episode, unspecified severity F33.9 and Generalized anxiety disorder F41.1 [facility] [id number] [place] [address] 04159- 5103 Dec, Diabetes E11.9 ; Back pain M54.9 ; Thrush B37.0 and 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 I10 [facility] [id number] [place] [address] 81373- 3449 Dec, Major depressive disorder, recurrent episode, unspecified severity F33.9 and Generalized anxiety disorder F41.1 [facility] [id number] [place] [address] 00377- 5793 Dec, Major depressive disorder, recurrent episode, in partial or unspecified remission 296.35 ; Major depressive disorder, recurrent episode, unspecified severity F33.9 and Generalized anxiety disorder 300.02 [facility] [id number] [place] [address] 79301- 5677 Dec, [facility] [id number] [place] [address] 17525- 0605 Oct, [facility] [id number] [place] [address] 96458- 6747 Oct, [facility] [id number] [place] [address] 68724- 0956 Oct, [facility] [id number] [place] [address] 00345- 5747 Oct, [facility] [id number] [place] [address] 33097- 1418 Oct, Major depressive disorder, recurrent, moderate F33.1 and Attention-deficit hyperactivity disorder, unspecified type F90.9 [facility] [id number] [place] [address] 59743- 8626 Oct, emt intermediate (current) use of opiate analgesic Z79.891 [place] [address] 94897- 7024 Oct, [facility] [address] 85796- 6420 Oct, [facility] [id number] [place] [address] 72287 -8224 Sep, URI (upper respiratory infection) J06.9 ; Psoriasis L40.9 ; Cough R05 and Tobacco abuse Z72.0 [facility] [id number] [place] [address] 22864- 2340 Sep, Major depressive disorder, recurrent episode, in partial or unspecified remission 296.35 ; Generalized anxiety disorder 300.02 and ADHD, 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 [facility] [id number] [place] [address] 99558 -8574 Sep, Acute sinusitis, unspecified J01.90 [facility] [address] 33038- 4104 Sep, [facility] [id number] [place] [address] 11730- 6325 Sep, Major depressive disorder, recurrent, moderate F33.1 ; Generalized anxiety disorder F41.1 and Attention-deficit hyperactivity disorder , combined type F90.2 [facility] [address], [place] [address]- 0447 Sep, [facility] [id number] [place] [address] 14664- 1918 Aug, [facility] [address], [place] [address]- 6516 Aug, [facility] [id number] [place] [address] 24682- 4889 Aug, Diabetes E11.9 and Anxiety F41.9 [facility] [id number] [place] [address] 47743- 5543 Aug, Major depressive disorder, recurrent episode, unspecified severity F33.9 and Generalized anxiety disorder F41.1 [facility] [id number] [place] [address] 31638- 6167 Aug, [facility] [id number] [place] [address] 39768- 3949 Jul, [facility] [id number] [place] [address] 15611- 4515 Jul, [facility] [id number] [place] [address] 11924- 2685 Jul, [facility] [address], [place] [address]- 1569 Jul, [facility] [address], [place] [address]- 9839 Jul, Major depressive disorder, recurrent episode, in partial or unspecified remission 296.35 ; Generalized anxiety disorder 300.02 and ADHD, 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 [facility] [address], [place] [address]- 2701 10 Jul, 2015 Major depressive disorder, recurrent episode, in partial or unspecified remission 296.35 ; Generalized anxiety disorder 300.02 and ADHD, 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 [facility] [id number] [place] [address] 48141- 4875 Jul, [facility] [address], [place] [address]- 6702 May, [facility] [id number] [place] [address] 28526- 9203 May, [facility] [id number] [place] [address] 73274- 8565 May, DM w/o complication type II 250.00 ; Dyspepsia 536.8 and PAD (peripheral artery disease) 443.9 [facility] [address] [place] [address] 93826- 9932 May, Major depressive disorder, recurrent episode, moderate 296.32 and Generalized anxiety disorder 300.02 [facility] [id number] [place] [address] 87449- 2738 May, [facility] [id number] [place] [address] 78698- 7589 May, Major depressive disorder, recurrent episode, moderate 296.32 and Generalized anxiety disorder 300.02 [facility] [id number] [place] [address] 13589- 3203 May, [facility] [address], [place] [address]- 2405 Apr, [facility] [id number] [place] [address] 04615- 3930 Apr, Major depressive disorder, recurrent episode, moderate 296.32 and Generalized anxiety disorder 300.02 [facility] [address], [place] [address]- 0333 Apr, [facility] [id number] [place] [address] 36172- 2862 Apr, [facility] [address], [place] [address]- 3273 Apr, Generalized anxiety disorder 300.02 ; ADHD, 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 and Depression, major, recurrent, moderate 296.32 [facility] [address], [place] [address]- 0184 Apr, Major depressive disorder, recurrent episode, moderate 296.32 and Generalized anxiety disorder 300.02 [facility] [id number] [place] [address] [id number]- 5138 Apr, [facility] [address] [id number] [place] [address] 449899- 5332 Apr, [facility] [id number] [place] [address] 38920- 9662 Mar, [facility] [address] [id number] [place] [address] 06442- 0382 Mar, Major depressive disorder, recurrent episode, moderate 296.32 and Generalized anxiety disorder 300.02 [facility] [address] [id number] [place] [address] 72894- 4059 Mar, ADHD, 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 ; Major depressive disorder, recurrent episode, severe, without mention of psychotic behavior 296.33 and Generalized anxiety disorder 300.02 [facility] [address] [id number] [place] [address] 57033- 6486 February, Major depressive disorder, recurrent episode, moderate 296.32 and Generalized anxiety disorder 300.02 [facility] [id number] [place] [address] 59619- 1431 February, [facility] [id number] [place] [address] 20632- 1467 February, [facility] [id number] [place] [address] 42053- 1715 February, [facility] [id number] [place] [address] 54437- 2675 February, [facility] [address], [place] [address]- 4574 February, DM w/o complication type II 250.00 ; Impacted cerumen 380.4 ; Essential hypertension, benign 401.1 and Irritable colon 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.1 [facility] [address] [facility] [id number] [place] [address]- 4036 February, [facility] [address] [facility] [id number] [place] [address]- 0586 February, [facility] [address] [facility] [id number] [place] [address]- 1807 Jan, [facility] [address] [facility] [id number] [place] [address]- 4103 Dec, [facility] [address] [facility] [id number] [place] [address]- 3382 Dec, [facility] [address] [facility] [id number] [place] [address]- 8484 Dec, [facility] [address], [place] [address]- 1270 Dec, [facility] [address] [facility] [id number] [place] [address]- 8886 Dec, [facility] [address] [address]- 6259 Dec, [facility] [address] [address]- 3733 Dec, [facility] [address], [place] [address]- 3242 Dec, [facility] [address] [facility] [id number], [place] [address]- 6832 Dec, [facility] [address] [facility] [id number], [place] [address]- 0786 Dec, [facility] [address] [facility] [id number] [address]- 6488 Dec, [facility] [id number] 7782 Dec, [facility] [place] [facility] [address] [id number] [place] [address]- 9552 Dec, [facility] [place] [facility] [address] [id number] [place] [address]- 7074 Dec, [facility] [place] [facility] [address] [id number] [place] [address]- 6405 Dec, [facility] [place] [facility] [address] [id number] [place] [address]- 6214 Dec, [facility] [place] [facility] [address] [id number] [place] [address]- 7919 Oct, [facility] [place] [facility] [address] [id number] [place] [address]- 0093 Oct, [facility] [place] [facility] [address] [id number] [place] [address]- 1469 Oct, [facility] [place] [facility] [address] [id number] [place] [address]- 1701 Oct, [facility] [place] [facility] [address] [id number] [place] [address]- 2542 Oct, [facility] [place] [facility] [address] [id number] [place] [address]- 5697 Oct, [facility] [place] [facility] [address] [id number] [place] [address]- 8694 Oct, [facility] [place] [facility] [address] [id number] [address]- 3048 Oct, [facility] [place] [facility] [address] [id number] [place] [address]- 3358 Oct, [facility] [place] [facility] [address] [id number] [place] [address]- 2849 Oct, [facility] [place] [facility] [address] [id number] [place] [address]- 5590 Oct, [facility] [place] [facility] [address] [id number] [place] [address]- 3624 Sep, [facility] [place] [facility] [address] [id number] [place] [address]- 6605 Sep, [facility] [place] [facility] [address] [id number] [place] 9434 Sep, [facility] [place] [facility] [address] [id number] [place] [address]- 0556 Sep, [facility] [place] [facility] [address] [id number] [place] [address]- 1171 Sep, [facility] [place] [facility] [address] [id number] [place] [address]- 5897 Sep, [facility] [place] [facility] [address] [id number] [place] [address]- 1656 Sep, [facility] [place] [facility] [address] [id number] [place] [address]- 6103 Sep, [facility] [place] [facility] [address] [id number] [place] [address]- 4676 Aug, [facility] [place] [facility] [address] [id number] [place] [address]- 1986 Aug, [facility] [place] [facility] [address] [id number] [place] [address]- 2495 Aug, [facility] [place] [facility] [address] [id number] [place] [address]- 1682 Aug, [facility] [place] [facility] [address] [id number] [place] [address]- 8988 Aug, [facility] [place] [facility] [address] [id number] [place] [address]- 5541 Aug, [facility] [place] [facility] [address] [id number] [place] [address]- 9189 Aug, [facility] [place] [facility] [address] [id number] [place] [address]- 6864 Aug, [facility] [place] [facility] [address] [id number] [place] [address]- 3702 Aug, [facility] [place] [facility] [address] [id number] [place] [address]- 5097 Aug, [facility] [place] [facility] [address] [id number] [place] 0006 Aug, [facility] [place] [facility] [address] [id number] [place] [address]- 7783 Aug, [facility] [place] [facility] [address] [id number] [place] [address]- 6229 Aug, [facility] [place] [facility] [address] [id number] [place] [address]- 3228 Aug, [facility] [place] [facility] [address] [id number] [place] [address]- 4605 Jul, [facility] [place] [facility] [address] [id number] [place] [address]- 6116 Jul, [facility] [place] [facility] [address] [id number] [place] [address]- 8907 Jul, [facility] [place] [facility] [address] [id number] [place] [address]- 1069 Jul, [facility] [place] [facility] [address] [id number] [place] [address]- 4900 Jul, [facility] [place] [facility] [address] [id number] [place] [address]- 2605 Jul, [facility] [place] [facility] [address] [id number] [place] [address]- 0777 Jul, [facility] [place] [facility] [address] [id number] [place] [address]- 9387 Jul, [facility] [place] [facility] [address] [id number] [place] [address]- 5565 Jul, [facility] [place] [facility] [address] [id number] [place] [address]- 3763 Jul, [facility] [place] [facility] [address] [id number] [place] [address]- 8581 Jul, [facility] [place] [facility] [address] [id number] [place] [address]- 2034 Jul, [facility] [place] [facility] [address] [id number] [place] [address]- 9336 Jul, [facility] [place] [facility] [address] [id number] [place] [address]- 5155 Jul, [facility] [place] [facility] [address] [id number] [place] [address]- 7214 May, [facility] [place] [facility] [address] [id number] [place] [address]- 6243 May, [facility] [place] [facility] [address] [id number] [place] [address]- 7738 May, [facility] [place] [facility] [address] [id number] [place] [address]- 8895 May, [facility] [place] [facility] [address] [id number] [place] [address]- 9329 May, [facility] [place] [facility] [address] [id number] [place] [address]- 2275 May, [facility] [place] [facility] [address] [id number] [place] [address]- 4219 May, [facility] [place] [facility] [address] [id number] [place] [address]- 8783 May, [facility] [place] [facility] [address] [id number] [place] [address]- 0154 May, [facility] [place] [facility] [address] [id number] [place] [address]- 6213 May, [facility] [place] [facility] [address] [id number] [place] [address]- 6222 May, [facility] [place] [facility] [address] [id number] [place] [address]- 4186 May, [facility] [place] [facility] [address] [id number] [place] [address]- 8846 Apr, [facility] [place] [facility] [address] [id number] [place] [address]- 8738 Apr, [facility] [place] [facility] [address] [id number] [place] [address]- 7108 Apr, [facility] [place] [facility] [address] [id number] [place] [address]- 1370 Apr, [facility] [place] [facility] [address] [id number] [place] [address]- 8437 Apr, [facility] [place] [facility] [address] [id number] [place] [address]- 2550 Apr, [facility] [place] [facility] [address] [id number] [place] [address]- 2605 Mar, [facility] [place] [facility] [address] [id number] [place] [address]- 8510 Mar, [facility] [place] [facility] [address] [id number] [place] [address]- 5042 Mar, [facility] [place] [facility] [address] [id number] [place] [address]- 0010 Mar, [facility] [place] [facility] [address] [id number] [place] [address]- 6737 Mar, [facility] [place] [facility] [address] [id number] [place] [address]- 7001 Mar, [facility] [place] [facility] [address] [id number] [place] [address]- 5991 Mar, [facility] [place] [facility] [address] [id number] [place] [address]- 8501 Mar, [facility] [place] [facility] [address] [id number] [place] [address]- 6308 Mar, [facility] [place] [facility] [address] [id number] [place] [address]- 2486 Mar, [facility] [place] [facility] [address] [id number] [place] [address]- 7732 Mar, [facility] [place] [facility] [address] [id number] [place] [address]- 6053 Mar, [facility] [place] [facility] [address] [id number] [place] [address]- 7738 Mar, [facility] [place] [facility] [address] [id number] [place] [address]- 4482 February, [facility] [place] [facility] [address] [id number] [place] [address]- 3200 February, [facility] [place] [facility] [address] [id number] [place] [address]- 0912 February, [facility] [place] [facility] [address] [id number] [place] [address]- 6159 February, [facility] [place] [facility] [address] [id number] [place] [address]- 7889 February, [facility] [place] [facility] [address] [id number] [place] [address]- 4718 February, [facility] [place] [facility] [address] [id number] [place] [address]- 4299 February, [facility] [place] [facility] [address] [id number] [place] [address]- 1339 February, [facility] [place] [facility] [address] [id number] [place] [address]- 5888 February, [facility] [place] [facility] [address] [id number] [place] [address]- 1120 February, [facility] [place] [facility] [address] [id number] [place] [address]- 1915 February, [facility] [place] [facility] [address] [id number] [place] [address]- 5258 February, [facility] [place] [facility] [address] [id number] [place] [address]- 7076 February, [facility] [place] [facility] [address] [id number] [place] [address]- 7239 February, [facility] [place] [facility] [address] [id number] [place] [address]- 3345 Jan, [facility] [place] [facility] [address] [id number] [place] [address]- 8234 Jan, [facility] [place] [facility] [address] [id number] [place] [address]- 9139 Jan, [facility] [place] [facility] [address] [id number] [place] [address]- 0574 Jan, [facility] [place] [facility] [address] [id number] [place] [address]- 0717 Jan, [facility] [place] [facility] [address] [id number] [place] [address]- 3702 Jan, [facility] [place] [facility] [address] [id number] [place] [address]- 2858 Jan, [facility] [place] [facility] [address] [id number] [place] [address]- 0443 Jan, [facility] [place] [facility] [address] [id number] [place] [address]- 6195 Jan, [facility] [place] [facility] [address] [id number] [place] [address]- 8876 Dec, [facility] [place] [facility] [address] [id number] [place] [address]- 1083 Dec, [facility] [place] [facility] [address] [id number] [place] [address] Dec, [facility] [place] [facility] [address] [id number] [place] [address] Dec, [facility] [place] [facility] [address] [id number] [place] [address] Dec, [facility] [place] [facility] [address] [id number] [place] [address] Dec, [facility] [place] [facility] [address] [id number] [place] [address] Dec, [facility] [place] [facility] [address] [id number] [place] [address] Dec, [facility] [place] [facility] [address] [id number] [place] [address] Dec, [facility] [place] [facility] [address] [id number] [place] [address] Dec, [facility] [place] [facility] [address] [id number] [place] [address] 14 Dec, 2013 [facility] [place] [facility] [address] [id number] [place] [address] Dec, [facility] [place] [facility] [address] [id number] [place] [address] Dec, [facility] [place] [facility] [address] [id number] [place] [address] Dec, [facility] [place] [facility] [address] [facility] [id number] [place] [address] Dec, [facility] [place] [facility] [address] [id number] [place] [address] 8067 Dec, [facility] [place] [facility] [address] [id number] [place] [address] Dec, [facility] [place] [facility] [address] [id number] [id number] [address] Oct, [facility] [place] [facility] [address] [id number] [place] Oct, [facility] [place] [facility] [address] [id number] [place] [address] Oct, [facility] [place] [facility] [address] [id number] [place] [address] Oct, [facility] [place] [facility] [address] [id number] [place] [address] Oct, [facility] [place] [facility] [address] [id number] [place] [address]- [address] Oct, [facility] [place] [facility] [address] [id number] [place] [address] Oct, [facility] [place] [facility] [address] [id number] [place] [address] Oct, [facility] [place] [facility] [address] [id number] [place] [address] Oct, [facility] [place] [facility] [address] [id number] [place] [address] Oct, [facility] [place] [facility] [address] [id number], [place] [address] Oct, [facility] [place] [facility] [address] [id number] [place] [address] Oct, [facility] [place] [facility] [address] [id number] [place] [address] Oct, [facility] [place] [facility] [address] [id number], [place] [address] Oct, [facility] [place] [facility] [address] [id number], [place] [address] Sep, [facility] [place] [facility] [address] [id number] [place] [address] Sep, [facility] [place] [facility] [address] [id number] [place] [address] Sep, [facility] [place] [facility] [address] [id number] [place] [address] Sep, [facility] [place] [facility] [address] [id number] [place] [address] 27 Sep, 2012 [facility] [address] [id number] [place] [address] 27 Sep, 2012 [facility] [address] [id number] [place] [address] 27 Sep, 2013 [facility] [address] [id number] [place] [address] 27 Sep, 2013 [facility] [address] [id number] [place] [address] 27 Sep, 2013 [facility] [address] [id number] [place] [address] 27 Sep, 2013 [facility] [address] [id number] [place] [address] 16 Sep, [address] [facility] [address] [id number] [place] [address] 16 Sep, 2013 [facility] [address] [id number] [place] [address] 13 Sep, 2013 [facility] [address] [id number] [place] [address] 13 Sep, 2013 [facility] [address] [id number] [place] [address] 10 Sep, [address] [facility] [address] [id number] [place] [address] 10 Sep, 2013 [facility] [facility] [address] [id number] [place] [address] 02 Sep, 2013 [facility] [place] [facility] [address] [id number] [place] [address] 02 Sep, 2013 [facility] [place] [facility] [address] [id number] [place] [address] 15 Aug, 2013 [facility] [place] [facility] [address] [id number] [place] [address] 40[address] 15 Aug, 2013 [facility] [place] [facility] [address] [id number] [place] [address] 7885 16 Jul, 2012 [facility] [place] [facility] [address] [id number] [place] [address] 4[address] 16 Jul, 2013 [facility] [place] [facility] [address] [id number] [place] [address] 67[address] 14 Jul, 2013 [facility] [place] [facility] [address] [id number] [place] [address] 26[address] 14 Jul, 2013 [facility] [address] [id number] [place] [address] 110[address] 08 Jul, 2013 [facility] [place] [facility] [address] [id number] [place] [address] 20 Jul, 2012 [facility] [place] [facility] [address] [id number] [place] [address] 3864 19 Jul, 2012 [facility] [place] [facility] [address] [id number] [place] [address] 3570 13 Jul, 2012 [facility] [place] [facility] [address] [id number] [place] [address] 3735 08 Jul, 2012 [facility] [place] [facility] [address] [id number] [place] [address]- 2357 06 Jul, 2012 [facility] [facility] [address] [id number] [place] [address]- 1088 06 Jul, 2012 [facility] [address] [id number], [place] [address] 06 Jul, 2012 [facility] [place] [facility] [address] [id number] [place] [address]- 125[address] 03 Jul, 2012 [facility] [place] [facility] [address] [id number] [place] [address]- 0627 29 May, 2013 [facility] [place] [facility] [address] [id number] [place] [address]- 9382 26 May, 2013 [facility] [facility] [address] [id number] [place] [address]- 9871 May, [facility] [address] [id number] [place] [address] 4[address] May, [facility] [address] [id number] [place] [address] Apr, [facility] [address] [id number] [place] [address]- 0148 Apr, [facility] [address] [id number] [place] [address] 8[address] Apr, [facility] [address] [id number] [place] [address]- 8381 Mar, [facility] [address] [id number] [place] [address]- 5992 Mar, [facility] [address] [id number] [place] [address]- 0257 Mar, [facility] [address] [id number] [place] [address]- 7614 Mar, [facility] [address] [id number] [place] [address]- 2078 February, [facility] [address] [id number] [place] [address] 7895 February, [facility] [address] [id number] [place] [address] 3067 Jan, [facility] [address] [id number] [place] [address]- 6215 Dec, [facility] [address] [id number] [place] [address] 0336 Dec, [facility] [address] [id number] [place] [address]- 0666 Dec, [facility] [address] [id number] [place] [address]- 6698 Dec, [facility] [address] [id number] [place] [address]- 5223 28 Dec, 2012 [facility] [address] [id number] [place] [address]- 1046 27 Dec, 2012 [facility] [address] [id number] [place] [address] 2546 26 Dec, 2012 [facility] [address] [id number] [place] [address] 2286 25 Dec, 2012 [facility] [address] [id number] [place] [address]- 6713 22 Dec, 2012 [facility] [address] [id number] [place] [address] 7516 15 Dec, 2012 [facility] [address] [id number] [place] [address]- 5874 14 Dec, 2012 [facility] [address] [id number] [place] [address] 1692 Oct, [facility] [address] [id number] [place] [address] 7388 Oct, [facility] [address] [id number] [place] [address] 0079 Oct, [facility] [address] [id number] [place] [address] 2260 Oct, [facility] [address] [id number] [place] [address]- 8846 Sep, [facility] [address] [id number] [place] [address] 2633 Sep, [facility] [address] [id number] [place] [address] Sep, [facility] [address] [id number] [place] [address]- 0315 Sep, [facility] [address] [id number] [place] [address]- 2546 Sep, [facility] [address] [id number] [place] [address] 8099 Sep, [facility] [address] [id number] [place] [address] 3761 Aug, [facility] [address] [id number] [place] [address]- 0142 Aug, [facility] [address] [id number] [place] [address]- 3835 Aug, [facility] [address] [id number] [place] [address] 2718 Aug, [facility] [address] [id number] [place] [address]- 5382 Aug, [facility] [address] [id number] [place] [address]- 8268 Aug, [facility] [address] [id number] [place] [address] 4313 Jul, [facility] [address] [id number] [place] [address] 7460 Jul, [facility] [address] [id number] [place] [address] 0962 Jul, [facility] [address] [id number], [place] [address] 375[address] Jul, [facility] [address] [id number], [place] [address] 4584 Jul, [facility] [address] [id number] [place] [address]- 7151 Jul, [facility] [address] [id number] [place] [address] 7530 Jul, [facility] [address] [id number] [place] [address]- 4283 Jul, [facility] [address] [id number] [place] [address] 8155 Jul, [facility] [address] [id number] [place] [address] 3126 Jul, [facility] [address] [id number] [place] [address] 2546 Jul, [facility] [address] [id number] [place] [address]- 5546 May, [facility] [address] [id number] [place] [address]- 4058 May, [facility] [address] [id number] [place] [address]- 6003 May, [facility] [address] [id number] [place] [address]- 6928 May, [facility] [address] [id number] [place] [address]- 8276 Apr, [facility] [address] [id number] [place] [address]- 6656 Apr, [facility] [address] [id number] [place] [address]- 2199 Apr, [facility] [address] [id number] [place] [address]- 6537 Apr, [facility] [address] [id number] [place] [address] 2541 Apr, [facility] [address] [id number] [place] [address] 2542 Apr, [facility] [address] [id number] [place] [address]- 9796 Apr, [facility] [address] [id number] [place] [address]- 2546 Apr, [facility] [address] [id number] [place] [address] Mar, [facility] [address] [id number] [place] [address]- 3125 27 Mar, 2012 [facility] [address] [id number] [place] [address]- 0594 20 Mar, 2012 [facility] [address] [id number] [place] [address]- 9991 15 Mar, 2012 [facility] [address] [id number] [place] [address]- 0338 14 Mar, 2012 [facility] [address] [id number] [place] [address]- 4401 12 Mar, 2012 [facility] [address] [id number] [place] [address]- 9948 12 Mar, 2012 [facility] [address] [id number] [place] [address]- 8741 Mar, [facility] [address] [id number] [place] [address]- 0788 08 Mar, 2012 [facility] [address] [id number] [place] [address]- 2879 30 Feb, 2012 [facility] [address] [id number] [place] [address]- 1589 February, [facility] [address] [id number] [place] [address]- 8084 February, [facility] [address] [id number] [place] [address]- 5720 10 Feb, 2012 [facility] [address] [id number] [place] [address]- 3085 13 Jan, 2012 [facility] [address] [id number] [place] [address]- 8359 03 Jan, 2012 [facility] [address] [id number] [place] [address]- 0382 28 Dec, 2011 [facility] [address] [id number], [place] [address]- 8725 15 Dec, 2011 [facility] [address] [id number] [place] [address]- 1586 14 Dec, 2011 [facility] [address] [id number] [place] [address]- 7896 07 Dec, 2011 [facility] [address] [id number] [place] [address]- 1546 28 Dec, 2011 [facility] [address] [id number] [place] [address]- 8896 27 Dec, 2011 [facility] [address] [id number] [place] [address]- 6676 Dec, [facility] [address] [id number] [place] [address]- 4896 Dec, [facility] [address] [facility] [id number] [place] [address]- 8384 07 Dec, 2011 [facility] [address] [id number] [place] [address]- 0171 07 Dec, 2011 [facility] [address] [id number] [place] [address]- 4828 07 Dec, 2011 [facility] [address] [facility] [id number] [place] [address]- 9453 Dec, [facility] [address] [id number] [place] [address]- 3182 Oct, [facility] [address] [id number] [place] [address]- 4176 Oct, [facility] [address] [id number] [place] [address]- 5944 Oct, [facility] [address] [id number] [place] [address]- 2083 Oct, [facility] [address] [facility] [id number] [place] [address]- 8241 Oct, [facility] [address] [id number] [place] [address]- 3769 Oct, [facility] [address] [id number] [place] [address]- 3042 Oct, [facility] [address] [id number] [place] [address] Oct, [facility] [address] [id number] [place] [address]- 1350 Sep, [facility] [address] [id number] [place] [address]- 1301 Sep, [facility] [facility] [address] [id number] [place] [address]- 5288 Sep, [facility] [facility] [address] [id number] [place] [address]- 9907 Aug, [facility] [address] [id number] [place] [address]- 6219 Aug, [facility] [address] [id number] [place] [address]- 6873 Aug, [facility] [address] [id number], [place] [address]- 7622 Aug, [facility] [address] [id number], [place] [address]- 2801 Aug, [facility] [address] [id number], [place] [address]- 7092 Jul, [facility] [address] [id number] [place] [address]- 9365 Jul, [facility] [address] [id number], [place] [address]- 7168 May, [facility] [address] [id number], [place] [address]- 8976 Dec, [facility] [address] [id number] [place] [address]- 4041 Oct, [facility] [address] [facility] [id number] [place] [address]- 2440 Sep, [facility] [address] [facility] [id number] [place] [address]- 6163 Sep, [facility] [address] [facility] [id number] [place] [address]- 9620 Sep, IMMUNIZATIONS No Known Immunizations SOCIAL HISTORY Never Assessed REASON FOR VISIT adderall 07/22/2017 PLAN OF CARE VITAL SIGNS MEDICATIONS Medication Instructions Dosage Frequency Start Date End Date Duration Status Adderall 30 MG Orally Once a day in the morning 1 tablet Jul, 28 days Active RESULTS No Results PROCEDURES [...] reflux Surgical History Left Knee SOA-Dr. Melendrez-[facility] 05/19/16 Surgical History Colonoscopy- Dr Castanon 01/26/2017 Hospitalization History surgeries Hospitalization History Left Knee SOA--Dr. Melendrez--[facility] Hospitalization History Septic shock, UTI-[facility] 07/27/17 Hospitalization History Multiple falls, hyperglycemia, sepsis 07/2017 Hospitalization History Alcoholism, depression, DM, Falls-[facility] 08/23/17 Hospitalization History COPD exacerbation-[facility] 11/25/17 Hospitalization History COPD exacerbation-[facility] 11/28/17
--- OUTSIDE RECORDS SUMMARY | 2018-05-10 03:40 | XMS REPORT ---
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 Active 193659470 Problem Psoriatic arthritis L40.50 Active 538575646 Problem Psychophysiological insomnia F51.04 Active 62137801 Problem Other specified 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 Active 258456190 Problem Obesity (BMI 30-39.9) E66.9 Active 018792892 Problem Major depressive disorder, recurrent, moderate F33.1 Active 95084007 Problem Essential hypertension I10 Active 83751924 Problem Type 2 diabetes mellitus with hyperglycemia E11.65 Active 132533112067604 Problem Alcoholism F10.20 Active 5144053 Problem Frequent falls R29.6 Active 307383409 Problem Benzodiazepine abuse F13.10 Active 904610018 Problem PTSD (post-traumatic stress disorder) F43.10 Active 57518074 Problem Eating disorder F50.9 Active 70589273 Problem Attention-deficit hyperactivity disorder, combined type F90.2 Active 54856050 Problem COPD exacerbation J44.1 Active 248557969 Problem Anxiety F41.9 Active 38058802 Problem Decubitus ulcer of left buttock, stage 2 L89.322 Active 439870417 Problem BMI 40.0-44.9, adult Z68.41 Active 562985816 Problem Alcohol abuse F10.10 Active 31727227 Problem Pneumonia due to methicillin resistant Staphylococcus aureus, unspecified laterality, unspecified part of lung J15.212 Active 644815271070414 Problem Type 2 diabetes mellitus with unspecified complications E11.8 Active 37510896 Problem Attention-deficit hyperactivity disorder, predominantly hyperactive type F90.1 Active 839023043 Problem Type 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 Active 35580073 Problem Ulcer of right foot, unspecified ulcer stage L97.519 Active 81959861 Problem Attention deficit R41.840 Active 21670370 Problem Mental disorder, not otherwise specified F99 Active 59371240 Problem Insomnia due to other mental disorder F51.05 Active 33853153 ALLERGIES No Information ENCOUNTERS Encounter Location Date Diagnosis [place] [id number] [place] [address] 90563- 2983 May, [place] [address] 8[address]13- 6123 Apr, [place] [address] 39878- 1251 Apr, [place] [id number] [place] [address] 95877- 1749 Mar, Major depressive disorder, recurrent episode, unspecified severity F33.9 ; Generalized anxiety disorder F41.1 and Eating disorder F50.9 [place] [id number] [place] [address] 14903- 2636 Mar, Medicare annual wellness visit, initial Z00.00 ; Type 2 diabetes mellitus with hyperglycemia E11.65 ; BMI 40.0-44.9, adult Z68.41 ; COPD exacerbation J44.1 ; Major depressive disorder, recurrent, moderate F33.1 ; Generalized anxiety disorder F41.1 ; 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 I10 ; Arthritis M19.90 and 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 [place] [id number] [place] [address] 40026- 6425 February, Yeast infection B37.9 [place] [id number] [place] [address] 49393- 5069 February, [place] [address] 70792- 2540 Jan, [facility] [address] [place] [address] 35310- 8955 Dec, Major depressive disorder, recurrent episode, unspecified severity F33.9 ; Generalized anxiety disorder F41.1 and Eating disorder F50.9 [facility] [id number] [place] [address] 99788- 9321 Dec, [facility] [address] 82201- 8752 Dec, [facility] [id number] [place] [address] 21667- 9024 Dec, [facility] [id number] [place] [address] 91983- 0154 Dec, Increased urinary frequency R35.0 ; Frequent falls R29.6 ; Decubitus ulcer of left buttock, stage 2 L89.322 ; Benzodiazepine abuse F13.10 ; BMI 40.0-44.9, adult Z68.41 and Yeast infection B37.9 [facility] [id number] [place] [address] 17613- 4150 Dec, [facility] [id number] [place] [address] 65712- 3993 Dec, [facility] [id number] [place] [address] 33917- 8236 Dec, Increased urinary frequency R35.0 [facility] [id number] [place] [address] 96624- 8524 Dec, Increased urinary frequency R35.0 [facility] [id number] [place] [address] 86448- 0877 Dec, Generalized anxiety disorder F41.1 ; Major depressive disorder, recurrent, moderate F33.1 and Psychophysiological insomnia F51.04 [facility] [address] [place] [address] 38957- 7858 Dec, BMI 40.0-44.9, adult Z68.41 ; Type 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 ; Pneumonia due to methicillin resistant Staphylococcus aureus, unspecified laterality, unspecified part of lung J15.212 and COPD exacerbation J44.1 [facility] [address] [address] Dec, [facility] [id number] [place] [address] [id number] Dec, [facility] [address] [id number] Oct, [facility] [id number] [place] [address] 16466 -8812 Oct, Frequency of urination R35.0 ; Bronchitis J40 and BMI 40.0- 44.9, adult Z68.41 [facility] [id number] [place] [address] [id number] Oct, [place] [address] [place] [address] 60691- 1506 Oct, [place] [id number] [place] [address] 54542- 7615 Oct, BMI 40.0-44.9, adult Z68.41 ; Type 2 diabetes mellitus with hyperglycemia E11.65 ; Essential hypertension I10 ; Vaginal yeast infection B37.3 ; Anxiety F41.9 and Alcoholism F10.20 [place] [address] [address]- 3565 Oct, [place] [address] [place] [address] 61577- 2979 Oct, [place] [id number] [place] [address] 26922- 3278 Sep, [place] [address] [place] [address] 41092- 3687 Sep, Major depressive disorder, recurrent episode, unspecified severity F33.9 ; Generalized anxiety disorder F41.1 and Eating disorder F50.9 [place] [address] [place] [address] 44038- 3059 14 Sep, 2017 Major depressive disorder, recurrent, moderate F33.1 ; Type 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 ; Alcohol abuse F10.10 ; Obesity (BMI 30-39.9) E66.9 and Psychophysiological insomnia F51.04 [place] [id number] [place] [address] 28362- 9697 Sep, Diabetes E11.9 and Generalized anxiety disorder F41.1 [place] [id number] [place] [address] 27631- 2462 Sep, Major depressive disorder, recurrent episode, unspecified severity F33.9 ; Generalized anxiety disorder F41.1 and Eating disorder F50.9 [place] [id number] [place] [address] 23018- 4124 Sep, [place] [id number] [place] [address] 87204- 1843 Aug, [place] [id number] [place] [address] 92717- 2661 Aug, Insomnia due to other mental disorder F51.05 ; Mental disorder, not otherwise specified F99 ; Attention deficit R41.840 ; Ulcer of right foot, unspecified ulcer stage L97.519 ; Cough R05 ; Diabetes E11.9 ; Sore in mouth K13.79 ; Generalized anxiety disorder F41.1 ; Major depressive disorder , recurrent episode, unspecified severity F33.9 and BMI 40.0-44.9, adult Z68.41 [place] [address] [place] [address] 92841- 2125 Aug, [place] [id number] [place] [address] 80731- 3012 Aug, [place] [id number] [place] [address] 12649- 3559 Aug, [place] [id number] [place] [address] 17704- 9156 Aug, [facility] [address] [facility] [id number] [address]- 8546 Aug, Diabetes E11.9 [facility] [address] [facility] [place] [id number] Aug, Falling R29.6 ; Alcohol abuse F10.10 ; Major depressive disorder, recurrent episode, unspecified severity F33.9 ; 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 I10 ; Type 2 diabetes mellitus with unspecified complications E11.8 and residential 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 [facility] [address] [id number] [id number] Aug, [facility] [address] [place] [id number] Aug, Alcohol abuse F10.10 ; Major depressive disorder, recurrent episode, unspecified severity F33.9 ; Generalized anxiety disorder F41.1 ; residential 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 ; Psoriatic arthritis L40.50 and Diabetes E11.9 [facility] [address] [id number] [id number] Aug, [facility] [address] [id number] [id number] Jul, [facility] [id number] [address] 2626 Jul, [facility] [id number] [address]- 9448 Jul, Generalized anxiety disorder F41.1 [facility] [id number] [address]- 6981 Jul, [facility] [address] [facility] [id number] [address]- 3651 Jul, [facility] [id number] [address] [address]01 Jul, Generalized anxiety disorder F41.1 ; Major depressive disorder, recurrent episode, unspecified severity F33.9 ; PTSD (post-traumatic stress disorder) F43.10 ; Eating disorder F50.9 and Attention-deficit hyperactivity disorder, predominantly hyperactive type F90.1 [facility] [address] [place] [address] 86201- 4610 Jul, [facility] [id number] [place] [address] 14585- 6959 Jul, [facility] [id number] [place] [address] 40611- 6920 Jul, residential 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 ; Type 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 ; Urinary tract infection, site not specified N39.0 ; Sepsis, unspecified organism A41.9 and Essential hypertension I10 [facility] [id number] [place] [address] [id number] Jul, [facility] [id number] [place] [address] 15094 -0074 Jul, [facility] [id number] [place] [address] 52882- 6525 Jul, Generalized anxiety disorder F41.1 [place] [id number] [place] [address] 84300- 6325 Jul, [facility] [id number] [place] [address] 66118- 3662 Jul, Generalized anxiety disorder F41.1 [facility] [id number] [place] [address] 54351- 1817 May, Generalized anxiety disorder F41.1 ; Major depressive disorder, recurrent episode, unspecified severity F33.9 ; PTSD (post-traumatic stress disorder) F43.10 ; Eating disorder F50.9 and Attention-deficit hyperactivity disorder, predominantly hyperactive type F90.1 [facility] [address] [place] [address] 01229- 0901 May, Diabetes E11.9 [facility] [id number] [place] [address] 92462 -1581 14 May, 2017 Acute non-recurrent maxillary sinusitis J01.00 and Diabetes E11.9 [facility] [address] [address]- 8721 May, [facility] [address] [address]- 8960 May, [facility] [address] [address]- 9093 May, Generalized anxiety disorder F41.1 [facility] [address] [address]- 8394 Apr, [facility] [id number] [place] [address] 09600- 4577 Apr, [facility] [address] [place] [address] 00348- 2547 Apr, [facility] [address] [place] [address] 68377- 5854 Apr, Generalized anxiety disorder F41.1 ; Major depressive disorder, recurrent episode, unspecified severity F33.9 ; PTSD (post-traumatic stress disorder) F43.10 ; Eating disorder F50.9 and Attention-deficit hyperactivity disorder, predominantly hyperactive type F90.1 [facility] [address] [address]- 4110 Apr, Major depressive disorder, recurrent, moderate F33.1 [facility] [address] [address]- 8017 Mar, Diabetes E11.9 [facility] [address] [address]- 8118 Mar, Attention-deficit hyperactivity disorder, combined type F90.2 [facility] [address] [address]- 4070 Mar, [facility] [address] [address]- 0229 Mar, Diabetes E11.9 [facility] [id number] [place] [address] 95347- 1344 Mar, residential 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 ; Psoriatic arthritis L40.50 ; Other specified 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 and 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 I10 [place] [id number] [place] [address] 41726- 8055 February, Back pain M54.9 [place] [address] 84771- 8422 February, Attention-deficit hyperactivity disorder, combined type F90.2 [place] [id number] [place] [address] 62747- 2993 February, Major depressive disorder, recurrent episode, unspecified severity F33.9 and Generalized anxiety disorder F41.1 [place] [id number] [place] [address] 12379- 6621 Jan, Attention-deficit hyperactivity disorder, combined type F90.2 [place] [id number] [place] [address] 59902- 1038 Jan, Major depressive disorder, recurrent, moderate F33.1 ; Generalized anxiety disorder F41.1 and Attention-deficit hyperactivity disorder , combined type F90.2 [place] [id number] [place] [address] 18244- 7571 Dec, Major depressive disorder, recurrent episode, unspecified severity F33.9 ; Generalized anxiety disorder F41.1 and Attention-deficit hyperactivity disorder, predominantly hyperactive type F90.1 [place] [id number] [place] [address] 61880- 1652 Dec, Major depressive disorder, recurrent episode, unspecified severity F33.9 and Generalized anxiety disorder F41.1 [place] [id number] [place] [address] 13452- 8292 Dec, [place] [id number] [place] [address] 78027- 7070 Dec, [place] [address] 23849- 1266 Dec, Major depressive disorder, recurrent episode, unspecified severity F33.9 and Generalized anxiety disorder F41.1 [facility] [id number] [place] [address] 11267- 0748 Dec, Back pain M54.9 [facility] [id number] [place] [address] 14007- 3726 17 Dec, 2016 Eustachian tube dysfunction, right H69.81 and Arthritis M19.90 [facility] [id number] [place] [address] 10528- 2381 Dec, [place] [id number] [place] [address] 23971- 3776 Dec, [facility] [id number] [place] [address] 03526- 0371 Dec, Major depressive disorder, recurrent episode, unspecified severity F33.9 [facility] [id number] [place] [address] 99544- 0434 Oct, [facility] [id number] [place] [address] 10850 -4667 Oct, Acute non-recurrent pansinusitis J01.40 and Sore throat J02.9 [facility] [id number] [place] [address] 33444- 4765 Oct, Major depressive disorder, recurrent episode, unspecified severity F33.9 [facility] [address] [place] [address] 15892- 9569 Oct, Major depressive disorder, recurrent episode, unspecified severity F33.9 and Generalized anxiety disorder F41.1 [place] [id number] [place] [address] 89440- 5836 Sep, [facility] [id number] [place] [address] 02731- 4419 Sep, Major depressive disorder, recurrent episode, unspecified severity F33.9 [facility] [address] [place] [address] 04373- 9086 Sep, Major depressive disorder, recurrent episode, unspecified severity F33.9 [facility] [address] [place] [address] 12576 -9827 18 Sep, 2016 Sore throat J02.9 [place] [id number] [place] [address] 83174- 8575 15 Sep, 2016 Generalized anxiety disorder F41.1 ; Major depressive disorder, recurrent episode, unspecified severity F33.9 and Attention-deficit hyperactivity disorder, predominantly hyperactive type F90.1 [place] [id number] [place] [address] 95213- 6264 08 Sep, 2016 Major depressive disorder, recurrent episode, unspecified severity F33.9 and Generalized anxiety disorder F41.1 [place] [id number] [place] [address] 94332- 0177 Sep, Psoriatic arthritis L40.50 [place] [id number] [place] [address] 73373- 2187 Sep, Diabetes E11.9 ; 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 ; Back pain M54.9 and Encounter for immunization Z23 [place] [id number] [place] [address] 96908- 0732 Aug, [place] [id number] [place] [address] 83051- 8566 Aug, [place] [id number] [place] [address] 22653- 2294 Jul, Major depressive disorder, recurrent episode, unspecified severity F33.9 ; Attention-deficit hyperactivity disorder, predominantly hyperactive type F90.1 and Generalized anxiety disorder F41.1 [place] [address] [place] [address] 62711- 5816 Jul, [place] [id number] [place] [address] 75493- 5744 Jul, Major depressive disorder, recurrent, in partial remission F33.41 and Generalized anxiety disorder F41.1 [facility] [address] [place] [address] 29624- 3281 Jul, [facility] [id number] [place] [address] 34674- 3032 Jul, [facility] [id number] [place] [address] 60989- 3442 Jul, [facility] [id number] [place] [address] 40767- 1156 Jul, [facility] [id number] [place] [address] 86924- 5630 Jul, Diabetes E11.9 [facility] [id number] [place] [address] 42416- 6635 May, [facility] [id number] [place] [address] 23864- 3083 May, [facility] [address] [place] [address] 19630- 5134 May, [facility] [id number] [place] [address] 73548- 6403 May, Major depressive disorder, recurrent episode, unspecified severity F33.9 ; Generalized anxiety disorder F41.1 and Attention-deficit hyperactivity disorder, predominantly hyperactive type F90.1 [facility] [address] [place] [address] 44343- 8948 May, [facility] [address] [place] [address] 21795- 0886 May, Diabetes E11.9 [facility] [address] [place] [address] 46143- 2539 May, [facility] [address] [address]- 7845 May, [facility] [address] [place] [id number] May, Diabetes E11.9 ; Generalized anxiety disorder F41.1 and Nausea R11.0 [facility] [address] [place] [address] 79670- 4815 May, Psoriatic arthritis L40.50 and Candidiasis of female genitalia B37.3 [facility] [id number] [place] [address] 35276- 6837 May, [facility] [id number] [place] [address] 39158- 4254 Apr, [facility] [id number] [place] [address] 65692- 6329 Apr, [facility] [id number] [place] [address] 75034- 2474 Apr, [facility] [id number] [place] [address] 92289- 3610 Apr, Generalized anxiety disorder F41.1 ; Major depressive disorder, recurrent episode, unspecified severity F33.9 and Attention-deficit hyperactivity disorder, predominantly hyperactive type F90.1 [facility] [address] [place] [address] 35905- 8645 Apr, [facility] [id number] [place] [address] 57206- 2818 Apr, [facility] [address] [address] Apr, [facility] [id number] [address] Apr, [facility] [id number] [address] Apr, [facility] [id number] [place] [id number]- [phone] Mar, Attention-deficit hyperactivity disorder, predominantly hyperactive type F90.1 [facility] [id number] [place] [id number]- [id number] Mar, [facility] [id number] [place], [place] [address] 63565- 6544 Mar, [facility] [id number] [place] [address] 88411- 5601 Mar, Major depressive disorder, recurrent episode, unspecified severity F33.9 and Generalized anxiety disorder F41.1 [place] [address] 56244- 3221 February, Diabetes E11.9 [facility] [id number] [place] [address] 86529 -8158 February, OME (otitis media with effusion), bilateral H65.93 [place] [id number] [place] [address] 60941- 0672 February, Back pain M54.9 [place] [address] 75834- 7538 February, [facility] [id number] [place] [address] 30705- 6340 February, Nausea R11.0 [place] [address] 15366- 1830 February, [place] [id number] [place] [address] 52046- 9647 February, Pre-op evaluation Z01.818 ; Type 2 diabetes mellitus with hyperglycemia E11.65 and residential 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 [facility] [id number] [place] [address] 62249- 6836 February, [facility] [id number] [place] [address] 56478 -2164 February, Right otitis externa H60.91 [facility] [id number] [place] [address] 61014- 0002 Jan, [facility] [address] 84639- 4198 Jan, Psoriatic arthritis L40.50 and Arthralgia, unspecified joint M25.50 [facility] [id number] [place] [address] 21554- 5578 Jan, Major depressive disorder, recurrent episode, unspecified severity F33.9 ; Generalized anxiety disorder F41.1 and Attention-deficit hyperactivity disorder, unspecified type F90.9 [facility] [id number] [place] [address] 94400- 9996 Jan, [facility] [id number] [place] [address] 80095- 5718 Jan, [facility] [id number] [place] [address] 37434- 7348 Jan, Major depressive disorder, recurrent episode, unspecified severity F33.9 and Generalized anxiety disorder F41.1 [facility] [id number] [place] [address] 36599- 5106 Jan, [facility] [id number] [place] [address] 65705- 0504 Dec, 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 I10 and Arthritis M19.90 [facility] [id number] [place] [address] 46395- 6547 Dec, [facility] [id number] [place] [address] 93508- 4118 Dec, [facility] [id number] [place] [address] 08623- 9389 Dec, [facility] [id number] [place] [address] 85585- 7886 Dec, [facility] [id number] [place] [address] 72282- 2542 Dec, [facility] [address] [address]- 5002 Dec, Major depressive disorder, recurrent episode, unspecified severity F33.9 and Generalized anxiety disorder F41.1 [facility] [id number] [place] [address] 83661- 9504 29 Dec, 2015 Diabetes E11.9 ; Back pain M54.9 ; Thrush B37.0 and 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 I10 [facility] [id number] [place] [address] 90114- 8281 18 Dec, 2015 Major depressive disorder, recurrent episode, unspecified severity F33.9 and Generalized anxiety disorder F41.1 [facility] [id number] [place] [address] 65912- 6978 04 Dec, 2015 Major depressive disorder, recurrent episode, in partial or unspecified remission 296.35 ; Major depressive disorder, recurrent episode, unspecified severity F33.9 and Generalized anxiety disorder 300.02 [facility] [id number] [place] [address] 18759- 2815 Dec, [facility] [address] 60294- 9347 Oct, [facility] [id number] [place] [address] 65187- 1148 Oct, [facility] [id number] [place] [address] 40642- 3141 Oct, [facility] [id number] [place] [address] 91017- 1443 Oct, [facility] [id number] [place] [address] 91622- 1710 Oct, Major depressive disorder, recurrent, moderate F33.1 and Attention-deficit hyperactivity disorder, unspecified type F90.9 [facility] [id number] [place] [address] 74945- 2780 Oct, ad terminal makeup operator (current) use of opiate analgesic Z79.891 [facility] [id number] [place] [address] 90008- 6213 Oct, [facility] [id number] [place] [address] 04132- 2893 Oct, [facility] [id number] [place] [address] 35590 -7480 Sep, URI (upper respiratory infection) J06.9 ; Psoriasis L40.9 ; Cough R05 and Tobacco abuse Z72.0 [facility] [id number] [place] [address] 69271- 2505 Sep, Major depressive disorder, recurrent episode, in partial or unspecified remission 296.35 ; Generalized anxiety disorder 300.02 and ADHD, 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 [facility] [id number] [place] [address] 14415 -8320 Sep, Acute sinusitis, unspecified J01.90 [facility] [id number] [place] [address] 99266- 7910 Sep, [facility] [address] 21323- 3376 Sep, Major depressive disorder, recurrent, moderate F33.1 ; Generalized anxiety disorder F41.1 and Attention-deficit hyperactivity disorder , combined type F90.2 [facility] [id number] [place] [address] 30748- 2292 Sep, [facility] [id number] [place] [address] 41262- 5100 Aug, [facility] [id number] [place] [address] 90371- 2327 Aug, [facility] [id number] [place] [address] 85166- 6450 Aug, Diabetes E11.9 and Anxiety F41.9 [facility] [address] 01617- 4483 Aug, Major depressive disorder, recurrent episode, unspecified severity F33.9 and Generalized anxiety disorder F41.1 [facility] [id number] [place] [address] 88859- 8832 Aug, [facility] [address] [address]- 3184 Jul, [facility] [id number] [place] [address] 85118- 7863 Jul, [facility] [address] [address]- 0208 Jul, [facility] [id number] [place] [address] 05389- 3747 Jul, [facility] [id number] [place] [address] 31803- 8106 Jul, Major depressive disorder, recurrent episode, in partial or unspecified remission 296.35 ; Generalized anxiety disorder 300.02 and ADHD, 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 [facility] [address] [place] [address] 86273- 0588 Jul, Major depressive disorder, recurrent episode, in partial or unspecified remission 296.35 ; Generalized anxiety disorder 300.02 and ADHD, 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 [facility] [id number] [place] [address] 69423- 8070 Jul, [facility] [id number] [place] [address] 03912- 8989 May, [facility] [address] [address]- 1218 May, [facility] [id number] [place] [address] 41098- 1691 May, DM w/o complication type II 250.00 ; Dyspepsia 536.8 and PAD (peripheral artery disease) 443.9 [facility] [id number] [place] [address] 31585- 7996 May, Major depressive disorder, recurrent episode, moderate 296.32 and Generalized anxiety disorder 300.02 [facility] [address] [address]- 1095 May, [facility] [address] [address]- 8408 May, Major depressive disorder, recurrent episode, moderate 296.32 and Generalized anxiety disorder 300.02 [facility] [id number] [place] [address] 43295- 1713 May, [facility] [id number] [place] [address] 27286- 3572 Apr, [facility] [id number] [place] [address] 97796- 4356 Apr, Major depressive disorder, recurrent episode, moderate 296.32 and Generalized anxiety disorder 300.02 [facility] [id number] [place] [address] 25848- 1270 Apr, [facility] [id number] [place] [address] 38446- 8993 Apr, [facility] [id number] [place] [address] 64860- 8716 Apr, Generalized anxiety disorder 300.02 ; ADHD, 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 and Depression, major, recurrent, moderate 296.32 [facility] [address] [place] [address] 05667- 5708 Apr, Major depressive disorder, recurrent episode, moderate 296.32 and Generalized anxiety disorder 300.02 [facility] [address] [address]- 3180 Apr, [facility] [id number] [place] [address] 31789- 4103 Apr, [facility] [id number] [place] [address] 24299- 1589 Mar, [facility] [id number] [place] [address] [id number]- 1973 Mar, Major depressive disorder, recurrent episode, moderate 296.32 and Generalized anxiety disorder 300.02 [facility] [id number] [place] [address] 82720- 4775 Mar, ADHD, 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 ; Major depressive disorder, recurrent episode, severe, without mention of psychotic behavior 296.33 and Generalized anxiety disorder 300.02 [facility] [id number] [place] [address] 35367- 8381 February, Major depressive disorder, recurrent episode, moderate 296.32 and Generalized anxiety disorder 300.02 [facility] [id number] [place] [address] 28039- 6213 February, [facility] [id number] [place] [address] 72733- 1170 February, [facility] [id number] [place] [address] 62330- 2673 February, [facility] [id number] [place] [address] 67531- 3506 February, [facility] [id number] [place] [address] 31613- 6516 February, DM w/o complication type II 250.00 ; Impacted cerumen 380.4 ; Essential hypertension, benign 401.1 and Irritable colon 564.1 [facility] [id number] [place] [address] 54930- 3030 February, [facility] [id number] [place] [address] 46342- 2101 February, [facility] [id number] [place] [address] 18823- 5770 Jan, [facility] [id number] [place] [address] 49933- 9673 Dec, [facility] [id number] [place] [address] 04063- 4734 Dec, [facility] [id number] [place] [address] 46448- 8518 Dec, [facility] [id number] [place] [address] 95717- 0767 20 Dec, 2014 [facility] [place] [facility] [address] [id number] [place] [address]- 8745 16 Dec, 2014 [facility] [place] [facility] [address] [id number] [place] [address]- 2756 16 Dec, 2014 [facility] [place] [facility] [address] [facility] [id number] [place] [address]- 5887 10 Dec, 2014 [facility] [place] [facility] [address] [facility] [id number] [place] [address]- 8505 10 Dec, 2014 [facility] [place] [facility] [address] [id number] [place] [address]- 0511 02 Dec, 2014 [facility] [place] [facility] [address] [facility] [id number] [place] [address]- 7347 Dec, [facility] [place] [facility] [id number] [place] [address]- 5761 19 Dec, 2014 [facility] [place] [facility] [address] [facility] [id number] [place] [address]- 9745 Dec, 2014 [facility] [place] [facility] [address] [facility] [id number] [place] [address]- 5396 Dec, 2014 [facility] [place] [facility] [address] [facility] [id number] [place] [address]- 5516 Dec, 2014 [facility] [place] [facility] [address] [facility] [id number] [place] [address]- 5628 Dec, 2014 [facility] [place] [facility] [address] [facility] [id number] [place] [address]- 3189 Dec, 2014 [facility] [place] [facility] [address] [facility] [id number] [place] [address]- 0249 Oct, [facility] [place] [facility] [address] [facility] [id number] [place] [address]- 6796 Oct, [facility] [place] [facility] [address] [facility] [id number] [address]- 9242 Oct, [facility] [place] [facility] [address] [id number] [place] [address]- 3417 Oct, [facility] [place] [facility] [address] [id number] [place] [address]- 1533 Oct, [facility] [place] [facility] [address] [id number] [place] [address]- 9852 Oct, [facility] [place] [facility] [address] [id number] [place] [address]- 9699 Oct, [facility] [address] [id number] [place] [address]- 0089 Oct, [facility] [place] [facility] [address] [id number] [place] [address]- 4244 Oct, [facility] [address] [id number] [place] [address]- 8138 Oct, [facility] [address] [id number] [place] [address]- 9487 Oct, [facility] [place] [facility] [address] [id number] [place] [address]- 0424 Sep, [facility] [place] [facility] [address] [id number] [place] [address]- 2612 Sep, [facility] [place] [facility] [address] [id number] [place] [address]- 3969 Sep, [facility] [place] [facility] [address] [id number] [place] [address]- 9182 Sep, [facility] [place] [facility] [address] [id number] [place] [address]- 0974 Sep, [facility] [place] [facility] [address] [id number] [place] [address]- 7509 Sep, [facility] [place] [facility] [address] [id number] [place] [address]- 9305 Sep, [facility] [place] [facility] [address] [id number] [address]- 0481 Sep, [facility] [place] [facility] [address] [id number] [place] [address]- 5246 Aug, [facility] [place] [facility] [address] [id number] [place] [address]- 7270 Aug, [facility] [place] [facility] [address] [id number] [place] [address]- 6579 Aug, [facility] [place] [facility] [address] [id number] [place] [address]- 6972 Aug, [facility] [place] [facility] [address] [id number] [place] [address]- 9801 Aug, [facility] [place] [facility] [address] [id number] [place] [address]- 9003 Aug, [facility] [place] [facility] [address] [id number] [place] [address]- 0108 Aug, [facility] [place] [facility] [address] [id number] [place] [address]- 6883 Aug, [facility] [place] [facility] [address] [id number] [place] [address]- 5992 Aug, [facility] [place] [facility] [address] [id number] [place] [address]- 5240 Aug, [facility] [place] [facility] [address] [id number] [address]- 8471 Aug, [facility] [place] [facility] [address] [id number] [address]- 3446 Aug, [facility] [place] [facility] [address] [id number] [address]- 0964 Aug, [facility] [place] [facility] [address] [id number] [address]- 2647 Aug, [facility] [place] [facility] [address] [id number] [place] [address]- 3385 Jul, [facility] [place] [facility] [address] [id number] [place] [address]- 9938 Jul, [facility] [place] [facility] [address] [id number] [place] [address]- 4691 Jul, [facility] [place] [facility] [address] [id number] [place] [address]- 9786 Jul, [facility] [place] [facility] [address] [id number] [place] [address]- 1790 Jul, [facility] [place] [facility] [address] [id number] [place] [address]- 0566 Jul, [facility] [place] [facility] [address] [id number] [place] [address]- 5054 Jul, [facility] [place] [facility] [address] [id number] [place] [address]- 6051 Jul, [facility] [place] [facility] [address] [id number] [place] [address]- 7996 Jul, 2013 [facility] [place] [facility] [address] [id number] [place] [address]- 2529 Jul, [facility] [place] [facility] [address] [id number] [place] [address]- 7618 Jul, [facility] [place] [facility] [address] [id number] [place] [address]- 4983 Jul, [facility] [place] [facility] [address] [id number] [place] [address]- 2547 Jul, [facility] [place] [facility] [address] [id number] [place] [address]- 254 Jul, [facility] [place] [facility] [address] [id number] [place] [address]- 4840 May, [facility] [place] [facility] [address] [id number] [place] [address]- 4525 May, [facility] [place] [facility] [address] [id number] [place] [address]- 1426 May, [facility] [place] [facility] [address] [id number] [place] [address]- 1639 May, [facility] [place] [facility] [address] [id number] [place] [address]- 5121 May, [facility] [place] [facility] [address] [id number] [place] [address]- 0206 May, [facility] [place] [facility] [address] [id number] [place] [address]- 0390 May, [facility] [place] [facility] [address] [id number] [place] [address]- 0042 May, [facility] [place] [facility] [address] [id number] [place] [address]- 6145 May, [facility] [place] [facility] [address] [id number] [place] [address]- 4955 May, [facility] [place] [facility] [address] [id number] [place] [address]- 3624 May, [facility] [place] [facility] [address] [id number] [place] [address]- 1424 May, [facility] [place] [facility] [address] [id number] [place] [address]- 8730 Apr, [facility] [place] [facility] [address] [id number] [place] [address]- 4472 Apr, [facility] [place] [facility] [address] [id number] [place] [address]- 9634 Apr, [facility] [place] [facility] [address] [id number] [place] [address]- 4628 Apr, [facility] [place] [facility] [address] [id number] [place] [address]- 9451 Apr, [facility] [place] [facility] [address] [id number] [place] [address]- 1866 Apr, [facility] [place] [facility] [address] [id number] [place] [address]- 9284 Mar, [facility] [place] [facility] [address] [id number] [place] [address] Mar, [facility] [place] [facility] [address] [id number] [place] [address] Mar, [facility] [place] [facility] [address] [id number] [place] [address] Mar, [facility] [place] [facility] [address] [id number] [place] [address] Mar, [facility] [place] [facility] [address] [id number] [place] [address] Mar, [facility] [place] [facility] [address] [id number] [place] [address] Mar, [facility] [place] [facility] [address] [id number] [place] [address] Mar, [facility] [place] [facility] [address] [id number] [place] [address] Mar, [facility] [place] [facility] [address] [id number] [place] [address] Mar, [facility] [place] [facility] [address] [id number] [place] [address] Mar, [facility] [place] [facility] [address] [id number] [place] [address] Mar, [facility] [place] [facility] [address] [id number] [place] [address] Mar, [facility] [place] [facility] [address] [id number] [place] [address] February, [facility] [place] [facility] [address] [id number] [place] [address] February, [facility] [place] [facility] [address] [id number] [place] [address] February, [facility] [place] [facility] [address] [id number] [place] [address] February, [facility] [place] [facility] [address] [id number] [place] [address] February, [facility] [place] [facility] [address] [id number] [place] [address] February, [facility] [place] [facility] [address] [id number] [place] [address] February, [facility] [place] [facility] [address] [id number] [place] [address] February, [facility] [place] [facility] [address] [id number] [place] [address] February, [facility] [place] [facility] [address] [id number] [place] [address] February, [facility] [place] [facility] [address] [id number] [place] [address] February, [facility] [place] [facility] [address] [id number] [place] [address] February, [facility] [place] [facility] [address] [id number] [place] [address] February, [facility] [place] [facility] [address] [id number] [place] [address] February, [facility] [place] [facility] [address] [id number] [place] [address] Jan, [facility] [place] [facility] [address] [id number] [place] [address] Jan, [facility] [place] [facility] [address] [id number] [place] [address] Jan, [facility] [place] [facility] [address] [id number] [place] [address] Jan, [facility] [place] [facility] [address] [id number] [place] [address] Jan, [facility] [place] [facility] [address] [id number] [place] [address] Jan, [facility] [place] [facility] [address] [id number] [place] [address] Jan, [facility] [place] [facility] [address] [id number] [place] [address]- [address] Jan, [facility] [place] [facility] [address] [id number] [place] [address] Jan, [facility] [place] [facility] [address] [id number] [place] [address] Dec, [facility] [place] [facility] [address] [id number] [place] [address] Dec, [facility] [place] [facility] [address] [id number] [place] [address] Dec, [facility] [place] [facility] [address] [id number] [place] [address] Dec, [facility] [place] [facility] [address] [id number] [place] [address] Dec, [facility] [place] [facility] [address] [address] [id number] [place] [address] Dec, [facility] [place] [facility] [address] [id number] [place] [address] Dec, [facility] [place] [facility] [address] [id number] [place] [address] Dec, [facility] [place] [facility] [address] [id number] [place] [address] 7937 Dec, [facility] [place] [facility] [address] [id number] [place] [address] 6838 Dec, [facility] [place] [facility] [address] [id number] [place] [address] 1435 Dec, [facility] [place] [facility] [address] [id number] [place] [address] 7936 13 Dec, 2013 [facility] [place] [facility] [address] [id number] [place] [address] 8996 Dec, [facility] [place] [facility] [address] [id number] [place] [address] 7956 10 Dec, 2013 [facility] [place] [facility] [address] [id number] [place] [address] 5486 Dec, [facility] [place] [facility] [address] [id number] [place] [address] 2544 Dec, [facility] [place] [facility] [address] [id number] [place] [address] 5156 Dec, [facility] [place] [facility] [address] [id number] [place] [address] 6860 Oct, [facility] [place] [facility] [address] [id number] [place] [address] 9050 Oct, [facility] [place] [facility] [address] [id number] [place] [address] 4993 Oct, [facility] [place] [facility] [address] [id number] [place] [address] 4354 Oct, [facility] [place] [facility] [address] [id number] [place] [address] 5669 Oct, [facility] [place] [facility] [address] [id number] [place] [address]- 8997 Oct, [facility] [place] [facility] [address] [id number] [place] [address]- 2541 Oct, [facility] [place] [facility] [address] [id number] [place] [address] 2932 Oct, [facility] [place] [facility] [address] [id number] [place] [address]- 2546 Oct, [facility] [place] [facility] [address] [id number] [place] [address] 7799 16 Oct, 2013 [facility] [address] [id number] [place] [address] 8467 Oct, [facility] [place] [facility] [address] [id number] [place] [address]- 7122 Oct, [facility] [place] [facility] [address] [id number] [place] [address]- 0079 Oct, [facility] [place] [facility] [address] [id number] [place] [address]- 4830 Oct, [facility] [place] [facility] [address] [id number] [place] [address]- 6417 31 Sep, 2013 [facility] [place] [facility] [address] [id number] [place] [address]- 3026 31 Sep, 2013 [facility] [place] [facility] [address] [id number] [place] [address]- 4519 30 Sep, 2013 [facility] [place] [facility] [address] [id number] [place] [address]- 3917 30 Sep, 2013 [facility] [place] [facility] [address] [id number] [place] [address] 3902 Sep, [facility] [place] [facility] [address] [id number] [place] [address] 2972 Sep, [facility] [place] [facility] [address] [id number] [address] 7669 Sep, [facility] [place] [facility] [address] [id number] [address] 4099 27 Sep, 2013 [facility] [place] [facility] [address] [id number] [place] [address]- 5226 Sep, [facility] [place] [facility] [address] [id number] [place] [address]- 4630 27 Sep, 2013 [facility] [place] [facility] [address] [id number] [place] [address]- 7227 16 Sep, 2013 [facility] [place] [facility] [address] [id number] [place] [address] 16 Sep, 2013 [facility] [address] [id number] [place] [address]- 2024 13 Sep, 2013 [facility] [place] [facility] [address] [id number] [place] [address] 13 Sep, 2013 [facility] [address] [id number] [place] [address]- 2570 10 Sep, 2013 [facility] [place] [facility] [address] [id number] [place] [address]- 4225 10 Sep, 2013 [facility] [address] [id number] [place] [address] 02 Sep, 2013 [facility] [place] [facility] [address] [id number] [place] [address]- 5698 02 Sep, 2013 [facility] [address] [facility] [id number] [place] [address]- 6670 15 Aug, 2013 [facility] [place] [facility] [address] [id number] [place] [address]- 6633 15 Aug, 2013 [facility] [place] [facility] [address] [id number] [place] [address]- 1221 16 Jul, 2013 [facility] [place] [facility] [address] [facility] [id number] [place] [address]- 5408 16 Jul, 2013 [facility] [place] [facility] [address] [id number] [place] [address]- 9979 14 Jul, 2013 [facility] [place] [facility] [address] [id number] [address] 8846 14 Jul, 2013 [facility] [place] [facility] [address] [id number] [place] [address]- 2075 08 Jul, 2013 [facility] [place] [facility] [address] [facility] [id number] [place] [address]- 6973 20 Jul, 2013 [facility] [place] [facility] [address] [id number] [address] 19 Sep2012 [facility] [place] [facility] [address] [id number] [place] [address]- 7759 13 Jul, 2012 [facility] [place] [facility] [address] [id number] [place] [address]- 3120 08 Jul, 2012 [facility] [place] [facility] [address] [id number] [place] [address]- 2050 06 Jul, 2012 [facility] [place] [facility] [address] [id number] [place] [address]- 7762 Jul, 2012 [facility] [address] [id number] [place] [address]- 6659 06 Jul, 2012 [facility] [place] [facility] [address] [id number] [place] [address]- 9790 Jul, 2012 [facility] [address] [id number] [place] [address]- 5038 May, [facility] [place] [facility] [address] [id number] [place] [address]- 3882 May, [facility] [place] [facility] [address] [id number] [place] [address]- 0284 May, [facility] [place] [facility] [address] [id number] [place] [address]- 1449 May, [facility] [place] [facility] [address] [id number] [place] [address]- 9420 Apr, [facility] [place] [facility] [address] [id number] [place] [address]- 1382 Apr, [facility] [place] [facility] [address] [id number] [place] [address]- 8545 Apr, [facility] [place] [facility] [address] [id number] [place] [address]- 7555 Mar, [facility] [place] [facility] [address] [id number] [place] [address]- 7149 Mar, [facility] [place] [facility] [address] [id number] [place] [address]- 2546 Mar, [facility] [address] [id number] [place] [address]- 1222 Mar, [facility] [address] [id number] [place] [address]- 5668 February, [facility] [address] [id number] [place] [address]- 8426 February, [facility] [address] [id number] [place] [address]- 9321 Jan, [facility] [address] [id number] [place] [address]- 3723 Dec, [facility] [address] [facility] [id number] [place] [address]- 9190 Dec, [facility] [address] [facility] [id number] [place] [address]- 7676 Dec, [facility] [place] [facility] [address] [id number] [place] [address]- 9461 Dec, [facility] [address] [id number] [place] [address]- 7049 28 Dec, 2012 [facility] [address] [facility] [id number] [place] [address]- 3928 27 Dec, 2012 [facility] [address] [id number] [place] [address]- 4978 26 Dec, 2012 [facility] [place] [facility] [address] [id number] [place] [address]- 6610 25 Dec, 2012 [facility] [place] [facility] [address] [id number] [place] [address]44 22 Dec, 2012 [facility] [place] [facility] [address] [id number] [place] [address] 15 Dec, 2012 [facility] [place] [facility] [address] [facility] [id number] [place] [address] 14 Dec, 2012 [facility] [place] [facility] [address] [id number] [place] [address]- 0437 Oct, [facility] [address] [id number] [place] [address]- 8285 Oct, [facility] [place] [facility] [address] [id number] [place] [address]- 6141 Oct, [facility] [address] [id number] [place] [address]- 9220 Oct, [facility] [address] [id number] [place] [address]- 7351 Sep, [facility] [place] [facility] [address] [id number] [place] [address]- 7208 Sep, [facility] [address] [id number] [place] [address]- 2251 Sep, [facility] [address] [id number] [place] [address]- 8420 Sep, [facility] [address] [id number] [place] [address]- 1263 Sep, [facility] [place] [facility] [address] [id number] [place] [address]- 3868 Sep, [facility] [place] [facility] [address] [id number] [place] [address]- 5699 Aug, [facility] [place] [facility] [address] [id number] [place] [address]- 5714 Aug, [facility] [place] [facility] [address] [id number] [place] [address]- 3129 Aug, [facility] [place] [facility] [address] [id number] [place] [address]- 1208 Aug, [facility] [place] [facility] [address] [id number] [place] [address]- 3560 Aug, [facility] [place] [facility] [address] [id number] [place] [address]- 3056 Aug, [facility] [place] [facility] [address] [id number] [place] [address]- 2721 Jul, [facility] [place] [facility] [address] [id number] [place] [address]- 4086 17 Jul, 2012 [facility] [place] [facility] [address] [id number] [place] [address]- 1926 16 Jul, 2012 [facility] [place] [facility] [address] [id number] [place] [address]- 2119 16 Jul, 2012 [facility] [place] [facility] [address] [id number] [place] [address]- 7535 Jul, [facility] [place] [facility] [address] [id number] [place] [address]- 9006 Jul, [facility] [place] [facility] [address] [id number] [place] [address]- 9571 27 Jul, 2012 [facility] [place] [facility] [address] [id number] [place] [address]- 4360 21 Jul, 2012 [facility] [place] [facility] [address] [id number] [place] [address]- 3865 20 Jul, 2012 [facility] [place] [facility] [address] [id number] [place] [address]- 5448 11 Jul, 2012 [facility] [place] [facility] [address] [id number] [place] [address]- 4549 Jul, [facility] [place] [facility] [address] [id number] [place] [address]- 7495 29 May, 2012 [facility] [place] [facility] [address] [id number] [place] [address]- 4179 May, [facility] [place] [facility] [address] [facility] [id number] [place] [address]- 5760 May, [facility] [place] [facility] [address] [id number] [place] [address]- 5599 May, [facility] [place] [facility] [address] [id number] [place] [address]- 2747 30 Apr, 2012 [facility] [address] [id number] [place] [address]- 3236 Apr, [facility] [place] [facility] [address] [id number] [place] [address]- 4756 Apr, [facility] [address] [id number] [place] [address]- 9690 Apr, [facility] [place] [facility] [address] [id number] [place] [address]- 2540 Apr, [facility] [address] [id number] [place] [address]- 5704 Apr, [facility] [address] [id number] [place] [address]- 4983 Apr, [facility] [place] [facility] [address] [id number] [place] [address]- 7278 Apr, [facility] [address] [id number] [place] [address]- 8553 Mar, [facility] [place] [facility] [address] [id number] [place] [address]- 8143 Mar, [facility] [address] [id number] [place] [address]- 3754 Mar, [facility] [place] [facility] [address] [id number] [place] [address]- 2543 15 Mar, 2012 [facility] [place] [facility] [address] [id number] [place] [address]- 2540 14 Mar, 2012 [facility] [place] [facility] [address] [id number] [place] [address]- 8745 12 Mar, 2012 [facility] [place] [facility] [address] [id number] [place] [address]- 5684 12 Mar, 2012 [facility] [place] [facility] [address] [id number] [place] [address]- 6445 11 Mar, 2012 [facility] [address] [id number] [place] [address]- 1286 08 Mar, 2012 [facility] [place] [facility] [address] [id number] [place] [address]- 9776 February, [facility] [place] [facility] [address] [id number] [place] [address]- 1666 February, [facility] [place] [facility] [address] [id number] [place] [address]- 7656 February, [facility] [place] [facility] [address] [id number] [place] [address]- 2143 February, [facility] [place] [facility] [address] [id number] [place] [address]- 6716 Jan, [facility] [place] [facility] [address] [id number] [place] [address]- 3346 Jan, [facility] [place] [facility] [address] [id number] [place] [address]- 4575 28 Dec, 2011 [facility] [place] [facility] [address] [id number] [place] [address]- 4047 15 Dec, 2011 [facility] [place] [facility] [address] [id number] [place] [address]- 6175 14 Dec, 2011 [facility] [place] [facility] [address] [id number] [place] [address]- 2416 Dec, [facility] [place] [facility] [address] [id number] [place] [address]- 2715 Dec, [facility] [place] [facility] [address] [id number] [place] [address]- 8552 Dec, [facility] [place] [facility] [address] [id number] [place] [address]- 0966 Dec, [facility] [place] [facility] [address] [id number] [place] [address]- 6986 Dec, [facility] [place] [facility] [address] [id number] [place] [address]- 1098 07 Dec, 2011 [facility] [address] [id number] [place] [address]- 9106 Dec, [facility] [address] [id number] [place] 6716 07 Dec, 2011 [facility] [address] [id number] [place] [address]- 8166 Dec, [facility] [address] [id number] [place] [address]- 7492 Oct, [facility] [address] [id number] [place] [address]- 3184 Oct, [facility] [address] [id number] [place] [address]- 1211 Oct, [facility] [address] [id number] [place] [address]- 8356 Oct, [facility] [address] [id number] [place] [address]- 4489 Oct, [facility] [address] [facility] [id number] [place] [address]- 1101 Oct, [facility] [address] [facility] [id number] [place] [address]- 4461 [address], [address] [facility] [address] [id number] [place] [address]- 4203 Oct, [facility] [address] [id number] [place] [address]- 3734 Sep, [facility] [address] [id number] [place] [address]- 9351 Sep, [facility] [address] [id number] [place] [address]- 1636 Sep, [facility] [address] [id number] [place] [address]- 3503 Aug, [facility] [address] [id number] [address]- 6867 Aug, [facility] [id number] [address]- 8258 Aug, [facility] [id number] [address]- 2984 Aug, [facility] [id number] [place] [address] 0[address]- 9848 Aug, [facility] [id number] [address]- 2073 Jul, [facility] [id number] [place] [address]- 5582 Jul, [facility] [id number] [place] [address] 980[address]- 5591 May, [facility] [id number] [place] [address]- 2915 Dec, [facility] [id number] [address]- 3692 Oct, [facility] [id number] [address]- 7969 Sep, [facility] [id number] [address]- 4845 Sep, [facility] [id number] [address]761 Sep, IMMUNIZATIONS No Known Immunizations SOCIAL HISTORY [...] reflux Surgical History Left Knee SOA-Dr. Melendrez-[facility] 05/19/16 Surgical History Colonoscopy- Dr Castanon 01/26/2017 Hospitalization History surgeries Hospitalization History Left Knee SOA--Dr. Melendrez--[facility] Hospitalization History Septic shock, UTI-[facility] 07/27/17 Hospitalization History Multiple falls, hyperglycemia, sepsis 07/2017 Hospitalization History Alcoholism, depression, DM, Falls-[facility] 08/23/17 Hospitalization History COPD exacerbation-[facility] 11/25/17 Hospitalization History COPD exacerbation-[facility] 11/28/17 Hospitalization History [facility]- AMS, Hyperglycemia 01/19/2018
--- OUTSIDE RECORDS SUMMARY | 2018-05-10 03:41 | XMS REPORT ---
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 Active 039740957 Problem Psoriatic arthritis L40.50 Active 011607922 Problem Psychophysiological insomnia F51.04 Active 80843054 Problem Other specified 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 Active 069298215 Problem Obesity (BMI 30-39.9) E66.9 Active 934304795 Problem Major depressive disorder, recurrent, moderate F33.1 Active 58791675 Problem Essential hypertension I10 Active 94545939 Problem Type 2 diabetes mellitus with hyperglycemia E11.65 Active 699969506409280 Problem Alcoholism F10.20 Active 2958735 Problem Frequent falls R29.6 Active 115643821 Problem Benzodiazepine abuse F13.10 Active 399559001 Problem PTSD (post-traumatic stress disorder) F43.10 Active 42666615 Problem Eating disorder F50.9 Active 37009005 Problem Attention-deficit hyperactivity disorder, combined type F90.2 Active 95353285 Problem COPD exacerbation J44.1 Active 659902557 Problem Anxiety F41.9 Active 36992753 Problem Decubitus ulcer of left buttock, stage 2 L89.322 Active 831927958 Problem BMI 40.0-44.9, adult Z68.41 Active 503077711 Problem Alcohol abuse F10.10 Active 57476145 Problem Pneumonia due to methicillin resistant Staphylococcus aureus, unspecified laterality, unspecified part of lung J15.212 Active 387258886541261 Problem Type 2 diabetes mellitus with unspecified complications E11.8 Active 51169925 Problem Attention-deficit hyperactivity disorder, predominantly hyperactive type F90.1 Active 261193094 Problem Type 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 Active 30897984 Problem Ulcer of right foot, unspecified ulcer stage L97.519 Active 48294596 Problem Attention deficit R41.840 Active 00685918 Problem Mental disorder, not otherwise specified F99 Active 11462233 Problem Insomnia due to other mental disorder F51.05 Active 76075049 ALLERGIES No Information ENCOUNTERS Encounter Location Date Diagnosis [facility] [id number] [place] [address] 68555- 4133 May, [facility] [address] 73590- 0778 Apr, [facility] [address] 00464- 2216 Apr, [facility] [id number] [place] [address] 82985- 7391 Mar, Major depressive disorder, recurrent episode, unspecified severity F33.9 ; Generalized anxiety disorder F41.1 and Eating disorder F50.9 [facility] [id number] [place] [address] 34781- 0965 Mar, Medicare annual wellness visit, initial Z00.00 ; Type 2 diabetes mellitus with hyperglycemia E11.65 ; BMI 40.0-44.9, adult Z68.41 ; COPD exacerbation J44.1 ; Major depressive disorder, recurrent, moderate F33.1 ; Generalized anxiety disorder F41.1 ; 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 I10 ; Arthritis M19.90 and 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 [facility] [id number] [place] [address] 41622- 0712 February, Yeast infection B37.9 [facility] [id number] [place] [address] 04159- 2599 February, [facility] [address] 00362- 2401 Jan, [facility] [address] [place] [address] 53347- 4490 Dec, Major depressive disorder, recurrent episode, unspecified severity F33.9 ; Generalized anxiety disorder F41.1 and Eating disorder F50.9 [facility] [id number] [place] [address] 88966- 5945 Dec, [facility] [address] 24651- 2857 Dec, [facility] [id number] [place] [address] 23560- 9064 Dec, [facility] [id number] [place] [address] 42738- 2547 Dec, Increased urinary frequency R35.0 ; Frequent falls R29.6 ; Decubitus ulcer of left buttock, stage 2 L89.322 ; Benzodiazepine abuse F13.10 ; BMI 40.0-44.9, adult Z68.41 and Yeast infection B37.9 [facility] [id number] [place] [address] 62876- 9749 Dec, [facility] [id number] [place] [address] 36824- 0307 Dec, [facility] [id number] [place] [address] 25300- 6001 Dec, Increased urinary frequency R35.0 [facility] [id number] [place] [address] 64783- 0558 Dec, Increased urinary frequency R35.0 [facility] [id number] [place] [address] 69473- 9730 Dec, Generalized anxiety disorder F41.1 ; Major depressive disorder, recurrent, moderate F33.1 and Psychophysiological insomnia F51.04 [facility] [address] [place] [address] 00849- 6879 Dec, BMI 40.0-44.9, adult Z68.41 ; Type 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 ; Pneumonia due to methicillin resistant Staphylococcus aureus, unspecified laterality, unspecified part of lung J15.212 and COPD exacerbation J44.1 [facility] [address] [address] -7128 Dec, [facility] [id number] [place] [address] [id number] Dec, [facility] [address] [id number] Oct, [facility] [id number] [place] [address] 02707 -3352 Oct, Frequency of urination R35.0 ; Bronchitis J40 and BMI 40.0- 44.9, adult Z68.41 [facility] [id number] [place] [address] [id number] Oct, [facility] [address] [place] [address] 14706- 7976 Oct, [facility] [id number] [place] [address] 88463- 5584 Oct, BMI 40.0-44.9, adult Z68.41 ; Type 2 diabetes mellitus with hyperglycemia E11.65 ; Essential hypertension I10 ; Vaginal yeast infection B37.3 ; Anxiety F41.9 and Alcoholism F10.20 [facility] [address] [address]- 6269 Oct, [facility] [address] [place] [address] 08766- 0697 Oct, [facility] [id number] [place] [address] 11767- 9804 Sep, [facility] [address] [place] [address] 09885- 4143 Sep, Major depressive disorder, recurrent episode, unspecified severity F33.9 ; Generalized anxiety disorder F41.1 and Eating disorder F50.9 [facility] [address] [place] [address] 75930- 6669 14 Sep, 2017 Major depressive disorder, recurrent, moderate F33.1 ; Type 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 ; Alcohol abuse F10.10 ; Obesity (BMI 30-39.9) E66.9 and Psychophysiological insomnia F51.04 [facility] [id number] [place] [address] 10198- 7478 Sep, Diabetes E11.9 and Generalized anxiety disorder F41.1 [facility] [id number] [place] [address] 26241- 1923 Sep, Major depressive disorder, recurrent episode, unspecified severity F33.9 ; Generalized anxiety disorder F41.1 and Eating disorder F50.9 [facility] [id number] [place] [address] 38554- 5112 Sep, [facility] [id number] [place] [address] 35448- 8832 Aug, [facility] [id number] [place] [address] 68282- 9799 Aug, Insomnia due to other mental disorder F51.05 ; Mental disorder, not otherwise specified F99 ; Attention deficit R41.840 ; Ulcer of right foot, unspecified ulcer stage L97.519 ; Cough R05 ; Diabetes E11.9 ; Sore in mouth K13.79 ; Generalized anxiety disorder F41.1 ; Major depressive disorder , recurrent episode, unspecified severity F33.9 and BMI 40.0-44.9, adult Z68.41 [facility] [address] [place] [address] 00580- 5986 Aug, [place] [id number] [place] [address] 71671- 8989 Aug, [facility] [id number] [place] [address] 90748- 0018 Aug, [facility] [id number] [place] [address] 32081- 0296 Aug, [facility] [address] [facility] [id number] [address] 6[address] Aug, Diabetes E11.9 [facility] [employer] [address] [facility] [place] [id number] Aug, Falling R29.6 ; Alcohol abuse F10.10 ; Major depressive disorder, recurrent episode, unspecified severity F33.9 ; 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 I10 ; Type 2 diabetes mellitus with unspecified complications E11.8 and half-way 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 [facility] [address] [id number] [id number] Aug, [facility] [address] [place] [id number] Aug, Alcohol abuse F10.10 ; Major depressive disorder, recurrent episode, unspecified severity F33.9 ; Generalized anxiety disorder F41.1 ; half-way 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 ; Psoriatic arthritis L40.50 and Diabetes E11.9 [facility] [address] [id number] [id number] Aug, [facility] [address] [id number] [id number] Jul, [facility] [id number] [address] 7366 Jul, [facility] [id number] [address]- 0839 Jul, Generalized anxiety disorder F41.1 [facility] [id number] [address]- 4508 Jul, [facility] [address] [facility] [id number] [address]- 5289 Jul, [facility] [id number] [address]- 0343 Jul, Generalized anxiety disorder F41.1 ; Major depressive disorder, recurrent episode, unspecified severity F33.9 ; PTSD (post-traumatic stress disorder) F43.10 ; Eating disorder F50.9 and Attention-deficit hyperactivity disorder, predominantly hyperactive type F90.1 [facility] [id number] [place] [address] 28879- 1933 Jul, [facility] [id number] [place] [address] 67886- 1253 Jul, [facility] [id number] [place] [address] 80235- 2814 Jul, half-way 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 ; Type 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 ; Urinary tract infection, site not specified N39.0 ; Sepsis, unspecified organism A41.9 and Essential hypertension I10 [facility] [id number] [place] [address] [id number] Jul, [facility] [id number] [place] [address] 30618 -3756 Jul, [facility] [id number] [place] [address] 42219- 6971 Jul, Generalized anxiety disorder F41.1 [facility] [id number] [place] [address] 12147- 8075 Jul, [facility] [id number] [place] [address] 68786- 4612 Jul, Generalized anxiety disorder F41.1 [facility] [id number] [place] [address] 11730- 5589 May, Generalized anxiety disorder F41.1 ; Major depressive disorder, recurrent episode, unspecified severity F33.9 ; PTSD (post-traumatic stress disorder) F43.10 ; Eating disorder F50.9 and Attention-deficit hyperactivity disorder, predominantly hyperactive type F90.1 [facility] [address] [place] [address] 52899- 4993 May, Diabetes E11.9 [facility] [id number] [place] [address] 53485 -8858 14 May, 2017 Acute non-recurrent maxillary sinusitis J01.00 and Diabetes E11.9 [facility] [address], [place] [address]- 5048 May, [facility] [address], [place] [address]- 7447 May, [facility] [address], [place] [address]- 0372 May, Generalized anxiety disorder F41.1 [facility] [address], [place] [address]- 8013 Apr, [facility] [id number] [place] [address] 57692- 7049 Apr, [facility] [id number] [place] [address] 62414- 8011 Apr, [facility] [id number] [place] [address] 16741- 8800 Apr, Generalized anxiety disorder F41.1 ; Major depressive disorder, recurrent episode, unspecified severity F33.9 ; PTSD (post-traumatic stress disorder) F43.10 ; Eating disorder F50.9 and Attention-deficit hyperactivity disorder, predominantly hyperactive type F90.1 [facility] [address], [place] [address]- 7602 Apr, Major depressive disorder, recurrent, moderate F33.1 [facility] [address], [place] [address]- 5461 Mar, Diabetes E11.9 [facility] [address], [place] [address]- 2148 Mar, Attention-deficit hyperactivity disorder, combined type F90.2 [facility] [address], [place] [address]- 9892 Mar, [facility] [address], [place] [address]- 2506 Mar, Diabetes E11.9 [facility] [id number] [place] [address] 49765- 3004 Mar, half-way 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 ; Psoriatic arthritis L40.50 ; Other specified 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 and 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 I10 [facility] [id number] [place] [address] 73541- 1365 February, Back pain M54.9 [facility] [facility] [address] 21532- 5161 February, Attention-deficit hyperactivity disorder, combined type F90.2 [facility] [place] [id number] [place] [address] 47503- 9339 February, Major depressive disorder, recurrent episode, unspecified severity F33.9 and Generalized anxiety disorder F41.1 [facility] [id number] [place] [address] 93061- 6361 Jan, Attention-deficit hyperactivity disorder, combined type F90.2 [facility] [id number] [place] [address] 43351- 1232 Jan, Major depressive disorder, recurrent, moderate F33.1 ; Generalized anxiety disorder F41.1 and Attention-deficit hyperactivity disorder , combined type F90.2 [facility] [id number] [place] [address] 13240- 9990 Dec, Major depressive disorder, recurrent episode, unspecified severity F33.9 ; Generalized anxiety disorder F41.1 and Attention-deficit hyperactivity disorder, predominantly hyperactive type F90.1 [facility] [id number] [place] [address] 06835- 7434 Dec, Major depressive disorder, recurrent episode, unspecified severity F33.9 and Generalized anxiety disorder F41.1 [facility] [place] [id number] [place] [address] 04736- 4913 Dec, [facility] [id number] [place] [address] 29694- 6241 Dec, [facility] [facility] [address] 78418- 5492 Dec, Major depressive disorder, recurrent episode, unspecified severity F33.9 and Generalized anxiety disorder F41.1 [facility] [id number] [place] [address] 85652- 6525 Dec, Back pain M54.9 [facility] [id number] [place] [address] 87173- 9834 17 Dec, 2016 Eustachian tube dysfunction, right H69.81 and Arthritis M19.90 [facility] [id number] [place] [address] 91859- 9020 Dec, [facility] [place] [id number] [place] [address] 05677- 3530 Dec, [facility] [id number] [place] [address] 29458- 4043 Dec, Major depressive disorder, recurrent episode, unspecified severity F33.9 [facility] [id number] [place] [address] 90381- 5860 Oct, [facility] [id number] [place] [address] 26875 -9862 Oct, Acute non-recurrent pansinusitis J01.40 and Sore throat J02.9 [facility] [id number] [place] [address] 08348- 5930 Oct, Major depressive disorder, recurrent episode, unspecified severity F33.9 [facility] [address] [place] [address] 47804- 1756 Oct, Major depressive disorder, recurrent episode, unspecified severity F33.9 and Generalized anxiety disorder F41.1 [facility] [id number] [place] [address] 08334- 7254 Sep, [facility] [id number] [place] [address] 02340- 2792 Sep, Major depressive disorder, recurrent episode, unspecified severity F33.9 [facility] [address] [place] [address] 82768- 9757 Sep, Major depressive disorder, recurrent episode, unspecified severity F33.9 [facility] [address] [place] [address] 81489 -0800 18 Sep, 2016 Sore throat J02.9 [place] [id number] [place] [address] 85869- 7588 15 Sep, 2016 Generalized anxiety disorder F41.1 ; Major depressive disorder, recurrent episode, unspecified severity F33.9 and Attention-deficit hyperactivity disorder, predominantly hyperactive type F90.1 [facility] [id number] [place] [address] 65183- 4220 08 Sep, 2016 Major depressive disorder, recurrent episode, unspecified severity F33.9 and Generalized anxiety disorder F41.1 [place] [id number] [place] [address] 09454- 0948 Sep, Psoriatic arthritis L40.50 [place] [id number] [place] [address] 46296- 4178 Sep, Diabetes E11.9 ; 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 ; Back pain M54.9 and Encounter for immunization Z23 [place] [id number] [place] [address] 52814- 0163 Aug, [place] [id number] [place] [address] 44839- 0351 Aug, [place] [id number] [place] [address] 51229- 7178 Jul, Major depressive disorder, recurrent episode, unspecified severity F33.9 ; Attention-deficit hyperactivity disorder, predominantly hyperactive type F90.1 and Generalized anxiety disorder F41.1 [place] [id number] [place] [address] 23851- 1421 Jul, [place] [id number] [place] [address] 01509- 5401 Jul, Major depressive disorder, recurrent, in partial remission F33.41 and Generalized anxiety disorder F41.1 [facility] [id number] [place] [address] 83431- 7614 Jul, [facility] [id number] [place] [address] 71754- 5187 Jul, [facility] [id number] [place] [address] 38116- 0149 Jul, [facility] [id number] [place] [address] 93838- 8067 Jul, [facility] [id number] [place] [address] 79339- 5034 Jul, Diabetes E11.9 [facility] [id number] [place] [address] 98860- 7431 May, [facility] [id number] [place] [address] 23415- 0088 May, [facility] [id number] [place] [address] 07058- 2333 May, [facility] [id number] [place] [address] 28228- 1710 May, Major depressive disorder, recurrent episode, unspecified severity F33.9 ; Generalized anxiety disorder F41.1 and Attention-deficit hyperactivity disorder, predominantly hyperactive type F90.1 [facility] [id number] [place] [address] 19679- 2680 May, [facility] [id number] [place] [address] 86871- 6647 May, Diabetes E11.9 [facility] [id number] [place] [address] 51553- 3822 May, [facility] [address], [place] [address]- 1214 May, [facility] [address] [place] [id number] May, Diabetes E11.9 ; Generalized anxiety disorder F41.1 and Nausea R11.0 [facility] [address] [place] [address] 06646- 7320 May, Psoriatic arthritis L40.50 and Candidiasis of female genitalia B37.3 [facility] [id number] [place] [address] 90640- 0260 May, [facility] [id number] [place] [address] 58639- 1954 Apr, [facility] [id number] [place] [address] 20829- 4320 Apr, [facility] [id number] [place] [address] 24744- 8374 Apr, [facility] [id number] [place] [address] 54056- 3043 Apr, Generalized anxiety disorder F41.1 ; Major depressive disorder, recurrent episode, unspecified severity F33.9 and Attention-deficit hyperactivity disorder, predominantly hyperactive type F90.1 [facility] [id number] [place] [address] 53411- 2874 Apr, [facility] [id number] [place] [phone] Apr, [facility] [id number] [address] Apr, [facility] [id number] [address] Apr, [facility] [id number] [address] Apr, [facility] [id number] [place] [id number] Mar, Attention-deficit hyperactivity disorder, predominantly hyperactive type F90.1 [facility] [id number] [place] [address] [id number] Mar, [facility] [id number] [place] [address] 14052- 4937 Mar, [facility] [id number] [place] [address] 38349- 9641 Mar, Major depressive disorder, recurrent episode, unspecified severity F33.9 and Generalized anxiety disorder F41.1 [place] [address] 35012- 6599 February, Diabetes E11.9 [facility] [id number] [place] [address] 28007 -6146 February, OME (otitis media with effusion), bilateral H65.93 [place] [id number] [place] [address] 18805- 4353 February, Back pain M54.9 [place] [address] 79630- 1783 February, [facility] [id number] [place] [address] 04791- 5463 February, Nausea R11.0 [place] [address] 76221- 9753 February, [place] [id number] [place] [address] 23173- 3612 February, Pre-op evaluation Z01.818 ; Type 2 diabetes mellitus with hyperglycemia E11.65 and half-way 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 [facility] [id number] [place] [address] 22514- 9448 February, [facility] [id number] [place] [address] 62435 -4935 February, Right otitis externa H60.91 [facility] [id number] [place] [address] 74541- 5444 Jan, [facility] [address] 03098- 2687 Jan, Psoriatic arthritis L40.50 and Arthralgia, unspecified joint M25.50 [facility] [id number] [place] [address] 92000- 3582 Jan, Major depressive disorder, recurrent episode, unspecified severity F33.9 ; Generalized anxiety disorder F41.1 and Attention-deficit hyperactivity disorder, unspecified type F90.9 [facility] [id number] [place] [address] 10470- 6663 Jan, [facility] [id number] [place] [address] 58587- 2804 Jan, [facility] [id number] [place] [address] 52934- 2663 Jan, Major depressive disorder, recurrent episode, unspecified severity F33.9 and Generalized anxiety disorder F41.1 [facility] [id number] [place] [address] 68036- 4400 Jan, [facility] [id number] [place] [address] 97174- 0615 Dec, 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 I10 and Arthritis M19.90 [facility] [id number] [place] [address] 22579- 4275 Dec, [facility] [id number] [place] [address] 91575- 5211 Dec, [facility] [id number] [place] [address] 49930- 9168 Dec, [facility] [id number] [place] [address] 59045- 8245 Dec, [facility] [id number] [place] [address] 96815- 0369 Dec, [facility] [address] [address]- 5960 Dec, Major depressive disorder, recurrent episode, unspecified severity F33.9 and Generalized anxiety disorder F41.1 [facility] [id number] [place] [address] 38936- 5686 29 Dec, 2015 Diabetes E11.9 ; Back pain M54.9 ; Thrush B37.0 and 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 I10 [facility] [id number] [place] [address] 11974- 1354 18 Dec, 2015 Major depressive disorder, recurrent episode, unspecified severity F33.9 and Generalized anxiety disorder F41.1 [facility] [id number] [place] [address] 84242- 5107 04 Dec, 2015 Major depressive disorder, recurrent episode, in partial or unspecified remission 296.35 ; Major depressive disorder, recurrent episode, unspecified severity F33.9 and Generalized anxiety disorder 300.02 [facility] [id number] [place] [address] 56636- 5875 Dec, [facility] [address] 88940- 9094 Oct, [facility] [id number] [place] [address] 09725- 5281 Oct, [facility] [id number] [place] [address] 40173- 1593 Oct, [facility] [id number] [place] [address] 94776- 8020 Oct, [facility] [id number] [place] [address] 47010- 1291 Oct, Major depressive disorder, recurrent, moderate F33.1 and Attention-deficit hyperactivity disorder, unspecified type F90.9 [facility] [id number] [place] [address] 35726- 3807 Oct, buttermaker helper (current) use of opiate analgesic Z79.891 [facility] [id number] [place] [address] 06415- 6558 Oct, [facility] [id number] [place] [address] 14940- 9964 Oct, [facility] [id number] [place] [address] 91115 -8934 Sep, URI (upper respiratory infection) J06.9 ; Psoriasis L40.9 ; Cough R05 and Tobacco abuse Z72.0 [facility] [id number] [place] [address] 54449- 6585 Sep, Major depressive disorder, recurrent episode, in partial or unspecified remission 296.35 ; Generalized anxiety disorder 300.02 and ADHD, 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 [facility] [id number] [place] [address] 06553 -0138 Sep, Acute sinusitis, unspecified J01.90 [facility] [id number] [place] [address] 19726- 7329 Sep, [facility] [address] 37737- 0011 Sep, Major depressive disorder, recurrent, moderate F33.1 ; Generalized anxiety disorder F41.1 and Attention-deficit hyperactivity disorder , combined type F90.2 [facility] [id number] [place] [address] 85265- 4245 Sep, [facility] [id number] [place] [address] 76698- 7726 Aug, [facility] [id number] [place] [address] 35857- 5142 Aug, [facility] [id number] [place] [address] 13112- 4376 Aug, Diabetes E11.9 and Anxiety F41.9 [facility] [address] 91714- 9144 Aug, Major depressive disorder, recurrent episode, unspecified severity F33.9 and Generalized anxiety disorder F41.1 [facility] [id number] [place] [address] 86608- 9723 Aug, [facility] [address], [place] [address]- 0345 Jul, [facility] [id number] [place] [address] 71650- 0397 Jul, [facility] [address] [address]- 1681 Jul, [facility] [id number] [place] [address] 94608- 7173 Jul, [facility] [id number] [place] [address] 79233- 2740 Jul, Major depressive disorder, recurrent episode, in partial or unspecified remission 296.35 ; Generalized anxiety disorder 300.02 and ADHD, 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 [facility] [address] [place] [address] 50553- 4955 Jul, Major depressive disorder, recurrent episode, in partial or unspecified remission 296.35 ; Generalized anxiety disorder 300.02 and ADHD, 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 [facility] [id number] [place] [address] 87604- 6758 Jul, [facility] [id number] [place] [address] 43791- 3516 May, [facility] [address], [place] [address]- 2597 May, [facility] [id number] [place] [address] 76733- 1588 May, DM w/o complication type II 250.00 ; Dyspepsia 536.8 and PAD (peripheral artery disease) 443.9 [facility] [id number] [place] [address] 21962- 5320 May, Major depressive disorder, recurrent episode, moderate 296.32 and Generalized anxiety disorder 300.02 [facility] [address], [place] [address]- 3797 May, [facility] [address] [address]- 0266 May, Major depressive disorder, recurrent episode, moderate 296.32 and Generalized anxiety disorder 300.02 [facility] [id number] [place] [address] 36170- 4323 May, [facility] [id number] [place] [address] 03527- 8270 Apr, [facility] [id number] [place] [address] 13276- 8829 Apr, Major depressive disorder, recurrent episode, moderate 296.32 and Generalized anxiety disorder 300.02 [facility] [id number] [place] [address] 17586- 5333 Apr, [facility] [id number] [place] [address] 64909- 8604 Apr, [facility] [id number] [place] [address] 41752- 4311 Apr, Generalized anxiety disorder 300.02 ; ADHD, 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 and Depression, major, recurrent, moderate 296.32 [facility] [id number] [place] [address] 62422- 7817 Apr, Major depressive disorder, recurrent episode, moderate 296.32 and Generalized anxiety disorder 300.02 [facility] [address], [place] [address]- 2054 Apr, [facility] [id number] [place] [address] 82866- 7361 Apr, [facility] [id number] [place] [address] 84469- 1172 Mar, [facility] [id number] [place] [address] [id number]- 5838 Mar, Major depressive disorder, recurrent episode, moderate 296.32 and Generalized anxiety disorder 300.02 [facility] [id number] [place] [address] 78696- 6992 Mar, ADHD, 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 ; Major depressive disorder, recurrent episode, severe, without mention of psychotic behavior 296.33 and Generalized anxiety disorder 300.02 [facility] [id number] [place] [address] 50483- 8972 February, Major depressive disorder, recurrent episode, moderate 296.32 and Generalized anxiety disorder 300.02 [facility] [id number] [place] [address] 01836- 6499 February, [facility] [id number] [place] [address] 25544- 6774 February, [facility] [id number] [place] [address] 92741- 0676 February, [facility] [id number] [place] [address] 61666- 4899 February, [facility] [id number] [place] [address] 75766- 5549 February, DM w/o complication type II 250.00 ; Impacted cerumen 380.4 ; Essential hypertension, benign 401.1 and Irritable colon 564.1 [facility] [id number] [place] [address] 64767- 1146 February, [facility] [id number] [place] [address] 03392- 6926 February, [facility] [id number] [place] [address] 96938- 9370 Jan, [facility] [id number] [place] [address] 08397- 7176 Dec, [facility] [id number] [place] [address] 48180- 6520 Dec, [facility] [id number] [place] [address] 07660- 2194 Dec, [facility] [id number] [place] [address] 80576- 4026 20 Dec, 2014 [facility] [place] [facility] [address] [id number] [place] [address]- 6710 16 Dec, 2014 [facility] [place] [facility] [address] [id number] [place] [address]- 1406 16 Dec, 2014 [facility] [place] [facility] [address] [facility] [id number] [place] [address]- 2304 10 Dec, 2014 [facility] [place] [facility] [address] [facility] [id number] [place] [address]- 8281 10 Dec, 2014 [facility] [place] [facility] [address] [id number] [place] [address]- 0695 02 Dec, 2014 [facility] [place] [facility] [address] [facility] [id number] [place] [address]- 0543 Dec, [facility] [place] [facility] [id number] [place] [address]- 4557 19 Dec, 2014 [facility] [place] [facility] [address] [facility] [id number] [place] [address]- 4106 Dec, 2014 [facility] [place] [facility] [address] [facility] [id number] [place] [address]- 8423 Dec, 2014 [facility] [place] [facility] [address] [facility] [id number] [place] [address]- 1148 Dec, 2014 [facility] [place] [facility] [address] [facility] [id number] [place] [address]- 5292 Dec, 2014 [facility] [place] [facility] [address] [facility] [id number] [place] [address]- 1384 Dec, 2014 [facility] [place] [facility] [address] [facility] [id number] [place] [address]- 7309 Oct, [facility] [place] [facility] [address] [facility] [id number] [place] [address]- 7226 Oct, [facility] [place] [facility] [address] [facility] [id number] [address]- 7483 Oct, [facility] [place] [facility] [address] [id number] [place] [address]- 1301 Oct, [facility] [place] [facility] [address] [id number] [place] [address]- 5199 Oct, [facility] [place] [facility] [address] [id number] [place] [address]- 2046 Oct, [facility] [place] [facility] [address] [id number] [place] [address]- 5375 Oct, [facility] [address] [id number] [place] [address]- 0278 Oct, [facility] [place] [facility] [address] [id number] [place] [address]- 8840 Oct, [facility] [address] [id number] [place] [address]- 9801 Oct, [facility] [address] [id number] [place] [address]- 3149 Oct, [facility] [place] [facility] [address] [id number] [place] [address]- 1349 Sep, [facility] [place] [facility] [address] [id number] [place] [address]- 3309 Sep, [facility] [place] [facility] [address] [id number] [place] [address]- 6385 Sep, [facility] [place] [facility] [address] [id number] [place] [address]- 0041 Sep, [facility] [place] [facility] [address] [id number] [place] [address]- 8594 Sep, [facility] [place] [facility] [address] [id number] [place] [address]- 4338 Sep, [facility] [place] [facility] [address] [id number] [place] [address]- 1682 Sep, [facility] [place] [facility] [address] [id number] [address]- 0497 Sep, [facility] [place] [facility] [address] [id number] [place] [address]- 9969 Aug, [facility] [place] [facility] [address] [id number] [place] [address]- 8799 Aug, [facility] [place] [facility] [address] [id number] [place] [address]- 2034 Aug, [facility] [place] [facility] [address] [id number] [place] [address]- 9083 Aug, [facility] [place] [facility] [address] [id number] [place] [address]- 0927 Aug, [facility] [place] [facility] [address] [id number] [place] [address]- 6502 Aug, [facility] [place] [facility] [address] [id number] [place] [address]- 4865 Aug, [facility] [place] [facility] [address] [id number] [place] [address]- 3027 Aug, [facility] [place] [facility] [address] [id number] [place] [address]- 7296 Aug, [facility] [place] [facility] [address] [id number] [place] [address]- 3756 Aug, [facility] [place] [facility] [address] [id number], [place] [address]- 6971 Aug, [facility] [place] [facility] [address] [id number], [place] [address]- 2958 Aug, [facility] [place] [facility] [address] [id number], [place] [address]- 4358 Aug, [facility] [place] [facility] [address] [id number], [place] [address]- 2856 Aug, [facility] [place] [facility] [address] [id number] [place] [address]- 2063 Jul, [facility] [place] [facility] [address] [id number] [place] [address]- 8023 Jul, [facility] [place] [facility] [address] [id number] [place] [address]- 1547 Jul, [facility] [place] [facility] [address] [id number] [place] [address]- 0366 Jul, [facility] [place] [facility] [address] [id number] [place] [address]- 6059 Jul, [facility] [place] [facility] [address] [id number] [place] [address]- 7468 Jul, [facility] [place] [facility] [address] [id number] [place] [address]- 0795 Jul, [facility] [place] [facility] [address] [id number] [place] [address]- 1415 Jul, [facility] [place] [facility] [address] [id number] [place] [address]- 7719 Jul, 2013 [facility] [place] [facility] [address] [id number] [place] [address]- 7041 Jul, [facility] [place] [facility] [address] [id number] [place] [address]- 4939 Jul, [facility] [place] [facility] [address] [id number] [place] [address]- 8455 Jul, [facility] [place] [facility] [address] [id number] [place] [address]- 2547 Jul, [facility] [place] [facility] [address] [id number] [place] [address]- 2548 Jul, [facility] [place] [facility] [address] [id number] [place] [address]- 4011 May, [facility] [place] [facility] [address] [id number] [place] [address]- 7690 May, [facility] [place] [facility] [address] [id number] [place] [address]- 7089 May, [facility] [place] [facility] [address] [id number] [place] [address]- 9240 May, [facility] [place] [facility] [address] [id number] [place] [address]- 0574 May, [facility] [place] [facility] [address] [id number] [place] [address]- 4989 May, [facility] [place] [facility] [address] [id number] [place] [address]- 2150 May, [facility] [place] [facility] [address] [id number] [place] [address]- 1786 May, [facility] [place] [facility] [address] [id number] [place] [address]- 1061 May, [facility] [place] [facility] [address] [id number] [place] [address]- 5834 May, [facility] [place] [facility] [address] [id number] [place] [address]- 8810 May, [facility] [place] [facility] [address] [id number] [place] [address]- 1533 May, [facility] [place] [facility] [address] [id number] [place] [address]- 8783 Apr, [facility] [place] [facility] [address] [id number] [place] [address]- 0101 Apr, [facility] [place] [facility] [address] [id number] [place] [address]- [address] Apr, [facility] [place] [facility] [address] [id number] [place] [address] Apr, [facility] [place] [facility] [address] [id number] [place] [address] Apr, [facility] [place] [facility] [address] [id number] [place] [address] Apr, [facility] [place] [facility] [address] [id number] [place] [address] Mar, [facility] [place] [facility] [address] [id number] [place] [address] Mar, [facility] [place] [facility] [address] [id number] [place] [address] Mar, [facility] [place] [facility] [address] [id number] [place] [address] Mar, [facility] [place] [facility] [address] [id number] [place] [address] Mar, [facility] [place] [facility] [address] [id number] [place] [address] Mar, [facility] [place] [facility] [address] [id number] [place] [address] Mar, [facility] [place] [facility] [address] [id number] [place] [address] Mar, [facility] [place] [facility] [address] [id number] [place] [address] Mar, [facility] [place] [facility] [address] [id number] [place] [address]- [address] Mar, [facility] [place] [facility] [address] [id number] [place] [address] Mar, [facility] [place] [facility] [address] [id number] [place] [address] Mar, [facility] [place] [facility] [address] [id number] [place] [address] Mar, [facility] [place] [facility] [address] [id number] [place] [address] February, [facility] [place] [facility] [address] [id number] [place] [address] February, [facility] [place] [facility] [address] [id number] [place] [address] February, [facility] [place] [facility] [address] [id number] [place] [address] February, [facility] [place] [facility] [address] [id number] [place] [address] February, [facility] [place] [facility] [address] [id number] [place] [address]- [address] February, [facility] [place] [facility] [address] [id number] [place] [address] February, [facility] [place] [facility] [address] [id number] [place] [address] February, [facility] [place] [facility] [address] [id number] [place] [address] February, [facility] [place] [facility] [address] [id number] [place] [address] February, [facility] [place] [facility] [address] [id number] [place] [address] February, [facility] [place] [facility] [address] [id number] [place] [address] February, [facility] [place] [facility] [address] [id number] [place] [address] February, [facility] [place] [facility] [address] [id number] [place] [address] February, [facility] [place] [facility] [address] [id number] [place] [address] Jan, [facility] [place] [facility] [address] [id number] [place] [address] Jan, [facility] [place] [facility] [address] [id number] [place] [address] Jan, [facility] [place] [facility] [address] [id number] [place] [address] Jan, [facility] [place] [facility] [address] [id number] [place] [address]- [address] Jan, [facility] [place] [facility] [address] [id number] [place] [address] Jan, [facility] [place] [facility] [address] [id number] [place] [address] Jan, [facility] [place] [facility] [address] [id number] [place] [address]- [address] Jan, [facility] [place] [facility] [address] [id number] [place] [address]- [address] Jan, [facility] [place] [facility] [address] [id number] [place] [address]- [address] Dec, [facility] [place] [facility] [address] [id number] [place] [address]- [address] Dec, [facility] [place] [facility] [address] [id number] [place] [address] Dec, [facility] [place] [facility] [address] [id number] [place] [address]690 Dec, [facility] [place] [facility] [address] [id number] [place] [address] 78[address] Dec, [facility] [place] [facility] [address] [id number] [place] [address] 5194 Dec, [facility] [place] [facility] [address] [id number] [place] [address] 6[address] Dec, [facility] [place] [facility] [address] [id number] [place] [address] 2176 Dec, [facility] [place] [facility] [address] [id number] [place] [address] Dec, [facility] [place] [facility] [address] [id number] [place] [address]- 3920 Dec, [facility] [place] [facility] [address] [id number] [place] [address]- 7978 Dec, [facility] [place] [facility] [address] [id number] [place] [address]- 6136 13 Dec, 2013 [facility] [place] [facility] [address] [id number] [place] [address]- 0446 Dec, [facility] [place] [facility] [address] [id number] [place] [address] 4216 10 Dec, 2013 [facility] [place] [facility] [address] [id number] [place] [address]- 7716 Dec, [facility] [place] [facility] [address] [id number] [place] [address]- 2549 Dec, [facility] [place] [facility] [address] [id number] [place] [address]- 6066 Dec, [facility] [place] [facility] [address] [id number] [place] [address]- 9293 Oct, [facility] [place] [facility] [address] [id number] [place] [address]- 1783 Oct, [facility] [place] [facility] [address] [id number] [place] [address]- 4340 Oct, [facility] [place] [facility] [address] [id number] [place] [address]- 7589 Oct, [facility] [place] [facility] [address] [id number] [place] [address]- 3398 Oct, [facility] [place] [facility] [address] [id number] [place] [address]- 6806 Oct, [facility] [place] [facility] [address] [id number] [place] [address]- 2547 Oct, [facility] [place] [facility] [address] [id number] [place] [address]- 9758 Oct, [facility] [place] [facility] [address] [id number] [place] [address]- 2546 Oct, [facility] [place] [facility] [address] [id number] [place] [address]- 7226 16 Oct, 2013 [facility] [address] [id number] [place] [address]- 9511 Oct, [facility] [place] [facility] [address] [id number] [place] [address]- 5746 Oct, [facility] [place] [facility] [address] [id number] [place] [address]- 4914 Oct, [facility] [place] [facility] [address] [id number] [place] [address]- 6534 Oct, [facility] [place] [facility] [address] [id number] [place] [address]- 1347 31 Sep, 2013 [facility] [place] [facility] [address] [id number] [place] [address]- 1223 31 Sep, 2013 [facility] [place] [facility] [address] [id number] [place] [address]- 1927 30 Sep, 2013 [facility] [place] [facility] [address] [id number] [place] [address]- 7168 30 Sep, 2013 [facility] [place] [facility] [address] [id number] [place] [address]- 8047 Sep, [facility] [place] [facility] [address] [id number] [place] [address]- 1311 Sep, [facility] [place] [facility] [address] [id number], [place] [address]- 8084 Sep, [facility] [place] [facility] [address] [id number], [place] [address]- 0785 27 Sep, 2013 [facility] [place] [facility] [address] [id number] [place] [address]- 1453 Sep, [facility] [place] [facility] [address] [id number] [place] [address]- 8386 27 Sep, 2013 [facility] [place] [facility] [address] [id number] [place] [address]- 4797 16 Sep, 2013 [facility] [place] [facility] [address] [id number] [place] [address] 16 Sep, 2013 [facility] [address] [id number] [place] [address]- 2339 13 Sep, 2013 [facility] [place] [facility] [address] [id number] [place] [address] 13 Sep, 2013 [facility] [address] [id number] [place] [address]- 8079 10 Sep, 2013 [facility] [place] [facility] [address] [id number] [place] [address]- 0082 10 Sep, 2013 [facility] [address] [id number] [place] 3459 02 Sep, 2013 [facility] [place] [facility] [address] [id number] [place] [address]- 3856 02 Sep, 2013 [facility] [address] [facility] [id number] [place] [address]- 3628 15 Aug, 2013 [facility] [place] [facility] [address] [id number] [place] [address]- 8638 15 Aug, 2013 [facility] [place] [facility] [address] [id number] [place] [address]- 9149 16 Jul, 2013 [facility] [place] [facility] [address] [facility] [id number] [place] [address]- 1586 16 Jul, 2013 [facility] [place] [facility] [address] [id number] [place] [address]- 5806 14 Jul, 2013 [facility] [place] [facility] [address] [id number], [place] [address]- 4835 14 Jul, 2013 [facility] [place] [facility] [address] [id number] [place] [address]- 0278 08 Jul, 2013 [facility] [place] [facility] [address] [facility] [id number] [place] [address]- 8226 20 Jul, 2013 [facility] [place] [facility] [address] [id number] [address] 19 Sep2012 [facility] [place] [facility] [address] [id number] [place] [address]- 7847 13 Jul, 2012 [facility] [place] [facility] [address] [id number] [place] [address]- 3907 08 Jul, 2012 [facility] [place] [facility] [address] [id number] [place] [address]- 5959 06 Jul, 2012 [facility] [place] [facility] [address] [id number] [place] [address]- 4531 Jul, 2012 [facility] [address] [id number] [place] [address]- 5276 06 Jul, 2012 [facility] [place] [facility] [address] [id number] [place] [address]- 5534 Jul, 2012 [facility] [address] [id number] [place] [address]- 3537 May, [facility] [place] [facility] [address] [id number] [place] [address]- 9661 May, [facility] [place] [facility] [address] [id number] [place] [address]- 9899 May, [facility] [place] [facility] [address] [id number] [place] [address]- 8866 May, [facility] [place] [facility] [address] [id number] [place] [address]- 7711 Apr, [facility] [place] [facility] [address] [id number] [place] [address]- 9436 Apr, [facility] [place] [facility] [address] [id number] [place] [address]- 3579 Apr, [facility] [place] [facility] [address] [id number] [place] [address]- 0786 Mar, [facility] [place] [facility] [address] [id number] [place] [address]- 2356 Mar, [facility] [place] [facility] [address] [id number] [place] [address]- 2546 Mar, [facility] [address] [id number] [place] [address]- 0251 Mar, [facility] [address] [id number] [place] [address]- 6094 February, [facility] [address] [id number] [place] [address]- 9146 February, [facility] [address] [id number] [place] [address]- 2133 Jan, [facility] [address] [id number] [place] [address]- 8827 Dec, [facility] [address] [facility] [id number] [place] [address]- 5955 Dec, [facility] [address] [facility] [id number] [place] [address]- 5173 Dec, [facility] [place] [facility] [address] [id number] [place] [address]- 7251 Dec, [facility] [address] [id number] [place] [address]- 5272 28 Dec, 2012 [facility] [address] [facility] [id number] [place] [address]- 1346 27 Dec, 2012 [facility] [address] [id number] [place] [address]- 5844 26 Dec, 2012 [facility] [place] [facility] [address] [id number] [place] [address]- 3947 25 Dec, 2012 [facility] [place] [facility] [address] [id number] [place]896 22 Dec, 2012 [facility] [place] [facility] [address] [id number] [place] 4222 15 Dec, 2012 [facility] [place] [facility] [address] [facility] [id number] [place]125 14 Dec, 2012 [facility] [place] [facility] [address] [id number] [place] [address]- 6219 Oct, [facility] [address] [id number] [place] [address]- 2191 Oct, [facility] [place] [facility] [address] [id number] [place] [address]- 4957 Oct, [facility] [address] [id number] [place] [address]- 4565 Oct, [facility] [address] [id number] [place] [address]- 8588 Sep, [facility] [place] [facility] [address] [id number] [place] [address]- 9718 Sep, [facility] [address] [id number] [place] [address]- 0344 Sep, [facility] [address] [id number] [place] [address]- 3753 Sep, [facility] [address] [id number] [place] [address]- 5528 Sep, [facility] [place] [facility] [address] [id number] [place] [address]- 0908 Sep, [facility] [place] [facility] [address] [id number] [place] [address]- 6404 Aug, [facility] [place] [facility] [address] [id number] [place] [address]- 1663 Aug, [facility] [place] [facility] [address] [id number] [place] [address]- 7870 Aug, [facility] [place] [facility] [address] [id number] [place] [address]- 0556 Aug, [facility] [place] [facility] [address] [id number] [place] [address]- 6894 Aug, [facility] [place] [facility] [address] [id number] [place] [address]- 5946 Aug, [facility] [place] [facility] [address] [id number] [place] [address]- 4355 Jul, [facility] [place] [facility] [address] [id number] [place] [address]- 1076 17 Jul, 2012 [facility] [place] [facility] [address] [id number] [place] [address]- 9746 16 Jul, 2012 [facility] [place] [facility] [address] [id number] [place] [address]- 2211 16 Jul, 2012 [facility] [place] [facility] [address] [id number] [place] [address]- 5965 Jul, [facility] [place] [facility] [address] [id number] [place] [address]- 0933 Jul, [facility] [place] [facility] [address] [id number] [place] [address]- 3437 27 Jul, 2012 [facility] [place] [facility] [address] [id number] [place] [address]- 2314 21 Jul, 2012 [facility] [place] [facility] [address] [id number] [place] [address]- 9484 20 Jul, 2012 [facility] [place] [facility] [address] [id number] [place] [address]- 1930 11 Jul, 2012 [facility] [place] [facility] [address] [id number] [place] [address]- 0936 Jul, [facility] [place] [facility] [address] [id number] [place] [address]- 2527 29 May, 2012 [facility] [place] [facility] [address] [id number] [place] [address]- 8113 May, [facility] [place] [facility] [address] [facility] [id number] [place] [address]- 7982 May, [facility] [place] [facility] [address] [id number] [place] [address]- 6181 May, [facility] [place] [facility] [address] [id number] [place] [address]- 7013 30 Apr, 2012 [facility] [address] [id number] [place] [address]- 7586 Apr, [facility] [place] [facility] [address] [id number] [place] [address]- 3956 Apr, [facility] [address] [id number] [place] [address]- 7178 Apr, [facility] [place] [facility] [address] [id number] [place] [address]- 2548 Apr, [facility] [address] [id number] [place] [address]- 1425 Apr, [facility] [address] [id number] [place] [address]- 5804 Apr, [facility] [place] [facility] [address] [id number] [place] [address]- 2036 Apr, [facility] [address] [id number] [place] [address]- 6400 Mar, [facility] [place] [facility] [address] [id number] [place] [address]- 9108 Mar, [facility] [address] [id number] [place] [address]- 4781 Mar, [facility] [place] [facility] [address] [id number] [place] [address]- 2548 15 Mar, 2012 [facility] [place] [facility] [address] [id number] [place] [address]- 2544 14 Mar, 2012 [facility] [place] [facility] [address] [id number] [place] [address]- 6274 12 Mar, 2012 [facility] [place] [facility] [address] [id number] [place] [address]- 1299 12 Mar, 2012 [facility] [place] [facility] [address] [id number] [place] [address]- 7047 11 Mar, 2012 [facility] [address] [id number] [place] [address]- 7090 08 Mar, 2012 [facility] [place] [facility] [address] [id number] [place] [address]- 8056 February, [facility] [place] [facility] [address] [id number] [place] [address]- 2706 February, [facility] [place] [facility] [address] [id number] [place] [address]- 2656 February, [facility] [place] [facility] [address] [id number] [place] [address]- 8025 February, [facility] [place] [facility] [address] [id number] [place] [address]- 4206 Jan, [facility] [place] [facility] [address] [id number] [place] [address]- 3206 Jan, [facility] [place] [facility] [address] [id number] [place] [address]- 4151 28 Dec, 2011 [facility] [place] [facility] [address] [id number] [place] [address]- 9348 15 Dec, 2011 [facility] [place] [facility] [address] [id number] [place] [address]- 4909 14 Dec, 2011 [facility] [place] [facility] [address] [id number] [place] [address]- 5396 Dec, [facility] [place] [facility] [address] [id number] [place] [address]- 9206 Dec, [facility] [place] [facility] [address] [id number] [place] [address]- 2879 Dec, [facility] [place] [facility] [address] [id number] [place] [address]- 3486 Dec, [facility] [place] [facility] [address] [id number] [place] [address]- 5416 Dec, [facility] [place] [facility] [address] [id number] [place] [address]- 2741 07 Dec, 2011 [facility] [address] [id number] [place] [address]- 2876 Dec, [facility] [address] [id number] [place] 6856 07 Dec, 2011 [facility] [address] [id number] [place] [address]- 8646 Dec, [facility] [address] [id number] [place] [address]- 2125 Oct, [facility] [address] [id number] [place] [address]- 7235 Oct, [facility] [address] [id number] [place] [address]- 1860 Oct, [facility] [address] [id number] [place] [address]- 8152 Oct, [facility] [address] [id number] [place] [address]- 3121 Oct, [facility] [address] [facility] [id number] [place] [address]- 6683 Oct, [facility] [address] [facility] [id number] [place] [address]- 8935 16 Oct, 2011 [facility] [address] [id number] [place] [address]- 2361 Oct, [facility] [address] [id number] [place] [address]- 7048 Sep, [facility] [address] [id number] [place] [address]- 5973 Sep, [facility] [address] [id number] [place] [address]- 0206 Sep, [facility] [address] [id number] [place] [address]- 0375 Aug, [facility] [address] [id number] [address]- 6625 Aug, [facility] [address] 3972 Aug, [facility] [address], [place] [address]- 7751 Aug, [facility] [id number] [place] [address]- 8459 Aug, [facility] [address], [place] [address]- 7270 Jul, [facility] [id number] [place] [address]- 2416 Jul, [facility] [id number] [place] [address]- 0235 May, [facility] [id number] [place] [address] 3[address]- 2890 Dec, [facility] [address], [place] [address]- 0895 Oct, [facility] [address], [place] [address]- 3173 Sep, [facility] [address], [place] [address]- 9599 Sep, [facility] [address], [place] [address]- 6406 Sep, IMMUNIZATIONS No Known Immunizations SOCIAL HISTORY Never Assessed REASON FOR VISIT home health PLAN OF CARE VITAL SIGNS MEDICATIONS Unknown [...] veinous reflux Surgical History Left Knee SOA-Dr. Zafuta-[facility] 05/19/16 Surgical History Colonoscopy- Dr Castanon 01/26/2017 Hospitalization History surgeries Hospitalization History Left Knee SOA--Dr. Melendrez--[facility] Hospitalization History Septic shock, UTI-[facility] 07/27/17 Hospitalization History Multiple falls, hyperglycemia, sepsis 07/2017 Hospitalization History Alcoholism, depression, DM, Falls-[facility] 08/23/17 Hospitalization History COPD exacerbation-[facility] 11/25/17 Hospitalization History COPD exacerbation-[facility] 11/28/17 Hospitalization History [facility]- AMS, Hyperglycemia 01/19/2018
[2018-05-10 03:43] LABS: BACTERIA,URINE FEW /HPF; RBC,URINE >100 /HPF; WBC,URINE 25-50 /HPF
--- OUTSIDE RECORDS SUMMARY | 2018-05-10 03:43 | XMS REPORT ---
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 Active 802357942 Problem Psoriatic arthritis L40.50 Active 390436616 Problem Psychophysiological insomnia F51.04 Active 41367395 Problem Other specified 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 Active 965194637 Problem Obesity (BMI 30-39.9) E66.9 Active 106339553 Problem Major depressive disorder, recurrent, moderate F33.1 Active 22470161 Problem Essential hypertension I10 Active 11445172 Problem Type 2 diabetes mellitus with hyperglycemia E11.65 Active 949347198200323 Problem Alcoholism F10.20 Active 6999957 Problem Frequent falls R29.6 Active 405575221 Problem Benzodiazepine abuse F13.10 Active 060475927 Problem PTSD (post-traumatic stress disorder) F43.10 Active 60619897 Problem Eating disorder F50.9 Active 20039394 Problem Attention-deficit hyperactivity disorder, combined type F90.2 Active 11704303 Problem COPD exacerbation J44.1 Active 785109821 Problem Anxiety F41.9 Active 44160459 Problem Decubitus ulcer of left buttock, stage 2 L89.322 Active 751485212 Problem BMI 40.0-44.9, adult Z68.41 Active 635568454 Problem Alcohol abuse F10.10 Active 97137146 Problem Pneumonia due to methicillin resistant Staphylococcus aureus, unspecified laterality, unspecified part of lung J15.212 Active 407153668827039 Problem Type 2 diabetes mellitus with unspecified complications E11.8 Active 57152749 Problem Attention-deficit hyperactivity disorder, predominantly hyperactive type F90.1 Active 964954348 Problem Type 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 Active 10719605 Problem Ulcer of right foot, unspecified ulcer stage L97.519 Active 82482098 Problem Attention deficit R41.840 Active 25249042 Problem Mental disorder, not otherwise specified F99 Active 43546324 Problem Insomnia due to other mental disorder F51.05 Active 74304859 ALLERGIES No Information ENCOUNTERS Encounter Location Date Diagnosis [place] [id number] [place] [address] 77443- 2998 May, [place] [address] 90115- 8622 Apr, [place] [address] 80153- 8777 Apr, [place] [id number] [place] [address] 66924- 9675 Mar, Major depressive disorder, recurrent episode, unspecified severity F33.9 ; Generalized anxiety disorder F41.1 and Eating disorder F50.9 [place] [id number] [place] [address] 03115- 7033 Mar, Medicare annual wellness visit, initial Z00.00 ; Type 2 diabetes mellitus with hyperglycemia E11.65 ; BMI 40.0-44.9, adult Z68.41 ; COPD exacerbation J44.1 ; Major depressive disorder, recurrent, moderate F33.1 ; Generalized anxiety disorder F41.1 ; 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 I10 ; Arthritis M19.90 and 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 [place] [id number] [place] [address] 34142- 2210 February, Yeast infection B37.9 [place] [id number] [place] [address] 00982- 1196 February, [place] [address] 06020- 5217 Jan, [facility] [address] [place] [address] 48390- 9302 Dec, Major depressive disorder, recurrent episode, unspecified severity F33.9 ; Generalized anxiety disorder F41.1 and Eating disorder F50.9 [facility] [id number] [place] [address] 55589- 2495 Dec, [facility] [address] 83427- 4900 Dec, [facility] [id number] [place] [address] 07662- 5826 Dec, [facility] [id number] [place] [address] 47477- 8415 Dec, Increased urinary frequency R35.0 ; Frequent falls R29.6 ; Decubitus ulcer of left buttock, stage 2 L89.322 ; Benzodiazepine abuse F13.10 ; BMI 40.0-44.9, adult Z68.41 and Yeast infection B37.9 [facility] [id number] [place] [address] 81286- 2156 Dec, [facility] [id number] [place] [address] 71175- 0622 Dec, [facility] [id number] [place] [address] 55120- 3639 Dec, Increased urinary frequency R35.0 [facility] [id number] [place] [address] 41222- 7757 Dec, Increased urinary frequency R35.0 [facility] [id number] [place] [address] 65966- 7197 Dec, Generalized anxiety disorder F41.1 ; Major depressive disorder, recurrent, moderate F33.1 and Psychophysiological insomnia F51.04 [facility] [address] [place] [address] 08850- 2010 Dec, BMI 40.0-44.9, adult Z68.41 ; Type 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 ; Pneumonia due to methicillin resistant Staphylococcus aureus, unspecified laterality, unspecified part of lung J15.212 and COPD exacerbation J44.1 [facility] [address] [address] Dec, [facility] [id number] [place] [address] [id number] Dec, [facility] [address] [id number] Oct, [facility] [id number] [place] [address] 76690 -7489 Oct, Frequency of urination R35.0 ; Bronchitis J40 and BMI 40.0- 44.9, adult Z68.41 [facility] [id number] [place] [address] [id number] Oct, [place] [address] [place] [address] 35982- 4659 Oct, [place] [id number] [place] [address] 34477- 3723 Oct, BMI 40.0-44.9, adult Z68.41 ; Type 2 diabetes mellitus with hyperglycemia E11.65 ; Essential hypertension I10 ; Vaginal yeast infection B37.3 ; Anxiety F41.9 and Alcoholism F10.20 [place] [address], [place] [address]- 4001 Oct, [place] [address] [place] [address] 22468- 3323 Oct, [place] [id number] [place] [address] 93917- 1912 Sep, [place] [address] [place] [address] 01376- 5854 Sep, Major depressive disorder, recurrent episode, unspecified severity F33.9 ; Generalized anxiety disorder F41.1 and Eating disorder F50.9 [place] [address] [place] [address] 22156- 4945 14 Sep, 2017 Major depressive disorder, recurrent, moderate F33.1 ; Type 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 ; Alcohol abuse F10.10 ; Obesity (BMI 30-39.9) E66.9 and Psychophysiological insomnia F51.04 [place] [id number] [place] [address] 93288- 4387 Sep, Diabetes E11.9 and Generalized anxiety disorder F41.1 [place] [id number] [place] [address] 95909- 6752 Sep, Major depressive disorder, recurrent episode, unspecified severity F33.9 ; Generalized anxiety disorder F41.1 and Eating disorder F50.9 [place] [id number] [place] [address] 55671- 8464 Sep, [place] [id number] [place] [address] 46022- 9634 Aug, [place] [id number] [place] [address] 34990- 7172 Aug, Insomnia due to other mental disorder F51.05 ; Mental disorder, not otherwise specified F99 ; Attention deficit R41.840 ; Ulcer of right foot, unspecified ulcer stage L97.519 ; Cough R05 ; Diabetes E11.9 ; Sore in mouth K13.79 ; Generalized anxiety disorder F41.1 ; Major depressive disorder , recurrent episode, unspecified severity F33.9 and BMI 40.0-44.9, adult Z68.41 [place] [address] [place] [address] 23889- 9512 Aug, [place] [id number] [place] [address] 27116- 4991 Aug, [place] [id number] [place] [address] 15376- 8252 Aug, [place] [id number] [place] [address] 93543- 8386 Aug, [facility] [address] [facility] [id number] [address]- 1316 Aug, Diabetes E11.9 [facility] [employer] [address] [facility] [place] [id number] Aug, Falling R29.6 ; Alcohol abuse F10.10 ; Major depressive disorder, recurrent episode, unspecified severity F33.9 ; 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 I10 ; Type 2 diabetes mellitus with unspecified complications E11.8 and USP 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 [facility] [address] [place] [id number] [id number] Aug, [facility] [employer] [address] [place] [id number] Aug, Alcohol abuse F10.10 ; Major depressive disorder, recurrent episode, unspecified severity F33.9 ; Generalized anxiety disorder F41.1 ; USP 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 ; Psoriatic arthritis L40.50 and Diabetes E11.9 [facility] [address] [id number] [id number] Aug, [facility] [address] [id number] [id number] Jul, [facility] [id number] [address]- 7826 Jul, [facility] [id number] [address]- 5005 Jul, Generalized anxiety disorder F41.1 [facility] [id number] [address]- 3940 Jul, [facility] [address] [facility] [id number], [place] [address]- 1547 Jul, [facility] [id number] [address] 2773 Jul, Generalized anxiety disorder F41.1 ; Major depressive disorder, recurrent episode, unspecified severity F33.9 ; PTSD (post-traumatic stress disorder) F43.10 ; Eating disorder F50.9 and Attention-deficit hyperactivity disorder, predominantly hyperactive type F90.1 [facility] [address] [place] [address] 96004- 7799 Jul, [facility] [id number] [place] [address] 51395- 9779 Jul, [facility] [id number] [place] [address] 80949- 2321 Jul, USP 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 ; Type 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 ; Urinary tract infection, site not specified N39.0 ; Sepsis, unspecified organism A41.9 and Essential hypertension I10 [facility] [id number] [place] [address] [id number] Jul, [facility] [id number] [place] [address] 59447 -9962 Jul, [facility] [id number] [place] [address] 37991- 5620 Jul, Generalized anxiety disorder F41.1 [place] [id number] [place] [address] 89727- 7140 Jul, [facility] [id number] [place] [address] 73085- 4472 Jul, Generalized anxiety disorder F41.1 [facility] [id number] [place] [address] 11867- 7439 May, Generalized anxiety disorder F41.1 ; Major depressive disorder, recurrent episode, unspecified severity F33.9 ; PTSD (post-traumatic stress disorder) F43.10 ; Eating disorder F50.9 and Attention-deficit hyperactivity disorder, predominantly hyperactive type F90.1 [facility] [id number] [place] [address] 98874- 5986 May, Diabetes E11.9 [facility] [id number] [place] [address] 11427 -1774 14 May, 2017 Acute non-recurrent maxillary sinusitis J01.00 and Diabetes E11.9 [facility] [address], [place] [address]- 6694 May, [facility] [address], [place] [address]- 9165 May, [facility] [address], [place] [address]- 5271 May, Generalized anxiety disorder F41.1 [facility] [address], [place] [address]- 4410 Apr, [facility] [address] [place] [address] 04076- 0920 Apr, [facility] [id number] [place] [address] 80862- 3380 Apr, [facility] [address] [place] [address] 36749- 2381 Apr, Generalized anxiety disorder F41.1 ; Major depressive disorder, recurrent episode, unspecified severity F33.9 ; PTSD (post-traumatic stress disorder) F43.10 ; Eating disorder F50.9 and Attention-deficit hyperactivity disorder, predominantly hyperactive type F90.1 [facility] [address], [place] [address]- 8726 Apr, Major depressive disorder, recurrent, moderate F33.1 [facility] [address], [place] [address]- 9426 Mar, Diabetes E11.9 [facility] [address], [place] [address]- 3186 Mar, Attention-deficit hyperactivity disorder, combined type F90.2 [facility] [address], [place] [address]- 9211 Mar, [facility] [address], [place] [address]- 0063 Mar, Diabetes E11.9 [facility] [id number] [place] [address] 16933- 7076 Mar, USP 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 ; Psoriatic arthritis L40.50 ; Other specified 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 and 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 I10 [place] [id number] [place] [address] 69145- 1185 February, Back pain M54.9 [place] [address] 74368- 0787 February, Attention-deficit hyperactivity disorder, combined type F90.2 [place] [id number] [place] [address] 49909- 1918 February, Major depressive disorder, recurrent episode, unspecified severity F33.9 and Generalized anxiety disorder F41.1 [place] [id number] [place] [address] 56560- 1641 Jan, Attention-deficit hyperactivity disorder, combined type F90.2 [place] [id number] [place] [address] 74487- 5571 Jan, Major depressive disorder, recurrent, moderate F33.1 ; Generalized anxiety disorder F41.1 and Attention-deficit hyperactivity disorder , combined type F90.2 [place] [id number] [place] [address] 74682- 2683 Dec, Major depressive disorder, recurrent episode, unspecified severity F33.9 ; Generalized anxiety disorder F41.1 and Attention-deficit hyperactivity disorder, predominantly hyperactive type F90.1 [place] [id number] [place] [address] 45580- 8815 Dec, Major depressive disorder, recurrent episode, unspecified severity F33.9 and Generalized anxiety disorder F41.1 [place] [id number] [place] [address] 26903- 3975 Dec, [place] [id number] [place] [address] 93054- 3795 Dec, [place] [address] 49268- 1686 Dec, Major depressive disorder, recurrent episode, unspecified severity F33.9 and Generalized anxiety disorder F41.1 [facility] [id number] [place] [address] 75659- 3480 Dec, Back pain M54.9 [facility] [id number] [place] [address] 28859- 3803 17 Dec, 2016 Eustachian tube dysfunction, right H69.81 and Arthritis M19.90 [facility] [id number] [place] [address] 93883- 6025 Dec, [place] [id number] [place] [address] 81626- 8443 Dec, [facility] [id number] [place] [address] 39847- 8022 Dec, Major depressive disorder, recurrent episode, unspecified severity F33.9 [facility] [id number] [place] [address] 50266- 8537 Oct, [facility] [id number] [place] [address] 41573 -7421 Oct, Acute non-recurrent pansinusitis J01.40 and Sore throat J02.9 [facility] [id number] [place] [address] 38883- 5253 Oct, Major depressive disorder, recurrent episode, unspecified severity F33.9 [facility] [address] [place] [address] 95690- 8412 Oct, Major depressive disorder, recurrent episode, unspecified severity F33.9 and Generalized anxiety disorder F41.1 [place] [id number] [place] [address] 66461- 5070 Sep, [facility] [id number] [place] [address] 33464- 9537 Sep, Major depressive disorder, recurrent episode, unspecified severity F33.9 [facility] [address] [place] [address] 91272- 5668 Sep, Major depressive disorder, recurrent episode, unspecified severity F33.9 [facility] [address] [place] [address] 99607 -6235 18 Sep, 2016 Sore throat J02.9 [place] [id number] [place] [address] 45691- 3886 15 Sep, 2016 Generalized anxiety disorder F41.1 ; Major depressive disorder, recurrent episode, unspecified severity F33.9 and Attention-deficit hyperactivity disorder, predominantly hyperactive type F90.1 [place] [id number] [place] [address] 43643- 0860 08 Sep, 2016 Major depressive disorder, recurrent episode, unspecified severity F33.9 and Generalized anxiety disorder F41.1 [place] [id number] [place] [address] 38387- 9664 Sep, Psoriatic arthritis L40.50 [place] [id number] [place] [address] 26748- 6161 Sep, Diabetes E11.9 ; 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 ; Back pain M54.9 and Encounter for immunization Z23 [place] [id number] [place] [address] 07560- 0356 Aug, [place] [id number] [place] [address] 82079- 8673 Aug, [place] [id number] [place] [address] 07961- 3227 Jul, Major depressive disorder, recurrent episode, unspecified severity F33.9 ; Attention-deficit hyperactivity disorder, predominantly hyperactive type F90.1 and Generalized anxiety disorder F41.1 [place] [address] [place] [address] 94946- 7096 Jul, [place] [id number] [place] [address] 73381- 4084 Jul, Major depressive disorder, recurrent, in partial remission F33.41 and Generalized anxiety disorder F41.1 [facility] [address] [place] [address] 99739- 5090 Jul, [facility] [id number] [place] [address] 25003- 7604 Jul, [facility] [id number] [place] [address] 20340- 7181 Jul, [facility] [id number] [place] [address] 66320- 1877 Jul, [facility] [id number] [place] [address] 55277- 9627 Jul, Diabetes E11.9 [facility] [id number] [place] [address] 95886- 5990 May, [facility] [id number] [place] [address] 89774- 0660 May, [facility] [address] [place] [address] 02107- 7603 May, [facility] [id number] [place] [address] 06658- 4931 May, Major depressive disorder, recurrent episode, unspecified severity F33.9 ; Generalized anxiety disorder F41.1 and Attention-deficit hyperactivity disorder, predominantly hyperactive type F90.1 [facility] [address] [place] [address] 85098- 9655 May, [facility] [address] [place] [address] 95422- 2668 May, Diabetes E11.9 [facility] [id number] [place] [address] 06090- 9515 May, [facility] [address], [place] [address]- 8931 May, Via [facility] [address] [place] [id number] May, Diabetes E11.9 ; Generalized anxiety disorder F41.1 and Nausea R11.0 [facility] [address] [place] [address] 61541- 8843 May, Psoriatic arthritis L40.50 and Candidiasis of female genitalia B37.3 [facility] [id number] [place] [address] 12320- 0882 May, [facility] [id number] [place] [address] 95408- 6481 Apr, [facility] [id number] [place] [address] 83023- 2956 Apr, [facility] [id number] [place] [address] 58133- 8213 Apr, [facility] [id number] [place] [address] 64066- 6590 Apr, Generalized anxiety disorder F41.1 ; Major depressive disorder, recurrent episode, unspecified severity F33.9 and Attention-deficit hyperactivity disorder, predominantly hyperactive type F90.1 [facility] [address] [place] [address] 83709- 0039 Apr, [facility] [id number] [place] [address] 05260- 7246 Apr, [facility] [address], [place] [address]- 7541 Apr, [facility] [id number] [address]- 7525 Apr, [facility] [address], [place] [address]- 8288 Apr, [facility] [id number] [place] [address] 32149- 0842 Mar, Attention-deficit hyperactivity disorder, predominantly hyperactive type F90.1 [facility] [address] [place] [address] 46068- 6206 Mar, [facility] [id number] [place] [address] 09628- 4152 Mar, [facility] [id number] [place] [address] 54772- 8317 Mar, Major depressive disorder, recurrent episode, unspecified severity F33.9 and Generalized anxiety disorder F41.1 [place] [address] 63904- 6309 February, Diabetes E11.9 [facility] [id number] [place] [address] 73365 -9352 February, OME (otitis media with effusion), bilateral H65.93 [place] [place] [id number] [place] [address] 66514- 4593 February, Back pain M54.9 [place] [address] 15050- 3294 February, [facility] [id number] [place] [address] 35493- 6941 February, Nausea R11.0 [place] [address] 23845- 4004 February, [place] [id number] [place] [address] 40624- 8113 February, Pre-op evaluation Z01.818 ; Type 2 diabetes mellitus with hyperglycemia E11.65 and USP 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 [facility] [id number] [place] [address] 95166- 0758 February, [facility] [id number] [place] [address] 04115 -6127 February, Right otitis externa H60.91 [facility] [id number] [place] [address] 60702- 3891 Jan, [facility] [address] 97781- 7975 Jan, Psoriatic arthritis L40.50 and Arthralgia, unspecified joint M25.50 [facility] [id number] [place] [address] 01082- 6685 Jan, Major depressive disorder, recurrent episode, unspecified severity F33.9 ; Generalized anxiety disorder F41.1 and Attention-deficit hyperactivity disorder, unspecified type F90.9 [facility] [id number] [place] [address] 06295- 8933 Jan, [facility] [id number] [place] [address] 30727- 5191 Jan, [facility] [id number] [place] [address] 35776- 0724 Jan, Major depressive disorder, recurrent episode, unspecified severity F33.9 and Generalized anxiety disorder F41.1 [facility] [id number] [place] [address] 70064- 7195 Jan, [facility] [id number] [place] [address] 43979- 3642 Dec, 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 I10 and Arthritis M19.90 [facility] [id number] [place] [address] 37970- 6821 Dec, [facility] [id number] [place] [address] 11973- 9130 Dec, [facility] [id number] [place] [address] 12481- 9659 Dec, [facility] [id number] [place] [address] 87730- 1096 Dec, [facility] [id number] [place] [address] 51858- 3430 Dec, [facility] [address] [address]- 5087 Dec, Major depressive disorder, recurrent episode, unspecified severity F33.9 and Generalized anxiety disorder F41.1 [facility] [id number] [place] [address] 47852- 3156 29 Dec, 2015 Diabetes E11.9 ; Back pain M54.9 ; Thrush B37.0 and 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 I10 [facility] [id number] [place] [address] 26884- 9677 18 Dec, 2015 Major depressive disorder, recurrent episode, unspecified severity F33.9 and Generalized anxiety disorder F41.1 [facility] [id number] [place] [address] 89185- 9842 04 Dec, 2015 Major depressive disorder, recurrent episode, in partial or unspecified remission 296.35 ; Major depressive disorder, recurrent episode, unspecified severity F33.9 and Generalized anxiety disorder 300.02 [facility] [id number] [place] [address] 06694- 5906 Dec, [facility] [address] 62144- 3668 Oct, [facility] [id number] [place] [address] 26342- 9686 Oct, [facility] [id number] [place] [address] 22496- 3212 Oct, [facility] [id number] [place] [address] 57546- 6088 Oct, [facility] [id number] [place] [address] 49931- 4887 Oct, Major depressive disorder, recurrent, moderate F33.1 and Attention-deficit hyperactivity disorder, unspecified type F90.9 [facility] [id number] [place] [address] 61902- 8595 Oct, termite treater helper (current) use of opiate analgesic Z79.891 [facility] [id number] [place] [address] 57919- 8268 Oct, [facility] [id number] [place] [address] 83409- 2085 Oct, [facility] [id number] [place] [address] 60389 -0054 Sep, URI (upper respiratory infection) J06.9 ; Psoriasis L40.9 ; Cough R05 and Tobacco abuse Z72.0 [facility] [id number] [place] [address] 38263- 9157 Sep, Major depressive disorder, recurrent episode, in partial or unspecified remission 296.35 ; Generalized anxiety disorder 300.02 and ADHD, 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 [facility] [id number] [place] [address] 15345 -5922 Sep, Acute sinusitis, unspecified J01.90 [facility] [id number] [place] [address] 00717- 1884 Sep, [facility] [address] 30658- 5326 Sep, Major depressive disorder, recurrent, moderate F33.1 ; Generalized anxiety disorder F41.1 and Attention-deficit hyperactivity disorder , combined type F90.2 [facility] [id number] [place] [address] 70420- 3470 Sep, [facility] [id number] [place] [address] 62347- 6699 Aug, [facility] [id number] [place] [address] 90461- 5994 Aug, [facility] [id number] [place] [address] 55261- 8532 Aug, Diabetes E11.9 and Anxiety F41.9 [facility] [address] 82056- 5664 Aug, Major depressive disorder, recurrent episode, unspecified severity F33.9 and Generalized anxiety disorder F41.1 [facility] [id number] [place] [address] 94466- 9776 Aug, [facility] [address], [place] [address]- 4912 Jul, [facility] [id number] [place] [address] 72868- 1930 Jul, [facility] [address], [place] [address]- 5884 Jul, [facility] [id number] [place] [address] 22878- 9989 Jul, [facility] [id number] [place] [address] 00049- 7357 Jul, Major depressive disorder, recurrent episode, in partial or unspecified remission 296.35 ; Generalized anxiety disorder 300.02 and ADHD, 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 [facility] [address] [place] [address] 79457- 0618 Jul, Major depressive disorder, recurrent episode, in partial or unspecified remission 296.35 ; Generalized anxiety disorder 300.02 and ADHD, 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 [facility] [id number] [place] [address] 00991- 4127 Jul, [facility] [id number] [place] [address] 41900- 4859 May, [facility] [address], [place] [address]- 6182 May, [facility] [id number] [place] [address] 30954- 1232 May, DM w/o complication type II 250.00 ; Dyspepsia 536.8 and PAD (peripheral artery disease) 443.9 [facility] [id number] [place] [address] 44102- 7916 May, Major depressive disorder, recurrent episode, moderate 296.32 and Generalized anxiety disorder 300.02 [facility] [address] [address]- 2571 May, [facility] [address], [place] [address]- 8606 May, Major depressive disorder, recurrent episode, moderate 296.32 and Generalized anxiety disorder 300.02 [facility] [id number] [place] [address] 14672- 4347 May, [facility] [id number] [place] [address] 11616- 2821 Apr, [facility] [id number] [place] [address] 52590- 9238 Apr, Major depressive disorder, recurrent episode, moderate 296.32 and Generalized anxiety disorder 300.02 [facility] [id number] [place] [address] 17584- 3985 Apr, [facility] [id number] [place] [address] 26051- 5557 Apr, [facility] [id number] [place] [address] 36465- 2092 Apr, Generalized anxiety disorder 300.02 ; ADHD, 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 and Depression, major, recurrent, moderate 296.32 [facility] [id number] [place] [address] 25070- 2280 Apr, Major depressive disorder, recurrent episode, moderate 296.32 and Generalized anxiety disorder 300.02 [facility] [address], [place] [address]- 0925 Apr, [facility] [id number] [place] [address] 66623- 9968 Apr, [facility] [id number] [place] [address] 64967- 4300 Mar, [facility] [id number] [place] [address] [id number]- 8448 Mar, Major depressive disorder, recurrent episode, moderate 296.32 and Generalized anxiety disorder 300.02 [facility] [id number] [place] [address] 67483- 5149 Mar, ADHD, 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 ; Major depressive disorder, recurrent episode, severe, without mention of psychotic behavior 296.33 and Generalized anxiety disorder 300.02 [facility] [id number] [place] [address] 38089- 7244 February, Major depressive disorder, recurrent episode, moderate 296.32 and Generalized anxiety disorder 300.02 [facility] [id number] [place] [address] 81496- 4704 February, [facility] [id number] [place] [address] 90623- 5664 February, [facility] [id number] [place] [address] 85949- 4243 February, [facility] [id number] [place] [address] 05358- 4424 February, [facility] [id number] [place] [address] 64817- 5183 February, DM w/o complication type II 250.00 ; Impacted cerumen 380.4 ; Essential hypertension, benign 401.1 and Irritable colon 564.1 [facility] [id number] [place] [address] 89584- 4293 February, [facility] [id number] [place] [address] 84823- 8500 February, [facility] [id number] [place] [address] 67485- 2236 Jan, [facility] [id number] [place] [address] 34308- 7213 Dec, [facility] [id number] [place] [address] 57966- 1493 Dec, [facility] [id number] [place] [address] 43287- 8442 Dec, [facility] [id number] [place] [address] 31072- 5215 20 Dec, 2014 [facility] [place] [facility] [address] [id number] [place] [address]- 2398 16 Dec, 2014 [facility] [place] [facility] [address] [id number] [place] [address]- 0286 16 Dec, 2014 [facility] [place] [facility] [address] [facility] [id number] [place] [address]- 1051 10 Dec, 2014 [facility] [place] [facility] [address] [facility] [id number] [place] [address]- 0689 10 Dec, 2014 [facility] [place] [facility] [address] [id number] [place] [address]- 2859 02 Dec, 2014 [facility] [place] [facility] [address] [facility] [id number] [place] [address]- 2907 Dec, [facility] [place] [facility] [id number] [place] [address]- 0889 19 Dec, 2014 [facility] [place] [facility] [address] [facility] [id number] [place] [address]- 2934 Dec, 2014 [facility] [place] [facility] [address] [facility] [id number] [place] [address]- 1898 Dec, 2014 [facility] [place] [facility] [address] [facility] [id number] [place] [address]- 3452 Dec, 2014 [facility] [place] [facility] [address] [facility] [id number] [place] [address]- 0455 Dec, 2014 [facility] [place] [facility] [address] [facility] [id number] [place] [address]- 2037 Dec, 2014 [facility] [place] [facility] [address] [facility] [id number] [place] [address]- 0399 Oct, [facility] [place] [facility] [address] [facility] [id number] [place] [address]- 4076 Oct, [facility] [place] [facility] [address] [facility] [id number] [address]- 6758 Oct, [facility] [place] [facility] [address] [id number] [place] [address]- 4266 Oct, [facility] [place] [facility] [address] [id number] [place] [address]- 1286 Oct, [facility] [place] [facility] [address] [id number] [place] [address]- 8926 Oct, [facility] [place] [facility] [address] [id number] [place] [address]- 7634 Oct, [facility] [address] [id number] [place] [address]- 9604 Oct, [facility] [place] [facility] [address] [id number] [place] [address]- 5498 Oct, [facility] [address] [id number] [place] [address]- 2425 Oct, [facility] [address] [id number] [place] [address]- 1547 Oct, [facility] [place] [facility] [address] [id number] [place] [address]- 1951 Sep, [facility] [place] [facility] [address] [id number] [place] [address]- 9516 Sep, [facility] [place] [facility] [address] [id number] [place] [address]- 5118 Sep, [facility] [place] [facility] [address] [id number] [place] [address]- 8329 Sep, [facility] [place] [facility] [address] [id number] [place] [address]- 2428 Sep, [facility] [place] [facility] [address] [id number] [place] [address]- 7546 Sep, [facility] [place] [facility] [address] [id number] [place] [address]- 2005 Sep, [facility] [place] [facility] [address] [id number], [place] [address]- 1357 Sep, [facility] [place] [facility] [address] [id number] [place] [address]- 5060 Aug, [facility] [place] [facility] [address] [id number] [place] [address]- 3959 Aug, [facility] [place] [facility] [address] [id number] [place] [address]- 9881 Aug, [facility] [place] [facility] [address] [id number] [place] [address]- 9604 Aug, [facility] [place] [facility] [address] [id number] [place] [address]- 2478 Aug, [facility] [place] [facility] [address] [id number] [place] [address]- 2580 Aug, [facility] [place] [facility] [address] [id number] [place] [address]- 5574 Aug, [facility] [place] [facility] [address] [id number] [place] [address]- 6373 Aug, [facility] [place] [facility] [address] [id number] [place] [address]- 7641 Aug, [facility] [place] [facility] [address] [id number] [place] [address]- 4697 Aug, [facility] [place] [facility] [address] [id number], [place] [address]- 2735 Aug, [facility] [place] [facility] [address] [id number], [place] [address]- 8683 Aug, [facility] [place] [facility] [address] [id number], [place] [address]- 4022 Aug, [facility] [place] [facility] [address] [id number], [place] [address]- 8346 Aug, [facility] [place] [facility] [address] [id number] [place] [address]- 7441 Jul, [facility] [place] [facility] [address] [id number] [place] [address]- 3598 Jul, [facility] [place] [facility] [address] [id number] [place] [address]- 2484 Jul, [facility] [place] [facility] [address] [id number] [place] [address]- 3186 Jul, [facility] [place] [facility] [address] [id number] [place] [address]- 1736 Jul, [facility] [place] [facility] [address] [id number] [place] [address]- 4947 Jul, [facility] [place] [facility] [address] [id number] [place] [address]- 3045 Jul, [facility] [place] [facility] [address] [id number] [place] [address]- 1740 Jul, [facility] [place] [facility] [address] [id number] [place] [address]- 1613 Jul, 2013 [facility] [place] [facility] [address] [id number] [place] [address]- 5087 Jul, [facility] [place] [facility] [address] [id number] [place] [address]- 0742 Jul, [facility] [place] [facility] [address] [id number] [place] [address]- 0376 Jul, [facility] [place] [facility] [address] [id number] [place] [address]- 2548 Jul, [facility] [place] [facility] [address] [id number] [place] [address]- 2545 Jul, [facility] [place] [facility] [address] [id number] [place] [address]- 8295 May, [facility] [place] [facility] [address] [id number] [place] [address]- 3742 May, [facility] [place] [facility] [address] [id number] [place] [address]- 1659 May, [facility] [place] [facility] [address] [id number] [place] [address]- 0548 May, [facility] [place] [facility] [address] [id number] [place] [address]- 6994 May, [facility] [place] [facility] [address] [id number] [place] [address]- 0288 May, [facility] [place] [facility] [address] [id number] [place] [address]- 0604 May, [facility] [place] [facility] [address] [id number] [place] [address]- 3562 May, [facility] [place] [facility] [address] [id number] [place] [address]- 4567 May, [facility] [place] [facility] [address] [id number] [place] [address]- 4250 May, [facility] [place] [facility] [address] [id number] [place] [address]- 4766 May, [facility] [place] [facility] [address] [id number] [place] [address]- 1440 May, [facility] [place] [facility] [address] [id number] [place] [address]- 4755 Apr, [facility] [place] [facility] [address] [id number] [place] [address]- 9420 Apr, [facility] [place] [facility] [address] [id number] [place] [address]- 6229 Apr, [facility] [place] [facility] [address] [id number] [place] [address]- 3160 Apr, [facility] [place] [facility] [address] [id number] [place] [address]- 1041 Apr, [facility] [place] [facility] [address] [id number] [place] [address]- 1485 Apr, [facility] [place] [facility] [address] [id number] [place] [address]- 2569 Mar, [facility] [place] [facility] [address] [id number] [place] [address]- 3135 Mar, [facility] [place] [facility] [address] [id number] [place] [address]- 0178 Mar, [facility] [place] [facility] [address] [id number] [place] [address]- 4120 Mar, [facility] [place] [facility] [address] [id number] [place] [address]- 1096 Mar, [facility] [place] [facility] [address] [id number] [place] [address]- 5903 Mar, [facility] [place] [facility] [address] [id number] [place] [address]- 9610 Mar, [facility] [place] [facility] [address] [id number] [place] [address]- 1886 Mar, [facility] [place] [facility] [address] [id number] [place] [address]- 0150 Mar, [facility] [place] [facility] [address] [id number] [place] [address]- 8500 Mar, [facility] [place] [facility] [address] [id number] [place] [address]- 3441 Mar, [facility] [place] [facility] [address] [id number] [place] [address] Mar, [facility] [place] [facility] [address] [id number] [place] [address] Mar, [facility] [place] [facility] [address] [id number] [place] [address] February, [facility] [place] [facility] [address] [id number] [place] [address] February, [facility] [place] [facility] [address] [id number] [place] [address] February, [facility] [place] [facility] [address] [id number] [place] [address] February, [facility] [place] [facility] [address] [id number] [place] [address] February, [facility] [place] [facility] [address] [id number] [place] [address] February, [facility] [place] [facility] [address] [id number] [place] [address] February, [facility] [place] [facility] [address] [id number] [place] [address] February, [facility] [place] [facility] [address] [id number] [place] [address] February, [facility] [place] [facility] [address] [id number] [place] [address] February, [facility] [place] [facility] [address] [id number] [place] [address] February, [facility] [place] [facility] [address] [id number] [place] [address] February, [facility] [place] [facility] [address] [id number] [place] [address] February, [facility] [place] [facility] [address] [id number] [place] [address] February, [facility] [place] [facility] [address] [id number] [place] [address] Jan, [facility] [place] [facility] [address] [id number] [place] [address] Jan, [facility] [place] [facility] [address] [id number] [place] [address] Jan, [facility] [place] [facility] [address] [id number] [place] [address] Jan, [facility] [place] [facility] [address] [id number] [place] [address] Jan, [facility] [place] [facility] [address] [id number] [place] [address] Jan, [facility] [place] [facility] [address] [id number] [place] [address]- [address] Jan, [facility] [place] [facility] [address] [id number] [place] [address]- [address] Jan, [facility] [place] [facility] [address] [id number] [place] [address]- [address] Jan, [facility] [place] [facility] [address] [id number] [place] [address]- [address] Dec, [facility] [place] [facility] [address] [id number] [place] [address]- [address] Dec, [facility] [place] [facility] [address] [id number] [place] [address]- [address] Dec, [facility] [place] [facility] [address] [id number] [place] [address]- [address] Dec, [facility] [place] [facility] [address] [id number] [place] [address] Dec, [facility] [place] [facility] [address] [id number] [place] [address]- [address] Dec, [facility] [place] [facility] [address] [id number] [place] [address]- [address] Dec, [facility] [place] [facility] [address] [id number] [place] [address] Dec, [facility] [place] [facility] [address] [id number] [place] [address] Dec, [facility] [place] [facility] [address] [id number] [place] [address]- [address] Dec, [facility] [place] [facility] [address] [id number] [place] [address]- [address] Dec, [facility] [place] [facility] [address] [id number] [place] [address] 13 Dec, 2013 [facility] [place] [facility] [address] [id number] [place] [address]- [address] Dec, [facility] [place] [facility] [address] [id number] [place] [address]- [address] 10 Dec, 2013 [facility] [place] [facility] [address] [id number] [place] [address]- [address] Dec, [facility] [facility] [address] [id number] [place] [address] Dec, [facility] [place] [facility] [address] [id number] [place] [address] 1116 Dec, [facility] [place] [facility] [address] [id number] [place] [address]127 Oct, [facility] [place] [facility] [address] [id number] [place] [address] 4082 Oct, [facility] [place] [facility] [address] [id number] [place] [address] 0460 Oct, [facility] [place] [facility] [address] [id number] [place] [address] 1279 Oct, [facility] [address] [id number] [place] [address] 3312 Oct, [facility] [place] [facility] [address] [id number] [place] [address] 6726 Oct, [facility] [place] [facility] [address] [id number] [place] [address] 254 Oct, [facility] [place] [facility] [address] [id number] [place] [address] 5603 Oct, [facility] [facility] [address] [id number] [place] [address] 2546 Oct, [facility] [address] [id number] [place] [address] 9[address] 16 Oct, 2013 [facility] [address] [id number] [place] [address]- 0083 Oct, [facility] [address] [id number] [place] [address]- 4679 Oct, [facility] [address] [id number] [place] [address]- 1193 Oct, [facility] [address] [id number] [place] [address]- 5442 Oct, [facility] [address] [id number] [place] [address]- 2967 31 Sep, 2013 [facility] [address] [id number] [place] [address]- 9554 31 Sep, 2013 [facility] [address] [id number] [place] [address]- 8551 30 Sep, 2013 [facility] [address] [id number] [place] [address]- 7273 30 Sep, 2013 [facility] [address] [id number] [place] [address]- 3404 Sep, [facility] [address] [id number] [place] [address]- 6982 Sep, [facility] [address] [id number], [place] [address] 4787 Sep, [facility] [address] [id number], [place] [address]- 1203 27 Sep, 2013 [facility] [address] [id number] [place] [address]- 1117 Sep, [facility] [address] [id number] [place] [address]- 5780 27 Sep, 2013 [facility] [address] [id number] [place] [address]- 9537 16 Sep, 2013 [facility] [address] [id number] [place] 16 Sep, 2013 [facility] [address] [id number] [place] [address]- 4943 13 Sep, 2013 [facility] [address] [id number] [place] [address] 13 Sep, 2013 [facility] [address] [id number] [place] [address]- 4126 10 Sep, 2013 [facility] [address] [id number] [place] [address]- 7313 10 Sep, 2013 [facility] [address] [id number] [place] [address] 02 Sep, 2013 [facility] [address] [id number] [place] [address]- 6456 02 Sep, 2013 [facility] [address] [facility] [id number] [place] [address]- 1428 15 Aug, 2013 [facility] [address] [id number] [place] [address]- 1648 15 Aug, 2013 [facility] [address] [id number] [place] [address]- 8472 16 Jul, 2013 [facility] [address] [facility] [id number] [place] [address]- 6180 16 Jul, 2013 [facility] [address] [id number] [place] [address]- 2086 14 Jul, 2013 [facility] [address] [id number], [place] [address]- 1624 14 Jul, 2013 [facility] [address] [id number] [place] [address]- 5226 08 Jul, 2013 [facility] [address] [facility] [id number] [place] [address]- 8860 20 Jul, 2013 [facility] [address] [id number] [address] 19 Sep2012 [facility] [address] [id number] [place] [address]- 3600 13 Jul, 2012 [facility] [address] [id number] [place] [address]- 4384 08 Jul, 2012 [facility] [address] [id number] [place] [address]- 2537 06 Jul, 2012 [facility] [address] [id number] [place] [address]- 4081 Jul, 2012 [facility] [address] [id number] [place] [address]- 9511 06 Jul, 2012 [facility] [address] [id number] [place] [address]- 3572 Jul, 2012 [facility] [address] [id number] [place] [address]- 4059 May, [facility] [address] [id number] [place] [address]- 0397 May, [facility] [address] [id number] [place] [address]- 0035 May, [facility] [address] [id number] [place] [address]- 6895 May, [facility] [address] [id number] [place] [address]- 0753 Apr, [facility] [address] [id number] [place] [address]- 3212 Apr, [facility] [address] [id number] [place] [address]- 3257 Apr, [facility] [address] [id number] [place] [address]- 1997 Mar, [facility] [address] [id number] [place] [address]- 4855 Mar, [facility] [address] [id number] [place] [address]- 2546 Mar, [facility] [address] [id number] [place] [address]- 4227 Mar, [facility] [address] [id number] [place] [address]- 9919 February, [facility] [address] [id number] [place] [address]- 0446 February, [facility] [address] [id number] [place] [address]- 7748 Jan, [facility] [address] [id number] [place] [address]- 9259 Dec, [facility] [address] [facility] [id number] [place] [address]- 8682 Dec, [facility] [address] [facility] [id number] [place] [address]- 6576 Dec, [facility] [address] [id number] [place] [address]- 0940 Dec, [facility] [address] [id number] [place] [address]- 1910 28 Dec, 2012 [facility] [address] [facility] [id number] [place] [address]- 1222 27 Dec, 2012 [facility] [address] [id number] [place] [address]- 2978 26 Dec, 2012 [facility] [address] [id number] [place] [address]- 7238 25 Dec, 2012 [facility] [address] [id number] [place]182 22 Dec, 2012 [facility] [address] [id number] [place]046 15 Dec, 2012 [facility] [address] [facility] [id number] [place]29 14 Dec, 2012 [facility] [address] [id number] [place] [address]- 5791 Oct, [facility] [address] [id number] [place] [address]- 8824 Oct, [facility] [address] [id number] [place] [address]- 8812 Oct, [facility] [address] [id number] [place] [address]- 5012 Oct, [facility] [address] [id number] [place] [address]- 7108 Sep, [facility] [address] [id number] [place] [address]- 5068 Sep, [facility] [address] [id number] [place] [address]- 9375 Sep, [facility] [address] [id number] [place] [address]- 9287 Sep, [facility] [address] [id number] [place] [address]- 6213 Sep, [facility] [address] [id number] [place] [address]- 4645 Sep, [facility] [address] [id number] [place] [address]- 9843 Aug, [facility] [address] [id number] [place] [address]- 1851 Aug, [facility] [address] [id number] [place] [address]- 3460 Aug, [facility] [address] [id number] [place] [address]- 8153 Aug, [facility] [address] [id number] [place] [address]- 9610 Aug, [facility] [address] [id number] [place] [address]- 7986 Aug, [facility] [address] [id number] [place] [address]- 1557 Jul, [facility] [address] [id number] [place] [address]- 5296 17 Jul, 2012 [facility] [address] [id number] [place] [address]- 5446 16 Jul, 2012 [facility] [address] [id number] [place] [address]- 5631 16 Jul, 2012 [facility] [address] [id number] [place] [address]- 1583 Jul, [facility] [address] [id number] [place] [address]- 2220 Jul, [facility] [address] [id number] [place] [address]- 5294 27 Jul, 2012 [facility] [address] [id number] [place] [address]- 5967 21 Jul, 2012 [facility] [address] [id number] [place] [address]- 5592 20 Jul, 2012 [facility] [address] [id number] [place] [address]- 6539 11 Jul, 2012 [facility] [address] [id number] [place] [address]- 9419 Jul, [facility] [address] [id number] [place] [address]- 5666 29 May, 2012 [facility] [address] [id number] [place] [address]- 3602 May, [facility] [address] [facility] [id number] [place] [address]- 4467 May, [facility] [address] [id number] [place] [address]- 2029 May, [facility] [address] [id number] [place] [address]- 2715 30 Apr, 2012 [facility] [address] [id number] [place] [address]- 2516 Apr, [facility] [address] [id number] [place] [address]- 8196 Apr, [facility] [address] [id number] [place] [address]- 0986 Apr, [facility] [address] [id number] [place] [address]- 2543 Apr, [facility] [address] [id number] [place] [address]- 7263 Apr, [facility] [address] [id number] [place] [address]- 3929 Apr, [facility] [address] [id number] [place] [address]- 3874 Apr, [facility] [address] [id number] [place] [address]- 5334 Mar, [facility] [address] [id number] [place] [address]- 2518 Mar, [facility] [address] [id number] [place] [address]- 0297 Mar, [facility] [address] [id number] [place] [address]- 2541 15 Mar, 2012 [facility] [address] [id number] [place] [address]- 2540 14 Mar, 2012 [facility] [address] [id number] [place] [address]- 9367 12 Mar, 2012 [facility] [address] [id number] [place] [address]- 0347 12 Mar, 2012 [facility] [address] [id number] [place] [address]- 3036 11 Mar, 2012 [facility] [address] [id number] [place] [address]- 2309 08 Mar, 2012 [facility] [address] [id number] [place] [address]- 8566 February, [facility] [address] [id number] [place] [address]- 8656 February, [facility] [address] [id number] [place] [address]- 1776 February, [facility] [address] [id number] [place] [address]- 5605 February, [facility] [address] [id number] [place] [address]- 3826 Jan, [facility] [address] [id number] [place] [address]- 7166 Jan, [facility] [address] [id number] [place] [address]- 5675 28 Dec, 2011 [facility] [address] [id number] [place] [address]- 9003 15 Dec, 2011 [facility] [address] [id number] [place] [address]- 8926 14 Dec, 2011 [facility] [address] [id number] [place] [address]- 1826 Dec, [facility] [address] [id number] [place] [address]- 0060 Dec, [facility] [address] [id number] [place] [address]- 4630 Dec, [facility] [facility] [address] [id number] [place] [address]- 8556 Dec, [facility] [facility] [address] [id number] [place] [address]- 2206 Dec, [facility] [address] [id number] [place] [address]- 5435 07 Dec, 2011 [facility] [address] [id number] [place] [address]- 3056 Dec, [facility] [address] [id number] [place] 2286 07 Dec, 2011 [facility] [address] [id number] [place] [address]- 1706 Dec, [facility] [address] [id number] [place] [address]- 6669 Oct, [facility] [address] [id number] [place] [address]- 1296 Oct, [facility] [address] [id number] [place] [address]- 4311 Oct, [facility] [address] [id number] [place] [address]- 0590 Oct, [facility] [address] [id number] [place] [address]- 1518 Oct, [facility] [address] [facility] [id number] [place] [address]- 0932 Oct, [facility] [address] [facility] [id number] [place] [address]- 5517 16 Oct, 2011 [facility] [address] [id number] [place] [address]- 1509 Oct, [facility] [address] [id number] [place] [address]- 4255 Sep, [facility] [address] [id number] [place] [address]- 2700 Sep, [facility] [address] [id number] [place] [address]- 8336 Sep, [facility] [address] [id number] [place] [address]- 3195 Aug, [facility] [address] [id number] [address]- 0970 Aug, [facility] [id number] [address] 9017 Aug, [facility] [id number], [place] [address]- 9899 Aug, [facility] [id number] [place] [address]- 5820 Aug, [facility] [id number], [place] [address]- 3297 Jul, [facility] [id number] [place] [address]- 3793 Jul, [facility] [id number] [place] [address] 49402- 8161 May, [facility] [id number] [place] [address] 76236- 5672 Dec, [facility] [id number], [place] [address]- 2700 Oct, [facility] [id number], [place] [address]- 4836 Sep, [facility] [id number], [place] [address]- 8966 Sep, [facility] [id number], [place] [address]- 4549 Sep, IMMUNIZATIONS No Known Immunizations SOCIAL HISTORY Never Assessed REASON FOR VISIT Controlled Med Refill Request PLAN OF CARE VITAL SIGNS MEDICATIONS Unknown [...] veinous reflux Surgical History Left Knee SOA-Dr. Melendrez[place] 05/19/16 Surgical History Colonoscopy- Dr Castanon 01/26/2017 Hospitalization History surgeries Hospitalization History Left Knee SOA--Dr. Melendrez--[place] Hospitalization History Septic shock, UTI-[facility] 07/27/17 Hospitalization History Multiple falls, hyperglycemia, sepsis 07/2017 Hospitalization History Alcoholism, depression, DM, Falls-[facility] 08/23/17 Hospitalization History COPD exacerbation-[facility] 11/25/17 Hospitalization History COPD exacerbation-[facility] 11/28/17 Hospitalization History [facility]- AMS, Hyperglycemia 01/19/2018
--- NOTE | 2018-05-10 03:44 | ED General ---
General Stated Complaint: UTI,DIZZY,HIGH BLOOD PRESSURE Source of Information: Patient Exam Limitations: No Limitations History of Present Illness Date Seen by Provider: May 10, 2018 Time Seen by Provider: 03:25 Initial Comments Here with report of feeling off with frequency of urination, high blood pressure and feeling dizzy. Has history of sepsis related to this previously. Also has blood sugar problems. States the problem started earlier today and she had an episode of diarrhea as well as some nausea but no vomiting. No reported fevers or breathing problems. States feels very anxious. States she has not been eating or drinking well. Timing/Duration: 24 Hours Severity: Moderate Modifying Factors: improves with Rest Associated Systoms: No Chest Pain, No Cough, No Fever/Chills; Loss of Appetite , Nausea/Vomiting; No Shortness of Air; Weakness Allergies and Home Medications Allergies Coded Allergies: Sulfa (Sulfonamide Antibiotics) (Verified Allergy, Unknown, 08/26/14) morphine (Verified Adverse Reaction, Mild, NAUSEA, 05/19/16) Home Medications Acetaminophen 500 Mg Tablet, 1,000 MG PO Q6H PRN for PAIN-MILD/FEVER Prescribed by: REJI ROY on 08/19/17 1041 Albuterol Sulfate 1 Puff Puff, 2 PUFF IH Q4H PRN for SHORTNESS OF BREATH, ( Reported) 1 PUFF = 90 MCG Amitriptyline HCl 25 Mg Tablet, 25 MG PO DAILY, (Reported) LAST FILLED #30 18 Bupropion HCl 150 Mg Tab.er.24h, 450 MG PO DAILY, (Reported) LAST FILLED 90 TABLETS (30 DAYS) 11-23-17 TAKES 3 (150MG) TABLETS Chlorhexidine Gluconate 473 Ml Mouthwash, MM QID PRN for MOUTH SORES, (Reported) LAST FILLED 473ML 09-26-17 Dapagliflozin Propanediol 10 Mg Tablet, 10 MG PO DAILY, (Reported) LAST FILLED #90 17 Glucosamine HCl/Chondr Bentley A Na 1 Each Tablet, 1 TAB PO DAILY, (Reported) Insulin Aspart 300 Units/3 Ml Solution, 12 UNITS SQ TIDAC, (Reported) Insulin Degludec 100 Unit/1 Ml Insuln.pen, 60 UNITS SC HS, (Reported) Lactobacillus Acidophilus 1 Each Capsule, 1 CAP PO BID, (Reported) Losartan Potassium 50 Mg Tablet, 50 MG PO DAILY, (Reported) LAST FILLED #30 12-01-17 Multivitamin 1 Each Tablet, 1 TAB PO DAILY, (Reported) Pantoprazole Sodium 40 Mg Tablet.dr, 40 MG PO DAILY, (Reported) LAST FILLED #90 07-22-17 Vit C/E/Zn/Coppr/Lutein/Zeaxan 1 Each Capsule, 1 TAB PO BID, (Reported) Patient Home Medication List Home Medication List Reviewed: Yes Review of Systems Constitutional: see HPI; No chills, No fever EENTM: no symptoms reported Respiratory: no symptoms reported; No cough, No short of breath Cardiovascular: No chest pain, No edema Gastrointestinal: No abdominal pain; diarrhea, nausea; No vomiting Genitourinary: no symptoms reported Musculoskeletal: no symptoms reported Skin: no symptoms reported Psychiatric/Neurological: No Symptoms Reported Hematologic/Lymphatic: No Symptoms Reported All Other Systems Reviewed Negative Unless Noted: Yes Past Cjgudzc-Nrstij-Hnrlrh Hx Past Med/Social Hx: Reviewed Nursing Past Med/Soc Hx Patient Social History Alcohol Use: Denies Use Alcohol Beverage of Choice: Whiskey Recreational Drug Use: No Drug of Choice: PT DENIES Smoking Status: Current Everyday Smoker Type Used: Cigarettes Former Smoker, Quit: Feb 18, 2016 2nd Hand Smoke Exposure: Yes Recent Foreign Travel: No Contact w/Someone Who Travel: No Recent Hopitalizations: Yes Immunizations Up To Date Tetanus Booster (TDap): Less than 5yrs PED Vaccines UTD: No Date of Pneumonia Vaccine: Aug 31, 2017 Date of Influenza Vaccine: Jul 31, 2017 Seasonal Allergies Seasonal Allergies: Yes Past Medical History Surgeries: Yes Abdominal, Section, Hysterectomy, Orthopedic Respiratory: Yes Pneumonia, COPD Currently Using CPAP: No Currently Using BIPAP: No Cardiac: Yes 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 Neurological: No 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 Disorders: No Female 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 Disorders: Denies [employer] History: Hysterectomy, Menopausal Sexually Transmitted Disease: No HIV/AIDS: No Genitourinary: No Gastrointestinal: Yes Gastroesophageal Reflux, Hiatal Hernia Musculoskeletal: Yes Arthritis Endocrine: Yes Diabetes, Insulin dep HEENT: Yes Cataract Hearing Impairment: Denies Cancer: No Psychosocial: Yes ADD/ADHD, Eating Disorder, Anxiety, Depression Integumentary: Yes Psoriasis Blood Disorders: No Adverse Reaction/Blood Tranf: No Family Medical History Reviewed Nursing Family Hx AIDS Alcoholism Arthritis Asthma Cataracts Coronary thrombosis Diabetes mellitus Drug abuse Glaucoma Psychosocial problem Respiratory disorder No Family History of: [place]'s disease Alzheimer's disease Aphasia Cancer of mouth Cardiovascular disease Colon cancer Completed stroke Congenital disease Congenital heart disease Cystic fibrosis Deafness or hearing loss Dementia Dysphasia Fibrocystic disease of breast Gastroenteritis Headache disorder Hypercholesterolemia 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 Infertility Kidney disease Myocardial infarction Neoplasm Not obtainable due to adoption Osteoporosis Parkinson's disease Prostate cancer Seizure disorder Severe allergy Thyroid disease Tuberculosis Visual disorder No Pertinent Family Hx Physical Exam-Suspected Sepsis Physical Exam Vital Signs Vital Signs - First Documented 05/10/18 03:20 Temp 98.3 Pulse 110 Resp 20 B/P (MAP) 197/98 (131) Pulse Ox 94 O2 Delivery Room Air Capillary Refill : Height, Weight, BMI Height: 5', 9.00" Weight: 266lbs 5.0oz, 120.978861ty Method:Estimated ,39.4BMI General Appearance: Anxious, Chronically ill, Mild Distress HEENT: PERRL/EOMI, Pharynx Normal Neck: Non Tender, Supple Respiratory: Lungs Clear, Normal Breath Sounds Cardiovascular: Regular Rate, Rhythm, No Murmur Gastrointestinal: Non Tender, Soft Back: Normal Inspection, No CVA Tenderness, No Vertebral Tenderness Extremity: Normal Range of Motion, Non Tender Neurologic/Psychiatric: Alert, Oriented x3 Skin: normal color, warm/dry Focused Exam Lactate Level 05/10/18 03:35: Lactic Acid Level 1.29 Lactic Acid Level Laboratory Tests Test 05/10/18 03:35 Lactic Acid Level 1.29 MMOL/L (0.50-2.00) Progress/Results/Core Measures Suspected Sepsis SIRS Temperature: Pulse: Respiratory Rate: Laboratory Tests 05/10/18 03:35: White Blood Count 13.8H Blood Pressure / Mean: 05/10/18 03:35: Lactic Acid Level 1.29 Laboratory Tests 05/10/18 03:35: Creatinine 0.88, INR Comment 1.0, Platelet Count 179, Total Bilirubin 0.6 Results/Orders Lab Results Laboratory Tests Test 05/10/18 03:25 05/10/18 03:35 05/10/18 03:37 Range/Units Urine Color RED H Urine Clarity SLIGHTLY CLOUDY Urine pH 6 5-9 Urine Specific [place] 1.010 L 1.016-1.022 Urine Protein 4+ NEGATIVE Urine Glucose (UA) 4+ H NEGATIVE Urine Ketones 3+ H NEGATIVE Urine Nitrite NEGATIVE NEGATIVE Urine Bilirubin NEGATIVE NEGATIVE Urine Urobilinogen NORMAL NORMAL MG/DL Urine Leukocyte Esterase 2+ H NEGATIVE Urine RBC (Auto) 5+ H NEGATIVE Urine RBC >100 H /HPF Urine WBC 25-50 H /HPF Urine Crystals NONE /LPF Urine Bacteria FEW H /HPF Urine Casts NONE /LPF Urine Mucus NEGATIVE /LPF Urine Culture Indicated YES White Blood Count 13.8 H 4.3-11.0 10^3/uL Red Blood Count 5.91 H 4.35-5.85 10^6/uL Hemoglobin 16.9 H 11.5-16.0 G/DL Hematocrit 48 35-52 % Mean Corpuscular Volume 81 80-99 FL Mean Corpuscular Hemoglobin 29 25-34 PG Mean Corpuscular Hemoglobin Concent 35 32-36 G/DL Red Cell Distribution Width 14.0 10.0-14.5 % Platelet Count 179 130-400 10^3/uL Mean Platelet Volume 9.6 7.4-10.4 FL Neutrophils (%) (Auto) 77 H 42-75 % Lymphocytes (%) (Auto) 14 12-44 % Monocytes (%) (Auto) 7 0-12 % Eosinophils (%) (Auto) 2 0-10 % Basophils (%) (Auto) 0 0-10 % Neutrophils # (Auto) 10.6 H 1.8-7.8 X 10^3 Lymphocytes # (Auto) 1.9 1.0-4.0 X 10^3 Monocytes # (Auto) 0.9 0.0-1.0 X 10^3 Eosinophils # (Auto) 0.3 0.0-0.3 10^3/uL Basophils # (Auto) 0.0 0.0-0.1 10^3/uL Prothrombin Time 13.5 12.2-14.7 SEC INR Comment 1.0 0.8-1.4 Activated Partial Thromboplast Time 27 24-35 SEC Sodium Level 132 L 135-145 MMOL/L Potassium Level 3.8 3.6-5.0 MMOL/L Chloride Level 98 98-107 MMOL/L Carbon Dioxide Level 19 L 21-32 MMOL/L Anion Gap 15 H 5-14 MMOL/L Blood Urea Nitrogen 16 7-18 MG/DL Creatinine 0.88 0.60-1.30 MG/DL Estimat Glomerular Filtration Rate > 60 BUN/Creatinine Ratio 18 Glucose Level 299 H 70-105 MG/DL Lactic Acid Level 1.29 0.50-2.00 MMOL/L Calcium Level 9.8 8.5-10.1 MG/DL Total Bilirubin 0.6 0.1-1.0 MG/DL Aspartate Amino Transf (AST/SGOT) 13 5-34 U/L Alanine Aminotransferase (ALT/SGPT) 9 0-55 U/L Alkaline Phosphatase 137 H 40-136 U/L Total Protein 7.2 6.4-8.2 GM/DL Albumin 4.1 3.2-4.5 GM/DL Glucometer 291 H 70-110 MG/DL My Orders Orders - PAUL LIRA MD Cbc With Automated Diff (05/10/18 03:28) Comprehensive Metabolic Panel (05/10/18 03:28) Lactic Acid Analyzer (05/10/18:28) Blood Culture (05/10/18:28) Sputum Culture (05/10/18:28) Ua Culture If Indicated (05/10/18:28) Protime With Inr (05/10/18:28) Partial Thromboplastin Time (05/10/18:28) Chest 1 View, Ap/Pa Only (05/10/18 03:28) O2 (05/10/18 03:28) Saline Lock/Iv-Start (05/10/18 03:28) Vital Signs Adult Sepsis Patie Q15M (05/10/18 03:28) Remove Rings In Anticipation O (05/10/18 03:28) Saline Lock/Iv-Start (05/10/18 03:28) Ns Iv 1000 Ml (Sodium Chloride 0.9%) (05/10/18 03:28) Urine Culture (05/10/18 03:25) Ceftriaxone Injection (Rocephin Injectio (05/10/18 05:00) Ketorolac Injection (Toradol Injection) (05/10/18 04:51) Medications Given in ED Current Medications Medications Dose Ordered Sig/Minal Route Start Time Stop Time Status Last Admin Dose Admin Ceftriaxone Sodium 1000 mg/ Sodium Chloride 50 ml @ 100 mls/hr ONCE ONCE IV 05/10/18 05:00 05/10/18 05:29 DC 05/10/18 04:59 100 MLS/HR Sodium Chloride 1,000 ml @ 0 mls/hr Q0M ONCE IV 05/10/18 03:28 05/10/18 03:31 DC 05/10/18 03:58 999 MLS/HR Vital Signs/I&O 05/10/18 05/10/18 03:20 04:59 Temp 98.3 98.3 Pulse 110 Resp 20 B/P (MAP) 197/98 (131) Pulse Ox 94 O2 Delivery Room Air Capillary Refill : Progress Note : Progress Note Seen and evaluated. IV, labs, UA, blood cultures and lactic acid ordered. Normal saline 1 L bolus ordered. Chest x-ray ordered. Monitor patient. 0500: Labs reviewed. Does have urinary tract infection but is overall doing better. Rocephin 1 g IV has been ordered. Lactic acid is not elevated and she has no indication of severe sepsis or septic shock. At this point, outpatient treatment seems reasonable and the patient thinks that she is doing better now. She can be at home. We did give Toradol 15 mg IV for the bladder pain and that seems to have helped as well. 0538: Patient walked to the bathroom without assistance and has steady gait. Reviewed previous labs for her typical bugs and she has reviewed this is resistant but sensitive to Levaquin. We order outpatient prescription for that. Discharged home with return precautions. Patient and family verbalize understanding instructions and agreement with plan. Departure Impression Primary Impression: Urinary tract infection Qualified Codes: N30.01 - Acute cystitis with hematuria Disposition: HOME, SELF-CARE Condition: Stable Departure-Patient Inst. Decision time for Depature: 05:40 Referrals: REJI ROY MD (PCP/Family) Primary Care Physician Patient Instructions: Urinary Tract Infection, Adult (DC) Add. Discharge Instructions: Drink plenty of fluids. You may take ibuprofen 400 mg every 8 hours as needed for pain. You may take Tylenol/acetaminophen 1000 mg every 8 hours as needed for pain. Follow-up with your DrAshish in a few days for recheck. Return for worsening, fever, vomiting, weakness, breathing problems or other concerns as needed. Scripts Levofloxacin (Levofloxacin) 500 Mg Tablet 500 MG PO DAILY, #7 TAB 0 Refills Prov: PAUL LIRA MD 05/10/18 Copy Copies To 1: REJI ROY MD, TIMOTHY D MD May 10, 2018 03:44
--- OUTSIDE RECORDS SUMMARY | 2018-05-10 03:44 | XMS REPORT ---
Author Author REJI ROY [facility] Address [address] [place] [address] Care Team Providers Care Manufacturing Quality Inspector Name Role Phone REJI ROY Unavailable PROBLEMS Type Condition ICD9-CM Code [id number] Code Onset Dates Condition Status SNOMED Code Problem Generalized anxiety disorder F41.1 Active 68166323 Problem Diabetes E11.9 Active 27160883 Problem Psoriasis L40.9 Active 1539962 Problem Tobacco abuse Z72.0 Active 32305026 Problem 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 I10 Active 45043174 Problem Back pain M54.9 Active 002306420 Problem Arthritis M19.90 Active 3799169 Problem terminal clerk 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 Active 279324868 Problem Psoriatic arthritis L40.50 Active 648241177 Problem Psychophysiological insomnia F51.04 Active 37676103 Problem Other specified 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 Active 801072672 Problem Obesity (BMI 30-39.9) E66.9 Active 331310417 Problem Major depressive disorder, recurrent, moderate F33.1 Active 99332149 Problem Essential hypertension I10 Active 28586189 Problem Type 2 diabetes mellitus with hyperglycemia E11.65 Active 684655322028036 Problem Alcoholism F10.20 Active 0910903 Problem Frequent falls R29.6 Active 045774199 Problem Benzodiazepine abuse F13.10 Active 389702775 Problem PTSD (post-traumatic stress disorder) F43.10 Active 75732001 Problem Eating disorder F50.9 Active 93180167 Problem Attention-deficit hyperactivity disorder, combined type F90.2 Active 23707886 Problem COPD exacerbation J44.1 Active 162811792 Problem Anxiety F41.9 Active 89988178 Problem Decubitus ulcer of left buttock, stage 2 L89.322 Active 145682761 Problem BMI 40.0-44.9, adult Z68.41 Active 669068449 Problem Alcohol abuse F10.10 Active 62137403 Problem Pneumonia due to methicillin resistant Staphylococcus aureus, unspecified laterality, unspecified part of lung J15.212 Active 533077036153435 Problem Type 2 diabetes mellitus with unspecified complications E11.8 Active 53459916 Problem Attention-deficit hyperactivity disorder, predominantly hyperactive type F90.1 Active 335359843 Problem Type 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 Active 71120939 Problem Ulcer of right foot, unspecified ulcer stage L97.519 Active 84549330 Problem Attention deficit R41.840 Active 96945464 Problem Mental disorder, not otherwise specified F99 Active 39235041 Problem Insomnia due to other mental disorder F51.05 Active 00282205 ALLERGIES No Information ENCOUNTERS Encounter Location Date Diagnosis [facility] [id number] [place] [address] 07021- 5846 February, [place] [address] [address]10 February, [place] [id number] [place] [address] 82672- 1504 Jan, [place] [id number] [place] [address] 75778- 6486 Jan, [facility] [id number] [place] [address] 34655- 9890 Dec, Major depressive disorder, recurrent episode, unspecified severity F33.9 ; Generalized anxiety disorder F41.1 and Eating disorder F50.9 [facility] [id number] [place] [address] 42216- 0568 Dec, [facility] [id number] [place] [address] 83032- 0630 Dec, [facility] [id number] [place] [address] 58522- 9868 Dec, [place] [id number] [place] [address] 17223- 1999 Dec, Increased urinary frequency R35.0 ; Frequent falls R29.6 ; Decubitus ulcer of left buttock, stage 2 L89.322 ; Benzodiazepine abuse F13.10 ; BMI 40.0-44.9, adult Z68.41 and Yeast infection B37.9 [facility] [address] [address] Dec, [facility] [address] [address] 5564 Dec, [facility] [address] [address] 8418 Dec, Increased urinary frequency R35.0 [place] [address] [place] [address] 69130- 3370 Dec, Increased urinary frequency R35.0 [place] [id number] [place] [address] 67756- 9106 Dec, Generalized anxiety disorder F41.1 ; Major depressive disorder, recurrent, moderate F33.1 and Psychophysiological insomnia F51.04 [place] [address] [place] [address] 14635- 4520 Dec, BMI 40.0-44.9, adult Z68.41 ; Type 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 ; Pneumonia due to methicillin resistant Staphylococcus aureus, unspecified laterality, unspecified part of lung J15.212 and COPD exacerbation J44.1 [facility] [id number] [address] Dec, [facility] [id number] [place] [id number] Dec, [facility] [id number] [id number] Oct, [facility] [address] [address] Oct, Frequency of urination R35.0 ; Bronchitis J40 and BMI 40.0- 44.9, adult Z68.41 [facility] [id number] [id number] Oct, [facility] [id number] [place] [address] 86396- 2996 Oct, [place] [id number] [place] [address] 72401- 7428 Oct, BMI 40.0-44.9, adult Z68.41 ; Type 2 diabetes mellitus with hyperglycemia E11.65 ; Essential hypertension I10 ; Vaginal yeast infection B37.3 ; Anxiety F41.9 and Alcoholism F10.20 [place] [id number] [place] [address] 33775- 1455 Oct, [place] [id number] [place] [address] 20008- 2714 Oct, [place] [address] 39469- 9061 Sep, [place] [address] 78441- 7581 Sep, Major depressive disorder, recurrent episode, unspecified severity F33.9 ; Generalized anxiety disorder F41.1 and Eating disorder F50.9 [place] [id number] [place] [address] 40166- 0378 Sep, Major depressive disorder, recurrent, moderate F33.1 ; Type 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 ; Alcohol abuse F10.10 ; Obesity (BMI 30-39.9) E66.9 and Psychophysiological insomnia F51.04 [place] [id number] [place] [address] 67180- 0688 Sep, Diabetes E11.9 and Generalized anxiety disorder F41.1 [place] [id number] [place] [address] 02392- 0771 Sep, Major depressive disorder, recurrent episode, unspecified severity F33.9 ; Generalized anxiety disorder F41.1 and Eating disorder F50.9 [place] [id number] [place] [address] 12231- 1371 Sep, [place] [id number] [place] [address] 40762- 8818 Aug, [place] [address] [address] 6774 Aug, Insomnia due to other mental disorder F51.05 ; Mental disorder, not otherwise specified F99 ; Attention deficit R41.840 ; Ulcer of right foot, unspecified ulcer stage L97.519 ; Cough R05 ; Diabetes E11.9 ; Sore in mouth K13.79 ; Generalized anxiety disorder F41.1 ; Major depressive disorder , recurrent episode, unspecified severity F33.9 and BMI 40.0-44.9, adult Z68.41 [place] [address] [place] [address] 75619- 2891 Aug, [place] [id number] [place] [address] 95700- 6247 Aug, [place] [id number] [place] [address] 54107- 2711 Aug, [place] [id number] [place] [address] 87410- 8746 Aug, [place] [id number] [place] [address] 94765- 4510 Aug, Diabetes E11.9 [email or web address] [address] [place] [id number] Aug, Falling R29.6 ; Alcohol abuse F10.10 ; Major depressive disorder, recurrent episode, unspecified severity F33.9 ; 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 I10 ; Type 2 diabetes mellitus with unspecified complications E11.8 and FCI 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 [facility] [id number] [place] [id number] Aug, [facility] [employer] [address] [place] [id number] Aug, Alcohol abuse F10.10 ; Major depressive disorder, recurrent episode, unspecified severity F33.9 ; Generalized anxiety disorder F41.1 ; terminal clerk 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 ; Psoriatic arthritis L40.50 and Diabetes E11.9 [place] [address] [id number] Aug, [facility] [id number] [place] [address] [id number] Jul, [facility] [address] [address]- 0196 Jul, [facility] [address] [place] [address] 34035- 7693 Jul, Generalized anxiety disorder F41.1 [facility] [address] [place] [address] 21616- 2148 Jul, [facility] [address] [place] [address] 12446- 3730 Jul, [facility] [address] [place] [address] 47066- 5021 Jul, Generalized anxiety disorder F41.1 ; Major depressive disorder, recurrent episode, unspecified severity F33.9 ; PTSD (post-traumatic stress disorder) F43.10 ; Eating disorder F50.9 and Attention-deficit hyperactivity disorder, predominantly hyperactive type F90.1 [facility] [address] [place] [address] 87304- 6838 Jul, [facility] [address] [address]- 5012 Jul, [facility] [address] [place] [address] 04396- 2596 Jul, [facility]CI 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 ; Type 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 ; Urinary tract infection, site not specified N39.0 ; Sepsis, unspecified organism A41.9 and Essential hypertension I10 [facility] [id number] [id number] Jul, [facility] [address] [address] Jul, [facility] [id number] [place] [address] 24673- 4835 Jul, Generalized anxiety disorder F41.1 [facility] [id number] [place] [address] 49787- 7513 Jul, [facility] [id number] [place] [address] 32158- 5513 Jul, Generalized anxiety disorder F41.1 [facility] [id number] [place] [address] 57579- 5450 May, Generalized anxiety disorder F41.1 ; Major depressive disorder, recurrent episode, unspecified severity F33.9 ; PTSD (post-traumatic stress disorder) F43.10 ; Eating disorder F50.9 and Attention-deficit hyperactivity disorder, predominantly hyperactive type F90.1 [facility] [address] [address]- 1706 May, Diabetes E11.9 [facility] [id number] [place] [address] 81472 -7674 May, Acute non-recurrent maxillary sinusitis J01.00 and Diabetes E11.9 [facility] [id number] [place] [address] 68532- 9882 May, [facility] [id number] [place] [address] 80646- 5362 May, [facility] [address] [address]- 4653 May, Generalized anxiety disorder F41.1 [facility] [address] [address]- 0353 Apr, [facility] [id number] [place] [address] 92321- 7157 Apr, [facility] [id number] [place] [address] 16644- 1788 Apr, [facility] [address] [address]- 1391 03 Avery, 2017 Generalized anxiety disorder F41.1 ; Major depressive disorder, recurrent episode, unspecified severity F33.9 ; PTSD (post-traumatic stress disorder) F43.10 ; Eating disorder F50.9 and Attention-deficit hyperactivity disorder, predominantly hyperactive type F90.1 [place] [id number] [place] [address] 24778- 2982 Apr, Major depressive disorder, recurrent, moderate F33.1 [place] [id number] [place] [address] 94887- 4447 Mar, Diabetes E11.9 [place] [id number] [place] [address] 79980- 8530 Mar, Attention-deficit hyperactivity disorder, combined type F90.2 [place] [id number] [place] [address] 10093- 7445 Mar, [place] [id number] [place] [address] 21666- 7117 Mar, Diabetes E11.9 [place] [id number] [place] [address] 48550- 4378 Mar, FCI 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 ; Psoriatic arthritis L40.50 ; Other specified 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 and 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 I10 [place] [id number] [place] [address] 85802- 0090 February, Back pain M54.9 [place] [id number] [place] [address] 55235- 7484 February, Attention-deficit hyperactivity disorder, combined type F90.2 [place] [id number] [place] [address] 47601- 5340 February, Major depressive disorder, recurrent episode, unspecified severity F33.9 and Generalized anxiety disorder F41.1 [place] [id number] [place] [address] 54899- 1058 Jan, Attention-deficit hyperactivity disorder, combined type F90.2 [place] [id number] [place] [address] 39169- 5114 Jan, Major depressive disorder, recurrent, moderate F33.1 ; Generalized anxiety disorder F41.1 and Attention-deficit hyperactivity disorder , combined type F90.2 [place] [id number] [place] [address] 69047- 1506 Dec, Major depressive disorder, recurrent episode, unspecified severity F33.9 ; Generalized anxiety disorder F41.1 and Attention-deficit hyperactivity disorder, predominantly hyperactive type F90.1 [place] [id number] [place] [address] 00375- 0714 Dec, Major depressive disorder, recurrent episode, unspecified severity F33.9 and Generalized anxiety disorder F41.1 [place] [id number] [place] [address] 52159- 3768 Dec, [place] [id number] [place] [address] 25724- 1152 Dec, [place] [id number] [place] [address] 82272- 2489 Dec, Major depressive disorder, recurrent episode, unspecified severity F33.9 and Generalized anxiety disorder F41.1 [place] [id number] [place] [address] 13718- 7262 Dec, Back pain M54.9 [place] [id number] [place] [address] 59523- 1401 17 Dec, 2016 Eustachian tube dysfunction, right H69.81 and Arthritis M19.90 [place] [id number] [place] [address] 32082- 0257 Dec, [place] [id number] [place] [address] 17172- 1808 Dec, [place] [id number] [place] [address] 27033- 9019 07 Dec, 2016 Major depressive disorder, recurrent episode, unspecified severity F33.9 [place] [id number] [address]- 8313 Oct, [facility] [id number] [place] [address] 05470 -3696 Oct, Acute non-recurrent pansinusitis J01.40 and Sore throat J02.9 [facility] [id number] [place] [address] 76134- 3102 Oct, Major depressive disorder, recurrent episode, unspecified severity F33.9 [facility] [id number] [place] [address] 27098- 1435 Oct, Major depressive disorder, recurrent episode, unspecified severity F33.9 and Generalized anxiety disorder F41.1 [place] [id number] [place] [address] 19294- 4694 Sep, [place] [id number] [place] [address] 51251- 0536 Sep, Major depressive disorder, recurrent episode, unspecified severity F33.9 [place] [id number] [place] [address] 18737- 2651 Sep, Major depressive disorder, recurrent episode, unspecified severity F33.9 [facility] [address] [place] [address] 21918 -1719 Sep, Sore throat J02.9 [place] [id number] [place] [address] 62733- 9027 15 Sep, 2016 Generalized anxiety disorder F41.1 ; Major depressive disorder, recurrent episode, unspecified severity F33.9 and Attention-deficit hyperactivity disorder, predominantly hyperactive type F90.1 [place] [id number] [place] [address] 02925- 4868 08 Sep, 2016 Major depressive disorder, recurrent episode, unspecified severity F33.9 and Generalized anxiety disorder F41.1 [place] [address] [place] [address] 26299- 6284 07 Sep, 2016 Psoriatic arthritis L40.50 [facility] [address] [place] [address] 47613- 4423 02 Sep, 2016 Diabetes E11.9 ; FCI 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 ; Back pain M54.9 and Encounter for immunization Z23 [facility] [id number] [place] [address] 23026- 2976 Aug, [facility] [id number] [place] [address] 18501- 0600 Aug, [facility] [id number] [place] [address] 38388- 0975 Jul, Major depressive disorder, recurrent episode, unspecified severity F33.9 ; Attention-deficit hyperactivity disorder, predominantly hyperactive type F90.1 and Generalized anxiety disorder F41.1 [place] [id number] [place] [address] 18829- 2895 Jul, [facility] [id number] [place] [address] 97902- 8321 Jul, Major depressive disorder, recurrent, in partial remission F33.41 and Generalized anxiety disorder F41.1 [place] [id number] [place] [address] 81607- 7481 Jul, [place] [address] [place] [address] 10592- 8049 Jul, [place] [id number] [place] [address] 44901- 2683 Jul, [place] [id number] [place] [address] 83226- 1104 Jul, [place] [id number] [place] [address] 46541- 7128 Jul, Diabetes E11.9 [facility] [id number] [place] [address] 71892- 1500 May, [place] [id number] [place] [address] 18364- 4800 May, [facility] [id number] [place] [address] 25380- 6885 May, [facility] [id number] [place] [address] 58773- 7459 May, Major depressive disorder, recurrent episode, unspecified severity F33.9 ; Generalized anxiety disorder F41.1 and Attention-deficit hyperactivity disorder, predominantly hyperactive type F90.1 [facility] [id number] [place] [address] 78195- 2420 May, [facility] [id number] [place] [address] 75802- 1859 May, Diabetes E11.9 [place] [id number] [place] [address] 47636- 1042 May, [place] [id number] [place] [address] 68152- 0505 May, [facility] [address] [facility] [place] [id number] May, Diabetes E11.9 ; Generalized anxiety disorder F41.1 and Nausea R11.0 [place] [id number] [place] [address] 39176- 4567 May, Psoriatic arthritis L40.50 and Candidiasis of female genitalia B37.3 [place] [id number] [place] [address] 28913- 4466 May, [facility] [id number] [place] [address] 06495- 3293 Apr, [facility] [id number] [place] [address] 36834- 4015 Apr, [facility] [id number] [place] [address] 10730- 8681 Apr, [facility] [id number] [place] [address] 49004- 1116 Apr, Generalized anxiety disorder F41.1 ; Major depressive disorder, recurrent episode, unspecified severity F33.9 and Attention-deficit hyperactivity disorder, predominantly hyperactive type F90.1 [facility] [address] [place] [address] 77817- 2514 Apr, [facility] [id number] [place] [address] 95209- 7248 Apr, [facility] [id number] [place] [address] 36115- 1898 Apr, [facility] [id number] [place] [address] 19973- 9663 Apr, [facility] [id number] [place] [address] 52413- 7381 Apr, [facility] [id number] [place] [address] 94034- 3617 Mar, Attention-deficit hyperactivity disorder, predominantly hyperactive type F90.1 [facility] [id number] [place] [address] 37153- 1760 Mar, [facility] [id number] [place] [address] 20061- 4111 Mar, [facility] [id number] [place] [address] 69708- 1023 Mar, Major depressive disorder, recurrent episode, unspecified severity F33.9 and Generalized anxiety disorder F41.1 [facility] [address] [address]- 8034 February, Diabetes E11.9 [facility] [address] [address] February, OME (otitis media with effusion), bilateral H65.93 [facility] [address] [place] [address] 07034- 7637 February, Back pain M54.9 [facility] [address] [place] [address] 99280- 5051 February, [place] [address] [place] [address] 65788- 2857 February, Nausea R11.0 [place] [id number] [place] [address] 02977- 6434 February, [facility] [id number] [place] [address] 91350- 0376 February, Pre-op evaluation Z01.818 ; Type 2 diabetes mellitus with hyperglycemia E11.65 and terminal clerk 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 [place] [id number] [place] [address] 30703- 9286 February, [facility] [id number] [place] [address] 13979 -4482 February, Right otitis externa H60.91 [place] [id number] [place] [address] 71956- 6766 Jan, [place] [id number] [place] [address] 18441- 9355 Jan, Psoriatic arthritis L40.50 and Arthralgia, unspecified joint M25.50 [place] [id number] [place] [address] 68797- 9919 Jan, Major depressive disorder, recurrent episode, unspecified severity F33.9 ; Generalized anxiety disorder F41.1 and Attention-deficit hyperactivity disorder, unspecified type F90.9 [place] [id number] [place] [address] 53238- 6528 Jan, [facility] [id number] [place] [address] 18091- 5765 Jan, [facility] [id number] [place] [address] 96593- 9912 Jan, Major depressive disorder, recurrent episode, unspecified severity F33.9 and Generalized anxiety disorder F41.1 [place] [id number] [place] [address] 86023- 4226 Jan, [facility] [address] [address] 6576 Dec, 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 I10 and Arthritis M19.90 [facility] [address] [address] 6614 Dec, [facility] [address] [address] 0684 Dec, [facility] [id number] [place] [address] 53283- 6265 Dec, [facility] [address] [address] 0161 Dec, [facility] [id number] [place] [address] 13624- 7665 Dec, [facility] [id number] [place] [address] 04656- 8055 Dec, Major depressive disorder, recurrent episode, unspecified severity F33.9 and Generalized anxiety disorder F41.1 [facility] [address] [address]- 4843 Dec, Diabetes E11.9 ; Back pain M54.9 ; Thrush B37.0 and 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 I10 [facility] [address] [address] 6951 18 Dec, 2015 Major depressive disorder, recurrent episode, unspecified severity F33.9 and Generalized anxiety disorder F41.1 [facility] [address] [address]- 2170 04 Dec, 2015 Major depressive disorder, recurrent episode, in partial or unspecified remission 296.35 ; Major depressive disorder, recurrent episode, unspecified severity F33.9 and Generalized anxiety disorder 300.02 [facility] [address] [address]- 6395 Dec, [facility] [address] [address]- 6467 Oct, [facility] [id number] [place] [address] 24459- 4862 Oct, [facility] [id number] [place] [address] 90739- 2945 Oct, [facility] [id number] [place] [address] 44214- 8527 Oct, [facility] [id number] [place] [address] 51665- 0399 Oct, Major depressive disorder, recurrent, moderate F33.1 and Attention-deficit hyperactivity disorder, unspecified type F90.9 [place] [address] [address]885- 1880 Oct, terminal clerk (current) use of opiate analgesic Z79.891 [place] [address] 48073- 8327 Oct, [facility] [id number] [place] [address] 93841- 4287 Oct, [facility] [id number] [place] [address] 17999 -4773 Sep, URI (upper respiratory infection) J06.9 ; Psoriasis L40.9 ; Cough R05 and Tobacco abuse Z72.0 [place] [id number] [place] [address] 30128- 9923 Sep, Major depressive disorder, recurrent episode, in partial or unspecified remission 296.35 ; Generalized anxiety disorder 300.02 and ADHD, 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 [facility] [id number] [place] [address] 11177 -7213 Sep, Acute sinusitis, unspecified J01.90 [facility] [id number] [place] [address] 67006- 1381 Sep, [facility] [id number] [place] [address] 82223- 0436 Sep, Major depressive disorder, recurrent, moderate F33.1 ; Generalized anxiety disorder F41.1 and Attention-deficit hyperactivity disorder , combined type F90.2 [facility] [id number] [place] [address] 89519- 0173 Sep, [facility] [id number] [place] [address] 61099- 6052 Aug, [facility] [id number] [place] [address] 26860- 9213 Aug, [facility] [id number] [place] [address] 50478- 8170 Aug, Diabetes E11.9 and Anxiety F41.9 [facility] [id number] [place] [address] 58267- 6962 Aug, Major depressive disorder, recurrent episode, unspecified severity F33.9 and Generalized anxiety disorder F41.1 [facility] [id number] [place] [address] 87696- 3967 Aug, [facility] [id number] [place] [address] 02729- 0112 Jul, [facility] [id number] [place] [address] 18139- 6044 Jul, [facility] [id number] [place] [address] 02259- 0748 Jul, [facility] [id number] [place] [address] 36511- 9408 Jul, [facility] [id number] [place] [address] 75755- 6526 Jul, Major depressive disorder, recurrent episode, in partial or unspecified remission 296.35 ; Generalized anxiety disorder 300.02 and ADHD, 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 [facility] [address] [address]- 6547 10 Jul, 2015 Major depressive disorder, recurrent episode, in partial or unspecified remission 296.35 ; Generalized anxiety disorder 300.02 and ADHD, 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 [facility] [address] [address]- 1656 Jul, [facility] [id number] [place] [address] 48678- 0957 May, [facility] [id number] [place] [address] 03192- 9537 May, [facility] [id number] [place] [address] 56177- 6170 May, DM w/o complication type II 250.00 ; Dyspepsia 536.8 and PAD (peripheral artery disease) 443.9 [facility] [id number] [place] [address] 51289- 5119 May, Major depressive disorder, recurrent episode, moderate 296.32 and Generalized anxiety disorder 300.02 [facility] [id number] [place] [address] 65395- 4873 May, [facility] [id number] [place] [address] 55425- 1681 May, Major depressive disorder, recurrent episode, moderate 296.32 and Generalized anxiety disorder 300.02 [facility] [id number] [place] [address] 63452- 5122 May, [facility] [id number] [place] [address] 86296- 2439 Apr, [facility] [id number] [place] [address] 65094- 6221 Apr, Major depressive disorder, recurrent episode, moderate 296.32 and Generalized anxiety disorder 300.02 [facility] [id number] [place] [address] 68805- 1063 Apr, [facility] [id number] [place] [address] 05555- 4345 Apr, [facility] [id number] [place] [address] 04723- 9986 Apr, Generalized anxiety disorder 300.02 ; ADHD, 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 and Depression, major, recurrent, moderate 296.32 [facility] [id number] [place] [address] 21660- 9390 Apr, Major depressive disorder, recurrent episode, moderate 296.32 and Generalized anxiety disorder 300.02 [facility] [id number] [place] [address] 08412- 3575 Apr, [facility] [id number] [place] [address] 17166- 9724 Apr, [facility] [id number] [place] [address] 33692- 7456 Mar, [facility] [id number] [place] [address] 29054- 9128 Mar, Major depressive disorder, recurrent episode, moderate 296.32 and Generalized anxiety disorder 300.02 [facility] [id number] [place] [address] 49433- 9593 Mar, ADHD, 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 ; Major depressive disorder, recurrent episode, severe, without mention of psychotic behavior 296.33 and Generalized anxiety disorder 300.02 [facility] [id number] [place] [address] 77762- 4253 February, Major depressive disorder, recurrent episode, moderate 296.32 and Generalized anxiety disorder 300.02 [facility] [id number] [place] [address] 13172- 9245 February, [facility] [id number] [place] [address] 69715- 9724 February, [facility] [id number] [place] [address] 58044- 6004 February, [facility] [id number] [place] [address] 87624- 9235 February, [facility] [id number] [place] [address] 27862- 0612 February, DM w/o complication type II 250.00 ; Impacted cerumen 380.4 ; Essential hypertension, benign 401.1 and Irritable colon 564.1 [facility] [address] [facility] [id number] [address]- 3124 February, [facility] [address] [address]- 7381 February, [facility] [address] [facility] [id number] 3249 Jan, [facility] [address] [facility] [id number] [place] [address]- 8435 Dec, [facility] [address] [facility] [id number] [place] [address]- 2025 Dec, [facility] [address] [address]- 1369 Dec, [facility] [address] [address]- 5099 Dec, [facility] [address] [address]- 5840 Dec, [facility] [address] [address]- 5031 Dec, [facility] [address] [address]- 8363 Dec, [facility] [address] [address]- 6770 Dec, [facility] [address] 7336 Dec, [facility] [address] 3048 Dec, [facility] [address] [place] [id number] 7950 Dec, [facility] [place] [facility] [address] [facility] [id number] [place] [address]- 5378 Dec, 2014 [facility] [place] [facility] [address] [id number] [place] [address]- 7163 Dec, 2014 [facility] [place] [facility] [address] [id number] [place] [address]- 4283 Dec, 2014 [facility] [place] [facility] [address] [id number] [place] [address]- 9697 Dec, [facility] [place] [facility] [address] [id number] [place] [address]- 3387 Dec, [facility] [place] [facility] [address] [id number] [place] [address]- 1328 Oct, [facility] [place] [facility] [address] [id number] [place] [address]- 8270 Oct, [facility] [place] [facility] [address] [id number] [place] [address]- 3809 Oct, [facility] [place] [facility] [address] [id number] [place] [address]- 9284 Oct, [facility] [place] [facility] [address] [id number] [place] [address]- 9113 Oct, [facility] [place] [facility] [address] [id number] [place] [address]- 6733 Oct, [facility] [place] [facility] [address] [id number] [place] [address]- 9970 Oct, [facility] [place] [facility] [address] [id number] [place] [address]- 9582 Oct, [facility] [place] [facility] [address] [id number] [place] [address]- 4301 Oct, [facility] [place] [facility] [address] [id number] [place] [address]- 6721 Oct, [facility] [place] [facility] [address] [id number] [place] [address]- 3528 Oct, [facility] [place] [facility] [address] [id number] [place] [address]- 8863 Sep, [facility] [place] [facility] [address] [id number] [place] 0174 Sep, [facility] [place] [facility] [address] [id number] [place] [address]- 7186 Sep, [facility] [place] [facility] [address] [id number] [place] [address]- 5561 Sep, [facility] [place] [facility] [address] [id number] [place] [address]- 4804 Sep, [facility] [place] [facility] [address] [id number] [place] [address]- 7878 Sep, [facility] [place] [facility] [address] [id number] [place] [address]- 3783 Sep, [facility] [place] [facility] [address] [id number] [place] [address]- 0377 Sep, [facility] [place] [facility] [address] [id number] [place] [address]- 2308 Aug, [facility] [place] [facility] [address] [id number] [place] [address]- 3321 Aug, [facility] [place] [facility] [address] [id number] [place] [address]- 6607 Aug, [facility] [place] [facility] [address] [id number] [place] [address]- 8307 Aug, [facility] [place] [facility] [address] [id number] [place] [address]- 4480 Aug, [facility] [place] [facility] [address] [id number] [place] [address]- 9966 Aug, [facility] [place] [facility] [address] [id number] [place] [address]- 1337 Aug, [facility] [place] [facility] [address] [id number] [place] [address]- 0998 Aug, [facility] [place] [facility] [address] [id number] [place] [address]- 9282 Aug, [facility] [place] [facility] [address] [id number] [place] [address]- 7254 Aug, [facility] [place] [facility] [address] [id number] [place] [address]- 8308 Aug, [facility] [place] [facility] [address] [id number] [place] [address]- 2534 Aug, [facility] [place] [facility] [address] [id number] [place] [address]- 6336 Aug, [facility] [place] [facility] [address] [id number] [place] [address]- 5455 Aug, [facility] [place] [facility] [address] [id number] [place] [address]- 0973 Jul, [facility] [place] [facility] [address] [id number] [place] [address]- 4636 Jul, [facility] [place] [facility] [address] [id number] [place] [address]- 6923 Jul, [facility] [place] [facility] [address] [facility] [id number] [place] [address]- 1449 Jul, [facility] [place] [facility] [address] [id number] [place] [address]- 0252 Jul, [facility] [place] [facility] [address] [id number] [place] [address]- 6115 Jul, [facility] [place] [facility] [address] [id number] [place] [address]- 3425 Jul, [facility] [place] [facility] [address] [id number] [place] [address]- 0374 Jul, [facility] [place] [facility] [address] [id number] [place] [address]- 6386 Jul, [facility] [place] [facility] [address] [id number] [place] [address]- 2084 Jul, [facility] [place] [facility] [address] [id number] [place] [address]- 4995 Jul, [facility] [place] [facility] [address] [id number] [place] [address]- 9649 Jul, [facility] [place] [facility] [address] [id number] [place] [address]- 1347 Jul, [facility] [place] [facility] [address] [id number] [place] [address]- 5794 Jul, [facility] [place] [facility] [address] [id number] [place] [address]- 4943 May, [facility] [place] [facility] [address] [id number] [place] [address]- 1940 May, [facility] [place] [facility] [address] [id number] [place] [address]- 6995 May, [facility] [place] [facility] [address] [id number] [place] [address]- 5479 May, [facility] [place] [facility] [address] [id number] [place] [address]- 9795 May, [facility] [place] [facility] [address] [id number] [place] [address]- 6650 May, [facility] [place] [facility] [address] [id number] [place] [address]- 3401 May, [facility] [place] [facility] [address] [id number] [place] [address]- 7374 May, [facility] [place] [facility] [address] [id number] [place] [address]- 3241 May, [facility] [place] [facility] [address] [id number] [place] [address]- 5874 May, [facility] [place] [facility] [address] [id number] [place] [address]- 8731 May, [facility] [place] [facility] [address] [id number] [place] [address]- 5727 May, [facility] [place] [facility] [address] [id number] [place] [address]- 1741 Apr, [facility] [place] [facility] [address] [id number] [place] [address]- 0759 Apr, [facility] [place] [facility] [address] [id number] [place] [address]- 5525 Apr, [facility] [place] [facility] [address] [id number] [place] [address]- 5826 Apr, [facility] [place] [facility] [address] [id number] [place] [address]- 5808 Apr, [facility] [place] [facility] [address] [id number] [place] [address]- 1009 Apr, [facility] [place] [facility] [address] [id number] [place] [address]- 2279 Mar, [facility] [place] [facility] [address] [id number] [place] [address]- 4076 Mar, [facility] [place] [facility] [address] [id number] [place] [address]- 0779 Mar, [facility] [place] [facility] [address] [id number] [place] [address]- 4837 Mar, [facility] [place] [facility] [address] [id number] [place] [address]- 4166 Mar, [facility] [place] [facility] [address] [id number] [place] [address]- 8784 Mar, [facility] [place] [facility] [address] [id number] [place] [address]- 3700 Mar, [facility] [place] [facility] [address] [id number] [place] [address]- 4567 Mar, [facility] [place] [facility] [address] [id number] [place] [address]- 8467 Mar, [facility] [place] [facility] [address] [id number] [place] [address]- 8910 Mar, [facility] [place] [facility] [address] [id number] [place] [address]- 6644 Mar, [facility] [place] [facility] [address] [id number] [place] [address]- 9826 Mar, [facility] [place] [facility] [address] [id number] [place] [address]- 3624 Mar, [facility] [place] [facility] [address] [id number] [place] [address]- 2242 February, [facility] [place] [facility] [address] [id number] [place] [address]- 7919 February, [facility] [place] [facility] [address] [id number] [place] [address]- 0749 February, [facility] [place] [facility] [address] [id number] [place] [address]- 7872 February, [facility] [place] [facility] [address] [id number] [place] [address]- 6451 February, [facility] [place] [facility] [address] [id number] [place] [address]- 8223 February, [facility] [place] [facility] [address] [id number] [place] [address]- 5634 February, [facility] [place] [facility] [address] [id number] [place] [address]- 7768 February, [facility] [place] [facility] [address] [id number] [place] [address]- 6503 February, [facility] [place] [facility] [address] [id number] [place] 0127 February, [facility] [place] [facility] [address] [id number] [place] [address]- 7225 February, [facility] [place] [facility] [address] [id number] [place] [address]- 9031 February, [facility] [place] [facility] [address] [id number] [place] [address]- 6926 February, [facility] [place] [facility] [address] [id number] [place] [address]- 4063 February, [facility] [place] [facility] [address] [id number] [place] [address]- 3419 Jan, [facility] [place] [facility] [address] [id number] [place] [address]- 3904 Jan, [facility] [place] [facility] [address] [id number] [place] [address]- 5342 Jan, [facility] [place] [facility] [address] [id number] [place] [address]- 0022 Jan, [facility] [place] [facility] [address] [id number] [place] [address] Jan, [facility] [place] [facility] [address] [id number] [place] [address] Jan, [facility] [place] [facility] [address] [id number] [place] [address] Jan, [facility] [place] [facility] [address] [id number] [place] [address] Jan, [facility] [place] [facility] [address] [id number] [place] [address] Jan, [facility] [place] [facility] [address] [id number] [place] [address] Dec, [facility] [place] [facility] [address] [id number] [place] [address] Dec, [facility] [place] [facility] [address] [id number] [place] [address] Dec, [facility] [place] [facility] [address] [id number] [place] [address] Dec, [facility] [place] [facility] [address] [id number] [place] [address] Dec, [facility] [place] [facility] [address] [id number] [place] [address] Dec, [facility] [place] [facility] [address] [id number] [place] [address] Dec, [facility] [place] [facility] [address] [id number] [place] [address] Dec, [facility] [place] [facility] [address] [id number] [place] [address] Dec, [facility] [place] [facility] [address] [id number] [place] [address] Dec, [facility] [place] [facility] [address] [id number] [place] [address] 14 Dec, 2013 [facility] [place] [facility] [address] [id number] [place] [address] Dec, [facility] [place] [facility] [address] [id number] [place] [address] Dec, [facility] [place] [facility] [address] [id number] [place] [address] Dec, [facility] [place] [facility] [address] [id number] [place] [address] Dec, [facility] [place] [facility] [address] [id number] [place] [address] Dec, [facility] [place] [facility] [address] [id number] [place] [address] Dec, [facility] [place] [facility] [address] [id number] [place] [address] Oct, [facility] [place] [facility] [address] [id number] [place] [address] Oct, [facility] [address] [id number] [place] [address] Oct, [facility] [place] [facility] [address] [id number] [place] [address] Oct, [facility] [place] [facility] [address] [id number] [place] [address] Oct, [facility] [place] [facility] [address] [id number] [place] [address] Oct, [facility] [place] [facility] [address] [id number] [place] [address] Oct, [facility] [place] [facility] [address] [id number] [place] [address] Oct, [facility] [place] [facility] [address] [id number] [place] [address] Oct, [facility] [place] [facility] [address] [id number] [place] [address] Oct, [facility] [place] [facility] [address] [id number] [place] [address] Oct, [facility] [place] [facility] [address] [id number] [place] [address] Oct, [facility] [place] [facility] [address] [id number] [place] [address] Oct, [facility] [place] [facility] [address] [id number] [place] [address] Oct, [facility] [place] [facility] [address] [id number] [place] [address] Sep, [facility] [place] [facility] [address] [id number] [place] [address] Sep, [facility] [place] [facility] [address] [id number] [place] [address] Sep, [facility] [place] [facility] [address] [id number] [place] [address] 30 Sep, 2013 [facility] [facility] [address] [id number] [place] [address] 27 Sep, 2013 [facility] [place] [facility] [address] [id number] [place] [address] 27 Sep, 2013 [facility] [address] [id number] [place] [address] 2690 27 Sep, 2013 [facility] [place] [facility] [address] [id number] [place] [address] 8346 27 Sep, 2013 [facility] [address] [id number] [place] [address] 7[address] 27 Sep, 2013 [facility] [place] [facility] [address] [id number] [place] [address] 8301 27 Sep, 2013 [facility] [address] [id number] [place] [address] 9946 16 Sep, 2013 [facility] [place] [facility] [address] [id number] [place] [address] 7100 16 Sep, 2013 [facility] [place] [facility] [address] [id number] [place] [address] 3704 13 Sep, 2013 [facility] [place] [facility] [address] [facility] [id number] [place] [address] 5967 13 Sep, 2013 [facility] [place] [facility] [address] [id number] [place] [address] 1808 10 Sep, 2013 [facility] [place] [facility] [address] [id number] [place] [address] 2540 10 Sep, 2013 [facility] [place] [facility] [address] [id number] [place] [address]- 5047 02 Sep, 2013 [facility] [place] [facility] [address] [id number] [place] [address] 1612 02 Sep, 2013 [facility] [place] [facility] [address] [facility] [id number] [place] [address] 9143 15 Aug, 2013 [facility] [place] [facility] [address] [id number] [place] [address]- 3051 15 Aug, 2013 [facility] [place] [facility] [address] [id number] [place] [address]- 1492 16 Jul, 2013 [facility] [place] [facility] [address] [id number] [place] [address]- 4075 16 Jul, 2013 [facility] [place] [facility] [address] [id number] [place] [address]- 4424 14 Jul, 2013 [facility] [place] [facility] [address] [id number] [place] [address]- 8058 14 Jul, 2013 [facility] [place] [facility] [address] [id number] [place] [address]- 6512 08 Jul, 2013 [facility] [place] [facility] [address] [id number] [place] [address]- 1378 20 Jul, 2012 [facility] [place] [facility] [address] [id number] [place] [address]- 7242 19 Jul, 2012 [facility] [place] [facility] [address] [id number] [place] [address]- 6475 13 Jul, 2012 [facility] [place] [facility] [address] [id number] [place] [address]- 0545 08 Jul, 2012 [facility] [place] [facility] [address] [id number] [place] [address]- 8473 06 Sep, 2012 [facility] [place] [facility] [address] [id number] [place] [address]- 2549 06 Sep, 2012 [facility] [place] [facility] [address] [id number] [place] [address]- 9919 06 Sep, 2012 [facility] [place] [facility] [address] [id number] [place] [address]- 254 03 Jul, 2012 [facility] [place] [facility] [address] [id number] [place] [address]- 5552 29 May, 2013 [facility] [place] [facility] [address] [id number] [place] [address]- 6169 May, [facility] [address] [id number] [place] [address] 8240 May, [facility] [place] [facility] [address] [id number] [place] [address]- 5917 May, [facility] [place] [facility] [address] [id number] [place] [address]- 8484 Apr, [facility] [place] [facility] [address] [id number] [place] [address]- 8961 Apr, [facility] [place] [facility] [address] [id number] [place] [address]- 8398 Apr, [facility] [place] [facility] [address] [id number] [place] [address]- 3658 Mar, [facility] [place] [facility] [address] [id number] [place] [address] 0279 Mar, [facility] [place] [facility] [address] [id number] [place] [address]- 2396 Mar, [facility] [place] [facility] [address] [id number] [place] [address] 0168 Mar, [facility] [place] [facility] [address] [id number] [place] [address]- 9064 February, [facility] [place] [facility] [address] [id number] [place] [address]- 8356 February, [facility] [place] [facility] [address] [id number] [place] [address] 9940 Jan, [facility] [place] [facility] [address] [id number] [place] [address]- 5595 Dec, [facility] [place] [facility] [address] [id number] [place] [address]- 6941 Dec, [facility] [place] [facility] [address] [id number] [place] [address]- 3555 Dec, [facility] [place] [facility] [address] [id number] [place] [address]- 3173 05 Dec, 2012 [facility] [address] [id number] [place] [address]- 2716 28 Dec, 2012 [facility] [place] [facility] [address] [id number] [place] [address] 2546 27 Dec, 2012 [facility] [place] [facility] [address] [id number] [place] [address]- 9696 26 Dec, 2012 [facility] [place] [facility] [address] [id number] [place] [address]- 2540 Dec, [facility] [place] [facility] [address] [id number] [place] [address]- 9536 Dec, [facility] [place] [facility] [address] [id number] [place] [address]- 3657 15 Dec, 2012 [facility] [place] [facility] [address] [id number] [place] [address]- 5250 14 Dec, 2012 [facility] [place] [facility] [address] [id number] [place] [address]- 4353 Oct, [facility] [place] [facility] [address] [id number] [place] [address] 2980 Oct, [facility] [place] [facility] [address] [id number] [place] [address]- 2075 Oct, [facility] [place] [facility] [address] [id number] [place] [address]- 2545 Oct, [facility] [place] [facility] [address] [id number] [place] [address] 2545 Sep, [facility] [place] [facility] [address] [id number] [place] [address] 2546 Sep, [facility] [place] [facility] [address] [id number] [place] [address]- 2543 Sep, [facility] [place] [facility] [address] [id number] [place] [address]- 5192 Sep, [facility] [place] [facility] [address] [id number] [place] [address]- 7639 Sep, [facility] [place] [facility] [address] [id number] [place] [address]- 1696 Sep, [facility] [place] [facility] [address] [facility] [id number] [place] [address]- 9707 Aug, [facility] [place] [facility] [address] [id number] [place] [address]- 5692 Aug, [facility] [place] [facility] [address] [id number] [place] [address]- 2158 Aug, [facility] [place] [facility] [address] [facility] [id number] [place] [address] 8023 Aug, [facility] [place] [facility] [address] [facility] [id number] [place] [address]- 2103 Aug, [facility] [place] [facility] [address] [id number] [place] [address] 6155 Aug, [facility] [place] [facility] [address] [facility] [id number] [place] [address]- 6622 Jul, [facility] [place] [facility] [address] [facility] [id number] [place] [address]- 9230 Jul, [facility] [place] [facility] [address] [facility] [id number] [place] [address]- 8066 Jul, [facility] [place] [facility] [address] [id number] [place] [address] 2547 Jul, [facility] [place] [facility] [address] [id number] [place] [address] 2545 Jul, [facility] [place] [facility] [address] [facility] [id number] [place] [address]- 7423 Jul, [facility] [place] [facility] [address] [facility] [id number] [place] [address] 2547 Jul, [facility] [place] [facility] [address] [id number] [place] [address]- 7726 21 Jul, 2012 [facility] [place] [facility] [address] [id number] [place] [address] 2546 20 Jul, 2012 [facility] [place] [facility] [address] [id number] [place] [address] 2546 11 Jul, 2012 [facility] [place] [facility] [address] [id number] [place] [address] 2546 Jul, [facility] [place] [facility] [address] [id number] [place] [address] 2546 May, [facility] [place] [facility] [address] [id number] [place] [address]- 9808 May, [facility] [place] [facility] [address] [id number] [place] [address]- 9936 May, [facility] [place] [facility] [address] [id number] [place] [address]- 9496 May, [facility] [place] [facility] [address] [id number] [place] [address]- 2736 Apr, [facility] [place] [facility] [address] [id number] [place] [address] 2546 Apr, [facility] [place] [facility] [address] [id number] [place] [address]- 2547 Apr, [facility] [place] [facility] [address] [id number] [place] [address] 2546 Apr, [facility] [place] [facility] [address] [id number] [place] [address]- 2545 Apr, [facility] [place] [facility] [address] [id number] [place] [address] 2544 Apr, [facility] [place] [facility] [address] [id number] [place] [address]- 2546 Apr, [facility] [place] [facility] [address] [id number] [place] [address] 2540 Apr, [facility] [place] [facility] [address] [id number] [place] [address]- 6137 28 Mar, 2012 [facility] [place] [facility] [address] [id number] [place] [address]- 2612 27 Mar, 2012 [facility] [place] [facility] [address] [id number] [place] [address]- 0854 20 Mar, 2012 [facility] [place] [facility] [address] [id number] [place] [address]- 3740 15 Mar, 2012 [facility] [place] [facility] [address] [id number] [place] [address]- 2775 14 Mar, 2012 [facility] [place] [facility] [address] [id number] [place] [address]- 8950 Mar, [facility] [place] [facility] [address] [id number] [place] [address]- 0012 Mar, [facility] [place] [facility] [address] [id number] [place] [address]- 7231 Mar, [facility] [place] [facility] [address] [id number] [place] [address]- 2404 Mar, [facility] [place] [facility] [address] [id number] [place] [address]- 6309 February, [facility] [place] [facility] [address] [id number] [place] [address]- 2696 February, [facility] [place] [facility] [address] [id number] [place] [address]- 6380 February, [facility] [place] [facility] [address] [id number] [place] [address]- 1084 February, [facility] [place] [facility] [address] [id number] [place] [address]- 7457 Jan, [facility] [place] [facility] [address] [id number] [place] [address]- 7007 03 Jan, 2012 [facility] [place] [facility] [address] [id number] [place] [address]- 1257 28 Dec, 2011 [facility] [address] [id number] [place] [address]- 7586 15 Dec, 2011 [facility] [place] [facility] [address] [id number] [place] [address]- 9226 14 Dec, 2011 [facility] [place] [facility] [address] [id number] [place] [address]- 1716 07 Dec, 2011 [facility] [place] [facility] [address] [id number] [place] [address]- 0588 28 Dec, 2011 [facility] [place] [facility] [address] [id number] [place] [address]- 3746 27 Dec, 2011 [facility] [place] [facility] [address] [id number] [place] [address]- 8226 21 Dec, 2011 [facility] [address] [id number] [place] [address]- 8236 21 Dec, 2011 [facility] [place] [facility] [address] [id number] [place] [address]- 7270 07 Dec, 2011 [facility] [place] [facility] [address] [id number] [place] [address]- 5727 07 Dec, 2011 [facility] [place] [facility] [address] [facility] [id number] [place] [address]- 3936 07 Dec, 2011 [facility] [place] [facility] [address] [facility] [id number] [place] [address]- 4056 Dec, [facility] [place] [facility] [address] [id number] [place] [address]- 4733 Oct, [facility] [place] [facility] [address] [id number] [place] [address]- 6981 Oct, [facility] [place] [facility] [address] [facility] [id number] [place] [address]- 3185 Oct, [facility] [place] [facility] [address] [id number] [place] [address]- 8977 Oct, [facility] [place] [facility] [address] [id number] [place] [address]- 1088 Oct, [facility] [address] [id number] [place] [address]- 5887 Oct, [facility] [address] [id number] [place] [address]- 0723 16 Oct, 2011 [facility] [address] [id number] [place] [address]- 8056 Oct, [facility] [address] [id number] [place] [address]- 7022 Sep, [facility] [address] [id number] [place] [address]- 3302 Sep, [facility] [address] [id number] [place] [address]- 3387 Sep, [facility] [address] [id number] [place] [address]- 7754 Aug, [facility] [address] [id number] [place] [address]- 8740 Aug, [facility] [address] [id number] [place] [address]- 6754 Aug, [facility] [address] [id number] [place] [address]- 8806 Aug, [facility] [address] [id number] [place] [address]- 1736 Aug, [facility] [place] [facility] [address] [id number] [place] [address]- 5959 Jul, [facility] [place] [facility] [address] [id number] [place] [address]- 4075 Jul, [facility] [place] [facility] [address] [id number] [place] [address]- 9001 May, [facility] [place] [facility] [address] [id number] [place] [address]- 9446 Dec, [facility] [address] [facility] [id number] [place] [address]- 6106 Oct, [facility] [address] [facility] [id number] [place] [address]- 6636 Sep, [facility] [address] [facility] [id number] [place] [address]- 9585 Sep, [facility] [address] [facility] [id number] [place] [address]- 0164 Sep, IMMUNIZATIONS No Known Immunizations SOCIAL HISTORY Never Assessed REASON FOR VISIT medication PLAN OF CARE VITAL SIGNS MEDICATIONS Unknown [...] veinous reflux Surgical History Left Knee SOA-Dr. Melendrez-[facility] 05/19/16 Surgical History Colonoscopy- Dr Castanon 01/26/2017 Hospitalization History surgeries Hospitalization History Left Knee SOA--Dr. Melendrez--[facility] Hospitalization History Septic shock, UTI-[facility] 07/27/17 Hospitalization History Multiple falls, hyperglycemia, sepsis 07/2017 Hospitalization History Alcoholism, depression, DM, Falls-[facility] 08/23/17 Hospitalization History COPD exacerbation-[facility] 11/25/17 Hospitalization History COPD exacerbation-[facility] 11/28/17
[2018-05-10 03:45] VITALS: BP 174/86
--- OUTSIDE RECORDS SUMMARY | 2018-05-10 03:46 | XMS REPORT ---
Author Author REJI ROY [facility] Address [address] [place] [address] Care Team Providers Care Accounting Technician Name Role Phone REJI ROY Unavailable PROBLEMS Type Condition ICD9-CM Code ZEZ58-SD Code Onset Dates Condition Status SNOMED Code Problem Generalized anxiety disorder F41.1 Active 69309302 Problem Diabetes E11.9 Active 35541856 Problem Psoriasis L40.9 Active 0037981 Problem Tobacco abuse Z72.0 Active 35910468 Problem 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 I10 Active 84891850 Problem Back pain M54.9 Active 457182039 Problem Arthritis M19.90 Active 7699564 Problem long term care social worker 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 Active 598789319 Problem Psoriatic arthritis L40.50 Active 218950544 Problem Psychophysiological insomnia F51.04 Active 32491494 Problem Other specified 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 Active 694031387 Problem Obesity (BMI 30-39.9) E66.9 Active 969570092 Problem Major depressive disorder, recurrent, moderate F33.1 Active 85801376 Problem Essential hypertension I10 Active 45299799 Problem Type 2 diabetes mellitus with hyperglycemia E11.65 Active 013046874825956 Problem Alcoholism F10.20 Active 1945896 Problem Frequent falls R29.6 Active 267838678 Problem Benzodiazepine abuse F13.10 Active 821006582 Problem PTSD (post-traumatic stress disorder) F43.10 Active 73515919 Problem Eating disorder F50.9 Active 57174836 Problem Attention-deficit hyperactivity disorder, combined type F90.2 Active 95928055 Problem COPD exacerbation J44.1 Active 366532337 Problem Anxiety F41.9 Active 11105480 Problem Decubitus ulcer of left buttock, stage 2 L89.322 Active 097246670 Problem BMI 40.0-44.9, adult Z68.41 Active 885204391 Problem Alcohol abuse F10.10 Active 00969335 Problem Pneumonia due to methicillin resistant Staphylococcus aureus, unspecified laterality, unspecified part of lung J15.212 Active 702571573655509 Problem Type 2 diabetes mellitus with unspecified complications E11.8 Active 56177742 Problem Attention-deficit hyperactivity disorder, predominantly hyperactive type F90.1 Active 262518931 Problem Type 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 Active 34061597 Problem Ulcer of right foot, unspecified ulcer stage L97.519 Active 59316295 Problem Attention deficit R41.840 Active 72553665 Problem Mental disorder, not otherwise specified F99 Active 51760048 Problem Insomnia due to other mental disorder F51.05 Active 98086025 ALLERGIES No Information ENCOUNTERS Encounter Location Date Diagnosis [facility] [id number] [place] [address] 68483- 6474 14 Mar, 2018 [place] [address] 9[address]18- [address]884 Jan, [facility] [address] 47651- 3372 Dec, Major depressive disorder, recurrent episode, unspecified severity F33.9 ; Generalized anxiety disorder F41.1 and Eating disorder F50.9 [facility] [id number] [place] [address] 79991- 1989 Dec, [facility] [address] 29530- 4189 Dec, [facility] [id number] [place] [address] 41258- 1304 Dec, [facility] [id number] [place] [address] 30322- 3995 Dec, Increased urinary frequency R35.0 ; Frequent falls R29.6 ; Decubitus ulcer of left buttock, stage 2 L89.322 ; Benzodiazepine abuse F13.10 ; BMI 40.0-44.9, adult Z68.41 and Yeast infection B37.9 [facility] [id number] [place] [address] 45686- 5914 Dec, [facility] [address] 61962- 3370 Dec, [facility] [id number] [address] 3825 Dec, Increased urinary frequency R35.0 [facility] [address] [address] 8006 Dec, Increased urinary frequency R35.0 [facility] [id number] [place] [address] 18970- 7441 Dec, Generalized anxiety disorder F41.1 ; Major depressive disorder, recurrent, moderate F33.1 and Psychophysiological insomnia F51.04 [facility] [id number] [place] [address] 45225- 9516 08 Dec, 2017 BMI 40.0-44.9, adult Z68.41 ; Type 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 ; Pneumonia due to methicillin resistant Staphylococcus aureus, unspecified laterality, unspecified part of lung J15.212 and COPD exacerbation J44.1 [facility] [address] [address] Dec, [facility] [id number] [place] [address] [id number] Dec, [facility] [id number] [place] [address] [id number] Oct, [facility] [address] [address] Oct, Frequency of urination R35.0 ; Bronchitis J40 and BMI 40.0- 44.9, adult Z68.41 [facility] [id number] [place] [address] Oct, [facility] [id number] [place] [address] 76930- 1898 Oct, [facility] [id number] [address]- 5562 Oct, BMI 40.0-44.9, adult Z68.41 ; Type 2 diabetes mellitus with hyperglycemia E11.65 ; Essential hypertension I10 ; Vaginal yeast infection B37.3 ; Anxiety F41.9 and Alcoholism F10.20 [facility] [place] [id number] [place] [address] 73942- 3123 Oct, [facility] [id number] [place] [address] 58665- 1148 Oct, [facility] [place] [address] 66472- 7637 Sep, [facility] [place] [id number] [place] [address] 68366- 2152 Sep, Major depressive disorder, recurrent episode, unspecified severity F33.9 ; Generalized anxiety disorder F41.1 and Eating disorder F50.9 [facility] [place] [id number] [place] [address] 23616- 6433 Sep, Major depressive disorder, recurrent, moderate F33.1 ; Type 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 ; Alcohol abuse F10.10 ; Obesity (BMI 30-39.9) E66.9 and Psychophysiological insomnia F51.04 [facility] [place] [id number] [place] [address] 08566- 4261 Sep, Diabetes E11.9 and Generalized anxiety disorder F41.1 [facility] [id number] [place] [address] 93476- 8076 Sep, Major depressive disorder, recurrent episode, unspecified severity F33.9 ; Generalized anxiety disorder F41.1 and Eating disorder F50.9 [facility] [place] [id number] [place] [address] 30286- 6067 Sep, [facility] [place] [id number] [place] [address] 48473- 0864 Aug, [facility] [place] [id number] [place] [address] 47789- 4306 Aug, Insomnia due to other mental disorder F51.05 ; Mental disorder, not otherwise specified F99 ; Attention deficit R41.840 ; Ulcer of right foot, unspecified ulcer stage L97.519 ; Cough R05 ; Diabetes E11.9 ; Sore in mouth K13.79 ; Generalized anxiety disorder F41.1 ; Major depressive disorder , recurrent episode, unspecified severity F33.9 and BMI 40.0-44.9, adult Z68.41 [facility] [place] [address] [address]- 3247 Aug, [facility] [id number] [place] [address] 19848- 7651 Aug, [facility] [id number] [place] [address] 98392- 7475 Aug, [facility] [place] [id number] [place] [address] 11847- 2117 Aug, [place] [id number] [place] [address] 11286- 0036 Aug, Diabetes E11.9 [facility] [address] [place] [id number] Aug, Falling R29.6 ; Alcohol abuse F10.10 ; Major depressive disorder, recurrent episode, unspecified severity F33.9 ; 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 I10 ; Type 2 diabetes mellitus with unspecified complications E11.8 and senior care 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 [place] [id number] [place] [address] [id number] Aug, [facility] [address] [place] [id number] Aug, Alcohol abuse F10.10 ; Major depressive disorder, recurrent episode, unspecified severity F33.9 ; Generalized anxiety disorder F41.1 ; long term care social worker 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 ; Psoriatic arthritis L40.50 and Diabetes E11.9 [place] [id number] [place] [address] [id number] Aug, [place] [id number] [place] [address] [id number] Jul, [facility] [id number] [address]- 2061 Jul, [facility] [id number] [place] [address] 76173- 3202 Jul, Generalized anxiety disorder F41.1 [facility] [id number] [place] [address] 64575- 1682 Jul, [facility] [id number] [place] [address] 72343- 9476 Jul, [facility] [id number] [place] [address] 34414- 2991 Jul, Generalized anxiety disorder F41.1 ; Major depressive disorder, recurrent episode, unspecified severity F33.9 ; PTSD (post-traumatic stress disorder) F43.10 ; Eating disorder F50.9 and Attention-deficit hyperactivity disorder, predominantly hyperactive type F90.1 [facility] [id number] [place] [address] 11742- 9957 Jul, [facility] [id number] [place] [address] 93076- 1774 Jul, [facility] [id number] [place] [address] 50398- 4155 Jul, senior care 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 ; Type 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 ; Urinary tract infection, site not specified N39.0 ; Sepsis, unspecified organism A41.9 and Essential hypertension I10 [facility] [id number] [place] [address] [id number] Jul, [facility] [address] [address] Jul, [facility] [id number] [place] [address] 64992- 3916 Jul, Generalized anxiety disorder F41.1 [facility] [address] [address]- 6531 15 Jul, 2017 [facility] [id number] [address]- 7730 Jul, Generalized anxiety disorder F41.1 [facility] [id number] [place] [address] 48025- 0454 May, Generalized anxiety disorder F41.1 ; Major depressive disorder, recurrent episode, unspecified severity F33.9 ; PTSD (post-traumatic stress disorder) F43.10 ; Eating disorder F50.9 and Attention-deficit hyperactivity disorder, predominantly hyperactive type F90.1 [facility] [address] [address]- 4651 May, Diabetes E11.9 [facility] [id number] [place] [address] 23163 -6691 May, Acute non-recurrent maxillary sinusitis J01.00 and Diabetes E11.9 [facility] [address] [address]- 6351 May, [facility] [id number] [place] [address] 87966- 7574 May, [facility] [id number] [place] [address] 04573- 9147 May, Generalized anxiety disorder F41.1 [facility] [address] [address]- 4459 Apr, [facility] [address] [address]- 6034 Apr, [facility] [address] [address]- 7819 Apr, [facility] [address] [address]- 3106 Apr, Generalized anxiety disorder F41.1 ; Major depressive disorder, recurrent episode, unspecified severity F33.9 ; PTSD (post-traumatic stress disorder) F43.10 ; Eating disorder F50.9 and Attention-deficit hyperactivity disorder, predominantly hyperactive type F90.1 [facility] [id number] [address]- 9982 Apr, Major depressive disorder, recurrent, moderate F33.1 [facility] [id number] [place] [address] 46521- 5213 Mar, Diabetes E11.9 [place] [place] [id number] [place] [address] 12875- 0028 Mar, Attention-deficit hyperactivity disorder, combined type F90.2 [facility] [place] [id number] [place] [address] 01797- 9208 14 Mar, 2017 [place] [id number] [place] [address] 73170- 3172 09 Mar, 2017 Diabetes E11.9 [facility] [place] [id number] [place] [address] 61026- 2272 07 Mar, 2017 senior care 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 ; Psoriatic arthritis L40.50 ; Other specified 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 and Hypertension I10 [facility] [place] [id number] [place] [address] 56699- 2521 February, Back pain M54.9 [place] [place] [id number] [place] [address] 93323- 4668 February, Attention-deficit hyperactivity disorder, combined type F90.2 [place] [id number] [place] [address] 51941- 3552 February, Major depressive disorder, recurrent episode, unspecified severity F33.9 and Generalized anxiety disorder F41.1 [place] [id number] [place] [address] 51089- 3057 Jan, Attention-deficit hyperactivity disorder, combined type F90.2 [facility] [id number] [place] [address] 59627- 8145 Jan, Major depressive disorder, recurrent, moderate F33.1 ; Generalized anxiety disorder F41.1 and Attention-deficit hyperactivity disorder , combined type F90.2 [facility] [id number] [place] [address] 34138- 1730 Dec, Major depressive disorder, recurrent episode, unspecified severity F33.9 ; Generalized anxiety disorder F41.1 and Attention-deficit hyperactivity disorder, predominantly hyperactive type F90.1 [facility] [id number] [place] [address] 39542- 9183 Dec, Major depressive disorder, recurrent episode, unspecified severity F33.9 and Generalized anxiety disorder F41.1 [place] [id number] [place] [address] 17041- 2286 Dec, [place] [id number] [place] [address] 14632- 2040 Dec, [facility] [place] [id number] [place] [address] 55609- 4315 Dec, Major depressive disorder, recurrent episode, unspecified severity F33.9 and Generalized anxiety disorder F41.1 [facility] [place] [id number] [place] [address] 70193- 9547 Dec, Back pain M54.9 [facility] [place] [id number] [place] [address] 00743- 8329 17 Dec, 2016 Eustachian tube dysfunction, right H69.81 and Arthritis M19.90 [facility] [place] [id number] [place] [address] 19624- 2146 Dec, [facility] [id number] [place] [address] 35353- 5919 Dec, [facility] [id number] [place] [address] 73902- 2400 07 Dec, 2016 Major depressive disorder, recurrent episode, unspecified severity F33.9 [place] [id number] [place] [address] 94719- 9999 Oct, [facility] [id number] [place] [address] 64347 -6874 Oct, Acute non-recurrent pansinusitis J01.40 and Sore throat J02.9 [facility] [id number] [place] [address] 75065- 8276 Oct, Major depressive disorder, recurrent episode, unspecified severity F33.9 [facility] [id number] [place] [address] 24111- 3674 Oct, Major depressive disorder, recurrent episode, unspecified severity F33.9 and Generalized anxiety disorder F41.1 [place] [address] 18165- 5354 Sep, [place] [address] 01286- 4607 Sep, Major depressive disorder, recurrent episode, unspecified severity F33.9 [place] [address] 38706- 0983 Sep, Major depressive disorder, recurrent episode, unspecified severity F33.9 [facility] [id number] [place] [address] 96506 -5030 Sep, Sore throat J02.9 [place] [id number] [place] [address] 86993- 0739 15 Sep, 2016 Generalized anxiety disorder F41.1 ; Major depressive disorder, recurrent episode, unspecified severity F33.9 and Attention-deficit hyperactivity disorder, predominantly hyperactive type F90.1 [facility] [place] [id number] [place] [address] 89442- 1530 08 Sep, 2016 Major depressive disorder, recurrent episode, unspecified severity F33.9 and Generalized anxiety disorder F41.1 [place] [id number] [place] [address] 56248- 9788 07 Sep, 2016 Psoriatic arthritis L40.50 [place] [id number] [place] [address] 66419- 9451 02 Sep, 2016 Diabetes E11.9 ; senior care 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 ; Back pain M54.9 and Encounter for immunization Z23 [place] [address] [address]- 7059 Aug, [facility] [id number] [place] [address] 45032- 9934 Aug, [facility] [id number] [place] [address] 31365- 4779 Jul, Major depressive disorder, recurrent episode, unspecified severity F33.9 ; Attention-deficit hyperactivity disorder, predominantly hyperactive type F90.1 and Generalized anxiety disorder F41.1 [facility] [address] [place] [address] 92165- 9982 Jul, [facility] [id number] [place] [address] 15979- 6518 22 Jul, 2016 Major depressive disorder, recurrent, in partial remission F33.41 and Generalized anxiety disorder F41.1 [facility] [id number] [place] [address] 81435- 6664 19 Jul, 2016 [facility] [address] [place] [address] 33704- 4030 19 Jul, 2016 [facility] [id number] [place] [address] 87622- 1435 Jul, [facility] [address] [address]- 4905 Jul, [facility] [id number] [place] [address] 85189- 2611 12 Jul, 2016 Diabetes E11.9 [facility] [address] [address]- 2576 May, [facility] [id number] [place] [address] 20778- 4277 May, [facility] [address] [address]- 9397 May, [facility] [id number] [place] [address] 52003- 4459 May, Major depressive disorder, recurrent episode, unspecified severity F33.9 ; Generalized anxiety disorder F41.1 and Attention-deficit hyperactivity disorder, predominantly hyperactive type F90.1 [place] [id number] [place] [address] 01340- 6596 May, [facility] [address] [address]- 8896 May, Diabetes E11.9 [facility] [id number] [place] [address] 24190- 9377 May, [facility] [place] [id number] [place] [address] 61245- 1404 May, [facility] [address] [place] [id number] May, Diabetes E11.9 ; Generalized anxiety disorder F41.1 and Nausea R11.0 [place] [id number] [place] [address] 38985- 9190 May, Psoriatic arthritis L40.50 and Candidiasis of female genitalia B37.3 [place] [id number] [place] [address] 30017- 2518 May, [place] [id number] [place] [address] 28135- 9483 Apr, [place] [address] [address]- 1919 Apr, [place] [id number] [place] [address] 49931- 3483 Apr, [facility] [address] [address]- 3935 Apr, Generalized anxiety disorder F41.1 ; Major depressive disorder, recurrent episode, unspecified severity F33.9 and Attention-deficit hyperactivity disorder, predominantly hyperactive type F90.1 [facility] [address] [address]- 4140 Apr, [place] [id number] [address]- 7970 Apr, [facility] [id number] [place] [address] 12024- 3795 Apr, [facility] [id number] [place] [address] 79840- 2255 Apr, [facility] [id number] [place] [address] 96017- 1099 Apr, [facility] [id number] [place] [address] 81822- 3848 Mar, Attention-deficit hyperactivity disorder, predominantly hyperactive type F90.1 [place] [id number] [place] [address] 63457- 2009 Mar, [facility] [id number] [place] [address] 76527- 3021 Mar, [facility] [id number] [place] [address] 01232- 4498 Mar, Major depressive disorder, recurrent episode, unspecified severity F33.9 and Generalized anxiety disorder F41.1 [facility] [id number] [place] [address] 16182- 4108 February, Diabetes E11.9 [facility] [id number] [place] [address] 39631 -9872 February, OME (otitis media with effusion), bilateral H65.93 [facility] [id number] [place] [address] 97012- 3442 February, Back pain M54.9 [facility] [id number] [place] [address] 29854- 1088 February, [facility] [id number] [place] [address] 67943- 1130 February, Nausea R11.0 [facility] [id number] [place] [address] 46771- 5645 February, [facility] [id number] [place] [address] 58072- 2676 February, Pre-op evaluation Z01.818 ; Type 2 diabetes mellitus with hyperglycemia E11.65 and senior care 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 [facility] [id number] [place] [address] 42015- 1912 February, [facility] [address] 48475 -0411 February, Right otitis externa H60.91 [place] [address] 21156- 9607 Jan, [place] [address] 73508- 2358 Jan, Psoriatic arthritis L40.50 and Arthralgia, unspecified joint M25.50 [place] [address] 78415- 6507 Jan, Major depressive disorder, recurrent episode, unspecified severity F33.9 ; Generalized anxiety disorder F41.1 and Attention-deficit hyperactivity disorder, unspecified type F90.9 [facility] [id number] [place] [address] 78783- 9205 Jan, [facility] [id number] [place] [address] 56699- 1817 Jan, [facility] [id number] [place] [address] 39738- 6262 Jan, Major depressive disorder, recurrent episode, unspecified severity F33.9 and Generalized anxiety disorder F41.1 [facility] [address] 65063- 6849 Jan, [facility] [id number] [place] [address] 51974- 8504 Dec, Hypertension I10 and Arthritis M19.90 [facility] [address] 81916- 5113 Dec, [facility] [address] [address] 9137 Dec, [facility] [id number] [place] [address] 85987- 9039 Dec, [facility] [address] [address]- 5228 Dec, [facility] [id number] [place] [address] 59102- 1957 Dec, [facility] [id number] [place] [address] 67088- 4868 Dec, Major depressive disorder, recurrent episode, unspecified severity F33.9 and Generalized anxiety disorder F41.1 [facility] [id number] [place] [address] 57780- 0830 Dec, Diabetes E11.9 ; Back pain M54.9 ; Thrush B37.0 and Hypertension I10 [facility] [address] [address]- 7149 Dec, Major depressive disorder, recurrent episode, unspecified severity F33.9 and Generalized anxiety disorder F41.1 [facility] [address] [address] 0[address] 04 Dec, 2015 Major depressive disorder, recurrent episode, in partial or unspecified remission 296.35 ; Major depressive disorder, recurrent episode, unspecified severity F33.9 and Generalized anxiety disorder 300.02 [facility] [address] [address] 3000 Dec, [facility] [id number] [place] [address] 90933- 0498 Oct, [facility] [address] [address]- 3443 Oct, [facility] [id number] [place] [address] 15314- 6627 Oct, [facility] [id number] [place] [address] 04831- 1563 Oct, [facility] [id number] [place] [address] 16197- 9853 Oct, Major depressive disorder, recurrent, moderate F33.1 and Attention-deficit hyperactivity disorder, unspecified type F90.9 [facility] [address] 46473- 2338 Oct, senior care (current) use of opiate analgesic Z79.891 [facility] [id number] [place] [address] 44569- 7063 Oct, [facility] [id number] [place] [address] 03021- 5204 Oct, [facility] [id number] [place] [address] 14580 -9607 Sep, URI (upper respiratory infection) J06.9 ; Psoriasis L40.9 ; Cough R05 and Tobacco abuse Z72.0 [facility] [id number] [place] [address] 01857- 4596 Sep, Major depressive disorder, recurrent episode, in partial or unspecified remission 296.35 ; Generalized anxiety disorder 300.02 and ADHD, 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 [facility] [id number] [place] [address] 52515 -8234 Sep, Acute sinusitis, unspecified J01.90 [facility] [id number] [place] [address] 17945- 5313 Sep, [facility] [id number] [place] [address] 15791- 0369 Sep, Major depressive disorder, recurrent, moderate F33.1 ; Generalized anxiety disorder F41.1 and Attention-deficit hyperactivity disorder , combined type F90.2 [facility] [id number] [place] [address] 57200- 3372 Sep, [facility] [address] [address]- 0913 Aug, [facility] [id number] [place] [address] 89452- 4922 Aug, [facility] [id number] [place] [address] 63758- 9553 Aug, Diabetes E11.9 and Anxiety F41.9 [facility] [id number] [place] [address] 83853- 5801 Aug, Major depressive disorder, recurrent episode, unspecified severity F33.9 and Generalized anxiety disorder F41.1 [facility] [id number] [place] [address] 78959- 3830 Aug, [facility] [id number] [place] [address] 95858- 3935 Jul, [facility] [id number] [place] [address] 94278- 1500 Jul, [facility] [id number] [place] [address] 22792- 1309 Jul, [facility] [id number] [place] [address] 72690- 3853 Jul, [facility] [address] [address]- 9389 Jul, Major depressive disorder, recurrent episode, in partial or unspecified remission 296.35 ; Generalized anxiety disorder 300.02 and ADHD, 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 [facility] [address] [address]- 3211 10 Jul, 2015 Major depressive disorder, recurrent episode, in partial or unspecified remission 296.35 ; Generalized anxiety disorder 300.02 and ADHD, 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 [facility] [address] [address]- 1862 04 Jul, 2015 [facility] [id number] [place] [address] 71450- 7147 May, [facility] [address] [address]- 7552 May, [facility] [id number] [place] [address] 59592- 7196 May, DM w/o complication type II 250.00 ; Dyspepsia 536.8 and PAD (peripheral artery disease) 443.9 [facility] [id number] [place] [address] 95225- 4108 May, Major depressive disorder, recurrent episode, moderate 296.32 and Generalized anxiety disorder 300.02 [facility] [id number] [place] [address] 27606- 0683 May, [facility] [id number] [place] [address] 97889- 8468 May, Major depressive disorder, recurrent episode, moderate 296.32 and Generalized anxiety disorder 300.02 [facility] [id number] [place] [address] 11277- 3832 May, [facility] [id number] [place] [address] 16299- 0444 Apr, [facility] [id number] [place] [address] 02619- 0598 Apr, Major depressive disorder, recurrent episode, moderate 296.32 and Generalized anxiety disorder 300.02 [facility] [id number] [place] [address] 53124- 7508 Apr, [facility] [id number] [place] [address] 86692- 9136 Apr, [facility] [id number] [place] [address] 09660- 9977 Apr, Generalized anxiety disorder 300.02 ; ADHD, 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 and Depression, major, recurrent, moderate 296.32 [facility] [id number] [place] [address] 46180- 0625 Apr, Major depressive disorder, recurrent episode, moderate 296.32 and Generalized anxiety disorder 300.02 [facility] [id number] [place] [address] 68118- 2362 Apr, [facility] [id number] [place] [address] 511140- 8255 Apr, [facility] [id number] [place] [address] 66665- 9869 Mar, [facility] [id number] [place] [address] 99235- 0518 Mar, Major depressive disorder, recurrent episode, moderate 296.32 and Generalized anxiety disorder 300.02 [facility] [id number] [place] [address] 71632- 8894 Mar, ADHD, 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 ; Major depressive disorder, recurrent episode, severe, without mention of psychotic behavior 296.33 and Generalized anxiety disorder 300.02 [facility] [id number] [place] [address] 51279- 5211 February, Major depressive disorder, recurrent episode, moderate 296.32 and Generalized anxiety disorder 300.02 [facility] [id number] [place] [address] 79048- 3005 February, [facility] [id number] [place] [address] 99204- 1994 February, [facility] [id number] [place] [address] 65692- 4422 February, [facility] [id number] [place] [address] 10636- 3553 February, [facility] [id number] [place] [address] 74712- 8794 February, DM w/o complication type II 250.00 ; Impacted cerumen 380.4 ; Essential hypertension, benign 401.1 and Irritable colon 564.1 [facility] [id number] [place] [address] 50765- 8405 February, [facility] [place] [facility] [address] [id number] [place] [address]- 2360 February, [facility] [place] [facility] [address] [id number] [place] [address]- 1156 Jan, [facility] [place] [facility] [address] [id number] [place] [address]- 6193 30 Dec, 2014 [facility] [place] [facility] [address] [id number] [place] [address]- 0066 30 Dec, 2014 [facility] [place] [facility] [address] [id number] [place] [address]- 2583 Dec, [facility] [place] [facility] [address] [id number] [place] [address]- 9638 Dec, [facility] [place] [facility] [address] [facility] [id number] [place] [address]- 9865 16 Dec, 2014 [facility] [place] [facility] [address] [id number] [place] [address]- 1965 16 Dec, 2014 [facility] [place] [facility] [address] [id number] [place] [address]- 6654 Dec, [facility] [place] [facility] [address] [id number] [place] [address]- 3813 Dec, [facility] [place] [facility] [address] [id number] [place] [address]- 5604 Dec, [facility] [place] [facility] [address] [id number] [place] [address]- 6082 Dec, [facility] [place] [facility] [address] [id number] [place] [address]- 1541 Dec, [facility] [place] [facility] [address] [id number] [place] [address]- 1916 Dec, [facility] [place] [facility] [address] [facility] [id number] [place] [address]- 3676 17 Dec, 2014 [facility] [place] [facility] [address] [id number] [place] [address]- 0074 17 Dec, 2014 [facility] [place] [facility] [address] [id number] [place] [address]- 7218 Dec, [facility] [place] [facility] [address] [id number] [place] [address]- 4306 Dec, [facility] [place] [facility] [address] [id number] [place] [address]- 9672 Oct, [facility] [place] [facility] [address] [id number] [place] [address]- 3964 Oct, [facility] [place] [facility] [address] [id number] [place] [address]- 3374 Oct, [facility] [place] [facility] [address] [id number] [place] [address]- 6621 Oct, [facility] [place] [facility] [address] [id number] [place] [address]- 7701 Oct, [facility] [place] [facility] [address] [id number] [place] [address]- 7901 Oct, [facility] [place] [facility] [address] [id number] [place] [address]- 1949 Oct, [facility] [place] [facility] [address] [id number] [place] [address]- 0858 Oct, [facility] [place] [facility] [address] [id number] [place] [address]- 7285 Oct, [facility] [place] [facility] [address] [id number] [place] [address]- 6009 Oct, [facility] [place] [facility] [address] [id number] [place] [address]- 7389 Oct, [facility] [place] [facility] [address] [id number] [place] [address]- 0431 Sep, [facility] [place] [facility] [address] [id number] [address]- 5222 Sep, [facility] [place] [facility] [address] [id number] [place] [address]- 1862 Sep, [facility] [place] [facility] [address] [id number] [place] 2035 Sep, [facility] [place] [facility] [address] [id number] [place] [address]- 7246 Sep, [facility] [place] [facility] [address] [id number] [place] [address]- 8092 Sep, [facility] [place] [facility] [address] [id number] [place] [address]- 2353 Sep, [facility] [place] [facility] [address] [id number] [place] [address]- 2409 Sep, [facility] [place] [facility] [address] [id number] [place] [address]- 4141 Aug, [facility] [place] [facility] [address] [id number] [place] [address]- 3312 Aug, [facility] [place] [facility] [address] [id number] [place] [address]- 7500 Aug, [facility] [place] [facility] [address] [id number] [place] [address]- 1764 Aug, [facility] [place] [facility] [address] [id number] [place] [address]- 1513 Aug, [facility] [place] [facility] [address] [id number] [place] [address]- 4298 Aug, [facility] [place] [facility] [address] [id number] [place] [address]- 9505 Aug, [facility] [place] [facility] [address] [id number] [place] [address]- 5012 Aug, [facility] [place] [facility] [address] [id number] [place] [address]- 9483 Aug, [facility] [place] [facility] [address] [id number] [place] [address]- 9538 Aug, [facility] [place] [facility] [address] [id number] [place] [address]- 1363 Aug, [facility] [place] [facility] [address] [id number] [place] [address]- 8018 Aug, [facility] [place] [facility] [address] [id number] [place] [address]- 3160 Aug, [facility] [place] [facility] [address] [id number] [place] [address]- 4347 Aug, [facility] [place] [facility] [address] [id number] [place] [address]- 5288 Jul, [facility] [place] [facility] [address] [id number] [place] [address]- 8234 Jul, [facility] [place] [facility] [address] [id number] [place] [address]- 3175 Jul, [facility] [place] [facility] [address] [id number] [place] [address]- 5550 Jul, [facility] [place] [facility] [address] [id number] [place] [address]- 9578 Jul, [facility] [place] [facility] [address] [facility] [id number] [place] [address]- 3923 Jul, [facility] [place] [facility] [address] [id number] [place] [address]- 9241 Jul, [facility] [place] [facility] [address] [id number] [place] [address]- 2549 Jul, [facility] [place] [facility] [address] [id number] [place] [address]- 2764 Jul, [facility] [place] [facility] [address] [id number] [place] [address]- 6736 Jul, [facility] [place] [facility] [address] [id number] [place] [address]- 6960 Jul, [facility] [place] [facility] [address] [id number] [place] [address]- 8325 Jul, [facility] [place] [facility] [address] [id number] [place] [address]- 8475 Jul, [facility] [place] [facility] [address] [id number] [place] [address]- 4121 Jul, [facility] [place] [facility] [address] [id number] [place] [address]- 7833 May, [facility] [place] [facility] [address] [id number] [place] [address]- 1914 May, [facility] [place] [facility] [address] [id number] [place] [address]- 1198 May, [facility] [place] [facility] [address] [id number] [place] [address]- 3331 May, [facility] [place] [facility] [address] [id number] [place] [address]- 7521 May, [facility] [place] [facility] [address] [id number] [place] [address]- 4672 May, [facility] [place] [facility] [address] [id number] [place] [address]- 6008 May, [facility] [place] [facility] [address] [id number] [place] [address]- 0027 May, [facility] [place] [facility] [address] [id number] [place] [address]- 7772 May, [facility] [place] [facility] [address] [id number] [place] [address]- 8989 May, [facility] [place] [facility] [address] [id number] [place] [address]- 4460 May, [facility] [place] [facility] [address] [id number] [place] [address]- 9503 May, [facility] [place] [facility] [address] [id number] [place] [address]- 6449 Apr, [facility] [place] [facility] [address] [id number] [place] [address]- 5266 Apr, [facility] [place] [facility] [address] [id number] [place] [address]- 1112 Apr, [facility] [place] [facility] [address] [id number] [place] [address]- 2194 Apr, [facility] [place] [facility] [address] [id number] [place] [address]- 3341 Apr, [facility] [place] [facility] [address] [id number] [place] [address]- 9717 Apr, [facility] [place] [facility] [address] [id number] [place] [address]- 5759 Mar, [facility] [place] [facility] [address] [id number] [place] [address]- 5257 Mar, [facility] [place] [facility] [address] [id number] [place] [address]- 7698 Mar, [facility] [place] [facility] [address] [id number] [place] [address]- 8636 Mar, [facility] [place] [facility] [address] [id number] [place] [address]- 9841 Mar, [facility] [place] [facility] [address] [id number] [place] [address]- 2549 Mar, [facility] [place] [facility] [address] [id number] [place] [address]- 0860 Mar, [facility] [place] [facility] [address] [id number] [place] [address]- 6223 Mar, [facility] [place] [facility] [address] [id number] [place] [address]- 7417 Mar, [facility] [place] [facility] [address] [id number] [place] [address]- 9685 Mar, [facility] [place] [facility] [address] [id number] [place] [address]- 5026 Mar, [facility] [place] [facility] [address] [id number] [place] 1012 Mar, [facility] [place] [facility] [address] [id number] [place] [address]- 6218 Mar, [facility] [place] [facility] [address] [id number] [place] [address]- 5435 February, [facility] [place] [facility] [address] [id number] [place] [address]- 7775 February, [facility] [place] [facility] [address] [id number] [place] [address]- 0579 February, [facility] [place] [facility] [address] [id number] [place] [address]- 6908 February, [facility] [place] [facility] [address] [id number] [place] [address]- 2274 February, [facility] [place] [facility] [address] [id number] [place] [address]- 6595 February, [facility] [place] [facility] [address] [id number] [place] [address]- 0284 February, [facility] [place] [facility] [address] [id number] [place] [address]- 5066 February, [facility] [place] [facility] [address] [id number] [place] [address]- 7187 February, [facility] [place] [facility] [address] [id number] [place] [address]- 4336 February, [facility] [place] [facility] [address] [id number] [place] [address] February, [facility] [place] [facility] [address] [id number] [place] [address] February, [facility] [place] [facility] [address] [id number] [place] [address] February, [facility] [place] [facility] [address] [id number] [place] [address] February, [facility] [place] [facility] [address] [id number] [place] [address] Jan, [facility] [place] [facility] [address] [id number] [place] [address] Jan, [facility] [place] [facility] [address] [id number] [place] [address] Jan, [facility] [place] [facility] [address] [id number] [place] [address] Jan, [facility] [place] [facility] [address] [id number] [place] [address] Jan, [facility] [place] [facility] [address] [id number] [place] [address] Jan, [facility] [place] [facility] [address] [id number] [place] [address] Jan, [facility] [place] [facility] [address] [id number] [place] [address] Jan, [facility] [place] [facility] [address] [id number] [place] [address] Jan, [facility] [place] [facility] [address] [id number] [place] [address] Dec, [facility] [place] [facility] [address] [id number] [place] [address] Dec, [facility] [place] [facility] [address] [id number] [place] [address] Dec, [facility] [place] [facility] [address] [id number] [place] [address] Dec, [facility] [place] [facility] [address] [id number] [place] [address] Dec, [facility] [place] [facility] [address] [id number] [place] [address] Dec, [facility] [place] [facility] [address] [id number] [place] [address] Dec, [facility] [place] [facility] [address] [id number] [place] [address] Dec, [facility] [place] [facility] [address] [id number] [place] [address] Dec, [facility] [place] [facility] [address] [id number] [place] [address] Dec, [facility] [place] [facility] [address] [id number] [place] [address]- 2007 14 Dec, 2013 [facility] [place] [facility] [address] [id number] [place] [address] Dec, [facility] [place] [facility] [address] [id number] [place] [address] Dec, [facility] [place] [facility] [address] [id number] [place] [address] Dec, [facility] [place] [facility] [address] [id number] [place] [address] Dec, [facility] [place] [facility] [address] [id number] [place] [address] Dec, [facility] [place] [facility] [address] [id number] [place] [address] Dec, [facility] [place] [facility] [address] [id number] [place] [address] Oct, [facility] [place] [facility] [address] [id number] [place] [address] Oct, [facility] [place] [facility] [address] [id number] [place] [address] Oct, [facility] [place] [facility] [address] [id number] [place] [address] Oct, [facility] [address] [id number] [place] [address] Oct, [facility] [place] [facility] [address] [id number] [place] [address] Oct, [facility] [place] [facility] [address] [id number] [place] [address] Oct, [facility] [place] [facility] [address] [id number] [place] [address] Oct, [facility] [place] [facility] [address] [id number] [place] [address] Oct, [facility] [place] [facility] [address] [id number] [place] [address] Oct, [facility] [place] [facility] [address] [id number] [place] [address] Oct, [facility] [place] [facility] [address] [id number] [place] [address] Oct, [facility] [place] [facility] [address] [id number] [place] [address] Oct, [facility] [place] [facility] [address] [id number] [place] [address] Oct, [facility] [place] [facility] [address] [id number] [place] [address] Sep, [facility] [place] [facility] [address] [id number] [place] [address] Sep, [facility] [place] [facility] [address] [id number] [place] [address] Sep, [facility] [place] [facility] [address] [id number] [place] [address]- [address] Sep, [facility] [place] [facility] [address] [id number] [place] [address] Sep, [facility] [place] [facility] [address] [id number] [place] [address] 27 Sep, 2013 [facility] [address] [id number] [place] [address] 27 Sep, 2013 [facility] [place] [facility] [address] [id number] [place] [address] 1126 27 Sep, 2013 [facility] [address] [id number] [place] [address] 1409 27 Sep, 2013 [facility] [place] [facility] [address] [id number] [place] [address] 5470 27 Sep, 2013 [facility] [address] [id number] [place] [address] 16 Sep, 2013 [facility] [place] [facility] [address] [id number] [place] [address] 4512 16 Sep, 2013 [facility] [address] [id number] [place] [address]- 2017 13 Sep, 2013 [facility] [place] [facility] [address] [id number] [place] [address] 0766 13 Sep, 2013 [facility] [place] [facility] [address] [id number] [place] [address] 1307 10 Sep, 2013 [facility] [place] [facility] [address] [facility] [id number] [place] [address] 8997 10 Sep, 2013 [facility] [place] [facility] [address] [id number] [place] [address] 8514 02 Sep, 2013 [facility] [place] [facility] [address] [id number] [place] [address] 2543 02 Sep, 2013 [facility] [place] [facility] [address] [id number] [place] [address] 4335 15 Aug, 2013 [facility] [place] [facility] [address] [id number] [place] [address] 4881 15 Aug, 2013 [facility] [place] [facility] [address] [facility] [id number] [place] [address]- 1594 16 Jul, 2013 [facility] [place] [facility] [address] [id number] [place] [address]- 9851 16 Jul, 2012 [facility] [place] [facility] [address] [id number] [place] [address]- 4542 14 Jul, 2012 [facility] [place] [facility] [address] [id number] [place] [address]- 4362 14 Jul, 2012 [facility] [place] [facility] [address] [id number] [place] [address]- 2018 08 Jul, 2012 [facility] [place] [facility] [address] [id number] [place] [address]- 1456 20 Jul, 2012 [facility] [place] [facility] [address] [id number] [place] [address]- 8538 19 Jul, 2012 [facility] [place] [facility] [address] [id number] [place] [address]- 1011 13 Jul, 2012 [facility] [place] [facility] [address] [id number] [place] [address]- 1443 08 Jul, 2012 [facility] [place] [facility] [address] [id number] [place] [address]- 1111 06 Jul, 2012 [facility] [place] [facility] [address] [id number] [place] [address]- 6276 06 Jul, 2012 [facility] [place] [facility] [address] [id number] [place] [address]- 0905 06 Jul, 2012 [facility] [place] [facility] [address] [id number] [place] [address]- 2543 03 Jul, 2012 [facility] [place] [facility] [address] [id number] [place] [address] 2540 29 May, 2013 [facility] [place] [facility] [address] [id number] [place] [address]- 2543 26 May, 2012 [facility] [place] [facility] [address] [id number] [place] [address] 3855 May, 2012 [facility] [place] [facility] [address] [id number] [place] [address] 1687 May, [facility] [place] [facility] [address] [id number] [place] [address] 3939 Apr, [facility] [place] [facility] [address] [id number] [place] [address]- 1042 Apr, [facility] [place] [facility] [address] [id number] [place] [address]- 4291 Apr, [facility] [place] [facility] [address] [id number] [place] [address] 0642 Mar, [facility] [place] [facility] [address] [id number] [place] [address]- 1452 Mar, [facility] [place] [facility] [address] [id number] [place] [address]- 9975 Mar, [facility] [place] [facility] [address] [id number] [place] [address] 6165 Mar, [facility] [place] [facility] [address] [id number] [place] [address]- 9698 February, [facility] [place] [facility] [address] [id number] [place] [address] 4919 February, [facility] [place] [facility] [address] [id number] [place] [address] 0405 Jan, [facility] [place] [facility] [address] [id number] [place] [address] 0654 Dec, [facility] [place] [facility] [address] [id number] [address] 3678 Dec, [facility] [place] [facility] [address] [id number] [place] [address]- 4789 Dec, [facility] [place] [facility] [address] [id number] [place] [address]- 6462 Dec, [facility] [place] [facility] [address] [id number] [place] [address] 2331 Dec, [facility] [place] [facility] [address] [id number] [place] [address]- 9145 27 Dec, 2012 [facility] [address] [id number] [place] [address]- 6646 26 Dec, 2012 [facility] [place] [facility] [address] [id number] [place] [address]- 5996 25 Dec, 2012 [facility] [address] [id number] [place] [address]- 6516 Dec, [facility] [address] [id number] [place] [address] 2541 15 Dec, 2012 [facility] [address] [id number] [place] [address]- 3066 14 Dec, 2012 [facility] [address] [id number] [place] [address]- 9445 Oct, [facility] [address] [id number] [place] [address] 6398 Oct, [facility] [address] [id number] [place] [address] 7004 Oct, [facility] [address] [facility] [id number] [place] [address]- 3062 Oct, [facility] [address] [facility] [id number] [place] [address] 1824 Sep, [facility] [address] [id number] [place] [address]- 2546 Sep, [facility] [address] [id number] [place] [address] 2543 Sep, [facility] [place] [facility] [address] [id number] [place] [address] 2546 Sep, [facility] [place] [facility] [address] [id number] [place] [address] 2546 03 Sep, 2012 [facility] [place] [facility] [address] [id number] [place] [address] 4458 Sep, [facility] [place] [facility] [address] [id number] [place] [address]- 9054 Aug, [facility] [place] [facility] [address] [id number] [place] [address]- 2006 Aug, [facility] [place] [facility] [address] [facility] [id number] [place] [address]- 8244 Aug, [facility] [place] [facility] [address] [id number] [place] [address]- 7147 Aug, [facility] [place] [facility] [address] [id number] [place] [address]- 4309 Aug, [facility] [place] [facility] [address] [facility] [id number] [place] [address]- 5517 Aug, [facility] [place] [facility] [address] [facility] [id number] [place] [address]- 1447 Jul, [facility] [place] [facility] [address] [id number] [place] [address] 5823 Jul, [facility] [place] [facility] [address] [facility] [id number] [place] [address]- 2545 Jul, [facility] [place] [facility] [address] [facility] [id number] [place] [address]- 9192 Jul, [facility] [place] [facility] [address] [facility] [id number] [place] [address]- 5496 Jul, [facility] [place] [facility] [address] [id number] [place] [address]- 7324 Jul, [facility] [place] [facility] [address] [id number] [place] [address]- 7684 Jul, [facility] [place] [facility] [address] [facility] [id number] [place] [address]- 8228 Jul, [facility] [place] [facility] [address] [facility] [id number] [place] [address]- 2306 20 Jul, 2012 [facility] [place] [facility] [address] [id number] [place] [address]- 1733 Jul, [facility] [place] [facility] [address] [id number] [place] [address]- 1236 Jul, [facility] [place] [facility] [address] [id number] [place] [address] 2546 May, [facility] [place] [facility] [address] [id number] [place] [address]- 8240 May, [facility] [place] [facility] [address] [id number] [place] [address] 2547 May, [facility] [place] [facility] [address] [id number] [place] [address]- 6700 May, [facility] [place] [facility] [address] [id number] [place] [address]- 6951 Apr, [facility] [place] [facility] [address] [id number] [place] [address]- 8321 Apr, [facility] [place] [facility] [address] [id number] [place] [address]- 5237 Apr, [facility] [place] [facility] [address] [id number] [place] [address]- 1013 Apr, [facility] [place] [facility] [address] [id number] [place] [address]- 2159 Apr, [facility] [place] [facility] [address] [id number] [place] [address] 2540 Apr, [facility] [place] [facility] [address] [id number] [place] [address]- 2540 Apr, [facility] [place] [facility] [address] [id number] [place] [address]- 1526 Apr, [facility] [place] [facility] [address] [id number] [place] [address]- 2547 Mar, [facility] [place] [facility] [address] [id number] [place] [address]- 7638 Mar, [facility] [place] [facility] [address] [id number] [place] [address]- 3551 20 Mar, 2012 [facility] [place] [facility] [address] [id number] [place] [address]- 3593 15 Mar, 2012 [facility] [place] [facility] [address] [id number] [place] [address]- 7478 14 Mar, 2012 [facility] [place] [facility] [address] [id number] [place] [address]- 7050 12 Mar, 2012 [facility] [place] [facility] [address] [id number] [place] [address]- 4424 12 Mar, 2012 [facility] [place] [facility] [address] [id number] [place] [address]- 2024 11 Mar, 2012 [facility] [place] [facility] [address] [id number] [place] [address]- 3472 08 Mar, 2012 [facility] [place] [facility] [address] [id number] [place] [address]- 2505 30 Feb, 2012 [facility] [place] [facility] [address] [id number] [place] [address]- 1800 February, [facility] [place] [facility] [address] [id number] [place] [address]- 5032 25 Feb, 2012 [facility] [place] [facility] [address] [id number] [place] [address]- 4358 February, [facility] [place] [facility] [address] [id number] [place] [address]- 9512 13 Jan, 2012 [facility] [place] [facility] [address] [id number] [place] [address]- 2058 03 Jan, 2012 [facility] [place] [facility] [address] [id number] [place] [address]- 8566 28 Dec, 2011 [facility] [place] [facility] [address] [id number] [place] [address]- 4123 15 Dec, 2011 [facility] [place] [facility] [address] [id number] [place] [address]- 9789 14 Dec, 2011 [facility] [address] [id number] [place] [address]- 4046 07 Dec, 2011 [facility] [place] [facility] [address] [id number] [place] [address]- 3926 28 Dec, 2011 [facility] [place] [facility] [address] [id number] [place] [address]- 2196 Dec, [facility] [place] [facility] [address] [id number] [place] [address]- 0136 Dec, [facility] [place] [facility] [address] [id number] [place] [address]- 6676 Dec, [facility] [place] [facility] [address] [id number] [place] [address]- 6736 Dec, [facility] [place] [facility] [address] [id number] [place] [address]- 1214 Dec, [facility] [place] [facility] [address] [id number] [place] [address]- 8734 07 Dec, 2011 [facility] [place] [facility] [address] [id number] [place] [address]- 8212 Dec, [facility] [place] [facility] [address] [id number] [place] [address]- 0565 Oct, [facility] [place] [facility] [address] [id number] [place] [address]- 5496 Oct, [facility] [place] [facility] [address] [id number] [place] [address]- 8183 Oct, [facility] [place] [facility] [address] [id number] [place] [address]- 7329 Oct, [facility] [place] [facility] [address] [id number] [place] [address]- 6993 Oct, [facility] [place] [facility] [address] [id number] [place] [address]- 8127 Oct, [facility] [place] [facility] [address] [id number] [place] [address]- 6177 16 Oct, 2011 [facility] [address] [id number] [place] [address]041 Oct, [facility] [address] [id number] [place] [address]- 6455 Sep, [facility] [place] [facility] [address] [id number] [place] [address]- 2825 Sep, [facility] [address] [id number] [place] [address]- 5423 Sep, [facility] [place] [facility] [address] [id number] [place] [address]- 6991 Aug, [facility] [address] [id number] [place] [address]- 4071 Aug, [facility] [address] [id number] [place] [address]- 8762 Aug, [facility] [address] [id number] [place] [address]- 8924 Aug, [facility] [address] [id number] [place] [address]- 9304 Aug, [facility] [place] [facility] [address] [id number] [place] [address]- 7580 Jul, [facility] [place] [facility] [address] [id number] [place] [address]- 7768 Jul, [facility] [place] [facility] [address] [id number] [place] [address]- 8669 May, [facility] [place] [facility] [address] [id number] [place] [address]- 4618 Dec, [facility] [place] [facility] [address] [id number] [place] [address]- 9287 Oct, [facility] [place] [facility] [address] [id number] [place] [address]- 3252 Sep, [facility] [address] [facility] [id number] [place] [address]- 0763 Sep, [facility] [address] [facility] [id number] [place] [address]- 4671 Sep, IMMUNIZATIONS No Known Immunizations SOCIAL HISTORY Never Assessed REASON FOR VISIT Med Refill PLAN OF CARE VITAL SIGNS MEDICATIONS Medication Instructions Dosage Frequency Start Date End Date Duration Status Lisinopril 10 mg Orally Once a day 1 tablet 24h 30 Active RESULTS No Results PROCEDURES No Known [...] veinous reflux Surgical History Left Knee SOA-Dr. Melendrez-[facility] 05/19/16 Surgical History Colonoscopy- Dr Castanon 01/26/2017 Hospitalization History surgeries Hospitalization History Left Knee SOA--Dr. Melendrez--[facility] Hospitalization History Septic shock, UTI-[facility] 07/27/17 Hospitalization History Multiple falls, hyperglycemia, sepsis 07/2017 Hospitalization History Alcoholism, depression, DM, Falls-[facility] 08/23/17 Hospitalization History COPD exacerbation-[facility] 11/25/17 Hospitalization History COPD exacerbation-[facility] 11/28/17
[2018-05-10 03:47] LABS: BASOPHILS % (AUTO) 0 % (0-10); EOSINOPHILS # (AUTO) 0.3 10^3/uL (0.0-0.3); EOSINOPHILS % (AUTO) 2 % (0-10); HEMATOCRIT 48 % (35-52); HEMOGLOBIN 16.9 G/DL (11.5-16.0); LYMPHOCYTES # (AUTO) 1.9 X 10^3 (1.0-4.0); LYMPHOCYTES % (AUTO) 14 % (12-44); MEAN CORPUSCULAR HEMOGLOBIN 29 PG (25-34); MEAN CORPUSCULAR HGB CONC 35 G/DL (32-36); MEAN CORPUSCULAR VOLUME 81 FL (80-99); MEAN PLATELET VOLUME 9.6 FL (7.4-10.4); MONOCYTES # (AUTO) 0.9 X 10^3 (0.0-1.0); MONOCYTES % (AUTO) 7 % (0-12); NEUTROPHILS # (AUTO) 10.6 X 10^3 (1.8-7.8); NEUTROPHILS % (AUTO) 77 % (42-75); PLATELET COUNT 179 10^3/uL (130-400); RED BLOOD COUNT 5.91 10^6/uL (4.35-5.85); WHITE BLOOD COUNT 13.8 10^3/uL (4.3-11.0)
--- OUTSIDE RECORDS SUMMARY | 2018-05-10 03:48 | XMS REPORT ---
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 Active 420065961 Problem Psoriatic arthritis L40.50 Active 842149512 Problem Psychophysiological insomnia F51.04 Active 41306349 Problem Other specified 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 Active 590234194 Problem Obesity (BMI 30-39.9) E66.9 Active 253346849 Problem Major depressive disorder, recurrent, moderate F33.1 Active 31906329 Problem Essential hypertension I10 Active 27087842 Problem Type 2 diabetes mellitus with hyperglycemia E11.65 Active 316993245935932 Problem Alcoholism F10.20 Active 7154766 Problem Frequent falls R29.6 Active 933485699 Problem Benzodiazepine abuse F13.10 Active 679925207 Problem PTSD (post-traumatic stress disorder) F43.10 Active 35391997 Problem Eating disorder F50.9 Active 24522277 Problem Attention-deficit hyperactivity disorder, combined type F90.2 Active 57682436 Problem COPD exacerbation J44.1 Active 182092447 Problem Anxiety F41.9 Active 29475118 Problem Decubitus ulcer of left buttock, stage 2 L89.322 Active 971001322 Problem BMI 40.0-44.9, adult Z68.41 Active 669857539 Problem Alcohol abuse F10.10 Active 87868886 Problem Pneumonia due to methicillin resistant Staphylococcus aureus, unspecified laterality, unspecified part of lung J15.212 Active 294317970973898 Problem Type 2 diabetes mellitus with unspecified complications E11.8 Active 97872795 Problem Attention-deficit hyperactivity disorder, predominantly hyperactive type F90.1 Active 285607052 Problem Type 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 Active 06833532 Problem Ulcer of right foot, unspecified ulcer stage L97.519 Active 62415986 Problem Attention deficit R41.840 Active 10662692 Problem Mental disorder, not otherwise specified F99 Active 61158005 Problem Insomnia due to other mental disorder F51.05 Active 83051967 ALLERGIES No Information ENCOUNTERS Encounter Location Date Diagnosis [facility] [id number] [place] [address] 18427- 3235 14 Mar, 2018 [facility] [address] 66154- [address] Jan, [facility] [address] 94014- 4058 Dec, Major depressive disorder, recurrent episode, unspecified severity F33.9 ; Generalized anxiety disorder F41.1 and Eating disorder F50.9 [facility] [id number] [place] [address] 08678- 3502 Dec, [facility] [address] 43172- 4870 Dec, [facility] [id number] [place] [address] 06372- 6695 Dec, [facility] [id number] [place] [address] 36743- 5181 Dec, Increased urinary frequency R35.0 ; Frequent falls R29.6 ; Decubitus ulcer of left buttock, stage 2 L89.322 ; Benzodiazepine abuse F13.10 ; BMI 40.0-44.9, adult Z68.41 and Yeast infection B37.9 [facility] [id number] [place] [address] 80894- 5528 Dec, [facility] [address] 75922- 1904 Dec, [facility] [id number] [address] 7555 Dec, Increased urinary frequency R35.0 [facility] [address], [place] [address] 0784 Dec, Increased urinary frequency R35.0 [facility] [address] [place] [address] 62800- 1694 Dec, Generalized anxiety disorder F41.1 ; Major depressive disorder, recurrent, moderate F33.1 and Psychophysiological insomnia F51.04 [facility] [address] [place] [address] 64601- 1969 08 Dec, 2017 BMI 40.0-44.9, adult Z68.41 ; Type 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 ; Pneumonia due to methicillin resistant Staphylococcus aureus, unspecified laterality, unspecified part of lung J15.212 and COPD exacerbation J44.1 [facility] [address], [place] [address] Dec, [facility] [id number] [place] [address] [id number] Dec, [facility] [id number] [place] [address] [id number] Oct, [facility] [address], [place] [address] Oct, Frequency of urination R35.0 ; Bronchitis J40 and BMI 40.0- 44.9, adult Z68.41 [facility] [id number] [id number] Oct, [facility] [address] [place] [address] 06740- 1273 Oct, [facility] [id number] [address]- 3986 Oct, BMI 40.0-44.9, adult Z68.41 ; Type 2 diabetes mellitus with hyperglycemia E11.65 ; Essential hypertension I10 ; Vaginal yeast infection B37.3 ; Anxiety F41.9 and Alcoholism F10.20 [facility] [id number] [place] [address] 99571- 2830 Oct, [facility] [id number] [place] [address] 86532- 5458 Oct, [facility] [address] 46977- 1433 Sep, [facility] [id number] [place] [address] 65496- 5555 Sep, Major depressive disorder, recurrent episode, unspecified severity F33.9 ; Generalized anxiety disorder F41.1 and Eating disorder F50.9 [facility] [id number] [place] [address] 07021- 6673 Sep, Major depressive disorder, recurrent, moderate F33.1 ; Type 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 ; Alcohol abuse F10.10 ; Obesity (BMI 30-39.9) E66.9 and Psychophysiological insomnia F51.04 [facility] [id number] [place] [address] 99700- 0097 Sep, Diabetes E11.9 and Generalized anxiety disorder F41.1 [facility] [id number] [place] [address] 78557- 7082 Sep, Major depressive disorder, recurrent episode, unspecified severity F33.9 ; Generalized anxiety disorder F41.1 and Eating disorder F50.9 [facility] [id number] [place] [address] 29892- 3936 Sep, [facility] [id number] [place] [address] 20622- 2802 Aug, [facility] [id number] [place] [address] 95602- 1139 Aug, Insomnia due to other mental disorder F51.05 ; Mental disorder, not otherwise specified F99 ; Attention deficit R41.840 ; Ulcer of right foot, unspecified ulcer stage L97.519 ; Cough R05 ; Diabetes E11.9 ; Sore in mouth K13.79 ; Generalized anxiety disorder F41.1 ; Major depressive disorder , recurrent episode, unspecified severity F33.9 and BMI 40.0-44.9, adult Z68.41 [facility] [address], [place] [address]- 6139 Aug, [facility] [id number] [place] [address] 30164- 8536 Aug, [facility] [address] [place] [address] 49111- 7154 Aug, [facility] [id number] [place] [address] 95392- 5590 Aug, [facility] [address] [place] [address] 24993- 5314 Aug, Diabetes E11.9 [facility] [address] [place] [id number] Aug, Falling R29.6 ; Alcohol abuse F10.10 ; Major depressive disorder, recurrent episode, unspecified severity F33.9 ; Hypertension I10 ; Type 2 diabetes mellitus with unspecified complications E11.8 and longterm 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 [place] [facility] [id number] [place] [address] [id number] Aug, [facility] [address] [place] [id number] Aug, Alcohol abuse F10.10 ; Major depressive disorder, recurrent episode, unspecified severity F33.9 ; Generalized anxiety disorder F41.1 ; 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 ; Psoriatic arthritis L40.50 and Diabetes E11.9 [place] [facility] [id number] [place] [address] [id number] Aug, [facility] [facility] [id number] [place] [address] [id number] Jul, [facility] [id number] [address] 3994 Jul, [facility] [id number] [place] [address] 35077- 9409 Jul, Generalized anxiety disorder F41.1 [facility] [address] [place] [address] 27806- 8872 Jul, [facility] [id number] [place] [address] 07881- 3102 Jul, [facility] [id number] [place] [address] 71191- 6112 Jul, Generalized anxiety disorder F41.1 ; Major depressive disorder, recurrent episode, unspecified severity F33.9 ; PTSD (post-traumatic stress disorder) F43.10 ; Eating disorder F50.9 and Attention-deficit hyperactivity disorder, predominantly hyperactive type F90.1 [facility] [id number] [place] [address] 49188- 0357 Jul, [facility] [address] [place] [address] 80810- 5754 Jul, [facility] [id number] [place] [address] 45803- 3959 Jul, longterm 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 ; Type 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 ; Urinary tract infection, site not specified N39.0 ; Sepsis, unspecified organism A41.9 and Essential hypertension I10 [facility] [id number] [place] [address] [id number] Jul, [facility] [address], [place] [address] Jul, [facility] [id number] [place] [address] 95551- 5851 Jul, Generalized anxiety disorder F41.1 [facility] [address], [place] [address]- 8971 15 Jul, 2017 [facility] [address] [address]- 2165 Jul, Generalized anxiety disorder F41.1 [facility] [address] [place] [address] 58814- 2654 May, Generalized anxiety disorder F41.1 ; Major depressive disorder, recurrent episode, unspecified severity F33.9 ; PTSD (post-traumatic stress disorder) F43.10 ; Eating disorder F50.9 and Attention-deficit hyperactivity disorder, predominantly hyperactive type F90.1 [facility] [address], [place] [address]- 7346 May, Diabetes E11.9 [facility] [id number] [place] [address] 12846 -0997 May, Acute non-recurrent maxillary sinusitis J01.00 and Diabetes E11.9 [facility] [address], [place] [address]- 6752 May, [facility] [address] [place] [address] 18710- 4865 May, [facility] [address] [place] [address] 70252- 9670 May, Generalized anxiety disorder F41.1 [facility] [address], [place] [address]- 2851 Apr, [facility] [address], [place] [address]- 4684 Apr, [facility] [address], [place] [address]- 5915 Apr, [facility] [address], [place] [address]- 8660 Apr, Generalized anxiety disorder F41.1 ; Major depressive disorder, recurrent episode, unspecified severity F33.9 ; PTSD (post-traumatic stress disorder) F43.10 ; Eating disorder F50.9 and Attention-deficit hyperactivity disorder, predominantly hyperactive type F90.1 [facility] [id number] [address]- 9880 Apr, Major depressive disorder, recurrent, moderate F33.1 [facility] [id number] [place] [address] 58671- 8233 Mar, Diabetes E11.9 [facility] [id number] [place] [address] 28510- 3299 Mar, Attention-deficit hyperactivity disorder, combined type F90.2 [facility] [id number] [place] [address] 28626- 9121 14 Mar, 2017 [facility] [id number] [place] [address] 15440- 8872 09 Mar, 2017 Diabetes E11.9 [facility] [id number] [place] [address] 30430- 6096 07 Mar, 2017 longterm 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 ; Psoriatic arthritis L40.50 ; Other specified 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 and Hypertension I10 [facility] [id number] [place] [address] 39482- 8993 February, Back pain M54.9 [facility] [id number] [place] [address] 88108- 4916 February, Attention-deficit hyperactivity disorder, combined type F90.2 [facility] [id number] [place] [address] 88014- 3908 February, Major depressive disorder, recurrent episode, unspecified severity F33.9 and Generalized anxiety disorder F41.1 [facility] [id number] [place] [address] 89150- 9338 Jan, Attention-deficit hyperactivity disorder, combined type F90.2 [facility] [id number] [place] [address] 72494- 2049 Jan, Major depressive disorder, recurrent, moderate F33.1 ; Generalized anxiety disorder F41.1 and Attention-deficit hyperactivity disorder , combined type F90.2 [facility] [id number] [place] [address] 05031- 5729 Dec, Major depressive disorder, recurrent episode, unspecified severity F33.9 ; Generalized anxiety disorder F41.1 and Attention-deficit hyperactivity disorder, predominantly hyperactive type F90.1 [facility] [id number] [place] [address] 74505- 8049 Dec, Major depressive disorder, recurrent episode, unspecified severity F33.9 and Generalized anxiety disorder F41.1 [facility] [id number] [place] [address] 37983- 2809 Dec, [facility] [id number] [place] [address] 74536- 9925 Dec, [facility] [id number] [place] [address] 02127- 7761 Dec, Major depressive disorder, recurrent episode, unspecified severity F33.9 and Generalized anxiety disorder F41.1 [facility] [id number] [place] [address] 93894- 6269 Dec, Back pain M54.9 [facility] [id number] [place] [address] 31876- 0706 17 Dec, 2016 Eustachian tube dysfunction, right H69.81 and Arthritis M19.90 [facility] [id number] [place] [address] 21772- 6255 Dec, [facility] [id number] [place] [address] 39747- 8131 Dec, [facility] [id number] [place] [address] 81623- 7003 07 Dec, 2016 Major depressive disorder, recurrent episode, unspecified severity F33.9 [facility] [id number] [place] [address] 69185- 0172 Oct, [facility] [id number] [place] [address] 22124 -7333 Oct, Acute non-recurrent pansinusitis J01.40 and Sore throat J02.9 [facility] [id number] [place] [address] 63745- 8082 Oct, Major depressive disorder, recurrent episode, unspecified severity F33.9 [facility] [id number] [place] [address] 26003- 6635 Oct, Major depressive disorder, recurrent episode, unspecified severity F33.9 and Generalized anxiety disorder F41.1 [facility] [address] 76612- 4907 Sep, [facility] [address] 02379- 3066 Sep, Major depressive disorder, recurrent episode, unspecified severity F33.9 [facility] [address] 45927- 0111 Sep, Major depressive disorder, recurrent episode, unspecified severity F33.9 [facility] [id number] [place] [address] 81261 -3995 Sep, Sore throat J02.9 [facility] [id number] [place] [address] 28954- 8174 15 Sep, 2016 Generalized anxiety disorder F41.1 ; Major depressive disorder, recurrent episode, unspecified severity F33.9 and Attention-deficit hyperactivity disorder, predominantly hyperactive type F90.1 [facility] [id number] [place] [address] 69744- 0334 08 Sep, 2016 Major depressive disorder, recurrent episode, unspecified severity F33.9 and Generalized anxiety disorder F41.1 [facility] [id number] [place] [address] 29036- 1260 07 Sep, 2016 Psoriatic arthritis L40.50 [facility] [id number] [place] [address] 69729- 8173 02 Sep, 2016 Diabetes E11.9 ; longterm 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 ; Back pain M54.9 and Encounter for immunization Z23 [facility] [address], [place] [address]- 8297 Aug, [facility] [id number] [place] [address] 42895- 9768 Aug, [facility] [id number] [place] [address] 55748- 2754 Jul, Major depressive disorder, recurrent episode, unspecified severity F33.9 ; Attention-deficit hyperactivity disorder, predominantly hyperactive type F90.1 and Generalized anxiety disorder F41.1 [facility] [address] [place] [address] 02922- 9924 Jul, [facility] [id number] [place] [address] 69052- 4150 22 Jul, 2016 Major depressive disorder, recurrent, in partial remission F33.41 and Generalized anxiety disorder F41.1 [facility] [id number] [place] [address] 03395- 4570 19 Jul, 2016 [facility] [address] [place] [address] 32447- 2234 19 Jul, 2016 [facility] [id number] [place] [address] 39314- 7865 Jul, [facility] [address], [place] [address]- 4456 Jul, [facility] [address] [place] [address] 43176- 8360 12 Jul, 2016 Diabetes E11.9 [facility] [address], [place] [address]- 3861 May, [facility] [id number] [place] [address] 12030- 5935 May, [facility] [address], [place] [address]- 5788 May, [facility] [address] [place] [address] 35791- 7838 May, Major depressive disorder, recurrent episode, unspecified severity F33.9 ; Generalized anxiety disorder F41.1 and Attention-deficit hyperactivity disorder, predominantly hyperactive type F90.1 [facility] [address] [place] [address] 25090- 3386 May, [facility] [address], [place] [address]- 5639 May, Diabetes E11.9 [facility] [id number] [place] [address] 74331- 0743 May, [facility] [id number] [place] [address] 10863- 9816 May, [facility] [place] [address] [place] [id number] May, Diabetes E11.9 ; Generalized anxiety disorder F41.1 and Nausea R11.0 [facility] [id number] [place] [address] 43642- 5539 May, Psoriatic arthritis L40.50 and Candidiasis of female genitalia B37.3 [facility] [id number] [place] [address] 05413- 1313 May, [facility] [id number] [place] [address] 87390- 5057 Apr, [facility] [address], [place] [address]- 9985 Apr, [facility] [id number] [place] [address] 83067- 9512 Apr, [facility] [address], [place] [address]- 7019 Apr, Generalized anxiety disorder F41.1 ; Major depressive disorder, recurrent episode, unspecified severity F33.9 and Attention-deficit hyperactivity disorder, predominantly hyperactive type F90.1 [facility] [address], [place] [address]- 7753 Apr, [facility] [address] [address]- 2901 Apr, [facility] [id number] [place] [address] 30341- 9491 Apr, [facility] [id number] [place] [address] 57487- 1681 Apr, [facility] [id number] [place] [address] 48843- 5317 Apr, [facility] [id number] [place] [address] 40350- 4273 Mar, Attention-deficit hyperactivity disorder, predominantly hyperactive type F90.1 [facility] [id number] [place] [address] 14131- 6209 Mar, [facility] [id number] [place] [address] 21611- 9704 Mar, [facility] [id number] [place] [address] 56327- 0492 Mar, Major depressive disorder, recurrent episode, unspecified severity F33.9 and Generalized anxiety disorder F41.1 [facility] [id number] [place] [address] 14170- 6656 February, Diabetes E11.9 [facility] [id number] [place] [address] 01442 -9833 February, OME (otitis media with effusion), bilateral H65.93 [facility] [id number] [place] [address] 54458- 6616 February, Back pain M54.9 [facility] [id number] [place] [address] 82526- 8667 February, [facility] [id number] [place] [address] 59068- 7189 February, Nausea R11.0 [facility] [id number] [place] [address] 03738- 1033 February, [facility] [id number] [place] [address] 19453- 5981 February, Pre-op evaluation Z01.818 ; Type 2 diabetes mellitus with hyperglycemia E11.65 and longterm 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 [facility] [id number] [place] [address] 27957- 4425 February, [facility] [address] 35410 -8708 February, Right otitis externa H60.91 [place] [facility] [address] 83861- 2479 Jan, [facility] [address] 38813- 1979 Jan, Psoriatic arthritis L40.50 and Arthralgia, unspecified joint M25.50 [facility] [address] 28142- 0343 Jan, Major depressive disorder, recurrent episode, unspecified severity F33.9 ; Generalized anxiety disorder F41.1 and Attention-deficit hyperactivity disorder, unspecified type F90.9 [facility] [id number] [place] [address] 84144- 2475 Jan, [facility] [id number] [place] [address] 95303- 3175 Jan, [facility] [id number] [place] [address] 10108- 4777 Jan, Major depressive disorder, recurrent episode, unspecified severity F33.9 and Generalized anxiety disorder F41.1 [facility] [address] 87721- 9924 Jan, [facility] [id number] [place], [place] [address] 69717- 1797 Dec, Hypertension I10 and Arthritis M19.90 [place] [address] [address]- [address]9 Dec, [facility] [address], [place] [address] 0754 Dec, [facility] [id number] [place] [address] 99689- 1192 Dec, [facility] [address], [place] [address]- 3969 Dec, [facility] [id number] [place] [address] 04240- 4780 Dec, [facility] [id number] [place] [address] 57970- 9346 Dec, Major depressive disorder, recurrent episode, unspecified severity F33.9 and Generalized anxiety disorder F41.1 [facility] [id number] [place] [address] 24785- 9717 Dec, Diabetes E11.9 ; Back pain M54.9 ; Thrush B37.0 and Hypertension I10 [facility] [address], [place] [address] 7045 Dec, Major depressive disorder, recurrent episode, unspecified severity F33.9 and Generalized anxiety disorder F41.1 [facility] [address], [place] [address]- 1810 04 Dec, 2015 Major depressive disorder, recurrent episode, in partial or unspecified remission 296.35 ; Major depressive disorder, recurrent episode, unspecified severity F33.9 and Generalized anxiety disorder 300.02 [facility] [address], [place] [address]- 8296 Dec, [facility] [id number] [place] [address] 39066- 3992 Oct, [facility] [address], [place] [address]- 8697 Oct, [facility] [id number] [place] [address] 20013- 9784 Oct, [facility] [id number] [place] [address] 35097- 0449 Oct, [facility] [id number] [place] [address] 90001- 2484 Oct, Major depressive disorder, recurrent, moderate F33.1 and Attention-deficit hyperactivity disorder, unspecified type F90.9 [place] [address] 01827- 9226 Oct, longterm (current) use of opiate analgesic Z79.891 [place] [id number] [place] [address] 81729- 9839 Oct, [facility] [id number] [place] [address] 18824- 9016 Oct, [facility] [id number] [place] [address] 77616 -0410 Sep, URI (upper respiratory infection) J06.9 ; Psoriasis L40.9 ; Cough R05 and Tobacco abuse Z72.0 [place] [id number] [place] [address] 61301- 4055 Sep, Major depressive disorder, recurrent episode, in partial or unspecified remission 296.35 ; Generalized anxiety disorder 300.02 and ADHD, 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 [facility] [id number] [place] [address] 51473 -9357 Sep, Acute sinusitis, unspecified J01.90 [facility] [id number] [place] [address] 04470- 7064 Sep, [facility] [place] [id number] [place] [address] 66675- 5754 Sep, Major depressive disorder, recurrent, moderate F33.1 ; Generalized anxiety disorder F41.1 and Attention-deficit hyperactivity disorder , combined type F90.2 [place] [id number] [place] [address] 75680- 1442 Sep, [facility] [address], [place] [address]- 5388 Aug, [facility] [id number] [place] [address] 11242- 5367 Aug, [facility] [id number] [place] [address] 48039- 9318 Aug, Diabetes E11.9 and Anxiety F41.9 [facility] [id number] [place] [address] 62080- 3156 Aug, Major depressive disorder, recurrent episode, unspecified severity F33.9 and Generalized anxiety disorder F41.1 [facility] [address] [id number] [place] [address] 81850- 0127 Aug, [facility] [id number] [place] [address] 36279- 5165 Jul, [facility] [id number] [place] [address] 95799- 9720 Jul, [facility] [id number] [place] [address] 44429- 1971 Jul, [facility] [id number] [place] [address] 27578- 0355 Jul, [facility] [address], [place] [address]- 7928 Jul, Major depressive disorder, recurrent episode, in partial or unspecified remission 296.35 ; Generalized anxiety disorder 300.02 and ADHD, 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 [facility] [address], [place] [address]- 0578 10 Jul, 2015 Major depressive disorder, recurrent episode, in partial or unspecified remission 296.35 ; Generalized anxiety disorder 300.02 and ADHD, 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 [facility] [address], [place] [address]- 9897 04 Jul, 2015 [facility] [id number] [place] [address] 47989- 5683 May, [facility] [address], [place] [address]- 9226 May, [facility] [address] [place] [id number] [place] [address] 79798- 9491 May, DM w/o complication type II 250.00 ; Dyspepsia 536.8 and PAD (peripheral artery disease) 443.9 [facility] [address] [place] [id number] [place] [address] 06412- 9148 May, Major depressive disorder, recurrent episode, moderate 296.32 and Generalized anxiety disorder 300.02 [facility] [address] [place] [id number] [place] [address] 44620- 1115 May, [facility] [address] [place] [id number] [place] [address] 34669- 7685 May, Major depressive disorder, recurrent episode, moderate 296.32 and Generalized anxiety disorder 300.02 [facility] [address] [place] [place] [id number] [place] [address] 51374- 6041 May, [facility] [id number] [place] [address] 11938- 4737 Apr, [facility] [id number] [place] [address] 29111- 5142 Apr, Major depressive disorder, recurrent episode, moderate 296.32 and Generalized anxiety disorder 300.02 [facility] [id number] [place] [address] 51678- 0157 Apr, [facility] [id number] [place] [address] 24076- 4325 Apr, [facility] [id number] [place] [address] 85033- 4020 Apr, Generalized anxiety disorder 300.02 ; ADHD, 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 and Depression, major, recurrent, moderate 296.32 [facility] [address] [id number] [place] [address] 29651- 8570 Apr, Major depressive disorder, recurrent episode, moderate 296.32 and Generalized anxiety disorder 300.02 [facility] [id number] [place] [address] 00748- 9245 Apr, [facility] [address] [place] [place] [id number] [place] [address] 431665- 2709 Apr, [facility] [id number] [place] [address] 30735- 9090 Mar, [facility] [address] [place] [id number] [place] [address] 45841- 9344 Mar, Major depressive disorder, recurrent episode, moderate 296.32 and Generalized anxiety disorder 300.02 [facility] [address] [place] [id number] [place] [address] 16418- 2010 Mar, ADHD, 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 ; Major depressive disorder, recurrent episode, severe, without mention of psychotic behavior 296.33 and Generalized anxiety disorder 300.02 [facility] [address] [place] [id number] [place] [address] 48376- 0981 February, Major depressive disorder, recurrent episode, moderate 296.32 and Generalized anxiety disorder 300.02 [facility] [address] [place] [id number] [place] [address] 86424- 3700 February, [facility] [address] [place] [place] [id number] [place] [address] 58649- 0451 February, [facility] [address] [place] [id number] [place] [address] 76880- 8055 February, [facility] [address] [place] [id number] [place] [address] 07551- 1614 February, [facility] [address] [place] [id number] [place] [address] 25267- 4012 February, DM w/o complication type II 250.00 ; Impacted cerumen 380.4 ; Essential hypertension, benign 401.1 and Irritable colon 564.1 [facility] [address] [place] [id number] [place] [address] 07645- 4826 February, [facility] [place] [facility] [address] [id number] [place] [address]- 7356 February, [facility] [place] [facility] [address] [id number] [place] [address]- 9346 Jan, [facility] [place] [facility] [address] [id number] [place] [address]- 4473 30 Dec, 2014 [facility] [place] [facility] [address] [id number] [place] [address]- 5150 30 Dec, 2014 [facility] [place] [facility] [address] [id number] [place] [address]- 9081 Dec, [facility] [place] [facility] [address] [id number] [place] [address]- 9154 Dec, [facility] [place] [facility] [address] [facility] [id number] [place] [address]- 8309 16 Dec, 2014 [facility] [place] [facility] [address] [id number] [place] [address]- 6708 16 Dec, 2014 [facility] [place] [facility] [address] [id number] [place] [address]- 3633 Dec, [facility] [place] [facility] [address] [id number] [place] [address]- 9452 Dec, [facility] [place] [facility] [address] [id number] [place] [address]- 1166 Dec, [facility] [place] [facility] [address] [id number] [place] [address]- 5553 Dec, [facility] [place] [facility] [address] [id number] [place] [address]- 8981 Dec, [facility] [place] [facility] [address] [id number] [place] [address]- 1560 Dec, [facility] [place] [facility] [address] [facility] [id number] [place] [address]- 6066 17 Dec, 2014 [facility] [place] [facility] [address] [id number] [place] [address]- 5162 17 Dec, 2014 [facility] [place] [facility] [address] [id number] [place] [address]- 1110 Dec, [facility] [place] [facility] [address] [id number] [place] [address]- 4266 Dec, [facility] [place] [facility] [address] [id number] [place] [address]- 8599 Oct, [facility] [place] [facility] [address] [id number] [place] [address]- 1972 Oct, [facility] [place] [facility] [address] [id number] [place] [address]- 7857 Oct, [facility] [place] [facility] [address] [id number] [place] [address]- 3764 Oct, [facility] [place] [facility] [address] [id number] [place] [address]- 5448 Oct, [facility] [place] [facility] [address] [id number] [place] [address]- 4200 Oct, [facility] [place] [facility] [address] [id number] [place] [address]- 5687 Oct, [facility] [place] [facility] [address] [id number] [place] [address]- 8484 Oct, [facility] [place] [facility] [address] [id number] [place] [address]- 2784 Oct, [facility] [place] [facility] [address] [id number] [place] [address]- 6666 Oct, [facility] [place] [facility] [address] [id number] [place] [address]- 3870 Oct, [facility] [place] [facility] [address] [id number] [place] [address]- 1017 Sep, [facility] [place] [facility] [address] [id number], [place] [address]- 5241 Sep, [facility] [place] [facility] [address] [id number] [place] [address]- 8309 Sep, [facility] [place] [facility] [address] [id number] [place] 7941 Sep, [facility] [place] [facility] [address] [id number] [place] [address]- 2389 Sep, [facility] [place] [facility] [address] [id number] [place] [address]- 7169 Sep, [facility] [place] [facility] [address] [id number] [place] [address]- 1468 Sep, [facility] [place] [facility] [address] [id number] [place] [address]- 1635 Sep, [facility] [place] [facility] [address] [id number] [place] [address]- 7774 Aug, [facility] [place] [facility] [address] [id number] [place] [address]- 8706 Aug, [facility] [place] [facility] [address] [id number] [place] [address]- 3159 Aug, [facility] [place] [facility] [address] [id number] [place] [address]- 9481 Aug, [facility] [place] [facility] [address] [id number], [place] [address]- 6781 Aug, [facility] [place] [facility] [address] [id number], [place] [address]- 6549 Aug, [facility] [place] [facility] [address] [id number] [place] [address]- 8945 Aug, [facility] [place] [facility] [address] [id number] [place] [address]- 0035 Aug, [facility] [place] [facility] [address] [id number] [place] [address]- 0139 Aug, [facility] [place] [facility] [address] [id number] [place] [address]- 2593 Aug, [facility] [place] [facility] [address] [id number] [place] [address]- 3891 Aug, [facility] [place] [facility] [address] [id number] [place] [address]- 3809 Aug, [facility] [place] [facility] [address] [id number] [place] [address]- 7759 Aug, [facility] [place] [facility] [address] [id number] [place] [address]- 4015 Aug, [facility] [place] [facility] [address] [id number] [place] [address]- 6745 Jul, [facility] [place] [facility] [address] [id number] [place] [address]- 3657 Jul, [facility] [place] [facility] [address] [id number] [place] [address]- 5875 Jul, [facility] [place] [facility] [address] [id number] [place] [address]- 3647 Jul, [facility] [place] [facility] [address] [id number] [place] [address]- 6625 Jul, [facility] [place] [facility] [address] [facility] [id number] [place] [address]- 7022 Jul, [facility] [place] [facility] [address] [id number] [place] [address]- 0109 Jul, [facility] [place] [facility] [address] [id number] [place] [address]- 2106 Jul, [facility] [place] [facility] [address] [id number] [place] [address]- 8775 Jul, [facility] [place] [facility] [address] [id number] [place] [address]- 7087 Jul, [facility] [place] [facility] [address] [id number] [place] [address]- 6964 Jul, [facility] [place] [facility] [address] [id number] [place] [address]- 1902 Jul, [facility] [place] [facility] [address] [id number] [place] [address]- 2211 Jul, [facility] [place] [facility] [address] [id number] [place] [address]- 8647 Jul, [facility] [place] [facility] [address] [id number] [place] [address]- 8691 May, [facility] [place] [facility] [address] [id number] [place] [address]- 7396 May, [facility] [place] [facility] [address] [id number] [place] [address]- 9464 May, [facility] [place] [facility] [address] [id number] [place] [address]- 9587 May, [facility] [place] [facility] [address] [id number] [place] [address]- 8940 May, [facility] [place] [facility] [address] [id number] [place] [address]- 2185 May, [facility] [place] [facility] [address] [id number] [place] [address]- 8087 May, [facility] [place] [facility] [address] [id number] [place] [address]- 3957 May, [facility] [place] [facility] [address] [id number] [place] [address]- 3967 May, [facility] [place] [facility] [address] [id number] [place] [address]- 8587 May, [facility] [place] [facility] [address] [id number] [place] [address]- 0071 May, [facility] [place] [facility] [address] [id number] [place] [address]- 6892 May, [facility] [place] [facility] [address] [id number] [place] [address]- 6032 Apr, [facility] [place] [facility] [address] [id number] [place] [address]- 0539 Apr, [facility] [place] [facility] [address] [id number] [place] [address]- 2885 Apr, [facility] [place] [facility] [address] [id number] [place] [address]- 2182 Apr, [facility] [place] [facility] [address] [id number] [place] [address]- 3956 Apr, [facility] [place] [facility] [address] [id number] [place] [address]- 4820 Apr, [facility] [place] [facility] [address] [id number] [place] [address]- 1046 Mar, [facility] [place] [facility] [address] [id number] [place] [address]- 5526 Mar, [facility] [place] [facility] [address] [id number] [place] [address]- 1899 Mar, [facility] [place] [facility] [address] [id number] [place] [address]- 8038 Mar, [facility] [place] [facility] [address] [id number] [place] [address]- 1183 Mar, [facility] [place] [facility] [address] [id number] [place] [address]- 5690 Mar, [facility] [place] [facility] [address] [id number] [place] [address]- 5715 Mar, [facility] [place] [facility] [address] [id number] [place] [address]- 0785 Mar, [facility] [place] [facility] [address] [id number] [place] [address]- 9531 Mar, [facility] [place] [facility] [address] [id number] [place] [address]- 3374 Mar, [facility] [place] [facility] [address] [id number] [place] [address]- 6657 Mar, [facility] [place] [facility] [address] [id number] [place] 7311 Mar, [facility] [place] [facility] [address] [id number] [place] [address]- 7642 Mar, [facility] [place] [facility] [address] [id number] [place] [address]- 9428 February, [facility] [place] [facility] [address] [id number] [place] [address]- 5812 February, [facility] [place] [facility] [address] [id number] [place] [address]- 1179 February, [facility] [place] [facility] [address] [id number] [place] [address]- 1473 February, [facility] [place] [facility] [address] [id number] [place] [address]- 3570 February, [facility] [place] [facility] [address] [id number] [place] [address]- 9796 February, [facility] [place] [facility] [address] [id number] [place] [address]- 3994 February, [facility] [place] [facility] [address] [id number] [place] [address]- 4649 February, [facility] [place] [facility] [address] [id number] [place] [address]- 0692 February, [facility] [place] [facility] [address] [id number] [place] [address]- 0412 February, [facility] [place] [facility] [address] [id number] [place] 8843 February, [facility] [place] [facility] [address] [id number] [place] [address]- 5302 February, [facility] [place] [facility] [address] [id number] [place] [address]- 6597 February, [facility] [place] [facility] [address] [id number] [place] [address]- 7149 February, [facility] [place] [facility] [address] [id number] [place] [address]- 5059 Jan, [facility] [place] [facility] [address] [id number] [place] [address]- 7283 Jan, [facility] [place] [facility] [address] [id number] [place] [address]- 8048 Jan, [facility] [place] [facility] [address] [id number] [place] [address]- 3632 Jan, [facility] [place] [facility] [address] [id number] [place] [address]- 2211 Jan, [facility] [place] [facility] [address] [id number] [place] [address]- 1806 Jan, [facility] [place] [facility] [address] [id number] [place] [address]- 6283 Jan, [facility] [place] [facility] [address] [id number] [place] [address]- 8133 Jan, [facility] [place] [facility] [address] [id number] [place] [address]- 6011 Jan, [facility] [place] [facility] [address] [id number] [place] [address]- 0184 Dec, [facility] [place] [facility] [address] [id number] [place] [address]- 2996 Dec, [facility] [place] [facility] [address] [id number] [place] [address]- 2830 Dec, [facility] [place] [facility] [address] [id number] [place] [address]- 0546 Dec, [facility] [place] [facility] [address] [id number] [place] [address]- 9437 Dec, [facility] [place] [facility] [address] [id number] [place] [address]- 9651 Dec, [facility] [place] [facility] [address] [id number] [place] [address]- 3554 Dec, [facility] [place] [facility] [address] [id number] [place] [address]- 1501 Dec, [facility] [place] [facility] [address] [id number] [place] [address]- 8603 Dec, [facility] [place] [facility] [address] [id number] [place] [address]- 6055 Dec, [facility] [place] [facility] [address] [id number] [place] [address]- 2034 14 Dec, 2013 [facility] [place] [facility] [address] [id number] [place] [address]- 8939 Dec, [facility] [place] [facility] [address] [id number] [place] [address] Dec, [facility] [place] [facility] [address] [id number] [place] [address] Dec, [facility] [place] [facility] [address] [id number] [place] [address] Dec, [facility] [place] [facility] [address] [id number] [place] [address] Dec, [facility] [place] [facility] [address] [id number] [place] [address] Dec, [facility] [place] [facility] [address] [id number] [place] [address] Oct, [facility] [place] [facility] [address] [id number] [place] [address] Oct, [facility] [place] [facility] [address] [id number] [place] [address] Oct, [facility] [place] [facility] [address] [id number] [place] [address]- [address] Oct, [facility] [address] [id number] [place] [address] Oct, [facility] [place] [facility] [address] [id number] [place] [address] Oct, [facility] [place] [facility] [address] [id number] [place] [address] Oct, [facility] [place] [facility] [address] [id number] [place] [address] Oct, [facility] [place] [facility] [address] [id number] [place] [address] Oct, [facility] [place] [facility] [address] [id number] [place] [address] Oct, [facility] [place] [facility] [address] [id number] [place] [address] Oct, [facility] [place] [facility] [address] [id number] [place] [address] Oct, [facility] [place] [facility] [address] [id number] [place] [address]279 Oct, [facility] [place] [facility] [address] [id number] [place] [address] Oct, [facility] [place] [facility] [address] [id number] [place] [address] Sep, [facility] [place] [facility] [address] [id number], [place] [address] Sep, [facility] [place] [facility] [address] [id number] [place] [address] Sep, [facility] [place] [facility] [address] [id number] [place] [address] Sep, [facility] [place] [facility] [address] [id number] [place] [address]- [address] Sep, [facility] [place] [facility] [address] [id number] [place] [address]- [address] 27 Sep, 2013 [facility] [address] [id number] [place] [address]- [address] 27 Sep, 2013 [facility] [place] [facility] [address] [id number] [place] [address]- [address] 27 Sep, 2013 [facility] [address] [id number] [place] [address]- [address] 27 Sep, 2013 [facility] [place] [facility] [address] [id number] [place] [address]- 395[address] 27 Sep, 2013 [facility] [address] [id number] [place] [address] 16 Sep, 2013 [facility] [place] [facility] [address] [id number] [place] [address]- [address] 16 Sep, 2013 [facility] [address] [id number] [place] [address]- [address] 13 Sep, 2013 [facility] [place] [facility] [address] [id number] [place] [address]- [address] 13 Sep, 2013 [facility] [place] [facility] [address] [id number] [place] [address] 10 Sep, 2013 [facility] [place] [facility] [address] [facility] [id number] [place] [address] 10 Sep, 2013 [facility] [place] [facility] [address] [id number] [place] [address]- [address] 02 Sep, 2013 [facility] [place] [facility] [address] [id number] [place] [address]40 02 Sep, 2013 [facility] [place] [facility] [address] [id number] [place] [address]- [address]144 15 Aug, 2013 [facility] [place] [facility] [address] [id number] [place] [address] 15 Aug, 2013 [facility] [place] [facility] [address] [facility] [id number] [place] [address]- [address] 16 Jul, 2013 [facility] [place] [facility] [address] [id number] [place] [address]- [address] 16 Jul, 2012 [facility] [place] [facility] [address] [id number] [place] [address] 14 Jul, 2012 [facility] [place] [facility] [address] [id number] [place] [address] 9431 14 Jul, 2012 [facility] [place] [facility] [address] [id number] [place] [address] 08 Jul, 2012 [facility] [place] [facility] [address] [id number] [place] [address]284 20 Jul, 2012 [facility] [place] [facility] [address] [id number] [place] [address] 2026 19 Jul, 2012 [facility] [place] [facility] [address] [id number] [place] [address]- 2454 13 Jul, 2012 [facility] [place] [facility] [address] [id number] [place] [address] 9749 08 Jul, 2012 [facility] [place] [facility] [address] [id number] [place] [address]- [address] 06 Jul, 2012 [facility] [place] [facility] [address] [id number] [place] [address] 9838 06 Jul, 2012 [facility] [place] [facility] [address] [id number] [place] [address] 6527 06 Jul, 2012 [facility] [place] [facility] [address] [id number] [place] [address] 2548 03 Jul, 2012 [facility] [place] [facility] [address] [id number] [place] [address]42 29 May, 2013 [facility] [place] [facility] [address] [id number] [place] [address]- 2544 26 May, 2012 [facility] [place] [facility] [address] [id number] [place] [address]- 7516 May, 2012 [facility] [place] [facility] [address] [id number] [place] [address]- 0599 May, [facility] [place] [facility] [address] [id number] [place] [address]- 0038 Apr, [facility] [place] [facility] [address] [id number] [place] [address] 1077 Apr, [facility] [place] [facility] [address] [id number] [place] [address]- 1494 Apr, [facility] [place] [facility] [address] [id number] [place] [address] 7235 Mar, [facility] [place] [facility] [address] [id number] [place] [address]- 5617 Mar, [facility] [place] [facility] [address] [id number] [place] [address] 3866 Mar, [facility] [place] [facility] [address] [id number] [place] [address] 9120 Mar, [facility] [place] [facility] [address] [id number] [place] [address] 6797 February, [facility] [place] [facility] [address] [id number] [place] [address] 2203 February, [facility] [place] [facility] [address] [id number] [place] [address] Jan, [facility] [place] [facility] [address] [id number] [place] [address]- 7102 Dec, [facility] [place] [facility] [address] [id number], [place] [address] Dec, [facility] [place] [facility] [address] [id number] [place] [address]- 0523 Dec, [facility] [place] [facility] [address] [id number] [place] [address]- 6417 Dec, [facility] [place] [facility] [address] [id number] [place] [address]- 4343 Dec, [facility] [place] [facility] [address] [id number] [place] [address]- 7466 27 Dec, 2012 [facility] [address] [id number] [place] [address]- 0556 26 Dec, 2012 [facility] [place] [facility] [address] [id number] [place] [address]- 4326 25 Dec, 2012 [facility] [address] [id number] [place] [address]- 0316 Dec, [facility] [address] [id number] [place] [address] 2547 15 Dec, 2012 [facility] [address] [id number] [place] [address]- 4606 14 Dec, 2012 [facility] [address] [id number] [place] [address] 4126 Oct, [facility] [address] [id number] [place] [address] 9095 Oct, [facility] [address] [id number] [place] [address] 7165 Oct, [facility] [address] [facility] [id number] [place] [address] 2110 Oct, [facility] [address] [facility] [id number] [place] [address] 9403 Sep, [facility] [address] [id number] [place] [address] 2546 Sep, [facility] [address] [id number] [place] [address] 2548 Sep, [facility] [place] [facility] [address] [id number] [place] [address] 2546 Sep, [facility] [place] [facility] [address] [id number] [place] [address] 2546 03 Sep, 2012 [facility] [place] [facility] [address] [id number] [place] [address] 0870 Sep, [facility] [place] [facility] [address] [id number] [place] [address] 0155 Aug, [facility] [place] [facility] [address] [id number] [place] [address] 3796 Aug, [facility] [place] [facility] [address] [facility] [id number] [place] [address]- 3198 Aug, [facility] [place] [facility] [address] [id number] [place] [address]- 5809 Aug, [facility] [place] [facility] [address] [id number] [place] [address]- 3177 Aug, [facility] [place] [facility] [address] [facility] [id number] [place] [address]- 7065 Aug, [facility] [place] [facility] [address] [facility] [id number] [place] [address]- 8462 Jul, [facility] [place] [facility] [address] [id number], [place] [address] 1227 Jul, [facility] [place] [facility] [address] [facility] [id number], [place] [address]- [address] Jul, [facility] [place] [facility] [address] [facility] [id number], [place] [address]- 1045 Jul, [facility] [place] [facility] [address] [facility] [id number], [place] [address]- 1380 Jul, [facility] [place] [facility] [address] [id number], [place] [address] 3664 Jul, [facility] [place] [facility] [address] [id number] [place] [address]- 0885 Jul, [facility] [place] [facility] [address] [facility] [id number], [place] [address]- [address]281 Jul, [facility] [place] [facility] [address] [facility] [id number], [place] [address]- 9495 20 Jul, 2012 [facility] [place] [facility] [address] [id number] [place] [address]- 0144 Jul, [facility] [place] [facility] [address] [id number] [place] [address]- 8766 Jul, [facility] [place] [facility] [address] [id number] [place] [address] 2546 May, [facility] [place] [facility] [address] [id number] [place] [address]- 6881 May, [facility] [place] [facility] [address] [id number] [place] [address] 2544 May, [facility] [place] [facility] [address] [id number] [place] [address]- 8583 May, [facility] [place] [facility] [address] [id number] [place] [address]- 6107 Apr, [facility] [place] [facility] [address] [id number] [place] [address]- 2755 Apr, [facility] [place] [facility] [address] [id number] [place] [address]- 3154 Apr, [facility] [place] [facility] [address] [id number] [place] [address]- 1262 Apr, [facility] [place] [facility] [address] [id number] [place] [address]- 0340 Apr, [facility] [place] [facility] [address] [id number] [place] [address] 2540 Apr, [facility] [place] [facility] [address] [id number] [place] [address]- 2543 Apr, [facility] [place] [facility] [address] [id number] [place] [address]- 1212 Apr, [facility] [place] [facility] [address] [id number] [place] [address]- 2542 Mar, [facility] [place] [facility] [address] [id number] [place] [address]- 9765 Mar, [facility] [place] [facility] [address] [id number] [place] [address]- 7107 20 Mar, 2012 [facility] [place] [facility] [address] [id number] [place] [address]- 3194 15 Mar, 2012 [facility] [place] [facility] [address] [id number] [place] [address]- 8199 14 Mar, 2012 [facility] [place] [facility] [address] [id number] [place] [address]- 4715 12 Mar, 2012 [facility] [place] [facility] [address] [id number] [place] [address]- 5749 12 Mar, 2012 [facility] [place] [facility] [address] [id number] [place] [address]- 6042 11 Mar, 2012 [facility] [place] [facility] [address] [id number] [place] [address]- 5212 08 Mar, 2012 [facility] [place] [facility] [address] [id number] [place] [address]- 0847 30 Feb, 2012 [facility] [place] [facility] [address] [id number] [place] [address]- 8125 February, [facility] [place] [facility] [address] [id number] [place] [address]- 3290 25 Feb, 2012 [facility] [place] [facility] [address] [id number] [place] [address]- 8332 February, [facility] [place] [facility] [address] [id number] [place] [address]- 5804 13 Jan, 2012 [facility] [place] [facility] [address] [id number] [place] [address]- 6504 03 Jan, 2012 [facility] [place] [facility] [address] [id number] [place] [address]- 5990 28 Dec, 2011 [facility] [place] [facility] [address] [id number] [place] [address]- 2077 15 Dec, 2011 [facility] [place] [facility] [address] [id number] [place] [address]- 9207 14 Dec, 2011 [facility] [address] [id number] [place] [address]- 9776 07 Dec, 2011 [facility] [place] [facility] [address] [id number] [place] [address]- 8256 28 Dec, 2011 [facility] [place] [facility] [address] [id number] [place] [address]- 8396 Dec, [facility] [place] [facility] [address] [id number] [place] [address]- 6109 Dec, [facility] [place] [facility] [address] [id number] [place] [address]- 5166 Dec, [facility] [place] [facility] [address] [id number] [place] [address]- 0456 Dec, [facility] [place] [facility] [address] [id number] [place] [address]- 9140 Dec, [facility] [place] [facility] [address] [id number] [place] [address]- 2074 07 Dec, 2011 [facility] [place] [facility] [address] [id number] [place] [address]- 3116 Dec, [facility] [place] [facility] [address] [id number] [place] [address]- 0266 Oct, [facility] [place] [facility] [address] [id number] [place] [address]- 1926 Oct, [facility] [place] [facility] [address] [id number] [place] [address]- 9131 Oct, [facility] [place] [facility] [address] [id number] [place] [address]- 9592 Oct, [facility] [place] [facility] [address] [id number] [place] [address]- 7261 Oct, [facility] [place] [facility] [address] [id number] [place] [address]- 6347 Oct, [facility] [place] [facility] [address] [id number] [place] [address]- 7924 16 Oct, 2011 [facility] [address] [id number] [place] [address] Oct, [facility] [address] [id number] [place] [address]- 3843 Sep, [facility] [place] [facility] [address] [id number] [place] [address]- 9921 Sep, [facility] [address] [id number] [place] [address]- 6779 Sep, [facility] [place] [facility] [address] [id number] [place] [address]- 8605 Aug, [facility] [address] [id number] [place] [address]- 6542 Aug, [facility] [address] [id number] [place] [address]- 8169 Aug, [facility] [address] [id number] [place] [address]- 7942 Aug, [facility] [address] [id number] [place] [address]- 4623 Aug, [facility] [place] [facility] [address] [id number] [place] [address]- 7230 Jul, [facility] [place] [facility] [address] [id number], [place] [address]- 4066 Jul, [facility] [place] [facility] [address] [id number] [place] [address]- 7430 May, [facility] [place] [facility] [address] [id number] [place] [address]- 0347 Dec, [facility] [place] [facility] [address] [id number], [place] [address]- 3322 Oct, [facility] [place] [facility] [address] [id number], [place] [address]- 1601 Sep, [facility] [address] [facility] [id number] [place] [address]- 1413 Sep, [facility] [address] [facility] [id number] [place] [address]- 3004 Sep, IMMUNIZATIONS No Known Immunizations SOCIAL HISTORY Never Assessed REASON FOR VISIT phone call PLAN OF CARE VITAL SIGNS MEDICATIONS Medication Instructions Dosage Frequency Start Date End Date Duration Status Diflucan 150 MG Orally on day one and then again on day 3 1 tablet Jul Active RESULTS No Results PROCEDURES No Known [...] veinous reflux Surgical History Left Knee SOA-Dr. Melendrez-[facility] 05/19/16 Surgical History Colonoscopy- Dr Castanon 01/26/2017 Hospitalization History surgeries Hospitalization History Left Knee SOA--Dr. Melendrez--[facility] Hospitalization History Septic shock, UTI-[facility] 07/27/17 Hospitalization History Multiple falls, hyperglycemia, sepsis 07/2017 Hospitalization History Alcoholism, depression, DM, Falls-[facility] 08/23/17 Hospitalization History COPD exacerbation-[facility] 11/25/17 Hospitalization History COPD exacerbation-[facility] 11/28/17
--- OUTSIDE RECORDS SUMMARY | 2018-05-10 03:51 | XMS REPORT ---
Author Author SHENA DAVIS [facility] Address [address] [place] [address] Care Team Providers Care Validation Intern Name Role Phone SHENA DAVIS Unavailable PROBLEMS Type Condition ICD9-CM Code LNG58-VK Code Onset Dates Condition Status SNOMED Code Problem Generalized anxiety disorder F41.1 Active 76646620 Problem Diabetes E11.9 Active 42059911 Problem Psoriasis L40.9 Active 1232402 Problem Tobacco abuse Z72.0 Active 68968678 Problem Hypertension I10 Active 25548625 Problem Back pain M54.9 Active 783267810 Problem Arthritis M19.90 Active 0135140 Problem MCC 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 Active 599525632 Problem Psoriatic arthritis L40.50 Active 370784241 Problem Psychophysiological insomnia F51.04 Active 88420551 Problem Other specified 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 Active 299270976 Problem Obesity (BMI 30-39.9) E66.9 Active 170094102 Problem Major depressive disorder, recurrent, moderate F33.1 Active 75443615 Problem Essential hypertension I10 Active 05404761 Problem Type 2 diabetes mellitus with hyperglycemia E11.65 Active 760092388090833 Problem Alcoholism F10.20 Active 2069248 Problem Frequent falls R29.6 Active 119093777 Problem Benzodiazepine abuse F13.10 Active 141731580 Problem PTSD (post-traumatic stress disorder) F43.10 Active 14855620 Problem Eating disorder F50.9 Active 71481365 Problem Attention-deficit hyperactivity disorder, combined type F90.2 Active 30908308 Problem COPD exacerbation J44.1 Active 108887099 Problem Anxiety F41.9 Active 77841758 Problem Decubitus ulcer of left buttock, stage 2 L89.322 Active 077620374 Problem BMI 40.0-44.9, adult Z68.41 Active 141597950 Problem Alcohol abuse F10.10 Active 70004012 Problem Pneumonia due to methicillin resistant Staphylococcus aureus, unspecified laterality, unspecified part of lung J15.212 Active 696568962956050 Problem Type 2 diabetes mellitus with unspecified complications E11.8 Active 95590328 Problem Attention-deficit hyperactivity disorder, predominantly hyperactive type F90.1 Active 477412785 Problem Type 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 Active 30921874 Problem Ulcer of right foot, unspecified ulcer stage L97.519 Active 72069910 Problem Attention deficit R41.840 Active 33441608 Problem Mental disorder, not otherwise specified F99 Active 10780421 Problem Insomnia due to other mental disorder F51.05 Active 27950202 ALLERGIES No Information ENCOUNTERS Encounter Location Date Diagnosis [facility] [id number], [place] [address] February, [facility] [id number] [place] [address] 77243- 4389 February, [facility] [id number] [place] [address] 84377- 1073 Jan, [facility] [id number] [place] [address] 58722- 7728 Jan, [facility] [id number] [place] [address] 74424- 2321 Dec, [facility] [id number] [place] [address] 80156- 5894 Dec, Increased urinary frequency R35.0 ; Frequent falls R29.6 ; Decubitus ulcer of left buttock, stage 2 L89.322 ; Benzodiazepine abuse F13.10 ; BMI 40.0-44.9, adult Z68.41 and Yeast infection B37.9 [facility] [id number] [place] [address] 39668- 6676 Dec, [facility] [id number] [place] [address] 73562- 1699 Dec, [facility] [id number] [place] [address] 91936- 4641 Dec, Increased urinary frequency R35.0 [facility] [id number], [place] [address] 0287 Dec, Increased urinary frequency R35.0 [facility] [id number] [place] [address] 52478- 1595 Dec, Generalized anxiety disorder F41.1 ; Major depressive disorder, recurrent, moderate F33.1 and Psychophysiological insomnia F51.04 [facility] [id number] [place] [address] 56351- 1313 Dec, BMI 40.0-44.9, adult Z68.41 ; Type 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 ; Pneumonia due to methicillin resistant Staphylococcus aureus, unspecified laterality, unspecified part of lung J15.212 and COPD exacerbation J44.1 [facility] [id number] [place] [address] 18096 -9037 Dec, [facility] [id number] [place] [address] [id number] Dec, [facility] [id number] [place] [address] [id number] Oct, [facility] [id number] [place] [address] 04400 -6136 Oct, Frequency of urination R35.0 ; Bronchitis J40 and BMI 40.0- 44.9, adult Z68.41 [facility] [id number] [place] [address] [id number] Oct, [facility] [id number] [place] [address] 20918- 4179 Oct, [facility] [id number] [place] [address] 18718- 0740 Oct, BMI 40.0-44.9, adult Z68.41 ; Type 2 diabetes mellitus with hyperglycemia E11.65 ; Essential hypertension I10 ; Vaginal yeast infection B37.3 ; Anxiety F41.9 and Alcoholism F10.20 [facility] [id number] [place] [address] 77539- 6288 Oct, [facility] [address], [place] [address] 0049 Oct, [facility] [id number] [place] [address] 16584- 0509 Sep, [facility] [id number] [place] [address] 17577- 1870 Sep, Major depressive disorder, recurrent episode, unspecified severity F33.9 ; Generalized anxiety disorder F41.1 and Eating disorder F50.9 [facility] [id number] [place] [address] 62098- 5378 Sep, Major depressive disorder, recurrent, moderate F33.1 ; Type 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 ; Alcohol abuse F10.10 ; Obesity (BMI 30-39.9) E66.9 and Psychophysiological insomnia F51.04 [facility] [id number] [place] [address] 08001- 8273 Sep, Diabetes E11.9 and Generalized anxiety disorder F41.1 [facility] [id number] [place] [address] 55828- 7853 Sep, Major depressive disorder, recurrent episode, unspecified severity F33.9 ; Generalized anxiety disorder F41.1 and Eating disorder F50.9 [facility] [address], [place] [address] 5052 Sep, [facility] [id number] [place] [address] 53664- 7452 Aug, [facility] [address] [place] [address] 26138- 9313 Aug, Insomnia due to other mental disorder F51.05 ; Mental disorder, not otherwise specified F99 ; Attention deficit R41.840 ; Ulcer of right foot, unspecified ulcer stage L97.519 ; Cough R05 ; Diabetes E11.9 ; Sore in mouth K13.79 ; Generalized anxiety disorder F41.1 ; Major depressive disorder , recurrent episode, unspecified severity F33.9 and BMI 40.0-44.9, adult Z68.41 [facility] [id number], [place] [address] 5366 Aug, [facility] [address], [place] [address] 0355 Aug, [facility] [address], [place] [address] 9704 Aug, [facility] [id number] [place] [address] 28743- 3588 Aug, [facility] [address], [place] [address] 3909 Aug, Diabetes E11.9 [facility] [address] [place] [id number] Aug, Falling R29.6 ; Alcohol abuse F10.10 ; Major depressive disorder, recurrent episode, unspecified severity F33.9 ; Hypertension I10 ; Type 2 diabetes mellitus with unspecified complications E11.8 and MCC current use of insulin Z79.4 [place] [id number] [id number] Aug, [email or web address] [address] [place] [id number] Aug, Alcohol abuse F10.10 ; Major depressive disorder, recurrent episode, unspecified severity F33.9 ; Generalized anxiety disorder F41.1 ; 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 ; Psoriatic arthritis L40.50 and Diabetes E11.9 [facility] [id number] [id number] Aug, [facility] [id number] [id number] Jul, [facility] [address], [place] [address] 5767 Jul, [facility] [id number], [place] [address]- 1878 Jul, Generalized anxiety disorder F41.1 [facility] [address], [place] [address] 1834 Jul, [facility] [id number] [place] [address] 36783- 7263 Jul, [facility] [id number] [place] [address] 04438- 5064 Jul, Generalized anxiety disorder F41.1 ; Major depressive disorder, recurrent episode, unspecified severity F33.9 ; PTSD (post-traumatic stress disorder) F43.10 ; Eating disorder F50.9 and Attention-deficit hyperactivity disorder, predominantly hyperactive type F90.1 [facility] [id number] [place] [address] 05193- 4688 Jul, [facility] [id number] [place] [address] 92251- 6544 Jul, [facility] [id number] [place] [address] 97112- 0468 Jul, MCC current use of insulin Z79.4 ; Type 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 ; Urinary tract infection, site not specified N39.0 ; Sepsis, unspecified organism A41.9 and Essential hypertension I10 [facility] [id number] [place] [address] [id number] Jul, [facility] [address], [place] [address] Jul, [facility] [id number] [place] [address] 88726- 3980 Jul, Generalized anxiety disorder F41.1 [facility] [id number] [place] [address] 29649- 7970 Jul, [facility] [id number] [place] [address] 41107- 4773 Jul, Generalized anxiety disorder F41.1 [facility] [id number] [place] [address] 50235- 0152 May, Generalized anxiety disorder F41.1 ; Major depressive disorder, recurrent episode, unspecified severity F33.9 ; PTSD (post-traumatic stress disorder) F43.10 ; Eating disorder F50.9 and Attention-deficit hyperactivity disorder, predominantly hyperactive type F90.1 [facility] [address], [place] [address] 8[address] May, Diabetes E11.9 [facility] [id number] [place] [address] 46381 -6468 May, Acute non-recurrent maxillary sinusitis J01.00 and Diabetes E11.9 [facility] [id number] [place] [address] 63224- 7355 May, [facility] [id number] [place] [address] 78294- 4545 May, [facility] [id number] [place] [address] 86587- 3583 May, Generalized anxiety disorder F41.1 [facility] [id number] [place] [address] 90956- 9685 Apr, [facility] [id number] [place] [address] 67886- 1513 Apr, [facility] [id number] [place] [address] 08845- 1033 Apr, [facility] [id number] [place] [address] 13746- 3195 Apr, Generalized anxiety disorder F41.1 ; Major depressive disorder, recurrent episode, unspecified severity F33.9 ; PTSD (post-traumatic stress disorder) F43.10 ; Eating disorder F50.9 and Attention-deficit hyperactivity disorder, predominantly hyperactive type F90.1 [facility] [id number] [place] [address] 86207- 2574 Apr, Major depressive disorder, recurrent, moderate F33.1 [facility] [id number] [place] [address] 20463- 5275 Mar, Diabetes E11.9 [facility] [address], [place] [address]- 2577 20 Mar, 2017 Attention-deficit hyperactivity disorder, combined type F90.2 [facility] [address], [place] [address]- 0342 14 Mar, 2017 [facility] [id number] [place] [address] 57558- 9202 09 Mar, 2017 Diabetes E11.9 [facility] [id number] [place] [address] 20746- 8878 07 Mar, 2017 MCC current use of insulin Z79.4 ; Psoriatic arthritis L40.50 ; Other specified 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 and Hypertension I10 [facility] [id number] [place] [address] 23725- 6676 February, Back pain M54.9 [facility] [id number] [place] [address] 48616- 2554 February, Attention-deficit hyperactivity disorder, combined type F90.2 [facility] [id number] [place] [address] 26886- 7556 February, Major depressive disorder, recurrent episode, unspecified severity F33.9 and Generalized anxiety disorder F41.1 [facility] [id number] [place] [address] 59926- 5427 Jan, Attention-deficit hyperactivity disorder, combined type F90.2 [facility] [id number] [place] [address] 91260- 9816 Jan, Major depressive disorder, recurrent, moderate F33.1 ; Generalized anxiety disorder F41.1 and Attention-deficit hyperactivity disorder , combined type F90.2 [facility] [id number] [place] [address] 02555- 5010 Dec, Major depressive disorder, recurrent episode, unspecified severity F33.9 ; Generalized anxiety disorder F41.1 and Attention-deficit hyperactivity disorder, predominantly hyperactive type F90.1 [facility] [id number] [place] [address] 17790- 0296 Dec, Major depressive disorder, recurrent episode, unspecified severity F33.9 and Generalized anxiety disorder F41.1 [facility] [id number] [place] [address] 08503- 3810 Dec, [facility] [id number] [place] [address] 40853- 0998 Dec, [facility] [id number] [place] [address] 07263- 9646 Dec, Major depressive disorder, recurrent episode, unspecified severity F33.9 and Generalized anxiety disorder F41.1 [facility] [id number] [place] [address] 20062- 9713 Dec, Back pain M54.9 [facility] [id number] [place] [address] 17308- 8328 17 Dec, 2016 Eustachian tube dysfunction, right H69.81 and Arthritis M19.90 [facility] [id number] [place] [address] 06930- 3090 Dec, [facility] [id number] [place] [address] 12844- 9860 Dec, [facility] [id number] [place] [address] 27112- 8691 Dec, Major depressive disorder, recurrent episode, unspecified severity F33.9 [facility] [id number] [place] [address] 11591- 0067 Oct, [facility] [id number] [place] [address] 52832 -9561 Oct, Acute non-recurrent pansinusitis J01.40 and Sore throat J02.9 [facility] [id number] [place] [address] 71561- 4769 Oct, Major depressive disorder, recurrent episode, unspecified severity F33.9 [facility] [address], [place] [address]- 3076 Oct, Major depressive disorder, recurrent episode, unspecified severity F33.9 and Generalized anxiety disorder F41.1 [facility] [id number] [place] [address] 92569- 0272 Sep, [facility] [id number] [place] [address] 72879- 0565 Sep, Major depressive disorder, recurrent episode, unspecified severity F33.9 [facility] [id number] [place] [address] 61113- 8635 Sep, Major depressive disorder, recurrent episode, unspecified severity F33.9 [facility] [id number] [place] [address] 27824 -5348 Sep, Sore throat J02.9 [facility] [facility] [id number] [place] [address] 49800- 0123 15 Sep, 2016 Generalized anxiety disorder F41.1 ; Major depressive disorder, recurrent episode, unspecified severity F33.9 and Attention-deficit hyperactivity disorder, predominantly hyperactive type F90.1 [facility] [id number] [place] [address] 92659- 5900 08 Sep, 2016 Major depressive disorder, recurrent episode, unspecified severity F33.9 and Generalized anxiety disorder F41.1 [facility] [id number] [place] [address] 15742- 5729 07 Sep, 2016 Psoriatic arthritis L40.50 [facility] [id number] [place] [address] 51766- 3392 02 Sep, 2016 Diabetes E11.9 ; 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 ; Back pain M54.9 and Encounter for immunization Z23 [facility] [id number] [place] [address] 58221- 8338 Aug, [facility] [id number] [place] [address] 97155- 3487 Aug, [place] [address], [place] [address]- 7192 Jul, Major depressive disorder, recurrent episode, unspecified severity F33.9 ; Attention-deficit hyperactivity disorder, predominantly hyperactive type F90.1 and Generalized anxiety disorder F41.1 [facility] [address], [place] [address]- 4962 Jul, [facility] [id number] [place] [address] 38146- 7261 Jul, Major depressive disorder, recurrent, in partial remission F33.41 and Generalized anxiety disorder F41.1 [facility] [id number] [place] [address] 23662- 0169 Jul, [facility] [id number] [place] [address] 28759- 4319 Jul, [facility] [id number] [place] [address] 55423- 6559 Jul, [facility] [id number] [place] [address] 27055- 5457 Jul, [facility] [id number] [place] [address] 64565- 1574 Jul, Diabetes E11.9 [facility] [address], [place] [address]- 5885 May, [facility] [id number] [place] [address] 92348- 8762 May, [facility] [id number] [place] [address] 94492- 2540 May, [facility] [id number] [place] [address] 50063- 5325 May, Major depressive disorder, recurrent episode, unspecified severity F33.9 ; Generalized anxiety disorder F41.1 and Attention-deficit hyperactivity disorder, predominantly hyperactive type F90.1 [facility] [id number] [place] [address] 24112- 6412 May, [facility] [address], [place] [address]- 0640 May, Diabetes E11.9 [facility] [id number] [place] [address] 13310- 1427 May, [facility] [id number] [place] [address] 99024- 3206 May, [facility] [address] [place] [id number] May, Diabetes E11.9 ; Generalized anxiety disorder F41.1 and Nausea R11.0 [facility] [id number] [place] [address] 17818- 5355 May, Psoriatic arthritis L40.50 and Candidiasis of female genitalia B37.3 [facility] [id number] [place] [address] 04426- 5061 May, [facility] [id number] [place] [address] 48755- 9201 Apr, [facility] [id number] [place] [address] 79065- 5485 Apr, [facility] [id number] [place] [address] 23112- 4313 Apr, [facility] [id number] [place] [address] 29934- 7179 Apr, Generalized anxiety disorder F41.1 ; Major depressive disorder, recurrent episode, unspecified severity F33.9 and Attention-deficit hyperactivity disorder, predominantly hyperactive type F90.1 [facility] [id number] [place] [address] 14564- 8758 Apr, [facility] [id number] [place] [address] 82253- 5303 Apr, [facility] [id number] [place] [address] 56687- 5192 Apr, [facility] [address], [place] [address]- 5261 Apr, [facility] [id number] [place] [address] 69123- 7656 Apr, [facility] [id number] [place] [address] 95900- 0079 Mar, Attention-deficit hyperactivity disorder, predominantly hyperactive type F90.1 [facility] [id number] [place] [address] 12207- 4716 Mar, [facility] [id number] [place] [address] 18943- 6120 Mar, [facility] [id number] [place] [address] 69800- 8169 Mar, Major depressive disorder, recurrent episode, unspecified severity F33.9 and Generalized anxiety disorder F41.1 [facility] [id number] [place] [address] 55914- 7779 February, Diabetes E11.9 [facility] [id number] [place] [address] 73237 -5875 February, OME (otitis media with effusion), bilateral H65.93 [facility] [id number] [place] [address] 94531- 7109 February, Back pain M54.9 [facility] [id number] [place] [address] 79513- 0258 February, [facility] [id number] [place] [address] 72832- 4621 February, Nausea R11.0 [facility] [id number] [place] [address] 43957- 1347 February, [facility] [id number] [place] [address] 24165- 7382 February, Pre-op evaluation Z01.818 ; Type 2 diabetes mellitus with hyperglycemia E11.65 and 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 [facility] [id number] [place] [address] 99833- 6671 February, [facility] [id number] [place] [address] 22045 -8994 February, Right otitis externa H60.91 [facility] [id number] [place] [address] 01141- 3393 Jan, [facility] [id number] [place] [address] 71702- 3400 Jan, Psoriatic arthritis L40.50 and Arthralgia, unspecified joint M25.50 [facility] [id number] [place] [address] 42864- 2735 Jan, Major depressive disorder, recurrent episode, unspecified severity F33.9 ; Generalized anxiety disorder F41.1 and Attention-deficit hyperactivity disorder, unspecified type F90.9 [facility] [id number] [place] [address] 64132- 2277 Jan, [facility] [id number] [place] [address] 25661- 2565 Jan, [facility] [id number] [place] [address] 34658- 1356 Jan, Major depressive disorder, recurrent episode, unspecified severity F33.9 and Generalized anxiety disorder F41.1 [facility] [id number] [place] [address] 36167- 6003 Jan, [facility] [id number] [place] [address] 31044- 0920 Dec, Hypertension I10 and Arthritis M19.90 [address] [facility] [id number] [place] [address] 76355- 8148 Dec, [facility] [id number] [place] [address] 10829- 7577 Dec, [facility] [id number] [place] [address] 63475- 5438 Dec, [facility] [address], [place] [address]- 1044 Dec, [facility] [address] 85[address] Dec, [facility] [address], [place] [address]- 6581 Dec, Major depressive disorder, recurrent episode, unspecified severity F33.9 and Generalized anxiety disorder F41.1 [facility] [address], [place] [address] 9084 Dec, Diabetes E11.9 ; Back pain M54.9 ; Thrush B37.0 and Hypertension I10 [facility] [address], [place] [address]- 7678 Dec, Major depressive disorder, recurrent episode, unspecified severity F33.9 and Generalized anxiety disorder F41.1 [facility] [address], [place] [address]- 1026 Dec, Major depressive disorder, recurrent episode, in partial or unspecified remission 296.35 ; Major depressive disorder, recurrent episode, unspecified severity F33.9 and Generalized anxiety disorder 300.02 [facility] [address], [place] [address]- 6517 Dec, [facility] [address], [place] [address]- 6964 Oct, [facility] [address], [place] [address]- 4170 Oct, [facility] [address], [place] [address]- 6008 Oct, [facility] [address], [place] [address]- 0302 Oct, [facility] [address], [place] [address]- 8453 Oct, Major depressive disorder, recurrent, moderate F33.1 and Attention-deficit hyperactivity disorder, unspecified type F90.9 [facility] [id number] [place] [address] 39265- 1945 Oct, MCC (current) use of opiate analgesic Z79.891 [facility] [id number] [place] [address] 63712- 2488 Oct, [facility] [address] 62443- 7315 Oct, [facility] [address] [address] -[address]250 Sep, URI (upper respiratory infection) J06.9 ; Psoriasis L40.9 ; Cough R05 and Tobacco abuse Z72.0 [facility] [facility] [address] 89232- 9068 Sep, Major depressive disorder, recurrent episode, in partial or unspecified remission 296.35 ; Generalized anxiety disorder 300.02 and ADHD, 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 [facility] [id number] [place] [address] 30280 -3853 Sep, Acute sinusitis, unspecified J01.90 [facility] [id number] [place] [address] 39844- 3756 Sep, [facility] [id number] [place] [address] 84222- 7161 Sep, Major depressive disorder, recurrent, moderate F33.1 ; Generalized anxiety disorder F41.1 and Attention-deficit hyperactivity disorder , combined type F90.2 [facility] [facility] [address] 70321- 6095 Sep, [facility] [id number] [place] [address] 88324- 6784 Aug, [facility] [address] 41306- 1067 Aug, [facility] [address], [place] [address]- 7501 Aug, Diabetes E11.9 and Anxiety F41.9 [facility] [id number] [place] [address] 60437- 9305 Aug, Major depressive disorder, recurrent episode, unspecified severity F33.9 and Generalized anxiety disorder F41.1 [facility] [id number] [place] [address] 89397- 9276 Aug, [facility] [address], [place] [address]- 0509 Jul, [facility] [id number] [place] [address] 32941- 3275 Jul, [facility] [id number] [place] [address] 15939- 2565 Jul, [facility] [id number] [place] [address] 92374- 0274 Jul, [facility] [address], [place] [address]- 4912 Jul, Major depressive disorder, recurrent episode, in partial or unspecified remission 296.35 ; Generalized anxiety disorder 300.02 and ADHD, 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 [facility] [address], [place] [address]- 9557 Jul, Major depressive disorder, recurrent episode, in partial or unspecified remission 296.35 ; Generalized anxiety disorder 300.02 and ADHD, 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 [facility] [address], [place] [address]- 5978 Jul, [facility] [id number] [place] [address] 70824- 2486 May, [facility] [address], [place] [address]- 9108 May, [facility] [id number] [place] [address] 91917- 9792 May, DM w/o complication type II 250.00 ; Dyspepsia 536.8 and PAD (peripheral artery disease) 443.9 [facility] [id number] [place] [address] 78921- 2820 May, Major depressive disorder, recurrent episode, moderate 296.32 and Generalized anxiety disorder 300.02 [facility] [id number] [place] [address] 20653- 2342 May, [facility] [id number] [place] [address] 99147- 3294 May, Major depressive disorder, recurrent episode, moderate 296.32 and Generalized anxiety disorder 300.02 [facility] [id number] [place] [address] 18414- 0223 May, [facility] [id number] [place] [address] 42783- 6605 Apr, [facility] [id number] [place] [address] 08160- 8266 Apr, Major depressive disorder, recurrent episode, moderate 296.32 and Generalized anxiety disorder 300.02 [facility] [id number] [place] [address] 31619- 0824 Apr, [facility] [address], [place] [address]- 2883 Apr, [facility] [id number] [place] [address] 81341- 1071 Apr, Generalized anxiety disorder 300.02 ; ADHD, 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 and Depression, major, recurrent, moderate 296.32 [facility] [id number] [place] [address] 98843- 5891 Apr, Major depressive disorder, recurrent episode, moderate 296.32 and Generalized anxiety disorder 300.02 [facility] [address], [place] [address]- 4386 Apr, [facility] [address], [place] [address]- 7579 Apr, [facility] [id number] [place] [address] 65443- 7506 Mar, [facility] [id number] [place] [address] [id number]- 0986 Mar, Major depressive disorder, recurrent episode, moderate 296.32 and Generalized anxiety disorder 300.02 [facility] [address] 83537- 7198 Mar, ADHD, 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 ; Major depressive disorder, recurrent episode, severe, without mention of psychotic behavior 296.33 and Generalized anxiety disorder 300.02 [facility] [id number] [place] [address] 33929- 0292 February, Major depressive disorder, recurrent episode, moderate 296.32 and Generalized anxiety disorder 300.02 [facility] [id number] [place] [address] 12548- 9986 February, [facility] [id number] [place] [address] 09258- 9055 February, [facility] [id number] [place] [address] 94431- 5483 February, [facility] [id number] [place] [address] 40211- 6948 February, [facility] [id number] [place] [address] 76479- 1564 February, DM w/o complication type II 250.00 ; Impacted cerumen 380.4 ; Essential hypertension, benign 401.1 and Irritable colon 564.1 [facility] [id number] [place] [address] 86268- 3558 February, [facility] [id number] [place] [address] 49375- 1422 February, [facility] [id number] [place] [address] 47104- 0135 13 Jan, 2014 [facility] [place] [facility] [address] [id number] [place] [address]- 3668 30 Dec, 2014 [facility] [place] [facility] [address] [facility] [id number] [place] [address]- 7748 30 Dec, 2014 [facility] [place] [facility] [address] [facility] [id number] [place] [address]- 1901 20 Dec, 2014 [facility] [place] [facility] [address] [facility] [id number] [place] [address]- 1860 20 Dec, 2014 [facility] [place] [facility] [address] [facility] [id number] [place] [address]- 6656 16 Dec, 2014 [facility] [place] [facility] [address] [facility] [id number] [place] [address]- 2636 16 Dec, 2014 [facility] [place] [facility] [id number] [place] [address]- 3125 10 Dec, 2014 [facility] [place] [facility] [address] [facility] [id number] [place] [address]- 2124 10 Dec, 2014 [facility] [place] [facility] [id number] [place] [address]- 9491 Dec, [facility] [place] [facility] [address] [facility] [id number] [place] [address]- 0267 Dec, [facility] [place] [facility] [address] [facility] [id number] [place] [address]- 9801 Dec, 2014 [facility] [place] [facility] [address] [facility] [id number] [place] [address]- 2360 Dec, 2014 [facility] [place] [facility] [address] [id number] [place] [address]- 1633 Dec, 2014 [facility] [place] [facility] [address] [facility] [id number] [address]- 3636 Dec, 2014 [facility] [place] [facility] [address] [facility] [id number], [place] [address]- 8097 Dec, [facility] [place] [facility] [address] [id number] [place] [address]- 7090 Dec, [facility] [place] [facility] [address] [id number] [place] [address]- 6936 Oct, [facility] [place] [facility] [address] [id number] [place] [address]- 9326 Oct, [facility] [place] [facility] [address] [id number] [place] [address]- 5071 Oct, [facility] [place] [facility] [address] [id number] [place] [address]- 6030 Oct, [facility] [place] [facility] [address] [id number] [place] [address]- 0048 Oct, [facility] [place] [facility] [address] [id number] [place] [address]- 4470 Oct, [facility] [place] [facility] [address] [id number] [place] [address]- 4128 Oct, [facility] [place] [facility] [address] [id number] [place] [address]- 8208 Oct, [facility] [place] [facility] [address] [id number] [place] [address]- 2377 Oct, [facility] [place] [facility] [address] [id number] [place] [address]- 3256 Oct, [facility] [place] [facility] [address] [id number], [place] [address]- 8901 Oct, [facility] [place] [facility] [address] [id number] [place] [address]- 5761 Sep, [facility] [place] [facility] [address] [id number] [place] [address]- 4736 Sep, [facility] [place] [facility] [address] [id number] [place] [address]- 7166 Sep, [facility] [place] [facility] [address] [id number], [place] [address]- 7003 Sep, [facility] [place] [facility] [address] [id number] [place] [address]- 9170 Sep, [facility] [place] [facility] [address] [id number] [place] [address]- 0838 Sep, [facility] [place] [facility] [address] [id number] [place] [address]- 3821 Sep, [facility] [place] [facility] [address] [id number] [place] [address]- 1798 Sep, [facility] [place] [facility] [address] [id number] [place] [address]- 4343 Aug, [facility] [place] [facility] [address] [id number] [place] [address]- 3681 Aug, [facility] [place] [facility] [address] [id number] [place] [address]- 7773 Aug, [facility] [place] [facility] [address] [id number] [place] [address]- 2008 Aug, [facility] [place] [facility] [address] [id number] [place] [address]- 2308 Aug, [facility] [place] [facility] [address] [id number] [place] [address]- 0427 Aug, [facility] [place] [facility] [address] [id number], [place] [address]- 3077 Aug, [facility] [place] [facility] [address] [id number], [place] [address]- 0726 Aug, [facility] [place] [facility] [address] [id number] [place] [address]- 6315 Aug, [facility] [place] [facility] [address] [id number] [place] [address]- 9227 Aug, [facility] [place] [facility] [address] [id number] [place] [address]- 7915 Aug, [facility] [place] [facility] [address] [id number] [place] [address]- 9117 07 Aug, 2014 [facility] [place] [facility] [address] [id number] [place] [address]- 1986 Aug, [facility] [place] [facility] [address] [id number] [place] [address]- 1996 Aug, [facility] [place] [facility] [address] [id number] [place] [address]- 4584 Jul, [facility] [place] [facility] [address] [id number] [place] [address]- 6797 Jul, [facility] [place] [facility] [address] [id number] [place] [address]- 8272 Jul, [facility] [place] [facility] [address] [id number] [place] [address]- 1620 Jul, [facility] [place] [facility] [address] [id number] [place] [address]- 4094 Jul, [facility] [place] [facility] [address] [id number] [place] [address]- 9128 Jul, [facility] [place] [facility] [address] [id number] [place] [address]- 0812 Jul, [facility] [place] [facility] [address] [id number] [place] [address]- 7198 23 Jul, 2014 [facility] [place] [facility] [address] [id number] [place] [address]- 7772 22 Jul, 2013 [facility] [place] [facility] [address] [id number] [place] [address]- 6242 22 Jul, 2013 [facility] [place] [facility] [address] [id number] [place] [address]- 3654 22 Jul, 2013 [facility] [place] [facility] [address] [id number] [place] [address]- 1051 22 Jul, 2013 [facility] [place] [facility] [address] [id number] [place] [address]- 8058 Jul, [facility] [place] [facility] [address] [id number] [place] [address]- 9802 Jul, [facility] [place] [facility] [address] [id number] [place] [address]- 8125 May, [facility] [place] [facility] [address] [id number] [place] [address]- 3330 May, [facility] [place] [facility] [address] [id number] [place] [address]- 2312 May, [facility] [place] [facility] [address] [id number] [place] [address]- 4653 May, [facility] [place] [facility] [address] [id number] [place] [address]- 3948 May, [facility] [place] [facility] [address] [id number] [place] [address]- 6420 May, [facility] [place] [facility] [address] [id number] [place] [address]- 2266 May, [facility] [place] [facility] [address] [id number] [place] [address]- 3763 May, [facility] [place] [facility] [address] [id number] [place] [address]- 9030 May, [facility] [place] [facility] [address] [id number] [place] [address]- 0007 May, [facility] [place] [facility] [address] [id number] [place] [address]- 9690 May, [facility] [place] [facility] [address] [id number] [place] [address]- 5743 May, [facility] [place] [facility] [address] [id number] [place] [address]- 5314 Apr, [facility] [place] [facility] [address] [id number] [place] [address]- 9900 Apr, [facility] [place] [facility] [address] [id number] [place] [address]- 4746 Apr, [facility] [place] [facility] [address] [id number] [place] [address]- 1036 Apr, [facility] [place] [facility] [address] [id number] [place] [address]- 6562 Apr, [facility] [place] [facility] [address] [id number] [place] [address]- 7673 Apr, [facility] [place] [facility] [address] [id number] [place] [address]- 6160 Mar, [facility] [place] [facility] [address] [id number] [place] [address]- 9672 Mar, [facility] [place] [facility] [address] [id number] [place] [address]- 3777 Mar, [facility] [place] [facility] [address] [id number] [place] [address]- 8275 Mar, [facility] [place] [facility] [address] [id number] [place] [address]- 8579 Mar, [facility] [place] [facility] [address] [id number] [place] [address]- 2847 Mar, [facility] [place] [facility] [address] [id number] [place] [address]- 1947 Mar, [facility] [place] [facility] [address] [id number] [place] [address]- 1541 Mar, [facility] [place] [facility] [address] [id number] [place] [address]- 7185 Mar, [facility] [place] [facility] [address] [id number] [place] [address]- 7808 Mar, [facility] [place] [facility] [address] [id number] [place] [address]- 9582 Mar, [facility] [place] [facility] [address] [id number] [place] [address]- 5468 Mar, [facility] [place] [facility] [address] [id number] [place] [address]- 9073 Mar, [facility] [place] [facility] [address] [id number] [place] [address]- 5710 February, [facility] [place] [facility] [address] [id number] [place] [address]- 4774 February, [facility] [place] [facility] [address] [id number] [place] [address]- 1309 February, [facility] [place] [facility] [address] [id number] [place] [address]- 0946 February, [facility] [place] [facility] [address] [id number] [place] [address]- 7089 February, [facility] [place] [facility] [address] [id number] [place] [address]- 3584 February, [facility] [place] [facility] [address] [id number] [place] [address]- 9460 February, [facility] [place] [facility] [address] [id number] [place] [address]- 9769 February, [facility] [place] [facility] [address] [id number] [place] [address]- 4569 February, [facility] [place] [facility] [address] [id number] [place] [address]- 8618 February, [facility] [place] [facility] [address] [id number] [place] [address]- 9218 February, [facility] [place] [facility] [address] [id number] [place] [address]- 6818 February, [facility] [place] [facility] [address] [id number] [place] [address]- 5210 February, [facility] [place] [facility] [address] [id number] [place] [address]- 2343 February, [facility] [place] [facility] [address] [id number] [place] [address]- 7685 Jan, [facility] [place] [facility] [address] [id number] [place] [address]- 0805 Jan, [facility] [place] [facility] [address] [id number] [place] [address]- 3600 Jan, [facility] [place] [facility] [address] [id number] [place] [address]- 0933 Jan, [facility] [place] [facility] [address] [id number] [place] [address]- 2468 Jan, [facility] [place] [facility] [address] [id number] [place] [address]- 5357 Jan, [facility] [place] [facility] [address] [id number] [place] [address]- 1471 Jan, [facility] [place] [facility] [address] [id number] [place] [address]- 2655 Jan, [facility] [place] [facility] [address] [id number] [place] [address]- 6319 Jan, [facility] [place] [facility] [address] [id number] [place] [address]- 8219 Dec, [facility] [place] [facility] [address] [id number] [place] [address]- 2090 Dec, [facility] [place] [facility] [address] [id number] [place] [address]- 3894 Dec, [facility] [place] [facility] [address] [id number] [place] [address] Dec, [facility] [place] [facility] [address] [id number] [place] [address] Dec, [facility] [place] [facility] [address] [id number] [place] [address] Dec, [facility] [place] [facility] [address] [id number] [place] [address] Dec, [facility] [place] [facility] [address] [id number] [place] [address] Dec, [facility] [place] [facility] [address] [id number] [place] [address] Dec, [facility] [place] [facility] [address] [id number] [place] [address]- [address] Dec, [facility] [place] [facility] [address] [id number] [place] [address] 14 Dec, 2013 [facility] [place] [facility] [address] [id number] [place] [address] Dec, [facility] [place] [facility] [address] [id number] [place] [address] Dec, [facility] [place] [facility] [address] [id number] [place] [address]- [address] Dec, [facility] [place] [facility] [address] [id number] [place] [address]- 254 Dec, [facility] [place] [facility] [address] [id number] [place] [address] Dec, [facility] [place] [facility] [address] [id number] [place] [address] Dec, [facility] [place] [facility] [address] [id number] [place] [address] Oct, [facility] [place] [facility] [address] [id number] [place] [address]- [address] Oct, [facility] [place] [facility] [address] [id number] [place] [address]- [address] Oct, [facility] [place] [facility] [address] [id number] [place] [address] Oct, [facility] [place] [facility] [address] [id number] [place] [address]- 254 Oct, [facility] [place] [facility] [address] [id number] [place] [address]- [address] Oct, [facility] [address] [id number] [place] [address] Oct, [facility] [place] [facility] [address] [id number] [place] [address]- [address] Oct, [facility] [place] [facility] [address] [id number] [place] [address]- [address] Oct, [facility] [place] [facility] [address] [id number] [place] [address] Oct, [facility] [place] [facility] [address] [id number] [place] [address]169 Oct, [facility] [place] [facility] [address] [id number] [place] [address]- 95[address] Oct, [facility] [place] [facility] [address] [id number] [place] [address]- [address] Oct, [facility] [place] [facility] [address] [id number] [place] [address]- [address] Oct, [facility] [place] [facility] [address] [id number] [place] [address] Sep, [facility] [place] [facility] [address] [id number] [place] [address] Sep, [facility] [place] [facility] [address] [id number] [address] Sep, [facility] [place] [facility] [address] [id number], [place] [address] 30 Sep, 2013 [facility] [place] [facility] [address] [id number] [place] [address]- [address]77 Sep, [facility] [place] [facility] [address] [id number] [place] [address] Sep, [facility] [place] [facility] [address] [id number] [place] [address]- 284[address] Sep, [facility] [place] [facility] [address] [id number] [place] [address] 27 Sep, 2012 [facility] [address] [id number] [place] [address] 27 Sep, 2012 [facility] [place] [facility] [address] [id number] [place] [address] 27 Sep, 2013 [facility] [address] [id number] [place] [address] 16 Sep, 2013 [facility] [place] [facility] [address] [id number] [place] [address] 16 Sep, 2013 [facility] [address] [id number] [place] [address]- [address] 13 Sep, 2013 [facility] [place] [facility] [address] [id number] [place] [address]- [address] 13 Sep, 2013 [facility] [address] [id number] [place] [address]- [address] 10 Sep, 2013 [facility] [place] [facility] [address] [id number] [place] [address]- [address] 10 Sep, 2013 [facility] [place] [facility] [address] [id number] [place] [address]- [address] 02 Sep, 2013 [facility] [place] [facility] [address] [facility] [id number] [place] [address] 02 Sep, 2013 [facility] [place] [facility] [address] [id number] [place] [address] 15 Aug, 2013 [facility] [facility] [address] [id number] [place] [address] 15 Aug, 2013 [facility] [place] [facility] [address] [id number] [place] [address] 16 Jul, 2013 [facility] [place] [facility] [address] [id number] [place] [address] 16 Jul, 2013 [facility] [place] [facility] [address] [id number] [place] [address] 8729 14 Jul, 2013 [facility] [place] [facility] [address] [id number] [place] [address] 59[address] 14 Jul, 2012 [facility] [place] [facility] [address] [id number] [place] [address] 4[address] 08 Jul, 2012 [facility] [place] [address] [id number] [place] [address] 7147 20 Jul, 2012 [facility] [address] [id number] [place] [address]- 9180 19 Jul, 2012 [facility] [address] [id number] [place] [address] 2143 13 Jul, 2012 [facility] [address] [id number] [place] [address]- 2626 08 Jul, 2012 [facility] [address] [id number] [place] [address]348 06 Jul, 2012 [facility] [address] [id number] [place] [address]- 9500 06 Jul, 2012 [facility] [address] [id number] [place] [address]- 2832 06 Jul, 2012 [facility] [address] [id number] [place] [address]- 4[address] 03 Jul, 2012 [facility] [address] [id number] [place] [address]- 4822 29 May, 2013 [facility] [address] [id number] [place] [address]- 5537 May, [facility] [address] [id number] [place] [address]- 9893 May, [facility] [place] [address] [id number] [place] [address]- 0219 May, [facility] [address] [id number] [place] [address]- 6[address] Apr, [facility] [address] [id number], [place] [address] Apr, [facility] [address] [id number] [place] [address]- [address]271 Apr, [facility] [address] [id number] [place] [address]- [address]123 Mar, [facility] [address] [id number] [place] [address]- 6675 Mar, [facility] [address] [id number] [place] [address]- 0786 Mar, [facility] [address] [id number] [place] [address] Mar, [facility] [address] [id number] [place] [address]- 7123 February, [facility] [address] [id number] [place] [address]- 8958 February, [facility] [address] [id number] [place] [address] 4432 Jan, [facility] [address] [id number] [place] [address]- 8533 Dec, [facility] [address] [id number] [place] [address]- 1018 Dec, [facility] [address] [id number] [place] [address]- 2965 Dec, [facility] [address] [id number] [place] [address]- 1147 Dec, [facility] [address] [id number] [place] [address]- 0555 Dec, [facility] [address] [id number] [place] [address]- 8034 Dec, [facility] [address] [id number] [place] [address]- 6473 Dec, [facility] [address] [id number] [place] [address]- 2285 25 Dec, 2012 [facility] [address] [id number] [place] [address] 9191 Dec, [facility] [address] [id number] [place] [address]- 4296 15 Dec, 2012 [facility] [address] [id number] [place] [address]- 7989 14 Dec, 2012 [facility] [address] [id number] [place] [address]- 0391 Oct, [facility] [address] [id number] [place] [address]- 5542 Oct, [facility] [address] [id number] [place] [address]- 5348 Oct, [facility] [address] [id number] [place] [address]- 0978 Oct, [facility] [address] [id number] [place] [address]- 4285 Sep, [facility] [address] [id number] [place] [address]- 1021 Sep, [facility] [address] [id number] [place] [address]- 5773 Sep, [facility] [address] [id number] [place] [address]- 9633 Sep, [facility] [address] [id number] [place] [address] Sep, [facility] [address] [id number] [place] [address] Sep, [facility] [address] [id number] [place] [address] 4974 Aug, [facility] [address] [id number] [place] [address]- 1127 Aug, [facility] [address] [id number] [place] [address]- 7502 Aug, [facility] [address] [id number] [place] [address]- 6876 Aug, [facility] [address] [id number] [place] [address]- 9877 Aug, [facility] [address] [id number] [place] [address]- 3743 Aug, [facility] [address] [id number] [place] [address] 8308 Jul, [facility] [address] [id number] [place] [address]- 4247 Jul, [facility] [address] [id number] [place] [address]- 2257 Jul, [facility] [address] [id number] [place] [address]- 2846 Jul, [facility] [address] [id number] [place] [address]- 8043 Jul, [facility] [address] [id number] [place] [address]- 3759 Jul, [facility] [address] [id number], [place] [address]1 27 Jul, 2012 [facility] [address] [id number] [place] [address]- 1507 21 Sep2011 [facility] [address] [id number] [place] [address]- 9079 20 Sep2011 [facility] [address] [id number] [place] [address]- 3058 11 Sep2011 [facility] [address] [id number] [place] [address] Jul, [facility] [address] [id number] [place] [address]- 5484 May, [facility] [address] [id number] [place] [address]- 5195 May, [facility] [address] [id number] [place] [address]- 5936 May, [facility] [address] [id number] [place] [address]- 4673 May, [facility] [address] [id number] [place] [address]- 2288 Apr, [facility] [address] [id number] [place] [address]- 6937 Apr, [facility] [address] [id number] [place] [address]- 3898 Apr, [facility] [address] [id number] [place] [address]- 3146 Apr, [facility] [address] [id number] [place] [address]- 8821 Apr, [facility] [address] [id number] [place] [address]- 0785 Apr, [facility] [address] [id number] [place] [address]- 5735 Apr, [facility] [address] [id number] [place] [address]- 2547 Apr, [facility] [address] [id number] [place] [address]- 2947 Mar, [facility] [address] [id number] [place] [address]- 2781 Mar, [facility] [address] [id number] [place] [address]- 0462 Mar, [facility] [address] [id number] [place] [address]- 7824 15 Mar, 2012 [facility] [address] [id number] [place] [address]- 6023 14 Mar, 2012 [facility] [address] [id number] [place] [address]- 2766 Mar, [facility] [address] [id number] [place] [address]- 8986 Mar, [facility] [address] [id number] [place] [address]- 3920 Mar, [facility] [address] [id number] [place] [address]- 8672 08 Mar, 2012 [facility] [address] [id number] [place] [address]- 7650 30 Feb, 2012 [facility] [address] [id number] [place] [address]- 5578 February, [facility] [address] [id number] [place] [address]- 6877 February, [facility] [address] [id number] [place] [address]- 9385 February, [facility] [address] [id number] [place] [address]- 8039 Jan, [facility] [address] [id number] [place] [address]- 7781 03 Jan, 2012 [facility] [address] [id number] [place] [address]- 1188 28 Dec, 2011 [facility] [address] [id number] [place] [address]- 5294 15 Dec, 2011 [facility] [address] [id number] [place] [address]- 2215 14 Dec, 2011 [facility] [address] [id number] [place] [address]- 7713 07 Dec, 2011 [facility] [address] [id number], [place] [address]- 1998 28 Dec, 2011 [facility] [address] [id number] [place] [address]- 2806 Dec, [facility] [address] [id number] [place] [address] 2546 Dec, [facility] [address] [id number] [place] [address] 2546 Dec, [facility] [address] [id number] [place] [address] 2546 Dec, [facility] [address] [id number] [place] [address]- 4956 Dec, [facility] [address] [id number] [place] [address]- 4016 Dec, [facility] [address] [id number] [place] [address]- 1619 Dec, [facility] [address] [id number] [place] [address]- 8103 Oct, [facility] [address] [id number] [place] [address]- 2355 Oct, [facility] [address] [id number] [place] [address]- 5574 Oct, [facility] [address] [id number] [place] [address] 2546 Oct, [facility] [address] [id number] [place] [address]- 2544 Oct, [facility] [address] [id number] [place] [address]- 6556 18 Oct, 2011 [facility] [address] [id number] [place] [address]- 4246 16 Oct, 2011 [facility] [address] [id number] [place] [address]- 6469 Oct, [facility] [address] [id number] [place] [address]- 8810 Sep, [facility] [address] [id number] [place] [address]- 2403 Sep, [facility] [address] [id number] [place] Sep, [facility] [address] [id number] [place] [address]- 9637 Aug, [facility] [address] [id number] [place] [address]- 6959 Aug, [facility] [address] [id number] [place] [address]- 3608 Aug, [facility] [address] [id number] [place] [address]- 6051 Aug, [facility] [address] [id number] [place] [address]- 5880 Aug, [facility] [address] [id number] [place] [address]- 1187 Jul, [facility] [address] [id number] [place] [address]- 7341 Jul, [facility] [address] [id number] [place] [address]- 5063 May, [facility] [address] [id number], [place] [address]- 5403 Dec, [facility] [address] [id number] [place] [address]- 5550 Oct, [facility] [address] [id number] [place] [address]- 9920 Sep, [facility] [address] [id number] [place] [address] Sep, [facility] [address] [id number] [place]- [address] Sep, IMMUNIZATIONS No Known Immunizations SOCIAL HISTORY Never Assessed REASON FOR VISIT med refill PLAN OF CARE VITAL SIGNS MEDICATIONS Medication Instructions Dosage Frequency Start Date End Date Duration Status Escitalopram Oxalate 10 mg Orally Once a day 1 [...] veinous reflux Surgical History Left Knee SOA-Dr. Melendrez-[facility] 05/19/16 Surgical History Colonoscopy- Dr Castanon 01/26/2017 Hospitalization History surgeries Hospitalization History Left Knee SOA--Dr. Melendrez--[facility] Hospitalization History Septic shock, UTI-[facility] 07/27/17 Hospitalization History Multiple falls, hyperglycemia, sepsis 07/2017 Hospitalization History Alcoholism, depression, DM, Falls-[facility] 08/23/17 Hospitalization History COPD exacerbation-[facility] 11/25/17 Hospitalization History COPD exacerbation-[facility] 11/28/17
--- OUTSIDE RECORDS SUMMARY | 2018-05-10 03:53 | XMS REPORT ---
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 Name Role Phone MARY LOUARELIS ELLE Unavailable PROBLEMS Type Condition ICD9-CM Code [id number] Code Onset Dates Condition Status SNOMED Code Problem Generalized anxiety disorder F41.1 Active 73583494 Problem Diabetes E11.9 Active 10595284 Problem Psoriasis L40.9 Active 0616461 Problem Tobacco abuse Z72.0 Active 62631809 Problem Hypertension I10 Active 28341803 Problem Back pain M54.9 Active 409711091 Problem Arthritis M19.90 Active 1904351 Problem [facility] current use of insulin Z79.4 Active 871785516 Problem Psoriatic arthritis L40.50 Active 814758130 Problem Psychophysiological insomnia F51.04 Active 32834531 Problem Other specified 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 Active 758694851 Problem Obesity (BMI 30-39.9) E66.9 Active 496780834 Problem Major depressive disorder, recurrent, moderate F33.1 Active 27680055 Problem Essential hypertension I10 Active 61052171 Problem Type 2 diabetes mellitus with hyperglycemia E11.65 Active 073677489103204 Problem Alcoholism F10.20 Active 6343352 Problem Frequent falls R29.6 Active 287372794 Problem Benzodiazepine abuse F13.10 Active 030411700 Problem PTSD (post-traumatic stress disorder) F43.10 Active 88796293 Problem Eating disorder F50.9 Active 10470809 Problem Attention-deficit hyperactivity disorder, combined type F90.2 Active 27338803 Problem COPD exacerbation J44.1 Active 022801370 Problem Anxiety F41.9 Active 89670704 Problem Decubitus ulcer of left buttock, stage 2 L89.322 Active 494146854 Problem BMI 40.0-44.9, adult Z68.41 Active 739457921 Problem Alcohol abuse F10.10 Active 37823702 Problem Pneumonia due to methicillin resistant Staphylococcus aureus, unspecified laterality, unspecified part of lung J15.212 Active 256011238284958 Problem Type 2 diabetes mellitus with unspecified complications E11.8 Active 62162318 Problem Attention-deficit hyperactivity disorder, predominantly hyperactive type F90.1 Active 640557229 Problem Type 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 Active 86228320 Problem Ulcer of right foot, unspecified ulcer stage L97.519 Active 87861067 Problem Attention deficit R41.840 Active 02728058 Problem Mental disorder, not otherwise specified F99 Active 81241034 Problem Insomnia due to other mental disorder F51.05 Active 94691211 ALLERGIES No Information ENCOUNTERS Encounter Location Date Diagnosis [facility] [address], [place] [address] February, [facility] [id number] [place] [address] 14773- 1678 February, [facility] [id number] [place] [address] 94612- 8567 Jan, [facility] [id number] [place] [address] 29090- 3762 Jan, [facility] [id number] [place] [address] 68749- 8419 Jan, [facility] [id number] [place] [address] 99733- 4291 Dec, Major depressive disorder, recurrent episode, unspecified severity F33.9 ; Generalized anxiety disorder F41.1 and Eating disorder F50.9 [facility] [id number] [place] [address] 04657- 6268 Dec, [facility] [id number] [place] [address] 36125- 6097 Dec, [facility] [id number] [place] [address] 55877- 7172 Dec, [facility] [id number] [place] [address] 06713- 7233 Dec, Increased urinary frequency R35.0 ; Frequent falls R29.6 ; Decubitus ulcer of left buttock, stage 2 L89.322 ; Benzodiazepine abuse F13.10 ; BMI 40.0-44.9, adult Z68.41 and Yeast infection B37.9 [place] [address] [place] [address] 70401- 8662 Dec, [place] [facility] [id number] [place] [address] 41712- 5269 Dec, [place] [facility] [id number] [place] [address] 73907- 0680 Dec, Increased urinary frequency R35.0 [facility] [id number] [place] [address] 99606- 2695 Dec, Increased urinary frequency R35.0 [facility] [id number] [place] [address] 31788- 4367 Dec, Generalized anxiety disorder F41.1 ; Major depressive disorder, recurrent, moderate F33.1 and Psychophysiological insomnia F51.04 [place] [address] [place] [address] 95663- 9878 Dec, BMI 40.0-44.9, adult Z68.41 ; Type 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 ; Pneumonia due to methicillin resistant Staphylococcus aureus, unspecified laterality, unspecified part of lung J15.212 and COPD exacerbation J44.1 [facility] [address], [place] [address] Dec, [facility] [id number] [place] [address] [id number] Dec, [place] [id number] [place] [address] [id number] Oct, [facility] [address] [place] [address] 05319 -6377 Oct, Frequency of urination R35.0 ; Bronchitis J40 and BMI 40.0- 44.9, adult Z68.41 [place] [id number] [place] [address] [id number] Oct, [place] [address] [place] [address] 87616- 3001 Oct, [place] [id number] [place] [address] 40364- 5001 Oct, BMI 40.0-44.9, adult Z68.41 ; Type 2 diabetes mellitus with hyperglycemia E11.65 ; Essential hypertension I10 ; Vaginal yeast infection B37.3 ; Anxiety F41.9 and Alcoholism F10.20 [place] [facility] [id number] [place] [address] 51311- 4806 Oct, [place] [facility] [id number] [place] [address] 31535- 1089 Oct, [place] [facility] [id number] [place] [address] 46555- 5426 Sep, [place] [id number] [place] [address] 31560- 7581 Sep, Major depressive disorder, recurrent episode, unspecified severity F33.9 ; Generalized anxiety disorder F41.1 and Eating disorder F50.[address] [place] [address] 73690- 8187 Sep, Major depressive disorder, recurrent, moderate F33.1 ; Type 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 ; Alcohol abuse F10.10 ; Obesity (BMI 30-39.9) E66.9 and Psychophysiological insomnia F51.04 [place] [address] [place] [address] 27542- 6845 06 Sep, 2017 Diabetes E11.9 and Generalized anxiety disorder F41.1 [place] [id number] [place] [address] 18257- 3430 05 Sep, 2017 Major depressive disorder, recurrent episode, unspecified severity F33.9 ; Generalized anxiety disorder F41.1 and Eating disorder F50.9 [address] [id number] [place] [address] 90475- 3538 Sep, [place] [address] [place] [address] 84508- 0136 Aug, [place] [id number] [place] [address] 02931- 2757 Aug, Insomnia due to other mental disorder F51.05 ; Mental disorder, not otherwise specified F99 ; Attention deficit R41.840 ; Ulcer of right foot, unspecified ulcer stage L97.519 ; Cough R05 ; Diabetes E11.9 ; Sore in mouth K13.79 ; Generalized anxiety disorder F41.1 ; Major depressive disorder , recurrent episode, unspecified severity F33.9 and BMI 40.0-44.9, adult Z68.41 [place] [address] [place] [address] 30608- 2134 Aug, [place] [id number] [place] [address] 35106- 8894 Aug, [place] [id number] [place] [address] 90233- 8436 Aug, [place] [address] [place] [address] 05281- 2218 Aug, [place] [address] [place] [address] 67812- 0276 Aug, Diabetes E11.9 [facility] [address] [facility] [place] [id number] Aug, Falling R29.6 ; Alcohol abuse F10.10 ; Major depressive disorder, recurrent episode, unspecified severity F33.9 ; Hypertension I10 ; Type 2 diabetes mellitus with unspecified complications E11.8 and [facility] current use of insulin Z79.4 [place] [id number] [place] [address] [id number] [phone] Aug, 2017 [facility] [facility] [address] [place] [id number] Aug, Alcohol abuse F10.10 ; Major depressive disorder, recurrent episode, unspecified severity F33.9 ; Generalized anxiety disorder F41.1 ; 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 ; Psoriatic arthritis L40.50 and Diabetes E11.9 [facility] [id number] [place] [address] [id number] Aug, [facility] [id number] [place] [address] [id number] Jul, [facility] [id number] [place] [address] 82139- 5708 Jul, [facility] [id number] [place] [address] 37642- 6020 Jul, Generalized anxiety disorder F41.1 [facility] [id number] [place] [address] 62686- 1497 Jul, [facility] [id number] [place] [address] 37482- 4875 Jul, [facility] [id number] [place] [address] 44444- 0611 Jul, Generalized anxiety disorder F41.1 ; Major depressive disorder, recurrent episode, unspecified severity F33.9 ; PTSD (post-traumatic stress disorder) F43.10 ; Eating disorder F50.9 and Attention-deficit hyperactivity disorder, predominantly hyperactive type F90.1 [facility] [address], [place] [address]- 7048 Jul, [facility] [id number] [place] [address] 27977- 4391 Jul, [facility] [address] [place] [address] 44938- 9233 Jul, [facility] current use of insulin Z79.4 ; Type 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 ; Urinary tract infection, site not specified N39.0 ; Sepsis, unspecified organism A41.9 and Essential hypertension I10 [facility] [id number] [id number] Jul, [facility] [id number] [address] Jul, [facility] [address], [place] [address]- 5303 Jul, Generalized anxiety disorder F41.1 [facility] [id number] [place] [address] 07801- 1974 15 Jul, 2017 [facility] [id number] [place] [address] 41821- 9431 Jul, Generalized anxiety disorder F41.1 [facility] [address] [place] [address] 91876- 0185 May, Generalized anxiety disorder F41.1 ; Major depressive disorder, recurrent episode, unspecified severity F33.9 ; PTSD (post-traumatic stress disorder) F43.10 ; Eating disorder F50.9 and Attention-deficit hyperactivity disorder, predominantly hyperactive type F90.1 [facility] [id number] [place] [address] 42720- 9348 May, Diabetes E11.9 [facility] [address] [place] [address] 80008 -8937 May, Acute non-recurrent maxillary sinusitis J01.00 and Diabetes E11.9 [facility] [address], [place] [address]- 5852 May, [facility] [address], [place] [address]- 4675 May, [facility] [id number] [place] [address] 51134- 0693 May, Generalized anxiety disorder F41.1 [facility] [address], [place] [address]- 9881 Apr, [facility] [id number] [place] [address] 33419- 2083 Apr, [facility] [address], [place] [address]- 3840 Apr, [address] [place] [address] 72953- 1735 Apr, Generalized anxiety disorder F41.1 ; Major depressive disorder, recurrent episode, unspecified severity F33.9 ; PTSD (post-traumatic stress disorder) F43.10 ; Eating disorder F50.9 and Attention-deficit hyperactivity disorder, predominantly hyperactive type F90.1 [place] [id number] [place] [address] 62641- 3043 Apr, Major depressive disorder, recurrent, moderate F33.1 [place] [id number] [place] [address] 77834- 6941 Mar, Diabetes E11.[address] 87420- 7608 Mar, Attention-deficit hyperactivity disorder, combined type F90.2 [place] [id number] [place] [address] 29221- 6827 Mar, [place] [id number] [place] [address] 09594- 1903 Mar, Diabetes E11.[address] 51797- 5414 Mar, [facility] current use of insulin Z79.4 ; Psoriatic arthritis L40.50 ; Other specified 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 and Hypertension I10 [place] [id number] [place] [address] 96073- 3647 February, Back pain M54.9 [place] [id number] [place] [address] 60461- 2321 February, Attention-deficit hyperactivity disorder, combined type F90.2 [place] [id number] [place] [address] 87055- 4709 February, Major depressive disorder, recurrent episode, unspecified severity F33.9 and Generalized anxiety disorder F41.1 [place] [id number] [place] [address] 15117- 7178 Jan, Attention-deficit hyperactivity disorder, combined type F90.2 [facility] [id number] [place] [address] 44265- 8684 Jan, Major depressive disorder, recurrent, moderate F33.1 ; Generalized anxiety disorder F41.1 and Attention-deficit hyperactivity disorder , combined type F90.2 [place] [id number] [place] [address] 47604- 8326 Dec, Major depressive disorder, recurrent episode, unspecified severity F33.9 ; Generalized anxiety disorder F41.1 and Attention-deficit hyperactivity disorder, predominantly hyperactive type F90.1 [place] [address] 31074- 8898 Dec, Major depressive disorder, recurrent episode, unspecified severity F33.9 and Generalized anxiety disorder F41.1 [place] [address] 70547- 0488 Dec, [place] [address] 03549- 4364 Dec, [place] [address] 20652- 9401 Dec, Major depressive disorder, recurrent episode, unspecified severity F33.9 and Generalized anxiety disorder F41.1 [place] [id number] [place] [address] 69679- 4464 Dec, Back pain M54.9 [place] [id number] [place] [address] 30061- 1321 17 Dec, 2016 Eustachian tube dysfunction, right H69.81 and Arthritis M19.90 [place] [address] 09629- 4322 Dec, [place] [id number] [place] [address] 37898- 4540 Dec, [facility] [address] 89242- 7090 Dec, Major depressive disorder, recurrent episode, unspecified severity F33.9 [place] [address] [place] [address] 07913- 7589 Oct, [facility] [id number] [place] [address] 55187 -6502 Oct, Acute non-recurrent pansinusitis J01.40 and Sore throat J02.9 [place] [id number] [place] [address] 22927- 9523 Oct, Major depressive disorder, recurrent episode, unspecified severity F33.9 [place] [id number] [place] [address] 88310- 8426 Oct, Major depressive disorder, recurrent episode, unspecified severity F33.9 and Generalized anxiety disorder F41.1 [place] [id number] [place] [address] 95629- 2268 Sep, [place] [id number] [place] [address] 33631- 2433 Sep, Major depressive disorder, recurrent episode, unspecified severity F33.9 [place] [id number] [place] [address] 36530- 2375 Sep, Major depressive disorder, recurrent episode, unspecified severity F33.9 [facility] [address] [place] [address] 89091 -3386 Sep, Sore throat J02.9 [place] [id number] [place] [address] 07139- 6528 15 Sep, 2016 Generalized anxiety disorder F41.1 ; Major depressive disorder, recurrent episode, unspecified severity F33.9 and Attention-deficit hyperactivity disorder, predominantly hyperactive type F90.1 [place] [address] [place] [address] 83736- 5343 08 Sep, 2016 Major depressive disorder, recurrent episode, unspecified severity F33.9 and Generalized anxiety disorder F41.1 [place] [id number] [place] [address] 30701- 3380 Sep, Psoriatic arthritis L40.50 [place] [id number] [place] [address] 87470- 7433 Sep, Diabetes E11.9 ; 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 ; Back pain M54.9 and Encounter for immunization Z23 [place] [id number] [place] [address] 84618- 5343 Aug, [place] [id number] [place] [address] 22906- 1966 Aug, [place] [id number] [place] [address] 62216- 1049 Jul, Major depressive disorder, recurrent episode, unspecified severity F33.9 ; Attention-deficit hyperactivity disorder, predominantly hyperactive type F90.1 and Generalized anxiety disorder F41.1 [place] [id number] [place] [address] 28238- 4873 Jul, [place] [id number] [place] [address] 17694- 7380 22 Jul, 2016 Major depressive disorder, recurrent, in partial remission F33.41 and Generalized anxiety disorder F41.1 [place] [id number] [place] [address] 55069- 9342 Jul, [place] [id number] [place] [address] 45119- 1549 19 Jul, 2016 [place] [id number] [place] [address] 37810- 6940 Jul, [place] [id number] [place] [address] 64142- 6259 Jul, [place] [id number] [place] [address] 03834- 0488 Jul, Diabetes E11.9 [place] [id number] [place] [address] 18746- 5710 May, [facility] [address], [place] [address]- 4329 May, [facility] [id number] [place] [address] 88118- 6777 May, [facility] [id number] [place] [address] 03404- 7632 May, Major depressive disorder, recurrent episode, unspecified severity F33.9 ; Generalized anxiety disorder F41.1 and Attention-deficit hyperactivity disorder, predominantly hyperactive type F90.1 [facility] [id number] [place] [address] 48258- 7144 May, [facility] [id number] [place] [address] 99858- 6713 May, Diabetes E11.9 [facility] [id number] [place] [address] 15861- 9437 May, [facility] [id number] [place] [address] 17177- 8043 May, [facility] [address] [place] [id number] May, Diabetes E11.9 ; Generalized anxiety disorder F41.1 and Nausea R11.0 [facility] [address], [place] [address]- 8474 May, Psoriatic arthritis L40.50 and Candidiasis of female genitalia B37.3 [facility] [address] [place] [address] 02823- 3768 May, [facility] [id number] [place] [address] 04216- 7690 Apr, [facility] [id number] [place] [address] 94794- 6972 Apr, [facility] [address], [place] [address]- 8148 Apr, [facility] [address] [address]- 8875 Apr, Generalized anxiety disorder F41.1 ; Major depressive disorder, recurrent episode, unspecified severity F33.9 and Attention-deficit hyperactivity disorder, predominantly hyperactive type F90.1 [facility] [address], [place] [address]- 1530 Apr, [facility] [id number] [place] [address] 24497- 8944 Apr, [facility] [id number] [place] [address] 73304- 4046 Apr, [facility] [id number] [place] [address] 34654- 6206 Apr, [facility] [id number] [place] [address] 87133- 1662 Apr, [facility] [id number] [place] [address] 85282- 7701 Mar, Attention-deficit hyperactivity disorder, predominantly hyperactive type F90.1 [facility] [address] [place] [address] 44181- 3358 Mar, [facility] [id number] [place] [address] [id number]- [id number] Mar, [facility] [id number], [place] [address] Mar, Major depressive disorder, recurrent episode, unspecified severity F33.9 and Generalized anxiety disorder F41.1 [facility] [id number] [place] [id number]- [id number] February, Diabetes E11.[address] [facility] [id number], [place] [address] February, OME (otitis media with effusion), bilateral H65.93 [facility] [id number], [place] [address] February, Back pain M54.9 [facility] [id number], [place] [address] February, [facility] [id number] [place] [address] [id number]- [id number] February, Nausea R11.0 [facility] [address] [id number] [place] [address] 56995- 6426 February, [facility] [id number] [place] [address] 29220- 7475 February, Pre-op evaluation Z01.818 ; Type 2 diabetes mellitus with hyperglycemia E11.65 and 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 [facility] [id number] [place] [address] 92252- 3122 February, [facility] [id number] [place] [address] 45699 -7911 February, Right otitis externa H60.91 [facility] [id number] [place] [address] 58482- 1005 Jan, [facility] [id number] [place] [address] 00617- 0681 Jan, Psoriatic arthritis L40.50 and Arthralgia, unspecified joint M25.50 [facility] [address], [place] [address] Jan, Major depressive disorder, recurrent episode, unspecified severity F33.9 ; Generalized anxiety disorder F41.1 and Attention-deficit hyperactivity disorder, unspecified type F90.9 [facility] [address], [place] [address] 5041 Jan, [facility] [id number] [place] [address] 14828- 6220 Jan, [facility] [address], [place] [address]- 7004 Jan, Major depressive disorder, recurrent episode, unspecified severity F33.9 and Generalized anxiety disorder F41.1 [facility] [address], [place] [address] 7149 05 Jan, 2016 [facility] [id number] [place] [address] 96193- 2670 Dec, Hypertension I10 and Arthritis M19.90 [facility] [id number] [place] [address] 42016- 0433 Dec, [facility] [id number] [place] [address] 82479- 7791 Dec, [facility] [id number] [place] [address] 27234- 6838 Dec, [facility] [id number] [place] [address] 97575- 4374 Dec, [facility] [id number] [place] [address] 73214- 1638 Dec, [facility] [id number] [place] [address] 11430- 6079 Dec, Major depressive disorder, recurrent episode, unspecified severity F33.9 and Generalized anxiety disorder F41.1 [facility] [id number] [place] [address] 42499- 4638 Dec, Diabetes E11.9 ; Back pain M54.9 ; Thrush B37.0 and Hypertension I10 [facility] [id number] [place] [address] 12850- 0602 Dec, Major depressive disorder, recurrent episode, unspecified severity F33.9 and Generalized anxiety disorder F41.1 [facility] [id number] [place] [address] 08315- 5314 04 Dec, 2015 Major depressive disorder, recurrent episode, in partial or unspecified remission 296.35 ; Major depressive disorder, recurrent episode, unspecified severity F33.9 and Generalized anxiety disorder 300.02 [facility] [id number] [place] [address] 58845- 8132 Dec, [facility] [id number] [place] [address] 80584- 7304 Oct, [facility] [id number] [place] [address] 85063- 8419 Oct, [facility] [id number] [place] [address] 33420- 9486 Oct, [facility] [address] 80791- 1090 Oct, [facility] [id number] [place] [address] 19699- 4397 Oct, Major depressive disorder, recurrent, moderate F33.1 and Attention-deficit hyperactivity disorder, unspecified type F90.9 [facility] [address] 57265- 3086 Oct, [facility] (current) use of opiate analgesic Z79.891 [facility] [id number] [place] [address] 52969- 0768 Oct, [facility] [id number] [place] [address] 85321- 6152 Oct, [facility] [id number] [place] [address] 64865 -6457 Sep, URI (upper respiratory infection) J06.9 ; Psoriasis L40.9 ; Cough R05 and Tobacco abuse Z72.0 [facility] [id number] [place] [address] 89337- 2546 Sep, Major depressive disorder, recurrent episode, in partial or unspecified remission 296.35 ; Generalized anxiety disorder 300.02 and ADHD, 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 [facility] [id number] [place] [address] 78114 -1592 Sep, Acute sinusitis, unspecified J01.90 [facility] [id number] [place] [address] 42440- 5148 Sep, [facility] [id number] [place] [address] 48213- 3597 Sep, Major depressive disorder, recurrent, moderate F33.1 ; Generalized anxiety disorder F41.1 and Attention-deficit hyperactivity disorder , combined type F90.2 [facility] [id number] [place] [address] 46940- 5871 Sep, [facility] [id number] [place] [address] 99689- 5498 Aug, [facility] [id number] [place] [address] 29314- 5358 Aug, [facility] [id number] [place] [address] 32865- 8115 Aug, Diabetes E11.9 and Anxiety F41.9 [facility] [id number] [place] [address] 98636- 6514 Aug, Major depressive disorder, recurrent episode, unspecified severity F33.9 and Generalized anxiety disorder F41.1 [facility] [id number] [place] [address] 48124- 1831 Aug, [facility] [id number] [place] [address] 90327- 2672 Jul, [facility] [id number] [place] [address] 58889- 3049 Jul, [facility] [id number] [place] [address] 57148- 5734 Jul, [facility] [id number] [place] [address] 75196- 8830 Jul, [facility] [id number] [place] [address] 94350- 0514 Jul, Major depressive disorder, recurrent episode, in partial or unspecified remission 296.35 ; Generalized anxiety disorder 300.02 and ADHD, 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 [facility] [id number] [place] [address] 08178- 0602 Jul, Major depressive disorder, recurrent episode, in partial or unspecified remission 296.35 ; Generalized anxiety disorder 300.02 and ADHD, 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 [facility] [id number] [place] [address] 60680- 0137 Jul, [facility] [id number] [place] [address] 25197- 3373 May, [facility] [id number] [place] [address] 25429- 4263 May, [facility] [id number] [place] [address] 51949- 4506 May, DM w/o complication type II 250.00 ; Dyspepsia 536.8 and PAD (peripheral artery disease) 443.9 [facility] [id number] [place] [address] 78229- 1114 May, Major depressive disorder, recurrent episode, moderate 296.32 and Generalized anxiety disorder 300.02 [facility] [id number] [place] [address] 35208- 0356 May, [facility] [id number] [place] [address] 05442- 2101 May, Major depressive disorder, recurrent episode, moderate 296.32 and Generalized anxiety disorder 300.02 [facility] [id number] [place] [address] 72395- 2139 May, [facility] [id number] [place] [address] 71658- 5125 Apr, [facility] [id number] [place] [address] 85778- 4129 Apr, Major depressive disorder, recurrent episode, moderate 296.32 and Generalized anxiety disorder 300.02 [facility] [id number] [place] [address] 01886- 5678 Apr, [facility] [id number] [place] [address] 52136- 5674 Apr, [facility] [address], [place] [address]- 1481 Apr, Generalized anxiety disorder 300.02 ; ADHD, 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 and Depression, major, recurrent, moderate 296.32 [facility] [address], [place] [address]- 1884 Apr, Major depressive disorder, recurrent episode, moderate 296.32 and Generalized anxiety disorder 300.02 [facility] [address], [place] [address]- 7579 Apr, [facility] [id number] [place] [address] 14349- 2896 Apr, [facility] [id number] [place] [address] 63416- 0191 Mar, [facility] [id number] [place] [address] 92135- 4919 Mar, Major depressive disorder, recurrent episode, moderate 296.32 and Generalized anxiety disorder 300.02 [facility] [address] [place] [address] 31764- 2199 Mar, ADHD, 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 ; Major depressive disorder, recurrent episode, severe, without mention of psychotic behavior 296.33 and Generalized anxiety disorder 300.02 [facility] [address], [place] [address]- 3742 February, Major depressive disorder, recurrent episode, moderate 296.32 and Generalized anxiety disorder 300.02 [facility] [address], [place] [address]- 6742 February, [facility] [id number] [place] [address] 22538- 3753 February, [facility] [address], [place] [address]- 4845 February, [facility] [id number] [place] [address] 04608- 2713 February, [facility] [address] [facility] [id number] [address]- 5145 February, DM w/o complication type II 250.00 ; Impacted cerumen 380.4 ; Essential hypertension, benign 401.1 and Irritable colon 564.1 [facility] [id number], [place] [address]- 7785 February, [facility] [address] [facility] [id number] [address]- 7537 February, [facility] [address], [place] [address]- 7690 Jan, [facility] [id number], [place] [address]- 6053 Dec, [facility] [id number], [place] [address]- 4260 Dec, [facility] [address], [place] [address]- 3686 Dec, [facility] [id number], [place] [address]- 7927 Dec, [facility] [address], [place] [address]- 2826 Dec, [facility] [address], [place] [address]- 7751 Dec, [facility] [id number], [place] [address]- 8821 Dec, [facility] [id number], [place] [address]- 1268 Dec, [facility] [address]- 4629 Dec, [facility] [address]- 6310 Dec, [facility] [place] [facility] [address] [id number] [place] [address]- 8050 Dec, 2014 [facility] [place] [facility] [address] [id number] [place] [address]- 6382 Dec, 2014 [facility] [place] [facility] [address] [id number] [place] [address]- 2017 Dec, 2014 [facility] [place] [facility] [address] [id number] [place] [address]- 2399 Dec, 2014 [facility] [place] [facility] [address] [id number] [place] [address]- 2675 Dec, [facility] [place] [facility] [address] [id number] [place] [address]- 3078 Dec, [facility] [place] [facility] [address] [id number] [place] [address]- 3883 Oct, [facility] [place] [facility] [address] [id number] [place] [address]- 3221 Oct, [facility] [place] [facility] [address] [id number] [place] [address]- 9192 Oct, [facility] [place] [facility] [address] [id number] [place] [address]- 4671 Oct, [facility] [place] [facility] [address] [id number] [place] [address]- 6239 Oct, [facility] [place] [facility] [address] [id number], [place] [address]- 0859 Oct, [facility] [place] [facility] [address] [id number] [place] [address]- 9258 Oct, [facility] [place] [facility] [address] [id number] [place] [address]- 5752 Oct, [facility] [place] [facility] [address] [id number] [place] [address]- 5448 Oct, [facility] [place] [facility] [address] [id number], [place] [address]- 5220 Oct, [facility] [place] [facility] [address] [id number] [place] [address]- 7827 Oct, [facility] [place] [facility] [address] [id number] [place] [address]- 5599 Sep, [facility] [place] [facility] [address] [id number] [place] [address]- 6634 Sep, [facility] [place] [facility] [address] [id number] [place] [address]- 9452 Sep, [facility] [place] [facility] [address] [id number] [place] [address]- 4105 Sep, [facility] [place] [facility] [address] [id number] [place] [address]- 5452 Sep, [facility] [place] [facility] [address] [id number] [place] [address]- 2585 Sep, [facility] [place] [facility] [address] [id number] [place] [address]- 1581 Sep, [facility] [place] [facility] [address] [id number] [place] [address]- 3453 Sep, [facility] [place] [facility] [address] [id number] [place] [address]- 3390 Aug, [facility] [place] [facility] [address] [id number] [place] [address]- 8842 Aug, [facility] [place] [facility] [address] [id number] [place] [address]- 8202 Aug, [facility] [place] [facility] [address] [id number] [place] [address]- 9177 Aug, [facility] [place] [facility] [address] [id number] [place] [address]- 5142 Aug, [facility] [place] [facility] [address] [id number] [place] [address]- 6262 Aug, [facility] [place] [facility] [address] [id number] [place] [address]- 8925 Aug, [facility] [place] [facility] [address] [id number] [place] [address]- 7911 Aug, [facility] [place] [facility] [address] [id number] [place] [address]- 4166 Aug, [facility] [place] [facility] [address] [id number] [place] [address]- 5100 Aug, [facility] [place] [facility] [address] [id number] [place] [address]- 4710 Aug, [facility] [place] [facility] [address] [id number] [place] [address]- 8295 Aug, [facility] [place] [facility] [address] [id number] [place] [address]- 3610 Aug, [facility] [place] [facility] [address] [id number] [place] [address]- 2524 Aug, [facility] [place] [facility] [address] [id number] [place] [address]- 0751 Jul, [facility] [place] [facility] [address] [id number] [place] [address]- 7408 Jul, [facility] [place] [facility] [address] [id number] [place] [address]- 5687 Jul, [facility] [place] [facility] [address] [id number] [place] [address]- 7873 Jul, [facility] [place] [facility] [address] [id number] [place] [address]- 1294 Jul, [facility] [place] [facility] [address] [id number] [place] 4414 Jul, [facility] [place] [facility] [address] [id number] [place] [address]- 9147 Jul, [facility] [place] [facility] [address] [id number] [place] [address]- 3256 Jul, [facility] [place] [facility] [address] [id number] [place] [address]- 4336 Jul, [facility] [place] [facility] [address] [id number] [place] [address]- 3892 Jul, [facility] [place] [facility] [address] [id number] [place] [address]- 7770 Jul, [facility] [place] [facility] [address] [id number] [place] [address]- 3804 Jul, [facility] [place] [facility] [address] [id number] [place] [address]- 7527 Jul, [facility] [place] [facility] [address] [id number] [place] [address]- 5639 Jul, [facility] [place] [facility] [address] [id number] [place] [address]- 1351 May, [facility] [place] [facility] [address] [id number] [place] [address]- 2083 May, [facility] [place] [facility] [address] [id number] [place] [address]- 9712 May, [facility] [place] [facility] [address] [id number] [place] [address]- 6304 May, [facility] [place] [facility] [address] [id number] [place] [address]- 0396 May, [facility] [place] [facility] [address] [id number] [place] [address]- 6425 May, [facility] [place] [facility] [address] [id number] [place] [address]- 3076 May, [facility] [place] [facility] [address] [id number] [place] [address]- 0150 May, [facility] [place] [facility] [address] [id number] [place] [address]- 5109 May, [facility] [place] [facility] [address] [id number] [place] [address]- 5031 May, [facility] [place] [facility] [address] [id number] [place] [address]- 9401 May, [facility] [place] [facility] [address] [id number] [place] [address]- 6966 May, [facility] [place] [facility] [address] [id number] [place] [address]- 7207 Apr, [facility] [place] [facility] [address] [id number] [place] [address]- 5248 Apr, [facility] [place] [facility] [address] [id number] [place] [address]- 8611 Apr, [facility] [place] [facility] [address] [id number] [place] [address]- 2344 Apr, [facility] [place] [facility] [address] [id number] [place] [address]- 0834 Apr, [facility] [place] [facility] [address] [id number] [place] [address] Apr, [facility] [place] [facility] [address] [id number] [place] [address] Mar, [facility] [place] [facility] [address] [id number] [place] [address] Mar, [facility] [place] [facility] [address] [id number] [place] [address] Mar, [facility] [place] [facility] [address] [id number] [place] [address] Mar, [facility] [place] [facility] [address] [id number] [place] [address] Mar, [facility] [place] [facility] [address] [id number] [place] [address] Mar, [facility] [place] [facility] [address] [id number] [place] [address] Mar, [facility] [place] [facility] [address] [id number] [place] [address]- [address] Mar, [facility] [place] [facility] [address] [id number] [place] [address] Mar, [facility] [place] [facility] [address] [id number] [place] [address] Mar, [facility] [place] [facility] [address] [id number] [place] [address]- [address] Mar, [facility] [place] [facility] [address] [id number] [place] [address] Mar, [facility] [place] [facility] [address] [id number] [place] [address] Mar, [facility] [place] [facility] [address] [id number] [place] [address] February, [facility] [place] [facility] [address] [id number] [place] [address] February, [facility] [place] [facility] [address] [id number] [place] [address]- [address] February, [facility] [place] [facility] [address] [id number] [place] [address]- [address] February, [facility] [place] [facility] [address] [id number] [place] [address]- [address] February, [facility] [place] [facility] [address] [id number] [place] [address] February, [facility] [place] [facility] [address] [id number] [place] [address]- [address] February, [facility] [place] [facility] [address] [id number] [place] [address]- [address] February, [facility] [place] [facility] [address] [id number] [place] [address]- [address] February, [facility] [place] [facility] [address] [id number] [place] [address] February, [facility] [place] [facility] [address] [id number] [place] [address]- [address] February, [facility] [place] [facility] [address] [id number] [place] [address] February, [facility] [place] [facility] [address] [id number] [place] [address]- [address] February, [facility] [place] [facility] [address] [id number] [place] [address] February, [facility] [place] [facility] [address] [id number] [place] [address] Jan, [facility] [place] [facility] [address] [id number] [place] [address]- [address] Jan, [facility] [place] [facility] [address] [id number] [place] [address]- [address] Jan, [facility] [place] [facility] [address] [id number] [place] [address]- [address] Jan, [facility] [place] [facility] [address] [id number] [place] [address]- [address] Jan, [facility] [place] [facility] [address] [id number] [place] [address] Jan, [facility] [place] [facility] [address] [id number] [place] [address]- [address] Jan, [facility] [place] [facility] [address] [id number] [place] [address]- [address]16 Jan, [facility] [place] [facility] [address] [id number] [place] [address] Jan, [facility] [place] [facility] [address] [id number] [place] [address] Dec, [facility] [place] [facility] [address] [id number] [place] [address] Dec, [facility] [place] [facility] [address] [id number] [place] [address]- [address] Dec, [facility] [place] [facility] [address] [id number] [place] [address]- [address] Dec, [facility] [place] [facility] [address] [id number] [place] [address]- [address] Dec, [facility] [place] [facility] [address] [id number] [place] [address]- [address] Dec, [facility] [place] [facility] [address] [id number] [place] [address]- [address] Dec, [facility] [place] [facility] [address] [id number] [place] [address]- [address] Dec, [facility] [place] [facility] [address] [id number] [place] [address] Dec, [facility] [place] [facility] [address] [id number] [place] [address] Dec, [facility] [place] [facility] [address] [id number] [place] [address]- 9685 14 Dec, 2013 [facility] [place] [facility] [address] [id number] [place] [address] 4[address] Dec, [facility] [place] [facility] [address] [facility] [id number] [place] [address]- 1420 Dec, [facility] [place] [facility] [address] [id number] [place] [address]- 7225 10 Dec, 2013 [facility] [place] [facility] [address] [id number] [place] [address]- 5583 10 Dec, 2013 [facility] [place] [facility] [address] [id number] [place] [address] 06 Dec, 2013 [facility] [place] [facility] [address] [id number] [place] [address] 06 Dec, 2013 [facility] [place] [facility] [address] [id number] [place] [address]- [address]2 Oct, [facility] [place] [facility] [address] [id number] [place] [address]- 1255 Oct, [facility] [place] [facility] [address] [id number] [place] [address]- 7146 Oct, [facility] [place] [facility] [address] [id number] [place] [address]- 5265 Oct, [facility] [place] [facility] [address] [id number] [place] [address]- 8446 Oct, [facility] [place] [facility] [address] [id number] [place] [address]- 1592 Oct, [facility] [place] [facility] [address] [id number] [place] [address]- 9302 Oct, [facility] [place] [facility] [address] [id number] [place] [address]- 3148 Oct, [facility] [place] [facility] [address] [id number] [place] [address]- 3120 Oct, [facility] [place] [facility] [address] [id number] [place] [address]- 3610 Oct, [facility] [place] [facility] [address] [id number] [place] [address]- 2466 Oct, [facility] [place] [facility] [address] [id number], [place] [address]- 1145 Oct, [facility] [place] [facility] [address] [id number], [place] [address] 6[address] Oct, [facility] [place] [facility] [address] [id number] [place] [address]- 7629 Oct, [facility] [place] [facility] [address] [id number] [place] [address]- 3459 Sep, [facility] [place] [facility] [address] [id number] [place] [address]- 8749 Sep, [facility] [place] [facility] [address] [id number] [place] [address]- 5876 30 Sep, 2012 [facility] [address] [id number] [place] [address]- 7126 30 Sep, 2012 [facility] [address] [id number] [place] [address]- 2486 27 Sep, 2013 [facility] [address] [id number] [place] [address]- 8146 27 Sep, 2012 [facility] [place] [facility] [address] [id number] [place] [address]- 0636 27 Sep, 2013 [facility] [address] [id number] [place] [address]- 6965 Sep, [facility] [address] [id number] [place] [address]- 1215 Sep, [facility] [address] [id number] [place] [address]- 4175 Sep, [facility] [address] [id number] [place] [address]- 1346 16 Sep, 2013 [facility] [address] [id number] [place] [address]- 5826 16 Sep, 2013 [facility] [address] [id number] [place] [address]- 8478 13 Sep, 2013 [facility] [place] [facility] [address] [id number] [place] [address]- 0026 13 Sep, 2013 [facility] [place] [facility] [address] [id number] [place] [address] 2546 10 Sep, 2013 [facility] [place] [facility] [address] [id number] [place] [address]- 2346 10 Sep, 2013 [facility] [place] [facility] [address] [id number] [place] [address] 02 Sep, 2013 [facility] [place] [facility] [address] [id number] [place] [address]- 4248 Sep, [facility] [place] [facility] [address] [id number] [place] [address]- 9371 15 Aug, 2013 [facility] [place] [facility] [address] [id number] [place] [address]- 2602 15 Aug, 2013 [facility] [place] [facility] [address] [id number] [place] [address]- 4888 16 Jul, 2013 [facility] [place] [facility] [address] [id number] [place] [address]- 5060 16 Jul, 2013 [facility] [address] [id number] [place] [address]- 6590 14 Jul, 2013 [facility] [place] [facility] [address] [id number] [place] [address]- 6742 14 Jul, 2013 [facility] [address] [id number] [place] [address]- 1577 08 Jul, 2013 [facility] [place] [facility] [address] [id number] [place] [address]- 1631 20 Jul, 2012 [facility] [place] [facility] [address] [id number] [place] [address]- 8863 19 Sep, 2012 [facility] [place] [facility] [address] [id number] [place] [address]- 8475 13 Jul, 2012 [facility] [place] [facility] [address] [id number] [place] [address]- 8748 08 Sep, 2012 [facility] [place] [facility] [address] [id number], [place] [address]- 2545 06 Sep, 2012 [facility] [place] [facility] [address] [id number] [place] [address]- 254 06 Sep, 2012 [facility] [place] [facility] [address] [id number] [place] [address]- 2545 06 Sep, 2012 [facility] [place] [facility] [address] [id number] [place] [address]- 0456 03 Sep, 2012 [facility] [place] [facility] [address] [id number] [place] [address]- 1041 May, [facility] [place] [facility] [address] [id number] [place] [address]- 0756 May, [facility] [place] [facility] [address] [id number] [place] [address]- 0036 May, [facility] [place] [facility] [address] [id number] [place] [address]- 7224 May, [facility] [place] [facility] [address] [id number] [place] [address]- 5774 Apr, [facility] [place] [facility] [address] [id number] [place] [address]- 2243 Apr, [facility] [place] [facility] [address] [id number] [place] [address]- 7582 Apr, [facility] [place] [facility] [address] [id number] [place] [address]- 7777 Mar, [facility] [place] [facility] [address] [id number] [place] [address]- 9727 Mar, [facility] [place] [facility] [address] [id number] [place] [address]- 5069 Mar, [facility] [place] [facility] [address] [id number] [place] [address]- 8436 Mar, [facility] [place] [facility] [address] [id number] [place] [address]- 6872 February, [facility] [place] [facility] [address] [id number] [place] [address]- 4870 February, [facility] [place] [facility] [address] [id number] [place] [address]- 3239 Jan, [facility] [place] [facility] [address] [id number] [place] [address]- 1632 Dec, [facility] [place] [facility] [address] [id number] [place] [address]- 1306 Dec, [facility] [place] [facility] [address] [id number] [place] [address]- 5175 05 Dec, 2012 [facility] [address] [id number] [place] [address]- 4221 05 Dec, 2012 [facility] [place] [facility] [address] [id number] [place] [address]- 0670 28 Dec, 2012 [facility] [place] [facility] [address] [id number] [place] [address]- 5109 27 Dec, 2012 [facility] [place] [facility] [address] [id number] [place] [address]- 8379 Dec, [facility] [place] [facility] [address] [id number] [place] [address]- 2307 25 Dec, 2012 [facility] [place] [facility] [address] [id number] [place] [address]- 3143 Dec, [facility] [place] [facility] [address] [id number] [place] [address]- 0638 15 Dec, 2012 [facility] [address] [id number] [place] [address]- 4226 14 Dec, 2012 [facility] [address] [facility] [id number] [place] [address]- 2391 Oct, [facility] [place] [facility] [address] [id number] [place] [address]- 0283 14 Oct, 2012 [facility] [place] [facility] [address] [id number] [place] [address]- 2312 Oct, [facility] [place] [facility] [address] [id number] [place] [address]- 4521 Oct, [facility] [place] [facility] [address] [id number] [place] [address]- 5793 Sep, [facility] [place] [facility] [address] [id number] [place] [address]- 0921 Sep, [facility] [place] [facility] [address] [id number], [place] [address]- 1646 Sep, [facility] [place] [facility] [address] [id number] [place] [address]- 1178 Sep, [facility] [place] [facility] [address] [id number] [place] [address]- 5034 Sep, [facility] [place] [facility] [address] [facility] [id number] [place] [address]- 8399 Sep, [facility] [place] [facility] [address] [id number], [place] [address]- 4025 Aug, [facility] [place] [facility] [address] [id number] [place] [address]- 9372 Aug, [facility] [place] [facility] [address] [facility] [id number] [place] [address]- 6910 Aug, [facility] [place] [facility] [address] [facility] [id number], [place] [address]- 9070 Aug, [facility] [place] [facility] [address] [id number], [place] [address]- 7185 Aug, [facility] [place] [facility] [address] [id number][place] 3069 Aug, [facility] [place] [facility] [address] [facility] [id number], [place] [address]- 4942 Jul, [facility] [place] [facility] [address] [id number], [place] [address]- 6382 Jul, [facility] [place] [facility] [address] [id number], [place] [address]- 4605 Jul, [facility] [place] [facility] [address] [id number], [place] [address]- 8140 Jul, [facility] [place] [facility] [address] [facility] [id number], [place] [address]- 0280 Jul, [facility] [place] [facility] [address] [facility] [id number], [place] [address]- 2521 Jul, [facility] [place] [facility] [address] [id number] [place] [address] 2546 27 Jul, 2012 [facility] [address] [id number] [place] [address] 2546 21 Jul, 2012 [facility] [place] [facility] [address] [id number] [place] [address] 2546 20 Jul, 2012 [facility] [address] [id number] [place] [address] 2546 11 Jul, 2012 [facility] [place] [facility] [address] [id number] [place] [address] 2546 Jul, [facility] [place] [facility] [address] [id number] [place] [address]- 0336 29 May, 2012 [facility] [place] [facility] [address] [id number] [place] [address]- 8313 May, [facility] [place] [facility] [address] [id number] [place] [address]- 5317 May, [facility] [address] [id number] [place] [address]- 8633 May, [facility] [place] [facility] [address] [id number] [place] [address]- 8365 Apr, [facility] [address] [id number] [place] [address]- 2137 Apr, [facility] [place] [facility] [address] [id number] [place] [address] 2546 Apr, [facility] [place] [facility] [address] [id number] [place] [address]- 2541 Apr, [facility] [place] [facility] [address] [id number] [place] [address] 254 Apr, [facility] [place] [facility] [address] [id number] [place] [address]- 2546 Apr, [facility] [place] [facility] [address] [id number] [place] [address]- 1906 13 Apr, 2012 [facility] [place] [facility] [address] [id number] [place] [address]- 0745 09 Apr, 2012 [facility] [place] [facility] [address] [id number] [place] [address]- 1525 28 Mar, 2012 [facility] [place] [facility] [address] [id number] [place] [address]- 6540 27 Mar, 2012 [facility] [place] [facility] [address] [id number] [place] [address]- 5979 20 Mar, 2012 [facility] [place] [facility] [address] [id number] [place] [address]- 6590 15 Mar, 2012 [facility] [place] [facility] [address] [id number] [place] [address]- 0562 14 Mar, 2012 [facility] [place] [facility] [address] [id number] [place] [address]- 3922 Mar, [facility] [place] [facility] [address] [id number] [place] [address]- 8068 Mar, [facility] [place] [facility] [address] [id number] [place] [address]- 4873 Mar, [facility] [place] [facility] [address] [id number] [place] [address]- 2467 Mar, [facility] [place] [facility] [address] [id number] [place] [address]- 1324 February, [facility] [place] [facility] [address] [id number] [place] [address]- 8886 February, [facility] [place] [facility] [address] [id number] [place] [address]- 9313 February, [facility] [place] [facility] [address] [id number] [place] [address]- 2841 February, [facility] [place] [facility] [address] [id number] [place] [address]- 9887 13 Jan, 2012 [facility] [place] [facility] [address] [id number] [place] [address]- 4793 03 Jan, 2012 [facility] [place] [facility] [address] [id number] [place] [address]- 7166 28 Dec, 2011 [facility] [place] [facility] [address] [id number] [place] [address]- 9966 15 Dec, 2011 [facility] [place] [facility] [address] [id number] [place] [address]- 8816 14 Dec, 2011 [facility] [place] [facility] [address] [id number] [place] [address]- 7934 07 Dec, 2011 [facility] [place] [facility] [address] [id number] [place] [address]- 7036 28 Dec, 2011 [facility] [place] [facility] [address] [id number] [place] [address]- 1246 27 Dec, 2011 [facility] [place] [facility] [address] [id number] [place] [address]- 6986 21 Dec, 2011 [facility] [place] [facility] [address] [id number] [place] [address]- 1434 Dec, [facility] [place] [facility] [address] [id number] [place] [address]- 4958 07 Dec, 2011 [facility] [place] [facility] [address] [facility] [id number] [place] [address]- 7282 07 Dec, 2011 [facility] [place] [facility] [address] [facility] [id number] [place] [address]- 7916 07 Dec, 2011 [facility] [place] [facility] [address] [id number] [place] [address]- 0592 Dec, [facility] [place] [facility] [address] [id number] [place] [address]- 7346 Oct, [facility] [place] [facility] [address] [id number] [place] [address]- 3996 Oct, [facility] [place] [facility] [address] [facility] [id number] [place] [address]- 1318 Oct, [facility] [address] [id number] [place] [address]- 3382 Oct, [facility] [place] [facility] [address] [id number] [place] [address]- 3283 Oct, [facility] [place] [facility] [address] [id number] [place] [address]- 3997 Oct, [facility] [place] [facility] [address] [id number] [place] [address]- 9400 Oct, [facility] [place] [facility] [address] [id number] [place] [address]- 1242 Oct, [facility] [place] [facility] [address] [id number] [place] [address]- 1570 Sep, [facility] [place] [facility] [address] [id number] [place] [address]- 0504 Sep, [facility] [place] [facility] [address] [id number], [place] [address]- 5396 Sep, [facility] [place] [facility] [address] [id number], [place] [address]- 7999 Aug, [facility] [place] [facility] [address] [id number], [place] [address]- 9003 Aug, [facility] [place] [facility] [address] [id number], [place] [address]- 1123 16 Aug, 2011 [facility] [place] [facility] [address] [id number], [place] [address]- 7066 14 Aug, 2011 [facility] [place] [facility] [address] [id number], [place] [address]- 9765 Aug, [facility] [place] [facility] [address] [id number], [place] [address]- 5508 19 Jul, 2011 [facility] [place] [facility] [address] [id number], [place] [address]- 0859 13 Jul, 2011 [facility] [place] [facility] [address] [id number], [place] [address]- 2546 May, [facility] [address] [facility] [id number], [place] [address]- 7206 Dec, [facility] [address] [facility] [id number], [place] [address]- 2546 Oct, [facility] [address] [facility] [id number], [place] [address]- 0096 Sep, [facility] [address] [id number], [place] [address]- 1466 Sep, [facility] [address] [facility] [id number], [place] [address]- 5546 Sep, IMMUNIZATIONS No Known Immunizations SOCIAL HISTORY Never Assessed REASON FOR VISIT xanax refill PLAN OF CARE VITAL SIGNS MEDICATIONS Medication Instructions Dosage Frequency Start Date End Date Duration Status Alprazolam 0.5 MG Orally Twice a day as needed 1 tablet Dec, 30 days Active RESULTS No Results PROCEDURES [...] reflux Surgical History Left Knee SOA-Dr. Melendrez-[facility] 05/19/16 Surgical History Colonoscopy- Dr Castanon 01/26/2017 Hospitalization History surgeries Hospitalization History Left Knee SOA--Dr. Melendrez--[facility] Hospitalization History Septic shock, UTI-[facility] 07/27/17 Hospitalization History Multiple falls, hyperglycemia, sepsis 07/2017 Hospitalization History Alcoholism, depression, DM, Falls-[facility] 08/23/17 Hospitalization History COPD exacerbation-[facility] 11/25/17 Hospitalization History COPD exacerbation-[facility] 11/28/17
--- OUTSIDE RECORDS SUMMARY | 2018-05-10 03:54 | XMS REPORT ---
Author Author KAYLA GUTIERREZ [facility] Address [address] [place] [address] Care Team Providers Care Oxygen Tank Filler Name Role Phone KAYLA GUTIERREZ Unavailable PROBLEMS Type Condition ICD9-CM Code ZDX14-HR Code Onset Dates Condition Status SNOMED Code Problem Generalized anxiety disorder F41.1 Active 42732518 Problem Diabetes E11.9 Active 43605674 Problem Psoriasis L40.9 Active 2422972 Problem Tobacco abuse Z72.0 Active 37085107 Problem Hypertension I10 Active 37905338 Problem Back pain M54.9 Active 022909202 Problem Arthritis M19.90 Active 0887854 Problem prison current use of insulin Z79.4 Active 987850870 Problem Psoriatic arthritis L40.50 Active 153366694 Problem Psychophysiological insomnia F51.04 Active 98020058 Problem Other specified 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 Active 663116753 Problem Obesity (BMI 30-39.9) E66.9 Active 995238488 Problem Major depressive disorder, recurrent, moderate F33.1 Active 83285220 Problem Essential hypertension I10 Active 46166021 Problem Type 2 diabetes mellitus with hyperglycemia E11.65 Active 352074913856962 Problem Alcoholism F10.20 Active 6235332 Problem Frequent falls R29.6 Active 982518327 Problem Benzodiazepine abuse F13.10 Active 962173891 Problem PTSD (post-traumatic stress disorder) F43.10 Active 45416482 Problem Eating disorder F50.9 Active 70612650 Problem Attention-deficit hyperactivity disorder, combined type F90.2 Active 04599266 Problem COPD exacerbation J44.1 Active 431109983 Problem Anxiety F41.9 Active 42020378 Problem Decubitus ulcer of left buttock, stage 2 L89.322 Active 869532417 Problem BMI 40.0-44.9, adult Z68.41 Active 669488666 Problem Alcohol abuse F10.10 Active 68130135 Problem Pneumonia due to methicillin resistant Staphylococcus aureus, unspecified laterality, unspecified part of lung J15.212 Active 706292912480667 Problem Type 2 diabetes mellitus with unspecified complications E11.8 Active 92670720 Problem Attention-deficit hyperactivity disorder, predominantly hyperactive type F90.1 Active 449770968 Problem Type 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 Active 44744072 Problem Ulcer of right foot, unspecified ulcer stage L97.519 Active 50576683 Problem Attention deficit R41.840 Active 23620292 Problem Mental disorder, not otherwise specified F99 Active 16177641 Problem Insomnia due to other mental disorder F51.05 Active 61707791 ALLERGIES No Information ENCOUNTERS Encounter Location Date Diagnosis [place] [address] [address] Mar, [place] [address] [address]38- 9796 14 Mar, 2018 [place] [address] [address]- 9954 Jan, [place] [address] 42837- 8202 Dec, Major depressive disorder, recurrent episode, unspecified severity F33.9 ; Generalized anxiety disorder F41.1 and Eating disorder F50.9 [place] [address] 91607- 8202 Dec, [place] [address] [place] [id number] [place] [address] 07805- 5918 Dec, [place] [address] 69023- 9297 Dec, [place] [address] 45011- 4558 Dec, Increased urinary frequency R35.0 ; Frequent falls R29.6 ; Decubitus ulcer of left buttock, stage 2 L89.322 ; Benzodiazepine abuse F13.10 ; BMI 40.0-44.9, adult Z68.41 and Yeast infection B37.9 [place] [address] 49190- 1513 Dec, [facility] [address], [place] [address] Dec, [facility] [address] [place] [address] 86485- 5390 Dec, Increased urinary frequency R35.0 [facility] [address] [place] [address] 96989- 3403 Dec, Increased urinary frequency R35.0 [facility] [address] [place] [id number] [place] [address] 76453- 4737 Dec, Generalized anxiety disorder F41.1 ; Major depressive disorder, recurrent, moderate F33.1 and Psychophysiological insomnia F51.04 [facility] [address] [place] [address] 38661- 6987 Dec, BMI 40.0-44.9, adult Z68.41 ; Type 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 ; Pneumonia due to methicillin resistant Staphylococcus aureus, unspecified laterality, unspecified part of lung J15.212 and COPD exacerbation J44.1 [facility] [address] [place] [address] 85937 -7082 Dec, [facility] [address] [place] [id number] [place] [address] [id number] Dec, [facility] [address] [place] [id number] [place] [address] [id number] Oct, [facility] [address] [place] [address] 92312 -7197 Oct, Frequency of urination R35.0 ; Bronchitis J40 and BMI 40.0- 44.9, adult Z68.41 [facility] [address] [place] [id number] [place] [address] [id number] Oct, [facility] [id number] [place] [address] 43219- 9508 Oct, [facility] [address] [place] [id number] [place] [address] 51460- 1356 Oct, BMI 40.0-44.9, adult Z68.41 ; Type 2 diabetes mellitus with hyperglycemia E11.65 ; Essential hypertension I10 ; Vaginal yeast infection B37.3 ; Anxiety F41.9 and Alcoholism F10.20 [place] [address] [place] [id number] [place] [address] 35670- 5299 Oct, [place] [address] 53651- 0353 Oct, [place] [address] 09041- 1863 Sep, [address] 85409- 4973 Sep, Major depressive disorder, recurrent episode, unspecified severity F33.9 ; Generalized anxiety disorder F41.1 and Eating disorder F50.[address] 70231- 2108 Sep, Major depressive disorder, recurrent, moderate F33.1 ; Type 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 ; Alcohol abuse F10.10 ; Obesity (BMI 30-39.9) E66.9 and Psychophysiological insomnia F51.04 [place] [id number] [place] [address] 00022- 4169 Sep, Diabetes E11.9 and Generalized anxiety disorder F41.1 [place] [address] [place] [id number] [place] [address] 60395- 7229 Sep, Major depressive disorder, recurrent episode, unspecified severity F33.9 ; Generalized anxiety disorder F41.1 and Eating disorder F50.[address] 32605- 4612 Sep, [place] [address] 54221- 0037 Aug, [place] [address] 60511- 1219 Aug, Insomnia due to other mental disorder F51.05 ; Mental disorder, not otherwise specified F99 ; Attention deficit R41.840 ; Ulcer of right foot, unspecified ulcer stage L97.519 ; Cough R05 ; Diabetes E11.9 ; Sore in mouth K13.79 ; Generalized anxiety disorder F41.1 ; Major depressive disorder , recurrent episode, unspecified severity F33.9 and BMI 40.0-44.9, adult Z68.41 [place] [address], [place] [address] 8232 Aug, [place] [address], [place] [address]- 4736 Aug, [place] [address] [place] [address] 52698- 6889 Aug, [place] [address], [place] [address]- 7361 Aug, [place] [address], [place] [address]- 4962 Aug, Diabetes E11.9 [facility] [address] [facility] [place] [id number] Aug, Falling R29.6 ; Alcohol abuse F10.10 ; Major depressive disorder, recurrent episode, unspecified severity F33.9 ; Hypertension I10 ; Type 2 diabetes mellitus with unspecified complications E11.8 and prison current use of insulin Z79.4 [place] [id number] [place] [address] [id number] Aug, [facility] [address] [facility] [place] [id number] Aug, Alcohol abuse F10.10 ; Major depressive disorder, recurrent episode, unspecified severity F33.9 ; Generalized anxiety disorder F41.1 ; 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 ; Psoriatic arthritis L40.50 and Diabetes E11.9 [place] [address] [id number] [id number] Aug, [place] [address] [place] [id number] [id number] Jul, [facility] [address], [place] [address]- 3475 Jul, [facility] [address] [place] [id number] [place] [address] 48959- 7317 Jul, Generalized anxiety disorder F41.1 [facility] [address] [place] [id number] [place] [address] 18330- 9726 Jul, [facility] [address] [place] [id number] [place] [address] 75571- 4942 Jul, [facility] [address] [place] [id number] [place] [address] 97893- 9912 Jul, Generalized anxiety disorder F41.1 ; Major depressive disorder, recurrent episode, unspecified severity F33.9 ; PTSD (post-traumatic stress disorder) F43.10 ; Eating disorder F50.9 and Attention-deficit hyperactivity disorder, predominantly hyperactive type F90.1 [facility] [address], [place] [address]- 9270 Jul, [facility] [address] [place] [id number] [place] [address] 03896- 9541 Jul, [facility] [id number] [place] [address] 17146- 6261 Jul, prison current use of insulin Z79.4 ; Type 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 ; Urinary tract infection, site not specified N39.0 ; Sepsis, unspecified organism A41.9 and Essential hypertension I10 [facility] [id number] [id number] Jul, [facility] [address], [place] [address] Jul, [facility] [address] [place] [id number] [address]- 1878 Jul, Generalized anxiety disorder F41.1 [facility] [address] [place] [id number] [address]- 8381 15 Jul, 2017 [facility] [address], [place] [address]- 1283 Jul, Generalized anxiety disorder F41.1 [facility] [address], [place] [address]- 9211 May, Generalized anxiety disorder F41.1 ; Major depressive disorder, recurrent episode, unspecified severity F33.9 ; PTSD (post-traumatic stress disorder) F43.10 ; Eating disorder F50.9 and Attention-deficit hyperactivity disorder, predominantly hyperactive type F90.1 [facility] [address] [place] [address] 84310- 4411 May, Diabetes E11.9 [facility] [address], [place] [address] May, Acute non-recurrent maxillary sinusitis J01.00 and Diabetes E11.9 [facility] [address], [place] [address]- 2255 May, [facility] [address], [place] [address]- 4626 May, [facility] [address], [place] [address]- 6980 May, Generalized anxiety disorder F41.1 [facility] [address], [place] [address]- 8134 Apr, [facility] [address], [place] [address]- 8425 Apr, [facility] [address], [place] [address]- 7829 Apr, [facility] [address], [place] [address]- 4712 Apr, Generalized anxiety disorder F41.1 ; Major depressive disorder, recurrent episode, unspecified severity F33.9 ; PTSD (post-traumatic stress disorder) F43.10 ; Eating disorder F50.9 and Attention-deficit hyperactivity disorder, predominantly hyperactive type F90.1 [place] [address] [place] [id number] [place] [address] 83871- 4429 Apr, Major depressive disorder, recurrent, moderate F33.1 [place] [address] [place] [id number] [place] [address] 96906- 1199 Mar, Diabetes E11.9 [place] [address] 00584- 0060 Mar, Attention-deficit hyperactivity disorder, combined type F90.2 [place] [address] [place] [id number] [place] [address] 71420- 4663 Mar, [place] [address] 80870- 8204 Mar, Diabetes E11.9 [place] [address] 62574- 4715 07 Mar, 2017 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 ; Psoriatic arthritis L40.50 ; Other specified 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 and Hypertension I10 [place] [address] [place] [id number] [place] [address] 42241- 1604 February, Back pain M54.9 [place] [address] [place] [id number] [place] [address] 53759- 7394 February, Attention-deficit hyperactivity disorder, combined type F90.2 [place] [address] [place] [id number] [place] [address] 75866- 2057 February, Major depressive disorder, recurrent episode, unspecified severity F33.9 and Generalized anxiety disorder F41.1 [place] [address] [place] [id number] [place] [address] 40879- 3069 Jan, Attention-deficit hyperactivity disorder, combined type F90.2 [place] [address] [place] [id number] [place] [address] 55885- 1038 Jan, Major depressive disorder, recurrent, moderate F33.1 ; Generalized anxiety disorder F41.1 and Attention-deficit hyperactivity disorder , combined type F90.2 [facility] [address], [place] [address]- 0777 Dec, Major depressive disorder, recurrent episode, unspecified severity F33.9 ; Generalized anxiety disorder F41.1 and Attention-deficit hyperactivity disorder, predominantly hyperactive type F90.1 [facility] [id number] [place] [address] 58500- 1931 Dec, Major depressive disorder, recurrent episode, unspecified severity F33.9 and Generalized anxiety disorder F41.1 [facility] [address] [place] [id number] [place] [address] 72321- 9064 Dec, [place] [address] [place] [id number] [place] [address] 80224- 2591 Dec, [facility] [address] [place] [id number] [place] [address] 06898- 5425 Dec, Major depressive disorder, recurrent episode, unspecified severity F33.9 and Generalized anxiety disorder F41.1 [facility] [address] [place] [id number] [place] [address] 34349- 9803 Dec, Back pain M54.9 [facility] [address] [place] [id number] [place] [address] 41037- 7249 17 Dec, 2016 Eustachian tube dysfunction, right H69.81 and Arthritis M19.90 [facility] [address] [place] [address] 76710- 3993 Dec, [facility] [id number] [place] [address] 16940- 0043 Dec, [facility] [id number] [place] [address] 74406- 3526 07 Dec, 2016 Major depressive disorder, recurrent episode, unspecified severity F33.9 [facility] [address], [place] [address]- 1216 Oct, [facility] [address] [place] [id number] [place] [address] 61685 -3646 Oct, Acute non-recurrent pansinusitis J01.40 and Sore throat J02.9 [facility] [address] [place] [id number] [place] [address] 39133- 8395 Oct, Major depressive disorder, recurrent episode, unspecified severity F33.9 [facility] [address] [place] [id number] [place] [address] 38571- 7466 Oct, Major depressive disorder, recurrent episode, unspecified severity F33.9 and Generalized anxiety disorder F41.1 [place] [address] [place] [id number] [place] [address] 23046- 8576 Sep, [facility] [address] [place] [id number] [place] [address] 88399- 9550 Sep, Major depressive disorder, recurrent episode, unspecified severity F33.9 [place] [address] [place] [id number] [place] [address] 96842- 1553 Sep, Major depressive disorder, recurrent episode, unspecified severity F33.9 [facility] [address] [place] [id number] [place] [address] 51646 -9236 Sep, Sore throat J02.9 [facility] [address] [place] [address] 51620- 0026 Sep, Generalized anxiety disorder F41.1 ; Major depressive disorder, recurrent episode, unspecified severity F33.9 and Attention-deficit hyperactivity disorder, predominantly hyperactive type F90.1 [place] [address] [place] [address] 12882- 5306 Sep, Major depressive disorder, recurrent episode, unspecified severity F33.9 and Generalized anxiety disorder F41.1 [place] [address] [place] [address] 15427- 0289 Sep, Psoriatic arthritis L40.50 [place] [address] [place] [id number] [place] [address] 69343- 2167 Sep, 2016 Diabetes E11.9 ; prison current use of insulin Z79.4 ; Back pain M54.9 and Encounter for immunization Z23 [facility] [address] [place] [id number] [place] [address] 78143- 1223 Aug, [facility] [address] [place] [id number] [place] [address] 95058- 4804 Aug, [facility] [address] 55363- 8536 Jul, Major depressive disorder, recurrent episode, unspecified severity F33.9 ; Attention-deficit hyperactivity disorder, predominantly hyperactive type F90.1 and Generalized anxiety disorder F41.1 [facility] [address] 76746- 3107 Jul, [facility] [address] [place] [id number] [place] [address] 93928- 1400 Jul, Major depressive disorder, recurrent, in partial remission F33.41 and Generalized anxiety disorder F41.1 [facility] [address] [place] [id number] [place] [address] 51878- 9782 Jul, [facility] [address] [place] [id number] [place] [address] 92430- 5402 Jul, [facility] [address] [place] [id number] [place] [address] 22810- 0601 Jul, [facility] [address] [place] [id number] [place] [address] 04667- 5101 Jul, [facility] [address] [place] [id number] [place] [address] 84431- 0142 Jul, Diabetes E11.9 [facility] [address] [place] [id number] [place] [address] 28125- 0241 May, [facility] [address] [place] [id number] [place] [address] 10814- 9123 May, [facility] [address] [place] [id number] [place] [address] 55288- 2043 May, [place] [address], [place] [address]- 1613 May, Major depressive disorder, recurrent episode, unspecified severity F33.9 ; Generalized anxiety disorder F41.1 and Attention-deficit hyperactivity disorder, predominantly hyperactive type F90.1 [place] [address], [place] [address]- 2768 May, [place] [address] [place] [id number] [place] [address] 73953- 8106 May, Diabetes E11.9 [place] [address] [place] [id number] [place] [address] 10038- 4669 May, [place] [address] [place] [id number] [place] [address] 68146- 6943 May, [facility] [address] [place] [id number] May, Diabetes E11.9 ; Generalized anxiety disorder F41.1 and Nausea R11.0 [place] [address] [place] [id number] [place] [address] 66662- 2744 May, Psoriatic arthritis L40.50 and Candidiasis of female genitalia B37.3 [place] [address] [place] [address] 02980- 0085 May, [place] [address], [place] [address]- 6663 Apr, [place] [address], [place] [address]- 5632 Apr, [place] [address] [place] [address] 25715- 4263 Apr, [place] [address] [place] [id number] [place] [address] 09861- 7417 Apr, Generalized anxiety disorder F41.1 ; Major depressive disorder, recurrent episode, unspecified severity F33.9 and Attention-deficit hyperactivity disorder, predominantly hyperactive type F90.1 [place] [address] [place] [id number] [address]- 3607 Apr, [facility] [address] [place] [address] 43429- 0254 Apr, [facility] [address] [place] [id number] [place] [address] 28154- 2712 Apr, [facility] [address] [place] [id number] [place] [address] 55257- 1689 Apr, [facility] [address] [place] [id number] [place] [address] 15621- 7170 Apr, [facility] [address] [place] [id number] [place] [address] 29571- 4345 Mar, Attention-deficit hyperactivity disorder, predominantly hyperactive type F90.1 [facility] [address] [place] [id number] [place] [address] 37922- 7089 Mar, [facility] [address] [place] [address] [id number] [place] [address] 36627- 2614 Mar, [facility] [address] [place] [address] [id number] [place] [address] 80184- 0325 Mar, Major depressive disorder, recurrent episode, unspecified severity F33.9 and Generalized anxiety disorder F41.1 [facility] [address], [place] [address]- 3153 February, Diabetes E11.9 [facility] [address], [place] [address] February, OME (otitis media with effusion), bilateral H65.93 [facility] [address] [place] [address] 23698- 6906 February, Back pain M54.9 [facility] [address] [id number] [place] [address] 37561- 0887 February, [facility] [address], [place] [address]- 3625 13 May, 2016 Nausea R11.0 [place] [address] [place] [id number] [place] [address] 20352- 7160 February, [place] [address] [place] [id number] [place] [address] 65477- 1651 February, Pre-op evaluation Z01.818 ; Type 2 diabetes mellitus with hyperglycemia E11.65 and 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 [address] [id number] [place] [address] 57641 -4359 February, Right otitis externa H60.91 [place] [address] [place] [id number] [place] [address] 44504- 3883 Jan, [place] [address] [place] [id number] [place] [address] 04062- 4508 Jan, Psoriatic arthritis L40.50 and Arthralgia, unspecified joint M25.50 [place] [address] [place] [id number] [place] [address] 75479- 4612 Jan, Major depressive disorder, recurrent episode, unspecified severity F33.9 ; Generalized anxiety disorder F41.1 and Attention-deficit hyperactivity disorder, unspecified type F90.9 [place] [address] [place] [id number] [place] [address] 56943- 2138 Jan, [place] [address] [place] [id number] [place] [address] 70819- 0161 Jan, [place] [address] [place] [id number] [place] [address] 63347- 4077 Jan, Major depressive disorder, recurrent episode, unspecified severity F33.9 and Generalized anxiety disorder F41.1 [place] [id number] [place] [address] [phone] Jan, [facility] [id number] [place] [address] [id number]- [phone] Dec, Hypertension I10 and Arthritis M19.90 [facility] [id number] [address] Dec, [facility] [id number] [place] [address] [id number]- [phone] Dec, [facility] [id number] [place] [address] [phone] Dec, [facility] [id number] [place] [address] [id number] Dec, [facility] [facility] [id number] [place] [address] 46336- 7636 Dec, [facility] [id number] [place] [address] 64680- 3514 Dec, Major depressive disorder, recurrent episode, unspecified severity F33.9 and Generalized anxiety disorder F41.1 [facility] [id number] [place] [address] 11020- 3247 Dec, Diabetes E11.9 ; Back pain M54.9 ; Thrush B37.0 and Hypertension I10 [facility] [id number] [place] [address] 90476- 4808 Dec, Major depressive disorder, recurrent episode, unspecified severity F33.9 and Generalized anxiety disorder F41.1 [facility] [id number] [place] [address] 33931- 9964 Dec, Major depressive disorder, recurrent episode, in partial or unspecified remission 296.35 ; Major depressive disorder, recurrent episode, unspecified severity F33.9 and Generalized anxiety disorder 300.02 [facility] [id number] [place] [address] 66802- 6034 Dec, [facility] [id number] [place] [address] 25798- 8446 Oct, [facility] [id number] [place] [address] 23879- 9919 Oct, [facility] [id number] [place] [address] 30946- 6102 Oct, [facility] [id number] [place] [address] 85527- 9150 Oct, [facility] [id number] [place] [address] 70617- 7111 Oct, Major depressive disorder, recurrent, moderate F33.1 and Attention-deficit hyperactivity disorder, unspecified type F90.9 [facility] [id number] [place] [address] 31147- 5493 Oct, 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 [id number] [place] [address] 98465 -8196 Sep, URI (upper respiratory infection) J06.9 ; Psoriasis L40.9 ; Cough R05 and Tobacco abuse Z72.0 [facility] [id number] [place] [address] 23115- 6768 Sep, Major depressive disorder, recurrent episode, in partial or unspecified remission 296.35 ; Generalized anxiety disorder 300.02 and ADHD, 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 [facility] [id number] [place] [address] 83599 -2915 Sep, Acute sinusitis, unspecified J01.90 [facility] [id number] [place] [address] 93402- 4682 Sep, [facility] [id number] [place] [address] 82604- 8504 Sep, Major depressive disorder, recurrent, moderate F33.1 ; Generalized anxiety disorder F41.1 and Attention-deficit hyperactivity disorder , combined type F90.2 [place] [id number] [address] 8333 Sep, [facility] [id number] [place] [address] 77141- 7604 Aug, [facility] [address] [address] 3826 Aug, [facility] [id number] [place] [address] 01407- 7585 Aug, Diabetes E11.9 and Anxiety F41.9 [facility] [id number] [place] [address] 78274- 2573 Aug, Major depressive disorder, recurrent episode, unspecified severity F33.9 and Generalized anxiety disorder F41.1 [facility] [id number] [place] [address] 41633- 1586 Aug, [facility] [id number] [place] [address] 77419- 7122 Jul, [facility] [id number] [place] [address] 53680- 8157 Jul, [facility] [id number] [place] [address] 84191- 9979 Jul, [facility] [address] [address]- 2170 Jul, [facility] [address] [place] [address] 98815- 4649 Jul, Major depressive disorder, recurrent episode, in partial or unspecified remission 296.35 ; Generalized anxiety disorder 300.02 and ADHD, 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 [facility] [address] [address]- 4960 10 Jul, 2015 Major depressive disorder, recurrent episode, in partial or unspecified remission 296.35 ; Generalized anxiety disorder 300.02 and ADHD, 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 [facility] [address] [place] [address] 98418- 6692 Jul, [facility] [address] [address]- 1243 May, [facility] [id number] [place] [address] 23973- 7382 May, [facility] [address] [place] [address] 72622- 2589 May, DM w/o complication type II 250.00 ; Dyspepsia 536.8 and PAD (peripheral artery disease) 443.9 [facility] [id number] [place] [address] 83698- 0848 May, Major depressive disorder, recurrent episode, moderate 296.32 and Generalized anxiety disorder 300.02 [facility] [id number] [place] [address] 88603- 4649 May, [facility] [id number] [place] [address] 71478- 8699 May, Major depressive disorder, recurrent episode, moderate 296.32 and Generalized anxiety disorder 300.02 [facility] [address] [place] [address] 91246- 6695 May, [facility] [id number] [place] [address] 33619- 9452 Apr, [facility] [id number] [place] [address] 82098- 7216 Apr, Major depressive disorder, recurrent episode, moderate 296.32 and Generalized anxiety disorder 300.02 [facility] [address] [address]- 7024 Apr, [facility] [id number] [place] [address] 67813- 5434 Apr, [facility] [address], [place] [address]- 7280 Apr, Generalized anxiety disorder 300.02 ; ADHD, 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 and Depression, major, recurrent, moderate 296.32 [facility] [address] [place] [address] 93650- 0784 Apr, Major depressive disorder, recurrent episode, moderate 296.32 and Generalized anxiety disorder 300.02 [facility] [id number] [place] [address] 33993- 2994 Apr, [facility] [id number] [place] [address] 96234- 7517 Apr, [facility] [id number] [place] [address] 86387- 0929 Mar, [facility] [address] 83705- 6245 Mar, Major depressive disorder, recurrent episode, moderate 296.32 and Generalized anxiety disorder 300.02 [facility] [id number] [place] [address] 34559- 5586 Mar, ADHD, 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 ; Major depressive disorder, recurrent episode, severe, without mention of psychotic behavior 296.33 and Generalized anxiety disorder 300.02 [facility] [id number] [place] [address] 22769- 9001 February, Major depressive disorder, recurrent episode, moderate 296.32 and Generalized anxiety disorder 300.02 [facility] [id number] [place] [address] 00760- 2415 February, [facility] [id number] [place] [address] 72978- 4663 February, [facility] [id number] [place] [address] 68409- 3292 February, [facility] [id number] [place] [address] 24291- 7561 February, [facility] [id number] [place] [address] 38133- 4980 February, DM w/o complication type II 250.00 ; Impacted cerumen 380.4 ; Essential hypertension, benign 401.1 and Irritable colon 564.1 [facility] [address] [id number] [place] [address]- 2666 February, [facility] [address] [id number] [place] [address]- 5726 February, [facility] [address] [id number] [place] [address]- 1996 Jan, [facility] [place] [facility] [address] [id number] [place] [address] 2546 Dec, [facility] [place] [facility] [address] [id number] [place] [address]- 6415 Dec, [facility] [place] [facility] [address] [id number] [place] [address]- 4210 Dec, [facility] [address] [facility] [id number] [place] [address]- 8693 Dec, [facility] [place] [facility] [address] [id number] [place] [address]- 6154 Dec, [facility] [place] [facility] [address] [id number] [place] [address]- 3471 Dec, [facility] [place] [facility] [address] [facility] [id number] [place] [address]- 0388 Dec, [facility] [address] [id number] [place] [address]- 7749 Dec, [facility] [place] [facility] [address] [id number] [place] [address]- 0306 Dec, [facility] [place] [facility] [address] [id number] [place] 1119 Dec, [facility] [place] [facility] [address] [facility] [id number] [place] 7532 Dec, [facility] [place] [facility] [address] [facility] [id number] [place] [address]- 0388 Dec, [facility] [place] [facility] [address] [id number] [place] [address]- 6818 Dec, 2014 [facility] [place] [facility] [address] [id number] [place] [address]- 8245 Dec, 2014 [facility] [place] [facility] [address] [id number] [place] [address]- 5866 Dec, [facility] [place] [facility] [address] [id number] [place] [address]- 0370 Dec, [facility] [place] [facility] [address] [id number] [place] [address]- 2928 Oct, [facility] [place] [facility] [address] [id number] [place] [address]- 6992 Oct, [facility] [place] [facility] [address] [id number] [place] [address]- 7339 Oct, [facility] [place] [facility] [address] [id number] [place] [address]- 6542 Oct, [facility] [place] [facility] [address] [id number] [place] [address]- 6172 Oct, [facility] [place] [facility] [address] [id number] [place] [address]- 7714 Oct, [facility] [place] [facility] [address] [id number] [place] [address]- 3886 Oct, [facility] [place] [facility] [address] [id number] [place] [address]- 6914 Oct, [facility] [place] [facility] [address] [id number] [place] [address]- 0975 Oct, [facility] [place] [facility] [address] [id number] [place] [address]- 6651 Oct, [facility] [place] [facility] [address] [id number] [place] [address]- 9502 Oct, [facility] [place] [facility] [address] [id number] [place] [address]- 8145 Sep, [facility] [place] [facility] [address] [id number] [place] [address]- 8790 Sep, [facility] [place] [facility] [address] [id number] [place] [address]- 2282 Sep, [facility] [place] [facility] [address] [id number] [place] 9742 Sep, [facility] [place] [facility] [address] [id number] [place] [address]- 7505 Sep, [facility] [place] [facility] [address] [id number] [place] [address]- 6053 Sep, [facility] [place] [facility] [address] [id number] [place] [address]- 9786 Sep, [facility] [place] [facility] [address] [id number] [place] [address]- 7389 Sep, [facility] [place] [facility] [address] [id number] [place] [address]- 4342 Aug, [facility] [place] [facility] [address] [id number] [place] [address]- 9299 Aug, [facility] [place] [facility] [address] [id number] [place] [address]- 2211 Aug, [facility] [place] [facility] [address] [id number] [place] [address]- 1727 Aug, [facility] [place] [facility] [address] [id number], [place] [address]- 8745 Aug, [facility] [place] [facility] [address] [id number] [place] [address]- 1269 Aug, [facility] [place] [facility] [address] [id number] [place] [address]- 3271 Aug, [facility] [place] [facility] [address] [id number] [place] [address]- 4255 Aug, [facility] [place] [facility] [address] [id number] [place] [address]- 9251 Aug, [facility] [place] [facility] [address] [id number] [place] [address]- 2092 Aug, [facility] [place] [facility] [address] [id number] [place] [address]- 8474 Aug, [facility] [place] [facility] [address] [id number] [place] [address]- 0432 Aug, [facility] [place] [facility] [address] [id number] [place] [address]- 5380 Aug, [facility] [place] [facility] [address] [id number] [place] [address]- 3057 Aug, [facility] [place] [facility] [address] [id number] [place] [address]- 3457 Jul, [facility] [place] [facility] [address] [id number] [place] [address]- 9612 Jul, [facility] [place] [facility] [address] [id number] [place] [address]- 8677 Jul, [facility] [place] [facility] [address] [id number] [place] [address]- 6084 Jul, [facility] [place] [facility] [address] [id number] [place] [address]- 3122 Jul, [facility] [place] [facility] [address] [id number] [place] [address]- 8219 Jul, [facility] [place] [facility] [address] [id number] [place] [address]- 6611 Jul, [facility] [place] [facility] [address] [id number] [place] [address]- 3569 Jul, [facility] [place] [facility] [address] [id number] [place] [address]- 5041 Jul, [facility] [place] [facility] [address] [id number] [place] [address]- 4380 Jul, [facility] [place] [facility] [address] [id number] [place] [address]- 2219 Jul, [facility] [place] [facility] [address] [id number] [place] [address]- 8846 Jul, [facility] [place] [facility] [address] [id number] [place] [address]- 5882 Jul, [facility] [place] [facility] [address] [id number] [place] [address]- 7109 Jul, [facility] [place] [facility] [address] [id number] [place] [address]- 5753 May, [facility] [place] [facility] [address] [id number] [place] [address]- 1749 May, [facility] [place] [facility] [address] [id number] [place] [address]- 5288 May, [facility] [place] [facility] [address] [id number] [place] [address]- 7697 May, [facility] [place] [facility] [address] [id number] [place] [address]- 6467 May, [facility] [place] [facility] [address] [id number] [place] [address]- 3305 May, [facility] [place] [facility] [address] [id number] [place] [address]- 8437 May, [facility] [place] [facility] [address] [id number] [place] [address]- 1476 May, [facility] [place] [facility] [address] [id number] [place] [address]- 5860 May, [facility] [place] [facility] [address] [id number] [place] [address]- 7494 May, [facility] [place] [facility] [address] [id number] [place] [address]- 0876 May, [facility] [place] [facility] [address] [id number] [place] [address]- 0706 May, [facility] [place] [facility] [address] [id number] [place] [address]- 0897 Apr, [facility] [place] [facility] [address] [id number] [place] [address]- 0483 Apr, [facility] [place] [facility] [address] [id number] [place] [address]- 4273 Apr, [facility] [place] [facility] [address] [id number] [place] [address]- 7074 Apr, [facility] [place] [facility] [address] [id number] [place] [address]- 4320 Apr, [facility] [place] [facility] [address] [id number] [place] [address]- 5379 Apr, [facility] [place] [facility] [address] [id number] [place] [address]- 1240 Mar, [facility] [place] [facility] [address] [id number] [place] [address]- 5546 Mar, [facility] [place] [facility] [address] [id number] [place] [address]- 6945 Mar, [facility] [place] [facility] [address] [id number] [place] [address]- 9530 Mar, [facility] [place] [facility] [address] [id number] [place] [address]- 3450 Mar, [facility] [place] [facility] [address] [id number] [place] [address]- 2860 Mar, [facility] [place] [facility] [address] [id number] [place] [address]- 5167 Mar, [facility] [place] [facility] [address] [id number] [place] [address]- 7261 Mar, [facility] [place] [facility] [address] [id number] [place] [address]- 2277 Mar, [facility] [place] [facility] [address] [id number] [place] [address]- 7703 Mar, [facility] [place] [facility] [address] [id number] [place] [address]- 7826 Mar, [facility] [place] [facility] [address] [id number] [place] [address]- 5626 Mar, [facility] [place] [facility] [address] [id number] [place] [address]- 4805 Mar, [facility] [place] [facility] [address] [id number] [place] [address]- 3608 February, [facility] [place] [facility] [address] [id number] [place] [address]- 2365 February, [facility] [place] [facility] [address] [id number] [place] [address]- 3677 February, [facility] [place] [facility] [address] [id number] [place] [address]- 1526 February, [facility] [place] [facility] [address] [id number] [place] [address]- 3910 February, [facility] [place] [facility] [address] [id number] [place] [address]- 1324 February, [facility] [place] [facility] [address] [id number] [place] [address]- 1849 February, [facility] [place] [facility] [address] [id number] [place] [address]- 6802 February, [facility] [place] [facility] [address] [id number] [place] [address]- 8270 February, [facility] [place] [facility] [address] [id number] [place] [address]- 0562 February, [facility] [place] [facility] [address] [id number] [place] [address]- 7392 February, [facility] [place] [facility] [address] [id number] [place] [address]- 2982 February, [facility] [address] [id number] [place] [address]- 8924 February, [facility] [place] [facility] [address] [id number] [place] [address]- 1374 February, [facility] [place] [facility] [address] [id number] [place] [address]- 8510 Jan, [facility] [place] [facility] [address] [id number] [place] [address]- 3382 Jan, [facility] [place] [facility] [address] [id number] [place] [address]- 9984 Jan, [facility] [place] [facility] [address] [id number] [place] [address]- 8734 Jan, [facility] [place] [facility] [address] [id number] [place] [address]- 3642 Jan, [facility] [place] [facility] [address] [id number] [place] [address]- 2657 Jan, [facility] [place] [facility] [address] [id number] [place] [address] Jan, [facility] [place] [facility] [address] [id number] [place] [address] Jan, [facility] [place] [facility] [address] [id number] [place] [address] Jan, [facility] [place] [facility] [address] [id number] [place] [address] Dec, [facility] [place] [facility] [address] [id number] [place] [address] Dec, [facility] [place] [facility] [address] [id number] [place] [address] Dec, [facility] [place] [facility] [address] [id number] [place] [address] Dec, [facility] [place] [facility] [address] [id number] [place] [address] Dec, [facility] [place] [facility] [address] [id number] [place] [address] Dec, [facility] [place] [facility] [address] [id number] [place] [address] Dec, [facility] [place] [facility] [address] [id number] [place] [address] Dec, [facility] [place] [facility] [address] [id number] [place] [address] Dec, [facility] [place] [facility] [address] [id number] [place] [address] Dec, [facility] [place] [facility] [address] [id number] [place] [address] 14 Dec, 2013 [facility] [place] [facility] [address] [id number] [place] [address] Dec, [facility] [place] [facility] [address] [id number] [place] [address] Dec, [facility] [place] [facility] [address] [id number] [place] [address] 10 Dec, 2013 [facility] [place] [facility] [address] [id number] [place] [address]- [address] Dec, [facility] [place] [facility] [address] [id number] [place] [address]- [address] Dec, [facility] [place] [facility] [address] [id number] [place] [address] Dec, [facility] [place] [facility] [address] [id number] [place] [address] Oct, [facility] [place] [facility] [address] [id number] [place] [address] Oct, [facility] [place] [facility] [address] [id number] [place] [address] Oct, [facility] [place] [facility] [address] [id number] [place] [address] Oct, [facility] [place] [facility] [address] [id number] [place] [address] Oct, [facility] [place] [facility] [address] [id number] [place] [address] Oct, [facility] [place] [facility] [address] [id number] [place] [address] Oct, [facility] [place] [facility] [address] [id number] [place] [address]- [address] Oct, [facility] [place] [facility] [address] [id number] [place] [address] Oct, [facility] [place] [facility] [address] [id number] [place] [address] Oct, [facility] [place] [facility] [address] [id number] [place] [address] Oct, [facility] [place] [facility] [address] [id number] [place] [address] Oct, [facility] [place] [facility] [address] [id number] [place] [address] Oct, [facility] [place] [facility] [address] [id number] [place] [address] 79[address] Oct, [facility] [place] [facility] [address] [id number] [place] [address]- [address] Sep, [facility] [place] [facility] [address] [id number] [place] [address]- [address] Sep, [facility] [place] [facility] [address] [id number] [place] [address]- [address] Sep, [facility] [place] [facility] [address] [id number] [place] [address] Sep, [facility] [place] [facility] [address] [id number] [place] [address] 27 Sep, 2013 [facility] [address] [id number] [place] [address]- [address] 27 Sep, 2012 [facility] [address] [id number] [place] [address]- [address] 27 Sep, 2013 [facility] [address] [id number] [place] [address]- [address] 27 Sep, 2013 [facility] [address] [id number] [place] [address]- [address] 27 Sep, 2013 [facility] [address] [id number] [place] [address]- [address] 27 Sep, 2013 [facility] [address] [id number] [place] [address]- [address] 16 Sep, 2013 [facility] [address] [id number] [place] [address] 16 Sep, 2013 [facility] [address] [id number] [place] [address]- [address] 13 Sep, 2013 [facility] [address] [id number] [place] [address]- [address] 13 Sep, 2013 [facility] [address] [id number] [place] [address]- [address] 10 Sep, 2013 [facility] [address] [id number] [place] [address] 10 Sep, 2013 [facility] [place] [facility] [address] [id number] [place] [address] 4[address] 02 Sep, 2013 [facility] [place] [facility] [address] [id number] [place] [address] 2610 02 Sep, 2013 [facility] [place] [facility] [address] [id number] [place] [address] 8183 15 Aug, 2013 [facility] [place] [facility] [address] [id number] [place] [address] 2388 15 Aug, 2013 [facility] [place] [facility] [address] [id number] [place] [address] 3228 16 Jul, 2012 [facility] [place] [facility] [address] [id number] [place] [address]- 2594 16 Jul, 2012 [facility] [place] [facility] [address] [id number] [place] [address]- 2548 14 Jul, 2012 [facility] [place] [facility] [address] [id number] [place] [address]- 2273 14 Jul, 2012 [facility] [place] [facility] [address] [id number] [place] [address] 7070 08 Jul, 2012 [facility] [place] [facility] [address] [id number] [place] [address]- 5273 20 Jul, 2012 [facility] [place] [facility] [address] [id number] [place] [address] 6623 19 Jul, 2012 [facility] [place] [facility] [address] [id number] [place] [address]- 7599 13 Jul, 2012 [facility] [place] [facility] [address] [id number] [place] [address]- 8221 08 Jul, 2012 [facility] [place] [facility] [address] [id number] [place] [address]- 2541 06 Jul, 2012 [facility] [place] [facility] [address] [id number] [place] [address] 2548 06 Jul, 2012 [facility] [place] [facility] [address] [id number] [place] [address]- 254 06 Jul, 2012 [facility] [place] [facility] [address] [id number] [place] [address] 2548 03 Jul, 2012 [facility] [place] [facility] [address] [id number] [place] [address] 2540 29 May, 2013 [facility] [place] [facility] [address] [id number] [place] [address]- 2547 26 May, 2012 [facility] [place] [facility] [address] [id number] [place] [address] May, [facility] [address] [id number] [place] [address]- 1812 May, [facility] [place] [facility] [address] [id number] [place] [address]- 6039 Apr, [facility] [place] [facility] [address] [id number] [place] [address]- 8040 Apr, [facility] [place] [facility] [address] [id number] [place] [address]- 3318 Apr, [facility] [address] [id number] [place] [address] 7101 Mar, [facility] [place] [facility] [address] [id number] [place] [address]- 5789 Mar, [facility] [place] [facility] [address] [id number] [place] [address]- 9419 Mar, [facility] [place] [facility] [address] [id number] [place] [address]- 7170 Mar, [facility] [place] [facility] [address] [id number] [place] [address]- 4262 February, [facility] [place] [facility] [address] [id number] [place] [address]- 6939 February, [facility] [place] [facility] [address] [id number], [place] [address] 16[address] Jan, [facility] [place] [facility] [address] [id number], [place] [address] 1104 Dec, [facility] [place] [facility] [address] [id number] [place] [address]- 9326 Dec, [facility] [place] [facility] [address] [id number], [place] [address] 37[address] Dec, [facility] [place] [facility] [address] [id number] [place] [address]- 2546 Dec, [facility] [place] [facility] [address] [id number] [place] [address] 3480 28 Dec, 2012 [facility] [address] [id number] [place] [address] 2546 27 Dec, 2012 [facility] [place] [facility] [address] [id number] [place] [address] 2546 26 Dec, 2012 [facility] [address] [id number] [place] [address]- 6716 25 Dec, 2012 [facility] [place] [facility] [address] [id number] [place] [address] 2549 22 Dec, 2012 [facility] [address] [id number] [place] [address]- 1906 15 Dec, 2012 [facility] [place] [facility] [address] [id number] [place] [address]- 7947 14 Dec, 2012 [facility] [place] [facility] [address] [id number] [place] [address]- 9844 31 Oct, 2012 [facility] [address] [id number] [place] [address]- 5631 14 Oct, 2012 [facility] [place] [facility] [address] [id number] [place] [address]- 8699 09 Oct, 2012 [facility] [address] [id number] [place] [address]- 4643 03 Oct, 2012 [facility] [place] [facility] [address] [id number] [place] [address] 7774 Sep, [facility] [place] [facility] [address] [id number] [place] [address] 2546 Sep, [facility] [place] [facility] [address] [id number] [place] [address] 2546 Sep, [facility] [place] [facility] [address] [id number] [place] [address] 2546 Sep, [facility] [place] [facility] [address] [id number] [place] [address] 5585 Sep, [facility] [place] [facility] [address] [id number] [place] [address]- 7393 Sep, [facility] [place] [facility] [address] [id number] [place] [address]- 7576 Aug, [facility] [place] [facility] [address] [facility] [id number] [place] [address]- 0986 Aug, [facility] [place] [facility] [address] [id number] [place] [address]- 8445 Aug, [facility] [place] [facility] [address] [id number] [place] [address]- 0288 Aug, [facility] [place] [facility] [address] [id number] [place] [address], [place] [address] 1973 Aug, [facility] [place] [facility] [address] [facility] [id number] [place] [address]- 5631 Aug, [facility] [place] [facility] [address] [id number], [place] [address] 1007 Jul, [facility] [place] [facility] [address] [id number] [place] [address]- 7755 Jul, [facility] [place] [facility] [address] [facility] [id number], [place] [address] 1867 Jul, [facility] [place] [facility] [address] [id number], [place] [address]- 2250 Jul, [facility] [place] [facility] [address] [id number], [place] [address] 3472 Jul, [facility] [place] [facility] [address] [id number], [place] [address]- 7587 Jul, [facility] [place] [facility] [address] [facility] [id number], [place] [address]- 2268 Jul, [facility] [place] [facility] [address] [facility] [id number], [place] [address]- 2007 Jul, [facility] [place] [facility] [address] [id number] [place] [address]- 0500 20 Jul, 2012 [facility] [place] [facility] [address] [id number] [place] [address]- 2226 Jul, [facility] [place] [facility] [address] [id number] [place] [address] 2546 Jul, [facility] [place] [facility] [address] [id number] [place] [address] 2546 May, [facility] [place] [facility] [address] [id number] [place] [address] 2546 May, [facility] [place] [facility] [address] [id number] [place] [address]- 9360 May, [facility] [place] [facility] [address] [id number] [place] [address]- 0418 May, [facility] [place] [facility] [address] [id number] [place] [address]- 5435 Apr, [facility] [place] [facility] [address] [id number] [place] [address]- 1829 Apr, [facility] [place] [facility] [address] [id number] [place] [address]- 8965 Apr, [facility] [place] [facility] [address] [id number] [place] [address]- 8436 Apr, [facility] [place] [facility] [address] [id number] [place] [address] 2546 Apr, [facility] [place] [facility] [address] [id number] [place] [address]- 2549 Apr, [facility] [place] [facility] [address] [id number] [place] [address] 2546 Apr, [facility] [place] [facility] [address] [id number] [place] [address]- 2546 Apr, [facility] [place] [facility] [address] [id number] [place] [address]- 4406 Mar, [facility] [place] [facility] [address] [id number] [place] [address]- 4588 27 Mar, 2012 [facility] [place] [facility] [address] [id number] [place] [address]- 6078 20 Mar, 2012 [facility] [place] [facility] [address] [id number] [place] [address]- 9546 15 Mar, 2012 [facility] [place] [facility] [address] [id number] [place] [address]- 0611 14 Mar, 2012 [facility] [place] [facility] [address] [id number] [place] [address]- 8175 12 Mar, 2012 [facility] [place] [facility] [address] [id number] [place] [address]- 8373 Mar, [facility] [place] [facility] [address] [id number] [place] [address]- 3144 Mar, [facility] [place] [facility] [address] [id number] [place] [address]- 4075 Mar, [facility] [place] [facility] [address] [id number] [place] [address]- 3874 February, [facility] [place] [facility] [address] [id number] [place] [address]- 6439 February, [facility] [place] [facility] [address] [id number] [place] [address]- 5446 February, [facility] [place] [facility] [address] [id number] [place] [address]- 2719 February, [facility] [place] [facility] [address] [id number] [place] [address]- 0499 Jan, [facility] [place] [facility] [address] [id number] [place] [address]- 4971 03 Jan, 2012 [facility] [place] [facility] [address] [id number] [place] [address]- 5472 Dec, [facility] [place] [facility] [address] [id number] [place] [address]- 7153 15 Dec, 2011 [facility] [address] [id number] [place] [address]- 1386 14 Dec, 2011 [facility] [place] [facility] [address] [id number] [place] [address]- 6606 07 Dec, 2011 [facility] [place] [facility] [address] [id number] [place] [address]- 9766 28 Dec, 2011 [facility] [place] [facility] [address] [id number] [place] [address]- 1349 27 Dec, 2011 [facility] [place] [facility] [address] [id number] [place] [address]- 0266 Dec, [facility] [place] [facility] [address] [id number] [place] [address]- 6596 Dec, [facility] [address] [facility] [id number] [place] [address]- 4513 07 Dec, 2011 [facility] [place] [facility] [address] [id number] [place] [address]- 1027 07 Dec, 2011 [facility] [place] [facility] [address] [id number] [place] [address]- 5874 07 Dec, 2011 [facility] [place] [facility] [address] [facility] [id number] [place] [address]- 8615 Dec, [facility] [place] [facility] [address] [facility] [id number] [place] [address]- 4517 Oct, [facility] [place] [facility] [address] [id number] [place] [address]- 7007 Oct, [facility] [place] [facility] [address] [id number] [place] [address]- 1585 Oct, [facility] [place] [facility] [address] [id number] [place] [address]- 7966 Oct, [facility] [place] [facility] [address] [facility] [id number] [place] [address]- 7665 Oct, [facility] [place] [facility] [address] [id number] [place] [address]- 6777 Oct, [facility] [address] [id number] [place] [address]- 6999 Oct, [facility] [place] [facility] [address] [id number] [place] [address]- 9976 Oct, [facility] [address] [id number] [place] [address]- 9048 Sep, [facility] [address] [id number] [place] [address]- 6575 Sep, [facility] [address] [id number] [place] [address]- 5856 Sep, [facility] [address] [id number] [place] [address]- 5102 Aug, [facility] [address] [id number] [place] [address]- 7777 Aug, [facility] [place] [facility] [address] [id number] [place] [address]- 9922 Aug, [facility] [address] [id number] [place] [address]- 7441 Aug, [facility] [place] [facility] [address] [id number] [place] [address]- 3616 Aug, [facility] [place] [facility] [address] [id number], [place] [address]- 0048 Jul, [facility] [place] [facility] [address] [id number] [place] [address]- 6213 Jul, [facility] [place] [facility] [address] [id number] [place] [address]- 7597 May, [facility] [place] [facility] [address] [id number], [place] [address]- 7767 Dec, [facility] [place] [facility] [address] [id number], [place] [address]- 6766 Oct, [facility] [address] [facility] [id number] [place] [address]- 4636 Sep, [facility] [address] [facility] [id number], [place] [address]- 3776 Sep, [facility] [address] [facility] [id number] [place] [address]- 1355 Sep, IMMUNIZATIONS No Known Immunizations SOCIAL HISTORY Never Assessed REASON FOR VISIT Increased anxiety PLAN OF CARE VITAL SIGNS MEDICATIONS Medication Instructions Dosage Frequency Start Date End Date Duration Status Seroquel 50 mg Orally Once a day 1 tablet 24h Aug, 30 day(s) Active RESULTS No Results PROCEDURES No Known [...] Left Knee SOA-Dr. Melendrez-[facility] 05/19/16 Surgical History Colonoscopy- Dr Castanon 01/26/2017 Hospitalization History surgeries Hospitalization History Left Knee SOA--Dr. Melendrez--[facility] Hospitalization History Septic shock, UTI-[facility] 07/27/17 Hospitalization History Multiple falls, hyperglycemia, sepsis 07/2017 Hospitalization History Alcoholism, depression, DM, Falls-[facility] 08/23/17 Hospitalization History COPD exacerbation-[facility] 11/25/17 Hospitalization History COPD exacerbation-[facility] 11/28/17
--- OUTSIDE RECORDS SUMMARY | 2018-05-10 03:56 | XMS REPORT ---
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 Active 543476273 Problem Psoriatic arthritis L40.50 Active 079267191 Problem Psychophysiological insomnia F51.04 Active 82592144 Problem Other specified 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 Active 390452788 Problem Obesity (BMI 30-39.9) E66.9 Active 239987954 Problem Major depressive disorder, recurrent, moderate F33.1 Active 78078891 Problem Essential hypertension I10 Active 96110714 Problem Type 2 diabetes mellitus with hyperglycemia E11.65 Active [id number] Problem Alcoholism F10.20 Active 5002324 Problem Frequent falls R29.6 Active 725361311 Problem Benzodiazepine abuse F13.10 Active 213611443 Problem PTSD (post-traumatic stress disorder) F43.10 Active 20625291 Problem Eating disorder F50.9 Active 77583947 Problem Attention-deficit hyperactivity disorder, combined type F90.2 Active 00793059 Problem COPD exacerbation J44.1 Active 914352897 Problem Anxiety F41.9 Active 80873562 Problem Decubitus ulcer of left buttock, stage 2 L89.322 Active 161735488 Problem BMI 40.0-44.9, adult Z68.41 Active 826077863 Problem Alcohol abuse F10.10 Active 27805663 Problem Pneumonia due to methicillin resistant Staphylococcus aureus, unspecified laterality, unspecified part of lung J15.212 Active 865170746394963 Problem Type 2 diabetes mellitus with unspecified complications E11.8 Active 84354003 Problem Attention-deficit hyperactivity disorder, predominantly hyperactive type F90.1 Active 951471168 Problem Type 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 Active 28811459 Problem Ulcer of right foot, unspecified ulcer stage L97.519 Active 05426868 Problem Attention deficit R41.840 Active 79149415 Problem Mental disorder, not otherwise specified F99 Active 09646403 Problem Insomnia due to other mental disorder F51.05 Active 91229876 ALLERGIES No Information ENCOUNTERS Encounter Location Date Diagnosis [facility] [id number] [place] [address] 22637- 4867 February, [facility] [id number] [place] [address] 13993- 8455 February, [facility] [id number] [place] [address] 96753- 2099 Jan, [facility] [id number] [place] [address] 51643- 7273 Jan, [facility] [id number] [place] [address] 49207- 4199 Dec, Major depressive disorder, recurrent episode, unspecified severity F33.9 ; Generalized anxiety disorder F41.1 and Eating disorder F50.9 [facility] [id number] [place] [address] 97843- 3213 Dec, [facility] [id number] [place] [address] 75114- 9984 Dec, [facility] [id number] [place] [address] 17546- 0976 Dec, [place] [id number] [place] [address] 59468- 9473 Dec, Increased urinary frequency R35.0 ; Frequent falls R29.6 ; Decubitus ulcer of left buttock, stage 2 L89.322 ; Benzodiazepine abuse F13.10 ; BMI 40.0-44.9, adult Z68.41 and Yeast infection B37.9 [place] [address] [address] Dec, [place] [address] [address] 7828 Dec, [place] [address] [address] 6741 Dec, Increased urinary frequency R35.0 [place] [id number] [place] [address] 13525- 9978 Dec, Increased urinary frequency R35.0 [place] [id number] [place] [address] 95957- 2192 Dec, Generalized anxiety disorder F41.1 ; Major depressive disorder, recurrent, moderate F33.1 and Psychophysiological insomnia F51.04 [place] [address] [place] [address] 44284- 2724 Dec, BMI 40.0-44.9, adult Z68.41 ; Type 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 ; Pneumonia due to methicillin resistant Staphylococcus aureus, unspecified laterality, unspecified part of lung J15.212 and COPD exacerbation J44.1 [facility] [id number] [address] Dec, [facility] [place] [id number] [place] [id number] Dec, [facility] [place] [id number] [place] [id number] Oct, [facility] [address] [address] Oct, Frequency of urination R35.0 ; Bronchitis J40 and BMI 40.0- 44.9, adult Z68.41 [facility] [place] [id number] [place] [id number] Oct, [facility] [id number] [place] [address] 62879- 3240 Oct, [facility] [id number] [place] [address] 68268- 2224 Oct, BMI 40.0-44.9, adult Z68.41 ; Type 2 diabetes mellitus with hyperglycemia E11.65 ; Essential hypertension I10 ; Vaginal yeast infection B37.3 ; Anxiety F41.9 and Alcoholism F10.20 [place] [address] 74899- 5263 Oct, [facility] [id number] [place] [address] 86015- 6763 Oct, [facility] [id number] [place] [address] 31575- 7710 Sep, [address] 6[address]80- 3491 Sep, Major depressive disorder, recurrent episode, unspecified severity F33.9 ; Generalized anxiety disorder F41.1 and Eating disorder F50.9 [id number] [place] [address] 22938- 2464 Sep, Major depressive disorder, recurrent, moderate F33.1 ; Type 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 ; Alcohol abuse F10.10 ; Obesity (BMI 30-39.9) E66.9 and Psychophysiological insomnia F51.04 [place] [id number] [place] [address] 42320- 6610 Sep, Diabetes E11.9 and Generalized anxiety disorder F41.1 [facility] [facility] [id number] [place] [address] 48657- 0863 Sep, Major depressive disorder, recurrent episode, unspecified severity F33.9 ; Generalized anxiety disorder F41.1 and Eating disorder F50.9 [id number] [place] [address] 02221- 1948 Sep, [id number] [place] [address] 65502- 3918 Aug, [place] [address] [address] 4182 Aug, Insomnia due to other mental disorder F51.05 ; Mental disorder, not otherwise specified F99 ; Attention deficit R41.840 ; Ulcer of right foot, unspecified ulcer stage L97.519 ; Cough R05 ; Diabetes E11.9 ; Sore in mouth K13.79 ; Generalized anxiety disorder F41.1 ; Major depressive disorder , recurrent episode, unspecified severity F33.9 and BMI 40.0-44.9, adult Z68.41 [place] [address] [place] [address] 10853- 7516 Aug, [facility] [facility] [id number] [place] [address] 30369- 0944 Aug, [place] [facility] [id number] [place] [address] 74409- 1137 Aug, [place] [address] [address]- 3457 Aug, [place] [id number] [place] [address] 42878- 4839 Aug, Diabetes E11.9 [facility] [address] [place] [id number] Aug, Falling R29.6 ; Alcohol abuse F10.10 ; Major depressive disorder, recurrent episode, unspecified severity F33.9 ; Hypertension I10 ; Type 2 diabetes mellitus with unspecified complications E11.8 and 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 [place] [id number] [place] [id number] Aug, [facility] [address] [place] [id number] Aug, Alcohol abuse F10.10 ; Major depressive disorder, recurrent episode, unspecified severity F33.9 ; Generalized anxiety disorder F41.1 ; jail current use of insulin Z79.4 ; Psoriatic arthritis L40.50 and Diabetes E11.9 [place] [id number] [place] [address] Aug, [facility] [id number] [place] [address] [id number] Jul, [facility] [address] [address]- 35[address] Jul, [facility] [id number] [place] [address] 58451- 6795 Jul, Generalized anxiety disorder F41.1 [facility] [address] [address]- 7493 Jul, [facility] [id number] [place] [address] 27675- 6524 Jul, [facility] [id number] [place] [address] 69597- 5484 Jul, Generalized anxiety disorder F41.1 ; Major depressive disorder, recurrent episode, unspecified severity F33.9 ; PTSD (post-traumatic stress disorder) F43.10 ; Eating disorder F50.9 and Attention-deficit hyperactivity disorder, predominantly hyperactive type F90.1 [facility] [address] [address]- 7897 Jul, [facility] [address] [address]- 4486 Jul, [facility] [address] [address]- 9224 Jul, jail current use of insulin Z79.4 ; Type 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 [id number] [address] Jul, [facility] [id number] [place] [address] 25552- 4681 Jul, Generalized anxiety disorder F41.1 [facility] [id number] [place] [address] 78726- 4429 Jul, [facility] [id number] [place] [address] 05809- 6451 Jul, Generalized anxiety disorder F41.1 [facility] [id number] [place] [address] 18287- 5917 May, Generalized anxiety disorder F41.1 ; Major depressive disorder, recurrent episode, unspecified severity F33.9 ; PTSD (post-traumatic stress disorder) F43.10 ; Eating disorder F50.9 and Attention-deficit hyperactivity disorder, predominantly hyperactive type F90.1 [facility] [id number] [place] [address] 85059- 8001 May, Diabetes E11.9 [facility] [id number] [place] [address] 70194 -8623 May, Acute non-recurrent maxillary sinusitis J01.00 and Diabetes E11.9 [facility] [id number] [place] [address] 94937- 2313 May, [facility] [id number] [place] [address] 21273- 1562 May, [facility] [id number] [place] [address] 42687- 7212 May, Generalized anxiety disorder F41.1 [facility] [id number] [place] [address] 44249- 9755 Apr, [facility] [id number] [place] [address] 11654- 3574 Apr, [facility] [id number] [place] [address] 95667- 8335 Apr, [facility] [id number] [place] [address] 21379- 8432 Apr, Generalized anxiety disorder F41.1 ; Major depressive disorder, recurrent episode, unspecified severity F33.9 ; PTSD (post-traumatic stress disorder) F43.10 ; Eating disorder F50.9 and Attention-deficit hyperactivity disorder, predominantly hyperactive type F90.1 [place] [id number] [place] [address] 95414- 9269 Apr, Major depressive disorder, recurrent, moderate F33.1 [place] [id number] [place] [address] 53419- 5981 Mar, Diabetes E11.9 [place] [id number] [place] [address] 00463- 2777 Mar, Attention-deficit hyperactivity disorder, combined type F90.2 [place] [id number] [place] [address] 82993- 5843 Mar, [place] [address] 47232- 8465 Mar, Diabetes E11.9 [place] [id number] [place] [address] 15594- 0860 Mar, jail current use of insulin Z79.4 ; Psoriatic arthritis L40.50 ; Other specified 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 and Hypertension I10 [place] [id number] [place] [address] 18370- 4380 February, Back pain M54.9 [place] [id number] [place] [address] 59940- 7333 February, Attention-deficit hyperactivity disorder, combined type F90.2 [place] [id number] [place] [address] 72443- 9835 February, Major depressive disorder, recurrent episode, unspecified severity F33.9 and Generalized anxiety disorder F41.1 [place] [id number] [place] [address] 18098- 6661 Jan, Attention-deficit hyperactivity disorder, combined type F90.2 [place] [address] [place] [address]- 0878 Jan, Major depressive disorder, recurrent, moderate F33.1 ; Generalized anxiety disorder F41.1 and Attention-deficit hyperactivity disorder , combined type F90.2 [facility] [id number] [place] [address] 04023- 2377 Dec, Major depressive disorder, recurrent episode, unspecified severity F33.9 ; Generalized anxiety disorder F41.1 and Attention-deficit hyperactivity disorder, predominantly hyperactive type F90.1 [facility] [id number] [place] [address] 63413- 7861 Dec, Major depressive disorder, recurrent episode, unspecified severity F33.9 and Generalized anxiety disorder F41.1 [place] [id number] [place] [address] 88383- 3504 Dec, [place] [id number] [place] [address] 73441- 3618 Dec, [place] [id number] [place] [address] 57973- 0172 Dec, Major depressive disorder, recurrent episode, unspecified severity F33.9 and Generalized anxiety disorder F41.1 [place] [id number] [place] [address] 36382- 3091 Dec, Back pain M54.9 [place] [id number] [place] [address] 57105- 7803 17 Dec, 2016 Eustachian tube dysfunction, right H69.81 and Arthritis M19.90 [place] [id number] [place] [address] 39888- 5235 Dec, [place] [address] 47018- 5361 Dec, [place] [id number] [place] [address] 74589- 9803 07 Dec, 2016 Major depressive disorder, recurrent episode, unspecified severity F33.9 [place] [address] [address]- 2535 Oct, [facility] [id number] [place] [address] 40568 -4538 Oct, Acute non-recurrent pansinusitis J01.40 and Sore throat J02.9 [facility] [id number] [place] [address] 97165- 0713 Oct, Major depressive disorder, recurrent episode, unspecified severity F33.9 [place] [id number] [place] [address] 48153- 5178 Oct, Major depressive disorder, recurrent episode, unspecified severity F33.9 and Generalized anxiety disorder F41.1 [place] [id number] [place] [address] 97568- 5780 Sep, [place] [id number] [place] [address] 80465- 2241 Sep, Major depressive disorder, recurrent episode, unspecified severity F33.9 [place] [id number] [place] [address] 70884- 1217 Sep, Major depressive disorder, recurrent episode, unspecified severity F33.9 [facility] [id number] [place] [address] 97922 -7564 Sep, Sore throat J02.9 [place] [id number] [place] [address] 21117- 9931 15 Sep, 2016 Generalized anxiety disorder F41.1 ; Major depressive disorder, recurrent episode, unspecified severity F33.9 and Attention-deficit hyperactivity disorder, predominantly hyperactive type F90.1 [place] [id number] [place] [address] 60505- 9369 08 Sep, 2016 Major depressive disorder, recurrent episode, unspecified severity F33.9 and Generalized anxiety disorder F41.1 [place] [address] [place] [address] 97483- 1399 07 Sep, 2016 Psoriatic arthritis L40.50 [facility] [id number] [place] [address] 87956- 0250 02 Sep, 2016 Diabetes E11.9 ; 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 ; Back pain M54.9 and Encounter for immunization Z23 [facility] [id number] [place] [address] 97519- 3524 Aug, [facility] [address] 35786- 5941 Aug, [place] [id number] [place] [address] 87038- 9242 Jul, Major depressive disorder, recurrent episode, unspecified severity F33.9 ; Attention-deficit hyperactivity disorder, predominantly hyperactive type F90.1 and Generalized anxiety disorder F41.1 [place] [id number] [place] [address] 36181- 5665 Jul, [place] [id number] [place] [address] 95705- 4304 Jul, Major depressive disorder, recurrent, in partial remission F33.41 and Generalized anxiety disorder F41.1 [place] [id number] [place] [address] 74869- 2681 Jul, [place] [id number] [place] [address] 63748- 8731 Jul, [place] [id number] [place] [address] 02463- 8482 Jul, [place] [id number] [place] [address] 00266- 0275 Jul, [place] [id number] [place] [address] 05162- 4606 Jul, Diabetes E11.9 [facility] [id number] [place] [address] 23648- 5589 May, [place] [id number] [place] [address] 24094- 8375 May, [facility] [id number] [place] [address] 70892- 2232 May, [facility] [id number] [place] [address] 25872- 6141 May, Major depressive disorder, recurrent episode, unspecified severity F33.9 ; Generalized anxiety disorder F41.1 and Attention-deficit hyperactivity disorder, predominantly hyperactive type F90.1 [facility] [id number] [place] [address] 15625- 5704 May, [facility] [id number] [place] [address] 34903- 9665 May, Diabetes E11.9 [place] [id number] [place] [address] 20916- 2105 May, [place] [id number] [place] [address] 40168- 8329 May, [facility] [address] [place] [id number] May, Diabetes E11.9 ; Generalized anxiety disorder F41.1 and Nausea R11.0 [place] [id number] [place] [address] 33682- 0723 May, Psoriatic arthritis L40.50 and Candidiasis of female genitalia B37.3 [place] [id number] [place] [address] 27346- 7513 May, [facility] [id number] [place] [address] 20887- 1755 Apr, [facility] [id number] [place] [address] 93343- 5315 Apr, [facility] [id number] [place] [address] 15124- 4954 Apr, [facility] [id number] [place] [address] 18048- 2165 Apr, Generalized anxiety disorder F41.1 ; Major depressive disorder, recurrent episode, unspecified severity F33.9 and Attention-deficit hyperactivity disorder, predominantly hyperactive type F90.1 [facility] [address] [address]- 9949 Apr, [facility] [id number] [place] [address] 95934- 2356 Apr, [facility] [id number] [place] [address] 74103- 6969 Apr, [facility] [id number] [place] [address] 22718- 5046 Apr, [facility] [id number] [place] [address] 82515- 9298 Apr, [facility] [id number] [place] [address] 37140- 0088 Mar, Attention-deficit hyperactivity disorder, predominantly hyperactive type F90.1 [facility] [id number] [place] [address] 48380- 1649 Mar, [facility] [id number] [place] [address] 90684- 0736 Mar, [facility] [id number] [place] [address] 88685- 3203 Mar, Major depressive disorder, recurrent episode, unspecified severity F33.9 and Generalized anxiety disorder F41.1 [facility] [address] [address]- 4119 February, Diabetes E11.9 [facility] [address] [address] February, OME (otitis media with effusion), bilateral H65.93 [facility] [id number] [place] [address] 97038- 6105 February, Back pain M54.9 [facility] [id number] [place] [address] 55805- 0862 February, [facility] [id number] [place] [address] 40659- 9308 February, Nausea R11.0 [place] [id number] [place] [address] 02018- 4037 February, [facility] [id number] [place] [address] 33595- 8500 February, Pre-op evaluation Z01.818 ; Type 2 diabetes mellitus with hyperglycemia E11.65 and 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 [place] [id number] [place] [address] 15354- 2323 February, [facility] [id number] [place] [address] 52762 -4905 February, Right otitis externa H60.91 [place] [id number] [place] [address] 20028- 4425 Jan, [place] [id number] [place] [address] 54630- 7114 Jan, Psoriatic arthritis L40.50 and Arthralgia, unspecified joint M25.50 [place] [address] [id number] [place] [address] 37497- 4024 Jan, Major depressive disorder, recurrent episode, unspecified severity F33.9 ; Generalized anxiety disorder F41.1 and Attention-deficit hyperactivity disorder, unspecified type F90.9 [place] [id number] [place] [address] 61983- 7675 Jan, [place] [address] [place] [id number] [place] [address] 16388- 3687 Jan, [place] [address] [place] [id number] [place] [address] 58844- 5248 Jan, Major depressive disorder, recurrent episode, unspecified severity F33.9 and Generalized anxiety disorder F41.1 [place] [address] [place] [id number] [place] [address] 36224- 1181 Jan, [facility] [address] [address] 7620 Dec, Hypertension I10 and Arthritis M19.90 [facility] [address] [address] 1236 Dec, [facility] [address] [address]- 6099 Dec, [facility] [address] [id number] [place] [address] 00576- 9712 Dec, [facility] [address] [id number] [place] [address] 34090- 1854 Dec, [facility] [address] [place] [id number] [place] [address] 71535- 7974 Dec, [facility] [address] [id number] [place] [address] 40770- 5656 Dec, Major depressive disorder, recurrent episode, unspecified severity F33.9 and Generalized anxiety disorder F41.1 [facility] [id number] [place] [address] 39320- 2299 Dec, Diabetes E11.9 ; Back pain M54.9 ; Thrush B37.0 and Hypertension I10 [facility] [address] [address] 4924 Dec, Major depressive disorder, recurrent episode, unspecified severity F33.9 and Generalized anxiety disorder F41.1 [facility] [address] [address]- 8569 04 Dec, 2015 Major depressive disorder, recurrent episode, in partial or unspecified remission 296.35 ; Major depressive disorder, recurrent episode, unspecified severity F33.9 and Generalized anxiety disorder 300.02 [facility] [address] [address]- 4422 Dec, [facility] [id number] [place] [address] 45978- 0702 Oct, [facility] [address] [id number] [place] [address] 69645- 6589 Oct, [facility] [address] [id number] [place] [address] 96931- 4564 Oct, [facility] [address] [id number] [place] [address] 31717- 1018 Oct, [facility] [address] 66411- 4727 Oct, Major depressive disorder, recurrent, moderate F33.1 and Attention-deficit hyperactivity disorder, unspecified type F90.9 [place] [address] 04602- 7439 Oct, jail (current) use of opiate analgesic Z79.891 [place] [address] 00046- 4371 Oct, [facility] [address] 40707- 1010 Oct, [facility] [address] 70973 -3100 Sep, URI (upper respiratory infection) J06.9 ; Psoriasis L40.9 ; Cough R05 and Tobacco abuse Z72.0 [place] [address] [place] [id number] [place] [address] 96859- 5723 Sep, Major depressive disorder, recurrent episode, in partial or unspecified remission 296.35 ; Generalized anxiety disorder 300.02 and ADHD, 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 [facility] [address] [id number] [place] [address] 93613 -3812 Sep, Acute sinusitis, unspecified J01.90 [facility] [address] [id number] [place] [address] 75018- 9301 Sep, [facility] [address] [place] [id number] [place] [address] 02597- 2381 Sep, Major depressive disorder, recurrent, moderate F33.1 ; Generalized anxiety disorder F41.1 and Attention-deficit hyperactivity disorder , combined type F90.2 [facility] [address] [id number] [place] [address] 54227- 9327 Sep, [facility] [address] [id number] [place] [address] 68368- 5898 Aug, [facility] [address] [id number] [place] [address] 12464- 5392 Aug, [facility] [address] [place] [id number] [place] [address] 17224- 4354 Aug, Diabetes E11.9 and Anxiety F41.9 [facility] [address] [place] [id number] [place] [address] 67589- 1336 Aug, Major depressive disorder, recurrent episode, unspecified severity F33.9 and Generalized anxiety disorder F41.1 [facility] [address] [place] [id number] [place] [address] 45010- 9043 Aug, [facility] [address] [place] [id number] [place] [address] 13022- 9168 Jul, [facility] [address] [place] [id number] [place] [address] 28508- 4236 Jul, [facility] [address] [address]- 5963 Jul, [facility] [address] [place] [id number] [place] [address] 56679- 7683 Jul, [facility] [id number] [place] [address] 01141- 3454 Jul, Major depressive disorder, recurrent episode, in partial or unspecified remission 296.35 ; Generalized anxiety disorder 300.02 and ADHD, 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 [facility] [address] [address]- 6395 10 Jul, 2015 Major depressive disorder, recurrent episode, in partial or unspecified remission 296.35 ; Generalized anxiety disorder 300.02 and ADHD, 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 [facility] [id number] [place] [address] 37103- 9667 Jul, [facility] [address] [place] [id number] [place] [address] 64455- 1334 May, [facility] [address] [place] [id number] [place] [address] 63963- 3340 May, [facility] [address] [place] [id number] [place] [address] 59420- 2633 May, DM w/o complication type II 250.00 ; Dyspepsia 536.8 and PAD (peripheral artery disease) 443.9 [facility] [address] [place] [id number] [place] [address] 52709- 4960 May, Major depressive disorder, recurrent episode, moderate 296.32 and Generalized anxiety disorder 300.02 [facility] [address] [place] [id number] [place] [address] 54604- 7583 May, [facility] [address] [id number] [place] [address] 91538- 2322 May, Major depressive disorder, recurrent episode, moderate 296.32 and Generalized anxiety disorder 300.02 [facility] [address] [place] [id number] [place] [address] 21289- 2792 May, [facility] [id number] [place] [address] 50764- 1297 Apr, [facility] [address] [place] [id number] [place] [address] 80752- 5257 Apr, Major depressive disorder, recurrent episode, moderate 296.32 and Generalized anxiety disorder 300.02 [facility] [address] [place] [id number] [place] [address] 34990- 8125 Apr, [facility] [id number] [place] [address] 80217- 6009 Apr, [facility] [address] [place] [id number] [place] [address] 88270- 5094 Apr, Generalized anxiety disorder 300.02 ; ADHD, 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 and Depression, major, recurrent, moderate 296.32 [facility] [address] 3458 Apr, Major depressive disorder, recurrent episode, moderate 296.32 and Generalized anxiety disorder 300.02 [facility] [id number] [place] [address] 16665- 7620 Apr, [facility] [id number] [place] [address] 43053- 6288 Apr, [facility] [address] [place] [id number] [place] [address] 07135- 5041 Mar, [facility] [address] [place] [id number] [place] [address] 14293- 9851 Mar, Major depressive disorder, recurrent episode, moderate 296.32 and Generalized anxiety disorder 300.02 [facility] [address] [address]- 5360 Mar, ADHD, 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 ; Major depressive disorder, recurrent episode, severe, without mention of psychotic behavior 296.33 and Generalized anxiety disorder 300.02 [facility] [address] [address]- 8284 February, Major depressive disorder, recurrent episode, moderate 296.32 and Generalized anxiety disorder 300.02 [facility] [address] [address]- 1966 February, [facility] [address] [address]- 9209 February, [facility] [address] [place] [id number] [place] [address] 69981- 8016 February, [facility] [address] [address]- 7324 February, [facility] [address] [place] [id number] [place] [address] 04590- 6967 February, DM w/o complication type II 250.00 ; Impacted cerumen 380.4 ; Essential hypertension, benign 401.1 and Irritable colon 564.1 [facility] [address] [address]- 3657 February, [facility] [id number] [address]- 6776 February, [facility] [address] [place] [id number] [place] [address] 81765- 2553 Jan, [facility] [address] [id number] [place] [address] 57062- 0355 Dec, [facility] [id number] [address]- 8293 Dec, [facility] [id number] [place] [address] 79178- 4879 Dec, [facility] [address] [address]- 0877 Dec, [facility] [address] [address]- 3484 Dec, [facility] [address] [address]- 3716 Dec, [facility] [address] [address]- 9155 Dec, [facility] [address] [address]- 0942 Dec, [facility] [address] 1939 Dec, [facility] [address] 6585 Dec, [facility] [address] 7378 Dec, [facility] [place] [facility] [address] [id number] [place] [address]- 6638 Dec, [facility] [place] [facility] [address] [id number] [place] [address]- 3982 Dec, [facility] [place] [facility] [address] [id number] [place] [address]- 8012 Dec, 2014 [facility] [place] [facility] [address] [id number] [place] [address]- 0199 Dec, [facility] [place] [facility] [address] [id number] [place] [address]- 5600 Dec, [facility] [place] [facility] [address] [id number] [place] [address]- 1725 Oct, [facility] [place] [facility] [address] [id number] [place] [address]- 4175 Oct, [facility] [place] [facility] [address] [id number] [place] [address]- 9598 Oct, [facility] [place] [facility] [address] [id number] [place] [address]- 7803 Oct, [facility] [place] [facility] [address] [id number] [place] [address]- 4417 Oct, [facility] [place] [facility] [address] [id number] [place] [address]- 2568 Oct, [facility] [place] [facility] [address] [id number] [address]- 5568 Oct, [facility] [place] [facility] [address] [id number] [place] [address]- 4543 Oct, [facility] [place] [facility] [address] [id number] [place] [address]- 6318 Oct, [facility] [place] [facility] [address] [id number] [place] [address]- 0584 Oct, [facility] [place] [facility] [address] [id number] [place] [address]- 4027 Oct, [facility] [place] [facility] [address] [id number] [place] [address]- 6523 Sep, [facility] [place] [facility] [address] [id number] [place] 9173 Sep, [facility] [place] [facility] [address] [id number] [place] [address]- 8984 Sep, [facility] [place] [facility] [address] [id number] [place] [address]- 7470 Sep, [facility] [place] [facility] [address] [id number] [place] [address]- 4973 Sep, [facility] [place] [facility] [address] [id number] [place] [address]- 0500 Sep, [facility] [place] [facility] [address] [id number] [place] [address]- 4133 Sep, [facility] [place] [facility] [address] [id number] [place] [address]- 0210 Sep, [facility] [place] [facility] [address] [id number] [place] [address]- 0277 Aug, [facility] [place] [facility] [address] [id number] [place] [address]- 5452 Aug, [facility] [place] [facility] [address] [id number] [place] [address]- 2374 Aug, [facility] [place] [facility] [address] [id number] [place] [address]- 6250 Aug, [facility] [place] [facility] [address] [id number] [place] [address]- 5210 Aug, [facility] [place] [facility] [address] [id number] [place] [address]- 1221 Aug, [facility] [place] [facility] [address] [id number] [place] [address]- 1732 Aug, [facility] [place] [facility] [address] [id number] [place] [address]- 2231 Aug, [facility] [place] [facility] [address] [id number] [place] [address]- 1044 Aug, [facility] [place] [facility] [address] [id number] [place] 5502 Aug, [facility] [place] [facility] [address] [id number] [place] [address]- 9539 Aug, [facility] [place] [facility] [address] [id number] [place] [address]- 5491 Aug, [facility] [place] [facility] [address] [id number] [place] [address]- 3607 Aug, [facility] [place] [facility] [address] [id number] [place] [address]- 7097 Aug, [facility] [place] [facility] [address] [id number] [place] [address]- 9908 Jul, [facility] [place] [facility] [address] [id number] [place] [address]- 5005 Jul, [facility] [place] [facility] [address] [id number] [place] [address]- 0260 Jul, [facility] [place] [facility] [address] [id number] [place] [address]- 4119 Jul, [facility] [place] [facility] [address] [id number] [place] [address]- 3900 Jul, [facility] [place] [facility] [address] [id number] [place] [address]- 7072 Jul, [facility] [place] [facility] [address] [id number] [place] [address]- 4599 Jul, [facility] [place] [facility] [address] [id number] [place] [address]- 7934 Jul, [facility] [place] [facility] [address] [id number] [place] 9708 Jul, [facility] [place] [facility] [address] [id number] [place] [address]- 4719 Jul, [facility] [place] [facility] [address] [id number] [place] [address]- 6916 Jul, [facility] [place] [facility] [address] [id number] [place] [address]- 7361 Jul, [facility] [place] [facility] [address] [id number] [place] [address]- 1832 Jul, [facility] [place] [facility] [address] [id number] [place] [address]- 4396 Jul, [facility] [place] [facility] [address] [id number] [place] [address]- 7518 May, [facility] [place] [facility] [address] [id number] [place] [address]- 3450 May, [facility] [place] [facility] [address] [id number] [place] [address]- 1545 May, [facility] [place] [facility] [address] [id number] [place] [address]- 6259 May, [facility] [place] [facility] [address] [id number] [place] [address]- 7022 May, [facility] [place] [facility] [address] [id number] [place] [address]- 5026 May, [facility] [place] [facility] [address] [id number] [place] [address]- 0293 May, [facility] [place] [facility] [address] [id number] [place] [address]- 2291 May, [facility] [place] [facility] [address] [id number] [place] [address]- 5606 May, [facility] [place] [facility] [address] [id number] [place] [address]- 7047 May, [facility] [place] [facility] [address] [id number] [place] [address]- 4488 May, [facility] [place] [facility] [address] [id number] [place] [address]- 6620 May, [facility] [place] [facility] [address] [id number] [place] [address]- 0652 Apr, [facility] [place] [facility] [address] [id number] [place] [address]- 1338 Apr, [facility] [place] [facility] [address] [id number] [place] [address]- 5161 Apr, [facility] [place] [facility] [address] [id number] [place] [address]- 2957 Apr, [facility] [place] [facility] [address] [id number] [place] [address]- 1863 Apr, [facility] [place] [facility] [address] [id number] [place] [address]- 0379 Apr, [facility] [place] [facility] [address] [id number] [place] [address]- 7866 Mar, [facility] [place] [facility] [address] [id number] [place] [address]- 0259 Mar, [facility] [place] [facility] [address] [id number] [place] [address]- 4410 Mar, [facility] [place] [facility] [address] [id number] [place] [address]- 0457 Mar, [facility] [place] [facility] [address] [id number] [place] [address]- 0440 Mar, [facility] [place] [facility] [address] [id number] [place] [address]- 2179 Mar, [facility] [place] [facility] [address] [id number] [place] [address]- 7681 Mar, [facility] [place] [facility] [address] [id number] [place] [address]- 7017 Mar, [facility] [place] [facility] [address] [id number] [place] [address]- 8541 Mar, [facility] [place] [facility] [address] [id number] [place] [address]- 2626 Mar, [facility] [place] [facility] [address] [id number] [place] [address]- 9810 Mar, [facility] [place] [facility] [address] [id number] [place] [address]- 0736 Mar, [facility] [place] [facility] [address] [id number] [place] [address]- 8711 Mar, [facility] [place] [facility] [address] [id number] [place] [address]- 4587 February, [facility] [place] [facility] [address] [id number] [place] [address]- 2757 February, [facility] [place] [facility] [address] [id number] [place] [address]- 2014 February, [facility] [place] [facility] [address] [id number] [place] [address]- 0452 February, [facility] [place] [facility] [address] [id number] [place] [address]- 3171 February, [facility] [place] [facility] [address] [id number] [place] [address]- 9030 February, [facility] [place] [facility] [address] [id number] [place] [address]- 7795 February, [facility] [place] [facility] [address] [id number] [place] [address]- 1238 February, [facility] [place] [facility] [address] [id number] [place] [address]- 7886 February, [facility] [place] [facility] [address] [id number] [place] [address]- 4445 February, [facility] [place] [facility] [address] [id number] [place] [address]- 7065 February, [facility] [place] [facility] [address] [id number] [place] [address]- 2502 February, [facility] [place] [facility] [address] [id number] [place] [address]- 7619 February, [facility] [place] [facility] [address] [id number] [place] [address]- 5717 February, [facility] [place] [facility] [address] [id number] [place] [address]- 9482 Jan, [facility] [place] [facility] [address] [id number] [place] [address]- 6580 Jan, [facility] [place] [facility] [address] [id number] [place] [address]- 3034 Jan, [facility] [place] [facility] [address] [id number] [place] [address]- 0020 Jan, [facility] [place] [facility] [address] [id number] [place] [address]- 3429 Jan, [facility] [place] [facility] [address] [id number] [place] [address]- 3611 Jan, [facility] [place] [facility] [address] [id number] [place] [address]- 1487 Jan, [facility] [place] [facility] [address] [id number] [place] [address]- 2164 Jan, [facility] [place] [facility] [address] [id number] [place] [address] Jan, [facility] [place] [facility] [address] [id number] [place] [address] Dec, [facility] [place] [facility] [address] [id number] [place] [address] Dec, [facility] [place] [facility] [address] [id number] [place] [address] Dec, [facility] [place] [facility] [address] [id number] [place] [address] Dec, [facility] [place] [facility] [address] [id number] [place] [address] Dec, [facility] [place] [facility] [address] [id number] [place] [address] Dec, [facility] [place] [facility] [address] [id number] [place] [address] Dec, [facility] [place] [facility] [address] [id number] [place] [address] Dec, [facility] [place] [facility] [address] [id number] [place] [address] Dec, [facility] [place] [facility] [address] [id number] [place] [address] Dec, [facility] [place] [facility] [address] [id number] [place] [address] 14 Dec, 2013 [facility] [place] [facility] [address] [id number] [place] [address] Dec, [facility] [place] [facility] [address] [facility] [place] [id number] [place] [address] Dec, [facility] [place] [facility] [address] [facility] [place] [id number] [place] [address] 10 Dec, 2013 [facility] [place] [facility] [address] [id number] [place] [address] Dec, [facility] [place] [facility] [address] [id number] [place] [address] Dec, [facility] [place] [facility] [address] [id number] [place] [address] Dec, [facility] [place] [facility] [address] [id number] [place] [address] Oct, [facility] [place] [facility] [address] [id number] [place] [address] Oct, [facility] [place] [facility] [address] [id number] [place] [address]- [address] Oct, [facility] [place] [facility] [address] [id number] [place] [address]- [address] Oct, [facility] [place] [facility] [address] [id number] [place] [address]- [address] Oct, [facility] [place] [facility] [address] [id number] [place] [address] Oct, [facility] [place] [facility] [address] [id number] [place] [address]- [address] Oct, [facility] [place] [facility] [address] [id number] [place] [address] Oct, [facility] [place] [facility] [address] [id number] [place] [address] Oct, [facility] [place] [facility] [address] [id number] [place] [address] Oct, [facility] [place] [facility] [address] [id number] [place] [address] Oct, [facility] [place] [facility] [address] [id number] [place] [address] Oct, [facility] [place] [facility] [address] [id number] [place] [address] Oct, [facility] [place] [facility] [address] [id number] [place] [address] Oct, [facility] [place] [facility] [address] [id number] [place] [address] Sep, [facility] [place] [facility] [address] [id number] [place] [address]- [address] Sep, [facility] [place] [facility] [address] [id number] [place] [address] Sep, [facility] [place] [facility] [address] [id number] [place] [address] 30 Sep, 2012 [facility] [address] [id number] [place] [address] 27 Sep, 2012 [facility] [place] [facility] [address] [id number] [place] [address]- [address] 27 Sep, 2013 [facility] [address] [id number] [place] [address]- [address] 27 Sep, 2012 [facility] [place] [facility] [address] [id number] [place] [address]- [address] 27 Sep, 2013 [facility] [address] [id number] [place] [address] 27 Sep, 2013 [facility] [address] [address] [id number] [place] [address] 27 Sep, 2013 [facility] [address] [id number] [place] [address] 6[address] 16 Sep, 2013 [facility] [address] [id number] [place] [address] 7[address] 16 Sep, 2013 [facility] [place] [facility] [address] [id number] [place] [address] 1506 13 Sep, 2013 [facility] [address] [id number] [place] [address] 5438 13 Sep, 2013 [facility] [place] [facility] [address] [id number] [place] [address] 9146 10 Sep, 2013 [facility] [place] [facility] [address] [id number] [place] [address] 8001 10 Sep, 2013 [facility] [place] [facility] [address] [id number] [place] [address] 8138 02 Sep, 2013 [facility] [place] [facility] [address] [id number] [place] [address] 5635 02 Sep, 2013 [facility] [place] [facility] [address] [id number] [place] [address] 3827 15 Aug, 2013 [facility] [place] [facility] [address] [id number] [place] [address] 8271 15 Aug, 2013 [facility] [place] [facility] [address] [id number] [place] [address] 2715 16 Jul, 2013 [facility] [place] [facility] [address] [id number] [place] [address] 2549 16 Jul, 2013 [facility] [place] [facility] [address] [id number] [place] [address]- 1645 14 Jul, 2013 [facility] [place] [facility] [address] [id number] [place] [address]- 9642 14 Jul, 2013 [facility] [place] [facility] [address] [id number] [place] [address]- 6911 08 Jul, 2013 [facility] [place] [facility] [address] [id number] [place] [address]- 5425 20 Jul, 2012 [facility] [place] [facility] [address] [id number] [place] [address]- 4611 19 Jul, 2012 [facility] [place] [facility] [address] [id number] [place] [address]- 8661 13 Jul, 2012 [facility] [place] [facility] [address] [id number] [place] [address]- 8837 08 Jul, 2012 [facility] [place] [facility] [address] [id number] [place] [address]- 5260 06 Jul, 2012 [facility] [place] [facility] [address] [id number] [address] 1644 06 Sep, 2012 [facility] [place] [facility] [address] [id number] [place] [address]- 9319 06 Sep, 2012 [facility] [place] [facility] [address] [id number] [place] [address]- 5123 03 Jul, 2012 [facility] [place] [facility] [address] [id number] [place] [address]- 1225 29 May, 2013 [facility] [place] [facility] [address] [id number] [address] 56[address] May, [facility] [address] [id number] [place] [address]- 6943 May, [facility] [place] [facility] [address] [id number] [place] [address] 3839 May, [facility] [place] [facility] [address] [id number] [place] [address]- 6619 Apr, [facility] [place] [facility] [address] [id number] [place] [address]- 3322 Apr, [facility] [place] [facility] [address] [id number] [place] [address]- 4560 Apr, [facility] [place] [facility] [address] [id number] [place] [address]- 3274 Mar, [facility] [place] [facility] [address] [id number] [place] [address]- 1655 Mar, [facility] [place] [facility] [address] [id number] [place] [address]- 8290 Mar, [facility] [place] [facility] [address] [id number] [place] [address]- 5047 Mar, [facility] [place] [facility] [address] [id number] [place] [address]- 6774 February, [facility] [place] [facility] [address] [id number] [place] [address] 7996 February, [facility] [place] [facility] [address] [id number] [place] [address]- 1607 Jan, [facility] [place] [facility] [address] [id number] [place] [address] Dec, [facility] [place] [facility] [address] [id number] [place] [address]- 4281 Dec, [facility] [place] [facility] [address] [id number] [place] [address]- 2015 Dec, [facility] [place] [facility] [address] [id number] [place] [address]- 3837 Dec, [facility] [address] [id number] [place] [address] 1770 28 Dec, 2012 [facility] [place] [facility] [address] [id number] [place] [address]- 0136 Dec, [facility] [address] [id number] [place] [address] 5816 Dec, [facility] [place] [facility] [address] [id number] [place] [address]- 2521 Dec, [facility] [address] [id number] [place] [address]- 7862 Dec, [facility] [address] [id number] [place] [address]- 3531 15 Dec, 2012 [facility] [address] [id number] [place] [address] 6169 14 Dec, 2012 [facility] [address] [id number] [place] [address]- 6250 Oct, [facility] [address] [facility] [place] [id number] [place] [address] 6060 Oct, [facility] [address] [id number] [place] [address] 7748 Oct, [facility] [address] [id number] [place] [address] 8994 Oct, [facility] [place] [facility] [address] [id number] [place] [address] 6384 Sep, [facility] [place] [facility] [address] [id number] [place] [address]- 6577 Sep, [facility] [place] [facility] [address] [id number] [place] [address] 7614 Sep, [facility] [place] [facility] [address] [id number] [place] [address]- 2546 Sep, [facility] [place] [facility] [address] [id number] [place] [address]- 3470 Sep, [facility] [place] [facility] [address] [id number] [place] [address]- 0612 Sep, [facility] [place] [facility] [address] [id number] [place] [address]- 2110 Aug, [facility] [place] [facility] [address] [id number] [place] [address]- 7018 Aug, [facility] [place] [facility] [address] [id number] [place] [address]- 4827 Aug, [facility] [place] [facility] [address] [id number] [place] [address]- 3503 Aug, [facility] [place] [facility] [address] [id number] [place] [address] Aug, [facility] [place] [facility] [address] [id number] [place] [address]- 3697 Aug, [facility] [place] [facility] [address] [id number] [place] [address]- 6930 Jul, [facility] [place] [facility] [address] [id number] [place] [address]- 5028 Jul, [facility] [place] [facility] [address] [id number] [place] [address]- 9751 Jul, [facility] [place] [facility] [address] [id number] [place] [address] Jul, [facility] [place] [facility] [address] [id number] [place] [address]- 4100 Jul, [facility] [place] [facility] [address] [id number] [place] [address]- 4593 Jul, [facility] [place] [facility] [address] [id number] [place] [address]- 1998 Jul, [facility] [place] [facility] [address] [id number] [place] [address]- 2779 21 Jul, 2012 [facility] [place] [facility] [address] [id number] [place] [address]- 8316 20 Jul, 2012 [facility] [place] [facility] [address] [id number] [place] [address] 2546 Jul, [facility] [address] [id number] [place] [address]- 7046 Jul, [facility] [place] [facility] [address] [id number] [place] [address]- 2940 May, [facility] [address] [id number] [place] [address]- 2458 May, [facility] [place] [facility] [address] [id number] [place] [address]- 8316 May, [facility] [address] [id number] [place] [address]- 4670 May, [facility] [address] [id number] [place] [address]- 6144 Apr, [facility] [place] [facility] [address] [id number] [place] [address]- 9367 Apr, [facility] [address] [id number] [place] [address]- 7294 Apr, [facility] [place] [facility] [address] [id number] [place] [address]- 2544 Apr, [facility] [place] [facility] [address] [id number] [place] [address]- 2545 Apr, [facility] [place] [facility] [address] [id number] [place] [address]- 8620 Apr, [facility] [place] [facility] [address] [id number] [place] [address] 2546 Apr, [facility] [place] [facility] [address] [id number] [place] [address] Apr, [facility] [place] [facility] [address] [id number] [place] [address]- 4067 28 Mar, 2012 [facility] [place] [facility] [address] [id number] [place] [address]- 4737 27 Mar, 2012 [facility] [place] [facility] [address] [id number] [place] [address]- 3823 20 Mar, 2012 [facility] [place] [facility] [address] [id number] [place] [address]- 4850 15 Mar, 2012 [facility] [place] [facility] [address] [id number] [place] [address]- 4035 14 Mar, 2012 [facility] [place] [facility] [address] [id number] [place] [address]- 9214 Mar, [facility] [place] [facility] [address] [id number] [place] [address]- 3131 Mar, [facility] [place] [facility] [address] [id number] [place] [address]- 8341 Mar, [facility] [place] [facility] [address] [id number] [place] [address]- 8675 Mar, [facility] [place] [facility] [address] [id number] [place] [address]- 1275 February, [facility] [place] [facility] [address] [id number] [place] [address]- 3558 February, [facility] [place] [facility] [address] [id number] [place] [address]- 0305 February, [facility] [place] [facility] [address] [id number] [place] [address]- 4169 February, [facility] [place] [facility] [address] [id number] [place] [address]- 9391 13 Jan, 2012 [facility] [place] [facility] [address] [id number] [place] [address]- 3981 03 Jan, 2012 [facility] [place] [facility] [address] [id number] [place] [address]- 6949 28 Dec, 2011 [facility] [address] [id number] [place] [address]- 5946 15 Dec, 2011 [facility] [place] [facility] [address] [id number] [place] [address]- 6736 14 Dec, 2011 [facility] [address] [facility] [place] [id number] [place] [address]- 3596 07 Dec, 2011 [facility] [address] [id number] [place] [address]- 4961 28 Dec, 2011 [facility] [address] [id number] [place] [address]- 6886 27 Dec, 2011 [facility] [address] [id number] [place] [address]- 0296 21 Dec, 2011 [facility] [address] [id number] [place] [address]- 4449 21 Dec, 2011 [facility] [address] [id number] [place] [address]- 0722 07 Dec, 2011 [facility] [address] [facility] [place] [id number] [place] [address]- 8984 07 Dec, 2011 [facility] [address] [facility] [place] [id number] [place] [address]- 1506 07 Dec, 2011 [facility] [place] [facility] [address] [facility] [place] [id number] [place] [address] 2546 Dec, [facility] [address] [id number] [place] [address]- 7331 Oct, [facility] [place] [facility] [address] [id number] [place] [address]- 9696 Oct, [facility] [place] [facility] [address] [facility] [place] [id number] [place] [address]- 1180 Oct, [facility] [place] [facility] [address] [facility] [place] [id number] [place] [address]- 1670 Oct, [facility] [place] [facility] [address] [id number] [place] [address]- 0822 Oct, [facility] [place] [facility] [address] [id number] [place] [address]- 8334 Oct, [facility] [place] [facility] [address] [id number] [place] [address]- 1417 16 Oct, 2011 [facility] [place] [facility] [address] [id number] [place] [address]- 4297 Oct, [facility] [place] [facility] [address] [id number] [place] [address]- 7629 Sep, [facility] [place] [facility] [address] [id number] [place] [address]- 9853 Sep, [facility] [place] [facility] [address] [id number] [place] [address]- 4062 Sep, [facility] [place] [facility] [address] [id number] [place] [address]- 1483 Aug, [facility] [place] [facility] [address] [id number] [place] [address]- 9520 Aug, [facility] [place] [facility] [address] [id number] [place] [address]- 7136 Aug, [facility] [place] [facility] [address] [id number] [place] [address]- 7616 Aug, [facility] [place] [facility] [address] [id number] [place] [address]- 5797 Aug, [facility] [place] [facility] [address] [id number] [place] [address]- 3262 Jul, [facility] [place] [facility] [address] [id number] [place] [address]- 3400 Jul, [facility] [place] [facility] [address] [id number] [place] [address]- 4376 May, [facility] [place] [facility] [address] [id number] [place] [address]- 0078 Dec, [facility] [address] [facility] [place] [id number] [place] [address]- 9988 Oct, [facility] [address] [facility] [place] [id number] [place] [address]- 0326 Sep, [facility] [address] [facility] [place] [id number] [place] [address]- 0552 Sep, [facility] [address] [facility] [place] [id number] [place] [address]- 2082 Sep, IMMUNIZATIONS No Known Immunizations SOCIAL HISTORY Never Assessed REASON FOR VISIT Medication refill request PLAN OF CARE VITAL SIGNS MEDICATIONS Medication Instructions Dosage Frequency Start Date End Date Duration Status Wellbutrin XL 150 MG Orally Once a [...] veinous reflux Surgical History Left Knee SOA-Dr. Melendrez-[facility] 05/19/16 Surgical History Colonoscopy- Dr Castanon 01/26/2017 Hospitalization History surgeries Hospitalization History Left Knee SOA--Dr. Melendrez--[facility] Hospitalization History Septic shock, UTI-[facility] 07/27/17 Hospitalization History Multiple falls, hyperglycemia, sepsis 07/2017 Hospitalization History Alcoholism, depression, DM, Falls-[facility] 08/23/17 Hospitalization History COPD exacerbation-[facility] 11/25/17 Hospitalization History COPD exacerbation-[facility] 11/28/17
[2018-05-10 03:57] LABS: PROTHROMBIN TIME PATIENT 13.5 SEC (12.2-14.7)
[2018-05-10 04:04] LABS: ALANINE AMINOTRANSFERASE 9 U/L (0-55); ALBUMIN 4.1 GM/DL (3.2-4.5); ALKALINE PHOSPHATASE 137 U/L (40-136); BILIRUBIN,TOTAL 0.6 MG/DL (0.1-1.0); BUN/CREATININE RATIO 18; CALCIUM 9.8 MG/DL (8.5-10.1); CARBON DIOXIDE 19 MMOL/L (21-32); CHLORIDE 98 MMOL/L (98-107); CREATININE SERUM 0.88 MG/DL (0.60-1.30); GFR ESTIMATED > 60; GLUCOSE 299 MG/DL (70-105); POTASSIUM 3.8 MMOL/L (3.6-5.0); SODIUM 132 MMOL/L (135-145); TOTAL PROTEIN 7.2 GM/DL (6.4-8.2)
[2018-05-10] MEDS ORDERED: TRAM50TA2 (04:34)
[2018-05-10] MEDS ORDERED: KETOROLAC 30 MG/ML VIAL IVP STA (04:51)
[2018-05-10] MEDS ORDERED: cefTRIAXone INJECTION 1,000 MG in NS (IVPB) 50 ML IV ONE (05:00)
[2018-05-10] MEDS ORDERED: LEVO500T80 PO (05:45)
[2018-05-10 05:55] VITALS: BP 168/89
--- NOTE | 2018-05-10 08:20 | Diagnostic Imaging Report ---
INDICATION: Hypertension, urinary tract infection, dizziness.. TECHNIQUE: Single view chest 4:04 AM. CORRELATION STUDY: 01/20/2018 FINDINGS: Unchanged prominent elevation of the right diaphragm with right lung volume loss. Lungs otherwise relatively clear. Heart size, mediastinum and vasculature overall generally stable. IMPRESSION: 1. Generally stable chest. Right lung volume loss with elevated right diaphragm. Dictated by: Dictated on workstation # [id number]
== END 2018-05-10 05:55 | disposition home or self-care (01) ==
LOC: EDUNIT# 03:09 → ER 03:13
DX: N39.0 Urinary tract infection, site not specified (principal); J44.9 Chronic obstructive pulmonary disease, unspecified; I10 Essential (primary) hypertension; K21.9 Gastro-esophageal reflux disease without esophagitis; E11.9 Type 2 diabetes mellitus without complications; F41.9 Anxiety disorder, unspecified; F32.9 Major depressive disorder, single episode, unspecified; F90.9 Attention-deficit hyperactivity disorder, unspecified type; Z87.19 Personal history of other diseases of the digestive system; F17.210 Nicotine dependence, cigarettes, uncomplicated; Z87.59 Personal history of other complications of pregnancy, childbirth and the puerperium; Z88.2 Allergy status to sulfonamides; Z88.5 Allergy status to narcotic agent; Z79.4 Long term (current) use of insulin; Z90.710 Acquired absence of both cervix and uterus
CPT/HCPCS: 36415; 71045; 80053; 81000; 82962; 83605; 85025; 85610; 85730; 87040; 87077; 87088; 87186; 96361; 96365; 96375

== ENCOUNTER 2018-08-17 15:01 | Inpatient (IN) | payer MEDICARE ==
[~2018-08-17] VITALS: Ht 165.1 cm; Wt 114.7 kg
[~2018-08-17 15:01] MED LIST changes: +LEVO500T80 PO; -LOSA25TA21 PO; +LOSA25TA6 PO; -LOSA50TA36 PO; +LOSA50TA7 PO; -OXYC-197 PO; +OXYC1TAB87 PO; +TRAM50TA2
--- NOTE | 2018-08-17 17:08 | History & Physicial (CHS) ---
HPI History of Present Illness: 63 yo F that presented to clinic with acute shortness of breath for the last week. Came to walkin clinic at [facility] yesterday due to increasing shortness of breath and worsening cough. Was given 1 dose of steroids and started on cefdinir to cover for PNA. She has been taking her breathing treatments every 4- 6 hrs since leaving the clinic with not improvement. States that she feels like she is going to . She is having coughing fits any time she trys to take a drink or eat anything since yesterday. States that last week her temps were running in the 100s but has not had any fevers this week. Has not missed any doses of her medications. Feels like she is more swollen then usual and does not have any lasix at home which she was using PRN for shortness of breath. Seen in clinic today by myself with minimal improvement and was direct admission to hospital. Source: patient, old records Exam Limitations: no limitations Date seen by provider: Aug 17, 2018 Time Seen by Provider: 13:15 Attending Physician Reji Mendes MD PCP Reji Mendes MD Consult Date of Admission Aug 17, 2018 at 15:12 Home Medications Home Medications Reviewed patient Home Medication Reconciliation performed by pharmacy medication reconciliations poultry field service technician and/or nursing. Patients Allergies have been reviewed. Allergies Coded Allergies: Sulfa (Sulfonamide Antibiotics) (Verified Allergy, Unknown, 08/26/14) morphine (Verified Adverse Reaction, Mild, NAUSEA, 05/19/16) TOR-Njnfso-Vzbkbe Hx Patient Social History Alcohol Use: Denies Use Recreational Drug Use: No (STATES STOPPED DRINKING A YEAR AGO) Drug of Choice: PT DENIES Smoking Status: Former Smoker Type Used: Cigarettes 2nd Hand Smoke Exposure: Yes Recent Foreign Travel: No Contact w/other who traveled: No Recent Hopitalizations: No Recent Infectious Disease Expo: No Physical Abuse Screen: No Sexual Abuse: No Immunizations Up To Date Tetanus Booster (TDap): Less than 5yrs Date of Pneumonia Vaccine: Aug 31, 2017 Date of Influenza Vaccine: Jul 31, 2018 Past Medical History IDDM HTN Tobacco USE Arthritis Alcohol Abuse Medical Noncompliance Frequent Falls Family Medical History Significant Family History: No Pertinent Family Hx Family History: AIDS Alcoholism Arthritis Asthma Cataracts Coronary thrombosis Diabetes mellitus Drug abuse Glaucoma Psychosocial problem Respiratory disorder No Family History of: Freeborn's disease Alzheimer's disease Aphasia Cancer of mouth Cardiovascular disease Colon cancer Completed stroke Congenital disease Congenital heart disease Cystic fibrosis Deafness or hearing loss Dementia Dysphasia Fibrocystic disease of breast Gastroenteritis Headache disorder Hypercholesterolemia Hypertension Infertility Kidney disease Myocardial infarction Neoplasm Not obtainable due to adoption Osteoporosis Parkinson's disease Prostate cancer Seizure disorder Severe allergy Thyroid disease Tuberculosis Visual disorder Review of Systems ([facility]) Constitutional: chills; No dizziness; weakness EENTM: nose congestion, throat pain Respiratory: cough, dyspnea on exertion, orthopnea, short of breath Cardiovascular: No chest pain; edema; No palpitations Gastrointestinal: No constipation, No diarrhea; loss of appetite; No nausea, No vomiting Genitourinary: No dysuria; frequency; No hematuria : No Musculoskeletal: back pain, joint pain Skin: no symptoms reported; No lesions, No rash Psychiatric/Neurological: Numbness, Weakness Reviewed Test Results Reviewed Test Results Lab Laboratory Tests Test 08/17/18 17:46 Range/Units White Blood Count 12.3 H 4.3-11.0 10^3/uL Red Blood Count 4.87 4.35-5.85 10^6/uL Hemoglobin 14.1 11.5-16.0 G/DL Hematocrit 41 35-52 % Mean Corpuscular Volume 84 80-99 FL Mean Corpuscular Hemoglobin 29 25-34 PG Mean Corpuscular Hemoglobin Concent 35 32-36 G/DL Red Cell Distribution Width 13.4 10.0-14.5 % Platelet Count 253 130-400 10^3/uL Mean Platelet Volume 8.8 7.4-10.4 FL Neutrophils (%) (Auto) 79 H 42-75 % Lymphocytes (%) (Auto) 14 12-44 % Monocytes (%) (Auto) 7 0-12 % Eosinophils (%) (Auto) 0 0-10 % Basophils (%) (Auto) 0 0-10 % Neutrophils # (Auto) 9.7 H 1.8-7.8 X 10^3 Lymphocytes # (Auto) 1.7 1.0-4.0 X 10^3 Monocytes # (Auto) 0.8 0.0-1.0 X 10^3 Eosinophils # (Auto) 0.0 0.0-0.3 10^3/uL Basophils # (Auto) 0.0 0.0-0.1 10^3/uL Sodium Level 130 L 135-145 MMOL/L Potassium Level 3.9 3.6-5.0 MMOL/L Chloride Level 92 L 98-107 MMOL/L Carbon Dioxide Level 28 21-32 MMOL/L Anion Gap 10 5-14 MMOL/L Blood Urea Nitrogen 13 7-18 MG/DL Creatinine 0.84 0.60-1.30 MG/DL Estimat Glomerular Filtration Rate > 60 BUN/Creatinine Ratio 15 Glucose Level 368 H 70-105 MG/DL Lactic Acid Level 1.36 0.50-2.00 MMOL/L Calcium Level 9.4 8.5-10.1 MG/DL Corrected Calcium 9.6 8.5-10.1 MG/DL Total Bilirubin 0.5 0.1-1.0 MG/DL Aspartate Amino Transf (AST/SGOT) 10 5-34 U/L Alanine Aminotransferase (ALT/SGPT) 12 0-55 U/L Alkaline Phosphatase 128 40-136 U/L Total Protein 6.9 6.4-8.2 GM/DL Albumin 3.7 3.2-4.5 GM/DL Radiology CXR x 2 at clinic showed no acute concerns. Physical Exam-([facility]) Physical Exam Vital Signs VS - Last 72 Hours, by Label 08/17/18 08/17/18 16:28 20:18 Pulse 72 Pulse Ox 94 O2 Delivery Nasal Cannula O2 Flow Rate 4.00 Capillary Refill : General Appearance: moderate distress HEENT: PERRL/EOMI, pharyngeal erythema; No tonsillar exudate Neck: non-tender, full range of motion, supple Respiratory: decreased breath sounds, crackles, wheezing Cardiovascular: normal peripheral pulses, regular rate, rhythm, no murmur Gastrointestinal: normal bowel sounds, non tender, soft, no organomegaly Back: no CVA tenderness, no vertebral tenderness Extremities: non-tender, no calf tenderness, normal capillary refill, pedal edema (2+ equal bilaterally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: network strategist II-XII nml as tested, no motor/sensory deficits, alert, normal mood/affect, oriented x 3 Skin: normal color, warm/dry Lymphatic: no adenopathy Assessment/Plan Assessment/Plan Admission Status: Inpatient Order (span 2 midnights) Reason for Inpatient Admission: requiring oxygen and IV antibiotics (1) COPD (chronic obstructive pulmonary disease) with acute bronchitis Status: Acute Assessment & Plan: - AB and steroids, MAT protocol with scheduled and PRN breathing treatments, coughing with eating, NPO speech to see patient tomorrow (2) Hypoxia Status: Acute (3) Type 2 diabetes mellitus, with long-term current use of insulin Status: Chronic Assessment & Plan: - Started on Levemir 20 BID, SSI A, ACHS blood sugars Qualifiers: Qualified Codes: E11.65 - Type 2 diabetes mellitus with hyperglycemia; Z79.4 - halfway (current) use of insulin (4) Hypertension Status: Chronic Assessment & Plan: - Continue home meds Qualifiers: Qualified Codes: I10 - Essential (primary) hypertension (5) Depression Status: Chronic Assessment & Plan: - Continue home meds Qualifiers: Qualified Codes: F33.1 - Major depressive disorder, recurrent, moderate (6) Debility Status: Chronic Assessment & Plan: PT ordered (7) DVT prophylaxis Status: Acute Assessment & Plan: Lovenox Clinical Quality Measures DVT/VTE Risk/Contraindication: Risk Factor Score Per Nursin RFS Level Per Nursing on Admit: 4+=Very High Copy Copies To 1: REJI MENDES MD, HOLLY R MD Aug 17, 2018 17:08
[2018-08-17 18:05] LABS: BASOPHILS % (AUTO) 0 % (0-10); EOSINOPHILS % (AUTO) 0 % (0-10); HEMATOCRIT 41 % (35-52); HEMOGLOBIN 14.1 G/DL (11.5-16.0); LYMPHOCYTES # (AUTO) 1.7 X 10^3 (1.0-4.0); LYMPHOCYTES % (AUTO) 14 % (12-44); MEAN CORPUSCULAR HEMOGLOBIN 29 PG (25-34); MEAN CORPUSCULAR HGB CONC 35 G/DL (32-36); MEAN CORPUSCULAR VOLUME 84 FL (80-99); MEAN PLATELET VOLUME 8.8 FL (7.4-10.4); MONOCYTES # (AUTO) 0.8 X 10^3 (0.0-1.0); MONOCYTES % (AUTO) 7 % (0-12); NEUTROPHILS # (AUTO) 9.7 X 10^3 (1.8-7.8); NEUTROPHILS % (AUTO) 79 % (42-75); PLATELET COUNT 253 10^3/uL (130-400); RED BLOOD COUNT 4.87 10^6/uL (4.35-5.85); RED CELL DISTRIBUTION WIDTH 13.4 % (10.0-14.5); WHITE BLOOD COUNT 12.3 10^3/uL (4.3-11.0)
[2018-08-17] MEDS: cefTRIAXone FOR IV USE 1,000 MG in NS (IVPB) 50 ML IV SCH (18:19)
[2018-08-17 18:20] LABS: ALANINE AMINOTRANSFERASE 12 U/L (0-55); ALBUMIN 3.7 GM/DL (3.2-4.5); ALKALINE PHOSPHATASE 128 U/L (40-136); BILIRUBIN,TOTAL 0.5 MG/DL (0.1-1.0); BUN/CREATININE RATIO 15; CALCIUM 9.4 MG/DL (8.5-10.1); CARBON DIOXIDE 28 MMOL/L (21-32); CHLORIDE 92 MMOL/L (98-107); CREATININE SERUM 0.84 MG/DL (0.60-1.30); GFR ESTIMATED > 60; GLUCOSE 368 MG/DL (70-105); POTASSIUM 3.9 MMOL/L (3.6-5.0); SODIUM 130 MMOL/L (135-145); TOTAL PROTEIN 6.9 GM/DL (6.4-8.2)
[2018-08-17] MEDS: ENOXAPARIN 40 MG/0.4 ML (LOVENOX) SYR SC SCH (18:22)
[2018-08-17] MEDS ORDERED: FURO-125 PO (18:57)
[2018-08-17 20:10] VITALS: BP 152/73
[2018-08-17] MEDS ORDERED: RT-ALBUTEROL/IPRATROPIUM 3 ML (DUONEB) VIAL INH PRN (21:45)
[2018-08-17] MEDS: inSUlin DETERMIR 1 UNIT/0.01 ML (LEVEMIR) CHARGE PER UNIT SQ SCH (22:07)
[2018-08-17] MEDS: MICONAZOLE 2% POWDER (DESENEX AF) 90 GM TOP SCH (22:07)
[2018-08-18 00:36] VITALS: BP 135/61
[2018-08-18 04:49] VITALS: BP 140/77
[2018-08-18 05:14] LABS: BASOPHILS % (AUTO) 0 % (0-10); EOSINOPHILS # (AUTO) 0.1 10^3/uL (0.0-0.3); EOSINOPHILS % (AUTO) 2 % (0-10); HEMATOCRIT 39 % (35-52); HEMOGLOBIN 13.4 G/DL (11.5-16.0); LYMPHOCYTES # (AUTO) 2.3 X 10^3 (1.0-4.0); LYMPHOCYTES % (AUTO) 28 % (12-44); MEAN CORPUSCULAR HEMOGLOBIN 29 PG (25-34); MEAN CORPUSCULAR HGB CONC 34 G/DL (32-36); MEAN CORPUSCULAR VOLUME 86 FL (80-99); MEAN PLATELET VOLUME 8.7 FL (7.4-10.4); MONOCYTES # (AUTO) 0.5 X 10^3 (0.0-1.0); MONOCYTES % (AUTO) 6 % (0-12); NEUTROPHILS # (AUTO) 5.3 X 10^3 (1.8-7.8); NEUTROPHILS % (AUTO) 64 % (42-75); PLATELET COUNT 235 10^3/uL (130-400); RED BLOOD COUNT 4.58 10^6/uL (4.35-5.85); RED CELL DISTRIBUTION WIDTH 13.7 % (10.0-14.5); WHITE BLOOD COUNT 8.2 10^3/uL (4.3-11.0)
[2018-08-18 05:35] LABS: ALANINE AMINOTRANSFERASE 12 U/L (0-55); ALBUMIN 3.3 GM/DL (3.2-4.5); ALKALINE PHOSPHATASE 119 U/L (40-136); BILIRUBIN,TOTAL 0.3 MG/DL (0.1-1.0); BUN/CREATININE RATIO 16; CALCIUM 9.2 MG/DL (8.5-10.1); CARBON DIOXIDE 29 MMOL/L (21-32); CHLORIDE 93 MMOL/L (98-107); CREATININE SERUM 0.92 MG/DL (0.60-1.30); GFR ESTIMATED > 60; GLUCOSE 392 MG/DL (70-105); POTASSIUM 3.7 MMOL/L (3.6-5.0); SODIUM 133 MMOL/L (135-145); TOTAL PROTEIN 6.1 GM/DL (6.4-8.2)
[2018-08-18] MEDS: inSUlin ASPART (NovoLOG) 1 UNIT/0.01 ML (CHARGE PER UNIT) SC SCH ×4 (06:51→21:55)
[2018-08-18] MEDS: predniSONE 20 MG TAB PO SCH ×2 (06:52→06:55)
[2018-08-18] MEDS: ENOXAPARIN 40 MG/0.4 ML (LOVENOX) SYR SC SCH ×2 (06:52→17:07)
[2018-08-18] MEDS: MULTIVIT W/MINERALS TAB (THERAGRAN M) PO SCH ×2 (06:52→06:55)
--- NOTE | 2018-08-18 06:59 | Diagnostic Imaging Report ---
INDICATION: Lower respiratory infection. Portable chest 4:02 AM FINDINGS: Heart size and pulmonary vascularity are normal. Lungs are clear. There are no effusions or pneumothoraces. IMPRESSION: Negative chest. Dictated by: Dictated on workstation # [id number]
[2018-08-18] MEDS ORDERED: FUROSEMIDE 40 MG/4 ML INJ (LASIX) IVP ONE (07:00)
[2018-08-18] MEDS: RT-ALBUTEROL/IPRATROPIUM 3 ML (DUONEB) VIAL INH SCH ×4 (07:02→20:27)
[2018-08-18 08:00] VITALS: BP 156/72
[2018-08-18] MEDS ORDERED: TRAZ150T72 PO (08:58)
[2018-08-18] MEDS ORDERED: CEFD300C3 PO (08:58)
[2018-08-18] MEDS ORDERED: SERT100T8 PO (08:58)
[2018-08-18] MEDS ORDERED: LOSA25TA6 PO (08:58)
[2018-08-18] MEDS ORDERED: RANI150T46 PO (08:59)
[2018-08-18] MEDS ORDERED: NON-FORMULARY MEDICATION 1 EA EA (Losartan Potassium 50 MG) PO SCH (09:00)
[2018-08-18] MEDS ORDERED: NON-FORMULARY MEDICATION 1 EA EA (Multivitamin (Daily Multiple Vitamin) 1 TAB) PO SCH (09:00)
[2018-08-18] MEDS: cefTRIAXone FOR IV USE 1,000 MG in NS (IVPB) 50 ML IV SCH (09:09)
[2018-08-18] MEDS: PANTOPRAZOLE 40 MG (PROTONIX) TAB PO SCH (09:09)
[2018-08-18] MEDS: inSUlin DETERMIR 1 UNIT/0.01 ML (LEVEMIR) CHARGE PER UNIT SQ SCH ×2 (09:10→21:54)
[2018-08-18] MEDS: LOSARTAN 50 MG (COZAAR) TAB PO SCH (09:10)
[2018-08-18] MEDS: MICONAZOLE 2% POWDER (DESENEX AF) 90 GM TOP SCH ×2 (09:10→21:55)
[2018-08-18 12:00] VITALS: BP 149/72
[2018-08-18] MEDS: IBUPROFEN 600 MG (MOTRIN) TAB PO PRN (14:25)
--- NOTE | 2018-08-18 14:38 | ST Dysphagia Evaluation ---
Speech Evaluation-General Medical Diagnosis SOB Onset Date: Aug 17, 2018 Therapy Diagnosis Therapy Diagnosis: Dysphagia Precautions Precautions/Isolations: Standard Precautions Referral Referring Physician: Dr. Courtney Mendes Medical History Pertinent Medical History: Alcoholism, Arthritis, COPD, DM, GERD, HTN, Smoking Speech PLF/Current-Dysphagia Prior Level of Function pt independent no report of past dysphagia. Subjective Pt in chair. Pleasant and cooperative. Cognitive Status Patient Orientation: Person Oral Motor Skills Dentition: Natural Ability to Follow Directions: Good WFL Voice Voice Phonatory-Based Quality: Normal Voice Pitch: Normal Voice Loudness: Normal Oral-Facial Assessment Oral-Facial Dentition: Normal Labial Seal Description: Normal Smile: Normal Volitional Dry Swallow: Yes Voluntary Cough: Yes Can Clear Throat Volitionally: Yes Dysphagia Evaluation Consistencies Presented: Regular, Thin Liquid, Mechanical Soft, Pureed WFL WFL Dietary Recommendations: Mechanical Soft Liquid Recommendations: Thin Pt was noted to cough frequently even when no PO trials were done. Dysphagia Evaluation Summary Functional swallow. Pt agreed to a [facility] soft diet texture. Barriers to Learning None identified Speech Short Term Goals Short Term Goals Short Term Goals No goals established as pt did not exhibit any dysphagic symptoms. Speech Nursing Home Goals Nursing Home Goals no goals established as pt does not require skilled ST. Speech-Plan Patient/Family Goals Patient/Family Goals: return to home Treatment Plan Speech Therapy Treatment Plan: Discontinue ST Pt does not require skilled ST. She did not exhibit any s/s of aspiration. Frequency: Modified Program (IRF) (0) Estimated Hrs Per Day: Other (0) Rehab Potential: Good Pt/Family Agrees to Plan: Yes Safety Risks/Education Teaching Recipient: Patient Teaching Methods: Discussion Response to Teaching: Verbalize Understanding Time Speech Therapy Time In: 09:00 Speech Therapy Time Out: 09:25 Total Billed Time: 25 Billed Treatment Time 1, DYEVS FERNANDO Mosley Aug 18, 2018 14:38
[2018-08-18 16:40] VITALS: BP 111/56
--- NOTE | 2018-08-18 17:04 | Progress Note (SOAP) ---
Subjective Subjective/Events-last exam States that she is feeling alittle better this AM. Still having coughing fits with shortness of breath. Denies any fever or chills. Review of Systems Date Seen by Provider: Aug 18, 2018 Time Seen by Provider: 11:45 General: No Chills; Fatigue, Malaise Pulmonary: Dyspnea, Cough Cardiovascular: Edema; No: Chest Pain, Palpitations Gastrointestinal: No: Nausea, Vomiting, Abdominal Pain, Diarrhea, Constipation Neurological: Weakness Focused Exam Lactate Level 08/17/18 17:46: Lactic Acid Level 1.36 Objective Exam Last Set of Vital Signs Vital Signs Date Time Temp Pulse Resp B/P (MAP) Pulse Ox O2 Delivery O2 Flow Rate FiO2 08/18/18 16:00 97 4.00 08/18/18 12:00 96.9 75 22 149/72 (97) Nasal Cannula 08/17/18 21:31 36 Capillary Refill : I&O Intake and Output 08/18/18 00:00 Intake Total 1210 ml Balance 1210 ml Intake Oral 1210 ml # Voids 1 Daily Weight Change No General: Alert, Oriented X3, Cooperative, Mild Distress Neck: Supple, No JVD Lungs: Other (Dimished breath sounds, wheezing diffuse) Heart: Regular Rate, No Murmurs Abdomen: Normal Bowel Sounds, Soft, No Tenderness Extremities: Other (2+ pitting edema bilaterally) Skin: No Rashes, No Breakdown Neuro: Sensation Intact, Cranial Nerves 3-12 NL Psych/Mental Status: Mental Status NL, Mood NL Results/Procedures Lab Laboratory Tests 08/17/18 17:46: White Blood Count 12.3H, Red Blood Count 4.87, Hemoglobin 14.1, Hematocrit 41, Mean Corpuscular Volume 84, Mean Corpuscular Hemoglobin 29, Mean Corpuscular Hemoglobin Concent 35, Red Cell Distribution Width 13.4, Platelet Count 253, Mean Platelet Volume 8.8, Neutrophils (%) (Auto) 79H, Lymphocytes (%) (Auto) 14 , Monocytes (%) (Auto) 7, Eosinophils (%) (Auto) 0, Basophils (%) (Auto) 0, Neutrophils # (Auto) 9.7H, Lymphocytes # (Auto) 1.7, Monocytes # (Auto) 0.8, Eosinophils # (Auto) 0.0, Basophils # (Auto) 0.0, Sodium Level 130L, Potassium Level 3.9, Chloride Level 92L, Carbon Dioxide Level 28, Anion Gap 10, Blood Urea Nitrogen 13, Creatinine 0.84, Estimat Glomerular Filtration Rate > 60, BUN/ Creatinine Ratio 15, Glucose Level 368H, Lactic Acid Level 1.36, Calcium Level 9.4, Corrected Calcium 9.6, Total Bilirubin 0.5, Aspartate Amino Transf (AST/ SGOT) 10, Alanine Aminotransferase (ALT/SGPT) 12, Alkaline Phosphatase 128, Total Protein 6.9, Albumin 3.7 08/18/18 04:40: White Blood Count 8.2, Red Blood Count 4.58, Hemoglobin 13.4, Hematocrit 39, Mean Corpuscular Volume 86, Mean Corpuscular Hemoglobin 29, Mean Corpuscular Hemoglobin Concent 34, Red Cell Distribution Width 13.7, Platelet Count 235, Mean Platelet Volume 8.7, Neutrophils (%) (Auto) 64, Lymphocytes (%) (Auto) 28, Monocytes (%) (Auto) 6, Eosinophils (%) (Auto) 2, Basophils (%) (Auto) 0, Neutrophils # (Auto) 5.3, Lymphocytes # (Auto) 2.3, Monocytes # (Auto) 0.5, Eosinophils # (Auto) 0.1, Basophils # (Auto) 0.0, Sodium Level 133L, Potassium Level 3.7, Chloride Level 93L, Carbon Dioxide Level 29, Anion Gap 11, Blood Urea Nitrogen 15, Creatinine 0.92, Estimat Glomerular Filtration Rate > 60, BUN/ Creatinine Ratio 16, Glucose Level 392H, Calcium Level 9.2, Corrected Calcium 9.8, Total Bilirubin 0.3, Aspartate Amino Transf (AST/SGOT) 6, Alanine Aminotransferase (ALT/SGPT) 12, Alkaline Phosphatase 119, Total Protein 6.1L, Albumin 3.3 08/18/18 05:28: Glucometer 357H 08/18/18 10:48: Glucometer 273H Microbiology 08/17/18 Blood Culture - Preliminary, Resulted No growth 08/17/18 Influenza Types A,B Antigen (LAXMI) - Final, Complete Radiology CXR x 2 at clinic showed no acute concerns. Assessment/Plan Assessment/Plan (1) Acute and chronic respiratory failure Status: Acute Assessment & Plan: - AB, steroids, MAT protocol, PT, wean oxygen as tolerated, Will start daily lasix, echo pending (2) COPD (chronic obstructive pulmonary disease) with acute bronchitis Status: Acute Assessment & Plan: - AB and steroids, MAT protocol with scheduled and PRN breathing treatments (3) Hypoxia Status: Acute (4) Type 2 diabetes mellitus, with long-term current use of insulin Status: Chronic Assessment & Plan: - Started on Levemir 20 BID, SSI A, ACHS blood sugars Qualifiers: Qualified Codes: E11.65 - Type 2 diabetes mellitus with hyperglycemia; Z79.4 - intermediate project manager (current) use of insulin (5) Hypertension Status: Chronic Assessment & Plan: - Continue home meds Qualifiers: Qualified Codes: I10 - Essential (primary) hypertension (6) Depression Status: Chronic Assessment & Plan: - Continue home meds Qualifiers: Qualified Codes: F33.1 - Major depressive disorder, recurrent, moderate (7) Debility Status: Chronic Assessment & Plan: PT ordered (8) DVT prophylaxis Status: Acute Assessment & Plan: Lovenox Clinical Quality Measures DVT/VTE Risk/Contraindication: Risk Factor Score Per Nursin RFS Level Per Nursing on Admit: 4+=Very High REJI ROY MD Aug 18, 2018 17:04
[2018-08-18 20:35] VITALS: BP 129/62
[2018-08-19] VITALS: BP 107/51
[2018-08-19 04:00] VITALS: BP 118/56
[2018-08-19] MEDS: inSUlin ASPART (NovoLOG) 1 UNIT/0.01 ML (CHARGE PER UNIT) SC SCH ×7 (06:04→20:53)
[2018-08-19] MEDS: ENOXAPARIN 40 MG/0.4 ML (LOVENOX) SYR SC SCH ×2 (06:04→16:48)
[2018-08-19] MEDS: predniSONE 20 MG TAB PO SCH (06:04)
[2018-08-19] MEDS: MULTIVIT W/MINERALS TAB (THERAGRAN M) PO SCH (06:04)
[2018-08-19] MEDS: RT-ALBUTEROL/IPRATROPIUM 3 ML (DUONEB) VIAL INH SCH ×4 (07:26→18:10)
[2018-08-19 07:34] LABS: BASOPHILS % (AUTO) 0 % (0-10); EOSINOPHILS # (AUTO) 0.3 10^3/uL (0.0-0.3); EOSINOPHILS % (AUTO) 5 % (0-10); HEMATOCRIT 43 % (35-52); HEMOGLOBIN 14.3 G/DL (11.5-16.0); LYMPHOCYTES # (AUTO) 1.7 X 10^3 (1.0-4.0); LYMPHOCYTES % (AUTO) 25 % (12-44); MEAN CORPUSCULAR HEMOGLOBIN 29 PG (25-34); MEAN CORPUSCULAR HGB CONC 34 G/DL (32-36); MEAN CORPUSCULAR VOLUME 85 FL (80-99); MEAN PLATELET VOLUME 8.7 FL (7.4-10.4); MONOCYTES # (AUTO) 0.5 X 10^3 (0.0-1.0); MONOCYTES % (AUTO) 8 % (0-12); NEUTROPHILS # (AUTO) 4.3 X 10^3 (1.8-7.8); NEUTROPHILS % (AUTO) 63 % (42-75); PLATELET COUNT 248 10^3/uL (130-400); RED BLOOD COUNT 4.99 10^6/uL (4.35-5.85); RED CELL DISTRIBUTION WIDTH 13.9 % (10.0-14.5); WHITE BLOOD COUNT 6.8 10^3/uL (4.3-11.0)
[2018-08-19 07:52] LABS: BUN/CREATININE RATIO 15; CALCIUM 9.2 MG/DL (8.5-10.1); CARBON DIOXIDE 31 MMOL/L (21-32); CHLORIDE 95 MMOL/L (98-107); CREATININE SERUM 0.72 MG/DL (0.60-1.30); GFR ESTIMATED > 60; GLUCOSE 260 MG/DL (70-105); POTASSIUM 3.6 MMOL/L (3.6-5.0); SODIUM 136 MMOL/L (135-145)
[2018-08-19 08:08] VITALS: BP 119/57
[2018-08-19] MEDS: inSUlin DETERMIR 1 UNIT/0.01 ML (LEVEMIR) CHARGE PER UNIT SQ SCH ×2 (08:14→20:53)
[2018-08-19] MEDS: PANTOPRAZOLE 40 MG (PROTONIX) TAB PO SCH (08:14)
[2018-08-19] MEDS: cefTRIAXone FOR IV USE 1,000 MG in NS (IVPB) 50 ML IV SCH (08:14)
[2018-08-19] MEDS: FUROSEMIDE 40 MG (LASIX) TAB PO SCH (08:14)
[2018-08-19] MEDS: MICONAZOLE 2% POWDER (DESENEX AF) 90 GM TOP SCH ×2 (08:14→20:53)
[2018-08-19] MEDS: LOSARTAN 50 MG (COZAAR) TAB PO SCH (08:14)
--- NOTE | 2018-08-19 11:15 | Physical Therapy Progress Note ---
Therapy Progress Note Eval received and chart reviewed. Patient refused evaluation stating that she was exhausted and didn't feel up to it. After encouragement, patient stated that she didn't want to do it. SUAD JENKINS PT Aug 19, 2018 11:15
--- NOTE | 2018-08-19 11:29 | Progress Note (SOAP) ---
Subjective Subjective/Events-last exam Afebrile, no acute events. She feels her breathing is a little better, but is still on 4 lpm supplemental oxygen. Review of Systems Date Seen by Provider: Aug 19, 2018 Time Seen by Provider: 06:10 Focused Exam Lactate Level 08/17/18 17:46: Lactic Acid Level 1.36 Objective Exam Last Set of Vital Signs Vital Signs Date Time Temp Pulse Resp B/P (MAP) Pulse Ox O2 Delivery O2 Flow Rate FiO2 08/19/18 10:37 95 Nasal Cannula 4.00 08/19/18 08:08 97.9 72 20 119/57 (77) 08/17/18 21:31 36 Capillary Refill : I&O Intake and Output 08/19/18 00:00 Intake Total 1650 ml Output Total 200 ml Balance 1450 ml Intake Oral 1650 ml Output Urine Total 200 ml # Voids 7 General: Alert, No Acute Distress Lungs: Other (decreased air movement) Heart: Regular Rate, No Murmurs Neuro: Normal Speech Psych/Mental Status: Mental Status NL Results/Procedures Lab Laboratory Tests 08/18/18 16:36: Glucometer 431*H 08/18/18 17:13: B-Type Natriuretic Peptide 15.3 08/18/18 20:50: Glucometer 188H 08/19/18 05:42: Glucometer 247H 08/19/18 06:46: White Blood Count 6.8, Red Blood Count 4.99, Hemoglobin 14.3, Hematocrit 43, Mean Corpuscular Volume 85, Mean Corpuscular Hemoglobin 29, Mean Corpuscular Hemoglobin Concent 34, Red Cell Distribution Width 13.9, Platelet Count 248, Mean Platelet Volume 8.7, Neutrophils (%) (Auto) 63, Lymphocytes (%) (Auto) 25, Monocytes (%) (Auto) 8, Eosinophils (%) (Auto) 5, Basophils (%) (Auto) 0, Neutrophils # (Auto) 4.3, Lymphocytes # (Auto) 1.7, Monocytes # (Auto) 0.5, Eosinophils # (Auto) 0.3, Basophils # (Auto) 0.0, Sodium Level 136, Potassium Level 3.6, Chloride Level 95L, Carbon Dioxide Level 31, Anion Gap 10, Blood Urea Nitrogen 11, Creatinine 0.72, Estimat Glomerular Filtration Rate > 60, BUN/ Creatinine Ratio 15, Glucose Level 260H, Calcium Level 9.2 Microbiology 08/17/18 Blood Culture - Preliminary, Resulted No growth 08/18/18 Gram Stain - Final, Resulted 08/18/18 Sputum Culture, Resulted Pending Radiology CXR x 2 at clinic showed no acute concerns. Assessment/Plan Assessment/Plan (1) Acute and chronic respiratory failure Status: Acute Assessment & Plan: - AB, steroids, MAT protocol, PT, wean oxygen as tolerated, Will start daily lasix, echo pending 08/19- symptomatically improving, wean supplemental oxygen as tolerated, continue lasix (echo results pending), prednisone and ceftriaxone (2) COPD (chronic obstructive pulmonary disease) with acute bronchitis Status: Acute Assessment & Plan: - AB and steroids, MAT protocol with scheduled and PRN breathing treatments (3) Hypoxia Status: Acute (4) Type 2 diabetes mellitus, with long-term current use of insulin Status: Chronic Assessment & Plan: - Started on Levemir 20 BID, SSI A, ACHS blood sugars 08/19- overall elevated blood sugars, resume mealtime insulin at 10 units for now Qualifiers: Qualified Codes: E11.65 - Type 2 diabetes mellitus with hyperglycemia; Z79.4 - nursing home (current) use of insulin (5) Hypertension Status: Chronic Assessment & Plan: - Continue home meds Qualifiers: Qualified Codes: I10 - Essential (primary) hypertension (6) Depression Status: Chronic Assessment & Plan: - Continue home meds Qualifiers: Qualified Codes: F33.1 - Major depressive disorder, recurrent, moderate (7) Debility Status: Chronic Assessment & Plan: PT ordered (8) DVT prophylaxis Status: Acute Assessment & Plan: Lovenox Clinical Quality Measures DVT/VTE Risk/Contraindication: Risk Factor Score Per Nursin RFS Level Per Nursing on Admit: 4+=Very High SHANE GALVAN MD Aug 19, 2018 11:28
[2018-08-19 13:16] VITALS: BP 123/55
[2018-08-19 15:40] VITALS: BP 134/80
[2018-08-19 19:20] VITALS: BP 140/67
[2018-08-20 00:40] VITALS: BP 125/87
[2018-08-20] MEDS: IBUPROFEN 600 MG (MOTRIN) TAB PO PRN (02:46)
[2018-08-20 04:00] VITALS: BP 157/72
[2018-08-20] MEDS: MULTIVIT W/MINERALS TAB (THERAGRAN M) PO SCH (05:57)
[2018-08-20] MEDS: predniSONE 20 MG TAB PO SCH (05:58)
[2018-08-20] MEDS: ENOXAPARIN 40 MG/0.4 ML (LOVENOX) SYR SC SCH ×2 (05:58→18:27)
[2018-08-20] MEDS: inSUlin ASPART (NovoLOG) 1 UNIT/0.01 ML (CHARGE PER UNIT) SC SCH ×8 (05:58→21:08)
[2018-08-20] MEDS: RT-ALBUTEROL/IPRATROPIUM 3 ML (DUONEB) VIAL INH SCH ×4 (06:51→18:26)
[2018-08-20 08:48] VITALS: BP 129/61
[2018-08-20] MEDS: FUROSEMIDE 40 MG (LASIX) TAB PO SCH (09:54)
[2018-08-20] MEDS: LOSARTAN 50 MG (COZAAR) TAB PO SCH (09:54)
[2018-08-20] MEDS: cefTRIAXone FOR IV USE 1,000 MG in NS (IVPB) 50 ML IV SCH (09:54)
[2018-08-20] MEDS: PANTOPRAZOLE 40 MG (PROTONIX) TAB PO SCH (09:54)
[2018-08-20] MEDS: MICONAZOLE 2% POWDER (DESENEX AF) 90 GM TOP SCH ×2 (09:55→21:08)
[2018-08-20] MEDS: inSUlin DETERMIR 1 UNIT/0.01 ML (LEVEMIR) CHARGE PER UNIT SQ SCH ×2 (10:00→21:08)
[2018-08-20 11:30] VITALS: BP 160/71
--- NOTE | 2018-08-20 12:31 | Progress Note (SOAP) ---
Subjective Subjective/Events-last exam Afebrile, no acute events. She is breathing easier and supplemental oxygen is down to 2 lpm. She is requesting her trazodone for sleep. Review of Systems Date Seen by Provider: Aug 20, 2018 Time Seen by Provider: 11:15 Focused Exam Lactate Level 08/17/18 17:46: Lactic Acid Level 1.36 Objective Exam Last Set of Vital Signs Vital Signs Date Time Temp Pulse Resp B/P (MAP) Pulse Ox O2 Delivery O2 Flow Rate FiO2 08/20/18 11:02 94 Nasal Cannula 2.00 08/20/18 08:48 96.0 67 18 129/61 (83) 08/20/18 07:02 28 Capillary Refill : I&O Intake and Output 08/20/18 00:00 Intake Total 2220 ml Balance 2220 ml Intake Oral 2220 ml # Voids 8 General: Alert, No Acute Distress Lungs: Clear to Auscultation, Normal Air Movement Heart: Regular Rate, No Murmurs Neuro: Normal Speech Psych/Mental Status: Mood NL Results/Procedures Lab Laboratory Tests 08/19/18 16:32: Glucometer 432*H 08/19/18 20:12: Glucometer 291H 08/20/18 05:29: Glucometer 198H 08/20/18 10:36: Glucometer 293H Microbiology 08/17/18 Blood Culture - Preliminary, Resulted No growth 08/18/18 Gram Stain - Final, Resulted 08/18/18 Sputum Culture - Preliminary, Resulted Usual upper respiratory beatriz Radiology CXR x 2 at clinic showed no acute concerns. Assessment/Plan Assessment/Plan (1) Acute and chronic respiratory failure Status: Acute Assessment & Plan: - AB, steroids, MAT protocol, PT, wean oxygen as tolerated, Will start daily lasix, echo pending 08/19- symptomatically improving, wean supplemental oxygen as tolerated, continue lasix (echo results pending), prednisone and ceftriaxone 08/20- continues to improve, still requiring supplemental oxygen, wean as tolerated, continue lasix and prednisone (day 2 today) and ceftriaxone (2) COPD (chronic obstructive pulmonary disease) with acute bronchitis Status: Acute Assessment & Plan: - AB and steroids, MAT protocol with scheduled and PRN breathing treatments (3) Hypoxia Status: Acute (4) Type 2 diabetes mellitus, with long-term current use of insulin Status: Chronic Assessment & Plan: - Started on Levemir BID, SSI A, ACHS blood sugars 08/19- overall elevated blood sugars, resume mealtime insulin at 10 units for now 08/20 improving, continue to increase as needed Qualifiers: Qualified Codes: E11.65 - Type 2 diabetes mellitus with hyperglycemia; Z79.4 - care home (current) use of insulin (5) Hypertension Status: Chronic Assessment & Plan: - Continue home meds Qualifiers: Qualified Codes: I10 - Essential (primary) hypertension (6) Depression Status: Chronic Assessment & Plan: - Continue home meds Qualifiers: Qualified Codes: F33.1 - Major depressive disorder, recurrent, moderate (7) Debility Status: Chronic Assessment & Plan: PT ordered (8) Diastolic dysfunction Status: Chronic Assessment & Plan: Per echo 08/18/18, EF thought to be normal, technically limited study. Continue lasix. (9) DVT prophylaxis Status: Acute Assessment & Plan: Lovenox Clinical Quality Measures DVT/VTE Risk/Contraindication: Risk Factor Score Per Nursin RFS Level Per Nursing on Admit: 4+=Very High SHANE GALVAN MD Aug 20, 2018 12:31 pm
[2018-08-20] MEDS: ONDANSETRON 4 MG (ZOFRAN) ORAL DISSOLVE TAB PO PRN (12:41)
[2018-08-20 16:00] VITALS: BP 145/65
[2018-08-20] MEDS ORDERED: inSUlin ASPART (NovoLOG) 1 UNIT/0.01 ML (CHARGE PER UNIT) SC ONE (17:45)
[2018-08-20 20:00] VITALS: BP 142/67
[2018-08-20] MEDS: traZODone 150 MG (DESYREL) TABLET PO SCH (21:07)
[2018-08-21] VITALS: BP 131/61
[2018-08-21 04:00] VITALS: BP 134/66
[2018-08-21] MEDS: ENOXAPARIN 40 MG/0.4 ML (LOVENOX) SYR SC SCH ×2 (06:34→17:41)
[2018-08-21] MEDS: predniSONE 20 MG TAB PO SCH (06:34)
[2018-08-21] MEDS: MULTIVIT W/MINERALS TAB (THERAGRAN M) PO SCH (06:34)
[2018-08-21] MEDS: RT-ALBUTEROL/IPRATROPIUM 3 ML (DUONEB) VIAL INH SCH ×4 (06:51→18:03)
[2018-08-21 08:00] VITALS: BP 105/54
[2018-08-21] MEDS: inSUlin DETERMIR 1 UNIT/0.01 ML (LEVEMIR) CHARGE PER UNIT SQ SCH ×2 (08:12→21:40)
[2018-08-21] MEDS: inSUlin ASPART (NovoLOG) 1 UNIT/0.01 ML (CHARGE PER UNIT) SC SCH ×6 (08:12→16:29)
[2018-08-21] MEDS: LOSARTAN 50 MG (COZAAR) TAB PO SCH (08:13)
[2018-08-21] MEDS: ONDANSETRON 4 MG (ZOFRAN) ORAL DISSOLVE TAB PO PRN (08:13)
[2018-08-21] MEDS: FUROSEMIDE 40 MG (LASIX) TAB PO SCH (08:13)
[2018-08-21] MEDS: PANTOPRAZOLE 40 MG (PROTONIX) TAB PO SCH (08:13)
[2018-08-21] MEDS: cefTRIAXone FOR IV USE 1,000 MG in NS (IVPB) 50 ML IV SCH (08:13)
[2018-08-21] MEDS: SERTRALINE 100 MG (ZOLOFT) TAB PO SCH (08:13)
--- NOTE | 2018-08-21 09:18 | Progress Note-Hospitalist ---
Subjective HPI/CC On Admission Date Seen by Provider: Aug 21, 2018 Time Seen by Provider: 09:00 Subjective/Events-last exam Patient does not feel as well as she did yesterday We'll consult Dr. Archuleta due to the severity of her COPD exacerbation Needs 4 L of oxygen supplemental said that order was placed in chart to arrange for tomorrow Denies any pain Is on a dysphagia diet due to aspiration risk Will order PT to get her up and around in preparation for discharge tomorrow as long she feels up to it We'll discontinue telemetry Review of Systems Pulmonary: Dyspnea Objective Exam Vital Signs Vital Signs Date Time Temp Pulse Resp B/P (MAP) Pulse Ox O2 Delivery O2 Flow Rate FiO2 08/21/18 06:51 91 Nasal Cannula 2.00 08/21/18 04:00 97.4 64 16 134/66 (88) 08/20/18 07:02 28 Capillary Refill : General Appearance: No Apparent Distress, WD/WN, Chronically ill HEENT: PERRL/EOMI, Moist Mucous Membranes Neck: Full Range of Motion, Normal Inspection, Non Tender, Supple, Carotid Bruit Respiratory: Chest Non Tender, No Accessory Muscle Use, No Respiratory Distress , Decreased Breath Sounds Cardiovascular: Regular Rate, Rhythm, No Edema, No Gallop, No JVD, No Murmur, Normal Peripheral Pulses Gastrointestinal: Normal Bowel Sounds, No Organomegaly, No Pulsatile Mass, Non Tender, Soft Back: Normal Inspection, No CVA Tenderness, No Vertebral Tenderness Extremity: Normal Capillary Refill, Normal Inspection, Normal Range of Motion, Non Tender, No Calf Tenderness, No Pedal Edema Neurologic/Psychiatric: Alert, Oriented x3, No Motor/Sensory Deficits, Normal Mood/Affect Skin: Normal Color, Warm/Dry Lymphatic: No Adenopathy Results/Procedures Lab Patient resulted labs reviewed. Assessment/Plan Assessment and Plan Assess & Plan/Chief Complaint Assessment: Acute exacerbation of COPD Bacterial bronchitis Smoker Hypertension Diabetes mellitus insulin-dependent Plan: Home O2 [address] Archuleta consultation Nebs Steroids Insulin Diagnosis/Problems Diagnosis/Problems (1) COPD (chronic obstructive pulmonary disease) with acute bronchitis Status: Acute (2) RESPIRATORY FAILURE, UNSP, UNSP W HYPOXIA OR HYPERCAPNIA Status: Acute (3) Hypoxia Status: Acute (4) Type 2 diabetes mellitus, with long-term current use of insulin Status: Chronic Qualifiers: Diabetes mellitus complication status: with hyperglycemia Qualified Codes: E11.65 - Type 2 diabetes mellitus with hyperglycemia; 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 (5) Tobacco abuse Status: Chronic (6) Generalized anxiety disorder Status: Chronic (7) Depression Status: Chronic Qualifiers: Depression Type: major depressive disorder Major depression recurrence: recurrent Active/Remission status: currently active Major depression episode severity: moderate Qualified Codes: F33.1 - Major depressive disorder, recurrent, moderate (8) Hypertension Status: Chronic Qualifiers: Hypertension type: essential hypertension Qualified Codes: I10 - Essential (primary) hypertension (9) Arthritis Status: Chronic (10) ADD (attention deficit disorder) Status: Chronic (11) PTSD (post-traumatic stress disorder) Status: Chronic (12) Diastolic dysfunction Status: Chronic Clinical Quality Measures DVT/VTE Risk/Contraindication: Risk Factor Score Per Nursin RFS Level Per Nursing on Admit: 4+=Very High HERMILA SWAIN DO Aug 21, 2018 09:18
[2018-08-21] MEDS: MICONAZOLE 2% POWDER (DESENEX AF) 90 GM TOP SCH ×2 (10:21→21:39)
[2018-08-21] MEDS ORDERED: VANCOMYCIN INJECTION 2,250 MG in NS IV 500 ML 500 ML IV NR (11:31)
[2018-08-21] MEDS ORDERED: NS (IVPB) 0 ML ONE (11:35)
[2018-08-21] MEDS ORDERED: VANCOMYCIN 1000 MG/VIAL ONE (11:35)
[2018-08-21] MEDS: IBUPROFEN 600 MG (MOTRIN) TAB PO PRN (13:59)
--- NOTE | 2018-08-21 14:19 | Pulmonary Consultation ---
History of Present Illness History of Present Illness Date of Consultation 08/21/18 14:14 Time Seen by Provider: 14:24 Date of Admission Allergies and Home Medications Allergies Coded Allergies: Sulfa (Sulfonamide Antibiotics) (Verified Allergy, Unknown, 08/26/14) morphine (Verified Adverse Reaction, Mild, NAUSEA, 05/19/16) Home Medications Albuterol Sulfate 1 Puff Puff, 2 PUFF IH Q4H PRN for SHORTNESS OF BREATH, ( Reported) 1 PUFF = 90 MCG Cefdinir 300 Mg Capsule, 300 MG PO BID, (Reported) 10 DAY THERAPY FILLED 08-16-18 Glucosamine HCl/Chondr Bentley A Na 1 Each Tablet, 1 TAB PO DAILY, (Reported) Insulin Aspart 300 Units/3 Ml Solution, 12 UNITS SQ TIDAC, (Reported) Insulin Degludec 100 Unit/1 Ml Insuln.pen, 60 UNITS SC HS, (Reported) Lactobacillus Acidophilus 1 Each Capsule, 1 CAP PO DAILY, (Reported) Losartan Potassium 25 Mg Tablet, 25 MG PO DAILY, (Reported) Multivitamin 1 Each Tablet, 1 TAB PO DAILY, (Reported) Ranitidine HCl 150 Mg Tablet, 150 MG PO DAILY PRN for HEARTBURN, (Reported) Sertraline HCl 100 Mg Tablet, 100 MG PO DAILY, (Reported) Trazodone HCl 150 Mg Tablet, 150 MG PO HS, (Reported) Vit C/E/Zn/Coppr/Lutein/Zeaxan 1 Each Capsule, 1 TAB PO BID, (Reported) Past Ljcuqmi-Stdbwd-Xxdhon Hx Patient Social History Alcohol Use: Denies Use Alcohol Beverage of Choice: [place] Recreational Drug Use: No (STATES STOPPED DRINKING A YEAR AGO) Drug of Choice: PT DENIES Smoking Status: Former Smoker Type Used: Cigarettes Former Smoker, Quit: Feb 18, 2016 2nd Hand Smoke Exposure: Yes Recent Foreign Travel: No Contact w/Someone Who Travel: No Recent Infectious Disease Expo: No Recent Hopitalizations: No Immunizations Up To Date Tetanus Booster (TDap): Less than 5yrs PED Vaccines UTD: No Date of Pneumonia Vaccine: Aug 31, 2017 Date of Influenza Vaccine: Jul 31, 2018 Seasonal Allergies Seasonal Allergies: Yes Past Medical History Surgeries: Yes Abdominal, Section, Hysterectomy, Orthopedic Respiratory: Yes Pneumonia, COPD Currently Using CPAP: No Currently Using BIPAP: No Cardiac: Yes Hypertension Neurological: Yes Dementia 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 Disorders: No Female 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 Disorders: Denies 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, 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 Sexually Transmitted Disease: No HIV/AIDS: No Genitourinary: No Gastrointestinal: Yes Gastroesophageal Reflux, Hiatal Hernia Musculoskeletal: Yes (LEFT TOTAL KNEE REPLACEMENT) Arthritis Endocrine: Yes Diabetes, Insulin dep HEENT: Yes Cataract Hearing Impairment: Denies Cancer: No Psychosocial: Yes ADD/ADHD, Eating Disorder, Anxiety, Depression Integumentary: Yes Psoriasis Blood Disorders: No Adverse Reaction/Blood Tranf: No Family Medical History AIDS Alcoholism Arthritis Asthma Cataracts Coronary thrombosis Diabetes mellitus Drug abuse Glaucoma Psychosocial problem Respiratory disorder No Family History of: Sadiq's disease Alzheimer's disease Aphasia Cancer of mouth Cardiovascular disease Colon cancer Completed stroke Congenital disease Congenital heart disease Cystic fibrosis Deafness or hearing loss Dementia Dysphasia Fibrocystic disease of breast Gastroenteritis Headache disorder Hypercholesterolemia Hypertension Infertility Kidney disease Myocardial infarction Neoplasm Not obtainable due to adoption Osteoporosis Parkinson's disease Prostate cancer Seizure disorder Severe allergy Thyroid disease Tuberculosis Visual disorder No Pertinent Family Hx Sepsis Event Evaluation Height, Weight, BMI Height: 5'5.00" Weight: 252lbs. 1.0oz. 114.145884wt; 41.4 BMI Method:Stated Exam Exam Vital Signs Date Time Temp Pulse Resp B/P (MAP) Pulse Ox O2 Delivery O2 Flow Rate FiO2 08/21/18 10:42 91 Nasal Cannula 4.00 08/21/18 09:57 91 2.00 08/21/18 09:00 Nasal Cannula 4.00 08/21/18 08:00 97.4 63 22 105/54 (71) 100 Nasal Cannula 4.00 08/21/18 06:51 91 Nasal Cannula 2.00 08/21/18 04:00 97.4 64 16 134/66 (88) 94 Nasal Cannula 2.00 08/21/18 01:00 69 08/21/18 00:00 97.6 74 16 131/61 (84) 91 Nasal Cannula 2.00 08/20/18 21:00 Nasal Cannula 2.00 08/20/18 20:00 97.8 69 18 142/67 (92) 95 Nasal Cannula 2.00 08/20/18 19:00 65 08/20/18 18:26 92 Nasal Cannula 2.00 08/20/18 16:00 97.8 65 18 145/65 (91) 90 Nasal Cannula 2.00 08/20/18 15:14 94 Nasal Cannula 2.00 I & O 08/21/18 07:00 Intake Total 2930 ml Output Total 3200 ml Balance -270 ml Height & Weight Height: 5'5.00" Weight: 252lbs. 1.0oz. 114.155788ad; 41.4 BMI Method:Stated General Appearance: No Apparent Distress, WD/WN, Chronically ill HEENT: PERRL/EOMI, Moist Mucous Membranes Neck: Full Range of Motion, Normal Inspection, Non Tender, Supple, Carotid Bruit Respiratory: Chest Non Tender, No Accessory Muscle Use, No Respiratory Distress , Decreased Breath Sounds Cardiovascular: Regular Rate, Rhythm, No Edema, No Gallop, No JVD, No Murmur, Normal Peripheral Pulses Gastrointestinal: normal bowel sounds, non tender, soft, no organomegaly Extremity: Normal Capillary Refill, Normal Inspection, Normal Range of Motion, Non Tender, No Calf Tenderness, No Pedal Edema Neurologic/Psychiatric: Alert, Oriented x3, No Motor/Sensory Deficits, Normal Mood/Affect Skin: Normal Color, Warm/Dry Lymphatic: No Adenopathy Assessment/Plan Assessment/Plan Acute on chronic respiratory failure COPDAE with hypoxia -SVNs, Prednisone MRSA pneumonia vs colonization -Continue vancomycin for now Tobacco dependance -education Diastolic CHF GANGA JEAN DO Aug 21, 2018 14:19
--- NOTE | 2018-08-21 14:25 | Physical Therapy Evaluation ---
PT Evaluation-General Medical Diagnosis Admission Date Aug 17, 2018 at 15:12 Medical Diagnosis: SOB/COPD exacerbation Onset Date: Aug 17, 2018 Therapy Diagnosis Therapy Diagnosis: debility Height/Weight Height (Feet): 5 Height (Inches): 5.00 Weight (Pounds): 252 Weight (Ounces): 1.0 Precautions Precautions/Isolations: Droplet Isolation, Fall Prevention, Standard Precautions, Pressure Ulcer Weight Bear Status Right Lower Extremity: Right Weight Bearing/Tolerated Left Lower Extremity: Left Weight Bearing/Tolerated Referral Physician: Vaughn Reason for Referral: Evaluation/Treatment Medical History Pertinent Medical History: Alcoholism, Arthritis, COPD, DM, GERD, HTN, Smoking Current History admitted secondary to SOA and edema Reviewed History: Yes Social History Home: Single Level Current Living Status: Alone Prior/Core FIM Prior Level of Function Functional [place] Measure 0=Not Assessed/NA 4=Minimal Assistance 1=Total Assistance 5=Supervision or Setup 2=Maximal Assistance 6=Modified [place] 3=Moderate Assistance 7=Complete IndependenceIRFPAI Quality Coding Scale 6 Independent with activity with or without an assistive device 5 Patient requires set up or clean up by helper. Patient completes activity by themselves 4 Supervision or touching assist (CGA). [place] provide cues , steadying assist 3 The helper provides less than half the effort to complete the activity 2 The helper provides more than half the effort to complete the activity 1 Dependent. The helper does all the effort to complete an activity 7 Patient refused to complete or attempt activity 9 The patient did not perform the activity before the current illness or injury 88 Not attempted due to Medical conditions or safety concerns Bed Mobility: 7 Transfers (B,C,W/C) (FIM): 7 Gait: 7 PT Evaluation-Current Subjective Patient is very agreeable to participate with PT. Pain Numeric Pain Scale: 0-No Pain Location: No Pain Reported Objective Patient Orientation: Normal For Age Problem Solving: Fair Attachments: Oxygen, IV ROM/Strength ROM Lower Extremities bilateral LE WFL Strength Lower Extremities 4/5 grossly bilateral LE Integumentary/Posture Integumentary refer to nursing notes Bowel Incontinence: No Bladder Incontinence: No Posture WFL Neuromuscular (Tone, Coordination, Reflexes) grossly intact Sensory Vision: Wears Glasses Hearing: Functional Sensation Right Lower Extremit: Impaired Sensation Left Lower Extremity: Impaired Transfers Functional [place] Measure 0=Not Assessed/NA 4=Minimal Assistance 1=Total Assistance 5=Supervision or Setup 2=Maximal Assistance 6=Modified [place] 3=Moderate Assistance 7=Complete [place] Transfers (B, C, W/C) (FIM): 7 Scootin Rollin Supine to/from Sit: 7 Sit to/from Stand: 7 Gait Mode of Locomotion: Walk Anticipated Mode of Locomotion: Walk Gait (FIM): 6 Distance (FIM): 3=150 ft Distance: 450' Gait Level of Assist: 6 Gait Assistive Device: FWW Comments/Gait Description steady, functional gait sequence with FWW use Balance Sitting Static: Normal Sitting Dynamic: Normal Standing Static: Normal Standing Dynamic: Normal Assessment/Needs 63 y.o. female, will be seen short term by skilled PT to ensure functional mobility and safety measures are in place upon dismissal to home. Patient is highly motivated with LOF at this time. Rehab Potential: Fair PT Short Term Goals Short Term Goals Time Frame: Aug 25, 2018 Transfers (B,C,W/C) (FIM): 7 Gait (FIM): 7 Distance (FIM): 3=150 ft Gait Level of Assist: 7 Gait Assistive Device: None PT Plan Treatment/Plan Treatment Plan: Continue Plan of Care Treatment Plan: Education, Functional Activity Garrick, Functional Strength, Gait , Safety, Therapeutic Exercise Treatment Duration: Aug 25, 2018 Frequency: 5 times per week Estimated Hrs Per Day: .25 hour per day Patient and/or Family Agrees t: Yes Safety Risks/Education Patient Education: Safety Issues Teaching Recipient: Patient Teaching Methods: Discussion Response to Teaching: Verbalize Understanding Discharge Recommendations Therapy D/C Recommendations: Home Independently Time/GCodes Time In: 1346 Time Out: 1407 Total Billed Treatment Time: 21 Total Billed Treatment 1 visit EVMod 21min CAILIN COLEY PT Aug 21, 2018 14:25
[2018-08-21 15:57] VITALS: BP 134/68
[2018-08-21 20:30] VITALS: BP 136/68
[2018-08-21] MEDS ORDERED: inSUlin ASPART (NovoLOG) 1 UNIT/0.01 ML (CHARGE PER UNIT) SC SCH (21:00)
[2018-08-21] MEDS: traZODone 150 MG (DESYREL) TABLET PO SCH (21:38)
[2018-08-21] MEDS ORDERED: VANCOMYCIN INJECTION 1,750 MG in NS IV 500 ML 500 ML IV SCH (23:00)
[2018-08-22] VITALS: BP 143/65
[2018-08-22 03:35] VITALS: BP 117/56
[2018-08-22 04:42] LABS: BASOPHILS % (AUTO) 0 % (0-10); EOSINOPHILS # (AUTO) 0.2 10^3/uL (0.0-0.3); EOSINOPHILS % (AUTO) 2 % (0-10); HEMATOCRIT 39 % (35-52); HEMOGLOBIN 13.1 G/DL (11.5-16.0); LYMPHOCYTES # (AUTO) 2.1 X 10^3 (1.0-4.0); LYMPHOCYTES % (AUTO) 20 % (12-44); MEAN CORPUSCULAR HEMOGLOBIN 29 PG (25-34); MEAN CORPUSCULAR HGB CONC 34 G/DL (32-36); MEAN CORPUSCULAR VOLUME 85 FL (80-99); MONOCYTES # (AUTO) 0.9 X 10^3 (0.0-1.0); MONOCYTES % (AUTO) 8 % (0-12); NEUTROPHILS # (AUTO) 7.2 X 10^3 (1.8-7.8); NEUTROPHILS % (AUTO) 69 % (42-75); PLATELET COUNT 253 10^3/uL (130-400); RED BLOOD COUNT 4.56 10^6/uL (4.35-5.85); RED CELL DISTRIBUTION WIDTH 13.2 % (10.0-14.5); WHITE BLOOD COUNT 10.4 10^3/uL (4.3-11.0)
[2018-08-22 05:03] LABS: ALANINE AMINOTRANSFERASE 18 U/L (0-55); ALBUMIN 3.2 GM/DL (3.2-4.5); ALKALINE PHOSPHATASE 107 U/L (40-136); BILIRUBIN,TOTAL 0.3 MG/DL (0.1-1.0); BUN/CREATININE RATIO 20; CALCIUM 8.7 MG/DL (8.5-10.1); CARBON DIOXIDE 28 MMOL/L (21-32); CHLORIDE 95 MMOL/L (98-107); CREATININE SERUM 0.83 MG/DL (0.60-1.30); GFR ESTIMATED > 60; POTASSIUM 3.5 MMOL/L (3.6-5.0); SODIUM 133 MMOL/L (135-145); TOTAL PROTEIN 5.7 GM/DL (6.4-8.2)
[2018-08-22 05:25] LABS: GLUCOSE 420 MG/DL (70-105)
[2018-08-22] MEDS ORDERED: inSUlin ASPART (NovoLOG) 1 UNIT/0.01 ML (CHARGE PER UNIT) SC SCH (06:00)
[2018-08-22] MEDS: ENOXAPARIN 40 MG/0.4 ML (LOVENOX) SYR SC SCH (06:49)
[2018-08-22] MEDS: predniSONE 20 MG TAB PO SCH (06:50)
[2018-08-22] MEDS: MULTIVIT W/MINERALS TAB (THERAGRAN M) PO SCH (06:50)
[2018-08-22] MEDS: RT-ALBUTEROL/IPRATROPIUM 3 ML (DUONEB) VIAL INH SCH ×2 (07:23→10:28)
--- NOTE | 2018-08-22 07:32 | Pulmonary Progress Note ---
Subjective Time Seen by a Provider: 07:33 Sepsis Event Evaluation Height, Weight, BMI Height: 5'5.00" Weight: 252lbs. 14.0oz. 114.001279xw; 41.4 BMI Method:Stated Exam Exam Vital Signs Date Time Temp Pulse Resp B/P (MAP) Pulse Ox O2 Delivery O2 Flow Rate FiO2 08/22/18 03:35 96.9 64 20 117/56 (76) 95 Nasal Cannula 4.00 08/22/18 00:00 96.9 60 18 143/65 (91) 97 Nasal Cannula 4.00 08/21/18 21:00 Nasal Cannula 4.00 08/21/18 20:30 95.1 61 16 136/68 (90) 98 Nasal Cannula 4.00 08/21/18 18:03 92 Nasal Cannula 4.00 08/21/18 15:57 98.8 62 22 134/68 (90) 96 Nasal Cannula 4.00 08/21/18 14:43 92 Nasal Cannula 4.00 08/21/18 10:42 91 Nasal Cannula 4.00 08/21/18 09:57 91 2.00 08/21/18 09:00 Nasal Cannula 4.00 08/21/18 08:00 97.4 63 22 105/54 (71) 100 Nasal Cannula 4.00 I & O 08/22/18 07:00 Intake Total 3122.5 ml Output Total 3950 ml Balance -827.5 ml Height & Weight Height: 5'5.00" Weight: 252lbs. 14.0oz. 114.731048cb; 41.4 BMI Method:Stated General Appearance: No Apparent Distress, WD/WN, Chronically ill HEENT: PERRL/EOMI, Moist Mucous Membranes Neck: Full Range of Motion, Normal Inspection, Non Tender, Supple, Carotid Bruit Respiratory: Chest Non Tender, No Accessory Muscle Use, No Respiratory Distress , Decreased Breath Sounds Cardiovascular: Regular Rate, Rhythm, No Edema, No Gallop, No JVD, No Murmur, Normal Peripheral Pulses Gastrointestinal: normal bowel sounds, non tender, soft, no organomegaly Extremity: Normal Capillary Refill, Normal Inspection, Normal Range of Motion, Non Tender, No Calf Tenderness, No Pedal Edema Neurologic/Psychiatric: Alert, Oriented x3, No Motor/Sensory Deficits, Normal Mood/Affect Skin: Normal Color, Warm/Dry Lymphatic: No Adenopathy Results Lab Laboratory Tests 08/22/18 04:14 Assessment/Plan Assessment/Plan Acute on chronic respiratory failure COPDAE with hypoxia -SVNs, Prednisone MRSA pneumonia vs colonization -Continue vancomycin for now Tobacco dependance -education Diastolic CHF GANGA JEAN DO Aug 22, 2018 07:32
[2018-08-22] MEDS: cefTRIAXone FOR IV USE 1,000 MG in NS (IVPB) 50 ML IV SCH (08:07)
[2018-08-22] MEDS: PANTOPRAZOLE 40 MG (PROTONIX) TAB PO SCH (08:07)
[2018-08-22] MEDS: FUROSEMIDE 40 MG (LASIX) TAB PO SCH (08:07)
[2018-08-22] MEDS: LOSARTAN 50 MG (COZAAR) TAB PO SCH (08:07)
[2018-08-22] MEDS: SERTRALINE 100 MG (ZOLOFT) TAB PO SCH (08:07)
[2018-08-22] MEDS: inSUlin DETERMIR 1 UNIT/0.01 ML (LEVEMIR) CHARGE PER UNIT SQ SCH (08:09)
[2018-08-22] MEDS: inSUlin ASPART (NovoLOG) 1 UNIT/0.01 ML (CHARGE PER UNIT) SC SCH (08:09)
[2018-08-22 08:26] VITALS: BP 139/65
--- NOTE | 2018-08-22 09:05 | Diagnostic Imaging Report ---
CLINICAL INDICATION: Patient states feeling better today. Patient has shortness of breath, COPD, and exasperation. EXAM: Portable chest x-ray, upright view. COMPARISON: Chest x-ray dated 08/18/2018. FINDINGS: Cardiomegaly is seen. There is mild prominence of the pulmonary vasculature which may be due to low lung volumes and/or increased pulmonary vasculature. There are low lung volumes seen with suspected bibasilar atelectasis but superimposed infiltrates cannot be completely excluded. There is no gross pleural effusion or pneumothorax. The remainder of this exam shows no significant interval change compared to the prior study of comparison. IMPRESSION: 1. There are low lung volumes with bibasilar atelectasis but superimposed infiltrates cannot be completely excluded. 2. There is cardiomegaly with mild pulmonary vascular congestion. Clinical correlation would help better evaluate for congestive heart failure symptoms. This finding may also be seen with atelectasis. Dictated by: Dictated on workstation # [id number]
--- NOTE | 2018-08-22 09:23 | Physical Therapy Daily Note ---
PT Daily Note-Current Subjective Patient was awake in chair when PT arrived. Pt stated that she was up walking this morning but agreed to walk with physical therapy. Pain Numeric Pain Scale: 0-No Pain Location: No Pain Reported Mental Status Patient Orientation: Normal For Age Attachments: Oxygen Transfers Functional [place] Measure 0=Not Assessed/NA 4=Minimal Assistance 1=Total Assistance 5=Supervision or Setup 2=Maximal Assistance 6=Modified [place] 3=Moderate Assistance 7=Complete IndependenceIRFPAI Quality Coding Scale 6 Independent with activity with or without an assistive device 5 Patient requires set up or clean up by helper. Patient completes activity by themselves 4 Supervision or touching assist (CGA). [place] provide cues , steadying assist 3 The helper provides less than half the effort to complete the activity 2 The helper provides more than half the effort to complete the activity 1 Dependent. The helper does all the effort to complete an activity 7 Patient refused to complete or attempt activity 9 The patient did not perform the activity before the current illness or injury 88 Not attempted due to Medical conditions or safety concerns Transfers (B, C, W/C) (FIM): 6 Sit to/from Stand: 6 Weight Bearing Right Lower Extremity: Right Weight Bearing/Tolerated Left Lower Extremity: Left Weight Bearing/Tolerated Gait Training Gait (FIM): 6 Distance (FIM): 3=150 ft Distance: 400' Gait Level of Assist: 6 Gait Assistive Device: Walker 4 Wheeled Patients O2 sat remained in the mid 90's throughout ambulation. Assessment Pt was able to ambulate for 400ft on 3L of oxygen. Patient showed little fatigue towards the end of ambulation and was reminded to slow down when walking. Nursing was informed that PT services will be discontinued due to Pts PLOF and to continue walking Pt as PRN. PT Short Term Goals Short Term Goals Time Frame: Aug 25, 2018 Transfers (B,C,W/C) (FIM): 7 Gait (FIM): 7 Distance (FIM): 3=150 ft Gait Level of Assist: 7 Gait Assistive Device: None PT Plan Treatment/Plan Treatment Plan: Discontinue PT, goals met Treatment Plan: Education, Functional Activity Gar[place], Functional Strength, Gait , Safety, Therapeutic Exercise Treatment Duration: Aug 25, 2018 Frequency: 5 times per week Estimated Hrs Per Day: .25 hour per day Patient and/or Family Agrees t: Yes Time/GCodes Time In: 933 Time Out: 945 Total Billed Treatment Time: 12 Total Billed Treatment 1 visit FA 12 mins CAILIN COLEY PT Aug 22, 2018 09:22
[2018-08-22] MEDS: IBUPROFEN 600 MG (MOTRIN) TAB PO PRN (09:25)
[2018-08-22] MEDS: MICONAZOLE 2% POWDER (DESENEX AF) 90 GM TOP SCH (09:25)
--- NOTE | 2018-08-22 09:55 | Discharge Summary-Hospitalist ---
Diagnosis/Chief Complaint Date of Admission Aug 17, 2018 at 15:12 Date of Discharge Discharge Date: Aug 22, 2018 Discharge Diagnosis (1) MRSA pneumonia Status: Acute (2) COPD (chronic obstructive pulmonary disease) with acute bronchitis Status: Acute (3) RESPIRATORY FAILURE, UNSP, UNSP W HYPOXIA OR HYPERCAPNIA Status: Acute (4) Hypoxia Status: Acute (5) Type 2 diabetes mellitus, with long-term current use of insulin Status: Chronic (6) Tobacco abuse Status: Chronic (7) Generalized anxiety disorder Status: Chronic (8) Depression Status: Chronic (9) Hypertension Status: Chronic (10) Arthritis Status: Chronic (11) ADD (attention deficit disorder) Status: Chronic (12) PTSD (post-traumatic stress disorder) Status: Chronic (13) Diastolic dysfunction Status: Chronic Discharge Summary Discharge Physical Exam Allergies: Coded Allergies: Sulfa (Sulfonamide Antibiotics) (Verified Allergy, Unknown, 08/26/14) morphine (Verified Adverse Reaction, Mild, NAUSEA, 05/19/16) Vitals & I&Os Vital Signs Date Time Temp Pulse Resp B/P (MAP) Pulse Ox O2 Delivery O2 Flow Rate FiO2 08/22/18 08:26 96.7 59 18 139/65 (89) 95 Nasal Cannula 4.00 08/20/18 07:02 28 General Appearance: No Apparent Distress, WD/WN, Anxious, Chronically ill, Obese Respiratory: Crackles, Decreased Breath Sounds, Wheezing Cardiovascular: Regular Rate, Rhythm, No Edema, No Gallop, No JVD, No Murmur, Normal Peripheral Pulses Neurologic/Psychiatric: Alert, Oriented x3, No Motor/Sensory Deficits, Normal Mood/Affect Hospital Course Hospital course: patient had a standard hospital course when she was admitted for bronchitis and AECOPD. Patient was placed on IV abx and IV steroids and monitored closely. Pt continued to require more O2 so Dr Archuleta was consulted and ordered CT chest and started Vanc for MRSA in sputum. Since patient was not progressing enough for rapid DC at day 5 she was placed on swing bed for IV vanc and further improvement in respiratory status. Labs (last 24 hrs) Laboratory Tests 08/22/18 04:14: White Blood Count 10.4, Red Blood Count 4.56, Hemoglobin 13.1, Hematocrit 39, Mean Corpuscular Volume 85, Mean Corpuscular Hemoglobin 29, Mean Corpuscular Hemoglobin Concent 34, Red Cell Distribution Width 13.2, Platelet Count 253, Mean Platelet Volume 9.0, Neutrophils (%) (Auto) 69, Lymphocytes (%) (Auto) 20, Monocytes (%) (Auto) 8, Eosinophils (%) (Auto) 2, Basophils (%) (Auto) 0, Neutrophils # (Auto) 7.2, Lymphocytes # (Auto) 2.1, Monocytes # (Auto) 0.9, Eosinophils # (Auto) 0.2, Basophils # (Auto) 0.0, Sodium Level 133L, Potassium Level 3.5L, Chloride Level 95L, Carbon Dioxide Level 28, Anion Gap 10, Blood Urea Nitrogen 17, Creatinine 0.83, Estimat Glomerular Filtration Rate > 60, BUN/ Creatinine Ratio 20, Glucose Level 420*H, Calcium Level 8.7, Corrected Calcium 9.3, Total Bilirubin 0.3, Aspartate Amino Transf (AST/SGOT) 14, Alanine Aminotransferase (ALT/SGPT) 18, Alkaline Phosphatase 107, Total Protein 5.7L, Albumin 3.2 08/22/18 05:42: Glucometer 355H 08/22/18 06:14: Glucometer 347H 08/22/18 08:05: Glucometer 257H 08/22/18 10:18: Vancomycin Level Trough 15.0 Microbiology 08/17/18 Blood Culture - Preliminary, Resulted No growth 08/18/18 Gram Stain - Final, Complete 08/18/18 Sputum Culture - Final, Complete Staphylococcus aureus Usual upper respiratory beatriz Patient resulted labs reviewed. Pending Labs Discussion & Recommendations Discharge Planning: <30 minutes discharge planning Discharge Home Medications: Active Scripts Active Reported Zantac (Ranitidine HCl) 150 Mg Tablet 150 Mg PO DAILY PRN Trazodone HCl 150 Mg Tablet 150 Mg PO HS Sertraline HCl 100 Mg Tablet 100 Mg PO DAILY Losartan Potassium 25 Mg Tablet 25 Mg PO DAILY Ventolin Hfa (Albuterol Sulfate) 1 Puff Puff 2 Puff IH Q4H PRN 1 PUFF = 90 MCG Tresiba Flextouch U-100 (Insulin Degludec) 100 Unit/1 Ml Insuln.pen 60 Units SC HS Daily Multiple Vitamin (Multivitamin) 1 Each Tablet 1 Tab PO DAILY Preservision Areds 2 Softgel (Vit C/E/Zn/Coppr/Lutein/Zeaxan) 1 Each Capsule 1 Tab PO BID Osteo Bi-Flex Caplet (Glucosamine HCl/Chondr Bentley A Na) 1 Each Tablet 1 Tab PO DAILY Probiotic (Lactobacillus Acidophilus) 1 Each Capsule 1 Cap PO DAILY Novolog Flexpen (Insulin Aspart) 300 Units/3 Ml Solution 12 Units SQ TIDAC Instructions to patient/family Please see electronic discharge instructions given to patient. Clinical Quality Measures DVT/VTE Risk/Contraindication: Risk Factor Score Per Nursin RFS Level Per Nursing on Admit: 4+=Very High Problem Qualifiers (1) MRSA pneumonia: Laterality: unspecified laterality Lung location: unspecified part of lung Qualified Codes: J15.212 - Pneumonia due to methicillin resistant Staphylococcus aureus (2) Type 2 diabetes mellitus, with long-term current use of insulin: Diabetes mellitus complication status: with hyperglycemia Qualified Codes: E11.65 - Type 2 diabetes mellitus with hyperglycemia; Z79.4 - nursing home (current ) use of insulin (3) Depression: Depression Type: major depressive disorder Major depression recurrence: recurrent Active/Remission status: currently active Major depression episode severity: moderate Qualified Codes: F33.1 - Major depressive disorder, recurrent, moderate (4) Hypertension: Hypertension type: essential hypertension Qualified Codes: I10 - Essential ( primary) hypertension HERMILA SWAIN DO Aug 22, 2018 09:55
[2018-08-22] MEDS ORDERED: TROUGH ORDER-PHARMACY XX NR (10:00)
[2018-08-22] MEDS ORDERED: RT-ALBUTEROL/IPRATROPIUM 3 ML (DUONEB) VIAL ONE (10:26)
[2018-08-22] MEDS ORDERED: inSUlin DETERMIR 1 UNIT/0.01 ML (LEVEMIR) CHARGE PER UNIT SQ SCH (21:00)
== END 2018-08-22 10:12 | disposition swing bed (61) | DRG 190 ==
LOC: 4TH 15:12
PROVIDERS: ADMIT Family Medicine; ATTEND Family Medicine
DX: J44.0 Chronic obstructive pulmonary disease with (acute) lower respiratory infection (principal); J20.9 Acute bronchitis, unspecified; J96.20 Acute and chronic respiratory failure, unspecified whether with hypoxia or hypercapnia; J15.212 Pneumonia due to Methicillin resistant Staphylococcus aureus; I11.0 Hypertensive heart disease with heart failure; I50.32 Chronic diastolic (congestive) heart failure; F33.1 Major depressive disorder, recurrent, moderate; E11.65 Type 2 diabetes mellitus with hyperglycemia; F41.9 Anxiety disorder, unspecified; F98.8 Other specified behavioral and emotional disorders with onset usually occurring in childhood and adolescence; M19.91 Primary osteoarthritis, unspecified site; R29.6 Repeated falls; F43.10 Post-traumatic stress disorder, unspecified; Z87.891 Personal history of nicotine dependence; Z79.4 Long term (current) use of insulin; Z91.19 Patient's noncompliance with other medical treatment and regimen
CPT/HCPCS: 36415; 71045; 80048; 80053; 80202; 82962; 83605; 83880; 85025; 87040; 87070; 87077; 87186; 87205; 87804; 93306; 94640; 94760; 94761

== ENCOUNTER 2018-08-22 10:09 | Inpatient (IN) | payer MEDICARE ==
[~2018-08-22] VITALS: Ht 165.1 cm; Wt 114.7 kg
[~2018-08-22 10:09] MED LIST changes: +FURO-125 PO; +RANI150T46 PO; +SERT100T8 PO; +TRAZ150T72 PO
[2018-08-22] MEDS ORDERED: RT-ALBUTEROL/IPRATROPIUM 3 ML (DUONEB) VIAL INH PRN (10:15)
[2018-08-22] MEDS ORDERED: ONDANSETRON 4 MG (ZOFRAN) ORAL DISSOLVE TAB PO PRN (10:15)
[2018-08-22] MEDS ORDERED: IBUPROFEN 600 MG (MOTRIN) TAB PO PRN (10:15)
[2018-08-22] MEDS: VANCOMYCIN INJECTION 1,750 MG in NS IV 500 ML 500 ML IV SCH ×2 (11:38→23:28)
[2018-08-22] MEDS: inSUlin ASPART (NovoLOG) 1 UNIT/0.01 ML (CHARGE PER UNIT) SC SCH ×5 (11:39→21:01)
[2018-08-22] MEDS: RT-ALBUTEROL/IPRATROPIUM 3 ML (DUONEB) VIAL INH SCH ×2 (13:50→18:46)
--- NOTE | 2018-08-22 14:51 | Diagnostic Imaging Report ---
PROCEDURE: CT chest without contrast. TECHNIQUE: Multiple contiguous axial images were obtained through the chest without the use of intravenous contrast. INDICATION: Pneumonia. Comparison is made with chest radiograph earlier the same day. Comparison is also made with prior CT chest from 11/10/2017. No definite axillary lymphadenopathy is seen. Hilar and mediastinal evaluation is limited without intravenous contrast. There are coronary arterial calcifications present. No pericardial or pleural fluid is identified. The right hemidiaphragm is elevated. There is some mild dilatation of the esophagus which contains debris, perhaps owing to reflux. Parenchymal evaluation does show some minimal patchy groundglass infiltrates bilateral upper lobes. There is some mild consolidation in the right lower lobe with air bronchograms present. Left lower lobe is clear. The upper abdomen is unremarkable. IMPRESSION: 1. Minimal patchy groundglass infiltrates bilateral upper lobes, likely on an infectious/inflammatory basis. There is also some mild right lower lobe consolidation with air bronchograms consistent with pneumonia or atelectasis. No other significant abnormality is seen. Dictated by: Dictated on workstation # [id number]
[2018-08-22] MEDS: ENOXAPARIN 40 MG/0.4 ML (LOVENOX) SYR SC SCH (17:34)
[2018-08-22 18:00] VITALS: BP 138/89
[2018-08-22] MEDS: MICONAZOLE 2% POWDER (DESENEX AF) 90 GM TOP SCH (21:01)
[2018-08-22] MEDS: inSUlin DETERMIR 1 UNIT/0.01 ML (LEVEMIR) CHARGE PER UNIT SQ SCH (21:01)
[2018-08-22] MEDS: traZODone 150 MG (DESYREL) TABLET PO SCH (21:02)
[2018-08-23 05:41] LABS: BASOPHILS % (AUTO) 0 % (0-10); EOSINOPHILS # (AUTO) 0.2 10^3/uL (0.0-0.3); EOSINOPHILS % (AUTO) 2 % (0-10); HEMATOCRIT 38 % (35-52); HEMOGLOBIN 12.7 G/DL (11.5-16.0); LYMPHOCYTES # (AUTO) 2.4 X 10^3 (1.0-4.0); LYMPHOCYTES % (AUTO) 21 % (12-44); MEAN CORPUSCULAR HEMOGLOBIN 29 PG (25-34); MEAN CORPUSCULAR HGB CONC 34 G/DL (32-36); MEAN CORPUSCULAR VOLUME 86 FL (80-99); MEAN PLATELET VOLUME 8.7 FL (7.4-10.4); MONOCYTES # (AUTO) 0.8 X 10^3 (0.0-1.0); MONOCYTES % (AUTO) 7 % (0-12); NEUTROPHILS # (AUTO) 7.7 X 10^3 (1.8-7.8); NEUTROPHILS % (AUTO) 69 % (42-75); PLATELET COUNT 262 10^3/uL (130-400); RED BLOOD COUNT 4.42 10^6/uL (4.35-5.85); RED CELL DISTRIBUTION WIDTH 13.5 % (10.0-14.5); WHITE BLOOD COUNT 11.1 10^3/uL (4.3-11.0)
[2018-08-23 05:49] VITALS: BP 138/65
[2018-08-23 06:02] LABS: ALANINE AMINOTRANSFERASE 18 U/L (0-55); ALBUMIN 3.3 GM/DL (3.2-4.5); ALKALINE PHOSPHATASE 109 U/L (40-136); BILIRUBIN,TOTAL 0.2 MG/DL (0.1-1.0); BUN/CREATININE RATIO 19; CALCIUM 8.8 MG/DL (8.5-10.1); CARBON DIOXIDE 26 MMOL/L (21-32); CHLORIDE 98 MMOL/L (98-107); GFR ESTIMATED > 60; GLUCOSE 267 MG/DL (70-105); POTASSIUM 3.5 MMOL/L (3.6-5.0); SODIUM 135 MMOL/L (135-145); TOTAL PROTEIN 5.8 GM/DL (6.4-8.2)
--- NOTE | 2018-08-23 06:35 | Pulmonary Progress Note ---
Sepsis Event Evaluation Height, Weight, BMI Height: 5'5.00" Weight: 252lbs. 14.0oz. 114.877854uf; 41.4 BMI Method:Stated Exam Exam Vital Signs Date Time Temp Pulse Resp B/P (MAP) Pulse Ox O2 Delivery O2 Flow Rate FiO2 08/23/18 05:49 98.0 59 20 138/65 (89) 97 Nasal Cannula 3.50 08/22/18 21:00 Nasal Cannula 4.00 08/22/18 18:46 92 Nasal Cannula 4.00 08/22/18 18:32 Nasal Cannula 3.50 08/22/18 18:00 98.2 67 16 138/89 (105) 94 Nasal Cannula 08/22/18 17:35 70 08/22/18 13:50 97 Nasal Cannula 4.00 08/22/18 10:30 94 Nasal Cannula 4.00 I & O 08/23/18 07:00 Intake Total 2600 ml Output Total 2400 ml Balance 200 ml Height & Weight Height: 5'5.00" Weight: 252lbs. 14.0oz. 114.954081ov; 41.4 BMI Method:Stated Results Lab Laboratory Tests 08/23/18 05:27 Assessment/Plan Assessment/Plan Acute on chronic respiratory failure COPDAE with hypoxia -SVNs, Prednisone MRSA pneumonia vs colonization -Continue vancomycin for now Tobacco dependance -education Diastolic CHF GANGA JEAN DO Aug 23, 2018 06:35
[2018-08-23] MEDS: RT-ALBUTEROL/IPRATROPIUM 3 ML (DUONEB) VIAL INH SCH ×5 (06:41→22:09)
[2018-08-23 06:42] VITALS: BP 138/65
[2018-08-23] MEDS: inSUlin ASPART (NovoLOG) 1 UNIT/0.01 ML (CHARGE PER UNIT) SC SCH ×7 (07:00→20:22)
[2018-08-23] MEDS: ENOXAPARIN 40 MG/0.4 ML (LOVENOX) SYR SC SCH ×2 (07:00→18:43)
[2018-08-23] MEDS: predniSONE 20 MG TAB PO SCH (07:02)
[2018-08-23] MEDS: MULTIVIT W/MINERALS TAB (THERAGRAN M) PO SCH (07:02)
[2018-08-23] MEDS ORDERED: RT-ALBUTEROL/IPRATROPIUM 3 ML (DUONEB) VIAL INH PRN (07:45)
[2018-08-23] MEDS: LOSARTAN 50 MG (COZAAR) TAB PO SCH (08:33)
[2018-08-23] MEDS: PANTOPRAZOLE 40 MG (PROTONIX) TAB PO SCH (08:33)
[2018-08-23] MEDS: FUROSEMIDE 40 MG (LASIX) TAB PO SCH (08:34)
[2018-08-23] MEDS: SERTRALINE 100 MG (ZOLOFT) TAB PO SCH (08:34)
[2018-08-23] MEDS: MICONAZOLE 2% POWDER (DESENEX AF) 90 GM TOP SCH ×2 (08:34→20:23)
[2018-08-23] MEDS: inSUlin DETERMIR 1 UNIT/0.01 ML (LEVEMIR) CHARGE PER UNIT SQ SCH ×2 (08:42→20:22)
[2018-08-23] MEDS ORDERED: cefTRIAXone FOR IV USE 1,000 MG in NS (IVPB) 50 ML IV SCH (09:00)
--- NOTE | 2018-08-23 10:49 | Progress Note-Hospitalist ---
Subjective HPI/CC On Admission Date Seen by Provider: Aug 23, 2018 Time Seen by Provider: 09:45 Subjective/Events-last exam Patient doing much better Vancomycin has made a huge difference for patient with MRSA pneumonia Reviewed CT scan Reviewed labs Is experiencing a vaginal yeast infection so will initiate meds Review of Systems Pulmonary: Dyspnea, Cough Objective Exam Vital Signs Vital Signs Date Time Temp Pulse Resp B/P (MAP) Pulse Ox O2 Delivery O2 Flow Rate FiO2 08/23/18 10:30 95 Nasal Cannula 3.50 08/23/18 06:42 61 34 08/23/18 05:49 98.0 20 138/65 (89) Capillary Refill : General Appearance: No Apparent Distress, WD/WN, Chronically ill, Other ( improved) Respiratory: Chest Non Tender, No Accessory Muscle Use, No Respiratory Distress , Crackles, Decreased Breath Sounds Cardiovascular: Regular Rate, Rhythm, No Edema, No Gallop, No JVD, No Murmur, Normal Peripheral Pulses Neurologic/Psychiatric: Alert, Oriented x3, No Motor/Sensory Deficits, Normal Mood/Affect Results/Procedures Lab Laboratory Tests 08/23/18 05:27 Patient resulted labs reviewed. Assessment/Plan Assessment and Plan Assess & Plan/Chief Complaint Assessment: MRSA Pneumonia AECOPD Smoker DM OOC due to steroids Debility Plan: Continue Vanc Steroids Monitor closely Home O2 will be needed Diagnosis/Problems Diagnosis/Problems (1) MRSA pneumonia Status: Acute (2) Type 2 diabetes mellitus, with long-term current use of insulin Status: Chronic Qualifiers: Diabetes mellitus complication status: with circulatory complication Diabetes mellitus complication detail: with other circulatory complications Qualified Codes: E11.59 - Type 2 diabetes mellitus with other circulatory complications; Z79.4 - contact worker (current) use of insulin (3) Tobacco abuse Status: Chronic (4) Hypertension Status: Chronic Qualifiers: Hypertension type: essential hypertension Qualified Codes: I10 - Essential (primary) hypertension (5) Arthritis Status: Chronic (6) ADD (attention deficit disorder) Status: Chronic (7) PTSD (post-traumatic stress disorder) Status: Chronic (8) Depression Status: Chronic (9) RESPIRATORY FAILURE, UNSP, UNSP W HYPOXIA OR HYPERCAPNIA Status: Acute (10) COPD (chronic obstructive pulmonary disease) with acute bronchitis Status: Acute (11) Hypoxia Status: Acute (12) Diastolic dysfunction Status: Chronic (13) Debility Status: Chronic (14) Yeast vaginitis Status: Acute Clinical Quality Measures DVT/VTE Risk/Contraindication: Risk Factor Score Per Nursin HERMILA SWAIN DO Aug 23, 2018 10:49
[2018-08-23] MEDS: VANCOMYCIN INJECTION 1,750 MG in NS IV 500 ML 500 ML IV SCH ×2 (11:25→23:00)
--- NOTE | 2018-08-23 11:48 | Speech Therapy Progress Note ---
Therapy Progress Note Nursing informed this STRIKE OFF MACHINE OPERATOR yesterday that pt's diet had been upgraded for mech soft to regular. This was not done by this STRIKE OFF MACHINE OPERATOR. Nursing also reported that the pt did not care for that texture. I told nursing I would check it out the next morning at breakfast at 8am. Went up there at 8 am today and pt was asleep. The next time I checked on her she had already eaten breakfast. Observed her at lunch and did not observe any s/s of aspiration. Pt may remain on regular diet with thin liquids. FERNANDO BOCANEGRA Aug 23, 2018 11:48
[2018-08-23 18:00] VITALS: BP 159/75
[2018-08-23] MEDS: traZODone 150 MG (DESYREL) TABLET PO SCH (20:22)
[2018-08-23] MEDS: MICONAZOLE NITRATE 2% CRM 30 GM TP SCH (20:33)
[2018-08-24] MEDS: RT-ALBUTEROL/IPRATROPIUM 3 ML (DUONEB) VIAL INH SCH ×6 (01:28→22:32)
[2018-08-24 06:12] LABS: BASOPHILS % (AUTO) 0 % (0-10); EOSINOPHILS # (AUTO) 0.2 10^3/uL (0.0-0.3); EOSINOPHILS % (AUTO) 2 % (0-10); HEMATOCRIT 38 % (35-52); HEMOGLOBIN 12.7 G/DL (11.5-16.0); LYMPHOCYTES # (AUTO) 2.4 X 10^3 (1.0-4.0); LYMPHOCYTES % (AUTO) 21 % (12-44); MEAN CORPUSCULAR HEMOGLOBIN 29 PG (25-34); MEAN CORPUSCULAR HGB CONC 33 G/DL (32-36); MEAN CORPUSCULAR VOLUME 87 FL (80-99); MEAN PLATELET VOLUME 8.9 FL (7.4-10.4); MONOCYTES # (AUTO) 0.8 X 10^3 (0.0-1.0); MONOCYTES % (AUTO) 7 % (0-12); NEUTROPHILS % (AUTO) 70 % (42-75); PLATELET COUNT 257 10^3/uL (130-400); RED BLOOD COUNT 4.42 10^6/uL (4.35-5.85); RED CELL DISTRIBUTION WIDTH 13.4 % (10.0-14.5); WHITE BLOOD COUNT 11.4 10^3/uL (4.3-11.0)
[2018-08-24 06:14] VITALS: BP 162/85
[2018-08-24] MEDS: ENOXAPARIN 40 MG/0.4 ML (LOVENOX) SYR SC SCH ×2 (06:22→16:54)
[2018-08-24] MEDS: MULTIVIT W/MINERALS TAB (THERAGRAN M) PO SCH (06:23)
[2018-08-24] MEDS: predniSONE 20 MG TAB PO SCH (06:23)
[2018-08-24] MEDS: inSUlin ASPART (NovoLOG) 1 UNIT/0.01 ML (CHARGE PER UNIT) SC SCH ×7 (06:23→21:03)
[2018-08-24 06:35] LABS: ALANINE AMINOTRANSFERASE 17 U/L (0-55); ALBUMIN 3.2 GM/DL (3.2-4.5); ALKALINE PHOSPHATASE 94 U/L (40-136); BILIRUBIN,TOTAL 0.3 MG/DL (0.1-1.0); BUN/CREATININE RATIO 21; CALCIUM 9.1 MG/DL (8.5-10.1); CARBON DIOXIDE 29 MMOL/L (21-32); CHLORIDE 98 MMOL/L (98-107); CREATININE SERUM 0.73 MG/DL (0.60-1.30); GFR ESTIMATED > 60; GLUCOSE 150 MG/DL (70-105); POTASSIUM 3.6 MMOL/L (3.6-5.0); SODIUM 137 MMOL/L (135-145); TOTAL PROTEIN 5.6 GM/DL (6.4-8.2)
[2018-08-24] MEDS: FUROSEMIDE 40 MG (LASIX) TAB PO SCH (07:49)
[2018-08-24] MEDS: SERTRALINE 100 MG (ZOLOFT) TAB PO SCH (07:49)
[2018-08-24] MEDS: fluCOnazole (DIFLUCAN) 100 MG TAB PO SCH (07:49)
[2018-08-24] MEDS: PANTOPRAZOLE 40 MG (PROTONIX) TAB PO SCH (07:49)
[2018-08-24] MEDS: LOSARTAN 50 MG (COZAAR) TAB PO SCH (07:49)
[2018-08-24] MEDS: inSUlin DETERMIR 1 UNIT/0.01 ML (LEVEMIR) CHARGE PER UNIT SQ SCH ×2 (07:49→21:03)
[2018-08-24] MEDS: MICONAZOLE 2% POWDER (DESENEX AF) 90 GM TOP SCH ×2 (07:50→21:04)
[2018-08-24] MEDS: MICONAZOLE NITRATE 2% CRM 30 GM TP SCH ×3 (07:50→21:04)
--- NOTE | 2018-08-24 09:48 | Progress Note-Hospitalist ---
Subjective HPI/CC On Admission Date Seen by Provider: Aug 24, 2018 Time Seen by Provider: 09:30 Subjective/Events-last exam Patient feels better each and every day Home O2 evaluation is ordered along with tonight monitoring also Checked meds and labs Yeast vaginitis is improved on meds IV Vanc tolerated Review of Systems Pulmonary: Dyspnea Objective Exam Vital Signs Vital Signs Date Time Temp Pulse Resp B/P (MAP) Pulse Ox O2 Delivery O2 Flow Rate FiO2 08/24/18 06:45 95 Nasal Cannula 3.00 08/24/18 06:14 97.5 72 20 162/85 (110) 08/23/18 06:42 34 Capillary Refill : General Appearance: No Apparent Distress, WD/WN, Chronically ill, Obese Respiratory: Chest Non Tender, Lungs Clear, Normal Breath Sounds, No Accessory Muscle Use, No Respiratory Distress Cardiovascular: Regular Rate, Rhythm, No Edema, No Gallop, No JVD, No Murmur, Normal Peripheral Pulses Neurologic/Psychiatric: Alert, Oriented x3, No Motor/Sensory Deficits, Normal Mood/Affect Skin: Normal Color, Warm/Dry Results/Procedures Lab Laboratory Tests 08/24/18 06:01 Patient resulted labs reviewed. Assessment/Plan Assessment and Plan Assess & Plan/Chief Complaint Assessment: MRSA Pneumonia AECOPD Smoker DM OOC due to steroids Debility Plan: Continue Vanc Steroids Monitor closely Home O2 will be needed so ordered it today along with tonight evaluation DC planned Diagnosis/Problems Diagnosis/Problems (1) MRSA pneumonia Status: Acute (2) Type 2 diabetes mellitus, with long-term current use of insulin Status: Chronic Qualifiers: Diabetes mellitus complication status: with circulatory complication Diabetes mellitus complication detail: with other circulatory complications Qualified Codes: E11.59 - Type 2 diabetes mellitus with other circulatory complications; Z79.4 - technician terminal and repeater (current) use of insulin (3) Tobacco abuse Status: Chronic (4) Hypertension Status: Chronic Qualifiers: Hypertension type: essential hypertension Qualified Codes: I10 - Essential (primary) hypertension (5) Arthritis Status: Chronic (6) ADD (attention deficit disorder) Status: Chronic (7) PTSD (post-traumatic stress disorder) Status: Chronic (8) Depression Status: Chronic (9) RESPIRATORY FAILURE, UNSP, UNSP W HYPOXIA OR HYPERCAPNIA Status: Acute (10) COPD (chronic obstructive pulmonary disease) with acute bronchitis Status: Acute (11) Hypoxia Status: Acute (12) Diastolic dysfunction Status: Chronic (13) Debility Status: Chronic (14) Yeast vaginitis Status: Acute Clinical Quality Measures DVT/VTE Risk/Contraindication: Risk Factor Score Per Nursin HERMILA SWAIN DO Aug 24, 2018 09:48
[2018-08-24] MEDS ORDERED: amLODIPine 5 MG (NORVASC) TAB PO NR (10:00)
[2018-08-24] MEDS: VANCOMYCIN INJECTION 1,750 MG in NS IV 500 ML 500 ML IV SCH ×2 (10:12→22:30)
--- NOTE | 2018-08-24 11:25 | Pulmonary Progress Note ---
Sepsis Event Evaluation Height, Weight, BMI Height: 5'5.00" Weight: 252lbs. 14.0oz. 114.962348mq; 41.4 BMI Method:Stated Exam Exam Vital Signs Date Time Temp Pulse Resp B/P (MAP) Pulse Ox O2 Delivery O2 Flow Rate FiO2 08/24/18 10:46 Nasal Cannula 3.00 08/24/18 10:43 95 3.00 08/24/18 09:00 Nasal Cannula 4.00 08/24/18 06:45 95 Nasal Cannula 3.00 08/24/18 06:14 97.5 72 20 162/85 (110) 95 Nasal Cannula 3.50 08/24/18 01:28 85 Room Air 08/23/18 22:09 93 Nasal Cannula 3.00 08/23/18 21:00 Nasal Cannula 4.00 08/23/18 18:48 96 Nasal Cannula 3.00 08/23/18 18:00 98.7 63 20 159/75 (103) 98 Nasal Cannula 3.50 08/23/18 15:10 92 Room Air I & O 08/24/18 07:00 Intake Total 3547.5 ml Output Total 1650 ml Balance 1897.5 ml Height & Weight Height: 5'5.00" Weight: 252lbs. 14.0oz. 114.238764mj; 41.4 BMI Method:Stated General Appearance: No Apparent Distress, WD/WN, Chronically ill, Obese Respiratory: Chest Non Tender, Lungs Clear, Normal Breath Sounds, No Accessory Muscle Use, No Respiratory Distress Cardiovascular: Regular Rate, Rhythm, No Edema, No Gallop, No JVD, No Murmur, Normal Peripheral Pulses Neurologic/Psychiatric: Alert, Oriented x3, No Motor/Sensory Deficits, Normal Mood/Affect Skin: Normal Color, Warm/Dry Results Lab Laboratory Tests 08/23/18 05:27 08/24/18 06:01 Assessment/Plan Assessment/Plan Acute on chronic respiratory failure COPDAE with hypoxia -SVNs, Prednisone MRSA pneumonia vs colonization -Continue vancomycin for now Tobacco dependance -education Diastolic CHF GANGA JEAN DO Aug 24, 2018 11:25
[2018-08-24] MEDS: traZODone 150 MG (DESYREL) TABLET PO SCH (21:03)
[2018-08-25] VITALS: BP 129/57
[2018-08-25] MEDS: RT-ALBUTEROL/IPRATROPIUM 3 ML (DUONEB) VIAL INH SCH ×3 (02:40→10:24)
[2018-08-25 05:55] LABS: BASOPHILS # (AUTO) 0.1 10^3/uL (0.0-0.1); BASOPHILS % (AUTO) 0 % (0-10); EOSINOPHILS # (AUTO) 0.2 10^3/uL (0.0-0.3); EOSINOPHILS % (AUTO) 2 % (0-10); HEMATOCRIT 38 % (35-52); HEMOGLOBIN 12.9 G/DL (11.5-16.0); LYMPHOCYTES # (AUTO) 2.9 X 10^3 (1.0-4.0); LYMPHOCYTES % (AUTO) 24 % (12-44); MEAN CORPUSCULAR HEMOGLOBIN 29 PG (25-34); MEAN CORPUSCULAR HGB CONC 34 G/DL (32-36); MEAN CORPUSCULAR VOLUME 86 FL (80-99); MEAN PLATELET VOLUME 8.8 FL (7.4-10.4); MONOCYTES # (AUTO) 0.8 X 10^3 (0.0-1.0); MONOCYTES % (AUTO) 7 % (0-12); NEUTROPHILS # (AUTO) 7.9 X 10^3 (1.8-7.8); NEUTROPHILS % (AUTO) 67 % (42-75); PLATELET COUNT 274 10^3/uL (130-400); RED BLOOD COUNT 4.45 10^6/uL (4.35-5.85); RED CELL DISTRIBUTION WIDTH 13.5 % (10.0-14.5); WHITE BLOOD COUNT 11.8 10^3/uL (4.3-11.0)
[2018-08-25] MEDS: predniSONE 20 MG TAB PO SCH (05:56)
[2018-08-25] MEDS: inSUlin ASPART (NovoLOG) 1 UNIT/0.01 ML (CHARGE PER UNIT) SC SCH ×4 (05:57→11:28)
[2018-08-25] MEDS: ENOXAPARIN 40 MG/0.4 ML (LOVENOX) SYR SC SCH (05:58)
[2018-08-25] MEDS: MULTIVIT W/MINERALS TAB (THERAGRAN M) PO SCH (06:01)
[2018-08-25 06:15] LABS: ALANINE AMINOTRANSFERASE 16 U/L (0-55); ALBUMIN 3.3 GM/DL (3.2-4.5); ALKALINE PHOSPHATASE 104 U/L (40-136); BILIRUBIN,TOTAL 0.3 MG/DL (0.1-1.0); BUN/CREATININE RATIO 22; CALCIUM 9.1 MG/DL (8.5-10.1); CARBON DIOXIDE 29 MMOL/L (21-32); CHLORIDE 96 MMOL/L (98-107); CREATININE SERUM 0.77 MG/DL (0.60-1.30); GFR ESTIMATED > 60; GLUCOSE 224 MG/DL (70-105); POTASSIUM 3.4 MMOL/L (3.6-5.0); SODIUM 136 MMOL/L (135-145); TOTAL PROTEIN 5.8 GM/DL (6.4-8.2)
[2018-08-25 08:00] VITALS: BP 158/70
[2018-08-25] MEDS: MICONAZOLE 2% POWDER (DESENEX AF) 90 GM TOP SCH (08:03)
[2018-08-25] MEDS: LOSARTAN 50 MG (COZAAR) TAB PO SCH (08:03)
[2018-08-25] MEDS: PANTOPRAZOLE 40 MG (PROTONIX) TAB PO SCH (08:03)
[2018-08-25] MEDS: FUROSEMIDE 40 MG (LASIX) TAB PO SCH (08:03)
[2018-08-25] MEDS: fluCOnazole (DIFLUCAN) 100 MG TAB PO SCH (08:03)
[2018-08-25] MEDS: inSUlin DETERMIR 1 UNIT/0.01 ML (LEVEMIR) CHARGE PER UNIT SQ SCH (08:03)
[2018-08-25] MEDS: SERTRALINE 100 MG (ZOLOFT) TAB PO SCH (08:03)
[2018-08-25] MEDS: MICONAZOLE NITRATE 2% CRM 30 GM TP SCH (08:04)
--- NOTE | 2018-08-25 08:52 | Pulmonary Progress Note ---
Subjective Time Seen by a Provider: 10:08 Subjective/Events-last exam Pt is going home today. Sepsis Event Evaluation Height, Weight, BMI Height: 5'65.00" Weight: 252lbs. 14.0oz. 114.918825xx; 41.4 BMI Method:Stated Exam Exam Vital Signs Date Time Temp Pulse Resp B/P (MAP) Pulse Ox O2 Delivery O2 Flow Rate FiO2 08/25/18 02:40 85 Room Air 08/25/18 00:00 97.2 89 14 129/57 (81) 91 Room Air 08/24/18 22:32 94 Nasal Cannula 3.00 08/24/18 21:00 Nasal Cannula 4.00 08/24/18 18:48 95 Nasal Cannula 3.00 08/24/18 13:53 94 Nasal Cannula 3.00 08/24/18 10:46 Nasal Cannula 3.00 08/24/18 10:43 95 3.00 08/24/18 09:00 Nasal Cannula 4.00 I & O 08/25/18 07:00 Intake Total 2652 ml Output Total 2500 ml Balance 152 ml Height & Weight Height: 5'65.00" Weight: 252lbs. 14.0oz. 114.712119ji; 41.4 BMI Method:Stated General Appearance: No Apparent Distress, WD/WN, Chronically ill, Obese Respiratory: Chest Non Tender, Lungs Clear, Normal Breath Sounds, No Accessory Muscle Use, No Respiratory Distress Cardiovascular: Regular Rate, Rhythm, No Edema, No Gallop, No JVD, No Murmur, Normal Peripheral Pulses Neurologic/Psychiatric: Alert, Oriented x3, No Motor/Sensory Deficits, Normal Mood/Affect Skin: Normal Color, Warm/Dry Results Lab Laboratory Tests 08/24/18 06:01 08/25/18 05:30 Assessment/Plan Assessment/Plan Acute on chronic respiratory failure COPDAE with hypoxia -Pt has home oxygen arranged -SVNs, Prednisone MRSA pneumonia vs colonization -vancomycin currently -Pt is allergic to Sulfa -Probably home with doxy today -I will follow up with her as out patient in 2wks. Tobacco dependance -education Diastolic CHF GANGA JEAN DO Aug 25, 2018 08:52
[2018-08-25] MEDS ORDERED: amLODIPine 5 MG (NORVASC) TAB PO SCH (09:00)
[2018-08-25] MEDS: VANCOMYCIN INJECTION 1,750 MG in NS IV 500 ML 500 ML IV SCH (10:06)
[2018-08-25] MEDS ORDERED: AMLO5TAB7 PO (11:05)
[2018-08-25] MEDS ORDERED: IPRA3AMP31 INH (11:05)
[2018-08-25] MEDS ORDERED: DOXY100C2 PO (11:05)
[2018-08-25] MEDS ORDERED: TERC20CR VG (11:05)
[2018-08-25] MEDS ORDERED: OMEP40CA36 PO (11:05)
[2018-08-25] MEDS ORDERED: FURO-125 PO (11:05)
[2018-08-25] MEDS ORDERED: LOSA50TA7 PO (11:05)
[2018-08-25] MEDS ORDERED: FLUC100T PO (11:05)
[2018-08-25] MEDS ORDERED: PRED10TA22 PO (11:05)
[2018-08-25] MEDS ORDERED: HYDR-3584 PO (11:05)
--- NOTE | 2018-08-25 11:12 | D/C HH Face to Face Order ---
D/C Face to Face Orders Instructions for Patient [facility] Patient Instructions/FollowUp: [facility] Dr Mendes 08/28/18 at 1140 and transportation will pick her up at 1115 Physician to follow Patient: Dr Mendes at [facility] Discharge Diet for Home: ADA Diet Patient Problems: MRSA Pneumonia AECOPD DM OOC Presumed MEL New home O2 Patient Data-Allergies,Ht & Wt Patient Allergies: Coded Allergies: Sulfa (Sulfonamide Antibiotics) (Verified Allergy, Unknown, 08/26/14) morphine (Verified Adverse Reaction, Mild, NAUSEA, 05/19/16) Height (Feet): 5 Height (Inches): 65.00 Weight (Pounds): 252 Weight (Ounces): 14.0 Home Health Need/Face to Face Date of Face to Face: Aug 25, 2018 Clinical Findings: Generalized weakness and fatigue, Muscle weakness, Unsteady gait I have seen Pt [id number]: Yes Discharged To: Home Diagnosis/Conditions: MRSA Pneumonia AECOPD DM OOC Presumed MEL New home O2 Patient is Homebound due to: Shortness of breath/distress Homebound Status Due to the above stated illness, injury or surgical procedure (medical condition or diagnosis) and associated clinical findings, the patient is homebound because of his/her inability to leave home except with aid of a supportive device and/or person AND leaving the home requires a considerable and taxing effort or is medically contraindicated. Pt req the following assistanc: Cane Home Health Nursing Orders Home Health Services Order: Nursing Services, Account Manager Education-Evaluate & Treat Home Health Infusion Therapy Line Start Date: Aug 22, 2018 Line Start Time: 2325 Line Type: Saline Lock Site Location: Hand Certify Stmt I certify that this patient is under my care and that I, a nurse practitioner or a physician; a transportation assistant working with me, had a face to face encounter that - meets the physician face to face encounter requirements with this patient as dated. HERMILA SWAIN DO Aug 25, 2018 11:12
--- NOTE | 2018-08-25 11:13 | Discharge Summary-Hospitalist ---
Diagnosis/Chief Complaint Date of Admission Aug 22, 2018 at 10:13 Date of Discharge Discharge Date: Aug 25, 2018 Discharge Diagnosis (1) MRSA pneumonia Status: Acute (2) Type 2 diabetes mellitus, with long-term current use of insulin Status: Chronic (3) Tobacco abuse Status: Chronic (4) Hypertension Status: Chronic (5) Arthritis Status: Chronic (6) ADD (attention deficit disorder) Status: Chronic (7) PTSD (post-traumatic stress disorder) Status: Chronic (8) Depression Status: Chronic (9) RESPIRATORY FAILURE, UNSP, UNSP W HYPOXIA OR HYPERCAPNIA Status: Acute (10) COPD (chronic obstructive pulmonary disease) with acute bronchitis Status: Acute (11) Hypoxia Status: Acute (12) Diastolic dysfunction Status: Chronic (13) Debility Status: Chronic (14) Yeast vaginitis Status: Acute Discharge Summary Discharge Physical Exam Allergies: Coded Allergies: Sulfa (Sulfonamide Antibiotics) (Verified Allergy, Unknown, 08/26/14) morphine (Verified Adverse Reaction, Mild, NAUSEA, 05/19/16) Vitals & I&Os Vital Signs Date Time Temp Pulse Resp B/P (MAP) Pulse Ox O2 Delivery O2 Flow Rate FiO2 08/25/18 10:24 93 Nasal Cannula 2.00 08/25/18 08:00 96.8 62 16 158/70 (99) 08/23/18 06:42 34 General Appearance: No Apparent Distress, WD/WN Respiratory: Chest Non Tender, Lungs Clear, Normal Breath Sounds, No Accessory Muscle Use, No Respiratory Distress Neurologic/Psychiatric: Alert, Oriented x3, No Motor/Sensory Deficits, Normal Mood/Affect Hospital Course Hospital course: patient had a short SB hospital course. She was maintained on steroids and IV Vanc for MRSA pneumonia which improved her status. She met criteria for new home O2 and was deemed stable for DC on Doxy for 7 days to complete treatment. Labs (last 24 hrs) Laboratory Tests 08/24/18 16:32: Glucometer 222H 08/24/18 20:10: Glucometer 268H 08/25/18 05:16: Glucometer 232H 08/25/18 05:30: White Blood Count 11.8H, Red Blood Count 4.45, Hemoglobin 12.9, Hematocrit 38, Mean Corpuscular Volume 86, Mean Corpuscular Hemoglobin 29, Mean Corpuscular Hemoglobin Concent 34, Red Cell Distribution Width 13.5, Platelet Count 274, Mean Platelet Volume 8.8, Neutrophils (%) (Auto) 67, Lymphocytes (%) (Auto) 24, Monocytes (%) (Auto) 7, Eosinophils (%) (Auto) 2, Basophils (%) (Auto) 0, Neutrophils # (Auto) 7.9H, Lymphocytes # (Auto) 2.9, Monocytes # (Auto) 0.8, Eosinophils # (Auto) 0.2, Basophils # (Auto) 0.1, Sodium Level 136, Potassium Level 3.4L, Chloride Level 96L, Carbon Dioxide Level 29, Anion Gap 11, Blood Urea Nitrogen 17, Creatinine 0.77, Estimat Glomerular Filtration Rate > 60, BUN/ Creatinine Ratio 22, Glucose Level 224H, Calcium Level 9.1, Corrected Calcium 9.7, Total Bilirubin 0.3, Aspartate Amino Transf (AST/SGOT) 12, Alanine Aminotransferase (ALT/SGPT) 16, Alkaline Phosphatase 104, Total Protein 5.8L, Albumin 3.3 08/25/18 11:05: Glucometer 273H Patient resulted labs reviewed. Pending Labs Laboratory Tests 08/25/18 05:16: Glucometer 232 08/25/18 05:30: White Blood Count 11.8, Red Blood Count 4.45, Hemoglobin 12.9, Hematocrit 38, Mean Corpuscular Volume 86, Mean Corpuscular Hemoglobin 29, Mean Corpuscular Hemoglobin Concent 34, Red Cell Distribution Width 13.5, Platelet Count 274, Mean Platelet Volume 8.8, Neutrophils (%) (Auto) 67, Lymphocytes (%) (Auto) 24, Monocytes (%) (Auto) 7, Eosinophils (%) (Auto) 2, Basophils (%) (Auto) 0, Neutrophils # (Auto) 7.9, Lymphocytes # (Auto) 2.9, Monocytes # (Auto) 0.8, Eosinophils # (Auto) 0.2, Basophils # (Auto) 0.1, Sodium Level 136, Potassium Level 3.4, Chloride Level 96, Carbon Dioxide Level 29, Anion Gap 11, Blood Urea Nitrogen 17, Creatinine 0.77, Estimat Glomerular Filtration Rate > 60, BUN/ Creatinine Ratio 22, Glucose Level 224, Calcium Level 9.1, Corrected Calcium 9.7 , Total Bilirubin 0.3, Aspartate Amino Transf (AST/SGOT) 12, Alanine Aminotransferase (ALT/SGPT) 16, Alkaline Phosphatase 104, Total Protein 5.8, Albumin 3.3 08/25/18 11:05: Glucometer 273 Discussion & Recommendations Discharge Planning: <30 minutes discharge planning Discharge Home Medications: Active Scripts Active Hydroxyzine HCl 10 Mg Tablet 10 Mg PO HS Lasix (Furosemide) 20 Mg Tablet 20 Mg PO Q48H Iprat-Albut 0.5-3(2.5) mg/3 ml (Ipratropium/Albuterol Sulfate) 3 Ml Ampul.neb 3 Ml INH RTQ4HR Prednisone 10 Mg Tab.ds.pk 10 Mg PO DAILY Take 3 tabs(30mg)daily and decrease by 1 tab(10MG)every other day. Omeprazole 40 Mg Capsule.dr 40 Mg PO DAILY Losartan Potassium 50 Mg Tablet 50 Mg PO DAILY Amlodipine Besylate 5 Mg Tablet 5 Mg PO DAILY Terconazole 20 Gm Cream.appl 20 Gm VG HS Diflucan (Fluconazole) 100 Mg Tablet 100 Mg PO DAILY Doxycycline Hyclate 100 Mg Capsule 100 Mg PO BID Reported Zantac (Ranitidine HCl) 150 Mg Tablet 150 Mg PO DAILY PRN Trazodone HCl 150 Mg Tablet 150 Mg PO HS Sertraline HCl 100 Mg Tablet 100 Mg PO DAILY Ventolin Hfa (Albuterol Sulfate) 1 Puff Puff 2 Puff IH Q4H PRN 1 PUFF = 90 MCG Tresiba Flextouch U-100 (Insulin Degludec) 100 Unit/1 Ml Insuln.pen 60 Units SC HS Daily Multiple Vitamin (Multivitamin) 1 Each Tablet 1 Tab PO DAILY Preservision Areds 2 Softgel (Vit C/E/Zn/Coppr/Lutein/Zeaxan) 1 Each Capsule 1 Tab PO BID Osteo Bi-Flex Caplet (Glucosamine HCl/Chondr Bentley A Na) 1 Each Tablet 1 Tab PO DAILY Probiotic (Lactobacillus Acidophilus) 1 Each Capsule 1 Cap PO DAILY Novolog Flexpen (Insulin Aspart) 300 Units/3 Ml Solution 12 Units SQ TIDAC Instructions to patient/family Please see electronic discharge instructions given to patient. Clinical Quality Measures DVT/VTE Risk/Contraindication: Risk Factor Score Per Nursin Problem Qualifiers (1) Type 2 diabetes mellitus, with long-term current use of insulin: Diabetes mellitus complication status: with circulatory complication Diabetes mellitus complication detail: with other circulatory complications Qualified Codes: E11.59 - Type 2 diabetes mellitus with other circulatory complications; Z79.4 - [facility]CI (current) use of insulin (2) Hypertension: Hypertension type: essential hypertension Qualified Codes: I10 - Essential ( primary) hypertension HERMILA SWAIN DO Aug 25, 2018 11:13
[2018-08-26] MEDS ORDERED: predniSONE 20 MG TAB PO SCH (07:00)
== END 2018-08-25 13:00 | disposition home health service (06) | DRG 177 ==
LOC: 4TH 10:13
PROVIDERS: ADMIT Internal Medicine; ATTEND Internal Medicine
DX: J15.212 Pneumonia due to Methicillin resistant Staphylococcus aureus (principal); J44.1 Chronic obstructive pulmonary disease with (acute) exacerbation; J44.0 Chronic obstructive pulmonary disease with (acute) lower respiratory infection; J20.9 Acute bronchitis, unspecified; J96.20 Acute and chronic respiratory failure, unspecified whether with hypoxia or hypercapnia; I11.0 Hypertensive heart disease with heart failure; I50.32 Chronic diastolic (congestive) heart failure; F17.200 Nicotine dependence, unspecified, uncomplicated; B37.3 Candidiasis of vulva and vagina; E11.65 Type 2 diabetes mellitus with hyperglycemia; T38.0X5A Adverse effect of glucocorticoids and synthetic analogues, initial encounter; R53.81 Other malaise; M19.91 Primary osteoarthritis, unspecified site; F98.8 Other specified behavioral and emotional disorders with onset usually occurring in childhood and adolescence; F43.10 Post-traumatic stress disorder, unspecified; F32.9 Major depressive disorder, single episode, unspecified; Z79.4 Long term (current) use of insulin; Z88.2 Allergy status to sulfonamides
CPT/HCPCS: 36415; 71250; 80053; 82962; 85025; 94640; 94664; 94760; 94761; 94762

== ENCOUNTER → 2018-09-25 | Outpatient (CLI) | payer MEDICARE ==
[~2018-09-25] MED LIST changes: +AMLO5TAB7 PO; +BARIUM SUSPENSION 105% (LIQUID POLIBAR PLUS) 240 ML/DOSE PO ONE; +BARIUM SUSPENSION 60% (LIQUID EZ PAQUE) 240 ML DOSE PO ONE; +DOXY100C2 PO; +FLUC100T PO; +HYDR-3584 PO; +IOHEXOL 350 MG/ML 100 ML (OMNIPAQUE 350) VIAL IV ONE; +IPRA3AMP31 INH; +NS 250 ML (IVPB) BAG IV ONE; +OMEP40CA36 PO; +PRED10TA22 PO; +RECEIVED CONTRAST (Hold Metformin) IV SCH; +TERC20CR VG
[2018-09-25 10:38] LABS: BUN/CREATININE RATIO 15; CREATININE SERUM 0.86 MG/DL (0.60-1.30); GFR ESTIMATED > 60
--- NOTE | 2018-09-25 13:37 | Diagnostic Imaging Report ---
INDICATION: Dysphagia. TECHNIQUE: The patient ingested effervescent crystals as well as thin and thick barium and imaging over the esophagus was performed. A total of 1 minute 59 seconds of fluoroscopy was utilized. FINDINGS: The esophagus has a fairly smooth contour. No mass or stricture is identified. No significant gastroesophageal reflux or hiatal hernia is seen. IMPRESSION: Unremarkable esophagram. Dictated by: Dictated on workstation # [id number]
--- NOTE | 2018-09-25 13:56 | Diagnostic Imaging Report ---
PROCEDURE: CT neck soft tissue with contrast. TECHNIQUE: Multiple contiguous axial images were obtained through the neck after the administration of contrast. INDICATION: Dysphagia. COMPARISON: CT chest of 08/22/[address] cervical spine from 08/17/2017. FINDINGS: Airway is widely patent. There is no evidence of mucosal-based mass in the pharynx or larynx. Salivary glands are symmetric. Stable calcified 8 mm nodule within the thyroid isthmus. Remainder of thyroid is unchanged. No cervical lymphadenopathy. The common carotid arteries appear patent. Bilateral internal jugular veins are also patent. Lung apices are clear. No concerning focal osseous lesions. No space-occupying mass or hydrocephalus within the visualized brain. Orbits are unremarkable. IMPRESSION: 1. No abnormality to account for patient's dysphagia. Dictated by: Dictated on workstation # [id number]
== END ==
LOC: RAD 10:07
PROVIDERS: ATTEND Otolaryngology Otolaryngology/Facial Plastic Surgery
DX: R13.10 Dysphagia, unspecified (principal)
CPT/HCPCS: 36415; 70491; 74220; 82565; 84520

== ENCOUNTER → 2018-10-18 | Outpatient (CLI) | payer MEDICARE ==
[~2018-10-18] MED LIST changes: -BARIUM SUSPENSION 105% (LIQUID POLIBAR PLUS) 240 ML/DOSE PO ONE; -BARIUM SUSPENSION 60% (LIQUID EZ PAQUE) 240 ML DOSE PO ONE; -IOHEXOL 350 MG/ML 100 ML (OMNIPAQUE 350) VIAL IV ONE; -NS 250 ML (IVPB) BAG IV ONE; -RECEIVED CONTRAST (Hold Metformin) IV SCH
--- NOTE | 2018-10-18 08:55 | Diagnostic Imaging Report ---
PROCEDURE: CT chest without contrast. TECHNIQUE: Multiple contiguous axial images were obtained through the chest without the use of intravenous contrast. INDICATION: Pneumonia and shortness of breath. Comparison is made with prior CT chest from 08/22/2018. No axillary, hilar or mediastinal lymphadenopathy is detected. Coronary arterial calcifications again seen. There is no pericardial or pleural fluid detected. Previously noted minimal groundglass infiltrates of the upper lobes have resolved. In addition, the area of atelectasis/infiltrate in the right lower lobe has significantly improved. There appears to be some residual subsegmental atelectasis in the right middle lobe and right lower lobe. Right hemidiaphragm is elevated. Left lung is clear. No new abnormality seen. Upper abdomen does show postsurgical changes to the stomach. IMPRESSION: Improved appearance of the chest since exam from 08/22/2018. Bilateral upper lobe groundglass infiltrates have resolved. There has been improved aeration to the right lower lobe since prior. Dictated by: Dictated on workstation # [id number]
== END ==
LOC: RAD 08:10
PROVIDERS: ATTEND Nurse Practitioner Family
DX: J18.1 Lobar pneumonia, unspecified organism (principal); J44.9 Chronic obstructive pulmonary disease, unspecified; G47.10 Hypersomnia, unspecified; Z87.891 Personal history of nicotine dependence
CPT/HCPCS: 71250

== ENCOUNTER 2020-01-14 03:18 | Inpatient (IN) | payer MEDICARE ==
[~2020-01-14] VITALS: Ht 165 cm; Wt 103.2 kg
[2020-01-14] VITALS (26 sets, daily range): BP systolic 114–215; BP diastolic 57–113
[~2020-01-14 03:18] MED LIST changes: -ACET-77 PO; +ACET-78 PO; -AMLO5TAB7 PO; +AMLO5TAB9 PO; -CHLO473M MM; +LOSA25TA41 PO; -LOSA25TA6 PO; +LOSA50TA63 PO; -LOSA50TA7 PO; +MIRT-47 PO; -MIRT15TA8 PO; +NFCHLORHGL MM; +OMEP40CA27 PO; -OMEP40CA36 PO; +RANI-613 PO; -RANI150T46 PO; -TRAM50TA2; -TRAM50TA2 PO; +TRM50T
--- NOTE | 2020-01-14 04:50 | Pulmonary Consultation ---
History of Present Illness History of Present Illness Date Seen by Provider: Jan 14, 2020 Time Seen by Provider: 04:46 Date of Admission Allergies and Home Medications Allergies Coded Allergies: Sulfa (Sulfonamide Antibiotics) (Verified Allergy, Unknown, 08/26/14) morphine (Verified Adverse Reaction, Mild, NAUSEA, 05/19/16) Home Medications Albuterol Sulfate 1 Puff Puff, 2 PUFF IH Q4H PRN for SHORTNESS OF BREATH, (Reported) 1 PUFF = 90 MCG Amlodipine Besylate 5 Mg Tablet, 5 MG PO DAILY Prescribed by: HERMILA SWAIN on 08/25/181104 Doxycycline Hyclate 100 Mg Capsule, 100 MG PO BID Prescribed by: HERMILA SWAIN on 08/25/181104 Fluconazole 100 Mg Tablet, 100 MG PO DAILY Prescribed by: HERMILA SWAIN on 08/25/181104 Furosemide 20 Mg Tablet, 20 MG PO Q48H Prescribed by: HERMILA SWAIN on 08/25/181104 Glucosamine HCl/Chondr Bentley A Na 1 Each Tablet, 1 TAB PO DAILY, (Reported) Hydroxyzine HCl 10 Mg Tablet, 10 MG PO HS Prescribed by: HERMILA SWAIN on 08/25/181104 Insulin Aspart 300 Units/3 Ml Solution, 12 UNITS SQ TIDAC, (Reported) Insulin Degludec 100 Unit/1 Ml Insuln.pen, 60 UNITS SC HS, (Reported) Ipratropium/Albuterol Sulfate 3 Ml Ampul.neb, 3 ML INH RTQ4HR Prescribed by: HERMILA SWAIN on 08/25/181104 Lactobacillus Acidophilus 1 Each Capsule, 1 CAP PO DAILY, (Reported) Losartan Potassium 50 Mg Tablet, 50 MG PO DAILY Prescribed by: HERMILA SWAIN on 08/25/181104 Multivitamin 1 Each Tablet, 1 TAB PO DAILY, (Reported) Omeprazole 40 Mg Capsule.dr, 40 MG PO DAILY Prescribed by: HERMILA SWAIN on 08/25/181104 Prednisone 10 Mg Tab.ds.pk, 10 MG PO DAILY Take 3 tabs(30mg)daily and decrease by 1 tab(10MG)every other day. Prescribed by: HERMILA SWAIN on 08/25/181104 Ranitidine HCl 150 Mg Tablet, 150 MG PO DAILY PRN for HEARTBURN, (Reported) Sertraline HCl 100 Mg Tablet, 100 MG PO DAILY, (Reported) Terconazole 20 Gm Cream.appl, 20 GM VG HS Prescribed by: HERMILA SWAIN on 08/25/18 1105 Trazodone HCl 150 Mg Tablet, 150 MG PO HS, (Reported) Vit C/E/Zn/Coppr/Lutein/Zeaxan 1 Each Capsule, 1 TAB PO BID, (Reported) Past Fzuddan-Jziagg-Chigwp Hx Patient Social History Alcohol Beverage of Choice: Whiskey Drug of Choice: PT DENIES Type Used: Cigarettes Former Smoker, Quit: Feb 18, 2016 2nd Hand Smoke Exposure: Yes Recent Hopitalizations: No Immunizations Up To Date Tetanus Booster (TDap): Less than 5yrs PED Vaccines UTD: No Date of Pneumonia Vaccine: Aug 31, 2017 Date of Influenza Vaccine: Jul 31, 2018 Seasonal Allergies Seasonal Allergies: Yes Past Medical History Surgeries: Yes Abdominal, Section, Hysterectomy, Orthopedic Respiratory: Yes Pneumonia, COPD Currently Using CPAP: No Currently Using BIPAP: No Cardiac: Yes Hypertension Neurological: Yes Dementia 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 Disorders: No Female 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 Disorders: Denies 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 History: Hysterectomy, Menopausal Sexually Transmitted Disease: No HIV/AIDS: No Genitourinary: No Gastrointestinal: Yes Gastroesophageal Reflux, Hiatal Hernia Musculoskeletal: Yes (LEFT TOTAL KNEE REPLACEMENT) Arthritis Endocrine: Yes Diabetes, Insulin dep HEENT: Yes Cataract Hearing Impairment: Denies Cancer: No Psychosocial: Yes ADD/ADHD, Eating Disorder, Anxiety, Depression Integumentary: Yes Psoriasis Blood Disorders: No Adverse Reaction/Blood Tranf: No Family Medical History AIDS Alcoholism Arthritis Asthma Cataracts Coronary thrombosis Diabetes mellitus Drug abuse Glaucoma Psychosocial problem Respiratory disorder No Family History of: Attala's disease Alzheimer's disease Aphasia Cancer of mouth Cardiovascular disease Colon cancer Completed stroke Congenital disease Congenital heart disease Cystic fibrosis Deafness or hearing loss Dementia Dysphasia Fibrocystic disease of breast Gastroenteritis Headache disorder Hypercholesterolemia Hypertension Infertility Kidney disease Myocardial infarction Neoplasm Not obtainable due to adoption Osteoporosis Parkinson's disease Prostate cancer Seizure disorder Severe allergy Thyroid disease Tuberculosis Visual disorder No Pertinent Family Hx Sepsis Event Evaluation Height, Weight, BMI Height: 5'65.00" Weight: 252lbs. 14.0oz. 114.721440sl; 41.4 BMI Method:Stated Exam Exam Height & Weight Height: 5'65.00" Weight: 252lbs. 14.0oz. 114.445059pg; 41.4 BMI Method:Stated Assessment/Plan Assessment/Plan hx of COPD Tobacco dependance -education Diastolic CHF GANGA JEAN DO Jan 14, 2020 04:50
--- NOTE | 2020-01-14 04:57 | NUR ---
PT REPORTED TO THIS RN TO REMOVE SULFA ALLERGY FROM ALLERGY LIST. PT STATES "I HAVE NEVER BEEN ALLERGIC TO IT."
--- NOTE | 2020-01-14 05:11 | NUR ---
PER DR JEAN HOLD STARTING DKA PROTOCOL UNTIL LABS ARE BACK.
[2020-01-14] MEDS: ONDANSETRON 4 MG/2 ML (SDV) Z0FRAN IVP PRN ×3 (05:12→21:49)
[2020-01-14 05:38] LABS: BILIRUBIN,URINE NEGATIVE (NEGATIVE); CLARITY,URINE SL CLOUDY; COLOR,URINE YELLOW; GLUCOSE, URINE (UA) 3+ (NEGATIVE); KETONES,URINE 3+ (NEGATIVE); LEUKOCYTE ESTERASE ,URINE NEGATIVE (NEGATIVE); NITRITE,URINE NEGATIVE (NEGATIVE); PH,URINE 5.5 (5-9); PROTEIN,URINE 2+ (NEGATIVE)
[2020-01-14 05:55] LABS: BACTERIA,URINE TRACE /HPF; HYALINE CASTS, URINE RARE /LPF
[2020-01-14 05:57] LABS: AMPHETAMINE SCREEN, URINE NEGATIVE (NEGATIVE); BARBITURATE SCREEN URINE NEGATIVE (NEGATIVE); BENZODIAZEPINES SCREEN URINE NEGATIVE (NEGATIVE); CANNABINOID SCREEN, URINE NEGATIVE (NEGATIVE); COCAINE SCREEN URINE NEGATIVE (NEGATIVE); METHADONE STAT NEGATIVE (NEGATIVE); METHAMPHETAMINE SCREEN URINE S NEGATIVE (NEGATIVE); OPIATE SCREEN URINE NEGATIVE (NEGATIVE); OXYCODONE STAT NEGATIVE (NEGATIVE); PROPOXYPHENE STAT NEGATIVE (NEGATIVE); TRICYCLIC ANTIDEPRESSANTS SCRE NEGATIVE (NEGATIVE)
[2020-01-14 06:02] LABS: BASOPHILS % (AUTO) 0 % (0-10); EOSINOPHILS % (AUTO) 0 % (0-10); HEMATOCRIT 50 % (35-52); HEMOGLOBIN 17.8 G/DL (11.5-16.0); LYMPHOCYTES # (AUTO) 0.9 X 10^3 (1.0-4.0); LYMPHOCYTES % (AUTO) 5 % (12-44); MEAN CORPUSCULAR HEMOGLOBIN 29 PG (25-34); MEAN CORPUSCULAR HGB CONC 36 G/DL (32-36); MEAN CORPUSCULAR VOLUME 82 FL (80-99); MEAN PLATELET VOLUME 9.2 FL (7.4-10.4); MONOCYTES # (AUTO) 0.7 X 10^3 (0.0-1.0); MONOCYTES % (AUTO) 4 % (0-12); NEUTROPHILS # (AUTO) 15.1 X 10^3 (1.8-7.8); NEUTROPHILS % (AUTO) 91 % (42-75); PLATELET COUNT 275 10^3/uL (130-400); RED CELL DISTRIBUTION WIDTH 13.5 % (10.0-14.5); WHITE BLOOD COUNT 16.6 10^3/uL (4.3-11.0)
[2020-01-14 06:17] LABS: ALBUMIN 3.9 GM/DL (3.2-4.5); BILIRUBIN,TOTAL 0.4 MG/DL (0.1-1.0); CALCIUM 9.3 MG/DL (8.5-10.1); CREATININE SERUM 1.19 MG/DL (0.60-1.30); MAGNESIUM 1.8 MG/DL (1.6-2.4); PHOSPHORUS 3.2 MG/DL (2.3-4.7); POTASSIUM 3.8 MMOL/L (3.6-5.0)
[2020-01-14] MEDS ORDERED: POTASSIUM CL 10MEQ/50ML IVPB 50 ML IV ONE (06:17)
[2020-01-14] MEDS ORDERED: 1/2 NS IV SOLUTION 1,000 ML IV ONE (06:17)
[2020-01-14] MEDS ORDERED: NS IV 1000 ML 1,000 ML ONE (06:17)
[2020-01-14] MEDS ORDERED: D5 1/2 NS 1000 ML IV SOLUTION 1,000 ML IV ONE (06:18)
[2020-01-14] MEDS ORDERED: NS IV 1000 ML 1,000 ML IV SCH (06:34)
[2020-01-14] MEDS ORDERED: NORMAL SALINE 250 ML ONE (06:34)
[2020-01-14] MEDS ORDERED: inSUlin (REGULAR) HUMAN 1 UNIT/0.01 ML (CHARGE PER UNIT) ONE (06:34)
[2020-01-14] MEDS: POTASSIUM CL 10MEQ/50ML IVPB 50 ML IV SCH ×10 (06:44→22:00)
[2020-01-14] MEDS ORDERED: inSUlin REGULAR TPN/DRIP ONLY 250 UNITS in NORMAL SALINE 250 ML IV SCH (06:45)
[2020-01-14] MEDS: 1/2 NS IV SOLUTION 1,000 ML IV SCH ×5 (06:48→22:46)
[2020-01-14 06:51] LABS: BAND NEUTROPHILS 6 %; EOSINOPHILS % (MANUAL) 1 %; LYMPHOCYTES % (MANUAL) 4 %; MONOCYTES % (MANUAL) 4 %; NEUTROPHILS % (MANUAL) 84 %; PROLYMPHOCYTE % 1 %; RBC MORPH NORMAL
[2020-01-14 08:32] LABS: CALCIUM 8.9 MG/DL (8.5-10.1); CREATININE SERUM 1.12 MG/DL (0.60-1.30); POTASSIUM 3.6 MMOL/L (3.6-5.0)
[2020-01-14 08:56] LABS: ABG BASE EXCESS -14.1 MMOL/L (-2.5-2.5); ABG OXYGEN SATURATION 98 % (94-100); ABG PCO2 29 MMHG (35-45); ABG PO2 115 MMHG (79-93); ABG TCO2 12.8 MMOL/L (21.0-31.0)
[2020-01-14] MEDS ORDERED: ENOXAPARIN 40 MG/0.4 ML (LOVENOX) SYR SC SCH (09:00)
[2020-01-14 09:02] LABS: ABG PH 7.24 (7.37-7.43); ALLENS TEST YES-POS; INSPIRED O2 ROOM AIR; VENTILATOR NO
[2020-01-14 09:03] LABS: PATIENT TEMP 36.7
[2020-01-14] MEDS: D5 1/2 NS 1000 ML IV SOLUTION 1,000 ML IV SCH ×3 (09:05→20:03)
[2020-01-14] MEDS ORDERED: cefTRIAXone FOR IV USE 1,000 MG in WATER (STERILE) FOR INJECTION 10 ML IV NR (09:25)
[2020-01-14] MEDS ORDERED: hydrALAZINE (APESOLINE) 20 MG/ML VIAL IV NR (09:25)
[2020-01-14 10:22] LABS: OCCULT BLOOD,GASTRIC FLUID POSITIVE (NEGATIVE)
[2020-01-14 11:30] LABS: CALCIUM 8.8 MG/DL (8.5-10.1); CREATININE SERUM 1.1 MG/DL (0.60-1.30); POTASSIUM 3.5 MMOL/L (3.6-5.0)
--- NOTE | 2020-01-14 11:36 | NUR ---
PT C/O STABBING LEFT SIDED CHEST PAIN, DR ROY INFORMED, EKG OBTAINED.
[2020-01-14] MEDS ORDERED: NITROGLYCERIN 2% OINT 1 GM UNIT DOSE PACKET TOP PRN (11:45)
--- NOTE | 2020-01-14 11:52 | History & Physical ---
NELDA HUSTON,MED STUDENT 01/14/20 1152: HPI History of Present Illness: Loida Jeff is a 65 year old female who was admitted from [facility] for DKA. She states that she started feeling sick last (01/10/20) with nausea, vomiting and weakness. She states that she thought she was detoxing from her ativan. She states that she called the ER and was told to come in. She reports that she has not taken her insulin in about a month, and has not had a meal since . This morning during exam she is feeling nauseous and is gagging intermittently. Blood pressure is elevated in the 180s. She also admits to heartburn, brown vomit, decreased urine output, dark stools and diarrhea. Source: patient Exam Limitations: no limitations Date seen by provider: Jan 14, 2020 Time Seen by Provider: 09:00 Attending Physician Shamika Merritt MD PCP Reji Roy MD Consult Date of Admission Jan 14, 2020 at 04:36 Home Medications Home Medications Reviewed patient Home Medication Reconciliation performed by pharmacy medication reconciliations electronic communications technician and/or nursing. Patients Allergies have been reviewed. Allergies Coded Allergies: morphine (Verified Adverse Reaction, Mild, NAUSEA, 05/19/16) [id number] Hx Patient Social History Alcohol Use: Past History (states she quit 2 years ago) Drug of Choice: PT DENIES Smoking Status: Current Everyday Smoker (states she quit a few days ago) Type Used: Cigarettes 2nd Hand Smoke Exposure: Yes Recent Foreign Travel: No Contact w/other who traveled: No Recent Hopitalizations: No Immunizations Up To Date Tetanus Booster (TDap): Less than 5yrs Date of Pneumonia Vaccine: Jul 31, 2019 Date of Influenza Vaccine: Jul 31, 2019 Past Medical History IDDM HTN COPD Tobacco USE Arthritis GERD Dementia Psoriasis Anxiety Depression Alcohol Abuse Medical Noncompliance Frequent Falls Family Medical History Family History: AIDS Alcoholism Arthritis Asthma Cataracts Coronary thrombosis Diabetes mellitus Drug abuse Glaucoma Psychosocial problem Respiratory disorder No Family History of: Sadiq's disease Alzheimer's disease Aphasia Cancer of mouth Cardiovascular disease Colon cancer Completed stroke Congenital disease Congenital heart disease Cystic fibrosis Deafness or hearing loss Dementia Dysphasia Fibrocystic disease of breast Gastroenteritis Headache disorder Hypercholesterolemia Hypertension Infertility Kidney disease Myocardial infarction Neoplasm Not obtainable due to adoption Osteoporosis Parkinson's disease Prostate cancer Seizure disorder Severe allergy Thyroid disease Tuberculosis Visual disorder Review of Systems ([facility]) Constitutional: dizziness, fever (subjective), malaise, weakness EENTM: No blurred vision, No double vision, No vision loss, No nose congestion, No throat pain Respiratory: cough, dyspnea on exertion; No short of breath, No wheezing Cardiovascular: No chest pain; edema; No palpitations Gastrointestinal: No abdominal pain; diarrhea, heartburn, melena, nausea, vomiting Genitourinary: decreased output, dysuria; No hematuria; hesitancy Musculoskeletal: No joint pain, No muscle pain Skin: No change in color, No lesions, No rash Psychiatric/Neurological: Anxiety; Denies Numbness, Denies Tingling Other Endocrine: admits to excessive thirst, denies hot or cold intolerance Physical Exam-([facility]) Physical Exam Vital Signs VS - Last 72 Hours, by Label 01/14/20 01/14/20 01/14/20 01/14/20 04:58 05:00 05:02 05:23 Temp 37.4 Pulse 65 67 58 Resp 16 22 B/P (MAP) 136/67 (90) 114/69 (84) Pulse Ox 97 92 97 O2 Delivery Room Air Room Air Room Air 01/14/20 01/14/20 01/14/20 01/14/20 05:30 05:45 06:00 06:15 Pulse 75 78 80 80 Resp 18 15 18 16 B/P (MAP) 185/81 (115) 175/79 (111) 170/82 (111) 170/77 (108) Pulse Ox 95 97 94 95 O2 Delivery Room Air Room Air Room Air Room Air 01/14/20 01/14/20 01/14/20 01/14/20 06:30 06:45 07:00 07:00 Pulse 85 82 84 91 Resp 24 15 16 B/P (MAP) 185/80 (115) 166/96 (119) 163/77 (105) Pulse Ox 96 96 96 O2 Delivery Room Air Room Air Room Air 01/14/20 01/14/20 01/14/20 01/14/20 07:07 08:00 08:00 09:00 Temp 37.0 Pulse 85 86 Resp 13 B/P (MAP) 178/81 (113) 186/79 (114) Pulse Ox 97 97 O2 Delivery Room Air Room Air Room Air 01/14/20 01/14/2001/13/20 10:00 11:00 11:10 Temp 37.4 Pulse 87 84 Resp 16 19 B/P (MAP) 168/78 (108) 176/77 (110) Pulse Ox 95 95 O2 Delivery Room Air Room Air Capillary Refill : Less Than 3 Seconds General Appearance: mild distress Eyes: Bilateral Eye PERRL, Bilateral Eye EOMI HEENT: No scleral icterus (R), No scleral icterus (L) Neck: non-tender, full range of motion; No lymphadenopathy (R), No lymphadenopathy (L) Respiratory: lungs clear, no respiratory distress, no accessory muscle use Cardiovascular: normal peripheral pulses, regular rate, rhythm, no murmur Gastrointestinal: non tender, soft; No distended Extremities: pedal edema (trace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: no motor/sensory deficits, alert Skin: normal color, warm/dry Assessment/Plan Assessment/Plan Assessment & Plan 1) DKA with anion gap metabolic acidosis -anion gap down to 19 this morning, pH 7.24 and bicarb 12 -continue insulin drip, fluid, dextrose and potassium 2) Hypertension -IV hydralazine and nitroglycerin given, EKG performed and did not show any ST elevations, troponins pending 3) Urinary Retention -place esteban catheter, started ceftriaxone 4) r/o PUD/upper GI bleed -emesis was positive for occult blood, will consult surgery for possible endoscopy -start IV protonix BID Clinical Quality Measures DVT/VTE Risk/Contraindication: Risk Factor Score Per Nursin RFS Level Per Nursing on Admit: 4+=Very High REJI ROY MD 01/14/20 8965: HPI History of Present Illness: Reviewed above HPI with patient and agree with above documentation. In addition Patient states that she stopped taking all her medications about 1 month ago because she ran out and never got refills. States that she has been having coffee ground emesis for the last week. States that she has not drank any EtOH in the last 2 years. Denies any sick contacts. Source: patient Exam Limitations: no limitations Home Medications Allergies Coded Allergies: morphine (Verified Adverse Reaction, Mild, NAUSEA, 05/19/16) [id number] Hx Patient Social History Living Status: Lives alone in independent living facility Family Medical History Family History: AIDS Alcoholism Arthritis Asthma Cataracts Coronary thrombosis Diabetes mellitus Drug abuse Glaucoma Psychosocial problem Respiratory disorder No Family History of: [place]'s disease Alzheimer's disease Aphasia Cancer of mouth Cardiovascular disease Colon cancer Completed stroke Congenital disease Congenital heart disease Cystic fibrosis Deafness or hearing loss Dementia Dysphasia Fibrocystic disease of breast Gastroenteritis Headache disorder Hypercholesterolemia Hypertension Infertility Kidney disease Myocardial infarction Neoplasm Not obtainable due to adoption Osteoporosis Parkinson's disease Prostate cancer Seizure disorder Severe allergy Thyroid disease Tuberculosis Visual disorder Review of Systems ([facility]) Constitutional: dizziness, fever (subjective), malaise, weakness EENTM: no symptoms reported Respiratory: cough, dyspnea on exertion; No short of breath, No wheezing Cardiovascular: chest pain, edema; No palpitations Gastrointestinal: diarrhea, hematemesis, heartburn, loss of appetite, nausea, vomiting Genitourinary: decreased output, dysuria, frequency; No hematuria; hesitancy : No Musculoskeletal: no symptoms reported Skin: no symptoms reported; No lesions, No rash Psychiatric/Neurological: Anxiety, Depressed; Denies Headache, Denies Numbness; Weakness Reviewed Test Results Reviewed Test Results Lab Laboratory Tests Test 01/14/20 04:45 01/14/20 04:51 01/14/20 05:15 01/14/20 05:40 Range/Units Urine Color YELLOW Urine Clarity SL CLOUDY Urine pH 5.5 5-9 Urine Specific Cold[place] >=1.030 1.016-1.022 Urine Protein 2+ H NEGATIVE Urine Glucose (UA) 3+ H NEGATIVE Urine Ketones 3+ H NEGATIVE Urine Nitrite NEGATIVE NEGATIVE Urine Bilirubin NEGATIVE NEGATIVE Urine Urobilinogen 0.2 < = 1.0 MG/DL Urine Leukocyte Esterase NEGATIVE NEGATIVE Urine RBC (Auto) 1+ H NEGATIVE Urine RBC 2-5 H /HPF Urine WBC NONE /HPF Urine Squamous Epithelial Cells 2-5 /HPF Urine Crystals NONE /LPF Urine Bacteria TRACE /HPF Urine Casts PRESENT /LPF Urine Hyaline Casts RARE /LPF Urine Mucus NEGATIVE /LPF Urine Culture Indicated NO Urine Opiates Screen NEGATIVE NEGATIVE Urine Oxycodone Screen NEGATIVE NEGATIVE Urine Methadone Screen NEGATIVE NEGATIVE Urine Propoxyphene Screen NEGATIVE NEGATIVE Urine Barbiturates Screen NEGATIVE NEGATIVE Ur Tricyclic Antidepressants Screen NEGATIVE NEGATIVE Urine Phencyclidine Screen NEGATIVE NEGATIVE Urine Amphetamines Screen NEGATIVE NEGATIVE Urine Methamphetamines Screen NEGATIVE NEGATIVE Urine Benzodiazepines Screen NEGATIVE NEGATIVE Urine Cocaine Screen NEGATIVE NEGATIVE Urine Cannabinoids Screen NEGATIVE NEGATIVE Glucometer 248 H 70-110 MG/DL Lactic Acid Level 1.70 0.50-2.00 MMOL/L White Blood Count 16.6 H 4.3-11.0 10^3/uL Red Blood Count 6.09 H 4.35-5.85 10^6/uL Hemoglobin 17.8 H 11.5-16.0 G/DL Hematocrit 50 35-52 % Mean Corpuscular Volume 82 80-99 FL Mean Corpuscular Hemoglobin 29 25-34 PG Mean Corpuscular Hemoglobin Concent 36 32-36 G/DL Red Cell Distribution Width 13.5 10.0-14.5 % Platelet Count 275 130-400 10^3/uL Mean Platelet Volume 9.2 7.4-10.4 FL Neutrophils (%) (Auto) 91 H 42-75 % Lymphocytes (%) (Auto) 5 L 12-44 % Monocytes (%) (Auto) 4 0-12 % Eosinophils (%) (Auto) 0 0-10 % Basophils (%) (Auto) 0 0-10 % Neutrophils # (Auto) 15.1 H 1.8-7.8 X 10^3 Lymphocytes # (Auto) 0.9 L 1.0-4.0 X 10^3 Monocytes # (Auto) 0.7 0.0-1.0 X 10^3 Eosinophils # (Auto) 0.0 0.0-0.3 10^3/uL Basophils # (Auto) 0.0 0.0-0.1 10^3/uL Neutrophils % (Manual) 84 % Lymphocytes % (Manual) 4 % Prolymphocyte % 1 % Monocytes % (Manual) 4 % Eosinophils % (Manual) 1 % Band Neutrophils 6 % Blood Morphology Comment NORMAL Sodium Level 130 L 135-145 MMOL/L Potassium Level 3.8 3.6-5.0 MMOL/L Chloride Level 96 L 98-107 MMOL/L Carbon Dioxide Level 11 L 21-32 MMOL/L Anion Gap 23 H 5-14 MMOL/L Blood Urea Nitrogen 17 7-18 MG/DL Creatinine 1.19 0.60-1.30 MG/DL Estimat Glomerular Filtration Rate 45 BUN/Creatinine Ratio 14 Glucose Level 278 H 70-105 MG/DL Calcium Level 9.3 8.5-10.1 MG/DL Corrected Calcium 9.4 8.5-10.1 MG/DL Phosphorus Level 3.2 2.3-4.7 MG/DL Magnesium Level 1.8 1.6-2.4 MG/DL Total Bilirubin 0.4 0.1-1.0 MG/DL Aspartate Amino Transf (AST/SGOT) 13 5-34 U/L Alanine Aminotransferase (ALT/SGPT) 10 0-55 U/L Alkaline Phosphatase 149 H 40-136 U/L B-Type Natriuretic Peptide 40.6 <100.0 PG/ML Total Protein 7.0 6.4-8.2 GM/DL Albumin 3.9 3.2-4.5 GM/DL Beta-Hydroxybutyrate (Chem panel) 6.88 H 0.00-0.27 MMOL/L Procalcitonin 0.06 <0.10 NG/ML Test 01/14/20 06:27 01/14/20 07:57 01/14/20 08:09 01/14/20 08:45 Range/Units Glucometer 289 H 256 H 70-110 MG/DL Sodium Level 131 L 135-145 MMOL/L Potassium Level 3.6 3.6-5.0 MMOL/L Chloride Level 100 98-107 MMOL/L Carbon Dioxide Level 12 L 21-32 MMOL/L Anion Gap 19 H 5-14 MMOL/L Blood Urea Nitrogen 17 7-18 MG/DL Creatinine 1.12 0.60-1.30 MG/DL Estimat Glomerular Filtration Rate 49 BUN/Creatinine Ratio 15 Glucose Level 277 H 70-105 MG/DL Calcium Level 8.9 8.5-10.1 MG/DL Blood Gas Puncture Site R RAD Blood Gas Patient Temperature 36.7 Arterial Blood pH 7.24 *L 7.37-7.43 Arterial Blood Partial Pressure CO2 29 L 35-45 MMHG Arterial Blood Partial Pressure O2 115 H 79-93 MMHG Arterial Blood HCO3 12 *L 23-27 MMOL/L Arterial Blood Total CO2 12.8 L 21.0-31.0 MMOL/L Arterial Blood Oxygen Saturation 98 94-100 % Arterial Blood Base Excess -14.1 L -2.5-2.5 MMOL/L Pavan Test YES-POS Blood Gas Ventilator Setting NO Blood Gas Inspired Oxygen ROOM AIR Test 01/14/20 08:58 01/14/20 09:57 01/14/20 10:00 01/14/20 11:00 Range/Units Glucometer 242 H 274 H 228 H 70-110 MG/DL Gastric Fluid Occult Blood POSITIVE H NEGATIVE Test 01/14/20 11:05 01/14/20 11:58 01/14/20 13:02 01/14/20 13:58 Range/Units Sodium Level 130 L 135-145 MMOL/L Potassium Level 3.5 L 3.6-5.0 MMOL/L Chloride Level 103 98-107 MMOL/L Carbon Dioxide Level 12 L 21-32 MMOL/L Anion Gap 15 H 5-14 MMOL/L Blood Urea Nitrogen 17 7-18 MG/DL Creatinine 1.10 0.60-1.30 MG/DL Estimat Glomerular Filtration Rate 50 BUN/Creatinine Ratio 15 Glucose Level 241 H 70-105 MG/DL Calcium Level 8.8 8.5-10.1 MG/DL Troponin I < 0.028 <0.028 NG/ML Glucometer 279 H 153 H 202 H 70-110 MG/DL Test 01/14/20 14:53 01/14/20 15:05 01/14/20 15:49 01/14/20 16:55 Range/Units Glucometer 178 H 171 H 190 H 70-110 MG/DL Sodium Level 131 L 135-145 MMOL/L Potassium Level 3.2 L 3.6-5.0 MMOL/L Chloride Level 102 98-107 MMOL/L Carbon Dioxide Level 18 L 21-32 MMOL/L Anion Gap 11 5-14 MMOL/L Blood Urea Nitrogen 15 7-18 MG/DL Creatinine 1.14 0.60-1.30 MG/DL Estimat Glomerular Filtration Rate 48 BUN/Creatinine Ratio 13 Glucose Level 171 H 70-105 MG/DL Calcium Level 8.8 8.5-10.1 MG/DL Troponin I < 0.028 <0.028 NG/ML Test 01/14/20 17:39 Range/Units Glucometer 179 H 70-110 MG/DL Physical Exam-([facility]) Physical Exam General Appearance: WD/WN, no apparent distress HEENT: PERRL/EOMI, scleral icterus (R), scleral icterus (L) Neck: non-tender, full range of motion Respiratory: chest non-tender, lungs clear, normal breath sounds, no respiratory distress, no accessory muscle use Cardiovascular: normal peripheral pulses, regular rate, rhythm, no murmur Gastrointestinal: non tender, soft; No distended, No tenderness Extremities: normal range of motion, non-tender, normal inspection, no calf tenderness, normal capillary refill, pedal edema (trace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: automatic wheel line operator II-XII nml as tested, no motor/sensory deficits, alert Skin: normal color, warm/dry Lymphatic: no adenopathy Assessment/Plan Assessment/Plan Admission Status: Inpatient Order (span 2 midnights) Reason for Inpatient Admission: Patient needing ICU care with IV antibiotics and insulin gtts (1) DKA (diabetic ketoacidoses) Status: Acute Assessment & Plan: - Patient on Insulin gtts, Accuchecks hourly, A1c pending, will transition to subcutaneous insulin in AM Qualifiers: Qualified Codes: E11.10 - Type 2 diabetes mellitus with ketoacidosis without coma (2) Hematemesis Status: Acute Assessment & Plan: - Consult Dr Castanon, appreciate recommendations, vomit positive for blood, patient with long h/o EtOH use, stopped 2 years ago, Started on protonix IV BID Qualifiers: Qualified Codes: K92.0 - Hematemesis (3) Uncontrolled diabetes mellitus Status: Chronic Qualifiers: (4) Hyponatremia Status: Acute Assessment & Plan: - Likely hypovolemic hyponatremia, will focus on hydration, Esteban placed for accurate I/Os (5) Atypical chest pain Status: Acute Assessment & Plan: - ECG with irregular rate, Trop neg (6) Hypertension Status: Chronic Assessment & Plan: - Will restart home meds Qualifiers: Qualified Codes: I10 - Essential (primary) hypertension (7) Altered mental status Status: Resolved (8) Depression Status: Chronic Assessment & Plan: - Restart Buspirone, holding wellbutrin since patient has been off and is currently hypertensive Qualifiers: Qualified Codes: F33.1 - Major depressive disorder, recurrent, moderate (9) Hypokalemia Status: Acute Assessment & Plan: - Replace and recheck (10) DVT prophylaxis Status: Acute Assessment & Plan: - SCDs 2/2 to concerns for UGI bleeding Supervisory-Addendum Brief Verification & Attestation Participated in pt care: history Personally performed: exam Care discussed with: Medical Student Procedures: n/a Results interpretation: Verified all documentation Verification and Attestation of Medical Student E/M Service A medical student performed and documented this service in my presence. I reviewed and verified all information documented by the medical student and made modifications to such information, when appropriate. I personally performed the physical exam and medical decision making. Reji Roy, Jan 14, 2020,18:50 NELDA HUSTON,MED STUDENT Jan 14, 2020 11:52 REJI ROY MD Jan 14, 2020 18:45
--- NOTE | 2020-01-14 12:05 | NUR ---
DR LARSON INFORMED OF CONSULT.
--- NOTE | 2020-01-14 12:44 | NUR ---
Pt is [facility]. Cartography/Mapping Technician provided prayer and Communion.
[2020-01-14] MEDS: PANTOPRAZOLE 40 MG (PROTONIX) VIAL IV SCH ×2 (13:11→20:03)
--- NOTE | 2020-01-14 13:36 | NUR ---
PT'S BP 180S/80S, DR ROY NOTIFIED.
--- NOTE | 2020-01-14 13:45 | NUR ---
SPOKE WITH THE PT, WENT THRU THE EXT MED HISTORY, CALLED [facility] TO COMPLETE THE MED REC. WHEN SPEAKING WITH THE PT SHE INDICATED SHE WAS ON A LOT OF MEDS BUT WHEN I STARTED GOING THRU THE EXT MED HISTORY THERE WAS NO CURRENT MEDS. THE PT ADMITTED SHE HAD BEEN OUT OF MEDS FOR AT LEAST 1 MONTH AND POSSIBLY LONGER. FOR THIS REASON I DID NO INCLUDE ANYTHING ON THE MED REC. 09-11-2019 NOVOLOG (16 UNITS TID AFTER MEALS) AND TRESIBA(60 UNITS HS) WERE BOTH DISPENSED 30 DAY SUPPLIES- THESE ALSO WERE LEFT OFF THE MED REC SHE ALSO SAID SHE ISNT TAKING OTC MEDS
[2020-01-14 15:34] LABS: BUN/CREATININE RATIO 13; CALCIUM 8.8 MG/DL (8.5-10.1); CARBON DIOXIDE 18 MMOL/L (21-32); CHLORIDE 102 MMOL/L (98-107); CREATININE SERUM 1.14 MG/DL (0.60-1.30); GFR ESTIMATED 48; GLUCOSE 171 MG/DL (70-105); POTASSIUM 3.2 MMOL/L (3.6-5.0); SODIUM 131 MMOL/L (135-145)
--- NOTE | 2020-01-14 15:48 | NUR ---
DR ROY UPDATED ON PTS LAB RESULTS.
--- NOTE | 2020-01-14 16:06 | NUR ---
PT HYPERTENSIVE, DR ROY INFORMED.
[2020-01-14] MEDS ORDERED: KCL 20 MEQ TAB (K-DUR) PO NR (17:00)
--- NOTE | 2020-01-14 17:00 | NUR ---
THIS RN SPOKE W/ DR ROY REGARDING PT'S BP AND LABS. NEW ORDERS RECEIVED.
[2020-01-14] MEDS: amLODIPine 5 MG (NORVASC) TAB PO SCH (17:11)
--- NOTE | 2020-01-14 17:48 | CONSULTATION REPORT ---
DATE OF SERVICE: ADMITTING PRIMARY CARE PHYSICIAN: Dr. Mendes. HISTORY OF PRESENT ILLNESS: The patient is a 65-year-old female admitted for confusion, nausea and vomiting and diabetic ketoacidosis. Since being admitted and placed on IV fluids and insulin drip, she has slowly improved. Her history of reports that she has had multiple episodes of nausea and vomiting and some of this did have coffee ground emesis. She did have an EGD and colonoscopy by us approximately 2 years ago and was found to have a reflux esophagitis, which was a stage II as well as a mild to moderate gastritis; however, no formal ulcerations or any potential bleeding sources. She does not report any red blood per rectum nor any dark tarry stools. She was also found to be anemic on this admission. PAST MEDICAL HISTORY: Diabetes, hypertension, hypercholesterolemia, gastroesophageal reflux disease. PAST SURGICAL HISTORY: Laparoscopic cholecystectomy, hysterectomy, incisional hernia repair. ALLERGIES: MORPHINE. MEDICATIONS: Buspirone 10 mg daily, amlodipine 10 mg daily, Protonix 40 mg daily. SOCIAL HISTORY: Previous alcohol, quit 2 years ago. Intermittent smoking. LABORATORY DATA: WBC 16.6, hemoglobin 17.9, hematocrit 50, platelets 275. BUN 15, creatinine 1.14, glucose 190. ASSESSMENT AND PLAN: A 65-year-old female with nausea, vomiting, diabetic ketoacidosis and coffee ground emesis versus hematemesis; however, this has been unwitnessed. Due to her symptomatology, we will proceed with an EGD as well as biopsies as appropriate on this admission. Job ID: [id number] DocumentID: [id number] Dictated Date: 01/14/2020 17:38:55 Supervisor Records Change Date: 01/14/2020 17:48:38 Dictated By: PATRICA LARSON MD
[2020-01-14] MEDS: busPIRone 10 MG (BUSPAR) TAB PO SCH (20:03)
[2020-01-14] MEDS: MICONAZOLE 2% POWDER (DESENEX AF) 90 GM TOP SCH (20:07)
[2020-01-14 20:35] LABS: BUN/CREATININE RATIO 13; CALCIUM 8.7 MG/DL (8.5-10.1); CARBON DIOXIDE 18 MMOL/L (21-32); CHLORIDE 106 MMOL/L (98-107); GFR ESTIMATED > 60; GLUCOSE 137 MG/DL (70-105); POTASSIUM 3.4 MMOL/L (3.6-5.0); SODIUM 133 MMOL/L (135-145)
[2020-01-14] MEDS: PROMETHAZINE INJ 25 MG/ML (PHENERGAN) AMP IVP PRN (22:38)
[2020-01-15] VITALS (16 sets, daily range): BP systolic 130–196; BP diastolic 61–95
[2020-01-15] MEDS: POTASSIUM CL 10MEQ/50ML IVPB 50 ML IV SCH ×5 (00:41→08:59)
[2020-01-15] MEDS: D5 1/2 NS 1000 ML IV SOLUTION 1,000 ML IV SCH ×2 (00:41→05:00)
--- NOTE | 2020-01-15 01:12 | NUR ---
CALLED [facility] AND INFORMED THEM THAT PATIENT'S BLOOD PRESSURE HAS CONTINUED TO INCREASE OVER THE COURSE OF THE EVENING AND IS CURRENTLY 196/89 WITH HEART RATE OF 77. RECEIVED ORDER FOR LABATALOL 10MG IV PRN Q6 FOR SBP ABOVE 160 AND HOLD FOR HEART RATE BELOW 70. WILL CONTINUE TO MONITOR.
[2020-01-15] MEDS ORDERED: LABETALOL HCL 20 MG/4 ML VIAL ONE (01:22)
[2020-01-15 01:25] LABS: BUN/CREATININE RATIO 12; CALCIUM 8.5 MG/DL (8.5-10.1); CARBON DIOXIDE 14 MMOL/L (21-32); CHLORIDE 108 MMOL/L (98-107); CREATININE SERUM 0.85 MG/DL (0.60-1.30); GFR ESTIMATED > 60; GLUCOSE 177 MG/DL (70-105); POTASSIUM 3.8 MMOL/L (3.6-5.0); SODIUM 133 MMOL/L (135-145)
[2020-01-15] MEDS ORDERED: LABETALOL HCL 20 MG/4 ML VIAL IV PRN (01:45)
[2020-01-15] MEDS: 1/2 NS IV SOLUTION 1,000 ML IV SCH ×2 (03:09→07:00)
[2020-01-15 04:20] LABS: BASOPHILS % (AUTO) 0 % (0-10); EOSINOPHILS # (AUTO) 0.1 10^3/uL (0.0-0.3); EOSINOPHILS % (AUTO) 0 % (0-10); HEMATOCRIT 43 % (35-52); HEMOGLOBIN 15.4 G/DL (11.5-16.0); LYMPHOCYTES # (AUTO) 1.4 X 10^3 (1.0-4.0); LYMPHOCYTES % (AUTO) 11 % (12-44); MEAN CORPUSCULAR HEMOGLOBIN 30 PG (25-34); MEAN CORPUSCULAR HGB CONC 36 G/DL (32-36); MEAN CORPUSCULAR VOLUME 82 FL (80-99); MEAN PLATELET VOLUME 8.8 FL (7.4-10.4); MONOCYTES # (AUTO) 1.3 X 10^3 (0.0-1.0); MONOCYTES % (AUTO) 10 % (0-12); NEUTROPHILS # (AUTO) 10.6 X 10^3 (1.8-7.8); NEUTROPHILS % (AUTO) 79 % (42-75); PLATELET COUNT 244 10^3/uL (130-400); RED CELL DISTRIBUTION WIDTH 13.6 % (10.0-14.5); WHITE BLOOD COUNT 13.4 10^3/uL (4.3-11.0)
[2020-01-15 04:35] LABS: BUN/CREATININE RATIO 11; CALCIUM 8.3 MG/DL (8.5-10.1); CARBON DIOXIDE 18 MMOL/L (21-32); CHLORIDE 108 MMOL/L (98-107); CREATININE SERUM 0.81 MG/DL (0.60-1.30); GFR ESTIMATED > 60; GLUCOSE 187 MG/DL (70-105); MAGNESIUM 1.7 MG/DL (1.6-2.4); POTASSIUM 3.4 MMOL/L (3.6-5.0); SODIUM 134 MMOL/L (135-145)
[2020-01-15 04:55] LABS: PHOSPHORUS 0.9 MG/DL (2.3-4.7)
[2020-01-15] MEDS ORDERED: POT PHOS/NA PHOS (K-PHOS NEUTRAL) PO ONE (05:30)
--- NOTE | 2020-01-15 05:30 | Pulmonary Progress Note ---
Subjective Time Seen by a Provider: 05:28 Subjective/Events-last exam Pt feels improved. SHe is still on DKA protocol Sepsis Event Evaluation Height, Weight, BMI Height: 5'65.00" Weight: 252lbs. 14.0oz. 114.884484rr; 39.22 BMI Method:Stated Focused Exam Lactate Level 01/14/20 05:15: Lactic Acid Level 1.70 Exam Exam Vital Signs Date Time Temp Pulse Resp B/P (MAP) Pulse Ox O2 Delivery O2 Flow Rate FiO2 01/15/20 05:00 79 17 181/84 (116) 97 Room Air 01/15/20 04:02 73 15 137/71 (93) 97 Room Air 01/15/20 04:00 96 Room Air 01/15/20 03:00 71 19 162/90 (114) 95 Room Air 01/15/20 02:00 75 16 146/90 (108) 96 Room Air 01/15/20 01:06 79 17 196/89 (124) 96 Room Air 01/15/20 01:00 80 01/15/20 00:06 79 11 189/95 (126) 97 Room Air 01/15/20 00:00 97 Room Air 01/15/20 00:00 37.2 01/14/20 23:00 78 18 173/86 (115) 95 Room Air 01/14/20 22:00 79 12 174/84 (114) 95 Room Air 01/14/20 21:00 80 20 176/85 (115) 95 Room Air 01/14/20 20:03 82 25 139/80 (99) 97 Room Air 01/14/20 20:00 96 Room Air 01/14/20 20:00 37.4 01/14/20 19:12 84 15 168/77 (107) 97 Room Air 01/14/20 19:00 81 14 215/113 (147) 96 Room Air 01/14/20 19:00 81 01/14/20 18:00 81 13 184/84 (117) 96 Room Air 01/14/20 17:00 85 8 195/90 (125) 97 Room Air 01/14/20 16:00 37.0 01/14/20 16:00 84 13 192/103 (132) 97 Room Air 01/14/20 15:38 Room Air 01/14/20 15:00 83 9 188/82 (117) 94 Room Air 01/14/20 14:00 85 16 186/85 (118) 96 Room Air 01/14/20 13:00 85 16 186/85 (118) 96 Room Air 01/14/20 12:06 92 01/14/20 12:00 Room Air 01/14/20 12:00 78 19 142/57 (85) 97 Room Air 01/14/20 11:10 37.4 01/14/20 11:00 84 19 176/77 (110) 95 Room Air 01/14/20 10:00 87 16 168/78 (108) 95 Room Air 01/14/20 09:00 86 13 186/79 (114) 97 Room Air 01/14/20 08:00 Room Air 01/14/20 08:00 85 178/81 (113) 97 Room Air 01/14/20 07:07 37.0 01/14/20 07:00 91 01/14/20 07:00 84 16 163/77 (105) 96 Room Air 01/14/20 06:45 82 15 166/96 (119) 96 Room Air 01/14/20 06:30 85 24 185/80 (115) 96 Room Air 01/14/20 06:15 80 16 170/77 (108) 95 Room Air 01/14/20 06:00 80 18 170/82 (111) 94 Room Air 01/14/20 05:45 78 15 175/79 (111) 97 Room Air 01/14/20 05:30 75 18 185/81 (115) 95 Room Air I & O 01/15/20 07:00 Intake Total 5585 ml Output Total 4075 ml Balance 1510 ml Height & Weight Height: 5'65.00" Weight: 252lbs. 14.0oz. 114.933046fh; 39.22 BMI Method:Stated General Appearance: No Apparent Distress, WD/WN, Anxious, Chronically ill, Obese HEENT: PERRL/EOMI, Normal ENT Inspection, Pharynx Normal Neck: Full Range of Motion, Normal Inspection, Non Tender, Supple Respiratory: Chest Non Tender, No Accessory Muscle Use, No Respiratory Distress, Decreased Breath Sounds Cardiovascular: Regular Rate, Rhythm, No Edema, No Gallop Capillary Refill: Less Than 3 Seconds Gastrointestinal: non tender, soft; No distended, No tenderness Extremity: Normal Capillary Refill, Normal Inspection, Normal Range of Motion, No Pedal Edema Neurologic/Psychiatric: Alert, Oriented x3 Skin: Normal Color, Warm/Dry Lymphatic: No Adenopathy Results Lab Laboratory Tests 01/14/20 05:40 01/14/20 08:09 01/14/20 11:05 01/14/20 15:05 01/14/20 20:00 01/15/20 00:37 01/15/20 03:52 Assessment/Plan Assessment/Plan Acute DKA with metabolic acidosis -DKA protocol -repeat urine ketones and beta hydroxybuterate ?upper Gi Bleed -Plan is for EGD this AM hx of COPD Tobacco dependance -education Diastolic CHF GANGA JEAN DO Jan 15, 2020 05:30
--- NOTE | 2020-01-15 05:32 | Diagnostic Imaging Report ---
Indication: Diabetic ketoacidosis Portable chest 5:00 AM Heart size and pulmonary vascularity are normal. Lungs are clear. There are no effusions or pneumothoraces. IMPRESSION: No acute abnormalities in the chest Dictated by: Dictated on workstation # [id number]
[2020-01-15] MEDS ORDERED: KCL 20 MEQ TAB (K-DUR) PO SCH (06:00)
[2020-01-15] MEDS ORDERED: MAGNESIUM 1 GM/100 ML IVPB 100 ML IV SCH (06:00)
[2020-01-15] MEDS ORDERED: POTASSIUM CL 10MEQ/50ML IVPB 50 ML IV SCH (06:00)
[2020-01-15] MEDS ORDERED: SODIUM PHOSPHATE INJ 15 MM in D5W 100 ML IVPB 100 ML IV ONE (06:45)
[2020-01-15] MEDS: MAGNESIUM 1 GM/100 ML IVPB 100 ML IV SCH ×2 (07:54→08:59)
[2020-01-15 08:28] LABS: BUN/CREATININE RATIO 9; CALCIUM 8.3 MG/DL (8.5-10.1); CARBON DIOXIDE 15 MMOL/L (21-32); CHLORIDE 108 MMOL/L (98-107); CREATININE SERUM 0.74 MG/DL (0.60-1.30); GFR ESTIMATED > 60; GLUCOSE 159 MG/DL (70-105); POTASSIUM 3.9 MMOL/L (3.6-5.0); SODIUM 131 MMOL/L (135-145)
[2020-01-15] MEDS: ONDANSETRON 4 MG/2 ML (SDV) Z0FRAN IVP PRN (08:38)
[2020-01-15] MEDS ORDERED: POTASSIUM PHOSPHATE INJ 30 MM in NS (IVPB) 250 ML IV ONE (09:00)
[2020-01-15] MEDS: amLODIPine 5 MG (NORVASC) TAB PO SCH (09:27)
[2020-01-15] MEDS: busPIRone 10 MG (BUSPAR) TAB PO SCH ×2 (09:27→20:48)
[2020-01-15] MEDS: PANTOPRAZOLE 40 MG (PROTONIX) VIAL IV SCH ×2 (09:27→20:48)
[2020-01-15] MEDS: MICONAZOLE 2% POWDER (DESENEX AF) 90 GM TOP SCH ×2 (09:28→20:53)
[2020-01-15] MEDS ORDERED: NS IV 1000 ML 1,000 ML IV SCH ×2 (10:00→11:00)
[2020-01-15] MEDS: PROMETHAZINE INJ 25 MG/ML (PHENERGAN) AMP IVP PRN (11:45)
[2020-01-15] MEDS: inSUlin ASPART (NovoLOG) 1 UNIT/0.01 ML (CHARGE PER UNIT) SC SCH ×3 (11:46→21:44)
[2020-01-15] MEDS ORDERED: HURRICAINE EXT TUBE (BENZOCAINE) ONE ×2 (12:51→12:52)
[2020-01-15] MEDS ORDERED: MIDAZOLAM 5 MG/5 ML (VERSED) VIAL ONE ×2 (12:52)
[2020-01-15] MEDS ORDERED: fentaNYL INJECTION 100 MCG/2 ML AMP ONE (12:52)
[2020-01-15] MEDS ORDERED: LIDOCAINE JELLY 2% 6 ML SYRINGE ONE (12:52)
--- NOTE | 2020-01-15 12:57 | Conscious Sedation/ASA ---
Conscious Sedation Pre-Proced Time 12:00 ASA Score 3 For ASA 3 and 4: Consider anesthesia and medical clearance. Also, for patients with a history of failed moderate sedation consider anesthesia. Airway Lungs Heart ASA score ASA 1: a normal healthy patient ASA 2: a patient with a mild systemic disease (mid diabetes, controlled hypertension, obesity ASA 3: a patient with a severe systemic disease that limits activity (angina, COPD, prior Myocardial infarction) ASA 4: a patient with an incapacitating disease that is a constant threat to life (CHF, renal failure) ASA 5: a moribund patient not expected to survive 24 hrs. (ruptured aneurysm) ASA 6: a declared brain- patient whose organs are being harvested. For emergent operations, add the letter E after the classification Mallampati Classification Grade 2 Sedation Plan Analgesia, Amnesia, Plan communicated to team members, Discussed options with patient/fam, Discussed risks with patient/fam The patient is an appropriate candidate to undergo the planned procedure, sedation, and anesthesia. The patient immediately re-assessed prior to indication. PATRICA LARSON MD Jan 15, 2020 12:57
--- NOTE | 2020-01-15 12:58 | Progress Note-Pre Operative ---
Pre-Operative Progress Note H&P Reviewed The H&P was reviewed, patient examined and no changes noted. Date Seen by Provider: Jan 15, 2020 Time Seen by Provider: 12:00 Date H&P Reviewed: Jan 15, 2020 Time H&P Reviewed: 12:00 Pre-Operative Diagnosis: hematamesis PATRICA LARSON MD Jan 15, 2020 12:58
[2020-01-15] MEDS: MIDAZOLAM 5 MG/5 ML (VERSED) VIAL IV PRN ×2 (13:12→13:14)
--- NOTE | 2020-01-15 13:53 | Progress Note-Post Operative ---
Post-Operative Progess Note Surgeon (s)/Benefits Manager (s) Surgeon PATRICA LARSON MD Benefits Manager: none Pre-Operative Diagnosis hematamesis Post-Operative Diagnosis esophageal candidiasis, reflux esophagitis(stage 3), small HH(1.5cm), moderate gastritis. Procedure & Operative Findings Date of Procedure 01/15/20 Procedure Performed/Findings EGD with bx and brushing Anesthesia Type cs Estimated Blood Loss Estimated blood loss (mL): minimal Specimens/Packing Specimens Removed antrum, ge jxn, distal esophagus PATRICA LARSON MD Jan 15, 2020 13:53
[2020-01-15] MEDS ORDERED: FLUCONAZOLE 200 MG/100 ML 100 ML IV NR (14:00)
[2020-01-15] MEDS ORDERED: LIDOCAINE JELLY 2% 6 ML SYRINGE MM PRN (14:45)
[2020-01-15] MEDS ORDERED: fentaNYL INJECTION 100 MCG/2 ML AMP IVP ONE (14:45)
[2020-01-15] MEDS ORDERED: HURRICAINE EXT TUBE (BENZOCAINE) XX ONE (15:00)
--- NOTE | 2020-01-15 15:57 | NUR ---
PT TO ROOM 407 VIA BED ACCOMPANIED BY THIS RN AND PCT. REPORT GIVEN TO Silvio PATTERSON RN PRIOR TO TRANSFER.
[2020-01-15] MEDS: SUCRALFATE 1 GM (CARAFATE) TAB PO SCH (20:48)
--- NOTE | 2020-01-15 21:09 | Progress Note ---
Subjective Subjective/Events-last exam Patient states that she feels much better this AM. Only occasional nausea no vomiting. EGD this AM. Pain improved. Review of Systems Pulmonary: No Dyspnea, No Cough Cardiovascular: No: Chest Pain, Palpitations Gastrointestinal: Nausea, Abdominal Pain; No: Vomiting Genitourinary: Frequency Neurological: Weakness Focused Exam Lactate Level 01/14/20 05:15: Lactic Acid Level 1.70 Objective Exam Last Set of Vital Signs Vital Signs Date Time Temp Pulse Resp B/P (MAP) Pulse Ox O2 Delivery O2 Flow Rate FiO2 01/15/20 16:00 36.5 74 17 161/74 (103) 99 Room Air Capillary Refill : Less Than 3 Seconds I&O Intake and Output 01/15/20 00:00 Intake Total 4485 ml Output Total 3100 ml Balance 1385 ml Intake Oral 725 ml IV Total 3760 ml Output Urine Total 3100 ml # Emeses 2 Daily Weight Change No General: Alert, Oriented X3, Cooperative, No Acute Distress Lungs: Clear to Auscultation, Normal Air Movement Heart: Regular Rate, No Murmurs Abdomen: Normal Bowel Sounds, Soft, Other (moderate epigastric pain to palpation, no rebound or gaurding) Extremities: No Edema, No Tenderness/Swelling Skin: No Rashes, No Breakdown Neuro: Normal Speech, Strength at 5/5 X4 Ext, Sensation Intact, Cranial Nerves 3-12 NL Psych/Mental Status: Other (Anxious) Results/Procedures Lab Laboratory Tests 01/14/20 21:49: Glucometer 171H 01/14/20 22:58: Glucometer 145H 01/15/20 00:03: Glucometer 178H 01/15/20 00:37: Sodium Level 133L, Potassium Level 3.8, Chloride Level 108H, Carbon Dioxide Level 14L, Anion Gap 11, Blood Urea Nitrogen 10, Creatinine 0.85, Estimat Glomerular Filtration Rate > 60, BUN/Creatinine Ratio 12, Glucose Level 177H, Calcium Level 8.5 01/15/20 01:05: Glucometer 172H 01/15/20 02:04: Glucometer 184H 01/15/20 03:05: Glucometer 190H 01/15/20 03:52: White Blood Count 13.4H, Red Blood Count 5.22, Hemoglobin 15.4, Hematocrit 43, Mean Corpuscular Volume 82, Mean Corpuscular Hemoglobin 30, Mean Corpuscular Hem oglobin Concent 36, Red Cell Distribution Width 13.6, Platelet Count 244, Mean Platelet Volume 8.8, Neutrophils (%) (Auto) 79H, Lymphocytes (%) (Auto) 11L, Monocytes (%) (Auto) 10, Eosinophils (%) (Auto) 0, Basophils (%) (Auto) 0, Neutrophils # (Auto) 10.6H, Lymphocytes # (Auto) 1.4, Monocytes # (Auto) 1.3H, Eosinophils # (Auto) 0.1, Basophils # (Auto) 0.0, Sodium Level 134L, Potassium Level 3.4L, Chloride Level 108H, Carbon Dioxide Level 18L, Anion Gap 8, Blood Urea Nitrogen 9, Creatinine 0.81, Estimat Glomerular Filtration Rate > 60, BUN/Creatinine Ratio 11, Glucose Level 187H, Calcium Level 8.3L, Phosphorus Level 0.9#*L, Magnesium Level 1.7, Beta-Hydroxybutyrate (Chem panel) 0.06 01/15/20 04:00: Glucometer 188H 01/15/20 05:24: Glucometer 155H 01/15/20 06:42: Glucometer 158H 01/15/20 08:03: Glucometer 162H 01/15/20 08:05: Sodium Level 131L, Potassium Level 3.9, Chloride Level 108H, Carbon Dioxide Level 15L, Anion Gap 8, Blood Urea Nitrogen 7, Creatinine 0.74, Estimat Glomer ular Filtration Rate > 60, BUN/Creatinine Ratio 9, Glucose Level 159H, Calcium Level 8.3L 01/15/20 08:57: Glucometer 176H 01/15/20 10:02: Glucometer 192H 01/15/20 11:22: Glucometer 212H 01/15/20 15:44: Glucometer 186H 01/15/20 20:28: Glucometer 240H Microbiology 01/14/20 Influenza Types A,B Antigen (LAXMI) - Final, Complete 01/14/20 Blood Culture - Preliminary, Resulted No growth Assessment/Plan Assessment/Plan Assessment & Plan 1) DKA with anion gap metabolic acidosis -anion gap down to 19 this morning, pH 7.24 and bicarb 12 -continue insulin drip, fluid, dextrose and potassium 2) Hypertension -IV hydralazine and nitroglycerin given, EKG performed and did not show any ST elevations, troponins pending 3) Urinary Retention -place esteban catheter, started ceftriaxone 4) r/o PUD/upper GI bleed -emesis was positive for occult blood, will consult surgery for possible endoscopy -start IV protonix BID (1) DKA (diabetic ketoacidoses) Status: Acute Assessment & Plan: - Patient on Insulin gtts, Accuchecks hourly, A1c pending, will transition to subcutaneous insulin in AM 01/14: Stop gtts, Start subcutaneous insulin, A1c pending Qualifiers: Qualified Codes: E11.10 - Type 2 diabetes mellitus with ketoacidosis without coma (2) Hematemesis Status: Acute Assessment & Plan: - Consult Dr Castanon, appreciate recommendations, vomit positive for blood, patient with long h/o EtOH use, stopped 2 years ago, Started on protonix IV BID 01/14: EGD this AM, continue protonix, add sucralfate Qualifiers: Qualified Codes: K92.0 - Hematemesis (3) Uncontrolled diabetes mellitus Status: Chronic Qualifiers: (4) Hyponatremia Status: Acute Assessment & Plan: - Likely hypovolemic hyponatremia, will focus on hydration, Esteban placed for accurate I/Os (5) Atypical chest pain Status: Resolved Assessment & Plan: - ECG with irregular rate, Trop neg (6) Hypertension Status: Chronic Assessment & Plan: - Will restart home meds 01/14: Stop IVFs, good UOP, d/c esteban Qualifiers: Qualified Codes: I10 - Essential (primary) hypertension (7) Altered mental status Status: Resolved (8) Depression Status: Chronic Assessment & Plan: - Restart Buspirone, holding wellbutrin since patient has been off and is currently hypertensive Qualifiers: Qualified Codes: F33.1 - Major depressive disorder, recurrent, moderate (9) Hypokalemia Status: Resolved Assessment & Plan: - Replace and recheck (10) DVT prophylaxis Status: Acute Assessment & Plan: - SCDs 2/2 to concerns for UGI bleeding Clinical Quality Measures DVT/VTE Risk/Contraindication: Risk Factor Score Per Nursin RFS Level Per Nursing on Admit: 4+=Very High REJI ROY MD Jan 15, 2020 21:09
[2020-01-16] VITALS: BP 173/82
[2020-01-16 04:25] VITALS: BP 176/83
[2020-01-16 05:06] LABS: BASOPHILS % (AUTO) 0 % (0-10); EOSINOPHILS # (AUTO) 0.1 10^3/uL (0.0-0.3); EOSINOPHILS % (AUTO) 2 % (0-10); HEMATOCRIT 46 % (35-52); HEMOGLOBIN 16.2 G/DL (11.5-16.0); LYMPHOCYTES # (AUTO) 1.5 X 10^3 (1.0-4.0); LYMPHOCYTES % (AUTO) 18 % (12-44); MEAN CORPUSCULAR HEMOGLOBIN 29 PG (25-34); MEAN CORPUSCULAR HGB CONC 35 G/DL (32-36); MEAN CORPUSCULAR VOLUME 82 FL (80-99); MEAN PLATELET VOLUME 9.1 FL (7.4-10.4); MONOCYTES # (AUTO) 0.9 X 10^3 (0.0-1.0); MONOCYTES % (AUTO) 11 % (0-12); NEUTROPHILS # (AUTO) 5.8 X 10^3 (1.8-7.8); NEUTROPHILS % (AUTO) 69 % (42-75); PLATELET COUNT 210 10^3/uL (130-400); RED CELL DISTRIBUTION WIDTH 13.4 % (10.0-14.5); WHITE BLOOD COUNT 8.3 10^3/uL (4.3-11.0)
[2020-01-16 05:31] LABS: BUN/CREATININE RATIO 6; CALCIUM 8.6 MG/DL (8.5-10.1); CARBON DIOXIDE 26 MMOL/L (21-32); CHLORIDE 98 MMOL/L (98-107); CREATININE SERUM 0.65 MG/DL (0.60-1.30); GFR ESTIMATED > 60; GLUCOSE 184 MG/DL (70-105); MAGNESIUM 1.7 MG/DL (1.6-2.4); PHOSPHORUS 2.2 MG/DL (2.3-4.7); POTASSIUM 2.9 MMOL/L (3.6-5.0); SODIUM 136 MMOL/L (135-145)
[2020-01-16] MEDS: inSUlin ASPART (NovoLOG) 1 UNIT/0.01 ML (CHARGE PER UNIT) SC SCH ×4 (06:15→20:59)
[2020-01-16 08:00] VITALS: BP 178/84
[2020-01-16] MEDS: SUCRALFATE 1 GM (CARAFATE) TAB PO SCH ×2 (08:04→21:00)
[2020-01-16] MEDS: FLUCONAZOLE 200 MG/100 ML 50 ML, EMPTY IV BAG (PVC) 1 EA IV SCH ×2 (08:04)
[2020-01-16] MEDS: busPIRone 10 MG (BUSPAR) TAB PO SCH ×2 (08:04→21:00)
[2020-01-16] MEDS: PANTOPRAZOLE 40 MG (PROTONIX) VIAL IV SCH ×2 (08:04→20:58)
[2020-01-16] MEDS: amLODIPine 5 MG (NORVASC) TAB PO SCH (08:05)
[2020-01-16] MEDS: MICONAZOLE 2% POWDER (DESENEX AF) 90 GM TOP SCH ×2 (08:07→20:57)
[2020-01-16] MEDS ORDERED: KCL 20 MEQ TAB (K-DUR) PO ONE (08:30)
--- NOTE | 2020-01-16 09:15 | NUR ---
This RN was with pt and observed suicidal ideations. Pt verbalized to this RN that she "wants the blinds closed because I felt that I could get up on the ledge and jump from the window". This RN then notified both [facility] and Dr. Mendes about suicidal ideations. Pt was put under suicidal precautions and placed on a telesitter per Dr. Mendes's orders. Upon assessment at 0800 to 0930: pt remains moderately anxious. Pt given 0.5 mg of ativan at 0945 after telesitter was placed.
[2020-01-16] MEDS ORDERED: LORazepam INJ 2 MG/ML (ATIVAN) VIAL IVP ONE (09:30)
[2020-01-16 12:00] VITALS: BP 160/96
[2020-01-16] MEDS: CALCIUM CARBONATE 500 MG (TUMS) TAB.CHEW PO PRN (14:07)
--- NOTE | 2020-01-16 14:31 | Progress Note ---
Subjective Subjective/Events-last exam Patient having anxiety this AM. States that she told the nurse that she felt like jumping out of the window but that she really wouldn't do it. She states that she is anxious about life and about "all the hype around manrique virus" States that her throat feels funny and she feels like she is having a hard time swallowing. Review of Systems Pulmonary: No Dyspnea Cardiovascular: No: Chest Pain, Palpitations Gastrointestinal: Nausea, Abdominal Pain; No: Vomiting Neurological: Weakness Focused Exam Lactate Level 01/14/20 05:15: Lactic Acid Level 1.70 Objective Exam Last Set of Vital Signs Vital Signs Date Time Temp Pulse Resp B/P (MAP) Pulse Ox O2 Delivery O2 Flow Rate FiO2 01/16/20 12:00 36.7 76 20 160/96 (117) 96 Room Air Capillary Refill : Less Than 3 Seconds I&O Intake and Output 01/16/20 00:00 Intake Total 5555 ml Output Total 3925 ml Balance 1630 ml Intake Oral 1700 ml IV Total 3855 ml Output Urine Total 3925 ml # Voids 2 General: Alert, Oriented X3, Cooperative, Mild Distress (with anxiety) Lungs: Clear to Auscultation, Normal Air Movement Heart: Regular Rate, No Murmurs Abdomen: Soft, Other (+ epigastric ttp) Extremities: Other (trace swelling) Psych/Mental Status: Other (Suicidal comments) Results/Procedures Lab Laboratory Tests 01/15/20 15:44: Glucometer 186H 01/15/20 20:28: Glucometer 240H 01/16/20 04:25: White Blood Count 8.3, Red Blood Count 5.63, Hemoglobin 16.2H, Hematocrit 46, Mean Corpuscular Volume 82, Mean Corpuscular Hemoglobin 29, Mean Corpuscular Hemoglobin Concent 35, Red Cell Distribution Width 13.4, Platelet Count 210, Mean Platelet Volume 9.1, Neutrophils (%) (Auto) 69, Lymphocytes (%) (Auto) 18, Monocytes (%) (Auto) 11, Eosinophils (%) (Auto) 2, Basophils (%) (Auto) 0, Neutrophils # (Auto) 5.8, Lymphocytes # (Auto) 1.5, Monocytes # (Auto) 0.9, Eosinophils # (Auto) 0.1, Basophils # (Auto) 0.0, Sodium Level 136, Potassium Level 2.9L, Chloride Level 98, Carbon Dioxide Level 26, Anion Gap 12, Blood Urea Nitrogen 4L, Creatinine 0.65, Estimat Glomerular Filtration Rate > 60, BUN/Creatinine Ratio 6, Glucose Level 184H, Calcium Level 8.6, Phosphorus Level 2.2L, Magnesium Level 1.7 01/16/20 11:21: Glucometer 188H Microbiology 01/15/20 Fungal Culture 1 - Preliminary, Resulted Culture In Progress 01/14/20 Blood Culture - Preliminary, Resulted No growth Assessment/Plan Assessment/Plan Assessment & Plan 1) DKA with anion gap metabolic acidosis -anion gap down to 19 this morning, pH 7.24 and bicarb 12 -continue insulin drip, fluid, dextrose and potassium 2) Hypertension -IV hydralazine and nitroglycerin given, EKG performed and did not show any ST elevations, troponins pending 3) Urinary Retention -place esteban catheter, started ceftriaxone 4) r/o PUD/upper GI bleed -emesis was positive for occult blood, will consult surgery for possible endoscopy -start IV protonix BID (1) DKA (diabetic ketoacidoses) Status: Resolved Assessment & Plan: - Patient on Insulin gtts, Accuchecks hourly, A1c pending, will transition to subcutaneous insulin in AM 01/14: Stop gtts, Start subcutaneous insulin, A1c pending Qualifiers: Qualified Codes: E11.10 - Type 2 diabetes mellitus with ketoacidosis without coma (2) Hematemesis Status: Acute Assessment & Plan: - Consult Dr Castanon, appreciate recommendations, vomit positive for blood, patient with long h/o EtOH use, stopped 2 years ago, Started on protonix IV BID 01/14: EGD this AM, continue protonix, add sucralfate 01/15: EGD significant for candidiasis and mild gastritis, Started on Diflucan Qualifiers: Qualified Codes: K92.0 - Hematemesis (3) Uncontrolled diabetes mellitus Status: Chronic Assessment & Plan: 01/15: Restarted home Levemir, Will start metformin and Trulicity at discharge, A1c 13.1 Qualifiers: (4) Hyponatremia Status: Acute Assessment & Plan: - Likely hypovolemic hyponatremia, will focus on hydration, Esteban placed for accurate I/Os (5) Atypical chest pain Status: Resolved Assessment & Plan: - ECG with irregular rate, Trop neg (6) Hypertension Status: Chronic Assessment & Plan: - Will restart home meds 01/14: Stop IVFs, good UOP, d/c esteban Qualifiers: Qualified Codes: I10 - Essential (primary) hypertension (7) Altered mental status Status: Resolved (8) Depression Status: Chronic Assessment & Plan: - Restart Buspirone, holding wellbutrin since patient has been off and is currently hypertensive Qualifiers: Qualified Codes: F33.1 - Major depressive disorder, recurrent, moderate (9) Hypokalemia Status: Resolved Assessment & Plan: - Replace and recheck (10) Esophageal candidiasis Status: Acute (11) Suicidal ideation Status: Acute Assessment & Plan: 01/15: Tele Sitter in place, restarted on wellbutrin, has outpatient therapist (12) DVT prophylaxis Status: Acute Assessment & Plan: - SCDs 2/2 to concerns for UGI bleeding Clinical Quality Measures DVT/VTE Risk/Contraindication: Risk Factor Score Per Nursin RFS Level Per Nursing on Admit: 4+=Very High REJI ROY MD Jan 16, 2020 14:30
--- NOTE | 2020-01-16 14:53 | NUR ---
provided prayer and Communion.
[2020-01-16] MEDS: buPROPion SR 150 MG (WELLBUTRIN SR) TAB PO SCH (15:01)
--- NOTE | 2020-01-16 15:02 | Progress Note ---
Subjective Date Seen by a Provider: Jan 16, 2020 Time Seen by a Provider: 15:00 Subjective/Events-last exam doing ok. still has dysphagia however expected. no nausea/vomiting. Focused Exam Lactate Level 01/14/20 05:15: Lactic Acid Level 1.70 Objective Exam Vital Signs Date Time Temp Pulse Resp B/P (MAP) Pulse Ox O2 Delivery O2 Flow Rate FiO2 01/16/20 12:00 36.7 76 20 160/96 (117) 96 Room Air 01/16/20 08:00 36.8 73 18 178/84 (115) 98 Room Air 01/16/20 08:00 98 Room Air 01/16/20 04:25 36.5 69 20 176/83 (114) 95 Room Air 01/16/20 00:00 36.4 72 20 173/82 (112) 96 Room Air 01/15/20 20:55 96 Room Air 01/15/20 20:00 37.2 79 18 170/89 (116) 96 Room Air 01/15/20 16:00 36.5 74 17 161/74 (103) 99 Room Air I & O 01/16/20 07:00 Intake Total 3555 ml Output Total 2150 ml Balance 1405 ml Capillary Refill : Less Than 3 Seconds General Appearance: No Apparent Distress HEENT: PERRL/EOMI Neck: Full Range of Motion Respiratory: Chest Non Tender, Lungs Clear Cardiovascular: Regular Rate, Rhythm Gastrointestinal: normal bowel sounds, non tender, soft Extremity: Normal Capillary Refill Neurologic/Psychiatric: Alert, Oriented x3 Skin: Normal Color Lymphatic: No Adenopathy Results Lab Laboratory Tests 01/15/20 15:44: Glucometer 186H 01/15/20 20:28: Glucometer 240H 01/16/20 04:25: White Blood Count 8.3, Red Blood Count 5.63, Hemoglobin 16.2H, Hematocrit 46, Mean Corpuscular Volume 82, Mean Corpuscular Hemoglobin 29, Mean Corpuscular Hemoglobin Concent 35, Red Cell Distribution Width 13.4, Platelet Count 210, Mean Platelet Volume 9.1, Neutrophils (%) (Auto) 69, Lymphocytes (%) (Auto) 18, Monocytes (%) (Auto) 11, Eosinophils (%) (Auto) 2, Basophils (%) (Auto) 0, Neutrophils # (Auto) 5.8, Lymphocytes # (Auto) 1.5, Monocytes # (Auto) 0.9, Eosinophils # (Auto) 0.1, Basophils # (Auto) 0.0, Sodium Level 136, Potassium Level 2.9L, Chloride Level 98, Carbon Dioxide Level 26, Anion Gap 12, Blood Urea Nitrogen 4L, Creatinine 0.65, Estimat Glomerular Filtration Rate > 60, BUN/Creatinine Ratio 6, Glucose Level 184H, Calcium Level 8.6, Phosphorus Level 2.2L, Magnesium Level 1.7 01/16/20 11:21: Glucometer 188H Microbiology 01/15/20 Fungal Culture 1 - Preliminary, Resulted Culture In Progress 01/14/20 Blood Culture - Preliminary, Resulted No growth Assessment/Plan Assessment/Plan Assess & Plan/Chief Complaint DKA with esophageal candidiasis and gastritis. cont PPI and antifungal. dys3 diet as tolerated. Clinical Quality Measures DVT/VTE Risk/Contraindication: Risk Factor Score Per Nursin RFS Level Per Nursing on Admit: 4+=Very High PATRICA LARSON MD Jan 16, 2020 15:02
[2020-01-16 15:25] VITALS: BP 166/77
--- NOTE | 2020-01-16 17:52 | NUR ---
REPORT RECEIVED FROM OMAR GREEN
[2020-01-16 20:28] VITALS: BP 158/81
[2020-01-17 00:01] VITALS: BP 166/81
[2020-01-17] MEDS: ONDANSETRON 4 MG/2 ML (SDV) Z0FRAN IVP PRN (02:01)
[2020-01-17 04:25] VITALS: BP 159/94
[2020-01-17] MEDS: CALCIUM CARBONATE 500 MG (TUMS) TAB.CHEW PO PRN (04:35)
[2020-01-17 04:53] LABS: BASOPHILS % (AUTO) 0 % (0-10); EOSINOPHILS # (AUTO) 0.1 10^3/uL (0.0-0.3); EOSINOPHILS % (AUTO) 1 % (0-10); HEMATOCRIT 49 % (35-52); HEMOGLOBIN 17.5 G/DL (11.5-16.0); LYMPHOCYTES # (AUTO) 1.1 X 10^3 (1.0-4.0); LYMPHOCYTES % (AUTO) 15 % (12-44); MEAN CORPUSCULAR HEMOGLOBIN 29 PG (25-34); MEAN CORPUSCULAR HGB CONC 36 G/DL (32-36); MEAN CORPUSCULAR VOLUME 82 FL (80-99); MEAN PLATELET VOLUME 9.2 FL (7.4-10.4); MONOCYTES # (AUTO) 0.8 X 10^3 (0.0-1.0); MONOCYTES % (AUTO) 10 % (0-12); NEUTROPHILS # (AUTO) 5.6 X 10^3 (1.8-7.8); NEUTROPHILS % (AUTO) 74 % (42-75); PLATELET COUNT 242 10^3/uL (130-400); RED CELL DISTRIBUTION WIDTH 13.4 % (10.0-14.5); WHITE BLOOD COUNT 7.7 10^3/uL (4.3-11.0)
[2020-01-17 05:12] LABS: BUN/CREATININE RATIO 9; CALCIUM 9.2 MG/DL (8.5-10.1); CARBON DIOXIDE 25 MMOL/L (21-32); CHLORIDE 91 MMOL/L (98-107); GFR ESTIMATED > 60; GLUCOSE 241 MG/DL (70-105); MAGNESIUM 1.8 MG/DL (1.6-2.4); PHOSPHORUS 2.9 MG/DL (2.3-4.7); POTASSIUM 2.8 MMOL/L (3.6-5.0); SODIUM 134 MMOL/L (135-145)
[2020-01-17] MEDS: inSUlin ASPART (NovoLOG) 1 UNIT/0.01 ML (CHARGE PER UNIT) SC SCH ×3 (05:46→17:01)
[2020-01-17 08:00] VITALS: BP 171/78
[2020-01-17] MEDS: FLUCONAZOLE 200 MG/100 ML 50 ML, EMPTY IV BAG (PVC) 1 EA IV SCH ×2 (08:40)
[2020-01-17] MEDS: MICONAZOLE 2% POWDER (DESENEX AF) 90 GM TOP SCH (08:40)
[2020-01-17] MEDS: PANTOPRAZOLE 40 MG (PROTONIX) VIAL IV SCH (08:40)
[2020-01-17] MEDS: SUCRALFATE 1 GM (CARAFATE) TAB PO SCH (08:40)
[2020-01-17] MEDS: buPROPion SR 150 MG (WELLBUTRIN SR) TAB PO SCH (08:40)
[2020-01-17] MEDS: amLODIPine 5 MG (NORVASC) TAB PO SCH (08:41)
[2020-01-17] MEDS: busPIRone 10 MG (BUSPAR) TAB PO SCH (08:41)
--- NOTE | 2020-01-17 10:33 | NUR ---
CM/SS visited with the patient for social service consult. The patient was awake but sitting in the room with the lights off. CM/SS spoke with the patient about her comment to the nurse yesterday. She confirmed that she did make that comment but it was because she felt overwhelmed and anxious yesterday. CM/SS asked the patient if she wanted to kill herself today. The patient stated "no" the patient denied any feelings of self harm or suicidal ideation at this time. The patient states that she lives at home with her ex who is currently still working. She reports that she used to go to [facility] and see Mary for therapy. She has not had or been to an appointment since around March of 2019. CM/SS discussed with the patient about making an appointment to [facility] again; she reports she would be willing to do that. CM/SS asked if she wanted this SS to call and make an appointment with her and she reports she will have to call due to transportation set up. She was currently getting medications for her depression and anxiety but reports that she ran out and was to anxious to make a phone call for a refill. The patient stated that she was starting to feel nervous during the conversation due to talking about all of this. CM/SS ended the visit to reduce patients anxiety. Will continue to follow.
--- NOTE | 2020-01-17 11:33 | NUR ---
RD ASSESSMENT PMHx: DM; HTN; COPD; GERD; dementia; ETOH abuse; medical noncompliance PT INTERACTION: Pt was awake and pleasant during nutrition assessment. Pt states current appetite is so-so and has been for "a while." Note avg PO intake 25-50% x1d, per chart review. Pt states following a low-CHO diet at home, and has some difficulty swallowing food. Pt states recent issues with n/v. Note 2 episodes of emesis on 01/13, per chart review. Pt states recent isues with diarrhea, and that her last BM was 01/10 or 01/11. Note pt not currently on bowel regimen per chart review. Pt states some recent wt loss, but unsure of amount/timeframe. Note unable to determine recent wt hx, per chart review. ABNORMAL NUTRITION-RELATED LAB VALUES LOW: Na 134; K 2.8; Cl 91; BUN 6 HIGH: glu 241 Est. kcal needs: 8361-0116 kcal | 15-18 kcal/kg Est. Pro needs: 83-103 g Pro | 0.8-1.0 g Pro/kg PES STATEMENT: Inadequate oral intake (NI-2.1) related to loss of appetite | nausea | vomiting | diarrhea as evidenced by pt interview | avg PO intake 25-50% x1d INTERVENTION: Continue with current diet order of DYS3 Advanced/Ground Meat diet, with CHO 60g/m modifier. Add Glucerna (vary) to meals TID, for increased kcal intake. Provides 220 kcal and 10 g Pro per serving. Will continue to follow and reassess as pt needs, intake, and status change. MONITOR/EVALUATE: PO Intake; Plan of Care; Hydration Status; Weight Status; Lab Values Silvio Brock, MS, RD, LD
[2020-01-17 12:00] VITALS: BP 172/99
--- NOTE | 2020-01-17 12:04 | Discharge Summary ---
Diagnosis/Chief Complaint Date of Admission Jan 14, 2020 at 04:36 Date of Discharge 01/17/2020 Admission Diagnosis Admission Diagnosis See problem list Discharge Diagnosis See Below Problems/Diagnosis: (1) DKA (diabetic ketoacidoses) Assessment & Plan: - Patient on Insulin gtts, Accuchecks hourly, A1c pending, will transition to subcutaneous insulin in AM 01/14: Stop gtts, Start subcutaneous insulin, A1c pending 01/15: A1c 13.3, adjusted insulin Qualifiers: Qualified Codes: E11.10 - Type 2 diabetes mellitus with ketoacidosis without coma Status: Resolved Resolution Date/Time: 01/16/20 @ 14:33 (2) Hematemesis Assessment & Plan: - Consult Dr Castanon, appreciate recommendations, vomit positive for blood, patient with long h/o EtOH use, stopped 2 years ago, Started on protonix IV BID 01/14: EGD this AM, continue protonix, add sucralfate 01/15: EGD significant for candidiasis and mild gastritis, Started on Diflucan 01/16: Continue Diflucan, bland diet Qualifiers: Qualified Codes: K92.0 - Hematemesis Status: Acute (3) Uncontrolled diabetes mellitus Assessment & Plan: 01/15: Restarted home Levemir, Will start metformin and Trulicity at discharge, A1c 13.1 Qualifiers: Status: Chronic (4) Hyponatremia Assessment & Plan: - Likely hypovolemic hyponatremia, will focus on hydration, Esteban placed for accurate I/Os Status: Resolved Resolution Date/Time: 01/16/20 @ 20:05 (5) Atypical chest pain Assessment & Plan: - ECG with irregular rate, Trop neg Status: Resolved Resolution Date/Time: 01/15/20 @ 21:08 (6) Hypertension Assessment & Plan: - Will restart home meds 01/14: Stop IVFs, good UOP, d/c esteban Qualifiers: Qualified Codes: I10 - Essential (primary) hypertension Status: Chronic (7) Altered mental status Status: Resolved (8) Depression Assessment & Plan: - Restart Buspirone, holding wellbutrin since patient has been off and is currently hypertensive Qualifiers: Qualified Codes: F33.1 - Major depressive disorder, recurrent, moderate Status: Chronic (9) Hypokalemia Assessment & Plan: - Replace and recheck Status: Resolved Resolution Date/Time: 01/15/20 @ 21:09 (10) Esophageal candidiasis Status: Acute (11) Suicidal ideation Assessment & Plan: 01/15: Tele Sitter in place, restarted on wellbutrin, has outpatient therapist Status: Acute (12) DVT prophylaxis Assessment & Plan: - SCDs 12/02 to concerns for UGI bleeding Status: Acute Chief Complaint/HPI Chief Complaint/HPI Reviewed above HPI with patient and agree with above documentation. In addition Patient states that she stopped taking all her medications about 1 month ago because she ran out and never got refills. States that she has been having coffee ground emesis for the last week. States that she has not drank any EtOH in the last 2 years. Denies any sick contacts. Discharge Summary-Simple/Stand Consultations Discharge Physical Examination Allergies: Coded Allergies: morphine (Verified Adverse Reaction, Mild, NAUSEA, 05/19/16) Vitals & I&Os Vital Sign - Last 12Hours Date Time Temp Pulse Resp B/P (MAP) Pulse Ox O2 Delivery O2 Flow Rate FiO2 01/17/20 08:00 94 Room Air 01/17/20 08:00 36.0 67 18 171/78 (109) Intake and Output 01/17/20 00:00 Intake Total 1636 ml Balance 1636 ml General Appearance: Alert, Oriented X3, Cooperative, No Acute Distress HEENT: Mucous Memb Moist/[place] Respiratory: Clear to Auscultation, Normal Air Movement Cardiovascular: Regular Rate, No Murmurs Abdominal: Normal Bowel Sounds, Soft, No Tenderness, No Masses Extremities: No Edema, No Tenderness/Swelling Neuro: Normal Speech, Strength at 5/5 X4 Ext, Sensation Intact, Cranial Nerves 3-12 NL Psych/Mental Status: Mental Status NL Hospital Course Was the Problem List Reviewed?: Yes See final discharge diagnosis. Discussion & Recommendations 65 yo F with long h/o non compliance that presented with DKA and started on insulin gtts with multiple metabolic abnormalities. Patient was transitioned to her home insulin and restarted on metformin and started trulicity at discharge. Patient also had occult + emesis and was scoped by Dr Castanon during admission. Scope reveal fungal infection with gastritis. Patient was started on Diflucan and emesis and pain improved. Will complete course of diflucan. Discussed with patient the importance of getting blood sugars under control. Will have close f.u with PCP Discharge Condition at discharge stable Instructions to patient/family Please see electronic discharge instructions given to patient. Discharge Medications Reviewed and agree with Discharge Medication list on patient's Discharge Instruction sheet Clinical Quality Measures DVT/VTE Risk/Contraindication: Risk Factor Score Per Nursin RFS Level Per Nursing on Admit: 4+=Very High Copy Copies To 1: REJI ROY MD, HOLLY R MD Jan 17, 2020 12:04
[2020-01-17] MEDS ORDERED: PANT40TA2 PO (12:08)
[2020-01-17] MEDS ORDERED: INSU100V5 SQ (12:08)
[2020-01-17] MEDS ORDERED: FLUC100T PO (12:08)
[2020-01-17] MEDS ORDERED: SUCR1TAB PO (12:08)
[2020-01-17] MEDS ORDERED: METF750T45 PO (12:08)
[2020-01-17] MEDS ORDERED: BUSP10TA95 PO (12:08)
[2020-01-17] MEDS ORDERED: BUPR150T14 PO (12:08)
[2020-01-17] MEDS ORDERED: AMLO5TAB9 PO (12:08)
--- NOTE | 2020-01-17 12:10 | Discharge Summary ---
Discharge [facility] Reconcile Patient Problems Problems Reviewed?: Yes Discharge Medications New, Converted or Re-Newed RX: Transmitted to Pharmacy New Medications: Fluconazole (Diflucan) 100 Mg Tablet 100 MG PO DAILY for 10 Days, #10 TAB Metformin HCl (Metformin HCl ER) 750 Mg Tab.er.24h 750 MG PO BID, #60 TAB Pantoprazole Sodium (Protonix) 40 Mg Tablet.dr 40 MG PO DAILY, #30 TAB Amlodipine Besylate (Amlodipine Besylate) 5 Mg Tablet 10 MG PO DAILY, #30 TAB Bupropion HCl (Bupropion HCl Sr) 150 Mg Tablet.er 150 MG PO DAILY, #30 TAB Buspirone HCl (Buspirone HCl) 10 Mg Tablet 10 MG PO BID, #60 TAB Insulin Determir (Levemir) 1,000 Units/10 Ml Soln 15 UNIT SQ HS, #30 EA Sucralfate (Sucralfate) 1 Gm Tablet 1 GM PO BID, #60 TAB Patient Instructions Goal/Follow Up Appt: You have an appt with Dr Mendes on January 21 @ 2 pm Activity & Diet Discharge Diet: ADA Diet Activity as Tolerated: Yes REJI MENDES MD Jan 17, 2020 12:10
[2020-01-17 16:00] VITALS: BP 179/79
--- NOTE | 2020-01-17 16:45 | NUR ---
Received report from NORMA Taylor. Assumed care of pt at this time.
[2020-01-17 18:15] VITALS: BP 179/79
--- NOTE | 2020-01-18 11:52 | Physician Query Clarification ---
PQ-Further Specificity Admission/Discharge Admission Date: Jan 14, 2020 at 04:36 Discharge Date: Jan 17, 2020 at 18:15 The medical record reflects the following clinical scenario: History/Risk Factors: DM ketoacidosis, hematemesis, HTN w/chronic diastorlic CHF Clinical Findings: hematemesis, EGD - juan manuel esophagitis, moderate gastritis Treatment: IV Fluconazole, IV Ceftrizxone Question: Can you further specify the etiology of the hematemesis per the clinical indicators above? Please document a response in the Progress Notes or Discharge Summary. 1. juan manuel esophagitis and moderate gastritis 2. juan manuel esophagitis only 3. moderate gastritis only 4. etiology of the hematemesis is undetermined 5. Other, with explanation of the clinical findings. 6. Clinically undetermined, no explanation for the clinical findings. PHYSICIAN RESPONSE Can you specify per above: 1 Please remember a lack of response to the above will prompt a phone page by CDI/Coding staff. In responding to this query, please exercise your independent professional judgment. The purpose of this communication is to more accurately reflect the complexity of your patients condition. The fact that a question is asked does not imply that any particular answer is desired or expected. Thank you for your timely response to this clarification. Requestors name: Dakotah THIS PHYSICIAN QUERY FORM IS A PERMANENT PART OF THE MEDICAL RECORD DAKOTAH FLEMING Jan 18, 2020 11:52 REJI ROY MD Feb 04, 2020 19:20
--- NOTE | 2020-01-29 14:10 | OPERATIVE REPORT ---
DATE OF SERVICE: 01/15/2020 CONTINUATION A moderate severity gastritis was noted throughout the stomach. No formal ulcerations, polyps, or any neoplasms. A biopsy was taken of the antrum to rule out H. pylori with visualization of good hemostasis. The endoscope was then advanced to the pylorus and the first and second portion of the duodenum, which appeared normal with no distal obstructions. The endoscope was then slowly withdrawn while taking a second look and suctioning of residual air with no additional findings. The patient tolerated the procedure well. Most likely etiology of her dysphagia, hematemesis secondary to the esophageal candidiasis and the diabetic ketoacidosis and uncontrolled hyperglycemia. She also does have a component of stress-induced gastritis and we will proceed with treatment with Diflucan as well as Protonix. We will start a clear liquid diet and advance as tolerated as well. Job ID: [id number] DocumentID: [id number] Dictated Date: 01/29/2020 13:46:29 Grades 9 12 Tutor Date: 01/29/2020 14:08:57 Dictated By: PATRICA LARSON MD
--- NOTE | 2020-01-29 14:11 | OPERATIVE REPORT ---
DATE OF SERVICE: 01/15/2020 PREOPERATIVE DIAGNOSES: Dysphagia, gastroesophageal reflux disease. POSTOPERATIVE DIAGNOSES: Esophageal candidiasis, reflux esophagitis stage III, small hiatal hernia 1.5 cm in size, moderate gastritis. PROCEDURE: EGD with biopsy and brushings. SURGEON: Patrica Larson MD ANESTHESIA: Conscious sedation. ESTIMATED BLOOD LOSS: Minimal. FINDINGS: Esophageal candidiasis, reflux esophagitis stage III, small hiatal hernia 1.5 cm in size, moderate gastritis. DISPOSITION: The patient tolerated the procedure well. INDICATIONS: The patient is a 65-year-old female who came in confused and nausea and vomiting with diabetic ketoacidosis. She was admitted, placed on IV fluids as well as insulin drip and improved. She has had issues with dysphagia and reflux esophagitis. DESCRIPTION OF PROCEDURE: The patient was brought to the endoscopy suite, laid in left lateral decubitus position with head elevated. After adequate IV pain and sedated medications and conscious sedation anesthesia, the mouthpiece was applied. The endoscope was placed in the mouth, visualizing the pharynx and hypopharyngeal region. Vocal cords, epiglottis and vallecula identified and appeared to be normal. The endoscope was gently abated esophageal opening and esophagus insufflated. The endoscope was then advanced to the first, second and third portion of the esophagus at the level of the GE junction. There was a white plaquish material consistent with an esophageal candidiasis. Reflux esophagitis stage III also identified. Brushings were taken as well as biopsies of the GE junction with visualization of good hemostasis. The endoscope was then advanced in the stomach and endoscope retroflexed, visualizing a small hiatal hernia 1.5 cm in size. DICTATION ENDS HERE. Job ID: [id number] DocumentID: [id number] Dictated Date: 01/29/2020 13:09:15 Customer Professional Date: 01/29/2020 14:10:56 Dictated By: PATRICA LARSON MD
== END 2020-01-17 18:15 | disposition home or self-care (01) | DRG 368 ==
LOC: ICU 04:36 → 4TH 01-15 16:04
PROVIDERS: ADMIT Internal Medicine; ATTEND Internal Medicine
PROC: 0DD48ZX Extraction of Esophagogastric Junction, Via Natural or Artificial Opening Endoscopic, Diagnostic (ICD-10-PCS; 2020-01-15)
PROC: 0DD78ZX Extraction of Stomach, Pylorus, Via Natural or Artificial Opening Endoscopic, Diagnostic (ICD-10-PCS; 2020-01-15)
PROC: 0DB48ZX Excision of Esophagogastric Junction, Via Natural or Artificial Opening Endoscopic, Diagnostic (ICD-10-PCS; principal; 2020-01-15 12:00)
DX: B37.81 Candidal esophagitis (principal); K29.71 Gastritis, unspecified, with bleeding; E11.10 Type 2 diabetes mellitus with ketoacidosis without coma; E87.1 Hypo-osmolality and hyponatremia; I11.0 Hypertensive heart disease with heart failure; I50.30 Unspecified diastolic (congestive) heart failure; E87.2 Acidosis; F33.1 Major depressive disorder, recurrent, moderate; R45.851 Suicidal ideations; R07.89 Other chest pain; K21.0 Gastro-esophageal reflux disease with esophagitis; F17.210 Nicotine dependence, cigarettes, uncomplicated; F10.10 Alcohol abuse, uncomplicated; R33.9 Retention of urine, unspecified; J44.9 Chronic obstructive pulmonary disease, unspecified; E87.6 Hypokalemia; F41.9 Anxiety disorder, unspecified; F03.90 Unspecified dementia, unspecified severity, without behavioral disturbance, psychotic disturbance, mood disturbance, and anxiety; R29.6 Repeated falls; J30.2 Other seasonal allergic rhinitis; K44.9 Diaphragmatic hernia without obstruction or gangrene; M19.91 Primary osteoarthritis, unspecified site; F90.9 Attention-deficit hyperactivity disorder, unspecified type; F50.9 Eating disorder, unspecified; L40.9 Psoriasis, unspecified; Z91.14 Patient's other noncompliance with medication regimen; Z96.652 Presence of left artificial knee joint; Z79.4 Long term (current) use of insulin
CPT/HCPCS: 36415; 71045; 80048; 80053; 80306; 81000; 81002; 82010; 82271; 82805; 82962; 83036; 83605; 83735; 83880; 84100; 84145; 84484; 85007; 85025; 85027; 87040; 87081; 87101; 87106; 87449; 87804; 87899; 88305; 88342; 93005

== ENCOUNTER 2020-08-07 11:30 | Day surgery (SDC) | payer MEDICARE ==
[2020-08-07] VITALS (10 sets, daily range): BP systolic 114–175; BP diastolic 62–106
[~2020-08-07] VITALS: Ht 165.1 cm; Wt 57.0 kg
[~2020-08-07 11:30] MED LIST changes: +BUPR150T14 PO; +BUSP10TA95 PO; +INSU100V5 SQ; +METF750T45 PO; -PANT40TA3 PO; +PANT40TA52 PO; +SUCR1TAB PO
--- NOTE | 2020-08-07 11:51 | Progress Note-Pre Operative ---
Pre-Operative Progress Note H&P Reviewed The H&P was reviewed, patient examined and no changes noted. Date Seen by Provider: Aug 07, 2020 Time Seen by Provider: 11:50 Date H&P Reviewed: Aug 07, 2020 Time H&P Reviewed: 11:50 Pre-Operative Diagnosis: Melanoma in situ LOBITO MCKEON DO Aug 07, 2020 11:51
[2020-08-07] MEDS ORDERED: LACTATED RINGERS 1,000 ML IV PRN (12:05)
[2020-08-07] MEDS ORDERED: BUP/EPI 0.25% 1:200,000 (MARCAINE) 30 ML VIAL ONE (12:10)
[2020-08-07] MEDS ORDERED: ONDANSETRON 4 MG/2 ML (SDV) Z0FRAN ONE (12:14)
[2020-08-07] MEDS ORDERED: fentaNYL INJECTION 100 MCG/2 ML AMP ONE ×2 (12:14→13:25)
[2020-08-07] MEDS ORDERED: proPOfol 200 MG/20 ML (DIPRIVAN) VIAL IV ONE (12:14)
[2020-08-07] MEDS ORDERED: LIDOCAINE PF 2% 5 ML (XYLOCAINE) VIAL ONE (12:14)
[2020-08-07] MEDS ORDERED: SEVOFLURANE (ULTANE) 15 ML INHAL SOLN ONE (12:15)
[2020-08-07] MEDS ORDERED: MIDAZOLAM 2 MG/2 ML (VERSED) VIAL IV ONE (12:15)
[2020-08-07] MEDS ORDERED: ceFAZolin INJECTION 2,000 MG ONE (12:44)
[2020-08-07] MEDS ORDERED: ONDANSETRON 4 MG/2 ML (SDV) Z0FRAN IVP PRN (13:15)
[2020-08-07] MEDS ORDERED: MEPERIDINE (DEMEROL) INJ 50 MG/ML IVP ONE (13:15)
[2020-08-07] MEDS ORDERED: fentaNYL INJECTION 100 MCG/2 ML AMP IVP ONE (13:15)
--- NOTE | 2020-08-07 13:16 | Anesthesia-General Post-Op ---
General Patient Condition Mental Status/LOC: Same as Preop Cardiovascular: Satisfactory Nausea/Vomiting: Absent Respiratory: Satisfactory Pain: Controlled Complications: Absent Post Op Complications Complications None Follow Up Care/Instructions Patient Instructions None needed. Anesthesia/Patient Condition Patient Condition Patient is doing well, no complaints, stable vital signs, no apparent adverse anesthesia problems. No complications reported per nursing. BEAN HOLLOWAY CRNA Aug 07, 2020 13:16
[2020-08-07] MEDS ORDERED: HYDR-4226 PO (14:19)
--- NOTE | 2020-08-07 14:21 | Discharge Inst-Simple/Standard ---
Discharge Inst-Standard Discharge Medications New, Converted or Re-Newed RX: RX on Chart Patient Instructions/Follow Up Plan of Care/Instructions/FU: 2 weeks Jaylen Activity as Tolerated: No Discharge Diet: Regular Diet Other Inst to Patient Follow up Appt: Make appointment for [address] York office tomorrow for wound care. Keep appointment with wound care. Instructions: No strenuous activity. May shower in 24 hours, no tub bath or soaking. Use incentive spirometer at home as directed. No Smoking Skin/Wound Care: Irrigate and pack wound daily and as needed. Symptoms to Report: Appetite Changes, Extremity Discoloration, Numbness/Tingling, Swelling Incre ased, Bleeding Excessive, Eyesight Changes, Pain Increased, Urine Color Change, Constipation(Persistent), Fever over 101 degree F, Pain/Pressure in chest, Urinating Difficulty, Cough Up/Vomit Blood, Heart Beat Irreg/Pounding, Pain/Pressure in jaw, Vaginal Bleeding Increase, Cramps in feet or legs, Lightheadedness, Pain/Pressure in shoulder, Diarrhea(Persistent), Memory Changes Suddenly, Questions/Concerns, Weight gain consecutive days, Dizziness/Fainting, Nausea/Vomiting, Shortness of Breath, Weight gain over 2 pounds If questions or concerns contact your physician Or seek help at emergency department. LOBITO YORK DO Aug 07, 2020 14:21
[2020-08-07] MEDS ORDERED: GABA300S2 PO (14:50)
[2020-08-07] MEDS ORDERED: VIT1CAPS5 PO (14:50)
[2020-08-07] MEDS ORDERED: L.AC1CAP6 PO (14:50)
[2020-08-07] MEDS ORDERED: GLUC-144 PO (14:50)
[2020-08-07] MEDS ORDERED: INSU100V42 SQ (14:50)
[2020-08-07] MEDS ORDERED: LOSA100T57 PO (14:50)
[2020-08-07] MEDS ORDERED: ALBU18HF2 INH (14:50)
[2020-08-07] MEDS ORDERED: MULT-593 PO (14:50)
--- NOTE | 2020-08-08 00:54 | OPERATIVE REPORT ---
DATE OF SERVICE: 08/07/2020 PREOPERATIVE DIAGNOSIS: Melanoma in situ, right lower extremity. POSTOPERATIVE DIAGNOSIS: Melanoma in situ, right lower extremity with necrotic tissue. PROCEDURE: Reexcision right lower extremity melanoma in situ and debridement of necrotic tissue, skin and subcutaneous tissue, 4.3 x 7 cm. SURGEON: Lobito York D.O. ANESTHESIA: General. ESTIMATED BLOOD LOSS: Minimal. COMPLICATIONS: None. INDICATIONS: The patient is a 65-year-old female who underwent excision of melanoma in situ. Needing a larger margin and wound is necrotic as well. The patient was discussed risks and benefits of procedure and wished to proceed with procedure. Consent was signed in the chart. DESCRIPTION OF PROCEDURE: The patient was taken to the operating suite. She was prepped and draped in sterile fashion. Surgical pause was performed. Local anesthetic was infiltrated around the wound. The incision was made with a 15 blade scalpel, cutting through skin and removing the previous incision and all of the necrotic tissue. The skin was then elevated and cautery used to dissect down through the subcutaneous tissue until the entire wound was opened. Overall, dimensions were 4.3 x 7 cm of skin and subcutaneous tissue along with removing all the necrotic skin. The wound was then irrigated with copious amounts of irrigation and hemostasis was achieved. The wound was then packed with iodoform. Sterile bandage was applied. The patient tolerated procedure well without any complications. She was taken to recovery room in stable condition. Job ID: [id number] DocumentID: [id number] Dictated Date: 08/07/2020 15:40:53 Manager Electrical Date: 08/08/2020 00:53:38 Dictated By: LOBITO YORK DO
== END 2020-08-07 15:10 | disposition home or self-care (01) ==
LOC: SDC 11:30
PROVIDERS: ATTEND Surgery
DX: D03.71 Melanoma in situ of right lower limb, including hip (principal); K21.9 Gastro-esophageal reflux disease without esophagitis; E11.9 Type 2 diabetes mellitus without complications; J44.9 Chronic obstructive pulmonary disease, unspecified; G47.10 Hypersomnia, unspecified; F90.9 Attention-deficit hyperactivity disorder, unspecified type; E78.00 Pure hypercholesterolemia, unspecified; F32.9 Major depressive disorder, single episode, unspecified; I11.0 Hypertensive heart disease with heart failure; I50.30 Unspecified diastolic (congestive) heart failure; F41.9 Anxiety disorder, unspecified; M19.90 Unspecified osteoarthritis, unspecified site; Z90.710 Acquired absence of both cervix and uterus; E66.9 Obesity, unspecified; Z68.20 Body mass index [BMI] 20.0-20.9, adult; F17.210 Nicotine dependence, cigarettes, uncomplicated; Z20.828 Contact with and (suspected) exposure to other viral communicable diseases; Z79.899 Other long term (current) drug therapy; Z88.5 Allergy status to narcotic agent; Z88.8 Allergy status to other drugs, medicaments and biological substances
CPT/HCPCS: 11606; 82962; 87081; 88305; U0002; 87635

== ENCOUNTER → 2020-08-11 | Outpatient (CLI) | payer MEDICARE ==
[~2020-08-11] MED LIST changes: +ALBU18HF2 INH; +GABA300S2 PO; +HYDR-4226 PO; +INSU100V42 SQ; +L.AC1CAP6 PO; +LOSA100T57 PO; +MULT-593 PO; +VIT1CAPS5 PO
== END ==
LOC: WOUNDCARE 09:09
PROVIDERS: ATTEND Surgery
DX: E11.622 Type 2 diabetes mellitus with other skin ulcer (principal); I87.331 Chronic venous hypertension (idiopathic) with ulcer and inflammation of right lower extremity; L97.212 Non-pressure chronic ulcer of right calf with fat layer exposed; C43.71 Malignant melanoma of right lower limb, including hip; E66.01 Morbid (severe) obesity due to excess calories; Z20.828 Contact with and (suspected) exposure to other viral communicable diseases
CPT/HCPCS: 99213

== ENCOUNTER → 2020-08-18 | Outpatient (CLI) | payer MEDICARE | LOC: WOUNDCARE 09:28 | PROVIDERS: ATTEND Surgery | DX: E11.622 Type 2 diabetes mellitus with other skin ulcer (principal); I87.331 Chronic venous hypertension (idiopathic) with ulcer and inflammation of right lower extremity; L97.212 Non-pressure chronic ulcer of right calf with fat layer exposed; C43.71 Malignant melanoma of right lower limb, including hip; E66.01 Morbid (severe) obesity due to excess calories; E11.52 Type 2 diabetes mellitus with diabetic peripheral angiopathy with gangrene; Z20.828 Contact with and (suspected) exposure to other viral communicable diseases | CPT/HCPCS: 99213 ==

== ENCOUNTER 2020-12-23 07:02 | Observation (INO) | payer MEDICARE ==
[~2020-12-23] VITALS: Ht 165.1 cm; Wt 131.3 kg
[~2020-12-23 07:02] MED LIST changes: +AMLO-250 PO; -AMLO5TAB9 PO; -BUPR150T7 PO; +BUPR150T8 PO; +ESCI20TA39 PO; -ESCI20TA45 PO; -LISI10TA2 PO; +LISI10TA25 PO; +SERT-414 PO; -SERT100T8 PO; -TERC20CR VG; +TERC20CR2 VG
--- NOTE | 2020-12-23 07:40 | ED General ---
General Stated Complaint: HIGH BLOOD SUGAR Source of Information: Patient, EMS Exam Limitations: No Limitations History of Present Illness Date Seen by Provider: Dec 23, 2020 Time Seen by Provider: 07:06 Initial Comments Patient presents to the ER by EMS from home with chief complaint of altered mental status, hallucinating she had tape on her and she has had poor appetite for the past 2 to 3 days related to food not tasting well. The patient states she had a negative Covid test about a week ago by primary care Dr. Roy. She has a chronic cough and is a smoker with COPD not reliant on oxygen at baseline. She has had no fevers or chills. She did have some nausea and was given 4 mg Zofran on route which took away her nausea. She is not having any pain anywhere. She noted her blood sugars to be high and she has been holding her insulin secondary to poor appetite for the past 2 days. She does admit to some sinus congestion but no worse cough fever or any shortness of air. No known sick contacts. She stays at home for the most part. Allergies and Home Medications Allergies Coded Allergies: morphine (Verified Adverse Reaction, Mild, NAUSEA, 05/19/16) Home Medications Bupropion HCl 150 Mg Tablet.er, 150 MG PO DAILY Prescribed by: REJI ROY on 01/17/201207 Buspirone HCl 10 Mg Tablet, 10 MG PO BID Prescribed by: REJI ROY on 01/17/201207 Gabapentin 300 Mg/6 Ml Solution, 300 MG PO TID, (Reported) Hydrocodone/Acetaminophen 1 Each Tablet, 1 TAB PO Q4-6HR Prescribed by: LOBITO ALBERT on 08/07/20 1419 Insulin Aspart 100 Unit/1 Ml Vial, 16 UNIT SQ TID, (Reported) Losartan Potassium 100 Mg Tablet, 100 MG PO DAILY, (Reported) Multivitamin with Minerals 1 Each Tablet, 1 EACH PO DAILY, (Reported) Pantoprazole Sodium 40 Mg Tablet.dr, 40 MG PO DAILY Prescribed by: REJI ROY on 01/17/201207 Sucralfate 1 Gm Tablet, 1 GM PO BID Prescribed by: REJI ROY on 01/17/201207 Patient Home Medication List Home Medication List Reviewed: Yes Review of Systems Review of Systems Constitutional: No chills, No diaphoresis EENTM: No ear discharge, No ear pain Respiratory: No cough, No short of breath Cardiovascular: No chest pain, No palpitations Gastrointestinal: No abdominal pain, No nausea Genitourinary: No discharge, No dysuria Musculoskeletal: No back pain, No joint pain Skin: No pruritus, No rash All Other Systems Reviewed Negative Unless Noted: Yes Past Zdvhsfn-Qasnbs-Tgrqjx Hx Patient Social History Alcohol Use: Past History Alcohol Beverage of Choice: Whiskey Drug of Choice: PT DENIES Smoking Status: Current Everyday Smoker Type Used: Cigarettes 2nd Hand Smoke Exposure: Yes Recent Hopitalizations: No Immunizations Up To Date Tetanus Booster (TDap): Less than 5yrs PED Vaccines UTD: No Date of Pneumonia Vaccine: Jul 31, 2019 Date of Influenza Vaccine: Jul 31, 2019 Seasonal Allergies Seasonal Allergies: Yes Past Medical History Surgeries: Yes Abdominal, Section, Hysterectomy, Orthopedic Respiratory: Yes Pneumonia, COPD Currently Using CPAP: No Currently Using BIPAP: No Cardiac: Yes Hypertension Neurological: Yes Dementia 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 Disorders: No Female 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, 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 Sexually Transmitted Disease: No HIV/AIDS: No Genitourinary: No Gastrointestinal: Yes Gastroesophageal Reflux, Hiatal Hernia Musculoskeletal: Yes (LEFT TOTAL KNEE REPLACEMENT) Arthritis Endocrine: Yes Diabetes, Insulin dep HEENT: Yes Cataract Hearing Impairment: Denies Cancer: No Psychosocial: Yes ADD/ADHD, Eating Disorder, Anxiety, Depression Integumentary: Yes Psoriasis Blood Disorders: No Adverse Reaction/Blood Tranf: No Family Medical History AIDS Alcoholism Arthritis Asthma Cataracts Coronary thrombosis Diabetes mellitus Drug abuse Glaucoma Psychosocial problem Respiratory disorder No Family History of: Bremond's disease Alzheimer's disease Aphasia Cancer of mouth Cardiovascular disease Colon cancer Completed stroke Congenital disease Congenital heart disease Cystic fibrosis Deafness or hearing loss Dementia Dysphasia Fibrocystic disease of breast Gastroenteritis Headache disorder Hypercholesterolemia Hypertension Infertility Kidney disease Myocardial infarction Neoplasm Not obtainable due to adoption Osteoporosis Parkinson's disease Prostate cancer Seizure disorder Severe allergy Thyroid disease Tuberculosis Visual disorder Physical Exam Vital Signs Vital Signs - First Documented 12/23/20 07:03 Temp 36.4 Pulse 64 Resp 20 B/P (MAP) 145/87 (106) Pulse Ox 92 O2 Delivery Room Air Capillary Refill : Height, Weight, BMI Height: 5'65.00" Weight: 252lbs. 14.0oz. 114.318476bz; 20.91 BMI Method:Stated General Appearance: No Apparent Distress, WD/WN Eyes: Bilateral Eye Normal Inspection, Bilateral Eye PERRL, Bilateral Eye EOMI HEENT: PERRL/EOMI, TMs Normal, Normal ENT Inspection, Pharynx Normal; No Moist Mucous Membranes Neck: Full Range of Motion, Normal Inspection Respiratory: Lungs Clear, No Accessory Muscle Use, Decreased Breath Sounds, Respiratory Distress (Mild with oxygen saturations 90 to 92% at rest. Chronic) Cardiovascular: Regular Rate, Rhythm, No Murmur, Normal Peripheral Pulses Gastrointestinal: Normal Bowel Sounds (Quiescent), No Organomegaly, Non Tender, Soft Extremity: Normal Capillary Refill, Normal Inspection, No Pedal Edema Neurologic/Psychiatric: Alert, Oriented x3, No Motor/Sensory Deficits, Normal Mood/Affect, metaphysician II-XII Norm as Tested Skin: Normal Color, Warm/Dry Progress/Results/Core Measures Suspected Sepsis SIRS Temperature: Pulse: Respiratory Rate: Laboratory Tests 12/23/20 07:15: White Blood Count 10.1 Blood Pressure / Mean: Laboratory Tests 12/23/20 07:15: Creatinine 0.95, Platelet Count 191, Total Bilirubin 0.5 Results/Orders Lab Results Laboratory Tests Test 12/23/20 07:10 12/23/20 07:15 12/23/20 07:38 12/23/20 08:15 Range/Units Coronavirus 2019 ([facility]) Negative Negative White Blood Count 10.1 4.3-11.0 10^3/uL Red Blood Count 5.14 H 3.80-5.11 10^6/uL Hemoglobin 14.7 11.5-16.0 g/dL Hematocrit 44 35-52 % Mean Corpuscular Volume 86 80-99 fL Mean Corpuscular Hemoglobin 29 25-34 pg Mean Corpuscular Hemoglobin Concent 33 32-36 g/dL Red Cell Distribution Width 13.4 10.0-14.5 % Platelet Count 191 130-400 10^3/uL Mean Platelet Volume 9.5 9.0-12.2 fL Immature Granulocyte % (Auto) 1 % Neutrophils (%) (Auto) 81 H 42-75 % Lymphocytes (%) (Auto) 12 12-44 % Monocytes (%) (Auto) 5 0-12 % Eosinophils (%) (Auto) 1 0-10 % Basophils (%) (Auto) 1 0-10 % Neutrophils # (Auto) 8.2 H 1.8-7.8 10^3/uL Lymphocytes # (Auto) 1.2 1.0-4.0 10^3/uL Monocytes # (Auto) 0.5 0.0-1.0 10^3/uL Eosinophils # (Auto) 0.1 0.0-0.3 10^3/uL Basophils # (Auto) 0.1 0.0-0.1 10^3/uL Immature Granulocyte # (Auto) 0.1 0.0-0.1 10^3/uL Sodium Level 132 L 135-145 MMOL/L Potassium Level 4.4 3.6-5.0 MMOL/L Chloride Level 93 L 98-107 MMOL/L Carbon Dioxide Level 28 21-32 MMOL/L Anion Gap 11 5-14 MMOL/L Blood Urea Nitrogen 15 7-18 MG/DL Creatinine 0.95 0.60-1.30 MG/DL Estimat Glomerular Filtration Rate 59 BUN/Creatinine Ratio 16 Glucose Level 386 H 70-105 MG/DL Calcium Level 9.1 8.5-10.1 MG/DL Corrected Calcium 9.4 8.5-10.1 MG/DL Total Bilirubin 0.5 0.1-1.0 MG/DL Aspartate Amino Transf (AST/SGOT) 11 5-34 U/L Alanine Aminotransferase (ALT/SGPT) 10 0-55 U/L Alkaline Phosphatase 145 H 40-136 U/L C-Reactive Protein High Sensitivity 3.71 H 0.00-0.50 MG/DL Total Protein 6.7 6.4-8.2 GM/DL Albumin 3.6 3.2-4.5 GM/DL Blood Gas Puncture Site RR Blood Gas Patient Temperature 36.4 Arterial Blood pH 7.41 7.37-7.43 Arterial Blood Partial Pressure CO2 47 H 35-45 MMHG Arterial Blood Partial Pressure O2 61 L 79-93 MMHG Arterial Blood HCO3 29 H 23-27 MMOL/L Arterial Blood Total CO2 30.8 21.0-31.0 MMOL/L Arterial Blood Oxygen Saturation 91 L 94-100 % Arterial Blood Base Excess 4.7 H -2.5-2.5 MMOL/L Pavan Test YES-POS Blood Gas Ventilator Setting NO Blood Gas Inspired Oxygen RA Urine Color YELLOW Urine Clarity CLEAR Urine pH 7.0 5-9 Urine Specific [place] 1.010 L 1.016-1.022 Urine Protein NEGATIVE NEGATIVE Urine Glucose (UA) 3+ H NEGATIVE Urine Ketones NEGATIVE NEGATIVE Urine Nitrite NEGATIVE NEGATIVE Urine Bilirubin NEGATIVE NEGATIVE Urine Urobilinogen 0.2 < = 1.0 MG/DL Urine Leukocyte Esterase NEGATIVE NEGATIVE Urine RBC (Auto) NEGATIVE NEGATIVE Urine RBC NONE /HPF Urine WBC RARE /HPF Urine Crystals NONE /LPF Urine Bacteria NEGATIVE /HPF Urine Casts NONE /LPF Urine Mucus NEGATIVE /LPF Urine Culture Indicated NO My Orders Orders - MARIO GARCIA Arterial Blood Gas (12/23/20 07:32) Cbc With Automated Diff (12/23/20 07:32) Comprehensive Metabolic Panel (12/23/20 07:32) Hs C Reactive Protein (12/23/20 07:32) Ua Culture If Indicated (12/23/20 07:32) Ct Head Wo (12/23/20 07:32) Covid 19 Inhouse Test (12/23/20 07:32) Ed Iv/Invasive Line Start (12/23/20 07:32) Ns Iv 1000 Ml (Sodium Chloride 0.9%) (12/23/20 07:45) Chest 1 View, Ap/Pa Only (12/23/20 07:32) Vital Signs/I&O 12/23/20 07:03 Temp 36.4 Pulse 64 Resp 20 B/P (MAP) 145/87 (106) Pulse Ox 92 O2 Delivery Room Air Capillary Refill : Progress Note #1: Time: 07:50 Progress Note Delirium likely related to DKA and possibly some other underlying issue. With her history of COPD will get an ABG, chest x-ray labs and a urine by straight cath. She says she has had decreased sense of taste for the past 2 or 3 days but had a negative Covid screen last week. We will go ahead and screen her for Covid today and if it is negative we will take her off precautions. We are going to give her a second liter of fluids and plan to admit for hyperglycemia. CT head for altered mental status however it is waxing and waning and seems to have improved after EMS gave her some IV fluids so it is likely related to her DKA. Progress Note #2: Time: 09:04 Progress Note No evidence of DKA. ABG shows chronic COPD. If she shows any evidence of acute respiratory distress then we would put some oxygen on her. It is possible her delirium could be from hypoxia related to her COPD however that is more likely chronic. The most likely source of her delirium is hyponatremia and hyperglycemia causing dehydration. She improved after receiving IV fluids and has not had any delirium since. Diagnostic Imaging Diagonstic Imaging: Xray Plain Films/CT/US/NM/MRI: chest Comments [facility] [place], [place] NAME: JANEEN MAC [facility] REC#: [id number] PT STATUS: REG ER : 1955 PHYSICIAN: MARIO GARCIA MD ADMIT DATE: 12/23/20/ER Draft Date of Exam:12/23/20 CHEST 1 VIEW, AP/PA ONLY INDICATION: Hyperglycemia and altered mental status Portable AP view of the chest is obtained. Comparison is made to the study of 01/15/2020. There is suboptimal inspiration with basilar atelectasis, greater on the right. No pneumothorax or consolidation is identified. There is no evidence of significant pleural fluid. IMPRESSION: Basilar atelectasis, greater on the right. Otherwise, no definite acute abnormality or adverse change is detected. Dictated on workstation # [id number] Dict: 12/23/20 0840 Trans: 12/23/20 0844 LEEANN [id number] Interpreted by: KHAI NATH MD Electronically signed by: Reviewed: Reviewed by Me Diagonstic Imaging: CT Plain Films/CT/US/NM/MRI: head Comments NAME: JANEEN MAC [facility] REC#: [id number] PT STATUS: REG ER : 1955 PHYSICIAN: MARIO GARCIA MD ADMIT DATE: 12/23/20/ER Draft Date of Exam:12/23/20 CT HEAD WO PROCEDURE: CT head without contrast. TECHNIQUE: Multiple contiguous axial images were obtained through the brain without the use of intravenous contrast. Auto Exposure Controls were utilized during the CT exam to meet ALARA standards for radiation dose reduction. INDICATION: Altered mental status. COMPARISON: CT head without contrast 01/19/2018. FINDINGS: No intracranial hemorrhage, mass effect, hydrocephalus, or extra-axial fluid collections. No CT evidence of an acute territorial infarction. Chronic lacunar infarcts in the left insula. Osseous structures are intact. Paranasal sinuses are clear. Right mastoid effusion. IMPRESSION: 1. No acute intracranial CT findings. 2. Nonspecific right mastoid effusion. Dictated on workstation # [id number] Dict: 12/23/2043 Trans: 12/23/20 0853 [id number] Interpreted by: JOHNIE COTTON MD Electronically signed by: Reviewed: Reviewed by Me Departure Communication (Admissions) Time/Spoke to Admitting Phy: 09:05 Discussed the case with Dr. Shah and she agrees to observe the patient for delirium secondary to hyponatremia dehydration and hyperglycemia. Impression Primary Impression: Hyperglycemia Additional Impressions: Delirium due to another medical condition Hyponatremia Dehydration Disposition: ADMITTED INPATIENT Condition: Stable Admissions Decision to Admit Reason: Admit from ER (General) Decision to Admit/Date: Dec 23, 2020 Time/Decision to Admit Time: 09:00 Departure-Patient Inst. Referrals: REJI ROY MD (PCP/Family) Primary Care Physician MARIO GARCIA Dec 23, 2020 07:40
[2020-12-23] MEDS ORDERED: NS IV 1000 ML 1,000 ML IV SCH (07:45)
[2020-12-23 07:46] LABS: ALBUMIN 3.6 GM/DL (3.2-4.5)
[2020-12-23 07:47] LABS: POTASSIUM 4.4 MMOL/L (3.6-5.0)
[2020-12-23 07:47] LABS: ABG BASE EXCESS 4.7 MMOL/L (-2.5-2.5); ABG OXYGEN SATURATION 91 % (94-100); ABG PCO2 47 MMHG (35-45); ABG PH 7.41 (7.37-7.43); ABG PO2 61 MMHG (79-93); ABG TCO2 30.8 MMOL/L (21.0-31.0)
[2020-12-23 07:48] LABS: CALCIUM 9.1 MG/DL (8.5-10.1)
[2020-12-23 07:49] LABS: BASOPHILS # (AUTO) 0.1 10^3/uL (0.0-0.1); BASOPHILS % (AUTO) 1 % (0-10); EOSINOPHILS # (AUTO) 0.1 10^3/uL (0.0-0.3); EOSINOPHILS % (AUTO) 1 % (0-10); HEMATOCRIT 44 % (35-52); HEMOGLOBIN 14.7 g/dL (11.5-16.0); LYMPHOCYTES # (AUTO) 1.2 10^3/uL (1.0-4.0); LYMPHOCYTES % (AUTO) 12 % (12-44); MEAN CORPUSCULAR HEMOGLOBIN 29 pg (25-34); MEAN CORPUSCULAR HGB CONC 33 g/dL (32-36); MEAN CORPUSCULAR VOLUME 86 fL (80-99); MEAN PLATELET VOLUME 9.5 fL (9.0-12.2); MONOCYTES # (AUTO) 0.5 10^3/uL (0.0-1.0); MONOCYTES % (AUTO) 5 % (0-12); NEUTROPHILS # (AUTO) 8.2 10^3/uL (1.8-7.8); NEUTROPHILS % (AUTO) 81 % (42-75); PLATELET COUNT 191 10^3/uL (130-400); TOTAL PROTEIN 6.7 GM/DL (6.4-8.2); WHITE BLOOD COUNT 10.1 10^3/uL (4.3-11.0)
[2020-12-23 07:49] LABS: ALLENS TEST YES-POS; INSPIRED O2 RA; PATIENT TEMP 36.4; VENTILATOR NO
[2020-12-23 07:51] LABS: BILIRUBIN,TOTAL 0.5 MG/DL (0.1-1.0)
[2020-12-23 07:53] LABS: CREATININE SERUM 0.95 MG/DL (0.60-1.30)
[2020-12-23 08:36] LABS: BILIRUBIN,URINE NEGATIVE (NEGATIVE); CLARITY,URINE CLEAR; COLOR,URINE YELLOW; GLUCOSE, URINE (UA) 3+ (NEGATIVE); KETONES,URINE NEGATIVE (NEGATIVE); LEUKOCYTE ESTERASE ,URINE NEGATIVE (NEGATIVE); NITRITE,URINE NEGATIVE (NEGATIVE); PROTEIN,URINE NEGATIVE (NEGATIVE)
--- NOTE | 2020-12-23 08:44 | Diagnostic Imaging Report ---
INDICATION: Hyperglycemia and altered mental status Portable AP view of the chest is obtained. Comparison is made to the study of 01/15/2020. There is suboptimal inspiration with basilar atelectasis, greater on the right. No pneumothorax or consolidation is identified. There is no evidence of significant pleural fluid. IMPRESSION: Basilar atelectasis, greater on the right. Otherwise, no definite acute abnormality or adverse change is detected. Dictated by: Dictated on workstation # [id number]
[2020-12-23 08:45] LABS: BACTERIA,URINE NEGATIVE /HPF; WBC,URINE RARE /HPF
--- NOTE | 2020-12-23 08:53 | Diagnostic Imaging Report ---
PROCEDURE: CT head without contrast. TECHNIQUE: Multiple contiguous axial images were obtained through the brain without the use of intravenous contrast. Auto Exposure Controls were utilized during the CT exam to meet ALARA standards for radiation dose reduction. INDICATION: Altered mental status. COMPARISON: CT head without contrast 01/19/2018. FINDINGS: No intracranial hemorrhage, mass effect, hydrocephalus, or extra-axial fluid collections. No CT evidence of an acute territorial infarction. Chronic lacunar infarcts in the left insula. Osseous structures are intact. Paranasal sinuses are clear. Right mastoid effusion. IMPRESSION: 1. No acute intracranial CT findings. 2. Nonspecific right mastoid effusion. Dictated by: Dictated on workstation # [id number]
[2020-12-23] MEDS ORDERED: inSUlin ASPART (NovoLOG) 1 UNIT/0.01 ML (CHARGE PER UNIT) SC ONE (09:30)
[2020-12-23 10:00] VITALS: BP 178/77
[2020-12-23] MEDS ORDERED: PROMETHAZINE INJ 25 MG/ML (PHENERGAN) AMP IM PRN (10:30)
[2020-12-23] MEDS: ONDANSETRON 4 MG/2 ML (SDV) Z0FRAN IVP PRN ×2 (10:32→17:46)
--- NOTE | 2020-12-23 10:46 | History & Physical-Hospitalist ---
History of Present Illness HPI/Chief Complaint CC: AMS with hyperglycemia HPI: This is a 65yoWF clinic patient of [facility] who has a h/o DM insulin dependent who presented to the ER with confusion. Elevated sugar so aggressive insulin and IVF initiated for apparent dehydration. Patient was very disheveled so nurse will give her a shower. Patient apparently just started on Seroquel in the past month and she suspects that is a factor in her condition currently so that will be stopped. Xanax has been taken a lot recently from her neighbor and she is showing signs of withdrawal. Source: patient Exam Limitations: no limitations Date Seen 12/23/20 Time Seen by a Provider: 10:30 Attending Physician Bebe Shah Holly R MD Referring Physician Date of Admission Dec 23, 2020 at 09:40 Home Medications & Allergies Home Medications Reviewed patient Home Medication Reconciliation performed by pharmacy medication reconciliations geochemical laboratory technician and/or nursing. Patients Allergies have been reviewed. Allergies Allergies Coded Allergies morphine (Verified Adverse Reaction, Mild, NAUSEA, 05/19/16) Past Mjdnfdl-Ibruym-Onuoaa Hx Past Med/Social Hx: Reviewed Nursing Past Med/Soc Hx, Reviewed and Corrections made Patient Social History Marrital Status: single Employed/Student: retired Alcohol Use: Past History Alcohol Beverage of Choice: Whiskey Recreational Drug Use: No Drug of Choice: PT DENIES Smoking Status: Current Everyday Smoker Type Used: Cigarettes 2nd Hand Smoke Exposure: Yes Recent Foreign Travel: No Contact w/other who traveled: No Recent Hopitalizations: No Recent Infectious Disease Expo: No Immunizations Up To Date Tetanus Booster (TDap): Less than 5yrs Pediatric: No Date of Pneumonia Vaccine: Jul 31, 2019 Date of Influenza Vaccine: Jul 31, 2019 Seasonal Allergies Seasonal Allergies: Yes Past Medical History Surgeries: Abdominal, Section, Hysterectomy, Orthopedic Respiratory: COPD, Pneumonia Currently Using CPAP: No Currently Using BIPAP: No Cardiac: Hypertension Neurological: Dementia 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: No Sexually Transmitted Disease: No HIV/AIDS: No Female 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 Disorders: Denies Hysterectomy, Menopausal Gastrointestinal: Gastroesophageal Reflux, Hiatal Hernia Musculoskeletal: Arthritis Endocrine: Diabetes, Insulin dep HEENT: Cataract Hearing Impairment: Denies Psychosocial: ADD/ADHD, Eating Disorder, Anxiety, Depression Skin/Integumentary: Psoriasis History of Blood Disorders: No Adverse Reaction to Blood Worthy: No Family History AIDS Alcoholism Arthritis Asthma Cataracts Coronary thrombosis Diabetes mellitus Drug abuse Glaucoma Psychosocial problem Respiratory disorder No Family History of: Sadiq's disease Alzheimer's disease Aphasia Cancer of mouth Cardiovascular disease Colon cancer Completed stroke Congenital disease Congenital heart disease Cystic fibrosis Deafness or hearing loss Dementia Dysphasia Fibrocystic disease of breast Gastroenteritis Headache disorder Hypercholesterolemia Hypertension Infertility Kidney disease Myocardial infarction Neoplasm Not obtainable due to adoption Osteoporosis Parkinson's disease Prostate cancer Seizure disorder Severe allergy Thyroid disease Tuberculosis Visual disorder Review of Systems Constitutional: see HPI, weakness Physical Exam Physical Exam Vital Signs Vital Signs - First Documented 12/23/20 12/23/20 07:03 11:42 Temp 36.4 Pulse 64 Resp 20 B/P (MAP) 145/87 (106) Pulse Ox 92 O2 Delivery Room Air FiO2 21 Capillary Refill : Less Than 3 Seconds Height, Weight, BMI Height: 5'65.00" Weight: 252lbs. 14.0oz. [id number]; 46.92 BMI Method:Stated General Appearance: No Apparent Distress, Anxious, Chronically ill Eyes: Right Eye Normal Inspection, Right Eye PERRL HEENT: PERRL/EOMI, Normal ENT Inspection, Pharynx Normal, Moist Mucous Membranes Neck: Full Range of Motion, Normal Inspection, Non Tender Respiratory: Chest Non Tender, Lungs Clear, Normal Breath Sounds, No Accessory Muscle Use, No Respiratory Distress Cardiovascular: Regular Rate, Rhythm, No Edema, No Gallop, No JVD, No Murmur, Normal Peripheral Pulses Gastrointestinal: Normal Bowel Sounds, No Organomegaly, No Pulsatile Mass, Non Tender, Soft Back: Normal Inspection, No CVA Tenderness, No Vertebral Tenderness Extremity: Normal Capillary Refill, Normal Inspection, Normal Range of Motion, Non Tender, No Calf Tenderness, No Pedal Edema Neurologic/Psychiatric: Alert, Oriented x3, No Motor/Sensory Deficits, Normal Mood/Affect Skin: Normal Color, Warm/Dry Lymphatic: No Adenopathy Results Results/Procedures Labs Laboratory Tests 12/23/20 07:15 Patient resulted labs reviewed. Assessment/Plan Admission Diagnosis Assessment: AMS Hyperglycemia Dehydration Depression Benzo overuse DM Plan: Supportive care Hopper Shower Home meds Hold Seroquel Admission Status: Observation Diagnosis/Problems Diagnosis/Problems (1) Confusion (2) Benzodiazepine withdrawal (3) Dehydration (4) Diabetes mellitus BEBE SHAH DO Dec 23, 2020 10:46
[2020-12-23] MEDS: NS IV 1000 ML 1,000 ML IV SCH ×2 (11:14→17:47)
[2020-12-23 11:42] VITALS: BP 145/87
[2020-12-23 12:00] VITALS: BP 164/95
[2020-12-23] MEDS: inSUlin ASPART (NovoLOG) 1 UNIT/0.01 ML (CHARGE PER UNIT) SC SCH ×2 (13:47→21:18)
[2020-12-23] MEDS: RT-ALBUTEROL/IPRATROPIUM 3 ML (DUONEB) VIAL INH SCH ×3 (15:32→21:47)
[2020-12-23 16:00] VITALS: BP 145/79
[2020-12-23] MEDS ORDERED: RT-ALBUTEROL/IPRATROPIUM 3 ML (DUONEB) VIAL INH PRN (16:00)
[2020-12-23] MEDS ORDERED: GBPN600T PO (16:14)
[2020-12-23] MEDS ORDERED: INSU100I32 SC (16:14)
[2020-12-23] MEDS ORDERED: INSU100I14 SC (16:14)
[2020-12-23] MEDS ORDERED: QUET150T3 PO (16:14)
[2020-12-23] MEDS ORDERED: IBUP-2185 PO (16:14)
[2020-12-23] MEDS ORDERED: OMEP40CA27 PO (16:14)
[2020-12-23] MEDS ORDERED: BUSP30TA2 PO (16:14)
[2020-12-23] MEDS ORDERED: BUPR300T98 PO (16:14)
[2020-12-23] MEDS ORDERED: BUPR150T8 PO (16:14)
[2020-12-23] MEDS ORDERED: LUTE40CA PO (16:18)
[2020-12-23] MEDS: LORazepam INJ 2 MG/ML (ATIVAN) VIAL IVP PRN (17:46)
[2020-12-23 20:00] VITALS: BP 141/89
[2020-12-23] MEDS ORDERED: NON-FORMULARY MEDICATION 1 EA EA (Ibuprofen 400 MG) PO PRN (20:15)
[2020-12-23] MEDS ORDERED: IBUPROFEN TABLET 200 MG TAB PO PRN (20:30)
[2020-12-23] MEDS ORDERED: NON-FORMULARY MEDICATION 1 EA EA (Buspirone HCl 30 MG) PO SCH (21:00)
[2020-12-23] MEDS ORDERED: INSULIN DEGLUDEC 60 UNIT SC SCH (21:00)
[2020-12-23] MEDS: GABAPENTIN 600 MG (NEURONTIN) TAB PO SCH (21:08)
[2020-12-23] MEDS: busPIRone 15 MG (BUSPAR) TABLET PO SCH (21:08)
[2020-12-24] VITALS: BP 171/71
[2020-12-24] MEDS: NS IV 1000 ML 1,000 ML IV SCH ×2 (00:05→02:13)
[2020-12-24] MEDS: LORazepam INJ 2 MG/ML (ATIVAN) VIAL IVP PRN ×2 (01:50→11:15)
[2020-12-24] MEDS: RT-ALBUTEROL/IPRATROPIUM 3 ML (DUONEB) VIAL INH SCH ×4 (01:54→14:49)
[2020-12-24 03:50] VITALS: BP 167/70
[2020-12-24 05:34] LABS: BASOPHILS % (AUTO) 0 % (0-10); EOSINOPHILS # (AUTO) 0.1 10^3/uL (0.0-0.3); EOSINOPHILS % (AUTO) 0 % (0-10); HEMATOCRIT 42 % (35-52); HEMOGLOBIN 13.7 g/dL (11.5-16.0); LYMPHOCYTES # (AUTO) 1.9 10^3/uL (1.0-4.0); LYMPHOCYTES % (AUTO) 17 % (12-44); MEAN CORPUSCULAR HEMOGLOBIN 29 pg (25-34); MEAN CORPUSCULAR HGB CONC 33 g/dL (32-36); MEAN CORPUSCULAR VOLUME 87 fL (80-99); MEAN PLATELET VOLUME 9.3 fL (9.0-12.2); MONOCYTES # (AUTO) 0.7 10^3/uL (0.0-1.0); MONOCYTES % (AUTO) 6 % (0-12); NEUTROPHILS # (AUTO) 8.6 10^3/uL (1.8-7.8); NEUTROPHILS % (AUTO) 76 % (42-75); PLATELET COUNT 202 10^3/uL (130-400); WHITE BLOOD COUNT 11.4 10^3/uL (4.3-11.0)
[2020-12-24 05:47] LABS: ALBUMIN 3.5 GM/DL (3.2-4.5); CHLORIDE 99 MMOL/L (98-107); POTASSIUM 3.6 MMOL/L (3.6-5.0); SODIUM 134 MMOL/L (135-145)
[2020-12-24 05:48] LABS: CALCIUM 8.3 MG/DL (8.5-10.1)
[2020-12-24 05:49] LABS: GLUCOSE 249 MG/DL (70-105)
[2020-12-24 05:50] LABS: TOTAL PROTEIN 6.5 GM/DL (6.4-8.2)
[2020-12-24 05:51] LABS: BILIRUBIN,TOTAL 0.3 MG/DL (0.1-1.0); CARBON DIOXIDE 27 MMOL/L (21-32)
[2020-12-24 05:53] LABS: ALKALINE PHOSPHATASE 127 U/L (40-136); CREATININE SERUM 0.83 MG/DL (0.60-1.30); GFR ESTIMATED > 60
[2020-12-24 05:54] LABS: BUN/CREATININE RATIO 16
[2020-12-24 05:56] LABS: ALANINE AMINOTRANSFERASE 9 U/L (0-55)
[2020-12-24] MEDS ORDERED: buPROPion SR 150 MG (WELLBUTRIN SR) TAB PO SCH ×2 (07:00→19:00)
[2020-12-24] MEDS ORDERED: MULTIVIT W/MINERALS TAB (THERAGRAN M) PO SCH (07:00)
[2020-12-24 08:00] VITALS: BP 164/80
[2020-12-24] MEDS: busPIRone 15 MG (BUSPAR) TABLET PO SCH (08:56)
[2020-12-24] MEDS: GABAPENTIN 600 MG (NEURONTIN) TAB PO SCH ×2 (08:57→14:46)
[2020-12-24] MEDS: inSUlin ASPART (NovoLOG) 1 UNIT/0.01 ML (CHARGE PER UNIT) SC SCH ×2 (08:57→11:16)
[2020-12-24] MEDS ORDERED: buPROPion XL 150 MG (WELLBUTRIN XL) NON-FORM PO SCH (09:00)
[2020-12-24] MEDS ORDERED: LACTOBACILLUS ACIDOPHILUS (PROBIOTIC) CAPSULE PO SCH (09:00)
[2020-12-24] MEDS ORDERED: LOSARTAN 100 MG (COZAAR) TABLET PO SCH (09:00)
[2020-12-24] MEDS ORDERED: NON-FORMULARY MEDICATION 1 EA EA (Lutein 40 MG) PO SCH (09:00)
[2020-12-24] MEDS ORDERED: NON-FORMULARY MEDICATION 1 EA EA (Bupropion HCl (Bupropion Xl) 300 MG) PO SCH (09:00)
[2020-12-24] MEDS ORDERED: NON-FORMULARY MEDICATION 1 EA EA (L.acidoph & Paracasei,B.lactis (Probiotic) 1 EACH) PO SCH (09:00)
[2020-12-24] MEDS ORDERED: PANTOPRAZOLE 40 MG (PROTONIX) TAB PO SCH (09:00)
[2020-12-24] MEDS ORDERED: INSULIN ASPART 16 UNIT SC SCH (09:00)
[2020-12-24] MEDS ORDERED: NON-FORMULARY MEDICATION 1 EA EA (Omeprazole 40 MG) PO SCH (09:00)
[2020-12-24] MEDS ORDERED: LORA-404 PO (11:11)
--- NOTE | 2020-12-24 11:13 | D/C HH Face to Face Order ---
D/C Face to Face Orders Reconcile Patient Problems Problems Reviewed?: Yes Instructions for Patient Home Health Patient Instructions/FollowUp: [facility] 1 week Physician to follow Patient: [facility] Discharge Diet for Home: ADA Diet Patient Problems: AMS Patient Data-Allergies,Ht & Wt Patient Allergies: Coded Allergies: morphine (Verified Adverse Reaction, Mild, NAUSEA, 05/19/16) Height (Feet): 5 Height (Inches): 65.00 Weight (Pounds): 252 Weight (Ounces): 14.0 Home Health Need/Face to Face Date of Face to Face: Dec 24, 2020 Clinical Findings: Generalized weakness and fatigue, Instability, Muscle weakness I have seen Pt [id number]: Yes Discharged To: Home Diagnosis/Conditions: AMS Patient is Homebound due to: CognItive deficits, Jessa fall risk due to instabilty, Muscle weakness Homebound Status Due to the above stated illness, injury or surgical procedure (medical condition or diagnosis) and associated clinical findings, the patient is homebound because of his/her inability to leave home except with aid of a supportive device and/or person AND leaving the home requires a considerable and taxing effort or is medically contraindicated. Pt req the following assistanc: Walker Home Health Nursing Orders Home Health Services Order: Nursing Services, Expenditure Requisition Clerk-Evaluate & Treat, Physical Therapy-Evaluate & Treat Home Health Infusion Therapy Line Start Date: Dec 23, 2020 Certify Stmt I certify that this patient is under my care and that I, a nurse practitioner or a physician; a computer assistant working with me, had a face to face encounter that - meets the physician face to face encounter requirements with this patient as dated. HERMILA SWAIN DO Dec 24, 2020 11:13
--- NOTE | 2020-12-24 11:26 | Discharge Summary ---
Discharge Summary Hospital Course Was the Problem List Reviewed?: Yes Problems/Dx: (1) Confusion (2) Benzodiazepine withdrawal (3) Dehydration (4) Diabetes mellitus Hospital Course Date of Admission: Dec 23, 2020 at 09:40 Admission Diagnosis : Family Physician/Provider: Courtney Mendes MD Date of Discharge: 12/24/20 Discharge Diagnosis: AMS, DM OOC, dehydration, benzo dependency Hospital Course: Hospital Course: Pt had a short observation status, she came in with altered me ntal status and she thought it was from the Seroquel that she has been on for just a couple of weeks so that was stopped. I did initiate IV fluids for dehydration. Hyperglycemia improved with the restarting of her insulin and she will have follow up with her PCP and Dr. Palomino psychiatry. Labs and Pending Lab Test: Laboratory Tests 12/23/20 15:28: Glucometer 228H 12/23/20 20:28: Glucometer 200H 12/24/20 05:21: Glucometer 256H 12/24/20 05:28: White Blood Count 11.4H, Red Blood Count 4.80, Hemoglobin 13.7, Hematocrit 42, Mean Corpuscular Volume 87, Mean Corpuscular Hemoglobin 29, Mean Corpuscular Hemoglobin Concent 33, Red Cell Distribution Width 13.5, Platelet Count 202, Mean Platelet Volume 9.3, Immature Granulocyte % (Auto) 1, Neutrophils (%) (Auto) 76H, Lymphocytes (%) (Auto) 17, Monocytes (%) (Auto) 6, Eosinophils (%) (Auto) 0, Basophils (%) (Auto) 0, Neutrophils # (Auto) 8.6H, Lymphocytes # (Auto) 1.9, Monocytes # (Auto) 0.7, Eosinophils # (Auto) 0.1, Basophils # (Auto) 0.0, Immature Granulocyte # (Auto) 0.1, Sodium Level 134L, Potassium Level 3.6, Chloride Level 99, Carbon Dioxide Level 27, Anion Gap 8, Blood Urea Nitrogen 13, Creatinine 0.83, Estimat Glomerular Filtration Rate > 60, BUN/Creatinine Ratio 16, Glucose Level 249H, Calcium Level 8.3L, Corrected Calcium 8.7, Total Bilirubin 0.3, Aspartate Amino Transf (AST/SGOT) 10, Alanine Aminotransferase (ALT/SGPT) 9, Alkaline Phosphatase 127, Total Protein 6.5, Albumin 3.5 12/24/20 11:13: Glucometer 237H Home Meds Active Ativan (Lorazepam) 0.5 Mg Tablet 0.5 Mg PO BID PRN Reported Lutein 40 Mg Capsule 40 Mg PO DAILY Ibuprofen 200 Mg Capsule 400-600 Mg PO Q8H PRN Bupropion Xl (Bupropion HCl) 300 Mg Tab.er.24h 300 Mg PO DAILY TAKES 150MG +300MG TO EQUAL 450MG DAILY Bupropion Xl (Bupropion HCl) 150 Mg Tab.er.24h 150 Mg PO DAILY TAKES 150MG +300MG TO EQUAL 450MG DAILY Buspirone HCl 30 Mg Tablet 30 Mg PO BID Gabapentin 600 Mg Tablet 600 Mg PO TID Omeprazole 40 Mg Capsule.dr 40 Mg PO DAILY Tresiba Flextouch U-100 (Insulin Degludec) 100 Unit/1 Ml Insuln.pen 60 Units SC HS Quetiapine Fumarate ER (Quetiapine Fumarate) 150 Mg Tab.er.24h 150 Mg PO HS Novolog Flexpen (Insulin Aspart) 300 Units/3 Ml Solution 16 Units SC TIDPC Losartan Potassium 100 Mg Tablet 100 Mg PO DAILY Multiple Vitamin (Multivitamin with Minerals) 1 Each Tablet 1 Each PO DAILY Osteo Bi-Flex Caplet (Glucosamine HCl/Chondr Bentley A Na) 1 Each Tablet 1 Each PO DAILY Preservision Areds Softgel (Vit A/C/E/Zinc/Co) 1 Cap Capsule 1 Cap PO DAILY Probiotic (L.acidoph & Paracasei,B.lactis) 1 Each Capsule 1 Each PO DAILY Assessment/Pt Instructions [facility] 1 week Discharge Planning: <30 minutes discharge planning Discharge Physical Examination Vital Signs Vital Signs Date Time Temp Pulse Resp B/P (MAP) Pulse Ox O2 Delivery O2 Flow Rate FiO2 12/24/20 10:47 92 Room Air 12/24/20 08:00 36.8 66 18 164/80 (108) 12/23/20 11:42 21 General Appearance: No Apparent Distress, WD/WN, Chronically ill Respiratory: Lungs Clear Cardiovascular: Regular Rate, Rhythm Neurologic/Psychiatric: Alert, Oriented x3, No Motor/Sensory Deficits, Normal Mood/Affect Allergies: Coded Allergies: morphine (Verified Adverse Reaction, Mild, NAUSEA, 05/19/16) Discharge Summary Date of Admission Dec 23, 2020 at 09:40 Date of Discharge Discharge Date: Dec 24, 2020 Admission Diagnosis Assessment: AMS Hyperglycemia Dehydration Depression Benzo overuse DM Plan: Supportive care Hopper Shower Home meds Hold Seroquel Discharge Diagnosis (1) Confusion (2) Benzodiazepine withdrawal (3) Dehydration (4) Diabetes mellitus HERMILA SWAIN DO Dec 24, 2020 11:26
--- NOTE | 2020-12-24 11:52 | Physical Therapy Evaluation ---
PT Evaluation-General Medical Diagnosis Admission Date Dec 23, 2020 at 09:40 Medical Diagnosis: delerium, hyperglycemia, dehydration Onset Date: Dec 23, 2020 Therapy Diagnosis Therapy Diagnosis: impaired mobility, strength, endurance Height/Weight Height (Feet): 5 Height (Inches): 65.00 Weight (Pounds): 252 Weight (Ounces): 14.0 Precautions Precautions/Isolations: Fall Prevention, Standard Precautions Referral Physician: Bebe Shah DO Reason for Referral: Evaluation/Treatment Medical History Pertinent Medical History: Alcoholism, Arthritis, COPD, DM, GERD, HTN, Smoking Reviewed History: Yes Social History Home: Single Level Current Living Status: Alone Entry Into Home: Stairs With Railing PT Steps Into Home: 6 Prior Prior Level of Function SCALE: Activities may be completed with or without assistive devices. 0-Suvbfqbrdl-rqlgluu completes the activity by him/herself with no assistance from a helper. 5-Set-up or Clean-up Assistance-helper sets up or cleans up; patient completes activity. [place] assists only prior to or following the activity. 4-Supervision or Touching Assistance-helper provides verbal cues and/or touching/steadying and/or contact guard assistance as patient completes activity. Assistance may be provided throughout the activity or intermittently. 3-Partial/Moderate Assistance-helper does LESS THAN HALF the effort. [place] lifts, holds or supports trunk or limbs, but provides less than half the effort. 2-Substantial/Maximal Assistance-helper does MORE THAN HALF the effort. [place] lifts or holds trunk or limbs and provides more than half the effort. 3-Uabzcmyeb-hrzcri does ALL the effort. Patient does none of the effort to complete the activity. Or, the assistance of 2 or more helpers is required for the patient to complete the activity. If activity was not attempted, code reason: 7-Patient Refused. 9-Not Applicable-not attempted and the patient did not perform the activity before the current illness, exacerbation or injury. 10-Not Attempted due to Environmental Limitations-(lack of equipment, weather restraints, etc.). 88-Not Attempted due to Medical Conditions or Safety Concerns. Bed Mobility: 6 Transfers (B,C,W/C): 6 Gait: 6 Stairs: 6 Indoor Mobility (Ambulation): Independent Stairs: Independent Patient states she has a rolling walker but doesn't use it very much PT Evaluation-Current Subjective Patient in recliner pre tx, agrees to PT with encouragement, very anxious, has no complaints of pain. Pt/Family Goals to be independent at home Objective Patient Orientation: Person, Place, Situation ROM/Strength ROM Lower Extremities WNL Strength Lower Extremities LLE (hip flexion 3/5, knee flexion 4+/5, knee extension 4+/5, dorsiflexion 4+/5), RLE (hip flexion 3/5, knee flexion 4/5, knee extension 4/5, dorsiflexion 4/5) Sensory Vision: Functional Hearing: Functional Sensation Right Lower Extremit: Intact Sensation Left Lower Extremity: Intact Transfers Sit to Stand (QC): 3 Chair/Zcj-ol-Umtux Xfer(QC): 4 Patient needs min assist to stand from recliner, transfers with CGA but she is very unsteady, she did not have LOB but could very easily. Gait Does the Patient Walk?: Yes Mode of Locomotion: Walk Anticipated Mode of Locomotion: Walk Walk 10 feet (QC): 4 Walk 50 ft with 2 Turns(QC): 4 Distance: 80' Gait Assistive Device: FWW Comments/Gait Description Patient ambulated strait down the hallway well but is unsteady with turning, had a couple of stumbles during turning but not a full LOB, she needs somebody with her during ambulation Balance Sitting Static: Normal Sitting Dynamic: Normal Standing Static: Fair Standing Dynamic: Fair Treatment BLE seated exercises x20 (AP, LAQ) Assessment/Needs Patient has impaired mobility, strength, endurance. Patient in recliner post tx with nurse call, phone, tray, all needs met. Patient is unsteady when turning during ambulation and transfers, needs somebody with her for that to decrease risk of falls. Rehab Potential: Fair PT Canoe Builder Goals Half-Way Goals PT Half-Way Goals Time Frame: Dec 31, 2020 Roll Left & Right (QC): 6 Sit to Lying (QC): 6 Lying-Sitting on Side/Bed(QC): 6 Sit to Stand (QC): 4 Chair/Eza-qh-Dlcqj Xfer(QC): 4 Walk 10 feet (QC): 4 Walk 50ft with 2 Turns (QC): 4 Walk 150 ft (QC): 4 PT Plan Problem List Problem List: Activity Tolerance, Functional Strength, Safety, Balance, Gait, Transfer, Bed Mobility, ROM Treatment/Plan Treatment Plan: Continue Plan of Care Treatment Plan: Bed Mobility, Education, Functional Activity Garrick, Functional Strength, Gait, Safety, Therapeutic Exercise, Transfers Treatment Duration: Dec 31, 2020 Frequency: 6 times per week Estimated Hrs Per Day: .25 hour per day Patient and/or Family Agrees t: Yes Safety Risks/Education Patient Education: Gait Training, Transfer Techniques, Correct Positioning, Safety Issues Teaching Recipient: Patient Teaching Methods: Demonstration, Discussion Response to Teaching: Reinforcement Needed Discharge Recommendations Plan Patient will perform bed mobility and transfer training, balance and endurance training, functional strengthening, stair training, gait training, and education, to improve functional mobility and independence at home. Therapy Discharge Recommendati: Scheduled Assistance, Post Acute PT Time/GCodes Time In: 1129 Time Out: 1143 Total Billed Treatment Time: 14 Total Billed Treatment 1 visit MIGUEL 14SUAD HANSON PT Dec 24, 2020 11:52
[2020-12-24 12:00] VITALS: BP 156/80
== END 2020-12-24 16:38 | disposition home health service (06) ==
LOC: EDUNIT# 07:02 → ER 07:05 → 4TH 09:40
PROVIDERS: ADMIT Internal Medicine; ATTEND Internal Medicine
DX: R41.82 Altered mental status, unspecified (principal); E11.65 Type 2 diabetes mellitus with hyperglycemia; F41.9 Anxiety disorder, unspecified; F32.9 Major depressive disorder, single episode, unspecified; F03.90 Unspecified dementia, unspecified severity, without behavioral disturbance, psychotic disturbance, mood disturbance, and anxiety; E87.1 Hypo-osmolality and hyponatremia; E86.0 Dehydration; K21.9 Gastro-esophageal reflux disease without esophagitis; I10 Essential (primary) hypertension; J44.9 Chronic obstructive pulmonary disease, unspecified; K44.9 Diaphragmatic hernia without obstruction or gangrene; J98.11 Atelectasis; G93.6 Cerebral edema; M19.90 Unspecified osteoarthritis, unspecified site; F17.210 Nicotine dependence, cigarettes, uncomplicated; F19.239 Other psychoactive substance dependence with withdrawal, unspecified; Z90.710 Acquired absence of both cervix and uterus; Z78.0 Asymptomatic menopausal state; Z79.4 Long term (current) use of insulin; Z79.1 Long term (current) use of non-steroidal anti-inflammatories (NSAID); Z79.891 Long term (current) use of opiate analgesic; Z88.5 Allergy status to narcotic agent; Z20.822 Contact with and (suspected) exposure to COVID-19; Z96.652 Presence of left artificial knee joint
CPT/HCPCS: 36410; 51702; 70450; 71045; 76937; 80053 ×2; 81000; 82805; 82962 ×2; 85025 ×2; 86141; 94640 ×3; 94760 ×2; 97162; 99285; C1751; G0378; U0002; 36415; 87635

== ENCOUNTER → 2021-01-16 | Outpatient (CLI) | payer MEDICARE ==
[~2021-01-16] MED LIST changes: +BUPR150T24 PO; -BUPR150T8 PO; +BUPR300T98 PO; +BUSP30TA2 PO; +GBPN600T PO; +IBUP-2185 PO; +INSU100I14 SC; +LORA-404 PO; +LUTE40CA PO; +QUET150T3 PO
--- NOTE | 2021-01-16 15:57 | Diagnostic Imaging Report ---
INDICATION: Fall with injury to the left breast with a left breast lump. Correlation is made with prior mammogram from 02/22/2017. 2-D and 3-D bilateral diagnostic mammography was performed with CAD. Marker was placed in the area of palpable abnormality in the lower inner left breast. The breasts are heterogeneously dense, limiting the sensitivity of mammography. No mass or malignant appearing microcalcifications are seen. There are benign parenchymal and vascular calcifications bilaterally. Axillae are unremarkable. IMPRESSION: BI-RADS Category 0. No mammographic features suspicious for malignancy are identified. Even so, directed sonographic interrogation of the area of lump in the lower inner left breast is recommended and will be performed today. ACR BI-RADS Category 0: Incomplete. (Needs additional imaging evaluation). Result letter will be mailed to the patient. Note: At least 10% of breast cancer is not imaged by mammography. Dictated by: Dictated on workstation # [id number]
--- NOTE | 2021-01-16 16:01 | Diagnostic Imaging Report ---
INDICATION: Lump, left breast. Sonographic interrogation of the area of palpable abnormality in the medial left breast was performed. There is a tiny area of hypoechogenicity just deep to the skin surface at the 9:00 location, 5 cm from the nipple measuring 11 mm x 4 mm x 10 mm. This may represent a small subcutaneous hematoma. Patient reportedly had recent breast trauma. No internal vascularity is seen. IMPRESSION: BI-RADS Category 2 Probable small subcutaneous hematoma at 9:00 location of the left breast, 5 cm from the nipple. The patient may return to routine annual screening mammography. ACR BI-RADS Category 2: Benign findings. Result letter will be mailed to the patient. Note: At least 10% of breast cancer is not imaged by mammography. Dictated by: Dictated on workstation # [id number]
== END ==
LOC: RAD 14:05
PROVIDERS: ATTEND Family Medicine
DX: N63.20 Unspecified lump in the left breast, unspecified quadrant (principal); S29.9XXA Unspecified injury of thorax, initial encounter; W19.XXXA Unspecified fall, initial encounter
CPT/HCPCS: 76642; 77066; G0279; 77062

== ENCOUNTER → 2021-02-03 | Outpatient (CLI) | payer MEDICARE | LOC: CARD 10:00 | PROVIDERS: ATTEND Family Medicine | DX: R60.0 Localized edema (principal) | CPT/HCPCS: 93306 ==

== ENCOUNTER 2022-03-24 06:27 | Outpatient (CLI) | payer MEDICARE ==
[~2022-03-24] VITALS: Ht 165.1 cm; Wt 127.9 kg
[~2022-03-24 06:27] MED LIST changes: +BUPR-105 PO; -BUPR150T14 PO; -DOXY100C2 PO; +DOXY100C5 PO; -LEVO500T80 PO; +LEVO500T81 PO; -OMEP40CA27 PO; +OMEP40CA6 PO
== END 2022-03-26 13:54 | disposition home or self-care (01) ==
LOC: PREOP 06:27
PROVIDERS: ATTEND Surgery
DX: Z01.818 Encounter for other preprocedural examination (principal)

== ENCOUNTER 2022-04-07 06:54 | Day surgery (SDC) | payer MEDICARE ==
[~2022-04-07] VITALS: Ht 165 cm; Wt 127.9 kg
[2022-04-07] MEDS ORDERED: LACTATED RINGERS 1,000 ML IV STA (06:59)
[2022-04-07] MEDS ORDERED: HURRICAINE EXT TUBE (BENZOCAINE) XX PRN (07:00)
[2022-04-07] MEDS ORDERED: PROPOFOL INJECTION 50 ML IV ONE (07:18)
[2022-04-07 07:19] VITALS: BP 161/78
--- NOTE | 2022-04-07 08:24 | Progress Note-Pre Operative ---
Pre-Operative Progress Note H&P Reviewed The H&P was reviewed, patient examined and no changes noted. Date Seen by Provider: Apr 07, 2022 Time Seen by Provider: 08:24 Date H&P Reviewed: Apr 07, 2022 Time H&P Reviewed: 08:24 Pre-Operative Diagnosis: change in bowel habits, gerd LOBITO ALBERT DO Apr 07, 2022 08:24
[2022-04-07 09:11] VITALS: BP 106/66
--- NOTE | 2022-04-07 09:11 | Anesthesia-General Post-Op ---
MAC Patient Condition Mental Status/LOC: Same as Preop Cardiovascular: Satisfactory Nausea/Vomiting: Absent Respiratory: Satisfactory Pain: Controlled Complications: Absent Post Op Complications Complications None Follow Up Care/Instructions Patient Instructions None needed. Anesthesiology Discharge Order Discharge Order Patient is doing well, no complaints, stable vital signs, no apparent adverse anesthesia problems. No complications reported per nursing. VENKATA HICKMAN CRNA Apr 07, 2022 09:11
[2022-04-07 10:05] VITALS: BP 148/73
--- NOTE | 2022-04-07 10:21 | Discharge Inst-Simple/Standard ---
Discharge Inst-Standard Patient Instructions/Follow Up Plan of Care/Instructions/FU: 2 weeks Jaylen Activity as Tolerated: Yes Discharge Diet: Regular Diet (high fiber) LOBITO ALBERT DO Apr 07, 2022 10:21
--- NOTE | 2022-04-07 10:27 | Progress Note-Post Operative ---
Post-Operative Progess Note Surgeon (s)/Neuropsychiatrist (s) Surgeon LOBITO ALBERT DO Neuropsychiatrist: na Pre-Operative Diagnosis change in bowel habits, gerd Post-Operative Diagnosis evidence of previous gastric surgery normal colon Procedure & Operative Findings Date of Procedure 04/07/22 Procedure Performed/Findings egd c biopsies, colonoscopy Anesthesia Type per artificial inseminator Estimated Blood Loss Estimated blood loss (mL): none Specimens/Packing Specimens Removed antrum, ge LOBITO ALBERT DO Apr 07, 2022 10:27
--- NOTE | 2022-04-07 16:51 | OPERATIVE REPORT ---
DATE OF SERVICE: 04/07/2022 PREOPERATIVE DIAGNOSES: Change in bowel habits and gastroesophageal reflux disease. POSTOPERATIVE DIAGNOSES: Evidence of previous gastric surgery. Normal colon. PROCEDURES PERFORMED: EGD with biopsies and colonoscopy. SURGEON: Lobito York DO. ANESTHESIA: Per LASER ENGINEER. ESTIMATED BLOOD LOSS: None. COMPLICATIONS: None. INDICATIONS FOR PROCEDURE: The patient is a 67-year-old female with GERD symptoms and change in bowel habits. She understands risks and benefits of procedure and wishes to proceed. Consent was signed in the chart. DESCRIPTION OF PROCEDURE: The patient was taken to the endoscopy suite and placed in the left lateral recumbent position. Timeout was performed. Scope was inserted in the mouth, down the esophagus, stomach and into the duodenum without difficulty. There were no polyps, masses or ulcerations in the duodenum. Scope was slowly retracted back to stomach, where it was further insufflated. No polyps, masses or ulcerations. Scope was retroflexed noting evidence of previous gastric surgery, unsure of the type of surgery that she had, it was for weight loss reduction, but no acute inflammatory changes or acute appearing issues. Scope was returned to its normal position, slowly withdrawn to distal esophagus. No polyps, masses or ulcerations. Biopsy of GE junction was obtained. If not noted, biopsy of the antrum was also obtained before moving back into the esophagus. Scope was then slowly retracted back until completely removed. Digital rectal exam was performed. No palpable polyps, masses or ulcerations. Scope was inserted in the rectum, advanced all the way to the cecum with minimal difficulty. Prep was adequate with lots of irrigation and suction. Scope was slowly retracted back. No polyps, masses or ulcerations in the cecum, ascending, transverse, descending and sigmoid colon. Once in the rectum, scope was retroflexed noting no other pathology. Scope was returned to its normal position, slowly withdrawn until completely removed. The patient tolerated the procedure well without any complications. She was taken to recovery room in stable condition. RECOMMENDATIONS: The patient will await biopsy results. We will need repeat colonoscopy in 10 years unless family history of colon cancer, which would then be five years or personal history of polyps. The patient will recommend high fiber diet. Any issues before that will be seen at that time. The patient will follow up in the office. Job ID: [id number] DocumentID: [id number] Dictated Date: 04/07/2022 10:32:57 Assembler Dc [employer]oke Date: 04/07/2022 16:50:15 Dictated By: LOBITO YORK DO
== END 2022-04-07 10:25 | disposition home or self-care (01) ==
LOC: ENDO 06:54
PROVIDERS: ATTEND Surgery
DX: K21.00 Gastro-esophageal reflux disease with esophagitis, without bleeding (principal); Z87.891 Personal history of nicotine dependence; E66.01 Morbid (severe) obesity due to excess calories; Z68.42 Body mass index [BMI] 45.0-49.9, adult

== ENCOUNTER 2022-08-29 23:26 | Emergency (ER) | payer MEDICARE ==
[~2022-08-29 23:26] MED LIST changes: +LEVO-55 PO; -LEVO500T81 PO
--- NOTE | 2022-08-29 23:55 | ED GI ---
General Chief Complaint: Abdominal/GI Problems Stated Complaint: NAUSEA,VOMITING,BLOOD PRESSURE 180/101 Nursing Triage Note: TO ED VIA POV AND W/C TO ROOM 5 WITH S/O. PER PT SHE HAS BEEN ILL SINCE LAST TUESDAY WITH C/O N/V/D. DENIES FEVER, COUGH, SOA. Source of Information: Patient Exam Limitations: No Limitations History of Present Illness Date Seen by Provider: Aug 29, 2022 Time Seen by Provider: 23:29 Initial Comments 67-year-old female presents emergency department today stating "I think I have a viral GI bug." She has been sick since Tuesday with nausea, vomiting and loose stools. The vomiting subsided today but she continues to be nauseated. Mr. Erickson is alert better today as well as use of Librium prior to that was having 5-6 voluminous watery stools per day. Nonbloody. No recent travel. No fevers or chills. She has diffuse abdominal cramping without any focal abdominal tenderness. Her is in the room was sick with similar symptoms last week. Allergies and Home Medications Allergies Coded Allergies: exenatide (Unverified Allergy, Unknown, 03/24/22) methylphenidate (Unverified Allergy, Unknown, 03/24/22) sulfamethoxazole (Unverified Allergy, Unknown, 03/24/22) HALLUCINATIONS trimethoprim (Unverified Allergy, Unknown, 03/24/22) HALLUCINATIONS morphine (Verified Adverse Reaction, Mild, NAUSEA, 05/19/16) Patient Home Medication List Home Medication List Reviewed: Yes Bupropion HCl (Bupropion Xl) 150 Mg Tab.er.24h, 150 MG PO DAILY, (Reported) Entered as Reported by: PRASANTH TELLO on 12/23/201613 Bupropion HCl (Bupropion Xl) 300 Mg Tab.er.24h, 300 MG PO DAILY, (Reported) Entered as Reported by: PRASANTH TELLO on 12/23/20 161 Buspirone HCl (Buspirone HCl) 30 Mg Tablet, 30 MG PO BID, (Reported) Entered as Reported by: PRASANTH TELLO on 12/23/201613 Gabapentin (Gabapentin) 600 Mg Tablet, 600 MG PO TID, (Reported) Entered as Reported by: PRASANTH TELLO on 12/23/201613 Glucosamine HCl/Chondr Bentley A Na (Osteo Bi-Flex Caplet) 1 Each Tablet, 1 EACH PO DAILY, (Reported) Entered as Reported by: ABEL FELDMAN on 08/07/201449 Ibuprofen (Ibuprofen) 200 Mg Capsule, 400-600 MG PO Q8H PRN for PAIN-MILD (1-4), (Reported) Entered as Reported by: PRASANTH TELLO on 12/23/201613 Insulin Aspart (Novolog Flexpen) 300 Units/3 Ml Solution, 16 UNITS SC TIDPC, (Reported) Entered as Reported by: PRASANTH TELLO on 12/23/201613 Insulin Degludec (Tresiba Flextouch U-100) 100 Unit/1 Ml Insuln.pen, 60 UNITS SC HS, (Reported) Entered as Reported by: PRASANTH TELLO on 12/23/201613 L.acidoph & Paracasei,B.lactis (Probiotic) 1 Each Capsule, 1 EACH PO DAILY, (Reported) Entered as Reported by: ABEL FELDMAN on 08/07/201449 Lorazepam (Ativan) 0.5 Mg Tablet, 0.5 MG PO BID PRN for ANXIETY Prescribed by: HERMILA SWAIN on 12/24/20 1111 Losartan Potassium (Losartan Potassium) 100 Mg Tablet, 100 MG PO DAILY, (Reported) Entered as Reported by: ABEL FELDMAN on 08/07/201449 Lutein (Lutein) 40 Mg Capsule, 40 MG PO DAILY, (Reported) Entered as Reported by: PRASANTH TELLO on 12/23/201617 Multivitamin with Minerals (Multiple Vitamin) 1 Each Tablet, 1 EACH PO DAILY, (Reported) Entered as Reported by: ABEL FELDMAN on 08/07/201449 Omeprazole (Omeprazole) 40 Mg Capsule.dr, 40 MG PO DAILY, (Reported) Entered as Reported by: PRASANTH TELLO on 12/23/201613 Vit A/C/E/Zinc/Co (Preservision Areds Softgel) 1 Cap Capsule, 1 CAP PO DAILY, (Reported) Entered as Reported by: ABEL FELDMAN on 08/07/201449 Review of Systems Review of Systems Constitutional: no symptoms reported EENTM: No Symptoms Reported Respiratory: No Symptoms Reported Cardiovascular: No Symptoms Reported Gastrointestinal: Abdominal Pain, Diarrhea, Nausea, Vomiting Genitourinary: No Symptoms Reported Musculoskeletal: no symptoms reported Skin: no symptoms reported Psychiatric/Neurological: No Symptoms Reported Endocrine: No Symptoms Reported Hematologic/Lymphatic: No Symptoms Reported Past Oycjtfc-Dqjtfb-Dqmnro Hx Patient Social History Tobacco Use?: No Smoking Status: Former Smoker Use of E-Cig and/or Vaping dev: No Substance use?: No Alcohol Use?: No Pt feels they are or have been: No Immunizations Up To Date Tetanus Booster (TDap): Unknown PED Vaccines UTD: No Influenza Vaccine Up-to-Date: Yes; Up-to-Date First/Initial COVID19 Vaccinat: 2020 Second COVID19 Vaccination Dae: 2020 Third COVID19 Vaccination Date: 07/2021 COVID19 Vaccine 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 AND 1 BOOSTER Seasonal Allergies Seasonal Allergies: Yes Past Medical History Surgeries: Yes Abdominal, Section, Hysterectomy, Orthopedic Respiratory: Yes (03/26/2022 - DENIES) COPD Currently Using CPAP: No Currently Using BIPAP: No Cardiac: Yes Hypertension Neurological: Yes Dementia 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 Disorders: No Female 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 Disorders: 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, 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 Sexually Transmitted Disease: No HIV/AIDS: No Genitourinary: No Gastrointestinal: Yes Gastroesophageal Reflux, Hiatal Hernia Musculoskeletal: Yes (LEFT TOTAL KNEE REPLACEMENT) Arthritis Endocrine: Yes Diabetes, Insulin dep HEENT: Yes Cataract Hearing Impairment: Denies Cancer: No (RT LEG) Melanoma Psychosocial: Yes ADD/ADHD, Eating Disorder, Anxiety, Depression Integumentary: Yes Psoriasis Blood Disorders: No Adverse Reaction/Blood Tranf: No Family Medical History Reviewed Nursing Family Hx AIDS Alcoholism Arthritis Asthma Cataracts Coronary thrombosis Diabetes mellitus Drug abuse Glaucoma Psychosocial problem Respiratory disorder No Family History of: Foley's disease Alzheimer's disease Aphasia Cancer of mouth Cardiovascular disease Colon cancer Completed stroke Congenital disease Congenital heart disease Cystic fibrosis Deafness or hearing loss Dementia Dysphasia Fibrocystic disease of breast Gastroenteritis Headache disorder Hypercholesterolemia Hypertension Infertility Kidney disease Myocardial infarction Neoplasm Not obtainable due to adoption Osteoporosis Parkinson's disease Prostate cancer Seizure disorder Severe allergy Thyroid disease Tuberculosis Visual disorder No Pertinent Family Hx Physical Exam Vital Signs Vital Signs - First Documented 08/29/22 23:40 Temp 36.2 Pulse 69 Resp 18 B/P (MAP) 198/92 (127) Pulse Ox 94 O2 Delivery Room Air Capillary Refill : Less Than 3 Seconds Height/Weight/BMI Height: 5'65.00" Weight: 252lbs. 14.0oz. 114.124894rn; 46.97 BMI Method:Stated General Appearance: WD/WN, no apparent distress HEENT: normal ENT inspection, pharynx normal, other Neck: non-tender, supple Respiratory: chest non-tender, lungs clear, normal breath sounds, no respiratory distress, no accessory muscle use Cardiovascular: regular rate, rhythm, no edema, no gallop, no JVD, no murmur Gastrointestinal: normal bowel sounds, non tender, soft, no organomegaly, no pulsatile mass Extremities: normal range of motion, non-tender, normal inspection, no calf tenderness, other (1+ pitting edema bilateral lower EXTR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: alert, normal mood/affect, oriented x 3 Skin: normal color, warm/dry Lymphatic: no adenopathy Progress/Results/Core Measures Results/Orders Lab Results Laboratory Tests Test 08/29/22 23:50 08/30/22 00:10 Range/Units Sodium Level 132 L 135-145 MMOL/L Potassium Level 4.1 3.6-5.0 MMOL/L Chloride Level 98 98-107 MMOL/L Carbon Dioxide Level 22 21-32 MMOL/L Anion Gap 12 5-14 MMOL/L Blood Urea Nitrogen 10 7-18 MG/DL Creatinine 0.79 0.60-1.30 MG/DL Estimat Glomerular Filtration Rate 81 BUN/Creatinine Ratio 13 Glucose Level 135 H 70-105 MG/DL Calcium Level 9.3 8.5-10.1 MG/DL Corrected Calcium 9.4 8.5-10.1 MG/DL Total Bilirubin 0.5 0.1-1.0 MG/DL Aspartate Amino Transf (AST/SGOT) 14 5-34 U/L Alanine Aminotransferase (ALT/SGPT) 12 0-55 U/L Alkaline Phosphatase 129 40-136 U/L Total Protein 7.4 6.4-8.2 GM/DL Albumin 3.9 3.2-4.5 GM/DL White Blood Count 12.6 H 4.3-11.0 10^3/uL Red Blood Count 5.54 H 3.80-5.11 10^6/uL Hemoglobin 15.6 11.5-16.0 g/dL Hematocrit 46 35-52 % Mean Corpuscular Volume 83 80-99 fL Mean Corpuscular Hemoglobin 28 25-34 pg Mean Corpuscular Hemoglobin Concent 34 32-36 g/dL Red Cell Distribution Width 11.8 10.0-14.5 % Platelet Count 204 130-400 10^3/uL Mean Platelet Volume 8.5 L 9.0-12.2 fL Immature Granulocyte % (Auto) 0 % Neutrophils (%) (Auto) 74 42-75 % Lymphocytes (%) (Auto) 19 12-44 % Monocytes (%) (Auto) 6 0-12 % Eosinophils (%) (Auto) 1 0-10 % Basophils (%) (Auto) 1 0-10 % Neutrophils # (Auto) 9.3 H 1.8-7.8 10^3/uL Lymphocytes # (Auto) 2.3 1.0-4.0 10^3/uL Monocytes # (Auto) 0.7 0.0-1.0 10^3/uL Eosinophils # (Auto) 0.1 0.0-0.3 10^3/uL Basophils # (Auto) 0.1 0.0-0.1 10^3/uL Immature Granulocyte # (Auto) 0.1 0.0-0.1 10^3/uL My Orders Orders - DANIELLE KEARNS DO Comprehensive Metabolic Panel (08/29/22 23:51) Cbc With Automated Diff (08/29/22 23:51) Ns Iv 500 Ml (Sodium Chloride 0.9%) (08/30/22 00:00) Ondansetron Injection (Zofran Injectio (08/30/22 00:00) Medications Given in ED Current Medications Medications Dose Ordered Sig/Minal Route Start Time Stop Time Status Last Admin Dose Admin Ondansetron HCl 8 mg ONCE ONCE IVP 08/30/22 00:00 08/30/22 00:01 DC 08/29/22 23:59 8 MG Vital Signs/I&O 08/29/22 08/29/22 23:40 23:40 Temp 36.2 Pulse 69 Resp 18 B/P (MAP) 198/92 (127) Pulse Ox 94 O2 Delivery Room Air Room Air Blood Pressure Mean: 127 Departure Communication (Admissions) Patient is hemodynamically stable. Benign exam. Labs and other evaluation reassuring. Discharged home in stable condition with supportive care. Impression Primary Impression: Nausea and vomiting Qualified Codes: R11.2 - Nausea with vomiting, unspecified Additional Impression: Diarrhea Qualified Codes: R19.7 - Diarrhea, unspecified Disposition: 01 HOME, SELF-CARE Condition: Stable Departure-Patient Inst. Referrals: REJI ROY MD (PCP/Family) Primary Care Physician Patient Instructions: Diarrhea, Adult ED, Nausea and Vomiting of Add. Discharge Instructions: Take the Zofran as prescribed by dissolving it under your tongue as needed for nausea. Increase your fluids at home, rest. Return to the emergency department for any severe concerns. Follow-up with primary doctor for any nonemergent needs. All discharge instructions reviewed with patient and/or family. Voiced understanding. Scripts Ondansetron (Ondansetron Odt) 8 Mg Tab.rapdis 8 MG SL Q4H PRN for NAUSEA/VOMITING for 3 Days, #12 TAB Prov: DANIELLE KEARNS DO 08/30/22 DANIELLE KEARNS DO Aug 29, 2022 23:55
[2022-08-30] MEDS ORDERED: ONDANSETRON 4 MG/2 ML (SDV) Z0FRAN IVP ONE
[2022-08-30] MEDS ORDERED: NS IV 500 ML 500 ML IV SCH
[2022-08-30 00:11] LABS: ALBUMIN 3.9 GM/DL (3.2-4.5); POTASSIUM 4.1 MMOL/L (3.6-5.0)
[2022-08-30 00:12] LABS: CALCIUM 9.3 MG/DL (8.5-10.1)
[2022-08-30 00:14] LABS: TOTAL PROTEIN 7.4 GM/DL (6.4-8.2)
[2022-08-30 00:14] LABS: BASOPHILS # (AUTO) 0.1 10^3/uL (0.0-0.1); BASOPHILS % (AUTO) 1 % (0-10); EOSINOPHILS # (AUTO) 0.1 10^3/uL (0.0-0.3); EOSINOPHILS % (AUTO) 1 % (0-10); HEMATOCRIT 46 % (35-52); HEMOGLOBIN 15.6 g/dL (11.5-16.0); LYMPHOCYTES # (AUTO) 2.3 10^3/uL (1.0-4.0); LYMPHOCYTES % (AUTO) 19 % (12-44); MEAN CORPUSCULAR HEMOGLOBIN 28 pg (25-34); MEAN CORPUSCULAR HGB CONC 34 g/dL (32-36); MEAN CORPUSCULAR VOLUME 83 fL (80-99); MEAN PLATELET VOLUME 8.5 fL (9.0-12.2); MONOCYTES # (AUTO) 0.7 10^3/uL (0.0-1.0); MONOCYTES % (AUTO) 6 % (0-12); NEUTROPHILS # (AUTO) 9.3 10^3/uL (1.8-7.8); NEUTROPHILS % (AUTO) 74 % (42-75); PLATELET COUNT 204 10^3/uL (130-400); WHITE BLOOD COUNT 12.6 10^3/uL (4.3-11.0)
[2022-08-30 00:15] LABS: BILIRUBIN,TOTAL 0.5 MG/DL (0.1-1.0)
[2022-08-30 00:17] LABS: CREATININE SERUM 0.79 MG/DL (0.60-1.30)
[2022-08-30] MEDS ORDERED: RX-ONDANSETRON 4 MG ODT (ZOFRAN) PPK #4 PO STA (00:28)
[2022-08-30] MEDS ORDERED: ONDA8TAB13 SL (00:29)
[2022-08-30 00:45] VITALS: BP 170/85
== END 2022-08-30 00:45 | disposition home or self-care (01) ==
LOC: EDUNIT# 23:26 → ER 23:30
DX: R11.2 Nausea with vomiting, unspecified (principal); R19.7 Diarrhea, unspecified; R60.0 Localized edema; Z87.891 Personal history of nicotine dependence; E11.9 Type 2 diabetes mellitus without complications; Z79.4 Long term (current) use of insulin
CPT/HCPCS: 36415; 80053; 85025

== ENCOUNTER 2022-10-06 10:56 | Emergency (ER) | payer MEDICARE ==
[~2022-10-06] VITALS: Ht 165 cm; Wt 128.2 kg
[~2022-10-06 10:56] MED LIST changes: +ONDA8TAB13 SL; +QUET150T14 PO; -QUET150T3 PO
[2022-10-06 11:29] LABS: BASOPHILS # (AUTO) 0.1 10^3/uL (0.0-0.1); BASOPHILS % (AUTO) 1 % (0-10); EOSINOPHILS # (AUTO) 0.4 10^3/uL (0.0-0.3); EOSINOPHILS % (AUTO) 4 % (0-10); HEMATOCRIT 47 % (35-52); HEMOGLOBIN 15.2 g/dL (11.5-16.0); LYMPHOCYTES # (AUTO) 2.2 10^3/uL (1.0-4.0); LYMPHOCYTES % (AUTO) 22 % (12-44); MEAN CORPUSCULAR HEMOGLOBIN 28 pg (25-34); MEAN CORPUSCULAR HGB CONC 33 g/dL (32-36); MEAN CORPUSCULAR VOLUME 85 fL (80-99); MEAN PLATELET VOLUME 8.6 fL (9.0-12.2); MONOCYTES # (AUTO) 0.7 10^3/uL (0.0-1.0); MONOCYTES % (AUTO) 7 % (0-12); NEUTROPHILS # (AUTO) 6.6 10^3/uL (1.8-7.8); NEUTROPHILS % (AUTO) 66 % (42-75); PLATELET COUNT 288 10^3/uL (130-400); WHITE BLOOD COUNT 10.1 10^3/uL (4.3-11.0)
[2022-10-06 11:32] LABS: BILIRUBIN,URINE NEGATIVE (NEGATIVE); CLARITY,URINE CLEAR; COLOR,URINE YELLOW; GLUCOSE, URINE (UA) TRACE (NEGATIVE); KETONES,URINE NEGATIVE (NEGATIVE); LEUKOCYTE ESTERASE ,URINE NEGATIVE (NEGATIVE); NITRITE,URINE NEGATIVE (NEGATIVE); PH,URINE 6.5 (5-9); PROTEIN,URINE NEGATIVE (NEGATIVE)
[2022-10-06 11:39] LABS: INR 0.9 (0.8-1.4); PROTHROMBIN TIME PATIENT 12.7 SEC (12.2-14.7)
[2022-10-06 11:42] LABS: ALBUMIN 3.6 GM/DL (3.2-4.5)
[2022-10-06 11:43] LABS: POTASSIUM 3.9 MMOL/L (3.6-5.0)
[2022-10-06 11:44] LABS: CALCIUM 9.2 MG/DL (8.5-10.1)
[2022-10-06 11:45] LABS: BACTERIA,URINE NEGATIVE /HPF; SQUAMOUS EPITHELIAL CELL,UR RARE /HPF; YEAST,URINE FEW /HPF
[2022-10-06 11:45] LABS: TOTAL PROTEIN 6.8 GM/DL (6.4-8.2)
[2022-10-06 11:47] LABS: BILIRUBIN,TOTAL 0.3 MG/DL (0.1-1.0)
[2022-10-06 11:49] LABS: CREATININE SERUM 0.82 MG/DL (0.60-1.30)
[2022-10-06 11:51] LABS: MAGNESIUM 1.9 MG/DL (1.6-2.4)
[2022-10-06 11:59] LABS: CREATINE KINASE MB 3.6 NG/ML (<6.6)
--- NOTE | 2022-10-06 12:36 | Diagnostic Imaging Report ---
INDICATION: Chest pain Frontal chest obtained at 1207 p.m. COMPARISON: 12/23/2020 There is cardiomegaly. There is central vascular congestion. There is no consolidation or pneumothorax or pleural fluid. There is some mild right basilar atelectasis. IMPRESSION: Cardiomegaly and mild central vascular prominence. There is mild right basilar atelectasis. There is no pneumothorax or pleural fluid. Dictated by: Dictated on workstation # [id number]
[2022-10-06] MEDS ORDERED: CATHETER FLUSH 10 ML SYR IV PRN (12:45)
[2022-10-06] MEDS ORDERED: HOLD METFORMIN - RECEIVED CONTRAST 20 ML VIAL IV SCH (12:45)
[2022-10-06] MEDS ORDERED: IOHEXOL 350 MG/ML 100 ML (OMNIPAQUE 350) VIAL IV ONE (12:45)
[2022-10-06] MEDS ORDERED: NS 100 ML (IVPB) BAG IV ONE (12:45)
--- NOTE | 2022-10-06 12:56 | ED Cardiac General ---
History of Present Illness General Chief Complaint: Cardiac/General Problems Stated Complaint: [facility] Nursing Triage Note: ARRIVED VIA EMS FROM [facility] WITH A 10#WT GAIN IN THE LAST WEEK AND PULSE OX DROP WHEN SHE WALKS ALONG WITH BILAT LOWER EDEMA. PT STATES SHE IS NOT BAD WHAT THEY SAY. Source: patient Exam Limitations: no limitations History of Present Illness Date Seen by Provider: Oct 06, 2022 Time Seen by Provider: 12:31 Initial Comments This is a 67-year-old female with a history of COPD, insulin-dependent diabetes who presented to the ER via [facility] from [facility]. She was scheduled to have a follow-up appoint with her primary care pro vider today for a 10 pound weight gain over the past week. At her visit she was found to have an oxygen decrease with ambulation down into the upper 80s. She also has bilateral lower extremity edema. Patient states that she always has edema, but does seem worse than usual. She wears oxygen as needed at home for shortness of breath due to her COPD. States that she does not feel that she needs to be evaluated in the emergency department today. She denies fever, chills, cough, chest pain, nausea, vomiting, abdominal pain. Shortness of breath is worse with exertion, states that this is not abnormal for her. Allergies and Home Medications Allergies Coded Allergies: exenatide (Unverified Allergy, Unknown, 03/24/22) methylphenidate (Unverified Allergy, Unknown, 03/24/22) sulfamethoxazole (Unverified Allergy, Unknown, 03/24/22) HALLUCINATIONS trimethoprim (Unverified Allergy, Unknown, 03/24/22) HALLUCINATIONS morphine (Verified Adverse Reaction, Mild, NAUSEA, 05/19/16) Patient Home Medication List Home Medication List Reviewed: Yes Bupropion HCl (Bupropion Xl) 150 Mg Tab.er.24h, 150 MG PO DAILY, (Reported) Entered as Reported by: PRASANTH TELLO on 12/23/201613 Bupropion HCl (Bupropion Xl) 300 Mg Tab.er.24h, 300 MG PO DAILY, (Reported) Entered as Reported by: PRASANTH TELLO on 12/23/201613 Buspirone HCl (Buspirone HCl) 30 Mg Tablet, 30 MG PO BID, (Reported) Entered as Reported by: PRASANTH TELLO on 12/23/201613 Gabapentin (Gabapentin) 600 Mg Tablet, 600 MG PO TID, (Reported) Entered as Reported by: PRASANTH TELLO on 12/23/201613 Glucosamine HCl/Chondr Bentley A Na (Osteo Bi-Flex Caplet) 1 Each Tablet, 1 EACH PO DAILY, (Reported) Entered as Reported by: ABEL FELDMAN on 08/07/201449 Ibuprofen (Ibuprofen) 200 Mg Capsule, 400-600 MG PO Q8H PRN for PAIN-MILD (1-4), (Reported) Entered as Reported by: PRASANTH TELLO on 12/23/201613 Insulin Aspart (Novolog Flexpen) 300 Units/3 Ml Solution, 16 UNITS SC TIDPC, (Reported) Entered as Reported by: PRASANTH TELLO on 12/23/201613 Insulin Degludec (Tresiba Flextouch U-100) 100 Unit/1 Ml Insuln.pen, 60 UNITS SC HS, (Reported) Entered as Reported by: PRASANTH TELLO on 12/23/201613 L.acidoph & Paracasei,B.lactis (Probiotic) 1 Each Capsule, 1 EACH PO DAILY, (Reported) Entered as Reported by: ABEL FELDMAN on 08/07/201449 Lorazepam (Ativan) 0.5 Mg Tablet, 0.5 MG PO BID PRN for ANXIETY Prescribed by: HERMILA SWAIN on 12/24/20 1111 Losartan Potassium (Losartan Potassium) 100 Mg Tablet, 100 MG PO DAILY, (Reported) Entered as Reported by: ABEL FELDMAN on 08/07/201449 Lutein (Lutein) 40 Mg Capsule, 40 MG PO DAILY, (Reported) Entered as Reported by: PRASANTH TELLO on 12/23/201617 Multivitamin with Minerals (Multiple Vitamin) 1 Each Tablet, 1 EACH PO DAILY, (Reported) Entered as Reported by: ABEL FELDMAN on 08/07/201449 Omeprazole (Omeprazole) 40 Mg Capsule.dr, 40 MG PO DAILY, (Reported) Entered as Reported by: PRASANTH TELLO on 12/23/201613 Ondansetron (Ondansetron Odt) 8 Mg Tab.rapdis, 8 MG SL Q4H PRN for NAUSEA/VOMITING Prescribed by: DANIELLE KEARNS MD on 08/30/22 0029 Vit A/C/E/Zinc/Co (Preservision Areds Softgel) 1 Cap Capsule, 1 CAP PO DAILY, (Reported) Entered as Reported by: ABEL FELDMAN on 08/07/20 1450 Review of Systems Review of Systems Constitutional: see HPI Past Zxxtmaq-Wvthrb-Kcmxcw Hx Immunizations Up To Date Tetanus Booster (TDap): Unknown PED Vaccines UTD: No First/Initial COVID19 Vaccinat: 2020 Second COVID19 Vaccination Dae: 2020 Third COVID19 Vaccination Date: 07/2021 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: [employer] Seasonal Allergies Seasonal Allergies: Yes Past Medical History Surgeries: Yes Abdominal, Section, Hysterectomy, Orthopedic Respiratory: Yes (03/26/2022 - DENIES) COPD Currently Using CPAP: No Currently Using BIPAP: No Cardiac: Yes Hypertension Neurological: Yes Dementia 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 Disorders: No Female 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 Disorders: Denies 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, 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 Sexually Transmitted Disease: No HIV/AIDS: No Genitourinary: No Gastrointestinal: Yes Gastroesophageal Reflux, Hiatal Hernia Musculoskeletal: Yes (LEFT TOTAL KNEE REPLACEMENT) Arthritis Endocrine: Yes Diabetes, Insulin dep HEENT: Yes Cataract Hearing Impairment: Denies Cancer: No (RT LEG) Melanoma Psychosocial: Yes ADD/ADHD, Eating Disorder, Anxiety, Depression Integumentary: Yes Psoriasis Blood Disorders: No Adverse Reaction/Blood Tranf: No Family Medical History AIDS Alcoholism Arthritis Asthma Cataracts Coronary thrombosis Diabetes mellitus Drug abuse Glaucoma Psychosocial problem Respiratory disorder No Family History of: Wells's disease Alzheimer's disease Aphasia Cancer of mouth Cardiovascular disease Colon cancer Completed stroke Congenital disease Congenital heart disease Cystic fibrosis Deafness or hearing loss Dementia Dysphasia Fibrocystic disease of breast Gastroenteritis Headache disorder Hypercholesterolemia Hypertension Infertility Kidney disease Myocardial infarction Neoplasm Not obtainable due to adoption Osteoporosis Parkinson's disease Prostate cancer Seizure disorder Severe allergy Thyroid disease Tuberculosis Visual disorder No Pertinent Family Hx Physical Exam Vital Signs Vital Signs - First Documented 10/06/22 10:59 Temp 35.4 Pulse 76 Resp 16 Pulse Ox 94 O2 Delivery Room Air Capillary Refill : Less Than 3 Seconds Height, Weight, BMI Height: 5'65.00" Weight: 252lbs. 14.0oz. 114.358898mg; 47.00 BMI Method:Stated General Appearance: No Apparent Distress, WD/WN HEENT: PERRL/EOMI, Normal ENT Inspection, Pharynx Normal Neck: Full Range of Motion, Normal Inspection, Supple Respiratory: No Accessory Muscle Use, No Respiratory Distress, Crackles, Decreased Breath Sounds Cardiovascular: Regular Rate, Rhythm, Normal Peripheral Pulses Gastrointestinal: Normal Bowel Sounds, Non Tender, Soft Extremity: Normal Capillary Refill, Normal Range of Motion, Pedal Edema (BLE 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: Alert, Oriented x3, No Motor/Sensory Deficits, Normal Mood/Affect Skin: Normal Color, Warm/Dry Progress/Results/Core Measures Results/Orders Lab Results Laboratory Tests Test 10/06/22 11:10 10/06/22 11:24 10/06/22 12:28 10/06/22 13:40 Range/Units White Blood Count 10.1 4.3-11.0 10^3/uL Red Blood Count 5.45 H 3.80-5.11 10^6/uL Hemoglobin 15.2 11.5-16.0 g/dL Hematocrit 47 35-52 % Mean Corpuscular Volume 85 80-99 fL Mean Corpuscular Hemoglobin 28 25-34 pg Mean Corpuscular Hemoglobin Concent 33 32-36 g/dL Red Cell Distribution Width 13.4 10.0-14.5 % Platelet Count 288 130-400 10^3/uL Mean Platelet Volume 8.6 L 9.0-12.2 fL Immature Granulocyte % (Auto) 1 % Neutrophils (%) (Auto) 66 42-75 % Lymphocytes (%) (Auto) 22 12-44 % Monocytes (%) (Auto) 7 0-12 % Eosinophils (%) (Auto) 4 0-10 % Basophils (%) (Auto) 1 0-10 % Neutrophils # (Auto) 6.6 1.8-7.8 10^3/uL Lymphocytes # (Auto) 2.2 1.0-4.0 10^3/uL Monocytes # (Auto) 0.7 0.0-1.0 10^3/uL Eosinophils # (Auto) 0.4 H 0.0-0.3 10^3/uL Basophils # (Auto) 0.1 0.0-0.1 10^3/uL Immature Granulocyte # (Auto) 0.1 0.0-0.1 10^3/uL Prothrombin Time 12.7 12.2-14.7 SEC INR Comment 0.9 0.8-1.4 Activated Partial Thromboplast Time 27 24-35 SEC D-Dimer 0.63 H 0.00-0.49 UG/ML Sodium Level 135 135-145 MMOL/L Potassium Level 3.9 3.6-5.0 MMOL/L Chloride Level 95 L 98-107 MMOL/L Carbon Dioxide Level 35 H 21-32 MMOL/L Anion Gap 5 5-14 MMOL/L Blood Urea Nitrogen 15 7-18 MG/DL Creatinine 0.82 0.60-1.30 MG/DL Estimat Glomerular Filtration Rate 77 BUN/Creatinine Ratio 18 Glucose Level 160 H 70-105 MG/DL Calcium Level 9.2 8.5-10.1 MG/DL Corrected Calcium 9.5 8.5-10.1 MG/DL Magnesium Level 1.9 1.6-2.4 MG/DL Total Bilirubin 0.3 0.1-1.0 MG/DL Aspartate Amino Transf (AST/SGOT) 11 5-34 U/L Alanine Aminotransferase (ALT/SGPT) 11 0-55 U/L Alkaline Phosphatase 126 40-136 U/L Total Creatine Kinase 59 29-168 U/L Creatine Kinase MB 3.6 <6.6 NG/ML Myoglobin 68.7 10.0-92.0 NG/ML Troponin I < 0.028 <0.028 NG/ML B-Type Natriuretic Peptide 32.0 <100.0 PG/ML Total Protein 6.8 6.4-8.2 GM/DL Albumin 3.6 3.2-4.5 GM/DL Urine Color YELLOW Urine Clarity CLEAR Urine pH 6.5 5-9 Urine Specific [place] 1.010 L 1.016-1.022 Urine Protein NEGATIVE NEGATIVE Urine Glucose (UA) TRACE H NEGATIVE Urine Ketones NEGATIVE NEGATIVE Urine Nitrite NEGATIVE NEGATIVE Urine Bilirubin NEGATIVE NEGATIVE Urine Urobilinogen 1.0 < = 1.0 MG/DL Urine Leukocyte Esterase NEGATIVE NEGATIVE Urine RBC (Auto) NEGATIVE NEGATIVE Urine RBC NONE /HPF Urine WBC NONE /HPF Urine Squamous Epithelial Cells RARE /HPF Urine Crystals NONE /LPF Urine Bacteria NEGATIVE /HPF Urine Casts NONE /LPF Urine Mucus NEGATIVE /LPF Urine Yeast FEW H /HPF Urine Culture Indicated YES SARS-CoV-2 RNA (RT-PCR) Not Detected Not Detecte Blood Gas Puncture Site RT RADIAL Blood Gas Patient Temperature 36.2 Arterial Blood pH 7.40 7.37-7.43 Arterial Blood Partial Pressure CO2 55 H 35-45 MMHG Arterial Blood Partial Pressure O2 63 L 79-93 MMHG Arterial Blood HCO3 33 H 23-27 MMOL/L Arterial Blood Total CO2 35.1 H 21.0-31.0 MMOL/L Arterial Blood Oxygen Saturation 94 94-100 % Arterial Blood Base Excess 8.3 H -2.5-2.5 MMOL/L [place] Test YES-POS Blood Gas Ventilator Setting NO Blood Gas Inspired Oxygen ROOM AIR My Orders Orders - CLAYTON LEWIS APRN Ua Culture If Indicated (10/06/22 11:23) Ekg Tracing (10/06/22 11:23) Cbc With Automated Diff (10/06/22 11:23) Magnesium (10/06/22 11:23) Chest 1 View, Ap/Pa Only (10/06/22 11:23) Comprehensive Metabolic Panel (10/06/22 11:23) Myoglobin Serum (10/06/22 11:23) Protime With Inr (10/06/22 11:23) Partial Thromboplastin Time (10/06/22 11:23) O2 (10/06/22 11:23) Monitor-Rhythm Ecg Trace Only (10/06/22 11:23) Ed Iv/Invasive Line Start (10/06/22 11:23) Creatine Kinase (10/06/22 11:23) Creatine Kinase Mb (10/06/22 11:23) Bnp [place] (10/06/22 11:23) Fibrin Degradation Products (10/06/22 11:23) Troponin I [place] (10/06/22 11:23) Urine Culture (10/06/22 11:24) Arterial Blood Gas (10/06/22 12:21) Covid 19 Inhouse Test (10/06/22 12:27) Ct Angio Chest W (10/06/22 12:29) Iohexol Injection (Omnipaque 350 Mg/Ml 1 (10/06/22 12:45) Received Contrast (Hold Metformin- Contr (10/06/22 12:45) Ns (Ivpb) (Sodium Chloride 0.9% Ivpb Bag (10/06/22 12:45) Sodium Chloride Flush (Catheter Flush Sy (10/06/22 12:45) Lactic Acid Analyzer (10/06/22 14:00) Arterial Blood Draw - Obtain (10/06/22 13:40) Alcohol (10/06/22 14:04) Vital Signs/I&O 10/06/22 10:59 Temp 35.4 Pulse 76 Resp 16 B/P (MAP) Pulse Ox 94 O2 Delivery Room Air Initial ECG Impression Date: Oct 06, 2022 Initial ECG Impression Time: 11:31 Initial ECG Rate: 73 Initial ECG Rhythm: Normal Sinus Initial ECG Intervals: Normal Initial ECG Impression: Nonspecific Changes Initial ECG Comparisson: No Previous ECG Available Diagnostic Imaging Diagonstic Imaging: Xray Plain Films/CT/US/NM/MRI: chest Comments [facility]. [place], [place] NAME: JANEEN MAC [facility] REC#: [id number] PT STATUS: REG ER : 1955 PHYSICIAN: CLAYTON LEWIS APRN ADMIT DATE: 10/06/22/ER Draft Date of Exam:10/06/22 CHEST 1 VIEW, AP/PA ONLY INDICATION: Chest pain Frontal chest obtained at 1207 p.m. COMPARISON: 12/23/2020 There is cardiomegaly. There is central vascular congestion. There is no consolidation or pneumothorax or pleural fluid. There is some mild right basilar atelectasis. IMPRESSION: Cardiomegaly and mild central vascular prominence. There is mild right basilar atelectasis. There is no pneumothorax or pleural fluid. Dictated on workstation # [id number] Dict: 10/06/22 1232 Trans: 10/06/22 1236 [facility] [id number] Interpreted by: OVIDIO SLAUGHTER MD Electronically signed by: Diagonstic Imaging: CT Departure Impression Primary Impression: COPD (chronic obstructive pulmonary disease) Additional Impression: Edema Disposition: 01 HOME, SELF-CARE Condition: Improved Departure-Patient Inst. Decision time for Depature: 13:34 Referrals: KAYLA GUTIERREZ MD Patient Instructions: Chronic Obstructive Pulmonary Disease (COPD) (DC), DASH Diet, Dependent Edema (DC) Add. Discharge Instructions: Plan: 1. Follow-up with your primary care provider office, recommend having cardiac ultrasound outpatient. 2. Continue your Lasix as previously directed, limit the amount of sodium or salt that you eat in your foods, a list of DASH diet recommendations are attached to your discharge. 3. Take Fiber daily to help with loose stools. 4. Return to ER for any new, concerning, or worsening symptoms. All discharge instructions reviewed with patient and/or family. Voiced understa nding. CLAYTON LEWIS WATERSHED PROGRAM MANAGER Oct 06, 2022 12:56
--- NOTE | 2022-10-06 13:07 | Diagnostic Imaging Report ---
PROCEDURE: CT angiography of the chest with contrast. TECHNIQUE: Multiple contiguous axial images were obtained through the chest after uneventful bolus administration of intravenous contrast. 3D reconstructed CTA MIP acquisitions were also performed. Auto Exposure Controls were utilized during the CT exam to meet ALARA standards for radiation dose reduction. INDICATION: Shortness of breath. Edema. COMPARISON: 10/18/2018. FINDINGS: This helical CT pulmonary angiogram is diagnostic to the subsegmental level branches of the pulmonary artery and demonstrates no pulmonary emboli. The heart size is prominent. There is no pericardial effusion. The thoracic aorta is unremarkable. There is no axillary, mediastinal, or hilar adenopathy. Lung volumes are low. Scattered subsegmental atelectasis is seen. No focal consolidation or mass. No pleural effusion or pneumothorax. Osseous structures appear normal. Limited views of the upper abdomen are unremarkable. IMPRESSION: 1. No acute pulmonary embolus. 2. Low lung volumes with scattered subsegmental atelectasis. 3. Mild cardiomegaly. Dictated by: Dictated on workstation # [id number]
[2022-10-06 13:54] LABS: ABG BASE EXCESS 8.3 MMOL/L (-2.5-2.5); ABG OXYGEN SATURATION 94 % (94-100); ABG PCO2 55 MMHG (35-45); ABG PO2 63 MMHG (79-93); ABG TCO2 35.1 MMOL/L (21.0-31.0)
[2022-10-06 13:55] LABS: ALLENS TEST YES-POS; INSPIRED O2 ROOM AIR; PATIENT TEMP 36.2; VENTILATOR NO
[2022-10-06 14:58] VITALS: BP 178/82
== END 2022-10-06 14:58 | disposition home or self-care (01) ==
LOC: EDUNIT# 10:56 → ER 10:57
DX: J44.9 Chronic obstructive pulmonary disease, unspecified (principal); R60.0 Localized edema; E11.9 Type 2 diabetes mellitus without complications; Z20.822 Contact with and (suspected) exposure to COVID-19; Z99.81 Dependence on supplemental oxygen; Z79.4 Long term (current) use of insulin
CPT/HCPCS: 36415; 36600; 71045; 71275; 80053; 81000; 82550; 82553; 82805; 83735; 83874; 83880; 84484; 85025; 85379; 85610; 85730; 87088; 87636; 93005

== ENCOUNTER 2022-10-10 14:51 | Emergency (ER) | payer MEDICARE ==
[~2022-10-10] VITALS: Ht 165 cm; Wt 108.0 kg
[2022-10-10] MEDS ORDERED: AUGMENTIN 875 MG TAB (AMOXICILLIN/CLAVULANATE) PO STA (15:11)
[2022-10-10] MEDS ORDERED: DOXYCYCLINE 100 MG (VIBRAMYCIN) TABLET PO STA (15:11)
[2022-10-10] MEDS ORDERED: HYDROcodone/APAP 5 MG/325 MG (LORTAB) TAB PO ONE (15:15)
--- NOTE | 2022-10-10 15:26 | ED Lower Extremity ---
General Chief Complaint: Lower Extremity Stated Complaint: RIGHT FOOT/LEG SWOLLEN/PAINFUL Nursing Triage Note: ARRIVED VIA FROM [facility]. STATES SHE WAS PUT ON BACTRIM ON TUESDAY FOR CELLULITS RIGHT LOWER LEG. PT THINKS IT IS NOT GETTING BETTER. Source: patient Exam Limitations: no limitations History of Present Illness Date Seen by Provider: Oct 10, 2022 Time Seen by Provider: 15:03 Initial Comments Patient is a 67-year-old female with a history of diabetes who presents to the emergency room with a chief complaint of swollen painful right red leg. Patient states that she started having pain in her leg with redness last week after she bumped into a TV stand. She twisted her foot and ended up with a small cut on the bottom of her right foot. She states she went to [facility] walk-in care on Tuesday and was started on Bactrim. She has had 5 doses, she states the leg is continued to swell become more red and more painful. She went back to the in today and they sent her to the emergency room. Patient states her appetite is somewhat decreased. No fevers or chills. No other constitutional symptoms. She has underlying neuropathy. History of melanoma 3 years ago removed from the right lower extremity. No history of blood clot. Complains of swelling in the leg. Asking for something for pain. Onset: last week Severity: moderate Pain/Injury Location: right leg Method of Injury: other (injury/ wound to bottom of left foot) Allergies and Home Medications Allergies Coded Allergies: exenatide (Unverified Allergy, Unknown, 03/24/22) methylphenidate (Unverified Allergy, Unknown, 03/24/22) sulfamethoxazole (Unverified Allergy, Unknown, 03/24/22) HALLUCINATIONS trimethoprim (Unverified Allergy, Unknown, 03/24/22) HALLUCINATIONS morphine (Verified Adverse Reaction, Mild, NAUSEA, 05/19/16) Patient Home Medication List Home Medication List Reviewed: Yes Bupropion HCl (Bupropion Xl) 150 Mg Tab.er.24h, 150 MG PO DAILY, (Reported) Entered as Reported by: PRASANTH TELLO on 12/23/201613 Bupropion HCl (Bupropion Xl) 300 Mg Tab.er.24h, 300 MG PO DAILY, (Reported) Entered as Reported by: PRASANTH TELLO on 2/23/21 1614 Buspirone HCl (Buspirone HCl) 30 Mg Tablet, 30 MG PO BID, (Reported) Entered as Reported by: PRASANTH TELLO on 12/23/201613 Gabapentin (Gabapentin) 600 Mg Tablet, 600 MG PO TID, (Reported) Entered as Reported by: PRASANTH TELLO on 12/23/201613 Glucosamine HCl/Chondr Bentley A Na (Osteo Bi-Flex Caplet) 1 Each Tablet, 1 EACH PO DAILY, (Reported) Entered as Reported by: ABEL FELDMAN on 08/07/201449 Ibuprofen (Ibuprofen) 200 Mg Capsule, 400-600 MG PO Q8H PRN for PAIN-MILD (1-4), (Reported) Entered as Reported by: PRASANTH TELLO on 12/23/201613 Insulin Aspart (Novolog Flexpen) 300 Units/3 Ml Solution, 16 UNITS SC TIDPC, (Reported) Entered as Reported by: PRASANTH TELLO on 12/23/201613 Insulin Degludec (Tresiba Flextouch U-100) 100 Unit/1 Ml Insuln.pen, 60 UNITS SC HS, (Reported) Entered as Reported by: PRASANTH TELLO on 12/23/201613 L.acidoph & Paracasei,B.lactis (Probiotic) 1 Each Capsule, 1 EACH PO DAILY, (Reported) Entered as Reported by: ABEL FELDMAN on 08/07/201449 Lorazepam (Ativan) 0.5 Mg Tablet, 0.5 MG PO BID PRN for ANXIETY Prescribed by: HERMILA SWAIN on 12/24/20 1111 Losartan Potassium (Losartan Potassium) 100 Mg Tablet, 100 MG PO DAILY, (Reported) Entered as Reported by: ABEL FELDMAN on 08/07/201449 Lutein (Lutein) 40 Mg Capsule, 40 MG PO DAILY, (Reported) Entered as Reported by: PRASANTH TELLO on 12/23/201617 Multivitamin with Minerals (Multiple Vitamin) 1 Each Tablet, 1 EACH PO DAILY, (Reported) Entered as Reported by: ABEL FELDMAN on 08/07/201449 Omeprazole (Omeprazole) 40 Mg Capsule.dr, 40 MG PO DAILY, (Reported) Entered as Reported by: PRASANTH TELLO on 2/23/21 1614 Ondansetron (Ondansetron Odt) 8 Mg Tab.rapdis, 8 MG SL Q4H PRN for NAUSEA/VOMITI NG Prescribed by: DANIELLE KEARNS MD on 08/30/22 0029 Vit A/C/E/Zinc/Co (Preservision Areds Softgel) 1 Cap Capsule, 1 CAP PO DAILY, (Reported) Entered as Reported by: ABEL FELDMAN on 08/07/20 1450 Review of Systems Constitutional: see HPI EENTM: no symptoms reported Respiratory: no symptoms reported Cardiovascular: no symptoms reported Gastrointestinal: loss of appetite, nausea Genitourinary: no symptoms reported Musculoskeletal: other (leg pain and swelling right) Skin: other (cut to bottom of foot) Psychiatric/Neurological: No Symptoms Reported All Other Systems Reviewed Negative Unless Noted: Yes Past Stmqwzv-Ytciwg-Elxdln Hx Patient Social History Tobacco Use?: No Substance use?: No Alcohol Use?: No Immunizations Up To Date Tetanus Booster (TDap): Unknown PED Vaccines UTD: No First/Initial COVID19 Vaccinat: 2020 Second COVID19 Vaccination Dae: 2020 Third COVID19 Vaccination Date: 07/2021 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[employer] Seasonal Allergies Seasonal Allergies: Yes Past Medical History Surgeries: Yes Abdominal, Section, Hysterectomy, Orthopedic Respiratory: Yes (03/26/2022 - DENIES) COPD Currently Using CPAP: No Currently Using BIPAP: No Cardiac: Yes Hypertension Neurological: Yes Dementia 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 Disorders: No Female 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 Disorders: Denies 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, 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 Sexually Transmitted Disease: No HIV/AIDS: No Genitourinary: No Gastrointestinal: Yes Gastroesophageal Reflux, Hiatal Hernia Musculoskeletal: Yes (LEFT TOTAL KNEE REPLACEMENT) Arthritis Endocrine: Yes Diabetes, Insulin dep HEENT: Yes Cataract Hearing Impairment: Denies Cancer: No (RT LEG) Melanoma Psychosocial: Yes ADD/ADHD, Eating Disorder, Anxiety, Depression Integumentary: Yes Psoriasis Blood Disorders: No Adverse Reaction/Blood Tranf: No Family Medical History AIDS Alcoholism Arthritis Asthma Cataracts Coronary thrombosis Diabetes mellitus Drug abuse Glaucoma Psychosocial problem Respiratory disorder No Family History of: [place]'s disease Alzheimer's disease Aphasia Cancer of mouth Cardiovascular disease Colon cancer Completed stroke Congenital disease Congenital heart disease Cystic fibrosis Deafness or hearing loss Dementia Dysphasia Fibrocystic disease of breast Gastroenteritis Headache disorder Hypercholesterolemia Hypertension Infertility Kidney disease Myocardial infarction Neoplasm Not obtainable due to adoption Osteoporosis Parkinson's disease Prostate cancer Seizure disorder Severe allergy Thyroid disease Tuberculosis Visual disorder No Pertinent Family Hx Physical Exam Vital Signs Vital Signs - First Documented 10/10/22 14:58 Temp 36.6 Pulse 71 Resp 16 B/P (MAP) 154/71 (98) Pulse Ox 92 O2 Delivery Room Air Capillary Refill : Less Than 3 Seconds Height, Weight, BMI Height: 5'65.00" Weight: 252lbs. 14.0oz. 114.671194me; 39.00 BMI Method:Stated General Appearance: WD/WN, no apparent distress HEENT: PERRL/EOMI Cardiovascular: regular rate, rhythm Respiratory: lungs clear, normal breath sounds, no respiratory distress, no accessory muscle use Gastrointestinal: normal bowel sounds, non tender, soft Hips: bilateral hip non-tender, bilateral hip normal inspection, bilateral hip normal range of motion, bilateral hip no evidence of injury Legs: bilateral leg non-tender, bilateral leg normal inspection, bilateral leg normal range of motion, bilateral leg no evidence of injury; right leg soft tissue tenderness, right leg swelling Knees: bilateral knee non-tender, bilateral knee normal inspection, bilateral knee normal range of motion, bilateral knee no evidence of injury Ankles: bilateral ankle non-tender, bilateral ankle normal inspection, bilateral ankle normal range of motion, bilateral ankle no evidence of injury; right ankle swelling Feet: right foot soft tissue tenderness, right foot swelling Neurologic/Psychiatric: alert, normal mood/affect Skin: normal color, warm/dry, other (erythema and tenderness to the RLW anterior lower leg. small bloster to the medial aspect of the right LE. no drainage. significant swelling. no open wounds other than a 2-3mm "cut" on the plantar surface of the right foot at the area of the MTP joint) Progress/Results/Core Measures Results/Orders Lab Results Laboratory Tests Test 10/10/22 15:40 Range/Units White Blood Count 11.8 H 4.3-11.0 10^3/uL Red Blood Count 5.28 H 3.80-5.11 10^6/uL Hemoglobin 15.0 11.5-16.0 g/dL Hematocrit 44 35-52 % Mean Corpuscular Volume 84 80-99 fL Mean Corpuscular Hemoglobin 28 25-34 pg Mean Corpuscular Hemoglobin Concent 34 32-36 g/dL Red Cell Distribution Width 13.4 10.0-14.5 % Platelet Count 264 130-400 10^3/uL Mean Platelet Volume 8.7 L 9.0-12.2 fL Immature Granulocyte % (Auto) 1 % Neutrophils (%) (Auto) 76 H 42-75 % Lymphocytes (%) (Auto) 16 12-44 % Monocytes (%) (Auto) 6 0-12 % Eosinophils (%) (Auto) 2 0-10 % Basophils (%) (Auto) 1 0-10 % Neutrophils # (Auto) 8.9 H 1.8-7.8 10^3/uL Lymphocytes # (Auto) 1.8 1.0-4.0 10^3/uL Monocytes # (Auto) 0.7 0.0-1.0 10^3/uL Eosinophils # (Auto) 0.3 0.0-0.3 10^3/uL Basophils # (Auto) 0.1 0.0-0.1 10^3/uL Immature Granulocyte # (Auto) 0.1 0.0-0.1 10^3/uL Sodium Level 131 L 135-145 MMOL/L Potassium Level 4.6 3.6-5.0 MMOL/L Chloride Level 94 L 98-107 MMOL/L Carbon Dioxide Level 28 21-32 MMOL/L Anion Gap 9 5-14 MMOL/L Blood Urea Nitrogen 16 7-18 MG/DL Creatinine 1.06 0.60-1.30 MG/DL Estimat Glomerular Filtration Rate 57 BUN/Creatinine Ratio 15 Glucose Level 287 H 70-105 MG/DL Lactic Acid Level 1.28 0.50-2.00 MMOL/L Calcium Level 9.6 8.5-10.1 MG/DL My Orders Orders - SUSHMA SHERWOOD MD Ed Iv/Invasive Line Start (10/10/22 15:09) Cbc With Automated Diff (10/10/22 15:09) Basic Metabolic Panel (10/10/22 15:09) Blood Culture (10/10/22 15:09) Lactic Acid Analyzer (10/10/22 15:09) Hydrocodone/Apap 5/325 Tablet (Lortab 5 (10/10/22 15:15) Doxycycline Hyclate Tablet (Vibramycin T (10/10/22 15:11) Amoxicillin/Clavulanate Tablet (Augmenti (10/10/22 15:11) Blood Culture (10/10/22 15:57) Medications Given in ED Current Medications Medications Dose Ordered Sig/Minal Route Start Time Stop Time Status Last Admin Dose Admin Acetaminophen/ Hydrocodone Bitart 1 ea ONCE ONCE PO 10/10/22 15:15 10/10/22 15:16 DC 10/10/22 15:33 1 EA Vital Signs/I&O 10/10/22 14:58 Temp 36.6 Pulse 71 Resp 16 B/P (MAP) 154/71 (98) Pulse Ox 92 O2 Delivery Room Air Blood Pressure Mean: 98 Progress Progress Note : Time: 16:36 Progress Note Patient seen and evaluated, 67-year-old diabetic with cellulitis to the right lower extremity. Vital signs are stable. She does not have any clinical or objective findings concerning for sepsis. Mild leukocytosis, normal electrolytes and renal function. Initially started on Bactrim with 5 doses. She has failed this antibiotic therapy. Will double cover her with amoxicillin and doxycycline. She will be instructed to follow-up closely with her primary care physician. Return precautions given. Consideration for ultrasound of the right lower extremity however negative Homans' sign, no palpable cords or calf tenderness. She does have a little discomfort with aggressive palpation. No history of DVT. She is not tachypneic, tachycardic or hypoxic. No open wounds or concern for abscess in the foot in the area of the 2 to 3 mm small laceration at the base of her right great toe. Low clinical suspicion for osteomyelitis. Close follow-up encouraged. Departure Impression Primary Impression: Cellulitis of right lower extremity Additional Impression: Diabetes Qualified Codes: E11.628 - Type 2 diabetes mellitus with other skin complications; Z79.4 - FPC (current) use of insulin Disposition: 01 HOME, SELF-CARE Condition: Stable Departure-Patient Inst. Decision time for Depature: 16:39 Referrals: KAYLA GUTIERREZ MD (PCP/Family) Primary Care Physician Patient Instructions: Cellulitis (Skin Infection), Adult ED Add. Discharge Instructions: Keep the right leg clean - wash any areas of wound with a gentle soap and water. I have changed your antibiotics to Amoxicillin and doxycycline. Take both of these twice a day for the next 7 days. You should be on a probiotic daily. ASk for one behind the pharmacy counter that requires refrigeration. These do not need a prescription. I have written you for Diflucan as well - take one today and one tablet in 1 week - to help prevent a yeast infection. If, after 2 days of antibiotics, your leg is more red, high fever or new concerning symptoms, come back to the Emergency Department for re-evaluation. Call your doctor's office tomorrow for a follow up on Tuesday or Tuesday. Pain medications - tramadol, 1 pill every 6 hours as needed. This medication may make you sleepy. Scripts Fluconazole (Diflucan) 150 Mg Tablet 150 MG PO ONCE, #2 TAB take one today and repeat 1 tablet in 7 days Prov: SUSHMA SHERWOOD MD 10/10/22 Ondansetron (Ondansetron Odt) 4 Mg Tab.rapdis 4 MG SL Q8H PRN for NAUSEA/VOMITING, #20 TAB Prov: SUSHMA SHERWOOD MD 10/10/22 Doxycycline Hyclate (Doxycycline Hyclate) 100 Mg Tablet 100 MG PO BID, #20 TAB 0 Refills Prov: SUSHMA SHERWOOD MD 10/10/22 Amoxicillin (Amoxicillin) 875 Mg Tablet 875 MG PO BID, #20 TAB Prov: SUSHMA SHERWOOD MD 10/10/22 Tramadol HCl (Tramadol HCl) 50 Mg Tablet 50 MG PO Q6H PRN for PAIN, #12 TAB 0 Refills Prov: SUSHMA SHERWOOD MD 10/10/22 Copy Copies To 1: KAYLA GUTIERREZ MD, KATHRYN M MD Oct 10, 2022 15:25
[2022-10-10 15:52] LABS: BASOPHILS # (AUTO) 0.1 10^3/uL (0.0-0.1); BASOPHILS % (AUTO) 1 % (0-10); EOSINOPHILS # (AUTO) 0.3 10^3/uL (0.0-0.3); EOSINOPHILS % (AUTO) 2 % (0-10); HEMATOCRIT 44 % (35-52); LYMPHOCYTES # (AUTO) 1.8 10^3/uL (1.0-4.0); LYMPHOCYTES % (AUTO) 16 % (12-44); MEAN CORPUSCULAR HEMOGLOBIN 28 pg (25-34); MEAN CORPUSCULAR HGB CONC 34 g/dL (32-36); MEAN CORPUSCULAR VOLUME 84 fL (80-99); MEAN PLATELET VOLUME 8.7 fL (9.0-12.2); MONOCYTES # (AUTO) 0.7 10^3/uL (0.0-1.0); MONOCYTES % (AUTO) 6 % (0-12); NEUTROPHILS # (AUTO) 8.9 10^3/uL (1.8-7.8); NEUTROPHILS % (AUTO) 76 % (42-75); PLATELET COUNT 264 10^3/uL (130-400); WHITE BLOOD COUNT 11.8 10^3/uL (4.3-11.0)
[2022-10-10 16:08] LABS: CALCIUM 9.6 MG/DL (8.5-10.1); CREATININE SERUM 1.06 MG/DL (0.60-1.30); POTASSIUM 4.6 MMOL/L (3.6-5.0)
[2022-10-10] MEDS ORDERED: AMOX875T2 PO (16:44)
[2022-10-10] MEDS ORDERED: FLUC150T PO (16:44)
[2022-10-10] MEDS ORDERED: ONDA4TAB11 SL (16:44)
[2022-10-10] MEDS ORDERED: DOXY100T2 PO (16:44)
[2022-10-10] MEDS ORDERED: TRM50T PO (16:44)
[2022-10-10] MEDS ORDERED: ONDANSETRON 4 MG (ZOFRAN) ORAL DISSOLVE TAB PO ONE (17:15)
[2022-10-10 17:19] VITALS: BP 157/77
== END 2022-10-10 17:19 | disposition home or self-care (01) ==
LOC: EDUNIT# 14:51 → ER 14:55
DX: L03.115 Cellulitis of right lower limb (principal); E11.628 Type 2 diabetes mellitus with other skin complications; S91.111A Laceration without foreign body of right great toe without damage to nail, initial encounter; Z79.4 Long term (current) use of insulin; Z88.5 Allergy status to narcotic agent; Z88.2 Allergy status to sulfonamides; W45.8XXA Other foreign body or object entering through skin, initial encounter; X50.1XXA Overexertion from prolonged static or awkward postures, initial encounter
CPT/HCPCS: 36415; 80048; 83605; 85025; 87040

== ENCOUNTER 2022-10-13 08:44 | Inpatient (IN) | payer MEDICARE ==
[~2022-10-13] VITALS: Ht 165.1 cm; Wt 127.3 kg
[~2022-10-13 08:44] MED LIST changes: +AMOX875T2 PO; +DOXY100T2 PO; +ONDA4TAB11 SL
--- NOTE | 2022-10-13 09:37 | ED Lower Extremity ---
General Chief Complaint: Lower Extremity Stated Complaint: CELLULITIS Nursing Triage Note: ARRIVED VIA EMS FOR CONTINUED COMPLAINTS OF CELLULITIS TO THE RIGHT LEG. WAS SEEN HERE LAST LAST WEEK FOR THE SAME COMPLAINT. (ELIZA CARDOZO) Source: patient, old records Exam Limitations: no limitations (QING GODDARD MD) History of Present Illness Date Seen by Provider: Oct 13, 2022 Time Seen by Provider: 09:16 Initial Comments 67 yo female with hx of DM presents to the ED with chief complaint of worsening cellulitis to the right leg. Pt was seen on 10/10/22 for swollen painful right red leg. Today patient reports that her leg swelling and redness has not improved and has continued to travel up her leg. Has been taking antibiotics as indicated. Says that she has continued pain, swelling, redness, burning and stinging in right leg. Has had increased difficulty in walking. Pt says she has been more confused. Pt on 2L O2 NC and normally not on O2. Denies any CP or SOB. No fever. No hx of clots. Previous ED visit summary 10/10- Pt initially started having pain in her leg with redness last week after she bumped into a TV stand. She twisted her foot and ended up with a small cut on the bottom of her right foot. She went to [facility] and was prescribed Bactrim and took 5 doses on Tuesday and then she came to ED due to continued redness and swelling. No signs of Sepsis based on findings at ED visit. Discharged from ED with Amoxicillin and doxycycline, probiotic and Diflucan to prevent yeast infection and Tramadol for pain. (ELIZA CARDOZO) Allergies and Home Medications Allergies Coded Allergies: exenatide (Unverified Allergy, Unknown, 03/24/22) methylphenidate (Unverified Allergy, Unknown, 03/24/22) morphine (Verified Adverse Reaction, Mild, NAUSEA, 05/19/16) sulfamethoxazole (Unverified Adverse Reaction, Unknown, 10/13/22) HALLUCINATIONS trimethoprim (Unverified Adverse Reaction, Unknown, 10/13/22) HALLUCINATIONS Patient Home Medication List Home Medication List Reviewed: Yes (ELIZA CARDOZO) Amoxicillin (Amoxicillin) 875 Mg Tablet, 875-1,750 MG PO BID, (Reported) Entered as Reported by: JUAN RAMON FELDMAN on 10/14/22 1321 Last Action: Held Bupropion HCl (Bupropion HCl Sr) 100 Mg Tablet.er, 100 MG PO DAILY, (Reported) Entered as Reported by: JUAN RAMON FELDMAN on 10/14/221320 Last Action: Continued Doxycycline Hyclate (Doxycycline Hyclate) 100 Mg Tablet, 100-200 MG PO BID, (Reported) Entered as Reported by: JUAN RAMON FELDMAN on 10/14/221320 Last Action: Held Dulaglutide (Trulicity) 3 Mg/0.5 Ml Pen.injctr, 3 MG SQ TUESDAY, (Reported) Entered as Reported by: JUAN RAMON FELDMAN on 10/14/221320 Last Action: Held Fluconazole (Fluconazole) 150 Mg Tablet, 150 MG PO WEEKLY, (Reported) Entered as Reported by: JUAN RAMON FELDMAN on 10/14/221320 Last Action: Held Fluticasone Propionate (Flonase Allergy Relief) 50 Mcg/Actuation [place].susp, 1 SPRAY NS DAILY PRN for CONGESTION, (Reported) Entered as Reported by: JUAN RAMON FELDMAN on 10/14/221320 Last Action: Converted Gabapentin (Gabapentin) 800 Mg Tablet, 800 MG PO TID, (Reported) Entered as Reported by: JUAN RAMON FELDMAN on 10/14/221320 Last Action: Held Glucosamine HCl/Chondr Bentley A Na (Osteo Bi-Flex Caplet) 1 Each Tablet, 1 EACH PO DAILY, (Reported) Entered as Reported by: ABEL FEDLMAN on 08/07/20 1450 Last Action: Reviewed Hydroxyzine HCl (Hydroxyzine HCl) 50 Mg Tablet, 50 MG PO HS, (Reported) Entered as Reported by: JUAN RAMON FELDMAN on 10/14/221320 Last Action: Converted Ibuprofen (Ibuprofen) 200 Mg Capsule, 400-600 MG PO Q8H PRN for PAIN-MILD (1-4), (Reported) Entered as Reported by: PRASANTH TELLO on 12/23/201613 Last Action: Held Insulin Aspart (Novolog Flexpen) 100 Unit/Ml (3 Ml) Solution, 16 UNITS SC TIDPC, (Reported) Entered as Reported by: PRASANTH TELLO on 12/23/201613 Last Action: Reviewed Insulin Degludec (Tresiba Flextouch U-100) 100 Unit/1 Ml Insuln.pen, 60 UNITS SC HS, (Reported) Entered as Reported by: PRASANTH TELLO on 12/23/201613 Last Action: Reviewed L.acidoph & Paracasei,B.lactis (Probiotic) 1 Each Capsule, 1 EACH PO DAILY, (Reported) Entered as Reported by: ABEL FELDMAN on 08/07/201449 Last Action: Reviewed Losartan Potassium (Losartan Potassium) 100 Mg Tablet, 100 MG PO DAILY PRN for BLOOD PRESSURE, (Reported) Entered as Reported by: ABEL FELDMAN on 08/07/201449 Last Action: Reviewed Lutein (Lutein) 40 Mg Capsule, 40 MG PO DAILY, (Reported) Entered as Reported by: PRASANTH TELLO on 12/23/201617 Last Action: Reviewed Multivitamin with Minerals (Multiple Vitamin) 1 Each Tablet, 1 EACH PO DAILY, (Reported) Entered as Reported by: ABEL FELDMAN on 08/07/201449 Last Action: Reviewed Omeprazole (Omeprazole) 40 Mg Capsule.dr, 40 MG PO DAILY PRN for HEARTBURN, (Reported) Entered as Reported by: PRASANTH TELLO on 12/23/201613 Last Action: Reviewed Tramadol HCl (Tramadol HCl) 50 Mg Tablet, 50 MG PO Q6H PRN for PAIN-MODERATE (5- 7), (Reported) Entered as Reported by: JUAN RAMON FELDMAN on 10/14/221320 Last Action: Continued Triamcinolone Acet (Triamcinolone Acetonide 0.1% Ointment) 0.1 % Oint, 1 APPLIC TP DAILY PRN for ITCHING, (Reported) Entered as Reported by: JUAN RAMON FELDMAN on 10/14/221320 Last Action: Continued Vit A/C/E/Zinc/Co (Preservision Areds Softgel) 1 Cap Capsule, 1 CAP PO DAILY, (Reported) Entered as Reported by: ABEL FELDMAN on 08/07/201449 Last Action: Reviewed Discontinued Medications Amoxicillin (Amoxicillin) 875 Mg Tablet, 875 MG PO BID Discontinued Reason: No Longer Taking Prescribed by: SUSHMA SHERWOOD on 10/10/22 1644 Last Action: Discontinued Bupropion HCl (Bupropion Xl) 150 Mg Tab.er.24h, 150 MG PO DAILY, (Reported) Discontinued Reason: No Longer Taking Entered as Reported by: PRASANTH TELLO on 12/23/201613 Last Action: Discontinued Bupropion HCl (Bupropion Xl) 300 Mg Tab.er.24h, 300 MG PO DAILY, (Reported) Discontinued Reason: No Longer Taking Entered as Reported by: PRASANTH TELLO on 12/23/201613 Last Action: Discontinued Bupropion HCl (Bupropion HCl Sr) 100 Mg Tablet.er, 100 MG PO BID Discontinued Reason: Duplicate Order Prescribed by: BLANCHE MEDELLIN on 10/14/22 1010 Last Action: Discontinued Buspirone HCl (Buspirone HCl) 30 Mg Tablet, 30 MG PO BID, (Reported) Discontinued Reason: No Longer Taking Entered as Reported by: PRASANTH TELLO on 12/23/201613 Last Action: Discontinued Clonazepam (Clonazepam) 0.5 Mg Tablet, 0.25 MG PO PRN Discontinued Reason: No Longer Taking Prescribed by: BLANCHE MEDELLIN on 10/14/22 0951 Last Action: Discontinued Doxycycline Hyclate (Doxycycline Hyclate) 100 Mg Tablet, 100 MG PO BID Discontinued Reason: Duplicate Order Prescribed by: SUSHMA SHERWOOD on 10/10/221643 Last Action: Discontinued Dulaglutide (Trulicity) 3 Mg/0.5 Ml Pen.injctr, 3 MG SQ WEEK Discontinued Reason: Duplicate Order Prescribed by: BLANCHE MEDELLIN on 10/14/22 0950 Last Action: Discontinued Fluconazole (Diflucan) 150 Mg Tablet, 150 MG PO ONCE Discontinued Reason: No Longer Taking Prescribed by: SUSHMA SHERWOOD on 10/10/22 164 Last Action: Discontinued Gabapentin (Gabapentin) 600 Mg Tablet, 800 MG PO TID, (Reported) Discontinued Reason: Duplicate Order Entered as Reported by: PRASANTH TELLO on 12/23/201613 Last Action: Discontinued Lorazepam (Ativan) 0.5 Mg Tablet, 0.5 MG PO BID PRN for ANXIETY Discontinued Reason: No Longer Taking Prescribed by: HERMILA SWAIN on 12/24/20 1111 Last Action: Discontinued Ondansetron (Ondansetron Odt) 8 Mg Tab.rapdis, 8 MG SL Q4H PRN for NAUSEA/VOMITING Discontinued Reason: No Longer Taking Prescribed by: DANIELLE KEARNS MD on 08/30/22 0029 Last Action: Discontinued Ondansetron (Ondansetron Odt) 4 Mg Tab.rapdis, 4 MG SL Q8H PRN for NAUSEA/VOMITING Discontinued Reason: No Longer Taking Prescribed by: SUSHMA SHERWOOD on 10/10/22 1644 Last Action: Discontinued Ramelteon (Ramelteon) 8 Mg Tablet, 8 MG PO HS PRN for SLEEP Discontinued Reason: No Longer Taking Prescribed by: BLANCHE MEDELLIN on 10/14/22 1010 Last Action: Discontinued Suvorexant (Belsomra) 20 Mg Tablet, 20 MG PO HS PRN for SLEEP Discontinued Reason: No Longer Taking Prescribed by: BLANCHE MEDELLIN on 10/14/22 0950 Last Action: Discontinued Tramadol HCl (Tramadol HCl) 50 Mg Tablet, 50 MG PO Q6H PRN for PAIN Discontinued Reason: Duplicate Order Prescribed by: SUSHMA SHERWOOD on 10/10/22 1645 Last Action: Discontinued Review of Systems Constitutional: No fever, No weakness EENTM: see HPI Respiratory: no symptoms reported; No short of breath Cardiovascular: no symptoms reported; No chest pain Gastrointestinal: no symptoms reported Genitourinary: no symptoms reported Musculoskeletal: other (LE leg pain ) Skin: change in color Psychiatric/Neurological: No Symptoms Reported (Right LE erythema, swelling, and warmth) (ELIZA CARDOZO) All Other Systems Reviewed Negative Unless Noted: Yes (ELIZA CARDOZO) Past Xpqsnoy-Ojanrp-Frmyoh Hx Patient Social History Tobacco Use?: No Substance use?: No Alcohol Use?: No (ELIZA CARDOZO) Immunizations Up To Date Tetanus Booster (TDap): Unknown PED Vaccines UTD: No First/Initial COVID19 Vaccinat: 2020 Second COVID19 Vaccination Dae: 2020 Third COVID19 Vaccination Date: 07/2021 COVID19 Vaccine Deck Hand: UNKNOWN (ELIZA CARDOZO) Seasonal Allergies Seasonal Allergies: Yes (ELIZA CARDOZO) Past Medical History Surgeries: Yes Abdominal, Section, Hysterectomy, Orthopedic Respiratory: Yes (03/26/2022 - DENIES) COPD Currently Using CPAP: No Currently Using BIPAP: No Cardiac: Yes Hypertension Neurological: Yes Dementia 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 Disorders: No 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, 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 Sexually Transmitted Disease: No HIV/AIDS: No Genitourinary: No Gastrointestinal: Yes Gastroesophageal Reflux, Hiatal Hernia Musculoskeletal: Yes (LEFT TOTAL KNEE REPLACEMENT) Arthritis Endocrine: Yes Diabetes, Insulin dep HEENT: Yes Cataract Hearing Impairment: Denies Cancer: No (RT LEG) Melanoma Psychosocial: Yes ADD/ADHD, Eating Disorder, Anxiety, Depression Integumentary: Yes Psoriasis Blood Disorders: No Adverse Reaction/Blood Tranf: No (ELIZA CARDOZO) Family Medical History AIDS Alcoholism Arthritis Asthma Cataracts Coronary thrombosis Diabetes mellitus Drug abuse Glaucoma Psychosocial problem Respiratory disorder No Family History of: Brookings's disease Alzheimer's disease Aphasia Cancer of mouth Cardiovascular disease Colon cancer Completed stroke Congenital disease Congenital heart disease Cystic fibrosis Deafness or hearing loss Dementia Dysphasia Fibrocystic disease of breast Gastroenteritis Headache disorder Hypercholesterolemia Hypertension Infertility Kidney disease Myocardial infarction Neoplasm Not obtainable due to adoption Osteoporosis Parkinson's disease Prostate cancer Seizure disorder Severe allergy Thyroid disease Tuberculosis Visual disorder No Pertinent Family Hx (ELIZA CARDOZO) Physical Exam Vital Signs Vital Signs - First Documented 10/13/22 08:44 Temp 36.5 Pulse 74 Resp 16 B/P (MAP) 149/61 (90) Pulse Ox 99 O2 Delivery Room Air (QING GODDARD MD) Vital Signs Capillary Refill : Less Than 3 Seconds (ELIZA CARDOZO) Height, Weight, BMI Height: 5'65.00" Weight: 252lbs. 14.0oz. 114.533485wo; 41.00 BMI Method:Stated General Appearance: WD/WN, no apparent distress HEENT: PERRL/EOMI, normal ENT inspection, TMs normal, pharynx normal Neck: non-tender, full range of motion, supple, normal inspection Cardiovascular: regular rate, rhythm, no edema, no gallop, no JVD, no murmur Respiratory: chest non-tender, lungs clear, normal breath sounds, no respiratory distress, no accessory muscle use Gastrointestinal: normal bowel sounds, non tender, soft, no organomegaly, no pulsatile mass Back: normal inspection, no CVA tenderness, no vertebral tenderness Legs: left leg normal inspection; right leg pain, right leg soft tissue tenderness, right leg swelling Neurologic/Tendon: normal sensation, normal motor functions 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 small bloster to the medial aspect of the right LE. no drainage. significant swelling. no open wounds other than a 2-3mm "cut" on the plantar surface of the right foot at the area of the MTP join), warm/dry Lymphatic: no adenopathy (ELIZA CARDOZO) Progress/Results/Core Measures Results/Orders Lab Results Laboratory Tests Test 10/13/22 09:50 10/13/22 12:12 Range/Units White Blood Count 10.5 4.3-11.0 10^3/uL Red Blood Count 5.14 H 3.80-5.11 10^6/uL Hemoglobin 14.6 11.5-16.0 g/dL Hematocrit 43 35-52 % Mean Corpuscular Volume 84 80-99 fL Mean Corpuscular Hemoglobin 28 25-34 pg Mean Corpuscular Hemoglobin Concent 34 32-36 g/dL Red Cell Distribution Width 13.9 10.0-14.5 % Platelet Count 247 130-400 10^3/uL Mean Platelet Volume 8.9 L 9.0-12.2 fL Immature Granulocyte % (Auto) 1 % Neutrophils (%) (Auto) 81 H 42-75 % Lymphocytes (%) (Auto) 11 L 12-44 % Monocytes (%) (Auto) 4 0-12 % Eosinophils (%) (Auto) 3 0-10 % Basophils (%) (Auto) 1 0-10 % Neutrophils # (Auto) 8.5 H 1.8-7.8 10^3/uL Lymphocytes # (Auto) 1.1 1.0-4.0 10^3/uL Monocytes # (Auto) 0.4 0.0-1.0 10^3/uL Eosinophils # (Auto) 0.3 0.0-0.3 10^3/uL Basophils # (Auto) 0.1 0.0-0.1 10^3/uL Immature Granulocyte # (Auto) 0.1 0.0-0.1 10^3/uL D-Dimer 0.75 H 0.00-0.49 UG/ML Sodium Level 125 *L 135-145 MMOL/L Potassium Level 4.8 3.6-5.0 MMOL/L Chloride Level 89 L 98-107 MMOL/L Carbon Dioxide Level 24 21-32 MMOL/L Anion Gap 11 5-14 MMOL/L Blood Urea Nitrogen 22 H 7-18 MG/DL Creatinine 1.12 0.60-1.30 MG/DL Estimat Glomerular Filtration Rate 53 BUN/Creatinine Ratio 20 Glucose Level 328 H 70-105 MG/DL Calcium Level 9.5 8.5-10.1 MG/DL C-Reactive Protein High Sensitivity 15.16 H 0.00-0.50 MG/DL B-Type Natriuretic Peptide 37.0 <100.0 PG/ML Glucometer 273 H 70-110 MG/DL (QING GODDARD MD) My Orders Orders - QING GODDARD MD Basic Metabolic Panel (10/13/22 08:55) Cbc With Automated Diff (10/13/22 08:55) Hs C Reactive Protein (10/13/22 08:55) Ed Iv/Invasive Line Start (10/13/22 08:55) Fibrin Degradation Products (10/13/22 09:20) Us Venous Lower Ext Rt (10/13/22 10:55) Ns Iv 1000 Ml (Sodium Chloride 0.9%) (10/13/22 11:00) Bnp [place] (10/13/22 10:59) Chest 1 View, Ap/Pa Only (10/13/22 10:59) Fentanyl Inj (Sublimaze Injection) (10/13/22 11:30) Piperacillin Sodium/Tazobactam (Zosyn Vi (10/13/22 12:45) Vancomycin Injection (Vancomycin Injecti (10/13/22 12:45) Code/Resuscitation (10/13/22 12:51) Cho 60g/M 3snack (16-2000 David) (10/13/22 Lunch) Vancomycin Injection (Vancomycin Injecti (10/13/22 13:30) Ed Admission (Communication) (10/13/22 14:00) (QING GODDARD MD) Medications Given in ED (QING GODDARD MD) Vital Signs/I&O 10/13/22 08:44 Temp 36.5 Pulse 74 Resp 16 B/P (MAP) 149/61 (90) Pulse Ox 99 O2 Delivery Room Air (QING GODDARD MD) Blood Pressure Mean: 90 Progress Progress Note #1: Time: 12:46 Progress Note Patient was interviewed and examined along with MS 3. She has essentially failed 2 attempts at outpatient antibiotic therapy. Ultrasound of the right lower extremity was negative for DVT. Antibiotic therapy is being initiated with Zosyn and vancomycin. Case was discussed with Dr. Swain who is agreeable to admission. I discussed CODE STATUS with the patient and she wishes to remain full code. Patient's pain was treated with fentanyl. She was placed on nasal cannula oxygen support as her oxygen saturation was 90% prior to receiving opioids. She does not complain of respiratory symptoms and chest x-ray was negative. Progress Note #2: Time: 16:33 Progress Note Patient has experienced a prolonged ER course due to bed transitioning. She is awaiting her bed availability as discharges are leaving the hospital. (QING GODDARD MD) Diagnostic Imaging Diagonstic Imaging: Xray Plain Films/CT/US/NM/MRI: chest Comments NAME: [facility] REC#: [id number] PT STATUS: REG ER : 1955 PHYSICIAN: QING GODDARD MD ADMIT DATE: 10/13/22/ER Signed Date of Exam:10/13/22 CHEST 1 VIEW, AP/PA ONLY EXAMINATION: Chest 1 view HISTORY: SOA, Hyponatremia COMPARISON: 10/06/2022 FINDINGS: Heart size and pulmonary vasculature are stable. The lungs are clear without consolidation, pleural effusion, or pneumothorax. The osseous structures are intact. IMPRESSION: 1. No acute radiographic abnormality in the chest. Dictated by: Dictated on workstation # [id number] Dict: 10/13/22 1134 Trans: 10/13/22 1150 [facility] [id number] Interpreted by: SMOOTH MANNING DO Electronically signed by: SMOOTH MANNING DO 10/13/22 1150 Diagonstic Imaging: Ultrasound Plain Films/CT/US/NM/MRI: leg Comments NAME: BUBB[facility]JANEEN [facility] REC#: [id number] PT STATUS: REG ER : 1955 PHYSICIAN: QING GODDARD MD ADMIT DATE: 10/13/22/ER Draft Date of Exam:10/13/22 US VENOUS LOWER EXT RT PROCEDURE: US right lower extremity venous. TECHNIQUE: Multiple real-time grayscale images were obtained over the right lower extremity in various projections. Additional spectral analysis and color Doppler duplex images were also obtained. INDICATION: Right leg swelling. There is no evidence of right lower extremity DVT. Right lower extremity deep venous system demonstrates normal compressibility with normal response to augmentation and Valsalva. No fluid collection or mass is detected. IMPRESSION: No evidence of right lower extremity DVT. Dictated on workstation # [id number] Dict: 10/13/22 1219 Trans: 10/13/22 1223 [facility] [id number] Interpreted by: MANUEL MCCLELLAND MD (QING GODDARD MD) Departure Communication (Admissions) Time/Spoke to Admitting Phy: 12:40 Dr. Swain Time/Spoke to Consulting Phy: 13:05 Dr. Villafuerte (QING GODDARD MD) Impression Primary Impression: Cellulitis of right lower extremity Additional Impressions: Hyperglycemia Hyponatremia Disposition: ADMITTED INPATIENT Condition: Stable Admissions Decision to Admit Reason: Admit from ER (General) Decision to Admit/Date: Oct 13, 2022 Time/Decision to Admit Time: 12:40 (QING GODDARD MD) Departure-Patient Inst. Referrals: KAYLA GUTIERREZ MD (PCP/Family) Primary Care Physician Medical Student Attestation and Attending Note: I have personally interviewed and examined this patient along with Eliza Cardozo, MS 3. I have reviewed student documentation including history, physical, and assessments. I agree with the documentation except where otherwise noted. Exam: General: Alert, oriented, no acute distress, well developed HEENT: Normocephalic and atraumatic Heart: Regular rate and rhythm without murmur Lungs: Clear to auscultation bilaterally with normal effort Abdomen: Soft, nontender, nondistended, normal bowel sounds Neuropsych: Alert, oriented, no focal deficits Extremities: Both lower extremities have mild to moderate pitting edema, right greater than left. There is warm bright erythema on the right lower extremity extending from the foot up through the majority of the lower leg. There is a small scabbed wound proximal to the plantar aspect of the right great toe. Skin: As above (QING GODDARD MD) Copy Copies To 1: KAYLA GUTIERREZ MD, ANISHA T Oct 13, 2022 09:37 QING GODDARD MD Oct 13, 2022 12:50
[2022-10-13 10:01] LABS: BASOPHILS # (AUTO) 0.1 10^3/uL (0.0-0.1); BASOPHILS % (AUTO) 1 % (0-10); EOSINOPHILS # (AUTO) 0.3 10^3/uL (0.0-0.3); EOSINOPHILS % (AUTO) 3 % (0-10); HEMATOCRIT 43 % (35-52); HEMOGLOBIN 14.6 g/dL (11.5-16.0); LYMPHOCYTES # (AUTO) 1.1 10^3/uL (1.0-4.0); LYMPHOCYTES % (AUTO) 11 % (12-44); MEAN CORPUSCULAR HEMOGLOBIN 28 pg (25-34); MEAN CORPUSCULAR HGB CONC 34 g/dL (32-36); MEAN CORPUSCULAR VOLUME 84 fL (80-99); MEAN PLATELET VOLUME 8.9 fL (9.0-12.2); MONOCYTES # (AUTO) 0.4 10^3/uL (0.0-1.0); MONOCYTES % (AUTO) 4 % (0-12); NEUTROPHILS # (AUTO) 8.5 10^3/uL (1.8-7.8); NEUTROPHILS % (AUTO) 81 % (42-75); PLATELET COUNT 247 10^3/uL (130-400); WHITE BLOOD COUNT 10.5 10^3/uL (4.3-11.0)
[2022-10-13 10:13] LABS: CALCIUM 9.5 MG/DL (8.5-10.1)
[2022-10-13 10:15] LABS: POTASSIUM 4.8 MMOL/L (3.6-5.0)
[2022-10-13 10:17] LABS: CREATININE SERUM 1.12 MG/DL (0.60-1.30)
[2022-10-13] MEDS ORDERED: NS IV 1000 ML 1,000 ML IV SCH (11:00)
[2022-10-13] MEDS ORDERED: fentaNYL INJ 100 MCG/2 ML AMP IVP ONE (11:30)
--- NOTE | 2022-10-13 11:39 | Diagnostic Imaging Report ---
EXAMINATION: Chest 1 view HISTORY: SOA, Hyponatremia COMPARISON: 10/06/2022 FINDINGS: Heart size and pulmonary vasculature are stable. The lungs are clear without consolidation, pleural effusion, or pneumothorax. The osseous structures are intact. IMPRESSION: 1. No acute radiographic abnormality in the chest. Dictated by: Dictated on workstation # [id number]
--- NOTE | 2022-10-13 12:23 | Diagnostic Imaging Report ---
PROCEDURE: US right lower extremity venous. TECHNIQUE: Multiple real-time grayscale images were obtained over the right lower extremity in various projections. Additional spectral analysis and color Doppler duplex images were also obtained. INDICATION: Right leg swelling. There is no evidence of right lower extremity DVT. Right lower extremity deep venous system demonstrates normal compressibility with normal response to augmentation and Valsalva. No fluid collection or mass is detected. IMPRESSION: No evidence of right lower extremity DVT. Dictated by: Dictated on workstation # [id number]
[2022-10-13] MEDS ORDERED: PIPERACILLIN SODIUM/TAZOBACTAM 4.5 GM in NS (IVPB) 100 ML IV ONE (12:45)
[2022-10-13] MEDS ORDERED: VANCOMYCIN INJECTION 1,000 MG in NS (IVPB) 250 ML IV SCH (12:45)
[2022-10-13] MEDS ORDERED: VANCOMYCIN 2000 MG/NS 500 ML IVPB IV NR ×2 (13:30)
--- NOTE | 2022-10-13 15:16 | Consultation - Surgery ---
GILDA SANDY 10/13/22 1516: History of Present Illness History of Present Illness Patient Consulted On(becky/time) 10/13/22 15:10 Date Seen by Provider: Oct 13, 2022 Time Seen by Provider: 14:00 History of Present Illness Reason for Consult: Failed Outpatient Treatment of Cellulitits and Swelling of Right Lower Extremity Loida Jeff is a 67yo female with past medical history of DM, HTN, COPD, GERD, and methicillin-resistant staph aureus presenting to the ED with worsening cellulitis and failed out-patient treatment. Pt acquired foot lesion by hitting her foot against TV which began her pain. Pt reported to walk-in clinic last Tuesday which is when she started out-patient treatment with Bactrim. 10/10/22 pt was reported back to the ED due to worsening symptoms, and was discharged with Amoxicillin, Doxycycline, Probiotic and Diflucan to prevent yeast infection, and Tramadol for pain. Today pt presents with worsening cellulitis of R. LE. Pt states she has a constant stabbing pain of right lower extremity that began at the foot but now has spread to the right lower extremity below the knee, and describes it as like "walking on hot coal". Walking and movement of lower extremity makes the pain worse. When the patient was first diagnosed with Cellulits, elevation alleviated the pain and swelling, but Tuesday night, elevation started to aggravate the right lower extremity. Pt states pain is a 10/10 without pain medication, but with pain medication it is about a 4-5/10. Pt denies fever, vomiting, chest pain, and headache. Allergies and Home Medications Allergies Coded Allergies: exenatide (Unverified Allergy, Unknown, 03/24/22) methylphenidate (Unverified Allergy, Unknown, 03/24/22) morphine (Verified Adverse Reaction, Mild, NAUSEA, 05/19/16) sulfamethoxazole (Unverified Adverse Reaction, Unknown, 10/13/22) HALLUCINATIONS trimethoprim (Unverified Adverse Reaction, Unknown, 10/13/22) HALLUCINATIONS Patient Home Medication List Amoxicillin (Amoxicillin) 875 Mg Tablet, 875 MG PO BID Prescribed by: SUSHMA SHERWOOD on 10/10/22 6236 Bupropion HCl (Bupropion Xl) 150 Mg Tab.er.24h, 150 MG PO DAILY, (Reported) Entered as Reported by: PRASANTH TELLO on 12/23/201613 Bupropion HCl (Bupropion Xl) 300 Mg Tab.er.24h, 300 MG PO DAILY, (Reported) Entered as Reported by: PRASANTH TELLO on 12/23/201613 Buspirone HCl (Buspirone HCl) 30 Mg Tablet, 30 MG PO BID, (Reported) Entered as Reported by: PRASANTH TELLO on 12/23/201613 Doxycycline Hyclate (Doxycycline Hyclate) 100 Mg Tablet, 100 MG PO BID Prescribed by: SUSHMA SHERWOOD on 10/10/221643 Fluconazole (Diflucan) 150 Mg Tablet, 150 MG PO ONCE Prescribed by: SUSHMA SHERWOOD on 10/10/221643 Gabapentin (Gabapentin) 600 Mg Tablet, 600 MG PO TID, (Reported) Entered as Reported by: PRASANTH TELLO on 12/23/201613 Glucosamine HCl/Chondr Bentley A Na (Osteo Bi-Flex Caplet) 1 Each Tablet, 1 EACH PO DAILY, (Reported) Entered as Reported by: ABEL FELDMAN on 08/07/20 145 Ibuprofen (Ibuprofen) 200 Mg Capsule, 400-600 MG PO Q8H PRN for PAIN-MILD (1-4), (Reported) Entered as Reported by: PRASANTH TELLO on 12/23/201613 Insulin Aspart (Novolog Flexpen) 300 Units/3 Ml Solution, 16 UNITS SC TIDPC, (Reported) Entered as Reported by: PRASANTH TELLO on 12/23/201613 Insulin Degludec (Tresiba Flextouch U-100) 100 Unit/1 Ml Insuln.pen, 60 UNITS SC HS, (Reported) Entered as Reported by: PRASANTH TELLO on 12/23/201613 L.acidoph & Paracasei,B.lactis (Probiotic) 1 Each Capsule, 1 EACH PO DAILY, (Reported) Entered as Reported by: ABEL FELDMAN on 08/07/20 1450 Lorazepam (Ativan) 0.5 Mg Tablet, 0.5 MG PO BID PRN for ANXIETY Prescribed by: HERMILA SWAIN on 12/24/20 1111 Losartan Potassium (Losartan Potassium) 100 Mg Tablet, 100 MG PO DAILY, (Reported) Entered as Reported by: ABEL FELDMAN on 08/07/20 1450 Lutein (Lutein) 40 Mg Capsule, 40 MG PO DAILY, (Reported) Entered as Reported by: PRASANTH TELLO on 12/23/20 1618 Multivitamin with Minerals (Multiple Vitamin) 1 Each Tablet, 1 EACH PO DAILY, ( Reported) Entered as Reported by: ABEL FELDMAN on 08/07/20 1450 Omeprazole (Omeprazole) 40 Mg Capsule.dr, 40 MG PO DAILY, (Reported) Entered as Reported by: PRASANTH TELLO on 12/23/20 1614 Ondansetron (Ondansetron Odt) 8 Mg Tab.rapdis, 8 MG SL Q4H PRN for NAUSEA/VOMITING Prescribed by: DANIELLE KEARNS MD on 08/30/22 0029 Ondansetron (Ondansetron Odt) 4 Mg Tab.rapdis, 4 MG SL Q8H PRN for NAUSEA/VOMITING Prescribed by: SUSHMA SHERWOOD on 10/10/22 1644 Tramadol HCl (Tramadol HCl) 50 Mg Tablet, 50 MG PO Q6H PRN for PAIN Prescribed by: SUSHMA SHERWOOD on 10/10/22 1645 Vit A/C/E/Zinc/Co (Preservision Areds Softgel) 1 Cap Capsule, 1 CAP PO DAILY, (Reported) Entered as Reported by: ABEL FELDMAN on 08/07/20 1450 Past Otgyqyo-Vjkyof-Qfybnx Hx Patient Social History Drug of Choice: PT DENIES Former Smoker, Quit: Feb 18, 2016 Type Used: Cigarettes 2nd Hand Smoke Exposure: Yes Recent Hopitalizations: No Alcohol Use?: No Have you traveled recently?: No Immunizations Up To Date Tetanus Booster (TDap): Unknown PED Vaccines UTD: No Date of Pneumonia Vaccine: Jul 31, 2019 Date of Influenza Vaccine: Jul 31, 2021 Seasonal Allergies Seasonal Allergies: Yes Surgeries History of Surgeries: Yes Surgeries: Abdominal, Section, Hysterectomy, Orthopedic Respiratory History of Respiratory Disorde: Yes (03/26/2022 - DENIES) Respiratory Disorders: COPD Cardiovascular History of Cardiac Disorders: Yes Cardiac Disorders: Hypertension Neurological History of Neurological Disord: Yes Neurological Disorders: Dementia 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 System Hx 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 Disorders: No Sexually Transmitted Disease: No HIV/AIDS: No Female 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 Disorders: Denies 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, 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 Genitourinary History of Genitourinary Disor: No Gastrointestinal History of Gastrointestinal Di: Yes Gastrointestinal Disorders: Gastroesophageal Reflux, Hiatal Hernia Musculoskeletal History of Musculoskeletal Dis: Yes (LEFT TOTAL KNEE REPLACEMENT) Musculoskeletal Disorders: Arthritis Endocrine History of Endocrine Disorders: Yes Endocrine Disorders: Diabetes, Insulin dep HEENT History of HEENT Disorders: Yes HEENT Disorders: Cataract Hearing Impairment: Denies Cancer History of Cancer: No (RT LEG) Cancer: Melanoma Psychosocial History of Psychiatric Problem: Yes Behavioral Health Disorders: ADD/ADHD, Eating Disorder, Anxiety, Depression Integumentary History of Skin or Integumenta: Yes Skin/Integumentary Disorders: Psoriasis Blood Transfusions History of Blood Disorders: No Adverse Reaction to a Blood Tr: No Family Medical History Significant Family History: No Pertinent Family Hx Family Medial History: AIDS Alcoholism Arthritis Asthma Cataracts Coronary thrombosis Diabetes mellitus Drug abuse Glaucoma Psychosocial problem Respiratory disorder No Family History of: Andrew's disease Alzheimer's disease Aphasia Cancer of mouth Cardiovascular disease Colon cancer Completed stroke Congenital disease Congenital heart disease Cystic fibrosis Deafness or hearing loss Dementia Dysphasia Fibrocystic disease of breast Gastroenteritis Headache disorder Hypercholesterolemia Hypertension Infertility Kidney disease Myocardial infarction Neoplasm Not obtainable due to adoption Osteoporosis Parkinson's disease Prostate cancer Seizure disorder Severe allergy Thyroid disease Tuberculosis Visual disorder Review of Systems-General Constitutional: chills; No fever Respiratory: dyspnea on exertion, short of breath Cardiovascular: No chest pain; edema (Right Lower Extremity); No palpitations Gastrointestinal: No abdominal pain; constipation, nausea; No vomiting Genitourinary: No dysuria; frequency; No hematuria Skin: change in color (B/L lower extremities. ), dryness, rash (Stasis Dermatisis B/L ) Psychiatric/Neurological: Denies Headache, Denies Numbness; Tingling (Tingling of R. Foot), Tremors Physical Exam-General Problems Physical Exam Vital Signs Vital Signs - First Documented 10/13/22 08:44 Temp 36.5 Pulse 74 Resp 16 B/P (MAP) 149/61 (90) Pulse Ox 99 O2 Delivery Room Air Capillary Refill : Less Than 3 Seconds General Appearance: no apparent distress HEENT: PERRL/EOMI Respiratory: chest non-tender, lungs clear, normal breath sounds Cardiovascular: normal peripheral pulses, regular rate, rhythm, no edema, no gallop, no murmur Peripheral Pulses: 2+ Radial Pulses (R), 2+ Radial Pulses (L) Gastrointestinal: normal bowel sounds, non tender, soft Rectal: deferred Extremities: pedal edema (Bilaterally), swelling (b/l lower extremity 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: alert, normal mood/affect, oriented x 3 Skin: warm/dry, rash (Stasis Dermatitis b/l lower extermitites ) Data Review Labs Laboratory Tests 10/13/22 09:50: White Blood Count 10.5, Red Blood Count 5.14H, Hemoglobin 14.6, Hematocrit 43, Mean Corpuscular Volume 84, Mean Corpuscular Hemoglobin 28, Mean Corpuscular Hemoglobin Concent 34, Red Cell Distribution Width 13.9, Platelet Count 247, Sangeetha n Platelet Volume 8.9L, Immature Granulocyte % (Auto) 1, Neutrophils (%) (Auto) 81H, Lymphocytes (%) (Auto) 11L, Monocytes (%) (Auto) 4, Eosinophils (%) (Auto) 3, Basophils (%) (Auto) 1, Neutrophils # (Auto) 8.5H, Lymphocytes # (Auto) 1.1, Monocytes # (Auto) 0.4, Eosinophils # (Auto) 0.3, Basophils # (Auto) 0.1, Immature Granulocyte # (Auto) 0.1, D-Dimer 0.75H, Sodium Level 125*L, Potassium Level 4.8, Chloride Level 89L, Carbon Dioxide Level 24, Anion Gap 11, Blood Urea Nitrogen 22H, Creatinine 1.12, Estimat Glomerular Filtration Rate 53, BUN/Creatinine Ratio 20, Glucose Level 328H, Calcium Level 9.5, C-Reactive Protein High Sensitivity 15.16H, B-Type Natriuretic Peptide 37.0 10/13/22 12:12: Glucometer 273H Radiology Date of Exam:10/13/22 CHEST 1 VIEW, AP/PA ONLY IMPRESSION: 1. No acute radiographic abnormality in the chest. Date of Exam:10/13/22 US VENOUS LOWER EXT RT IMPRESSION: No evidence of right lower extremity DVT. Assessment/Plan Assessment/Plan Assessment/Plan Assessment: 1) Cellulitis of Right Lower Extremity 2) Hyponatremia 3) Hyperglycemia Plan: 1) Incision and Drainage of R. Lower Extremity 2) Consider Vasopressin antagonist for Sodium correction 3) Continue supportive measures ROSA EDWARDS DO 10/13/221910: History of Present Illness History of Present Illness Time Seen by Provider: 18:51 History of Present Illness Surgery asked to consult regarding cellulitis. HPI per ED: 67 yo female with hx of DM presents to the ED with chief complaint of worsening cellulitis to the right leg. Pt was seen on 10/10/22 for swollen painful right red leg. Today patient reports that her leg swelling and redness has not improved and has continued to travel up her leg. Has been taking antibiotics as indicated. Says that she has continued pain, swelling, redness, burning and stinging in right leg. Has had increased difficulty in walking. Pt says she has been more confused. Pt on 2L O2 NC and normally not on O2. Denies any CP or SOB. No fever. No hx of clots. Previous ED visit summary 10/10- Pt initially started having pain in her leg with redness last week after she bumped into a TV stand. She twisted her foot and ended up with a small cut on the bottom of her right foot. She went to [facility] and was prescribed Bactrim and took 5 doses on Tuesday and then she came to ED due to continued redness and swelling. No signs of Sepsis based on findings at ED visit. Discharged from ED with Amoxicillin and doxycycline, probiotic and Diflucan to prevent yeast infection and Tramadol for pain. When I spoke to pt tonight she states she thinks the leg actually looks better. Pain is minimal (controlled with meds) and she still has some burning and stinging. Allergies and Home Medications Allergies Coded Allergies: exenatide (Unverified Allergy, Unknown, 03/24/22) methylphenidate (Unverified Allergy, Unknown, 03/24/22) morphine (Verified Adverse Reaction, Mild, NAUSEA, 05/19/16) sulfamethoxazole (Unverified Adverse Reaction, Unknown, 10/13/22) HALLUCINATIONS trimethoprim (Unverified Adverse Reaction, Unknown, 10/13/22) HALLUCINATIONS Patient Home Medication List Home Medication List Reviewed: Yes Amoxicillin (Amoxicillin) 875 Mg Tablet, 875 MG PO BID Prescribed by: SUSHMA SHERWOOD on 10/10/22 1644 Bupropion HCl (Bupropion Xl) 150 Mg Tab.er.24h, 150 MG PO DAILY, (Reported) Entered as Reported by: PRASANTH TELLO on 12/23/20 1614 Bupropion HCl (Bupropion Xl) 300 Mg Tab.er.24h, 300 MG PO DAILY, (Reported) Entered as Reported by: PRASANTH TELLO on 12/23/201613 Buspirone HCl (Buspirone HCl) 30 Mg Tablet, 30 MG PO BID, (Reported) Entered as Reported by: PRASANTH TELLO on 12/23/201613 Doxycycline Hyclate (Doxycycline Hyclate) 100 Mg Tablet, 100 MG PO BID Prescribed by: SUSHMA SHERWOOD on 10/10/221643 Fluconazole (Diflucan) 150 Mg Tablet, 150 MG PO ONCE Prescribed by: SUSHMA SHERWOOD on 10/10/221643 Gabapentin (Gabapentin) 600 Mg Tablet, 600 MG PO TID, (Reported) Entered as Reported by: PRASANTH TELLO on 12/23/201613 Glucosamine HCl/Chondr Bentley A Na (Osteo Bi-Flex Caplet) 1 Each Tablet, 1 EACH PO DAILY, (Reported) Entered as Reported by: ABEL FELDMAN on 08/07/20 145 Ibuprofen (Ibuprofen) 200 Mg Capsule, 400-600 MG PO Q8H PRN for PAIN-MILD (1-4), (Reported) Entered as Reported by: PRASANTH TELLO on 12/23/201613 Insulin Aspart (Novolog Flexpen) 300 Units/3 Ml Solution, 16 UNITS SC TIDPC, (Reported) Entered as Reported by: PRASANTH TELLO on 12/23/201613 Insulin Degludec (Tresiba Flextouch U-100) 100 Unit/1 Ml Insuln.pen, 60 UNITS SC HS, (Reported) Entered as Reported by: PRASANTH TELLO on 12/23/201613 L.acidoph & Paracasei,B.lactis (Probiotic) 1 Each Capsule, 1 EACH PO DAILY, (Reported) Entered as Reported by: ABEL FELDMAN on 08/07/20 145 Lorazepam (Ativan) 0.5 Mg Tablet, 0.5 MG PO BID PRN for ANXIETY Prescribed by: HERMILA SWAIN on 12/24/20 1111 Losartan Potassium (Losartan Potassium) 100 Mg Tablet, 100 MG PO DAILY, (Reported) Entered as Reported by: ABEL FELDMAN on 08/07/20 145 Lutein (Lutein) 40 Mg Capsule, 40 MG PO DAILY, (Reported) Entered as Reported by: PRASANTH TELLO on 12/23/20 1618 Multivitamin with Minerals (Multiple Vitamin) 1 Each Tablet, 1 EACH PO DAILY, (Reported) Entered as Reported by: ABEL FELDMAN on 08/07/20 1450 Omeprazole (Omeprazole) 40 Mg Capsule.dr, 40 MG PO DAILY, (Reported) Entered as Reported by: PRASANTH TELLO on 12/23/20 1614 Ondansetron (Ondansetron Odt) 8 Mg Tab.rapdis, 8 MG SL Q4H PRN for NAUSEA/VO MITING Prescribed by: DANIELLE KEARNS MD on 08/30/22 0029 Ondansetron (Ondansetron Odt) 4 Mg Tab.rapdis, 4 MG SL Q8H PRN for NAUSEA/VOMITING Prescribed by: SUSHMA SHERWOOD on 10/10/22 1644 Tramadol HCl (Tramadol HCl) 50 Mg Tablet, 50 MG PO Q6H PRN for PAIN Prescribed by: SUSHMA SHERWOOD on 10/10/22 1645 Vit A/C/E/Zinc/Co (Preservision Areds Softgel) 1 Cap Capsule, 1 CAP PO DAILY, (Reported) Entered as Reported by: ABEL FELDMAN on 08/07/20 1450 Past Qcycotd-Gzipuz-Dtcpep Hx Patient Social History Smoking Status: Former Smoker Alcohol Use?: No Surgeries History of Surgeries: Yes Surgeries: Abdominal, Section, Hysterectomy, Orthopedic Respiratory History of Respiratory Disorde: Yes Respiratory Disorders: COPD Cardiovascular History of Cardiac Disorders: Yes Cardiac Disorders: Hypertension Neurological History of Neurological Disord: Yes Neurological Disorders: Neuropathy 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 System : No Gastrointestinal History of Gastrointestinal Di: Yes Gastrointestinal Disorders: Gastroesophageal Reflux, Hiatal Hernia Musculoskeletal History of Musculoskeletal Dis: Yes Musculoskeletal Disorders: Arthritis Endocrine History of Endocrine Disorders: Yes Endocrine Disorders: Diabetes, Insulin dep HEENT History of HEENT Disorders: Yes HEENT Disorders: Cataract Loss of Vision: Bilateral Hearing Impairment: Hard of Hearing Cancer History of Cancer: Yes Cancer: Melanoma Psychosocial History of Psychiatric Problem: Yes Behavioral Health Disorders: Anxiety, Depression Integumentary History of Skin or Integumenta: Yes (venous stasis) Skin/Integumentary Disorders: Psoriasis Family Medical History Significant Family History: Cancer (grandfather - colon), Diabetes (mother), Hypertension (mother and father) Family Medial History: AIDS Alcoholism Arthritis Asthma Cataracts Coronary thrombosis Diabetes mellitus Drug abuse Glaucoma Psychosocial problem Respiratory disorder Review of Systems-General Constitutional: chills; No fever EENTM: No eye pain, No mouth swelling, No epistaxis Respiratory: dyspnea on exertion, short of breath Cardiovascular: No chest pain; edema (Right Lower Extremity); No palpitations Gastrointestinal: No abdominal pain; constipation, nausea; No vomiting Genitourinary: No dysuria; frequency; No hematuria Musculoskeletal: joint pain, joint swelling Skin: change in color (B/L lower extremities. ), dryness, rash (Stasis Dermatisis B/L ) Psychiatric/Neurological: Denies Headache, Denies Numbness; Tingling (Tingling of R. Foot), Tremors Physical Exam-General Problems Physical Exam General Appearance: no apparent distress, obese Eyes: Bilateral Eye PERRL, Bilateral Eye EOMI HEENT: pharynx normal; No scleral icterus (R), No scleral icterus (L) Neck: non-tender, supple Respiratory: normal breath sounds, no respiratory distress, no accessory muscle use, crackles (right mid and base, left base) Cardiovascular: regular rate, rhythm, no murmur Gastrointestinal: normal bowel sounds, non tender, soft, no organomegaly Rectal: deferred Extremities: pedal edema (Bilaterally), swelling (b/l lower extremity 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: alert, normal mood/affect, oriented x 3 Skin: warm/dry, other (right leg is much worse than left, more erythema covering almost the entire leg from knee down), rash (Stasis Dermatitis b/l lower extermitites ) Assessment/Plan Assessment/Plan Assessment/Plan Assessment: 1) Cellulitis of Right Lower Extremity with Bilateral venous stasis 2) Hyponatremia 3) Hyperglycemia Plan: 1) IV fluids, IV ABX, will monitor leg and may need CT or US to rule out abscess, follow labs, wound care and elevate leg 2) Consider Vasopressin antagonist for Sodium correction, can also use Normal saline and water restriction 3) Continue supportive measures Supervisory-Addendum Brief Verification & Attestation Participated in pt care: history, MDM, physical Personally performed: exam, history, MDM, supervision of care Care discussed with: Medical Student Procedures: n/a Verification and Attestation of Medical Student E/M Service A medical student performed and documented this service. I then reviewed and verified all information documented by the medical student and made modifications to such information, when appropriate. I personally performed a physical exam, medical decision making and then discussed any differences between the notes and made revisions as necessary to create one note. Rosa Edwards , 10/13/22 , 19:15 GILDA SANDY Oct 13, 2022 15:16 ROSA EDWARDS DO Oct 13, 2022 19:11
[2022-10-13] MEDS ORDERED: BISACODYL 10 MG SUPP (DULCOLAX) PR PRN (16:45)
[2022-10-13] MEDS ORDERED: LACTULOSE SYRUP 10GM/15ML (ENULOSE) 30ML UDC PO PRN (16:45)
[2022-10-13] MEDS ORDERED: polyethylene glycoL POWDER 17 GM (MIRALAX) PACK PO PRN (16:45)
[2022-10-13] MEDS ORDERED: MILK OF MAGNESIA 400 MG/5 ML 30 ML UDC PO PRN (16:45)
[2022-10-13] MEDS ORDERED: diphenhydrAMINE 25 MG TAB (BENADRYL) PO PRN (16:45)
[2022-10-13] MEDS ORDERED: VANCOMYCIN INJECTION 0.1 MG in NS (IVPB) 250 ML IV SCH (16:45)
[2022-10-13] MEDS ORDERED: ONDANSETRON 4 MG (ZOFRAN) ORAL DISSOLVE TAB PO PRN (16:45)
[2022-10-13] MEDS ORDERED: diphenhydrAMINE 50 MG/ML INJ (BENADRYL) IVP PRN (16:45)
[2022-10-13] MEDS ORDERED: ANTACID SUSP 30 ML UDC (MYLANTA) PO PRN (16:45)
[2022-10-13] MEDS ORDERED: ONDANSETRON 4 MG/2 ML (SDV) Z0FRAN IV PRN (16:45)
[2022-10-13] MEDS ORDERED: CALCIUM CARBONATE 500 MG (TUMS) TAB.CHEW PO PRN (16:45)
[2022-10-13] MEDS ORDERED: ACETAMINOPHEN 325 MG TABLET PO PRN (16:45)
[2022-10-13 16:54] VITALS: BP 197/97
[2022-10-13] MEDS ORDERED: RT-ALBUTEROL/IPRATROPIUM 3 ML (DUONEB) VIAL INH PRN (17:00)
[2022-10-13 17:03] VITALS: BP 163/86
[2022-10-13] MEDS: NS IV 1000 ML 1,000 ML IV SCH (17:24)
[2022-10-13] MEDS: PIPERACILLIN SODIUM/TAZOBACTAM 4.5 GM in NS (IVPB) 100 ML IV SCH (17:27)
[2022-10-13] MEDS: ENOXAPARIN 40 MG/0.4 ML (LOVENOX) SYR SC SCH (17:27)
[2022-10-13] MEDS ORDERED: inSUlin ASPART (NovoLOG) 1 UNIT/0.01 ML (CHARGE PER UNIT) SC NR (18:00)
[2022-10-13 19:20] VITALS: BP 159/91
[2022-10-13] MEDS: SENNOSIDES 8.6 MG (SENOKOT) TAB PO SCH (20:31)
[2022-10-13] MEDS: MELATONIN 3 MG TABLET PO PRN (20:31)
[2022-10-13] MEDS: DOCUSATE SODIUM 100 MG (COLACE) CAP PO SCH (20:31)
[2022-10-13] MEDS: MICONAZOLE 2% POWDER (DESENEX AF) 90 GM TOP SCH (20:32)
[2022-10-13] MEDS: inSUlin ASPART (NovoLOG) 1 UNIT/0.01 ML (CHARGE PER UNIT) SC SCH (20:32)
[2022-10-13] MEDS: RT-ALBUTEROL/IPRATROPIUM 3 ML (DUONEB) VIAL INH SCH (20:59)
[2022-10-13 23:11] VITALS: BP 173/88
[2022-10-14] MEDS: HYDROmorphone 2 MG/ML VIAL (DILAUDID) IV PRN (00:57)
[2022-10-14] MEDS: VANCOMYCIN 1250 MG/NS 250 ML IVPB IV SCH ×4 (02:38→13:48)
[2022-10-14 03:31] VITALS: BP 158/73
[2022-10-14] MEDS: PIPERACILLIN SODIUM/TAZOBACTAM 4.5 GM in NS (IVPB) 100 ML IV SCH ×3 (04:34→18:05)
[2022-10-14] MEDS: ENOXAPARIN 40 MG/0.4 ML (LOVENOX) SYR SC SCH ×2 (04:37→16:16)
[2022-10-14] MEDS: inSUlin ASPART (NovoLOG) 1 UNIT/0.01 ML (CHARGE PER UNIT) SC SCH ×7 (05:44→20:54)
[2022-10-14 06:02] LABS: BASOPHILS # (AUTO) 0.1 10^3/uL (0.0-0.1); BASOPHILS % (AUTO) 1 % (0-10); EOSINOPHILS # (AUTO) 0.3 10^3/uL (0.0-0.3); EOSINOPHILS % (AUTO) 3 % (0-10); HEMATOCRIT 40 % (35-52); HEMOGLOBIN 13.4 g/dL (11.5-16.0); LYMPHOCYTES # (AUTO) 1.9 10^3/uL (1.0-4.0); LYMPHOCYTES % (AUTO) 20 % (12-44); MEAN CORPUSCULAR HEMOGLOBIN 29 pg (25-34); MEAN CORPUSCULAR HGB CONC 34 g/dL (32-36); MEAN CORPUSCULAR VOLUME 85 fL (80-99); MEAN PLATELET VOLUME 8.9 fL (9.0-12.2); MONOCYTES # (AUTO) 0.7 10^3/uL (0.0-1.0); MONOCYTES % (AUTO) 7 % (0-12); NEUTROPHILS % (AUTO) 70 % (42-75); PLATELET COUNT 256 10^3/uL (130-400)
[2022-10-14 06:19] LABS: ALBUMIN 3.2 GM/DL (3.2-4.5)
[2022-10-14 06:20] LABS: POTASSIUM 4.4 MMOL/L (3.6-5.0)
[2022-10-14 06:21] LABS: CALCIUM 9.2 MG/DL (8.5-10.1)
[2022-10-14 06:22] LABS: TOTAL PROTEIN 6.3 GM/DL (6.4-8.2)
[2022-10-14 06:24] LABS: BILIRUBIN,TOTAL 0.5 MG/DL (0.1-1.0)
[2022-10-14 06:26] LABS: CREATININE SERUM 0.84 MG/DL (0.60-1.30)
--- NOTE | 2022-10-14 07:50 | History & Physical-Hospitalist ---
History of Present Illness HPI/Chief Complaint Chief complaint: Right leg cellulitis failed p.o. antibiotics HPI: This is a 67-year-old female who has diabetes who presents to the ER with right leg pain and redness. Apparently she suffered about a wound on her right foot. Was placed on antibiotics but it worsened so she was admitted. General surgery will continue to follow. No incision and drainage required. IV antibiotics maintained. Home meds will be restarted. Source: patient, old records Exam Limitations: no limitations Date Seen 10/14/22 Time Seen by a Provider: 10:30 Attending Physician Zeenat Hubbard MD PCP Admitting Physician: Bebe Shah DO Attending Physician: Bebe Shah DO Referring Physician Date of Admission Oct 13, 2022 at 16:42 Home Medications & Allergies Home Medications Reviewed patient Home Medication Reconciliation performed by pharmacy medication reconciliations electroencephalograph technician and/or nursing. Patients Allergies have been reviewed. Allergies Allergies Coded Allergies exenatide (Unverified Allergy, Unknown, 03/24/22) methylphenidate (Unverified Allergy, Unknown, 03/24/22) morphine (Verified Adverse Reaction, Mild, NAUSEA, 05/19/16) sulfamethoxazole (Unverified Adverse Reaction, Unknown, 10/13/22) HALLUCINATIONS trimethoprim (Unverified Adverse Reaction, Unknown, 10/13/22) HALLUCINATIONS Past Vbyijcn-Yzetfh-Haxwsf Hx Patient Social History Marrital Status: single Employed/Student: retired Tobacco Use?: No Smoking Status: Former Smoker Substance use?: No Alcohol Use?: No Immunizations Up To Date Date of Influenza Vaccine: Jul 31, 2021 First/Initial COVID19 Vaccinat: 2020 Second COVID19 Vaccination Dae: 2020 Tetanus Booster (TDap): Unknown Hepatitis A: No Hepatitis B: No PED Vaccines UTD: No Date of Pneumonia Vaccine: Jul 31, 2019 Seasonal Allergies Seasonal Allergies: Yes Current Status Advance Directives: No Communicates: Verbally Primary Language: Chinese Preferred Spoken Language: Chinese Is interpretation needed?: No Past Medical History Surgeries: Abdominal, Section, Hysterectomy, Orthopedic COPD Currently Using CPAP: No Currently Using BIPAP: No Hypertension Neuropathy 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, 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 Sexually Transmitted Disease: No HIV/AIDS: No Gastroesophageal Reflux, Hiatal Hernia Arthritis Diabetes, Insulin dep Cataract Loss of Vision: Bilateral Hearing Impairment: Hard of Hearing Melanoma Anxiety, Depression Psoriasis Blood Disorders: No Adverse Reaction/Blood Tranf: No IDDM HTN COPD Tobacco USE Arthritis GERD Dementia Psoriasis Anxiety Depression Alcohol Abuse Medical Noncompliance F[place] Falls Family Medical History AIDS Alcoholism Arthritis Asthma Cataracts Coronary thrombosis Diabetes mellitus Drug abuse Glaucoma Psychosocial problem Respiratory disorder No Family History of: Woodlake's disease Alzheimer's disease Aphasia Cancer of mouth Cardiovascular disease Colon cancer Completed stroke Congenital disease Congenital heart disease Cystic fibrosis Deafness or hearing loss Dementia Dysphasia Fibrocystic disease of breast Gastroenteritis Headache disorder Hypercholesterolemia Hypertension Infertility Kidney disease Myocardial infarction Neoplasm Not obtainable due to adoption Osteoporosis Parkinson's disease Prostate cancer Seizure disorder Severe allergy Thyroid disease Tuberculosis Visual disorder Cancer (grandfather - colon), Diabetes (mother), Hypertension (mother and father) Review of Systems Constitutional: see HPI, dizziness, fever, malaise, weakness EENTM: no symptoms reported Respiratory: no symptoms reported Cardiovascular: no symptoms reported Gastrointestinal: no symptoms reported Genitourinary: no symptoms reported Musculoskeletal: back pain Skin: see HPI Psychiatric/Neurological: Anxiety, Depressed All Other Systems Reviewed Negative Unless Noted: Yes Physical Exam Physical Exam Vital Signs Vital Signs - First Documented 10/13/22 10/13/22 10/13/22 08:44 16:35 16:54 Temp 36.5 Pulse 74 Resp 16 B/P (MAP) 149/61 (90) Pulse Ox 99 O2 Delivery Room Air O2 Flow Rate 2.00 FiO2 28 Capillary Refill : Less Than 3 Seconds Height, Weight, BMI Height: 5'65.00" Weight: 252lbs. 14.0oz. [id number]; 46.70 BMI Method:Stated General Appearance: No Apparent Distress, Chronically ill, Obese Eyes: Right Eye Normal Inspection, Right Eye PERRL HEENT: PERRL/EOMI, Normal ENT Inspection, Pharynx Normal, Moist Mucous Membranes Neck: Full Range of Motion, Normal Inspection, Non Tender Respiratory: Chest Non Tender, Lungs Clear, Normal Breath Sounds, No Accessory Muscle Use, No Respiratory Distress Cardiovascular: Regular Rate, Rhythm, No Edema, No Gallop, No JVD, No Murmur, Normal Peripheral Pulses Gastrointestinal: Normal Bowel Sounds, No Organomegaly, No Pulsatile Mass, Non Tender, Soft Back: Normal Inspection, No CVA Tenderness, No Vertebral Tenderness Extremity: Normal Capillary Refill, Normal Inspection, Normal Range of Motion, Non Tender, No Calf Tenderness, No Pedal Edema Neurologic/Psychiatric: Alert, Oriented x3, No Motor/Sensory Deficits, Normal Mood/Affect Skin: Normal Color, Warm/Dry, Rash (Right leg with redness and tenderness to palpation from foot to mid tibia severe in nature with increased heat) Lymphatic: No Adenopathy Results Results/Procedures Labs Laboratory Tests 10/13/22 09:50 10/14/22 05:38 Patient resulted labs reviewed. Assessment/Plan Admission Diagnosis Assessment: Right leg cellulitis failed oral antibiotics Diabetes Hypertension Hyperlipidemia Anxiety Depression GERD Severe neuropathy Plan: IV antibiotics General surgery consult Lovenox Pain control Admission Status: Inpatient Order (span 2 midnights) Reason for Inpatient Admission: Severe cellulitis failed p.o. antibiotics as an outpatient Diagnosis/Problems Diagnosis/Problems (1) Cellulitis of right lower extremity Status: Acute Clinical Quality Measures DVT/VTE Risk/Contraindication: Contraindications-Mechi: Other *list below* Other: leg cellulitis BEBE SHAH DO Oct 14, 2022 07:50
--- NOTE | 2022-10-14 08:11 | Progress Note - Surgery ---
SUKUMAR PEREYRA 10/14/22 0811: Subjective Date Seen by a Provider: Oct 14, 2022 Time Seen by a Provider: 06:57 Subjective/Events-last exam Pt is resting in bed, seems anxious about condition stating numerous times that she thinks she has sepsis. Pt states that she is feeling a little better today but rates her pain an 8/10 at rest. Pt states that she has not been ambulating except to the bedside commode due to the pain. Pt continues to void without issue and has been tolerating diet well. Pt states that she is nauseous this morning but does ask for her breakfast numerous times. Pt's doppler yesterday of RLE was negative and CXR from yesterday showed no abnormalities. Pt denies vomiting, worsening SOB, CP, abd pain, diarrhea, cough, or chills. Review of Systems General: No Chills, No Night Sweats HEENT: No Head Aches, No Eye Pain Pulmonary: No Dyspnea, No Cough Cardiovascular: No: Chest Pain, Lt Headedness Gastrointestinal: Nausea; No: Vomiting, Abdominal Pain Genitourinary: No Dysuria, No Hematuria Musculoskeletal: leg pain (right cellulitis, below knee to foot), foot pain (R cellulitis); No: neck pain Neurological: No: Weakness, Numbness Objective Exam Vital Signs Date Time Temp Pulse Resp B/P (MAP) Pulse Ox O2 Delivery O2 Flow Rate FiO2 10/14/22 03:31 36.0 76 18 158/73 (101) 92 Room Air 10/13/22 23:11 37.1 88 20 173/88 (116) 92 Room Air 10/13/22 21:46 Room Air 10/13/22 20:59 93 Room Air 10/13/22 19:20 36.6 80 20 159/91 (113) 91 Room Air 10/13/22 18:02 Room Air 10/13/22 17:03 36.6 69 18 163/86 (111) 97 Room Air 10/13/22 16:54 36.5 80 99 28 10/13/22 16:35 36.5 80 16 197/97 99 Nasal Cannula 2.00 10/13/22 08:44 36.5 74 16 149/61 (90) 99 Room Air I & O 10/14/22 07:00 Intake Total 2920 ml Output Total 1400 ml Balance 1520 ml Capillary Refill : Less Than 3 Seconds General Appearance: Anxious, Obese HEENT: PERRL/EOMI Respiratory: No Accessory Muscle Use, No Respiratory Distress, Wheezing (Left and R bases) Cardiovascular: Regular Rate, Rhythm, No Murmur Peripheral Pulses: 2+ Dorsalis Pedis (R), 2+ Left Dors-Pedis (L) Gastrointestinal: non tender, soft Extremity: No Calf Tenderness; Pedal Edema (R dorsum of foot extending to just below the knee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: Alert, Oriented x3 Skin: Warm/Dry, Rash (R LE cellulitis, still erythematous and swollen from just below the knee to the dorsum of foot. Weeping wound present on anterior lateral aspect of R LE), Other (venous stasis dermatitis B/L LE) Results Lab Laboratory Tests 10/13/22 09:50: White Blood Count 10.5, Red Blood Count 5.14H, Hemoglobin 14.6, Hematocrit 43, Mean Corpuscular Volume 84, Mean Corpuscular Hemoglobin 28, Mean Corpuscular Hemoglobin Concent 34, Red Cell Distribution Width 13.9, Platelet Count 247, Mean Platelet Volume 8.9L, Immature Granulocyte % (Auto) 1, Neutrophils (%) (Auto) 81H, Lymphocytes (%) (Auto) 11L, Monocytes (%) (Auto) 4, Eosinophils (%) (Auto) 3, Basophils (%) (Auto) 1, Neutrophils # (Auto) 8.5H, Lymphocytes # (Auto) 1.1, Monocytes # (Auto) 0.4, Eosinophils # (Auto) 0.3, Basophils # (Auto) 0.1, Immature Granulocyte # (Auto) 0.1, D-Dimer 0.75H, Sodium Level 125*L, Potassium Level 4.8, Chloride Level 89L, Carbon Dioxide Level 24, Anion Gap 11, Blood Urea Nitrogen 22H, Creatinine 1.12, Estimat Glomerular Filtration Rate 53, BUN/Creatinine Ratio 20, Glucose Level 328H, Calcium Level 9.5, C-Reactive Protein High Sensitivity 15.16H, B-Type Natriuretic Peptide 37.0 10/13/22 12:12: Glucometer 273H 10/14/22 05:08: Glucometer 207H 10/14/22 05:38: White Blood Count 10.0, Red Blood Count 4.69, Hemoglobin 13.4, Hematocrit 40, Mean Corpuscular Volume 85, Mean Corpuscular Hemoglobin 29, Mean Corpuscular Hemoglobin Concent 34, Red Cell Distribution Width 13.8, Platelet Count 256, Mean Platelet Volume 8.9L, Immature Granulocyte % (Auto) 1, Neutrophils (%) (Auto) 70, Lymphocytes (%) (Auto) 20, Monocytes (%) (Auto) 7, Eosinophils (%) (Auto) 3, Basophils (%) (Auto) 1, Neutrophils # (Auto) 7.0, Lymphocytes # (Auto) 1.9, Monocytes # (Auto) 0.7, Eosinophils # (Auto) 0.3, Basophils # (Auto) 0.1, Immature Granulocyte # (Auto) 0.1, Sodium Level 132L, Potassium Level 4.4, Chloride Level 95L, Carbon Dioxide Level 27, Anion Gap 10, Blood Urea Nitrogen 14, Creatinine 0.84, Estimat Glomerular Filtration Rate 75, BUN/Creatinine Ratio 17, Glucose Level 220H, Calcium Level 9.2, Corrected Calcium 9.8, Total Bilirubin 0.5, Aspartate Amino Transf (AST/SGOT) 13, Alanine Aminotransferase (ALT/SGPT) 12, Alkaline Phosphatase 115, Total Protein 6.3L, Albumin 3.2 Assessment/Plan Assessment/Plan Assessment/Plan Assessment: 1) Cellulitis of Right Lower Extremity with Bilateral venous stasis 2) h/o COPD 3.) Hypertensive Pt's pain seems much improved today. Pt was concerned about having sepsis. Reassured her and showed her labs from today. Pt is afebrile and her WBC has decreased from yesterday, not concerned about sepsis at this time. There is a new small weeping wound present on the anterior lateral aspect of RLE, will continue to monitor. Does not seem to have an abscess at this time, but will continue to monitor. Would continue IV abx and pain medication prn. Pt c/o the zofran making her itching and stated that she normally uses phenergan at home, would consider switching to pheneragan prn if nausea persists. Pt is hypertensive in room but is most likely secondary to anxiety and pain. Will continue to monitor. Clinical Quality Measures DVT/VTE Risk/Contraindication: Contraindications-Mechi: Other *list below* Other: leg cellulitis BOOGIE VILLAFUERTE DO 10/14/22 0921: Subjective Time Seen by a Provider: 09:09 Subjective/Events-last exam Pt seen and examined, states she thinks she is doing better. She is planning to take a shower. Review of Systems General: No Chills, No Night Sweats Pulmonary: No Dyspnea, No Cough Cardiovascular: No: Chest Pain Gastrointestinal: Nausea; No: Vomiting, Abdominal Pain Musculoskeletal: leg pain (right cellulitis, below knee to foot), foot pain (R cellulitis) Objective Exam General Appearance: No Apparent Distress, Anxious, Obese HEENT: PERRL/EOMI Respiratory: No Accessory Muscle Use, No Respiratory Distress, Wheezing (Left and R bases) Cardiovascular: Regular Rate, Rhythm, No Murmur Gastrointestinal: non tender, soft Extremity: No Calf Tenderness; Pedal Edema (R dorsum of foot extending to just below the knee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: Alert, Oriented x3 Skin: Rash (R LE cellulitis, still erythematous and swollen from just below the knee to the dorsum of foot. Weeping wound present on anterior lateral aspect of R LE. areas of possible fluctuance just below knee and on top of foot), Other (venous stasis dermatitis B/L LE) Assessment/Plan Assessment/Plan Assessment/Plan Assessment: 1) Cellulitis of Right Lower Extremity with Bilateral venous stasis 2) h/o COPD 3.) Hypertensive Pt's pain seems much improved today. There is a new small weeping wound present on the anterior lateral aspect of RLE, will continue to monitor. ??fluctuance but I believe it is probably just edema and do not want to do an I&D at this time, not sure it would help her. Would continue IV abx and pain medication prn. Pt complains of nausea, but then asks for breakfast. States she normally uses phenergan at home, would consider switching to pheneragan prn if nausea p ersists. Pt is hypertensive in room but is most likely secondary to anxiety and pain. Will continue to monitor. Supervisory-Addendum Brief Verification & Attestation Participated in pt care: history, MDM, physical Personally performed: exam, history, MDM, supervision of care Care discussed with: Medical Student Procedures: n/a Verification and Attestation of Medical Student E/M Service A medical student performed and documented this service. I then reviewed and verified all information documented by the medical student and made modifications to such information, when appropriate. I personally performed a physical exam, medical decision making and then discussed any differences between the notes and made revisions as necessary to create one note. Boogie Villafuerte , 10/14/22 , 09:21 SUKUMAR PEREYRA Oct 14, 2022 08:11 BOOGIE VILLAFUERTE DO Oct 14, 2022 09:21
[2022-10-14 08:34] VITALS: BP 164/78
[2022-10-14] MEDS: RT-ALBUTEROL/IPRATROPIUM 3 ML (DUONEB) VIAL INH SCH ×2 (08:56→21:08)
[2022-10-14] MEDS: MICONAZOLE 2% POWDER (DESENEX AF) 90 GM TOP SCH ×2 (08:59→21:04)
[2022-10-14] MEDS: SENNOSIDES 8.6 MG (SENOKOT) TAB PO SCH ×2 (08:59→20:52)
[2022-10-14] MEDS: DOCUSATE SODIUM 100 MG (COLACE) CAP PO SCH ×2 (08:59→20:52)
[2022-10-14] MEDS ORDERED: DULA3PEN SQ ×2 (09:50→13:21)
[2022-10-14] MEDS ORDERED: SUVO20TA2 PO (09:50)
[2022-10-14] MEDS ORDERED: CLON0.5T4 PO (09:51)
[2022-10-14] MEDS ORDERED: RAME8TAB24 PO (10:10)
[2022-10-14] MEDS ORDERED: BUPR-104 PO ×2 (10:10→13:21)
[2022-10-14] MEDS: NS IV 1000 ML 1,000 ML IV SCH (10:39)
[2022-10-14] MEDS ORDERED: ONDANSETRON 4 MG (ZOFRAN) ORAL DISSOLVE TAB SL PRN (11:30)
[2022-10-14 11:50] VITALS: BP 177/80
[2022-10-14] MEDS ORDERED: LOSARTAN 100 MG (COZAAR) TABLET PO NR (12:00)
[2022-10-14] MEDS: GABAPENTIN 400 MG (NEURONTIN) CAP PO SCH ×2 (12:03→20:52)
[2022-10-14] MEDS ORDERED: GABA800T10 PO (13:21)
[2022-10-14] MEDS ORDERED: FLUT9.9S NS (13:21)
[2022-10-14] MEDS ORDERED: HYDR50TA76 PO (13:21)
[2022-10-14] MEDS ORDERED: FLUC150T41 PO (13:21)
[2022-10-14] MEDS ORDERED: TR1O15 TP (13:21)
[2022-10-14] MEDS ORDERED: AMOX875T2 PO (13:21)
[2022-10-14] MEDS ORDERED: TRAM50TA3 PO (13:21)
[2022-10-14] MEDS ORDERED: DOXY100T2 PO (13:21)
--- NOTE | 2022-10-14 14:37 | Physical Therapy Evaluation ---
PT Evaluation-General Medical Diagnosis Admission Date Oct 13, 2022 at 16:42 Medical Diagnosis: cellulitis right LE/hyponatremia Onset Date: Oct 13, 2022 Therapy Diagnosis Therapy Diagnosis: debility/weakness Height/Weight Height (Feet): 5 Height (Inches): 65.00 Weight (Pounds): 252 Weight (Ounces): 14.0 Precautions Precautions/Isolations: Fall Prevention, Standard Precautions Referral Physician: Pablo Reason for Referral: Evaluation/Treatment Medical History Pertinent Medical History: Alcoholism, Arthritis, COPD, DM, GERD, HTN, Smoking Current History EMS secondary to right LE cellulitis Reviewed History: Yes Social History Home: Single Level Current Living Status: Alone Entry Into Home: Ramp Prior Prior Level of Function SCALE: Activities may be completed with or without assistive devices. 4-Epoomodzyx-arkjjnl completes the activity by him/herself with no assistance from a helper. 5-Set-up or Clean-up Assistance-helper sets up or cleans up; patient completes activity. Celestine assists only prior to or following the activity. 4-Supervision or Touching Assistance-helper provides verbal cues and/or touching/steadying and/or contact guard assistance as patient completes activity. Assistance may be provided throughout the activity or intermittently. 3-Partial/Moderate Assistance-helper does LESS THAN HALF the effort. Celestine lifts, holds or supports trunk or limbs, but provides less than half the effort. 2-Substantial/Maximal Assistance-helper does MORE THAN HALF the effort. Celestine lifts or holds trunk or limbs and provides more than half the effort. 1-Vucvfomsi-mauzig does ALL the effort. Patient does none of the effort to com plete the activity. Or, the assistance of 2 or more helpers is required for the patient to complete the activity. If activity was not attempted, code reason: 7-Patient Refused. 9-Not Applicable-not attempted and the patient did not perform the activity before the current illness, exacerbation or injury. 10-Not Attempted due to Environmental Limitations-(lack of equipment, weather restraints, etc.). 88-Not Attempted due to Medical Conditions or Safety Concerns. Bed Mobility: 6 Transfers (B,C,W/C): 6 Gait: 6 Indoor Mobility (Ambulation): Independent Prior Devices Use: Walker PT Evaluation-Current Subjective Patient agrees to PT. Very well known by this PT. Objective Patient Orientation: Normal For Age Attachments: IV ROM/Strength ROM Lower Extremities bilateral LE WFL Strength Lower Extremities 4-/5 grossly bilateral LE all planes Integumentary/Posture Integumentary refer to nursing notes Bowel Incontinence: No Bladder Incontinence: No Posture WFL Neuromuscular (Tone, Coordination, Reflexes) grossly intact Sensory Vision: Wears Glasses Hearing: Functional Transfers Sit to Lying (QC): 6 Lying to Sitting/Side of Bed(Q: 4 Sit to Stand (QC): 4 Gait Mode of Locomotion: Walk Anticipated Mode of Locomotion: Walk Walk 10 feet (QC): 4 Walk 50 ft with 2 Turns(QC): 4 Walk 150 ft (QC): 4 Distance: 250' Gait Assistive Device: FWW Comments/Gait Description slow, steady, functional gait sequence Balance Sitting Static: Normal Sitting Dynamic: Normal Standing Static: Normal Standing Dynamic: Normal Assessment/Needs Patient will be seen short term by skilled PT to address functional strength and mobility to improve current LOF to safely return to home at maximum LOF. Rehab Potential: Fair PT Car Wash Manager Goals Shelter Goals PT Shelter Goals Time Frame: Oct 23, 2022 Roll Left & Right (QC): 6 Sit to Lying (QC): 6 Lying-Sitting on Side/Bed(QC): 6 Sit to Stand (QC): 6 Chair/Ecu-dl-Wlyhe Xfer(QC): 6 Toilet Transfer (QC): 6 Walk 10 feet (QC): 6 Walk 50ft with 2 Turns (QC): 6 Walk 150 ft (QC): 6 PT Plan Problem List Problem List: Activity Tolerance, Balance, Gait, Transfer, Bed Mobility Treatment/Plan Treatment Plan: Continue Plan of Care Treatment Plan: Bed Mobility, Education, Functional Activity Garrick, Functional Strength, Gait, Safety, Therapeutic Exercise, Transfers Treatment Duration: Oct 23, 2022 Frequency: 6 times per week Estimated Hrs Per Day: .25 hour per day Patient and/or Family Agrees t: Yes Time Time In: 1351 Time Out: 1403 DATE: Oct 14, 2022 Total Billed Treatment Time: 12 Total Billed Treatment 1 visit EVMod 12 min CAILIN COLEY PT Oct 14, 2022 14:37
--- NOTE | 2022-10-14 14:42 | Occupational Therapy Eval ---
OT Evaluation-General/PLF Medical Diagnosis Admission Date Oct 13, 2022 at 16:42 Medical Diagnosis: RLE cellulitis Onset Date: Oct 13, 2022 Therapy Diagnosis Therapy Diagnosis: decreased ADL status Height/Weight Height (Feet): 5 Height (Inches): 65.00 Weight (Pounds): 252 Weight (Ounces): 14.0 Precautions Precautions/Isolations: Fall Prevention, Standard Precautions Referral Physician: Pablo Referral Reason: Evaluation/Treatment Medical History Pertinent Medical History: Alcoholism, Arthritis, COPD, DM, GERD, HTN, Smoking Additional Medical History COPD, HTN, neuropathy, GERD, arthritis, DM, melanoma, anxiety/depression, psoriasis, dementia, medical noncompliance Current History ED via EMS c/o RLE cellulitis Social History Home: Single Level Current Living Status: Alone Entry Into Home: Ramp ADL-Prior Level of Function SCALE: Activities may be completed with or without assistive devices. 9-Jowvpjhdda-ixcxzqg completes the activity by him/herself with no assistance from a helper. 5-Set-up or Clean-up Assistance-helper sets up or cleans up; patient completes activity. [place] assists only prior to or following the activity. 4-Supervision or Touching Assistance-helper provides verbal cues and/or touching/steadying and/or contact guard assistance as patient completes ac tivity. Assistance may be provided throughout the activity or intermittently. 3-Partial/Moderate Assistance-helper does LESS THAN HALF the effort. [place] lifts, holds or supports trunk or limbs, but provides less than half the effort. 2-Substantial/Maximal Assistance-helper does MORE THAN HALF the effort. [place] lifts or holds trunk or limbs and provides more than half the effort. 2-Ijvbxzwks-wfgydh does ALL the effort. Patient does none of the effort to complete the activity. Or, the assistance of 2 or more helpers is required for the patient to complete the activity. If activity was not attempted, code reason: 7-Patient Refused. 9-Not Applicable-not attempted and the patient did not perform the activity before the current illness, exacerbation or injury. 10-Not Attempted due to Environmental Limitations-(lack of equipment, weather restraints, etc.). 88-Not Attempted due to Medical Conditions or Safety Concerns. ADL PLOF Comments Pt reports living alone, but has difficulty completing ADLS and self care tasks, she uses a walker for functional mobility but feels as though she may need a w/c. She has family or friends assist with showering and household tasks, but she feels like their help isn't reliable. She has a tub/shower no shower chair. Pt feels as though she needs hired assistance in her house. Pt has difficulty with posterior hygiene after BM, she doesn't have a good system of cleaning herself. She sometimes gets into the bed and then washes the sheets after. Self Care: Needed Some Help Functional Cognition: Independent OT Current Status Subjective Pt in bed, agreeable to OT evaluation. Pt reports difficulty with self care tasks at home and feels like she will require hired assistance at home. Mental Status/Objective Patient Orientation: Person, Place, Time, Situation Current Upper Extremity ROM WFL, BUE shoulder flexion to approx 150 degrees Upper Extremity Coordination WFL ADL-Treatment Eating (QC): 6 Oral Hygiene (QC): 5 Shower/Bathe Self (QC): 3 (Pt reports assistance with periarea and buttocks.) Toileting Hygiene (QC): 3 (Pt reports assistance with posterior hygiene.) Other Treatments Pt in bed, agreeable to OT Tx. Pt provided information about PLOF and home set up and participated in UE screen. Pt declined OOB activities, as she has already been up in the chair earlier today and showered with nursing staff. Pt declined ADLs at this time as well. OT educated pt on purpose/benefit of UE exercises to increase BUE strength and activity tolerance, she verbalized understanding of exercises. OT educated pt on OT POC with focus on increasing pt's independence with self care tasks, she verbalized understanding and agreement. Pt would benefit from AE for toileting due to difficulty reaching behind her for hygiene. Post tx, pt in bed, call light in reach and all needs met. Education OT Patient Education: Correct positioning, Energy conservation, Modified ADL techniques, Progress toward Goal/Update tx plan, Purpose of tx/functional activities, Rehab process Teaching Recipient: Patient Teaching Methods: Discussion Response to Teaching: Verbalize Understanding OT High Speed Operator Goals High Speed Operator Goals Time Frame: Oct 22, 2022 Eating (QC): 6 Oral Hygiene (QC): 6 Toileting Hygiene (QC): 4 Shower/Bathe Self (QC): 3 Upper Body Dressing (QC): 5 Lower Body Dressing (QC): 4 On/Off Footwear (QC): 4 Additional Goals: 1-Demonstrate ADL Tasks, 2-Verbalize Understanding, 3- ImproveStrength/Garrick 1=Demonstrate adherence to instructed precautions during ADL tasks. 2=Patient will verbalize/demonstrate understanding of assistive devices/mod ifications for ADL. 3=Patient will improve strength/tolerance for activity to enable patient to perform ADL's. OT Education/Plan Problem List/Assessment Assessment: Decreased Activ Tolerance, Decreased UE Strength, Impaired Funct Balance, Impaired I ADL's, Impaired Self-Care Skills Discharge Recommendations Plan/Recommendations: Continue POC Treatment Plan/Plan of Care Patient would benefit from OT for education, treatment and training to promote independence in ADL's, mobility, safety and/or upper extremity function for ADL's. Plan of Care: ADL Retraining, Functional Mobility, UE Funct Exercise/Act Treatment Duration: Oct 22, 2022 Frequency: 3 times per week (3-5 times per week) Estimated Hrs Per Day: .25 hour per day Agreement: Yes Rehab Potential: Guarded Time Start Time: 13:36 Stop Time: 13:49 DATE: Oct 14, 2022 Total Time Billed (hr/min): 13 Billed Treatment Time 1, COLEEN MOCK OT Oct 14, 2022 14:42
[2022-10-14 16:00] VITALS: BP 151/65
[2022-10-14 20:00] VITALS: BP 136/71
[2022-10-14] MEDS ORDERED: TRIAMCINOLONE 0.1% OINT (KENALOG) 15 GM TUBE TP PRN (20:30)
[2022-10-14] MEDS: MELATONIN 3 MG TABLET PO PRN (20:53)
[2022-10-14] MEDS: busPIRone 15 MG (BUSPAR) TABLET PO SCH (20:53)
[2022-10-14] MEDS ORDERED: INSULIN DEGLUDEC 60 UNIT SC SCH (21:00)
[2022-10-14] MEDS ORDERED: hydrOXYzine (VISTARIL/ATARAX) 25 MG capsule/tablet ONE (21:02)
[2022-10-14] MEDS ORDERED: FLUTICASONE NASAL SPRAY (FLONASE) 16 GM BTL NS PRN (21:45)
[2022-10-15 00:18] VITALS: BP 170/76
[2022-10-15] MEDS: VANCOMYCIN 1250 MG/NS 250 ML IVPB IV SCH ×4 (01:46→14:56)
[2022-10-15] MEDS: PIPERACILLIN SODIUM/TAZOBACTAM 4.5 GM in NS (IVPB) 100 ML IV SCH ×3 (03:12→18:44)
[2022-10-15] MEDS: ENOXAPARIN 40 MG/0.4 ML (LOVENOX) SYR SC SCH ×2 (04:47→16:24)
[2022-10-15 04:50] VITALS: BP 172/78
[2022-10-15] MEDS: inSUlin ASPART (NovoLOG) 1 UNIT/0.01 ML (CHARGE PER UNIT) SC SCH ×7 (05:25→20:51)
--- NOTE | 2022-10-15 05:54 | Progress Note - Hospitalist ---
Subjective HPI/CC On Admission Date Seen by Provider: Oct 15, 2022 Time Seen by Provider: 11:00 Chief complaint: Right leg cellulitis failed p.o. antibiotics HPI: This is a 67-year-old female who has diabetes who presents to the ER with right leg pain and redness. Apparently she suffered about a wound on her right foot. Was placed on antibiotics but it worsened so she was admitted. General surgery will continue to follow. No incision and drainage required. IV antibiotics maintained. Home meds will be restarted. Objective Exam Vital Signs Vital Signs Date Time Temp Pulse Resp B/P (MAP) Pulse Ox O2 Delivery O2 Flow Rate FiO2 10/16/22 04:00 36.6 68 16 183/78 (113) 95 Room Air 10/13/22 16:54 28 10/13/22 16:35 2.00 Capillary Refill : Less Than 3 Seconds Results/Procedures Lab Laboratory Tests 10/16/22 04:00 Patient resulted labs reviewed. Diagnosis/Problems Diagnosis/Problems (1) Cellulitis of right lower extremity Status: Acute Clinical Quality Measures DVT/VTE Risk/Contraindication: Contraindications-Mechi: Other *list below* Other: leg cellulitis HERMILA SWAIN DO Oct 15, 2022 05:54
[2022-10-15 05:56] LABS: BASOPHILS # (AUTO) 0.1 10^3/uL (0.0-0.1); BASOPHILS % (AUTO) 1 % (0-10); EOSINOPHILS # (AUTO) 0.4 10^3/uL (0.0-0.3); EOSINOPHILS % (AUTO) 4 % (0-10); HEMATOCRIT 40 % (35-52); LYMPHOCYTES # (AUTO) 1.9 10^3/uL (1.0-4.0); LYMPHOCYTES % (AUTO) 21 % (12-44); MEAN CORPUSCULAR HEMOGLOBIN 28 pg (25-34); MEAN CORPUSCULAR HGB CONC 33 g/dL (32-36); MEAN CORPUSCULAR VOLUME 86 fL (80-99); MEAN PLATELET VOLUME 8.9 fL (9.0-12.2); MONOCYTES # (AUTO) 0.7 10^3/uL (0.0-1.0); MONOCYTES % (AUTO) 8 % (0-12); NEUTROPHILS # (AUTO) 6.2 10^3/uL (1.8-7.8); NEUTROPHILS % (AUTO) 67 % (42-75); PLATELET COUNT 261 10^3/uL (130-400); WHITE BLOOD COUNT 9.3 10^3/uL (4.3-11.0)
[2022-10-15 06:19] LABS: ALBUMIN 3.1 GM/DL (3.2-4.5); POTASSIUM 4.1 MMOL/L (3.6-5.0)
[2022-10-15 06:20] LABS: CALCIUM 8.9 MG/DL (8.5-10.1)
[2022-10-15 06:21] LABS: TOTAL PROTEIN 5.9 GM/DL (6.4-8.2)
[2022-10-15 06:23] LABS: BILIRUBIN,TOTAL 0.4 MG/DL (0.1-1.0)
[2022-10-15 06:25] LABS: CREATININE SERUM 0.78 MG/DL (0.60-1.30)
[2022-10-15] MEDS: RT-ALBUTEROL/IPRATROPIUM 3 ML (DUONEB) VIAL INH SCH ×2 (07:11→18:54)
[2022-10-15] MEDS: DOCUSATE SODIUM 100 MG (COLACE) CAP PO SCH ×2 (07:54→20:58)
[2022-10-15] MEDS: SENNOSIDES 8.6 MG (SENOKOT) TAB PO SCH ×2 (07:54→20:58)
[2022-10-15] MEDS: PANTOPRAZOLE 40 MG (PROTONIX) TAB PO SCH (07:55)
[2022-10-15] MEDS: LACTOBACILLUS ACIDOPHILUS (PROBIOTIC) CAPSULE PO SCH (07:55)
[2022-10-15] MEDS: LOSARTAN 100 MG (COZAAR) TABLET PO SCH (07:55)
[2022-10-15] MEDS: GABAPENTIN 400 MG (NEURONTIN) CAP PO SCH ×3 (07:55→20:56)
[2022-10-15] MEDS: MULTIVIT W/MINERALS TAB (THERAGRAN M) PO SCH (07:55)
[2022-10-15] MEDS: buPROPion SR 100 MG (WELLBUTRIN SR) TAB PO SCH (07:55)
[2022-10-15] MEDS: busPIRone 15 MG (BUSPAR) TABLET PO SCH ×3 (07:55→21:09)
[2022-10-15] MEDS: MICONAZOLE 2% POWDER (DESENEX AF) 90 GM TOP SCH ×2 (07:56→21:02)
--- NOTE | 2022-10-15 08:12 | Progress Note - Surgery ---
KYAWSUKUMAR Woodard 10/15/22 0812: Subjective Date Seen by a Provider: Oct 15, 2022 Time Seen by a Provider: 06:50 Subjective/Events-last exam Pt is sitting in chair comfortably drinking coke. Pt states improvement of pain today, rating it a 4/10 walking and at rest. Does note some increased neuropathy pain but states she is due for her gabapentin. Pt states that she was able to ambulate yesterday with PT without issue. Pt continues to tolerate diet and denies any nausea. Pt has been voiding but notes that she feels increased urgency and pressure, stating that she thinks she may have a UTI. Pt does note that this has been going on for a few weeks. Pt denies any hematuria, chills, cough, SOB, lightheadedness, BRADEN, abd pain, and diarrhea. Review of Systems General: No Chills, No Night Sweats HEENT: No Head Aches, No Eye Pain Pulmonary: No Dyspnea, No Cough Cardiovascular: No: Chest Pain, Lt Headedness Gastrointestinal: No: Nausea, Vomiting, Abdominal Pain Genitourinary: No Dysuria, No Hematuria Musculoskeletal: leg pain; No: shoulder pain Neurological: No: Weakness, Numbness Objective Exam Vital Signs Date Time Temp Pulse Resp B/P (MAP) Pulse Ox O2 Delivery O2 Flow Rate FiO2 10/15/22 07:11 97 Room Air 10/15/22 04:50 36.4 67 16 172/78 (109) 94 Room Air 10/15/22 00:18 36.8 71 16 170/76 (107) 94 Room Air 10/14/22 21:08 94 Room Air 10/14/22 21:00 Room Air 10/14/22 20:00 37.1 76 22 136/71 (92) Room Air 10/14/22 16:00 37.3 72 18 151/65 (93) 92 Room Air 10/14/22 11:50 36.5 75 18 177/80 (112) 94 Room Air 10/14/22 08:56 94 Room Air 10/14/22 08:34 36.5 76 18 164/78 (106) 92 Room Air I & O 10/15/22 07:00 Intake Total 3235.0 ml Output Total 1150 ml Balance 2085.0 ml Capillary Refill : Less Than 3 Seconds General Appearance: No Apparent Distress, Anxious, Chronically ill, Obese HEENT: PERRL/EOMI Respiratory: No Accessory Muscle Use, No Respiratory Distress, Crackles (R base and L base) Cardiovascular: Regular Rate, Rhythm, No Murmur Gastrointestinal: non tender, soft Extremity: Pedal Edema (R dorsum of foot extending to just under the knee, swelling of anterior myles improved today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: Alert, Oriented x3 Skin: Warm/Dry, Rash (RLE erythema and swelling from just under knee to dorsum of foot, swelling and erythema of anterior myles improved today, dorsum of foot no change from yesterday; swelling vs fluctuance(?)) Results Lab Laboratory Tests 10/14/22 11:50: Glucometer 271H 10/14/22 16:13: Glucometer 162H 10/14/22 20:48: Glucometer 161H 10/15/22 05:18: Glucometer 171H 10/15/22 05:25: White Blood Count 9.3, Red Blood Count 4.64, Hemoglobin 13.0, Hematocrit 40, Mean Corpuscular Volume 86, Mean Corpuscular Hemoglobin 28, Mean Corpuscular Hemoglobin Concent 33, Red Cell Distribution Width 14.1, Platelet Count 261, Mean Platelet Volume 8.9L, Immature Granulocyte % (Auto) 0, Neutrophils (%) (Auto) 67, Lymphocytes (%) (Auto) 21, Monocytes (%) (Auto) 8, Eosinophils (%) (Auto) 4, Basophils (%) (Auto) 1, Neutrophils # (Auto) 6.2, Lymphocytes # (Auto) 1.9, Monocytes # (Auto) 0.7, Eosinophils # (Auto) 0.4H, Basophils # (Auto) 0.1, Immature Granulocyte # (Auto) 0.0, Sodium Level 134L, Potassium Level 4.1, Chloride Level 97L, Carbon Dioxide Level 27, Anion Gap 10, Blood Urea Nitrogen 10, Creatinine 0.78, Estimat Glomerular Filtration Rate 82, BUN/Creatinine Ratio 13, Glucose Level 163H, Calcium Level 8.9, Corrected Calcium 9.6, Total Bilirubin 0.4, Aspartate Amino Transf (AST/SGOT) 11, Alanine Aminotransferase (A LT/SGPT) 9, Alkaline Phosphatase 96, Total Protein 5.9L, Albumin 3.1L Assessment/Plan Assessment/Plan Assessment/Plan Assessment: 1) Cellulitis of Right Lower Extremity with Bilateral venous stasis 2) h/o COPD 3.) Hypertensive Pt's pain seems improved from yesterday. Swelling and erythema of R anterior myles seems to be improved today, dorsum of foot is unchanged from yesterday. Swelling vs fluctuance, probably still edema so would not recommend I&D at this time but will continue to monitor. Continue IV abx, anti-emetics prn, and pain medications prn. Pt is still hypertensive possibly still due to pt pain and anxiety, will continue to monitor. Clinical Quality Measures DVT/VTE Risk/Contraindication: Contraindications-Mechi: Other *list below* Other: leg cellulitis BOOGIE EDWARDS DO 10/15/22 0937: Subjective Time Seen by a Provider: 09:01 Subjective/Events-last exam Pt seen and examined, sitting up in chair and states she is feeling better. Review of Systems General: No Chills, No Night Sweats HEENT: No Head Aches Pulmonary: No Dyspnea, No Cough Cardiovascular: No: Chest Pain Gastrointestinal: No: Nausea Musculoskeletal: leg pain; No: shoulder pain Neurological: No: Weakness, Numbness Objective Exam General Appearance: No Apparent Distress, Anxious, Chronically ill, Obese HEENT: PERRL/EOMI Respiratory: No Accessory Muscle Use, No Respiratory Distress, Crackles (R base and L base) Cardiovascular: Regular Rate, Rhythm, No Murmur Gastrointestinal: non tender, soft Extremity: Pedal Edema (R dorsum of foot extending to just under the knee, swelling of anterior myles improved today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: Alert, Oriented x3 Skin: Warm/Dry, Rash (RLE erythema and swelling from just under knee to dorsum of foot, swelling and erythema of anterior myles improved today, dorsum of foot no change from yesterday; swelling vs fluctuance(?)) Assessment/Plan Assessment/Plan Assessment/Plan Assessment: 1) Cellulitis of Right Lower Extremity with Bilateral venous stasis 2) h/o COPD 3.) Hypertensive Pt's pain seems improved from yesterday. Swelling and erythema of R anterior myles seems to be improved today, dorsum of foot is unchanged from yesterday. Swelling vs fluctuance, probably still edema so would not recommend I&D at this time but will continue to monitor. Continue IV abx, anti-emetics prn, and pain medications prn. Will sign off and can reconsult if needed. Supervisory-Addendum Brief Verification & Attestation Participated in pt care: history, MDM, physical Personally performed: exam, history, MDM, supervision of care Care discussed with: Medical Student Procedures: n/a Verification and Attestation of Medical Student E/M Service A medical student performed and documented this service. I then reviewed and verified all information documented by the medical student and made modifications to such information, when appropriate. I personally performed a physical exam, medical decision making and then discussed any differences between the notes and made revisions as necessary to create one note. Boogie Edwards , 10/15/22 , 09:37 SUKUMAR PEREYRA Oct 15, 2022 08:12 BOOGIE EDWARDS DO Oct 15, 2022 09:37
[2022-10-15 08:17] VITALS: BP 173/77
[2022-10-15] MEDS ORDERED: PRESERVISION AREDS SOFTGEL (BAUSH & LOMB) PO SCH (09:00)
[2022-10-15] MEDS ORDERED: NON-FORMULARY MEDICATION 1 EA EA (Omeprazole 40 MG) PO SCH (09:00)
[2022-10-15] MEDS ORDERED: NON-FORMULARY MEDICATION 1 EA EA (Lutein 40 MG) PO SCH (09:00)
--- NOTE | 2022-10-15 11:48 | Physical Therapy Daily Note ---
PT Daily Note-Current Subjective Patient agrees to PT. Pain Section J - Health Conditions 1. Rarely or not at all 2. Occasionally 3. Frequently 4. Almost constantly 8. Unable to answer Pain Effect on Sleep: 1 Pain Interference with Therapy: 1 Pain Interference w/Day-to-Day: 1 Mental Status Patient Orientation: Normal For Age Attachments: IV Transfers SCALE: Activities may be completed with or without assistive devices. 1-Reoctaywjc-kstigsy completes the activity by him/herself with no assistance from a helper. 5-Set-up or Clean-up Assistance-helper sets up or cleans up; patient completes activity. [place] assists only prior to or following the activity. 4-Supervision or Touching Assistance-helper provides verbal cues and/or touching/steadying and/or contact guard assistance as patient completes ac tivity. Assistance may be provided throughout the activity or intermittently. 3-Partial/Moderate Assistance-helper does LESS THAN HALF the effort. [place] lifts, holds or supports trunk or limbs, but provides less than half the effort. 2-Substantial/Maximal Assistance-helper does MORE THAN HALF the effort. [place] lifts or holds trunk or limbs and provides more than half the effort. 1-Tzokgwcpl-kmegda does ALL the effort. Patient does none of the effort to complete the activity. Or, the assistance of 2 or more helpers is required for the patient to complete the activity. If activity was not attempted, code reason: 7-Patient Refused. 9-Not Applicable-not attempted and the patient did not perform the activity before the current illness, exacerbation or injury. 10-Not Attempted due to Environmental Limitations-(lack of equipment, weather restraints, etc.). 88-Not Attempted due to Medical Conditions or Safety Concerns. Sit to Stand (QC): 4 Gait Training Distance: 250' Walk 10 feet (QC): 4 Walk 50 ft with 2 Turns(QC): 4 Walk 150 ft (QC): 4 Gait Assistive Device: FWW steady gait sequence Exercises Seated Therapy Exercises: Ankle pumps, Long arc quads, Hip flexion Seated Reps: 15 Assessment Patient remains up in recliner with bilateral LE elevated. PT will continue to address functional mobility. PT Carton Stenciler Goals Carton Stenciler Goals PT Halfway Goals Time Frame: Oct 23, 2022 Roll Left & Right (QC): 6 Sit to Lying (QC): 6 Lying-Sitting on Side/Bed(QC): 6 Sit to Stand (QC): 6 Chair/Wfk-yr-Zktae Xfer(QC): 6 Toilet Transfer (QC): 6 Walk 10 feet (QC): 6 Walk 50ft with 2 Turns (QC): 6 Walk 150 ft (QC): 6 PT Plan Treatment/Plan Treatment Plan: Continue Plan of Care Treatment Plan: Bed Mobility, Education, Functional Activity [place], Functional Strength, Gait, Safety, Therapeutic Exercise, Transfers Treatment Duration: Oct 23, 2022 Frequency: 6 times per week Estimated Hrs Per Day: .25 hour per day Patient and/or Family Agrees t: Yes Time Time In: 1136 Time Out: 1146 DATE: Oct 15, 2022 Total Billed Treatment Time: 10 Total Billed Treatment 1 visit FA 10 min CAILIN COLEY PT Oct 15, 2022 11:48
[2022-10-15 11:53] VITALS: BP 152/85
--- NOTE | 2022-10-15 14:23 | Occupational Ther Daily Note ---
OT Current Status-Daily Note Subjective Pt alert, sitting in recliner. Pt agrees to therapy. No c/o pain. Mental Status/Objective Patient Orientation: Person, Place, Time, Situation ADL-Treatment Pt given toilet tongs for use for buttocks/max area cleansing. Pt educated on set up and how to use then recommended pt practice during the weekend and have questions for BAR on Tuesday. Pt verbalized understanding. Pt then educated on sock aide use and where to find. Pt demonstrated understanding of use of sock aide. After session, pt sitting in recliner with call light/phone in reach. All needs met in room. Therapy Code Descriptions/Definitions Functional [place] Measure: 0=Not Assessed/NA 4=Minimal Assistance 1=Total Assistance 5=Supervision or Setup 2=Maximal Assistance 6=Modified [place] 3=Moderate Assistance 7=Complete IndependenceSCALE: Activities may be completed with or without assistive devices. 1-Lovgwqihpw-xzrhuih completes the activity by him/herself with no assistance from a helper. 5-Set-up or Clean-up Assistance-helper sets up or cleans up; patient completes activity. [place] assists only prior to or following the activity. 4-Supervision or Touching Assistance-helper provides verbal cues and/or touching/steadying and/or contact guard assistance as patient completes activity. Assistance may be provided throughout the activity or intermittently. 3-Partial/Moderate Assistance-helper does LESS THAN HALF the effort. [place] lifts, holds or supports trunk or limbs, but provides less than half the effort. 2-Substantial/Maximal Assistance-helper does MORE THAN HALF the effort. [place] lifts or holds trunk or limbs and provides more than half the effort. 2-Xyzkzrrws-ligqis does ALL the effort. Patient does none of the effort to complete the activity. Or, the assistance of 2 or more helpers is required for the patient to complete the activity. If activity was not attempted, code reason: 7-Patient Refused. 9-Not Applicable-not attempted and the patient did not perform the activity before the current illness, exacerbation or injury. 10-Not Attempted due to Environmental Limitations-(lack of equipment, weather restraints, etc.). 88-Not Attempted due to Medical Conditions or Safety Concerns. OT Retirement Officer Goals Shelter Goals Time Frame: Oct 22, 2022 Eating (QC): 6 Oral Hygiene (QC): 6 Toileting Hygiene (QC): 4 Shower/Bathe Self (QC): 3 Upper Body Dressing (QC): 5 Lower Body Dressing (QC): 4 On/Off Footwear (QC): 4 Additional Goals: 1-Demonstrate ADL Tasks, 2-Verbalize Understanding, 3- ImproveStrength/[place]rick 1=Demonstrate adherence to instructed precautions during ADL tasks. 2=Patient will verbalize/demonstrate understanding of assistive devices/modifications for ADL. 3=Patient will improve strength/tolerance for activity to enable patient to perform ADL's. OT Education/Plan Problem List/Assessment Assessment: Decreased Activ Tolerance, Impaired Self-Care Skills Discharge Recommendations Plan/Recommendations: Continue POC Treatment Plan/Plan of Care Patient would benefit from OT for education, treatment and training to promote independence in ADL's, mobility, safety and/or upper extremity function for ADL's. Plan of Care: ADL Retraining, Functional Mobility, UE Funct Exercise/Act Treatment Duration: Oct 22, 2022 Frequency: 3 times per week (3-5 times per week) Estimated Hrs Per Day: .25 hour per day Agreement: Yes Rehab Potential: Guarded Time Start Time: 13:30 Stop Time: 13:46 DATE: Oct 15, 2022 Total Time Billed (hr/min): 16 Billed Treatment Time 1 visit-FA 1 (16 min) JAMEEL GARCIA Oct 15, 2022 14:23
--- NOTE | 2022-10-15 15:10 | Progress Note - Hospitalist ---
KINGAMARQUEZ 10/15/22 1510: Subjective HPI/CC On Admission Time Seen by Provider: 09:30 Chief complaint: Right leg cellulitis failed p.o. antibiotics HPI: This is a 67-year-old female who has diabetes who presents to the ER with r ight leg pain and redness. Apparently she suffered about a wound on her right foot. Was placed on antibiotics but it worsened so she was admitted. General surgery will continue to follow. No incision and drainage required. IV antibiotics maintained. Home meds will be restarted. Subjective/Events-last exam Today Loida was seen lying in bed, she was very pleasent and said that her leg is feeling a lot better and she is able to ambulate and work with PT well. She was worried that her surgery consult told her "no surgery and that she would be ready to go today", she requested staying longer because she didnt feel ready to be on her own. Its planned to keep her over the weekend and DC on tuesday10/18/22. Review of Systems General: No Chills, No Night Sweats; Fatigue; No Malaise Pulmonary: No Dyspnea, No Cough, No Pleuritic Chest Pain Cardiovascular: No: Chest Pain, Palpitations, Lt Headedness Gastrointestinal: Constipation; No: Nausea, Vomiting, Diarrhea Musculoskeletal: leg pain, foot pain Objective Exam Vital Signs Vital Signs Date Time Temp Pulse Resp B/P (MAP) Pulse Ox O2 Delivery O2 Flow Rate FiO2 10/15/22 11:53 36.6 63 17 152/85 (107) 95 Room Air 10/13/22 16:54 28 10/13/22 16:35 2.00 Capillary Refill : Less Than 3 Seconds General Appearance: No Apparent Distress, WD/WN Neck: Full Range of Motion, Normal Inspection, Non Tender, Supple Respiratory: Chest Non Tender, Lungs Clear, Normal Breath Sounds, No Accessory Muscle Use, No Respiratory Distress Cardiovascular: Regular Rate, Rhythm, No Edema, No Gallop, No JVD, No Murmur, Normal Peripheral Pulses Gastrointestinal: No Organomegaly, No Pulsatile Mass, Non Tender, Soft Back: Normal Inspection, No CVA Tenderness, No Vertebral Tenderness Extremity: Normal Inspection, Normal Range of Motion, Calf Tenderness, Inflammation, Swelling Neurologic/Psychiatric: Alert, Oriented x3, Normal Mood/Affect Skin: Warm/Dry, Ecchymosis, Erythema, Other (hot) Lymphatic: No Adenopathy Results/Procedures Lab Laboratory Tests 10/15/22 05:25 Patient resulted labs reviewed. Assessment/Plan Assessment and Plan Assess & Plan/Chief Complaint A: Cellulitis of R. LE Diabetic neuropathy DM w/hyperglycemia HTN Hyponatremia constipation P: Abx/anti-fungal regimen(vancomycin, pipericillin/tazobactam, miconazole) Glucose regulation Diet, home medications BP control(diuretics) Miralax fluids/rest Clinical Quality Measures DVT/VTE Risk/Contraindication: Contraindications-Mechi: Other *list below* Other: leg cellulitis BEBE SWAIN DO 10/16/22 0530: Supervisory-Addendum Brief Verification & Attestation Participated in pt care: history, MDM, physical Personally performed: exam, history, MDM, supervision of care Care discussed with: Medical Student Procedures: n/a Results interpretation: Verified all documentation Verification and Attestation of Medical Student E/M Service A medical student performed and documented this service in my presence. I reviewed and verified all information documented by the medical student and made modifications to such information, when appropriate. I personally performed the physical exam and medical decision making. Bebe Swain, Oct 16, 2022,05:30 MARQUEZ DONATO Oct 15, 2022 15:10 BEBE SWAIN DO Oct 16, 2022 05:30
[2022-10-15 15:16] VITALS: BP 178/81
[2022-10-15 19:07] VITALS: BP 162/78
[2022-10-15] MEDS: hydrOXYzine (VISTARIL/ATARAX) 25 MG capsule/tablet PO SCH (20:56)
[2022-10-16] VITALS (8 sets, daily range): BP systolic 165–198; BP diastolic 77–96
[2022-10-16] MEDS: VANCOMYCIN 1250 MG/NS 250 ML IVPB IV SCH ×2 (01:51)
[2022-10-16] MEDS: PIPERACILLIN SODIUM/TAZOBACTAM 4.5 GM in NS (IVPB) 100 ML IV SCH ×3 (03:48→18:50)
[2022-10-16] MEDS: HYDROmorphone 2 MG/ML VIAL (DILAUDID) IV PRN (03:56)
[2022-10-16] MEDS: ENOXAPARIN 40 MG/0.4 ML (LOVENOX) SYR SC SCH ×2 (04:00→16:44)
[2022-10-16 04:08] LABS: BASOPHILS # (AUTO) 0.1 10^3/uL (0.0-0.1); BASOPHILS % (AUTO) 1 % (0-10); EOSINOPHILS # (AUTO) 0.5 10^3/uL (0.0-0.3); EOSINOPHILS % (AUTO) 4 % (0-10); HEMATOCRIT 40 % (35-52); HEMOGLOBIN 13.4 g/dL (11.5-16.0); LYMPHOCYTES # (AUTO) 2.2 10^3/uL (1.0-4.0); LYMPHOCYTES % (AUTO) 18 % (12-44); MEAN CORPUSCULAR HEMOGLOBIN 28 pg (25-34); MEAN CORPUSCULAR HGB CONC 34 g/dL (32-36); MEAN CORPUSCULAR VOLUME 84 fL (80-99); MEAN PLATELET VOLUME 8.7 fL (9.0-12.2); MONOCYTES # (AUTO) 0.8 10^3/uL (0.0-1.0); MONOCYTES % (AUTO) 7 % (0-12); NEUTROPHILS # (AUTO) 8.7 10^3/uL (1.8-7.8); NEUTROPHILS % (AUTO) 70 % (42-75); PLATELET COUNT 315 10^3/uL (130-400); WHITE BLOOD COUNT 12.3 10^3/uL (4.3-11.0)
[2022-10-16 04:20] LABS: ALBUMIN 3.3 GM/DL (3.2-4.5); POTASSIUM 4.1 MMOL/L (3.6-5.0)
[2022-10-16 04:21] LABS: CALCIUM 9.7 MG/DL (8.5-10.1)
[2022-10-16 04:23] LABS: TOTAL PROTEIN 6.5 GM/DL (6.4-8.2)
[2022-10-16 04:24] LABS: BILIRUBIN,TOTAL 0.4 MG/DL (0.1-1.0)
[2022-10-16 04:26] LABS: CREATININE SERUM 0.79 MG/DL (0.60-1.30)
[2022-10-16] MEDS: inSUlin ASPART (NovoLOG) 1 UNIT/0.01 ML (CHARGE PER UNIT) SC SCH ×7 (04:41→20:46)
--- NOTE | 2022-10-16 06:28 | Progress Note - Hospitalist ---
Subjective HPI/CC On Admission Date Seen by Provider: Oct 16, 2022 Time Seen by Provider: 11:00 Chief complaint: Right leg cellulitis failed p.o. antibiotics HPI: This is a 67-year-old female who has diabetes who presents to the ER with right leg pain and redness. Apparently she suffered about a wound on her right foot. Was placed on antibiotics but it worsened so she was admitted. General surgery will continue to follow. No incision and drainage required. IV antibiotics maintained. Home meds will be restarted. Subjective/Events-last exam No major issues Right leg improved redness still present Edema is improved Able to walk around the room Review of Systems General: Fatigue, Malaise Musculoskeletal: leg pain Objective Exam Vital Signs Vital Signs Date Time Temp Pulse Resp B/P (MAP) Pulse Ox O2 Delivery O2 Flow Rate FiO2 10/17/22 04:00 36.9 65 16 132/71 (91) 92 Room Air 10/16/22 20:28 21 10/13/22 16:35 2.00 Capillary Refill : Less Than 3 Seconds General Appearance: No Apparent Distress, WD/WN, Chronically ill Respiratory: Lungs Clear, Normal Breath Sounds Cardiovascular: Regular Rate, Rhythm Extremity: Swelling (Right leg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: Alert, Oriented x3 Skin: Rash (Improved redness) Results/Procedures Lab Patient resulted labs reviewed. Assessment/Plan Assessment and Plan Assess & Plan/Chief Complaint A: Cellulitis of R. LE Diabetic neuropathy DM w/hyperglycemia HTN Hyponatremia constipation P: Abx/anti-fungal regimen(vancomycin, pipericillin/tazobactam, miconazole) Glucose regulation Diet, home medications BP control(diuretics) Miralax fluids/rest Diagnosis/Problems Diagnosis/Problems (1) Cellulitis of right lower extremity Status: Acute Clinical Quality Measures DVT/VTE Risk/Contraindication: Contraindications-Mechi: Other *list below* Other: leg cellulitis HERMILA SWAIN DO Oct 16, 2022 06:28
[2022-10-16] MEDS: RT-ALBUTEROL/IPRATROPIUM 3 ML (DUONEB) VIAL INH SCH (08:03)
[2022-10-16] MEDS: SENNOSIDES 8.6 MG (SENOKOT) TAB PO SCH ×2 (08:37→20:45)
[2022-10-16] MEDS: buPROPion SR 100 MG (WELLBUTRIN SR) TAB PO SCH (08:37)
[2022-10-16] MEDS: LACTOBACILLUS ACIDOPHILUS (PROBIOTIC) CAPSULE PO SCH (08:37)
[2022-10-16] MEDS: DOCUSATE SODIUM 100 MG (COLACE) CAP PO SCH ×2 (08:37→20:45)
[2022-10-16] MEDS: MULTIVIT W/MINERALS TAB (THERAGRAN M) PO SCH (08:37)
[2022-10-16] MEDS: LOSARTAN 100 MG (COZAAR) TABLET PO SCH (08:37)
[2022-10-16] MEDS: GABAPENTIN 400 MG (NEURONTIN) CAP PO SCH ×4 (08:37→20:10)
[2022-10-16] MEDS: PANTOPRAZOLE 40 MG (PROTONIX) TAB PO SCH (08:37)
[2022-10-16] MEDS: busPIRone 15 MG (BUSPAR) TABLET PO SCH ×2 (08:41→20:09)
[2022-10-16] MEDS: MICONAZOLE 2% POWDER (DESENEX AF) 90 GM TOP SCH ×2 (08:43→20:46)
--- NOTE | 2022-10-16 14:24 | Physical Therapy Daily Note ---
PT Daily Note-Current Subjective Pt finishing lunch upon [employer]OR SALES SUPPORT first arrival. [employer] SALES [employer] will give pt a few minutes to finish lunch then return. Upon return, pt had finished lunch and agrees to PT. Pain Location: Right, Left, Anterior Location Body Site: Foot Pain Description: Ache Comment: Pt reports pain due to Cellulitis but doesn't rate, Nurse informed. Section J - Health Conditions 1. Rarely or not at all 2. Occasionally 3. Frequently 4. Almost constantly 8. Unable to answer Pain Effect on Sleep: 1 Pain Interference with Therapy: 1 Pain Interference w/Day-to-Day: 1 Mental Status Patient Orientation: Person, Place, Situation Attachments: IV Transfers SCALE: Activities may be completed with or without assistive devices. 1-Qqtirbvinh-xgfhcdp completes the activity by him/herself with no assistance from a helper. 5-Set-up or Clean-up Assistance-helper sets up or cleans up; patient completes activity. [place] assists only prior to or following the activity. 4-Supervision or Touching Assistance-helper provides verbal cues and/or touching/steadying and/or contact guard assistance as patient completes activity. Assistance may be provided throughout the activity or intermittently. 3-Partial/Moderate Assistance-helper does LESS THAN HALF the effort. [place] lifts, holds or supports trunk or limbs, but provides less than half the effort. 2-Substantial/Maximal Assistance-helper does MORE THAN HALF the effort. [place] lifts or holds trunk or limbs and provides more than half the effort. 2-Qpuxcijye-pqngpf does ALL the effort. Patient does none of the effort to complete the activity. Or, the assistance of 2 or more helpers is required for the patient to complete the activity. If activity was not attempted, code reason: 7-Patient Refused. 9-Not Applicable-not attempted and the patient did not perform the activity before the current illness, exacerbation or injury. 10-Not Attempted due to Environmental Limitations-(lack of equipment, weather restraints, etc.). 88-Not Attempted due to Medical Conditions or Safety Concerns. Sit to Stand (QC): 5 Weight Bearing Full Weight Bearing Full Weight Bearing Gait Training Does the Patient Walk?: Yes Distance: 250' Walk 10 feet (QC): 5 Walk 50 ft with 2 Turns(QC): 5 Walk 150 ft (QC): 5 Gait Assistive Device: FWW Treatments TF to standing and amb. in hallway, taking standing RB as needed. Pt returns to room to rest in recliner w/feet elevated. All needs met, call light in hand. Assessment Current Status: Good Progress Pt isidoro. amb. well. PT [facility] Goals Hospitality Director Goals PT [facility] Goals Time Frame: Oct 23, 2022 Roll Left & Right (QC): 6 Sit to Lying (QC): 6 Lying-Sitting on Side/Bed(QC): 6 Sit to Stand (QC): 6 Chair/Hsi-cr-Fzkwa Xfer(QC): 6 Toilet Transfer (QC): 6 Walk 10 feet (QC): 6 Walk 50ft with 2 Turns (QC): 6 Walk 150 ft (QC): 6 PT Plan Problem List Problem List: Activity Tolerance Treatment/Plan Treatment Plan: Continue Plan of Care Treatment Plan: Bed Mobility, Education, Functional Activity [place], Functional Strength, Gait, Safety, Therapeutic Exercise, Transfers Treatment Duration: Oct 23, 2022 Frequency: 6 times per week Estimated Hrs Per Day: .25 hour per day Patient and/or Family Agrees t: Yes Time Time In: 1355 Time Out: 1410 DATE: Oct 16, 2022 Total Billed Treatment Time: 15 Total Billed Treatment 1, GT (15m) ISAAC DELEON PTA Oct 16, 2022 14:24
[2022-10-16] MEDS: hydrOXYzine (VISTARIL/ATARAX) 25 MG capsule/tablet PO SCH (20:10)
[2022-10-17] VITALS (7 sets, daily range): BP systolic 132–189; BP diastolic 71–95
[2022-10-17] MEDS: MELATONIN 3 MG TABLET PO PRN (00:08)
[2022-10-17] MEDS: PIPERACILLIN SODIUM/TAZOBACTAM 4.5 GM in NS (IVPB) 100 ML IV SCH ×3 (03:59→17:58)
[2022-10-17] MEDS: ENOXAPARIN 40 MG/0.4 ML (LOVENOX) SYR SC SCH ×2 (04:18→18:00)
[2022-10-17] MEDS: inSUlin ASPART (NovoLOG) 1 UNIT/0.01 ML (CHARGE PER UNIT) SC SCH ×7 (05:31→20:37)
--- NOTE | 2022-10-17 06:34 | Progress Note - Hospitalist ---
Subjective HPI/CC On Admission Date Seen by Provider: Oct 17, 2022 Time Seen by Provider: 11:00 Chief complaint: Right leg cellulitis failed p.o. antibiotics HPI: This is a 67-year-old female who has diabetes who presents to the ER with right leg pain and redness. Apparently she suffered about a wound on her right foot. Was placed on antibiotics but it worsened so she was admitted. General surgery will continue to follow. No incision and drainage required. IV antibiotics maintained. Home meds will be restarted. Subjective/Events-last exam Patient doing a lot better Right leg improved Less edema and redness Blood sugars low so adjusted down insulin Review of Systems General: Fatigue, Malaise Musculoskeletal: leg pain Objective Exam Vital Signs Vital Signs Date Time Temp Pulse Resp B/P (MAP) Pulse Ox O2 Delivery O2 Flow Rate FiO2 10/17/22 15:25 37.1 66 18 141/95 (110) 95 Room Air 10/16/22 20:28 21 10/13/22 16:35 2.00 Capillary Refill : Less Than 3 Seconds General Appearance: No Apparent Distress, WD/WN, Chronically ill, Obese Respiratory: Lungs Clear Cardiovascular: Regular Rate, Rhythm Neurologic/Psychiatric: Alert, Oriented x3 Skin: Rash (Improved right leg cellulitis) Results/Procedures Lab Laboratory Tests 10/17/22 05:33 10/17/22 07:52 Patient resulted labs reviewed. Assessment/Plan Assessment and Plan Assess & Plan/Chief Complaint A: Cellulitis of R. LE Diabetic neuropathy DM w/hyperglycemia HTN Hyponatremia constipationresolved P: Abx/anti-fungal regimen(vancomycin, pipericillin/tazobactam, miconazole) Glucose regulation Diet, home medications BP control(diuretics) Miralax fluids/rest Diagnosis/Problems Diagnosis/Problems (1) Cellulitis of right lower extremity Status: Acute Clinical Quality Measures DVT/VTE Risk/Contraindication: Contraindications-Mechi: Other *list below* Other: leg cellulitis HERMILA SWAIN DO Oct 17, 2022 06:34
[2022-10-17 07:16] LABS: ALBUMIN 3.4 GM/DL (3.2-4.5); BILIRUBIN,TOTAL 0.4 MG/DL (0.1-1.0); CALCIUM 9.3 MG/DL (8.5-10.1); CREATININE SERUM 0.79 MG/DL (0.60-1.30); POTASSIUM 3.8 MMOL/L (3.6-5.0); TOTAL PROTEIN 6.7 GM/DL (6.4-8.2)
[2022-10-17 08:03] LABS: BASOPHILS # (AUTO) 0.1 10^3/uL (0.0-0.1); BASOPHILS % (AUTO) 1 % (0-10); EOSINOPHILS # (AUTO) 0.5 10^3/uL (0.0-0.3); EOSINOPHILS % (AUTO) 5 % (0-10); HEMATOCRIT 42 % (35-52); HEMOGLOBIN 13.5 g/dL (11.5-16.0); LYMPHOCYTES % (AUTO) 18 % (12-44); MEAN CORPUSCULAR HEMOGLOBIN 28 pg (25-34); MEAN CORPUSCULAR HGB CONC 32 g/dL (32-36); MEAN CORPUSCULAR VOLUME 86 fL (80-99); MEAN PLATELET VOLUME 8.4 fL (9.0-12.2); MONOCYTES # (AUTO) 0.7 10^3/uL (0.0-1.0); MONOCYTES % (AUTO) 6 % (0-12); NEUTROPHILS # (AUTO) 7.6 10^3/uL (1.8-7.8); NEUTROPHILS % (AUTO) 70 % (42-75); PLATELET COUNT 303 10^3/uL (130-400); WHITE BLOOD COUNT 10.9 10^3/uL (4.3-11.0)
[2022-10-17] MEDS: PANTOPRAZOLE 40 MG (PROTONIX) TAB PO SCH (08:11)
[2022-10-17] MEDS: LOSARTAN 100 MG (COZAAR) TABLET PO SCH (08:11)
[2022-10-17] MEDS: SENNOSIDES 8.6 MG (SENOKOT) TAB PO SCH ×2 (08:11→20:00)
[2022-10-17] MEDS: DOCUSATE SODIUM 100 MG (COLACE) CAP PO SCH ×2 (08:11→20:00)
[2022-10-17] MEDS: MULTIVIT W/MINERALS TAB (THERAGRAN M) PO SCH (08:11)
[2022-10-17] MEDS: LACTOBACILLUS ACIDOPHILUS (PROBIOTIC) CAPSULE PO SCH (08:11)
[2022-10-17] MEDS: GABAPENTIN 400 MG (NEURONTIN) CAP PO SCH ×4 (08:11→19:57)
[2022-10-17] MEDS: MICONAZOLE 2% POWDER (DESENEX AF) 90 GM TOP SCH ×2 (08:15→20:43)
[2022-10-17] MEDS: busPIRone 15 MG (BUSPAR) TABLET PO SCH ×2 (08:15→19:57)
[2022-10-17] MEDS: buPROPion SR 100 MG (WELLBUTRIN SR) TAB PO SCH (08:15)
[2022-10-17] MEDS ORDERED: amLODIPine 5 MG (NORVASC) TAB PO ONE (11:45)
[2022-10-17] MEDS ORDERED: amLODIPine 5 MG (NORVASC) TAB ONE (12:39)
[2022-10-17] MEDS: hydrOXYzine (VISTARIL/ATARAX) 25 MG capsule/tablet PO SCH (19:57)
[2022-10-18] MEDS: PIPERACILLIN SODIUM/TAZOBACTAM 4.5 GM in NS (IVPB) 100 ML IV SCH ×2 (03:13→11:09)
[2022-10-18] MEDS: ENOXAPARIN 40 MG/0.4 ML (LOVENOX) SYR SC SCH (04:19)
[2022-10-18 04:23] VITALS: BP 162/69
[2022-10-18 05:51] LABS: BASOPHILS # (AUTO) 0.1 10^3/uL (0.0-0.1); BASOPHILS % (AUTO) 1 % (0-10); EOSINOPHILS # (AUTO) 0.5 10^3/uL (0.0-0.3); EOSINOPHILS % (AUTO) 6 % (0-10); HEMATOCRIT 41 % (35-52); HEMOGLOBIN 13.2 g/dL (11.5-16.0); LYMPHOCYTES # (AUTO) 1.7 10^3/uL (1.0-4.0); LYMPHOCYTES % (AUTO) 18 % (12-44); MEAN CORPUSCULAR HEMOGLOBIN 28 pg (25-34); MEAN CORPUSCULAR HGB CONC 32 g/dL (32-36); MEAN CORPUSCULAR VOLUME 86 fL (80-99); MEAN PLATELET VOLUME 8.8 fL (9.0-12.2); MONOCYTES # (AUTO) 0.6 10^3/uL (0.0-1.0); MONOCYTES % (AUTO) 6 % (0-12); NEUTROPHILS # (AUTO) 6.4 10^3/uL (1.8-7.8); NEUTROPHILS % (AUTO) 69 % (42-75); PLATELET COUNT 300 10^3/uL (130-400); WHITE BLOOD COUNT 9.4 10^3/uL (4.3-11.0)
[2022-10-18 06:12] LABS: ALBUMIN 3.3 GM/DL (3.2-4.5); POTASSIUM 3.9 MMOL/L (3.6-5.0)
[2022-10-18 06:13] LABS: CALCIUM 9.3 MG/DL (8.5-10.1)
[2022-10-18 06:15] LABS: TOTAL PROTEIN 6.4 GM/DL (6.4-8.2)
[2022-10-18 06:16] LABS: BILIRUBIN,TOTAL 0.4 MG/DL (0.1-1.0)
[2022-10-18] MEDS: inSUlin ASPART (NovoLOG) 1 UNIT/0.01 ML (CHARGE PER UNIT) SC SCH ×5 (06:17→16:12)
[2022-10-18 06:18] LABS: CREATININE SERUM 1.01 MG/DL (0.60-1.30)
[2022-10-18 07:18] VITALS: BP 186/76
[2022-10-18] MEDS: buPROPion SR 100 MG (WELLBUTRIN SR) TAB PO SCH (07:59)
[2022-10-18] MEDS: SENNOSIDES 8.6 MG (SENOKOT) TAB PO SCH (07:59)
[2022-10-18] MEDS: LOSARTAN 100 MG (COZAAR) TABLET PO SCH (07:59)
[2022-10-18] MEDS: MULTIVIT W/MINERALS TAB (THERAGRAN M) PO SCH (08:00)
[2022-10-18] MEDS: LACTOBACILLUS ACIDOPHILUS (PROBIOTIC) CAPSULE PO SCH (08:00)
[2022-10-18] MEDS: busPIRone 15 MG (BUSPAR) TABLET PO SCH (08:00)
[2022-10-18] MEDS: GABAPENTIN 400 MG (NEURONTIN) CAP PO SCH ×2 (08:00→12:24)
[2022-10-18] MEDS: PANTOPRAZOLE 40 MG (PROTONIX) TAB PO SCH (08:00)
[2022-10-18] MEDS: DOCUSATE SODIUM 100 MG (COLACE) CAP PO SCH (08:00)
[2022-10-18] MEDS: MICONAZOLE 2% POWDER (DESENEX AF) 90 GM TOP SCH (08:01)
[2022-10-18] MEDS ORDERED: amLODIPine 5 MG (NORVASC) TAB PO SCH (09:00)
--- NOTE | 2022-10-18 09:36 | Physical Therapy Daily Note ---
PT Daily Note-Current Subjective Patient reports decrease c/o pain right LE with noted decrease in edema and redness. Pain Numeric Pain Scale: 3 Location: Right Location Body Site: Calf Section J - Health Conditions 1. Rarely or not at all 2. Occasionally 3. Frequently 4. Almost constantly 8. Unable to answer Pain Effect on Sleep: 1 Pain Interference with Therapy: 1 Pain Interference w/Day-to-Day: 1 Mental Status Patient Orientation: Normal For Age Transfers SCALE: Activities may be completed with or without assistive devices. 5-Uomhncrdts-gktkgsv completes the activity by him/herself with no assistance from a helper. 5-Set-up or Clean-up Assistance-helper sets up or cleans up; patient completes activity. [place] assists only prior to or following the activity. 4-Supervision or Touching Assistance-helper provides verbal cues and/or touching/steadying and/or contact guard assistance as patient completes activity. Assistance may be provided throughout the activity or intermittently. 3-Partial/Moderate Assistance-helper does LESS THAN HALF the effort. [place] lifts, holds or supports trunk or limbs, but provides less than half the effort. 2-Substantial/Maximal Assistance-helper does MORE THAN HALF the effort. [place] lifts or holds trunk or limbs and provides more than half the effort. 8-Cddqcnpgm-mhzgvq does ALL the effort. Patient does none of the effort to complete the activity. Or, the assistance of 2 or more helpers is required for the patient to complete the activity. If activity was not attempted, code reason: 7-Patient Refused. 9-Not Applicable-not attempted and the patient did not perform the activity befo re the current illness, exacerbation or injury. 10-Not Attempted due to Environmental Limitations-(lack of equipment, weather re straints, etc.). 88-Not Attempted due to Medical Conditions or Safety Concerns. Lying to Sitting/Side of Bed(Q: 6 Sit to Stand (QC): 6 Chair/Xvd-jn-Yymsn Xfer(QC): 6 Weight Bearing Full Weight Bearing Full Weight Bearing Gait Training Distance: 300' Walk 10 feet (QC): 5 Walk 50 ft with 2 Turns(QC): 5 Walk 150 ft (QC): 5 Gait Assistive Device: FWW slow, steady, functional gait sequence Assessment Patient improving with treatment plan and is up in recliner with needs met. PT to continue to increase activity as tolerated by patient. PT [facility] Goals Occupational Therapy Specialist Goals PT Occupational Therapy Specialist Goals Time Frame: Oct 23, 2022 Roll Left & Right (QC): 6 Sit to Lying (QC): 6 Lying-Sitting on Side/Bed(QC): 6 Sit to Stand (QC): 6 Chair/Cuv-pg-Zwoku Xfer(QC): 6 Toilet Transfer (QC): 6 Walk 10 feet (QC): 6 Walk 50ft with 2 Turns (QC): 6 Walk 150 ft (QC): 6 PT Plan Treatment/Plan Treatment Plan: Continue Plan of Care Treatment Plan: Bed Mobility, Education, Functional Activity Garrick, Functional Strength, Gait, Safety, Therapeutic Exercise, Transfers Treatment Duration: Oct 23, 2022 Frequency: 6 times per week Estimated Hrs Per Day: .25 hour per day Patient and/or Family Agrees t: Yes Time Time In: 757 Time Out: 812 DATE: Oct 18, 2022 Total Billed Treatment Time: 15 Total Billed Treatment 1 visit FA 15 min CAILIN COLEY PT Oct 18, 2022 09:36
[2022-10-18 11:20] VITALS: BP 153/71
--- NOTE | 2022-10-18 11:20 | Occupational Ther Daily Note ---
OT Current Status-Daily Note Subjective Pt alert, sitting in recliner. Pt agrees to therapy. No c/o pain. Pt states that she is discharging to home today. Mental Status/Objective Patient Orientation: Person, Place, Time, Situation Attachments: IV ADL-Treatment Pt states that she needs more practice with using toilet tongs, she sent them home so could not work on it with BAR. Pt independent with toileting/voiding and toilet transfer. Pt stated she just 'dripped dried'. Therapy Code Descriptions/Definitions Functional [place] Measure: 0=Not Assessed/NA 4=Minimal Assistance 1=Total Assistance 5=Supervision or Setup 2=Maximal Assistance 6=Modified [place] 3=Moderate Assistance 7=Complete IndependenceSCALE: Activities may be completed with or without assistive devices. 4-Dnrzrlnswd-nncrhko completes the activity by him/herself with no assistance from a helper. 5-Set-up or Clean-up Assistance-helper sets up or cleans up; patient completes activity. [place] assists only prior to or following the activity. 4-Supervision or Touching Assistance-helper provides verbal cues and/or touching/steadying and/or contact guard assistance as patient completes activity. Assistance may be provided throughout the activity or intermittently. 3-Partial/Moderate Assistance-helper does LESS THAN HALF the effort. [place] lifts, holds or supports trunk or limbs, but provides less than half the effort. 2-Substantial/Maximal Assistance-helper does MORE THAN HALF the effort. [place] lifts or holds trunk or limbs and provides more than half the effort. 5-Agrdmtsyz-mdbrxv does ALL the effort. Patient does none of the effort to complete the activity. Or, the assistance of 2 or more helpers is required for the patient to complete the activity. If activity was not attempted, code reason: 7-Patient Refused. 9-Not Applicable-not attempted and the patient did not perform the activity before the current illness, exacerbation or injury. 10-Not Attempted due to Environmental Limitations-(lack of equipment, weather restraints, etc.). 88-Not Attempted due to Medical Conditions or Safety Concerns. Other Treatment Pt completed 3 B UE strengthening exercises against gravity with skilled instruction for correct technique. 1 set 20 reps and 1 set 10 reps for shldr abd/add and shld flex/ext, 2 sets 10 reps for shldr elevation. After session, pt sitting in recliner with call light/phone in reach. All needs met in room. OT [place] [employer] Goals [facility] Goals Time Frame: Oct 22, 2022 Eating (QC): 6 Oral Hygiene (QC): 6 Toileting Hygiene (QC): 4 Shower/Bathe Self (QC): 3 Upper Body Dressing (QC): 5 Lower Body Dressing (QC): 4 On/Off Footwear (QC): 4 Additional Goals: 1-Demonstrate ADL Tasks, 2-Verbalize Understanding, 3- ImproveStrength/Garrick 1=Demonstrate adherence to instructed precautions during ADL tasks. 2=Patient will verbalize/demonstrate understanding of assistive devices/modifications for ADL. 3=Patient will improve strength/tolerance for activity to enable patient to perform ADL's. OT Education/Plan Problem List/Assessment Assessment: Decreased Activ Tolerance, Impaired Self-Care Skills Discharge Recommendations Plan/Recommendations: Continue POC Treatment Plan/Plan of Care Patient would benefit from OT for education, treatment and training to promote independence in ADL's, mobility, safety and/or upper extremity function for ADL's. Plan of Care: ADL Retraining, Functional Mobility, UE Funct Exercise/Act Treatment Duration: Oct 22, 2022 Frequency: 3 times per week (3-5 times per week) Estimated Hrs Per Day: .25 hour per day Agreement: Yes Rehab Potential: Guarded Time Start Time: 10:35 Stop Time: 10:51 DATE: Oct 18, 2022 Total Time Billed (hr/min): 16 Billed Treatment Time 1 visit-ADL 1 (16 min) JAMEEL GARCIA Oct 18, 2022 11:20
--- NOTE | 2022-10-18 12:14 | Discharge Summary ---
Diagnosis/Chief Complaint Date of Admission Oct 13, 2022 at 16:42 Date of Discharge 10/18/22 Admission Diagnosis Admission Diagnosis Cellulitis of R lower extremity DM Neuropathy DM with hyperglycemia HTN Hyponatremia Discharge Diagnosis See Above Discharge Summary-Simple/Stand Consultations Discharge Physical Examination Allergies: Coded Allergies: exenatide (Unverified Allergy, Unknown, 03/24/22) methylphenidate (Unverified Allergy, Unknown, 03/24/22) morphine (Verified Adverse Reaction, Mild, NAUSEA, 05/19/16) sulfamethoxazole (Unverified Adverse Reaction, Unknown, 10/13/22) HALLUCINATIONS trimethoprim (Unverified Adverse Reaction, Unknown, 10/13/22) HALLUCINATIONS Vitals & I&Os Vital Sign - Last 12Hours Date Time Temp Pulse Resp B/P (MAP) Pulse Ox O2 Delivery O2 Flow Rate FiO2 10/18/22 11:20 36.3 70 20 153/71 (98) 95 Room Air 10/16/22 20:28 21 10/13/22 16:35 2.00 Intake and Output 10/18/22 00:00 Intake Total 2090 ml Output Total 1100 ml Balance 990 ml General Appearance: Alert, Oriented X3, No Acute Distress Respiratory: Clear to Auscultation, Normal Air Movement Cardiovascular: Regular Rate, No Murmurs Abdominal: Normal Bowel Sounds, Soft, No Tenderness, No Masses Extremities: Other (Mild erythema RLE, improving from line on skin) Neuro: Normal Speech, Cranial Nerves 3-12 NL Psych/Mental Status: Mental Status NL, Mood NL Hospital Course See final discharge diagnosis. Radiology Reviewed Date of Exam:10/13/22 CHEST 1 VIEW, AP/PA ONLY IMPRESSION: 1. No acute radiographic abnormality in the chest. Date of Exam:10/13/22 US VENOUS LOWER EXT RT IMPRESSION: No evidence of right lower extremity DVT. Discussion & Recommendations 67 yo DM female that presented with acute cellulitis to RLE. Started on IV antibiotics and erythema and pain improving. Blood sugars elevated during admission and medications were adjusted. Discharge Condition at discharge stable Instructions to patient/family Please see electronic discharge instructions given to patient. Discharge Medications Reviewed and agree with Discharge Medication list on patient's Discharge Instruction sheet Clinical Quality Measures DVT/VTE Risk/Contraindication: Contraindications-Mechi: Other *list below* Other: leg cellulitis Copy Copies To 1: REJI ROY MD, HOLLY R MD Oct 18, 2022 12:14
[2022-10-18] MEDS ORDERED: INSU100I32 SC (12:20)
[2022-10-18] MEDS ORDERED: AMLO-250 PO (12:20)
--- NOTE | 2022-10-18 12:21 | Discharge Summary ---
Discharge [facility] Reconcile Patient Problems Problems Reviewed?: Yes Discharge Medications New, Converted or Re-Newed RX: Transmitted to Pharmacy New Medications: Amlodipine Besylate (Amlodipine Besylate) 5 Mg Tablet 5 MG PO DAILY, #30 TAB Changed Medications: Insulin Degludec (Tresiba Flextouch U-100) 100 Unit/Ml (3 Ml) Insuln.pen 40 UNITS SC HS for 30 Days, #1 UNITS (Changed from: Insulin Degludec (Tresiba Flextouch U-100) 100 Unit/1 Ml Insuln.pen 60 Units SC HS) Continued Medications: Amoxicillin (Amoxicillin) 875 Mg Tablet 875-1750 MG PO BID, TAB TAKES 1-2 (875MG) TABLETS Bupropion HCl (Bupropion HCl Sr) 100 Mg Tablet.er 100 MG PO DAILY, TAB Doxycycline Hyclate (Doxycycline Hyclate) 100 Mg Tablet 100-200 MG PO BID, TAB TAKES 1-2 (100MG) TABLETS Dulaglutide (Trulicity) 3 Mg/0.5 Ml Pen.injctr 3 MG SQ TUESDAY, EA Fluconazole (Fluconazole) 150 Mg Tablet 150 MG PO WEEKLY, TAB Fluticasone Propionate (Flonase Allergy Relief) 50 Mcg/Actuation [place].susp 1 SPRAY NS DAILY PRN for CONGESTION, EACH Gabapentin (Gabapentin) 800 Mg Tablet 800 MG PO TID, TAB Glucosamine HCl/Chondr Bentley A Na (Osteo Bi-Flex Caplet) 1 Each Tablet 1 EACH PO DAILY, TAB Hydroxyzine HCl (Hydroxyzine HCl) 50 Mg Tablet 50 MG PO HS, TAB Insulin Aspart (Novolog Flexpen) 100 Unit/Ml (3 Ml) Solution 16 UNITS SC TIDPC, UNITS LAST FILLED 07/02/2022 #1 BOX L.acidoph & Paracasei,B.lactis (Probiotic) 1 Each Capsule 1 EACH PO DAILY, CAP Losartan Potassium (Losartan Potassium) 100 Mg Tablet 100 MG PO DAILY PRN for BLOOD PRESSURE, TAB Lutein (Lutein) 40 Mg Capsule 40 MG PO DAILY, CAP Multivitamin with Minerals (Multiple Vitamin) 1 Each Tablet 1 EACH PO DAILY, TAB Omeprazole (Omeprazole) 40 Mg Capsule.dr 40 MG PO DAILY PRN for HEARTBURN, CAP Tramadol HCl (Tramadol HCl) 50 Mg Tablet 50 MG PO Q6H PRN for PAIN-MODERATE (5-7), TAB Triamcinolone Acet (Triamcinolone Acetonide 0.1% Ointment) 0.1 % Oint 1 APPLIC TP DAILY PRN for ITCHING, APPLIC Vit A/C/E/Zinc/Co (Preservision Areds Softgel) 1 Cap Capsule 1 CAP PO DAILY, CAP Discontinued Medications: Ibuprofen (Ibuprofen) 200 Mg Capsule 400-600 MG PO Q8H PRN for PAIN-MILD (1-4), CAP Patient Instructions Goal/Follow Up Appt: 1-2 weeks with PCP Activity & Diet Discharge Diet: ADA Diet Activity as Tolerated: Yes REJI ROY MD Oct 18, 2022 12:21
[2022-10-18 16:03] VITALS: BP 160/81
[2022-10-18 17:45] VITALS: BP 160/81
--- NOTE | 2022-10-20 01:22 | Physician Query Clarification ---
PQ-Link Manifestation-Etiology Admission/Discharge Admission Date: Oct 13, 2022 at 16:42 Discharge Date: Oct 18, 2022 at 17:45 REJI Sharif MD The medical record reflects the following clinical scenario: History/Risk Factors: 67 y/o female patient has diabetes presents with right leg pain and redness,apparently suffered about wound on right foot. Hand P, 10/13: Right leg cellulitis failed oral antibiotics, diabetes, hypertension. Progress notes, 10/16: Cellulitis of right lower extremity, diabetic neuropathy, DM with hyperglycemia. Clinical Findings: WBC-12.3H, Glucose 328 H Treatment: Antibiotics, antifungal regimen, glucose regulation, diet home medications. Question: Can you specify if the cellulitis is due to/associated with diabetes? Please document a response in the Progress Note or Discharge Summary. 1. Yes - Cellulitis is due to/associated with diabetes. 2. No - Cellulitis is not due to/associated with diabetes. 3. Other, with explanation of the clinical findings. 4. Clinically undetermined, no explanation for the clinical findings. PHYSICIAN RESPONSE Manifestation due to/assoic: Yes In responding to this query, please exercise your independent professional judgment. The purpose of this communication is to more accurately reflect the complexity of your patients condition. The fact that a question is asked does not imply that any particular answer is desired or expected. Thank you for your timely response to this clarification. Requestors name: [ ] Phone # [ ] THIS PHYSICIAN QUERY FORM IS A PERMANENT PART OF THE MEDICAL RECORD MACKENZIE ALVA Oct 20, 2022 01:22 REJI ROY MD Nov 14, 2022 13:03
== END 2022-10-18 17:45 | disposition home or self-care (01) | DRG 638 ==
LOC: EDUNIT# 08:44 → ER 08:46 → 4TH 14:01 → OBSVTOIN 16:42
PROVIDERS: ADMIT Internal Medicine; ATTEND Family Medicine
DX: E11.628 Type 2 diabetes mellitus with other skin complications (principal); L03.115 Cellulitis of right lower limb; N39.0 Urinary tract infection, site not specified; E11.40 Type 2 diabetes mellitus with diabetic neuropathy, unspecified; E11.65 Type 2 diabetes mellitus with hyperglycemia; I10 Essential (primary) hypertension; K59.00 Constipation, unspecified; Z87.891 Personal history of nicotine dependence; J44.9 Chronic obstructive pulmonary disease, unspecified; K21.9 Gastro-esophageal reflux disease without esophagitis; M19.90 Unspecified osteoarthritis, unspecified site; F41.9 Anxiety disorder, unspecified; F32.A Depression, unspecified; F03.90 Unspecified dementia, unspecified severity, without behavioral disturbance, psychotic disturbance, mood disturbance, and anxiety; Z91.14 Patient's other noncompliance with medication regimen; E78.5 Hyperlipidemia, unspecified; Z79.4 Long term (current) use of insulin; Z79.899 Other long term (current) drug therapy; Z85.820 Personal history of malignant melanoma of skin; F90.9 Attention-deficit hyperactivity disorder, unspecified type; F98.8 Other specified behavioral and emotional disorders with onset usually occurring in childhood and adolescence; I87.8 Other specified disorders of veins
CPT/HCPCS: 36415; 71045; 80048; 80053; 82947; 83880; 85025; 85379; 86141; 94640; 96361; 96365; 96366; 96367; 96375

== ENCOUNTER 2023-02-08 11:41 | Inpatient (IN) | payer MEDICARE ==
[~2023-02-08] VITALS: Ht 165 cm; Wt 132.8 kg
[~2023-02-08 11:41] MED LIST changes: +BUPR-104 PO; +CLON0.5T4 PO; +DULA3PEN SQ; +FLUC150T41 PO; +FLUT9.9S NS; +GABA800T10 PO; +HYDR50TA76 PO; -INSU100I29 SQ; +INSU100I30 SQ; +RAME8TAB24 PO; +SUVO20TA2 PO; +TR1O15 TP; +TRAM50TA3 PO
--- NOTE | 2023-02-08 12:14 | ED General ---
General Chief Complaint: General Problems/Pain Stated Complaint: WEAKNESS | CELLULITIS Nursing Triage Note: PT TO [facility] 2 BY [facility] WITH CC OF CHELSEY ARITA, WOUND ON RT ANKLE FROM INJURY 01/08/23, FINISHED ABX ABOUT 4-5 DAYS AGO PHENERGAN 25 MG. BS ON SCENE 424 Source of Information: Patient Exam Limitations: No Limitations History of Present Illness Date Seen by Provider: Feb 08, 2023 Time Seen by Provider: 11:55 Initial Comments 5-year-old female presents to the ED via EMS for concerns of cellulitis, elevated blood sugars, weakness, difficulty walking, and falls. She states that she had cellulitis in her right lower leg in September and was admitted. She reports that she injured her right ankle a month ago. She developed cellulitis again. She was on clindamycin, which she finished 4 to 5 days ago. She states that it has gotten worse. She presents with redness to right lower leg, as well as a wound with yellow purulent drainage. She reports the pain is gotten worse, and she cannot walk due to weakness and the pain. She reports she had a fall yesterday. Denies fevers, chest pain. Reports shortness of breath, and nausea. She wears oxygen sometimes at night, she was placed on oxygen due to her oxygen and saturation going down to 87% on room air. Allergies and Home Medications Allergies Coded Allergies: exenatide (Unverified Allergy, Unknown, 03/24/22) methylphenidate (Unverified Allergy, Unknown, 03/24/22) morphine (Verified Adverse Reaction, Mild, NAUSEA, 05/19/16) sulfamethoxazole (Unverified Adverse Reaction, Unknown, 10/13/22) HALLUCINATIONS trimethoprim (Unverified Adverse Reaction, Unknown, 10/13/22) HALLUCINATIONS Patient Home Medication List Home Medication List Reviewed: Yes Amlodipine Besylate (Amlodipine Besylate) 5 Mg Tablet, 5 MG PO DAILY, (Reported) Entered as Reported by: PRASANTH TELLO on 02/09/23 1220 Last Action: Continued Bupropion HCl (Bupropion HCl Sr) 100 Mg Tablet.er, 100 MG PO DAILY, (Reported) Entered as Reported by: JUAN RAMON FELDMAN on 10/14/22 1321 Last Action: Continued Buspirone HCl (Buspirone HCl) 30 Mg Tablet, 30 MG PO BID, (Reported) Entered as Reported by: PRASANTH TELLO on 02/09/231219 Last Action: Converted Clonazepam (Clonazepam) 1 Mg Tablet, 1 MG PO TID PRN for ANXIETY, (Reported) Entered as Reported by: PRASANTH TELLO on 02/09/231219 Last Action: Reviewed Ergocalciferol (Vitamin D2) (Vitamin D2) 1,250 Mcg (32421 Unit) Capsule, 1,250 MCG PO WED,SAT, (Reported) Entered as Reported by: PRASANTH TELLO on 02/09/231219 Last Action: Reviewed Furosemide (Furosemide) 40 Mg Tablet, 40 MG PO DAILY, (Reported) Entered as Reported by: PRASANTH TELLO on 02/09/231219 Last Action: Reviewed Gabapentin (Gabapentin) 800 Mg Tablet, 800 MG PO TID, (Reported) Entered as Reported by: JUAN RAMON FELDMAN on 10/14/22 1321 Last Action: Converted Gabapentin (Gabapentin) 800 Mg Tablet, 1,200 MG PO HS, (Reported) Entered as Reported by: PRASANTH TELLO on 02/09/231219 Last Action: Reviewed Insulin Aspart (Novolog Flexpen) 100 Unit/Ml (3 Ml) Solution, 16 UNITS SC TIDAC, (Reported) Entered as Reported by: PRASANTH TELLO on 12/23/20 1614 Last Action: Reviewed Insulin Degludec (Tresiba Flextouch U-100) 100 Unit/Ml (3 Ml) Insuln.pen, 40 UNIT SQ HS, (Reported) Entered as Reported by: PRASANTH TELLO on 02/09/231219 Last Action: Reviewed Metformin HCl (Metformin HCl) 1,000 Mg Tablet, 1,000 MG PO BID, (Reported) Entered as Reported by: PRASANTH TELLO on 02/09/231219 Last Action: Reviewed Rosuvastatin Calcium (Rosuvastatin Calcium) 20 Mg Tablet, 20 MG PO DAILY, (Reported) Entered as Reported by: PRASANTH TELLO on 02/09/231219 Last Action: Continued Tirzepatide (Mounjaro) 2.5 Mg/0.5 Ml Pen.injctr, 2.5 MG SQ SAT, (Reported) Entered as Reported by: PRASANTH TELLO on 02/09/231219 Last Action: Reviewed Topiramate (Topiramate) 50 Mg Tablet, 50 MG PO DAILY, (Reported) Entered as Reported by: PRASANTH TELLO on 02/09/23 1220 Last Action: Converted Discontinued Medications Amlodipine Besylate (Amlodipine Besylate) 5 Mg Tablet, 5 MG PO DAILY Discontinued Reason: No Longer Taking Prescribed by: REJI ROY on 10/18/22 1220 Last Action: Discontinued Amoxicillin (Amoxicillin) 875 Mg Tablet, 875-1,750 MG PO BID, (Reported) Discontinued Reason: No Longer Taking Entered as Reported by: JUAN RAMON FELDMAN on 10/14/221320 Last Action: Discontinued Doxycycline Hyclate (Doxycycline Hyclate) 100 Mg Tablet, 100-200 MG PO BID, (Reported) Discontinued Reason: No Longer Taking Entered as Reported by: JUAN RAMON FELDMAN on 10/14/221320 Last Action: Discontinued Dulaglutide (Trulicity) 3 Mg/0.5 Ml Pen.injctr, 3 MG SQ TUESDAY, (Reported) Discontinued Reason: No Longer Taking Entered as Reported by: JUAN RAMON FELDMAN on 10/14/221320 Last Action: Discontinued Fluconazole (Fluconazole) 150 Mg Tablet, 150 MG PO WEEKLY, (Reported) Discontinued Reason: No Longer Taking Entered as Reported by: JUAN RAMON FELDMAN on 10/14/221320 Last Action: Discontinued Fluticasone Propionate (Flonase Allergy Relief) 50 Mcg/Actuation [place].susp, 1 SPRAY NS DAILY PRN for CONGESTION, (Reported) Discontinued Reason: No Longer Taking Entered as Reported by: JUAN RAMON FELDMAN on 10/14/221320 Last Action: Discontinued Glucosamine HCl/Chondr Bentley A Na (Osteo Bi-Flex Caplet) 1 Each Tablet, 1 EACH PO DAILY, (Reported) Discontinued Reason: No Longer Taking Entered as Reported by: ABEL FELDMAN on 08/07/20 1450 Last Action: Discontinued Hydroxyzine HCl (Hydroxyzine HCl) 50 Mg Tablet, 50 MG PO HS, (Reported) Discontinued Reason: No Longer Taking Entered as Reported by: JUAN RAMON FELDMAN on 10/14/221320 Last Action: Discontinued Insulin Degludec (Tresiba Flextouch U-100) 100 Unit/Ml (3 Ml) Insuln.pen, 40 UNITS SC HS Discontinued Reason: No Longer Taking Prescribed by: REJI ROY on 10/18/22 1220 Last Action: Discontinued L.acidoph & Paracasei,B.lactis (Probiotic) 1 Each Capsule, 1 EACH PO DAILY, (Reported) Discontinued Reason: No Longer Taking Entered as Reported by: ABEL FELDMAN on 08/07/201449 Last Action: Discontinued Losartan Potassium (Losartan Potassium) 100 Mg Tablet, 100 MG PO DAILY PRN for BLOOD PRESSURE, (Reported) Discontinued Reason: No Longer Taking Entered as Reported by: ABEL FELDMAN on 08/07/201449 Last Action: Discontinued Lutein (Lutein) 40 Mg Capsule, 40 MG PO DAILY, (Reported) Discontinued Reason: No Longer Taking Entered as Reported by: PRASANTH TELLO on 12/23/20 1618 Last Action: Discontinued Multivitamin with Minerals (Multiple Vitamin) 1 Each Tablet, 1 EACH PO DAILY, (Reported) Discontinued Reason: No Longer Taking Entered as Reported by: ABEL FELDMAN on 08/07/201449 Last Action: Discontinued Omeprazole (Omeprazole) 40 Mg Capsule.dr, 40 MG PO DAILY PRN for HEARTBURN, (Reported) Discontinued Reason: No Longer Taking Entered as Reported by: PRASANTH TELLO on 12/23/20 1614 Last Action: Discontinued Tramadol HCl (Tramadol HCl) 50 Mg Tablet, 50 MG PO Q6H PRN for PAIN-MODERATE (5- 7), (Reported) Discontinued Reason: No Longer Taking Entered as Reported by: JUAN RAMON FELDMAN on 10/14/22 1321 Last Action: Discontinued Triamcinolone Acet (Triamcinolone Acetonide 0.1% Ointment) 0.1 % Oint, 1 APPLIC TP DAILY PRN for ITCHING, (Reported) Discontinued Reason: No Longer Taking Entered as Reported by: JUAN RAMON FELDMAN on 10/14/22 1321 Last Action: Discontinued Vit A/C/E/Zinc/Co (Preservision Areds Softgel) 1 Cap Capsule, 1 CAP PO DAILY, (Reported) Discontinued Reason: No Longer Taking Entered as Reported by: ABEL FELDMAN on 08/07/201449 Last Action: Discontinued Review of Systems Review of Systems Constitutional: see HPI Past Xjuddnh-Rbyyje-Vqhdki Hx Patient Social History Tobacco Use?: No Substance use?: No Alcohol Use?: No Immunizations Up To Date Tetanus Booster (TDap): Unknown PED Vaccines UTD: No First/Initial COVID19 Vaccinat: 2020 Second COVID19 Vaccination Dae: 2020 Third COVID19 Vaccination Date: 07/2021 Seasonal Allergies Seasonal Allergies: Yes Past Medical History Surgery/Hospitalization HX: DIABETIC TYPE II, NEROPATHY, APPE, TRACI, C SECTION Surgeries: Yes Abdominal, Section, Hysterectomy, Orthopedic Respiratory: Yes COPD Currently Using CPAP: No Currently Using BIPAP: No Cardiac: Yes Hypertension Neurological: Yes Neuropathy 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 Disorders: No Female 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 Disorders: Denies [employer] History: Hysterectomy, Menopausal Sexually Transmitted Disease: No HIV/AIDS: No Genitourinary: No Gastrointestinal: Yes Gastroesophageal Reflux, Hiatal Hernia Musculoskeletal: Yes Arthritis Endocrine: Yes Diabetes, Insulin dep HEENT: Yes Cataract Loss of Vision: Bilateral Hearing Impairment: Hard of Hearing Cancer: Yes Melanoma Psychosocial: Yes Anxiety, Depression Integumentary: Yes (venous stasis) Psoriasis Blood Disorders: No Adverse Reaction/Blood Tranf: No Family Medical History AIDS Alcoholism Arthritis Asthma Cataracts Coronary thrombosis Diabetes mellitus Drug abuse Glaucoma Psychosocial problem Respiratory disorder No Family History of: [place]'s disease Alzheimer's disease Aphasia Cancer of mouth Cardiovascular disease Colon cancer Completed stroke Congenital disease Congenital heart disease Cystic fibrosis Deafness or hearing loss Dementia Dysphasia Fibrocystic disease of breast Gastroenteritis Headache disorder Hypercholesterolemia Hypertension Infertility Kidney disease Myocardial infarction Neoplasm Not obtainable due to adoption Osteoporosis Parkinson's disease Prostate cancer Seizure disorder Severe allergy Thyroid disease Tuberculosis Visual disorder Cancer, Diabetes, Hypertension Physical Exam Vital Signs Vital Signs - First Documented 02/08/23 11:44 Temp 36.9 Pulse 67 Resp 20 B/P (MAP) 195/102 (133) O2 Delivery Nasal Cannula O2 Flow Rate 3.00 Capillary Refill : Less Than 3 Seconds Height, Weight, BMI Height: 5'65.00" Weight: 252lbs. 14.0oz. 114.003496bp; 45.00 BMI Method:Stated General Appearance: No Apparent Distress, WD/WN Neck: Normal Inspection, Supple Respiratory: Lungs Clear, Normal Breath Sounds, No Accessory Muscle Use, No Respiratory Distress Cardiovascular: Regular Rate, Rhythm, No Edema, No Gallop, No Murmur, Normal Peripheral Pulses Extremity: No Pedal Edema, Other (Redness to bilateral lower extremities, worse on right, wound with yellow purulent drainage to right medial lower leg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: Alert, Normal Mood/Affect Skin: Normal Color, Warm/Dry Progress/Results/Core Measures Suspected Sepsis SIRS Temperature: Pulse: 67 Respiratory Rate: 20 Blood Pressure 195 /102 Mean: 133 Results/Orders My Orders Orders - PAVAN JORGE APRN Cbc With Automated Diff (02/08/23 12:07) Comprehensive Metabolic Panel (02/08/23 12:07) Blood Culture (02/08/23 12:07) Sputum Culture (02/08/23 12:07) Urinalysis (02/08/23 12:07) Urine Culture (02/08/23 12:07) Protime With Inr (02/08/23 12:07) Partial Thromboplastin Time (02/08/23 12:07) Chest 1 View, Ap/Pa Only (02/08/23 12:07) Ed Iv/Invasive Line Start (02/08/23 12:07) Vital Signs Adult Sepsis Patie Q15M (02/08/23 12:07) Remove Rings In Anticipation O (02/08/23 12:07) Lactic Acid Analyzer (02/08/23 12:07) Wound Culture (02/08/23 12:07) Vital Signs/I&O 02/08/23 11:44 Temp 36.9 Pulse 67 Resp 20 B/P (MAP) 195/102 (133) O2 Delivery Nasal Cannula O2 Flow Rate 3.00 Capillary Refill : Less Than 3 Seconds Blood Pressure Mean: 133 Progress Note : Progress Note Patient seen and evaluated, resting in bed, no acute distress. Based on exam and symptoms, septic work-up initiated including CBC, CMP, coags, lactic acid, blood cultures x2, chest x-ray, UA, sputum culture, wound culture. EMS already infusing 1 L of fluids. We will hold off on all or any other additional fluids at this time. 1330 labs reviewed. CBC grossly normal. CMP shows slightly decreased sodium and chloride, elevated glucose of 389. Coags normal. Chest x-ray reviewed. It shows borderline heart size and possible developing edema, but image is limited. US negative for DVT. CTA of chest ordered due to continued hypoxia with no current clear cause. 1500 UA shows 1+ protein, 3+ glucose, and trace ketones. CTA reviewed. Negative for pulmonary embolus. It shows elevated right hemidiaphragm with atelectasis and scarring in the lungs bilaterally and mild cardiomegaly. 1512 Dr. Roy, hospitalist, called for admission for hypoxia of unknown cause and cellulitis. She would like patient to have zosyn for the cellulitis. She would like me to place bridge orders. Diagnostic Imaging Diagonstic Imaging: Xray Plain Films/CT/US/NM/MRI: chest Comments [facility], [place] NAME: JANEEN MAC [facility] REC#: [id number] PT STATUS: REG ER : 1955 PHYSICIAN: PAVAN JORGE APRN ADMIT DATE: 02/08/23/ER Signed Date of Exam:02/08/23 CHEST 1 VIEW, AP/PA ONLY INDICATION: Shortness of air, weakness, nausea, and vomiting. Lower extremity wound. TECHNIQUE: Single view chest at 12:53 PM. CORRELATION STUDY: 10/13/2022. FINDINGS: The heart size, mediastinum, and vasculature appear slightly prominent. Limited depth of inspiration. There is atelectasis suggested at the right lung base. No infiltrate. IMPRESSION: Borderline heart size and vasculature which may reflect early edema but are also accentuated by the limited depth of inspiration. Dictated by: Dictated on workstation # [id number] Dict: 02/08/23 1300 Trans: 02/08/23 1450 [id number] Interpreted by: VIRGINIE RCANE DO Electronically signed by: VIRGINIE CRANE DO 02/08/23 1450 Diagonstic Imaging: Ultrasound Plain Films/CT/US/NM/MRI: leg Comments [facility] [place], [place] NAME: JANEEN MAC [facility] REC#: [id number] PT STATUS: REG ER : 1955 PHYSICIAN: PAVAN JORGE APRN ADMIT DATE: 02/08/23/ER Signed Date of Exam:02/08/23 US VENOUS LOWER EXT TOSHA PROCEDURE: US Venous Lower Ext Tosha. INDICATION: Lower extremity swelling. TECHNIQUE: Multiple real-time grayscale images were obtained over the bilateral lower extremities in various projections. Additional duplex Doppler and color Doppler images were also obtained. CORRELATION STUDY: None FINDINGS: Color and grayscale sonographic images demonstrate no intraluminal defect within the visualized portion of the common femoral, superficial femoral and/or popliteal veins to suggest thrombus formation. These vessels demonstrate normal response to compression and augmentation. No soft tissue fluid collection. IMPRESSION: 1. Negative for deep venous thrombosis of either leg. Dictated by: Dictated on workstation # [id number] Dict: 02/08/23 1433 Trans: 02/08/23 1434 DO [id number] Interpreted by: VIRGINIE CRANE DO Electronically signed by: VIRGINIE CRANE DO 02/08/23 143 Diagonstic Imaging: CT Plain Films/CT/US/NM/MRI: chest [facility] [place] [place] NAME: JANEEN MAC [facility] REC#: [id number] PT STATUS: ADM Kavin : 1955 PHYSICIAN: PAVAN JORGE APRN ADMIT DATE: 02/08/23 Signed Date of Exam:02/08/23 CT ANGIO CHEST W (R/O PE) History: Low oxygen saturation, weakness, nausea and vomiting, shortness of air TECHNIQUE: Axial CT angiogram of the chest was performed following intravenous menstruation of contrast timed for evaluation of the pulmonary arteries, with sagittal and coronal MIPS reformats. All CT scans use one or more of the following dose optimizing techniques: automated exposure control, MA and/or KvP adjustment based on patient size and exam type or iterative reconstruction. COMPARISON: Chest x-ray from 02/08/2023, CT from 10/06/2022 FINDINGS: The pulmonary arteries are diagnostic to the proximal segmental level. There is motion artifact on multiple images. No filling defects are seen to indicate a pulmonary embolus. The heart is mildly large. There is no pericardial effusion. There is a small amount of pericardial fluid. There are a few mildly prominent hilar lymph nodes bilaterally without significant enlargement. There is atelectasis in the dependent lungs and at the right lung base. There is no pleural effusion or pneumothorax. The aorta demonstrates atherosclerosis with no aneurysm seen. There are degenerative changes throughout the spine. There are postsurgical changes in the upper abdomen with anterior abdominal wall mesh noted. IMPRESSION: 1. No pulmonary embolus. 2. Elevated right hemidiaphragm with atelectasis and scarring in the lungs bilaterally. 3. Mild cardiomegaly. Dictated by: Dictated on workstation # [id number] Dict: 02/08/23 1433 Trans: 02/08/23 1732 [facility] [place] [id number] Interpreted by: JACQUELINE NIEVES MD Electronically signed by: JACQUELINE NIEVES MD 02/08/23 1732 Departure Communication (Admissions) Time/Spoke to Admitting Phy: 15:12 Dr. Roy, hospitalist, see progress note. Impression Primary Impression: Hypoxia Additional Impression: Cellulitis of right lower extremity Disposition: ADMITTED INPATIENT Condition: Stable Admissions Decision to Admit Reason: Admit from ER (General) Decision to Admit/Date: Feb 08, 2023 Time/Decision to Admit Time: 15:18 Departure-Patient Inst. Referrals: KAYLA GUTIERREZ MD (PCP/Family) Primary Care Physician Copy Copies To 1: KAYLA GUTIERREZ MD, BRITTANY R APRN Feb 08, 2023 12:14
[2023-02-08 12:17] LABS: BASOPHILS # (AUTO) 0.1 10^3/uL (0.0-0.1); BASOPHILS % (AUTO) 1 % (0-10); EOSINOPHILS # (AUTO) 0.2 10^3/uL (0.0-0.3); EOSINOPHILS % (AUTO) 3 % (0-10); HEMATOCRIT 44 % (35-52); HEMOGLOBIN 14.6 g/dL (11.5-16.0); LYMPHOCYTES # (AUTO) 1.2 10^3/uL (1.0-4.0); LYMPHOCYTES % (AUTO) 15 % (12-44); MEAN CORPUSCULAR HEMOGLOBIN 29 pg (25-34); MEAN CORPUSCULAR HGB CONC 34 g/dL (32-36); MEAN CORPUSCULAR VOLUME 87 fL (80-99); MEAN PLATELET VOLUME 10.3 fL (9.0-12.2); MONOCYTES # (AUTO) 0.5 10^3/uL (0.0-1.0); MONOCYTES % (AUTO) 6 % (0-12); NEUTROPHILS # (AUTO) 6.3 10^3/uL (1.8-7.8); NEUTROPHILS % (AUTO) 75 % (42-75); PLATELET COUNT 222 10^3/uL (130-400); WHITE BLOOD COUNT 8.3 10^3/uL (4.3-11.0)
[2023-02-08 12:22] LABS: ALBUMIN 3.2 GM/DL (3.2-4.5); POTASSIUM 4.4 MMOL/L (3.6-5.0)
[2023-02-08 12:23] LABS: CALCIUM 8.5 MG/DL (8.5-10.1)
[2023-02-08 12:24] LABS: TOTAL PROTEIN 6.3 GM/DL (6.4-8.2)
[2023-02-08 12:26] LABS: BILIRUBIN,TOTAL 0.5 MG/DL (0.1-1.0)
[2023-02-08 12:28] LABS: CREATININE SERUM 0.83 MG/DL (0.60-1.30)
[2023-02-08 12:45] LABS: INR 1.1 (0.8-1.4); PROTHROMBIN TIME PATIENT 14.9 SEC (12.2-14.7)
--- NOTE | 2023-02-08 13:11 | Diagnostic Imaging Report ---
INDICATION: Shortness of air, weakness, nausea, and vomiting. Lower extremity wound. TECHNIQUE: Single view chest at 12:53 PM. CORRELATION STUDY: 10/13/2022. FINDINGS: The heart size, mediastinum, and vasculature appear slightly prominent. Limited depth of inspiration. There is atelectasis suggested at the right lung base. No infiltrate. IMPRESSION: Borderline heart size and vasculature which may reflect early edema but are also accentuated by the limited depth of inspiration. Dictated by: Dictated on workstation # [id number]
[2023-02-08] MEDS ORDERED: IOHEXOL 350 MG/ML 100 ML (OMNIPAQUE 350) VIAL IV ONE (13:45)
[2023-02-08] MEDS ORDERED: NS 100 ML (IVPB) BAG IV ONE (13:45)
[2023-02-08 14:20] LABS: BILIRUBIN,URINE NEGATIVE (NEGATIVE); CLARITY,URINE CLEAR; COLOR,URINE YELLOW; GLUCOSE, URINE (UA) 3+ (NEGATIVE); KETONES,URINE TRACE (NEGATIVE); LEUKOCYTE ESTERASE ,URINE NEGATIVE (NEGATIVE); NITRITE,URINE NEGATIVE (NEGATIVE); PH,URINE 7.5 (5-9); PROTEIN,URINE 1+ (NEGATIVE)
[2023-02-08 14:30] LABS: BACTERIA,URINE TRACE /HPF; SQUAMOUS EPITHELIAL CELL,UR RARE /HPF
--- NOTE | 2023-02-08 14:35 | Diagnostic Imaging Report ---
PROCEDURE: US Venous Lower Ext Bautista. INDICATION: Lower extremity swelling. TECHNIQUE: Multiple real-time grayscale images were obtained over the bilateral lower extremities in various projections. Additional duplex Doppler and color Doppler images were also obtained. CORRELATION STUDY: None FINDINGS: Color and grayscale sonographic images demonstrate no intraluminal defect within the visualized portion of the common femoral, superficial femoral and/or popliteal veins to suggest thrombus formation. These vessels demonstrate normal response to compression and augmentation. No soft tissue fluid collection. IMPRESSION: 1. Negative for deep venous thrombosis of either leg. Dictated by: Dictated on workstation # [id number]
--- NOTE | 2023-02-08 14:45 | Diagnostic Imaging Report ---
History: Low oxygen saturation, weakness, nausea and vomiting, shortness of air TECHNIQUE: Axial CT angiogram of the chest was performed following intravenous menstruation of contrast timed for evaluation of the pulmonary arteries, with sagittal and coronal MIPS reformats. All CT scans use one or more of the following dose optimizing techniques: automated exposure control, MA and/or KvP adjustment based on patient size and exam type or iterative reconstruction. COMPARISON: Chest x-ray from 02/08/2023, CT from 10/06/2022 FINDINGS: The pulmonary arteries are diagnostic to the proximal segmental level. There is motion artifact on multiple images. No filling defects are seen to indicate a pulmonary embolus. The heart is mildly large. There is no pericardial effusion. There is a small amount of pericardial fluid. There are a few mildly prominent hilar lymph nodes bilaterally without significant enlargement. There is atelectasis in the dependent lungs and at the right lung base. There is no pleural effusion or pneumothorax. The aorta demonstrates atherosclerosis with no aneurysm seen. There are degenerative changes throughout the spine. There are postsurgical changes in the upper abdomen with anterior abdominal wall mesh noted. IMPRESSION: 1. No pulmonary embolus. 2. Elevated right hemidiaphragm with atelectasis and scarring in the lungs bilaterally. 3. Mild cardiomegaly. Dictated by: Dictated on workstation # [id number]
[2023-02-08] MEDS ORDERED: PIPERACILLIN SODIUM/TAZOBACTAM 4.5 GM in NS (IVPB) 100 ML IV ONE (15:30)
[2023-02-08 17:01] VITALS: BP 195/102
[2023-02-08 17:02] VITALS: BP 168/79
[2023-02-08 17:03] VITALS: BP 168/79
[2023-02-08] MEDS ORDERED: RT-ALBUTEROL/IPRATROPIUM 3 ML (DUONEB) VIAL INH PRN (17:15)
[2023-02-08] MEDS: NS IV 1000 ML 1,000 ML IV SCH (18:32)
[2023-02-08 19:54] VITALS: BP 175/93
[2023-02-08] MEDS ORDERED: inSUlin ASPART (NovoLOG) 1 UNIT/0.01 ML (CHARGE PER UNIT) ONE (20:46)
[2023-02-08] MEDS: ACETAMINOPHEN 500 MG TAB (TYLENOL) PO PRN (20:51)
[2023-02-08] MEDS: inSUlin ASPART (NovoLOG) 1 UNIT/0.01 ML (CHARGE PER UNIT) SC SCH (20:51)
[2023-02-08 23:13] VITALS: BP 157/80
[2023-02-09 03:39] VITALS: BP 150/74
[2023-02-09] MEDS: ACETAMINOPHEN 500 MG TAB (TYLENOL) PO PRN ×2 (04:44→15:25)
[2023-02-09] MEDS: inSUlin ASPART (NovoLOG) 1 UNIT/0.01 ML (CHARGE PER UNIT) SC SCH ×4 (06:05→22:42)
[2023-02-09 07:43] VITALS: BP 149/70
[2023-02-09] MEDS: NS IV 1000 ML 1,000 ML IV SCH ×2 (08:18→20:09)
[2023-02-09] MEDS: ONDANSETRON 4 MG/2 ML (SDV) Z0FRAN IV PRN ×2 (10:15→15:29)
[2023-02-09] MEDS: fentaNYL INJ 100 MCG/2 ML AMP IV PRN ×5 (10:15→22:41)
[2023-02-09] MEDS ORDERED: VANCOMYCIN INJECTION 0.1 MG in NS (IVPB) 250 ML IV SCH (10:30)
[2023-02-09] MEDS: cefTRIAXone IV/IM 1,000 MG in NS (IVPB) 50 ML IV SCH (10:41)
[2023-02-09] MEDS ORDERED: VANCOMYCIN 2000 MG/NS 500 ML IVPB IV ONE ×2 (11:00)
[2023-02-09 11:59] VITALS: BP 167/76
[2023-02-09] MEDS ORDERED: AMLO-250 PO (12:20)
[2023-02-09] MEDS ORDERED: METF-399 PO (12:20)
[2023-02-09] MEDS ORDERED: INSU100I32 SQ (12:20)
[2023-02-09] MEDS ORDERED: ERGO1250 PO (12:20)
[2023-02-09] MEDS ORDERED: CLON1TAB13 PO (12:20)
[2023-02-09] MEDS ORDERED: GABA800T10 PO (12:20)
[2023-02-09] MEDS ORDERED: TOPI-241 PO (12:20)
[2023-02-09] MEDS ORDERED: BUSP30TA2 PO (12:20)
[2023-02-09] MEDS ORDERED: TIRZ2.5P SQ (12:20)
[2023-02-09] MEDS ORDERED: FURO40TA4 PO (12:20)
[2023-02-09] MEDS ORDERED: ROSU20TA32 PO (12:20)
--- NOTE | 2023-02-09 13:48 | History & Physical ---
HPI History of Present Illness: 68 yo F well known to me that presents with concerns for cellulits and weakness and has noticed that her blood sugars have been trending up. States that she was admitted in [facility] for cellulitis and had seen her PCP last week and just completed a course of antibiotics 2-3 days ago. She denies missing any of her medications but she has a h/o not taking meds appropriately. States that she twisted her ankle about a month ago and since then she has been having more problems with falling. She does not remember her last A1c. States that her blood pressure has been going up and down. This AM she is having some pain in her LLE and RUE from the IV. Source: patient Exam Limitations: no limitations Date seen by provider: Feb 09, 2023 Time Seen by Provider: 11:15 Attending Physician Zeenat Hubbard MD PCP Admitting Physician: Reji Mendes MD Attending Physician: Reji Mendes MD Consult Date of Admission Feb 08, 2023 at 16:43 Home Medications Home Medications Reviewed patient Home Medication Reconciliation performed by pharmacy medication reconciliations windows laptop technician and/or nursing. Patients Allergies have been reviewed. Allergies Coded Allergies: exenatide (Unverified Allergy, Unknown, 03/24/22) methylphenidate (Unverified Allergy, Unknown, 03/24/22) morphine (Verified Adverse Reaction, Mild, NAUSEA, 05/19/16) sulfamethoxazole (Unverified Adverse Reaction, Unknown, 10/13/22) HALLUCINATIONS trimethoprim (Unverified Adverse Reaction, Unknown, 10/13/22) HALLUCINATIONS JAH-[id number]-Xnljrg Hx Patient Social History Living Status: Lives at home independently Drug of Choice: PT DENIES Smoking Status: Former Smoker 2nd Hand Smoke Exposure: Yes Recent Hopitalizations: No Alcohol Use?: No Have you traveled recently?: No Immunizations Up To Date Tetanus Booster (TDap): Unknown First/Initial COVID19 Vaccinat: 2020 Second COVID19 Vaccination Dae: 2020 Third COVID19 Vaccination Date: 07/2021 Past Medical History IDDM HTN COPD Tobacco USE Arthritis GERD Dementia Psoriasis Anxiety Depression Alcohol Abuse Medical Noncompliance Frequent Falls Family Medical History Significant Family History: Cancer, Diabetes, Hypertension Family History: AIDS Alcoholism Arthritis Asthma Cataracts Coronary thrombosis Diabetes mellitus Drug abuse Glaucoma Psychosocial problem Respiratory disorder No Family History of: Clarkson's disease Alzheimer's disease Aphasia Cancer of mouth Cardiovascular disease Colon cancer Completed stroke Congenital disease Congenital heart disease Cystic fibrosis Deafness or hearing loss Dementia Dysphasia Fibrocystic disease of breast Gastroenteritis Headache disorder Hypercholesterolemia Hypertension Infertility Kidney disease Myocardial infarction Neoplasm Not obtainable due to adoption Osteoporosis Parkinson's disease Prostate cancer Seizure disorder Severe allergy Thyroid disease Tuberculosis Visual disorder Review of Systems ([facility]) Constitutional: No chills, No fever; malaise, weakness EENTM: no symptoms reported; No eye pain, No nose congestion, No throat pain Respiratory: no symptoms reported; No cough, No dyspnea on exertion, No short of breath Cardiovascular: No chest pain; edema; No palpitations Gastrointestinal: no symptoms reported; No abdominal pain, No constipation, No diarrhea, No nausea, No vomiting Genitourinary: No dysuria; frequency; No hematuria Musculoskeletal: back pain Skin: rash Psychiatric/Neurological: Numbness, Weakness Reviewed Test Results Reviewed Test Results Lab Laboratory Tests Test 02/08/23 14:00 02/08/23 20:10 02/09/23 04:53 02/09/23 11:48 Range/Units Urine Color YELLOW Urine Clarity CLEAR Urine pH 7.5 5-9 Urine Specific [place] <=1.005 1.016-1.022 Urine Protein 1+ H NEGATIVE Urine Glucose (UA) 3+ H NEGATIVE Urine Ketones TRACE H NEGATIVE Urine Nitrite NEGATIVE NEGATIVE Urine Bilirubin NEGATIVE NEGATIVE Urine Urobilinogen 1.0 < = 1.0 MG/DL Urine Leukocyte Esterase NEGATIVE NEGATIVE Urine RBC (Auto) NEGATIVE NEGATIVE Urine RBC NONE /HPF Urine WBC NONE /HPF Urine Squamous Epithelial Cells RARE /HPF Urine Crystals NONE /LPF Urine Bacteria TRACE /HPF Urine Casts NONE /LPF Urine Mucus NEGATIVE /LPF Urine Culture Indicated CULTURE PENDING Glucometer 352 H 310 H 338 H 70-110 MG/DL Physical Exam-([facility]) Physical Exam Vital Signs VS - Last 72 Hours, by Label 02/08/23 02/08/23 02/08/23 02/08/23 11:44 16:26 17:01 17:02 Temp 36.9 36.9 36.9 36.8 Pulse 67 74 67 67 Resp 20 20 20 B/P (MAP) 195/102 (133) 162/81 168/79 (108) Pulse Ox 96 96 O2 Delivery Nasal Cannula Nasal Cannula Nasal Cannula O2 Flow Rate 3.00 3.00 3.00 3.00 402/08/23 02/08/23 02/08/23 17:03 17:16 19:00 19:05 Temp 36.8 Pulse 67 63 63 Resp 20 B/P (MAP) 168/79 (108) Pulse Ox 96 O2 Delivery Nasal Cannula Nasal Cannula O2 Flow Rate 3.00 3.00 02/08/23 02/08/23 02/08/23 02/09/23 19:54 20:00 23:13 01:00 Temp 37.1 36.9 Pulse 71 63 64 Resp 20 20 B/P (MAP) 175/93 (120) 157/80 (105) Pulse Ox 96 96 O2 Delivery Nasal Cannula Nasal Cannula Nasal Cannula O2 Flow Rate 3.00 3.00 3.00 2.00 02/09/23 02/09/23 02/09/23 02/09/23 03:39 07:28 07:43 08:23 Temp 36.4 36.4 Pulse 66 65 67 Resp 20 18 B/P (MAP) 150/74 (99) 149/70 (96) Pulse Ox 94 94 96 O2 Delivery Nasal Cannula Nasal Cannula Nasal Cannula O2 Flow Rate 2.00 2.00 2.00 2.00 02/09/23 11:59 Temp 37.0 Pulse 66 Resp 18 B/P (MAP) 167/76 (106) Pulse Ox 96 O2 Delivery Nasal Cannula O2 Flow Rate 2.00 Capillary Refill : Less Than 3 Seconds General Appearance: WD/WN, no apparent distress, obese HEENT: PERRL/EOMI Neck: non-tender, full range of motion, supple Respiratory: chest non-tender, lungs clear, no respiratory distress, no accessory muscle use Cardiovascular: normal peripheral pulses, regular rate, rhythm, no murmur Gastrointestinal: normal bowel sounds, non tender, soft Back: no CVA tenderness, no vertebral tenderness Extremities: normal range of motion, normal capillary refill, pedal edema (2+ pitting edema bilaterally), other (chronic venouse stasis changes, RUE with brusing from EMS IV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: box spring maker II-XII nml as tested, alert, normal mood/affect, oriented x 3 Skin: warm/dry, other (erythema LE bilaterally R>L, mild ttp) Lymphatic: no adenopathy Assessment/Plan Assessment/Plan Admission Status: Observation (1) Cellulitis of right lower extremity Status: Acute Assessment & Plan: - Continue IV antibiotics, elevate legs, d/c IVFs (2) Hypertension Status: Chronic Assessment & Plan: - Continue home meds Qualifiers: Qualified Codes: I10 - Essential (primary) hypertension (3) Type 2 diabetes mellitus, with long-term current use of insulin Status: Chronic Assessment & Plan: - SSI, accuchecks ACHS Qualifiers: Qualified Codes: E11.65 - Type 2 diabetes mellitus with hyperglycemia; Z79.4 - 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
[2023-02-09 15:47] VITALS: BP 140/80
[2023-02-09 19:25] VITALS: BP 168/77
[2023-02-09] MEDS: busPIRone 15 MG (BUSPAR) TABLET PO SCH (20:09)
[2023-02-09] MEDS: GABAPENTIN 400 MG (NEURONTIN) CAP PO SCH (20:10)
[2023-02-09] MEDS ORDERED: NON-FORMULARY MEDICATION 1 EA EA (Buspirone HCl 30 MG) PO SCH (21:00)
[2023-02-09] MEDS ORDERED: NON-FORMULARY MEDICATION 1 EA EA (Gabapentin 800 MG) PO SCH (21:00)
[2023-02-09] MEDS ORDERED: VANCOMYCIN 1500MG/300ML PREMIX IV SCH (23:00)
[2023-02-09 23:14] VITALS: BP 160/74
[2023-02-10] VITALS (7 sets, daily range): BP systolic 140–175; BP diastolic 64–90
[2023-02-10] MEDS: fentaNYL INJ 100 MCG/2 ML AMP IV PRN ×2 (02:31→08:33)
[2023-02-10] MEDS: inSUlin ASPART (NovoLOG) 1 UNIT/0.01 ML (CHARGE PER UNIT) SC SCH ×4 (05:47→21:29)
[2023-02-10 05:54] LABS: BASOPHILS % (AUTO) 0 % (0-10); EOSINOPHILS # (AUTO) 0.3 10^3/uL (0.0-0.3); EOSINOPHILS % (AUTO) 3 % (0-10); HEMATOCRIT 45 % (35-52); HEMOGLOBIN 14.2 g/dL (11.5-16.0); LYMPHOCYTES # (AUTO) 1.3 10^3/uL (1.0-4.0); LYMPHOCYTES % (AUTO) 15 % (12-44); MEAN CORPUSCULAR HEMOGLOBIN 29 pg (25-34); MEAN CORPUSCULAR HGB CONC 32 g/dL (32-36); MEAN CORPUSCULAR VOLUME 90 fL (80-99); MEAN PLATELET VOLUME 9.4 fL (9.0-12.2); MONOCYTES # (AUTO) 0.7 10^3/uL (0.0-1.0); MONOCYTES % (AUTO) 8 % (0-12); NEUTROPHILS # (AUTO) 6.7 10^3/uL (1.8-7.8); NEUTROPHILS % (AUTO) 74 % (42-75); PLATELET COUNT 164 10^3/uL (130-400); WHITE BLOOD COUNT 9.1 10^3/uL (4.3-11.0)
[2023-02-10 06:15] LABS: BILIRUBIN,TOTAL 0.4 MG/DL (0.1-1.0); CALCIUM 8.6 MG/DL (8.5-10.1); CREATININE SERUM 0.87 MG/DL (0.60-1.30); POTASSIUM 4.3 MMOL/L (3.6-5.0)
[2023-02-10] MEDS: NS IV 1000 ML 1,000 ML IV SCH (08:00)
[2023-02-10] MEDS: busPIRone 15 MG (BUSPAR) TABLET PO SCH ×2 (08:32→20:01)
[2023-02-10] MEDS: buPROPion SR 100 MG (WELLBUTRIN SR) TAB PO SCH (08:32)
[2023-02-10] MEDS: ROSUVASTATIN 20 MG (CRESTOR) TABLET PO SCH (08:33)
[2023-02-10] MEDS: amLODIPine 5 MG (NORVASC) TAB PO SCH (08:33)
[2023-02-10] MEDS: GABAPENTIN 400 MG (NEURONTIN) CAP PO SCH ×3 (08:33→20:01)
[2023-02-10] MEDS: toPIRamate 25 MG (TOPAMAX) TAB PO SCH (08:33)
[2023-02-10] MEDS ORDERED: NON-FORMULARY MEDICATION 1 EA EA (Topiramate 50 MG) PO SCH (09:00)
--- NOTE | 2023-02-10 10:32 | Physical Therapy Progress Note ---
Therapy Progress Note Patient adamantly declined PT on this date. RN notified. Will attempt tomorrow. 1 ref CAILIN COLEY PT Feb 10, 2023 10:32
[2023-02-10] MEDS: ACETAMINOPHEN 500 MG TAB (TYLENOL) PO PRN ×2 (11:24→22:19)
[2023-02-10] MEDS: ONDANSETRON 4 MG/2 ML (SDV) Z0FRAN IV PRN (11:24)
[2023-02-10] MEDS: cefTRIAXone IV/IM 1,000 MG in NS (IVPB) 50 ML IV SCH (11:24)
--- NOTE | 2023-02-10 14:46 | Progress Note ---
Subjective Subjective/Events-last exam Patient states that she feels better but she has not been up and out of bed yet. Tolerating PO diet. Review of Systems General: Fatigue Pulmonary: Dyspnea; No Cough Cardiovascular: Edema; No: Chest Pain, Palpitations Gastrointestinal: No: Nausea, Vomiting, Abdominal Pain, Diarrhea, Constipation Neurological: Weakness, Incoordination Focused Exam Lactate Level 02/08/23 12:20: Lactic Acid Level 1.38 Objective Exam Last Set of Vital Signs Vital Signs Date Time Temp Pulse Resp B/P (MAP) Pulse Ox O2 Delivery O2 Flow Rate FiO2 02/10/23 14:35 37.1 70 24 140/65 (90) 92 Nasal Cannula 4.00 Capillary Refill : Less Than 3 Seconds I&O Intake and Output 02/10/23 00:00 Intake Total 3760 ml Output Total 2450 ml Balance 1310 ml Intake Oral 2460 ml IV Total 1300 ml Output Urine Total 2450 ml General: Alert, Oriented X3, No Acute Distress Lungs: Clear to Auscultation, Normal Air Movement Heart: Regular Rate, No Murmurs Abdomen: Normal Bowel Sounds, Soft, No Tenderness, No Masses Extremities: Other (Chronic venous stasis changes, erythema improving, 1+ pitting edema bilaterally) Neuro: Normal Speech Results/Procedures Lab Laboratory Tests 02/09/23 16:01: Glucometer 370H 02/09/23 20:22: Glucometer 348H 02/10/23 05:43: Glucometer 272H 02/10/23 05:45: White Blood Count 9.1, Red Blood Count 4.95, Hemoglobin 14.2, Hematocrit 45, Mean Corpuscular Volume 90, Mean Corpuscular Hemoglobin 29, Mean Corpuscular Hemoglobin Concent 32, Red Cell Distribution Width 15.4H, Platelet Count 164, Mean Platelet Volume 9.4, Immature Granulocyte % (Auto) 0, Neutrophils (%) (Auto) 74, Lymphocytes (%) (Auto) 15, Monocytes (%) (Auto) 8, Eosinophils (%) (Auto) 3, Basophils (%) (Auto) 0, Neutrophils # (Auto) 6.7, Lymphocytes # (Auto) 1.3, Monocytes # (Auto) 0.7, Eosinophils # (Auto) 0.3, Basophils # (Auto) 0.0, Immature Granulocyte # (Auto) 0.0, Sodium Level 135, Potassium Level 4.3, Chloride Level 100, Carbon Dioxide Level 28, Anion Gap 7, Blood Urea Nitrogen 10, Creatinine 0.87, Estimat Glomerular Filtration Rate 72, BUN/Creatinine Ratio 11, Glucose Level 288H, Calcium Level 8.6, Corrected Calcium 9.4, Total Bilirubin 0.4, Aspartate Amino Transf (AST/SGOT) 10, Alanine Aminotransferase (ALT/SGPT) 14, Alkaline Phosphatase 111, Total Protein 6.0L, Albumin 3.0L 02/10/23 11:43: Glucometer 339H 02/10/23 14:29: Glucometer 300H Microbiology 02/09/23 MRSA Screen - Final, Complete MRSA not isolated 02/08/23 Urine Culture - Final, Complete NO GROWTH 02/08/23 Blood Culture - Preliminary, Resulted No growth 02/08/23 Gram Stain - Final, Resulted 02/08/23 Wound Culture - Preliminary, Resulted Mixed Bacterial [place] Assessment/Plan Assessment/Plan (1) Cellulitis of right lower extremity Status: Acute Assessment & Plan: - Continue IV antibiotics, elevate legs, d/c IVFs (2) Hypertension Status: Chronic Assessment & Plan: - Continue home meds Qualifiers: Qualified Codes: I10 - Essential (primary) hypertension (3) Type 2 diabetes mellitus, with long-term current use of insulin Status: Chronic Assessment & Plan: - SSI, accuchecks ACHS Qualifiers: Qualified Codes: E11.65 - Type 2 diabetes mellitus with hyperglycemia; 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
[2023-02-10] MEDS: MICONAZOLE 2% POWDER (DESENEX AF) 90 GM TOP SCH (20:02)
[2023-02-10] MEDS: KETOROLAC 30 MG/ML VIAL IVP PRN (20:05)
[2023-02-10] MEDS ORDERED: TROUGH ORDER-PHARMACY XX ONE (22:00)
[2023-02-11 04:40] VITALS: BP 129/60
[2023-02-11 05:30] LABS: BASOPHILS % (AUTO) 1 % (0-10); EOSINOPHILS # (AUTO) 0.4 10^3/uL (0.0-0.3); EOSINOPHILS % (AUTO) 5 % (0-10); HEMATOCRIT 41 % (35-52); LYMPHOCYTES # (AUTO) 1.5 10^3/uL (1.0-4.0); LYMPHOCYTES % (AUTO) 18 % (12-44); MEAN CORPUSCULAR HEMOGLOBIN 29 pg (25-34); MEAN CORPUSCULAR HGB CONC 32 g/dL (32-36); MEAN CORPUSCULAR VOLUME 90 fL (80-99); MEAN PLATELET VOLUME 9.3 fL (9.0-12.2); MONOCYTES # (AUTO) 0.7 10^3/uL (0.0-1.0); MONOCYTES % (AUTO) 8 % (0-12); NEUTROPHILS # (AUTO) 5.7 10^3/uL (1.8-7.8); NEUTROPHILS % (AUTO) 68 % (42-75); PLATELET COUNT 157 10^3/uL (130-400); WHITE BLOOD COUNT 8.3 10^3/uL (4.3-11.0)
[2023-02-11 05:55] LABS: ALBUMIN 2.8 GM/DL (3.2-4.5); BILIRUBIN,TOTAL 0.3 MG/DL (0.1-1.0); CALCIUM 8.5 MG/DL (8.5-10.1); CREATININE SERUM 0.86 MG/DL (0.60-1.30); POTASSIUM 4.3 MMOL/L (3.6-5.0); TOTAL PROTEIN 5.5 GM/DL (6.4-8.2)
[2023-02-11] MEDS: inSUlin ASPART (NovoLOG) 1 UNIT/0.01 ML (CHARGE PER UNIT) SC SCH ×4 (06:09→21:04)
[2023-02-11 07:24] VITALS: BP 149/80
[2023-02-11] MEDS: toPIRamate 25 MG (TOPAMAX) TAB PO SCH (08:25)
[2023-02-11] MEDS: buPROPion SR 100 MG (WELLBUTRIN SR) TAB PO SCH (08:25)
[2023-02-11] MEDS: MICONAZOLE 2% POWDER (DESENEX AF) 90 GM TOP SCH ×2 (08:25→20:37)
[2023-02-11] MEDS: GABAPENTIN 400 MG (NEURONTIN) CAP PO SCH ×3 (08:25→20:37)
[2023-02-11] MEDS: busPIRone 15 MG (BUSPAR) TABLET PO SCH ×2 (08:25→20:37)
[2023-02-11] MEDS: ROSUVASTATIN 20 MG (CRESTOR) TABLET PO SCH (08:25)
[2023-02-11] MEDS: amLODIPine 5 MG (NORVASC) TAB PO SCH (08:25)
[2023-02-11] MEDS: ACETAMINOPHEN 500 MG TAB (TYLENOL) PO PRN ×2 (09:46→18:07)
--- NOTE | 2023-02-11 10:28 | Physical Therapy Evaluation ---
PT Evaluation-General Medical Diagnosis Admission Date Feb 08, 2023 at 16:43 Medical Diagnosis: cellulitis right LE Onset Date: Feb 08, 2023 Therapy Diagnosis Therapy Diagnosis: debility/weakness Height/Weight Height (Feet): 5 Height (Inches): 65.00 Weight (Pounds): 252 Weight (Ounces): 14.0 Precautions Precautions/Isolations: Fall Prevention, Standard Precautions Referral Physician: Vaughn Reason for Referral: Evaluation/Treatment Medical History Pertinent Medical History: Alcoholism, Arthritis, COPD, DM, GERD, HTN, Neuropathy, Smoking Current History EMS secondary to weakness, N/V, right ankle wound and multiple falls Reviewed History: Yes Social History Home: Apartment Current Living Status: ex Prior Prior Level of Function SCALE: Activities may be completed with or without assistive devices. 4-Cstuxsbris-whfbrrp completes the activity by him/herself with no assistance from a helper. 5-Set-up or Clean-up Assistance-helper sets up or cleans up; patient completes activity. [place] assists only prior to or following the activity. 4-Supervision or Touching Assistance-helper provides verbal cues and/or touching/steadying and/or contact guard assistance as patient completes activity. Assistance may be provided throughout the activity or intermittently. 3-Partial/Moderate Assistance-helper does LESS THAN HALF the effort. [place] lifts, holds or supports trunk or limbs, but provides less than half the effort. 2-Substantial/Maximal Assistance-helper does MORE THAN HALF the effort. [place] lifts or holds trunk or limbs and provides more than half the effort. 6-Glzgamist-ywycuo does ALL the effort. Patient does none of the effort to complete the activity. Or, the assistance of 2 or more helpers is required for the patient to complete the activity. If activity was not attempted, code reason: 7-Patient Refused. 9-Not Applicable-not attempted and the patient did not perform the activity before the current illness, exacerbation or injury. 10-Not Attempted due to Environmental Limitations-(lack of equipment, weather restraints, etc.). 88-Not Attempted due to Medical Conditions or Safety Concerns. Bed Mobility: 6 Transfers (B,C,W/C): 6 Gait: 6 Stairs: 9 Indoor Mobility (Ambulation): Independent Stairs: Not Applicalbe Prior Devices Use: Walker PT Evaluation-Current Subjective Patient agrees to PT. Objective Patient Orientation: Normal For Age Attachments: Oxygen, Hopper Catheter ROM/Strength ROM Lower Extremities bilateral LE WFL Strength Lower Extremities 3+/5 grossly bilateral LE all planes Integumentary/Posture Integumentary refer to nursing notes Bladder Incontinence: Hopper Cath Posture WFL Neuromuscular (Tone, Coordination, Reflexes) grossly intact Sensory Vision: Wears Glasses Hearing: Functional Transfers Lying to Sitting/Side of Bed(Q: 3 Sit to Stand (QC): 4 Chair/Mko-sg-Rkspw Xfer(QC): 4 Gait Mode of Locomotion: Walk Anticipated Mode of Locomotion: Walk Walk 10 feet (QC): 4 Walk 50 ft with 2 Turns(QC): 4 Walk 150 ft (QC): 4 Distance: 150' Gait Assistive Device: FWW Comments/Gait Description slow, steady gait sequence Balance Sitting Static: Normal Sitting Dynamic: Normal Standing Static: Fair Standing Dynamic: Fair Assessment/Needs Patient will benefit from skilled PT to address functional strength and mobility to improve current LOF to safely return to home at maximum LOF. Rehab Potential: Fair PT Correction Goals Correction Goals PT Correction Goals Time Frame: Feb 26, 2023 Roll Left & Right (QC): 6 Sit to Lying (QC): 6 Lying-Sitting on Side/Bed(QC): 6 Sit to Stand (QC): 6 Chair/Kty-zo-Wtlev Xfer(QC): 6 Toilet Transfer (QC): 6 Does the Patient Walk: Yes Walk 10 feet (QC): 5 Walk 50ft with 2 Turns (QC): 5 Walk 150 ft (QC): 5 PT Plan Problem List Problem List: Activity Tolerance, Functional Strength, Safety, Balance, Gait, Transfer, Bed Mobility Treatment/Plan Treatment Plan: Continue Plan of Care Treatment Plan: Bed Mobility, Education, Functional Activity [place], Functional Strength, Gait, Safety, Therapeutic Exercise, Transfers Treatment Duration: Feb 26, 2023 Frequency: 6 times per week Estimated Hrs Per Day: .25 hour per day Patient and/or Family Agrees t: Yes Time Time In: 906 Time Out: 925 DATE: Feb 11, 2023 Total Billed Treatment Time: 19 Total Billed Treatment 1 visit EVModC 19 min CAILIN COLEY PT Feb 11, 2023 10:28
--- NOTE | 2023-02-11 10:46 | Occupational Therapy Eval ---
OT Evaluation-General/PLF Medical Diagnosis Admission Date Feb 08, 2023 at 16:43 Medical Diagnosis: cellulitis right LE Onset Date: Feb 08, 2023 Therapy Diagnosis Therapy Diagnosis: weakness Height/Weight Height (Feet): 5 Height (Inches): 65.00 Weight (Pounds): 252 Weight (Ounces): 14.0 Precautions Precautions/Isolations: Fall Prevention, Standard Precautions Weight Bear Status Weight Bearing Restriction: Full Weight Bearing Referral Physician: Vaughn Referral Reason: Evaluation/Treatment Medical History Pertinent Medical History: Alcoholism, Arthritis, COPD, DM, GERD, HTN, Neuropathy, Smoking Reviewed History: Yes Social History Home: Apartment Current Living Status: ex ADL-Prior Level of Function SCALE: Activities may be completed with or without assistive devices. 8-Ewdzuurezv-puhlytb completes the activity by him/herself with no assistance from a helper. 5-Set-up or Clean-up Assistance-helper sets up or cleans up; patient completes activity. [place] assists only prior to or following the activity. 4-Supervision or Touching Assistance-helper provides verbal cues and/or touching/steadying and/or contact guard assistance as patient completes activity. Assistance may be provided throughout the activity or intermittently. 3-Partial/Moderate Assistance-helper does LESS THAN HALF the effort. [place] lifts, holds or supports trunk or limbs, but provides less than half the effort. 2-Substantial/Maximal Assistance-helper does MORE THAN HALF the effort. [place] lifts or holds trunk or limbs and provides more than half the effort. 3-Psqqqevls-kairpz does ALL the effort. Patient does none of the effort to complete the activity. Or, the assistance of 2 or more helpers is required for the patient to complete the activity. If activity was not attempted, code reason: 7-Patient Refused. 9-Not Applicable-not attempted and the patient did not perform the activity before the current illness, exacerbation or injury. 10-Not Attempted due to Environmental Limitations-(lack of equipment, weather restraints, etc.). 88-Not Attempted due to Medical Conditions or Safety Concerns. Self Care: Needed Some Help Functional Cognition: Needed Some Help Ex moved in over a month ago and assists w/I/ADLS. Patient wears pullover gowns and brief. Uses hygiene tool when not getting assistance Drive Self: No OT Current Status Subjective Agreeable to OT Mental Status/Objective Patient Orientation: Person, Place, Time, Situation Attachments: Oxygen Current Glasses/Contacts: Yes Upper Extremity ROM BUE ROM WFLS Upper Extremity Coordination INTACT Upper Extremity Sensation INTACT Upper Extremity Strength +3/5 ADL-Treatment Eating (QC): 6 Oral Hygiene (QC): 5 Shower/Bathe Self (QC): 7 Upper Body Dressing (QC): 4 Lower Body Dressing (QC): 3 On/Off Footwear (QC): 1 Toileting Hygiene (QC): 3 Education OT Patient Education: Correct positioning, Modified ADL techniques, Progress toward Goal/Update tx plan, Purpose of tx/functional activities, Reviewed precautions, Rehab process, Safety issues, Transfer techniques Teaching Recipient: Patient Teaching Methods: Demonstration, Discussion Response to Teaching: Reinforcement Needed OT Senior Linux Administrator Goals Senior Linux Administrator Goals Eating (QC): 6 Oral Hygiene (QC): 6 Toileting Hygiene (QC): 5 Shower/Bathe Self (QC): 4 Upper Body Dressing (QC): 6 Lower Body Dressing (QC): 4 On/Off Footwear (QC): 3 1=Demonstrate adherence to instructed precautions during ADL tasks. 2=Patient will verbalize/demonstrate understanding of assistive devices/modifications for ADL. 3=Patient will improve strength/tolerance for activity to enable patient to perform ADL's. OT Education/Plan Problem List/Assessment Assessment: Decreased Activ Tolerance, Impaired Self-Care Skills Discharge Recommendations Plan/Recommendations: Continue POC Treatment Plan/Plan of Care Treatment,Training & Education: Yes Patient would benefit from OT for education, treatment and training to promote independence in ADL's, mobility, safety and/or upper extremity function for ADL's. Plan of Care: ADL Retraining, Functional Mobility, Group Exercise/Act as Ind, UE Funct Exercise/Act Treatment Duration: Feb 19, 2023 Frequency: 3 times per week (3-5 TIMES PER WEEK) Estimated Hrs Per Day: .25 hour per day Agreement: Yes Rehab Potential: Guarded Time Start Time: 09:06 Stop Time: 09:25 DATE: Feb 11, 2023 Total Time Billed (hr/min): 19 Billed Treatment Time EVM 19 MIN ELISABETH CASILLAS OT Feb 11, 2023 10:46
--- NOTE | 2023-02-11 11:01 | Wound Care Assessment ---
Wound Care Assessment Date Seen by Provider: Feb 11, 2023 Time Seen by Provider: 11:00 Chief Complaint R. medial calf ulcer HPI This pleasant 68 year old lady lives in [place] and notes that on 01-08-23 she fell and scraped her medial right calf on some concrete. Her wound has not healed since and she subsequently developed an associated cellulitis for which she is currently admitted. She admits to poor control of her DM2 with elevated A1C as outpatient. FSBS while admitted in 300's. She was placed on Vancomycin on admit and is currently on Rocephin. She does have noted PEM as well despite her morbid obesity. Venous doppler negative for acute DVT. Per patient, her cellulitis is improving. She does have chronic lymphdedema with hyperpigmentation and shiney skin c/w venous stigmata bilaterally. It is difficult to say how much of her erythema is related to infection and how much is related to venous hypertension with associated inflammation. Mixed bacteria on wound culture (rare to moderate quantities). I think her delay of healing is primarily related to her poorly controlled diabetes. I will suggest some dressings for now but I did encourage her to see me in follow up upon discharge. Outpatient debridement and further work up would be indicated to heal this ulceration. I do think fdc would assist in glycemic control as well as follow up with outpatient wound care needs (daily dressings changes...) Past Medical History: Admits Diabetes Type II Obesity, PEM, oxygen dependence, presumed venous HTN with ulceration and inflammation. Smoking Status: Former Smoker Recreational Drug Use: No Other Social Hx Currently lives independently Review of Systems General: Other (Obesity) HEENT: Other (Hearing wnl) Pulmonary: Other (Continuous oxygen use) Cardiovascular: Edema (2=3+ bilateral) Genitourinary: Incontinence, Other (Polyuria) Neurological: Weakness Exam Vital Signs Date Time Temp Pulse Resp B/P (MAP) Pulse Ox O2 Delivery O2 Flow Rate FiO2 02/11/23 07:24 36.3 61 18 149/80 (103) 95 Nasal Cannula 4.00 Capillary Refill : Less Than 3 Seconds General Appearance: no apparent distress, obese HEENT: other (Normal hearing) Neck: full range of motion Cardiovascular: other (2-3+ edema b/l) Respiratory: other (continous O2) Extremities: inflammation, pedal edema, swelling Neurologic/Psychiatric: alert, normal mood/affect, oriented x 3 Skin Problem Location: lower extremities Skin Character: erythema (bilateral), swelling (bilateral), thickening (bilateral) Wound assessment: 3x4.5x0.2cm. The epithelialization is none. There is no tunneling or undermining. Drainage is large and serosanguinous. Granulation is small and pink, necrotic is large and eschar and slough. The margins show epibole. Results Laboratory Tests 02/10/23 11:43: Glucometer 339H 02/10/23 14:29: Glucometer 300H 02/10/23 15:45: Glucometer 266H 02/10/23 16:04: Ammonia 35H 02/10/23 21:27: Glucometer 306H 02/11/23 05:09: White Blood Count 8.3, Red Blood Count 4.53, Hemoglobin 13.0, Hematocrit 41, Mean Corpuscular Volume 90, Mean Corpuscular Hemoglobin 29, Mean Corpuscular Hemoglobin Concent 32, Red Cell Distribution Width 15.0H, Platelet Count 157, Mean Platelet Volume 9.3, Immature Granulocyte % (Auto) 0, Neutrophils (%) (Auto) 68, Lymphocytes (%) (Auto) 18, Monocytes (%) (Auto) 8, Eosinophils (%) (Auto) 5, Basophils (%) (Auto) 1, Neutrophils # (Auto) 5.7, Lymphocytes # (Auto) 1.5, Monocytes # (Auto) 0.7, Eosinophils # (Auto) 0.4H, Basophils # (Auto) 0.0, Immature Granulocyte # (Auto) 0.0, Sodium Level 133L, Potassium Level 4.3, Chloride Level 100, Carbon Dioxide Level 26, Anion Gap 7, Blood Urea Nitrogen 14, Creatinine 0.86, Estimat Glomerular Filtration Rate 73, BUN/Creatinine Ratio 16, Glucose Level 259H, Calcium Level 8.5, Corrected Calcium 9.5, Total Bilirubin 0.3, Aspartate Amino Transf (AST/SGOT) 8, Alanine Aminotransferase (ALT/SGPT) 11, Alkaline Phosphatase 98, Total Protein 5.5L, Albumin 2.8L 02/11/23 10:45: Glucometer 259H Microbiology 02/09/23 MRSA Screen - Final, Complete MRSA not isolated 02/08/23 Urine Culture - Final, Complete NO GROWTH 02/08/23 Blood Culture - Preliminary, Resulted No growth 02/08/23 Gram Stain - Final, Resulted 02/08/23 Wound Culture - Preliminary, Resulted Mixed Bacterial Lima Klebsiella/Enterobacter spec Staph, Coag Neg (HOME STAGING SPECIALIST) Corynebacterium species Assessment/Plan/Dx Assessment: 1. Non-pressure ulcer of R. medial calf full thickness 2. Diabetes 2 with ulcer 3. Diabetes with hyperglycemia 4. Lymphedema 5. Venous HTN with ulcer and inflammation 6. Cellulitis with polymicrobial culture 7. Obesity with continuous O2 usage 8. PEM 9. Generalized weakness Plan: 1. Cleanse daily with Vashe (gently scrub to remove eschar/slough). Apply barrier ointment to periwound. Apply silver alginate hydrofiber to wound bed. Secure with Project 2020 BFD. Change daily. Loida would benefit from outpatient wound care upon d/c home 2. See above 3. Tighter glycemic control is necessary for wound healing and infection control. Goal average FSBS <160. Regular accuchecks for monitoring needed outpatient to acheive this goal 4. Elevation. Could consider compression dressings as outpatient pending further evaluation 5. Further workup indicated as outpatient 6. Defer to primary team. It sounds as though patient is improving with current treatment plan. Check ESR and CRP and further outpatient workup may be indicated pending results 7. Defer to primary team. 8. Glucerna added. Check prealbumin 9. Defer to primary team 10. Defer discharge plan to primary team but I do agree that fdc so unds reasonable. She will need daily wound care dressings, weekly follow up and greatly improved glycemic control/monitoring to heal this ulcer. I am not convinced Loida can do these on her own. KATIA WEINER MD Feb 11, 2023 11:01
--- NOTE | 2023-02-11 11:12 | Progress Note ---
REJI ROY MD 02/11/23 1112: Focused Exam Lactate Level 02/08/23 12:20: Lactic Acid Level 1.38 Objective Exam Last Set of Vital Signs Vital Signs Date Time Temp Pulse Resp B/P (MAP) Pulse Ox O2 Delivery O2 Flow Rate FiO2 02/11/23 08:00 Nasal Cannula 4.00 02/11/23 07:24 36.3 61 18 149/80 (103) 95 Capillary Refill : Less Than 3 Seconds I&O Intake and Output 02/11/23 00:00 Intake Total 2050 ml Output Total 2400 ml Balance -350 ml Intake Oral 1750 ml IV Total 300 ml Output Urine Total 2400 ml Results/Procedures Lab Laboratory Tests 02/10/23 11:43: Glucometer 339H 02/10/23 14:29: Glucometer 300H 02/10/23 15:45: Glucometer 266H 02/10/23 16:04: Ammonia 35H 02/10/23 21:27: Glucometer 306H 02/11/23 05:09: White Blood Count 8.3, Red Blood Count 4.53, Hemoglobin 13.0, Hematocrit 41, Mean Corpuscular Volume 90, Mean Corpuscular Hemoglobin 29, Mean Corpuscular Hemoglobin Concent 32, Red Cell Distribution Width 15.0H, Platelet Count 157, Mean Platelet Volume 9.3, Immature Granulocyte % (Auto) 0, Neutrophils (%) (Auto) 68, Lymphocytes (%) (Auto) 18, Monocytes (%) (Auto) 8, Eosinophils (%) (Auto) 5, Basophils (%) (Auto) 1, Neutrophils # (Auto) 5.7, Lymphocytes # (Auto) 1.5, Monocytes # (Auto) 0.7, Eosinophils # (Auto) 0.4H, Basophils # (Auto) 0.0, Immature Granulocyte # (Auto) 0.0, Sodium Level 133L, Potassium Level 4.3, Chloride Level 100, Carbon Dioxide Level 26, Anion Gap 7, Blood Urea Nitrogen 14, Creatinine 0.86, Estimat Glomerular Filtration Rate 73, BUN/Creatinine Ratio 16, Glucose Level 259H, Calcium Level 8.5, Corrected Calcium 9.5, Total Bilirubin 0.3, Aspartate Amino Transf (AST/SGOT) 8, Alanine Aminotransferase (ALT/SGPT) 11, Alkaline Phosphatase 98, Total Protein 5.5L, Albumin 2.8L 4/14/23 10:45: Glucometer 259H Microbiology 02/09/23 MRSA Screen - Final, Complete MRSA not isolated 02/08/23 Urine Culture - Final, Complete NO GROWTH 02/08/23 Blood Culture - Preliminary, Resulted No growth 02/08/23 Gram Stain - Final, Resulted 02/08/23 Wound Culture - Preliminary, Resulted Mixed Bacterial Lima Klebsiella/Enterobacter spec Staph, Coag Neg (RN INTERVENTIONAL) Corynebacterium species Assessment/Plan Assessment/Plan (1) Cellulitis of right lower extremity Status: Acute Assessment & Plan: - Continue IV antibiotics, elevate legs, d/c IVFs (2) Hypertension Status: Chronic Assessment & Plan: - Continue home meds Qualifiers: Qualified Codes: I10 - Essential (primary) hypertension (3) Type 2 diabetes mellitus, with long-term current use of insulin Status: Chronic Assessment & Plan: - SSI, accuchecks ACHS Qualifiers: Qualified Codes: E11.65 - Type 2 diabetes mellitus with hyperglycemia; Z79.4 - USP (current) use of insulin (4) Hypoxia Status: Acute Assessment & Plan: - IS, out of bed, PT (5) Physical debility Status: Acute Assessment & Plan: - Patient interested in SNF do to increase falls and weakness BRONSON02/23/23 0851: REJI ROY MD Feb 11, 2023 11:12 BRONSON,OctFeb 23, 2023 08:51
[2023-02-11] MEDS: cefTRIAXone IV/IM 1,000 MG in NS (IVPB) 50 ML IV SCH (11:35)
[2023-02-11 11:38] VITALS: BP 176/79
--- NOTE | 2023-02-11 11:45 | Progress Note ---
MATTIE RETANA 02/11/23 1145: Subjective Subjective/Events-last exam Loida Jeff is a 68 y/o female who has been admitted to the Hospitalist service for management of R lower leg cellulitis. The patient reports she has mild-moderate pain in her R lower leg that is associated with the ulcer and cellulitis. The patient states she feels weak and unstable when ambulating. The pt expressed desire to go to ARU for further therapy to improve debility. Discussed with the pt that the health care team will communicate what is available and appropriate for her. The pt denies pain elsewhere and ROS is otherwise negative. Review of Systems General: No Fatigue, No Malaise HEENT: No Head Aches, No Visual Changes Pulmonary: Dyspnea (with exertion); No Cough Cardiovascular: Edema (bilateral LE ); No: Chest Pain, Palpitations Gastrointestinal: No: Nausea, Vomiting, Abdominal Pain, Diarrhea, Constipation Genitourinary: Other Musculoskeletal: leg pain (R leg pain) Neurological: Weakness (with ambulation) Focused Exam Lactate Level 02/08/23 12:20: Lactic Acid Level 1.38 Objective Exam Last Set of Vital Signs Vital Signs Date Time Temp Pulse Resp B/P (MAP) Pulse Ox O2 Delivery O2 Flow Rate FiO2 02/11/23 08:00 Nasal Cannula 4.00 02/11/23 07:24 36.3 61 18 149/80 (103) 95 Capillary Refill : Less Than 3 Seconds I&O Intake and Output 02/11/23 00:00 Intake Total 2050 ml Output Total 2400 ml Balance -350 ml Intake Oral 1750 ml IV Total 300 ml Output Urine Total 2400 ml General: Alert, Oriented X3, Cooperative, No Acute Distress HEENT: Atraumatic Lungs: Clear to Auscultation, Other (diminished air movement) Heart: Regular Rate Abdomen: Normal Bowel Sounds, Soft Extremities: Other (+2 edema of bilateral LE. Approximately a 5X4cm ulcer of medial R lower leg with serosanguinous drainage. Erythema of bilateral LE, worse on the R. ) Skin: No Rashes, Other (Approximately a 5X4cm ulcer of medial R lower leg with serosanguinous drainage. Erythema of bilateral LE, worse on the R. ) Neuro: Normal Speech Psych/Mental Status: Mental Status NL, Mood NL Results/Procedures Lab Laboratory Tests 02/10/23 11:43: Glucometer 339H 02/10/23 14:29: Glucometer 300H 02/10/23 15:45: Glucometer 266H 02/10/23 16:04: Ammonia 35H 02/10/23 21:27: Glucometer 306H 02/11/23 05:09: White Blood Count 8.3, Red Blood Count 4.53, Hemoglobin 13.0, Hematocrit 41, Mean Corpuscular Volume 90, Mean Corpuscular Hemoglobin 29, Mean Corpuscular Hemoglobin Concent 32, Red Cell Distribution Width 15.0H, Platelet Count 157, Mean Platelet Volume 9.3, Immature Granulocyte % (Auto) 0, Neutrophils (%) (Auto) 68, Lymphocytes (%) (Auto) 18, Monocytes (%) (Auto) 8, Eosinophils (%) (Auto) 5, Basophils (%) (Auto) 1, Neutrophils # (Auto) 5.7, Lymphocytes # (Auto) 1.5, Monocytes # (Auto) 0.7, Eosinophils # (Auto) 0.4H, Basophils # (Auto) 0.0, Immature Granulocyte # (Auto) 0.0, Sodium Level 133L, Potassium Level 4.3, Chloride Level 100, Carbon Dioxide Level 26, Anion Gap 7, Blood Urea Nitrogen 14, Creatinine 0.86, Estimat Glomerular Filtration Rate 73, BUN/Creatinine Ratio 16, Glucose Level 259H, Calcium Level 8.5, Corrected Calcium 9.5, Total Bautista irubin 0.3, Aspartate Amino Transf (AST/SGOT) 8, Alanine Aminotransferase (ALT/SGPT) 11, Alkaline Phosphatase 98, C-Reactive Protein High Sensitivity 4.54H, Total Protein 5.5L, Albumin 2.8L 02/11/23 10:45: Glucometer 259H Microbiology 02/09/23 MRSA Screen - Final, Complete MRSA not isolated 02/08/23 Urine Culture - Final, Complete NO GROWTH 02/08/23 Blood Culture - Preliminary, Resulted No growth 02/08/23 Gram Stain - Final, Resulted 02/08/23 Wound Culture - Preliminary, Resulted Mixed Bacterial Lima Klebsiella/Enterobacter spec Staph, Coag Neg (RAILROAD COOK) Corynebacterium species Assessment/Plan Assessment/Plan Admission Status: Inpatient Order (span 2 midnights) (1) Cellulitis of right lower extremity Status: Acute Assessment & Plan: - Continue IV antibiotics, elevate legs, d/c IVFs -Discontinue esteban catheter today, 02/11 -Continue PT (2) Hypertension Status: Chronic Assessment & Plan: - Continue home meds Qualifiers: Qualified Codes: I10 - Essential (primary) hypertension (3) Type 2 diabetes mellitus, with long-term current use of insulin Status: Chronic Assessment & Plan: - SSI, accuchecks ACHS Qualifiers: Qualified Codes: E11.65 - Type 2 diabetes mellitus with hyperglycemia; Z79.4 - snf (current) use of insulin (4) Hypoxia Status: Acute Assessment & Plan: - IS, out of bed, PT (5) Physical debility Status: Acute Assessment & Plan: - Patient interested in SNF do to increase falls and weakness -D/C esteban today, 02/11 -PT to increase strength and mobility REJI ROY MD 02/11/23 1500: Supervisory-Addendum Brief Supervisory Addendum Verification and Attestation of Medical Student E/M Service A medical student performed and documented this service in my presence. I reviewed and verified all information documented by the medical student and made modifications to such information, when appropriate. I personally performed the physical exam and medical decision making. Reji Roy, Feb 11, 2023,15:00 Patient to go to SNF next week MATTIE RETANA Feb 11, 2023 11:45 REJI ROY MD Feb 11, 2023 15:00
[2023-02-11 15:18] VITALS: BP 158/66
[2023-02-11 15:37] VITALS: BP 158/66
[2023-02-11] MEDS: KETOROLAC 30 MG/ML VIAL IVP PRN ×2 (16:25→23:35)
[2023-02-11] MEDS: MELATONIN 3 MG TABLET PO PRN (23:35)
[2023-02-12 05:43] LABS: BASOPHILS # (AUTO) 0.1 10^3/uL (0.0-0.1); BASOPHILS % (AUTO) 1 % (0-10); EOSINOPHILS # (AUTO) 0.5 10^3/uL (0.0-0.3); EOSINOPHILS % (AUTO) 6 % (0-10); HEMATOCRIT 42 % (35-52); HEMOGLOBIN 13.5 g/dL (11.5-16.0); LYMPHOCYTES # (AUTO) 1.3 10^3/uL (1.0-4.0); LYMPHOCYTES % (AUTO) 17 % (12-44); MEAN CORPUSCULAR HEMOGLOBIN 29 pg (25-34); MEAN CORPUSCULAR HGB CONC 32 g/dL (32-36); MEAN CORPUSCULAR VOLUME 88 fL (80-99); MEAN PLATELET VOLUME 9.9 fL (9.0-12.2); MONOCYTES # (AUTO) 0.6 10^3/uL (0.0-1.0); MONOCYTES % (AUTO) 8 % (0-12); NEUTROPHILS # (AUTO) 5.1 10^3/uL (1.8-7.8); NEUTROPHILS % (AUTO) 68 % (42-75); PLATELET COUNT 158 10^3/uL (130-400); WHITE BLOOD COUNT 7.4 10^3/uL (4.3-11.0)
[2023-02-12] MEDS: inSUlin ASPART (NovoLOG) 1 UNIT/0.01 ML (CHARGE PER UNIT) SC SCH ×6 (06:00→20:49)
[2023-02-12 06:04] LABS: ALBUMIN 2.9 GM/DL (3.2-4.5); BILIRUBIN,TOTAL 0.3 MG/DL (0.1-1.0); CALCIUM 9.4 MG/DL (8.5-10.1); CREATININE SERUM 0.88 MG/DL (0.60-1.30); POTASSIUM 4.6 MMOL/L (3.6-5.0); TOTAL PROTEIN 5.8 GM/DL (6.4-8.2)
[2023-02-12 07:20] VITALS: BP 165/80
--- NOTE | 2023-02-12 08:41 | Physical Therapy Daily Note ---
PT Daily Note-Current Subjective pt in room supine in bed upon arrival. pt states she is having a hard time swallowing and states that it get "stuck". pt states that her anxiety is very high and she was tearful talking about it. Pain Section J - Health Conditions 1. Rarely or not at all 2. Occasionally 3. Frequently 4. Almost constantly 8. Unable to answer Pain Effect on Sleep: 1 Pain Interference with Therapy: 1 Pain Interference w/Day-to-Day: 1 Transfers SCALE: Activities may be completed with or without assistive devices. 1-Whojwltcgl-teatuve completes the activity by him/herself with no assistance from a helper. 5-Set-up or Clean-up Assistance-helper sets up or cleans up; patient completes activity. [place] assists only prior to or following the activity. 4-Supervision or Touching Assistance-helper provides verbal cues and/or touching/steadying and/or contact guard assistance as patient completes activity. Assistance may be provided throughout the activity or intermittently. 3-Partial/Moderate Assistance-helper does LESS THAN HALF the effort. [place] lifts, holds or supports trunk or limbs, but provides less than half the effort. 2-Substantial/Maximal Assistance-helper does MORE THAN HALF the effort. [place] lifts or holds trunk or limbs and provides more than half the effort. 3-Wghuszgzp-wlpuru does ALL the effort. Patient does none of the effort to complete the activity. Or, the assistance of 2 or more helpers is required for the patient to complete the activity. If activity was not attempted, code reason: 7-Patient Refused. 9-Not Applicable-not attempted and the patient did not perform the activity before the current illness, exacerbation or injury. 10-Not Attempted due to Environmental Limitations-(lack of equipment, weather restraints, etc.). 88-Not Attempted due to Medical Conditions or Safety Concerns. Stair Training 12 Steps (QC): 5 Treatments pt was able to preform bed mobility with Mod plus assist pt needed aid with putting legs out of bed and and from transitioning from supine to sitting. pt was able to ambulate 12 steps to the bathroom with CGA this day Assessment Current Status: Fair Progress PT Residential Goals Environmental Laboratory Technician Goals PT Environmental Laboratory Technician Goals Time Frame: Feb 26, 2023 Roll Left & Right (QC): 6 Sit to Lying (QC): 6 Lying-Sitting on Side/Bed(QC): 6 Sit to Stand (QC): 6 Chair/Gfa-em-Xxsvc Xfer(QC): 6 Toilet Transfer (QC): 6 Does the Patient Walk: Yes Walk 10 feet (QC): 5 Walk 50ft with 2 Turns (QC): 5 Walk 150 ft (QC): 5 PT Plan Treatment/Plan Treatment Plan: Continue Plan of Care Treatment Plan: Bed Mobility, Education, Functional Activity Garrick, Functional Strength, Gait, Safety, Therapeutic Exercise, Transfers Treatment Duration: Feb 26, 2023 Frequency: 6 times per week Estimated Hrs Per Day: .25 hour per day Patient and/or Family Agrees t: Yes Time Time In: 815 Time Out: 830 DATE: Feb 12, 2023 Total Billed Treatment Time: 15 Total Billed Treatment 1. gt Roxi Riley MISSILE AND MISSILE CHECKOUT TECHNICIAN Feb 12, 2023 08:41
[2023-02-12] MEDS: busPIRone 15 MG (BUSPAR) TABLET PO SCH ×2 (09:13→20:15)
[2023-02-12] MEDS: ROSUVASTATIN 20 MG (CRESTOR) TABLET PO SCH (09:13)
[2023-02-12] MEDS: amLODIPine 5 MG (NORVASC) TAB PO SCH (09:13)
[2023-02-12] MEDS: buPROPion SR 100 MG (WELLBUTRIN SR) TAB PO SCH (09:13)
[2023-02-12] MEDS: toPIRamate 25 MG (TOPAMAX) TAB PO SCH (09:13)
[2023-02-12] MEDS: GABAPENTIN 400 MG (NEURONTIN) CAP PO SCH ×3 (09:14→20:15)
[2023-02-12] MEDS: MICONAZOLE 2% POWDER (DESENEX AF) 90 GM TOP SCH ×2 (09:14→20:15)
[2023-02-12] MEDS: ACETAMINOPHEN 500 MG TAB (TYLENOL) PO PRN (10:12)
[2023-02-12] MEDS: cefTRIAXone IV/IM 1,000 MG in NS (IVPB) 50 ML IV SCH (10:54)
[2023-02-12 11:07] VITALS: BP 177/80
--- NOTE | 2023-02-12 11:48 | Progress Note - Hospitalist ---
Subjective HPI/CC On Admission Date Seen by Provider: Feb 12, 2023 Time Seen by Provider: 11:00 Subjective/Events-last exam Patient reports overall she has been feeling better she is not having any dysuria post Hopper catheter removal but was concerned that there may still be an ongoing urinary tract infection. She predominately reports her usual neuropathic foot pain bilateral. She denies night sweats chills fever chest discomfort. She did ask for something for insomnia. Objective Exam Vital Signs Vital Signs Date Time Temp Pulse Resp B/P (MAP) Pulse Ox O2 Delivery O2 Flow Rate FiO2 02/12/23 11:07 36.3 64 20 177/80 (112) 97 Nasal Cannula 2.00 02/11/23 15:37 36 Capillary Refill : Less Than 3 Seconds General Appearance: No Apparent Distress, Chronically ill, Obese Respiratory: Chest Non Tender, Lungs Clear, Normal Breath Sounds, No Accessory Muscle Use, No Respiratory Distress Cardiovascular: Regular Rate, Rhythm, No Edema, No Gallop, No JVD, No Murmur, Normal Peripheral Pulses Gastrointestinal: Normal Bowel Sounds, No Organomegaly, No Pulsatile Mass, Non Tender, Soft Extremity: Other (Bilateral venous insufficiency changes noted excoriation with surrounding erythema that appears more chronic in nature of the right lower extremity no significant drainage.) Results/Procedures Lab Laboratory Tests 02/12/23 05:13 Patient resulted labs reviewed. Assessment/Plan Assessment and Plan Assess & Plan/Chief Complaint (1) Cellulitis of right lower extremity Status: Acute Assessment & Plan: - Continue IV antibiotics, elevate legs, d/c IVFs (2) Hypertension Status: Chronic Assessment & Plan: - Continue home meds Qualifiers: Qualified Codes: I10 - Essential (primary) hypertension (3) Type 2 diabetes mellitus, with long-term current use of insulin Status: Chronic Assessment & Plan: - SSI, accuchecks ACHS Qualifiers: Qualified Codes: E11.65 - Type 2 diabetes mellitus with hyperglycemia; Z79.4 - terminal clerk (current) use of insulin (4) Hypoxia Status: Acute Assessment & Plan: - IS, out of bed, PT (5) Physical debility Status: Acute Assessment & Plan: - Patient interested in SNF do to increase falls and weakness 02/12: Cellulitis improving continue antibiotics. [facility] beginning of the week for ongoing antibiotics and physical therapy for significant deconditioning. Insulin requiring type 2 diabetes blood sugars remain elevated on sliding scale insulin will switch to scheduled 10 units NovoLog AC continue to monitor blood sugars. FARHAN TYLER MD Feb 12, 2023 11:48
[2023-02-12 15:33] VITALS: BP 186/82
[2023-02-12 19:07] VITALS: BP_SYST 176; BP_SYST 195; BP_DIAS 85
[2023-02-12] MEDS: MELATONIN 3 MG TABLET PO PRN (20:49)
[2023-02-12 23:27] VITALS: BP 188/84
[2023-02-13 03:12] VITALS: BP 160/72
[2023-02-13] MEDS: inSUlin ASPART (NovoLOG) 1 UNIT/0.01 ML (CHARGE PER UNIT) SC SCH ×7 (05:58→20:52)
[2023-02-13] MEDS: ONDANSETRON 4 MG/2 ML (SDV) Z0FRAN IV PRN (05:58)
[2023-02-13 07:18] VITALS: BP 174/74
[2023-02-13] MEDS: amLODIPine 5 MG (NORVASC) TAB PO SCH (08:05)
[2023-02-13] MEDS: buPROPion SR 100 MG (WELLBUTRIN SR) TAB PO SCH (08:05)
[2023-02-13] MEDS: toPIRamate 25 MG (TOPAMAX) TAB PO SCH (08:05)
[2023-02-13] MEDS: ROSUVASTATIN 20 MG (CRESTOR) TABLET PO SCH (08:05)
[2023-02-13] MEDS: busPIRone 15 MG (BUSPAR) TABLET PO SCH ×2 (08:05→20:50)
[2023-02-13] MEDS: GABAPENTIN 400 MG (NEURONTIN) CAP PO SCH ×3 (08:05→20:51)
[2023-02-13] MEDS: MICONAZOLE 2% POWDER (DESENEX AF) 90 GM TOP SCH ×2 (08:06→20:52)
--- NOTE | 2023-02-13 09:40 | Progress Note - Hospitalist ---
Subjective HPI/CC On Admission Date Seen by Provider: Feb 13, 2023 Time Seen by Provider: 08:30 Subjective/Events-last exam Patient reports left lower extremity discomfort denies chills fever with improving appetite. She denies chest pain or shortness of breath at rest still feels quite weak requiring assistance and the use of a walker to get to the bathroom and back. Objective Exam Vital Signs Vital Signs Date Time Temp Pulse Resp B/P (MAP) Pulse Ox O2 Delivery O2 Flow Rate FiO2 02/13/23 07:18 36.3 74 18 174/74 (107) 91 Nasal Cannula 2.00 02/11/23 15:37 36 Capillary Refill : Less Than 3 Seconds General Appearance: No Apparent Distress, Chronically ill, Obese Respiratory: No Accessory Muscle Use, No Respiratory Distress, Other (Few fine basilar rales and diminished breath sounds elsewhere chest is clear) Cardiovascular: Regular Rate, Rhythm, No Edema, No Gallop, No JVD, No Murmur Gastrointestinal: Normal Bowel Sounds, Non Tender Extremity: Other ( chronic venous insufficiency changes with brawny 1+ edema minimal drainage over shallow ulceration right tibia.) Results/Procedures Lab Patient resulted labs reviewed. Assessment/Plan Assessment and Plan Assess & Plan/Chief Complaint (1) Cellulitis of right lower extremity Status: Acute Assessment & Plan: - Continue IV antibiotics, elevate legs, d/c IVFs (2) Hypertension Status: Chronic Assessment & Plan: - Continue home meds Qualifiers: Qualified Codes: I10 - Essential (primary) hypertension (3) Type 2 diabetes mellitus, with long-term current use of insulin Status: Chronic Assessment & Plan: - SSI, accuchecks ACHS Qualifiers: Qualified Codes: E11.65 - Type 2 diabetes mellitus with hyperglycemia; Z79.4 - care home (current) use of insulin (4) Hypoxia Status: Acute Assessment & Plan: - IS, out of bed, PT (5) Physical debility Status: Acute Assessment & Plan: - Patient interested in SNF do to increase falls and weakness 02/12: Cellulitis improving continue antibiotics. Looking into retirement placement beginning of the week for ongoing antibiotics and physical therapy for significant deconditioning. Insulin requiring type 2 diabetes blood sugars remain elevated on sliding scale insulin will switch to scheduled 10 units NovoLog AC continue to monitor blood sugars. 02/12 cellulitis with venous insufficiency related skin ulceration of the right lower extremity continues to improve. Blood pressures remained elevated in the 1 60-1 80 systolic range we will add losartan 50 mg daily continue amlodipine 5 mg daily. Insulin neuro levels remain in the low to mid to 100 range will incr ease Levemir from 30 to 40 units at bedtime and increase NovoLog from 10 to 16 units before meals. [facility] [place]ARRETT MD Feb 13, 2023 09:40
[2023-02-13] MEDS ORDERED: LOSARTAN 50 MG (COZAAR) TAB PO ONE (09:45)
[2023-02-13] MEDS: cefTRIAXone IV/IM 1,000 MG in NS (IVPB) 50 ML IV SCH (10:57)
[2023-02-13 11:14] VITALS: BP 178/83
[2023-02-13] MEDS ORDERED: ONDANSETRON 4 MG (ZOFRAN) ORAL DISSOLVE TAB PO PRN (14:30)
[2023-02-13 15:50] VITALS: BP 162/75
[2023-02-13 20:04] VITALS: BP 155/75
[2023-02-13] MEDS: MELATONIN 3 MG TABLET PO PRN (20:51)
[2023-02-13] MEDS: IBUPROFEN TABLET 200 MG TAB PO PRN (20:51)
[2023-02-14] VITALS (7 sets, daily range): BP systolic 128–175; BP diastolic 60–78
[2023-02-14] MEDS: inSUlin ASPART (NovoLOG) 1 UNIT/0.01 ML (CHARGE PER UNIT) SC SCH ×7 (06:16→20:42)
[2023-02-14 06:31] LABS: BASOPHILS # (AUTO) 0.1 10^3/uL (0.0-0.1); BASOPHILS % (AUTO) 1 % (0-10); EOSINOPHILS # (AUTO) 0.4 10^3/uL (0.0-0.3); EOSINOPHILS % (AUTO) 7 % (0-10); HEMATOCRIT 41 % (35-52); HEMOGLOBIN 13.1 g/dL (11.5-16.0); LYMPHOCYTES # (AUTO) 1.4 10^3/uL (1.0-4.0); LYMPHOCYTES % (AUTO) 21 % (12-44); MEAN CORPUSCULAR HEMOGLOBIN 28 pg (25-34); MEAN CORPUSCULAR HGB CONC 32 g/dL (32-36); MEAN CORPUSCULAR VOLUME 89 fL (80-99); MEAN PLATELET VOLUME 9.7 fL (9.0-12.2); MONOCYTES # (AUTO) 0.5 10^3/uL (0.0-1.0); MONOCYTES % (AUTO) 8 % (0-12); NEUTROPHILS # (AUTO) 4.2 10^3/uL (1.8-7.8); NEUTROPHILS % (AUTO) 64 % (42-75); PLATELET COUNT 176 10^3/uL (130-400); WHITE BLOOD COUNT 6.6 10^3/uL (4.3-11.0)
[2023-02-14 06:40] LABS: ALBUMIN 2.9 GM/DL (3.2-4.5); POTASSIUM 4.4 MMOL/L (3.6-5.0)
[2023-02-14 06:43] LABS: TOTAL PROTEIN 5.8 GM/DL (6.4-8.2)
[2023-02-14 06:44] LABS: BILIRUBIN,TOTAL 0.5 MG/DL (0.1-1.0)
[2023-02-14 06:46] LABS: CREATININE SERUM 0.84 MG/DL (0.60-1.30)
[2023-02-14] MEDS: LOSARTAN 50 MG (COZAAR) TAB PO SCH (09:11)
[2023-02-14] MEDS: buPROPion SR 100 MG (WELLBUTRIN SR) TAB PO SCH (09:11)
[2023-02-14] MEDS: amLODIPine 5 MG (NORVASC) TAB PO SCH (09:12)
[2023-02-14] MEDS: GABAPENTIN 400 MG (NEURONTIN) CAP PO SCH ×3 (09:12→20:42)
[2023-02-14] MEDS: ROSUVASTATIN 20 MG (CRESTOR) TABLET PO SCH (09:12)
[2023-02-14] MEDS: busPIRone 15 MG (BUSPAR) TABLET PO SCH ×2 (09:12→20:41)
[2023-02-14] MEDS: toPIRamate 25 MG (TOPAMAX) TAB PO SCH (09:12)
[2023-02-14] MEDS: MICONAZOLE 2% POWDER (DESENEX AF) 90 GM TOP SCH ×2 (09:13→20:42)
--- NOTE | 2023-02-14 09:44 | Progress Note - Hospitalist ---
Subjective HPI/CC On Admission Date Seen by Provider: Feb 14, 2023 Time Seen by Provider: 09:45 Subjective/Events-last exam No major changes Awaiting placement at SNF No falls Pain controlled Review of Systems General: Fatigue, Malaise Objective Exam Vital Signs Vital Signs Date Time Temp Pulse Resp B/P (MAP) Pulse Ox O2 Delivery O2 Flow Rate FiO2 02/15/23 04:07 36.0 60 16 146/64 (91) 93 Nasal Cannula 2.00 02/11/23 15:37 36 Capillary Refill : Less Than 3 Seconds General Appearance: No Apparent Distress, WD/WN Respiratory: Lungs Clear, Normal Breath Sounds Cardiovascular: Regular Rate, Rhythm Neurologic/Psychiatric: Alert, Oriented x3, No Motor/Sensory Deficits, Normal Mood/Affect Skin: Rash (improved erythema right leg) Results/Procedures Lab Laboratory Tests 02/14/23 06:09 Patient resulted labs reviewed. 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
--- NOTE | 2023-02-14 10:02 | Physical Therapy Daily Note ---
PT Daily Note-Current Subjective Patient agrees to PT. Pain Section J - Health Conditions 1. Rarely or not at all 2. Occasionally 3. Frequently 4. Almost constantly 8. Unable to answer Pain Effect on Sleep: 1 Pain Interference with Therapy: 1 Pain Interference w/Day-to-Day: 1 Mental Status Patient Orientation: Normal For Age Attachments: Oxygen Transfers SCALE: Activities may be completed with or without assistive devices. 6-Ohwepfyomm-nlbmtmt completes the activity by him/herself with no assistance from a helper. 5-Set-up or Clean-up Assistance-helper sets up or cleans up; patient completes activity. [place] assists only prior to or following the activity. 4-Supervision or Touching Assistance-helper provides verbal cues and/or touching/steadying and/or contact guard assistance as patient completes activity. Assistance may be provided throughout the activity or intermittently. 3-Partial/Moderate Assistance-helper does LESS THAN HALF the effort. [place] lifts, holds or supports trunk or limbs, but provides less than half the effort. 2-Substantial/Maximal Assistance-helper does MORE THAN HALF the effort. [place] lifts or holds trunk or limbs and provides more than half the effort. 8-Ipzgdraal-lwnysz does ALL the effort. Patient does none of the effort to complete the activity. Or, the assistance of 2 or more helpers is required for the patient to complete the activity. If activity was not attempted, code reason: 7-Patient Refused. 9-Not Applicable-not attempted and the patient did not perform the activity before the current illness, exacerbation or injury. 10-Not Attempted due to Environmental Limitations-(lack of equipment, weather restraints, etc.). 88-Not Attempted due to Medical Conditions or Safety Concerns. Sit to Stand (QC): 4 Gait Training Distance: 300' Walk 10 feet (QC): 4 Walk 50 ft with 2 Turns(QC): 4 Walk 150 ft (QC): 4 Gait Assistive Device: FWW steady, functional gait sequence Assessment Patient tolerated treatment well and remains up in recliner. Patient improved with functional distance with ambulation. PT Fci Goals Fci Goals PT Fci Goals Time Frame: Feb 26, 2023 Roll Left & Right (QC): 6 Sit to Lying (QC): 6 Lying-Sitting on Side/Bed(QC): 6 Sit to Stand (QC): 6 Chair/Rtw-wd-Nkfth Xfer(QC): 6 Toilet Transfer (QC): 6 Does the Patient Walk: Yes Walk 10 feet (QC): 5 Walk 50ft with 2 Turns (QC): 5 Walk 150 ft (QC): 5 PT Plan Treatment/Plan Treatment Plan: Continue Plan of Care Treatment Plan: Bed Mobility, Education, Functional Activity Garrick, Functional Strength, Gait, Safety, Therapeutic Exercise, Transfers Treatment Duration: Feb 26, 2023 Frequency: 6 times per week Estimated Hrs Per Day: .25 hour per day Patient and/or Family Agrees t: Yes Time Time In: 920 Time Out: 934 DATE: Feb 14, 2023 Total Billed Treatment Time: 14 Total Billed Treatment 1 visit FA 14 min CAILIN COLEY PT Feb 14, 2023 10:02
[2023-02-14] MEDS ORDERED: AMLO-250 PO (10:28)
[2023-02-14] MEDS ORDERED: TIRZ2.5P SQ (10:28)
[2023-02-14] MEDS ORDERED: INSU100I14 SC (10:28)
[2023-02-14] MEDS ORDERED: BUSP30TA2 PO (10:28)
[2023-02-14] MEDS ORDERED: ROSU20TA32 PO (10:28)
[2023-02-14] MEDS ORDERED: INSU100I32 SQ (10:28)
[2023-02-14] MEDS ORDERED: TOPI-241 PO (10:28)
[2023-02-14] MEDS ORDERED: FURO40TA4 PO (10:28)
[2023-02-14] MEDS ORDERED: MELA3TAB39 PO (10:28)
[2023-02-14] MEDS ORDERED: MICO90PO TOP (10:28)
[2023-02-14] MEDS ORDERED: ONDA4TAB11 PO (10:28)
[2023-02-14] MEDS ORDERED: GABA800T10 PO ×2 (10:28)
[2023-02-14] MEDS ORDERED: CLON1TAB13 PO (10:28)
[2023-02-14] MEDS ORDERED: ERGO1250 PO (10:28)
[2023-02-14] MEDS ORDERED: METF-399 PO (10:28)
[2023-02-14] MEDS ORDERED: LOSA50TA63 PO (10:28)
[2023-02-14] MEDS ORDERED: CEFD300C3 PO (10:28)
[2023-02-14] MEDS ORDERED: BUPR-104 PO (10:28)
--- NOTE | 2023-02-14 10:29 | Discharge Inst-Skilled Nursing ---
Discharge Inst-Skilled NF Reconcile Patient Problems Problems Reviewed?: Yes Patient Instructions Patient Problems: Debility Consult/Follow Up/Orders Follow Up Appt.: PCP [place] rounds Skilled NF Admit to: [facility] Certification (SNF) I certify that SNF services are required to be given on an inpatient basis because of the above named patient's need for [facility] care on a continuing basis for the conditions(s) for which he/she was receiving inpatient hospital services prior to his/her transfer to the SNF. Long Term Facility Order: Nursing Services, Stationary Engineer-Evaluate & Treat, Physical Therapy-Evaluate & Treat Oxygen Delivery Method: Nasal Cannula Discharge Diet: ADA Diet Resuscitation Status: Do Not Resuscitate New & Resume Previous Orders New Medications: Cefdinir (Cefdinir) 300 Mg Capsule 300 MG PO BID, #10 CAP Losartan Potassium (Losartan Potassium) 50 Mg Tablet 50 MG PO DAILY, #30 TAB Melatonin (Melatonin) 3 Mg Tablet 6 MG PO HS PRN for INSOMNIA, #30 TAB Miconazole Nitrate (Lotrimin AF) 2 % Powder 0 GM TOP BID, #1 EA twice daily Ondansetron (Ondansetron Odt) 4 Mg Tab.rapdis 4 MG PO Q4HR PRN for NAUSEA/VOMITING-1ST LINE, #10 TAB Changed Medications: Gabapentin (Gabapentin) 800 Mg Tablet 1200 MG PO HS, #60 TAB (Changed from: Removed Instructions) Continued Medications: Amlodipine Besylate (Amlodipine Besylate) 5 Mg Tablet 5 MG PO DAILY, #30 TAB (This prescription has been renewed) Bupropion HCl (Bupropion HCl Sr) 100 Mg Tablet.er 100 MG PO DAILY, #30 TAB (This prescription has been renewed) Buspirone HCl (Buspirone HCl) 30 Mg Tablet 30 MG PO BID, #60 TAB (This prescription has been renewed) Clonazepam (Clonazepam) 1 Mg Tablet 1 MG PO TID PRN for ANXIETY, #30 TAB (This prescription has been renewed) Ergocalciferol (Vitamin D2) (Vitamin D2) 1,250 Mcg (20645 Unit) Capsule 1250 MCG PO WED,SAT, #8 CAP (This prescription has been renewed) Furosemide (Furosemide) 40 Mg Tablet 40 MG PO DAILY, #30 TAB (This prescription has been renewed) Gabapentin (Gabapentin) 800 Mg Tablet 800 MG PO TID, #90 TAB (This prescription has been renewed) Insulin Aspart (Novolog Flexpen) 100 Unit/Ml (3 Ml) Solution 16 UNITS SC TIDAC, #1 EACH (This prescription has been renewed) Insulin Degludec (Tresiba Flextouch U-100) 100 Unit/Ml (3 Ml) Insuln.pen 40 UNIT SQ HS, #1 EA (This prescription has been renewed) Metformin HCl (Metformin HCl) 1,000 Mg Tablet 1000 MG PO BID, #60 TAB (This prescription has been renewed) Rosuvastatin Calcium (Rosuvastatin Calcium) 20 Mg Tablet 20 MG PO DAILY, #30 TAB (This prescription has been renewed) Tirzepatide (Mounjaro) 2.5 Mg/0.5 Ml Pen.injctr 2.5 MG SQ SAT, #1 EA (This prescription has been renewed) Topiramate (Topiramate) 50 Mg Tablet 50 MG PO DAILY, #30 TAB (This prescription has been renewed) Bebe Shah Feb 14, 2023 10:29 BEBE SHAH DO Feb 14, 2023 10:29
--- NOTE | 2023-02-14 11:08 | Discharge Summary ---
Discharge Summary Hospital Course Hospital Course Date of Admission: Feb 12, 2023 at 12:13 Admission Diagnosis : Family Physician/Provider: Zeenat Hubbard MD Date of Discharge: 02/14/23 Discharge Diagnosis: [ ] Hospital Course: [ ] Labs and Pending Lab Test: Laboratory Tests 02/13/23 11:17: Glucometer 251H 02/13/23 15:56: Glucometer 265H 02/13/23 20:23: Glucometer 186H 02/14/23 05:48: Glucometer 227H 02/14/23 06:09: White Blood Count 6.6, Red Blood Count 4.63, Hemoglobin 13.1, Hematocrit 41, Mean Corpuscular Volume 89, Mean Corpuscular Hemoglobin 28, Mean Corpuscular Hemoglobin Concent 32, Red Cell Distribution Width 14.2, Platelet Count 176, Mean Platelet Volume 9.7, Immature Granulocyte % (Auto) 0, Neutrophils (%) (Auto) 64, Lymphocytes (%) (Auto) 21, Monocytes (%) (Auto) 8, Eosinophils (%) (Auto) 7, Basophils (%) (Auto) 1, Neutrophils # (Auto) 4.2, Lymphocytes # (Auto) 1.4, Monocytes # (Auto) 0.5, Eosinophils # (Auto) 0.4H, Basophils # (Auto) 0.1, Immature Granulocyte # (Auto) 0.0, Sodium Level 137, Potassium Level 4.4, Chloride Level 99, Carbon Dioxide Level 31, Anion Gap 7, Blood Urea Nitrogen 14, Creatinine 0.84, Estimat Glomerular Filtration Rate 75, BUN/Creatinine Ratio 17, Glucose Level 196H, Calcium Level 9.0, Corrected Calcium 9.9, Total Bilirubin 0.5, Aspartate Amino Transf (AST/SGOT) 10, Alanine Aminotransferase (ALT/SGPT) 11, Alkaline Phosphatase 84, Total Protein 5.8L, Albumin 2.9L 02/14/23 10:57: Glucometer 180H Microbiology 02/09/23 MRSA Screen - Final, Complete MRSA not isolated 02/08/23 Urine Culture - Final, Complete NO GROWTH 02/08/23 Blood Culture - Final, Complete No growth 02/08/23 Gram Stain - Final, Complete 02/08/23 Wound Culture - Final, Complete Mixed Bacterial [place] Klebsiella/Enterobacter spec Staph, Coag Neg (CORE BAKER) Corynebacterium species Home Meds Active Cefdinir 300 Mg Capsule 300 Mg PO BID Melatonin 3 Mg Tablet 6 Mg PO HS PRN Lotrimin AF (Miconazole Nitrate) 2 % Powder 0 Gm TOP BID twice daily Ondansetron Odt (Ondansetron) 4 Mg Tab.rapdis 4 Mg PO Q4HR PRN Losartan Potassium 50 Mg Tablet 50 Mg PO DAILY Rosuvastatin Calcium 20 Mg Tablet 20 Mg PO DAILY Tresiba Flextouch U-100 (Insulin Degludec) 100 Unit/Ml (3 Ml) Insuln.pen 40 Unit SQ HS Furosemide 40 Mg Tablet 40 Mg PO DAILY Amlodipine Besylate 5 Mg Tablet 5 Mg PO DAILY Topiramate 50 Mg Tablet 50 Mg PO DAILY Clonazepam 1 Mg Tablet 1 Mg PO TID PRN Vitamin D2 (Ergocalciferol (Vitamin D2)) 1,250 Mcg (25617 Unit) Capsule 1,250 Mcg PO WED,SAT Gabapentin 800 Mg Tablet 1,200 Mg PO HS Metformin HCl 1,000 Mg Tablet 1,000 Mg PO BID Mounjaro (Tirzepatide) 2.5 Mg/0.5 Ml Pen.injctr 2.5 Mg SQ SAT Buspirone HCl 30 Mg Tablet 30 Mg PO BID Bupropion HCl Sr (Bupropion HCl) 100 Mg Tablet.er 100 Mg PO DAILY Gabapentin 800 Mg Tablet 800 Mg PO TID Novolog Flexpen (Insulin Aspart) 100 Unit/Ml (3 Ml) Solution 16 Units SC TIDAC Discharge Instructions Discharge Diet: ADA Diet Discharge Physical Examination Vital Signs Vital Signs Date Time Temp Pulse Resp B/P (MAP) Pulse Ox O2 Delivery O2 Flow Rate FiO2 02/14/23 07:52 36.4 60 17 131/60 (83) 91 Nasal Cannula 3.00 02/11/23 15:37 36 Allergies: Coded Allergies: exenatide (Unverified Allergy, Unknown, 03/24/22) methylphenidate (Unverified Allergy, Unknown, 03/24/22) morphine (Verified Adverse Reaction, Mild, NAUSEA, 05/19/16) sulfamethoxazole (Unverified Adverse Reaction, Unknown, 10/13/22) HALLUCINATIONS trimethoprim (Unverified Adverse Reaction, Unknown, 10/13/22) HALLUCINATIONS Discharge Summary Date of Admission Feb 12, 2023 at 12:13 Date of Discharge Discharge Date: Feb 14, 2023 HERMILA SWAIN DO Feb 14, 2023 11:08
--- NOTE | 2023-02-14 11:31 | Occupational Ther Daily Note ---
OT Current Status-Daily Note Subjective Up in recliner, agreeable to shower Mental Status/Objective Patient Orientation: Person, Place, Time, Situation Attachments: IV (port only) ADL-Treatment Therapy Code Descriptions/Definitions Functional [place] Measure: 0=Not Assessed/NA 4=Minimal Assistance 1=Total Assistance 5=Supervision or Setup 2=Maximal Assistance 6=Modified [place] 3=Moderate Assistance 7=Complete IndependenceSCALE: Activities may be completed with or without assistive devices. 2-Bivzwamyur-onbtnjq completes the activity by him/herself with no assistance from a helper. 5-Set-up or Clean-up Assistance-helper sets up or cleans up; patient completes activity. [place] assists only prior to or following the activity. 4-Supervision or Touching Assistance-helper provides verbal cues and/or t ouching/steadying and/or contact guard assistance as patient completes activity. Assistance may be provided throughout the activity or intermittently. 3-Partial/Moderate Assistance-helper does LESS THAN HALF the effort. [place] lifts, holds or supports trunk or limbs, but provides less than half the effort. 2-Substantial/Maximal Assistance-helper does MORE THAN HALF the effort. [place] lifts or holds trunk or limbs and provides more than half the effort. 1-Slqhbhmyq-sasiam does ALL the effort. Patient does none of the effort to complete the activity. Or, the assistance of 2 or more helpers is required for the patient to complete the activity. If activity was not attempted, code reason: 7-Patient Refused. 9-Not Applicable-not attempted and the patient did not perform the activity before the current illness, exacerbation or injury. 10-Not Attempted due to Environmental Limitations-(lack of equipment, weather restraints, etc.). 88-Not Attempted due to Medical Conditions or Safety Concerns. Eating (QC): 6 Oral Hygiene (QC): 5 (required intiation cues to perform and encouragement for independence) Bathing Location: L Arm, R Arm, L Upper Leg, R Upper Leg, L Lower Leg (including foot), R Lower Leg (including foot), Chest, Abdomen, Buttocks (see toilet hygiene), Perineal Area (see toielt hygiene) Shower/Bathe Self (QC): 3 (Recieves assitance at home form ex-, OT compmleted instruciton for transfers and safet in shower, Ot perfomed LE below knee, back and hair. Patient required encouragetment to perform max and front half of body, initailly states she can not do it) Upper Body Dressing (QC): 4 Lower Body Dressing (QC): 4 On/Off Footwear: 3 (doffs but makes no attempt to don) Toileting Hygiene (QC): 2 (refuses front max care, staddles legs and says " Wipe " OT encourages patient participation,, jhonathan reports she has a tool at home that she uses and because it isnt here she neds someone to do it) Toilet Transfer (QC): 4 (FWW and 02 safety cues) Education OT Patient Education: Correct positioning, Energy conservation, Modified ADL techniques, Progress toward Goal/Update tx plan, Purpose of tx/functional activities, Reviewed precautions, Rehab process, Safety issues, Transfer techniques, Use of adapted equipment Teaching Recipient: Patient Teaching Methods: Demonstration Response to Teaching: Verbalize Understanding, Reinforcement Needed OT Half-Way Goals Glaze Wiper Goals Eating (QC): 6 Oral Hygiene (QC): 6 Toileting Hygiene (QC): 5 Shower/Bathe Self (QC): 4 Upper Body Dressing (QC): 6 Lower Body Dressing (QC): 4 On/Off Footwear (QC): 3 1=Demonstrate adherence to instructed precautions during ADL tasks. 2=Patient will verbalize/demonstrate understanding of assistive devices/modifications for ADL. 3=Patient will improve strength/tolerance for activity to enable patient to perform ADL's. OT Education/Plan Problem List/Assessment Assessment: Decreased Activ Tolerance, Impaired Self-Care Skills Discharge Recommendations Plan/Recommendations: Continue POC Treatment Plan/Plan of Care Treatment,Training & Education: Yes Patient would benefit from OT for education, treatment and training to promote independence in ADL's, mobility, safety and/or upper extremity function for ADL's. Plan of Care: ADL Retraining, Functional Mobility, Group Exercise/Act as Ind, UE Funct Exercise/Act Treatment Duration: Feb 19, 2023 Frequency: 3 times per week (3-5 TIMES PER WEEK) Estimated Hrs Per Day: .25 hour per day Agreement: Yes Rehab Potential: Guarded Patient returned to recliner, RN notified of completed shower all needs met Time Start Time: 09:50 Stop Time: 10:20 DATE: Feb 14, 2023 Total Time Billed (hr/min): 30 Billed Treatment Time ADL 2 30 min ELISABETH CASILLAS OT Feb 14, 2023 11:31
[2023-02-14] MEDS: cefTRIAXone IV/IM 1,000 MG in NS (IVPB) 50 ML IV SCH (11:48)
[2023-02-14] MEDS: ACETAMINOPHEN 500 MG TAB (TYLENOL) PO PRN ×2 (15:29→23:53)
[2023-02-14] MEDS: HYPOCHLOROUS ACID/NaCl (VASHE) 250 ML IR SCH (15:30)
[2023-02-14] MEDS: MELATONIN 3 MG TABLET PO PRN (20:45)
[2023-02-14] MEDS: IBUPROFEN TABLET 200 MG TAB PO PRN (20:46)
[2023-02-15 04:07] VITALS: BP 146/64
[2023-02-15] MEDS: inSUlin ASPART (NovoLOG) 1 UNIT/0.01 ML (CHARGE PER UNIT) SC SCH ×8 (05:51→20:53)
[2023-02-15 05:59] LABS: BASOPHILS # (AUTO) 0.1 10^3/uL (0.0-0.1); BASOPHILS % (AUTO) 1 % (0-10); EOSINOPHILS # (AUTO) 0.4 10^3/uL (0.0-0.3); EOSINOPHILS % (AUTO) 6 % (0-10); HEMATOCRIT 43 % (35-52); LYMPHOCYTES # (AUTO) 1.5 10^3/uL (1.0-4.0); LYMPHOCYTES % (AUTO) 24 % (12-44); MEAN CORPUSCULAR HEMOGLOBIN 29 pg (25-34); MEAN CORPUSCULAR HGB CONC 33 g/dL (32-36); MEAN CORPUSCULAR VOLUME 88 fL (80-99); MEAN PLATELET VOLUME 9.8 fL (9.0-12.2); MONOCYTES # (AUTO) 0.4 10^3/uL (0.0-1.0); MONOCYTES % (AUTO) 7 % (0-12); NEUTROPHILS # (AUTO) 4.1 10^3/uL (1.8-7.8); NEUTROPHILS % (AUTO) 63 % (42-75); PLATELET COUNT 184 10^3/uL (130-400); WHITE BLOOD COUNT 6.5 10^3/uL (4.3-11.0)
[2023-02-15 06:57] LABS: ALBUMIN 3.1 GM/DL (3.2-4.5); BILIRUBIN,TOTAL 0.4 MG/DL (0.1-1.0); CALCIUM 9.4 MG/DL (8.5-10.1); CREATININE SERUM 0.85 MG/DL (0.60-1.30); POTASSIUM 4.5 MMOL/L (3.6-5.0); TOTAL PROTEIN 6.1 GM/DL (6.4-8.2)
[2023-02-15 07:46] VITALS: BP 197/81
[2023-02-15] MEDS: busPIRone 15 MG (BUSPAR) TABLET PO SCH ×2 (09:22→20:52)
[2023-02-15] MEDS: GABAPENTIN 400 MG (NEURONTIN) CAP PO SCH ×3 (09:23→20:52)
[2023-02-15] MEDS: buPROPion SR 100 MG (WELLBUTRIN SR) TAB PO SCH (09:23)
[2023-02-15] MEDS: ROSUVASTATIN 20 MG (CRESTOR) TABLET PO SCH (09:23)
[2023-02-15] MEDS: toPIRamate 25 MG (TOPAMAX) TAB PO SCH (09:23)
[2023-02-15] MEDS: amLODIPine 5 MG (NORVASC) TAB PO SCH (09:23)
[2023-02-15] MEDS: LOSARTAN 50 MG (COZAAR) TAB PO SCH (09:23)
[2023-02-15] MEDS: cefTRIAXone IV/IM 1,000 MG in NS (IVPB) 50 ML IV SCH (09:24)
[2023-02-15] MEDS: MICONAZOLE 2% POWDER (DESENEX AF) 90 GM TOP SCH ×2 (09:24→20:53)
--- NOTE | 2023-02-15 09:46 | Progress Note - Hospitalist ---
Subjective HPI/CC On Admission Date Seen by Provider: Feb 15, 2023 Time Seen by Provider: 09:00 Subjective/Events-last exam Doing well Ambulating well with therapy Insurance denied SNF so will DC on tomorrow No pain reported Review of Systems General: Fatigue, Malaise Pulmonary: Dyspnea Objective Exam Vital Signs Vital Signs Date Time Temp Pulse Resp B/P (MAP) Pulse Ox O2 Delivery O2 Flow Rate FiO2 02/16/23 04:00 35.9 58 20 155/84 (107) 97 Nasal Cannula 2.00 02/11/23 15:37 36 Capillary Refill : Less Than 3 Seconds General Appearance: No Apparent Distress, WD/WN, Chronically ill Respiratory: Lungs Clear, Normal Breath Sounds Cardiovascular: Regular Rate, Rhythm Neurologic/Psychiatric: Alert, Oriented x3, No Motor/Sensory Deficits, Normal Mood/Affect Results/Procedures Lab Laboratory Tests 02/15/23 05:44 Patient resulted labs reviewed. Assessment/Plan Assessment and Plan Assess & Plan/Chief Complaint (1) Cellulitis of right lower extremity Status: Acute Assessment & Plan: - Continue IV antibiotics, elevate legs, d/c IVFs -Continue PT (2) Hypertension Status: Chronic Assessment & Plan: - Continue home meds Qualifiers: Qualified Codes: I10 - Essential (primary) hypertension (3) Type 2 diabetes mellitus, with long-term current use of insulin Status: Chronic Assessment & Plan: - SSI, accuchecks ACHS Qualifiers: Qualified Codes: E11.65 - Type 2 diabetes mellitus with hyperglycemia; Z79.4 - correction (current) use of insulin (4) Hypoxia Status: Acute Assessment & Plan: - IS, out of bed, PT (5) Physical debility Status: Acute Assessment & Plan: - Patient interested in SNF do to increase falls and weakness -D/C eulalia today, 02/11 -PT to increase strength and mobility Plan: DC home tomorrow on HERMILA SWAIN DO Feb 15, 2023 09:46
--- NOTE | 2023-02-15 10:01 | Physical Therapy Daily Note ---
PT Daily Note-Current Subjective Patient agrees to PT. Very emotional this a.m. Pain Section J - Health Conditions 1. Rarely or not at all 2. Occasionally 3. Frequently 4. Almost constantly 8. Unable to answer Pain Effect on Sleep: 1 Pain Interference with Therapy: 1 Pain Interference w/Day-to-Day: 1 Mental Status Patient Orientation: Person, Time, Situation Attachments: Oxygen Transfers SCALE: Activities may be completed with or without assistive devices. 8-Szgwyonhlz-mllucim completes the activity by him/herself with no assistance from a helper. 5-Set-up or Clean-up Assistance-helper sets up or cleans up; patient completes activity. [place] assists only prior to or following the activity. 4-Supervision or Touching Assistance-helper provides verbal cues and/or touching/steadying and/or contact guard assistance as patient completes activity. Assistance may be provided throughout the activity or intermittently. 3-Partial/Moderate Assistance-helper does LESS THAN HALF the effort. [place] lifts, holds or supports trunk or limbs, but provides less than half the effort. 2-Substantial/Maximal Assistance-helper does MORE THAN HALF the effort. [place] lifts or holds trunk or limbs and provides more than half the effort. 4-Ivhlmrzpk-xpcuex does ALL the effort. Patient does none of the effort to complete the activity. Or, the assistance of 2 or more helpers is required for the patient to complete the activity. If activity was not attempted, code reason: 7-Patient Refused. 9-Not Applicable-not attempted and the patient did not perform the activity b efore the current illness, exacerbation or injury. 10-Not Attempted due to Environmental Limitations-(lack of equipment, weather restraints, etc.). 88-Not Attempted due to Medical Conditions or Safety Concerns. Sit to Stand (QC): 4 Toilet Transfer (QC): 4 Gait Training Distance: 250' Walk 10 feet (QC): 4 Walk 50 ft with 2 Turns(QC): 4 Walk 150 ft (QC): 4 Gait Assistive Device: FWW slow, steady gait sequence Assessment Patient tolerated treatment well and remains up in recliner. PT to continue to increase activity as tolerated by patient. PT Half-Way Goals Knife Changer Goals PT Half-Way Goals Time Frame: Feb 26, 2023 Roll Left & Right (QC): 6 Sit to Lying (QC): 6 Lying-Sitting on Side/Bed(QC): 6 Sit to Stand (QC): 6 Chair/Cdr-kz-Jsyjp Xfer(QC): 6 Toilet Transfer (QC): 6 Does the Patient Walk: Yes Walk 10 feet (QC): 5 Walk 50ft with 2 Turns (QC): 5 Walk 150 ft (QC): 5 PT Plan Treatment/Plan Treatment Plan: Continue Plan of Care Treatment Plan: Bed Mobility, Education, Functional Activity Garrick, Functional Strength, Gait, Safety, Therapeutic Exercise, Transfers Treatment Duration: Feb 26, 2023 Frequency: 6 times per week Estimated Hrs Per Day: .25 hour per day Patient and/or Family Agrees t: Yes Time Time In: 915 Time Out: 931 DATE: Feb 15, 2023 Total Billed Treatment Time: 16 Total Billed Treatment 1 visit FA 16 min CAILIN COLEY PT Feb 15, 2023 10:01
[2023-02-15 11:04] VITALS: BP 197/73
--- NOTE | 2023-02-15 14:16 | Occupational Ther Daily Note ---
OT Current Status-Daily Note Subjective Patient resistive to treatment until encouraged by male student Mental Status/Objective Patient Orientation: Situation ADL-Treatment Therapy Code Descriptions/Definitions Functional [place] Measure: 0=Not Assessed/NA 4=Minimal Assistance 1=Total Assistance 5=Supervision or Setup 2=Maximal Assistance 6=Modified [place] 3=Moderate Assistance 7=Complete IndependenceSCALE: Activities may be completed with or without assistive devices. 2-Tlhogwmpgi-xqnhegx completes the activity by him/herself with no assistance from a helper. 5-Set-up or Clean-up Assistance-helper sets up or cleans up; patient completes activity. [place] assists only prior to or following the activity. 4-Supervision or Touching Assistance-helper provides verbal cues and/or touching/steadying and/or contact guard assistance as patient completes activity. Assistance may be provided throughout the activity or intermittently. 3-Partial/Moderate Assistance-helper does LESS THAN HALF the effort. [place] lifts, holds or supports trunk or limbs, but provides less than half the effort. 2-Substantial/Maximal Assistance-helper does MORE THAN HALF the effort. [place] lifts or holds trunk or limbs and provides more than half the effort. 7-Wykatnipm-klfvip does ALL the effort. Patient does none of the effort to complete the activity. Or, the assistance of 2 or more helpers is required for the patient to complete the activity. If activity was not attempted, code reason: 7-Patient Refused. 9-Not Applicable-not attempted and the patient did not perform the activity before the current illness, exacerbation or injury. 10-Not Attempted due to Environmental Limitations-(lack of equipment, weather restraints, etc.). 88-Not Attempted due to Medical Conditions or Safety Concerns. On/Off Footwear: 3 (Pt agrees to pull sock on snuggly prior to standing) no change in ADLS Other Treatment Sit/stand timed intervals of 1:30-1:20 seconds w/ varied RB during sets.Standing duration 3 minutes. Education OT Patient Education: Correct positioning, Energy conservation, Exercise program, Progress toward Goal/Update tx plan, Purpose of tx/functional activities, Reviewed precautions, Rehab process, Safety issues, Transfer techniques Teaching Recipient: Patient Teaching Methods: Demonstration, Discussion Response to Teaching: Verbalize Understanding, Reinforcement Needed OT [facility] Goals Meat Scrubber Goals Eating (QC): 6 Oral Hygiene (QC): 6 Toileting Hygiene (QC): 5 Shower/Bathe Self (QC): 4 Upper Body Dressing (QC): 6 Lower Body Dressing (QC): 4 On/Off Footwear (QC): 3 1=Demonstrate adherence to instructed precautions during ADL tasks. 2=Patient will verbalize/demonstrate understanding of assistive devices/modifications for ADL. 3=Patient will improve strength/tolerance for activity to enable patient to perform ADL's. OT Education/Plan Problem List/Assessment Assessment: Decreased Activ Tolerance, Decreased UE Strength, Impaired Coordination, Impaired Funct Balance, Impaired Self-Care Skills Discharge Recommendations Plan/Recommendations: Continue POC Treatment Plan/Plan of Care Treatment,Training & Education: Yes Patient would benefit from OT for education, treatment and training to promote independence in ADL's, mobility, safety and/or upper extremity function for ADL's. Plan of Care: ADL Retraining, Functional Mobility, Group Exercise/Act as Ind, UE Funct Exercise/Act Treatment Duration: Feb 19, 2023 Frequency: 3 times per week (3-5 TIMES PER WEEK) Estimated Hrs Per Day: .25 hour per day Agreement: Yes Rehab Potential: Guarded Time Start Time: 09:45 Stop Time: 10:02 DATE: Feb 15, 2023 Total Time Billed (hr/min): 17 Billed Treatment Time EX 17 ELISABETH CASILLAS OT Feb 15, 2023 14:16
[2023-02-15] MEDS: IBUPROFEN TABLET 200 MG TAB PO PRN ×2 (15:49→20:52)
[2023-02-15] MEDS: ACETAMINOPHEN 500 MG TAB (TYLENOL) PO PRN (15:50)
[2023-02-15 15:58] VITALS: BP 169/74
[2023-02-15 20:04] VITALS: BP 151/74
[2023-02-15] MEDS: MELATONIN 3 MG TABLET PO PRN (20:53)
[2023-02-15 23:35] VITALS: BP 169/77
[2023-02-16 04:00] VITALS: BP 155/84
[2023-02-16 06:13] LABS: BASOPHILS # (AUTO) 0.1 10^3/uL (0.0-0.1); BASOPHILS % (AUTO) 1 % (0-10); EOSINOPHILS # (AUTO) 0.4 10^3/uL (0.0-0.3); EOSINOPHILS % (AUTO) 6 % (0-10); HEMATOCRIT 42 % (35-52); HEMOGLOBIN 13.6 g/dL (11.5-16.0); LYMPHOCYTES # (AUTO) 1.5 10^3/uL (1.0-4.0); LYMPHOCYTES % (AUTO) 22 % (12-44); MEAN CORPUSCULAR HEMOGLOBIN 29 pg (25-34); MEAN CORPUSCULAR HGB CONC 32 g/dL (32-36); MEAN CORPUSCULAR VOLUME 89 fL (80-99); MEAN PLATELET VOLUME 9.9 fL (9.0-12.2); MONOCYTES # (AUTO) 0.5 10^3/uL (0.0-1.0); MONOCYTES % (AUTO) 8 % (0-12); NEUTROPHILS # (AUTO) 4.3 10^3/uL (1.8-7.8); NEUTROPHILS % (AUTO) 63 % (42-75); PLATELET COUNT 200 10^3/uL (130-400); WHITE BLOOD COUNT 6.8 10^3/uL (4.3-11.0)
[2023-02-16 06:55] LABS: POTASSIUM 4.3 MMOL/L (3.6-5.0)
[2023-02-16 06:56] LABS: CALCIUM 9.2 MG/DL (8.5-10.1)
[2023-02-16 06:59] LABS: BILIRUBIN,TOTAL 0.4 MG/DL (0.1-1.0)
[2023-02-16 07:01] LABS: CREATININE SERUM 0.78 MG/DL (0.60-1.30)
[2023-02-16 07:23] VITALS: BP 186/83
[2023-02-16] MEDS: inSUlin ASPART (NovoLOG) 1 UNIT/0.01 ML (CHARGE PER UNIT) SC SCH ×7 (07:49→20:38)
[2023-02-16] MEDS: ROSUVASTATIN 20 MG (CRESTOR) TABLET PO SCH (07:50)
[2023-02-16] MEDS: amLODIPine 5 MG (NORVASC) TAB PO SCH (07:50)
[2023-02-16] MEDS: GABAPENTIN 400 MG (NEURONTIN) CAP PO SCH ×3 (07:50→20:39)
[2023-02-16] MEDS: busPIRone 15 MG (BUSPAR) TABLET PO SCH ×2 (07:50→20:38)
[2023-02-16] MEDS: buPROPion SR 100 MG (WELLBUTRIN SR) TAB PO SCH (07:50)
[2023-02-16] MEDS: LOSARTAN 50 MG (COZAAR) TAB PO SCH (07:50)
[2023-02-16] MEDS: toPIRamate 25 MG (TOPAMAX) TAB PO SCH (07:50)
[2023-02-16] MEDS: MICONAZOLE 2% POWDER (DESENEX AF) 90 GM TOP SCH ×2 (07:51→20:38)
[2023-02-16] MEDS: HYPOCHLOROUS ACID/NaCl (VASHE) 250 ML IR SCH (07:51)
[2023-02-16 11:34] VITALS: BP 184/75
--- NOTE | 2023-02-16 11:35 | Occ Therapy Progress Note ---
Therapy Progress Note OT ATTEMPTED SESSION EARLY THIS AM, PATIENT IN SHOWER W/ STAFF, OT RETURNED LATE MORNING AND PATIENT DECLINED THERAPY TODAY, PATIENT REPORTS STATUS OF DC PLANNING. ELISABETH CASILLAS OT Feb 16, 2023 11:35
[2023-02-16] MEDS: IBUPROFEN TABLET 200 MG TAB PO PRN ×2 (11:40→20:38)
[2023-02-16] MEDS: ACETAMINOPHEN 500 MG TAB (TYLENOL) PO PRN (11:40)
--- NOTE | 2023-02-16 11:57 | Progress Note - Hospitalist ---
Subjective HPI/CC On Admission Date Seen by Provider: Feb 16, 2023 Time Seen by Provider: 11:00 Subjective/Events-last exam Not able to go home due to concerns about her inability to manage herself Conversation with daughter in hallway and she said she couldn't take her home since she and her 3 kids were being evicted Medicaid process started Insurance will not pay for SNF so needs retirement care at [place] Review of Systems General: Fatigue Objective Exam Vital Signs Vital Signs Date Time Temp Pulse Resp B/P (MAP) Pulse Ox O2 Delivery O2 Flow Rate FiO2 02/17/23 04:33 36.8 86 16 172/76 (108) 90 Room Air 02/16/23 20:00 2.00 02/11/23 15:37 36 Capillary Refill : Less Than 3 Seconds General Appearance: No Apparent Distress, WD/WN, Chronically ill, Obese Respiratory: Lungs Clear, Normal Breath Sounds Cardiovascular: Regular Rate, Rhythm Neurologic/Psychiatric: Alert, Oriented x3 Results/Procedures Lab Laboratory Tests 02/16/23 05:30 Patient resulted labs reviewed. Assessment/Plan Assessment and Plan Assess & Plan/Chief Complaint (1) Cellulitis of right lower extremity Status: Acute Assessment & Plan: - Continue IV antibiotics, elevate legs, d/c IVFs -Continue PT (2) Hypertension Status: Chronic Assessment & Plan: - Continue home meds Qualifiers: Qualified Codes: I10 - Essential (primary) hypertension (3) Type 2 diabetes mellitus, with long-term current use of insulin Status: Chronic Assessment & Plan: - SSI, accuchecks ACHS Qualifiers: Qualified Codes: E11.65 - Type 2 diabetes mellitus with hyperglycemia; Z79.4 - [facility] (current) use of insulin (4) Hypoxia Status: Acute Assessment & Plan: - IS, out of bed, PT (5) Physical debility Status: Acute Assessment & Plan: - Patient interested in SNF do to increase falls and weakness -D/C eulalia castanon, 02/11 -PT to increase strength and mobility Plan: DC to [place]? HERMILA SWAIN DO Feb 16, 2023 11:57
--- NOTE | 2023-02-16 12:02 | Physical Therapy Daily Note ---
PT Daily Note-Current Subjective Patient in the BR upon PT arrival, agreeable to treatment. Patient rates pain at 6/10 in the right LE Pain Section J - Health Conditions 1. Rarely or not at all 2. Occasionally 3. Frequently 4. Almost constantly 8. Unable to answer Pain Effect on Sleep: 1 Pain Interference with Therapy: 1 Pain Interference w/Day-to-Day: 1 Mental Status Patient Orientation: Person, Place, Time, Situation Transfers SCALE: Activities may be completed with or without assistive devices. 1-Tdemiyzbkb-oszbxoy completes the activity by him/herself with no assistance from a helper. 5-Set-up or Clean-up Assistance-helper sets up or cleans up; patient completes activity. [place] assists only prior to or following the activity. 4-Supervision or Touching Assistance-helper provides verbal cues and/or touching/steadying and/or contact guard assistance as patient completes activity. Assistance may be provided throughout the activity or intermittently. 3-Partial/Moderate Assistance-helper does LESS THAN HALF the effort. [place] lifts, holds or supports trunk or limbs, but provides less than half the effort. 2-Substantial/Maximal Assistance-helper does MORE THAN HALF the effort. [place] lifts or holds trunk or limbs and provides more than half the effort. 2-Hjjohhokb-qezwks does ALL the effort. Patient does none of the effort to complete the activity. Or, the assistance of 2 or more helpers is required for the patient to complete the activity. If activity was not attempted, code reason: 7-Patient Refused. 9-Not Applicable-not attempted and the patient did not perform the activity before the current illness, exacerbation or injury. 10-Not Attempted due to Environmental Limitations-(lack of equipment, weather restraints, etc.). 88-Not Attempted due to Medical Conditions or Safety Concerns. Roll Left & Right (QC): 4 Sit to Lying (QC): 4 Lying to Sitting/Side of Bed(Q: 4 Sit to Stand (QC): 6 Chair/Uoi-au-Zrerc Xfer(QC): 6 Toilet Transfer (QC): 6 Gait Training Does the Patient Walk?: Yes Distance: 350 Walk 10 feet (QC): 4 Walk 50 ft with 2 Turns(QC): 4 Walk 150 ft (QC): 4 Gait Assistive Device: FWW Assessment Current Status: Good Progress Patient tolerated treatment well. Demonstrates independence with transfers from chair, SBA for bed mobility. Patient ambulates 350 feet with FWW, with SBA and verbal cues for safety, progression, conservation of energy. Patient in chair post treatment with all needs met, nursing notified, call light in hand and RT in the room. PT Assembly Mechanic Goals Custodial Goals PT Assembly Mechanic Goals Time Frame: Feb 26, 2023 Roll Left & Right (QC): 6 Sit to Lying (QC): 6 Lying-Sitting on Side/Bed(QC): 6 Sit to Stand (QC): 6 Chair/Zmb-or-Lqmls Xfer(QC): 6 Toilet Transfer (QC): 6 Does the Patient Walk: Yes Walk 10 feet (QC): 5 Walk 50ft with 2 Turns (QC): 5 Walk 150 ft (QC): 5 PT Plan Treatment/Plan Treatment Plan: Continue Plan of Care Treatment Plan: Bed Mobility, Education, Functional Activity Garrick, Functional Strength, Gait, Safety, Therapeutic Exercise, Transfers Treatment Duration: Feb 26, 2023 Frequency: 6 times per week Estimated Hrs Per Day: .25 hour per day Patient and/or Family Agrees t: Yes Safety Risks/Education Patient Education: Gait Training, Transfer Techniques Teaching Recipient: Patient Teaching Methods: Demonstration, Discussion Response to Teaching: Verbalize Understanding, Return Demonstration Time Time In: 1020 Time Out: 1035 DATE: Feb 16, 2023 Total Billed Treatment Time: 15 Total Billed Treatment Visit, JAMI Reilly PT Feb 16, 2023 12:02
[2023-02-16 16:00] VITALS: BP 183/79
[2023-02-16] MEDS: KETOROLAC 30 MG/ML VIAL IVP PRN (16:08)
[2023-02-16 20:08] VITALS: BP 179/72
[2023-02-16] MEDS: MELATONIN 3 MG TABLET PO PRN (20:39)
[2023-02-16 23:26] VITALS: BP 170/72
[2023-02-17 04:33] VITALS: BP 172/76
[2023-02-17] MEDS: inSUlin ASPART (NovoLOG) 1 UNIT/0.01 ML (CHARGE PER UNIT) SC SCH ×7 (05:10→21:47)
[2023-02-17] MEDS: IBUPROFEN TABLET 200 MG TAB PO PRN ×2 (06:31→20:26)
[2023-02-17 07:40] VITALS: BP 204/88
[2023-02-17 07:44] LABS: BASOPHILS # (AUTO) 0.1 10^3/uL (0.0-0.1); BASOPHILS % (AUTO) 1 % (0-10); EOSINOPHILS # (AUTO) 0.4 10^3/uL (0.0-0.3); EOSINOPHILS % (AUTO) 5 % (0-10); HEMATOCRIT 48 % (35-52); HEMOGLOBIN 15.5 g/dL (11.5-16.0); LYMPHOCYTES # (AUTO) 1.4 10^3/uL (1.0-4.0); LYMPHOCYTES % (AUTO) 19 % (12-44); MEAN CORPUSCULAR HEMOGLOBIN 29 pg (25-34); MEAN CORPUSCULAR HGB CONC 33 g/dL (32-36); MEAN CORPUSCULAR VOLUME 88 fL (80-99); MEAN PLATELET VOLUME 9.7 fL (9.0-12.2); MONOCYTES # (AUTO) 0.5 10^3/uL (0.0-1.0); MONOCYTES % (AUTO) 6 % (0-12); NEUTROPHILS % (AUTO) 69 % (42-75); PLATELET COUNT 210 10^3/uL (130-400); WHITE BLOOD COUNT 7.3 10^3/uL (4.3-11.0)
[2023-02-17 08:06] LABS: ALBUMIN 3.4 GM/DL (3.2-4.5); BILIRUBIN,TOTAL 0.5 MG/DL (0.1-1.0); CALCIUM 9.7 MG/DL (8.5-10.1); CREATININE SERUM 0.86 MG/DL (0.60-1.30); POTASSIUM 4.4 MMOL/L (3.6-5.0); TOTAL PROTEIN 6.6 GM/DL (6.4-8.2)
[2023-02-17] MEDS: buPROPion SR 100 MG (WELLBUTRIN SR) TAB PO SCH (08:27)
[2023-02-17] MEDS: LOSARTAN 50 MG (COZAAR) TAB PO SCH (08:27)
[2023-02-17] MEDS: ROSUVASTATIN 20 MG (CRESTOR) TABLET PO SCH (08:27)
[2023-02-17] MEDS: GABAPENTIN 400 MG (NEURONTIN) CAP PO SCH ×3 (08:27→20:25)
[2023-02-17] MEDS: amLODIPine 5 MG (NORVASC) TAB PO SCH (08:27)
--- NOTE | 2023-02-17 09:26 | Occupational Ther Daily Note ---
OT Current Status-Daily Note Subjective Up in chair agreeable to OT, reports not having a good night and a little cranky Mental Status/Objective Patient Orientation: Situation ADL-Treatment change soiled gown with gown allowing more privacy coverage. Therapy Code Descriptions/Definitions Functional [place] Measure: 0=Not Assessed/NA 4=Minimal Assistance 1=Total Assistance 5=Supervision or Setup 2=Maximal Assistance 6=Modified [place] 3=Moderate Assistance 7=Complete IndependenceSCALE: Activities may be completed with or without assistive devices. 5-Ilrtlkpfew-qffxopq completes the activity by him/herself with no assistance from a helper. 5-Set-up or Clean-up Assistance-helper sets up or cleans up; patient completes activity. [place] assists only prior to or following the activity. 4-Supervision or Touching Assistance-helper provides verbal cues and/or touching/steadying and/or contact guard assistance as patient completes activity. Assistance may be provided throughout the activity or intermittently. 3-Partial/Moderate Assistance-helper does LESS THAN HALF the effort. [place] lifts, holds or supports trunk or limbs, but provides less than half the effort. 2-Substantial/Maximal Assistance-helper does MORE THAN HALF the effort. [place] lifts or holds trunk or limbs and provides more than half the effort. 3-Qnhgahtmp-cbmibg does ALL the effort. Patient does none of the effort to complete the activity. Or, the assistance of 2 or more helpers is required for the patient to complete the activity. If activity was not attempted, code reason: 7-Patient Refused. 9-Not Applicable-not attempted and the patient did not perform the activity before the current illness, exacerbation or injury. 10-Not Attempted due to Environmental Limitations-(lack of equipment, weather restraints, etc.). 88-Not Attempted due to Medical Conditions or Safety Concerns. Eating (QC): 6 Oral Hygiene (QC): 5 Shower/Bathe Self (QC): 4 Upper Body Dressing (QC): 4 Lower Body Dressing (QC): 4 On/Off Footwear: 7 (already on) Toileting Hygiene (QC): 3 Toilet Transfer (QC): 4 Other Treatment Performed functional reach and visual scanning tasks in standing to improve IADL needs once home Education OT Patient Education: Correct positioning, Exercise program, Modified ADL techniques, Progress toward Goal/Update tx plan, Purpose of tx/functional activities, Reviewed precautions, Rehab process, Safety issues, Transfer techniques, Use of adapted equipment Teaching Recipient: Patient Teaching Methods: Demonstration Response to Teaching: Verbalize Understanding, Reinforcement Needed OT Academic Computing Director Goals Academic Computing Director Goals Eating (QC): 6 Oral Hygiene (QC): 6 Toileting Hygiene (QC): 5 Shower/Bathe Self (QC): 4 Upper Body Dressing (QC): 6 Lower Body Dressing (QC): 4 On/Off Footwear (QC): 3 1=Demonstrate adherence to instructed precautions during ADL tasks. 2=Patient will verbalize/demonstrate understanding of assistive devices/modifications for ADL. 3=Patient will improve strength/tolerance for activity to enable patient to per form ADL's. OT Education/Plan Problem List/Assessment Assessment: Decreased Activ Tolerance, Decreased Safety Aware, Impaired Coordination, Impaired I ADL's, Impaired Self-Care Skills Discharge Recommendations Plan/Recommendations: Continue POC Treatment Plan/Plan of Care Patient would benefit from OT for education, treatment and training to promote independence in ADL's, mobility, safety and/or upper extremity function for ADL's. Plan of Care: ADL Retraining, Functional Mobility, Group Exercise/Act as Ind, UE Funct Exercise/Act Treatment Duration: Feb 19, 2023 Frequency: 3 times per week (3-5 TIMES PER WEEK) Estimated Hrs Per Day: .25 hour per day Agreement: Yes Rehab Potential: Guarded Returned to recliner following session, all needs met Time Start Time: 08:50 Stop Time: 09:07 DATE: Feb 17, 2023 Total Time Billed (hr/min): 17 Billed Treatment Time ADL 17 min ELISABETH CASILLAS OT Feb 17, 2023 09:26
[2023-02-17] MEDS: MICONAZOLE 2% POWDER (DESENEX AF) 90 GM TOP SCH ×2 (09:34→21:47)
[2023-02-17] MEDS: toPIRamate 25 MG (TOPAMAX) TAB PO SCH (09:34)
[2023-02-17] MEDS: busPIRone 15 MG (BUSPAR) TABLET PO SCH ×2 (09:34→20:25)
[2023-02-17] MEDS ORDERED: ONDANSETRON 4 MG (ZOFRAN) ORAL DISSOLVE TAB PO PRN (09:45)
[2023-02-17] MEDS ORDERED: BISACODYL 10 MG SUPP (DULCOLAX) PR PRN (09:45)
[2023-02-17] MEDS ORDERED: ANTACID SUSP 30 ML UDC (MYLANTA) PO PRN (09:45)
[2023-02-17] MEDS ORDERED: diphenhydrAMINE 50 MG/ML INJ (BENADRYL) IVP PRN (09:45)
[2023-02-17] MEDS ORDERED: diphenhydrAMINE 25 MG TAB (BENADRYL) PO PRN (09:45)
[2023-02-17] MEDS ORDERED: ACETAMINOPHEN 325 MG TABLET PO PRN (09:45)
[2023-02-17] MEDS ORDERED: MELATONIN 3 MG TABLET PO PRN (09:45)
[2023-02-17] MEDS ORDERED: LACTULOSE SYRUP 10GM/15ML (ENULOSE) 30ML UDC PO PRN (09:45)
[2023-02-17] MEDS ORDERED: polyethylene glycoL POWDER 17 GM (MIRALAX) PACK PO PRN (09:45)
[2023-02-17] MEDS ORDERED: CALCIUM CARBONATE 500 MG (TUMS) TAB.CHEW PO PRN (09:45)
[2023-02-17] MEDS ORDERED: MILK OF MAGNESIA 400 MG/5 ML 30 ML UDC PO PRN (09:45)
[2023-02-17] MEDS ORDERED: ONDANSETRON 4 MG/2 ML (SDV) Z0FRAN IV PRN (09:45)
--- NOTE | 2023-02-17 09:58 | Physical Therapy Daily Note ---
PT Daily Note-Current Subjective Patient states, "I had a bad night." Does agree to PT. Pain Section J - Health Conditions 1. Rarely or not at all 2. Occasionally 3. Frequently 4. Almost constantly 8. Unable to answer Pain Effect on Sleep: 1 Pain Interference with Therapy: 1 Pain Interference w/Day-to-Day: 1 Transfers SCALE: Activities may be completed with or without assistive devices. 4-Zpdpjcblor-wyknhbd completes the activity by him/herself with no assistance from a helper. 5-Set-up or Clean-up Assistance-helper sets up or cleans up; patient completes activity. [place] assists only prior to or following the activity. 4-Supervision or Touching Assistance-helper provides verbal cues and/or touching/steadying and/or contact guard assistance as patient completes activity. Assistance may be provided throughout the activity or intermittently. 3-Partial/Moderate Assistance-helper does LESS THAN HALF the effort. [place] lifts, holds or supports trunk or limbs, but provides less than half the effort. 2-Substantial/Maximal Assistance-helper does MORE THAN HALF the effort. [place] lifts or holds trunk or limbs and provides more than half the effort. 3-Dqjfziwjs-vyalch does ALL the effort. Patient does none of the effort to complete the activity. Or, the assistance of 2 or more helpers is required for the patient to complete the activity. If activity was not attempted, code reason: 7-Patient Refused. 9-Not Applicable-not attempted and the patient did not perform the activity before the current illness, exacerbation or injury. 10-Not Attempted due to Environmental Limitations-(lack of equipment, weather restraints, etc.). 88-Not Attempted due to Medical Conditions or Safety Concerns. Sit to Stand (QC): 5 Gait Training Distance: 300' Walk 10 feet (QC): 5 Walk 50 ft with 2 Turns(QC): 5 Walk 150 ft (QC): 5 Gait Assistive Device: FWW safe and functional with no deviation Treatments Patient performed standing reaching exercises with OT as PT addressed dynamic standing balance which is good. Assessment Patient tolerated treatment well and remains up in recliner with needs met. Patient much improved on this date. PT Inspector [place] Goals Inspector [place] Goals PT Half-Way Goals Time Frame: Feb 26, 2023 Roll Left & Right (QC): 6 Sit to Lying (QC): 6 Lying-Sitting on Side/Bed(QC): 6 Sit to Stand (QC): 6 Chair/Rns-qk-Fkigg Xfer(QC): 6 Toilet Transfer (QC): 6 Does the Patient Walk: Yes Walk 10 feet (QC): 5 Walk 50ft with 2 Turns (QC): 5 Walk 150 ft (QC): 5 PT Plan Treatment/Plan Treatment Plan: Continue Plan of Care Treatment Plan: Bed Mobility, Education, Functional Activity Garrick, Functional Strength, Gait, Safety, Therapeutic Exercise, Transfers Treatment Duration: Feb 26, 2023 Frequency: 6 times per week Estimated Hrs Per Day: .25 hour per day Patient and/or Family Agrees t: Yes Time Time In: 853 Time Out: 910 DATE: Feb 17, 2023 Total Billed Treatment Time: 17 Total Billed Treatment 1 visit FA 17 min CAILIN COLEY PT Feb 17, 2023 09:58
[2023-02-17] MEDS ORDERED: LACTULOSE SYRUP 10GM/15ML (ENULOSE) 30ML UDC PO ONE (10:30)
[2023-02-17] MEDS ORDERED: LORazepam 0.5 MG (ATIVAN) TABLET PO PRN (10:30)
[2023-02-17] MEDS ORDERED: SENNA W/DOCUSATE (SENOKOT S) TABLET PO ONE (10:30)
--- NOTE | 2023-02-17 10:30 | Progress Note - Hospitalist ---
Subjective HPI/CC On Admission Date Seen by Provider: Feb 17, 2023 Time Seen by Provider: 10:30 Subjective/Events-last exam No major issues Increased anxiety Constipation so will give extra laxatives Awaiting appeal process Review of Systems General: Fatigue, Malaise Objective Exam Vital Signs Vital Signs Date Time Temp Pulse Resp B/P (MAP) Pulse Ox O2 Delivery O2 Flow Rate FiO2 02/18/23 00:00 36.5 62 18 172/70 (104) 93 Room Air 02/17/23 08:15 2.00 Capillary Refill : Less Than 3 Seconds General Appearance: No Apparent Distress, WD/WN, Chronically ill, Obese Respiratory: Lungs Clear, Normal Breath Sounds Cardiovascular: Regular Rate, Rhythm Neurologic/Psychiatric: Alert, Oriented x3 Results/Procedures Lab Laboratory Tests 02/17/23 07:26 02/17/23 07:39 Patient resulted labs reviewed. Assessment/Plan Assessment and Plan Assess & Plan/Chief Complaint (1) Cellulitis of right lower extremity Status: Acute Assessment & Plan: - Continue IV antibiotics, elevate legs, d/c IVFs -Continue PT (2) Hypertension Status: Chronic Assessment & Plan: - Continue home meds Qualifiers: Qualified Codes: I10 - Essential (primary) hypertension (3) Type 2 diabetes mellitus, with long-term current use of insulin Status: Chronic Assessment & Plan: - SSI, accuchecks ACHS Qualifiers: Qualified Codes: E11.65 - Type 2 diabetes mellitus with hyperglycemia; Z79.4 - [facility] (current) use of insulin (4) Hypoxia Status: Acute Assessment & Plan: - IS, out of bed, PT (5) Physical debility Status: Acute Assessment & Plan: - Patient interested in SNF do to increase falls and we akness -D/C eulalia today, 02/11 -PT to increase strength and mobility Plan: DC to [facility]? Clinical Quality Measures DVT/VTE Risk/Contraindication: Contraindications-Mechi: Other *list below* Other: leg cellulitis HERMILA SWAIN DO Feb 17, 2023 10:30
[2023-02-17] MEDS: ENOXAPARIN 40 MG/0.4 ML (LOVENOX) SYR SC SCH ×2 (10:31→21:48)
[2023-02-17 11:29] VITALS: BP 136/87
[2023-02-17 16:04] VITALS: BP 175/74
[2023-02-17 20:00] VITALS: BP 183/79
[2023-02-17] MEDS: SENNOSIDES 8.6 MG (SENOKOT) TAB PO SCH (20:25)
[2023-02-17] MEDS: DOCUSATE SODIUM 100 MG (COLACE) CAP PO SCH (20:25)
[2023-02-18] VITALS (7 sets, daily range): BP systolic 127–193; BP diastolic 69–85
[2023-02-18 05:42] LABS: BASOPHILS # (AUTO) 0.1 10^3/uL (0.0-0.1); BASOPHILS % (AUTO) 1 % (0-10); EOSINOPHILS # (AUTO) 0.4 10^3/uL (0.0-0.3); EOSINOPHILS % (AUTO) 5 % (0-10); HEMATOCRIT 43 % (35-52); HEMOGLOBIN 14.2 g/dL (11.5-16.0); LYMPHOCYTES # (AUTO) 1.8 10^3/uL (1.0-4.0); LYMPHOCYTES % (AUTO) 25 % (12-44); MEAN CORPUSCULAR HEMOGLOBIN 29 pg (25-34); MEAN CORPUSCULAR HGB CONC 33 g/dL (32-36); MEAN CORPUSCULAR VOLUME 87 fL (80-99); MEAN PLATELET VOLUME 9.9 fL (9.0-12.2); MONOCYTES # (AUTO) 0.5 10^3/uL (0.0-1.0); MONOCYTES % (AUTO) 8 % (0-12); NEUTROPHILS # (AUTO) 4.4 10^3/uL (1.8-7.8); NEUTROPHILS % (AUTO) 61 % (42-75); PLATELET COUNT 187 10^3/uL (130-400); WHITE BLOOD COUNT 7.2 10^3/uL (4.3-11.0)
[2023-02-18 06:04] LABS: ALBUMIN 3.3 GM/DL (3.2-4.5); BILIRUBIN,TOTAL 0.5 MG/DL (0.1-1.0); CALCIUM 9.2 MG/DL (8.5-10.1); CREATININE SERUM 0.84 MG/DL (0.60-1.30); POTASSIUM 4.3 MMOL/L (3.6-5.0); TOTAL PROTEIN 6.4 GM/DL (6.4-8.2)
[2023-02-18] MEDS: inSUlin ASPART (NovoLOG) 1 UNIT/0.01 ML (CHARGE PER UNIT) SC SCH ×7 (06:42→20:36)
[2023-02-18] MEDS: buPROPion SR 100 MG (WELLBUTRIN SR) TAB PO SCH (08:30)
[2023-02-18] MEDS: ROSUVASTATIN 20 MG (CRESTOR) TABLET PO SCH (08:30)
[2023-02-18] MEDS: LOSARTAN 50 MG (COZAAR) TAB PO SCH (08:30)
[2023-02-18] MEDS: amLODIPine 5 MG (NORVASC) TAB PO SCH (08:30)
[2023-02-18] MEDS: GABAPENTIN 400 MG (NEURONTIN) CAP PO SCH ×3 (08:30→20:16)
[2023-02-18] MEDS: toPIRamate 25 MG (TOPAMAX) TAB PO SCH (08:31)
[2023-02-18] MEDS: busPIRone 15 MG (BUSPAR) TABLET PO SCH ×2 (08:31→20:16)
[2023-02-18] MEDS: DOCUSATE SODIUM 100 MG (COLACE) CAP PO SCH ×2 (08:32→20:16)
[2023-02-18] MEDS: SENNOSIDES 8.6 MG (SENOKOT) TAB PO SCH ×2 (08:32→20:16)
[2023-02-18] MEDS: MICONAZOLE 2% POWDER (DESENEX AF) 90 GM TOP SCH ×2 (08:35→20:16)
[2023-02-18] MEDS: ENOXAPARIN 40 MG/0.4 ML (LOVENOX) SYR SC SCH ×2 (09:28→21:52)
[2023-02-18] MEDS: IBUPROFEN TABLET 200 MG TAB PO PRN ×2 (10:02→20:35)
--- NOTE | 2023-02-18 10:16 | Physical Therapy Daily Note ---
PT Daily Note-Current Subjective Patient agrees to PT. No c/o at this time. Pain Section J - Health Conditions 1. Rarely or not at all 2. Occasionally 3. Frequently 4. Almost constantly 8. Unable to answer Pain Effect on Sleep: 1 Pain Interference with Therapy: 1 Pain Interference w/Day-to-Day: 1 Mental Status Patient Orientation: Normal For Age Attachments: Oxygen Transfers SCALE: Activities may be completed with or without assistive devices. 2-Icznazxvps-tfkdhng completes the activity by him/herself with no assistance from a helper. 5-Set-up or Clean-up Assistance-helper sets up or cleans up; patient completes activity. [place] assists only prior to or following the activity. 4-Supervision or Touching Assistance-helper provides verbal cues and/or touching/steadying and/or contact guard assistance as patient completes activity. Assistance may be provided throughout the activity or intermittently. 3-Partial/Moderate Assistance-helper does LESS THAN HALF the effort. [place] lifts, holds or supports trunk or limbs, but provides less than half the effort. 2-Substantial/Maximal Assistance-helper does MORE THAN HALF the effort. [place] lifts or holds trunk or limbs and provides more than half the effort. 4-Bsgqobfti-fkbswd does ALL the effort. Patient does none of the effort to complete the activity. Or, the assistance of 2 or more helpers is required for the patient to complete the activity. If activity was not attempted, code reason: 7-Patient Refused. 9-Not Applicable-not attempted and the patient did not perform the activity before the current illness, exacerbation or injury. 10-Not Attempted due to Environmental Limitations-(lack of equipment, weather restraints, etc.). 88-Not Attempted due to Medical Conditions or Safety Concerns. Sit to Stand (QC): 5 Gait Training Distance: 300' Walk 10 feet (QC): 5 Walk 50 ft with 2 Turns(QC): 5 Walk 150 ft (QC): 5 Gait Assistive Device: FWW PT assist for O2 tank only with activity Assessment Patient tolerated treatment well and remains up in recliner with needs met. Patient remains at modified independent to SBA with all activity. PT Wood Repatcher Goals Wood Repatcher Goals PT M[facility] Goals Time Frame: Feb 26, 2023 Roll Left & Right (QC): 6 Sit to Lying (QC): 6 Lying-Sitting on Side/Bed(QC): 6 Sit to Stand (QC): 6 Chair/Pbh-sr-[place] Xfer(QC): 6 Toilet Transfer (QC): 6 Does the Patient Walk: Yes Walk 10 feet (QC): 5 Walk 50ft with 2 Turns (QC): 5 Walk 150 ft (QC): 5 PT Plan Treatment/Plan Treatment Plan: Continue Plan of Care Treatment Plan: Bed Mobility, Education, Functional Activity [place], Functional Strength, Gait, Safety, Therapeutic Exercise, Transfers Treatment Duration: Feb 26, 2023 Frequency: 6 times per week Estimated Hrs Per Day: .25 hour per day Patient and/or Family Agrees t: Yes Time Time In: 938 Time Out: 949 DATE: Feb 18, 2023 Total Billed Treatment Time: 11 Total Billed Treatment 1 visit FA 11 min CAILIN COLEY PT Feb 18, 2023 10:16
--- NOTE | 2023-02-18 11:17 | Occupational Ther Daily Note ---
OT Current Status-Daily Note Subjective In recliner w/ wound change/care on arrival, agreeable to ther ex w/ OT Mental Status/Objective Patient Orientation: Situation ADL-Treatment Therapy Code Descriptions/Definitions Functional [place] Measure: 0=Not Assessed/NA 4=Minimal Assistance 1=Total Assistance 5=Supervision or Setup 2=Maximal Assistance 6=Modified [place] 3=Moderate Assistance 7=Complete IndependenceSCALE: Activities may be completed with or without assistive devices. 7-Yevjnqjdar-cjpnncj completes the activity by him/herself with no assistance from a helper. 5-Set-up or Clean-up Assistance-helper sets up or cleans up; patient completes activity. [place] assists only prior to or following the activity. 4-Supervision or Touching Assistance-helper provides verbal cues and/or touching/steadying and/or contact guard assistance as patient completes activity. Assistance may be provided throughout the activity or intermittently. 3-Partial/Moderate Assistance-helper does LESS THAN HALF the effort. [place] lifts, holds or supports trunk or limbs, but provides less than half the effort. 2-Substantial/Maximal Assistance-helper does MORE THAN HALF the effort. [place] lifts or holds trunk or limbs and provides more than half the effort. 4-Yvgreytcb-gavjjd does ALL the effort. Patient does none of the effort to complete the activity. Or, the assistance of 2 or more helpers is required for the patient to complete the activity. If activity was not attempted, code reason: 7-Patient Refused. 9-Not Applicable-not attempted and the patient did not perform the activity be fore the current illness, exacerbation or injury. 10-Not Attempted due to Environmental Limitations-(lack of equipment, weather restraints, etc.). 88-Not Attempted due to Medical Conditions or Safety Concerns. Other Treatment Red ther band BUE horz abd, shoulder flex/ex an delbopw flex/ex for ADL and transfers, improved tolerance to activity an dprepareion for IADLS at home. Performed 10 reps each exercise w/ VC for breathing, RB between each set less than 1 minute Education OT Patient Education: Exercise program, Progress toward Goal/Update tx plan, Purpose of tx/functional activities, Safety issues, Transfer techniques Teaching Recipient: Patient Teaching Methods: Demonstration, Discussion Response to Teaching: Reinforcement Needed OT Commercial Agent Goals Prison Goals Eating (QC): 6 Oral Hygiene (QC): 6 Toileting Hygiene (QC): 5 Shower/Bathe Self (QC): 4 Upper Body Dressing (QC): 6 Lower Body Dressing (QC): 4 On/Off Footwear (QC): 3 1=Demonstrate adherence to instructed precautions during ADL tasks. 2=Patient will verbalize/demonstrate understanding of assistive devices/modifications for ADL. 3=Patient will improve strength/tolerance for activity to enable patient to perform ADL's. OT Education/Plan Discharge Recommendations Plan/Recommendations: Continue POC Treatment Plan/Plan of Care Patient would benefit from OT for education, treatment and training to promote independence in ADL's, mobility, safety and/or upper extremity function for ADL's. Plan of Care: ADL Retraining, Functional Mobility, Group Exercise/Act as Ind, UE Funct Exercise/Act Treatment Duration: Feb 19, 2023 Frequency: 3 times per week (3-5 TIMES PER WEEK) Estimated Hrs Per Day: .25 hour per day Agreement: Yes Rehab Potential: Guarded Time Start Time: 10:02 Stop Time: 10:18 DATE: Feb 18, 2023 Total Time Billed (hr/min): 20 Billed Treatment Time EX 20 min ELISABETH CASILLAS OT Feb 18, 2023 11:16
--- NOTE | 2023-02-18 12:18 | Progress Note - Hospitalist ---
Subjective HPI/CC On Admission Date Seen by Provider: Feb 18, 2023 Time Seen by Provider: 11:00 Subjective/Events-last exam No major issues No pain Legs improved Labs stable No falls Review of Systems General: Fatigue, Malaise Objective Exam Vital Signs Vital Signs Date Time Temp Pulse Resp B/P (MAP) Pulse Ox O2 Delivery O2 Flow Rate FiO2 02/18/23 15:49 36.6 60 20 165/69 (101) 94 Room Air 02/17/23 08:15 2.00 Capillary Refill : Less Than 3 Seconds General Appearance: No Apparent Distress, WD/WN, Chronically ill Respiratory: Lungs Clear, Normal Breath Sounds Cardiovascular: Regular Rate, Rhythm Neurologic/Psychiatric: Alert, Oriented x3 Results/Procedures Lab Laboratory Tests 02/18/23 05:32 Patient resulted labs reviewed. Assessment/Plan Assessment and Plan Assess & Plan/Chief Complaint (1) Cellulitis of right lower extremity (2) Hypertension (3) Type 2 diabetes mellitus, with long-term current use of insulin (4) Hypoxia (5) Physical debility Plan: DC to NH? Clinical Quality Measures DVT/VTE Risk/Contraindication: Contraindications-Mechi: Other *list below* Other: leg cellulitis HERMILA SWAIN DO Feb 18, 2023 12:18
[2023-02-18] MEDS: ACETAMINOPHEN 500 MG TAB (TYLENOL) PO PRN (12:48)
[2023-02-18] MEDS: cloNIDine 0.1 MG (CATAPRES) TAB PO PRN (13:26)
[2023-02-18] MEDS: hydrALAZINE (APRESOLINE) 25 MG TAB PO SCH ×2 (16:58→20:16)
[2023-02-18] MEDS: MELATONIN 3 MG TABLET PO PRN (20:35)
[2023-02-19] VITALS (7 sets, daily range): BP systolic 138–197; BP diastolic 64–82
[2023-02-19] MEDS: inSUlin ASPART (NovoLOG) 1 UNIT/0.01 ML (CHARGE PER UNIT) SC SCH ×7 (05:44→20:53)
--- NOTE | 2023-02-19 06:03 | Progress Note - Hospitalist ---
Subjective HPI/CC On Admission Date Seen by Provider: Feb 19, 2023 Time Seen by Provider: 11:00 Subjective/Events-last exam No major events No falls No pain reported Review of Systems General: Fatigue, Malaise Neurological: Weakness, Incoordination Objective Exam Vital Signs Vital Signs Date Time Temp Pulse Resp B/P (MAP) Pulse Ox O2 Delivery O2 Flow Rate FiO2 02/19/23 11:18 36.5 53 20 181/70 (107) 96 Room Air 02/17/23 08:15 2.00 Capillary Refill : Less Than 3 Seconds General Appearance: No Apparent Distress, WD/WN, Chronically ill, Obese Respiratory: Lungs Clear, Normal Breath Sounds Cardiovascular: Regular Rate, Rhythm Neurologic/Psychiatric: Alert, Oriented x3, No Motor/Sensory Deficits, Normal Mood/Affect Results/Procedures Lab Patient resulted labs reviewed. Assessment/Plan Assessment and Plan Assess & Plan/Chief Complaint (1) Cellulitis of right lower extremity (2) Hypertension (3) Type 2 diabetes mellitus, with long-term current use of insulin (4) Hypoxia (5) Physical debility Plan: DC to [place]? Clinical Quality Measures DVT/VTE Risk/Contraindication: Contraindications-Mechi: Other *list below* Other: leg cellulitis HERMILA SWAIN DO Feb 19, 2023 06:03
--- NOTE | 2023-02-19 08:25 | Physical Therapy Daily Note ---
PT Daily Note-Current Subjective Pt up in chair upon arrival to room, finished with breakfast and agreeable to PT treatment. Denies pain. Pain Section J - Health Conditions 1. Rarely or not at all 2. Occasionally 3. Frequently 4. Almost constantly 8. Unable to answer Pain Effect on Sleep: 1 Pain Interference with Therapy: 1 Pain Interference w/Day-to-Day: 1 Appearance Following session, pt up in chair with call light, phone, tray table within reach and LOAN UNDERWRITER in room. All needs met at this time. Mental Status Patient Orientation: Person, Place, Situation Attachments: Oxygen (2L) Transfers SCALE: Activities may be completed with or without assistive devices. 1-Xyzpeasvnf-wwsqyvi completes the activity by him/herself with no assistance from a helper. 5-Set-up or Clean-up Assistance-helper sets up or cleans up; patient completes activity. [place] assists only prior to or following the activity. 4-Supervision or Touching Assistance-helper provides verbal cues and/or touching/steadying and/or contact guard assistance as patient completes activity. Assistance may be provided throughout the activity or intermittently. 3-Partial/Moderate Assistance-helper does LESS THAN HALF the effort. [place] lifts, holds or supports trunk or limbs, but provides less than half the effort. 2-Substantial/Maximal Assistance-helper does MORE THAN HALF the effort. [place] lifts or holds trunk or limbs and provides more than half the effort. 4-Kbximzqjw-etuvfe does ALL the effort. Patient does none of the effort to complete the activity. Or, the assistance of 2 or more helpers is required for the patient to complete the activity. If activity was not attempted, code reason: 7-Patient Refused. 9-Not Applicable-not attempted and the patient did not perform the activity before the current illness, exacerbation or injury. 10-Not Attempted due to Environmental Limitations-(lack of equipment, weather restraints, etc.). 88-Not Attempted due to Medical Conditions or Safety Concerns. Sit to Stand (QC): 5 Weight Bearing Full Weight Bearing Full Weight Bearing Gait Training Distance: 300' Walk 150 ft (QC): 4 Gait Assistive Device: FWW Pt ambulated with good steady gait pattern, and appropriate gait speed. No LOB and only mildly increased SOB Treatments Pt requests using bathroom prior to ambulation in the hallway, pt transfers (I) onto and off the toilet, able to doff and don undergarments (I). Assessment Current Status: Good Progress Pt tolerated above well, good steady gait pattern and safe transfers in and out of bathroom. PT Hospice Fellow Goals Penitentiary Goals PT Penitentiary Goals Time Frame: Feb 26, 2023 Roll Left & Right (QC): 6 Sit to Lying (QC): 6 Lying-Sitting on Side/Bed(QC): 6 Sit to Stand (QC): 6 Chair/Fmb-am-Ylyse Xfer(QC): 6 Toilet Transfer (QC): 6 Does the Patient Walk: Yes Walk 10 feet (QC): 5 Walk 50ft with 2 Turns (QC): 5 Walk 150 ft (QC): 5 PT Plan Problem List Problem List: Activity Tolerance, Functional Strength, Safety, Balance, Gait, Transfer, Bed Mobility, ROM Treatment/Plan Treatment Plan: Continue Plan of Care Treatment Plan: Bed Mobility, Education, Functional Activity Garrick, Functional Strength, Gait, Safety, Therapeutic Exercise, Transfers Treatment Duration: Feb 26, 2023 Frequency: 6 times per week Estimated Hrs Per Day: .25 hour per day Patient and/or Family Agrees t: Yes Time Time In: 808 Time Out: 820 DATE: Feb 19, 2023 Total Billed Treatment Time: 12 Total Billed Treatment 1 visit, GT (10') JAVIER BARBOSA PT Feb 19, 2023 08:25
[2023-02-19] MEDS: ROSUVASTATIN 20 MG (CRESTOR) TABLET PO SCH (09:04)
[2023-02-19] MEDS: buPROPion SR 100 MG (WELLBUTRIN SR) TAB PO SCH (09:04)
[2023-02-19] MEDS: amLODIPine 5 MG (NORVASC) TAB PO SCH (09:04)
[2023-02-19] MEDS: DOCUSATE SODIUM 100 MG (COLACE) CAP PO SCH ×2 (09:04→20:43)
[2023-02-19] MEDS: LOSARTAN 50 MG (COZAAR) TAB PO SCH (09:04)
[2023-02-19] MEDS: MICONAZOLE 2% POWDER (DESENEX AF) 90 GM TOP SCH ×2 (09:05→20:45)
[2023-02-19] MEDS: SENNOSIDES 8.6 MG (SENOKOT) TAB PO SCH ×2 (09:05→20:43)
[2023-02-19] MEDS: hydrALAZINE (APRESOLINE) 25 MG TAB PO SCH ×3 (09:05→20:44)
[2023-02-19] MEDS: GABAPENTIN 400 MG (NEURONTIN) CAP PO SCH ×3 (09:05→20:44)
[2023-02-19] MEDS: busPIRone 15 MG (BUSPAR) TABLET PO SCH ×2 (09:05→20:43)
[2023-02-19] MEDS: toPIRamate 25 MG (TOPAMAX) TAB PO SCH (09:05)
[2023-02-19] MEDS: ENOXAPARIN 40 MG/0.4 ML (LOVENOX) SYR SC SCH ×2 (09:07→20:45)
[2023-02-19] MEDS ORDERED: BISACODYL 10 MG SUPP (DULCOLAX) PR NR (12:30)
[2023-02-19] MEDS: cloNIDine 0.1 MG (CATAPRES) TAB PO PRN ×2 (19:54→20:50)
[2023-02-19] MEDS: IBUPROFEN TABLET 200 MG TAB PO PRN (20:51)
[2023-02-19] MEDS: MELATONIN 3 MG TABLET PO PRN (20:51)
[2023-02-20] VITALS (7 sets, daily range): BP systolic 130–193; BP diastolic 61–83
[2023-02-20] MEDS: inSUlin ASPART (NovoLOG) 1 UNIT/0.01 ML (CHARGE PER UNIT) SC SCH ×7 (06:13→21:10)
--- NOTE | 2023-02-20 06:30 | Progress Note - Hospitalist ---
Subjective HPI/CC On Admission Date Seen by Provider: Feb 20, 2023 Time Seen by Provider: 11:00 Subjective/Events-last exam No major issues NO pain Improved BP Review of Systems General: Fatigue, Malaise Musculoskeletal: leg pain Objective Exam Vital Signs Vital Signs Date Time Temp Pulse Resp B/P (MAP) Pulse Ox O2 Delivery O2 Flow Rate FiO2 02/20/23 12:28 36.3 50 18 130/61 (84) 94 Room Air 02/17/23 08:15 2.00 Capillary Refill : Less Than 3 Seconds General Appearance: No Apparent Distress, WD/WN, Chronically ill, Obese Respiratory: Lungs Clear, Normal Breath Sounds Cardiovascular: Regular Rate, Rhythm Neurologic/Psychiatric: Alert, Oriented x3 Results/Procedures Lab Patient resulted labs reviewed. Assessment/Plan Assessment and Plan Assess & Plan/Chief Complaint (1) Cellulitis of right lower extremity (2) Hypertension (3) Type 2 diabetes mellitus, with long-term current use of insulin (4) Hypoxia (5) Physical debility Plan: DC to [place]? Clinical Quality Measures DVT/VTE Risk/Contraindication: Contraindications-Mechi: Other *list below* Other: leg cellulitis HERMILA SWAIN DO Feb 20, 2023 06:30
[2023-02-20] MEDS: toPIRamate 25 MG (TOPAMAX) TAB PO SCH (09:03)
[2023-02-20] MEDS: ENOXAPARIN 40 MG/0.4 ML (LOVENOX) SYR SC SCH ×2 (09:03→21:10)
[2023-02-20] MEDS: ROSUVASTATIN 20 MG (CRESTOR) TABLET PO SCH (09:03)
[2023-02-20] MEDS: busPIRone 15 MG (BUSPAR) TABLET PO SCH ×2 (09:03→19:29)
[2023-02-20] MEDS: GABAPENTIN 400 MG (NEURONTIN) CAP PO SCH ×3 (09:04→19:30)
[2023-02-20] MEDS: amLODIPine 5 MG (NORVASC) TAB PO SCH (09:04)
[2023-02-20] MEDS: LOSARTAN 50 MG (COZAAR) TAB PO SCH (09:04)
[2023-02-20] MEDS: buPROPion SR 100 MG (WELLBUTRIN SR) TAB PO SCH (09:04)
[2023-02-20] MEDS: IBUPROFEN TABLET 200 MG TAB PO PRN ×2 (09:04→19:31)
[2023-02-20] MEDS: hydrALAZINE (APRESOLINE) 25 MG TAB PO SCH ×3 (09:04→19:30)
[2023-02-20] MEDS: SENNOSIDES 8.6 MG (SENOKOT) TAB PO SCH ×2 (09:05→19:30)
[2023-02-20] MEDS: DOCUSATE SODIUM 100 MG (COLACE) CAP PO SCH ×2 (09:05→19:29)
[2023-02-20] MEDS: MICONAZOLE 2% POWDER (DESENEX AF) 90 GM TOP SCH ×2 (09:05→19:32)
[2023-02-20] MEDS: MELATONIN 3 MG TABLET PO PRN (19:30)
[2023-02-21 00:37] VITALS: BP 159/74
[2023-02-21 04:02] VITALS: BP_SYST 150; BP_SYST 186; BP_DIAS 65; BP_DIAS 77
[2023-02-21] MEDS: inSUlin ASPART (NovoLOG) 1 UNIT/0.01 ML (CHARGE PER UNIT) SC SCH ×4 (04:35→11:44)
[2023-02-21] MEDS: IBUPROFEN TABLET 200 MG TAB PO PRN (06:11)
[2023-02-21 08:09] VITALS: BP 151/77
[2023-02-21] MEDS: buPROPion SR 100 MG (WELLBUTRIN SR) TAB PO SCH (08:31)
[2023-02-21] MEDS: toPIRamate 25 MG (TOPAMAX) TAB PO SCH (08:31)
[2023-02-21] MEDS: busPIRone 15 MG (BUSPAR) TABLET PO SCH (08:31)
[2023-02-21] MEDS: ROSUVASTATIN 20 MG (CRESTOR) TABLET PO SCH (08:31)
[2023-02-21] MEDS: GABAPENTIN 400 MG (NEURONTIN) CAP PO SCH ×2 (08:31→13:35)
[2023-02-21] MEDS: DOCUSATE SODIUM 100 MG (COLACE) CAP PO SCH (08:31)
[2023-02-21] MEDS: hydrALAZINE (APRESOLINE) 25 MG TAB PO SCH ×2 (08:31→13:35)
[2023-02-21] MEDS: amLODIPine 5 MG (NORVASC) TAB PO SCH (08:32)
[2023-02-21] MEDS: SENNOSIDES 8.6 MG (SENOKOT) TAB PO SCH (08:32)
[2023-02-21] MEDS: LOSARTAN 50 MG (COZAAR) TAB PO SCH (08:32)
[2023-02-21] MEDS: MICONAZOLE 2% POWDER (DESENEX AF) 90 GM TOP SCH (08:32)
--- NOTE | 2023-02-21 09:08 | Physical Therapy Daily Note ---
PT Daily Note-Current Subjective Patient agrees to PT. Pain Section J - Health Conditions 1. Rarely or not at all 2. Occasionally 3. Frequently 4. Almost constantly 8. Unable to answer Pain Effect on Sleep: 1 Pain Interference with Therapy: 1 Pain Interference w/Day-to-Day: 1 Mental Status Patient Orientation: Normal For Age Attachments: Oxygen Transfers SCALE: Activities may be completed with or without assistive devices. 5-Mbpzpiyqyw-fgyuakn completes the activity by him/herself with no assistance from a helper. 5-Set-up or Clean-up Assistance-helper sets up or cleans up; patient completes activity. [place] assists only prior to or following the activity. 4-Supervision or Touching Assistance-helper provides verbal cues and/or touching/steadying and/or contact guard assistance as patient completes activity. Assistance may be provided throughout the activity or intermittently. 3-Partial/Moderate Assistance-helper does LESS THAN HALF the effort. [place] lifts, holds or supports trunk or limbs, but provides less than half the effort. 2-Substantial/Maximal Assistance-helper does MORE THAN HALF the effort. [place] lifts or holds trunk or limbs and provides more than half the effort. 8-Dlktrgdij-uyibud does ALL the effort. Patient does none of the effort to complete the activity. Or, the assistance of 2 or more helpers is required for the patient to complete the activity. If activity was not attempted, code reason: 7-Patient Refused. 9-Not Applicable-not attempted and the patient did not perform the activity before the current illness, exacerbation or injury. 10-Not Attempted due to Environmental Limitations-(lack of equipment, weather restraints, etc.). 88-Not Attempted due to Medical Conditions or Safety Concerns. Sit to Stand (QC): 5 Weight Bearing Full Weight Bearing Full Weight Bearing Gait Training Distance: 300' Walk 10 feet (QC): 5 Walk 50 ft with 2 Turns(QC): 5 Walk 150 ft (QC): 5 Gait Assistive Device: FWW safe and functional with no deviation Exercises Seated Therapy Exercises: Ankle pumps, Long arc quads, Hip flexion Seated Reps: 15 Assessment Patient tolerated treatment well and remains up in recliner with needs met. PT Short Term Goals Short Term Goals Time Frame: Feb 21, 2023 PT Penitentiary Goals Pay Agent Goals PT Penitentiary Goals Time Frame: Feb 26, 2023 Roll Left & Right (QC): 6 Sit to Lying (QC): 6 Lying-Sitting on Side/Bed(QC): 6 Sit to Stand (QC): 6 Chair/Bzo-ox-Foobs Xfer(QC): 6 Toilet Transfer (QC): 6 Does the Patient Walk: Yes Walk 10 feet (QC): 5 Walk 50ft with 2 Turns (QC): 5 Walk 150 ft (QC): 5 PT Plan Treatment/Plan Treatment Plan: Continue Plan of Care Treatment Plan: Bed Mobility, Education, Functional Activity [place]rick, Functional Strength, Gait, Safety, Therapeutic Exercise, Transfers Treatment Duration: Feb 26, 2023 Frequency: 6 times per week Estimated Hrs Per Day: .25 hour per day Patient and/or Family Agrees t: Yes Time Time In: 800 Time Out: 823 DATE: Feb 21, 2023 Total Billed Treatment Time: 23 Total Billed Treatment 1 visit FA 12 min EX 11 min CAILIN COLEY PT Feb 21, 2023 09:08
[2023-02-21] MEDS: ENOXAPARIN 40 MG/0.4 ML (LOVENOX) SYR SC SCH (10:12)
[2023-02-21] MEDS ORDERED: HYDR-3923 PO (11:23)
[2023-02-21] MEDS ORDERED: AMLO-251 PO (11:25)
[2023-02-21] MEDS: cloNIDine 0.1 MG (CATAPRES) TAB PO PRN (11:44)
[2023-02-21 12:28] VITALS: BP 143/94
[2023-02-21 14:22] VITALS: BP 143/94
--- NOTE | 2023-02-21 19:01 | Discharge Summary ---
Discharge Summary Hospital Course Hospital Course Date of Admission: Feb 12, 2023 at 12:13 Admission Diagnosis : Family Physician/Provider: Zeenat Hubbard MD Date of Discharge: 02/21/23 Discharge Diagnosis: [ ] Hospital Course: [ ] Labs and Pending Lab Test: Laboratory Tests 02/20/23 20:14: Glucometer 191H 02/21/23 03:39: Glucometer 170H 02/21/23 05:35: Glucometer 186H 02/21/23 10:55: Glucometer 309H Microbiology 02/09/23 MRSA Screen - Final, Complete MRSA not isolated 02/08/23 Urine Culture - Final, Complete NO GROWTH 02/08/23 Blood Culture - Final, Complete No growth 02/08/23 Gram Stain - Final, Complete 02/08/23 Wound Culture - Final, Complete Mixed Bacterial [place] Klebsiella/Enterobacter spec Staph, Coag Neg (MANAGER STAFFING) Corynebacterium species Home Meds Active Amlodipine Besylate 10 Mg Tablet 10 Mg PO DAILY Hydralazine HCl 25 Mg Tablet 25 Mg PO TID Cefdinir 300 Mg Capsule 300 Mg PO BID Melatonin 3 Mg Tablet 6 Mg PO HS PRN Lotrimin AF (Miconazole Nitrate) 2 % Powder 0 Gm TOP BID twice daily Ondansetron Odt (Ondansetron) 4 Mg Tab.rapdis 4 Mg PO Q4HR PRN Losartan Potassium 50 Mg Tablet 50 Mg PO DAILY Rosuvastatin Calcium 20 Mg Tablet 20 Mg PO DAILY Tresiba Flextouch U-100 (Insulin Degludec) 100 Unit/Ml (3 Ml) Insuln.pen 40 Unit SQ HS Furosemide 40 Mg Tablet 40 Mg PO DAILY Topiramate 50 Mg Tablet 50 Mg PO DAILY Clonazepam 1 Mg Tablet 1 Mg PO TID PRN Vitamin D2 (Ergocalciferol (Vitamin D2)) 1,250 Mcg (72083 Unit) Capsule 1,250 Mcg PO WED,SAT Gabapentin 800 Mg Tablet 1,200 Mg PO HS Metformin HCl 1,000 Mg Tablet 1,000 Mg PO BID Mounjaro (Tirzepatide) 2.5 Mg/0.5 Ml Pen.injctr 2.5 Mg SQ SAT Buspirone HCl 30 Mg Tablet 30 Mg PO BID Bupropion HCl Sr (Bupropion HCl) 100 Mg Tablet.er 100 Mg PO DAILY Gabapentin 800 Mg Tablet 800 Mg PO TID Novolog Flexpen (Insulin Aspart) 100 Unit/Ml (3 Ml) Solution 16 Units SC TIDAC Certification (SNF) I certify that SNF services are required to be given on an inpatient basis because of the above named patient's need for intermediate care on a continuing basis for the conditions(s) for which he/she was receiving inpatient hospital services prior to his/her transfer to the SNF. Detention Facility Order: Nursing Services, Collection Systems Modeler-Evaluate & Treat, Physical Therapy-Evaluate & Treat Oxygen Delivery Method: Room Air Discharge Diet: ADA Diet Resuscitation Status: Do Not Resuscitate Shane Chen Feb 21, 2023 19:01 SHANE CHEN MD Feb 21, 2023 19:01
== END 2023-02-21 14:32 | DRG 603 ==
LOC: EDUNIT# 11:41 → ER 11:43 → 4TH 16:43 → OBSVTOIN 02-12 12:13
PROVIDERS: ADMIT Family Medicine; ATTEND Family Medicine
DX: L03.115 Cellulitis of right lower limb (principal); L97.219 Non-pressure chronic ulcer of right calf with unspecified severity; I87.331 Chronic venous hypertension (idiopathic) with ulcer and inflammation of right lower extremity; E46 Unspecified protein-calorie malnutrition; Z68.42 Body mass index [BMI] 45.0-49.9, adult; E11.622 Type 2 diabetes mellitus with other skin ulcer; E11.65 Type 2 diabetes mellitus with hyperglycemia; E11.40 Type 2 diabetes mellitus with diabetic neuropathy, unspecified; Z66 Do not resuscitate; Z20.822 Contact with and (suspected) exposure to COVID-19; J44.9 Chronic obstructive pulmonary disease, unspecified; R09.02 Hypoxemia; I10 Essential (primary) hypertension; K21.9 Gastro-esophageal reflux disease without esophagitis; M19.90 Unspecified osteoarthritis, unspecified site; F41.9 Anxiety disorder, unspecified; F32.A Depression, unspecified; I87.8 Other specified disorders of veins; K59.00 Constipation, unspecified; R53.81 Other malaise; E66.01 Morbid (severe) obesity due to excess calories; R32 Unspecified urinary incontinence; R35.89 Other polyuria; Z79.85 Long-term (current) use of injectable non-insulin antidiabetic drugs; Z79.84 Long term (current) use of oral hypoglycemic drugs; Z79.4 Long term (current) use of insulin; Z99.81 Dependence on supplemental oxygen; Z91.81 History of falling; Z87.891 Personal history of nicotine dependence; Z79.899 Other long term (current) drug therapy
CPT/HCPCS: 36415; 51702; 71045; 71275; 80053; 81000; 82140; 82947; 83605; 83880; 84134; 85025; 85610; 85652; 85730; 86141; 87040; 87070; 87081; 87088; 87205; 87636; 93970; 94760; 94761; G0378

== ENCOUNTER 2023-03-09 00:47 | Inpatient (IN) | payer MEDICARE ==
[~2023-03-09] VITALS: Ht 165 cm; Wt 129.0 kg
[~2023-03-09 00:47] MED LIST changes: +AMLO-251 PO; +CLON1TAB13 PO; +ERGO1250 PO; +FURO40TA4 PO; -GABA300S2 PO; +GABA300S3 PO; +HYDR-3923 PO; +INSU100I32 SQ; +MELA3TAB39 PO; +METF-399 PO; +MICO90PO TOP; +ONDA4TAB11 PO; +ROSU20TA32 PO; +TIRZ2.5P SQ; +TOPI-241 PO
--- NOTE | 2023-03-09 01:05 | ED Psychosocial ---
General Chief Complaint: Overdose Stated Complaint: OVERDOSE Source: patient, EMS Exam Limitations: no limitations History of Present Illness Date Seen by Provider: March 09, 2023 Time Seen by Provider: 00:54 Initial Comments 68-year-old female presents to the emergency department via EMS for reported overdose. It is unclear what or how much medication she took. EMS reports that there were bottles of Klonopin, Topamax, metformin and gabapentin on scene all of which had incorrect counts. She reportedly at least took 500 mg of Topamax as she states she took some Klonopin as well. She states she was trying to fall asleep and never wake up though she states she does not want to . She was depressed because she was recently hospitalized actually placed in a short-term rehab facility. She was enjoying being in the rehab facility as they helped her get up every day and she had "good fellowship." She was depressed because she was discharged home where her home is dark and she does not have a lot of daily interaction. She denies any fevers or chills. No changes in bowel or bladder habits. EMS reports on their arrival her oxygen saturation was in the mid 70s. They placed her on 2 L of oxygen via nasal cannula with good improvement. Patient states she has felt little short of breath this evening. All other systems reviewed and negative except documented per HPI. Voice recognition software was used to help create this chart Allergies and Home Medications Allergies Coded Allergies: exenatide (Unverified Allergy, Unknown, 03/24/22) methylphenidate (Unverified Allergy, Unknown, 03/24/22) morphine (Verified Adverse Reaction, Mild, NAUSEA, 05/19/16) sulfamethoxazole (Unverified Adverse Reaction, Unknown, 10/13/22) HALLUCINATIONS trimethoprim (Unverified Adverse Reaction, Unknown, 10/13/22) HALLUCINATIONS Patient Home Medication List Home Medication List Reviewed: Yes Amlodipine Besylate (Amlodipine Besylate) 10 Mg Tablet, 10 MG PO DAILY Prescribed by: SHANE GALVAN on 02/21/23 1125 Bupropion HCl (Bupropion HCl Sr) 100 Mg Tablet.er, 100 MG PO DAILY Prescribed by: HERMILA SWAIN on 02/14/23 1028 Buspirone HCl (Buspirone HCl) 30 Mg Tablet, 30 MG PO BID Prescribed by: HERMILA SWAIN on 02/14/23 1028 Cefdinir (Cefdinir) 300 Mg Capsule, 300 MG PO BID Prescribed by: HERMILA SWAIN on 02/14/23 1028 Clonazepam (Clonazepam) 1 Mg Tablet, 1 MG PO TID PRN for ANXIETY Prescribed by: HERMILA SWAIN on 02/14/23 1029 Ergocalciferol (Vitamin D2) (Vitamin D2) 1,250 Mcg (70999 Unit) Capsule, 1,250 MCG PO WED,SAT Prescribed by: HERMILA SWAIN on 02/14/23 1028 Furosemide (Furosemide) 40 Mg Tablet, 40 MG PO DAILY Prescribed by: HERMILA SWAIN on 02/14/23 1028 Gabapentin (Gabapentin) 800 Mg Tablet, 800 MG PO TID Prescribed by: HERMILA SWAIN on 02/14/23 1028 Gabapentin (Gabapentin) 800 Mg Tablet, 1,200 MG PO HS Prescribed by: HERMILA SWAIN on 02/14/23 1028 Hydralazine HCl (Hydralazine HCl) 25 Mg Tablet, 25 MG PO TID Prescribed by: SHANE GALVAN on 02/21/23 1123 Insulin Aspart (Novolog Flexpen) 100 Unit/Ml (3 Ml) Solution, 16 UNITS SC TIDAC Prescribed by: HERMILA SWAIN on 02/14/23 1028 Insulin Degludec (Tresiba Flextouch U-100) 100 Unit/Ml (3 Ml) Insuln.pen, 40 UNIT SQ HS Prescribed by: HERMILA SWAIN on 02/14/23 1028 Losartan Potassium (Losartan Potassium) 50 Mg Tablet, 50 MG PO DAILY Prescribed by: HERMILA SWAIN on 02/14/23 1028 Melatonin (Melatonin) 3 Mg Tablet, 6 MG PO HS PRN for INSOMNIA Prescribed by: HERMILA SWAIN on 02/14/23 1028 Metformin HCl (Metformin HCl) 1,000 Mg Tablet, 1,000 MG PO BID Prescribed by: HERMILA SWAIN on 02/14/23 1028 Miconazole Nitrate (Lotrimin AF) 2 % Powder, 0 GM TOP BID Prescribed by: HERMILA SWAIN on 02/14/23 1028 Ondansetron (Ondansetron Odt) 4 Mg Tab.rapdis, 4 MG PO Q4HR PRN for NAUSEA/VOMITING-1ST LINE Prescribed by: HERMILA SWAIN on 02/14/23 1028 Rosuvastatin Calcium (Rosuvastatin Calcium) 20 Mg Tablet, 20 MG PO DAILY Prescribed by: HERMILA SWAIN on 02/14/23 1028 Tirzepatide (Mounjaro) 2.5 Mg/0.5 Ml Pen.injctr, 2.5 MG SQ SAT Prescribed by: HERMILA SWAIN on 02/14/23 1028 Topiramate (Topiramate) 50 Mg Tablet, 50 MG PO DAILY Prescribed by: HERMILA SWAIN on 02/14/23 1028 Review of Systems Constitutional: see HPI Past [id number]-Alwcgb Hx Patient Social History Tobacco Use?: No Use of E-Cig and/or Vaping dev: No Substance use?: No Alcohol Use?: No Immunizations Up To Date Tetanus Booster (TDap): Unknown PED Vaccines UTD: No First/Initial COVID19 Vaccinat: 2020 Second COVID19 Vaccination Dae: 2020 Third COVID19 Vaccination Date: 07/2021 Seasonal Allergies Seasonal Allergies: Yes Past Medical History Surgery/Hospitalization HX: DIABETIC TYPE II, NEROPATHY, APPE, TRACI, C SECTION Surgeries: Yes Abdominal, Section, Hysterectomy, Orthopedic Respiratory: Yes COPD Currently Using CPAP: No Currently Using BIPAP: No Cardiac: Yes Hypertension Neurological: Yes Neuropathy 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 Disorders: No Female 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 Disorders: Denies 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, 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 Sexually Transmitted Disease: No HIV/AIDS: No Genitourinary: No Gastrointestinal: Yes Gastroesophageal Reflux, Hiatal Hernia Musculoskeletal: Yes Arthritis Endocrine: Yes Diabetes, Insulin dep HEENT: Yes Cataract Loss of Vision: Bilateral Hearing Impairment: Hard of Hearing Cancer: Yes Melanoma Psychosocial: Yes Anxiety, Depression Integumentary: Yes (venous stasis) Psoriasis Blood Disorders: No Adverse Reaction/Blood Tranf: No Family Medical History AIDS Alcoholism Arthritis Asthma Cataracts Coronary thrombosis Diabetes mellitus Drug abuse Glaucoma Psychosocial problem Respiratory disorder No Family History of: Sadiq's disease Alzheimer's disease Aphasia Cancer of mouth Cardiovascular disease Colon cancer Completed stroke Congenital disease Congenital heart disease Cystic fibrosis Deafness or hearing loss Dementia Dysphasia Fibrocystic disease of breast Gastroenteritis Headache disorder Hypercholesterolemia Hypertension Infertility Kidney disease Myocardial infarction Neoplasm Not obtainable due to adoption Osteoporosis Parkinson's disease Prostate cancer Seizure disorder Severe allergy Thyroid disease Tuberculosis Visual disorder Cancer, Diabetes, Hypertension Physical Exam Vital Signs - First Documented 03/09/23 03/09/23 00:47 00:53 Temp 36.7 Pulse 80 Resp 16 B/P (MAP) 155/73 (100) Pulse Ox 88 O2 Delivery Room Air O2 Flow Rate 4.00 Capillary Refill : Height, Weight, BMI Height: 5'65.00" Weight: 252lbs. 14.0oz. [id number]; 48.77 BMI Method:Stated General Appearance: WD/WN, no apparent distress HEENT: PERRL/EOMI, normal ENT inspection, pharynx normal Neck: non-tender, supple Respiratory: chest non-tender, lungs clear, normal breath sounds, no respiratory distress, no accessory muscle use, other (On 2 L of oxygen via nasal cannula. Oxygen saturation around 92 to 94%) Cardiovascular: regular rate, rhythm, no murmur Gastrointestinal: normal bowel sounds, non tender, soft, no organomegaly Extremities: other (2+ pitting edema. Changes consistent with chronic venous stasis bilaterally.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: alert, oriented x 3 Skin: other (Like changes as described above.) Progress/Results/Core Measures Results/Orders Lab Results Laboratory Tests Test 03/09/23 01:02 03/09/23 03:14 Range/Units White Blood Count 10.8 4.3-11.0 10^3/uL Red Blood Count 4.84 3.80-5.11 10^6/uL Hemoglobin 13.9 11.5-16.0 g/dL Hematocrit 42 35-52 % Mean Corpuscular Volume 87 80-99 fL Mean Corpuscular Hemoglobin 29 25-34 pg Mean Corpuscular Hemoglobin Concent 33 32-36 g/dL Red Cell Distribution Width 14.9 H 10.0-14.5 % Platelet Count 74 L 130-400 10^3/uL Mean Platelet Volume 12.1 9.0-12.2 fL Immature Granulocyte % (Auto) 1 % Neutrophils (%) (Auto) 73 42-75 % Lymphocytes (%) (Auto) 17 12-44 % Monocytes (%) (Auto) 5 0-12 % Eosinophils (%) (Auto) 3 0-10 % Basophils (%) (Auto) 1 0-10 % Neutrophils # (Auto) 7.9 H 1.8-7.8 10^3/uL Lymphocytes # (Auto) 1.9 1.0-4.0 10^3/uL Monocytes # (Auto) 0.6 0.0-1.0 10^3/uL Eosinophils # (Auto) 0.3 0.0-0.3 10^3/uL Basophils # (Auto) 0.1 0.0-0.1 10^3/uL Immature Granulocyte # (Auto) 0.1 0.0-0.1 10^3/uL Sodium Level 134 L 135-145 MMOL/L Potassium Level 4.0 3.6-5.0 MMOL/L Chloride Level 96 L 98-107 MMOL/L Carbon Dioxide Level 25 21-32 MMOL/L Anion Gap 13 5-14 MMOL/L Blood Urea Nitrogen 9 7-18 MG/DL Creatinine 0.88 0.60-1.30 MG/DL Estimat Glomerular Filtration Rate 71 BUN/Creatinine Ratio 10 Glucose Level 357 H 70-105 MG/DL Calcium Level 8.7 8.5-10.1 MG/DL Corrected Calcium 9.2 8.5-10.1 MG/DL Total Bilirubin 0.4 0.1-1.0 MG/DL Aspartate Amino Transf (AST/SGOT) 9 5-34 U/L Alanine Aminotransferase (ALT/SGPT) 14 0-55 U/L Alkaline Phosphatase 104 40-136 U/L Total Protein 6.5 6.4-8.2 GM/DL Albumin 3.4 3.2-4.5 GM/DL TSH Page Testing 2.19 0.35-4.94 UIU/ML Salicylates Level < 5.0 L 5.0-20.0 MG/DL Acetaminophen Level < 10 L 10-30 UG/ML Serum Alcohol < 10 <10 MG/DL Glucometer 299 H 70-110 MG/DL My Orders Orders - DANIELLE KEARNS DO Ua Culture If Indicated (03/09/23 00:59) Cbc With Automated Diff (03/09/23 00:59) Comprehensive Metabolic Panel (03/09/23 00:59) Alcohol (03/09/23 00:59) Drug Screen Stat (Urine) (03/09/23 00:59) Acetaminophen (03/09/23 00:59) Salicylate (03/09/23 00:59) Ekg Tracing (03/09/23 00:59) Ed Iv/Invasive Line Start (5/10/23 00:59) Thyroid Analyzer (03/09/23 00:59) Monitor-Rhythm Ecg Trace Only (03/09/23 00:59) Bh Status Checks/Observation O Q15M (03/09/23 00:59) Chest 1 View, Ap/Pa Only (03/09/23 01:21) Insulin Aspart (Novolog) (Novolog (Charg (03/09/23 01:45) Ed Admission (Communication) (03/09/23 01:50) Medications Given in ED Current Medications Medications Dose Ordered Sig/Minal Route Start Time Stop Time Status Last Admin Dose Admin Insulin Aspart 10 unit ONCE ONCE SC 03/09/23 01:45 03/09/23 01:46 DC 03/09/23 01:43 10 UNIT Vital Signs/I&O 03/09/23 03/09/23 03/09/23 03/09/23 00:47 00:53 02:42 04:00 Temp 36.7 36.7 Pulse 80 77 74 Resp 16 16 16 B/P (MAP) 155/73 (100) 150/73 133/79 (97) Pulse Ox 88 95 94 O2 Delivery Room Air Nasal Cannula Nasal Cannula Nasal Cannula O2 Flow Rate 4.00 4.00 5.00 Comment Independently reviewed EKG shows sinus rhythm at 76 bpm. Normal intervals. Normal axis. No ST or T wave abnormalities. No ectopy. No STEMI. Departure Impression Primary Impression: Hypoxia Additional Impressions: Overdose Qualified Codes: T50.902A - Poisoning by unspecified drugs, medicaments and biological substances, intentional self-harm, initial encounter Depression Qualified Codes: F32.A - Depression, unspecified Disposition: ADMITTED INPATIENT Condition: Stable Departure-Patient Inst. Referrals: KAYLA GUTIERREZ MD (PCP/Family) Primary Care Physician Patient Instructions: ALCOHOL AND SUBSTANCE ABUSE SOMDANIELLE Garber DO March 09, 2023 01:04
[2023-03-09 01:12] LABS: BASOPHILS # (AUTO) 0.1 10^3/uL (0.0-0.1); BASOPHILS % (AUTO) 1 % (0-10); EOSINOPHILS # (AUTO) 0.3 10^3/uL (0.0-0.3); EOSINOPHILS % (AUTO) 3 % (0-10); HEMATOCRIT 42 % (35-52); HEMOGLOBIN 13.9 g/dL (11.5-16.0); LYMPHOCYTES # (AUTO) 1.9 10^3/uL (1.0-4.0); LYMPHOCYTES % (AUTO) 17 % (12-44); MEAN CORPUSCULAR HEMOGLOBIN 29 pg (25-34); MEAN CORPUSCULAR HGB CONC 33 g/dL (32-36); MEAN CORPUSCULAR VOLUME 87 fL (80-99); MEAN PLATELET VOLUME 12.1 fL (9.0-12.2); MONOCYTES # (AUTO) 0.6 10^3/uL (0.0-1.0); MONOCYTES % (AUTO) 5 % (0-12); NEUTROPHILS # (AUTO) 7.9 10^3/uL (1.8-7.8); NEUTROPHILS % (AUTO) 73 % (42-75); PLATELET COUNT 74 10^3/uL (130-400); WHITE BLOOD COUNT 10.8 10^3/uL (4.3-11.0)
[2023-03-09 01:21] LABS: ALBUMIN 3.4 GM/DL (3.2-4.5); CHLORIDE 96 MMOL/L (98-107); SODIUM 134 MMOL/L (135-145)
[2023-03-09 01:23] LABS: CALCIUM 8.7 MG/DL (8.5-10.1)
[2023-03-09 01:24] LABS: GLUCOSE 357 MG/DL (70-105); TOTAL PROTEIN 6.5 GM/DL (6.4-8.2)
[2023-03-09 01:25] LABS: CARBON DIOXIDE 25 MMOL/L (21-32)
[2023-03-09 01:26] LABS: BILIRUBIN,TOTAL 0.4 MG/DL (0.1-1.0)
[2023-03-09 01:28] LABS: ALKALINE PHOSPHATASE 104 U/L (40-136); CREATININE SERUM 0.88 MG/DL (0.60-1.30); GFR ESTIMATED 71
[2023-03-09 01:29] LABS: BUN/CREATININE RATIO 10
[2023-03-09 01:30] LABS: SALICYLATE < 5.0 MG/DL (5.0-20.0)
[2023-03-09 01:31] LABS: ALANINE AMINOTRANSFERASE 14 U/L (0-55)
[2023-03-09] MEDS ORDERED: inSUlin ASPART (NovoLOG) 1 UNIT/0.01 ML (CHARGE PER UNIT) SC ONE (01:45)
[2023-03-09 01:51] LABS: ACETAMINOPHEN < 10 UG/ML (10-30)
[2023-03-09 04:00] VITALS: BP 133/79
[2023-03-09] MEDS: CATHETER FLUSH 10 ML SYR IVP SCH ×3 (06:18→20:23)
[2023-03-09] MEDS: inSUlin ASPART (NovoLOG) 1 UNIT/0.01 ML (CHARGE PER UNIT) SC SCH ×5 (06:18→20:22)
--- NOTE | 2023-03-09 07:04 | Diagnostic Imaging Report ---
INDICATION: Dyspnea and hypoxia, overdose. COMPARISON: 02/08/2023. FINDINGS: There is perihilar and basilar atelectasis or infiltrates increased from prior. There is poor inspiratory volume crowding the lung markings. Heart size upper limits but is unchanged. No appreciable pleural fluid. IMPRESSION: Body habitus and limited inspiration challenges interpretation. There are perihilar and basilar pulmonary opacities likely in large part atelectasis, however an element of edema or pneumonia superimposed could not be excluded. Stable heart size. No acute pleural pathology. Dictated by: Dictated on workstation # [id number]
[2023-03-09 07:40] VITALS: BP 106/50
[2023-03-09] MEDS ORDERED: ONDANSETRON 4 MG/2 ML (SDV) Z0FRAN IVP PRN (09:30)
--- NOTE | 2023-03-09 10:18 | History & Physical ---
HPI History of Present Illness: 68 yo F with recent admission and d/c to SNF. She states that she was discharged home 2 days ago and that she was very unhappy to be discharged home. States that her house is lonely and dark so she wanted to go to sleep so she took a handful of meds. This AM she states that she was not trying to hurt herself that she was only trying to go to sleep. States that she was doing well at the SNF. Source: patient Exam Limitations: no limitations Date seen by provider: March 09, 2023 Time Seen by Provider: 10:05 Attending Physician Zeenat Hubbard MD PCP Admitting Physician: Reji Mendes MD Attending Physician: Reji Mendes MD Consult Date of Admission March 09, 2023 at 02:44 Home Medications Home Medications Reviewed patient Home Medication Reconciliation performed by pharmacy medication reconciliations structured cabling technician and/or nursing. Patients Allergies have been reviewed. Allergies Coded Allergies: exenatide (Unverified Allergy, Unknown, 03/24/22) methylphenidate (Unverified Allergy, Unknown, 03/24/22) morphine (Verified Adverse Reaction, Mild, NAUSEA, 05/19/16) sulfamethoxazole (Unverified Adverse Reaction, Unknown, 10/13/22) HALLUCINATIONS trimethoprim (Unverified Adverse Reaction, Unknown, 10/13/22) HALLUCINATIONS JJP-Akvbht-Vjyzdb Hx Patient Social History Living Status: Lives at home independently alone Drug of Choice: PT DENIES 2nd Hand Smoke Exposure: Yes Recent Hopitalizations: No Alcohol Use?: No Have you traveled recently?: No Immunizations Up To Date Tetanus Booster (TDap): Unknown Influenza Vaccine Up-to-Date: Yes; Up-to-Date First/Initial COVID19 Vaccinat: 2020 Second COVID19 Vaccination Dae: 2020 Third COVID19 Vaccination Date: 07/2021 COVID19 Vaccine Boxing Inspector: STATES "I'VE EVEN RECEIVED OMICRON" Past Medical History IDDM HTN COPD Tobacco USE Arthritis GERD Dementia Psoriasis Anxiety Depression Alcohol Abuse Medical Noncompliance Frequent Falls Family Medical History Significant Family History: Cancer, Diabetes, Hypertension Family History: AIDS Alcoholism Arthritis Asthma Cataracts Coronary thrombosis Diabetes mellitus Drug abuse Glaucoma Psychosocial problem Respiratory disorder No Family History of: [place]'s disease Alzheimer's disease Aphasia Cancer of mouth Cardiovascular disease Colon cancer Completed stroke Congenital disease Congenital heart disease Cystic fibrosis Deafness or hearing loss Dementia Dysphasia Fibrocystic disease of breast Gastroenteritis Headache disorder Hypercholesterolemia Hypertension Infertility Kidney disease Myocardial infarction Neoplasm Not obtainable due to adoption Osteoporosis Parkinson's disease Prostate cancer Seizure disorder Severe allergy Thyroid disease Tuberculosis Visual disorder Review of Systems ([facility]) Constitutional: malaise EENTM: no symptoms reported; No mouth pain, No nose congestion, No nose pain Respiratory: No cough; dyspnea on exertion Cardiovascular: no symptoms reported; No chest pain; edema; No palpitations Gastrointestinal: No abdominal pain, No constipation, No diarrhea; nausea, vomiting Genitourinary: no symptoms reported Musculoskeletal: back pain, joint pain Skin: dryness Psychiatric/Neurological: Anxiety, Depressed Reviewed Test Results Reviewed Test Results Lab Laboratory Tests Test 03/09/23 01:02 03/09/23 03:14 03/09/23 10:30 03/09/23 12:00 Range/Units White Blood Count 10.8 4.3-11.0 10^3/uL Red Blood Count 4.84 3.80-5.11 10^6/uL Hemoglobin 13.9 11.5-16.0 g/dL Hematocrit 42 35-52 % Mean Corpuscular Volume 87 80-99 fL Mean Corpuscular Hemoglobin 29 25-34 pg Mean Corpuscular Hemoglobin Concent 33 32-36 g/dL Red Cell Distribution Width 14.9 H 10.0-14.5 % Platelet Count 74 L 130-400 10^3/uL Mean Platelet Volume 12.1 9.0-12.2 fL Immature Granulocyte % (Auto) 1 % Neutrophils (%) (Auto) 73 42-75 % Lymphocytes (%) (Auto) 17 12-44 % Monocytes (%) (Auto) 5 0-12 % Eosinophils (%) (Auto) 3 0-10 % Basophils (%) (Auto) 1 0-10 % Neutrophils # (Auto) 7.9 H 1.8-7.8 10^3/uL Lymphocytes # (Auto) 1.9 1.0-4.0 10^3/uL Monocytes # (Auto) 0.6 0.0-1.0 10^3/uL Eosinophils # (Auto) 0.3 0.0-0.3 10^3/uL Basophils # (Auto) 0.1 0.0-0.1 10^3/uL Immature Granulocyte # (Auto) 0.1 0.0-0.1 10^3/uL Sodium Level 134 L 135-145 MMOL/L Potassium Level 4.0 3.6-5.0 MMOL/L Chloride Level 96 L 98-107 MMOL/L Carbon Dioxide Level 25 21-32 MMOL/L Anion Gap 13 5-14 MMOL/L Blood Urea Nitrogen 9 7-18 MG/DL Creatinine 0.88 0.60-1.30 MG/DL Estimat Glomerular Filtration Rate 71 BUN/Creatinine Ratio 10 Glucose Level 357 H 70-105 MG/DL Calcium Level 8.7 8.5-10.1 MG/DL Corrected Calcium 9.2 8.5-10.1 MG/DL Total Bilirubin 0.4 0.1-1.0 MG/DL Aspartate Amino Transf (AST/SGOT) 9 5-34 U/L Alanine Aminotransferase (ALT/SGPT) 14 0-55 U/L Alkaline Phosphatase 104 40-136 U/L Total Protein 6.5 6.4-8.2 GM/DL Albumin 3.4 3.2-4.5 GM/DL TSH [place] Testing 2.19 0.35-4.94 UIU/ML Salicylates Level < 5.0 L 5.0-20.0 MG/DL Acetaminophen Level < 10 L 10-30 UG/ML Serum Alcohol < 10 <10 MG/DL Glucometer 299 H 310 H 70-110 MG/DL Lactic Acid Level 0.69 0.50-2.00 MMOL/L Physical Exam-([facility]) Physical Exam Vital Signs VS - Last 72 Hours, by Label 03/09/23 03/09/23 03/09/23 03/09/23 00:47 00:53 02:42 04:00 Temp 36.7 36.7 Pulse 80 77 74 Resp 16 16 16 B/P (MAP) 155/73 (100) 150/73 133/79 (97) Pulse Ox 88 95 94 O2 Delivery Room Air Nasal Cannula Nasal Cannula Nasal Cannula O2 Flow Rate 4.00 4.00 5.00 03/09/23 03/09/23 03/09/23 03/09/23 05:57 06:58 07:40 07:54 Temp 36.8 Pulse 80 87 73 Resp 20 B/P (MAP) 106/50 (68) Pulse Ox 93 O2 Delivery Nasal Cannula Nasal Cannula O2 Flow Rate 5.00 5.00 03/09/23 11:46 Temp 36.6 Pulse 75 Resp 20 B/P (MAP) 165/72 (103) Pulse Ox 92 O2 Delivery Nasal Cannula O2 Flow Rate 5.00 Capillary Refill : Less Than 3 Seconds General Appearance: WD/WN, no apparent distress HEENT: PERRL/EOMI Neck: non-tender, full range of motion, supple Respiratory: chest non-tender, lungs clear, normal breath sounds, no r espiratory distress, no accessory muscle use; No accessory muscle use, No crackles Cardiovascular: normal peripheral pulses, regular rate, rhythm, no murmur Gastrointestinal: non tender, soft; No guarding, No rebound, No tenderness Back: no CVA tenderness Extremities: normal range of motion, non-tender, normal capillary refill, pedal edema (2+ bilaterally with chronic venous stasis changes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, alert, oriented x 3 Skin: normal color, warm/dry Lymphatic: no adenopathy Assessment/Plan Assessment/Plan Admission Status: Inpatient Order (span 2 midnights) Reason for Inpatient Admission: Close monitoring after drug overdose, high risk of decomensation (1) Intentional overdose Status: Acute Assessment & Plan: - Will have patient screened by mental health (2) Depression Status: Chronic Qualifiers: Qualified Codes: F32.A - Depression, unspecified (3) Hypertension Status: Chronic Assessment & Plan: - Continue home meds (4) Type 2 diabetes mellitus, with long-term current use of insulin Status: Chronic Assessment & Plan: - Continue home meds (5) Tobacco abuse Status: Chronic REJI MENDES MD March 09, 2023 10:18
[2023-03-09 11:46] VITALS: BP 165/72
[2023-03-09 15:50] VITALS: BP 144/65
[2023-03-09] MEDS ORDERED: INSULIN ASPART 16 UNIT SC SCH (17:00)
[2023-03-09 18:33] LABS: BILIRUBIN,URINE NEGATIVE (NEGATIVE); CLARITY,URINE CLEAR; COLOR,URINE YELLOW; GLUCOSE, URINE (UA) 2+ (NEGATIVE); KETONES,URINE NEGATIVE (NEGATIVE); LEUKOCYTE ESTERASE ,URINE NEGATIVE (NEGATIVE); NITRITE,URINE NEGATIVE (NEGATIVE); PROTEIN,URINE 1+ (NEGATIVE)
[2023-03-09 18:51] LABS: AMPHETAMINE SCREEN, URINE NEGATIVE (NEGATIVE); BARBITURATE SCREEN URINE NEGATIVE (NEGATIVE); BENZODIAZEPINES SCREEN URINE NEGATIVE (NEGATIVE); CANNABINOID SCREEN, URINE NEGATIVE (NEGATIVE); COCAINE SCREEN URINE NEGATIVE (NEGATIVE); METHADONE STAT NEGATIVE (NEGATIVE); OPIATE SCREEN URINE NEGATIVE (NEGATIVE); OXYCODONE STAT NEGATIVE (NEGATIVE); PROPOXYPHENE STAT NEGATIVE (NEGATIVE); TRICYCLIC ANTIDEPRESSANTS SCRE NEGATIVE (NEGATIVE)
[2023-03-09 18:54] LABS: BACTERIA,URINE NEGATIVE /HPF; SQUAMOUS EPITHELIAL CELL,UR 0-2 /HPF
[2023-03-09 19:27] VITALS: BP 136/74
[2023-03-09] MEDS ORDERED: INSULIN DEGLUDEC 40 UNIT SQ SCH (21:00)
[2023-03-09 23:29] VITALS: BP 179/79
[2023-03-10 03:54] VITALS: BP 127/77
[2023-03-10 05:24] LABS: BASOPHILS % (AUTO) 0 % (0-10); HEMOGLOBIN 13.8 g/dL (11.5-16.0); MEAN CORPUSCULAR VOLUME 88 fL (80-99)
[2023-03-10 05:26] LABS: EOSINOPHILS # (AUTO) 0.3 10^3/uL (0.0-0.3); EOSINOPHILS % (AUTO) 3 % (0-10); HEMATOCRIT 42 % (35-52); LYMPHOCYTES # (AUTO) 1.7 10^3/uL (1.0-4.0); LYMPHOCYTES % (AUTO) 16 % (12-44); MEAN CORPUSCULAR HEMOGLOBIN 29 pg (25-34); MEAN CORPUSCULAR HGB CONC 33 g/dL (32-36); MEAN PLATELET VOLUME 12.2 fL (9.0-12.2); MONOCYTES # (AUTO) 0.7 10^3/uL (0.0-1.0); MONOCYTES % (AUTO) 6 % (0-12); NEUTROPHILS % (AUTO) 75 % (42-75); PLATELET COUNT 78 10^3/uL (130-400); WHITE BLOOD COUNT 10.7 10^3/uL (4.3-11.0)
[2023-03-10 05:29] LABS: ALBUMIN 3.4 GM/DL (3.2-4.5)
[2023-03-10 05:31] LABS: CALCIUM 8.9 MG/DL (8.5-10.1)
[2023-03-10 05:32] LABS: TOTAL PROTEIN 6.4 GM/DL (6.4-8.2)
[2023-03-10 05:34] LABS: BILIRUBIN,TOTAL 0.3 MG/DL (0.1-1.0)
[2023-03-10 05:35] LABS: CREATININE SERUM 0.81 MG/DL (0.60-1.30)
[2023-03-10] MEDS: inSUlin ASPART (NovoLOG) 1 UNIT/0.01 ML (CHARGE PER UNIT) SC SCH ×4 (06:34→12:00)
[2023-03-10] MEDS: CATHETER FLUSH 10 ML SYR IVP SCH (06:35)
[2023-03-10 07:08] VITALS: BP 142/82
[2023-03-10] MEDS ORDERED: amLODIPine 10 MG (NORVASC) TAB PO SCH (09:00)
[2023-03-10] MEDS ORDERED: buPROPion SR 100 MG (WELLBUTRIN SR) TAB PO SCH (09:00)
[2023-03-10] MEDS ORDERED: LOSARTAN 50 MG (COZAAR) TAB PO SCH (09:00)
[2023-03-10 11:13] VITALS: BP 126/65
--- NOTE | 2023-03-10 11:33 | Discharge Summary ---
Diagnosis/Chief Complaint Date of Admission March 09, 2023 at 02:44 Date of Discharge 03/10/2023 Admission Diagnosis Admission Diagnosis See problem list Discharge Diagnosis See below Problems/Diagnosis: (1) Intentional overdose Assessment & Plan: - Will have patient screened by mental health 03/10: Screened by mental health, patient to reestablish with her therapist Status: Acute (2) Depression Qualifiers: Qualified Codes: F32.A - Depression, unspecified Status: Chronic (3) Hypertension Assessment & Plan: - Continue home meds Status: Chronic (4) Type 2 diabetes mellitus, with long-term current use of insulin Assessment & Plan: - Continue home meds Qualifiers: Qualified Codes: E11.65 - Type 2 diabetes mellitus with hyperglycemia; Z79.4 - manager terminal (current) use of insulin Status: Chronic (5) Tobacco abuse Status: Chronic Chief Complaint/HPI Chief Complaint/HPI 68 yo F with recent admission and d/c to SNF. She states that she was discharged home 2 days ago and that she was very unhappy to be discharged home. States that her house is lonely and dark so she wanted to go to sleep so she took a handful of meds. This AM she states that she was not trying to hurt herself that she was only trying to go to sleep. States that she was doing well at the SNF. Discharge Summary-Simple/Stand Consultations Discharge Physical Examination Allergies: Coded Allergies: exenatide (Unverified Allergy, Unknown, 03/24/22) methylphenidate (Unverified Allergy, Unknown, 03/24/22) morphine (Verified Adverse Reaction, Mild, NAUSEA, 05/19/16) sulfamethoxazole (Unverified Adverse Reaction, Unknown, 10/13/22) HALLUCINATIONS trimethoprim (Unverified Adverse Reaction, Unknown, 10/13/22) HALLUCINATIONS Vitals & I&Os Vital Sign - Last 12Hours Date Time Temp Pulse Resp B/P (MAP) Pulse Ox O2 Delivery O2 Flow Rate FiO2 03/10/23 11:13 36.8 71 18 126/65 (85) 96 Nasal Cannula 4.00 Intake and Output 03/10/23 00:00 Intake Total 2460 ml Output Total 500 ml Balance 1960 ml General Appearance: Alert, Oriented X3, No Acute Distress Respiratory: Clear to Auscultation, Normal Air Movement Cardiovascular: Regular Rate, No Murmurs Abdominal: Normal Bowel Sounds, Soft, No Tenderness Extremities: Other (2+ pitting edema, chronic venous stasis changes bilaterally) Neuro: Normal Speech, Cranial Nerves 3-12 NL Psych/Mental Status: Other (depressed affect) Hospital Course See final discharge diagnosis. Discussion & Recommendations 68 yo F that presented to ER after intentional overdose of medications. States that she was not wanting to kill herself but had alot of stuff on her mind with getting discharged home and her son's birthday. She was seen by mental health screener while inpatient. She is willing to reestablish with her therapist and is appropriate when it comes to adequate f.u. Will d/c home today with close f.u. Discharge Condition at discharge stable Instructions to patient/family Please see electronic discharge instructions given to patient. Discharge Medications Reviewed and agree with Discharge Medication list on patient's Discharge Instruction sheet Copy Copies To 1: KAYLA GUTIERREZ MD, HOLLY R MD March 10, 2023 11:33
--- NOTE | 2023-03-10 11:35 | Discharge Summary ---
Discharge [facility] Discharge Medications New, Converted or Re-Newed RX: Transmitted to Pharmacy Continued Medications: Amlodipine Besylate (Amlodipine Besylate) 10 Mg Tablet 10 MG PO DAILY, #30 TAB 0 Refills Bupropion HCl (Bupropion HCl Sr) 100 Mg Tablet.er 100 MG PO DAILY, #30 TAB Buspirone HCl (Buspirone HCl) 30 Mg Tablet 30 MG PO BID, #60 TAB Ergocalciferol (Vitamin D2) (Vitamin D2) 1,250 Mcg (94921 Unit) Capsule 1250 MCG PO WED,SAT, #8 CAP Furosemide (Furosemide) 40 Mg Tablet 40 MG PO DAILY, #30 TAB Gabapentin (Gabapentin) 800 Mg Tablet 800 MG PO TID, #90 TAB Gabapentin (Gabapentin) 800 Mg Tablet 1200 MG PO HS, #60 TAB Hydralazine HCl (Hydralazine HCl) 25 Mg Tablet 25 MG PO TID, #90 TAB 0 Refills Insulin Aspart (Novolog Flexpen) 100 Unit/Ml (3 Ml) Solution 16 UNITS SC TIDAC, #1 EACH Insulin Degludec (Tresiba Flextouch U-100) 100 Unit/Ml (3 Ml) Insuln.pen 40 UNIT SQ HS, #1 EA Losartan Potassium (Losartan Potassium) 50 Mg Tablet 50 MG PO DAILY, #30 TAB Melatonin (Melatonin) 3 Mg Tablet 6 MG PO HS PRN for INSOMNIA, #30 TAB Metformin HCl (Metformin HCl) 1,000 Mg Tablet 1000 MG PO BID, #60 TAB Rosuvastatin Calcium (Rosuvastatin Calcium) 20 Mg Tablet 20 MG PO DAILY, #30 TAB Tirzepatide (Mounjaro) 2.5 Mg/0.5 Ml Pen.injctr 2.5 MG SQ SAT, #1 EA Discontinued Medications: Clonazepam (Clonazepam) 1 Mg Tablet 1 MG PO TID PRN for ANXIETY, #30 TAB Topiramate (Topiramate) 50 Mg Tablet 50 MG PO DAILY, #30 TAB Patient Instructions Goal/Follow Up Appt: [address] Hubbard Activity & Diet Discharge Diet: ADA Diet Activity as Tolerated: Yes REJI ROY MD March 10, 2023 11:35
[2023-03-10 13:17] VITALS: BP 126/65
--- NOTE | 2023-03-10 19:16 | Physician Query Clarification ---
Physician Query-General Query to Physician: The medical record reflects the following clinical evidence: Clinical Indicators: on arrival to ER 02 sat 88% on 2L per EMS, RR 16 on admission has been no higher than 20, was on nasal cannula off-and-on throughout stay at 4 to 5 L, 88% sats when on room air, O2 sats on 5 L 92-94%, (P/F= 6 163- 183), shortness of air with exertion on admission Risk Factor(s): No documentation of Home 02 use, Tobacco and alcohol abuse admitted for overdose Treatment: Supplemental 02 up to 5L, Respiratory Monitoring, Respiratory failure, with hypoxia, present on admission Other explanation of clinical findings Unable to determine (no explanation for clinical findings) Please clarify and document your clinical opinion in the progress notes and discharge summary including the definitive and/or presumptive diagnosis, (suspected or probable), related to the above clinical findings. Please include clinical findings supporting your diagnosis. Dora Leon, MSN, RN Clinical Human Resources Vice President [phone] [email or web address] PHYSICIAN RESPONSE: Based on the clinical findings in the record, please respond to the query above on this document as an addendum. Physician Response: Physician Response this was not my patient it was Dr. Reji Mendes's patient If you have questions please contact: Pipeliner: Ext: Thank you for your time and cooperation. Clinical Human Resources Vice President/Pipeliner This is a permanent part of the medical record DORA LEON March 10, 2023 19:16 REJI MALIK MD March 11, 2023 17:29
--- NOTE | 2023-03-14 08:53 | Physician Query Clarification ---
Physician Query-General Query to Physician: The medical record reflects the following clinical evidence: Clinical Indicators: on arrival to ER 02 sat 88% on 2L per EMS, RR 16 on admission has been no higher than 20, was on nasal cannula off-and-on throughout stay at 4 to 5 L, 88% sats when on room air, O2 sats on 5 L 92-94%, (P/F= 6 163- 183), shortness of air with exertion on admission Risk Factor(s): No documentation of Home 02 use, Tobacco and alcohol abuse admitted for overdose Treatment: Supplemental 02 up to 5L, Respiratory Monitoring, Respiratory failure, with hypoxia, present on admission Other explanation of clinical findings Unable to determine (no explanation for clinical findings) Please clarify and document your clinical opinion in the progress notes and discharge summary including the definitive and/or presumptive diagnosis, (suspected or probable), related to the above clinical findings. Please include clinical findings supporting your diagnosis. Dora Leon, MSN, RN Clinical Agriculture Department Chair [phone] [email or web address] PHYSICIAN RESPONSE: Based on the clinical findings in the record, please respond to the query above on this document as an addendum. Physician Response: If you have questions please contact: Ceramic Tile Mechanic: Ext: Thank you for your time and cooperation. Clinical Agriculture Department Chair/Ceramic Tile Mechanic This is a permanent part of the medical record DORA LEON March 14, 2023 08:53
== END 2023-03-10 13:22 | disposition home or self-care (01) | DRG 918 ==
LOC: EDUNIT# 00:47 → ER 00:49 → 4TH 02:44
PROVIDERS: ADMIT Family Medicine; ATTEND Family Medicine
DX: T42.6X2A Poisoning by other antiepileptic and sedative-hypnotic drugs, intentional self-harm, initial encounter (principal); T42.4X2A Poisoning by benzodiazepines, intentional self-harm, initial encounter; F32.A Depression, unspecified; R09.02 Hypoxemia; Z79.4 Long term (current) use of insulin; Z79.84 Long term (current) use of oral hypoglycemic drugs; Z79.899 Other long term (current) drug therapy; E11.40 Type 2 diabetes mellitus with diabetic neuropathy, unspecified; J44.9 Chronic obstructive pulmonary disease, unspecified; I10 Essential (primary) hypertension; K21.9 Gastro-esophageal reflux disease without esophagitis; M19.90 Unspecified osteoarthritis, unspecified site; F41.9 Anxiety disorder, unspecified; Z85.820 Personal history of malignant melanoma of skin; I87.8 Other specified disorders of veins; F03.90 Unspecified dementia, unspecified severity, without behavioral disturbance, psychotic disturbance, mood disturbance, and anxiety; Z91.199 Patient's noncompliance with other medical treatment and regimen due to unspecified reason
CPT/HCPCS: 36415; 71045; 80053; 80306; 80320; 80329; 81000; 82947; 83605; 84443; 85025; 93005; 93041

== ENCOUNTER 2023-03-19 19:24 | Emergency (ER) | payer MEDICARE ==
[~2023-03-19] VITALS: Ht 165 cm; Wt 122.0 kg
[2023-03-19] MEDS ORDERED: ONDANSETRON 4 MG/2 ML (SDV) Z0FRAN IVP ONE (20:00)
--- NOTE | 2023-03-19 20:04 | ED GU-Female ---
General Chief Complaint: - 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 Stated Complaint: NAUSEA/UTI SYMPTOMS/DIZZY/CONSTIPATION Source: patient, old records Exam Limitations: no limitations History of Present Illness Date Seen by Provider: March 19, 2023 Time Seen by Provider: 19:27 Initial Comments 68-year-old female with past medical history of diabetes, hypertension, anxiety coming in due to a few different issues. She has had urinary frequency and some discomfort with urination for the past several days. She has had some sharp intermittent pain in her right ear for the past couple days which she is concerned she could have an infection in her ear. Has subjectively felt a little warm, but no objective fevers. Has also had nausea for couple days with no vomiting. Had a normal bowel movement today. Denies any chest pain, shortness of breath, abdominal pain, vomiting, diarrhea, focal weakness or numbness, or any other concerns. She does endorse skin color changes to her lower extremities, and she hit her myles on something a couple days ago. Allergies and Home Medications Allergies Coded Allergies: exenatide (Unverified Allergy, Unknown, 03/24/22) methylphenidate (Unverified Allergy, Unknown, 03/24/22) morphine (Verified Adverse Reaction, Mild, NAUSEA, 05/19/16) sulfamethoxazole (Unverified Adverse Reaction, Unknown, 10/13/22) HALLUCINATIONS trimethoprim (Unverified Adverse Reaction, Unknown, 10/13/22) HALLUCINATIONS Patient Home Medication List Home Medication List Reviewed: Yes Amlodipine Besylate (Amlodipine Besylate) 10 Mg Tablet, 10 MG PO DAILY Prescribed by: SHANE GALVAN on 02/21/23 1125 Bupropion HCl (Bupropion HCl Sr) 100 Mg Tablet.er, 100 MG PO DAILY Prescribed by: HERMILA SWAIN on 02/14/23 1028 Buspirone HCl (Buspirone HCl) 30 Mg Tablet, 30 MG PO BID Prescribed by: HERMILA SWAIN on 02/14/23 1028 Cephalexin (Cephalexin) 500 Mg Tablet, 500 MG PO QID Prescribed by: KEELEY GARZON on 03/19/232042 Ergocalciferol (Vitamin D2) (Vitamin D2) 1,250 Mcg (94622 Unit) Capsule, 1,250 MCG PO TUE,TUE Prescribed by: HERMILA SWAIN on 02/14/23 1028 Furosemide (Furosemide) 40 Mg Tablet, 40 MG PO DAILY Prescribed by: HERMILA SWAIN on 02/14/23 1028 Gabapentin (Gabapentin) 800 Mg Tablet, 800 MG PO TID Prescribed by: HERMIAL SWAIN on 02/14/23 1028 Gabapentin (Gabapentin) 800 Mg Tablet, 1,200 MG PO HS Prescribed by: HERMILA SWAIN on 02/14/23 1028 Hydralazine HCl (Hydralazine HCl) 25 Mg Tablet, 25 MG PO TID Prescribed by: SHANE GALVAN on 02/21/23 1123 Insulin Aspart (Novolog Flexpen) 100 Unit/Ml (3 Ml) Solution, 16 UNITS SC TIDAC Prescribed by: HERMILA SWAIN on 02/14/23 1028 Insulin Degludec (Tresiba Flextouch U-100) 100 Unit/Ml (3 Ml) Insuln.pen, 40 UNIT SQ HS Prescribed by: HERMILA SWAIN on 02/14/23 1028 Losartan Potassium (Losartan Potassium) 50 Mg Tablet, 50 MG PO DAILY Prescribed by: HERMILA SWAIN on 02/14/23 1028 Melatonin (Melatonin) 3 Mg Tablet, 6 MG PO HS PRN for INSOMNIA Prescribed by: HERMILA SWAIN on 02/14/23 1028 Metformin HCl (Metformin HCl) 1,000 Mg Tablet, 1,000 MG PO BID Prescribed by: HERMILA SWAIN on 02/14/23 1028 Ondansetron (Ondansetron Odt) 4 Mg Tab.rapdis, 4 MG SL Q6H PRN for NAUSEA/VOMITING Prescribed by: KEELEY GARZON on 03/19/232042 Rosuvastatin Calcium (Rosuvastatin Calcium) 20 Mg Tablet, 20 MG PO DAILY Prescribed by: HERMILA SWAIN on 02/14/23 1028 Tirzepatide (Mounjaro) 2.5 Mg/0.5 Ml Pen.injctr, 2.5 MG SQ SAT Prescribed by: HERMILA SWAIN on 02/14/23 1028 Review of Systems Review of Systems Constitutional: malaise EENTM: see HPI Respiratory: no symptoms reported Cardiovascular: no symptoms reported Gastrointestinal: see HPI Genitourinary: no symptoms reported Musculoskeletal: no symptoms reported Skin: see HPI Psychiatric/Neurological: No Symptoms Reported Endocrine: No Symptoms Reported All Other Systemes Reviewed Negative Unless Noted: Yes Past Yslearb-Zymykp-Jxopfg Hx Patient Social History Tobacco Use?: No Immunizations Up To Date Tetanus Booster (TDap): Unknown PED Vaccines UTD: No First/Initial COVID19 Vaccinat: 2020 Second COVID19 Vaccination Dae: 2020 Third COVID19 Vaccination Date: 07/2021 Seasonal Allergies Seasonal Allergies: Yes Past Medical History Surgery/Hospitalization HX: hysterectomy, C section, left knee replacement Surgeries: Yes Abdominal, Section, Hysterectomy, Orthopedic Respiratory: Yes COPD Currently Using CPAP: No Currently Using BIPAP: No Cardiac: Yes Hypertension Neurological: Yes Neuropathy 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 Disorders: No Female 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 Disorders: Denies DIRECTOR 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 History: Hysterectomy, Menopausal Sexually Transmitted Disease: No HIV/AIDS: No Genitourinary: No Gastrointestinal: Yes Gastroesophageal Reflux, Hiatal Hernia Musculoskeletal: Yes Arthritis Endocrine: Yes Diabetes, Insulin dep HEENT: Yes Cataract Loss of Vision: Bilateral Hearing Impairment: Hard of Hearing Cancer: Yes Melanoma Psychosocial: Yes Anxiety, Depression Integumentary: Yes (venous stasis) Psoriasis Blood Disorders: No Adverse Reaction/Blood Tranf: No Family Medical History AIDS Alcoholism Arthritis Asthma Cataracts Coronary thrombosis Diabetes mellitus Drug abuse Glaucoma Psychosocial problem Respiratory disorder No Family History of: Sadiq's disease Alzheimer's disease Aphasia Cancer of mouth Cardiovascular disease Colon cancer Completed stroke Congenital disease Congenital heart disease Cystic fibrosis Deafness or hearing loss Dementia Dysphasia Fibrocystic disease of breast Gastroenteritis Headache disorder Hypercholesterolemia Hypertension Infertility Kidney disease Myocardial infarction Neoplasm Not obtainable due to adoption Osteoporosis Parkinson's disease Prostate cancer Seizure disorder Severe allergy Thyroid disease Tuberculosis Visual disorder Cancer, Diabetes, Hypertension Physical Exam Vital Signs Vital Signs - First Documented 03/19/23 19:55 Temp 37.0 Pulse 75 Resp 18 B/P (MAP) 173/90 (117) Pulse Ox 94 O2 Delivery Room Air Capillary Refill : Height, Weight, BMI Height: 5'65.00" Weight: 252lbs. 14.0oz. [id number]; 47.38 BMI Method:Stated General Appearance: no apparent distress, obese, other (Chronically ill-mustapha earing) HEENT: PERRL/EOMI, normal ENT inspection, TMs normal, pharynx normal Neck: non-tender, full range of motion, supple, normal inspection Cardiovascular: regular rate, rhythm, no murmur Respiratory: chest non-tender, lungs clear, normal breath sounds, no respiratory distress, no accessory muscle use Gastrointestinal: normal bowel sounds, non tender, soft; No distended, No guarding, No rebound Back: normal inspection, no CVA tenderness, no vertebral tenderness Extremities: normal range of motion, non-tender, no calf tenderness, normal capillary refill, pedal edema, other (Chronic venous stasis changes to the bilateral lower extremity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: no motor/sensory deficits, alert, normal mood/affect, oriented x 3 Skin: normal color, warm/dry, other (Slightly more erythema on the left leg where there is an abrasion) Progress/Results/Core Measures Suspected Sepsis SIRS Temperature: Pulse: Respiratory Rate: Laboratory Tests 03/19/23 20:05: White Blood Count 10.4 Blood Pressure / Mean: Laboratory Tests 03/19/23 20:05: Creatinine 0.85, Platelet Count 139, Total Bilirubin 0.3 Results/Orders Lab Results Laboratory Tests Test 03/19/23 20:05 03/19/23 20:15 Range/Units White Blood Count 10.4 4.3-11.0 10^3/uL Red Blood Count 5.89 H 3.80-5.11 10^6/uL Hemoglobin 16.7 H 11.5-16.0 g/dL Hematocrit 50 35-52 % Mean Corpuscular Volume 84 80-99 fL Mean Corpuscular Hemoglobin 28 25-34 pg Mean Corpuscular Hemoglobin Concent 34 32-36 g/dL Red Cell Distribution Width 15.6 H 10.0-14.5 % Platelet Count 139 130-400 10^3/uL Mean Platelet Volume 11.1 9.0-12.2 fL Immature Granulocyte % (Auto) 0 % Neutrophils (%) (Auto) 72 42-75 % Lymphocytes (%) (Auto) 17 12-44 % Monocytes (%) (Auto) 7 0-12 % Eosinophils (%) (Auto) 3 0-10 % Basophils (%) (Auto) 1 0-10 % Neutrophils # (Auto) 7.5 1.8-7.8 10^3/uL Lymphocytes # (Auto) 1.7 1.0-4.0 10^3/uL Monocytes # (Auto) 0.8 0.0-1.0 10^3/uL Eosinophils # (Auto) 0.3 0.0-0.3 10^3/uL Basophils # (Auto) 0.1 0.0-0.1 10^3/uL Immature Granulocyte # (Auto) 0.0 0.0-0.1 10^3/uL Sodium Level 136 135-145 MMOL/L Potassium Level 3.6 3.6-5.0 MMOL/L Chloride Level 101 98-107 MMOL/L Carbon Dioxide Level 23 21-32 MMOL/L Anion Gap 12 5-14 MMOL/L Blood Urea Nitrogen 13 7-18 MG/DL Creatinine 0.85 0.60-1.30 MG/DL Estimat Glomerular Filtration Rate 74 BUN/Creatinine Ratio 15 Glucose Level 82 70-105 MG/DL Calcium Level 9.9 8.5-10.1 MG/DL Corrected Calcium 9.9 8.5-10.1 MG/DL Magnesium Level 2.1 1.6-2.4 MG/DL Total Bilirubin 0.3 0.1-1.0 MG/DL Aspartate Amino Transf (AST/SGOT) 14 5-34 U/L Alanine Aminotransferase (ALT/SGPT) 12 0-55 U/L Alkaline Phosphatase 108 40-136 U/L Total Protein 7.6 6.4-8.2 GM/DL Albumin 4.0 3.2-4.5 GM/DL Lipase 13 8-78 U/L Urine Color YELLOW Urine Clarity CLEAR Urine pH 5.5 5-9 Urine Specific [place] 1.010 L 1.016-1.022 Urine Protein 1+ H NEGATIVE Urine Glucose (UA) NEGATIVE NEGATIVE Urine Ketones NEGATIVE NEGATIVE Urine Nitrite NEGATIVE NEGATIVE Urine Bilirubin NEGATIVE NEGATIVE Urine Urobilinogen 1.0 < = 1.0 MG/DL Urine Leukocyte Esterase NEGATIVE NEGATIVE Urine RBC (Auto) NEGATIVE NEGATIVE Urine RBC NONE /HPF Urine WBC RARE /HPF Urine Squamous Epithelial Cells 10-25 H /HPF Urine Crystals PRESENT H /LPF Urine Amorphous Sediment FEW AMY URATES H /LPF Urine Bacteria TRACE /HPF Urine Casts NONE /LPF Urine Mucus NEGATIVE /LPF Urine Culture Indicated NO My Orders Orders - KEELEY GARZON MD Cbc With Automated Diff (03/19/23 20:00) Comprehensive Metabolic Panel (03/19/23 20:00) Lipase (03/19/23 20:00) Magnesium (03/19/23 20:00) Ua Culture If Indicated (03/19/23 20:00) Ed Iv/Invasive Line Start (03/19/23 20:00) Ondansetron Injection (Zofran Injectio (03/19/23 20:00) Medications Given in ED Current Medications Medications Dose Ordered Sig/Minal Route Start Time Stop Time Status Last Admin Dose Admin Ondansetron HCl 4 mg ONCE ONCE IVP 03/19/23 20:00 03/19/23 20:02 DC 03/19/23 20:36 4 MG Vital Signs/I&O 03/19/23 19:55 Temp 37.0 Pulse 75 Resp 18 B/P (MAP) 173/90 (117) Pulse Ox 94 O2 Delivery Room Air Capillary Refill : Progress Note : Progress Note 68-year-old female with above history coming in for multiple issues. ABCs were intact and vitals were stable on presentation. Physical exam with no obvious otitis media that she was worried about. Urinalysis with no evidence of infection, likely having more urinary frequency because she is drinking more fluids. She is also concerned with her lower extremities. She does have chronic venous stasis changes, the left lower extremity may be slightly more erythematous where she has a break in the skin where she hit her myles. I will put her on Keflex for this. She received Zofran here as well with improvement in her nausea. Basic labs with normal white blood cell count, normal LFTs, normal creatinine, normal lipase. Abdominal exam reassuring with no need for CT abdomen pelvis at this time. She had a bowel movement today and clinically is not obstructed. I believe she is otherwise stable for discharge with outpatient follow-up. She was at home with strict return precautions. Departure Impression Primary Impression: Cellulitis of left lower extremity Additional Impression: Urinary frequency Disposition: 01 HOME, SELF-CARE Condition: Stable Departure-Patient Inst. Decision time for Depature: 20:50 Referrals: KAYLA GUTIERREZ MD (PCP/Family) Primary Care Physician Patient Instructions: Cellulitis (Skin Infection), Adult ED Add. Discharge Instructions: The left leg where there is a skin breakage looks like it could be an early infection, you will be on antibiotics for the next week. This theoretically would cover any ear infection or urine infection if you had those as well, although they looked normal today. Nausea medicines were also sent to your pharmacy. Scripts Promethazine HCl (Promethazine Tablet) 25 Mg Tablet 25 MG PO Q8H PRN for NAUSEA/VOMITING-2ND LINE for 5 Days, #15 TAB Prov: KEELEY GARZON MD 03/19/23 Ondansetron (Ondansetron Odt) 4 Mg Tab.rapdis 4 MG SL Q6H PRN for NAUSEA/VOMITING for 5 Days, #20 TAB Prov: KEELEY GARZON MD 03/19/23 Cephalexin (Cephalexin) 500 Mg Tablet 500 MG PO QID for 7 Days, #28 TAB Prov: KEELEY GARZON MD 03/19/23 KEELEY GARZON MD March 19, 2023 20:04
[2023-03-19 20:13] LABS: BASOPHILS # (AUTO) 0.1 10^3/uL (0.0-0.1); BASOPHILS % (AUTO) 1 % (0-10); EOSINOPHILS # (AUTO) 0.3 10^3/uL (0.0-0.3); EOSINOPHILS % (AUTO) 3 % (0-10); HEMATOCRIT 50 % (35-52); HEMOGLOBIN 16.7 g/dL (11.5-16.0); LYMPHOCYTES # (AUTO) 1.7 10^3/uL (1.0-4.0); LYMPHOCYTES % (AUTO) 17 % (12-44); MEAN CORPUSCULAR HEMOGLOBIN 28 pg (25-34); MEAN CORPUSCULAR HGB CONC 34 g/dL (32-36); MEAN CORPUSCULAR VOLUME 84 fL (80-99); MEAN PLATELET VOLUME 11.1 fL (9.0-12.2); MONOCYTES # (AUTO) 0.8 10^3/uL (0.0-1.0); MONOCYTES % (AUTO) 7 % (0-12); NEUTROPHILS # (AUTO) 7.5 10^3/uL (1.8-7.8); NEUTROPHILS % (AUTO) 72 % (42-75); PLATELET COUNT 139 10^3/uL (130-400); WHITE BLOOD COUNT 10.4 10^3/uL (4.3-11.0)
[2023-03-19 20:21] LABS: POTASSIUM 3.6 MMOL/L (3.6-5.0)
[2023-03-19 20:22] LABS: CALCIUM 9.9 MG/DL (8.5-10.1)
[2023-03-19 20:24] LABS: TOTAL PROTEIN 7.6 GM/DL (6.4-8.2)
[2023-03-19 20:25] LABS: BILIRUBIN,TOTAL 0.3 MG/DL (0.1-1.0)
[2023-03-19 20:27] LABS: CREATININE SERUM 0.85 MG/DL (0.60-1.30)
[2023-03-19 20:27] LABS: BILIRUBIN,URINE NEGATIVE (NEGATIVE); CLARITY,URINE CLEAR; COLOR,URINE YELLOW; GLUCOSE, URINE (UA) NEGATIVE (NEGATIVE); KETONES,URINE NEGATIVE (NEGATIVE); LEUKOCYTE ESTERASE ,URINE NEGATIVE (NEGATIVE); NITRITE,URINE NEGATIVE (NEGATIVE); PH,URINE 5.5 (5-9); PROTEIN,URINE 1+ (NEGATIVE)
[2023-03-19 20:30] LABS: MAGNESIUM 2.1 MG/DL (1.6-2.4)
[2023-03-19 20:38] LABS: AMORPHOUS SEDIMENT,UR FEW AMOR URATES /LPF; BACTERIA,URINE TRACE /HPF; WBC,URINE RARE /HPF
[2023-03-19] MEDS ORDERED: CEPH500T PO (20:43)
[2023-03-19] MEDS ORDERED: ONDA4TAB11 SL (20:43)
[2023-03-19] MEDS ORDERED: PROM25TA14 PO (20:50)
[2023-03-19] MEDS ORDERED: PROMETHAZINE 25 MG (PHENERGAN) TAB PO ONE (21:00)
[2023-03-19 21:11] VITALS: BP 170/84
== END 2023-03-19 21:11 | disposition home or self-care (01) ==
LOC: EDUNIT# 19:24 → ER 19:27
DX: L03.116 Cellulitis of left lower limb (principal); R35.0 Frequency of micturition; E11.40 Type 2 diabetes mellitus with diabetic neuropathy, unspecified; R11.0 Nausea; E66.9 Obesity, unspecified; Z79.4 Long term (current) use of insulin; Z68.42 Body mass index [BMI] 45.0-49.9, adult
CPT/HCPCS: 36415; 80053; 81000; 83690; 83735; 85025

== ENCOUNTER 2023-04-07 20:55 | Inpatient (IN) | payer MEDICARE ==
[~2023-04-07] VITALS: Ht 165 cm; Wt 120.2 kg
[~2023-04-07 20:55] MED LIST changes: +CEPH500T PO; -LOSA100T57 PO; +LOSA100T58 PO
[2023-04-07] MEDS ORDERED: PIPERACILLIN SODIUM/TAZOBACTAM 4.5 GM in NS (IVPB) 100 ML IV ONE (21:30)
[2023-04-07] MEDS ORDERED: NS IV 1000 ML 1,000 ML IV SCH ×2 (21:30→22:30)
[2023-04-07] MEDS ORDERED: LIDOCAINE UROJET 2% GEL 10 ML PKG TOP ONE (21:30)
--- NOTE | 2023-04-07 21:30 | ED General ---
General Chief Complaint: Lower Extremity Stated Complaint: N/V Nursing Triage Note: Pt stated has cellulattis and has a increase of pain on R lower leg x 3 days. Pt has lower leg honorio area and some edema. Pt also c/o of nausea x 1 day, and diarhea yesterday but better today. Source of Information: Patient History of Present Illness Date Seen by Provider: Apr 07, 2023 Time Seen by Provider: 21:15 Initial Comments PT ARRIVES VIA EMS FROM HOME PT WITH MULTIPLE COMPLAINTS STATES "I'M SICK" STATES FOR THE LAST SEVERAL DAYS SHE HAS HAD: -NAUSEA, NO VOMITING--ONLY HAD IT TODAY -DIARRHEA HAD IT 1 TIME YESTERDAY, AND NONE TODAY -BILATERAL LEG REDNESS, SWELLING, AND PAIN STATES "I'VE GOT CELLULITIS AGAIN IN BOTH MY LEGS AND MY FEET" NO FEVER/SWEATS/CHILLS HAS NOT TAKEN ANYTHING FOR SYMPTOMS SYMPTOMS NO DIFFERENT TODAY HAS NOT SOUGHT CARE UNTIL TODAY PT IS INSULIN DEPENDENT DIABETIC--HAS NOT CHECKED HER BLOOD SUGAR TODAy SHE HAS HTN, PSORIASIS AND ARTHRITIS SHE HAS SMOKED 1 PPD, OCCASIONAL ETOH USE, DENIES DRUG USE Allergies and Home Medications Allergies Coded Allergies: exenatide (Unverified Allergy, Unknown, 03/24/22) methylphenidate (Unverified Allergy, Unknown, 03/24/22) morphine (Verified Adverse Reaction, Mild, NAUSEA, 05/19/16) sulfamethoxazole (Unverified Adverse Reaction, Unknown, 10/13/22) HALLUCINATIONS trimethoprim (Unverified Adverse Reaction, Unknown, 10/13/22) HALLUCINATIONS Patient Home Medication List Amlodipine Besylate (Amlodipine Besylate) 10 Mg Tablet, 10 MG PO DAILY Prescribed by: SHANE GALVAN on 02/21/23 1125 Bupropion HCl (Bupropion HCl Sr) 100 Mg Tablet.er, 100 MG PO DAILY Prescribed by: HERMILA SWAIN on 02/14/23 1028 Buspirone HCl (Buspirone HCl) 30 Mg Tablet, 30 MG PO BID Prescribed by: HERMILA SWAIN on 02/14/23 1028 Cephalexin (Cephalexin) 500 Mg Tablet, 500 MG PO QID Prescribed by: KEELEY GARZON on 03/19/232042 Ergocalciferol (Vitamin D2) (Vitamin D2) 1,250 Mcg (67915 Unit) Capsule, 1,250 MCG PO TUE,TUE Prescribed by: HERMILA SWAIN on 02/14/23 1028 Furosemide (Furosemide) 40 Mg Tablet, 40 MG PO DAILY Prescribed by: HERMILA SWAIN on 02/14/23 1028 Gabapentin (Gabapentin) 800 Mg Tablet, 800 MG PO TID Prescribed by: HERMILA SWAIN on 02/14/23 1028 Gabapentin (Gabapentin) 800 Mg Tablet, 1,200 MG PO HS Prescribed by: HERMILA SWAIN on 02/14/23 1028 Hydralazine HCl (Hydralazine HCl) 25 Mg Tablet, 25 MG PO TID Prescribed by: SHANE GALVAN on 02/21/23 1123 Insulin Aspart (Novolog Flexpen) 100 Unit/Ml (3 Ml) Solution, 16 UNITS SC TIDAC Prescribed by: HERMILA SWAIN on 02/14/23 1028 Insulin Degludec (Tresiba Flextouch U-100) 100 Unit/Ml (3 Ml) Insuln.pen, 40 UNIT SQ HS Prescribed by: HERMILA SWAIN on 02/14/23 1028 Losartan Potassium (Losartan Potassium) 50 Mg Tablet, 50 MG PO DAILY Prescribed by: HERMILA SWAIN on 02/14/23 1028 Melatonin (Melatonin) 3 Mg Tablet, 6 MG PO HS PRN for INSOMNIA Prescribed by: HERMILA SWAIN on 02/14/23 1028 Metformin HCl (Metformin HCl) 1,000 Mg Tablet, 1,000 MG PO BID Prescribed by: HERMILA SWAIN on 02/14/23 1028 Ondansetron (Ondansetron Odt) 4 Mg Tab.rapdis, 4 MG SL Q6H PRN for NAUSEA/VOMITING Prescribed by: KEELEY GARZON on 03/19/232042 Promethazine HCl (Promethazine Tablet) 25 Mg Tablet, 25 MG PO Q8H PRN for NAUSEA/VOMITING-2ND LINE Prescribed by: KEELEY GARZON on 03/19/232049 Rosuvastatin Calcium (Rosuvastatin Calcium) 20 Mg Tablet, 20 MG PO DAILY Prescribed by: HERMILA SWAIN on 02/14/23 1028 Tirzepatide (Mounjaro) 2.5 Mg/0.5 Ml Pen.injctr, 2.5 MG SQ SAT Prescribed by: HERMILA SWAIN on 02/14/23 1028 Past Hhgegci-Uovbxb-Oojbgi Hx Patient Social History Tobacco Use?: No Smoking Status: Former Smoker Use of E-Cig and/or Vaping dev: No Substance use?: No Alcohol Use?: No Immunizations Up To Date Tetanus Booster (TDap): Unknown PED Vaccines UTD: No First/Initial COVID19 Vaccinat: UNKNOWN Second COVID19 Vaccination Dae: UNKNOWN Third COVID19 Vaccination Date: UNKNOWN Seasonal Allergies Seasonal Allergies: Yes Past Medical History Surgery/Hospitalization HX: htn, DI, cellulatis, neuropathy, Surgeries: Yes Abdominal, Section, Hysterectomy, Orthopedic Respiratory: Yes COPD Currently Using CPAP: No Currently Using BIPAP: No Cardiac: Yes Hypertension Neurological: Yes Neuropathy 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 Disorders: No Female 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 Disorders: Denies [employer] BOSS History: Hysterectomy, Menopausal Sexually Transmitted Disease: No HIV/AIDS: No Genitourinary: No Gastrointestinal: Yes Gastroesophageal Reflux, Hiatal Hernia Musculoskeletal: Yes Arthritis Endocrine: Yes Diabetes, Insulin dep HEENT: Yes Cataract Loss of Vision: Bilateral Hearing Impairment: Hard of Hearing Cancer: Yes Melanoma Psychosocial: Yes Anxiety, Depression Integumentary: Yes (venous stasis) Psoriasis Blood Disorders: No Adverse Reaction/Blood Tranf: No Family Medical History AIDS Alcoholism Arthritis Asthma Cataracts Coronary thrombosis Diabetes mellitus Drug abuse Glaucoma Psychosocial problem Respiratory disorder No Family History of: Sadiq's disease Alzheimer's disease Aphasia Cancer of mouth Cardiovascular disease Colon cancer Completed stroke Congenital disease Congenital heart disease Cystic fibrosis Deafness or hearing loss Dementia Dysphasia Fibrocystic disease of breast Gastroenteritis Headache disorder Hypercholesterolemia Hypertension Infertility Kidney disease Myocardial infarction Neoplasm Not obtainable due to adoption Osteoporosis Parkinson's disease Prostate cancer Seizure disorder Severe allergy Thyroid disease Tuberculosis Visual disorder Cancer, Diabetes, Hypertension Physical Exam Vital Signs Vital Signs - First Documented 04/07/23 21:02 Temp 36.8 Pulse 72 Resp 20 B/P (MAP) 177/83 (114) Pulse Ox 95 Capillary Refill : Height, Weight, BMI Height: 5'65.00" Weight: 252lbs. 14.0oz. 114.890925bw; 44.00 BMI Method:Stated Focused Exam Sepsis Stage: Ruled Out Reason for ruling out sepsis: DOES NOT MEET CRITERIA Lactate Level 04/07/23 21:23: Lactic Acid Level 1.09 Time of Focused Exam: 22:05 Respiratory: Normal Breath Sounds, No Accessory Muscle Use, No Respiratory Distress Cardiovascular: Regular Rate, Rhythm Capillary Refill: Less Than 3 Seconds Lactic Acid Level Laboratory Tests Test 04/07/23 21:23 Lactic Acid Level 1.09 MMOL/L (0.50-2.00) Within 3hrs of presentation: Admin fluids, Admin ABX, Blood cultures prior to A BX's, Focus exam, Lactate level Progress/Results/Core Measures Suspected Sepsis SIRS Temperature: Pulse: 72 Respiratory Rate: 20 Laboratory Tests 04/07/23 21:23: White Blood Count 13.6H Blood Pressure 177 /83 Mean: 114 04/07/23 21:23: Lactic Acid Level 1.09 Laboratory Tests 04/07/23 21:23: Creatinine 0.88, INR Comment 0.9, Platelet Count 70L, Total Bilirubin 0.3 Results/Orders Lab Results Laboratory Tests Test 04/07/23 21:23 04/07/23 21:36 04/07/23 21:39 Range/Units White Blood Count 13.6 H 4.3-11.0 10^3/uL Red Blood Count 5.53 H 3.80-5.11 10^6/uL Hemoglobin 15.6 11.5-16.0 g/dL Hematocrit 44 35-52 % Mean Corpuscular Volume 80 80-99 fL Mean Corpuscular Hemoglobin 28 25-34 pg Mean Corpuscular Hemoglobin Concent 35 32-36 g/dL Red Cell Distribution Width 13.6 10.0-14.5 % Platelet Count 70 L 130-400 10^3/uL Mean Platelet Volume 13.2 H 9.0-12.2 fL Immature Granulocyte % (Auto) 1 % Neutrophils (%) (Auto) 77 H 42-75 % Lymphocytes (%) (Auto) 15 12-44 % Monocytes (%) (Auto) 5 0-12 % Eosinophils (%) (Auto) 2 0-10 % Basophils (%) (Auto) 0 0-10 % Neutrophils # (Auto) 10.4 H 1.8-7.8 10^3/uL Lymphocytes # (Auto) 2.0 1.0-4.0 10^3/uL Monocytes # (Auto) 0.7 0.0-1.0 10^3/uL Eosinophils # (Auto) 0.3 0.0-0.3 10^3/uL Basophils # (Auto) 0.1 0.0-0.1 10^3/uL Immature Granulocyte # (Auto) 0.1 0.0-0.1 10^3/uL Percent Immature Platelet Fraction 13.1 H 0.0-7.6 % Prothrombin Time 12.4 12.2-14.7 SEC INR Comment 0.9 0.8-1.4 Activated Partial Thromboplast Time 31 24-35 SEC Potassium Level 4.3 3.6-5.0 MMOL/L Chloride Level 83 L 98-107 MMOL/L Carbon Dioxide Level 26 21-32 MMOL/L Anion Gap 10 5-14 MMOL/L Blood Urea Nitrogen 13 7-18 MG/DL Creatinine 0.88 0.60-1.30 MG/DL Estimat Glomerular Filtration Rate 71 BUN/Creatinine Ratio 15 Glucose Level 193 H 70-105 MG/DL Lactic Acid Level 1.09 0.50-2.00 MMOL/L Calcium Level 8.9 8.5-10.1 MG/DL Corrected Calcium 9.0 8.5-10.1 MG/DL Magnesium Level 1.9 1.6-2.4 MG/DL Total Bilirubin 0.3 0.1-1.0 MG/DL Aspartate Amino Transf (AST/SGOT) 15 5-34 U/L Alanine Aminotransferase (ALT/SGPT) 13 0-55 U/L Alkaline Phosphatase 122 40-136 U/L Total Creatine Kinase 116 29-168 U/L C-Reactive Protein High Sensitivity 2.24 H 0.00-0.50 MG/DL Total Protein 7.1 6.4-8.2 GM/DL Albumin 3.9 3.2-4.5 GM/DL Lipase 16 8-78 U/L Glucometer 210 H 70-110 MG/DL Urine Color YELLOW Urine Clarity CLEAR Urine pH 6.0 5-9 Urine Specific [place] 1.010 L 1.016-1.022 Urine Protein 2+ H NEGATIVE Urine Glucose (UA) 1+ H NEGATIVE Urine Ketones NEGATIVE NEGATIVE Urine Nitrite NEGATIVE NEGATIVE Urine Bilirubin NEGATIVE NEGATIVE Urine Urobilinogen 1.0 < = 1.0 MG/DL Urine Leukocyte Esterase NEGATIVE NEGATIVE Urine RBC (Auto) NEGATIVE NEGATIVE Urine RBC NONE /HPF Urine WBC NONE /HPF Urine Crystals PRESENT H /LPF Urine Amorphous Sediment FEW AMY URATES H /LPF Urine Bacteria NEGATIVE /HPF Urine Casts NONE /LPF Urine Mucus NEGATIVE /LPF Urine Culture Indicated NO My Orders Orders - MALIK,YONATHAN K DO Accucheck Stat ONCE (04/07/23 21:20) Ed Iv/Invasive Line Start (04/07/23 21:20) Catheter(Urinary) Insert & Ass 03,15 (04/07/23 21:20) Monitor-Rhythm Ecg Trace Only (04/07/23 21:20) Chest 1 View, Ap/Pa Only (04/07/23 21:20) Bnp Williams (04/07/23 21:20) Cbc With Automated Diff (04/07/23 21:20) Comprehensive Metabolic Panel (04/07/23 21:20) Creatine Kinase (04/07/23 21:20) Creatine Kinase Mb (04/07/23 21:20) Hs C Reactive Protein (04/07/23 21:20) Lactic Acid Analyzer (04/07/23 21:20) Lipase (04/07/23 21:20) Magnesium (04/07/23 21:20) Protime With Inr (04/07/23 21:20) Partial Thromboplastin Time (04/07/23 21:20) Ua Culture If Indicated (04/07/23 21:20) Erythrocyte Sedimentation Rate (04/07/23 21:20) Myoglobin Serum (04/07/23 21:20) Blood Culture (04/07/23 21:20) Sputum Culture (04/07/23 21:20) Urine Culture (04/07/23 21:20) Ed Iv/Invasive Line Start (04/07/23 21:20) Ed Iv/Invasive Line Start (04/07/23 21:20) Vital Signs Adult Sepsis Patie Q15M (04/07/23 21:20) O2 (04/07/23 21:20) Remove Rings In Anticipation O (04/07/23 21:20) Ns Iv 1000 Ml (Sodium Chloride 0.9%) (04/07/23 21:30) Piperacillin Sodium/Tazobactam (Zosyn Vi (04/07/23 21:30) Vancomycin Injection (Vancomycin Injecti (04/07/23 21:30) Lidocaine 2% (Urojet) (Xylocaine Urojet) (04/07/23 21:30) Medications Given in ED Current Medications Medications Dose Ordered Sig/Minal Route Start Time Stop Time Status Last Admin Dose Admin Piperacillin Sod/ Tazobactam Sod 4.5 gm/Sodium Chloride 100 ml @ 200 mls/hr ONCE ONCE IV 04/07/23 21:30 04/07/23 21:59 DC 04/07/23 21:56 200 MLS/HR Vital Signs/I&O 04/07/23 21:02 Temp 36.8 Pulse 72 Resp 20 B/P (MAP) 177/83 (114) Pulse Ox 95 Capillary Refill : Blood Pressure Mean: 114 Progress Note : Progress Note PT IS AFEBRILE, WITH NO HYPOTENSION OR TACHYCARDIA NORMAL LACTIC ACID , WBC 13.8 NA 119 Departure Impression Primary Impression: EXACERBATION OF CHRONIC BILATERAL LOWER LEG AND FEET CELLULITIS Additional Impressions: SEVERE HYPONATREMIA IDDM (insulin dependent diabetes mellitus) Psoriasis Departure-Patient Inst. Referrals: KAYLA GUTIERREZ MD (PCP/Family) Primary Care Physician YONATHAN GAN DO Apr 07, 2023 21:30
[2023-04-07 21:43] LABS: HEMOGLOBIN 15.6 g/dL (11.5-16.0); MEAN CORPUSCULAR VOLUME 80 fL (80-99); MEAN PLATELET VOLUME 13.2 fL (9.0-12.2); MONOCYTES # (AUTO) 0.7 10^3/uL (0.0-1.0)
[2023-04-07 21:45] LABS: BASOPHILS # (AUTO) 0.1 10^3/uL (0.0-0.1); BASOPHILS % (AUTO) 0 % (0-10); EOSINOPHILS # (AUTO) 0.3 10^3/uL (0.0-0.3); EOSINOPHILS % (AUTO) 2 % (0-10); HEMATOCRIT 44 % (35-52); LYMPHOCYTES % (AUTO) 15 % (12-44); MEAN CORPUSCULAR HEMOGLOBIN 28 pg (25-34); MEAN CORPUSCULAR HGB CONC 35 g/dL (32-36); MONOCYTES % (AUTO) 5 % (0-12); NEUTROPHILS # (AUTO) 10.4 10^3/uL (1.8-7.8); NEUTROPHILS % (AUTO) 77 % (42-75); PLATELET COUNT 70 10^3/uL (130-400); WHITE BLOOD COUNT 13.6 10^3/uL (4.3-11.0)
[2023-04-07 21:47] LABS: BILIRUBIN,URINE NEGATIVE (NEGATIVE); CLARITY,URINE CLEAR; COLOR,URINE YELLOW; GLUCOSE, URINE (UA) 1+ (NEGATIVE); KETONES,URINE NEGATIVE (NEGATIVE); LEUKOCYTE ESTERASE ,URINE NEGATIVE (NEGATIVE); NITRITE,URINE NEGATIVE (NEGATIVE); PROTEIN,URINE 2+ (NEGATIVE)
[2023-04-07 21:50] LABS: INR 0.9 (0.8-1.4); PROTHROMBIN TIME PATIENT 12.4 SEC (12.2-14.7)
[2023-04-07] MEDS: VANCOMYCIN INJECTION 1,000 MG in NS (IVPB) 250 ML IV SCH ×2 (21:56→21:57)
[2023-04-07 22:01] LABS: AMORPHOUS SEDIMENT,UR FEW AMOR URATES /LPF; BACTERIA,URINE NEGATIVE /HPF
[2023-04-07 22:02] LABS: ALBUMIN 3.9 GM/DL (3.2-4.5); BILIRUBIN,TOTAL 0.3 MG/DL (0.1-1.0); CALCIUM 8.9 MG/DL (8.5-10.1); CREATININE SERUM 0.88 MG/DL (0.60-1.30); MAGNESIUM 1.9 MG/DL (1.6-2.4); POTASSIUM 4.3 MMOL/L (3.6-5.0); TOTAL PROTEIN 7.1 GM/DL (6.4-8.2)
[2023-04-07 22:06] LABS: ERYTHROCYTE SEDIMENTATION RATE 8 MM/HR (0-30)
[2023-04-07 22:08] LABS: CREATINE KINASE MB 4.6 NG/ML (<6.6)
[2023-04-07] MEDS ORDERED: KETOROLAC 30 MG/ML VIAL IVP ONE (22:30)
[2023-04-07] MEDS ORDERED: METOCLOPRAMIDE INJ 10 MG/2 ML (REGLAN) IVP ONE (22:30)
[2023-04-07 23:00] VITALS: BP 170/81
[2023-04-07] MEDS ORDERED: diphenhydrAMINE 50 MG/ML INJ (BENADRYL) IVP ONE (23:00)
[2023-04-07 23:15] VITALS: BP 175/94
[2023-04-07 23:30] VITALS: BP 181/77
[2023-04-07] MEDS ORDERED: ONDANSETRON 4 MG/2 ML (SDV) Z0FRAN IV PRN (23:30)
[2023-04-07 23:45] VITALS: BP 174/79
[2023-04-07] MEDS ORDERED: IBUPROFEN 800 MG (MOTRIN) TAB PO PRN (23:45)
[2023-04-07] MEDS ORDERED: fentaNYL INJ 100 MCG/2 ML AMP IV PRN (23:45)
[2023-04-07] MEDS ORDERED: ACETAMINOPHEN 500 MG TAB (TYLENOL) PO PRN (23:45)
[2023-04-07] MEDS ORDERED: diphenhydrAMINE 50 MG/ML INJ (BENADRYL) IV PRN (23:45)
[2023-04-07] MEDS ORDERED: METOCLOPRAMIDE INJ 10 MG/2 ML (REGLAN) IVP PRN (23:45)
[2023-04-08] VITALS: BP 167/76
[2023-04-08 04:00] VITALS: BP 161/65
[2023-04-08] MEDS: NS IV 1000 ML 1,000 ML IV SCH ×2 (04:54→07:19)
[2023-04-08 04:57] LABS: ALBUMIN 3.2 GM/DL (3.2-4.5); BILIRUBIN,TOTAL 0.4 MG/DL (0.1-1.0); CALCIUM 8.2 MG/DL (8.5-10.1); CREATININE SERUM 0.75 MG/DL (0.60-1.30); POTASSIUM 3.9 MMOL/L (3.6-5.0); TOTAL PROTEIN 5.9 GM/DL (6.4-8.2)
[2023-04-08] MEDS: PIPERACILLIN SODIUM/TAZOBACTAM 4.5 GM in NS (IVPB) 100 ML IV SCH ×3 (05:03→20:11)
[2023-04-08 05:08] LABS: BASOPHILS % (AUTO) 0 % (0-10); EOSINOPHILS # (AUTO) 0.2 10^3/uL (0.0-0.3); EOSINOPHILS % (AUTO) 2 % (0-10); HEMATOCRIT 40 % (35-52); HEMOGLOBIN 14.4 g/dL (11.5-16.0); LYMPHOCYTES # (AUTO) 1.7 10^3/uL (1.0-4.0); LYMPHOCYTES % (AUTO) 15 % (12-44); MEAN CORPUSCULAR HEMOGLOBIN 29 pg (25-34); MEAN CORPUSCULAR HGB CONC 36 g/dL (32-36); MEAN CORPUSCULAR VOLUME 80 fL (80-99); MEAN PLATELET VOLUME 13.4 fL (9.0-12.2); MONOCYTES # (AUTO) 0.7 10^3/uL (0.0-1.0); MONOCYTES % (AUTO) 6 % (0-12); NEUTROPHILS # (AUTO) 8.3 10^3/uL (1.8-7.8); NEUTROPHILS % (AUTO) 76 % (42-75); PLATELET COUNT 70 10^3/uL (130-400); WHITE BLOOD COUNT 10.9 10^3/uL (4.3-11.0)
--- NOTE | 2023-04-08 05:30 | History & Physical-Hospitalist ---
History of Present Illness HPI/Chief Complaint CC: Bilateral cellulitis with hyponatremia HPI: This is a 68yoWF of [facility] who presents to the ER with bilateral worsened cellulitis and weakness from hyponatremia. She had a lengthy hospital stay recently due to the cellulitis and she had been doing pretty well we will fluid restrict her and monitor lab work. IV antibiotics are initiated. Source: patient Exam Limitations: no limitations Date Seen 04/08/23 Time Seen by a Provider: 11:00 Attending Physician Zeenat Hubbard MD PCP Admitting Physician: Courtney Mendes MD Attending Physician: Courtney Mendes MD Referring Physician Date of Admission Apr 07, 2023 at 22:53 Home Medications & Allergies Home Medications Reviewed patient Home Medication Reconciliation performed by pharmacy medication reconciliations termite control technician and/or nursing. Patients Allergies have been reviewed. Allergies Allergies Coded Allergies exenatide (Unverified Allergy, Unknown, 03/24/22) methylphenidate (Unverified Allergy, Unknown, 03/24/22) morphine (Verified Adverse Reaction, Mild, NAUSEA, 05/19/16) sulfamethoxazole (Unverified Adverse Reaction, Unknown, 10/13/22) HALLUCINATIONS trimethoprim (Unverified Adverse Reaction, Unknown, 10/13/22) HALLUCINATIONS Past Xygqnni-Rqiiij-Klreyi Hx Patient Social History Marrital Status: single Employed/Student: retired Tobacco Use?: No Smoking Status: Former Smoker Use of E-Cig and/or Vaping dev: No Substance use?: No Alcohol Use?: No Pt feels they are or have been: No Immunizations Up To Date Date of Influenza Vaccine: Jul 31, 2021 First/Initial COVID19 Vaccinat: UNKNOWN Second COVID19 Vaccination Dae: UNKNOWN Tetanus Booster (TDap): Less Than 5 Years Hepatitis A: No Hepatitis B: No PED Vaccines UTD: No Date of Pneumonia Vaccine: Jul 31, 2019 Seasonal Allergies Seasonal Allergies: Yes Current Status status: No status: No Advance Directives: No Communicates: Verbally Primary Language: [place] Preferred Spoken Language: [place] Is interpretation needed?: No Implanted or Applied Medical D: None Past Medical History Surgeries: Abdominal, Section, Hysterectomy, Orthopedic COPD Currently Using CPAP: No Currently Using BIPAP: No 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, 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 Sexually Transmitted Disease: No HIV/AIDS: No Gastroesophageal Reflux, Hiatal Hernia Arthritis Diabetes, Insulin dep Cataract Loss of Vision: Bilateral Hearing Impairment: Hard of Hearing Melanoma Anxiety, Depression Psoriasis Blood Disorders: No Adverse Reaction/Blood Tranf: No IDDM HTN COPD Tobacco USE Arthritis GERD Dementia Psoriasis Anxiety Depression Alcohol Abuse Medical Noncompliance [place] Family Medical History AIDS Alcoholism Arthritis Asthma Cataracts Coronary thrombosis Diabetes mellitus Drug abuse Glaucoma Psychosocial problem Respiratory disorder No Family History of: Sadiq's disease Alzheimer's disease Aphasia Cancer of mouth Cardiovascular disease Colon cancer Completed stroke Congenital disease Congenital heart disease Cystic fibrosis Deafness or hearing loss Dementia Dysphasia Fibrocystic disease of breast Gastroenteritis Headache disorder Hypercholesterolemia Hypertension Infertility Kidney disease Myocardial infarction Neoplasm Not obtainable due to adoption Osteoporosis Parkinson's disease Prostate cancer Seizure disorder Severe allergy Thyroid disease Tuberculosis Visual disorder Cancer, Diabetes, Hypertension Review of Systems Constitutional: see HPI, dizziness, weakness EENTM: no symptoms reported Respiratory: no symptoms reported Cardiovascular: no symptoms reported Gastrointestinal: no symptoms reported Genitourinary: no symptoms reported Musculoskeletal: no symptoms reported Skin: no symptoms reported Psychiatric/Neurological: Depressed All Other Systems Reviewed Negative Unless Noted: Yes Physical Exam Physical Exam Vital Signs Vital Signs - First Documented 04/07/23 04/07/23 04/08/23 21:02 22:45 12:12 Temp 36.8 Pulse 72 Resp 20 B/P (MAP) 177/83 (114) Pulse Ox 95 O2 Delivery Room Air FiO2 21 Capillary Refill : Less Than 3 Seconds Height, Weight, BMI Height: 5'65.00" Weight: 252lbs. 14.0oz. 114.777586oo; 44.15 BMI Method:Stated General Appearance: No Apparent Distress, Chronically ill, Obese Eyes: Right Eye Normal Inspection, Right Eye PERRL HEENT: PERRL/EOMI, Normal ENT Inspection, Pharynx Normal, Moist Mucous Membranes Neck: Full Range of Motion, Normal Inspection, Non Tender Respiratory: Chest Non Tender, Lungs Clear, Normal Breath Sounds, No Accessory Muscle Use, No Respiratory Distress Cardiovascular: Regular Rate, Rhythm, No Edema, No Gallop, No JVD, No Murmur, Normal Peripheral Pulses Gastrointestinal: Normal Bowel Sounds, No Organomegaly, No Pulsatile Mass, Non Tender, Soft Back: Normal Inspection, No CVA Tenderness, No Vertebral Tenderness Extremity: Normal Capillary Refill, Normal Inspection, Normal Range of Motion, Non Tender, No Calf Tenderness, No Pedal Edema Neurologic/Psychiatric: Alert, Oriented x3, No Motor/Sensory Deficits, Normal Mood/Affect Skin: Normal Color, Warm/Dry, Rash (Bilateral redness of legs) Lymphatic: No Adenopathy Results Results/Procedures Labs Laboratory Tests 04/07/23 21:23 04/08/23 04:05 Patient resulted labs reviewed. Assessment/Plan Admission Diagnosis Assessment: Severe hyponatremia Bilateral cellulitis acute on chronic Diabetes Hypertension Hyperlipidemia COPD Obesity Plan: Fluid restrict Moved to fourth floor IV antibiotics PT and OT DVT prophylaxis Admission Status: Inpatient Order (span 2 midnights) Reason for Inpatient Admission: severe hyponatremia and cellulitis HERMILA SWAIN DO Apr 08, 2023 05:30
[2023-04-08] MEDS ORDERED: PROMETHAZINE INJ 25 MG/ML (PHENERGAN) AMP IVP PRN (06:15)
[2023-04-08] MEDS: inSUlin ASPART (NovoLOG) 1 UNIT/0.01 ML (CHARGE PER UNIT) SC SCH ×5 (07:05→21:30)
[2023-04-08] MEDS: amLODIPine 10 MG (NORVASC) TAB PO SCH (07:43)
--- NOTE | 2023-04-08 07:57 | Diagnostic Imaging Report ---
INDICATION: SEPSIS. TECHNIQUE: Single view chest 10:04 PM. CORRELATION STUDY: 03/09/2023 FINDINGS: Heart size and mediastinum are enlarged and prominent. Vasculature is slightly increased. Unchanged elevated right diaphragm. No definitive consolidating infiltrate. IMPRESSION: 1. Cardiac enlargement with prominent mediastinum and mild vascular edema. Dictated by: Dictated on workstation # [id number]
--- NOTE | 2023-04-08 08:51 | Diagnostic Imaging Report ---
INDICATION: Cellulitis, respiratory distress. Frontal chest obtained at 4:17 a.m. and compared to yesterday. There is cardiomegaly and central vascular congestion with unchanged perihilar edema. There is mild bibasilar atelectatic change versus infiltrate with no pneumothorax or significant pleural fluid. There is relatively poor inspiration. IMPRESSION: Cardiomegaly and central vascular congestion with perihilar edema and mild bibasilar atelectatic change versus infiltrate. Poor inspiration. Dictated by: Dictated on workstation # [id number]
[2023-04-08] MEDS ORDERED: ONDANSETRON 4 MG/2 ML (SDV) Z0FRAN IV PRN (11:45)
[2023-04-08] MEDS ORDERED: polyethylene glycoL POWDER 17 GM (MIRALAX) PACK PO PRN (11:45)
[2023-04-08] MEDS ORDERED: MILK OF MAGNESIA 400 MG/5 ML 30 ML UDC PO PRN (11:45)
[2023-04-08] MEDS ORDERED: ONDANSETRON 4 MG (ZOFRAN) ORAL DISSOLVE TAB PO PRN (11:45)
[2023-04-08] MEDS ORDERED: diphenhydrAMINE 50 MG/ML INJ (BENADRYL) IVP PRN (11:45)
[2023-04-08] MEDS ORDERED: ANTACID SUSP 30 ML UDC (MYLANTA) PO PRN (11:45)
[2023-04-08] MEDS ORDERED: CALCIUM CARBONATE 500 MG (TUMS) TAB.CHEW PO PRN (11:45)
[2023-04-08] MEDS ORDERED: MELATONIN 3 MG TABLET PO PRN (11:45)
[2023-04-08] MEDS ORDERED: ACETAMINOPHEN 325 MG TABLET PO PRN (11:45)
[2023-04-08] MEDS ORDERED: BISACODYL 10 MG SUPP (DULCOLAX) PR PRN (11:45)
[2023-04-08] MEDS ORDERED: LACTULOSE SYRUP 10GM/15ML (ENULOSE) 30ML UDC PO PRN (11:45)
[2023-04-08] MEDS ORDERED: VANCOMYCIN 1000 MG/VIAL ONE (11:59)
[2023-04-08] MEDS: ENOXAPARIN 40 MG/0.4 ML (LOVENOX) SYR SC SCH ×2 (12:05→21:30)
[2023-04-08] MEDS: VANCOMYCIN 1 GM/NS 250 ML IVPB IV SCH ×2 (12:06)
[2023-04-08 12:12] VITALS: BP 177/83
[2023-04-08] MEDS ORDERED: RT-ALBUTEROL/IPRATROPIUM 3 ML (DUONEB) VIAL INH PRN (12:30)
[2023-04-08 12:59] VITALS: BP 165/81
[2023-04-08] MEDS ORDERED: MULT-1136 PO (13:53)
[2023-04-08] MEDS ORDERED: FURO40TA4 PO (13:53)
[2023-04-08] MEDS ORDERED: HYDR-3923 PO (13:53)
[2023-04-08] MEDS ORDERED: MELA5TAB14 PO (13:53)
[2023-04-08] MEDS ORDERED: TOPI-241 PO (13:53)
[2023-04-08] MEDS ORDERED: BACI1TAB25 PO (13:53)
[2023-04-08] MEDS ORDERED: OXCA300T18 PO (13:53)
[2023-04-08] MEDS ORDERED: VIT1CAPS44 PO (13:53)
[2023-04-08] MEDS ORDERED: ROSU20TA32 PO (13:53)
[2023-04-08] MEDS ORDERED: AMLO-250 PO (13:53)
[2023-04-08] MEDS ORDERED: METF-399 PO (13:53)
[2023-04-08] MEDS ORDERED: OMEP40CA6 PO (13:53)
[2023-04-08] MEDS ORDERED: IBUP-2473 PO (13:53)
[2023-04-08] MEDS ORDERED: GABA800T10 PO ×2 (13:53)
--- NOTE | 2023-04-08 14:26 | Physical Therapy Evaluation ---
PT Evaluation-General Medical Diagnosis Admission Date Apr 07, 2023 at 22:53 Medical Diagnosis: bilateral LE cellulitis/hyponatremia/DM Onset Date: Apr 07, 2023 Therapy Diagnosis Therapy Diagnosis: debility/weakness Height/Weight Height (Feet): 5 Height (Inches): 65.00 Weight (Pounds): 252 Weight (Ounces): 14.0 Precautions Precautions/Isolations: Fall Prevention, Standard Precautions Referral Physician: Pablo Reason for Referral: Evaluation/Treatment Medical History Pertinent Medical History: Alcoholism, Arthritis, COPD, DM, GERD, HTN, Neuropathy, Smoking Current History ER secondary to right LE pain/redness Reviewed History: Yes Social History Home: Apartment Prior Prior Level of Function SCALE: Activities may be completed with or without assistive devices. 6-Moxgrsnugr-ztrehfq completes the activity by him/herself with no assistance from a helper. 5-Set-up or Clean-up Assistance-helper sets up or cleans up; patient completes activity. [place] assists only prior to or following the activity. 4-Supervision or Touching Assistance-helper provides verbal cues and/or touching/steadying and/or contact guard assistance as patient completes activity. Assistance may be provided throughout the activity or intermittently. 3-Partial/Moderate Assistance-helper does LESS THAN HALF the effort. [place] lift s, holds or supports trunk or limbs, but provides less than half the effort. 2-Substantial/Maximal Assistance-helper does MORE THAN HALF the effort. [place] lifts or holds trunk or limbs and provides more than half the effort. 1-Vmmknzflr-majcfu does ALL the effort. Patient does none of the effort to complete the activity. Or, the assistance of 2 or more helpers is required for the patient to complete the activity. If activity was not attempted, code reason: 7-Patient Refused. 9-Not Applicable-not attempted and the patient did not perform the activity before the current illness, exacerbation or injury. 10-Not Attempted due to Environmental Limitations-(lack of equipment, weather restraints, etc.). 88-Not Attempted due to Medical Conditions or Safety Concerns. Bed Mobility: 6 Transfers (B,C,W/C): 6 Gait: 6 Indoor Mobility (Ambulation): Independent Prior Devices Use: Walker PT Evaluation-Current Subjective Patient agrees to PT. Objective Patient Orientation: Normal For Age Attachments: Hopper Catheter, IV ROM/Strength ROM Lower Extremities bilateral Le WFL Strength Lower Extremities 4/5 grossly bilateral LE all planes Integumentary/Posture Integumentary refer to nursing notes Bowel Incontinence: No Bladder Incontinence: Hopper Cath Posture WFL Neuromuscular (Tone, Coordination, Reflexes) grossly intact Sensory Vision: Functional Hearing: Functional Transfers Lying to Sitting/Side of Bed(Q: 6 Sit to Stand (QC): 4 Chair/Ujh-vo-Pqech Xfer(QC): 4 Gait Mode of Locomotion: Walk Anticipated Mode of Locomotion: Walk Walk 10 feet (QC): 4 Walk 50 ft with 2 Turns(QC): 4 Walk 150 ft (QC): 4 Distance: 200' Gait Assistive Device: FWW Comments/Gait Description safe and functional with no deviation Balance Sitting Static: Normal Sitting Dynamic: Normal Standing Static: Normal Standing Dynamic: Normal Assessment/Needs Patient will be seen short term by skilled PT to address functional mobility to ensure safe return to home at maximum LOF. 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 Goals [facility] Goals PT [facility] Goals Time Frame: Apr 16, 2023 Roll Left & Right (QC): 6 Sit to Lying (QC): 6 Lying-Sitting on Side/Bed(QC): 6 Sit to Stand (QC): 6 Chair/Xez-vp-Qfmso Xfer(QC): 6 Toilet Transfer (QC): 6 Walk 10 feet (QC): 6 Walk 50ft with 2 Turns (QC): 6 Walk 150 ft (QC): 6 PT Plan Treatment/Plan Treatment Plan: Continue Plan of Care Treatment Plan: Education, Functional Activity Garrick, Functional Strength, Gait, Safety, Therapeutic Exercise, Transfers Treatment Duration: Apr 16, 2023 Frequency: 6 times per week Estimated Hrs Per Day: .25 hour per day Time Time In: 1325 Time Out: 1336 DATE: Apr 08, 2023 Total Billed Treatment Time: 11 Total Billed Treatment [facility] 11 min CAILIN COLEY PT Apr 08, 2023 14:26
--- NOTE | 2023-04-08 14:28 | Occupational Therapy Eval ---
OT Evaluation-General/PLF Medical Diagnosis Admission Date Apr 07, 2023 at 22:53 Medical Diagnosis: BLE cellultis Onset Date: Apr 07, 2023 Therapy Diagnosis Therapy Diagnosis: weakness Height/Weight Height (Feet): 5 Height (Inches): 65.00 Weight (Pounds): 252 Weight (Ounces): 14.0 Precautions Precautions/Isolations: Fall Prevention, Standard Precautions Weight Bear Status Weight Bearing Restriction: Full Weight Bearing Referral Referral Reason: Evaluation/Treatment Medical History Pertinent Medical History: Alcoholism, Arthritis, COPD, DM, GERD, HTN, Neuropathy, Smoking Social History Home: Apartment Current Living Status: Significant Other Entry Into Home: Level Entry ADL-Prior Level of Function SCALE: Activities may be completed with or without assistive devices. 5-Vnrlshrvzu-eqpcwua completes the activity by him/herself with no assistance from a helper. 5-Set-up or Clean-up Assistance-helper sets up or cleans up; patient completes activity. Bruno assists only prior to or following the activity. 4-Supervision or Touching Assistance-helper provides verbal cues and/or touching/steadying and/or contact guard assistance as patient completes activity. Assistance may be provided throughout the activity or intermittently. 3-Partial/Moderate Assistance-helper does LESS THAN HALF the effort. Bruno lifts, holds or supports trunk or limbs, but provides less than half the effort. 2-Substantial/Maximal Assistance-helper does MORE THAN HALF the effort. Bruno lifts or holds trunk or limbs and provides more than half the effort. 2-Xiaartwpq-kirgbf does ALL the effort. Patient does none of the effort to complete the activity. Or, the assistance of 2 or more helpers is required for the patient to complete the activity. If activity was not attempted, code reason: 7-Patient Refused. 9-Not Applicable-not attempted and the patient did not perform the activity before the current illness, exacerbation or injury. 10-Not Attempted due to Environmental Limitations-(lack of equipment, weather restraints, etc.). 88-Not Attempted due to Medical Conditions or Safety Concerns. Self Care: Needed Some Help Functional Cognition: Independent OT Current Status Subjective Agreeable to therapy however asks to wait...Performs therapy w/ positive attitude Mental Status/Objective Patient Orientation: Person, Place, Time, Situation Attachments: Hopper Catheter, IV Current Glasses/Contacts: Yes Hand Dominance: Right Upper Extremity ROM BUE ROM WFLS Upper Extremity Coordination INTACT Upper Extremity Sensation INTACT Upper Extremity Strength 4/5 grossly ADL-Treatment Eating (QC): 6 (fluid restriction) Oral Hygiene (QC): 5 Shower/Bathe Self (QC): 7 Upper Body Dressing (QC): 5 Lower Body Dressing (QC): 4 On/Off Footwear (QC): 1 Toileting Hygiene (QC): 4 Education OT Patient Education: Correct positioning, Exercise program, Modified ADL techniques, Progress toward Goal/Update tx plan, Purpose of tx/functional activities, Reviewed precautions, Rehab process, Safety issues, Transfer techniques, Use of adapted equipment Teaching Recipient: Patient Teaching Methods: Demonstration Response to Teaching: Verbalize Understanding OT [facility] Goals [employer] Scoreboard Operator Goals Eating (QC): 6 Oral Hygiene (QC): 6 Toileting Hygiene (QC): 5 Shower/Bathe Self (QC): 4 Upper Body Dressing (QC): 5 Lower Body Dressing (QC): 4 On/Off Footwear (QC): 4 1=Demonstrate adherence to instructed precautions during ADL tasks. 2=Patient will verbalize/demonstrate understanding of assistive devices/modifications for ADL. 3=Patient will improve strength/tolerance for activity to enable patient to perform ADL's. OT Education/Plan Problem List/Assessment Assessment: Decreased Activ Tolerance, Impaired Funct Balance, Impaired Self- Care Skills Discharge Recommendations Plan/Recommendations: Continue POC Treatment Plan/Plan of Care Treatment,Training & Education: Yes Patient would benefit from OT for education, treatment and training to promote independence in ADL's, mobility, safety and/or upper extremity function for ADL's. Plan of Care: ADL Retraining, Functional Mobility, Group Exercise/Act as Ind, UE Funct Exercise/Act Treatment Duration: Apr 16, 2023 Frequency: 3 times per week Estimated Hrs Per Day: .25 hour per day Agreement: Yes Rehab Potential: Guarded Time Start Time: 13:00 Stop Time: 13:20 DATE: Apr 08, 2023 Total Time Billed (hr/min): 20 Billed Treatment Time EVM 20 ELISABETH CASILLAS OT Apr 08, 2023 14:28
[2023-04-08] MEDS ORDERED: FUROSEMIDE 40 MG (LASIX) TAB PO PRN (15:15)
[2023-04-08] MEDS ORDERED: NON-FORMULARY MEDICATION 1 EA EA (Omeprazole 40 MG) PO PRN (15:15)
[2023-04-08] MEDS ORDERED: PANTOPRAZOLE 40 MG (PROTONIX) TAB PO PRN (15:15)
[2023-04-08] MEDS ORDERED: IBUPROFEN TABLET 200 MG TAB PO PRN (15:15)
[2023-04-08] MEDS: RT-ALBUTEROL/IPRATROPIUM 3 ML (DUONEB) VIAL INH SCH ×3 (15:20→22:30)
[2023-04-08 16:03] VITALS: BP 150/67
[2023-04-08] MEDS: diphenhydrAMINE 25 MG TAB (BENADRYL) PO PRN (17:00)
[2023-04-08] MEDS ORDERED: INSULIN ASPART 16 UNIT SC SCH (17:00)
[2023-04-08] MEDS: LACTOBACILLUS ACIDOPHILUS (PROBIOTIC) CAPSULE PO SCH (17:01)
[2023-04-08] MEDS: metFORMIN 500 MG (GLUCOPHAGE) TAB PO SCH (17:02)
[2023-04-08] MEDS ORDERED: BACILLUS COAGULANS PO SCH (18:00)
[2023-04-08] MEDS ORDERED: NON-FORMULARY MEDICATION 1 EA EA (Vit C/E/Zn/Coppr/Lutein/Zeaxan (Preservision Areds 2 Sof PO SCH (18:00)
[2023-04-08 19:53] VITALS: BP 160/70
[2023-04-08] MEDS: hydrALAZINE (APRESOLINE) 25 MG TAB PO SCH (20:11)
[2023-04-08] MEDS: GABAPENTIN 600 MG (NEURONTIN) TAB PO SCH (20:11)
[2023-04-08] MEDS: DOCUSATE SODIUM 100 MG (COLACE) CAP PO SCH (20:12)
[2023-04-08] MEDS: SENNOSIDES 8.6 MG (SENOKOT) TAB PO SCH (20:12)
[2023-04-08] MEDS: OXcarbazepine (TRILEPTAL) 300 MG TAB PO SCH (20:12)
[2023-04-08] MEDS: busPIRone 15 MG (BUSPAR) TABLET PO SCH (20:12)
[2023-04-08] MEDS ORDERED: GABAPENTIN 1200 MG PO SCH (21:00)
[2023-04-08] MEDS ORDERED: NON-FORMULARY MEDICATION 1 EA EA (Buspirone HCl 30 MG) PO SCH (21:00)
[2023-04-08] MEDS ORDERED: NON-FORMULARY MEDICATION 1 EA EA (Metformin HCl 1,000 MG) PO SCH (21:00)
[2023-04-08] MEDS ORDERED: INSULIN DEGLUDEC 40 UNIT SQ SCH (21:00)
[2023-04-08] MEDS ORDERED: NON-FORMULARY MEDICATION 1 EA EA (Melatonin 5 MG) PO SCH (21:00)
[2023-04-08] MEDS: MELATONIN 10 MG TABLET PO SCH (21:30)
[2023-04-09] MEDS: VANCOMYCIN 1 GM/NS 250 ML IVPB IV SCH ×4 (00:19→12:28)
[2023-04-09 00:20] VITALS: BP 162/74
[2023-04-09] MEDS: RT-ALBUTEROL/IPRATROPIUM 3 ML (DUONEB) VIAL INH SCH ×6 (02:21→22:32)
[2023-04-09] MEDS: PIPERACILLIN SODIUM/TAZOBACTAM 4.5 GM in NS (IVPB) 100 ML IV SCH ×3 (03:28→20:44)
[2023-04-09 03:29] VITALS: BP 152/69
[2023-04-09 06:19] LABS: EOSINOPHILS # (AUTO) 0.3 10^3/uL (0.0-0.3); EOSINOPHILS % (AUTO) 3 % (0-10); NEUTROPHILS % (AUTO) 72 % (42-75)
[2023-04-09 06:20] LABS: BASOPHILS # (AUTO) 0.1 10^3/uL (0.0-0.1); BASOPHILS % (AUTO) 1 % (0-10); HEMATOCRIT 43 % (35-52); HEMOGLOBIN 14.6 g/dL (11.5-16.0); LYMPHOCYTES # (AUTO) 1.4 10^3/uL (1.0-4.0); LYMPHOCYTES % (AUTO) 16 % (12-44); MEAN CORPUSCULAR HEMOGLOBIN 29 pg (25-34); MEAN CORPUSCULAR HGB CONC 34 g/dL (32-36); MEAN CORPUSCULAR VOLUME 83 fL (80-99); MEAN PLATELET VOLUME 12.6 fL (9.0-12.2); MONOCYTES # (AUTO) 0.6 10^3/uL (0.0-1.0); MONOCYTES % (AUTO) 7 % (0-12); NEUTROPHILS # (AUTO) 6.1 10^3/uL (1.8-7.8); PLATELET COUNT 78 10^3/uL (130-400); WHITE BLOOD COUNT 8.5 10^3/uL (4.3-11.0)
[2023-04-09] MEDS: inSUlin ASPART (NovoLOG) 1 UNIT/0.01 ML (CHARGE PER UNIT) SC SCH ×7 (06:30→20:44)
[2023-04-09] MEDS: GABAPENTIN 400 MG (NEURONTIN) CAP PO SCH ×2 (06:34→14:13)
[2023-04-09] MEDS: MULTIVIT W/MINERALS TAB (THERAGRAN M) PO SCH (06:34)
[2023-04-09 06:43] LABS: ALBUMIN 3.5 GM/DL (3.2-4.5); BILIRUBIN,TOTAL 0.3 MG/DL (0.1-1.0); CALCIUM 9.2 MG/DL (8.5-10.1); CREATININE SERUM 0.79 MG/DL (0.60-1.30); POTASSIUM 3.8 MMOL/L (3.6-5.0); TOTAL PROTEIN 6.3 GM/DL (6.4-8.2)
[2023-04-09] MEDS ORDERED: NON-FORMULARY MEDICATION 1 EA EA (Gabapentin 800 MG) PO SCH (07:00)
--- NOTE | 2023-04-09 07:14 | Progress Note - Hospitalist ---
Subjective HPI/CC On Admission Date Seen by Provider: Apr 09, 2023 Time Seen by Provider: 11:00 CC: Bilateral cellulitis with hyponatremia HPI: This is a 68yoWF of [facility] who presents to the ER with bilateral worsened cellulitis and weakness from hyponatremia. She had a lengthy hospital stay recently due to the cellulitis and she had been doing pretty well we will fluid restrict her and monitor lab work. IV antibiotics are initiated. Subjective/Events-last exam Patient doing a lot better No pain is reported Legs are much improved Moving around really well with walker Discharge home tomorrow Review of Systems General: Fatigue, Malaise Focused Exam Lactate Level 04/07/23 21:23: Lactic Acid Level 1.09 Time of Focused Exam: 22:05 Objective Exam Vital Signs Vital Signs Date Time Temp Pulse Resp B/P (MAP) Pulse Ox O2 Delivery O2 Flow Rate FiO2 04/09/23 16:33 37.4 78 20 172/69 (103) 93 Room Air 04/08/23 12:12 21 Capillary Refill : Less Than 3 Seconds General Appearance: No Apparent Distress, WD/WN, Chronically ill, Obese Respiratory: Lungs Clear, Normal Breath Sounds Cardiovascular: Regular Rate, Rhythm Neurologic/Psychiatric: Alert, Oriented x3 Results/Procedures Lab Laboratory Tests 04/09/23 05:35 Patient resulted labs reviewed. Assessment/Plan Assessment and Plan Assess & Plan/Chief Complaint Assessment: Severe hyponatremia Bilateral cellulitis acute on chronic Diabetes Hypertension Hyperlipidemia COPD Obesity Plan: Fluid restrict Moved to fourth floor IV antibiotics PT and OT DVT prophylaxis HERMILA SWAIN DO Apr 09, 2023 07:14
[2023-04-09 08:11] VITALS: BP 152/70
[2023-04-09] MEDS ORDERED: amLODIPine 5 MG (NORVASC) TAB PO SCH (09:00)
[2023-04-09] MEDS ORDERED: NON-FORMULARY MEDICATION 1 EA EA (Topiramate 50 MG) PO SCH (09:00)
[2023-04-09] MEDS ORDERED: NON-FORMULARY MEDICATION 1 EA EA (Multivitamin 1 EACH) PO SCH (09:00)
[2023-04-09] MEDS: LACTOBACILLUS ACIDOPHILUS (PROBIOTIC) CAPSULE PO SCH ×2 (09:12→17:49)
[2023-04-09] MEDS: amLODIPine 10 MG (NORVASC) TAB PO SCH (09:13)
[2023-04-09] MEDS: hydrALAZINE (APRESOLINE) 25 MG TAB PO SCH ×3 (09:13→20:45)
[2023-04-09] MEDS: ROSUVASTATIN 20 MG (CRESTOR) TABLET PO SCH (09:13)
[2023-04-09] MEDS: DOCUSATE SODIUM 100 MG (COLACE) CAP PO SCH ×2 (09:13→20:45)
[2023-04-09] MEDS: busPIRone 15 MG (BUSPAR) TABLET PO SCH ×2 (09:13→20:45)
[2023-04-09] MEDS: ENOXAPARIN 40 MG/0.4 ML (LOVENOX) SYR SC SCH ×2 (09:13→23:10)
[2023-04-09] MEDS: toPIRamate 25 MG (TOPAMAX) TAB PO SCH (09:13)
[2023-04-09] MEDS: SENNOSIDES 8.6 MG (SENOKOT) TAB PO SCH ×2 (09:13→20:45)
[2023-04-09] MEDS: OXcarbazepine (TRILEPTAL) 300 MG TAB PO SCH ×2 (09:13→20:45)
[2023-04-09] MEDS: metFORMIN 500 MG (GLUCOPHAGE) TAB PO SCH ×2 (09:13→17:49)
--- NOTE | 2023-04-09 10:14 | Physical Therapy Daily Note ---
PT Daily Note-Current Subjective Pt. in bed, states she is too tired to work with PT but asks what time it is and says "gosh I do need to get up and moving." Pt. has no c/o pain. Pain Section J - Health Conditions 1. Rarely or not at all 2. Occasionally 3. Frequently 4. Almost constantly 8. Unable to answer Pain Effect on Sleep: 1 Pain Interference with Therapy: 1 Pain Interference w/Day-to-Day: 1 Transfers SCALE: Activities may be completed with or without assistive devices. 9-Nnsuiqbrsf-gvurzsu completes the activity by him/herself with no assistance from a helper. 5-Set-up or Clean-up Assistance-helper sets up or cleans up; patient completes activity. Jackson assists only prior to or following the activity. 4-Supervision or Touching Assistance-helper provides verbal cues and/or touching/steadying and/or contact guard assistance as patient completes activity. Assistance may be provided throughout the activity or intermittently. 3-Partial/Moderate Assistance-helper does LESS THAN HALF the effort. Jackson lifts, holds or supports trunk or limbs, but provides less than half the effort. 2-Substantial/Maximal Assistance-helper does MORE THAN HALF the effort. Jackson lifts or holds trunk or limbs and provides more than half the effort. 3-Sjzoyfedr-vdkbge does ALL the effort. Patient does none of the effort to complete the activity. Or, the assistance of 2 or more helpers is required for the patient to complete the activity. If activity was not attempted, code reason: 7-Patient Refused. 9-Not Applicable-not attempted and the patient did not perform the activity before the current illness, exacerbation or injury. 10-Not Attempted due to Environmental Limitations-(lack of equipment, weather restraints, etc.). 88-Not Attempted due to Medical Conditions or Safety Concerns. Lying to Sitting/Side of Bed(Q: 4 Sit to Stand (QC): 4 Gait Training Does the Patient Walk?: Yes Distance: 150 ft Walk 150 ft (QC): 4 Gait Persons Needed: 1 Gait Assistive Device: FWW Treatments gait training Assessment Current Status: Good Progress Pt. did well with ambulation, overall steady using FWW and is CGA/SBA with all mobility at this time. Pt. is progressing well; up in chair post session with call light and breakfast set up. PT Shelter Goals [employer] Developer Goals PT Shelter Goals Time Frame: Apr 16, 2023 Roll Left & Right (QC): 6 Sit to Lying (QC): 6 Lying-Sitting on Side/Bed(QC): 6 Sit to Stand (QC): 6 Chair/Gzm-uh-Umhpj Xfer(QC): 6 Toilet Transfer (QC): 6 Walk 10 feet (QC): 6 Walk 50ft with 2 Turns (QC): 6 Walk 150 ft (QC): 6 PT Plan Treatment/Plan Treatment Plan: Continue Plan of Care Treatment Plan: Education, Functional Activity Garrick, Functional Strength, Gait, Safety, Therapeutic Exercise, Transfers Treatment Duration: Apr 16, 2023 Frequency: 6 times per week Estimated Hrs Per Day: .25 hour per day Time Time In: 841 Time Out: 0855 DATE: Apr 09, 2023 Total Billed Treatment Time: 14 Total Billed Treatment 1. GT 14' DARIANA ZAPIEN PT Apr 09, 2023 10:14
[2023-04-09] MEDS ORDERED: TROUGH ORDER-PHARMACY XX ONE (11:00)
[2023-04-09 11:58] VITALS: BP 156/70
[2023-04-09] MEDS: diphenhydrAMINE 25 MG TAB (BENADRYL) PO PRN (16:04)
[2023-04-09 16:33] VITALS: BP 172/69
[2023-04-09 19:35] VITALS: BP 182/81
[2023-04-09] MEDS: GABAPENTIN 600 MG (NEURONTIN) TAB PO SCH (20:45)
[2023-04-09] MEDS: MELATONIN 10 MG TABLET PO SCH (20:45)
[2023-04-10 00:41] VITALS: BP 154/72
[2023-04-10] MEDS: VANCOMYCIN 1 GM/NS 250 ML IVPB IV SCH ×2 (00:46)
[2023-04-10] MEDS: PIPERACILLIN SODIUM/TAZOBACTAM 4.5 GM in NS (IVPB) 100 ML IV SCH (03:31)
[2023-04-10 04:09] VITALS: BP 147/68
[2023-04-10] MEDS: inSUlin ASPART (NovoLOG) 1 UNIT/0.01 ML (CHARGE PER UNIT) SC SCH ×4 (05:10→12:00)
[2023-04-10] MEDS: GABAPENTIN 400 MG (NEURONTIN) CAP PO SCH (05:15)
[2023-04-10] MEDS: MULTIVIT W/MINERALS TAB (THERAGRAN M) PO SCH (05:16)
[2023-04-10 06:29] LABS: BASOPHILS # (AUTO) 0.1 10^3/uL (0.0-0.1); BASOPHILS % (AUTO) 1 % (0-10); EOSINOPHILS # (AUTO) 0.5 10^3/uL (0.0-0.3); EOSINOPHILS % (AUTO) 5 % (0-10); HEMATOCRIT 41 % (35-52); HEMOGLOBIN 13.8 g/dL (11.5-16.0); LYMPHOCYTES # (AUTO) 2.1 10^3/uL (1.0-4.0); LYMPHOCYTES % (AUTO) 21 % (12-44); MEAN CORPUSCULAR HEMOGLOBIN 29 pg (25-34); MEAN CORPUSCULAR HGB CONC 34 g/dL (32-36); MEAN CORPUSCULAR VOLUME 84 fL (80-99); MEAN PLATELET VOLUME 12.4 fL (9.0-12.2); MONOCYTES # (AUTO) 0.6 10^3/uL (0.0-1.0); MONOCYTES % (AUTO) 6 % (0-12); NEUTROPHILS # (AUTO) 6.8 10^3/uL (1.8-7.8); NEUTROPHILS % (AUTO) 68 % (42-75); PLATELET COUNT 157 10^3/uL (130-400)
[2023-04-10 06:56] LABS: ALBUMIN 3.3 GM/DL (3.2-4.5); BILIRUBIN,TOTAL 0.4 MG/DL (0.1-1.0); CALCIUM 8.9 MG/DL (8.5-10.1); CREATININE SERUM 0.75 MG/DL (0.60-1.30); POTASSIUM 3.8 MMOL/L (3.6-5.0); TOTAL PROTEIN 5.9 GM/DL (6.4-8.2)
[2023-04-10 07:26] VITALS: BP 193/81
[2023-04-10] MEDS: RT-ALBUTEROL/IPRATROPIUM 3 ML (DUONEB) VIAL INH SCH (08:07)
[2023-04-10] MEDS ORDERED: RT-ALBUTEROL/IPRATROPIUM 3 ML (DUONEB) VIAL INH SCH (08:15)
[2023-04-10] MEDS: LACTOBACILLUS ACIDOPHILUS (PROBIOTIC) CAPSULE PO SCH (08:56)
[2023-04-10] MEDS: busPIRone 15 MG (BUSPAR) TABLET PO SCH (08:56)
[2023-04-10] MEDS: DOCUSATE SODIUM 100 MG (COLACE) CAP PO SCH (08:56)
[2023-04-10] MEDS: SENNOSIDES 8.6 MG (SENOKOT) TAB PO SCH (08:56)
[2023-04-10] MEDS: amLODIPine 10 MG (NORVASC) TAB PO SCH (08:56)
[2023-04-10] MEDS: ROSUVASTATIN 20 MG (CRESTOR) TABLET PO SCH (08:56)
[2023-04-10] MEDS: hydrALAZINE (APRESOLINE) 25 MG TAB PO SCH (08:57)
[2023-04-10] MEDS: toPIRamate 25 MG (TOPAMAX) TAB PO SCH (08:57)
[2023-04-10] MEDS: OXcarbazepine (TRILEPTAL) 300 MG TAB PO SCH (08:57)
[2023-04-10] MEDS: metFORMIN 500 MG (GLUCOPHAGE) TAB PO SCH (08:57)
[2023-04-10] MEDS ORDERED: AMOX1TAB12 PO (10:36)
--- NOTE | 2023-04-10 10:38 | Discharge Summary ---
Discharge Summary Hospital Course Was the Problem List Reviewed?: Yes Problems/Dx: (1) Cellulitis of right lower extremity Status: Acute (2) Physical debility Status: Acute (3) Hyponatremia Status: Resolved Hospital Course Date of Admission: Apr 07, 2023 at 22:53 Admission Diagnosis : Family Physician/Provider: Zeenat Hubbard MD Date of Discharge: 04/10/23 Discharge Diagnosis: [ ] Hospital Course: Uneventful course after she was admitted for hyponatremia and bilateral worsened cellulitis of legs. Fluid restriction was maintained with good results and patient was counseled on avoiding excessive fluid intake. Abx maintained as outpatient to complete treatment. Labs and Pending Lab Test: Laboratory Tests 04/09/23 10:46: Glucometer 114H 04/09/23 11:05: Vancomycin Level Trough 13.0 04/09/23 16:10: Glucometer 79 04/09/23 20:27: Glucometer 206H 04/10/23 05:09: Glucometer 112H 04/10/23 06:10: White Blood Count 10.0, Red Blood Count 4.83, Hemoglobin 13.8, Hematocrit 41, Mean Corpuscular Volume 84, Mean Corpuscular Hemoglobin 29, Mean Corpuscular Hemoglobin Concent 34, Red Cell Distribution Width 14.3, Platelet Count 157, Mean Platelet Volume 12.4H, Immature Granulocyte % (Auto) 0, Neutrophils (%) (Auto) 68, Lymphocytes (%) (Auto) 21, Monocytes (%) (Auto) 6, Eosinophils (%) (Auto) 5, Basophils (%) (Auto) 1, Neutrophils # (Auto) 6.8, Lymphocytes # (Auto) 2.1, Monocytes # (Auto) 0.6, Eosinophils # (Auto) 0.5H, Basophils # (Auto) 0.1, Immature Granulocyte # (Auto) 0.0, Sodium Level 132L, Potassium Level 3.8, Chloride Level 99, Carbon Dioxide Level 26, Anion Gap 7, Blood Urea Nitrogen 13, Creatinine 0.75, Estimat Glomerular Filtration Rate 86, BUN/Creatinine Ratio 17, Glucose Level 111H, Calcium Level 8.9, Corrected Calcium 9.5, Total Bilirubin 0.4, Aspartate Amino Transf (AST/SGOT) 12, Alanine Aminotransferase (ALT/SGPT) 10, Alkaline Phosphatase 91, Total Protein 5.9L, Albumin 3.3 Microbiology 04/07/23 Blood Culture - Preliminary, Resulted No growth 04/07/23 Urine Culture - Final, Complete NO GROWTH Home Meds Active Amox Tr-K Clv 875-125 mg Tab (Amoxicillin/Potassium Clav) 875 Mg-125 Mg Tablet 1 Each PO BID Tresiba Flextouch U-100 (Insulin Degludec) 100 Unit/Ml (3 Ml) Insuln.pen 40 Unit SQ HS Buspirone HCl 30 Mg Tablet 30 Mg PO BID Novolog Flexpen (Insulin Aspart) 100 Unit/Ml (3 Ml) Solution 16 Units SC TIDAC Reported Metformin HCl 1,000 Mg Tablet 1,000 Mg PO BID LAST FILLED 01-29-2023 #60/30 DAY SUPPLY Amlodipine Besylate 5 Mg Tablet 10 Mg PO DAILY TAKES 2 (5MG) TABS LAST FILLED 01-11-2023 #60/30 DAY SUPPLY Omeprazole 40 Mg Capsule.dr 40 Mg PO DAILY PRN Rosuvastatin Calcium 20 Mg Tablet 20 Mg PO DAILY LAST FILLED 11-24-2022 #90/90 DAY SUPPLY Ibuprofen 200 Mg Tablet 400-800 Mg PO Q8H PRN Melatonin 5 Mg Tablet 5 Mg PO HS Multivitamin 1 Each Tablet 1 Each PO DAILY Preservision Areds 2 Softgel (Vit C/E/Zn/Coppr/Lutein/Zeaxan) 250MG-90MG Capsule 1 Each PO BID WITH MEALS Probiotics (Bacillus Coagulans) 2.5 Billion Cell Tab.chew 1 Each PO BID WITH MEALS Furosemide 40 Mg Tablet 40 Mg PO DAILY PRN Hydralazine HCl 25 Mg Tablet 25 Mg PO TID Topiramate 50 Mg Tablet 50 Mg PO DAILY Oxcarbazepine 300 Mg Tablet 300 Mg PO BID Gabapentin 800 Mg Tablet 1,200 Mg PO HS TAKES 1 & (800MG) TABS Gabapentin 800 Mg Tablet 800 Mg PO 0700,1400 Assessment/Pt Instructions PCP 1 week Discharge Planning: <30 minutes discharge planning Discharge Instructions Discharge Diet: ADA Diet Discharge Physical Examination Vital Signs Vital Signs Date Time Temp Pulse Resp B/P (MAP) Pulse Ox O2 Delivery O2 Flow Rate FiO2 04/10/23 08:05 Room Air 04/10/23 07:26 37.2 68 20 193/81 (118) 94 04/08/23 12:12 21 General Appearance: No Apparent Distress, WD/WN Allergies: Coded Allergies: exenatide (Unverified Allergy, Unknown, 03/24/22) methylphenidate (Unverified Allergy, Unknown, 03/24/22) morphine (Verified Adverse Reaction, Mild, NAUSEA, 05/19/16) sulfamethoxazole (Unverified Adverse Reaction, Unknown, 10/13/22) HALLUCINATIONS trimethoprim (Unverified Adverse Reaction, Unknown, 10/13/22) HALLUCINATIONS Discharge Summary Date of Admission Apr 07, 2023 at 22:53 Date of Discharge Discharge Date: Apr 10, 2023 Admission Diagnosis Assessment: Severe hyponatremia Bilateral cellulitis acute on chronic Diabetes Hypertension Hyperlipidemia COPD Obesity Plan: Fluid restrict Moved to fourth floor IV antibiotics PT and OT DVT prophylaxis Discharge Diagnosis Assessment: Severe hyponatremia Bilateral cellulitis acute on chronic Diabetes Hypertension Hyperlipidemia COPD Obesity Plan: Fluid restrict Moved to fourth floor IV antibiotics PT and OT DVT prophylaxis HERMILA SWAIN DO Apr 10, 2023 10:38
--- NOTE | 2023-04-10 10:38 | D/C HH Face to Face Order ---
D/C Face to Face Orders Reconcile Patient Problems Problems Reviewed?: Yes Instructions for Patient Via [employer], Patient Instructions/FollowUp: PCP Krupa 04/13/23 Physician to follow Patient: [facility] Discharge Diet for Home: No Restrictions Patient Problems: Cellulitis Patient Data-Allergies,Ht & Wt Patient Allergies: Coded Allergies: exenatide (Unverified Allergy, Unknown, 03/24/22) methylphenidate (Unverified Allergy, Unknown, 03/24/22) morphine (Verified Adverse Reaction, Mild, NAUSEA, 05/19/16) sulfamethoxazole (Unverified Adverse Reaction, Unknown, 10/13/22) HALLUCINATIONS trimethoprim (Unverified Adverse Reaction, Unknown, 10/13/22) HALLUCINATIONS Height (Feet): 5 Height (Inches): 65.00 Weight (Pounds): 252 Weight (Ounces): 14.0 Home Health Need/Face to Face Date of Face to Face: Apr 10, 2023 Clinical Findings: Generalized weakness and fatigue, Instability, Muscle weakness I have seen Pt [id number]: Yes Discharged To: Home Diagnosis/Conditions: Cellulitis Patient is Homebound due to: Jessa fall risk due to instabilty, Muscle weakness Homebound Status Due to the above stated illness, injury or surgical procedure (medical condition or diagnosis) and associated clinical findings, the patient is homebound because of his/her inability to leave home except with aid of a supportive device and/or person AND leaving the home requires a considerable and taxing effort or is medically contraindicated. Pt req the following assistanc: Walker Home Health Nursing Orders Home Health Services Order: Nursing Services, Residential Program Coordinator-Evaluate & Treat, Physical Therapy-Evaluate & Treat Home Health Infusion Therapy Line Start Date: Apr 07, 2023 Certify Stmt I certify that this patient is under my care and that I, a nurse practitioner or a physician; a assistant sales director working with me, had a face to face encounter that - meets the physician face to face encounter requirements with this patient as dated. HERMILA SWAIN DO Apr 10, 2023 10:38
[2023-04-10 11:16] VITALS: BP 158/82
[2023-04-10] MEDS: ENOXAPARIN 40 MG/0.4 ML (LOVENOX) SYR SC SCH (11:20)
== END 2023-04-10 13:36 | disposition home health service (06) | DRG 603 ==
LOC: EDUNIT# 20:55 → ER 20:57 → CSD 22:53 → 4TH 04-08 12:33
PROVIDERS: ADMIT Family Medicine; ATTEND Internal Medicine
DX: L03.115 Cellulitis of right lower limb (principal); E87.1 Hypo-osmolality and hyponatremia; Z68.41 Body mass index [BMI] 40.0-44.9, adult; R53.81 Other malaise; I10 Essential (primary) hypertension; E78.5 Hyperlipidemia, unspecified; J44.9 Chronic obstructive pulmonary disease, unspecified; E66.9 Obesity, unspecified; Z87.891 Personal history of nicotine dependence; E11.40 Type 2 diabetes mellitus with diabetic neuropathy, unspecified; K21.9 Gastro-esophageal reflux disease without esophagitis; M19.90 Unspecified osteoarthritis, unspecified site; F41.9 Anxiety disorder, unspecified; F32.A Depression, unspecified; Z85.820 Personal history of malignant melanoma of skin; Z79.4 Long term (current) use of insulin; Z79.84 Long term (current) use of oral hypoglycemic drugs; Z79.899 Other long term (current) drug therapy
CPT/HCPCS: 36415; 51702; 71045; 80053; 80202; 81000; 82550; 82553; 82947; 83605; 83690; 83735; 83874; 83880; 85025; 85610; 85652; 85730; 86141; 87040; 87088; 93041; 94640; 94760

== ENCOUNTER 2023-05-30 11:43 | Emergency (ER) | payer MEDICARE ==
[~2023-05-30] VITALS: Ht 165 cm; Wt 121.0 kg
[~2023-05-30 11:43] MED LIST changes: +AMOX1TAB12 PO; +BACI1TAB25 PO; +IBUP-2473 PO; +MELA5TAB14 PO; +MULT-1136 PO; +OXCA300T18 PO; -ROSU20TA32 PO; +ROSU20TA73 PO
[2023-05-30] MEDS ORDERED: NS IV 1000 ML 1,000 ML IV SCH (12:00)
[2023-05-30] MEDS ORDERED: ONDANSETRON 4 MG/2 ML (SDV) Z0FRAN IVP ONE (12:00)
[2023-05-30 12:19] LABS: BASOPHILS # (AUTO) 0.1 10^3/uL (0.0-0.1); BASOPHILS % (AUTO) 1 % (0-10); EOSINOPHILS # (AUTO) 0.4 10^3/uL (0.0-0.3); EOSINOPHILS % (AUTO) 3 % (0-10); HEMATOCRIT 44 % (35-52); HEMOGLOBIN 15.3 g/dL (11.5-16.0); LYMPHOCYTES # (AUTO) 1.9 10^3/uL (1.0-4.0); LYMPHOCYTES % (AUTO) 14 % (12-44); MEAN CORPUSCULAR HEMOGLOBIN 29 pg (25-34); MEAN CORPUSCULAR HGB CONC 35 g/dL (32-36); MEAN CORPUSCULAR VOLUME 82 fL (80-99); MEAN PLATELET VOLUME 10.2 fL (9.0-12.2); MONOCYTES # (AUTO) 0.7 10^3/uL (0.0-1.0); MONOCYTES % (AUTO) 5 % (0-12); NEUTROPHILS # (AUTO) 10.4 10^3/uL (1.8-7.8); NEUTROPHILS % (AUTO) 77 % (42-75); PLATELET COUNT 162 10^3/uL (130-400); WHITE BLOOD COUNT 13.6 10^3/uL (4.3-11.0)
[2023-05-30 12:29] LABS: BILIRUBIN,URINE NEGATIVE (NEGATIVE); CLARITY,URINE CLEAR; COLOR,URINE YELLOW; GLUCOSE, URINE (UA) TRACE (NEGATIVE); KETONES,URINE NEGATIVE (NEGATIVE); LEUKOCYTE ESTERASE ,URINE NEGATIVE (NEGATIVE); NITRITE,URINE NEGATIVE (NEGATIVE); PROTEIN,URINE TRACE (NEGATIVE)
[2023-05-30 12:31] LABS: ALBUMIN 3.6 GM/DL (3.2-4.5); POTASSIUM 3.6 MMOL/L (3.6-5.0)
[2023-05-30 12:33] LABS: TOTAL PROTEIN 6.6 GM/DL (6.4-8.2)
[2023-05-30 12:35] LABS: BILIRUBIN,TOTAL 0.4 MG/DL (0.1-1.0)
[2023-05-30 12:37] LABS: CREATININE SERUM 0.74 MG/DL (0.60-1.30)
[2023-05-30 12:39] LABS: MAGNESIUM 1.8 MG/DL (1.6-2.4)
[2023-05-30 12:56] LABS: BACTERIA,URINE NEGATIVE /HPF; SQUAMOUS EPITHELIAL CELL,UR RARE /HPF
--- NOTE | 2023-05-30 13:13 | ED General ---
General Chief Complaint: Abdominal/GI Problems Stated Complaint: NAUSEA | UTI Nursing Triage Note: pt presents to ed via ems with complaints of nausea and malaise after 6 days of antibiotics for uti. pt was seen in [place] er today and evaluated and discharged. pt reports not feeling better. pt also reports l lower leg pain. pt has hx of cellultis in that leg. Source of Information: Patient, EMS, Old Records (Urine culture from [place]) Exam Limitations: No Limitations History of Present Illness Date Seen by Provider: May 30, 2023 Time Seen by Provider: 11:44 Initial Comments This 68-year-old woman presents to the emergency room via EMS with primary complaint of severe nausea without vomiting over the past week. She has been taking cefuroxime for about the past 6 days for urinary tract infection that was diagnosed during an ER visit at [facility]. She has been severely nauseated since then. She has some mild left and central abdominal pain. She denies any vomiting. She has had both constipation and diarrhea during this timeframe. She has had some weakness as well. She reports being ambulatory at home today but she is not able to move from the EMS gurney to the hospital bed. She has been taking her antibiotic but does not feel like she has overall been improving. She reports blood sugars have been well controlled in the 100-200 range. She lives in [place] but elected to come to [place] because her symptoms have not improved since being treated in [facility]. Her primary care provider is Dr. Kayla Gutierrez. She reports having cellulitis in the recent past requiring treatment and states that has much improved. Allergies and Home Medications Allergies Coded Allergies: exenatide (Unverified Allergy, Unknown, 03/24/22) methylphenidate (Unverified Allergy, Unknown, 03/24/22) morphine (Verified Adverse Reaction, Mild, NAUSEA, 05/19/16) sulfamethoxazole (Unverified Adverse Reaction, Unknown, 10/13/22) HALLUCINATIONS trimethoprim (Unverified Adverse Reaction, Unknown, 10/13/22) HALLUCINATIONS Patient Home Medication List Home Medication List Reviewed: Yes Amlodipine Besylate (Amlodipine Besylate) 5 Mg Tablet, 10 MG PO DAILY, (Reported) Entered as Reported by: PRASANTH TELLO on 04/08/23 1353 Amoxicillin/Potassium Clav (Amox Tr-K Clv 875-125 mg Tab) 875 Mg-125 Mg Tablet, 1 EACH PO BID Prescribed by: HERMILA SWAIN on 04/10/23 1036 Bacillus Coagulans (Probiotics) 2.5 Billion Cell Tab.chew, 1 EACH PO BID WITH MEALS, (Reported) Entered as Reported by: PRASANTH TELLO on 04/08/23 135 Buspirone HCl (Buspirone HCl) 30 Mg Tablet, 30 MG PO BID Prescribed by: HERMILA WSAIN on 02/14/23 1028 Famotidine (Pepcid) 20 Mg Tablet, 20 MG PO BID Prescribed by: QING TREVIÑO on 05/30/23 1500 Furosemide (Furosemide) 40 Mg Tablet, 40 MG PO DAILY PRN for FLUID RETENTION, (Reported) Entered as Reported by: PRASANTH TELLO on 04/08/23 135 Gabapentin (Gabapentin) 800 Mg Tablet, 800 MG PO 0700,1400, (Reported) Entered as Reported by: PRASANTH TELLO on 04/08/23 135 Gabapentin (Gabapentin) 800 Mg Tablet, 1,200 MG PO HS, (Reported) Entered as Reported by: PRASANTH TELLO on 04/08/23 135 Hydralazine HCl (Hydralazine HCl) 25 Mg Tablet, 25 MG PO TID, (Reported) Entered as Reported by: PRASANTH TELLO on 04/08/23 135 Ibuprofen (Ibuprofen) 200 Mg Tablet, 400-800 MG PO Q8H PRN for PAIN-MILD (1-4), (Reported) Entered as Reported by: PRASANTH TELLO on 04/08/23 135 Insulin Aspart (Novolog Flexpen) 100 Unit/Ml (3 Ml) Solution, 16 UNITS SC TIDAC Prescribed by: HERMILA SWAIN on 02/14/23 1028 Insulin Degludec (Tresiba Flextouch U-100) 100 Unit/Ml (3 Ml) Insuln.pen, 40 UNIT SQ HS Prescribed by: HERMILA SWAIN on 02/14/23 1028 Melatonin (Melatonin) 5 Mg Tablet, 5 MG PO HS, (Reported) Entered as Reported by: PRASANTH TELLO on 04/08/23 135 Metformin HCl (Metformin HCl) 1,000 Mg Tablet, 1,000 MG PO BID, (Reported) Entered as Reported by: PRASANTH TELLO on 04/08/23 135 Metoclopramide HCl (Reglan) 5 Mg Tablet, 5 MG PO QIDACHS PRN for NAUSEA/VOMITING Prescribed by: QING TREVIÑO on 05/30/23 1500 Multivitamin (Multivitamin) 1 Each Tablet, 1 EACH PO DAILY, (Reported) Entered as Reported by: PRASANTH TELLO on 04/08/23 135 Omeprazole (Omeprazole) 40 Mg Capsule.dr, 40 MG PO DAILY PRN for HEARTBURN, (Reported) Entered as Reported by: PRASANTH TELLO on 04/08/23 135 Ondansetron (Ondansetron Odt) 4 Mg Tab.rapdis, 4 MG SL Q4H PRN for NAUSEA/VOMITING-2ND LINE Prescribed by: QING TREVIÑO on 05/30/231499 Oxcarbazepine (Oxcarbazepine) 300 Mg Tablet, 300 MG PO BID, (Reported) Entered as Reported by: PRASANTH TELLO on 04/08/23 135 Rosuvastatin Calcium (Rosuvastatin Calcium) 20 Mg Tablet, 20 MG PO DAILY, (Reported) Entered as Reported by: PRASANTH TELLO on 04/08/231352 Topiramate (Topiramate) 50 Mg Tablet, 50 MG PO DAILY, (Reported) Entered as Reported by: PRASANTH TELLO on 04/08/231352 Vit C/E/Zn/Coppr/Lutein/Zeaxan (Preservision Areds 2 Softgel) 250MG-90MG Capsule, 1 EACH PO BID WITH MEALS, (Reported) Entered as Reported by: PRASANTH TELLO on 04/08/23 135 Review of Systems Review of Systems Constitutional: see HPI EENTM: no symptoms reported Respiratory: no symptoms reported Cardiovascular: no symptoms reported Gastrointestinal: see HPI Genitourinary: see HPI Musculoskeletal: no symptoms reported Skin: no symptoms reported Psychiatric/Neurological: No Symptoms Reported Hematologic/Lymphatic: No Symptoms Reported Immunological/Allergic: no symptoms reported Past Dmrqknh-Wwxafh-Wtnprp Hx Patient Social History Tobacco Use?: Yes Tobacco type used: Cigarettes Smoking Status: Current Everyday Smoker Substance use?: No Alcohol Use?: No Pt feels they are or have been: No Immunizations Up To Date Tetanus Booster (TDap): Unknown PED Vaccines UTD: No First/Initial COVID19 Vaccinat: UNKNOWN Second COVID19 Vaccination Dae: UNKNOWN Third COVID19 Vaccination Date: UNKNOWN Seasonal Allergies Seasonal Allergies: Yes Past Medical History Surgery/Hospitalization HX: htn, DI, cellulatis, neuropathy, depression, anxiety, copd Surgeries: Yes Abdominal (bariatric surgery), Appendectomy, Section, Gallbladder, Hysterectomy, Orthopedic Respiratory: Yes COPD Currently Using CPAP: No Currently Using BIPAP: No Cardiac: Yes Hypertension Neurological: Yes Neuropathy 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 Disorders: No Female 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 Disorders: Denies TRIBAL DELEGATE History: Hysterectomy, Menopausal Sexually Transmitted Disease: No HIV/AIDS: No Genitourinary: No Gastrointestinal: Yes Gastroesophageal Reflux, Hiatal Hernia Musculoskeletal: Yes Arthritis Endocrine: Yes Diabetes, Insulin dep HEENT: Yes Cataract Loss of Vision: Bilateral Hearing Impairment: Hard of Hearing Cancer: Yes Melanoma Psychosocial: Yes Anxiety, Depression Integumentary: Yes (venous stasis; CELLULITIS OF LEGS) Psoriasis Blood Disorders: No Adverse Reaction/Blood Tranf: No Family Medical History AIDS Alcoholism Arthritis Asthma Cataracts Coronary thrombosis Diabetes mellitus Drug abuse Glaucoma Psychosocial problem Respiratory disorder No Family History of: [place]'s disease Alzheimer's disease Aphasia Cancer of mouth Cardiovascular disease Colon cancer Completed stroke Congenital disease Congenital heart disease Cystic fibrosis Deafness or hearing loss Dementia Dysphasia Fibrocystic disease of breast Gastroenteritis Headache disorder Hypercholesterolemia Hypertension Infertility Kidney disease Myocardial infarction Neoplasm Not obtainable due to adoption Osteoporosis Parkinson's disease Prostate cancer Seizure disorder Severe allergy Thyroid disease Tuberculosis Visual disorder Cancer, Diabetes, Hypertension SOCIAL HISTORY: -SMOKED 1 PPD, QUIT -ETOH-OCCASIONAL USE -DRUGS-DENIES USE PAST SURGICAL HISTORY: - -HYSTERECTOMY -HERNIA REPAIR -LEFT KNEE SCOPE Physical Exam Vital Signs Vital Signs - First Documented 05/30/23 11:55 Temp 36.3 Pulse 65 Resp 16 B/P (MAP) 145/71 (95) Pulse Ox 95 Capillary Refill : Less Than 3 Seconds Height, Weight, BMI Height: 5'65.00" Weight: 252lbs. 14.0oz. 114.125034hi; 44.00 BMI Method:Stated General Appearance: WD/WN, Mild Distress, Obese HEENT: Normal ENT Inspection, Other (Oropharynx very dry) Neck: Normal Inspection Respiratory: Lungs Clear, Normal Breath Sounds, No Accessory Muscle Use Cardiovascular: Regular Rate, Rhythm, No Edema, No Murmur Gastrointestinal: Normal Bowel Sounds, Non Tender, Soft Extremity: No Pedal Edema, Other (Mild erythema and chronic appearing skin changes to the lower extremities. 2 healing wounds on the left lower leg.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: Alert, Oriented x3, No Motor/Sensory Deficits, Normal Mood/Affect Skin: Warm/Dry, Other (Chronic appearing skin changes to the lower extremities with healing wounds) Progress/Results/Core Measures Suspected Sepsis SIRS Temperature: Pulse: 65 Respiratory Rate: 16 Laboratory Tests 05/30/23 12:10: White Blood Count 13.6H Blood Pressure 145 /71 Mean: 95 Laboratory Tests 05/30/23 12:10: Creatinine 0.74, Platelet Count 162, Total Bilirubin 0.4 Results/Orders Lab Results Laboratory Tests Test 05/30/23 12:10 05/30/23 12:24 Range/Units White Blood Count 13.6 H 4.3-11.0 10^3/uL Red Blood Count 5.37 H 3.80-5.11 10^6/uL Hemoglobin 15.3 11.5-16.0 g/dL Hematocrit 44 35-52 % Mean Corpuscular Volume 82 80-99 fL Mean Corpuscular Hemoglobin 29 25-34 pg Mean Corpuscular Hemoglobin Concent 35 32-36 g/dL Red Cell Distribution Width 13.8 10.0-14.5 % Platelet Count 162 130-400 10^3/uL Mean Platelet Volume 10.2 9.0-12.2 fL Immature Granulocyte % (Auto) 1 % Neutrophils (%) (Auto) 77 H 42-75 % Lymphocytes (%) (Auto) 14 12-44 % Monocytes (%) (Auto) 5 0-12 % Eosinophils (%) (Auto) 3 0-10 % Basophils (%) (Auto) 1 0-10 % Neutrophils # (Auto) 10.4 H 1.8-7.8 10^3/uL Lymphocytes # (Auto) 1.9 1.0-4.0 10^3/uL Monocytes # (Auto) 0.7 0.0-1.0 10^3/uL Eosinophils # (Auto) 0.4 H 0.0-0.3 10^3/uL Basophils # (Auto) 0.1 0.0-0.1 10^3/uL Immature Granulocyte # (Auto) 0.1 0.0-0.1 10^3/uL Sodium Level 126 L 135-145 MMOL/L Potassium Level 3.6 3.6-5.0 MMOL/L Chloride Level 91 L 98-107 MMOL/L Carbon Dioxide Level 28 21-32 MMOL/L Anion Gap 7 5-14 MMOL/L Blood Urea Nitrogen 12 7-18 MG/DL Creatinine 0.74 0.60-1.30 MG/DL Estimat Glomerular Filtration Rate 87 BUN/Creatinine Ratio 16 Glucose Level 159 H 70-105 MG/DL Calcium Level 9.0 8.5-10.1 MG/DL Corrected Calcium 9.3 8.5-10.1 MG/DL Magnesium Level 1.8 1.6-2.4 MG/DL Total Bilirubin 0.4 0.1-1.0 MG/DL Aspartate Amino Transf (AST/SGOT) 14 5-34 U/L Alanine Aminotransferase (ALT/SGPT) 13 0-55 U/L Alkaline Phosphatase 110 40-136 U/L C-Reactive Protein High Sensitivity 1.53 H 0.00-0.50 MG/DL Total Protein 6.6 6.4-8.2 GM/DL Albumin 3.6 3.2-4.5 GM/DL Lipase 17 8-78 U/L Urine Color YELLOW Urine Clarity CLEAR Urine pH 7.0 5-9 Urine Specific Metcalf <=1.005 1.016-1.022 Urine Protein TRACE H NEGATIVE Urine Glucose (UA) TRACE H NEGATIVE Urine Ketones NEGATIVE NEGATIVE Urine Nitrite NEGATIVE NEGATIVE Urine Bilirubin NEGATIVE NEGATIVE Urine Urobilinogen 0.2 < = 1.0 MG/DL Urine Leukocyte Esterase NEGATIVE NEGATIVE Urine RBC (Auto) NEGATIVE NEGATIVE Urine RBC NONE /HPF Urine WBC NONE /HPF Urine Squamous Epithelial Cells RARE /HPF Urine Crystals NONE /LPF Urine Bacteria NEGATIVE /HPF Urine Casts NONE /LPF Urine Mucus NEGATIVE /LPF Urine Culture Indicated NO My Orders Orders - QING GODDARD MD Cbc With Automated Diff (05/30/23 11:56) Comprehensive Metabolic Panel (05/30/23 11:56) Lipase (05/30/23 11:56) Magnesium (05/30/23 11:56) Ua Culture If Indicated (05/30/23 11:56) Ed Iv/Invasive Line Start (05/30/23 11:56) Ns Iv 1000 Ml (Sodium Chloride 0.9%) (05/30/23 12:00) Ondansetron Injection (Zofran Injectio (7/31/23 12:00) Hs C Reactive Protein (05/30/23 13:24) Ct Abdomen/Pelvis W (05/30/23 13:24) Iohexol Injection (Omnipaque 350 Mg/Ml 1 (05/30/23 13:45) Received Contrast (Hold Metformin- Contr (05/30/23 13:45) Ns (Ivpb) 100 Ml (Sodium Chloride 0.9% 1 (05/30/23 13:45) Metoclopramide Injection (Reglan Injecti (05/30/23 15:00) Medications Given in ED Vital Signs/I&O 05/30/23 05/30/23 11:55 15:13 Temp 36.3 36.3 Pulse 65 71 Resp 16 16 B/P (MAP) 145/71 (95) 142/63 Pulse Ox 95 96 Capillary Refill : Less Than 3 Seconds Blood Pressure Mean: 95 Progress Note #1: Time: 13:48 Progress Note Patient was interviewed and examined upon arrival. Report was received from EMS. I began triage process until nursing staff was available. Labs were obtained, reviewed, and interpreted by me. CBC was notable for mild leukocytosis of 13.6. CMP was remarkable for sodium of 126 and glucose of 159. Electrolytes were normal. Lipase was normal at 15. CRP demonstrated no significant elevation. She was treated with Zofran and a 1 L normal saline bolus with significant improvement. I discussed the findings with her and her symptom presentation. She does have some mild abdominal discomfort and tenderness to palpation. We discussed the possibility of continuing evaluation with CT scan. Patient ultimately elected to pursue CT imaging. Further treatment and work-up will be based on results of the CT study. She has not required any pain medication. Vital signs have been unremarkable. Patient was reexamined and found to still have left-sided and mid abdominal tenderness. Urinalysis was unremarkable. Urine culture from [place] was obtained and reviewed. Culture demonstrated Klebsiella with broad sensitivity to cephalosporins. She was treated appropriately. Urinalysis today showed resolution of UTI. Progress Note #2: Time: 15:[address] imaging was obtained. There were no significant acute abnormalities on my interpretation or on review of radiologist's report. Patient was feeling significantly improved after treatment but nausea was beginning to rebound. She does not like using sublingual Zofran tablets at home. We are going to give her a trial of Reglan as she may have some component of gastroparesis with her diabetes. A prescription for both was also provided. Patient was reassessed and CT results were reviewed with the patient. She is stable and improved at this time. She is requiring no other treatments and is stable for discharge. With history of bariatric surgery, she may also be experiencing gastritis. Pepcid was prescribed. See discharge instructions for further discussion. Diagnostic Imaging Diagonstic Imaging: CT Plain Films/CT/US/NM/MRI: abdomen, pelvis Comments NAME: JANEEN MAC [employer] REC#: [id number] PT STATUS: DEP ER : 1955 PHYSICIAN: QING GODDARD MD ADMIT DATE: 05/30/23/ER Signed Date of Exam:05/30/23 CT ABDOMEN/PELVIS W PROCEDURE: CT abdomen and pelvis with contrast. TECHNIQUE: Multiple contiguous axial images were obtained through the abdomen and pelvis after administration of intravenous contrast. Auto Exposure Controls were utilized during the CT exam to meet ALARA standards for radiation dose reduction. All CT scans use one or more of the following dose optimizing techniques: automated exposure control, MA and/or KvP adjustment based on patient size and exam type or iterative reconstruction. INDICATION: Nausea and malaise. COMPARISON: Correlation is made with the prior CT from 11/10/2017. FINDINGS: The lung bases are clear of acute infiltrates. No discrete liver mass is detected. The gallbladder is surgically absent. There is no biliary ductal dilatation. The pancreas and spleen are unremarkable. There appear to be postop changes in the left upper quadrant. No adrenal mass is identified. The kidneys are unremarkable. The aorta is calcified but nonaneurysmal. The small and large bowel loops appear to be normal in caliber. No obstruction is identified. There are postop changes to the anterior abdominal wall, likely from hernia repair. No free fluid or fluid collection is detected. The bladder is unremarkable. The uterus is surgically absent. The bony structures are nonacute. IMPRESSION: Post operative changes. No acute feature in the abdomen or pelvis is identified. Dictated by: Dictated on workstation # [id number] Dict: 05/30/23 1401 Trans: 05/30/23 1629 [id number] Interpreted by: MANUEL MCCLELLAND MD Electronically signed by: MANUEL MCCLELLAND MD 05/30/23 1629 Departure Impression Primary Impression: Abdominal pain Qualified Codes: R10.9 - Unspecified abdominal pain Additional Impressions: Nausea alone Hyponatremia Disposition: 01 HOME, SELF-CARE Condition: Improved Departure-Patient Inst. Decision time for Depature: 14:56 Referrals: KAYLA GUTIERREZ MD (PCP/Family) Primary Care Physician Patient Instructions: Gastroparesis (delayed gastric emptying), Hyponatremia, Nausea and Vomiting, Adult Add. Discharge Instructions: Start with a noncarbonated clear liquid diet and adhere to a clear liquid diet for the rest of today. Then gradually advance your diet with small quantities of bland food as tolerated. You may try using Reglan (metoclopramide) about 15 to 30 minutes before meals to help with nausea. This medication is particularly helpful for gastroparesis and diabetes. It is possible that you are experiencing some early gastroparesis contributing to the symptoms. If you are too nauseous to swallow the Reglan, use the Zofran sublingual tablets. Stop Reglan if you develop unusual and unwanted twitching movements, uncontrolled body movements, diarrhea, or excessive drowsiness. Also use Pepcid as prescribed as you may be experiencing some acid reflux and/or gastritis contributing to your symptoms. Follow-up with your primary care provider within the next couple of weeks for repeat evaluation. Return to the emergency room if you have worsening symptoms despite following these instructions. All discharge instructions reviewed with patient and/or family. Voiced understanding. Scripts Ondansetron (Ondansetron Odt) 4 Mg Tab.rapdis 4 MG SL Q4H PRN for NAUSEA/VOMITING-2ND LINE, #10 TAB Prov: QING GODDARD MD 05/30/23 Famotidine (Pepcid) 20 Mg Tablet 20 MG PO BID, #30 TAB Prov: QING GODDARD MD 05/30/23 Metoclopramide HCl (Reglan) 5 Mg Tablet 5 MG PO QIDACHS PRN for NAUSEA/VOMITING, #60 TAB Prov: QING GODDARD MD 05/30/23 Copy Copies To 1: KAYLA GUTIERREZ MD, JOSHUA T MD May 30, 2023 13:13
[2023-05-30] MEDS ORDERED: NS 100 ML (IVPB) BAG IV ONE (13:45)
[2023-05-30] MEDS ORDERED: IOHEXOL 350 MG/ML 100 ML (OMNIPAQUE 350) VIAL IV ONE (13:45)
[2023-05-30] MEDS ORDERED: HOLD METFORMIN - RECEIVED CONTRAST 20 ML VIAL IV SCH (13:45)
--- NOTE | 2023-05-30 14:16 | Diagnostic Imaging Report ---
PROCEDURE: CT abdomen and pelvis with contrast. TECHNIQUE: Multiple contiguous axial images were obtained through the abdomen and pelvis after administration of intravenous contrast. Auto Exposure Controls were utilized during the CT exam to meet ALARA standards for radiation dose reduction. All CT scans use one or more of the following dose optimizing techniques: automated exposure control, MA and/or KvP adjustment based on patient size and exam type or iterative reconstruction. INDICATION: Nausea and malaise. COMPARISON: Correlation is made with the prior CT from 11/10/2017. FINDINGS: The lung bases are clear of acute infiltrates. No discrete liver mass is detected. The gallbladder is surgically absent. There is no biliary ductal dilatation. The pancreas and spleen are unremarkable. There appear to be postop changes in the left upper quadrant. No adrenal mass is identified. The kidneys are unremarkable. The aorta is calcified but nonaneurysmal. The small and large bowel loops appear to be normal in caliber. No obstruction is identified. There are postop changes to the anterior abdominal wall, likely from hernia repair. No free fluid or fluid collection is detected. The bladder is unremarkable. The uterus is surgically absent. The bony structures are nonacute. IMPRESSION: Post operative changes. No acute feature in the abdomen or pelvis is identified. Dictated by: Dictated on workstation # [id number]
[2023-05-30] MEDS ORDERED: ONDA4TAB11 SL (15:00)
[2023-05-30] MEDS ORDERED: METO5TAB75 PO (15:00)
[2023-05-30] MEDS ORDERED: METOCLOPRAMIDE INJ 10 MG/2 ML (REGLAN) IVP ONE (15:00)
[2023-05-30] MEDS ORDERED: FAMO-119 PO (15:00)
[2023-05-30 15:13] VITALS: BP 142/63
== END 2023-05-30 15:12 | disposition home or self-care (01) ==
LOC: EDUNIT# 11:43 → ER 11:44
DX: R10.9 Unspecified abdominal pain (principal); E87.1 Hypo-osmolality and hyponatremia; N39.0 Urinary tract infection, site not specified; F17.210 Nicotine dependence, cigarettes, uncomplicated; E11.9 Type 2 diabetes mellitus without complications; Z79.4 Long term (current) use of insulin; Z87.19 Personal history of other diseases of the digestive system; Z90.49 Acquired absence of other specified parts of digestive tract; Z98.890 Other specified postprocedural states
CPT/HCPCS: 36415; 74177; 80053; 81000; 83690; 83735; 85025; 86141

== ENCOUNTER 2023-09-17 19:31 | Emergency (ER) | payer MEDICARE ==
[~2023-09-17] VITALS: Ht 165 cm; Wt 124.0 kg
[~2023-09-17 19:31] MED LIST changes: -ESTR0.5T PO; +ESTR0.5T2 PO; +FAMO-119 PO; +METO5TAB75 PO
--- NOTE | 2023-09-17 20:27 | ED General ---
General Chief Complaint: General Problems/Pain Stated Complaint: UTI/BOWEL PROBLEMS/NAUSEA Nursing Triage Note: CONSTIPATION, BURNING WITH URINATION, NAUSEA, MALAISE X6 DAYS. Source of Information: Patient Exam Limitations: No Limitations History of Present Illness Date Seen by Provider: Sep 17, 2023 Time Seen by Provider: 20:09 Initial Comments 68-year-old female presents to the ER with complaints of not feeling well for the last 5 to 6 days. She states that she thinks she has a UTI. Reports some burning after she urinates. States as though she feels as like she fluctuates between hot and cold. She reports some nausea, denies vomiting. She also reports she has been having issues with constipation for approximately the last 2 months. She reports that she has been taking Dulcolax, stool softeners, MiraLAX without relief. States she last had a bowel movement approximately 4-5 days ago. She reports that her stools are soft. She states that she has not been eating a lot because she has no appetite. Patient was started on Mounjaro 2 months ago which was when these symptoms started. She denies any abdominal pain. Allergies and Home Medications Allergies Coded Allergies: exenatide (Unverified Allergy, Unknown, 03/24/22) methylphenidate (Unverified Allergy, Unknown, 03/24/22) morphine (Verified Adverse Reaction, Mild, NAUSEA, 05/19/16) sulfamethoxazole (Unverified Adverse Reaction, Unknown, 10/13/22) HALLUCINATIONS trimethoprim (Unverified Adverse Reaction, Unknown, 10/13/22) HALLUCINATIONS Patient Home Medication List Home Medication List Reviewed: Yes Amlodipine Besylate (Amlodipine Besylate) 5 Mg Tablet, 10 MG PO DAILY, (Reported) Entered as Reported by: PRASANTH TELLO on 04/08/23 1353 Buspirone HCl (Buspirone HCl) 30 Mg Tablet, 30 MG PO BID Prescribed by: HERMILA SWAIN on 02/14/23 1028 Cephalexin (Cephalexin) 500 Mg Tablet, 500 MG PO BID Prescribed by: Filomena Alaniz on 09/17/23 2226 Famotidine (Pepcid) 20 Mg Tablet, 20 MG PO BID Prescribed by: QING TREVIÑO on 05/30/23 1500 Furosemide (Furosemide) 40 Mg Tablet, 40 MG PO DAILY PRN for FLUID RETENTION, (Reported) Entered as Reported by: PRASANTH TELLO on 04/08/231352 Gabapentin (Gabapentin) 800 Mg Tablet, 800 MG PO 0700,1400, (Reported) Entered as Reported by: PRASANTH TELLO on 04/08/23 135 Gabapentin (Gabapentin) 800 Mg Tablet, 1,200 MG PO HS, (Reported) Entered as Reported by: PRASANTH TELLO on 04/08/231352 Hydralazine HCl (Hydralazine HCl) 25 Mg Tablet, 25 MG PO TID, (Reported) Entered as Reported by: PRASANTH TELLO on 04/08/231352 Ibuprofen (Ibuprofen) 200 Mg Tablet, 400-800 MG PO Q8H PRN for PAIN-MILD (1-4), (Reported) Entered as Reported by: PRASANTH TELLO on 04/08/231352 Insulin Aspart (Novolog Flexpen) 100 Unit/Ml (3 Ml) Solution, 16 UNITS SC TIDAC Prescribed by: HERMILA SWAIN on 02/14/23 1028 Insulin Degludec (Tresiba Flextouch U-100) 100 Unit/Ml (3 Ml) Insuln.pen, 40 UNIT SQ HS Prescribed by: HERMILA SWAIN on 02/14/23 1028 Melatonin (Melatonin) 5 Mg Tablet, 5 MG PO HS, (Reported) Entered as Reported by: PRASANTH TELLO on 04/08/231352 Metformin HCl (Metformin HCl) 1,000 Mg Tablet, 1,000 MG PO BID, (Reported) Entered as Reported by: PRASANTH TELLO on 04/08/231352 Metoclopramide HCl (Reglan) 5 Mg Tablet, 5 MG PO QIDACHS PRN for NAUSEA/VOMITING Prescribed by: QING TREVIÑO on 05/30/23 1500 Multivitamin (Multivitamin) 1 Each Tablet, 1 EACH PO DAILY, (Reported) Entered as Reported by: PRASANTH TELLO on 04/08/231352 Omeprazole (Omeprazole) 40 Mg Capsule.dr, 40 MG PO DAILY PRN for HEARTBURN, (Reported) Entered as Reported by: PRASANTH TELLO on 04/08/231352 Oxcarbazepine (Oxcarbazepine) 300 Mg Tablet, 300 MG PO BID, (Reported) Entered as Reported by: PRASANTH TELLO on 04/08/23 135 Rosuvastatin Calcium (Rosuvastatin Calcium) 20 Mg Tablet, 20 MG PO DAILY, (Reported) Entered as Reported by: PRASANTH TELLO on 04/08/23 135 Topiramate (Topiramate) 50 Mg Tablet, 50 MG PO DAILY, (Reported) Entered as Reported by: PRASANTH TELLO on 04/08/23 135 Vit C/E/Zn/Coppr/Lutein/Zeaxan (Preservision Areds 2 Softgel) 250MG-90MG Capsule, 1 EACH PO BID WITH MEALS, (Reported) Entered as Reported by: PRASANTH TELLO on 04/08/23 135 Discontinued Medications Amoxicillin/Potassium Clav (Amox Tr-K Clv 875-125 mg Tab) 875 Mg-125 Mg Tablet, 1 EACH PO BID Discontinued Reason: No Longer Taking Prescribed by: HERMILA SWAIN on 04/10/23 1036 Last Action: Discontinued Bacillus Coagulans (Probiotics) 2.5 Billion Cell Tab.chew, 1 EACH PO BID WITH M EALS, (Reported) Discontinued Reason: No Longer Taking Entered as Reported by: PRASANTH TELLO on 04/08/23 135 Last Action: Discontinued Ondansetron (Ondansetron Odt) 4 Mg Tab.rapdis, 4 MG SL Q4H PRN for NAUSEA/VOMITING-2ND LINE Discontinued Reason: No Longer Taking Prescribed by: QING TREVIÑO on 05/30/23 1500 Last Action: Discontinued Review of Systems Review of Systems Constitutional: see HPI Past Mggtmir-Tlpkgv-Mvgvlx Hx Patient Social History Tobacco Use?: No Smoking Status: Former Smoker Substance use?: No Alcohol Use?: No Pt feels they are or have been: No Immunizations Up To Date Tetanus Booster (TDap): Unknown PED Vaccines UTD: No First/Initial COVID19 Vaccinat: UNKNOWN Second COVID19 Vaccination Dae: UNKNOWN Third COVID19 Vaccination Date: UNKNOWN Seasonal Allergies Seasonal Allergies: Yes Past Medical History Surgery/Hospitalization HX: htn, DI, cellulatis, neuropathy, depression, anxiety, copd Surgeries: Yes Abdominal, Appendectomy, Section, Gallbladder, Hysterectomy, Orthopedic Respiratory: Yes COPD Currently Using CPAP: No Currently Using BIPAP: No Cardiac: Yes Hypertension Neurological: Yes Neuropathy 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 Disorders: No Female 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 Disorders: Denies [employer] History: Hysterectomy, Menopausal Sexually Transmitted Disease: No HIV/AIDS: No Genitourinary: No Gastrointestinal: Yes Gastroesophageal Reflux, Hiatal Hernia Musculoskeletal: Yes Arthritis Endocrine: Yes Diabetes, Insulin dep HEENT: Yes Cataract Loss of Vision: Bilateral Hearing Impairment: Hard of Hearing Cancer: Yes Melanoma Psychosocial: Yes Anxiety, Depression Integumentary: Yes (venous stasis; CELLULITIS OF LEGS) Psoriasis Blood Disorders: No Adverse Reaction/Blood Tranf: No Family Medical History AIDS Alcoholism Arthritis Asthma Cataracts Coronary thrombosis Diabetes mellitus Drug abuse Glaucoma Psychosocial problem Respiratory disorder No Family History of: [place]'s disease Alzheimer's disease Aphasia Cancer of mouth Cardiovascular disease Colon cancer Completed stroke Congenital disease Congenital heart disease Cystic fibrosis Deafness or hearing loss Dementia Dysphasia Fibrocystic disease of breast Gastroenteritis Headache disorder Hypercholesterolemia Hypertension Infertility Kidney disease Myocardial infarction Neoplasm Not obtainable due to adoption Osteoporosis Parkinson's disease Prostate cancer Seizure disorder Severe allergy Thyroid disease Tuberculosis Visual disorder Cancer, Diabetes, Hypertension SOCIAL HISTORY: -SMOKED 1 PPD, QUIT -ETOH-OCCASIONAL USE -DRUGS-DENIES USE PAST SURGICAL HISTORY: - -HYSTERECTOMY -HERNIA REPAIR -LEFT KNEE SCOPE Physical Exam Vital Signs Vital Signs - First Documented 09/17/23 19:52 Temp 36.6 Pulse 73 Resp 16 B/P (MAP) 142/64 (90) Pulse Ox 95 O2 Delivery Room Air Capillary Refill : Less Than 3 Seconds Height, Weight, BMI Height: 5'65.00" Weight: 252lbs. 14.0oz. 114.366857xx; 45.00 BMI Method:Stated General Appearance: No Apparent Distress, WD/WN Neck: Normal Inspection, Supple Respiratory: Lungs Clear, Normal Breath Sounds, No Accessory Muscle Use, No Respiratory Distress Cardiovascular: Regular Rate, Rhythm Gastrointestinal: Normal Bowel Sounds, Non Tender, Soft Extremity: Normal Range of Motion, Non Tender, No Pedal Edema, Other (Chronic appearing discoloration of bilateral lower extremities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: Alert, Normal Mood/Affect Skin: Normal Color, Warm/Dry, Other (Chronic looking discoloration of bilateral lower extremities) Progress/Results/Core Measures Suspected Sepsis SIRS Temperature: Pulse: 73 Respiratory Rate: 16 Laboratory Tests 09/17/23 20:40: White Blood Count 11.4H Blood Pressure 142 /64 Mean: 90 Laboratory Tests 09/17/23 20:40: Creatinine 0.87, Platelet Count 251, Total Bilirubin 0.4 Results/Orders Lab Results Laboratory Tests Test 09/17/23 20:40 09/17/23 21:55 Range/Units White Blood Count 11.4 H 4.3-11.0 10^3/uL Red Blood Count 5.44 H 3.80-5.11 10^6/uL Hemoglobin 15.8 11.5-16.0 g/dL Hematocrit 48 35-52 % Mean Corpuscular Volume 88 80-99 fL Mean Corpuscular Hemoglobin 29 25-34 pg Mean Corpuscular Hemoglobin Concent 33 32-36 g/dL Red Cell Distribution Width 14.6 H 10.0-14.5 % Platelet Count 251 130-400 10^3/uL Mean Platelet Volume 8.7 L 9.0-12.2 fL Immature Granulocyte % (Auto) 0 % Neutrophils (%) (Auto) 70 42-75 % Lymphocytes (%) (Auto) 18 12-44 % Monocytes (%) (Auto) 7 0-12 % Eosinophils (%) (Auto) 4 0-10 % Basophils (%) (Auto) 1 0-10 % Neutrophils # (Auto) 8.0 H 1.8-7.8 10^3/uL Lymphocytes # (Auto) 2.1 1.0-4.0 10^3/uL Monocytes # (Auto) 0.8 0.0-1.0 10^3/uL Eosinophils # (Auto) 0.5 H 0.0-0.3 10^3/uL Basophils # (Auto) 0.1 0.0-0.1 10^3/uL Immature Granulocyte # (Auto) 0.1 0.0-0.1 10^3/uL Sodium Level 138 135-145 MMOL/L Potassium Level 4.1 3.6-5.0 MMOL/L Chloride Level 101 98-107 MMOL/L Carbon Dioxide Level 28 21-32 MMOL/L Anion Gap 9 5-14 MMOL/L Blood Urea Nitrogen 12 7-18 MG/DL Creatinine 0.87 0.60-1.30 MG/DL Estimat Glomerular Filtration Rate 72 BUN/Creatinine Ratio 14 Glucose Level 104 70-105 MG/DL Calcium Level 9.4 8.5-10.1 MG/DL Corrected Calcium 9.7 8.5-10.1 MG/DL Total Bilirubin 0.4 0.1-1.0 MG/DL Aspartate Amino Transf (AST/SGOT) 13 5-34 U/L Alanine Aminotransferase (ALT/SGPT) 9 0-55 U/L Alkaline Phosphatase 112 40-136 U/L Total Protein 7.0 6.4-8.2 GM/DL Albumin 3.6 3.2-4.5 GM/DL Urine Color YELLOW Urine Clarity CLEAR Urine pH 7.5 5-9 Urine Specific [place] 1.015 L 1.016-1.022 Urine Protein 1+ H NEGATIVE Urine Glucose (UA) NEGATIVE NEGATIVE Urine Ketones NEGATIVE NEGATIVE Urine Nitrite NEGATIVE NEGATIVE Urine Bilirubin NEGATIVE NEGATIVE Urine Urobilinogen 4.0 < = 1.0 MG/DL Urine Leukocyte Esterase TRACE H NEGATIVE Urine RBC (Auto) 1+ H NEGATIVE Urine RBC 2-5 H /HPF Urine WBC 0-2 /HPF Urine Squamous Epithelial Cells 5-10 /HPF Urine Crystals NONE /LPF Urine Bacteria TRACE /HPF Urine Casts NONE /LPF Urine Mucus SMALL H /LPF Urine Culture Indicated NO My Orders Orders - FILOMENA TURNER APRN Ua Culture If Indicated (09/17/23 20:09) Cbc And Automated Diff (09/17/23 20:28) Comprehensive Metabolic Panel (09/17/23 20:28) Ed Iv/Invasive Line Start (09/17/23 20:28) Ns Iv 500 Ml (Ns Iv 500 Ml) (09/17/23 20:30) Straight Cath For Spec.-Adult (09/17/23 21:57) Urine Culture (09/17/23 22:19) Magnesium Citrate Oral Soln (Citrate Of (09/17/23 22:30) Cephalexin Capsule (Cephalexin Capsule) (09/17/23 22:30) Medications Given in ED Current Medications Medications Dose Ordered Sig/Minal Route Start Time Stop Time Status Last Admin Dose Admin Cephalexin HCl 500 mg ONCE ONCE PO 09/17/23 22:30 09/17/23 22:31 DC 09/17/23 22:29 500 MG Magnesium Citrate 300 ml ONCE ONCE PO 09/17/23 22:30 09/17/23 22:31 DC 09/17/23 22:29 300 ML Sodium Chloride 500 ml @ 0 mls/hr Q0M ONCE IV 09/17/23 20:30 09/17/23 20:31 DC 09/17/23 20:41 0 MLS/HR Vital Signs/I&O 09/17/23 19:52 Temp 36.6 Pulse 73 Resp 16 B/P (MAP) 142/64 (90) Pulse Ox 95 O2 Delivery Room Air Capillary Refill : Less Than 3 Seconds Blood Pressure Mean: 90 Progress Note : Progress Note ReviewedPatient seen and evaluated, resting comfortably in bed, no acute distress. Based on exam and symptoms, work-up initiated included CBC, CMP, UA. 500 mL of IV fluids ordered. I considered a CT of the abdomen and pelvis due to new onset constipation, but deferred due to normal bowel sounds, and no abdominal pain. Constipation likely related to Mounjaro, patient instructed to discuss her monitor with her primary care provider to determine if this is a cause of her constipation. It is likely the cause of her decreased appetite as well. 2225 Labs reviewed. CBC shows mildly elevated BBC 11.4, slightly elevated RBC 5.44. CMP grossly normal. Urinalysis shows 1+ protein, trace leukocytes, 1+ RBCs, 0-2 WBCs, 5-10 epithelial cells, trace bacteria. Due to symptoms of burning after urination, will go ahead and treat for urinary tract infection. Results discussed with patient. Will give patient a magnesium citrate to take home and give her the first dose of the antibiotic tonight. Patient is stable for discharge. All questions sought and answered. Discharge instructions and return precautions provided. Departure Impression Primary Impression: Urinary tract infection Additional Impression: Constipation Disposition: 01 HOME, SELF-CARE Condition: Stable Departure-Patient Inst. Decision time for Depature: 22:25 Referrals: KAYLA GUTIERREZ MD (PCP/Family) Primary Care Physician Patient Instructions: Urinary Tract Infection, Adult (DC) Add. Discharge Instructions: Complete full course of antibiotic as prescribed. Drink the magnesium citrate when you get home, you may wait till tomorrow morning if you prefer. Follow-up with your primary care provider and discuss your Mounjaro. This may be the cause of your constipation. Return for severe abdominal pain, or any other new, concerning, or worsening symptoms. All discharge instructions reviewed with patient and/or family. Voiced understanding. Scripts Cephalexin (Cephalexin) 500 Mg Tablet 500 MG PO BID for 5 Days, #10 TAB 0 Refills Prov: FILOMENA TURNER APRN 09/17/23 Copy Copies To 1: KAYLA GUTIERREZ MD, BRITTANY R APRN Sep 17, 2023 20:27
[2023-09-17] MEDS ORDERED: NS IV 500 ML 500 ML IV ONE (20:30)
[2023-09-17 20:49] LABS: BASOPHILS # (AUTO) 0.1 10^3/uL (0.0-0.1); BASOPHILS % (AUTO) 1 % (0-10); EOSINOPHILS # (AUTO) 0.5 10^3/uL (0.0-0.3); EOSINOPHILS % (AUTO) 4 % (0-10); HEMATOCRIT 48 % (35-52); HEMOGLOBIN 15.8 g/dL (11.5-16.0); LYMPHOCYTES # (AUTO) 2.1 10^3/uL (1.0-4.0); LYMPHOCYTES % (AUTO) 18 % (12-44); MEAN CORPUSCULAR HEMOGLOBIN 29 pg (25-34); MEAN CORPUSCULAR HGB CONC 33 g/dL (32-36); MEAN CORPUSCULAR VOLUME 88 fL (80-99); MEAN PLATELET VOLUME 8.7 fL (9.0-12.2); MONOCYTES # (AUTO) 0.8 10^3/uL (0.0-1.0); MONOCYTES % (AUTO) 7 % (0-12); NEUTROPHILS % (AUTO) 70 % (42-75); PLATELET COUNT 251 10^3/uL (130-400); WHITE BLOOD COUNT 11.4 10^3/uL (4.3-11.0)
[2023-09-17 20:54] LABS: ALBUMIN 3.6 GM/DL (3.2-4.5); POTASSIUM 4.1 MMOL/L (3.6-5.0)
[2023-09-17 20:56] LABS: CALCIUM 9.4 MG/DL (8.5-10.1)
[2023-09-17 20:59] LABS: BILIRUBIN,TOTAL 0.4 MG/DL (0.1-1.0)
[2023-09-17 21:00] LABS: CREATININE SERUM 0.87 MG/DL (0.60-1.30)
[2023-09-17 22:15] LABS: BACTERIA,URINE TRACE /HPF; BILIRUBIN,URINE NEGATIVE (NEGATIVE); CLARITY,URINE CLEAR; COLOR,URINE YELLOW; GLUCOSE, URINE (UA) NEGATIVE (NEGATIVE); KETONES,URINE NEGATIVE (NEGATIVE); LEUKOCYTE ESTERASE ,URINE TRACE (NEGATIVE); NITRITE,URINE NEGATIVE (NEGATIVE); PH,URINE 7.5 (5-9); PROTEIN,URINE 1+ (NEGATIVE); WBC,URINE 0-2 /HPF
[2023-09-17] MEDS ORDERED: CEPH500T PO (22:26)
[2023-09-17] MEDS ORDERED: MAGNESIUM CITRATE 300 ML BTL PO ONE (22:30)
[2023-09-17] MEDS ORDERED: CEPHALEXIN 250 MG CAPSULE PO ONE (22:30)
[2023-09-17 22:31] VITALS: BP 155/67
== END 2023-09-17 22:37 | disposition home or self-care (01) ==
LOC: EDUNIT# 19:31 → ER 19:33
DX: K59.00 Constipation, unspecified (principal); N39.0 Urinary tract infection, site not specified; Z87.891 Personal history of nicotine dependence
CPT/HCPCS: 36415; 80053; 81000; 85025; 87088; 96360